=== PATIENT | female | born 1970 | race Caucasian/White ===

== ENCOUNTER 2019-09-27 11:05 | Emergency (ER) | payer MEDICARE, MEDICAID, SELFPAY ==
[2019-09-27 11:07] VITALS: BP 157/105; PULSE 104; RESP 18; O2SAT 97; BMI 21.7
--- NOTE | 2019-09-27 11:10 | ED_ITS ---
Entered by Jennifer Cervantes, acting as scribe for Rianna Schneider MD HPI - Neck Pain/Injury General: Chief Complaint: Ear Stated Complaint: NECK PAIN Time Seen by Provider: 09/27/19 11:10 Source: patient Mode of arrival: ambulatory Limitations: no limitations History of Present Illness: HPI Narrative: 49 yo female presents to ED with complaints of L ear pain and L sided neck pain. She said she woke with an ear ache yesterday and this morning woke with increased pain down the L side of her neck that radiates to the R side of her neck. She is unable to turn her head to the left. She said last week she had a lot of sinus problems so she took OTC sinus medication. complaint: neck pain and other (L ear pain) Onset (ago): day(s) (2) Place: home Radiation: right lateral Severity: severe and constant Quality: stabbing and throbbing Duration: constant Relieving factors: none Exacerbating factors: movement of neck Context: other (R ear pain and infection) Associated symptoms: Reports swollen glands; Denies headache(s) or nausea Treatments prior to arrival: none Review of Systems Const: Denies: fever or chills Eyes: Denies: change in vision ENMT: Denies: throat pain or mouth pain Card: Denies: chest pain Resp: Denies: shortness of breath GI: Denies: abdominal pain, nausea, vomiting or diarrhea : Denies: difficulty urinating Musc: Denies: back pain Skin/Breast: Denies: rash Neuro: Denies: headache or behavioral changes Psych: Denies: depression Endo: Denies: excessive urination Ba/Lymph: Denies: easy bruising All/Imm: Denies: hives PFSH ED PFSH: Statuses (acute, chronic, etc) shown below reflect problem list status as previously entered and may not be historically accurate Social History Smoking and tobacco status: current every day smoker Physical Exam Const: COMMON NORMALS: no apparent distress and healthy appearing HENMT: COMMON NORMALS: normocephalic and external nose normal HEAD & SCALP: normocephalic NOSE: external nose normal and no nasal discharge (nasal disch age) OTHER: otitis media to left ear Eye: COMMON NORMALS: PERRL PUPIL: Yes PERRL Neck/C-Spine: COMMON NORMALS: full ROM OTHER: Tenderness along left neck has pain with range of motion. Tenderness is along trapezius muscle Chest: COMMONS NORMALS: inspection of chest normal Resp: COMMON NORMALS: normal respiratory effort and clear to auscultation bilaterally AUSCULTATION: clear to auscultation bilaterally Cardio: COMMON NORMALS: regular rate and regular rhythm RATE: regular rate RHYTHM: regular rhythm GI: COMMON NORMALS: soft to palpation PALPATION: Yes soft Extremity: COMMON NORMALS: normal to inspection, full ROM and normal capillary refill Psych: COMMON NORMALS: mental status grossly normal and cooperative Skin: COMMON NORMALS: no rashes or lesions noted GENERAL SKIN EXAM: no rashes or lesions noted Course Vital Signs: Vital signs: Vital Signs Pulse Rate 104 H 09/27/19 11:07 Respiratory Rate 18 09/27/19 11:07 Blood Pressure 157/105 09/27/19 11:07 Pulse Oximetry 97 09/27/19 11:07 MDM - Neck Pain/Injury MDM Narrative: Medical decision making narrative: Patient presents with a neck sprain strain that is likely muscular. She also has an ear infection. We will place her on Naprosyn along with Robaxin and Keflex. She is to follow-up with primary care doctor in 3 to 5 days and return if worsening. Discharge Plan Discharge Patient Disposition: Home, Self-Care Clinical Impression: Neck strain Otitis media Qualifiers: Otitis media type: unspecified Chronicity: acute Qualified Code(s): H66.90 - Otitis media, unspecified, unspecified ear Condition: Stable Prescriptions: New Robaxin-750 750 mg tablet 750 mg PO Q6H Qty: 30 RF: 0 EC-Naprosyn 500 mg tablet,delayed release (DR/EC) 500 mg PO BID PRN (Reason: pain) Qty: 20 RF: 0 Keflex 500 mg capsule 500 mg PO Q6H 7 Days Qty: 28 RF: 0 No Action alprazolam 1 mg Tablet 1 mg PO BID RF: 0 mirtazapine 15 mg Tablet 15 mg PO QPM RF: 0 Cymbalta 60 mg Capsule,Delayed Release(Dr/Ec) 60 mg PO BID RF: 0 Discharge Orders: Discharge Order (Routine); Ordered 09/27/19 Ordered By: Rianna Schneider Referrals: Angie Dobbs MD [Family Provider] - 4-7 days Discharge Diet: Advance as tolerated Discharge Activity: Resume usual activity Patient Instructions: Cervical Spine Strain (ED) Discharge Date/Time: 09/27/19 11:24 Coding Level of Care Code ED Overcoiler for 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 The documentation recorded by the Helen boston Valerie R, accurately reflects the service I personally performed and the decisions made by Wyatt avendano Korby, MD Sep 27, 2019 11:05
[2019-09-27] MEDS: HYDROcodone-acetaminophen 7.5-325 mg Tablet 1 TAB PO (11:23)
== END 2019-09-27 11:24 | disposition home or self-care (01) ==
LOC: ER 11:23
PROVIDERS: Emergency Provider Emergency Medicine; Family Provider Family Medicine
DX: S16.1XXA Strain of muscle, fascia and tendon at neck level, initial encounter (principal); H66.90 Otitis media, unspecified, unspecified ear; F17.210 Nicotine dependence, cigarettes, uncomplicated; X58.XXXA Exposure to other specified factors, initial encounter
CPT/HCPCS: 99281

== ENCOUNTER 2019-09-27 17:54 | Emergency (ER) | payer MEDICARE, MEDICAID, SELFPAY ==
[2019-09-27 17:55] VITALS: RESP 16; BMI 21.7
[2019-09-27 18:06] VITALS: BP 157/99; PULSE 110; RESP 16; TEMP 36.7; O2SAT 96
[2019-09-27] MEDS: predniSONE 20 mg Tablet PO (18:18)
[2019-09-27] MEDS: ciprofloxacin 500 mg Tablet PO (18:18)
--- NOTE | 2019-10-18 02:22 | ED_ITS ---
HPI - Skin/Abscess/Foreign Bdy General: Chief complaint: Skin/Abscess/Foreign Body Stated complaint: REDNESS ON HER FACE Time Seen by Provider: 09/27/19 18:00 History of Present Illness: HPI narrative: Patient has reddened areas to her face. Onset (ago): day(s) Associated symptoms: Deny chills, fever(s), nausea or vomiting Review of Systems Narrative: Reddened areas to face Const: Denies: fever, chills or body aches Eyes: Denies: change in vision or blurry vision ENMT: Denies: throat pain or nasal congestion Card: Denies: chest pain or shortness of breath on exertion Resp: Denies: shortness of breath, productive cough or non-productive cough GI: Denies: abdominal pain, nausea or vomiting Musc: Denies: extremity pain Skin/Breast: Denies: rash Neuro: Denies: headache Psych: Denies: anxiety or depression Ba/Lymph: Denies: easy bruising PFSH ED PFSH: Social History Smoking and tobacco status: current every day smoker Physical Exam Const: COMMON NORMALS: no apparent distress, average body habitus and oriented x3 HENMT: COMMON NORMALS: normocephalic HEAD & SCALP: normal to inspection and normocephalic FACE & SINUS: normal facial exam Eye: COMMON NORMALS: conjunctivae normal GENERAL EYE: normal appearance of both eyes CONJUNCTIVA: Yes conjunctivae normal Neck/C-Spine: COMMON NORMALS: no JVD Chest: COMMONS NORMALS: inspection of chest normal Resp: COMMON NORMALS: normal respiratory effort and clear to auscultation bilaterally AUSCULTATION: clear to auscultation bilaterally Cardio: COMMON NORMALS: no JVD, regular rate and regular rhythm RATE: regular rate RHYTHM: regular rhythm GI: COMMON NORMALS: normal to inspection, nondistended, normoactive bowel sounds Extremity: COMMON NORMALS: normal to inspection and full ROM Neuro: COMMON NORMALS: oriented x3 Skin: NARRATIVE SKIN EXAM: Mild erythema to right side of face pimply in nature Course Vital Signs: Vital signs: Vital Signs Temperature 98.0 F 09/27/19 18:06 Pulse Rate 110 H 09/27/19 18:06 Respiratory Rate 16 09/27/19 18:06 Blood Pressure 157/99 09/27/19 18:06 Pulse Oximetry 96 09/27/19 18:06 Discharge Plan Discharge Patient Disposition: Home, Self-Care Clinical Impression: Hives Condition: Stable Prescriptions: New ciprofloxacin HCl 500 mg tablet 500 mg PO BID Qty: 14 RF: 0 Medrol (Jayce) 4 mg tablets,dose pack See Rx Instructions .ROUTE .COMPLEX Qty: 21 RF: 0 No Action mirtazapine 15 mg tablet 15 mg PO QPM Qty: 30 RF: 0 alprazolam 1 mg Tablet 1 mg PO BID RF: 0 Cymbalta 60 mg Capsule,Delayed Release(Dr/Ec) 60 mg PO BID RF: 0 Robaxin-750 750 mg tablet 750 mg PO Q6H Qty: 30 RF: 0 EC-Naprosyn 500 mg tablet,delayed release (DR/EC) 500 mg PO BID PRN (Reason: pain) Qty: 20 RF: 0 Flagyl 500 mg tablet 500 mg PO Q8H Qty: 30 RF: 0 Zofran 4 mg tablet 4 mg PO Q6H PRN (Reason: nausea and vomiting) Qty: 10 RF: 0 Discharge Orders: Discharge Order (Routine); Ordered 09/27/19 Ordered By: Bong Martinez Referrals: Angie Dobbs MD [Family Provider] - Discharge Diet: Usual diet Discharge Activity: Increase activity as tolerated Patient Instructions: Allergic Reaction Activity Restrictions/Additional Instructions: Follow-up with medical provider as directed. Take medications as prescribed. Return to the ER or your medical provider if condition worsens. Please read and understand discharge instructions. If any questions ask please. Stop Keflex. Discharge Date/Time: 09/27/19 18:20 Coding Level of Care Code ED Information Security for 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
== END 2019-09-27 18:20 | disposition home or self-care (01) ==
PROVIDERS: Emergency Provider Nurse Practitioner Family; Family Provider Family Medicine
DX: L50.9 Urticaria, unspecified (principal); F17.210 Nicotine dependence, cigarettes, uncomplicated
CPT/HCPCS: 99281; J7512

== ENCOUNTER 2019-10-05 03:00 | Emergency (ER) | payer MEDICARE, MEDICAID, SELFPAY ==
[2019-10-05] VITALS (18 sets, daily range): BP systolic 151–156; BP diastolic 104–119; PULSE 85–116; RESP 11–24; TEMP 36.7; O2SAT 96–97; BMI 21.7
--- NOTE | 2019-10-05 03:18 | ED_ITS ---
Entered by Yady Kaiser, acting as scribe for Bobo Mcdonald DO HPI - Abdominal Pain General: Chief Complaint: Abdominal Pain Stated Complaint: ABD PAIN Time Seen by Provider: 10/05/19 03:05 Source: patient Mode of arrival: ambulatory History of Present Illness: HPI narrative: 49 y/o female presents to the ED with complaint of abd pain and diarrhea. Pt states this started abruptly and w ruddy her from sleep. The pain starts in her LUQ/epigastric area and radiates into her left axilla and around to her back. She was recently seen here and dx with shingles. Pt states this pain is worse than the pain from the shingles. MD elicited complaint: abdominal pain Onset (ago): hour(s) Pain Consistency: constant Location: LUQ Exacerbating factors: movement Relieving factors: nothing Associated Symptoms: Reports diarrhea; Denies chills, dysuria, fever(s), hematochezia, hematuria, melena, nausea and vomiting Review of Systems Const: Denies: fever or chills Eyes: Denies: change in vision or blurry vision ENMT: Reports: facial/sinus pain; Denies: painful swallowing, swelling of lips/tongue, bleeding gums, dental pain, nose bleeds or post nasal drip Card: Denies: chest pain, palpitations, irregular heart rhythm, edema, swelling of feet/ankles, shortness of breath on exertion or shortness of breath when lying down Resp: Denies: shortness of breath, productive cough, non-productive cough or wheezing GI: Reports: abdominal pain (epigastric/ LUQ) and diarrhea; Denies: nausea, vomiting, rectal pain, blood in stool or black tarry stool : Denies: painful urination, urinary frequency, urinary urgency or blood in urine Musc: Reports: back pain; Denies: neck pain, redness or joint warmth Skin/Breast: Reports: rash (shingles - left face); Denies: itching or redness Neuro: Denies: headache, dizziness or vertigo PFSH ED PFSH: Statuses (acute, chronic, etc) shown below reflect problem list status as previously entered and may not be historically accurate Social History Smoking and tobacco status: current every day smoker Physical Exam Const: GENERAL APPEARANCE: well developed ORIENTATION/CONSCIOUSNESS: Yes oriented to person, Yes oriented to place and Yes oriented to time DONNAMT: COMMON NORMALS: normocephalic, external ears normal and external nose normal HEAD & SCALP: normocephalic; no scalp tenderness FACE & SINUS: normal facial exam NOSE: external nose normal and no nasal discharge EXTERNAL EAR: Yes external ears normal Eye: COMMON NORMALS: PERRL, EOMs intact bilaterally and conjunctivae normal EYELID: eyelids normal CONJUNCTIVA: Yes conjunctivae normal PUPIL: Yes PERRL Neck/C-Spine: COMMON NORMALS: full ROM GENERAL: No tracheal deviation Chest: CHEST: Yes tenderness (epigastric) Resp: COMMON NORMALS: clear to auscultation bilaterally EFFORT & INSPECTION: No tachypneic, No respiratory distress, No retractions, No uses accessory muscles and No tracheal deviation AUSCULTATION: clear to auscultation bilaterally, no rhonchi, no wheezes and lung sounds not diminished Cardio: COMMON NORMALS: regular rate and regular rhythm RATE: regular rate RHYTHM: regular rhythm HEART SOUNDS: no murmurs PERIPHERAL PULSES: radial pulses present GI: COMMON NORMALS: soft to palpation INSPECTION: No abdominal distension AUSCULTATION: No hyperactive bowel sounds and No hypoactive bowel sounds PALPATION: Yes soft, Yes tender (LUQ), No guarding and No rigid PERCUSSION: no dullness to percussion and no tympanic to percussion Neuro: SENSORIUM/ORIENTATION: Yes oriented to person, Yes oriented to place and Yes oriented to time Psych: APPEARANCE: Yes unkempt ACTIVITY/MOTOR BEHAVIOR: Yes fidgeting Skin: NARRATIVE SKIN EXAM: shingles (vesicular) rash to left face and neck Course ED course: 49-year-old lady who is here frequently. She complains of epigastric mainly belly pain radiating into her back. Also radiates around her left side. Her white blood cell count was elevated. Her other labs are benign. Her CT shows an intermittent fluid distention of the small bowel indicative of mild enteritis with ileus. There is no obstruction. Vital Signs: Vital signs: Vital Signs Temperature 98.1 F 10/05/19 03:16 Pulse Rate 91 10/05/19 05:05 Respiratory Rate 17 10/05/19 05:05 Blood Pressure 151/107 10/05/19 04:00 Pulse Oximetry 96 10/05/19 03:45 MDM - Abdominal Pain Lab Data: Labs: Lab Results 10/05/19 10/05/19 10/05/19 Range/Units 03:50 04:25 04:25 WBC 16.3 H (4.0-10.0) 10^3/ uL RBC 3.87 L (4.1-5.3) 10^6/u L Hgb 11.3 L (11.5-15.3) g/dL Hct 34.9 L (37.0-47.0) % MCV 90.2 (81-99) fL MCH 29.2 (28.0-34.0) pg MCHC 32.4 (30.0-36.0) g/dL RDW 15.9 H (12.1-15.1) % Plt Count 404 H (130-400) 10^3/c mm MPV 9.3 (7.4-10.4) fL Neut % (Auto) 74.7 % Lymph % (Auto) 15.2 % Meagher % (Auto) 6.5 % Eos % (Auto) 2.8 % Baso % (Auto) 0.2 % Neut # (Auto) 12.2 H (1.8-7.7) 10^3/u L Lymph # (Auto) 2.5 (0.8-4.8) 10^3/u L Meagher # (Auto) 1.1 H (0.2-0.9) 10^3/u L Eos # (Auto) 0.5 (0.0-0.8) 10^3/u L Baso # (Auto) 0.0 (0.0-0.1) 10^3/u L Nucleated RBC % (a uto) 0 % Nucleated RBCs # 0.0 /100WBC Sodium 135 L (136-145) mmol/L Potassium 4.1 (3.5-5.1) mmol/L Chloride 100 (98-107) mmol/L Carbon Dioxide 25 (22-29) mmol/L Anion Gap 14.1 (5-19) BUN 19 (6-20) mg/dL Creatinine 0.8 (0.5-0.9) mg/dL GFR Calculation 75.6 L (90-130) mL/min Glucose 107 (74-109) mg/dL Calcium 9.0 (8.5-10.5) mg/dL Total Bilirubin 0.2 (0.15-1.2) mg/dL AST 19 (0-32) U/L ALT 12 (0-33) U/L Alkaline Phosphata se 105 (35-105) IU/L C-Reactive Protein 6.2 H (0.0-4.9) mg/L Total Protein 7.4 (6.6-8.7) g/dL Albumin 3.9 (3.5-5.2) g/dL Globulin 3.5 (1.3-4.6) g/dL Lipase 44 (13-60) U/L HCG, Qual (Negative) Urine Color Yellow (Yellow) Urine Appearance Clear (CLEAR) Urine pH 5 (5-7) Ur Specific Gravit y 1.020 (1.005-1.030) Urine Protein Neg (Negative) Urine Glucose (UA) Norm (Normal) Urine Ketones Negative (Negative) Urine Occult Blood Neg (Negative) Urine Nitrate Negative (Negative) Urine Bilirubin Neg (NEGATIVE) Urine Urobilinogen Norm (Negative) mg/dL Ur Leukocyte Destiny ase Negative (Negative) Urine Opiates Scre en (Negative) ng/mL Ur Barbiturates Sc reen (Negative) ng/mL Ur Phencyclidine S crn (Negative) ng/mL Ur Amphetamines Sc reen (Negative) ng/mL U Benzodiazepines Scrn (Negative) ng/mL Urine Cocaine Scre en (Negative) ng/mL U Marijuana (THC) Screen (Negative) ng/mL 10/05/19 10/05/19 Range/Units 04:25 04:30 WBC (4.0-10.0) 10^3/ uL RBC (4.1-5.3) 10^6/u L Hgb (11.5-15.3) g/dL Hct (37.0-47.0) % MCV (81-99) fL MCH (28.0-34.0) pg MCHC (30.0-36.0) g/dL RDW (12.1-15.1) % Plt Count (130-400) 10^3/c mm MPV (7.4-10.4) fL Neut % (Auto) % Lymph % (Auto) % Meagher % (Auto) % Eos % (Auto) % Baso % (Auto) % Neut # (Auto) (1.8-7.7) 10^3/u L Lymph # (Auto) (0.8-4.8) 10^3/u L Meagher # (Auto) (0.2-0.9) 10^3/u L Eos # (Auto) (0.0-0.8) 10^3/u L Baso # (Auto) (0.0-0.1) 10^3/u L Nucleated RBC % (a uto) % Nucleated RBCs # /100WBC Sodium (136-145) mmol/L Potassium (3.5-5.1) mmol/L Chloride (98-107) mmol/L Carbon Dioxide (22-29) mmol/L Anion Gap (5-19) BUN (6-20) mg/dL Creatinine (0.5-0.9) mg/dL GFR Calculation (90-130) mL/min Glucose (74-109) mg/dL Calcium (8.5-10.5) mg/dL Total Bilirubin (0.15-1.2) mg/dL AST (0-32) U/L ALT (0-33) U/L Alkaline Phosphata se (35-105) IU/L C-Reactive Protein (0.0-4.9) mg/L Total Protein (6.6-8.7) g/dL Albumin (3.5-5.2) g/dL Globulin (1.3-4.6) g/dL Lipase (13-60) U/L HCG, Qual Negative (Negative) Urine Color (Yellow) Urine Appearance (CLEAR) Urine pH (5-7) Ur Specific Gravit y (1.005-1.030) Urine Protein (Negative) Urine Glucose (UA) (Normal) Urine Ketones (Negative) Urine Occult Blood (Negative) Urine Nitrate (Negative) Urine Bilirubin (NEGATIVE) Urine Urobilinogen (Negative) mg/dL Ur Leukocyte Destiny ase (Negative) Urine Opiates Scre en Negative (Negative) ng/mL Ur Barbiturates Sc reen Negative (Negative) ng/mL Ur Phencyclidine S crn Negative (Negative) ng/mL Ur Amphetamines Sc reen Negative (Negative) ng/mL U Benzodiazepines Scrn Negative (Negative) ng/mL Urine Cocaine Scre en Negative (Negative) ng/mL U Marijuana (THC) Screen Positive H (Negative) ng/mL Discharge Plan Discharge Patient Disposition: Home, Self-Care Clinical Impression: Enteritis Condition: Stable Prescriptions: New metronidazole [Flagyl] 500 mg tablet 500 mg PO Q8H Qty: 30 RF: 0 ondansetron HCl [Zofran] 4 mg tablet 4 mg PO Q6H PRN (Reason: nausea and vomiting) Qty: 10 RF: 0 ketorolac 10 mg tablet 10 mg PO Q6H PRN (Reason: pain) 3 Days RF: 0 No Action alprazolam 1 mg Tablet 1 mg PO BID RF: 0 mirtazapine 15 mg Tablet 15 mg PO QPM RF: 0 Cymbalta 60 mg Capsule,Delayed Release(Dr/Ec) 60 mg PO BID RF: 0 Robaxin-750 750 mg tablet 750 mg PO Q6H Qty: 30 RF: 0 EC-Naprosyn 500 mg tablet,delayed release (DR/EC) 500 mg PO BID PRN (Reason: pain) Qty: 20 RF: 0 ciprofloxacin HCl 500 mg tablet 500 mg PO BID Qty: 14 RF: 0 Medrol (Jayce) 4 mg tablets,dose pack See Rx Instructions .ROUTE .COMPLEX Qty: 21 RF: 0 Discharge Orders: Discharge Order (Routine); Ordered 10/05/19 Ordered By: Bobo Mcdonald Referrals: Angie Dobbs MD [Family Provider] - 4-7 days Discharge Diet: Advance as tolerated and Clear Liquid Discharge Activity: Increase activity as tolerated Patient Instructions: Gastroenteritis (ED) Activity Restrictions/Additional Instructions: Return for fever greater than 100 despite 3 doses of antibiotics, worsening pain despite treatment, vomiting liquids or medications despite treatment, other concerning symptoms. Stop your Naprosyn (naproxen) while taking the pain medication you were prescribed. Coding Level of Care Code ED Vitreo Retinal Surgeon for Chg Fwd The documentation recorded by the Job boston Ashley, accurately reflects the service I personally performed and the decisions made by Harry avendano Jeremy John, DO Oct 05, 2019 03:00
--- NOTE | 2019-10-05 03:43 | CTR_ITS ---
PROCEDURE INFORMATION: Exam: CT Abdomen And Pelvis With Contrast Exam date and time: 10/05/2019 4:15 AM Age: 49 years old Clinical indication: Abdominal pain; Epigastric; Prior surgery; Surgery date: 6+ months; Surgery type: Gb, pelvis; Additional info: Abd pain TECHNIQUE: Imaging protocol: Computed tomography of the abdomen and pelvis with intravenous contrast. Total DLP: 587.13 mGy-cm Radiation optimization: All CT scans at this facility use at least one of these dose optimization techniques: automated exposure control; mA and/or kV adjustment per patient size (includes targeted exams where dose is matched to clinical indication); or iterative reconstruction. Contrast material: OMNI 300; Contrast volume: 95 ml; Contrast route: IV; COMPARISON: CT abdomen pelvis w con* [id number] 04/27/2019 9:40 AM FINDINGS: Lungs: Lung bases are clear. Liver: The liver is normal. Gallbladder and bile ducts: The gallbladder is absent. There is ectasia of the common bile duct and central intrahepatic ducts. Pancreas: The pancreas is unremarkable. Spleen: The spleen is unremarkable. Adrenals: The adrenal glands are unremarkable. Kidneys and ureters: There are simple cysts in the left kidney measuring up to 16 mm diameter. No follow-up is indicated. The right kidney and ureter are unremarkable. There is no hydronephrosis. No stones. Stomach and bowel: The stomach is unremarkable. Distal small bowel is mildly diffusely fluid distended. Proximal small bowel is intermittently distended. There is no bob small-bowel dilation. No pathologic wall thickening. The colon is unremarkable. Appendix: The appendix is normal. Intraperitoneal space: There is no free air or significant intraperitoneal free fluid. Vasculature: There is mild aortic atherosclerotic disease. Lymph nodes: There is no lymphadenopathy in the retroperitoneum, mesentery, pelvis or inguinal regions. Bladder: The urinary bladder is unremarkable. Reproductive: The uterus is absent. There is no adnexal mass or large cyst. Bones/joints: There is mild lumbar degenerative disc disease. Reconstruction plates and screws in the pelvis. No acute fracture. Normal femoral acetabular alignment. Soft tissues: There is a very small midline upper abdominal ventral hernia containing fat. CT/CT abdomen pelvis w con* [id number] IMPRESSION: 1. Nonspecific intermittent fluid distention of the small bowel. Normal versus mild enteritis with ileus. No sign of obstruction. 2. Incidental findings above. COMMENT: Consistent with the [employer]'s Incidental Findings Committee white paper (J Am Marga Radiol 2018): Any incidental cystic renal lesion classified in this report as too small to characterize or simple appearing is likely a benign cyst. No follow-up imaging is recommended for these lesions per consensus recommendations based on imaging criteria. Radiation Dose CTDIVOL = (mGy): DLP = 587.13 (mGy-cm)
[2019-10-05] MEDS: iohexol 300 mg/mL 100 mL Btl IV (04:16)
[2019-10-05] MEDS: HYDROmorphone 1 mg/mL INJ 1 mL IVP ×2 (04:30→06:07)
[2019-10-05] MEDS: ketorolac 30 mg/mL INJ IVP (04:30)
[2019-10-05 04:34] LABS: Basophils % 0.2 %; Eosinophils # 0.5 10^3/uL (0.0-0.8); Eosinophils % 2.8 %; Hematocrit 34.9 % (37.0-47.0); Hemoglobin 11.3 g/dL (11.5-15.3); Lymphocytes # 2.5 10^3/uL (0.8-4.8); Lymphocytes % 15.2 %; Mean Corpuscular HGB Conc 32.4 g/dL (30.0-36.0); Mean Corpuscular Hemoglobin 29.2 pg (28.0-34.0); Mean Corpuscular Volume 90.2 fL (81-99); Mean Platelet Volume 9.3 fL (7.4-10.4); Monocytes # 1.1 10^3/uL (0.2-0.9); Monocytes % 6.5 %; Neutrophils # 12.2 10^3/uL (1.8-7.7); Neutrophils % 74.7 %; Nucleated Red Blood Cells % 0 %; Platelet Count 404 10^3/cmm (130-400); Red Blood Count 3.87 10^6/uL (4.1-5.3); Red Cell Distribution Width 15.9 % (12.1-15.1); White Blood Count 16.3 10^3/uL (4.0-10.0)
[2019-10-05 04:42] LABS: HCG, Serum Qual Negative (Negative)
[2019-10-05 04:45] LABS: Add Urine Microscopic? NO
[2019-10-05 04:47] LABS: Alanine Aminotransferase 12 U/L (0-33); Albumin Level 3.9 g/dL (3.5-5.2); Alkaline Phosphatase 105 IU/L (35-105); Anion Gap 14.1 (5-19); Aspartate Amino Transferase 19 U/L (0-32); Blood Urea Nitrogen 19 mg/dL (6-20); Carbon Dioxide 25 mmol/L (22-29); Chloride 100 mmol/L (98-107); Creatinine Clr Calc Pharmacy 78.8993; Globulin 3.5 g/dL (1.3-4.6); Glomerular Filtration Rate 75.6 mL/min (90-130); Glucose 107 mg/dL (74-109); Lipase 44 U/L (13-60); Potassium 4.1 mmol/L (3.5-5.1); Sodium 135 mmol/L (136-145); Total Bilirubin 0.2 mg/dL (0.15-1.2); Total Protein 7.4 g/dL (6.6-8.7)
[2019-10-05 04:53] LABS: Bilirubin Urine Neg (NEGATIVE); Blood Urine Neg (Negative); Glucose Urine UA Norm (Normal); Ketones Urine Negative (Negative); Leukocyte Esterase Urine Negative (Negative); Nitrate Urine Negative (Negative); Protein Urine Neg (Negative); Urine Appearance Clear (CLEAR); Urine Color Yellow (Yellow); Urobilinogen Urine Norm (Negative); pH Urine 5 (5-7)
[2019-10-05] MEDS: sodium chloride 0.9% 1,000 ML 999 ML IV (04:57)
[2019-10-05] MEDS: ondansetron 2 mg/ML SDV 2 mL 4 MG IVP (04:57)
[2019-10-05 05:12] LABS: C Reactive Protein 6.2 mg/L (0.0-4.9)
[2019-10-05 05:14] LABS: Amphetamines Screen Urine Negative (Negative); Barbiturates Screen Urine Negative (Negative); Benzodiazepines Screen Urine Negative (Negative); Cocaine Screen Urine Negative (Negative); Opiate Screen Urine Negative (Negative); PCP Screen Urine Negative (Negative); THC Screen Urine Positive (Negative)
[2019-10-05] MEDS: metroNIDAZOLE 500 MG Tablet PO (06:06)
== END 2019-10-05 06:50 | disposition home or self-care (01) ==
PROVIDERS: Emergency Provider Emergency Medicine; Family Provider Family Medicine
DX: K52.9 Noninfective gastroenteritis and colitis, unspecified (principal); F17.210 Nicotine dependence, cigarettes, uncomplicated
CPT/HCPCS: 74177; 80053; 80307; 81003; 83690; 84703; 85025; 86140; 96360; 96361; 96374; 96375; 96376; 99283; J1170; J1885; J2405; J7030; Q9967

== ENCOUNTER → 2019-11-11 13:06 | Outpatient (BNVA) | payer MEDICARE, MEDICAID, SELFPAY | PROVIDERS: Family Provider Family Medicine; Visit Provider Nurse Practitioner | DX: F12.20 Cannabis dependence, uncomplicated (principal); F43.12 Post-traumatic stress disorder, chronic; F33.41 Major depressive disorder, recurrent, in partial remission | CPT/HCPCS: 99214 ==

== ENCOUNTER 2020-01-01 20:30 | Emergency (ER) | payer MEDICARE, MEDICAID, SELFPAY ==
[2020-01-01 20:43] VITALS: BP 137/95; PULSE 114; RESP 14; TEMP 36.5; O2SAT 94; BMI 21.7
--- NOTE | 2020-01-01 22:03 | XRR_ITS ---
PROCEDURE INFORMATION: Exam: XR Left Hand Exam date and time: 01/01/2020 10:16 PM Age: 49 years old Clinical indication: Pain; Hand; Left; Additional info: Injury TECHNIQUE: Imaging protocol: XR Left hand. Views: 3 or more views. COMPARISON: CR Finger LEFT [id number] 08/20/2017 4:37 PM FINDINGS: Bones/joints: Proximal lunate subchondral degenerative change. 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 Soft tissues: Normal. XR/XR hand LT min 3V* [id number] IMPRESSION: 1. Negative for fracture or dislocation. 2. Proximal lunate subchondral degenerative change. 3. 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
--- NOTE | 2020-01-01 22:56 | W.ED.EXTPRO ---
HPI - Extremity Problem General: Chief complaint: Extremity Injury, Upper Stated complaint: l hand injury Time Seen by Provider: 01/01/20 22:56 History of Present Illness: HPI Narrative: Patient is a 49-year-old female comes in the ED with left hand pain. Patient states that she was putting in fence posts and she smashed her left hand between post and hammer right over the left thumb and index finger area. She is having pain in her left index finger and left thumb, but is still able to move both of them. Associated symptoms: Deny chest pain, fever(s) or rash Review of Systems Const: Denies: fever, chills or fatigue Eyes: Denies: change in vision or eye discomfort ENMT: Denies: throat pain, painful swallowing, nasal discharge or nasal congestion Card: Denies: chest pain, palpitations, edema, swelling of feet/ankles, shortness of breath on exertion or shortness of breath when lying down Resp: Denies: shortness of breath, productive cough or non-productive cough GI: Denies: abdominal pain, nausea, vomiting, diarrhea, constipation or blood in stool : Denies: flank pain, painful urination or blood in urine Musc: Reports: extremity pain (pain in left thumb and index finger); Denies: neck pain, back pain or extremity swelling Skin/Breast: Denies: rash or new lesion Neuro: Denies: headache, numbness in extremities or weakness in extremities PFS ED PFSH: Medical History Cannabis dependence, uncomplicated Major depressive disorder, recurrent, in partial remission Post-traumatic stress disorder, chronic Social History Smoking and tobacco status: current every day smoker cigarettes Packs smoked per day: 1 Smoking risk assessment/counseling performed?: Yes Tobacco counseling given: counseling >3 minutes Physical Exam Const: COMMON NORMALS: no apparent distress, oriented x3 and alert GENERAL APPEARANCE: cooperative HENMT: COMMON NORMALS: normocephalic HEAD & SCALP: normocephalic MOUTH: oral and palatal mucosa normal THROAT: posterior oropharynx normal and uvula midline Eye: COMMON NORMALS: PERRL PUPIL: Yes PERRL Neck/C-Spine: COMMON NORMALS: supple GENERAL: Yes normal visual inspection Resp: COMMON NORMALS: normal respiratory effort, no retractions, no use of accessory muscles and clear to auscultation bilaterally AUSCULTATION: clear to auscultation bilaterally Cardio: COMMON NORMALS: regular rate, regular rhythm, S1 normal heart sound, S2 normal heart sound, no gallops, no clicks, no murmurs and peripheral pulses 2+ throughout RATE: regular rate RHYTHM: regular rhythm HEART SOUNDS: S1 normal and S2 normal PERIPHERAL PULSES: pulses 2+ throughout GI: COMMON NORMALS: normal to inspection, nondistended, normoactive bowel sounds, soft to palpation, non-tender and no masses PALPATION: Yes soft : COMMON NORMALS: Yes no CVA tenderness BLADDER/KIDNEY EXAM: Yes no CVA tenderness Back/Pelvis: COMMON NORMALS: no CVA tenderness Extremity: COMMON NORMALS: normal capillary refill LEFT UPPER EXTREMITY: Yes hand & digits Left hand and digits: Yes inspection (unremarkable, no swelling or erythema), Yes palpation (tenderness over thumb and index finger.), Yes ROM (Full), Yes neurovascular exam (intact) and Yes tendon exam (intact) Neuro: COMMON NORMALS: oriented x3 and moves all extremities SENSORIUM/ORIENTATION: Yes alert Skin: COMMON NORMALS: no rashes or lesions noted GENERAL SKIN EXAM: no rashes or lesions noted and dry skin Course Vital Signs: Vital signs: Vital Signs Temperature 97.7 F 01/01/20 20:43 Pulse Rate 68 01/02/20 00:04 Respiratory Rate 18 01/02/20 00:04 Blood Pressure 112/82 01/02/20 00:04 Pulse Oximetry 98 01/02/20 00:04 MDM - Extremity (Nontraumatic) MDM Narrative: Medical decision making narrative: Patient is a 49-year-old female comes to the ED with left hand pain. Physical exam showed moderate to severe tenderness upon palpation of the thumb and index finger. No deformity, swelling, ecchymosis. Patient was able to move both left thumb and index finger but it did cause pain. X-ray was performed and a nondisplaced fracture of the proximal head of the second metacarpal digit was seen. Patient was put in a thumb spica splint and an orthopedic referral order was placed with case management. Patient was given a written prescription of [place] to help with the pain. I told patient that [facility] [place] should be contacting them in the next several days to set up an appointment. Patient was told to limit use of left hand and to leave splint on until evaluated by orthopedic doctor. Patient understood and agreed with plan. Imaging Data^: Xray Ortho: Attestation: I personally reviewed and interpreted this imaging study as follows: My impression: X-ray of left hand?nondisplaced fracture of the proximal head of metacarpal second digit. Radiologist's impression: [address] [address] XRay Report Signed Patient: Gladis Kraft Unit #: [id number] : 10/31/1959 Age/Sex: 60 / F ADM Date: 01/01/20 Loc: ER Room/Bed: Attending Dr: Ordering Provider/Ordering MD: Bobo Mcdonald DO Date of Service: 01/01/20 Procedure(s): XR chest 1V portable [id number] Accession Number(s): [id number] Report Number: [id number] PROCEDURE INFORMATION: Exam: XR Chest, 1 View Exam date and time: 01/01/2020 11:01 PM Age: 60 years old Clinical indication: Chest pain; Prior surgery; Surgery type: Stents, loop recorder; Additional info: Cp TECHNIQUE: Imaging protocol: XR of the chest Views: 1 view. COMPARISON: CR Chest 1 [place] [id number] 08/30/2015 11:10 PM FINDINGS: Tubes, catheters and devices: Electronic device suggestive of loop recorder is noted over the cardiac shadow. Heart size is normal. Mediastinum is unremarkable. Lungs: Unremarkable. No consolidation. Pleural space: No pneumothorax. Heart/Mediastinum: See Tubes, catheters and devices finding. Bones/joints: No acute findings. XR/XR chest 1V portable [id number] IMPRESSION: No acute findings. Dictated By: Oni Perez MD Signed By: Oni Perez MD Signed Date/Time: 01/01/202324 DD/ 23 Discharge Plan Discharge Patient Disposition: Home, Self-Care Clinical Impression: Fracture of metacarpal base of left hand, closed Qualifiers: Encounter type: initial encounter Metacarpal bone: second Fracture alignment: nondisplaced Qualified Code(s): S62.341A - Nondisplaced fracture of base of second metacarpal bone, left hand, initial encounter for closed fracture Condition: Stable Prescriptions: No Action hydroxyzine HCl 25 mg tablet 25 mg PO TID PRN (Reason: anxiety) Qty: 90 RF: 1 Cymbalta 60 mg capsule,delayed release(DR/EC) 60 mg PO BID Qty: 60 RF: 2 mirtazapine 15 mg tablet 15 mg PO QPM Qty: 30 RF: 0 Robaxin-750 750 mg tablet 750 mg PO Q6H Qty: 30 RF: 0 EC-Naprosyn 500 mg tablet,delayed release (DR/EC) 500 mg PO BID PRN (Reason: pain) Qty: 20 RF: 0 ciprofloxacin HCl 500 mg tablet 500 mg PO BID Qty: 14 RF: 0 Medrol (Jayce) 4 mg tablets,dose pack See Rx Instructions .ROUTE .COMPLEX Qty: 21 RF: 0 Flagyl 500 mg tablet 500 mg PO Q8H Qty: 30 RF: 0 Zofran 4 mg tablet 4 mg PO Q6H PRN (Reason: nausea and vomiting) Qty: 10 RF: 0 Discharge Orders: Discharge Order (Routine); Ordered 01/01/20 Ordered By: Remy Wolfe Referrals: Angie Dobbs MD [Family Provider] - Discharge Diet: Regular Discharge Activity: Limit activity as instructed Patient Instructions: Hand Fracture (ED) Activity Restrictions/Additional Instructions: [facility] [place] should be contacting you in the next several days to set up an appointment. You can apply ice to help relieve symptoms. Sending you home with a prescription for hydrocodone to use for breakout pain. Take [id number] ibuprofen 600 mg 3 times a day to help with pain. Wear splint until seen by orthopedic doctor. Limit use of left hand until evaluated by orthopedic doctor. Discharge Date/Time: 01/02/20 00:08 Coding Level of Care Code ED Steward/Stewardess Economy Class for Petrona Fwhumberto Exam Comprehensive
[2020-01-01 23:03] VITALS: PULSE 72
[2020-01-01] MEDS: HYDROcodone-acetaminophen 7.5-325 mg Tablet 1 TAB PO (23:47)
--- NOTE | 2020-01-01 23:57 | PC.NURSE ---
Pt placed in a thumb spica splint on L hand. Pt had SMCs intact prior and post splinting pt tolerated procedure well.
[2020-01-02 00:04] VITALS: BP 112/82; PULSE 68; RESP 18; O2SAT 98
--- NOTE | 2020-01-04 12:25 | DCPLANNER ---
coding manager had message to schedule a follow up appointment for patient with ortho. stadium manager called the ortho clinic, spoke with Angie, gave clinic patients information. stadium manager was told that patients information would be printed and reviewed. Clinic will call protective services case worker and patient with appointment information.
--- NOTE | 2020-01-06 14:22 | DCPLANNER ---
Patient had a follow up appointment scheduled for 01.05.20 at ortho, with Dr. Castaneda. Patient did attend the appointment.
== END 2020-01-02 00:08 | disposition home or self-care (01) ==
PROVIDERS: Emergency Provider Physician Assistant; Family Provider Family Medicine
DX: S62.341A Nondisplaced fracture of base of second metacarpal bone, left hand, initial encounter for closed fracture (principal); W23.0XXA Caught, crushed, jammed, or pinched between moving objects, initial encounter; F17.210 Nicotine dependence, cigarettes, uncomplicated
CPT/HCPCS: 12345; 73130; 99281; 99283

== ENCOUNTER 2020-01-05 15:24 | Outpatient (CLI) | payer MEDICARE, MEDICAID, SELFPAY | END 2020-01-05 15:25 | disposition home or self-care (01) | LOC: SPT 15:25 | PROVIDERS: Family Provider Family Medicine; Visit Provider Orthopaedic Surgery | DX: Z46.89 Encounter for fitting and adjustment of other specified devices (principal); S63.642D Sprain of metacarpophalangeal joint of left thumb, subsequent encounter; X58.XXXD Exposure to other specified factors, subsequent encounter | CPT/HCPCS: L3809 ==

== ENCOUNTER 2020-02-09 17:41 | Outpatient (CLI) | payer MEDICARE, MEDICAID, SELFPAY ==
--- NOTE | 2020-02-09 | XR_ITS ---
WS: [id number] Right elbow, 02/09/2020 Clinical Data: PAIN Comparison: None. Findings: No fractures or dislocations are seen. The radial head is normal. The soft tissues are unremarkable. XR/XR elbow RT min 3V* [id number] Impression: Negative right elbow.
--- NOTE | 2020-02-09 | XR_ITS ---
WS: [id number] Pelvis, AP view, 02/09/2020 Clinical Data: PAIN Comparison: AP pelvis, 11/18/2012. Findings: The patient has had a bone graft taken from the lateral aspect of the right ilium. The patient has had a complex repair of a pelvic fracture including transverse orthopedic screws acr oss both SI joints, an oblique plate at the left SI joint and 2 oblique screws in the superior pubic rami. XR/XR pelvis 1-2V* [id number] Impression: 1. Bone graft site at lateral aspect of right ilium. 2. Orthopedic repair of complex pelvic fracture.
== END 2020-02-09 17:42 | disposition home or self-care (01) ==
PROVIDERS: Family Provider Family Medicine; Visit Provider Nurse Practitioner Family
DX: R10.2 Pelvic and perineal pain (principal); M25.521 Pain in right elbow
CPT/HCPCS: 72170; 73080

== ENCOUNTER → 2020-04-20 12:56 | Outpatient (BNVA) | payer MEDICARE, MEDICAID, SELFPAY | PROVIDERS: Family Provider Family Medicine; PCP Nurse Practitioner Family; Referring Provider Nurse Practitioner Family; Visit Provider Dermatology | DX: L40.9 Psoriasis, unspecified (principal); F17.210 Nicotine dependence, cigarettes, uncomplicated | CPT/HCPCS: 99203; 99204 ==

== ENCOUNTER 2020-08-08 07:17 | Emergency (ER) | payer MEDICARE, MEDICAID, SELFPAY ==
[2020-08-08 07:20] VITALS: BP 154/99; PULSE 94; RESP 18; TEMP 37; O2SAT 96; BMI 21.7
--- NOTE | 2020-08-08 07:39 | W.ED.NAVMDI ---
HPI - Nausea/Vomiting/Diarrhea General: Chief complaint: Nausea/Vomiting/Diarrhea Stated complaint: N/V X 3 DAYS Time Seen by Provider: 08/08/20 07:32 History of Present Illness: HPI Narrative: Patient arrives via ambulance with complaint about vomiting going on since Saturday. Patient has a history of chronic vomiting related to cannabis abuse. Patient says she is out of Phenergan so she was unable to have the medication intake. Ambulance gave her IM Zofran patient denies any other problems MD elicited complaint: vomiting Pertinent past history: cyclical vomiting Onset (ago): day(s) Description of vomiting: food contents and bilious Associated nausea: Yes Associated abdominal pain: No Location of pain: None Associated symtoms: Reports nausea; Denies anxiety, change in vision, chest pain or headache(s) Review of Systems Const: Denies: fever(s), chills or body aches Eyes: Denies: change in vision or blurry vision ENMT: Denies: throat pain or nasal congestion Card: Denies: chest pain or dyspnea on exertion Resp: Denies: dyspnea, productive cough or non-productive cough GI: Reports: nausea and vomiting Musc: Denies: extremity pain Skin/Breast: Denies: rash Neuro: Denies: headache(s) Psych: Denies: anxiety or depression Ba/Lymph: Denies: easy bruising PFSH ED PFSH: Medical History (Updated 08/08/20 @ 09:30 by LISA Loera) Cannabis dependence, uncomplicated Major depressive disorder, recurrent, in partial remission Post-traumatic stress disorder, chronic Social History Smoking and tobacco status: current every day smoker cigarettes Packs smoked per day: 1 Smoking risk assessment/counseling performed?: Yes Tobacco counseling given: counseling >3 minutes Physical Exam Const: COMMON NORMALS: no acute distress, average body habitus and patient oriented x3 HENMT: COMMON NORMALS: normocephalic HEAD & SCALP: normal to inspection and normocephalic FACE & SINUS: normal facial exam Eye: COMMON NORMALS: conjunctivae normal GENERAL EYE: appearance normal, both eyes and all related structures CONJUNCTIVA: Yes conjunctivae normal Neck/C-Spine: COMMON NORMALS: no JVD Chest: COMMONS NORMALS: normal inspection of the chest Resp: COMMON NORMALS: normal respiratory effort and clear to auscultation bilaterally AUSCULTATION: clear to auscultation bilaterally Cardio: COMMON NORMALS: no JVD, regular rate and regular rhythm RATE: regular rate RHYTHM: regular rhythm GI: COMMON NORMALS: Normal to inspection, nondistended, normoactive bowel sounds present Extremity: COMMON NORMALS: normal to inspection and full ROM Neuro: COMMON NORMALS: patient oriented x3 Course Vital Signs: Vital signs: Vital Signs Temperature 98.6 F 08/08/20 07:20 Pulse Rate 94 08/08/20 07:20 Respiratory Rate 18 08/08/20 07:20 Blood Pressure 154/99 08/08/20 07:20 Pulse Oximetry 96 08/08/20 07:20 MDM - Nausea/Vomiting/Diarrhea MDM Narrative: Medical decision making narrative: On exam patient denied marijuana use for 4 years. Yes patient felt guilty about it later called me into the room said yes she has been using marijuana daily for many many years. Said she is out of her Phenergan. Would like to have something again patient is refusing all blood test. Patient is aware that marijuana use and her cyclic vomiting are related. Discharge Plan Discharge Patient Disposition: Home Clinical Impression: Cyclic vomiting syndrome, Cannabis abuse with physiological dependence Condition: Stable Prescriptions: New promethazine 12.5 mg tablet 12.5 mg PO TID PRN (Reason: nausea and vomiting) Qty: 14 RF: 0 Discontinued hydroxyzine HCl 25 mg tablet 25 mg PO TID PRN (Reason: anxiety) Qty: 90 RF: 1 ondansetron HCl [Zofran] 4 mg tablet 4 mg PO Q6H PRN (Reason: nausea and vomiting) Qty: 10 RF: 0 No Action (DME) thumb spica splint Qty: 1 RF: 0 Robaxin-750 750 mg tablet 750 mg PO Q6H RF: 0 calcium carbonate-vitamin D3 [Calcium 600 with Vitamin D3] 600 mg(1,500mg) -500 unit capsule PO RF: 0 multivitamin [Daily Multi-Vitamin] Tablet 1 tab PO DAILY RF: 0 gabapentin 100 mg capsule 100 mg PO TID RF: 0 triamcinolone acetonide 0.1 % ointment 1 applic TOPICAL BID Qty: 80 RF: 1 mometasone 0.1 % solution 1 applic TOPICAL DAILY Qty: 60 RF: 2 hydrocortisone 2.5 % ointment 1 applic TOPICAL BID Qty: 28.35 RF: 0 Cymbalta 60 mg capsule,delayed release(DR/EC) 60 mg PO BID Qty: 60 RF: 0 mirtazapine 15 mg tablet 15 mg PO QPM Qty: 30 RF: 0 EC-Naprosyn 500 mg tablet,delayed release (DR/EC) 500 mg PO BID PRN (Reason: pain) Qty: 20 RF: 0 Medrol (Jayce) 4 mg tablets,dose pack See Rx Instructions .ROUTE .COMPLEX Qty: 21 RF: 0 Discharge Orders: Discharge ED (Routine); Ordered 08/08/20 Ordered By: Ovidio Martinez Referrals: Tom Dan NP [Primary Care Provider] - Discharge Diet: Usual diet Discharge Activity: Increase activity as tolerated Patient Instructions: Cannabis Abuse (ED) Activity Restrictions/Additional Instructions: Follow-up with medical provider as directed. Take medications as prescribed. Return to the ER or your medical provider if condition worsens. Please read and understand discharge instructions. If any questions ask please. I recommend stopping smoking marijuana. Drink plenty of fluids follow-up your family medical provider if symptoms worsen. Coding Level of Care Code ED Association Executive for Petrona Fwhumberto Exam Comprehensive
[2020-08-08] MEDS: promethazine 25 mg/mL SDV 1 mL IM (08:40)
[2020-08-08 10:11] LABS: Amphetamines Screen Urine Positive (Negative); Barbiturates Screen Urine Negative (Negative); Benzodiazepines Screen Urine Negative (Negative); Cocaine Screen Urine Negative (Negative); Opiate Screen Urine Negative (Negative); PCP Screen Urine Negative (Negative); THC Screen Urine Positive (Negative)
[2020-08-08 10:17] LABS: Add Urine Microscopic? YES; Bacteria Urine 1+ /hpf; Bilirubin Urine Neg (Negative); Blood Urine 3+ (Negative); Glucose Urine UA Norm (Normal); Ketones Urine 1+ (Negative); Leukocyte Esterase Urine 1+ (Negative); Nitrate Urine Negative (Negative); Protein Urine 1+ (Negative); RBC Urine 0-4 /hpf (0-2); Squamous Epithelial Cell Urine 25-40 /hpf (0-5); Urine Appearance Cloudy (CLEAR); Urine Color Yellow (Yellow); Urobilinogen Urine 1 mg/dL (Negative); WBC Urine 0-4 /hpf (0-5); pH Urine 6 (5-7)
[2020-08-08 10:18] LABS: Add Urine Culture? No
[2020-08-08 10:39] VITALS: BP 155/105; PULSE 76; RESP 20; O2SAT 94
== END 2020-08-08 10:40 | disposition home or self-care (01) ==
PROVIDERS: Emergency Provider Nurse Practitioner Family; PCP Nurse Practitioner Family
DX: R11.15 Cyclical vomiting syndrome unrelated to migraine (principal); F12.20 Cannabis dependence, uncomplicated; F17.210 Nicotine dependence, cigarettes, uncomplicated; Z79.899 Other long term (current) drug therapy
CPT/HCPCS: 12345; 80306; 81001; 96372; 99281; 99283; J2550

== ENCOUNTER 2020-08-24 12:43 | Outpatient (CLI) | payer MEDICARE, MEDICAID, SELFPAY ==
--- NOTE | 2020-08-24 12:53 | XRR_ITS ---
PROCEDURE INFORMATION: Exam: XR Chest, 2 Views Exam date and time: 08/24/2020 1:00 PM Age: 50 years old Clinical indication: Dyspnea and shortness of breath; Chest pain; Additional info: Dyspnea on exertion/atypical chest pain TECHNIQUE: Imaging protocol: XR of the chest Views: 2 views. COMPARISON: CR Chest 1 [place] [id number] 05/12/2018 11:11 AM FINDINGS: Lungs: Unremarkable. No consolidation. Pleural space: Unremarkable. No pleural effusion. No pneumothorax. Heart/Mediastinum: Unremarkable. No cardiomegaly. Bones/joints: Unremarkable. XR/XR chest 2V* [id number] IMPRESSION: No acute findings.
== END 2020-08-24 12:44 | disposition home or self-care (01) ==
PROVIDERS: PCP Nurse Practitioner Family; Visit Provider Nurse Practitioner Family
DX: R06.00 Dyspnea, unspecified (principal); R07.89 Other chest pain
CPT/HCPCS: 71046

== ENCOUNTER 2020-12-30 12:20 | Outpatient (CLI) | payer MEDICARE, MEDICAID, SELFPAY ==
[2020-12-30 13:56] LABS: Basophils # 0.1 10^3/uL (0.0-0.1); Basophils % 1.1 %; Eosinophils # 0.3 10^3/uL (0.0-0.8); Eosinophils % 4.5 %; Hematocrit 48.4 % (37.0-47.0); Hemoglobin 15.8 g/dL (11.5-15.3); Lymphocytes # 1.9 10^3/uL (0.8-4.8); Lymphocytes % 26.4 %; Mean Corpuscular HGB Conc 32.6 g/dL (30.0-36.0); Mean Corpuscular Hemoglobin 31.2 pg (28.0-34.0); Mean Corpuscular Volume 95.5 fL (81-99); Mean Platelet Volume 9.7 fL (7.4-10.4); Monocytes # 0.6 10^3/uL (0.2-0.9); Neutrophils # 4.17 10^3/uL (1.8-7.7); Neutrophils % 58.7 %; Nucleated Red Blood Cells % 0 %; Platelet Count 331 10^3/cmm (130-400); Red Blood Count 5.07 10^6/uL (4.1-5.3); Red Cell Distribution Width 14.1 % (12.1-15.1); White Blood Count 7.1 10^3/uL (4.0-10.0)
[2020-12-30 14:28] LABS: Alanine Aminotransferase 10 U/L (0-33); Albumin Level 4.8 g/dL (3.5-5.2); Alkaline Phosphatase 114 IU/L (35-105); Anion Gap 18.2 (5-19); Aspartate Amino Transferase 17 U/L (0-32); Blood Urea Nitrogen 14 mg/dL (6-20); Calcium 9.3 mg/dL (8.5-10.5); Carbon Dioxide 23 mmol/L (22-29); Chloride 100 mmol/L (98-107); Globulin 2.4 g/dL (1.3-4.6); Glucose 95 mg/dL (65-115); Osmolality Calculated 284 mOsm/kg (285-295); Potassium 4.2 mmol/L (3.5-5.1); Sodium 137 mmol/L (136-145); Total Bilirubin 0.5 mg/dL (0.15-1.2); Total Protein 7.2 g/dL (6.6-8.7)
[2020-12-30 14:34] LABS: HIV 1 & 2 Antibody Non-Reactive (Non-Reactiv); HIV 1 & 2 Antigen Non-Reactive (Non-Reactiv)
[2020-12-30 14:50] LABS: Hepatitis A Antibody IgM Non-Reactive (Nonreactive); Hepatitis B Surface AB 158.6 (11.5-1000); Hepatitis B Surface Antigen Non-Reactive (Nonreactive); Hepatitis C Virus Antibody Non-Reactive (Nonreactive)
[2020-12-30 15:41] LABS: Hepatitis B Core AB, Total Reactive (Nonreactive)
[2021-01-02 11:42] LABS: Quantiferon Mitogen 8.99 IU/mL; Quantiferon Nil 0.02 IU/mL; Quantiferon TB Gold NEGATIVE (NEGATIVE)
== END 2020-12-30 12:21 | disposition home or self-care (01) ==
LOC: LAB 12:30
PROVIDERS: PCP Nurse Practitioner Family; Visit Provider Dermatology
DX: L40.50 Arthropathic psoriasis, unspecified (principal); Z79.899 Other long term (current) drug therapy; L40.0 Psoriasis vulgaris
CPT/HCPCS: 36415; 80053; 85025; 86480; 86705; 86706; 86709; 86803; 87340; 87806

== ENCOUNTER 2021-05-10 06:07 | Emergency (ER) | payer MEDICARE, MEDICAID, SELFPAY ==
[2021-05-10 06:08] VITALS: BP 220/110; PULSE 86; RESP 26; TEMP 36.6; O2SAT 94; BMI 24.2
--- NOTE | 2021-05-10 06:15 | W.ED.NAVMDI ---
HPI - Nausea/Vomiting/Diarrhea General: Chief complaint: Nausea/Vomiting/Diarrhea Stated complaint: N/V Time Seen by Provider: 05/10/21 06:11 History of Present Illness: HPI Narrative: 51-year-old female presents emergency room with complaint of persistent nausea and vomiting. She has a known history of hyperemesis cannabis syndrome. She previously has used Phenergan as an outpatient to manage this. Pt continues to use marijauna regularly. Pt reports she has also recently had a cough and has a known exposure to COVID. MD elicited complaint: nausea and vomiting Pertinent past history: cyclical vomiting Onset (ago): hour(s) Description of vomiting: bilious Associated nausea: Yes Associated abdominal pain: Yes Location of pain: Diffuse Pain consistency: constant Severity: severe Quality: cramping Exacerbating factors: eating, vomiting and movement Relieving factors: none Context: marijuana use Associated symtoms: Reports anxiety, bloating, fatigue, anorexia, malaise, nausea and weakness; Denies altered mental status, change in vision, chest pain, cough, diaphoresis, decreased urine output, dizziness, dysuria, epistaxis, fecal incontinence, fevers/chills, headache(s), myalgias, numbness, palpitations, rash, short of breath, syncope, tenesmus or tinnitus Review of Systems Const: Reports: fatigue and malaise; Denies: diaphoresis Eyes: Denies: change in vision ENMT: Denies: tinnitus or epistaxis Card: Denies: chest pain, palpitations or syncope Resp: Denies: dyspnea, productive cough or non-productive cough GI: Reports: nausea and bloating; Denies: fecal incontinence : Denies: dysuria Skin/Breast: Denies: rash or pruritus Neuro: Denies: headache(s) or dizziness Psych: Reports: anxiety PFSH ED PFSH: Medical History Cannabis dependence, uncomplicated High risk medication use Major depressive disorder, recurrent, in partial remission Plaque psoriasis Post-traumatic stress disorder, chronic Psoriatic arthritis Social History Smoking and tobacco status: current every day smoker cigarettes Packs smoked per day: 1 Smoking risk assessment/counseling performed?: Yes Tobacco counseling given: counseling >3 minutes Physical Exam Const: COMMON NORMALS: no acute distress EXAM LIMITATIONS: no altered mental status GENERAL APPEARANCE: cooperative and comfortable ORIENTATION/CONSCIOUSNESS: Yes awake, Yes oriented to person, Yes oriented to place and Yes oriented to time HENMT: COMMON NORMALS: normocephalic, atraumatic and hearing grossly normal bilaterally HEAD & SCALP: normocephalic and atraumatic Neck/C-Spine: COMMON NORMALS: no JVD Resp: COMMON NORMALS: normal respiratory effort, No retractions, No use of accessory muscles and clear to auscultation bilaterally AUSCULTATION: clear to auscultation bilaterally Cardio: COMMON NORMALS: no JVD, regular rate, regular rhythm and No murmurs present (Cardio) RATE: regular rate RHYTHM: regular rhythm GI: COMMON NORMALS: Soft to palpation and No hepatosplenomegaly present AUSCULTATION: Yes normoactive bowel sounds PALPATION: Yes Soft to palpation, No Tenderness to palpation present (GI), No Guarding due to palpation present (GI) and Yes No hepatosplenomegaly present Extremity: COMMON NORMALS: normal to inspection, capillary refill normal, no clubbing, cyanosis or edema, no calf tenderness and no pedal edema Neuro: SENSORIUM/ORIENTATION: Yes oriented to person, Yes oriented to place and Yes oriented to time Skin: COMMON NORMALS: no rashes or lesions noted GENERAL SKIN EXAM: no rashes or lesions noted Course Vital Signs: Vital signs: Vital Signs Temperature 97.8 F 05/10/21 06:08 Pulse Rate 86 05/10/21 06:08 Respiratory Rate 26 H 05/10/21 06:08 Blood Pressure 220/110 05/10/21 06:08 Pulse Oximetry 94 05/10/21 06:08 MDM - Nausea/Vomiting/Diarrhea MDM Narrative: Medical decision making narrative: Vomiting is stopped. Patient improved with fluids will go ahead and discharge patient home recommend that she cut back or stop her cannabis use. Use Ativan as needed for nausea Lab Data: Labs: Lab Results 05/10/21 05/10/21 05/10/21 Range/Units 06:29 06:29 06:30 WBC 13.4 H (4.0-10.0) 10^3/ uL RBC 5.30 (4.1-5.3) 10^6/u L Hgb 16.8 H (11.5-15.3) g/dL Hct 48.3 H (37.0-47.0) % MCV 91.1 (81-99) fl MCH 31.7 (28.0-34.0) pg MCHC 34.8 (30.0-36.0) g/dL RDW 14.6 (12.1-15.1) % Plt Count 437 H (130-400) 10^3/c mm MPV 11.3 H (7.4-10.4) fL Neut % (Auto) 86.6 % Lymph % (Auto) 7.8 % [place] % (Auto) 4.9 % Eos % (Auto) 0.1 % Baso % (Auto) 0.1 % Neut # (Auto) 11.59 H (1.8-7.7) 10^3/u L Lymph # (Auto) 1.1 (0.8-4.8) 10^3/u L [place] # (Auto) 0.7 (0.2-0.9) 10^3/u L Eos # (Auto) 0.0 (0.0-0.8) 10^3/u L Baso # (Auto) 0.0 (0.0-0.1) 10^3/u L Nucleated RBC % (a uto) 0 % Nucleated RBCs # 0.0 /100WBC Sodium Cancelled Potassium Cancelled Chloride Cancelled Carbon Dioxide Cancelled Anion Gap Cancelled BUN Cancelled Creatinine Cancelled GFR Calculation Cancelled Glucose Cancelled Calculated Osmolal ity Cancelled Calcium Cancelled Total Bilirubin Cancelled AST Cancelled ALT Cancelled Alkaline Phosphata se Cancelled Creatine Kinase Cancelled Total Protein Cancelled Albumin Cancelled Globulin Cancelled Lipase Cancelled SARS-CoV-2 Ag (Rap id) Negative (Negative) 05/10/21 Range/Units 09:14 WBC (4.0-10.0) 10^3/ uL RBC (4.1-5.3) 10^6/u L Hgb (11.5-15.3) g/dL Hct (37.0-47.0) % MCV (81-99) fl MCH (28.0-34.0) pg MCHC (30.0-36.0) g/dL RDW (12.1-15.1) % Plt Count (130-400) 10^3/c mm MPV (7.4-10.4) fL Neut % (Auto) % Lymph % (Auto) % [place] % (Auto) % Eos % (Auto) % Baso % (Auto) % Neut # (Auto) (1.8-7.7) 10^3/u L Lymph # (Auto) (0.8-4.8) 10^3/u L [place] # (Auto) (0.2-0.9) 10^3/u L Eos # (Auto) (0.0-0.8) 10^3/u L Baso # (Auto) (0.0-0.1) 10^3/u L Nucleated RBC % (a uto) % Nucleated RBCs # /100WBC Sodium 138 Potassium 3.2 L Chloride 97 L Carbon Dioxide 24 Anion Gap 20.2 H BUN 31 H Creatinine 1.2 H GFR Calculation 47.0 L Glucose 91 Calculated Osmolal ity 292 Calcium 8.4 L Total Bilirubin 0.4 AST 22 ALT 13 Alkaline Phosphata se 124 H Creatine Kinase 210 H Total Protein 7.7 Albumin 4.2 Globulin 3.5 Lipase 26 SARS-CoV-2 Ag (Rap id) (Negative) Discharge Plan Discharge Patient Disposition: Home Clinical Impression: Cannabinoid hyperemesis syndrome Condition: Stable Prescriptions: New Ativan 2 mg tablet 2 mg PO TID PRN (Reason: nausea and vomiting) Qty: 10 RF: 0 No Action (DME) thumb spica splint Qty: 1 RF: 0 calcium carbonate-vitamin D3 [Calcium 600 with Vitamin D3] 600 mg(1,500mg) -500 unit capsule PO RF: 0 multivitamin [Daily Multi-Vitamin] Tablet 1 tab PO DAILY RF: 0 gabapentin 100 mg capsule 100 mg PO TID RF: 0 triamcinolone acetonide 0.1 % ointment 1 applic TOPICAL BID Qty: 80 RF: 1 hydrocortisone 2.5 % ointment 1 applic TOPICAL BID Qty: 28.35 RF: 0 ketoconazole 2 % shampoo 1 applic topical .2 x weekly Qty: 120 RF: 3 tacrolimus 0.1 % ointment 1 applic topical BID Qty: 30 RF: 1 Cymbalta 60 mg capsule,delayed release(DR/EC) 60 mg PO BID Qty: 60 RF: 0 EC-Naprosyn 500 mg tablet,delayed release (DR/EC) 500 mg PO BID PRN (Reason: pain) Qty: 20 RF: 0 promethazine 12.5 mg tablet 12.5 mg PO TID PRN (Reason: nausea and vomiting) Qty: 14 RF: 0 Discharge Orders: Discharge ED (Routine); Ordered 05/10/21 Ordered By: Lc Carreno Referrals: Tom Dan NP [Primary Care Provider] - Patient Instructions: Opioid Safety Coding Level of Care Code ED Divorce Mediator for Chg Fwd Exam Comprehensive
[2021-05-10 06:31] LABS: Basophils % 0.1 %; Eosinophils % 0.1 %; Hematocrit 48.3 % (37.0-47.0); Hemoglobin 16.8 g/dL (11.5-15.3); Lymphocytes # 1.1 10^3/uL (0.8-4.8); Lymphocytes % 7.8 %; Mean Corpuscular HGB Conc 34.8 g/dL (30.0-36.0); Mean Corpuscular Hemoglobin 31.7 pg (28.0-34.0); Mean Corpuscular Volume 91.1 fl (81-99); Mean Platelet Volume 11.3 fL (7.4-10.4); Monocytes # 0.7 10^3/uL (0.2-0.9); Monocytes % 4.9 %; Neutrophils # 11.59 10^3/uL (1.8-7.7); Neutrophils % 86.6 %; Nucleated Red Blood Cells % 0 %; Platelet Count 437 10^3/cmm (130-400); Red Cell Distribution Width 14.6 % (12.1-15.1); White Blood Count 13.4 10^3/uL (4.0-10.0)
[2021-05-10] MEDS: sodium chloride 0.9% 1,000 ML 999 ML IV (06:37)
[2021-05-10] MEDS: LORazepam 2 mg/mL INJ 1 mL IVP (06:37)
[2021-05-10 07:22] LABS: SARS Covid-2 Antigen Negative (Negative)
[2021-05-10 09:48] LABS: Alanine Aminotransferase 13 U/L (0-33); Albumin Level 4.2 g/dL (3.5-5.2); Alkaline Phosphatase 124 IU/L (35-105); Anion Gap 20.2 (5-19); Aspartate Amino Transferase 22 U/L (0-32); Blood Urea Nitrogen 31 mg/dL (6-20); Calcium 8.4 mg/dL (8.5-10.5); Carbon Dioxide 24 mmol/L (22-29); Chloride 97 mmol/L (98-107); Creatine Phosphokinase 210 U/L (26-192); Creatinine Clr Calc Pharmacy 53.7469; Globulin 3.5 g/dL (1.3-4.6); Glucose 91 mg/dL (65-115); Lipase 26 U/L (13-60); Osmolality Calculated 292 mOsm/kg (285-295); Potassium 3.2 mmol/L (3.5-5.1); Sodium 138 mmol/L (136-145); Total Bilirubin 0.4 mg/dL (0.15-1.2); Total Protein 7.7 g/dL (6.6-8.7)
[2021-05-10 17:39] LABS: Coronavirus Test Green County Not Detected
== END 2021-05-10 11:00 | disposition home or self-care (01) ==
PROVIDERS: Emergency Provider Family Medicine; PCP Nurse Practitioner Family
DX: R11.2 Nausea with vomiting, unspecified (principal); F12.90 Cannabis use, unspecified, uncomplicated; F17.210 Nicotine dependence, cigarettes, uncomplicated; Z20.822 Contact with and (suspected) exposure to COVID-19
CPT/HCPCS: 36415; 80053; 82550; 83690; 85025; 87426; 87635; 96361; 96374; 99283; J2060; J7030

== ENCOUNTER 2021-07-12 15:58 | Inpatient (IN) | payer MEDICARE, MEDICAID, SELFPAY ==
[2021-07-12 16:32] VITALS: BP 153/110; PULSE 116; RESP 20; TEMP 36.6; O2SAT 94; BMI 25.8
--- NOTE | 2021-07-12 18:30 | ED_ITS ---
HPI - Abdominal Pain General: Chief Complaint: Abdominal Pain Stated Complaint: Vomiting for over 24 hrs Time Seen by Provider: 07/12/21 18:16 Source: patient Mode of arrival: ambulatory Limitations: no limitations History of Present Illness: HPI narrative: 51-year-old female who states that she has been having nausea vomiting abdominal cramping since yesterday. She states that she is having some cramps in her hands as well states that she has had vomiting like this before and had hypokalemia says she has had diffuse abdominal pain she rates a 2-3 out of 10. States that nothing is improved her vomiting and she is not able to tolerate liquids or solids. Denies any diarrhea denies any fever. Associated Symptoms: Reports nausea and vomiting; Denies chills, dysuria and fever(s) Review of Systems Const: Denies: fever(s), chills, body aches or change in appetite Eyes: Denies: blurry vision or eye discomfort ENMT: Denies: throat pain or dental pain Card: Denies: chest pain Resp: Denies: dyspnea GI: Reports: abdominal pain, nausea and vomiting : Denies: dysuria Musc: Denies: neck pain or back pain Skin/Breast: Denies: rash Neuro: Denies: headache(s) Psych: Denies: depression Ba/Lymph: Denies: easy bruising All/Imm: Denies: urticaria PFSH ED PFSH: Medical History Cannabis dependence, uncomplicated High risk medication use Major depressive disorder, recurrent, in partial remission Plaque psoriasis Post-traumatic stress disorder, chronic Psoriatic arthritis Social History Smoking and tobacco status: current every day smoker cigarettes Packs smoked per day: 1 Smoking risk assessment/counseling performed?: Yes Tobacco counseling given: counseling >3 minutes Physical Exam Const: COMMON NORMALS: no acute distress, patient oriented x3 and healthy appearing HENMT: COMMON NORMALS: normocephalic and atraumatic HEAD & SCALP: normocephalic and atraumatic Eye: COMMON NORMALS: Equal, round and reactive pupils present and EOMs intact bilaterally PUPIL: Yes Equal, round and reactive pupils present Neck/C-Spine: COMMON NORMALS: full ROM and supple Chest: COMMONS NORMALS: normal inspection of the chest and normal palpation of entire chest wall Resp: COMMON NORMALS: normal respiratory effort, No retractions, No use of accessory muscles and clear to auscultation bilaterally AUSCULTATION: clear to auscultation bilaterally Cardio: COMMON NORMALS: regular rate, regular rhythm and No murmurs present (Cardio) RATE: regular rate RHYTHM: regular rhythm GI: COMMON NORMALS: Normal to inspection, nondistended, normoactive bowel sounds present, Soft to palpation, non-tender and no masses PALPATION: Yes Soft to palpation Extremity: COMMON NORMALS: normal to inspection and full ROM Neuro: COMMON NORMALS: patient oriented x3, moves all extremities and no focal motor deficits Psych: COMMON NORMALS: mental status grossly normal, Normal thought process present and cooperative THOUGHT PROCESS: Normal thought process present Skin: COMMON NORMALS: no rashes or lesions noted and no wounds GENERAL SKIN EXAM: no rashes or lesions noted Course Vital Signs: Vital signs: Vital Signs Temperature 97.8 F 07/12/21 16:32 Pulse Rate 116 H 07/12/21 16:32 Respiratory Rate 22 H 07/12/21 20:22 Blood Pressure 153/110 07/12/21 16:32 Pulse Oximetry 94 07/12/21 16:32 MDM - Abdominal Pain MDM Narrative: Medical decision making narrative: Patient presents with vomiting diarrhea with dehydration. She does have acute kidney injury with elevated creatinine. Patient did receive a contrast for her CT as the creatinine was not yet resulted will hydrate. Patient has received 2 L of fluids spoke to hospitalist will admit and continue to hydrate she has a normal potassium does have some hyponatremia likely from dehydration as well. CT showed no acute surgical findings Lab Data: Labs: Lab Results 07/12/21 07/12/21 19:52 19:52 WBC 21.1 10^3/uL H 10 ^3/uL (4.0-10.0) RBC 5.51 10^6/uL H 10 ^6/uL (4.1-5.3) Hgb 17.8 g/dL H g/dL (11.5-15.3) Hct 49.0 % H % (37.0-47.0) MCV 88.9 fl fl (81-99) MCH 32.3 pg pg (28.0-34.0) MCHC 36.3 g/dL H g/dL (30.0-36.0) RDW 14.3 % % (12.1-15.1) Plt Count 399 10^3/cmm 10^3 /cmm (130-400) MPV 9.9 fL fL (7.4-10.4) Neut % (Auto) 71.6 % % Lymph % (Auto) 5.8 % % [place] % (Auto) 7.5 % % Eos % (Auto) 13.9 % % Baso % (Auto) 0.3 % % Neut # (Auto) 15.14 10^3/uL H 1 0^3/uL (1.8-7.7) Lymph # (Auto) 1.2 10^3/uL 10^3/ uL (0.8-4.8) [place] # (Auto) 1.6 10^3/uL H 10^ 3/uL (0.2-0.9) Eos # (Auto) 2.9 10^3/uL H 10^ 3/uL (0.0-0.8) Baso # (Auto) 0.1 10^3/uL 10^3/ uL (0.0-0.1) Nucleated RBC % (a uto) 0 % % Nucleated RBCs # 0.0 /100WBC /100W BC Sodium 125 mmol/L L mmol /L (136-145) Potassium 3.2 mmol/L L mmol /L (3.5-5.1) Chloride 69 mmol/L L mmol/ L (98-107) Carbon Dioxide 34 mmol/L H mmol/ L (22-29) Anion Gap 25.2 H (5-19) BUN 40 mg/dL H mg/dL (6-20) Creatinine 4.3 mg/dL H mg/dL (0.5-0.9) GFR Calculation 10.8 mL/min L mL/ min (90-130) Glucose 127 mg/dL H mg/dL (65-115) Calculated Osmolal ity 271 mOsm/kg L mOs m/kg (285-295) Calcium 9.8 mg/dL mg/dL (8.5-10.5) Total Bilirubin 1.0 mg/dL mg/dL (0.15-1.2) AST 59 U/L H U/L (0-32) ALT 21 U/L U/L (0-33) Alkaline Phosphata se 154 IU/L H IU/L (35-105) Total Protein 8.9 g/dL H g/dL (6.6-8.7) Albumin 4.6 g/dL g/dL (3.5-5.2) Globulin 4.3 g/dL g/dL (1.3-4.6) Lipase 19 U/L U/L (13-60) Imaging Data ^: CT Abd/Pel: Attestation: I personally reviewed and interpreted this imaging study as follows: Radiologist's impression: Equ[address] [address] [address] Scan Report Signed Patient: Rachelle Mireles Unit #: [id number] : 1970 Age/Sex: 51 / F ADM Date: 07/12/21 Loc: ER Room/Bed: Attending Dr: Ordering Provider/Ordering MD: Rianna Schneider MD Date of Service: 07/12/21 Procedure(s): CT abdomen pelvis w con* [id number] Accession Number(s): [id number] Report Number: [id number] PROCEDURE INFORMATION: Exam: CT Abdomen And Pelvis With Contrast Exam date and time: 07/12/2021 7:27 PM Age: 51 years old Clinical indication: Nausea and vomiting; Abdominal pain; Generalized; Prior surgery; Surgery type: Pelvis, hyst, gb, appy; Additional info: Abd pain TECHNIQUE: Imaging protocol: Computed tomography of the abdomen and pelvis with contrast. Total images: 223 Radiation optimization: All CT scans at this facility use at least one of these dose optimization techniques: automated exposure control; mA and/or kV adjustment per patient size (includes targeted exams where dose is matched to clinical indication); or iterative reconstruction. Contrast material: VISI 320; Contrast volume: 95 ml; Contrast route: INTRAVENOUS (IV); COMPARISON: CT abdomen pelvis w con* [id number] 10/05/2019 4:41 AM RADIATION DOSE METRICS: Total DLP (mGy-cm): 1129.07 FINDINGS: Lungs: Limited assessment of the lung bases fails to reveal evidence for active cardiopulmonary process. Liver: No visible hepatic mass. Stable very tiny simple hepatic cyst right hepatic lobe. Gallbladder and bile ducts: Status post cholecystectomy. Pancreas: Pancreas is unremarkable. No visible pancreatic ductal ectasia. Spleen: Spleen unremarkable. Adrenal glands: Mild adrenal hyperplasia period no visible adrenal nodule or mass. Kidneys and ureters: No visible hydronephrosis or perinephric fluid. No visible nephrolithiasis. Bilateral small simple renal cortical cysts stable. No follow-up recommended. Stomach and bowel: Findings raising suspicion for either infectious or inflammatory jejunitis. Associated dilated fluid-filled loops of jejunum. Potential associated moderate focal jejunal either adynamic or reactive ileus. No transition zone to suggest bowel obstruction. Stomach nondistended. Duodenum unremarkable. Ileal bowel loops appear unremarkable and of normal caliber. Colon without evidence for diverticulosis coli or diverticulitis. Appendix: The appendix is visualized and appears noninflamed. Intraperitoneal space: No visible pneumoperitoneum or intraperitoneal ascites. Vasculature: Portal vein patent. The abdominal aorta is nonaneurysmal. Mild arterial sclerotic disease. Lymph nodes: No current visible evidence of active mesenteric or retroperitoneal lymphadenopathy. Urinary bladder: The urinary bladder is decompressed. Reproductive: Status post hysterectomy. Bones/joints: No visible acute osseous abnormality. Stable screw and compression plate and screw arthrodesis fixation of the pelvis. Soft tissues: Two very small supraumbilical midline ventral hernias containing fat only stable. CT/CT abdomen pelvis w con* [id number] IMPRESSION: Findings raising suspicion for either infectious or inflammatory jejunitis as detailed in text above. Associated either adynamic or reactive ileus. Radiation Dose CTDIVOL = (mGy): DLP = 1129.07 (mGy-cm) Dictated By: Shiraz Mims Signed By: Shiraz Mims Signed Date/Time: 07/12/212115 DD/ 26 EKG Data ^: EKG 1: Attestation: I personally reviewed and interpreted this EKG as follows: EKG interpretation date: 07/12/21 EKG interpretation time: 21:31 Interpretation: nsr hr [address] or t wave abnormalities qrs 110 qtc 407 Discharge Plan Discharge Patient Disposition: Admitted As Inpatient Clinical Impression: Acute kidney injury, Acute dehydration, Vomiting, Acute hyponatremia Condition: Stable Coding Level of Care Code ED Domestic Technician for Chg Fwd Exam Comprehensive
--- NOTE | 2021-07-12 19:27 | CTR_ITS ---
PROCEDURE INFORMATION: Exam: CT Abdomen And Pelvis With Contrast Exam date and time: 07/12/2021 7:27 PM Age: 51 years old Clinical indication: Nausea and vomiting; Abdominal pain; Generalized; Prior surgery; Surgery type: Pelvis, hyst, gb, appy; Additional info: Abd pain TECHNIQUE: Imaging protocol: Computed tomography of the abdomen and pelvis with contrast. Total images: 223 Radiation optimization: All CT scans at this facility use at least one of these dose optimization techniques: automated exposure control; mA and/or kV adjustment per patient size (includes targeted exams where dose is matched to clinical indication); or iterative reconstruction. Contrast material: VISI 320; Contrast volume: 95 ml; Contrast route: INTRAVENOUS (IV); COMPARISON: CT abdomen pelvis w con* [id number] 10/05/2019 4:41 AM RADIATION DOSE METRICS: Total DLP (mGy-cm): 1129.07 FINDINGS: Lungs: Limited assessment of the lung bases fails to reveal evidence for active cardiopulmonary process. Liver: No visible hepatic mass. Stable very tiny simple hepatic cyst right hepatic lobe. Gallbladder and bile ducts: Status post cholecystectomy. Pancreas: Pancreas is unremarkable. No visible pancreatic ductal ectasia. Spleen: Spleen unremarkable. Adrenal glands: Mild adrenal hyperplasia period no visible adrenal nodule or mass. Kidneys and ureters: No visible hydronephrosis or perinephric fluid. No visible nephrolithiasis. Bilateral small simple renal cortical cysts stable. No follow-up recommended. Stomach and bowel: Findings raising suspicion for either infectious or inflammatory jejunitis. Associated dilated fluid-filled loops of jejunum. Potential associated moderate focal jejunal either adynamic or reactive ileus. No transition zone to suggest bowel obstruction. Stomach nondistended. Duodenum unremarkable. Ileal bowel loops appear unremarkable and of normal caliber. Colon without evidence for diverticulosis coli or diverticulitis. Appendix: The appendix is visualized and appears noninflamed. Intraperitoneal space: No visible pneumoperitoneum or intraperitoneal ascites. Vasculature: Portal vein patent. The abdominal aorta is nonaneurysmal. Mild arterial sclerotic disease. Lymph nodes: No current visible evidence of active mesenteric or retroperitoneal lymphadenopathy. Urinary bladder: The urinary bladder is decompressed. Reproductive: Status post hysterectomy. Bones/joints: No visible acute osseous abnormality. Stable screw and compression plate and screw arthrodesis fixation of the pelvis. Soft tissues: Two very small supraumbilical midline ventral hernias containing fat only stable. CT/CT abdomen pelvis w con* [id number] IMPRESSION: Findings raising suspicion for either infectious or inflammatory jejunitis as detailed in text above. Associated either adynamic or reactive ileus. Radiation Dose CTDIVOL = (mGy): DLP = 1129.07 (mGy-cm)
[2021-07-12] MEDS: sodium chloride 0.9% 1,000 ML 999 ML IV ×2 (19:56→23:24)
[2021-07-12 20:05] LABS: Basophils # 0.1 10^3/uL (0.0-0.1); Basophils % 0.3 %; Eosinophils # 2.9 10^3/uL (0.0-0.8); Eosinophils % 13.9 %; Hemoglobin 17.8 g/dL (11.5-15.3); Lymphocytes # 1.2 10^3/uL (0.8-4.8); Lymphocytes % 5.8 %; Mean Corpuscular HGB Conc 36.3 g/dL (30.0-36.0); Mean Corpuscular Hemoglobin 32.3 pg (28.0-34.0); Mean Corpuscular Volume 88.9 fl (81-99); Mean Platelet Volume 9.9 fL (7.4-10.4); Monocytes # 1.6 10^3/uL (0.2-0.9); Monocytes % 7.5 %; Neutrophils # 15.14 10^3/uL (1.8-7.7); Neutrophils % 71.6 %; Nucleated Red Blood Cells % 0 %; Platelet Count 399 10^3/cmm (130-400); Red Blood Count 5.51 10^6/uL (4.1-5.3); Red Cell Distribution Width 14.3 % (12.1-15.1); White Blood Count 21.1 10^3/uL (4.0-10.0)
[2021-07-12 20:22] VITALS: RESP 22
[2021-07-12] MEDS: morphine 4 mg/mL SDV 1 mL IVP ×2 (20:22→22:36)
[2021-07-12] MEDS: ondansetron 2 mg/ML SDV 2 mL 4 MG IVP ×3 (20:22→23:49)
[2021-07-12 20:37] LABS: Slide Review Slide Review Perform
[2021-07-12] MEDS: iodixanol 320 mg/mL 100mL Btl IV (20:40)
[2021-07-12 21:04] LABS: Alanine Aminotransferase 21 U/L (0-33); Albumin Level 4.6 g/dL (3.5-5.2); Alkaline Phosphatase 154 IU/L (35-105); Aspartate Amino Transferase 59 U/L (0-32); Blood Urea Nitrogen 40 mg/dL (6-20); Calcium 9.8 mg/dL (8.5-10.5); Carbon Dioxide 34 mmol/L (22-29); Chloride 69 mmol/L (98-107); Globulin 4.3 g/dL (1.3-4.6); Glomerular Filtration Rate 10.8 mL/min (90-130); Glucose 127 mg/dL (65-115); Lipase 19 U/L (13-60); Osmolality Calculated 271 mOsm/kg (285-295); Sodium 125 mmol/L (136-145); Total Protein 8.9 g/dL (6.6-8.7)
[2021-07-12 21:06] LABS: Anion Gap 25.2 (5-19); Potassium 3.2 mmol/L (3.5-5.1)
--- NOTE | 2021-07-12 21:59 | P.HP_ITS ---
Providers/Chief Complaint Primary Care Provider: Tom Dan NP Chief Complaint: Vomiting for over 24 hrs History of Present Illness Rachelle Mireles is a 51 year old female with past medical history of amphetamine and marijuana use, psoriasis who presented today to emergency room with complaints of abdominal cramps, vomiting and diarrhea. The symptoms started yesterday. The patient reports 30 episodes of vomiting mostly containing bile. She was unable to eat or drink much. Abdominal cramps are generalized. Reports 3 episodes of black tarry diarrhea. Denies any overt blood. Denies fever or chills. Denies similar episodes in the past. Denies any prior history of GI bleeding. No chest pain, shortness of breath, cough, palpitations. No runny nose or sore throat. Urine is concentrated and in decreased amount. Review of Systems General: Reports: 10 or more systems reviewed and unremarkable except in HPI and below Medications/Allergies Home Medications Medication Instructions Recorded Confirmed Last Taken Type naproxen [EC-Naprosyn] 500 mg PO BID PRN #20 tab 09/27/19 12/26/20 Unknown Rx thumb spica splint #1 ea 01/05/20 12/26/20 Unknown Rx duloxetine 60 mg capsule,delayed 60 mg PO BID #60 cap 02/15/20 12/26/20 Unknown Rx release calcium carbonate 600 mg (1,500 cap PO 04/20/20 12/26/20 Unknown History mg)-vitamin D3 500 unit capsule gabapentin 100 mg capsule 100 mg PO TID 04/20/20 12/26/20 Unknown History hydrocortisone 2.5 % topical 1 applic TOPICAL BID #28.35 gm 04/20/20 12/26/20 Unknown Rx ointment multivitamin 1 tab PO DAILY 04/20/20 12/26/20 Unknown History triamcinolone acetonide 0.1 % 1 applic TOPICAL BID #80 gm 04/20/20 12/26/20 Unknown Rx topical ointment promethazine 12.5 mg PO TID PRN #14 tab 08/08/20 12/26/20 Unknown Rx ketoconazole 2 % shampoo 1 applic TOPICAL .2 x weekly #120 09/28/20 12/26/20 Unknown Rx ml tacrolimus 0.1 % topical ointment 1 applic TOPICAL BID #30 g 09/28/20 12/26/20 Unknown Rx lorazepam [Ativan] 2 mg PO TID PRN #10 tab 05/10/21 Unknown Rx risankizumab-rzaa 150 mg SUBCUT ONCE #1 ea 05/22/21 Unknown Rx risankizumab-rzaa 150 mg/mL 150 mg SUBCUT ONCE #1 ml 06/06/21 Unknown Rx subcutaneous pen injector Allergies Allergy/AdvReac Type Severity Reaction Status Date / Time codeine Allergy ALGY-Anaphy Verified 12/26/20 14:12 laxis PFSH Acute PFSH: Medical History Cannabis dependence, uncomplicated High risk medication use Major depressive disorder, recurrent, in partial remission Plaque psoriasis Post-traumatic stress disorder, chronic Psoriatic arthritis Social History Smoking and tobacco status: current every day smoker cigarettes Packs smoked per day: 1 Smoking risk assessment/counseling performed?: Yes Tobacco counseling given: counseling >3 minutes Vitals/I&O/Wt Last Vital Signs Temp 97.8 F 07/12/21 16:32 Pulse 116 H 07/12/21 16:32 Resp 22 H 07/12/21 20:22 BP 153/110 07/12/21 16:32 Pulse Ox 94 07/12/21 16:32 Weight last 48 hrs Weight 72.575 kg Physical Exam Narrative: EXAM NARRATIVE: The patient is currently awake alert and oriented. No acute distress, but slightly anxious. Mood and affect are appropriate. Responses are adequate. Skin is warm and dry. Dry mucous membranes Eyes PERRL, extraocular muscles are intact. No icterus. Neck supple. No JVD Lungs are clear to auscultation bilaterally. No respiratory distress Heart S1, S2, regular tachycardia Abdomen is soft, nondistended, bowel sounds are present. Tender diffusely. No rebound or guarding. Extremities no edema cyanosis or calf tenderness bilaterally Neuro evaluation is nonfocal. Normal speech. Data : 07/12/21 19:52 07/12/21 19:52 Other Labs: Laboratory Results WBC 21.1 10^3/uL (4.0-10.0) H 07/12/21 19:52 RBC 5.51 10^6/uL (4.1-5.3) H 07/12/21 19:52 Hgb 17.8 g/dL (11.5-15.3) H 07/12/21 19:52 Hct 49.0 % (37.0-47.0) H 07/12/21 19:52 MCV 88.9 fl (81-99) 07/12/21 19:52 MCH 32.3 pg (28.0-34.0) 07/12/21 19:52 MCHC 36.3 g/dL (30.0-36.0) H 07/12/21 19:52 RDW 14.3 % (12.1-15.1) 07/12/21 19:52 Plt Count 399 10^3/cmm (130-400) 07/12/21 19:52 MPV 9.9 fL (7.4-10.4) 07/12/21 19:52 Neut % (Auto) 71.6 % 07/12/21 19:52 Lymph % (Auto) 5.8 % 07/12/21 19:52 [place] % (Auto) 7.5 % 07/12/21 19:52 Eos % (Auto) 13.9 % 07/12/21 19:52 Baso % (Auto) 0.3 % 07/12/21 19:52 Neut # (Auto) 15.14 10^3/uL (1.8-7.7) H 07/12/21 19:52 Lymph # (Auto) 1.2 10^3/uL (0.8-4.8) 07/12/21 19:52 [place] # (Auto) 1.6 10^3/uL (0.2-0.9) H 07/12/21 19:52 Eos # (Auto) 2.9 10^3/uL (0.0-0.8) H 07/12/21 19:52 Baso # (Auto) 0.1 10^3/uL (0.0-0.1) 07/12/21 19:52 Nucleated RBC % (auto) 0 % 07/12/21 19:52 Nucleated RBCs # 0.0 /100WBC 07/12/21 19:52 Sodium 125 mmol/L (136-145) L 07/12/21 19:52 Potassium 3.2 mmol/L (3.5-5.1) L 07/12/21 19:52 Chloride 69 mmol/L (98-107) L 07/12/21 19:52 Carbon Dioxide 34 mmol/L (22-29) H 07/12/21 19:52 Anion Gap 25.2 (5-19) H 07/12/21 19:52 BUN 40 mg/dL (6-20) H 07/12/21 19:52 Creatinine 4.3 mg/dL (0.5-0.9) H 07/12/21 19:52 GFR Calculation 10.8 mL/min (90-130) L 07/12/21 19:52 Glucose 127 mg/dL (65-115) H 07/12/21 19:52 Calculated Osmolality 271 mOsm/kg (285-295) L 07/12/21 19:52 Calcium 9.8 mg/dL (8.5-10.5) 07/12/21 19:52 Total Bilirubin 1.0 mg/dL (0.15-1.2) 07/12/21 19:52 AST 59 U/L (0-32) H 07/12/21 19:52 ALT 21 U/L (0-33) 07/12/21 19:52 Alkaline Phosphatase 154 IU/L (35-105) H 07/12/21 19:52 Total Protein 8.9 g/dL (6.6-8.7) H 07/12/21 19:52 Albumin 4.6 g/dL (3.5-5.2) 07/12/21 19:52 Globulin 4.3 g/dL (1.3-4.6) 07/12/21 19:52 Lipase 19 U/L (13-60) 07/12/21 19:52 Impressions Abdomen/Pelvis CT 07/12/21 19:27 IMPRESSION: Findings raising suspicion for either infectious or inflammatory jejunitis as detailed in text above. Associated either adynamic or reactive ileus. Radiation Dose CTDIVOL = (mGy): DLP = 1129.07 (mGy-cm) A&P Assessment and plan (1) Hypokalemia: Status: Acute (2) GI bleeding: Status: Acute (3) Anxiety: Status: Acute (4) Hypertension: Status: Acute (5) Acute kidney injury: Status: Acute (6) Acute dehydration: Status: Acute (7) Vomiting: Status: Acute (8) Acute hyponatremia: Status: Acute (9) Cannabis dependence, uncomplicated: Status: Acute Additional A&P Information 51-year-old female with past medical history of psoriasis, depression and anxi ety, marijuana and amphetamine use who is presenting with nausea, vomiting, diarrhea, abdominal cramps. The patient is found to have acute kidney injury secondary to dehydration secondary to GI loss. Upper GI bleeding is suspected. The patient also has hypokalemia. Acute kidney injury. We will continue hydration with normal saline. Will order additional labs to identify possible causes of her kidney failure. Most likely it is prerenal. She also takes NSAIDs which could contribute. CT of the abdomen did not reveal hydro-, signs of obstruction or urolithiasis if it does not improve quickly we will consider nephrology consultation. Hypokalemia. Will replace and monitor. Possible GI bleeding. We will check her fecal occult blood testing. Will monitor H&H every 6 hours. If confirmed will request GI consult. PPI twice daily for now. Leukocytosis. Most likely due to hemoconcentration and stress. We will monitor this. If it does not improve we will consider antibiotics. Hypertension. As needed labetalol. Hyponatremia most likely secondary to dehydration. CODE STATUS. She wants to be full code. The plan of care was discussed with the patient. She verbalized understanding and agreement Attestations Medical Necessity Statement*: Based on my assessment of patient's current diagnosis and plan of care I expect that the patient will spend more than 2 midnights in the hospital. Coding Level of Care Code Acute Supervisor Fleshing for 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 Diagnoses Hypokalemia E87.6 GI bleeding K92.2 Anxiety F41.9 Hypertension I10 Acute kidney injury N17.9 Acute dehydration E86.0 Vomiting R11.10 Acute hyponatremia E87.1 Cannabis dependence, uncomplicated F12.20
[2021-07-12 22:36] VITALS: RESP 23
[2021-07-12] MEDS: labetalol 5 mg/mL SDV 20mL 10 MG IVP (23:23)
[2021-07-12 23:34] VITALS: BP 172/100; PULSE 51; RESP 22; O2SAT 91
[2021-07-12] MEDS: LORazepam 2 mg Tablet PO (23:53)
[2021-07-12 23:55] LABS: Glucose Point of Care 142 mg/dL (70-110)
[2021-07-13] VITALS (8 sets, daily range): BP systolic 107–169; BP diastolic 66–119; PULSE 83–96; RESP 14–21; TEMP 36.5–37.2; O2SAT 90–95; BMI 25.8
[2021-07-13] MEDS: labetalol 5 mg/mL SDV 20mL 10 MG IVP (00:01)
[2021-07-13 00:37] LABS: Add Urine Microscopic? YES; Bilirubin Urine 1+ (Negative); Blood Urine 2+ (Negative); Glucose Urine UA Norm (Normal); Ketones Urine Negative (Negative); Leukocyte Esterase Urine 1+ (Negative); Nitrate Urine Negative (Negative); Protein Urine 3+ (Negative); Specific Gravity, Urine 1.005 (1.005-1.030); Urine Appearance Clear (CLEAR); Urine Color Yellow (Yellow); Urobilinogen Urine Norm (Negative); pH Urine 7 (5-7)
[2021-07-13 00:41] LABS: Amorphous Sediment Urine 3+ /hpf; Bacteria Urine TRACE /hpf; WBC Urine 0-4 /hpf (0-5)
[2021-07-13 00:42] LABS: Add Urine Culture? No; Hyaline Casts Urine 0-4 /lpf
[2021-07-13] MEDS: pantoprazole 40 mg SDV IVP ×3 (00:44→21:22)
[2021-07-13] MEDS: potassium chloride premix 100 ML 50 MEQ IV ×2 (00:44→07:47)
[2021-07-13] MEDS: sodium chloride 0.9% 1,000 ML 150 ML IV ×4 (00:44→21:00)
[2021-07-13 00:45] LABS: Urine Creatinine 122 mg/dL (28-217); Urine Random Sodium 21 mmol/L
[2021-07-13 00:52] LABS: Amphetamines Screen Urine Negative (Negative); Barbiturates Screen Urine Negative (Negative); Benzodiazepines Screen Urine Negative (Negative); Cocaine Screen Urine Negative (Negative); Opiate Screen Urine Positive (Negative); PCP Screen Urine Negative (Negative); THC Screen Urine Positive (Negative)
[2021-07-13] MEDS: promethazine 25 mg/mL SDV 1 mL 12.5 MG IM ×3 (01:36→18:37)
[2021-07-13] MEDS: lanolin oint 7 gm 1 APPLIC TOPICAL (01:36)
[2021-07-13 01:42] LABS: Hematocrit 43.9 % (37.0-47.0); Hemoglobin 15.6 g/dL (11.5-15.3)
[2021-07-13 02:22] LABS: Eosinophil Urine No Eosinophils Seen; Urine Eosinophil Count 0 (0-0)
[2021-07-13] MEDS: acetaminophen 325 mg Tablet 650 MG PO ×3 (02:56→20:33)
[2021-07-13 05:46] LABS: Basophils % 0.2 %; Eosinophils % 0.1 %; Hematocrit 41.8 % (37.0-47.0); Hemoglobin 14.8 g/dL (11.5-15.3); Lymphocytes # 1.5 10^3/uL (0.8-4.8); Lymphocytes % 8.1 %; Mean Corpuscular HGB Conc 35.4 g/dL (30.0-36.0); Mean Corpuscular Hemoglobin 32.3 pg (28.0-34.0); Mean Corpuscular Volume 91.3 fl (81-99); Mean Platelet Volume 10.3 fL (7.4-10.4); Monocytes # 1.8 10^3/uL (0.2-0.9); Monocytes % 9.7 %; Neutrophils # 14.76 10^3/uL (1.8-7.7); Neutrophils % 81.5 %; Nucleated Red Blood Cells % 0 %; Platelet Count 329 10^3/cmm (130-400); Red Blood Count 4.58 10^6/uL (4.1-5.3); Red Cell Distribution Width 14.2 % (12.1-15.1); White Blood Count 18.1 10^3/uL (4.0-10.0)
[2021-07-13 06:12] LABS: Alanine Aminotransferase 21 U/L (0-33); Albumin Level 3.6 g/dL (3.5-5.2); Alkaline Phosphatase 104 IU/L (35-105); Anion Gap 17.7 (5-19); Aspartate Amino Transferase 62 U/L (0-32); Blood Urea Nitrogen 37 mg/dL (6-20); Calcium 7.8 mg/dL (8.5-10.5); Carbon Dioxide 33 mmol/L (22-29); Chloride 82 mmol/L (98-107); Glomerular Filtration Rate 18.4 mL/min (90-130); Glucose 99 mg/dL (65-115); Magnesium 1.9 mg/dL (1.7-2.3); Osmolality Calculated 279 mOsm/kg (285-295); Phosphorus 4.9 mg/dL (2.5-4.5); Sodium 130 mmol/L (136-145); Total Bilirubin 0.7 mg/dL (0.15-1.2); Total Protein 6.6 g/dL (6.6-8.7)
[2021-07-13 06:17] LABS: Estmated Average Glucose 103; Hemoglobin A1C 5.2 % (4.0-6.0)
[2021-07-13 06:30] LABS: Potassium 2.7 mmol/L (3.5-5.1)
[2021-07-13 06:43] LABS: Glucose Point of Care 120 mg/dL (70-110)
--- NOTE | 2021-07-13 07:43 | P.CONIM_ITS ---
Providers/Reason For Consult Consulting Physician/Specialty*: Dr. Lai Reason for Consult*: Concern for GI bleed Attending Physician: Marco Lima Primary Care Provider: Tom Dan NP History of Present Illness History of Present Illness Chief Complaint: I was vomiting for the past 24 hours History of present illness: Ms Rachelle Mireles is a 51 year old female presents to the emergency department history of abdominal cramps, vomiting and diarrhea. Patient reports that she had bouts of hematemesis. She had it in the past and EGD was done but she does not recall what were the findings, patient was admitted to the hospital service for further resuscitation and evaluation. Patient reports history of diarrhea, nonbloody in nature, has been going on for quite some time. Patient denies history of recent travels, antibiotics, change in medications, questionable source of water, no history of sick contacts, no history of thyroid disorders. CT scan of the abdomen pelvis was done in the ER that showed; Liver: No visible hepatic mass. Stable very tiny simple hepatic cyst right hepatic lobe. Gallbladder and bile ducts: Status post cholecystectomy. Pancreas: Pancreas is unremarkable. No visible pancreatic ductal ectasia. Spleen: Spleen unremarkable. Adrenal glands: Mild adrenal hyperplasia period no visible adrenal nodule or mass. Kidneys and ureters: No visible hydronephrosis or perinephric fluid. No visible nephrolithiasis. Bilateral small simple renal cortical cysts stable. No follow-up recommended. Stomach and bowel: Findings raising suspicion for either infectious or inflammatory jejunitis. Associated dilated fluid-filled loops of jejunum. Potential associated moderate focal jejunal either adynamic or reactive ileus. No transition zone to suggest bowel obstruction. Stomach nondistended. Duodenum unremarkable. Ileal bowel loops appear unremarkable and of normal caliber. Colon without evidence for diverticulosis coli or diverticulitis. Appendix: The appendix is visualized and appears noninflamed. Intraperitoneal space: No visible pneumoperitoneum or intraperitoneal ascites. Vasculature: Portal vein patent. The abdominal aorta is nonaneurysmal. Mild arterial sclerotic disease. Lymph nodes: No current visible evidence of active mesenteric or retroperitoneal lymphadenopathy. Urinary bladder: The urinary bladder is decompressed. Reproductive: Status post hysterectomy. Bones/joints: No visible acute osseous abnormality. Stable screw and compression plate and screw arthrodesis fixation of the pelvis. Soft tissues: Two very small supraumbilical midline ventral hernias containing fat only stable. General surgery was consulted for further evaluation and potential Review of Systems General: Reports: 10 or more systems reviewed and unremarkable except in HPI and below Meds/Allergies Home Medications and Allergies Home Medications Medication Instructions Recorded Confirmed Last Taken Type thumb spica splint #1 ea 01/05/20 07/13/21 Unknown Rx duloxetine 60 mg capsule,delayed 60 mg PO BID #60 cap 02/15/20 07/13/21 Unknown Rx release multivitamin 1 tab PO DAILY 04/20/20 07/13/21 Unknown History triamcinolone acetonide 0.1 % 1 applic TOPICAL BID #80 gm 04/20/20 07/13/21 Unknown Rx topical ointment ketoconazole 2 % shampoo 1 applic TOPICAL .2 x weekly #120 09/28/20 07/13/21 Unknown Rx ml tacrolimus 0.1 % topical ointment 1 applic TOPICAL BID #30 g 09/28/20 07/13/21 Unknown Rx lorazepam [Ativan] 2 mg PO TID PRN #10 tab 05/10/21 07/13/21 Unknown Rx albuterol sulfate [Ventolin HFA] 1 - 2 puff INHALATION QID PRN 07/13/21 07/13/21 Unknown History baclofen 20 mg PO TID PRN 07/13/21 07/13/21 Unknown History hydrochlorothiazide 25 mg PO DAILY 07/13/21 07/13/21 Unknown History naproxen 500 mg PO BID 07/13/21 07/13/21 Unknown History pregabalin 100 mg PO BID 07/13/21 07/13/21 Unknown History promethazine [Promethegan] 25 mg IN Q4H PRN 07/13/21 07/13/21 Unknown History risankizumab-rzaa [Skyrizi] 150 mg SUBCUT .EVERY 12 WEEKS 07/13/21 07/13/21 Unknown History Allergies Allergy/AdvReac Type Severity Reaction Status Date / Time codeine Allergy ALGY-Anaphy Verified 07/13/21 17:03 laxis Current Medications Current Medications Generic Name Dose Route Start Last Admin Trade Name Freq PRN Reason Stop Dose Admin Acetaminophen 650 mg 07/12/21 23:30 07/13/21 02:56 Acetaminophen 325 Mg Tablet PO 650 mg Q6H PRN Administration Mild/Mod Pain Or Temp >/= 101 Sodium Chloride 1,000 mls @ 150 mls/hr 07/12/21 23:30 07/13/21 00:44 Sodium Chloride 0.9% IV 150 mls/hr .Q6H40M KATE Administration Insulin Human Lispro 0 unit 07/12/21 23:30 07/13/21 05:34 Insulin Lispro 100 Unit/1 Ml SUBCUT Not Given Q6H [facility] Protocol Lanolin 1 applic 07/13/21 01:17 07/13/21 01:36 Lanolin Oint 7 Gm TOPICAL 1 applic PRN PRN Administration DRYNESS Lorazepam 2 mg 07/12/21 23:30 07/12/21 23:53 Lorazepam 2 Mg Tablet PO 2 mg TID PRN Administration nausea and vomiting Ondansetron HCl 4 mg 07/12/21 23:30 07/12/21 23:49 Ondansetron 2 Mg/Ml Sdv 2 Ml IVP 4 mg Q6H PRN Administration vomiting, or N/V if npo Pantoprazole Sodium 40 mg 07/12/21 23:30 07/13/21 00:44 Pantoprazole 40 Mg Sdv IVP 40 mg Q12H KATE Administration Promethazine HCl 12.5 mg 07/12/21 23:30 07/13/21 01:36 Promethazine 25 Mg/Ml Sdv 1 Ml IM 12.5 mg Q6H PRN Administration NAUSEA PFSH Acute PFSH: Medical History Cannabis dependence, uncomplicated High risk medication use Major depressive disorder, recurrent, in partial remission Plaque psoriasis Post-traumatic stress disorder, chronic Psoriatic arthritis Social History Smoking and tobacco status: current every day smoker cigarettes Packs smoked per day: 1 Smoking risk assessment/counseling performed?: Yes Tobacco counseling given: counseling >3 minutes Vitals/I&O/Wt Last Vital Signs Temp 97.8 F 07/13/21 04:00 Pulse 90 07/13/21 04:00 Resp 16 07/13/21 04:00 BP 107/66 07/13/21 04:00 Pulse Ox 90 07/13/21 04:00 07/12/21 07/13/21 07/13/21 22:59 06:59 14:59 Intake Total 2600 / 2600 Balance 2600 / 2600 Weight last 48 hrs Weight 160 lb Weight 160 lb Physical Exam Const: COMMON NORMALS: no acute distress and patient oriented x3 GENERAL APPEARANCE: cooperative ORIENTATION/CONSCIOUSNESS: Yes awake, Yes oriented to person, Yes oriented to place and Yes oriented to time HENMT: COMMON NORMALS: normocephalic HEAD & SCALP: normocephalic Eye: COMMON NORMALS: Equal, round and reactive pupils present and no scleral icterus PUPIL: Yes Equal, round and reactive pupils present Lymph: LYMPHATIC: no lymphadenopathy noted Chest: COMMONS NORMALS: normal inspection of the chest Resp: COMMON NORMALS: normal respiratory effort and clear to auscultation bilaterally AUSCULTATION: clear to auscultation bilaterally Cardio: COMMON NORMALS: S1 normal heart sound present and S2 normal heart sound present; negative for No murmurs present (Cardio) HEART SOUNDS: S1 normal heart sound present and S2 normal heart sound present GI: COMMON NORMALS: Soft to palpation; negative for No hepatosplenomegaly present INSPECTION: Yes normal to inspection PALPATION: Yes Soft to palpation, No Firmness to palpation present (GI), No Tenderness to palpation present (GI), No Guarding due to palpation present (GI), No Rigid due to palpation and No No hepatosplenomegaly present Neuro: COMMON NORMALS: patient oriented x3 SENSORIUM/ORIENTATION: Yes oriented to person, Yes oriented to place and Yes oriented to time Psych: COMMON NORMALS: mental status grossly normal Skin: COMMON NORMALS: no rashes or lesions noted GENERAL SKIN EXAM: no rashes or lesions noted A&P Assessment and plan (1) GI bleeding: Plan of care; After thorough history and physical examination and reviewing the chart, plan to perform a diagnostic esophagogastroduodenoscopy with possible biopsy in the GI lab tomorrow. I discussed with the patient in detail the risk,benefits,alternatives and indications.The risk of aspiration, bleeding, soft tissue injury, perforation of the stomach/esophagus and other potential concomitant complications were explained to the patient in details,aslo the potential need for Thoracic and or Abdominal surgery to repair any complications.The patient understood this well and did agree to proceed. Rationale was carefully and clearly discussed with the patient.Appropriate informed consent have been reviewed and signed All questions have been answered and all concerns have been addressed to patient's satisfaction. Meanwhile patient can have clear liquid diet for now Status: Acute Consult Attestations Medical Necessity Statement: Per admitting service Time Spent in Patient Care: (>than 50% of time spent in counselling and/or direct pt care on unit) . Coding Level of Care Code Acute Ship'S Officer for [place] Fwd Exam Comprehensive Diagnoses GI bleeding K92.2
[2021-07-13] MEDS: LORazepam 2 mg Tablet PO ×2 (08:49→20:34)
[2021-07-13 12:09] LABS: Glucose Point of Care 94 mg/dL (70-110)
--- NOTE | 2021-07-13 12:51 | PC.PHAR ---
pt wont stay awake to verify medications-medications entered are meds that were on previous entered med list and what shows has been filled on ext med history
[2021-07-13] MEDS: lidocaine 1% 5 ML in potassium chloride premix 100 ML 25 ML IV ×2 (13:31→20:59)
[2021-07-13 14:24] LABS: Hematocrit 42.7 % (37.0-47.0); Hemoglobin 14.4 g/dL (11.5-15.3)
[2021-07-13 14:38] LABS: Blood Urea Nitrogen 35 mg/dL (6-20); Calcium 7.9 mg/dL (8.5-10.5); Carbon Dioxide 31 mmol/L (22-29); Chloride 89 mmol/L (98-107); Glomerular Filtration Rate 29.4 mL/min (90-130); Glucose 89 mg/dL (65-115); Magnesium 2.4 mg/dL (1.7-2.3); Osmolality Calculated 281 mOsm/kg (285-295); Sodium 132 mmol/L (136-145)
[2021-07-13 14:40] LABS: Anion Gap 15.1 (5-19); Potassium 3.1 mmol/L (3.5-5.1)
[2021-07-13] MEDS: morphine 4 mg/mL SDV 1 mL IVP (15:31)
[2021-07-13] MEDS: ondansetron 2 mg/ML SDV 2 mL 4 MG IVP (15:32)
[2021-07-13] MEDS: ciprofloxacin 400 MG/200 ML PREMIX 200 MG IV (15:32)
[2021-07-13 16:31] LABS: Glucose Point of Care 108 mg/dL (70-110)
[2021-07-13] MEDS: metroNIDAZOLE IV 500 MG/100 ML PREMIX 100 MG IV ×2 (17:15→23:55)
[2021-07-13 19:02] LABS: Hematocrit 38.6 % (37.0-47.0); Hemoglobin 13.2 g/dL (11.5-15.3)
--- NOTE | 2021-07-13 19:49 | P.PN_ITS ---
Subjective Subjective: Interval history: Reports epigastric abdominal pain. Vitals/I&O/Wt Last Vital Signs Temp 97.7 F 07/13/21 15:49 Pulse 87 07/13/21 15:49 Resp 18 07/13/21 15:49 BP 131/89 07/13/21 15:49 Pulse Ox 95 07/13/21 15:49 07/13/21 07/13/21 07/13/21 06:59 14:59 22:59 Intake Total 2600 / 2600 2152 / 2152 885 / 3037 Balance 2600 / 2600 2152 / 2152 885 / 3037 Weight last 48 hrs Weight 72.575 kg Weight 72.575 kg Physical Exam Const: COMMON NORMALS: no acute distress and patient oriented x3 GENERAL APPEARANCE: disheveled HENMT: COMMON NORMALS: oropharynx normal Neck/C-Spine: COMMON NORMALS: no JVD Resp: COMMON NORMALS: normal respiratory effort and clear to auscultation bilaterally AUSCULTATION: clear to auscultation bilaterally Cardio: COMMON NORMALS: no JVD, regular rhythm, S1 normal heart sound present, S2 normal heart sound present and No murmurs present (Cardio) RHYTHM: regular rhythm HEART SOUNDS: S1 normal heart sound present and S2 normal heart sound present GI: COMMON NORMALS: Normal to inspection, nondistended, normoactive bowel sounds present and Soft to palpation PALPATION: Yes Soft to palpation and Yes Tenderness to palpation present (GI) (epigastric) Extremity: COMMON NORMALS: no joint enlargement and no pedal edema Neuro: COMMON NORMALS: patient oriented x3 and moves all extremities Skin: COMMON NORMALS: no rashes or lesions noted GENERAL SKIN EXAM: no rashes or lesions noted Data : 07/13/21 18:44 07/13/21 13:47 A&P Assessment and plan (1) Hypokalemia: Additional replacement requested. Magnesium replacement quested. Recheck levels. Status: Acute (2) GI bleeding: Continue PPI IV twice daily. EGD planned for tomorrow. Monitor hemoglobin. Stop naproxen. Status: Acute (3) Anxiety: Status: Acute (4) Hypertension: Status: Acute (5) Acute kidney injury: Improving. Continue hydration. Stop naproxen. Recheck renal function. Status: Acute (6) Acute dehydration: Continue hydration. Status: Acute (7) Vomiting: Status: Acute (8) Acute hyponatremia: Status: Acute (9) Cannabis dependence, uncomplicated: Status: Acute Additional A&P Information Abdominal pain Likely gastroenteritis: Requested stool studies. Due to persistent abdominal pain, leukocytosis, empirically started Cipro and Flagyl. Leukocytosis. Hypertension. As needed labetalol. Hyponatremia improving. Most likely secondary to dehydration. Attestations Medical Necessity Statement*: Continue admission for assessment management of GI bleeding, dehydration, hyperkalemia, LEVY, persistent abdominal pain with possible enteritis. Coding Level of Care Code Acute Resident Surgeon for [facility] Fwd Diagnoses Hypokalemia E87.6 GI bleeding K92.2 Anxiety F41.9 Hypertension I10 Acute kidney injury N17.9 Acute dehydration E86.0 Vomiting R11.10 Acute hyponatremia E87.1 Cannabis dependence, uncomplicated F12.20
[2021-07-13 21:20] LABS: Glucose Point of Care 96 mg/dL (70-110)
[2021-07-13] MEDS: lidocaine 2% viscous 15 ML, aluminum-mag hydrox-simethicon 30 ML, sucralfate oral liq 1 GM PO ×2 (21:23→23:54)
[2021-07-14] VITALS (14 sets, daily range): BP systolic 129–175; BP diastolic 87–129; PULSE 18–83; RESP 17–86; TEMP 36.4–36.9; O2SAT 91–95
[2021-07-14] MEDS: ciprofloxacin 400 MG/200 ML PREMIX 200 MG IV (04:35)
[2021-07-14] MEDS: sodium chloride 0.9% 1,000 ML 150 ML IV (04:35)
[2021-07-14] MEDS: morphine 4 mg/mL SDV 1 mL 2 MG IVP (05:39)
[2021-07-14 06:17] LABS: Basophils % 0.2 %; Eosinophils # 0.1 10^3/uL (0.0-0.8); Eosinophils % 0.8 %; Hematocrit 39.4 % (37.0-47.0); Hemoglobin 12.9 g/dL (11.5-15.3); Lymphocytes # 2.1 10^3/uL (0.8-4.8); Lymphocytes % 22.8 %; Mean Corpuscular HGB Conc 32.7 g/dL (30.0-36.0); Mean Corpuscular Hemoglobin 31.3 pg (28.0-34.0); Mean Corpuscular Volume 95.6 fl (81-99); Monocytes # 0.9 10^3/uL (0.2-0.9); Monocytes % 9.9 %; Neutrophils # 6.05 10^3/uL (1.8-7.7); Neutrophils % 65.9 %; Nucleated Red Blood Cells % 0 %; Platelet Count 273 10^3/cmm (130-400); Red Blood Count 4.12 10^6/uL (4.1-5.3); Red Cell Distribution Width 14.6 % (12.1-15.1); White Blood Count 9.2 10^3/uL (4.0-10.0)
[2021-07-14 06:35] LABS: Alanine Aminotransferase 24 U/L (0-33); Albumin Level 3.2 g/dL (3.5-5.2); Alkaline Phosphatase 85 IU/L (35-105); Anion Gap 11.3 (5-19); Aspartate Amino Transferase 52 U/L (0-32); Blood Urea Nitrogen 19 mg/dL (6-20); Calcium 8.2 mg/dL (8.5-10.5); Carbon Dioxide 27 mmol/L (22-29); Chloride 98 mmol/L (98-107); Globulin 2.6 g/dL (1.3-4.6); Glucose 104 mg/dL (65-115); Magnesium 2.3 mg/dL (1.7-2.3); Osmolality Calculated 279 mOsm/kg (285-295); Potassium 3.3 mmol/L (3.5-5.1); Sodium 133 mmol/L (136-145); Total Bilirubin 0.6 mg/dL (0.15-1.2); Total Protein 5.8 g/dL (6.6-8.7)
[2021-07-14] MEDS: metroNIDAZOLE IV 500 MG/100 ML PREMIX 100 MG IV (07:56)
--- NOTE | 2021-07-14 08:42 | P.PN_ITS ---
Subjective Subjective: Interval history: Patient overall seems to be about the same continues to complain of abdominal pain but no hematemesis. Medications: Reviewed: Yes Vitals/I&O/Wt Last Vital Signs Temp 98.4 F 07/14/21 07:20 Pulse 79 07/14/21 07:20 Resp 18 07/14/21 07:20 BP 175/116 07/14/21 08:38 Pulse Ox 92 07/14/21 07:20 07/13/21 07/14/21 07/14/21 22:59 06:59 14:59 Intake Total 1705 / 3857 1355 / 5212 Output Total 200 / 200 Balance 1705 / 3857 1155 / 5012 Weight last 48 hrs Weight 160 lb Weight 160 lb Physical Exam Narrative: EXAM NARRATIVE: Patient is conscious alert oriented X3 BMI 26 Head and neck examination PERRLA no masses no cervical lymphadenopathy no jaundice Abdomen nontender nondistended soft no organomegaly guarding or rigidity/no signs of peritonitis Data : 07/14/21 05:48 07/14/21 05:48 A&P Assessment and plan (1) GI bleeding: Plan of care; After thorough history and physical examination and reviewing the chart, plan to perform a diagnostic esophagogastroduodenoscopy with possible biopsy in the GI lab today. I discussed with the patient in detail the risk,benefits,alternatives and indications.The risk of aspiration, bleeding, soft tissue injury, perforation of the stomach/esophagus and other potential concomitant complications were explained to the patient in details,aslo the potential need for Thoracic and or Abdominal surgery to repair any complications.The patient understood this well and did agree to proceed. Rationale was carefully and clearly discussed with the patient.Appropriate informed consent have been reviewed and signed All questions have been answered and all concerns have been addressed to patie nt's satisfaction. Meanwhile patient can have clear liquid diet for now Status: Acute Attestations Medical Necessity Statement*: Per admitting service Time Spent in Patient Care: (>than 50% of time spent in counselling and/or direct pt care on unit) . Coding Level of Care Code Acute [employer] Registrar for 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 Diagnoses GI bleeding K92.2
[2021-07-14] MEDS: ondansetron 2 mg/ML SDV 2 mL 4 MG IVP (09:13)
[2021-07-14] MEDS: labetalol 5 mg/mL SDV 20mL 10 MG IVP (09:14)
[2021-07-14] MEDS: sodium chloride 0.9% 1,000 ML 30 ML IV (10:39)
--- NOTE | 2021-07-14 11:31 | P.ANESASSM_ITS ---
Pre-Anesthetic Assessment Pre-Anesthetic Assessment: Height/Weight: Height 1.68 m Weight 72.575 kg Temp Pulse Resp BP Pulse Ox 97.8 F 73 18 141/97 93 07/14/21 10:28 07/14/21 10:28 07/14/21 10:28 07/14/21 10:28 07/14/21 10:28 Preop Diagnosis: GI bleed Proposed Procedure: Operation Date: 07/14/21 10:45 Proposed Procedures p EGD(Not Applicable) - Lavell Tejeda MD Familial anesthetic complications: None Was Beta Sanjuanita taken within 24 hours: N/A Was Clonidine taken within 24 hours: N/A Last intake: Intake Last Liquid Date 07/13/21 Last Liquid Time 15:30 Last Solid Date 07/12/21 Last Solid Time 06:00 Social: Social History: No alcohol and No tobacco Exam: Pre-Anes Outpt Exam: alert, oriented x 3, clear to auscultation bilaterally and regular rate & rhythm Airway: Cervical ROM: WNL MP: 3 Dentition: Full CV/HEM: CV/HEM: HTN GI: GI: GERD Comments: Gi bleed Musc/skel: Comments: psoriasis Anesthetic Plan: ASA status: 3 Anesthesia: MAC Risk of > 500 ml blood loss (7ml/kg in children): No Meds/Allergies Current Medications: Current Medications Generic Name Dose Route Start Last Admin Trade Name Freq PRN Reason Stop Dose Admin Acetaminophen 650 mg 07/12/21 23:30 07/13/21 20:33 Acetaminophen 32 5 Mg Tablet PO 650 mg Q6H PRN Administration Mild/Mod Pain Or Temp >/= 101 Sodium Chloride 1,000 mls @ 150 m ls/hr 07/12/21 23:30 07/14/21 04:35 Sodium Chloride 0.9% IV 150 mls/hr .Q6H40M KATE Administration Metronidazole 500 mg in 100 mls @ 100 mls/hr 07/13/21 16:30 07/14/21 09:18 Flagyl Iv IV Infused Q8H KATE Infusion Protocol Ciprofloxacin/Dext yanet 400 mg in 200 mls @ 200 mls/hr 07/13/21 16:00 07/14/21 05:54 Cipro IV Infused Q12H KATE Infusion Protocol Sodium Chloride 1,000 mls @ 30 ml s/hr 07/14/21 10:30 07/14/21 10:39 Sodium Chloride 0.9% IV 07/15/21 10:29 30 mls/hr .Q24H KATE Administration Insulin Human Lisp ro 0 unit 07/12/21 23:30 07/14/21 08:18 Insulin Lispro 1 00 Unit/1 Ml SUBCUT Not Given Q6H KATE Protocol Labetalol HCl 10 mg 07/12/21 23:30 07/14/21 09:14 Labetalol 5 Mg/M l Sdv 20ml IVP 10 mg Q4H PRN Administration SBP above 160 Lanolin 1 applic 07/13/21 01:17 07/13/21 01:36 Lanolin Oint 7 G m TOPICAL 1 applic PRN PRN Administration DRYNESS Lorazepam 2 mg 07/12/21 23:30 07/13/21 20:34 Lorazepam 2 Mg T ablet PO 2 mg TID PRN Administration nausea and vomiti ng Morphine Sulfate 2 mg 07/14/21 03:21 07/14/21 05:39 Morphine 4 Mg/Ml Sdv 1 Ml IVP 2 mg Q4H PRN Administration SEVERE PAIN Ondansetron HCl 4 mg 07/12/21 23:30 07/14/21 09:13 Ondansetron 2 Mg /Ml Sdv 2 Ml IVP 4 mg Q6H PRN Administration vomiting, or N/V if npo Pantoprazole Sodiu m 40 mg 07/12/21 23:30 07/13/21 21:22 Pantoprazole 40 Mg Sdv IVP 40 mg Q12H KATE Administration Promethazine HCl 12.5 mg 07/12/21 23:30 07/13/21 18:37 Promethazine 25 Mg/Ml Sdv 1 Ml IM 12.5 mg Q6H PRN Administration NAUSEA PFSH Anesthesia PFSH: Medical History Cannabis dependence, uncomplicated High risk medication use Major depressive disorder, recurrent, in partial remission Plaque psoriasis Post-traumatic stress disorder, chronic Psoriatic arthritis Social History Smoking and tobacco status: current every day smoker cigarettes Packs smoked per day: 1 Smoking risk assessment/counseling performed?: Yes Tobacco counseling given: counseling >3 minutes Data Anesthesia CBC & Chem 7: 07/14/21 05:48 07/14/21 05:48 Other Labs: Laboratory Results - last 48 hr 07/12/21 07/12/21 07/12/21 19:52 19:52 22:56 WBC 21.1 H RBC 5.51 H Hgb 17.8 H Hct 49.0 H MCV 88.9 MCH 32.3 MCHC 36.3 H RDW 14.3 Plt Count 399 MPV 9.9 Neut % (Auto) 71.6 Lymph % (Auto) 5.8 Hartley % (Auto) 7.5 Eos % (Auto) 13.9 Baso % (Auto) 0.3 Neut # (Auto) 15.14 H Lymph # (Auto) 1.2 Hartley # (Auto) 1.6 H Eos # (Auto) 2.9 H Baso # (Auto) 0.1 Nucleated RBC % (auto) 0 Nucleated RBCs # 0.0 Sodium 125 L Potassium 3.2 L Chloride 69 L Carbon Dioxide 34 H Anion Gap 25.2 H BUN 40 H Creatinine 4.3 H GFR Calculation 10.8 L Glucose 127 H POC Glucose Estimat Average Glucose Hemoglobin A1c Calculated Osmolality 271 L Calcium 9.8 Phosphorus Magnesium Total Bilirubin 1.0 AST 59 H ALT 21 Alkaline Phosphatase 154 H Total Protein 8.9 H Albumin 4.6 Globulin 4.3 Lipase 19 Urine Color Urine Appearance Urine pH Ur Specific [place] Urine Protein Urine Glucose (UA) Urine Ketones Urine Blood Urine Nitrate Urine Bilirubin Urine Urobilinogen Ur Leukocyte Esterase Urine RBC Urine WBC Ur Eosinophil Smear 0 Ur Squamous Epith Cells Amorphous Sediment Urine Bacteria Hyaline Casts Urine Eosinophils No eosinophils seen Ur Random Sodium Urine Creatinine Urine Opiates Screen Ur Barbiturates Screen Ur Phencyclidine Scrn Ur Amphetamines Screen U Benzodiazepines Scrn Urine Cocaine Screen U Marijuana (THC) Screen 07/12/21 07/12/21 07/12/21 22:56 22:56 23:52 WBC RBC Hgb Hct MCV MCH MCHC RDW Plt Count MPV Neut % (Auto) Lymph % (Auto) [place] % (Auto) Eos % (Auto) Baso % (Auto) Neut # (Auto) Lymph # (Auto) [place] # (Auto) Eos # (Auto) Baso # (Auto) Nucleated RBC % (auto) Nucleated RBCs # Sodium Potassium Chloride Carbon Dioxide Anion Gap BUN Creatinine GFR Calculation Glucose POC Glucose 142 H Estimat Average Glucose Hemoglobin A1c Calculated Osmolality Calcium Phosphorus Magnesium Total Bilirubin AST ALT Alkaline Phosphatase Total Protein Albumin Globulin Lipase Urine Color Yellow Urine Appearance Clear Urine pH 7 Ur Specific [place] 1.005 Urine Protein 3+ H Urine Glucose (UA) Norm Urine Ketones Negative Urine Blood 2+ H Urine Nitrate Negative Urine Bilirubin 1+ H Urine Urobilinogen Norm Ur Leukocyte Esterase 1+ H Urine RBC 5-10 H Urine WBC 0-4 H Ur Eosinophil Smear Ur Squamous Epith Cells 10-15 H Amorphous Sediment 3+ Urine Bacteria Trace Hyaline Casts 0-4 H Urine Eosinophils Ur Random Sodium 21 Urine Creatinine 122 Urine Opiates Screen Positive H Ur Barbiturates Screen Negative Ur Phencyclidine Scrn Negative Ur Amphetamines Screen Negative U Benzodiazepines Scrn Negative Urine Cocaine Screen Negative U Marijuana (THC) Screen Positive H 07/13/21 07/13/21 07/13/21 01:00 05:21 05:24 WBC 18.1 H RBC 4.58 Hgb 15.6 H 14.8 Hct 43.9 41.8 MCV 91.3 MCH 32.3 MCHC 35.4 RDW 14.2 Plt Count 329 MPV 10.3 Neut % (Auto) 81.5 Lymph % (Auto) 8.1 Hartley % (Auto) 9.7 Eos % (Auto) 0.1 Baso % (Auto) 0.2 Neut # (Auto) 14.76 H Lymph # (Auto) 1.5 Hartley # (Auto) 1.8 H Eos # (Auto) 0.0 Baso # (Auto) 0.0 Nucleated RBC % (auto) 0 Nucleated RBCs # 0.0 Sodium Potassium Chloride Carbon Dioxide Anion Gap BUN Creatinine GFR Calculation Glucose POC Glucose 120 H Estimat Average Glucose Hemoglobin A1c Calculated Osmolality Calcium Phosphorus Magnesium Total Bilirubin AST ALT Alkaline Phosphatase Total Protein Albumin Globulin Lipase Urine Color Urine Appearance Urine pH Ur Specific [place] Urine Protein Urine Glucose (UA) Urine Ketones Urine Blood Urine Nitrate Urine Bilirubin Urine Urobilinogen Ur Leukocyte Esterase Urine RBC Urine WBC Ur Eosinophil Smear Ur Squamous Epith Cells Amorphous Sediment Urine Bacteria Hyaline Casts Urine Eosinophils Ur Random Sodium Urine Creatinine Urine Opiates Screen Ur Barbiturates Screen Ur Phencyclidine Scrn Ur Amphetamines Screen U Benzodiazepines Scrn Urine Cocaine Screen U Marijuana (THC) Screen 07/13/21 07/13/21 07/13/21 05:24 05:24 11:56 WBC RBC Hgb Hct MCV MCH MCHC RDW Plt Count MPV Neut % (Auto) Lymph % (Auto) Hart[place] % (Auto) Eos % (Auto) Baso % (Auto) Neut # (Auto) Lymph # (Auto) [place] # (Auto) Eos # (Auto) Baso # (Auto) Nucleated RBC % (auto) Nucleated RBCs # Sodium 130 L Potassium 2.7 L* Chloride 82 L Carbon Dioxide 33 H Anion Gap 17.7 BUN 37 H Creatinine 2.7 H GFR Calculation 18.4 L Glucose 99 POC Glucose 94 Estimat Average Glucose 103 Hemoglobin A1c 5.2 Calculated Osmolality 279 L Calcium 7.8 L Phosphorus 4.9 H Magnesium 1.9 Total Bilirubin 0.7 AST 62 H ALT 21 Alkaline Phosphatase 104 Total Protein 6.6 D Albumin 3.6 Globulin 3.0 Lipase Urine Color Urine Appearance Urine pH Ur Specific [place] Urine Protein Urine Glucose (UA) Urine Ketones Urine Blood Urine Nitrate Urine Bilirubin Urine Urobilinogen Ur Leukocyte Esterase Urine RBC Urine WBC Ur Eosinophil Smear Ur Squamous Epith Cells Amorphous Sediment Urine Bacteria Hyaline Casts Urine Eosinophils Ur Random Sodium Urine Creatinine Urine Opiates Screen Ur Barbiturates Screen Ur Phencyclidine Scrn Ur Amphetamines Screen U Benzodiazepines Scrn Urine Cocaine Screen U Marijuana (THC) Screen 07/13/21 07/13/21 07/13/21 13:47 13:47 13:47 WBC RBC Hgb 14.4 Hct 42.7 MCV MCH MCHC RDW Plt Count MPV Neut % (Auto) Lymph % (Auto) [place] % (Auto) Eos % (Auto) Baso % (Auto) Neut # (Auto) Lymph # (Auto) [place] # (Auto) Eos # (Auto) Baso # (Auto) Nucleated RBC % (auto) Nucleated RBCs # Sodium 132 L Potassium 3.1 L Chloride 89 L Carbon Dioxide 31 H Anion Gap 15.1 BUN 35 H Creatinine 1.8 H GFR Calculation 29.4 L Glucose 89 POC Glucose Estimat Average Glucose Hemoglobin A1c Calculated Osmolality 281 L Calcium 7.9 L Phosphorus Magnesium 2.4 H Cancelled Total Bilirubin AST ALT Alkaline Phosphatase Total Protein Albumin Globulin Lipase Urine Color Urine Appearance Urine pH Ur Specific [place] Urine Protein Urine Glucose (UA) Urine Ketones Urine Blood Urine Nitrate Urine Bilirubin Urine Urobilinogen Ur Leukocyte Esterase Urine RBC Urine WBC Ur Eosinophil Smear Ur Squamous Epith Cells Amorphous Sediment Urine Bacteria Hyaline Casts Urine Eosinophils Ur Random Sodium Urine Creatinine Urine Opiates Screen Ur Barbiturates Screen Ur Phencyclidine Scrn Ur Amphetamines Screen U Benzodiazepines Scrn Urine Cocaine Screen U Marijuana (THC) Screen 07/13/21 07/13/21 07/13/21 16:28 18:44 21:10 WBC RBC Hgb 13.2 Hct 38.6 MCV MCH MCHC RDW Plt Count MPV Neut % (Auto) Lymph % (Auto) [place] % (Auto) Eos % (Auto) Baso % (Auto) Neut # (Auto) Lymph # (Auto) [place] # (Auto) Eos # (Auto) Baso # (Auto) Nucleated RBC % (auto) Nucleated RBCs # Sodium Potassium Chloride Carbon Dioxide Anion Gap BUN Creatinine GFR Calculation Glucose POC Glucose 108 96 Estimat Average Glucose Hemoglobin A1c Calculated Osmolality Calcium Phosphorus Magnesium Total Bilirubin AST ALT Alkaline Phosphatase Total Protein Albumin Globulin Lipase Urine Color Urine Appearance Urine pH Ur Specific [place] Urine Protein Urine Glucose (UA) Urine Ketones Urine Blood Urine Nitrate Urine Bilirubin Urine Urobilinogen Ur Leukocyte Esterase Urine RBC Urine WBC Ur Eosinophil Smear Ur Squamous Epith Cells Amorphous Sediment Urine Bacteria Hyaline Casts Urine Eosinophils Ur Random Sodium Urine Creatinine Urine Opiates Screen Ur Barbiturates Screen Ur Phencyclidine Scrn Ur Amphetamines Screen U Benzodiazepines Scrn Urine Cocaine Screen U Marijuana (THC) Screen 07/14/21 07/14/21 05:48 05:48 WBC 9.2 RBC 4.12 Hgb 12.9 Hct 39.4 MCV 95.6 MCH 31.3 MCHC 32.7 D RDW 14.6 Plt Count 273 MPV 10.0 Neut % (Auto) 65.9 Lymph % (Auto) 22.8 [place]ley % (Auto) 9.9 Eos % (Auto) 0.8 Baso % (Auto) 0.2 Neut # (Auto) 6.05 Lymph # (Auto) 2.1 [place]ley # (Auto) 0.9 Eos # (Auto) 0.1 Baso # (Auto) 0.0 Nucleated RBC % (auto) 0 Nucleated RBCs # 0.0 Sodium 133 L Potassium 3.3 L Chloride 98 Carbon Dioxide 27 Anion Gap 11.3 BUN 19 Creatinine 1.0 H GFR Calculation 58.0 L Glucose 104 POC Glucose Estimat Average Glucose Hemoglobin A1c Calculated Osmolality 279 L Calcium 8.2 L Phosphorus Magnesium 2.3 Total Bilirubin 0.6 AST 52 H ALT 24 Alkaline Phosphatase 85 Total Protein 5.8 L Albumin 3.2 L Globulin 2.6 Lipase Urine Color Urine Appearance Urine pH Ur Specific [place] Urine Protein Urine Glucose (UA) Urine Ketones Urine Blood Urine Nitrate Urine Bilirubin Urine Urobilinogen Ur Leukocyte Esterase Urine RBC Urine WBC Ur Eosinophil Smear Ur Squamous Epith Cells Amorphous Sediment Urine Bacteria Hyaline Casts Urine Eosinophils Ur Random Sodium Urine Creatinine Urine Opiates Screen Ur Barbiturates Screen Ur Phencyclidine Scrn Ur Amphetamines Screen U Benzodiazepines Scrn Urine Cocaine Screen U Marijuana (THC) Screen Cardiac Studies: No Data to Display
--- NOTE | 2021-07-14 12:34 | ANE.PACU2 ---
Inpatient post-anesthesia follow up: Airway intact: Yes Vital signs: Temperature 97.8 F Pulse Rate 73 Respiratory Rate 18 Blood Pressure 141/97 Pulse Oximetry 93 Oxygen Delivery Me thod [ Nasal Cannula Current Rate & Del murray] Oxygen Delivery Me thod Room Air Oxygen Flow Rate [ Current Rate 2 & Delivery] Oxygen Flow Rate 2 Fraction of Inspir ed Oxygen Hydration adequate: Yes Nausea and vomiting: No Pain level: 1 Mental status: Baseline
--- NOTE | 2021-07-14 14:27 | PC.CHAP ---
Pastoral Care Encounter/Spiritual Assessment Type of Contact [] Declined concrete craftsman visit [] Patient/Family/Request visit [] Outpatient visit [] Follow-up visit [] Physician referral [] Code/Alert [] Routine visit [] Staff referral [] Actively dying [] Patient sleeping [] Family support [] [] Out of room [] Palliative care [] [] Receiving care in room [] Pre-surgical visit [] Trauma [] Long length of stay [] ICU visit [] Other: Relational/Emotional Strength [] Patient feels connected with others/family/visitors/staff [] Distress [] Loneliness/isolation [] Abandonment Spirituality of Patient [] Person of Ceci [] Attends Hindu of their Ceci [] Believes in Prayer [] Reads Bible or Tenriism materials [] There are Spiritual issues to be addressed Film Critic Interventions [] Prayer [] Active listening [] Non-anxious presence [] Spiritual/emotional support [] Crisis/trauma care [] Spiritual counseling [] Bereavement support [] Provided bereavement packet [] Provided Bible/devotional materials [] Provided toy/stuffed animal, coloring book to patient or family member [] Provided Communion [] Anointing/[place] [] Salvation [] Completed spiritual assessment [] Other: Impact on Illness or Injury [] Angry [] Fearful [] Anxious [] Often cries [] Exhaustion [] Unable to work [] Unable to attend advent [] Unable to walk/stand [] Unable to read [] Unable to drive [] Unable to eat/drink [] Unable to sleep [] Unable to be with family [] Patient intubated [] Other: Summary Time spent with patient Pastoral Care Encounter/Spiritual Assessment Type of Contact [] Declined concrete craftsman visit [] Patient/Family/Request visit [] Outpatient visit [] Follow-up visit [] Physician referral [] Code/Alert [] Routine visit [] Staff referral [] Actively dying [] Patient sleeping [] Family support [] [XX] Out of room [] Palliative care [] [] Receiving care in room [] Pre-surgical visit [] Trauma [] Long length of stay [] ICU visit [] Other: Relational/Emotional Strength [] Patient feels connected with others/family/visitors/staff [] Distress [] Loneliness/isolation [] Abandonment Spirituality of Patient [] Person of Ceci [] Attends Hindu of their Ceci [] Believes in Prayer [] Reads Bible or Tenriism materials [] There are Spiritual issues to be addressed Film Critic Interventions [] Prayer [] Active listening [] Non-anxious presence [] Spiritual/emotional support [] Crisis/trauma care [] Spiritual counseling [] Bereavement support [] Provided bereavement packet [] Provided Bible/devotional materials [] Provided toy/stuffed animal, coloring book to patient or family member [] Provided Communion [] Anointing/[place] [] Salvation [] Completed spiritual assessment [] Other: Impact on Illness or Injury [] Angry [] Fearful [] Anxious [] Often cries [] Exhaustion [] Unable to work [] Unable to attend advent [] Unable to walk/stand [] Unable to read [] Unable to drive [] Unable to eat/drink [] Unable to sleep [] Unable to be with family [] Patient intubated [] Other: Summary Patient out of room for tests. Follow up later. Time spent with patient
--- NOTE | 2021-07-14 16:53 | P.DS_ITS ---
Discharge Providers Date of Admission: 07/12/21 21:58 Date of Discharge: July 14, 2021 Attending Provider at Admission: Marco Lima Attending Provider at Discharge: Carlos Corbett Primary Care Provider: Tom Dan NP Diagnoses at Discharge Discharge Diagnosis (1) GI bleeding: Status: Acute Reason for Visit Reason for Visit: Vomiting for over 24 hrs Hospital Course Hospital Course Pleasant 51-year-old lady with psoriasis and psoriatic arthritis, was admitted for assessment of management due to abdominal cramps, vomiting, diarrhea, with noted coffee-ground emesis was admitted and managed for GI bleed, with twice daily IV PPI, bowel rest, IV hydration, nausea control, initially also with dehydration, acute kidney injury, at home takes BC powder, appears was also at some point taking naproxen, reports only occasional alcohol. Normal lipase. Received treatment for pain. Due to finding suspicious for infectious inflammatory jejunitis stool studies were requested, although diarrhea has resolved. Due to persistent abdominal pain and symptoms, was started empirically on Cipro and Flagyl and will complete a short course. Underwent diagnostic EGD due to GI bleeding, with finding of duque esophagitis, moderate gastritis, moderate duodenitis. No active bleeding. He is continued on PPI and sucralfate is added. She has been tolerating clear liquid diet with resolution of nausea vomiting and diarrhea. Denies abdominal pain beyond some bloating and soreness after vomiting. This afternoon she reports she is feeling much better and requests to be discharged not wanting to stay in the hospital any longer. Discussed with her concern regarding decreasing hemoglobin, and wanting to reassess again in the morning, however, she really wants to discharge. States understands the risk, and states will seek medical attention immediately in case of any concerning symptoms. Her acute kidney injury has been resolving, creatinine is down to 1. Additionally noted hyponatremia on presentation, sodium 125, has been resolving, currently up to 133. Received replacement for hypokalemia, and is given additional replacement at discharge. Please recheck electrolyte levels, as well as renal function. Physical Exam Const: COMMON NORMALS: no acute distress and patient oriented x3 GENERAL APPEARANCE: disheveled HENMT: COMMON NORMALS: oropharynx normal Neck/C-Spine: COMMON NORMALS: no JVD Resp: COMMON NORMALS: normal respiratory effort and clear to auscultation bilaterally AUSCULTATION: clear to auscultation bilaterally Cardio: COMMON NORMALS: no JVD, regular rhythm, S1 normal heart sound present, S2 normal heart sound present and No murmurs present (Cardio) RHYTHM: regular rhythm HEART SOUNDS: S1 normal heart sound present and S2 normal heart sound present GI: COMMON NORMALS: Normal to inspection, nondistended, normoactive bowel sounds present and Soft to palpation PALPATION: Yes Soft to palpation and Yes Tenderness to palpation present (GI) (minimal epigastric) Extremity: COMMON NORMALS: no joint enlargement and no pedal edema Neuro: COMMON NORMALS: patient oriented x3 and moves all extremities Skin: COMMON NORMALS: no rashes or lesions noted GENERAL SKIN EXAM: no rashes or lesions noted Discharge Data Data Completed and Pending: Completed Studies During Hospitalization Category Date Time Status CT abdomen pelvis w con* [id number] Urge nt Cat Scan 07/12/21 19:27 Completed Pending at discharge Category Date Time Status Complete Blood Co unt w/Auto AM LABS Lab 07/15/21 04:00 Ordered Complete Blood Co unt w/Auto AM LABS Lab 07/16/21 04:00 Ordered Comprehensive Met abolic Panel AM LA BS Lab 07/15/21 04:00 Ordered Comprehensive Met abolic Panel AM LA BS Lab 07/16/21 04:00 Ordered Enteric Bacterial Panel by PCR Rout ine Lab 07/13/21 10:59 Ordered Enteric Parasite Panel by PCR Ángeli ne Lab 07/13/21 10:59 Ordered Immunochemical Fe khadijah OCB Routine Lab 07/12/21 23:30 Ordered Pathology: Surgic al [PTH] Routine Pth 07/14/21 12:33 Received Labs from last 24 hours 07/14/21 07/14/21 07/13/21 05:48 05:48 21:10 WBC 9.2 RBC 4.12 Hgb 12.9 Hct 39.4 MCV 95.6 MCH 31.3 MCHC 32.7 D RDW 14.6 Plt Count 273 MPV 10.0 Neut % (Auto) 65.9 Lymph % (Auto) 22.8 [place] % (Auto) 9.9 Eos % (Auto) 0.8 Baso % (Auto) 0.2 Neut # (Auto) 6.05 Lymph # (Auto) 2.1 [place] # (Auto) 0.9 Eos # (Auto) 0.1 Baso # (Auto) 0.0 Nucleated RBC % (a uto) 0 Nucleated RBCs # 0.0 Sodium 133 L Potassium 3.3 L Chloride 98 Carbon Dioxide 27 Anion Gap 11.3 BUN 19 Creatinine 1.0 H GFR Calculation 58.0 L Glucose 104 POC Glucose 96 Calculated Osmolal ity 279 L Calcium 8.2 L Magnesium 2.3 Total Bilirubin 0.6 AST 52 H ALT 24 Alkaline Phosphata se 85 Total Protein 5.8 L Albumin 3.2 L Globulin 2.6 07/13/21 18:44 WBC RBC Hgb 13.2 Hct 38.6 MCV MCH MCHC RDW Plt Count MPV Neut % (Auto) Lymph % (Auto) [place] % (Auto) Eos % (Auto) Baso % (Auto) Neut # (Auto) Lymph # (Auto) [place] # (Auto) Eos # (Auto) Baso # (Auto) Nucleated RBC % (a uto) Nucleated RBCs # Sodium Potassium Chloride Carbon Dioxide Anion Gap BUN Creatinine GFR Calculation Glucose POC Glucose Calculated Osmolal ity Calcium Magnesium Total Bilirubin AST ALT Alkaline Phosphata se Total Protein Albumin Globulin Vitals: Last Vital Signs Temp 98.3 F 07/14/21 15:17 Pulse 18 L 07/14/21 15:17 Resp 86 H 07/14/21 15:17 BP 167/112 07/14/21 15:17 Pulse Ox 91 07/14/21 15:17 Discharge Plan Discharge Patient Disposition: Home Condition: Stable Prescriptions: New pantoprazole 40 mg tablet,delayed release (DR/EC) 40 mg PO BID 42 Days Qty: 84 RF: 0 sucralfate 1 gram Tablet 1 g PO AC&BEDTIME 30 Days Qty: 120 RF: 0 ondansetron 4 mg tablet,disintegrating 4 mg PO Q8H PRN (Reason: nausea and vomiting) 4 Days Qty: 15 RF: 0 ciprofloxacin HCl 500 mg tablet 500 mg PO BID Qty: 8 RF: 0 Flagyl 500 mg tablet 500 mg PO Q8H 5 Days Qty: 15 RF: 0 potassium chloride 20 mEq tablet extended release 20 meq PO 5XD Qty: 5 RF: 0 Continued (DME) thumb spica splint Qty: 1 RF: 0 multivitamin [Daily Multi-Vitamin] Tablet 1 tab PO DAILY RF: 0 triamcinolone acetonide 0.1 % ointment 1 applic TOPICAL BID Qty: 80 RF: 1 ketoconazole 2 % shampoo 1 applic topical .2 x weekly Qty: 120 RF: 3 tacrolimus 0.1 % ointment 1 applic topical BID Qty: 30 RF: 1 Cymbalta 60 mg capsule,delayed release(DR/EC) 60 mg PO BID Qty: 60 RF: 0 promethazine [Promethegan] 25 mg suppository 25 mg VT Q4H PRN (Reason: Nausea And Vomiting) RF: 0 Skyrizi 150 mg/mL pen injector 150 mg SUBCUT .EVERY 12 WEEKS RF: 0 baclofen 20 mg Tablet 20 mg PO TID PRN (Reason: Muscle Spasm) RF: 0 hydrochlorothiazide 25 mg tablet 25 mg PO DAILY RF: 0 pregabalin 100 mg capsule 100 mg PO BID RF: 0 albuterol sulfate [Ventolin HFA] 90 mcg/actuation Hfa Aerosol Inhaler 1 - 2 puff INHALATION QID PRN (Reason: Shortness Of Breath) RF: 0 lorazepam [Ativan] 2 mg tablet 2 mg PO TID PRN (Reason: nausea and vomiting) Qty: 10 RF: 0 Discontinued naproxen 500 mg tablet 500 mg PO BID RF: 0 Discharge Orders: Discharge Order (Routine); Ordered 07/14/21 Ordered By: Carlos Corbett Referrals: Tom Dan NP [Primary Care Provider] - 07/18/21 11:15 am (Please follow up with your primary care provider on July 18 at 11:15 a.m. ) Discharge Diet: Advance as tolerated and Clear Liquid Patient Instructions: Ciprofloxacin (By mouth) (Cipro), Sucralfate (By mouth) (Carafate), Potassium Chloride (By mouth), Metronidazole (By mouth) (Flagyl, Flagyl 375, Flagyl ER), Ondansetron (By mouth) (Zofran, Zofran ODT, Zuplenz), Pantoprazole (By mouth) (Protonix), Gastritis (GEN), Acute Kidney Injury (GEN), Hypokalemia (GEN), Esophagitis (GEN), Duodenitis (GEN), GI Discharge Instructions Activity Restrictions/Additional Instructions: Please avoid any NSAIDs, do not take any further BC powder, please do not take naproxen. Tylenol as needed for headache is okay. Please avoid food or drink 2 hours before going to sleep. Avoid any alcohol, spicy food, coffee, mint, chocolate. Please follow-up with your primary doctor regarding biopsy results to assess for H. pylori infection. Please have your primary doctor recheck your blood count at the next appointment within 4-7 days. Discussed with your doctor regarding diffuse inflammation with duque-esophagitis, gastritis and duodenitis. Please have your primary doctor at the same time also recheck your kidney function due to acute kidney injury seen on presentation which so far has been improving. At the same time have him check your potassium and sodium level as well due to noted low potassium and sodium in the hospital. In case you notice any bleeding in the GI tract or elsewhere, dark black stools, feeling lightheaded, faint, or having any other concerning symptoms, seek medical attention immediately. Discharge Attestations Time Spent in Discharge Care*: greater than 30 min Quality Metrics Clinical Quality Measures During this hospital stay, did patient experience: None Coding Level of Care Code Acute [facility] note Diagnoses GI bleeding K92.2
--- NOTE | 2021-07-14 17:27 | PC.NURSE ---
patient verbalized understanding of discharge instructions, home medications, and follow up appointments. patient was taken via wheelchair to main entrance and left in a private vehicle.
== END 2021-07-14 16:45 | disposition home or self-care (01) | DRG 378 ==
LOC: ER 21:23 → MEDSURG 22:36
PROVIDERS: Physician Assistant; Surgery; Admitting Provider Internal Medicine; Emergency Provider Emergency Medicine; PCP Nurse Practitioner Family; Visit Provider Internal Medicine
PROC: 0DJ08ZZ Inspection of Upper Intestinal Tract, Via Natural or Artificial Opening Endoscopic (ICD-10-PCS; CPT 43235; principal; 2021-07-14 10:45)
DX: K92.2 Gastrointestinal hemorrhage, unspecified (principal); N17.9 Acute kidney failure, unspecified; E87.1 Hypo-osmolality and hyponatremia; F12.20 Cannabis dependence, uncomplicated; F15.90 Other stimulant use, unspecified, uncomplicated; F33.41 Major depressive disorder, recurrent, in partial remission; L40.0 Psoriasis vulgaris; F43.12 Post-traumatic stress disorder, chronic; L40.50 Arthropathic psoriasis, unspecified; F17.210 Nicotine dependence, cigarettes, uncomplicated; E86.0 Dehydration; F41.9 Anxiety disorder, unspecified; I10 Essential (primary) hypertension; K20.90 Esophagitis, unspecified without bleeding; K29.80 Duodenitis without bleeding; K29.70 Gastritis, unspecified, without bleeding
CPT/HCPCS: 36415; 36416; 43239; 74177; 80048; 80053; 80306; 81001; 82570; 82962; 83036; 83690; 83735; 84100; 84300; 85014; 85018; 85025; 85999; 88305; 96361; 96372; 96374; 96375; 99285; C9113; J0744; J2270; J2405; J2550; J2704; J3475; J3480; J3490; J7030; Q9967; S0030

== ENCOUNTER 2021-07-17 09:29 | Emergency (ER) | payer MEDICARE, MEDICAID, SELFPAY ==
[2021-07-17 09:52] VITALS: BP 174/116; PULSE 100; RESP 18; TEMP 36.8; O2SAT 98; BMI 25.8
--- NOTE | 2021-07-17 10:06 | XR_ITS ---
WS: [id number] Exam: XR chest 1V portable [id number] Date/Time of Exam: 07/17/2021 10:09 AM Reason For Exam: SOB Comparison 08/24/2020. Findings: The lungs are clear and fully expanded. Costophrenic angles are sharp. No infiltrates. Bronchovascula r relief appears normal. Cardiac silhouette is unremarkable. Bony elements are intact. XR/XR chest 1V portable [id number] IMPRESSION: Unremarkable chest radiograph.
--- NOTE | 2021-07-17 10:07 | W.ED.GENADLT ---
Documented by User: ANIKA Shaw 07/17/21 12:47 HPI - General Adult General: Chief complaint: Weakness Stated complaint: SHAKES/HIGH BP/DARK STOOL/BACK PAIN Time Seen by Provider: 07/17/21 09:33 Source: patient Mode of arrival: ambulatory Limitations: no limitations History of Present Illness: HPI narrative: Patient is a 51-year-old female presents to ED today with multiple complaints. She tells me she feels shaky. She states her blood pressure has been running high. She is complaining of a dark and tarry stool this morning. She states she has lower back pain. She complains of abdominal cramping. She is also stating she feels winded with minimal activity. Patient was recently admitted to the hospital for complaints of abdominal pain, nausea, vomiting, and concerns for GI bleed (there is documentation of coffee-ground emesis-she has not had any further episodes of this). EGD performed by Dr. Tejeda which showed duque esophagitis, moderate gastritis and diffuse inflammation of her duodenum but no active bleed. During that hospitalization she was noted to have acute kidney injury, hyponatremia, hypokalemia. Patient had PPI and sucrafate added to her med list. She also had some evidence of jejunitis in which she is receiving Cipro/Flagyl for. Onset (ago): day(s) Associated symptoms: Reports dyspnea; Deny chest pain, headache(s), malaise, nausea, rash, palpitations, syncope or vomiting Review of Systems Const: Denies: fever(s), chills, body aches, fatigue or malaise Eyes: Denies: change in vision or blurry vision Card: Denies: chest pain, palpitations, irregular heart rhythm, edema, lightheadedness, syncope or pre-syncope Resp: Reports: dyspnea; Denies: productive cough, non-productive cough, wheezing, hemoptysis or chest congestion GI: Reports: abdominal pain and melena; Denies: nausea, vomiting or hematemesis : Reports: flank pain and dysuria; Denies: hematuria Musc: Reports: back pain; Denies: neck pain, extremity pain, extremity swelling, joint pain or joint swelling Skin/Breast: Denies: rash Neuro: Denies: headache(s), numbness in extremities, weakness in extremities, sensory changes, difficulty walking or dizziness PFS ED PFSH: Medical History Cannabis dependence, uncomplicated High risk medication use Major depressive disorder, recurrent, in partial remission Plaque psoriasis Post-traumatic stress disorder, chronic Psoriatic arthritis Social History Smoking and tobacco status: current every day smoker cigarettes Packs smoked per day: 1 Smoking risk assessment/counseling performed?: Yes Tobacco counseling given: counseling >3 minutes Physical Exam Const: COMMON NORMALS: no acute distress, patient oriented x3, no limitations and alert GENERAL APPEARANCE: cooperative ORIENTATION/CONSCIOUSNESS: Yes awake, Yes oriented to person, Yes oriented to place and Yes oriented to time HENMT: COMMON NORMALS: normocephalic and atraumatic HEAD & SCALP: normocephalic and atraumatic Chest: COMMONS NORMALS: normal inspection of the chest and normal palpation of entire chest wall Resp: COMMON NORMALS: normal respiratory effort and clear to auscultation bilaterally AUSCULTATION: clear to auscultation bilaterally Cardio: COMMON NORMALS: regular rate and regular rhythm RATE: regular rate RHYTHM: regular rhythm GI: COMMON NORMALS: Normal to inspection, nondistended, normoactive bowel sounds present, Soft to palpation, No hepatosplenomegaly present and no masses PALPATION: Yes Soft to palpation, Yes Tenderness to palpation present (GI) (throughout lower abdomen and epigastric) and Yes No hepatosplenomegaly present RECTAL EXAM: heme positive stool Back/Pelvis: OTHER: throughout lower back Extremity: COMMON NORMALS: normal to inspection, no calf tenderness and no pedal edema Neuro: COMMON NORMALS: patient oriented x3 SENSORIUM/ORIENTATION: Yes alert, Yes oriented to person, Yes oriented to place and Yes oriented to time Skin: COMMON NORMALS: no rashes or lesions noted GENERAL SKIN EXAM: no rashes or lesions noted Course Vital Signs: Vital signs: Vital Signs Temperature 98.2 F 07/17/21 09:52 Pulse Rate 92 07/17/21 12:29 Respiratory Rate 20 H 07/17/21 12:29 Blood Pressure 180/119 07/17/21 12:29 Pulse Oximetry 96 07/17/21 12:29 MDM - General Adult MDM Narrative: Medical decision making narrative: Patient here for multiple medical complaints. She was recently admitted to the hospital secondary to acute kidney injury, hypokalemia, hyponatremia, and a GI bleed. She underwent EGD by Dr. Tejeda which showed duuqe esophagitis, gastritis, and moderate inflammation through her duodenum. She was placed on Pantoprazole and Carafate which she has been taking. She has had one dark stool since discharge. Patient is hemodynamically stable. Her hemoglobin now is higher than it was at discharge. Electrolytes are normal. Patient's creatinine is 1.0 today which is the same as her discharge. She had a mild elevation to her lipase at 86 which is nonspecific. Patient states she had some mild abdominal pain upon her last hospitalization. This is not worsened at all. CT scan on the last visit showed some possible jejunitis-she was placed on Cipro and Flagyl for this. I do not think a repeat CT scan is needed at this time as symptoms have not really changed at all. Looking at previous blood pressures patient chronically has hypertension. She takes HCTZ daily for this. She has an appointment with PCP tomorrow. Recommend she speak to them regarding this to see if any medication changes are necessary. Her CXR is normal. At this time I do not see any indication for repeat hospitalization. Recommend she continue all medications as directed and follow-up with primary care tomorrow at her appointment. Strict return to ED precautions given. Lab Data: Labs: Lab Results 07/17/21 07/17/21 07/17/21 10:37 11:04 11:04 WBC 10.6 10^3/uL H 10 ^3/uL (4.0-10.0) RBC 4.87 10^6/uL 10^6 /uL (4.1-5.3) Hgb 15.7 g/dL H g/dL (11.5-15.3) Hct 45.4 % % (37.0-47.0) MCV 93.2 fl fl (81-99) MCH 32.2 pg pg (28.0-34.0) MCHC 34.6 g/dL g/dL (30.0-36.0) RDW 13.8 % % (12.1-15.1) Plt Count 391 10^3/cmm 10^3 /cmm (130-400) MPV 9.7 fL fL (7.4-10.4) Neut % (Auto) 60.4 % % Lymph % (Auto) 25.6 % % Fergus % (Auto) 7.7 % % Eos % (Auto) 5.1 % % Baso % (Auto) 0.5 % % Neut # (Auto) 6.38 10^3/uL 10^3 /uL (1.8-7.7) Lymph # (Auto) 2.7 10^3/uL 10^3/ uL (0.8-4.8) Fergus # (Auto) 0.8 10^3/uL 10^3/ uL (0.2-0.9) Eos # (Auto) 0.5 10^3/uL 10^3/ uL (0.0-0.8) Baso # (Auto) 0.1 10^3/uL 10^3/ uL (0.0-0.1) Nucleated RBC % (a uto) 0 % % Nucleated RBCs # 0.0 /100WBC /100W BC Sodium 137 mmol/L mmol/L (136-145) Potassium 4.4 mmol/L mmol/L (3.5-5.1) Chloride 98 mmol/L mmol/L (98-107) Carbon Dioxide 27 mmol/L mmol/L (22-29) Anion Gap 16.4 (5-19) BUN 35 mg/dL H mg/dL (6-20) Creatinine 1.0 mg/dL H mg/dL (0.5-0.9) GFR Calculation 58.0 mL/min L mL/ min (90-130) Glucose 90 mg/dL mg/dL (65-115) Calculated Osmolal ity 292 mOsm/kg mOsm/ kg (285-295) Calcium 9.8 mg/dL mg/dL (8.5-10.5) Total Bilirubin 0.2 mg/dL mg/dL (0.15-1.2) AST 22 U/L U/L (0-32) ALT 21 U/L U/L (0-33) Alkaline Phosphata se 103 IU/L IU/L (35-105) Total Protein 7.9 g/dL g/dL (6.6-8.7) Albumin 4.5 g/dL g/dL (3.5-5.2) Globulin 3.4 g/dL g/dL (1.3-4.6) Lipase 86 U/L H U/L (13-60) Urine Color Yellow (Yellow) Urine Appearance Clear (CLEAR) Urine pH 7 (5-7) Ur Specific Gravit y 1.000 L (1.005-1.030) Urine Protein Neg (Negative) Urine Glucose (UA) Norm (Normal) Urine Ketones Negative (Negative) Urine Blood Neg (Negative) Urine Nitrate Negative (Negative) Urine Bilirubin Neg (Negative) Urine Urobilinogen Norm mg/dL mg/dL (Negative) Ur Leukocyte Destiny ase Negative (Negative) Imaging Data^: CXR: Radiologist's impression: [address] [address] XRay Report Signed Patient: Rachelle Mireles Unit #: [id number] : 1970 Age/Sex: 51 / F ADM Date: 07/17/21 Loc: ER Room/Bed: Attending Dr: Ordering Provider/Ordering MD: Vielka Roblero Date of Service: 07/17/21 Procedure(s): XR chest 1V portable [id number] Accession Number(s): [id number] Report Number: [id number] WS: [id number] Exam: XR chest 1V portable [id number] Date/Time of Exam: 07/17/2021 10:09 AM Reason For Exam: SOB Comparison 08/24/2020. Findings: The lungs are clear and fully expanded. Costophrenic angles are sharp. No infiltrates. Bronchovascular relief appears normal. Cardiac silhouette is unremarkable. Bony elements are intact. XR/XR chest 1V portable [id number] IMPRESSION: Unremarkable chest radiograph. Dictated By: Apollo Amezquita DO Signed By: Apollo Amezquita DO Signed Date/Time: 07/17/21 1016 DD/ 1016 Discharge Plan Discharge Patient Disposition: Home Clinical Impression: Chronic hypertension GI bleed Qualifiers: GI bleed type/associated pathology: unspecified gastrointestinal hemorrhage type Qualified Code(s): K92.2 - Gastrointestinal hemorrhage, unspecified Condition: Stable Prescriptions: No Action (DME) thumb spica splint Qty: 1 RF: 0 multivitamin [Daily Multi-Vitamin] Tablet 1 tab PO DAILY RF: 0 triamcinolone acetonide 0.1 % ointment 1 applic TOPICAL BID Qty: 80 RF: 1 ketoconazole 2 % shampoo 1 applic topical .2 x weekly Qty: 120 RF: 3 tacrolimus 0.1 % ointment 1 applic topical BID Qty: 30 RF: 1 Cymbalta 60 mg capsule,delayed release(DR/EC) 60 mg PO BID Qty: 60 RF: 0 promethazine [Promethegan] 25 mg suppository 25 mg [place] Q4H PRN (Reason: Nausea And Vomiting) RF: 0 Skyrizi 150 mg/mL pen injector 150 mg SUBCUT .EVERY 12 WEEKS RF: 0 baclofen 20 mg Tablet 20 mg PO TID PRN (Reason: Muscle Spasm) RF: 0 hydrochlorothiazide 25 mg tablet 25 mg PO DAILY RF: 0 pregabalin 100 mg capsule 100 mg PO BID RF: 0 albuterol sulfate [Ventolin HFA] 90 mcg/actuation Hfa Aerosol Inhaler 1 - 2 puff INHALATION QID PRN (Reason: Shortness Of Breath) RF: 0 pantoprazole 40 mg tablet,delayed release (DR/EC) 40 mg PO BID 42 Days Qty: 84 RF: 0 sucralfate 1 gram Tablet 1 g PO AC&BEDTIME 30 Days Qty: 120 RF: 0 ondansetron 4 mg tablet,disintegrating 4 mg PO Q8H PRN (Reason: nausea and vomiting) 4 Days Qty: 15 RF: 0 ciprofloxacin HCl 500 mg tablet 500 mg PO BID Qty: 8 RF: 0 Flagyl 500 mg tablet 500 mg PO Q8H 5 Days Qty: 15 RF: 0 potassium chloride 20 mEq tablet extended release 20 meq PO 5XD Qty: 5 RF: 0 lorazepam [Ativan] 2 mg tablet 2 mg PO TID PRN (Reason: nausea and vomiting) Qty: 10 RF: 0 Discharge Orders: Discharge ED (Routine); Ordered 07/17/21 Ordered By: Vielka Roblero Referrals: Tom Dan NP [Primary Care Provider] - Activity Restrictions/Additional Instructions: As we discussed please follow-up with your primary care provider tomorrow as scheduled. Continue a bland liquid diet and slowly advance as tolerated. You may speak to your primary care provider regarding your chronic elevations to blood pressures to see if they need to make any adjustments to your medications. As we discussed your electrolytes were normal today. Kidney functions are stable since your discharge from the hospital. UA shows no infection. You may return to the emergency department for worsening or severe abdominal or back pain, fevers, passing out episodes, worsening black/tarry stools, or any other concerns you may have. Coding Level of Care Code ED Exercise Physiologist for [place] Fwd Exam Comprehensive Documented by User: Lc Carreno DO 07/17/21 13:56 HPI - General Adult General: Chief complaint: Weakness Stated complaint: SHAKES/HIGH BP/DARK STOOL/BACK PAIN Time Seen by Provider: 07/17/21 09:33 PFSH ED PFSH: Medical History Cannabis dependence, uncomplicated High risk medication use Major depressive disorder, recurrent, in partial remission Plaque psoriasis Post-traumatic stress disorder, chronic Psoriatic arthritis Social History Smoking and tobacco status: current every day smoker cigarettes Packs smoked per day: 1 Smoking risk assessment/counseling performed?: Yes Tobacco counseling given: counseling >3 minutes Course Vital Signs: Vital signs: Vital Signs Temperature 98.2 F 07/17/21 09:52 Pulse Rate 92 07/17/21 12:29 Respiratory Rate 20 H 07/17/21 12:29 Blood Pressure 180/119 07/17/21 12:29 Pulse Oximetry 96 07/17/21 12:29 MDM - General Adult MDM Narrative: Medical decision making narrative: Chart reviewed and patient discussed with midlevel. Agree with assessment and plan. Lab Data: Labs: Lab Results 07/17/21 07/17/21 07/17/21 10:37 11:04 11:04 WBC 10.6 10^3/uL H 10 ^3/uL (4.0-10.0) RBC 4.87 10^6/uL 10^6 /uL (4.1-5.3) Hgb 15.7 g/dL H g/dL (11.5-15.3) Hct 45.4 % % (37.0-47.0) MCV 93.2 fl fl (81-99) MCH 32.2 pg pg (28.0-34.0) MCHC 34.6 g/dL g/dL (30.0-36.0) RDW 13.8 % % (12.1-15.1) Plt Count 391 10^3/cmm 10^3 /cmm (130-400) MPV 9.7 fL fL (7.4-10.4) Neut % (Auto) 60.4 % % Lymph % (Auto) 25.6 % % Fergus % (Auto) 7.7 % % Eos % (Auto) 5.1 % % Baso % (Auto) 0.5 % % Neut # (Auto) 6.38 10^3/uL 10^3 /uL (1.8-7.7) Lymph # (Auto) 2.7 10^3/uL 10^3/ uL (0.8-4.8) Fergus # (Auto) 0.8 10^3/uL 10^3/ uL (0.2-0.9) Eos # (Auto) 0.5 10^3/uL 10^3/ uL (0.0-0.8) Baso # (Auto) 0.1 10^3/uL 10^3/ uL (0.0-0.1) Nucleated RBC % (a uto) 0 % % Nucleated RBCs # 0.0 /100WBC /100W BC Sodium 137 mmol/L mmol/L (136-145) Potassium 4.4 mmol/L mmol/L (3.5-5.1) Chloride 98 mmol/L mmol/L (98-107) Carbon Dioxide 27 mmol/L mmol/L (22-29) Anion Gap 16.4 (5-19) BUN 35 mg/dL H mg/dL (6-20) Creatinine 1.0 mg/dL H mg/dL (0.5-0.9) GFR Calculation 58.0 mL/min L mL/ min (90-130) Glucose 90 mg/dL mg/dL (65-115) Calculated Osmolal ity 292 mOsm/kg mOsm/ kg (285-295) Calcium 9.8 mg/dL mg/dL (8.5-10.5) Total Bilirubin 0.2 mg/dL mg/dL (0.15-1.2) AST 22 U/L U/L (0-32) ALT 21 U/L U/L (0-33) Alkaline Phosphata se 103 IU/L IU/L (35-105) Total Protein 7.9 g/dL g/dL (6.6-8.7) Albumin 4.5 g/dL g/dL (3.5-5.2) Globulin 3.4 g/dL g/dL (1.3-4.6) Lipase 86 U/L H U/L (13-60) Urine Color Yellow (Yellow) Urine Appearance Clear (CLEAR) Urine pH 7 (5-7) Ur Specific Gravit y 1.000 L (1.005-1.030) Urine Protein Neg (Negative) Urine Glucose (UA) Norm (Normal) Urine Ketones Negative (Negative) Urine Blood Neg (Negative) Urine Nitrate Negative (Negative) Urine Bilirubin Neg (Negative) Urine Urobilinogen Norm mg/dL mg/dL (Negative) Ur Leukocyte Destiny ase Negative (Negative) Discharge Plan Discharge Patient Disposition: Home Clinical Impression: Chronic hypertension GI bleed Qualifiers: GI bleed type/associated pathology: unspecified gastrointestinal hemorrhage type Qualified Code(s): K92.2 - Gastrointestinal hemorrhage, unspecified Condition: Stable Prescriptions: No Action (DME) thumb spica splint Qty: 1 RF: 0 multivitamin [Daily Multi-Vitamin] Tablet 1 tab PO DAILY RF: 0 triamcinolone acetonide 0.1 % ointment 1 applic TOPICAL BID Qty: 80 RF: 1 ketoconazole 2 % shampoo 1 applic topical .2 x weekly Qty: 120 RF: 3 tacrolimus 0.1 % ointment 1 applic topical BID Qty: 30 RF: 1 Cymbalta 60 mg capsule,delayed release(DR/EC) 60 mg PO BID Qty: 60 RF: 0 promethazine [Promethegan] 25 mg suppository 25 mg [place] Q4H PRN (Reason: Nausea And Vomiting) RF: 0 Skyrizi 150 mg/mL pen injector 150 mg SUBCUT .EVERY 12 WEEKS RF: 0 baclofen 20 mg Tablet 20 mg PO TID PRN (Reason: Muscle Spasm) RF: 0 hydrochlorothiazide 25 mg tablet 25 mg PO DAILY RF: 0 pregabalin 100 mg capsule 100 mg PO BID RF: 0 albuterol sulfate [Ventolin HFA] 90 mcg/actuation Hfa Aerosol Inhaler 1 - 2 puff INHALATION QID PRN (Reason: Shortness Of Breath) RF: 0 pantoprazole 40 mg tablet,delayed release (DR/EC) 40 mg PO BID 42 Days Qty: 84 RF: 0 sucralfate 1 gram Tablet 1 g PO AC&BEDTIME 30 Days Qty: 120 RF: 0 ondansetron 4 mg tablet,disintegrating 4 mg PO Q8H PRN (Reason: nausea and vomiting) 4 Days Qty: 15 RF: 0 ciprofloxacin HCl 500 mg tablet 500 mg PO BID Qty: 8 RF: 0 Flagyl 500 mg tablet 500 mg PO Q8H 5 Days Qty: 15 RF: 0 potassium chloride 20 mEq tablet extended release 20 meq PO 5XD Qty: 5 RF: 0 lorazepam [Ativan] 2 mg tablet 2 mg PO TID PRN (Reason: nausea and vomiting) Qty: 10 RF: 0 Discharge Orders: Discharge ED (Routine); Ordered 07/17/21 Ordered By: Vielka Roblero Referrals: Tom Dan NP [Primary Care Provider] - Activity Restrictions/Additional Instructions: As we discussed please follow-up with your primary care provider tomorrow as scheduled. Continue a bland liquid diet and slowly advance as tolerated. You may speak to your primary care provider regarding your chronic elevations to blood pressures to see if they need to make any adjustments to your medications. As we discussed your electrolytes were normal today. Kidney functions are stable since your discharge from the hospital. UA shows no infection. You may return to the emergency department for worsening or severe abdominal or back pain, fevers, passing out episodes, worsening black/tarry stools, or any other concerns you may have. Coding Level of Care Code ED Exercise Physiologist for [place] Fwd Exam Comprehensive
[2021-07-17 11:10] VITALS: BP 175/133; PULSE 91; RESP 14; O2SAT 94
[2021-07-17 11:12] LABS: Basophils # 0.1 10^3/uL (0.0-0.1); Basophils % 0.5 %; Eosinophils # 0.5 10^3/uL (0.0-0.8); Eosinophils % 5.1 %; Hematocrit 45.4 % (37.0-47.0); Hemoglobin 15.7 g/dL (11.5-15.3); Lymphocytes # 2.7 10^3/uL (0.8-4.8); Lymphocytes % 25.6 %; Mean Corpuscular HGB Conc 34.6 g/dL (30.0-36.0); Mean Corpuscular Hemoglobin 32.2 pg (28.0-34.0); Mean Corpuscular Volume 93.2 fl (81-99); Mean Platelet Volume 9.7 fL (7.4-10.4); Monocytes # 0.8 10^3/uL (0.2-0.9); Monocytes % 7.7 %; Neutrophils # 6.38 10^3/uL (1.8-7.7); Neutrophils % 60.4 %; Nucleated Red Blood Cells % 0 %; Platelet Count 391 10^3/cmm (130-400); Red Blood Count 4.87 10^6/uL (4.1-5.3); Red Cell Distribution Width 13.8 % (12.1-15.1); White Blood Count 10.6 10^3/uL (4.0-10.0)
[2021-07-17 11:21] LABS: Add Urine Microscopic? NO; Charge for UA Resulting for Rev
[2021-07-17 11:29] LABS: Bilirubin Urine Neg (Negative); Blood Urine Neg (Negative); Glucose Urine UA Norm (Normal); Ketones Urine Negative (Negative); Leukocyte Esterase Urine Negative (Negative); Nitrate Urine Negative (Negative); Protein Urine Neg (Negative); Urine Appearance Clear (CLEAR); Urine Color Yellow (Yellow); Urobilinogen Urine Norm (Negative); pH Urine 7 (5-7)
[2021-07-17 11:30] VITALS: BP 154/104; PULSE 90; RESP 14; O2SAT 94
[2021-07-17 11:35] LABS: Alanine Aminotransferase 21 U/L (0-33); Albumin Level 4.5 g/dL (3.5-5.2); Alkaline Phosphatase 103 IU/L (35-105); Anion Gap 16.4 (5-19); Aspartate Amino Transferase 22 U/L (0-32); Blood Urea Nitrogen 35 mg/dL (6-20); Calcium 9.8 mg/dL (8.5-10.5); Carbon Dioxide 27 mmol/L (22-29); Chloride 98 mmol/L (98-107); Globulin 3.4 g/dL (1.3-4.6); Glucose 90 mg/dL (65-115); Lipase 86 U/L (13-60); Osmolality Calculated 292 mOsm/kg (285-295); Potassium 4.4 mmol/L (3.5-5.1); Sodium 137 mmol/L (136-145); Total Bilirubin 0.2 mg/dL (0.15-1.2); Total Protein 7.9 g/dL (6.6-8.7)
--- NOTE | 2021-07-17 12:02 | PC.NURSE ---
1142 verbal order to hold Lopressor until further notice by ANIKA Shaw
--- NOTE | 2021-07-17 12:25 | PC.NURSE ---
Lopressor order cancelled before discharge per ANIKA Pimentel
[2021-07-17 12:29] VITALS: BP 180/119; PULSE 92; RESP 20; O2SAT 96
== END 2021-07-17 12:29 | disposition home or self-care (01) ==
PROVIDERS: Emergency Provider Physician Assistant; PCP Nurse Practitioner Family
DX: K92.2 Gastrointestinal hemorrhage, unspecified (principal); I10 Essential (primary) hypertension; F17.210 Nicotine dependence, cigarettes, uncomplicated
CPT/HCPCS: 71045; 80053; 81003; 83690; 85025; 99283

== ENCOUNTER 2021-08-04 12:26 | Outpatient (CLI) | payer MEDICARE, MEDICAID, SELFPAY ==
--- NOTE | 2021-08-04 12:35 | XR_ITS ---
WS: [id number] Right shoulder, 3 views, 08/04/2021 Clinical Data: R SHOULDER PAIN Comparison: None. Findings: There is elevation of the right clavicle with separation of the AC joint of 2.4 cm. No fractures are seen. The shoulder joints intact. The adjacent right scapula and ribs are unremarkab le. There is a small cortical defect of the medial proximal right humerus which could be from an inju ry or surgery XR/XR shoulder RT min 2V* [id number] Impression: Separation and elevation of the right clavicle from the AC joint.
== END 2021-08-04 12:27 | disposition home or self-care (01) ==
LOC: RAD 12:28
PROVIDERS: PCP Nurse Practitioner Family; Visit Provider Nurse Practitioner Family
DX: S43.101A Unspecified dislocation of right acromioclavicular joint, initial encounter (principal); X58.XXXA Exposure to other specified factors, initial encounter
CPT/HCPCS: 73030

== ENCOUNTER 2021-08-06 13:24 | Emergency (ER) | payer MEDICARE, MEDICAID, SELFPAY ==
[2021-08-06 13:27] VITALS: BP 213/140; PULSE 97; RESP 24; TEMP 36.6; O2SAT 100; BMI 25.8
--- NOTE | 2021-08-06 13:50 | W.ED.GENADLT ---
HPI - General Adult General: Chief complaint: Abdominal Pain Stated complaint: N/V; ABD PAIN Time Seen by Provider: 08/06/21 13:32 History of Present Illness: HPI narrative: Patient is a 51-year-old female history of daily marijuana use presenting to emergency room with nausea vomiting and generalized abdominal pain x2 days. Patient tells me that 3 days ago patient has been having diarrhea. However yesterday patient has had nausea vomiting and decreased p.o. intake. Patient states that she used daily marijuana however denies increased use. Patient denies any other coingestions. Patient denies fever/chills, melena hematochezia. Onset:2 days ago Duration:2 days Location:home Severity:moderate Review of Systems Narrative: Constitutional: No fever, no chills. HEENT: No vision changes CV: No chest pain, no palpitations PULM: no cough, no dyspnea. GI: +generalized abdominal pain, +N/+V/+D. : No dysuria MSKEL: No muscle pain SKIN: No new rashes, no lesions. NEURO: No headache, no focal weakness. HEME: No visible bruises PSYCH: Normal mood PFSH ED PFSH: Medical History Anxiety Cannabis dependence, uncomplicated High risk medication use Hypertension Major depressive disorder, recurrent, in partial remission Plaque psoriasis Post-traumatic stress disorder, chronic Psoriatic arthritis Social History Smoking and tobacco status: current some day smoker (on patches sometimes 1 to 3 a day) cigarettes Packs smoked per day: 1 Smoking risk assessment/counseling performed?: Yes Tobacco counseling given: counseling >3 minutes Physical Exam Narrative: EXAM NARRATIVE: Head: Atraumatic Eyes: PERRL, conjunctiva without injection ENT: Mucous membrane Dry NECK: Supple, ROM intact LUNGS: LCTAB, no crackles/rhonchi CV: RRR ABDOMEN: Soft, no focal TTP. NO guarding rebound, guarding, rigidity. No CVA tenderness to percussion. Neg Alvarez/Neg McBurney's point tenderness, no suprabupic tenderness to palpation. EXTREMITY: Normal ROM SKIN: No rash or erythema NEURO: Awake and alert, no focal motor deficits PSYCH: Normal mood and affect Course Vital Signs: Vital signs: Vital Signs Temperature 97.9 F 08/06/21 13:27 Pulse Rate 99 08/06/21 15:06 Respiratory Rate 22 H 08/06/21 15:06 Blood Pressure 199/124 08/06/21 15:06 Pulse Oximetry 99 08/06/21 15:06 MDM - General Adult MDM Narrative: Medical decision making narrative: Patient is a 51-year-old female with a history of daily marijuana use presenting to emergency room with nausea vomiting abdominal pain since Saturday. Also has mild loose stool since . She is afebrile, appears to be dry on exam. Otherwise, patient is mild distress with vomiting. Work-up, CBC, CT CMP, lipase, UA Intervention: IVF, haloperidol, zofran, GI cocktail PO challenge On reassessment, patient is significantly improved in symptoms after IVF and Haldol. Patient was noted to have trigeminy on EKG. is noted to have percent looks leukocytosis prior. The present time, given the fact the patient proved with GI cocktail, do not suspect there is any acute intra-abdominal pathology. Patient is noted to have hypomagnesemia to 1.6. UA positive for ketones suggestive of vomiting and decreased p.o. intake. S/p magnesium oxide in the ED. No suspicion for other acute intra-abdominal pathology including SBO, biliary pathology, appendicitis, diverticulitis, or other emergent condition requiring surgery. Rx maalox/pepcid PRN dyspepsia, and zofran PRN nausea/vomiting Disposition: Discharge. Patient counseled regarding diagnostic impression, treatment plan. Patient given ED strict return precautions to return for continuation, worsening, or development of new symptoms. Instructed to f/u w/ PCP regarding symptoms today. Patient verbalized understanding. Lab Data: Labs: Lab Results 08/06/21 08/06/21 08/06/21 14:10 14:10 15:00 WBC 15.5 10^3/uL H 10 ^3/uL (4.0-10.0) RBC 4.86 10^6/uL 10^6 /uL (4.1-5.3) Hgb 15.3 g/dL g/dL (11.5-15.3) Hct 45.7 % % (37.0-47.0) MCV 94.0 fl fl (81-99) MCH 31.5 pg pg (28.0-34.0) MCHC 33.5 g/dL g/dL (30.0-36.0) RDW 14.2 % % (12.1-15.1) Plt Count 356 10^3/cmm 10^3 /cmm (130-400) MPV 11.6 fL H fL (7.4-10.4) Neut % (Auto) 88.4 % % Lymph % (Auto) 7.9 % % [place] % (Auto) 2.8 % % Eos % (Auto) 0.1 % % Baso % (Auto) 0.2 % % Neut # (Auto) 13.65 10^3/uL H 1 0^3/uL (1.8-7.7) Lymph # (Auto) 1.2 10^3/uL 10^3/ uL (0.8-4.8) [place] # (Auto) 0.4 10^3/uL 10^3/ uL (0.2-0.9) Eos # (Auto) 0.0 10^3/uL 10^3/ uL (0.0-0.8) Baso # (Auto) 0.0 10^3/uL 10^3/ uL (0.0-0.1) Nucleated RBC % (a uto) 0 % % Nucleated RBCs # 0.0 /100WBC /100W BC Sodium 133 mmol/L L mmol /L (136-145) Potassium 3.9 mmol/L mmol/L (3.5-5.1) Chloride 93 mmol/L L mmol/ L (98-107) Carbon Dioxide 19 mmol/L L mmol/ L (22-29) Anion Gap 24.9 H (5-19) BUN 18 mg/dL mg/dL (6-20) Creatinine 0.7 mg/dL mg/dL (0.5-0.9) GFR Calculation 87.5 mL/min L mL/ min (90-130) Glucose 125 mg/dL H mg/dL (65-115) Calculated Osmolal ity 279 mOsm/kg L mOs m/kg (285-295) Calcium 9.7 mg/dL mg/dL (8.5-10.5) Magnesium 1.6 mg/dL L mg/dL (1.7-2.3) Total Bilirubin 0.5 mg/dL mg/dL (0.15-1.2) AST 25 U/L U/L (0-32) ALT 16 U/L U/L (0-33) Alkaline Phosphata se 115 IU/L H IU/L (35-105) Total Protein 7.9 g/dL g/dL (6.6-8.7) Albumin 5.0 g/dL g/dL (3.5-5.2) Globulin 2.9 g/dL g/dL (1.3-4.6) Lipase 24 U/L U/L (13-60) Urine Color Yellow (Yellow) Urine Appearance Clear (CLEAR) Urine pH 6.5 (5-7) Ur Specific Gravit y 1.015 (1.005-1.030) Urine Protein 3+ H (Negative) Urine Glucose (UA) Norm (Normal) Urine Ketones 2+ H (Negative) Urine Blood 2+ H (Negative) Urine Nitrate Negative (Negative) Urine Bilirubin Neg (Negative) Urine Urobilinogen Norm mg/dL mg/dL (Negative) Ur Leukocyte Destiny ase Negative (Negative) Urine RBC 5-10 /hpf H /hpf (0-2) Urine WBC Rare /hpf /hpf (0-5) Ur Squamous Epith Cells 0-4 /hpf H /hpf (0-5) Amorphous Sediment Not Reportable Urine Bacteria Trace /hpf /hpf (NONE) Urine Mucus Trace /hpf /hpf Discharge Plan Discharge Patient Disposition: Home Clinical Impression: Abdominal pain, Nausea & vomiting Condition: Stable Prescriptions: New acetaminophen 500 mg tablet 500 mg PO Q6H PRN (Reason: pain) 5 Days Qty: 20 RF: 0 Pepcid 20 mg tablet 20 mg PO BID PRN (Reason: abdominal pain) 10 Days Qty: 20 RF: 0 Maalox Advanced 1,000-60 mg tablet,chewable 1 tab PO TID PRN (Reason: abdominal pain) 7 Days Qty: 21 RF: 0 Zofran 4 mg tablet 4 mg PO TID PRN (Reason: nausea and vomiting) 4 Days Qty: 12 RF: 0 No Action (DME) thumb spica splint Qty: 1 RF: 0 multivitamin [Daily Multi-Vitamin] Tablet 1 tab PO DAILY RF: 0 triamcinolone acetonide 0.1 % ointment 1 applic TOPICAL BID Qty: 80 RF: 1 ketoconazole 2 % shampoo 1 applic topical .2 x weekly Qty: 120 RF: 3 tacrolimus 0.1 % ointment 1 applic topical BID Qty: 30 RF: 1 Cymbalta 60 mg capsule,delayed release(DR/EC) 60 mg PO BID Qty: 60 RF: 0 promethazine [Promethegan] 25 mg suppository 25 mg [place] Q4H PRN (Reason: Nausea And Vomiting) RF: 0 Skyrizi 150 mg/mL pen injector 150 mg SUBCUT .EVERY 12 WEEKS RF: 0 baclofen 20 mg Tablet 20 mg PO TID PRN (Reason: Muscle Spasm) RF: 0 hydrochlorothiazide 25 mg tablet 25 mg PO DAILY RF: 0 pregabalin 100 mg capsule 100 mg PO BID RF: 0 albuterol sulfate [Ventolin HFA] 90 mcg/actuation Hfa Aerosol Inhaler 1 - 2 puff INHALATION QID PRN (Reason: Shortness Of Breath) RF: 0 pantoprazole 40 mg tablet,delayed release (DR/EC) 40 mg PO BID 42 Days Qty: 84 RF: 0 sucralfate 1 gram Tablet 1 g PO AC&BEDTIME 30 Days Qty: 120 RF: 0 potassium chloride 20 mEq tablet extended release 20 meq PO 5XD Qty: 5 RF: 0 lorazepam [Ativan] 2 mg tablet 2 mg PO TID PRN (Reason: nausea and vomiting) Qty: 10 RF: 0 Discharge Orders: Discharge ED (Routine); Ordered 08/06/21 Ordered By: Rivera Snider Referrals: Tom Dan RECORD PRODUCER [Primary Care Provider] - Discharge Diet: Advance as tolerated Discharge Activity: Resume usual activity Patient Instructions: Abdominal Pain (ED) Activity Restrictions/Additional Instructions: Please come back if you have any worsening abdominal pain, fever or chills, nausea or vomiting, diarrhea, blood in the stool, inability hold down liquid or solids, or any new concerning complaints. Coding Level of Care Code ED School Office Assistant for 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
[2021-08-06] MEDS: sodium chloride 0.9% 1,000 ML 999 ML IV (14:02)
[2021-08-06] MEDS: haloperidol inj 5 mg/mL INJ 1 mL IVP (14:04)
[2021-08-06] MEDS: famotidine 20 mg/2 mL INJ IVP (14:05)
--- NOTE | 2021-08-06 14:15 | PC.NURSE ---
Notified provider pt stated she had not taken her home medication for BP for 2 days
[2021-08-06] MEDS: hyDRALAzine 20 mg/mL INJ 1 mL IVP (14:25)
[2021-08-06 14:30] VITALS: BP 199/124; PULSE 99; RESP 26; O2SAT 99
[2021-08-06 14:30] LABS: Basophils % 0.2 %; Eosinophils % 0.1 %; Hematocrit 45.7 % (37.0-47.0); Hemoglobin 15.3 g/dL (11.5-15.3); Lymphocytes # 1.2 10^3/uL (0.8-4.8); Lymphocytes % 7.9 %; Mean Corpuscular HGB Conc 33.5 g/dL (30.0-36.0); Mean Corpuscular Hemoglobin 31.5 pg (28.0-34.0); Mean Platelet Volume 11.6 fL (7.4-10.4); Monocytes # 0.4 10^3/uL (0.2-0.9); Monocytes % 2.8 %; Neutrophils # 13.65 10^3/uL (1.8-7.7); Neutrophils % 88.4 %; Nucleated Red Blood Cells % 0 %; Platelet Count 356 10^3/cmm (130-400); Red Blood Count 4.86 10^6/uL (4.1-5.3); Red Cell Distribution Width 14.2 % (12.1-15.1); White Blood Count 15.5 10^3/uL (4.0-10.0)
[2021-08-06 14:42] VITALS: BP 199/124; PULSE 99; RESP 20; O2SAT 99
[2021-08-06 14:44] LABS: Alanine Aminotransferase 16 U/L (0-33); Alkaline Phosphatase 115 IU/L (35-105); Anion Gap 24.9 (5-19); Aspartate Amino Transferase 25 U/L (0-32); Blood Urea Nitrogen 18 mg/dL (6-20); Calcium 9.7 mg/dL (8.5-10.5); Carbon Dioxide 19 mmol/L (22-29); Chloride 93 mmol/L (98-107); Globulin 2.9 g/dL (1.3-4.6); Glomerular Filtration Rate 87.5 mL/min (90-130); Glucose 125 mg/dL (65-115); Lipase 24 U/L (13-60); Magnesium 1.6 mg/dL (1.7-2.3); Osmolality Calculated 279 mOsm/kg (285-295); Potassium 3.9 mmol/L (3.5-5.1); Sodium 133 mmol/L (136-145); Total Bilirubin 0.5 mg/dL (0.15-1.2); Total Protein 7.9 g/dL (6.6-8.7)
[2021-08-06 15:06] VITALS: BP 199/124; PULSE 99; RESP 22; O2SAT 99
--- NOTE | 2021-08-06 15:07 | PC.NURSE ---
Pt ambulated to bathroom with unsteady gait. Pt stated I'm so cold, that's why I'm unsteady
[2021-08-06] MEDS: ondansetron 2 mg/ML SDV 2 mL 4 MG IVP (15:12)
[2021-08-06 15:36] LABS: Add Urine Microscopic? YES; Bilirubin Urine Neg (Negative); Blood Urine 2+ (Negative); Glucose Urine UA Norm (Normal); Ketones Urine 2+ (Negative); Leukocyte Esterase Urine Negative (Negative); Nitrate Urine Negative (Negative); Protein Urine 3+ (Negative); Specific Gravity, Urine 1.015 (1.005-1.030); Urine Appearance Clear (CLEAR); Urine Color Yellow (Yellow); Urobilinogen Urine Norm (Negative); pH Urine 6.5 (5-7)
[2021-08-06 15:38] LABS: Bacteria Urine TRACE /hpf; Mucus Urine TRACE /hpf; Squamous Epithelial Cell Urine 0-4 /hpf (0-5); WBC Urine RARE /hpf (0-5)
[2021-08-06 15:39] LABS: Add Urine Culture? No
[2021-08-06 16:00] VITALS: BP 145/90; PULSE 115; RESP 18; O2SAT 97
[2021-08-06] MEDS: NIFEdipine ER (24 hr) 30 mg Tablet 60 MG PO (16:08)
--- NOTE | 2021-08-06 16:23 | PC.NURSE ---
Pt yelling I'm vomiting, no vomiting noted Pt continues to yell I need to poop Found pt in bathroom, having a BM. Notified provider of pt's c/o nausea and vomiting.
[2021-08-06] MEDS: magnesium oxide 400 mg tablet PO (16:25)
--- NOTE | 2021-08-06 16:40 | PC.NURSE ---
Attempt to discharge pt. Pt stated I cannot go home I'm sick . Notified provider
--- NOTE | 2021-08-06 17:11 | ECG_ITS ---
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 Measurements Intervals [place] Rate: 90 P: 31 IN: 120 QRS: 59 QRSD: 92 T: 67 QT: 424 QTc: 521 Interpretive Statements SINUS RHYTHM WITH FREQUENT VENTRICULAR PREMATURE COMPLEXES PROLONGED QT INTERVAL Compared to ECG 04/27/2019 09:24:46 Ventricular premature complex(es) now present ST (T wave) deviation no longer present Electronically Signed On 08-07-2021 17:11:18 OPTIMIZATION ENGINEER by Harsha Felipe M.D. [email or web address]
== END 2021-08-06 17:13 | disposition home or self-care (01) ==
PROVIDERS: Emergency Provider Emergency Medicine; PCP Nurse Practitioner Family
DX: R10.9 Unspecified abdominal pain (principal); R11.2 Nausea with vomiting, unspecified; I10 Essential (primary) hypertension; F17.210 Nicotine dependence, cigarettes, uncomplicated
CPT/HCPCS: 80053; 81001; 83690; 83735; 85025; 93005; 96361; 96374; 96375; 99284; J0360; J1630; J2405; J3490; J7030

== ENCOUNTER 2021-08-07 21:24 | Emergency (ER) | payer MEDICARE, MEDICAID, SELFPAY ==
[2021-08-07 21:28] VITALS: BP 200/137; PULSE 111; RESP 18; TEMP 37.2; O2SAT 97; BMI 25.4
--- NOTE | 2021-08-07 21:35 | ED_ITS ---
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 She denies any diarrhea. Associated nausea: Yes Associated symtoms: Reports nausea; Denies chest pain, dysuria or headache(s) Review of Systems Const: Denies: fever(s), chills, body aches or change in appetite Eyes: Denies: blurry vision or eye discomfort ENMT: Denies: throat pain or dental pain Card: Denies: chest pain Resp: Denies: dyspnea GI: Reports: abdominal pain, nausea and vomiting : Denies: dysuria Musc: Denies: neck pain or back pain Skin/Breast: Denies: rash Neuro: Denies: headache(s) Psych: Denies: depression Ba/Lymph: Denies: easy bruising All/Imm: Denies: urticaria PFSH ED PFSH: Medical History Anxiety Cannabis dependence, uncomplicated High risk medication use Hypertension Major depressive disorder, recurrent, in partial remission Plaque psoriasis Post-traumatic stress disorder, chronic Psoriatic arthritis Social History Smoking and tobacco status: current some day smoker (on patches sometimes 1 to 3 a day) cigarettes Packs smoked per day: 1 Smoking risk assessment/counseling performed?: Yes Tobacco counseling given: counseling >3 minutes Physical Exam Const: COMMON NORMALS: no acute distress, patient oriented x3 and healthy appearing HENMT: COMMON NORMALS: normocephalic and atraumatic HEAD & SCALP: normocephalic and atraumatic Eye: COMMON NORMALS: Equal, round and reactive pupils present and EOMs intact bilaterally PUPIL: Yes Equal, round and reactive pupils present Neck/C-Spine: COMMON NORMALS: full ROM and supple Chest: COMMONS NORMALS: normal inspection of the chest and normal palpation of entire chest wall Resp: COMMON NORMALS: normal respiratory effort, No retractions, No use of accessory muscles and clear to auscultation bilaterally AUSCULTATION: clear to auscultation bilaterally Cardio: COMMON NORMALS: regular rate, regular rhythm and No murmurs present (Cardio) RATE: regular rate RHYTHM: regular rhythm GI: COMMON NORMALS: Normal to inspection, nondistended, normoactive bowel sounds present, Soft to palpation, non-tender and no masses PALPATION: Yes Soft to palpation Extremity: COMMON NORMALS: normal to inspection and full ROM Neuro: COMMON NORMALS: patient oriented x3, moves all extremities and no focal motor deficits Psych: COMMON NORMALS: mental status grossly normal, Normal thought process present and cooperative THOUGHT PROCESS: Normal thought process present Skin: COMMON NORMALS: no rashes or lesions noted and no wounds GENERAL SKIN EXAM: no rashes or lesions noted Course Vital Signs: Vital signs: Vital Signs Temperature 98.9 F 08/07/21 21:28 Pulse Rate 87 08/08/21 03:13 Respiratory Rate 18 08/08/21 03:13 Blood Pressure 127/86 08/08/21 03:13 Pulse Oximetry 96 08/08/21 03:13 MDM - Nausea/Vomiting/Diarrhea MDM Narrative: Medical decision making narrative: Patient presents here with cyclic vomiting syndrome she feels much improved here after Ativan patient's blood pressure here is improved as well CT scan shows no acute findings we will place her on Reglan at home she is to follow-up with PCP and return if worsening she understands agrees to plan. Lab Data: Labs: Lab Results 08/07/21 08/07/21 08/07/21 21:55 21:55 21:55 WBC 18.5 10^3/uL H 10 ^3/uL (4.0-10.0) RBC 4.93 10^6/uL 10^6 /uL (4.1-5.3) Hgb 15.4 g/dL H g/dL (11.5-15.3) Hct 44.0 % % (37.0-47.0) MCV 89.2 fl fl (81-99) MCH 31.2 pg pg (28.0-34.0) MCHC 35.0 g/dL g/dL (30.0-36.0) RDW 13.7 % % (12.1-15.1) Plt Count 427 10^3/cmm H 10 ^3/cmm (130-400) MPV 10.4 fL fL (7.4-10.4) Neut % (Auto) 86.4 % % Lymph % (Auto) 7.0 % % [place] % (Auto) 5.6 % % Eos % (Auto) 0.1 % % Baso % (Auto) 0.2 % % Neut # (Auto) 16.04 10^3/uL H 1 0^3/uL (1.8-7.7) Lymph # (Auto) 1.3 10^3/uL 10^3/ uL (0.8-4.8) [place] # (Auto) 1.0 10^3/uL H 10^ 3/uL (0.2-0.9) Eos # (Auto) 0.0 10^3/uL 10^3/ uL (0.0-0.8) Baso # (Auto) 0.0 10^3/uL 10^3/ uL (0.0-0.1) Nucleated RBC % (a uto) 0 % % Nucleated RBCs # 0.0 /100WBC /100W BC Sodium 136 mmol/L mmol/L (136-145) Potassium 3.5 mmol/L mmol/L (3.5-5.1) Chloride 92 mmol/L L mmol/ L (98-107) Carbon Dioxide 22 mmol/L mmol/L (22-29) Anion Gap 25.5 H (5-19) BUN 17 mg/dL mg/dL (6-20) Creatinine 0.9 mg/dL mg/dL (0.5-0.9) GFR Calculation 65.5 mL/min L mL/ min (90-130) Glucose 124 mg/dL H mg/dL (65-115) Calculated Osmolal ity 285 mOsm/kg mOsm/ kg (285-295) Lactate 1.5 mmol/L mmol/L (0.5-2.2) Calcium 9.4 mg/dL mg/dL (8.5-10.5) Total Bilirubin 0.5 mg/dL mg/dL (0.15-1.2) AST 30 U/L U/L (0-32) ALT 17 U/L U/L (0-33) Alkaline Phosphata se 108 IU/L H IU/L (35-105) Total Protein 8.3 g/dL g/dL (6.6-8.7) Albumin 5.0 g/dL g/dL (3.5-5.2) Globulin 3.3 g/dL g/dL (1.3-4.6) Lipase 39 U/L U/L (13-60) Imaging Data^: CT Abd/Pel: Attestation: I personally reviewed and interpreted this imaging study as follows: Radiologist's impression: [employer] [place] [address] CT Scan Report Signed Patient: Rachelle Mireles Unit #: [id number] : 1970 Age/Sex: 51 / F ADM Date: 08/07/21 Loc: ER Room/Bed: Attending Dr: Ordering Provider/Ordering MD: Rianna Schneider MD Date of Service: 08/07/21 Procedure(s): CT abdomen pelvis w con* [id number] Accession Number(s): [id number] Report Number: [id number] PROCEDURE INFORMATION: Exam: CT Abdomen And Pelvis With Contrast Exam date and time: 08/07/2021 10:08 PM Age: 51 years old Clinical indication: Abdominal pain; Prior surgery; Surgery type: Appy, gb, hyst, pelvis; Additional info: Abd pain TECHNIQUE: Imaging protocol: Computed tomography of the abdomen and pelvis with contrast. Radiation optimization: All CT scans at this facility use at least one of these dose optimization techniques: automated exposure control; mA and/or kV adjustment per patient size (includes targeted exams where dose is matched to clinical indication); or iterative reconstruction. Contrast material: OMNI 300; Contrast volume: 95 ml; Contrast route: INTRAVENOUS (IV); COMPARISON: CT abdomen pelvis w con* [id number] 07/12/2021 8:32 PM RADIATION DOSE METRICS: Total DLP (mGy-cm): 1208.65 FINDINGS: Tubes, catheters and devices: There is fixation hardware throughout pelvis which is unchanged and appears intact. Liver: There is a subcentimeter cyst or hemangioma in the right lobe of the liver. Gallbladder and bile ducts: The patient has had a cholecystectomy. Pancreas: Normal. No ductal dilation. Spleen: Normal. No splenomegaly. Adrenal glands: There is adenomatous hyperplasia in both adrenal glands. Kidneys and ureters: There are cysts in both kidneys, measuring up to 2.0 cm on the left. Stomach and bowel: Scattered diverticula without evidence of acute diverticulitis or perforation. Loops of small bowel throughout the abdomen with thickened enhancing kahn consistent with infectious or inflammatory enteritis. Appendix: Patient has had an appendectomy. Intraperitoneal space: Unremarkable. No free air. No significant fluid collection. Vasculature: Unremarkable. No abdominal aortic aneurysm. Lymph nodes: Unremarkable. No enlarged lymph nodes. Urinary bladder: Unremarkable as visualized. Reproductive: The patient has had a hysterectomy. Bones/joints: Unremarkable. No acute fracture. Soft tissues: Unremarkable. CT/CT abdomen pelvis w con* [id number] IMPRESSION: Probable infectious or inflammatory enteritis. Bilateral renal cysts and subcentimeter cyst or hemangioma in the liver. Bilateral adenomatous hyperplasia of the adrenal glands. Other surgical changes as described above. COMMENTS: Consistent with the [employer]'s Incidental Findings Committee white paper (J Am Marga Radiol 2018): Any incidental renal lesion less than 1 cm or classified as too small to characterize, or any incidental cystic renal lesion characterized as simple-appearing, is likely benign. No follow-up imaging is recommended for these lesions per consensus recommendations based on imaging criteria. Dictated By: Bong Howell MD Signed By: Bong Howell MD Signed Date/Time: 08/07/212339 DD/ 07 Discharge Plan Discharge Patient Disposition: Home Clinical Impression: Cyclical vomiting Condition: Stable Prescriptions: New Reglan 10 mg tablet 10 mg PO Q6H PRN (Reason: nausea and vomiting) Qty: 20 RF: 0 No Action (DME) thumb spica splint Qty: 1 RF: 0 multivitamin [Daily Multi-Vitamin] Tablet 1 tab PO DAILY RF: 0 triamcinolone acetonide 0.1 % ointment 1 applic TOPICAL BID Qty: 80 RF: 1 ketoconazole 2 % shampoo 1 applic topical .2 x weekly Qty: 120 RF: 3 tacrolimus 0.1 % ointment 1 applic topical BID Qty: 30 RF: 1 Cymbalta 60 mg capsule,delayed release(DR/EC) 60 mg PO BID Qty: 60 RF: 0 promethazine [Promethegan] 25 mg suppository 25 mg [place] Q4H PRN (Reason: Nausea And Vomiting) RF: 0 Skyrizi 150 mg/mL pen injector 150 mg SUBCUT .EVERY 12 WEEKS RF: 0 baclofen 20 mg Tablet 20 mg PO TID PRN (Reason: Muscle Spasm) RF: 0 hydrochlorothiazide 25 mg tablet 25 mg PO DAILY RF: 0 pregabalin 100 mg capsule 100 mg PO BID RF: 0 albuterol sulfate [Ventolin HFA] 90 mcg/actuation Hfa Aerosol Inhaler 1 - 2 puff INHALATION QID PRN (Reason: Shortness Of Breath) RF: 0 pantoprazole 40 mg tablet,delayed release (DR/EC) 40 mg PO BID 42 Days Qty: 84 RF: 0 sucralfate 1 gram Tablet 1 g PO AC&BEDTIME 30 Days Qty: 120 RF: 0 potassium chloride 20 mEq tablet extended release 20 meq PO 5XD Qty: 5 RF: 0 acetaminophen 500 mg tablet 500 mg PO Q6H PRN (Reason: pain) 5 Days Qty: 20 RF: 0 Pepcid 20 mg tablet 20 mg PO BID PRN (Reason: abdominal pain) 10 Days Qty: 20 RF: 0 Maalox Advanced 1,000-60 mg tablet,chewable 1 tab PO TID PRN (Reason: abdominal pain) 7 Days Qty: 21 RF: 0 Zofran 4 mg tablet 4 mg PO TID PRN (Reason: nausea and vomiting) 4 Days Qty: 12 RF: 0 lorazepam [Ativan] 2 mg tablet 2 mg PO TID PRN (Reason: nausea and vomiting) Qty: 10 RF: 0 Discharge Orders: Discharge ED (Routine); Ordered 08/08/21 Ordered By: Rianna Schneider Referrals: Tom Dan NP [Primary Care Provider] - 1-3 days Discharge Diet: Advance as tolerated Discharge Activity: Resume usual activity Patient Instructions: Acute Nausea and Vomiting (ED) Coding Level of Care Code ED Pole Climber for [place] Fwd Exam Comprehensive
[2021-08-07] MEDS: sodium chloride 0.9% 1,000 ML 999 ML IV (21:51)
[2021-08-07] MEDS: metoclopramide 5 mg/mL SDV 2 mL 10 MG IVP (21:51)
[2021-08-07] MEDS: diphenhydrAMINE 50 mg/mL SDV 1mL IVP (21:51)
[2021-08-07 22:06] LABS: Basophils % 0.2 %; Eosinophils % 0.1 %; Hemoglobin 15.4 g/dL (11.5-15.3); Lymphocytes # 1.3 10^3/uL (0.8-4.8); Mean Corpuscular Hemoglobin 31.2 pg (28.0-34.0); Mean Corpuscular Volume 89.2 fl (81-99); Mean Platelet Volume 10.4 fL (7.4-10.4); Monocytes % 5.6 %; Neutrophils # 16.04 10^3/uL (1.8-7.7); Neutrophils % 86.4 %; Nucleated Red Blood Cells % 0 %; Platelet Count 427 10^3/cmm (130-400); Red Blood Count 4.93 10^6/uL (4.1-5.3); Red Cell Distribution Width 13.7 % (12.1-15.1); White Blood Count 18.5 10^3/uL (4.0-10.0)
--- NOTE | 2021-08-07 22:08 | CTR_ITS ---
PROCEDURE INFORMATION: Exam: CT Abdomen And Pelvis With Contrast Exam date and time: 08/07/2021 10:08 PM Age: 51 years old Clinical indication: Abdominal pain; Prior surgery; Surgery type: Appy, gb, hyst, pelvis; Additional info: Abd pain TECHNIQUE: Imaging protocol: Computed tomography of the abdomen and pelvis with contrast. Radiation optimization: All CT scans at this facility use at least one of these dose optimization techniques: automated exposure control; mA and/or kV adjustment per patient size (includes targeted exams where dose is matched to clinical indication); or iterative reconstruction. Contrast material: OMNI 300; Contrast volume: 95 ml; Contrast route: INTRAVENOUS (IV); COMPARISON: CT abdomen pelvis w con* [id number] 07/12/2021 8:32 PM RADIATION DOSE METRICS: Total DLP (mGy-cm): 1208.65 FINDINGS: Tubes, catheters and devices: There is fixation hardware throughout pelvis which is unchanged and appears intact. Liver: There is a subcentimeter cyst or hemangioma in the right lobe of the liver. Gallbladder and bile ducts: The patient has had a cholecystectomy. Pancreas: Normal. No ductal dilation. Spleen: Normal. No splenomegaly. Adrenal glands: There is adenomatous hyperplasia in both adrenal glands. Kidneys and ureters: There are cysts in both kidneys, measuring up to 2.0 cm on the left. Stomach and bowel: Scattered diverticula without evidence of acute diverticulitis or perforation. Loops of small bowel throughout the abdomen with thickened enhancing kahn consistent with infectious or inflammatory enteritis. Appendix: Patient has had an appendectomy. Intraperitoneal space: Unremarkable. No free air. No significant fluid collection. Vasculature: Unremarkable. No abdominal aortic aneurysm. Lymph nodes: Unremarkable. No enlarged lymph nodes. Urinary bladder: Unremarkable as visualized. Reproductive: The patient has had a hysterectomy. Bones/joints: Unremarkable. No acute fracture. Soft tissues: Unremarkable. CT/CT abdomen pelvis w con* [id number] IMPRESSION: Probable infectious or inflammatory enteritis. Bilateral renal cysts and subcentimeter cyst or hemangioma in the liver. Bilateral adenomatous hyperplasia of the adrenal glands. Other surgical changes as described above. COMMENTS: Consistent with the [employer]'s Incidental Findings Committee white paper (J Am Marga Radiol 2018): Any incidental renal lesion less than 1 cm or classified as too small to characterize, or any incidental cystic renal lesion characterized as simple-appearing, is likely benign. No follow-up imaging is recommended for these lesions per consensus recommendations based on imaging criteria.
[2021-08-07] MEDS: LORazepam 2 mg/mL INJ 1 mL IVP (22:20)
[2021-08-07 22:30] LABS: Alkaline Phosphatase 108 IU/L (35-105); Blood Urea Nitrogen 17 mg/dL (6-20); Calcium 9.4 mg/dL (8.5-10.5); Carbon Dioxide 22 mmol/L (22-29); Chloride 92 mmol/L (98-107); Globulin 3.3 g/dL (1.3-4.6); Glomerular Filtration Rate 65.5 mL/min (90-130); Glucose 124 mg/dL (65-115); Lipase 39 U/L (13-60); Osmolality Calculated 285 mOsm/kg (285-295); Sodium 136 mmol/L (136-145); Total Bilirubin 0.5 mg/dL (0.15-1.2); Total Protein 8.3 g/dL (6.6-8.7)
[2021-08-07] MEDS: iohexol 300 mg/mL 100 mL Btl IV (22:39)
[2021-08-07 22:45] LABS: Anion Gap 25.5 (5-19); Aspartate Amino Transferase 30 U/L (0-32); Potassium 3.5 mmol/L (3.5-5.1)
[2021-08-07 22:46] LABS: Alanine Aminotransferase 17 U/L (0-33)
[2021-08-07 22:47] LABS: Lactate (Lactic Acid level) 1.5 mmol/L (0.5-2.2)
[2021-08-07] MEDS: labetalol 5 mg/mL SDV 20mL 10 MG IVP (23:10)
[2021-08-07] MEDS: morphine 4 mg/mL SDV 1 mL IVP (23:14)
[2021-08-08] MEDS: haloperidol inj 5 mg/mL INJ 1 mL IVP (00:29)
[2021-08-08] MEDS: LORazepam 2 mg/mL INJ 1 mL IVP (01:19)
[2021-08-08] MEDS: sodium chloride 0.9% 1,000 ML 999 ML IV (01:19)
[2021-08-08 01:31] VITALS: BP 188/122; PULSE 94; RESP 18; O2SAT 94
[2021-08-08 01:39] VITALS: BP 70/49; PULSE 101; RESP 18; O2SAT 94
[2021-08-08 01:44] VITALS: BP 101/62; PULSE 99; RESP 16; O2SAT 94
--- NOTE | 2021-08-08 01:49 | PC.NURSE ---
0139 Pt hypotensive. Reported to MD. Fluids placed on pressure bag.
[2021-08-08 02:52] VITALS: BP 105/57; PULSE 88; RESP 18; O2SAT 96
[2021-08-08 03:13] VITALS: BP 127/86; PULSE 87; RESP 18; O2SAT 96
== END 2021-08-08 03:14 | disposition home or self-care (01) ==
PROVIDERS: Emergency Provider Emergency Medicine; PCP Nurse Practitioner Family
DX: R11.15 Cyclical vomiting syndrome unrelated to migraine (principal); I10 Essential (primary) hypertension; F17.210 Nicotine dependence, cigarettes, uncomplicated
CPT/HCPCS: 74177; 80053; 83605; 83690; 85025; 96361; 96374; 96375; 96376; 99284; J1200; J1630; J2060; J2270; J2765; J3490; J7030; Q9967

== ENCOUNTER 2021-08-18 09:07 | Outpatient (CLI) | payer MEDICARE, MEDICAID, SELFPAY ==
--- NOTE | 2021-08-18 | XR_ITS ---
WS: [id number] Right shoulder, 2 views, 08/18/2021 Clinical Data: RIGHT ACROMIOCLAVICULAR PAIN Comparison: Right shoulder, 08/04/2021. Findings: There is elevation of the right AC joint with separation of the AC joint of 2.4 cm unchanged. There is minimal osteoarthritic change of the right shoulder joint. There is a cortical defect of the proximal medial humerus unchanged. XR/XR shoulder RT min 2V* [id number] Impression: No change in elevation and separation of the right AC joint.
== END 2021-08-18 09:08 | disposition home or self-care (01) ==
PROVIDERS: PCP Nurse Practitioner Family; Visit Provider Family Medicine
DX: S43.101A Unspecified dislocation of right acromioclavicular joint, initial encounter (principal); X58.XXXA Exposure to other specified factors, initial encounter
CPT/HCPCS: 73030

== ENCOUNTER 2021-08-22 07:53 | Outpatient (CLI) | payer MEDICARE, MEDICAID, SELFPAY ==
--- NOTE | 2021-08-22 08:02 | MR_ITS ---
WS: [id number] MRI HEAD WITHOUT CONTRAST TECHNIQUE: Sagittal T1, T2 axial, T2 axial FLAIR, axial susceptibility weighted imaging, axial diffus ion weighted images, and coronal T2 images were obtained. High-resolution imaging of the IACs. Patien t refused IV contrast. CLINICAL INFORMATION: MIXED CONDUCTIVE AND SENSORINEURAL HEARING LOSS, BILATERAL COMPARISON: 2010 FINDINGS: No evidence of restricted diffusion to suggest acute ischemia. Ventricular system and basal cisterns are patent. Mild small vessel changes with mild parenchymal volume loss. 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 This is new since 2010. Normal vascular flow voids at the skull bas e. No extra axial fluid collections. Mild mucosal thickening in the mastoid air cells. Mild mucosal t hickening in the paranasal sinuses. No hemosiderin on the susceptibility weighted images. Normal opti c chiasm and pituitary infundibulum. Temporal lobes and hippocampal formations are normal. Prominent lymph nodes in the upper cervical chains nonspecific but likely reactive. Noncontrast of intracranial nerves are normal in appearance. Normal trigeminal nerve root entry zones . Normal noncontrast IACs. No CP angle mass. MR/MR iac's wo con [id number] IMPRESSION: Contrast not administered. Patient deferred IV contrast. 1. Normal noncontrast IACs. Proximal 7th and 8th cranial nerves are normal in appearance. 2. Normal trigeminal nerve root entry zones. 3. Mild mucosal thickening in the mastoid air cells. No CP angle mass. 4. Mild mucosal thickening in the paranasal sinuses. 5. 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 6. Mild small vessel changes with mild parenchymal volume loss. 7. No hemosiderin on susceptibly weighted images.
== END 2021-08-22 07:54 | disposition home or self-care (01) ==
PROVIDERS: PCP Nurse Practitioner Family; Visit Provider Specialist
DX: H90.6 Mixed conductive and sensorineural hearing loss, bilateral (principal); H93.13 Tinnitus, bilateral; I63.9 Cerebral infarction, unspecified
CPT/HCPCS: 70551

== ENCOUNTER 2021-09-04 06:08 | Observation (INO) | payer MEDICARE, MEDICAID, SELFPAY ==
[2021-09-04] VITALS (9 sets, daily range): BP systolic 107–180; BP diastolic 76–119; PULSE 93–120; RESP 14–19; TEMP 37.6; O2SAT 92–98; BMI 24.2
--- NOTE | 2021-09-04 06:13 | ED_ITS ---
HPI - Nausea/Vomiting/Diarrhea General: Chief complaint: Nausea/Vomiting/Diarrhea Stated complaint: N/V Time Seen by Provider: 09/04/21 06:13 History of Present Illness: HPI Narrative: 51 yo femle present with complaints of N/v for the last 36 hrs, Has had multiple episodes of vomitting with small streaks of blood noted. PT denies excessive ETOH intake. Reports single glass of champagne 2 days ago. MD elicited complaint: nausea and vomiting Onset (ago): hour(s) (36) Description of vomiting: bilious and blood-streaked Associated nausea: Yes Associated abdominal pain: Yes Location of pain: Diffuse Radiation: diffuse Pain consistency: constant Severity: moderate Quality: cramping Exacerbating factors: eating Relieving factors: none Associated symtoms: Reports anxiety, anorexia, malaise and nausea; Denies altered mental status, bloating, change in vision, chest pain, cough, diaphoresis, decreased urine output, dizziness, dysuria, epistaxis, fatigue, fecal incontinence, fevers/chills, headache(s), myalgias, numbness, palpitations, rash, short of breath, syncope, tenesmus, tinnitus or weakness Review of Systems Const: Reports: malaise; Denies: fatigue or diaphoresis Eyes: Denies: change in vision ENMT: Denies: tinnitus or epistaxis Card: Denies: chest pain, palpitations or syncope Resp: Denies: dyspnea, productive cough or non-productive cough GI: Reports: nausea; Denies: bloating or fecal incontinence : Denies: dysuria Skin/Breast: Denies: rash or pruritus Neuro: Denies: headache(s) or dizziness Psych: Reports: anxiety PFSH ED PFSH: Medical History Anxiety Cannabis dependence, uncomplicated High risk medication use Hypertension Major depressive disorder, recurrent, in partial remission Plaque psoriasis Post-traumatic stress disorder, chronic Psoriatic arthritis Social History Smoking and tobacco status: current some day smoker (on patches sometimes 1 to 3 a day) cigarettes Packs smoked per day: 1 Smoking risk assessment/counseling performed?: Yes Tobacco counseling given: counseling >3 minutes Physical Exam Const: EXAM LIMITATIONS: no altered mental status GENERAL APPEARANCE: cooperative and comfortable ORIENTATION/CONSCIOUSNESS: Yes awake HENMT: COMMON NORMALS: normocephalic, atraumatic and hearing grossly normal bilaterally HEAD & SCALP: normocephalic and atraumatic Resp: COMMON NORMALS: normal respiratory effort, No retractions, No use of accessory muscles and clear to auscultation bilaterally AUSCULTATION: clear to auscultation bilaterally Cardio: COMMON NORMALS: regular rhythm and No murmurs present (Cardio) RATE: tachycardic RHYTHM: regular rhythm GI: COMMON NORMALS: No hepatosplenomegaly present AUSCULTATION: Yes normoactive bowel sounds PALPATION: Yes Tenderness to palpation present (GI) (Diffuse, varies with distraction), No Guarding due to palpation present (GI) and Yes No hepatosplenomegaly present Extremity: COMMON NORMALS: normal to inspection, capillary refill normal, no clubbing, cyanosis or edema, no calf tenderness and no pedal edema Skin: COMMON NORMALS: no rashes or lesions noted GENERAL SKIN EXAM: no rashes or lesions noted Course Vital Signs: Vital signs: Vital Signs Temperature 98.5 F 09/05/21 15:29 Pulse Rate 88 09/05/21 15:29 Respiratory Rate 16 09/05/21 15:29 Blood Pressure 147/79 09/05/21 15:29 Pulse Oximetry 96 09/05/21 15:29 MDM - Nausea/Vomiting/Diarrhea MDM Narrative: Medical decision making narrative: Patient tachycardic and hypertensive on arrival. States she has not taken any of her medicines for the last 2 days. She also states she has not smoked any marijuana in the last day. She said problems with hyperemesis cannabinoid syndrome in the past. Clinically she appears to be under the influence of methamphetamines at this time. Treat blood pressure manage her nausea and vomiting. Fluid replacement. Extensive attempts made to control nausea and vomiting in the department and discharge patient home. Anion gap was closed however she persisted with nausea and vomiting. She continues to be somewhat tachycardic. Her drug screen was negative for methamphetamines and alcohol. admit her for persistent nausea vomiting, hypokalemia, acute kidney injury, tachycardia discussed with hospitalist orders written. Lab Data: Labs: Lab Results 09/04/21 09/04/21 09/04/21 06:45 06:45 09:10 WBC 20.2 10^3/uL H 10 ^3/uL (4.0-10.0) RBC 4.64 10^6/uL 10^6 /uL (4.1-5.3) Hgb 14.5 g/dL g/dL (11.5-15.3) Hct 41.5 % % (37.0-47.0) MCV 89.4 fl fl (81-99) MCH 31.3 pg pg (28.0-34.0) MCHC 34.9 g/dL g/dL (30.0-36.0) RDW 13.8 % % (12.1-15.1) Plt Count 414 10^3/cmm H 10 ^3/cmm (130-400) MPV 10.0 fL fL (7.4-10.4) Neut % (Auto) 86.9 % % Lymph % (Auto) 4.5 % % [place] % (Auto) 7.8 % % Eos % (Auto) 0.1 % % Baso % (Auto) 0.1 % % Neut # (Auto) 17.53 10^3/uL H 1 0^3/uL (1.8-7.7) Lymph # (Auto) 0.9 10^3/uL 10^3/ uL (0.8-4.8) [place] # (Auto) 1.6 10^3/uL H 10^ 3/uL (0.2-0.9) Eos # (Auto) 0.0 10^3/uL 10^3/ uL (0.0-0.8) Baso # (Auto) 0.0 10^3/uL 10^3/ uL (0.0-0.1) Nucleated RBC % (a uto) 0 % % Nucleated RBCs # 0.0 /100WBC /100W BC Sodium 129 mmol/L L mmol /L (136-145) Potassium 3.2 mmol/L L mmol /L (3.5-5.1) Chloride 76 mmol/L L mmol/ L (98-107) Carbon Dioxide 28 mmol/L mmol/L (22-29) Anion Gap 28.2 H (5-19) BUN 24 mg/dL H mg/dL (6-20) Creatinine 1.8 mg/dL H mg/dL (0.5-0.9) GFR Calculation 29.4 mL/min L mL/ min (90-130) Glucose 132 mg/dL H mg/dL (65-115) Calculated Osmolal ity 274 mOsm/kg L mOs m/kg (285-295) Calcium 9.3 mg/dL mg/dL (8.5-10.5) Total Bilirubin 0.2 mg/dL mg/dL (0.15-1.2) AST 30 U/L U/L (0-32) ALT 16 U/L U/L (0-33) Alkaline Phosphata se 110 IU/L H IU/L (35-105) Total Protein 7.9 g/dL g/dL (6.6-8.7) Albumin 4.4 g/dL g/dL (3.5-5.2) Globulin 3.5 g/dL g/dL (1.3-4.6) Urine Color Yellow (Yellow) Urine Appearance Clear (CLEAR) Urine pH 8 H (5-7) Ur Specific Gravit y 1.010 (1.005-1.030) Urine Protein Neg (Negative) Urine Glucose (UA) Norm (Normal) Urine Ketones Negative (Negative) Urine Blood 2+ H (Negative) Urine Nitrate Negative (Negative) Urine Bilirubin Neg (Negative) Prot Sulfosalicyli c Acd Positive (Negative) Urine Urobilinogen Norm mg/dL mg/dL (Negative) Ur Leukocyte Destiny ase Negative (Negative) Urine RBC 0-4 /hpf H /hpf (0-2) Urine WBC 0-4 /hpf H /hpf (0-5) Ur Squamous Epith Cells 0-4 /hpf H /hpf (0-5) Amorphous Sediment Not Reportable Urine Bacteria Trace /hpf /hpf (NONE) Urine Opiates Scre en Ur Barbiturates Sc reen Ur Phencyclidine S crn Ur Amphetamines Sc reen U Benzodiazepines Scrn Urine Cocaine Scre en U Marijuana (THC) Screen Ethyl Alcohol 09/04/21 09/04/21 09/04/21 09:10 11:11 11:11 WBC RBC Hgb Hct MCV MCH MCHC RDW Plt Count MPV Neut % (Auto) Lymph % (Auto) [place] % (Auto) Eos % (Auto) Baso % (Auto) Neut # (Auto) Lymph # (Auto) [place] # (Auto) Eos # (Auto) Baso # (Auto) Nucleated RBC % (a uto) Nucleated RBCs # Sodium 135 mmol/L L mmol /L (136-145) Potassium 2.9 mmol/L L mmol /L (3.5-5.1) Chloride 92 mmol/L L mmol/ L (98-107) Carbon Dioxide 29 mmol/L mmol/L (22-29) Anion Gap 16.9 (5-19) BUN 18 mg/dL mg/dL (6-20) Creatinine 1.2 mg/dL H mg/dL (0.5-0.9) GFR Calculation 47.0 mL/min L mL/ min (90-130) Glucose 112 mg/dL mg/dL (65-115) Calculated Osmolal ity 283 mOsm/kg L mOs m/kg (285-295) Calcium 8.0 mg/dL L mg/dL (8.5-10.5) Total Bilirubin AST ALT Alkaline Phosphata se Total Protein Albumin Globulin Urine Color Urine Appearance Urine pH Ur Specific Gravit y Urine Protein Urine Glucose (UA) Urine Ketones Urine Blood Urine Nitrate Urine Bilirubin Prot Sulfosalicyli c Acd Urine Urobilinogen Ur Leukocyte Destiny ase Urine RBC Urine WBC Ur Squamous Epith Cells Amorphous Sediment Urine Bacteria Urine Opiates Scre en Negative ng/mL ng /mL (Negative) Ur Barbiturates Sc reen Negative ng/mL ng /mL (Negative) Ur Phencyclidine S crn Negative ng/mL ng /mL (Negative) Ur Amphetamines Sc reen Negative ng/mL ng /mL (Negative) U Benzodiazepines Scrn Positive ng/mL H ng/mL (Negative) Urine Cocaine Scre en Negative ng/mL ng /mL (Negative) U Marijuana (THC) Screen Positive ng/mL H ng/mL (Negative) Ethyl Alcohol < 10 mg/dL mg/dL (0-10) Discharge Plan Discharge Patient Disposition: Admitted As Inpatient Admit Provider: Celia Mcgee Clinical Impression: Acute hypokalemia, Cannabinoid hyperemesis syndrome, Acute kidney injury Condition: Stable Coding Level of Care Code ED Business And Marketing Teacher for Chg Fwd Exam Detailed
[2021-09-04] MEDS: LORazepam 2 mg/mL INJ 1 mL IVP (06:46)
[2021-09-04] MEDS: hyDRALAzine 20 mg/mL INJ 1 mL IVP (06:49)
[2021-09-04] MEDS: amlodipine 10 mg Tablet PO (06:49)
[2021-09-04] MEDS: sodium chloride 0.9% 1,000 ML 999 ML IV ×3 (06:52→08:11)
[2021-09-04 06:54] LABS: Basophils % 0.1 %; Eosinophils % 0.1 %; Hematocrit 41.5 % (37.0-47.0); Hemoglobin 14.5 g/dL (11.5-15.3); Lymphocytes # 0.9 10^3/uL (0.8-4.8); Lymphocytes % 4.5 %; Mean Corpuscular HGB Conc 34.9 g/dL (30.0-36.0); Mean Corpuscular Hemoglobin 31.3 pg (28.0-34.0); Mean Corpuscular Volume 89.4 fl (81-99); Monocytes # 1.6 10^3/uL (0.2-0.9); Monocytes % 7.8 %; Neutrophils # 17.53 10^3/uL (1.8-7.7); Neutrophils % 86.9 %; Nucleated Red Blood Cells % 0 %; Platelet Count 414 10^3/cmm (130-400); Red Blood Count 4.64 10^6/uL (4.1-5.3); Red Cell Distribution Width 13.8 % (12.1-15.1); White Blood Count 20.2 10^3/uL (4.0-10.0)
[2021-09-04 07:14] LABS: Alanine Aminotransferase 16 U/L (0-33); Albumin Level 4.4 g/dL (3.5-5.2); Alkaline Phosphatase 110 IU/L (35-105); Aspartate Amino Transferase 30 U/L (0-32); Blood Urea Nitrogen 24 mg/dL (6-20); Calcium 9.3 mg/dL (8.5-10.5); Carbon Dioxide 28 mmol/L (22-29); Chloride 76 mmol/L (98-107); Globulin 3.5 g/dL (1.3-4.6); Glomerular Filtration Rate 29.4 mL/min (90-130); Glucose 132 mg/dL (65-115); Osmolality Calculated 274 mOsm/kg (285-295); Sodium 129 mmol/L (136-145); Total Bilirubin 0.2 mg/dL (0.15-1.2); Total Protein 7.9 g/dL (6.6-8.7)
[2021-09-04 07:18] LABS: Anion Gap 28.2 (5-19); Potassium 3.2 mmol/L (3.5-5.1)
[2021-09-04] MEDS: potassium chloride oral liq 20 mEq/15 mL UDC 60 MEQ PO (08:14)
[2021-09-04 09:33] LABS: Add Urine Microscopic? YES; Bilirubin Urine Neg (Negative); Blood Urine 2+ (Negative); Glucose Urine UA Norm (Normal); Ketones Urine Negative (Negative); Leukocyte Esterase Urine Negative (Negative); Nitrate Urine Negative (Negative); Protein Urine Neg (Negative); Sulfosalicylic Acid Urine Positive (Negative); Urine Appearance Clear (CLEAR); Urine Color Yellow (Yellow); Urobilinogen Urine Norm (Negative); pH Urine 8 (5-7)
[2021-09-04 09:34] LABS: Add Urine Culture? No; Bacteria Urine TRACE /hpf; RBC Urine 0-4 /hpf (0-2); Squamous Epithelial Cell Urine 0-4 /hpf (0-5); WBC Urine 0-4 /hpf (0-5)
--- NOTE | 2021-09-04 11:32 | ECG_ITS ---
[facility] Test Date: 2021-09-04 Pat Name: Rachelle Mireles Department: Room: Gender: Female Claim Adjuster: : 1970 Requested By: Lc Cisneros Order Number: [id number] Michael MD: Ramez Bustillos M.D. Measurements Intervals Cylinder Rate: 105 P: 60 NV: 144 QRS: 49 QRSD: 98 T: 60 QT: 282 QTc: 373 Interpretive Statements SINUS TACHYCARDIA POSSIBLE LEFT ATRIAL ENLARGEMENT [-0.1mV P-WAVE IN V1/V2] NONSPECIFIC ST & T-WAVE ABNORMALITY ABNORMAL RHYTHM ECG Compared to ECG 08/06/2021 13:32:47 T-wave abnormality now present Sinus rhythm no longer present Ventricular premature complex(es) no longer present Prolonged QT interval no longer present Electronically Signed On 09-04-2021 20:53:00 PUG MACHINE OPERATOR by Ramez Bustillos M.D. [id number]
[2021-09-04 11:38] LABS: Anion Gap 16.9 (5-19); Blood Urea Nitrogen 18 mg/dL (6-20); Carbon Dioxide 29 mmol/L (22-29); Chloride 92 mmol/L (98-107); Glucose 112 mg/dL (65-115); Osmolality Calculated 283 mOsm/kg (285-295); Sodium 135 mmol/L (136-145)
[2021-09-04 11:43] LABS: Creatinine Clr Calc Pharmacy 53.7469; Potassium 2.9 mmol/L (3.5-5.1)
[2021-09-04] MEDS: haloperidol inj 5 mg/mL INJ 1 mL 2.5 MG IVP ×2 (11:45→16:11)
--- NOTE | 2021-09-04 11:57 | CT_ITS ---
WS: [id number] CT ABDOMEN AND PELVIS WITH CONTRAST HISTORY: Abdominal pain. TECHNIQUE: Imaging performed of the abdomen and pelvis with IV contrast. Single phase imaging of the abdomen. Coronal and sagittal reformats are submitted. All CT scans at [facility] use at [address] one of these dose optimization techniques: automated exposure control; mA and/or kV adjustment per patient size (includes targeted exams where dose is matched to clinical indication); or iterative re construction. IV CONTRAST: Omnipaque 300; 95 mL IV. Oral contrast: No DLP: 1368.61 mGy.cm COMPARISON: 08/07/2021 Lower thorax: Lung bases are clear. Heart is normal size. Moderate size hiatal hernia. Mild circumfer ential thickening of the distal esophagus. Liver/biliary system: There are a few scattered low-attenuation nodules within the liver which are st able but too small to characterize due to their small size. No bile duct dilatation. Gallbladder: Status post cholecystectomy. Pancreas: Normal size pancreas and pancreatic duct. No adjacent inflammation. Spleen: Normal size spleen. No mass or infarct. Adrenal glands: Very mild hyperplasia and thickening of the RIGHT adrenal gland. There is a more nodu lar thickened appearance of both limbs of the LEFT adrenal gland which are stable. These findings hav e been stable since at least 04/27/2019. Right kidney: There are a few scattered hypodensities. No obstruction. Left kidney: Normal size kidney with a few stable cysts. No obstruction or solid mass identified. Aorta: Mild atherosclerosis with no aneurysm. Lymphadenopathy: None. Free fluid: None. GI tract: Normal appendix. GI tract obstruction. There is very mild increase fluid in the small bowel with no obstruction. No significant diverticular disease and no diverticulitis. Abdominal wall: Umbilical and supraumbilical hernias containing fat. There is some very mild strandin g in the fat associated with the umbilical hernia, similar to the prior study. Pelvis: Well-distended urinary bladder. No free fluid or adenopathy. Prior hysterectomy. Bones: Extensive hardware in the pelvis is unchanged in position. CT/CT abdomen pelvis w con* [id number] IMPRESSION: 1. No acute abdominal or pelvic abnormalities are identified. 2. Small hiatal hernia. 3. Stable bilateral adrenal hyperplasia and LEFT adrenal nodularity. 4. No GI tract obstruction. 5. Umbilical and supraumbilical hernias containing fat. Mild stranding in the omental fat at the umbilical hernia level was present on the prior study. 6. Normal appendix.
--- NOTE | 2021-09-04 11:59 | PC.PHAR ---
pt states she takes care of her own medications
[2021-09-04] MEDS: lidocaine 1% 5 ML in potassium chloride premix 100 ML 25 ML IV ×2 (12:15→15:53)
[2021-09-04] MEDS: iohexol 300 mg/mL 100 mL Btl IV (12:18)
[2021-09-04 13:15] LABS: Amphetamines Screen Urine Negative (Negative); Barbiturates Screen Urine Negative (Negative); Benzodiazepines Screen Urine Positive (Negative); Cocaine Screen Urine Negative (Negative); Opiate Screen Urine Negative (Negative); PCP Screen Urine Negative (Negative); THC Screen Urine Positive (Negative)
[2021-09-04] MEDS: LORazepam 2 mg/mL INJ 1 mL 1 MG IVP (16:11)
--- NOTE | 2021-09-04 18:05 | PM.HP ---
Providers/Chief Complaint Admitting Physician: Celia Mcgee MD Primary Care Provider: Tom Dan NP Chief Complaint: N/V History of Present Illness Rachelle Mireles is a 51 year old female with past medical history of anxiety, cannabis dependence, hypertension, major depressive disorder, PTSD who presented to the ER today with complaint of nausea vomiting for the last 36 hours. She stated to the ER doctor that she has had multiple episodes of vomiting with small streaks of blood noted. Denied any excessive alcohol intake. She did drink a single glass of champagne 2 days ago. Vomiting was bilious in nature and she is there with associated nausea. She also complained of some abdominal pain. When seen by medicine physician patient is completely asleep and unable to provide me with a history. She does answer questions from time to time but is very drowsy. She recently received Ativan. Able to answer some questions. ED course: Blood pressure 180/119, pulse ox 97, respirate 18, pulse 103. She was tachycardic and hypertensive on arrival. She stated that she had not taken any of her medications for the last 2 days. She also stated she had not smoked marijuana in the last day. She does have known problems with hyperemesis cannabinoid syndrome in the past. According to ER physician clinically it appeared that she was under the influence of methamphetamines at that time. She was given IV fluids treated for nausea vomiting. Initially WBC count 20,000, potassium low, anion gap 28. Sodium 129. She was given IV fluids and labs were repeated. Anion gap closed and sodium improved to 135. Potassium was low so she was given 60 mEq oral additionally. She was also given Ativan and Haldol. Drug screen was ordered. CT abdomen pelvis was normal. Review of Systems General: Reports: ROS unobtainable due to mental status Medications/Allergies Home Medications Medication Instructions Recorded Confirmed Last Taken Type thumb spica splint #1 ea 01/05/20 09/04/21 Unknown Rx duloxetine 60 mg capsule,delayed 60 mg PO BID #60 cap 02/15/20 09/04/21 07/12/21 Rx release multivitamin 1 tab PO DAILY 04/20/20 09/04/21 07/12/21 History albuterol sulfate [Ventolin HFA] 1 - 2 puff INHALATION QID PRN 07/13/21 09/04/21 6 Months Ago History ~01/11/21 baclofen 20 mg PO TID PRN 07/13/21 09/04/21 1 Week Ago History ~07/07/21 pregabalin 100 mg PO BID 07/13/21 09/04/21 2 Weeks Ago History ~06/30/21 promethazine [Promethegan] 25 mg HI Q4H PRN 07/13/21 09/04/21 07/12/21 History metoclopramide HCl [Reglan] 10 mg PO Q6H PRN #20 tab 08/07/21 09/04/21 Unknown Rx risankizumab-rzaa 150 mg/mL 150 mg SUBCUT .EVERY 12 WEEKS #1 ml 08/31/21 09/04/21 Unknown Rx subcutaneous pen injector amlodipine 2.5 mg PO DAILY 09/04/21 09/04/21 Unknown History ascorbic acid (vitamin C) [Vitamin 500 mg PO DAILY 09/04/21 09/04/21 Unknown History C] ibuprofen 800 mg PO TID PRN 09/04/21 09/04/21 Unknown History ketoconazole 1 applic TOPICAL .ONCE WEEKLY 09/04/21 09/04/21 Unknown History lisinopril-hydrochlorothiazide 1 tab PO DAILY 09/04/21 09/04/21 Unknown History naproxen [Naprosyn] 500 mg PO BID 09/04/21 09/04/21 Unknown History ondansetron 4 mg PO Q8H PRN 09/04/21 09/04/21 Unknown History pantoprazole 40 mg PO BID 09/04/21 09/04/21 Unknown History sucralfate See Rx Instructions .ROUTE .COMPLEX 09/04/21 09/04/21 Unknown History Allergies Allergy/AdvReac Type Severity Reaction Status Date / Time adhesive tape Allergy Intermediate rash, red Verified 09/04/21 11:59 codeine Allergy ALGY-Anaphy Verified 09/04/21 11:59 laxis paroxetine [From Paxil] Allergy Unconscious Verified 09/04/21 11:59 PFSH Acute PFSH: Medical History Anxiety Cannabis dependence, uncomplicated High risk medication use Hypertension Major depressive disorder, recurrent, in partial remission Plaque psoriasis Post-traumatic stress disorder, chronic Psoriatic arthritis Social History Smoking and tobacco status: current some day smoker (on patches sometimes 1 to 3 a day) cigarettes Packs smoked per day: 1 Smoking risk assessment/counseling performed?: Yes Tobacco counseling given: counseling >3 minutes Vitals/I&O/Wt Last Vital Signs Pulse 96 09/04/21 17:23 Resp 18 09/04/21 17:23 BP 107/96 09/04/21 17:23 Pulse Ox 94 09/04/21 17:23 09/04/21 09/04/21 09/04/21 06:59 14:59 22:59 Intake Total 1999 90.833 / 2090.833 Balance 1999 90.833 / 0.833 Weight last 48 hrs Weight 68.039 kg Physical Exam Narrative: EXAM NARRATIVE: General: Sleeping, drowsy, patient seen in bed in the MedSurg unit. HEENT: Normocephalic, atraumatic, EOMI, breathing room air Cardio: Regular rate rhythm, normal S1-S2, no murmurs Respiratory: Good bilateral air entry, no wheezes no rhonchi appreciated GI: Abdomen soft, mildly tender to palpation at epigastric region, nondistended, bowel sounds + Extremities: no edema, no cyanosis Data : 09/04/21 06:45 09/04/21 11:11 A&P Assessment and plan (1) Hypokalemia: Status: Acute (2) Acute kidney injury: Status: Acute (3) Major depressive disorder, recurrent, in partial remission: Status: Acute (4) Hyperemesis: Status: Acute (5) Marijuana abuse: Status: Acute Additional A&P Information #Nausea vomiting abdominal pain #Most likely hyperemesis due to cannabinoids #Anion gap metabolic acidosis initially which resolved after IV fluids #Major depressive disorder #Acute kidney injury ?Hypertension ?We will continue IV fluids normal saline 125 cc/h -We will replete electrolytes as needed ?We will observe patient overnight and reassess her status in the morning ?Zofran for nausea ?We will manage off of antibiotics for now since there does not seem to be a clear source of infection. WBC count elevated most likely due to stress. Will check blood cultures, stool culture (she did have few episodes of diarrhea). ?We will continue her home medications ?Continue regular diet - Recheck labs in AM. DVT prophylaxis: Lovenox Attestations Medical Necessity Statement*: observation. re-assess in AM. Coding Level of Care Code Acute Chief Radiation Therapist for [employer] Diagnoses Hypokalemia E87.6 Acute kidney injury N17.9 Major depressive disorder, recurrent, in partial remission F33.41 Hyperemesis R11.10 Marijuana abuse F12.10
[2021-09-04] MEDS: sodium chloride 0.9% 1,000 ML 75 ML IV (18:22)
[2021-09-04] MEDS: pantoprazole 40 mg SDV IVP (18:22)
[2021-09-04 18:39] LABS: Alcohol Level < 10 mg/dL (0-10)
--- NOTE | 2021-09-04 19:29 | PC.NURSE ---
Shift report received from Saray Torres RN. Patient in bed/resting. IV patent /infusing NS at 75mL/hr and potassium 25mL/hr. Bed alarm on for prevention of falls. No s/s of pain or discomfort. No needs noted at this time.
--- NOTE | 2021-09-04 19:34 | PC.NURSE ---
i reported high pulse 106 to nurse
[2021-09-04 22:59] LABS: Adenovirus Not Detected (NOT DETECT); Chlamydia Pneumoniae Not Detected (NOT DETECT); Coronavirus 229E,HKU1,NL63,OC4 Not Detected (NOT DETECT); Human Metapneumovirus Not Detected (NOT DETECT); Human Rhinovirus/Enterovirus Not Detected (NOT DETECT); Influenza A Not Detected (NOT DETECT); Influenza A H1 Not Detected (NOT DETECT); Influenza A H1-2009 Not Detected (NOT DETECT); Influenza A H3 Not Detected (NOT DETECT); Influenza B Not Detected (NOT DETECT); Mycoplasma Pneumoniae Not Detected (NOT DETECT); Parainfluenza Virus Type 1 Not Detected (NOT DETECT); Parainfluenza Virus Type 2 Not Detected (NOT DETECT); Parainfluenza Virus Type 3 Not Detected (NOT DETECT); Parainfluenza Virus Type 4 Not Detected (NOT DETECT); Respiratory Syncytial Virus A Not Detected (NOT DETECT); Respiratory Syncytial Virus B Not Detected (NOT DETECT); SARS-COV-2 Not Detected (NOT DETECT)
[2021-09-04] MEDS: sucralfate 1 gm Tablet PO (23:59)
[2021-09-05] VITALS: BP 134/64; PULSE 90; RESP 18; TEMP 37.3; O2SAT 90
--- NOTE | 2021-09-05 03:16 | PC.NURSE ---
Patient resting at this time. No s/s of pain or discomfort. No needs noted at this time.
[2021-09-05 04:00] VITALS: BP 146/74; PULSE 94; RESP 18; TEMP 36.9; O2SAT 93
[2021-09-05] MEDS: acetaminophen 325 mg Tablet 650 MG PO ×2 (06:04→11:42)
[2021-09-05 07:24] VITALS: BP 146/81; PULSE 84; RESP 16; TEMP 36.7; O2SAT 94
[2021-09-05 08:45] LABS: Lactic Sepsis W/Reflex 0.8 mmol/L (0.5-2.2)
[2021-09-05 08:48] LABS: Alanine Aminotransferase 16 U/L (0-33); Albumin Level 3.8 g/dL (3.5-5.2); Alkaline Phosphatase 91 IU/L (35-105); Anion Gap 17.6 (5-19); Aspartate Amino Transferase 33 U/L (0-32); Blood Urea Nitrogen 12 mg/dL (6-20); Calcium 8.4 mg/dL (8.5-10.5); Carbon Dioxide 23 mmol/L (22-29); Chloride 94 mmol/L (98-107); Globulin 2.5 g/dL (1.3-4.6); Glomerular Filtration Rate 87.5 mL/min (90-130); Glucose 127 mg/dL (65-115); Osmolality Calculated 273 mOsm/kg (285-295); Potassium 3.6 mmol/L (3.5-5.1); Sodium 131 mmol/L (136-145); Total Bilirubin 0.4 mg/dL (0.15-1.2); Total Protein 6.3 g/dL (6.6-8.7)
[2021-09-05 08:50] LABS: Magnesium 1.9 mg/dL (1.7-2.3)
[2021-09-05 08:57] LABS: Phosphorus 1.8 mg/dL (2.5-4.5); Thyroid Stimulating Hormone 2.42 uIU/mL (0.27-4.20)
[2021-09-05 09:08] LABS: Basophils % 0.2 %; Eosinophils % 0.1 %; Hematocrit 37.1 % (37.0-47.0); Hemoglobin 12.5 g/dL (11.5-15.3); Lymphocytes # 1.9 10^3/uL (0.8-4.8); Lymphocytes % 14.2 %; Mean Corpuscular HGB Conc 33.7 g/dL (30.0-36.0); Mean Corpuscular Hemoglobin 30.9 pg (28.0-34.0); Mean Corpuscular Volume 91.6 fl (81-99); Mean Platelet Volume 10.3 fL (7.4-10.4); Monocytes # 1.3 10^3/uL (0.2-0.9); Monocytes % 9.9 %; Neutrophils # 10.04 10^3/uL (1.8-7.7); Neutrophils % 75.2 %; Nucleated Red Blood Cells % 0 %; Platelet Count 385 10^3/cmm (130-400); Red Blood Count 4.05 10^6/uL (4.1-5.3); Red Cell Distribution Width 14.4 % (12.1-15.1); White Blood Count 13.4 10^3/uL (4.0-10.0)
[2021-09-05] MEDS: sucralfate 1 gm Tablet PO ×2 (09:26→11:42)
[2021-09-05] MEDS: ascorbic acid 500 mg Tablet PO (09:26)
[2021-09-05] MEDS: pregabalin 100 mg Capsule PO (09:26)
--- NOTE | 2021-09-05 10:58 | P.DS_ITS ---
Discharge Providers Date of Admission: 09/04/21 16:37 Date of Discharge: September 05, 2021 Attending Provider at Admission: Celia Mcgee MD Attending Provider at Discharge: Celia Mcgee MD Primary Care Provider: Tom Dan NP Diagnoses at Discharge Discharge Diagnosis (1) Hypokalemia: Status: Acute (2) Acute kidney injury: Status: Acute (3) Major depressive disorder, recurrent, in partial remission: Status: Acute (4) Hyperemesis: Status: Acute (5) Marijuana abuse: Status: Acute Reason for Visit Reason for Visit: N/V Hospital Course Hospital Course Patient was admitted for nausea vomiting and a few episodes of diarrhea. She also had anion gap metabolic acidosis on admission she was given electrolytes and IV fluids. Repeat labs improved. Since patient was hypokalemic she was admitted for observation overnight. WBC count was also high at admission which was most likely due to stress leukocytosis. Patient got Ativan and Haldol in the ER. She was positive for marijuana. 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 She did state that she used it a day prior to admission. Patient's electrolytes were repleted she was observed overnight and repeat labs this morning were unremarkable. Phosphate was low which was repleted. Patient did have a little bit of epigastric pain from the vomiting and the retching. She was discharged home on Protonix and sucralfate. Off note CAT scan of abdomen did not show any acute pathology related to her symptoms. Physical Exam Narrative: EXAM NARRATIVE: General: Awake alert and oriented x3. Is in good spirits and doing well. HEENT: Normocephalic, atraumatic, EOMI, breathing room air Cardio: Regular rate rhythm, normal S1-S2, no murmurs Respiratory: Good bilateral air entry, no wheezes no rhonchi appreciated GI: Abdomen soft, nontender to palpation, nondistended, bowel sounds +, she does state her epigastric region is a little bit sore but does not have any active pain. Extremities: no edema, no cyanosis Discharge Data Data Completed and Pending: Completed Studies During Hospitalization Category Date Time Status CT abdomen pelvis w con* [id number] Stat Cat Scan 09/04/21 11:57 Completed Pending at discharge Category Date Time Status Blood Culture Sta t Lab 09/05/21 09:56 Results Enteric Bacterial Panel by PCR Rout ine Lab 09/05/21 08:17 Uncollected Urine Culture Sta t Lab 09/05/21 08:39 Uncollected Labs from last 24 hours 09/05/21 09/05/21 09/05/21 08:12 08:12 08:12 WBC 13.4 H RBC 4.05 L Hgb 12.5 Hct 37.1 MCV 91.6 MCH 30.9 MCHC 33.7 RDW 14.4 Plt Count 385 MPV 10.3 Neut % (Auto) 75.2 Lymph % (Auto) 14.2 [place] % (Auto) 9.9 Eos % (Auto) 0.1 Baso % (Auto) 0.2 Neut # (Auto) 10.04 H Lymph # (Auto) 1.9 [place] # (Auto) 1.3 H Eos # (Auto) 0.0 Baso # (Auto) 0.0 Nucleated RBC % (a uto) 0 Nucleated RBCs # 0.0 Sodium 131 L Potassium 3.6 Chloride 94 L Carbon Dioxide 23 Anion Gap 17.6 BUN 12 Creatinine 0.7 GFR Calculation 87.5 L Glucose 127 H Calculated Osmolal ity 273 L Lactic Acid Calcium 8.4 L Phosphorus Magnesium 1.9 Total Bilirubin 0.4 AST 33 H ALT 16 Alkaline Phosphata se 91 Total Protein 6.3 L Albumin 3.8 Globulin 2.5 TSH Urine Opiates Scre en Ur Barbiturates Sc reen Ur Phencyclidine S crn Ur Amphetamines Sc reen U Benzodiazepines Scrn Urine Cocaine Scre en U Marijuana (THC) Screen Ethyl Alcohol Coronavirus 229E ( PCR) SARS-CoV-2 (PCR) 09/05/21 09/05/21 09/04/21 08:12 08:12 20:25 WBC RBC Hgb Hct MCV MCH MCHC RDW Plt Count MPV Neut % (Auto) Lymph % (Auto) [place] % (Auto) Eos % (Auto) Baso % (Auto) Neut # (Auto) Lymph # (Auto) [place] # (Auto) Eos # (Auto) Baso # (Auto) Nucleated RBC % (a uto) Nucleated RBCs # Sodium Potassium Chloride Carbon Dioxide Anion Gap BUN Creatinine GFR Calculation Glucose Calculated Osmolal ity Lactic Acid 0.8 Calcium Phosphorus 1.8 L Magnesium Total Bilirubin AST ALT Alkaline Phosphata se Total Protein Albumin Globulin TSH 2.42 Urine Opiates Scre en Ur Barbiturates Sc reen Ur Phencyclidine S crn Ur Amphetamines Sc reen U Benzodiazepines Scrn Urine Cocaine Scre en U Marijuana (THC) Screen Ethyl Alcohol Coronavirus 229E ( PCR) Not detected SARS-CoV-2 (PCR) Not detected 09/04/21 09/04/21 09/04/21 11:11 11:11 09:10 WBC RBC Hgb Hct MCV MCH MCHC RDW Plt Count MPV Neut % (Auto) Lymph % (Auto) [place] % (Auto) Eos % (Auto) Baso % (Auto) Neut # (Auto) Lymph # (Auto) [place] # (Auto) Eos # (Auto) Baso # (Auto) Nucleated RBC % (a uto) Nucleated RBCs # Sodium 135 L Potassium 2.9 L Chloride 92 L Carbon Dioxide 29 Anion Gap 16.9 BUN 18 Creatinine 1.2 H GFR Calculation 47.0 L Glucose 112 Calculated Osmolal ity 283 L Lactic Acid Calcium 8.0 L Phosphorus Magnesium Total Bilirubin AST ALT Alkaline Phosphata se Total Protein Albumin Globulin TSH Urine Opiates Scre en Negative Ur Barbiturates Sc reen Negative Ur Phencyclidine S crn Negative Ur Amphetamines Sc reen Negative U Benzodiazepines Scrn Positive H Urine Cocaine Scre en Negative U Marijuana (THC) Screen Positive H Ethyl Alcohol < 10 Coronavirus 229E ( PCR) SARS-CoV-2 (PCR) Vitals: Last Vital Signs Temp 98.1 F 09/05/21 07:24 Pulse 84 09/05/21 07:24 Resp 16 09/05/21 07:24 BP 146/81 09/05/21 07:24 Pulse Ox 94 09/05/21 07:24 Discharge Plan Discharge Patient Disposition: Home Condition: Stable Prescriptions: Continued multivitamin [Daily Multi-Vitamin] Tablet 1 tab PO DAILY RF: 0 Cymbalta 60 mg capsule,delayed release(DR/EC) 60 mg PO BID Qty: 60 RF: 0 Skyrizi 150 mg/mL pen injector 150 mg SUBCUT .EVERY 12 WEEKS Qty: 1 RF: 3 promethazine [Promethegan] 25 mg suppository 25 mg [place] Q4H PRN (Reason: Nausea And Vomiting) RF: 0 baclofen 20 mg Tablet 20 mg PO TID PRN (Reason: Muscle Spasm) RF: 0 pregabalin 100 mg capsule 100 mg PO BID RF: 0 albuterol sulfate [Ventolin HFA] 90 mcg/actuation Hfa Aerosol Inhaler 1 - 2 puff INHALATION QID PRN (Reason: Shortness Of Breath) RF: 0 metoclopramide HCl [Reglan] 10 mg tablet 10 mg PO Q6H PRN (Reason: nausea and vomiting) Qty: 20 RF: 0 ibuprofen 800 mg tablet 800 mg PO TID PRN (Reason: Pain) RF: 0 amlodipine 2.5 mg tablet 2.5 mg PO DAILY RF: 0 pantoprazole 40 mg tablet,delayed release (DR/EC) 40 mg PO BID RF: 0 lisinopril-hydrochlorothiazide 20-25 mg tablet 1 tab PO DAILY RF: 0 ondansetron 4 mg tablet,disintegrating 4 mg PO Q8H PRN (Reason: Nausea And Vomiting) RF: 0 sucralfate 1 gram tablet See Rx Instructions .ROUTE .COMPLEX RF: 0 ketoconazole 2 % shampoo 1 applic topical .ONCE WEEKLY RF: 0 Naprosyn 500 mg tablet 500 mg PO BID RF: 0 Vitamin C 500 mg Tablet 500 mg PO DAILY RF: 0 No Action (DME) thumb spica splint Qty: 1 RF: 0 Discharge Orders: Discharge Order (Routine); Ordered 09/05/21 Ordered By: Celia Mcgee Referrals: Tom Dan NP [Primary Care Provider] - 09/20/21 10:30 am Discharge Diet: Advance as tolerated Discharge Activity: Resume usual activity Patient Instructions: Hypokalemia (GEN), Acute Nausea and Vomiting (GEN), Opioid Safety Discharge Attestations Time Spent in Discharge Care*: less than 30 min Quality Metrics Clinical Quality Measures During this hospital stay, did patient experience: None Coding Level of Care Code Acute Chg FW DC note Diagnoses Hypokalemia E87.6 Acute kidney injury N17.9 Major depressive disorder, recurrent, in partial remission F33.41 Hyperemesis R11.10 Marijuana abuse F12.10
[2021-09-05 11:41] VITALS: BP 147/79; PULSE 88; RESP 16; TEMP 36.9; O2SAT 96
[2021-09-05] MEDS: phosphorus 250 mg Tablet PO (11:42)
[2021-09-05 15:29] VITALS: BP 147/79; PULSE 88; RESP 16; TEMP 36.9; O2SAT 96
== END 2021-09-05 15:30 | disposition home or self-care (01) ==
LOC: ER 06:37 → MEDSURG 20:55
PROVIDERS: Admitting Provider Internal Medicine; Emergency Provider Family Medicine; PCP Nurse Practitioner Family; Visit Provider Internal Medicine
DX: E87.6 Hypokalemia (principal); N17.9 Acute kidney failure, unspecified; F33.41 Major depressive disorder, recurrent, in partial remission; F11.10 Opioid abuse, uncomplicated; F12.10 Cannabis abuse, uncomplicated; F41.9 Anxiety disorder, unspecified; I10 Essential (primary) hypertension; F17.210 Nicotine dependence, cigarettes, uncomplicated
CPT/HCPCS: 36415; 74177; 80048; 80053; 80306; 80307; 81001; 83605; 83735; 84100; 84443; 85025; 87040; 87635; 93005; 96365; 96366; 96375; 96376; 99285; C9113; G0378; J0360; J1630; J2060; J3480; J7030; Q9967

== ENCOUNTER → 2021-09-18 08:22 | Outpatient (BNVA) | payer MEDICARE, MEDICAID, SELFPAY | PROVIDERS: PCP Nurse Practitioner Family; Visit Provider Surgery | DX: Z11.52 Encounter for screening for COVID-19 (principal) | CPT/HCPCS: 87635 ==

== ENCOUNTER → 2021-09-20 10:40 | Outpatient (BNVA) | payer MEDICARE, MEDICAID, SELFPAY | PROVIDERS: PCP Nurse Practitioner Family; Visit Provider Surgery | DX: Z20.822 Contact with and (suspected) exposure to COVID-19 (principal) | CPT/HCPCS: 87635 ==

== ENCOUNTER 2021-09-21 07:26 | Day surgery (SDC) | payer MEDICARE, MEDICAID, SELFPAY ==
[2021-09-19 12:29] VITALS: BMI 25.8
--- NOTE | 2021-09-21 07:46 | P.HP_ITS ---
Same Day Surgery H&P Indication for Procedure/HPI DATE OF PROCEDURE: September 21, 2021 CHIEF COMPLAINT/INDICATIONFOR SURGICAL PROCEDURE: colon polyps PREOP DIAGNOSIS: History of colon polyps PLANNED PROCEDURE: Operation Date: 09/21/21 09:00 Proposed Procedures p Colonoscopy 57107 Z86.010(Not Applicable) - Lavell Tejeda MD 08-03-21 this is a pleasant 51 years old female patient status post recent hospitalization for intractable nausea and vomiting and I was consulted to evaluate the patient at that time 07/13/2021 and subsequently patient undergone a diagnostic EGD by me on 07/14/2021 that showed; gastritis and duodenitis. The patient today is referred to my practice for further evaluation and consideration for surveillance colonoscopy as she does have history of polyps and last colonoscopy was about 20 years ago. No evidence of history of colon cancer. No bleeding per rectum. Interim history September 21, 2021 Patient comes today for surveillance colonoscopy ROS All systems have been reviewed negative except as per the above or per problem list Medications/Allergies* Home Medications Medication Instructions Recorded Confirmed Type multivitamin 1 tab PO DAILY 04/20/20 09/19/21 History albuterol sulfate [Ventolin HFA] 1 - 2 puff INHALATION QID PRN 07/13/21 09/19/21 History baclofen 20 mg PO TID PRN 07/13/21 09/19/21 History pregabalin 100 mg PO BID 07/13/21 09/19/21 History promethazine [Promethegan] 25 mg [place] Q4H PRN 07/13/21 09/19/21 History amlodipine 2.5 mg PO DAILY 09/04/21 09/19/21 History ascorbic acid (vitamin C) [Vitamin 500 mg PO DAILY 09/04/21 09/19/21 History C] ibuprofen 800 mg PO TID PRN 09/04/21 09/19/21 History ketoconazole 1 applic TOPICAL .ONCE WEEKLY 09/04/21 09/19/21 History lisinopril-hydrochlorothiazide 1 tab PO DAILY 09/04/21 09/19/21 History naproxen [Naprosyn] 500 mg PO BID 09/04/21 09/19/21 History ondansetron 4 mg PO Q8H PRN 09/04/21 09/19/21 History pantoprazole 40 mg PO BID 09/04/21 09/19/21 History sucralfate See Rx Instructions .ROUTE .COMPLEX 09/04/21 09/19/21 History calcium carbonate-vitamin D3 1 tab PO DAILY 09/19/21 09/19/21 History [Vitamin D3 (with calcium carb)] Allergies/Adverse Reactions Allergy/AdvReac Type Severity Reaction Status Date / Time adhesive tape Allergy Intermediate rash, red Verified 09/21/21 07:47 codeine Allergy ALGY-Anaphy Verified 09/21/21 07:47 laxis paroxetine [From Paxil] Allergy Unconscious Verified 09/21/21 07:47 Pertinent History/Comorbid Conditions* Medical History (Updated 09/07/21 @ 07:14 by Lc Carreno DO) Anxiety Cannabis dependence, uncomplicated High risk medication use Hypertension Major depressive disorder, recurrent, in partial remission Plaque psoriasis Post-traumatic stress disorder, chronic Psoriatic arthritis Social History Smoking and tobacco status: current some day smoker (on patches sometimes 1 to 3 a day) cigarettes Packs smoked per day: 1 Smoking risk assessment/counseling performed?: Yes Tobacco counseling given: counseling >3 minutes Pertinent Exam Findings alert, oriented x 3 and procedure specific exam findings (Abdominal examination nontender nondistended soft) Recommendations Surgery/Procedure today (Surveillance colonoscopy) Other Plans: Plan of care; After thorough history and physical examination and reviewing the chart, plan to perform surveillance colonoscopy. I discussed with the patient in details the risks,benefits,alternatives and indications.The risk of aspiration, bleeding, soft tissue injury, perforation of the colon and other potential concomitant complications were explained to the patient in details,also the potential need for Laproscoy/Laparotomy to repair any related complications including but not limited to colectomy and or Closotomy.The patient understood this well and did agree to proceed. Rationale was carefully and clearly discussed with the patient.Appropriate informed consent have been reviewed and signed All questions have been answered and all concerns have been addressed to patient's satisfaction. Verbal and written Instructions were given to the patient for colonoscopy prep Coding Level of Care Code Acute Correctional Treatment Specialist for 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
--- NOTE | 2021-09-21 08:25 | ANES.PREANE2 ---
Pre-Anesthetic Assessment Pre-Anesthetic Assessment: Height/Weight: Height 1.68 m Weight 72.575 kg Preop Diagnosis: History of colon polyps Proposed Procedure: Operation Date: 09/21/21 09:00 Proposed Procedures p Colonoscopy 11046 Z86.010(Not Applicable) - Lavell Tejeda MD Familial anesthetic complications: None Was Beta Sanjuanita taken within 24 hours: N/A Was Clonidine taken within 24 hours: N/A Last intake: none Social: Social History: Tobacco and No alcohol Exam: Pre-Anes Outpt Exam: alert, oriented x 3, clear to auscultation bilaterally and regular rate & rhythm Airway: MP: 2 Dentition: False CV/HEM: CV/HEM: Arrythmia (skipped beats) Anesthetic Plan: ASA status: 2 Anesthesia: MAC Risk of > 500 ml blood loss (7ml/kg in children): No PFSH Anesthesia PFSH: Medical History Anxiety Cannabis dependence, uncomplicated High risk medication use Hypertension Major depressive disorder, recurrent, in partial remission Plaque psoriasis Post-traumatic stress disorder, chronic Psoriatic arthritis Social History Smoking and tobacco status: current some day smoker (on patches sometimes 1 to 3 a day) cigarettes Packs smoked per day: 1 Smoking risk assessment/counseling performed?: Yes Tobacco counseling given: counseling >3 minutes Data Anesthesia Cardiac Studies: No Data to Display
[2021-09-21 08:41] VITALS: BP 124/91; PULSE 92; RESP 18; TEMP 36.4; O2SAT 100
[2021-09-21] MEDS: sodium chloride 0.9% 1,000 ML 30 ML IV (08:45)
[2021-09-21 09:32] VITALS: BP 80/48; PULSE 88; RESP 12; TEMP 36.1; O2SAT 96
--- NOTE | 2021-09-21 09:48 | ANE.PACU2 ---
Inpatient post-anesthesia follow up: Airway intact: Yes Vital signs: Temperature 97 F Pulse Rate 88 Respiratory Rate 12 Blood Pressure 80/48 Pulse Oximetry 96 Oxygen Delivery Me thod Room Air Oxygen Flow Rate Fraction of Inspir ed Oxygen Hydration adequate: Yes Nausea and vomiting: No Pain level: 1 Mental status: Baseline
[2021-09-21 09:49] VITALS: BP 99/71; PULSE 81; RESP 16; O2SAT 97
--- NOTE | 2021-09-21 16:22 | ANE.PACU2 ---
Inpatient post-anesthesia follow up: Airway intact: Yes Vital signs: Temperature 97 F Pulse Rate 81 Respiratory Rate 16 Blood Pressure 99/71 Pulse Oximetry 97 Oxygen Delivery Me thod Room Air Oxygen Flow Rate Fraction of Inspir ed Oxygen Hydration adequate: Yes Nausea and vomiting: No Pain level: 2 Mental status: Baseline
== END 2021-09-21 09:56 | disposition home or self-care (01) ==
PROVIDERS: PCP Nurse Practitioner Family; Visit Provider Surgery
PROC: 0DJD8ZZ Inspection of Lower Intestinal Tract, Via Natural or Artificial Opening Endoscopic (ICD-10-PCS; CPT 45378; principal; 2021-09-21 09:00)
DX: Z12.11 Encounter for screening for malignant neoplasm of colon (principal); Z86.010 Personal history of colon polyps; D12.0 Benign neoplasm of cecum; D12.5 Benign neoplasm of sigmoid colon; F41.9 Anxiety disorder, unspecified; Z79.899 Other long term (current) drug therapy; I10 Essential (primary) hypertension; F33.9 Major depressive disorder, recurrent, unspecified; F17.210 Nicotine dependence, cigarettes, uncomplicated
CPT/HCPCS: 45385; 88305; J2704; J7030

== ENCOUNTER → 2021-09-25 08:09 | Outpatient (BNVA) | payer MEDICARE, MEDICAID, SELFPAY | PROVIDERS: PCP Nurse Practitioner Family; Referring Provider Nurse Practitioner Family; Visit Provider Specialist | DX: M25.511 Pain in right shoulder (principal) | CPT/HCPCS: 73030 ==

== ENCOUNTER 2021-10-29 20:18 | Observation (INO) | payer MEDICARE, MEDICAID, SELFPAY ==
[2021-10-29 20:22] VITALS: BP 111/95; PULSE 120; RESP 20; TEMP 37.9; O2SAT 97; BMI 25.8
--- NOTE | 2021-10-29 20:34 | ED_ITS ---
HPI - Chest Pain General: Chief Complaint: Chest Pain Stated Complaint: CP, Poss GI Bleed Time Seen by Provider: 10/29/21 20:23 [facility] ED PFSH: Medical History Anxiety Cannabis dependence, uncomplicated High risk medication use Hypertension Major depressive disorder, recurrent, in partial remission Plaque psoriasis Post-traumatic stress disorder, chronic Psoriatic arthritis Social History Smoking and tobacco status: current some day smoker (on patches sometimes 1 to 3 a day) cigarettes Packs smoked per day: 1 Smoking risk assessment/counseling performed?: Yes Tobacco counseling given: counseling >3 minutes Course Vital Signs: Vital signs: Vital Signs Temperature 100.2 F H 10/29/21 20:22 Pulse Rate 120 H 10/29/21 20:22 Respiratory Rate 20 H 10/29/21 20:22 Blood Pressure 111/95 10/29/21 20:22 Pulse Oximetry 97 10/29/21 20:22 Discharge Plan Discharge Condition: Stable Prescriptions: No Action multivitamin [Daily Multi-Vitamin] Tablet 1 tab PO DAILY 0RF Cymbalta 60 mg capsule,delayed release(DR/EC) 60 mg PO BID Qty: 60 0RF Skyrizi 150 mg/mL pen injector 150 mg SUBCUT .EVERY 12 WEEKS Qty: 1 3RF lisinopril-hydrochlorothiazide 20-25 mg tablet 0.5 tab PO DAILY Qty: 45 3RF metoprolol tartrate 25 mg tablet 25 mg PO BID Qty: 180 3RF promethazine [Promethegan] 25 mg suppository 25 mg RI Q4H PRN (Reason: Nausea And Vomiting) 0RF baclofen 20 mg Tablet 20 mg PO TID PRN (Reason: Muscle Spasm) 0RF pregabalin 100 mg capsule 100 mg PO BID 0RF albuterol sulfate [Ventolin HFA] 90 mcg/actuation Hfa Aerosol Inhaler 1 - 2 puff INHALATION QID PRN (Reason: Shortness Of Breath) 0RF calcium carbonate-vitamin D3 200 mg (500 mg) -400 unit Tablet 1 tab PO DAILY 0RF metoclopramide HCl [Reglan] 10 mg tablet 10 mg PO Q6H PRN (Reason: nausea and vomiting) Qty: 20 0RF ibuprofen 800 mg tablet 800 mg PO TID PRN (Reason: Pain) 0RF Hold Instructions: Resume on 09/27/21. amlodipine 2.5 mg tablet 2.5 mg PO DAILY 0RF pantoprazole 40 mg tablet,delayed release (DR/EC) 40 mg PO BID 0RF ondansetron 4 mg tablet,disintegrating 4 mg PO Q8H PRN (Reason: Nausea And Vomiting) 0RF sucralfate 1 gram tablet See Rx Instructions .ROUTE .COMPLEX 0RF Rx Instructions: one tab po before a meal and one tab at bedtime ketoconazole 2 % shampoo 1 applic topical .ONCE WEEKLY 0RF Rx Instructions: Lather into scalp 1 time weekly. Allow to sit on scalp for 5 minutes before rinsing. naproxen [Naprosyn] 500 mg tablet 500 mg PO BID 0RF Hold Instructions: Resume on 09/27/21. ascorbic acid (vitamin C) [Vitamin C] 500 mg Tablet 500 mg PO DAILY 0RF Referrals: Tom Dan NP [Primary Care Provider] - Coding Level of Care Code ED Clinical Team Lead for 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
--- NOTE | 2021-10-29 20:35 | ED_ITS ---
HPI - General Adult General: Chief complaint: Chest Pain Stated complaint: CP, Poss GI Bleed Time Seen by Provider: 10/29/21 20:23 History of Present Illness: Patient is a 51-year-old female with history of anxiety, chronic marijuana dependence presents emergency room with complaints of fever cough generalized weakness, chest pain and vomiting blood. Patient tells me that since yesterday, she has had 5 episodes of hematemesis of blood. In addition, patient also reports dark stools. 3 days ago, patient was in contact with Covid positive person. Since this morning, patient has had fatigue, cough and generalized weakness. Patient denies any recent antiplatelet or anticoagulant use. Patient denies any history of cirrhosis. Patient has had a recent colonoscopy 2 months ago which was negative for any malignancy. +Denies nausea/vomiting, diarrhea complaints or new vaginal discharge or bleeding. Onset:2 days of hematemesis and 1 day of fever/cough/generalized weakness Duration:ongoing Location:home Severity:moderate Associated symptoms: Reports dyspnea, malaise and nausea; Deny chest pain, rash, palpitations or vomiting Review of Systems Const: Reports: fever(s), chills, fatigue, malaise and other (+generalized weakness) Eyes: Denies: change in vision ENMT: Denies: mouth pain Card: Denies: chest pain or palpitations Resp: Reports: dyspnea and non-productive cough GI: Reports: abdominal pain, nausea and other (+melena); Denies: vomiting or diarrhea : Denies: dysuria Musc: Denies: extremity pain Skin/Breast: Denies: rash or new lesions Neuro: Denies: weakness in extremities Psych: Reports: other (Normal mood) Ba/Lymph: Denies: easy bruising PFSH ED PFSH: Medical History Anxiety Cannabis dependence, uncomplicated High risk medication use Hypertension Major depressive disorder, recurrent, in partial remission Plaque psoriasis Post-traumatic stress disorder, chronic Psoriatic arthritis Social History Smoking and tobacco status: current some day smoker (on patches sometimes 1 to 3 a day) cigarettes Packs smoked per day: 1 Smoking risk assessment/counseling performed?: Yes Tobacco counseling given: counseling >3 minutes Physical Exam Const: COMMON NORMALS: alert HENMT: COMMON NORMALS: atraumatic HEAD & SCALP: atraumatic MOUTH: moist mucous membranes not abnormal Eye: COMMON NORMALS: EOMs intact bilaterally and conjunctivae normal CONJUNCTIVA: Yes conjunctivae normal Neck/C-Spine: COMMON NORMALS: full ROM and supple Resp: COMMON NORMALS: normal respiratory effort and clear to auscultation b ilaterally AUSCULTATION: clear to auscultation bilaterally Cardio: COMMON NORMALS: regular rate RATE: regular rate GI: COMMON NORMALS: Soft to palpation PALPATION: Yes Soft to palpation OTHER: +mild mid-epigastric focal TTP. NO guarding rebound, guarding, rigidity. No CVA tenderness to percussion. Neg Alvarez/Neg McBurney's point tenderness, no suprabupic tenderness to palpation. Rectal exam: hemoocult negative stool Extremity: COMMON NORMALS: full ROM Neuro: SENSORIUM/ORIENTATION: Yes alert MOTOR EXAM: No Abnormal motor strength present and Other motor observations present (no focal motor deficits) Psych: COMMON NORMALS: speech normal SPEECH: Yes normal speech MOOD & AFFECT: Yes euthymic mood Course Vital Signs: Vital signs: Vital Signs Temperature 99.1 F 10/30/21 07:16 Pulse Rate 88 10/30/21 07:16 Respiratory Rate 20 H 10/30/21 10:07 Blood Pressure 118/86 10/30/21 07:16 Pulse Oximetry 96 10/30/21 10:07 [facility] - General Adult Medical Decision Making 51-year-old female with a history of chronic marijuana use, alcohol dependence presenting to the emergency room with complaints of chest pain, cough, fevers/chills, chest pain, dark stool and hemoptysis. On exam, patient is febr ile to 100.2 and tachycardic to the 110s. Rectal exam showed brown stool that is Hemoccult negative. Observed in the emergency room patient has not had any emesis with hematemesis. Hemoglobin of 14.8 consistent with baseline. Work-up showed white count of 15.9. + Influenza positive. It is unclear what is the source of patient's hematemesis or dark stool. Given reassuring H&H, stool culture negative. No active hematemesis. Reported of 210 initially with no prior baseline. EKG showed no ST elevations. Will trend troponin. Patient status post aspirin and heparin. I have discussed the risk of starting heparin given concerns for hematemesis with Dr Tripp. However, in the in abscence of hemoocult stool, reassuring H&H, and no hematemesis, will start anticoagulation given concern for NSTEMI. Disposition: admission Lab Data : 10/30/21 10:11 10/30/21 10:11 Radiology Impressions Chest X-Ray 10/29/21 23:20 IMPRESSION: No acute abnormality demonstrated. Laboratory Results WBC 15.9 10^3/uL (4.0-10.0) H 10/29/21 20:45 RBC 4.64 10^6/uL (4.1-5.3) 10/29/21 20:45 Hgb 14.8 g/dL (11.5-15.3) 10/29/21 20:45 Hct 40.9 % (37.0-47.0) 10/29/21 20:45 MCV 88.1 fl (81-99) 10/29/21 20:45 MCH 31.9 pg (28.0-34.0) 10/29/21 20:45 MCHC 36.2 g/dL (30.0-36.0) H 10/29/21 20:45 RDW 13.5 % (12.1-15.1) 10/29/21 20:45 Plt Count 398 10^3/cmm (130-400) 10/29/21 20:45 MPV 10.6 fL (7.4-10.4) H 10/29/21 20:45 Neut % (Auto) 87.2 % 10/29/21 20:45 Lymph % (Auto) 2.3 % 10/29/21 20:45 [place] % (Auto) 9.4 % 10/29/21 20:45 Eos % (Auto) 0.1 % 10/29/21 20:45 Baso % (Auto) 0.3 % 10/29/21 20:45 Neut # (Auto) 13.88 10^3/uL (1.8-7.7) H 10/29/21 20:45 Lymph # (Auto) 0.4 10^3/uL (0.8-4.8) L 10/29/21 20:45 [place] # (Auto) 1.5 10^3/uL (0.2-0.9) H 10/29/21 20:45 Eos # (Auto) 0.0 10^3/uL (0.0-0.8) 10/29/21 20:45 Baso # (Auto) 0.0 10^3/uL (0.0-0.1) 10/29/21 20:45 Nucleated RBC % (auto) 0 % 10/29/21 20:45 Nucleated RBCs # 0.0 /100WBC 10/29/21 20:45 PT 12.30 SECONDS (12.1-14.9) 10/29/21 20:45 INR 0.89 (0.8-1.2) 10/29/21 20:45 APTT 36.3 SECONDS (23.9-36.7) 10/29/21 20:45 Sodium 126 mmol/L (136-145) L 10/29/21 20:45 Potassium 3.5 mmol/L (3.5-5.1) 10/29/21 20:45 Chloride 77 mmol/L (98-107) L 10/29/21 20:45 Carbon Dioxide 28 mmol/L (22-29) 10/29/21 20:45 Anion Gap 24.5 (5-19) H 10/29/21 20:45 BUN 38 mg/dL (6-20) H 10/29/21 20:45 Creatinine 1.5 mg/dL (0.5-0.9) H 10/29/21 20:45 GFR Calculation 36.3 mL/min (90-130) L 10/29/21 20:45 Glucose 150 mg/dL (65-115) H 10/29/21 20:45 Calculated Osmolality 274 mOsm/kg (285-295) L 10/29/21 20:45 Calcium 9.7 mg/dL (8.5-10.5) 10/29/21 20:45 Total Bilirubin 0.8 mg/dL (0.15-1.2) 10/29/21 20:45 AST 91 U/L (0-32) H 10/29/21 20:45 ALT 36 U/L (0-33) H 10/29/21 20:45 Alkaline Phosphatase 128 IU/L (35-105) H 10/29/21 20:45 Troponin T Baseline 210 ng/L (0-10) H* 10/29/21 20:45 Total Protein 9.3 g/dL (6.6-8.7) H 10/29/21 20:45 Albumin 5.2 g/dL (3.5-5.2) 10/29/21 20:45 Globulin 4.1 g/dL (1.3-4.6) 10/29/21 20:45 Lipase 25 U/L (13-60) 10/29/21 20:45 Coronavirus 229E (PCR) Not detected (NOT DETECT) 10/29/21 20:30 Influenza Type A Ag Positive (Negative) H 10/29/21 20:30 Influenza Type B Ag Negative (Negative) 10/29/21 20:30 SARS-CoV-2 (PCR) Not detected (NOT DETECT) 10/29/21 20:30 Blood Type O Positive 10/29/21 20:45 Rho(D) Type Positive 10/29/21 20:45 Antibody Screen Negative 10/29/21 20:45 Discharge Plan Discharge Patient Disposition: Admitted As Inpatient Admit Provider: Haider Tripp Clinical Impression: Influenza, Chest pain, Chills with fever, Nausea & vomiting, Elevated troponin Condition: Stable Discharge Diet: Advance as tolerated Discharge Activity: Increase activity as tolerated Coding Level of Care Code ED Director Of Curriculum And Instruction for [place] Fwd Exam Comprehensive
[2021-10-29] MEDS: acetaminophen 500 mg Tablet 1000 MG PO (20:46)
[2021-10-29] MEDS: sodium chloride 0.9% 1,000 ML 999 ML IV (20:46)
[2021-10-29] MEDS: pantoprazole 40 mg SDV 80 MG IVP (20:46)
[2021-10-29 20:55] LABS: Basophils % 0.3 %; Eosinophils % 0.1 %; Hematocrit 40.9 % (37.0-47.0); Hemoglobin 14.8 g/dL (11.5-15.3); Lymphocytes # 0.4 10^3/uL (0.8-4.8); Lymphocytes % 2.3 %; Mean Corpuscular HGB Conc 36.2 g/dL (30.0-36.0); Mean Corpuscular Hemoglobin 31.9 pg (28.0-34.0); Mean Corpuscular Volume 88.1 fl (81-99); Mean Platelet Volume 10.6 fL (7.4-10.4); Monocytes # 1.5 10^3/uL (0.2-0.9); Monocytes % 9.4 %; Neutrophils # 13.88 10^3/uL (1.8-7.7); Neutrophils % 87.2 %; Nucleated Red Blood Cells % 0 %; Platelet Count 398 10^3/cmm (130-400); Red Blood Count 4.64 10^6/uL (4.1-5.3); Red Cell Distribution Width 13.5 % (12.1-15.1); White Blood Count 15.9 10^3/uL (4.0-10.0)
[2021-10-29 20:58] LABS: Influenza A by IFA Positive (Negative); Influenza B by IFA Negative (Negative)
[2021-10-29 21:07] LABS: INR 0.89 (0.8-1.2)
[2021-10-29 21:08] LABS: Partial Thromboplastin Time 36.3 SECONDS (23.9-36.7)
[2021-10-29 21:14] LABS: Alanine Aminotransferase 36 U/L (0-33); Albumin Level 5.2 g/dL (3.5-5.2); Alkaline Phosphatase 128 IU/L (35-105); Blood Urea Nitrogen 38 mg/dL (6-20); Calcium 9.7 mg/dL (8.5-10.5); Carbon Dioxide 28 mmol/L (22-29); Chloride 77 mmol/L (98-107); Globulin 4.1 g/dL (1.3-4.6); Glomerular Filtration Rate 36.3 mL/min (90-130); Glucose 150 mg/dL (65-115); Lipase 25 U/L (13-60); Osmolality Calculated 274 mOsm/kg (285-295); Sodium 126 mmol/L (136-145); Total Bilirubin 0.8 mg/dL (0.15-1.2); Total Protein 9.3 g/dL (6.6-8.7)
[2021-10-29 21:15] LABS: Anion Gap 24.5 (5-19); Aspartate Amino Transferase 91 U/L (0-32); Potassium 3.5 mmol/L (3.5-5.1)
[2021-10-29] MEDS: famotidine 20 mg/2 mL INJ 40 MG IVP (21:27)
[2021-10-29] MEDS: ondansetron 2 mg/ML SDV 2 mL 4 MG IVP (21:27)
[2021-10-29] MEDS: lidocaine 2% viscous 15 ML, aluminum-mag hydrox-simethicon 30 ML, sucralfate oral liq 1 GM PO (21:52)
[2021-10-29 22:25] VITALS: BP 111/95; PULSE 95; RESP 18; TEMP 36.9; O2SAT 96
--- NOTE | 2021-10-29 22:35 | ECG_ITS ---
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 Measurements Intervals [place] Rate: 88 P: 50 [place]: 127 QRS: 44 QRSD: 89 T: 52 QT: 430 QTc: 522 Interpretive Statements SINUS RHYTHM MODERATE ST DEPRESSION [0.05+ mV ST DEPRESSION] PROLONGED QT INTERVAL INTERPRETATION BASED ON A DEFAULT AGE OF 40 YEARS Compared to ECG 09/04/2021 12:18:26 ST (T wave) deviation now present Prolonged QT interval persists. sinus tachycardia no longer present T-wave abnormality no longer present Electronically Signed On 10-30-2021 17:03:23 BIODIESEL ENGINE SPECIALIST by Ramez Bustillos M.D. [id number]
[2021-10-29 23:08] LABS: Troponin(5th) Baseline 210 ng/L (0-10)
--- NOTE | 2021-10-29 23:10 | ECG_ITS ---
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 Measurements Intervals [place] Rate: 119 P: -22 AL: 74 QRS: 44 QRSD: 89 T: 56 QT: 403 QTc: 568 Interpretive Statements SINUS TACHYCARDIA WITH SHORT AL INTERVAL ST DEPRESSION, CONSIDER SUBENDOCARDIAL INJURY [0.1+ mV ST DEPRESSION] Compared to ECG 09/04/2021 12:18:26 Short [place] interval now present ST (T wave) deviation now present T-wave abnormality no longer present Prolonged QTC, consider electrolyte abnormalities, drug effect/ischemia Electronically Signed On 10-30-2021 17:02:37 ALCOHOL LAW ENFORCEMENT AGENT by Ramez Bustillos M.D. [email or web address]/[id number] f
[2021-10-29] MEDS: heparin 5,000 unit/mL INJ 1 mL 4000 UNIT IVP (23:18)
[2021-10-29] MEDS: aspirin 325 mg Tablet PO (23:19)
--- NOTE | 2021-10-29 23:20 | XRR_ITS ---
PROCEDURE INFORMATION: Exam: XR Chest Exam date and time: 10/29/2021 11:20 PM Age: 51 years old Clinical indication: Pain; Chest pressure; Additional info: Eval for chest pain TECHNIQUE: Imaging protocol: XR of the chest. Views: 1 view. COMPARISON: CR XR chest 1V portable [id number] 07/17/2021 10:11 AM FINDINGS: Tubes, catheters and devices: Monitor leads project over the chest. Lungs: No significant or acute findings. No consolidation. Pleural spaces: No significant costophrenic angle blunting. No pneumothorax. Heart/Mediastinum: Heart size is normal. Bones/joints: No acute osseous abnormality. Chronic right AC joint separation. XR/XR chest 1V portable [id number] IMPRESSION: No acute abnormality demonstrated.
--- NOTE | 2021-10-29 23:20 | PC.NURSE ---
Discussed with Dr. Snider about heparin order even though pt main complaint was lower GI bleeding and hematemesis. Dr. Snider states it is fine to go ahead with heparin order
[2021-10-29 23:56] VITALS: BMI 25.7
[2021-10-30] VITALS (15 sets, daily range): BP systolic 101–131; BP diastolic 72–94; PULSE 86–103; RESP 16–24; TEMP 36.5–37.3; O2SAT 92–96
[2021-10-30 00:11] LABS: Troponin 5 2HR Delta -43.6 ABS# (0-10)
[2021-10-30 00:12] LABS: Troponin 5 2HR 166.4 ng/L (0-10)
--- NOTE | 2021-10-30 00:40 | PM.HP ---
Providers/Chief Complaint Admitting Physician: Haider Tripp Primary Care Provider: Tom Dan NP Chief Complaint: CP History of Present Illness 51-year-old female with a past medical history significant for anxiety, depression was presenting to the hospital with a 3 day history of nausea and vomiting. Patient apparently had noted to the emergency room physician that she was having hematemesis. However when I last she stated that she was actually having dark tarry stools. Recently had a colonoscopy performed 2 months prior which did not show any evidence bleeding. Multiple polyps were biopsied.Denied respiratory distress, noted subjective fever and chills. Laboratory workup on arrival showed a WBC of 15.9, hemoglobin of 14.8, hematocrit of 40.9 and a platelet count of 398. INR 0.89. Sodium 126, potassium 3.5, chloride 77, bicarb 28, BUN 38 and creatinine of 1.5. AST of 91, ALT of 36 alkaline phosphatase of 128. Initial troponin of 210. A repeat of 166. Patient was found to have influenza A positive. Chest xray did not show any evidence of acute cardiopulmonary abnormality. Review of Systems General: Reports: 10 or more systems reviewed and unremarkable except in HPI and below Medications/Allergies Home Medications Medication Instructions Recorded Confirmed Last Taken Type duloxetine 60 mg capsule,delayed 60 mg PO BID #60 cap 02/15/20 10/13/21 09/20/21 Rx release (Cymbalta) multivitamin (Daily Multi-Vitamin) 1 tab PO DAILY 04/20/20 10/13/21 09/20/21 History albuterol sulfate 90 mcg/actuation 1 - 2 puff INHALATION QID PRN 07/13/21 10/13/21 2 Weeks Ago History aerosol inhaler (Ventolin HFA) ~09/07/21 baclofen 20 mg tablet 20 mg PO TID PRN 07/13/21 10/13/21 2 Weeks Ago History ~09/07/21 pregabalin 100 mg capsule 100 mg PO BID 07/13/21 10/13/21 09/20/21 History promethazine 25 mg rectal 25 mg SC Q4H PRN 07/13/21 10/13/21 3 Weeks Ago History suppository (Promethegan) ~08/31/21 metoclopramide HCl 10 mg tablet 10 mg PO Q6H PRN #20 tab 08/07/21 10/13/2122 Rx (Reglan) risankizumab-rzaa 150 mg/mL 150 mg SUBCUT .EVERY 12 WEEKS #1 ml 08/31/21 10/13/21 2 Weeks Ago Rx subcutaneous pen injector (Doreenyrizi) ~09/07/21 amlodipine 2.5 mg tablet 2.5 mg PO DAILY 09/04/21 10/13/21 09/20/21 History ascorbic acid (vitamin C) 500 mg 500 mg PO DAILY 09/04/21 10/13/21 09/20/21 History tablet (Vitamin C) ibuprofen 800 mg tablet 800 mg PO TID PRN 09/04/21 10/13/21 2 Weeks Ago History ~09/07/21 ketoconazole 2 % shampoo 1 applic TOPICAL .ONCE WEEKLY 09/04/21 10/13/21 2 Weeks Ago History ~09/07/21 naproxen 500 mg tablet (Naprosyn) 500 mg PO BID 09/04/21 10/13/21 2 Days Ago History ~09/19/21 ondansetron 4 mg disintegrating 4 mg PO Q8H PRN 09/04/21 10/13/21 3 Weeks Ago History tablet ~08/31/21 pantoprazole 40 mg tablet,delayed 40 mg PO BID 09/04/21 10/13/21 09/20/21 History release sucralfate 1 gram tablet See Rx Instructions .ROUTE .COMPLEX 09/04/21 10/13/21 Unknown History calcium carbonate 200 mg calcium 1 tab PO DAILY 09/19/21 10/13/21 09/20/21 History (500 mg)-vitamin D3 400 unit tablet lisinopril 20 0.5 tab PO DAILY #45 tab 10/24/21 Unknown Rx mg-hydrochlorothiazide 25 mg tablet metoprolol tartrate 25 mg tablet 25 mg PO BID #180 tab 10/24/21 Unknown Rx acetaminophen 500 mg tablet 500 mg PO Q6H PRN 5 Days #20 tab 10/29/21 Unknown Rx calcium carbonate 1,000 1 tab PO TID PRN 7 Days #21 tab 10/29/21 Unknown Rx mg-simethicone 60 mg chewable tablet (Maalox Advanced) famotidine 20 mg tablet (Pepcid) 20 mg PO BID PRN 10 Days #20 tab 10/29/21 Unknown Rx ondansetron HCl 4 mg tablet 4 mg PO TID PRN 4 Days #12 tab 10/29/21 Unknown Rx (Zofran) Allergies Allergy/AdvReac Type Severity Reaction Status Date / Time adhesive tape Allergy Intermediate rash, red Verified 10/13/21 16:57 codeine Allergy ALGY-Anaphy Verified 10/13/21 16:57 laxis paroxetine [From Paxil] Allergy Unconscious Verified 10/13/21 16:57 PFSH Acute PFSH: Medical History Anxiety Cannabis dependence, uncomplicated High risk medication use Hypertension Major depressive disorder, recurrent, in partial remission Plaque psoriasis Post-traumatic stress disorder, chronic Psoriatic arthritis Social History Smoking and tobacco status: current some day smoker (on patches sometimes 1 to 3 a day) cigarettes Packs smoked per day: 1 Smoking risk assessment/counseling performed?: Yes Tobacco counseling given: counseling >3 minutes Vitals/I&O/Wt Last Vital Signs Temp 97.7 F 10/30/21 04:07 Pulse 88 10/30/21 04:07 Resp 24 H 10/30/21 04:07 BP 101/72 10/30/21 04:07 Pulse Ox 92 10/30/21 04:07 10/29/21 10/29/21 10/30/21 14:59 22:59 06:59 Intake Total 1000 / 1000 113.3 / 1113.3 Balance 1000 / 1000 113.3 / 1113.3 Weight last 48 hrs Weight 72.484 kg Weight 72.575 kg Physical Exam Const: COMMON NORMALS: no acute distress and patient oriented x3 HENMT: COMMON NORMALS: normocephalic Chest: COMMONS NORMALS: normal inspection of the chest Resp: AUSCULTATION: clear to auscultation bilaterally GI: COMMON NORMALS: Normal to inspection, nondistended, normoactive bowel sounds present : COMMON NORMALS: Yes no CVA tenderness Extremity: COMMON NORMALS: normal to inspection Neuro: COMMON NORMALS: patient oriented x3, CN's II-XII intact bilaterally, moves all extremities and no focal motor deficits Data : 10/30/21 02:12 10/29/21 20:45 Micro: Microbiology 10/29/21 21:22 Blood Culture - Preliminary Blood SPECIMEN COLLECTED 10/29/21 20:45 Blood Culture - Preliminary Blood SPECIMEN COLLECTED A&P Assessment and plan (1) Influenza: Symptoms onset > 48 hr Will hold off on tamiflu Supportive management Status: Acute (2) GI bleed: Very inconsistent history Hgb WNL - Monitor h/h Protonix 80mg IVx 1 in ER Will continue 40 mg IV BID Will keep NPO for now IVF Recent colonoscopy 2 months prior No episode of hematemasis here Status: Acute (3) Acute kidney injury: Creatinine increased to 1.5 Repeat BMP in am NS at 75 Status: Acute (4) Elevated troponin: Was given aspirin 324 mg PO x1 in ER and started on heparin drip Delta negative >40 . No further chest pain Will stop heparin given her complaint of possible GI bleed ECHO in am Consider cardiology consult Status: Acute (5) Nausea & vomiting: Likely due to viral syndrome zofran prn IVF Status: Acute Plan Verify home meds and restart in am Attestations Medical Necessity Statement*: Anticipate less than 2 midnight stay Time Spent in Patient Care: Greater than 35 minutes Coding Level of Care Code Acute Fruit Harvest Worker for Petrona Fwd Diagnoses Influenza J11.1 GI bleed K92.2 Acute kidney injury N17.9 Elevated troponin R77.8 Nausea & vomiting R11.2
--- NOTE | 2021-10-30 01:10 | ECG_ITS ---
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 Measurements Intervals [place] Rate: 80 P: 23 PA: 119 QRS: 44 QRSD: 90 T: 55 QT: 518 QTc: 600 Interpretive Statements SINUS RHYTHM WITH SHORT [place] INTERVAL MODERATE ST DEPRESSION [0.05+ mV ST DEPRESSION] PROLONGED QT INTERVAL CRITICAL TEST RESULT Compared to ECG 09/04/2021 12:18:26 Short PA interval now present ST (T wave) deviation now present Prolonged QT interval now present Sinus tachycardia no longer present T-wave abnormality no longer present Electronically Signed On 10-30-2021 17:18:18 CITY ATTORNEY by Ramez Bustillos M.D. [id number]
[2021-10-30] MEDS: heparin drip 25,000 UNIT/500 ML PREMIX 21 UNIT IV (02:13)
[2021-10-30 02:51] LABS: Troponin 5 6HR 148.1 ng/L (0-10)
[2021-10-30 03:52] LABS: Basophils % 0.1 %; Hematocrit 39.1 % (37.0-47.0); Hemoglobin 13.9 g/dL (11.5-15.3); Lymphocytes # 0.6 10^3/uL (0.8-4.8); Lymphocytes % 5.9 %; Mean Corpuscular HGB Conc 35.5 g/dL (30.0-36.0); Mean Corpuscular Volume 90.1 fl (81-99); Mean Platelet Volume 11.6 fL (7.4-10.4); Monocytes # 1.2 10^3/uL (0.2-0.9); Monocytes % 11.2 %; Neutrophils # 8.41 10^3/uL (1.8-7.7); Neutrophils % 82.2 %; Nucleated Red Blood Cells % 0 %; Platelet Count 194 10^3/cmm (130-400); Red Blood Count 4.34 10^6/uL (4.1-5.3); Red Cell Distribution Width 13.8 % (12.1-15.1); White Blood Count 10.2 10^3/uL (4.0-10.0)
[2021-10-30] MEDS: ondansetron 2 mg/ML SDV 2 mL 4 MG IVP ×3 (04:06→20:16)
[2021-10-30 04:54] LABS: Adenovirus Not Detected (NOT DETECT); Chlamydia Pneumoniae Not Detected (NOT DETECT); Coronavirus 229E,HKU1,NL63,OC4 Not Detected (NOT DETECT); Human Metapneumovirus Not Detected (NOT DETECT); Human Rhinovirus/Enterovirus Not Detected (NOT DETECT); Influenza A Detected (NOT DETECT); Influenza A H1 Not Detected (NOT DETECT); Influenza A H1-2009 Not Detected (NOT DETECT); Influenza A H3 Detected (NOT DETECT); Influenza B Not Detected (NOT DETECT); Mycoplasma Pneumoniae Not Detected (NOT DETECT); Parainfluenza Virus Type 1 Not Detected (NOT DETECT); Parainfluenza Virus Type 2 Not Detected (NOT DETECT); Parainfluenza Virus Type 3 Not Detected (NOT DETECT); Parainfluenza Virus Type 4 Not Detected (NOT DETECT); Respiratory Syncytial Virus A Not Detected (NOT DETECT); Respiratory Syncytial Virus B Not Detected (NOT DETECT); SARS-COV-2 Not Detected (NOT DETECT)
[2021-10-30 04:57] LABS: Influenza A Detected (NOT DETECT); Influenza A H1 Not Detected (NOT DETECT); Influenza A H1-2009 Not Detected (NOT DETECT); Influenza A H3 Detected (NOT DETECT); Influenza B Not Detected (NOT DETECT); Results from Genmark
--- NOTE | 2021-10-30 05:10 | ECG_ITS ---
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 Measurements Intervals [place] Rate: 96 P: 55 [place]: 118 QRS: 55 QRSD: 102 T: 61 QT: 419 QTc: 530 Interpretive Statements SINUS RHYTHM WITH SHORT [place] INTERVAL POSSIBLE LEFT ATRIAL ENLARGEMENT [-0.1mV P-WAVE IN V1/V2] MODERATE ST DEPRESSION [0.05+ mV ST DEPRESSION] PROLONGED QT INTERVAL Compared to ECG 10/30/2021 00:38:56 No significant changes Electronically Signed On 10-30-2021 17:18:34 CLUB FORMER by Ramez Bustillos M.D. [id number]
--- NOTE | 2021-10-30 05:20 | USCV_ITS ---
Rachelle Mireles Age: 51 Gender: F : 1970 Exam Date: 10/30/2021 12:31 Ordering Phys: Haider Tripp MD Technologist: Romeo Lott Exam Location: [facility] [place] Indication: ELEVATED TROPONIN BP: 131 / 94 HR: 51 Rhythm: Sinus Technical Quality: Adequate MEASUREMENTS (Male / Female) Normal Values 2D ECHO LV Diastolic Diameter PLAX 4.3 cm 4.2 - 5.9 / 3.9 - 5.3 cm LV Systolic Diameter PLAX 2.1 cm IVS Diastolic Thickness 1.2 cm 0.6 - 1.0 / 0.6 - 0.9 cm IVS Systolic Thickness 1.8 cm LVPW Diastolic Thickness 1.3 cm 0.6 - 1.0 / 0.6 - 0.9 cm LVPW Systolic Thickness 2.1 cm LVOT Diameter 2.1 cm LV Ejection Fraction 2D Teich 64.7 % LV Ejection Fraction MOD 2C 70.4 % LV Ejection Fraction 2C AL 71.3 % LA Diameter 3.2 cm Aorta at Sinotubular Diameter 2.8 cm M-MODE Aortic Annulus Diameter 3.3 cm LA Ao Ratio MM 1.1 MV E Point Septal Separation 1.2 cm DOPPLER AV Peak Velocity 144.0 cm/s LVOT Peak Velocity 106.0 cm/s AV Area Cont Eq vti 2.7 cm squared AV Area Cont Eq pk 2.5 cm squared MV Area PHT 5.0 cm squared Mitral E to A Ratio 0.8 MV E' Velocity 63.0 cm/s TR Peak Velocity 119.0 cm/s TR Peak Gradient 5.7 mmHg TV Peak E Velocity 80.0 cm/s Right Atrial Pressure 3.0 mmHg Pulmonary Artery Systolic Pressu 8.7 mmHg PV Peak Velocity 118.0 cm/s FINDINGS Left Ventricle Normal left ventricular size, systolic function and mildly increased wall thickness, with no diagnostic regional wall motion abnormalities. Left ventricular ejection fraction is estimated at 70 %. Normal diastolic function. Right Ventricle Normal right ventricular size and systolic function. Right Atrium Normal right atrial size. Left Atrium Normal left atrial size. Mitral Valve Mildly thickened mitral valve. No mitral valve stenosis. Mild- moderate mitral valve regurgitation. Aortic Valve Structurally normal trileaflet aortic valve. No aortic valve stenosis. Trace aortic valve regurgitation. Tricuspid Valve Structurally normal tricuspid valve. No tricuspid valve stenosis. Trace tricuspid valve regurgitation. Pulmonic Valve Pulmonic valve not well visualized. No pulmonary valve stenosis. No pulmonary valve regurgitation. Pericardium No pericardial effusion. Aorta Normal-sized aortic root. CONCLUSIONS 1. Normal left ventricular size, systolic function and mildly increased wall thickness, with no diagnostic regional wall motion abnormalities. Left ventricular ejection fraction is estimated at 70 %. Normal diastolic function. 2. Mild-moderate mitral valve regurgitation. 3. When compared to previous echocardiogram dated 05/06/2018, mitral regurgitation seems to have worsened. Vida Wall MD (Electronically Signed) Final Date: 30 October 2021 15:17 S
[2021-10-30] MEDS: sodium chloride 0.9% 1,000 ML 75 ML IV ×2 (05:51→20:20)
[2021-10-30] MEDS: morphine 4 mg/mL SDV 1 mL 2 MG IVP ×3 (05:52→14:33)
[2021-10-30] MEDS: pantoprazole 40 mg SDV IVP ×2 (05:52→16:33)
[2021-10-30 09:21] LABS: Add Urine Microscopic? YES; Bilirubin Urine Neg (Negative); Blood Urine 3+ (Negative); Glucose Urine UA Norm (Normal); Ketones Urine 1+ (Negative); Leukocyte Esterase Urine Negative (Negative); Nitrate Urine Negative (Negative); Protein Urine 1+ (Negative); Urine Appearance Clear (CLEAR); Urine Color Yellow (Yellow); Urobilinogen Urine Norm (Negative); pH Urine 5 (5-7)
[2021-10-30 09:22] LABS: Add Urine Culture? No; Bacteria Urine 1+ /hpf; RBC Urine 0-4 /hpf (0-2); Squamous Epithelial Cell Urine 0-4 /hpf (0-5); WBC Urine RARE /hpf (0-5)
[2021-10-30 10:18] LABS: Hematocrit 38.9 % (37.0-47.0); Hemoglobin 13.1 g/dL (11.5-15.3)
[2021-10-30 10:33] LABS: Magnesium 1.7 mg/dL (1.7-2.3)
[2021-10-30 10:39] LABS: Potassium 2.9 mmol/L (3.5-5.1)
[2021-10-30] MEDS: magnesium sulfate premix 2 GM/50 ML PIGGYBACK IV (11:29)
[2021-10-30] MEDS: potassium chloride ER 20 mEq Tablet 40 MEQ PO (11:29)
[2021-10-30] MEDS: promethazine 25 mg Supp PR (13:12)
[2021-10-30] MEDS: sucralfate 1 gm Tablet PO ×2 (16:33→20:18)
--- NOTE | 2021-10-30 16:54 | P.PN_ITS ---
Subjective Subjective: Having epigastric pain, nausea, required multiple antiemetics today, pain on swallowing, pain on deep inspiration in her chest. Coughing. Generally feeling unwell. When asked about NSAIDs reports has been taking ibuprofen for about 6 months. States due to neuropathy. Requesting something stronger for pain stating 2 mg of morphine did not help. Vitals/I&O/Wt Last Vital Signs Temp 99.1 F 10/30/21 07:16 Pulse 86 10/30/21 15:33 Resp 18 10/30/21 15:33 BP 120/88 10/30/21 15:33 Pulse Ox 93 10/30/21 15:33 10/30/21 10/30/21 10/30/21 06:59 14:59 22:59 Intake Total 151.8 / 1151.8 50 / 50 Output Total 300 / 300 50 / 350 Balance 151.8 / 1151.8 -250 / -250 -50 / -300 Weight last 48 hrs Weight 72.484 kg Weight 72.575 kg Physical Exam Const: COMMON NORMALS: patient oriented x3 GENERAL APPEARANCE: not comfortable HENMT: COMMON NORMALS: oropharynx normal Neck/C-Spine: COMMON NORMALS: no JVD Resp: COMMON NORMALS: normal respiratory effort and clear to auscultation bilaterally AUSCULTATION: clear to auscultation bilaterally Cardio: COMMON NORMALS: no JVD, regular rhythm, S1 normal heart sound present, S2 normal heart sound present and No murmurs present (Cardio) RHYTHM: regular rhythm HEART SOUNDS: S1 normal heart sound present and S2 normal heart sound present GI: COMMON NORMALS: Normal to inspection, nondistended, normoactive bowel sounds present and Soft to palpation PALPATION: Yes Soft to palpation and Yes Tenderness to palpation present (GI) Extremity: COMMON NORMALS: no joint enlargement and no pedal edema Neuro: COMMON NORMALS: patient oriented x3 and moves all extremities Skin: COMMON NORMALS: no rashes or lesions noted GENERAL SKIN EXAM: no rashes or lesions noted Data : 10/30/21 16:38 10/30/21 10:11 Micro: Microbiology 10/29/21 21:22 Blood Culture - Preliminary Blood SPECIMEN COLLECTED 10/29/21 20:45 Blood Culture - Preliminary Blood SPECIMEN COLLECTED A&P Assessment and plan (1) Nausea & vomiting: Likely gastritis secondary to NSAIDs. Discussed with her to stop ibuprofen. No recurrence of vomiting so far. Possibly also due to viral syndrome. Continue PPI, sucralfate. zofran prn IVF Status: Acute (2) Acute kidney injury: Creatinine increased to 1.5 Repeat chemistry NS at 75 Status: Acute (3) Elevated troponin: Was given aspirin 324 mg PO x1 in ER and started on heparin drip these are stopped for now due to hematemesis. Echocardiogram ordered. Follow-up. Status: Acute (4) GI bleed: History recurrent vomiting in the past. Stop ibuprofen. Hemoglobin 13 today. Recheck in the morning. Continue PPI, sucralfate. Trial of clear liquids Recent colonoscopy 2 months prior No episode of hematemasis here Status: Acute (5) Influenza: Influenza A. Continue supportive care. Isolation. Status: Acute Attestations Medical Necessity Statement*: Continue admission for assessment and management after hematemesis, possible NSTEMI, persistent nausea, epigastric pain, acute kidney injury, influenza. Coding Level of Care Code Acute Spray Foam Installer for 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 Diagnoses Influenza J11.1 GI bleed K92.2 Acute kidney injury N17.9 Elevated troponin R77.8 Nausea & vomiting R11.2
[2021-10-30 17:00] LABS: Hematocrit 38.3 % (37.0-47.0)
[2021-10-30 18:38] LABS: Potassium 2.7 mmol/L (3.5-5.1)
[2021-10-30] MEDS: morphine 4 mg/mL SDV 1 mL IVP ×2 (18:52→22:41)
[2021-10-30] MEDS: potassium chloride ER 20 mEq Tablet 80 MEQ PO (18:53)
[2021-10-30] MEDS: pregabalin 50 mg Capsule PO (20:18)
[2021-10-30] MEDS: duloxetine 60 mg Capsule PO (20:19)
[2021-10-30 22:38] LABS: Hemoglobin 12.2 g/dL (11.5-15.3)
[2021-10-30] MEDS: acetaminophen 325 mg Tablet 650 MG PO (22:40)
[2021-10-31] VITALS (16 sets, daily range): BP systolic 111–141; BP diastolic 73–112; PULSE 66–92; RESP 13–21; TEMP 36.6–37; O2SAT 94–96
[2021-10-31] MEDS: morphine 4 mg/mL SDV 1 mL IVP ×6 (02:42→22:51)
[2021-10-31 03:37] LABS: Basophils % 0.2 %; Eosinophils % 0.2 %; Hematocrit 35.6 % (37.0-47.0); Hemoglobin 11.9 g/dL (11.5-15.3); Lymphocytes # 0.9 10^3/uL (0.8-4.8); Lymphocytes % 15.1 %; Mean Corpuscular HGB Conc 33.4 g/dL (30.0-36.0); Mean Corpuscular Hemoglobin 31.9 pg (28.0-34.0); Mean Corpuscular Volume 95.4 fl (81-99); Mean Platelet Volume 10.7 fL (7.4-10.4); Monocytes # 0.7 10^3/uL (0.2-0.9); Monocytes % 11.9 %; Neutrophils % 72.3 %; Nucleated Red Blood Cells % 0 %; Platelet Count 249 10^3/cmm (130-400); Red Blood Count 3.73 10^6/uL (4.1-5.3); Red Cell Distribution Width 14.2 % (12.1-15.1); White Blood Count 5.8 10^3/uL (4.0-10.0)
[2021-10-31] MEDS: pantoprazole 40 mg SDV IVP ×2 (03:59→16:38)
[2021-10-31 04:12] LABS: Alanine Aminotransferase 31 U/L (0-33); Albumin Level 3.7 g/dL (3.5-5.2); Alkaline Phosphatase 86 IU/L (35-105); Anion Gap 12.6 (5-19); Aspartate Amino Transferase 64 U/L (0-32); Blood Urea Nitrogen 16 mg/dL (6-20); Calcium 8.5 mg/dL (8.5-10.5); Carbon Dioxide 26 mmol/L (22-29); Chloride 95 mmol/L (98-107); Globulin 2.8 g/dL (1.3-4.6); Glomerular Filtration Rate 65.5 mL/min (90-130); Glucose 131 mg/dL (65-115); Magnesium 2.3 mg/dL (1.7-2.3); Osmolality Calculated 273 mOsm/kg (285-295); Potassium 3.6 mmol/L (3.5-5.1); Sodium 130 mmol/L (136-145); Total Bilirubin 0.3 mg/dL (0.15-1.2); Total Protein 6.5 g/dL (6.6-8.7)
[2021-10-31 04:13] LABS: Procalcitonin 0.11 ng/mL (0-0.5)
--- NOTE | 2021-10-31 05:50 | PC.NURSE ---
pt rested quietly throughout shift. VSS. PRN pain med given. pt up to bedside commode independently. adequate UOP. hourly rounding done. all needs met.
[2021-10-31] MEDS: sucralfate 1 gm Tablet PO ×4 (06:45→21:03)
[2021-10-31] MEDS: duloxetine 60 mg Capsule PO ×2 (08:56→21:03)
[2021-10-31] MEDS: pregabalin 50 mg Capsule PO ×2 (08:56→21:03)
[2021-10-31] MEDS: sodium chloride 0.9% 1,000 ML 75 ML IV (09:47)
--- NOTE | 2021-10-31 10:18 | PC.NURSE ---
Patient took a shower at approximately 0830, and patient also received a bed change as well, patient was very happy and pleased.
--- NOTE | 2021-10-31 12:26 | PC.NURSE ---
Was only able to eat fruit and liquids, requesting a soft diet, throat too sore for main entree.
[2021-10-31] MEDS: ondansetron 2 mg/ML SDV 2 mL 4 MG IVP ×2 (14:03→22:51)
--- NOTE | 2021-10-31 16:19 | P.PN_ITS ---
Subjective Subjective: She is feeling slightly better. Some improvement in epigastric pain. Some improvement in pleuritic discomfort. Feels slightly stronger and more energetic. Vitals/I&O/Wt Last Vital Signs Temp 97.8 F 10/31/21 11:03 Pulse 92 10/31/21 14:00 Resp 20 H 10/31/21 14:49 BP 135/96 10/31/21 11:03 Pulse Ox 96 10/31/21 11:03 10/31/21 10/31/21 10/31/21 06:59 14:59 22:59 Intake Total 590 / 2500 2000 / 2000 Output Total 1000 / 1650 700 / 700 Balance -410 / 850 1300 / 1300 Weight last 48 hrs Weight 72.484 kg Weight 72.575 kg Physical Exam Const: COMMON NORMALS: patient oriented x3 HENMT: COMMON NORMALS: oropharynx normal Neck/C-Spine: COMMON NORMALS: no JVD Resp: COMMON NORMALS: normal respiratory effort and clear to auscultation bilaterally AUSCULTATION: clear to auscultation bilaterally Cardio: COMMON NORMALS: no JVD, regular rhythm, S1 normal heart sound present, S2 normal heart sound present and No murmurs present (Cardio) RHYTHM: regular rhythm HEART SOUNDS: S1 normal heart sound present and S2 normal heart sound present GI: COMMON NORMALS: Normal to inspection, nondistended, normoactive bowel sounds present and Soft to palpation PALPATION: Yes Soft to palpation and Yes Tenderness to palpation present (GI) Extremity: COMMON NORMALS: no joint enlargement and no pedal edema Neuro: COMMON NORMALS: patient oriented x3 and moves all extremities Skin: COMMON NORMALS: no rashes or lesions noted GENERAL SKIN EXAM: no rashes or lesions noted Data : 10/31/21 03:28 10/31/21 03:28 Micro: Microbiology 10/29/21 21:22 Blood Culture - Preliminary Blood NEGATIVE TO DATE 10/29/21 20:45 Blood Culture - Preliminary Blood NEGATIVE TO DATE A&P Assessment and plan (1) Nausea & vomiting: With improvement. Requested advancement of diet. Will trial. Continue PPI, sucralfate. Zofran as needed. De-escalate IVF. Likely gastritis secondary to NSAIDs. Discussed with her to stop ibuprofen. No recurrence of vomiting so far. Possibly also due to viral syndrome. Status: Acute (2) Acute kidney injury: Improved. Stop IVF. Trial of advancement of diet. Discontinue NSAIDs. Status: Acute (3) Elevated troponin: Was given aspirin 324 mg PO x1 in ER and started on heparin drip these are stopped for now due to hematemesis. Echocardiogram without regional wall motion normality. Chest discomfort is atypical with epigastric pain, pleuritic discomfort in the setting of GERD, NSAID induced gastritis, influenza. With risk of CAD and troponin elevation will additionally assess with stress sharon prior to discharge as we discussed. Status: Acute (4) GI bleed: History recurrent vomiting in the past. Stop ibuprofen. Hemoglobin down to 11.9, but discontinuing IV fluids with possibly dilutional component Recheck in the morning. Continue PPI, sucralfate. Trial of advancement of diet Recent colonoscopy 2 months prior No episode of hematemasis here Status: Acute (5) Influenza: Influenza A. Continue supportive care. Isolation. Status: Acute Attestations Medical Necessity Statement*: Continue admission for assessment management for possible cardiac ischemia in the setting of elevated troponin, cardiac risk. Coding Level of Care Code Acute Urban Redevelopment Specialist for 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 Diagnoses Nausea & vomiting R11.2 Acute kidney injury N17.9 Elevated troponin R77.8 GI bleed K92.2 Influenza J11.1
[2021-10-31] MEDS: amlodipine 5 mg Tablet 2.5 MG PO (16:39)
[2021-10-31] MEDS: metoprolol tartrate 25 mg Tablet PO (21:03)
[2021-11-01] VITALS (15 sets, daily range): BP systolic 127–152; BP diastolic 91–121; PULSE 62–86; RESP 13–26; TEMP 37–37.1; O2SAT 95–98
[2021-11-01] MEDS: morphine 4 mg/mL SDV 1 mL IVP ×2 (03:45→09:20)
[2021-11-01] MEDS: pantoprazole 40 mg SDV IVP (03:45)
[2021-11-01 04:02] LABS: Basophils % 0.6 %; Eosinophils # 0.1 10^3/uL (0.0-0.8); Eosinophils % 1.5 %; Hematocrit 35.9 % (37.0-47.0); Hemoglobin 11.7 g/dL (11.5-15.3); Lymphocytes # 1.6 10^3/uL (0.8-4.8); Lymphocytes % 33.3 %; Mean Corpuscular HGB Conc 32.6 g/dL (30.0-36.0); Mean Corpuscular Hemoglobin 31.3 pg (28.0-34.0); Mean Platelet Volume 10.6 fL (7.4-10.4); Monocytes # 0.6 10^3/uL (0.2-0.9); Monocytes % 12.2 %; Neutrophils # 2.47 10^3/uL (1.8-7.7); Neutrophils % 52.2 %; Nucleated Red Blood Cells % 0 %; Platelet Count 230 10^3/cmm (130-400); Red Blood Count 3.74 10^6/uL (4.1-5.3); Red Cell Distribution Width 13.9 % (12.1-15.1); White Blood Count 4.7 10^3/uL (4.0-10.0)
[2021-11-01 04:34] LABS: Alanine Aminotransferase 32 U/L (0-33); Albumin Level 3.9 g/dL (3.5-5.2); Alkaline Phosphatase 87 IU/L (35-105); Anion Gap 16.2 (5-19); Aspartate Amino Transferase 49 U/L (0-32); Blood Urea Nitrogen 8 mg/dL (6-20); Carbon Dioxide 25 mmol/L (22-29); Chloride 100 mmol/L (98-107); Globulin 2.7 g/dL (1.3-4.6); Glomerular Filtration Rate 87.5 mL/min (90-130); Glucose 101 mg/dL (65-115); Osmolality Calculated 282 mOsm/kg (285-295); Potassium 4.2 mmol/L (3.5-5.1); Sodium 137 mmol/L (136-145); Total Bilirubin 0.2 mg/dL (0.15-1.2); Total Protein 6.6 g/dL (6.6-8.7)
--- NOTE | 2021-11-01 05:37 | PC.NURSE ---
pt rested quietly throughout shift. VSS. prn pain med given. pt up to bedside commode independently. adequate UOP. pt repositioned self frequently. frequent rounding done. all needs met.
--- NOTE | 2021-11-01 07:15 | PC.NURSE ---
Patient left floor for stress test
--- NOTE | 2021-11-01 08:00 | ECG_ITS ---
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 Interpretive Statements NAME OF STUDY: LEXISCAN SESTAMIBI STRESS TEST INDICATION: Elevated Troponin PROCEDURE: At the baseline, the blood pressure was 132/97 mmHg, oxygen saturation 93% with a heart rate of 71 bpm. The electrocardiogram showed normal sinus rhythm, normal axis with normal ST and T's. The Lexiscan was infused over a period of 20 seconds. A total of 0.4 milligrams of Lexiscan was infused. The stress phase was continued for a total of 5 minutes. Heart rate at the end of the stress phase was 88 bpm, oxygen saturation 94% with a blood pressure of 139/94 mmHg. The EKG at the peak infusion revealed sinus rhythm with no significant ST-T wave changes. The study was terminated to protocol completion. Sestamibi was injected 20 seconds after the Lexiscan infusion. Blood pressure at the end of the recovery phase was 132/94 mmHg, oxygen saturation 92% with a heart rate of 78 beats per minute. CONCLUSION: 1. Normal EKG response to LexiScan infusion. 2. No LexiScan induced chest pain or cardiac arrhythmia. 3. Normal blood pressure and heart rate response. 4. Sestamibi/sestamibi perfusion scan pending; see separate report. Electronically Signed On 11-01-2021 12:30:08 SENIOR LINUX UNIX ENGINEER by Vida Wall M.D. [id number]
[2021-11-01] MEDS: ondansetron 2 mg/ML SDV 2 mL 4 MG IVP (08:06)
[2021-11-01] MEDS: regadenoson 0.4 Mg/5 ml Syringe IVP (08:06)
--- NOTE | 2021-11-01 09:15 | PC.NURSE ---
Patient back from stress test. Resting in bed. VS are stable. Patient having pain 9/10 in lower back that is chronic. 4mg Morphine was given. Nurse will reassess pain.
[2021-11-01] MEDS: pregabalin 50 mg Capsule PO (09:19)
[2021-11-01] MEDS: duloxetine 60 mg Capsule PO (09:20)
[2021-11-01] MEDS: metoprolol tartrate 25 mg Tablet PO (09:20)
[2021-11-01] MEDS: amlodipine 5 mg Tablet 2.5 MG PO (09:20)
--- NOTE | 2021-11-01 09:50 | PC.NURSE ---
Pain was re-assessed and patient reports I have no pain at all, it all went away.
[2021-11-01] MEDS: sucralfate 1 gm Tablet PO (11:15)
--- NOTE | 2021-11-01 16:19 | NMCV_ITS ---
NM scott perf SPECT r/s* [id number] Rachelle Mireles Age: 51 Gender: F : 1970 Exam Date: 11/01/2021 07:07 Ordering Phys: Carlos Corbett MD Technologist: URBAN Pinto Exam Location: [facility] Indications: CHEST PAIN STRESS TEST Please see separate stress test report in [facility] for full findings IMAGE PROTOCOL Rest/Stress 1 Lexiscan Day Radiopharmaceutical Dose (mCi) Administration Site Administered by Rest: Tc-99m 10.8 IV URBAN Ventura Sestamibi Stress:Tc-99m 32.8 IV URBAN Ventura Sestamibi Rest: 01-Nov-2021 60 Discovery 630 Stress: 01-Nov-2021 30 Discovery 630 0.4mg Lexiscan. Images obtained in supine and prone position. SPECT RESULTS Technical Quality: Excellent Raw Data Analysis: Normal Image Corrections: No attenuation or motion correction applied Summed Stress Score: 4 Summed Rest Score: 0 Summed Difference Score: 4 PERFUSION FINDINGS Small size perfusion abnormality of mild severity of basal to mid inferior and basal to mid inferolateral wall on supine stress images with improved tracer uptake on prone stress images. This likely represents sub diaphragmatic attenuation artifact. FUNCTIONAL RESULTS (calculated via Gated SPECT) Stress Image LV EF (%): 73 Stress EDV (mL):121 TID: 1 Stress ESV (mL):33 FUNCTIONAL FINDINGS: The left ventricle is normal in size. Transient Ischemia Dilatation of 1. There is normal left ventricular systolic function. The left ventricular ejection fraction is normal with a value of 73%. There is normal left ventricular wall thickening with no regional wall motion abnormality. Normal end-diastolic and end-systolic volumes. IMPRESSIONS 1. Myocardial perfusion imaging is normal. Attenuation artifact noted in basal to mid inferior and inferolateral kahn. 2. Overall left ventricular systolic function is normal without regional wall motion abnormalities. 3. The left ventricular ejection fraction is normal with a value of 73%. 4. Normal EKG response to Lexiscan infusion. Refer to separate report for details. 5. No prior similar studies to compare. Vida Wall MD (Electronically Signed) Final Date: 01 November 2021 12:31 S
--- NOTE | 2021-11-01 17:40 | PC.NURSE ---
Patient education provided. Patient educated about new medications, signs and symptoms to watch for and follow up appointments. No questions or concerns. IV removed prior to discharge. Medications sent to pharmacy. VS stable upon departure. Escorted out via wheelchair.
--- NOTE | 2021-11-01 17:44 | PC.NURSE ---
Discharge Note Patient discharged to [] via [] accompanied by []. Discharge instructions reviewed with patient and/or promotional representative. Mobile pharmacy medications and/or prescriptions provided. Belongings/home medications returned.
--- NOTE | 2021-11-01 17:45 | PC.NURSE ---
This Rn agrees with all documentation and medication administration by student nurse Aleah Monaco
--- NOTE | 2021-11-01 22:20 | PM.DCS ---
Discharge Providers Date of Admission: 10/29/21 23:17 Date of Discharge: November 01, 2021 Attending Provider at Admission: Haider Tripp Attending Provider at Discharge: Carlos Corbett Primary Care Provider: Tom Dan NP Diagnoses at Discharge Discharge Diagnosis (1) Nausea & vomiting: Status: Acute (2) Acute kidney injury: Status: Acute (3) Elevated troponin: Status: Acute (4) GI bleed: Status: Acute (5) Influenza: Status: Acute Reason for Visit Reason for Visit: CP Hospital Course Hospital Course Pleasant 51-year-old lady with history of HTN, depression, anxiety, psoriasis, psoriatic arthritis, PTSD, currently smoker, was admitted for assessment management due to multiple symptoms including nausea and vomiting, hematemesis, some dark tarry stools, recent colonoscopy performed 2 months ago, and presentation with finding of influenza A infection, which was managed symptomatically, but also with GI bleed treated with IV Protonix, sucralfate, bowel rest initially, with repeat mild decrease in hemoglobin down to 11.7, thought to be likely NSAID induced gastritis, taking NSAIDs at home, was counseled to discontinue. Will need additional follow-up upper endoscopy evaluation. On presentation also with noted elevated troponin, possible NSTEMI, initially started on aspirin, heparin drip, but these were further withheld due to the presentation with GI bleed. She initially first 2 days had malaise, but no distinct chest pain. Echocardiogram was obtained with finding of normal ejection fraction, normal diastolic function, no regional wall motion normality. Mild-moderate MVR. She did well in terms of oxygenation. Was additionally assessed by stress testing given risk factors of coronary disease and significant elevation of troponin on presentation ([id number].), With nuclear perfusion scan not revealing ischemia. LEVY on presentation, creatinine up to 1.5 resolved with withholding NSAIDs, gentle fluid challenge. She is counseled to discontinue NSAIDs. Hypokalemia replaced. Symptomatically she has been feeling much better, today eager and requesting to discharge home. Physical Exam Const: COMMON NORMALS: no acute distress and patient oriented x3 HENMT: COMMON NORMALS: oropharynx normal Neck/C-Spine: COMMON NORMALS: no JVD Resp: COMMON NORMALS: normal respiratory effort and clear to auscultation bilaterally AUSCULTATION: clear to auscultation bilaterally Cardio: COMMON NORMALS: no JVD, regular rhythm, S1 normal heart sound present, S2 normal heart sound present and No murmurs present (Cardio) RHYTHM: regular rhythm HEART SOUNDS: S1 normal heart sound present and S2 normal heart sound present GI: COMMON NORMALS: Normal to inspection, nondistended, normoactive bowel sounds present, Soft to palpation and non-tender PALPATION: Yes Soft to palpation Extremity: COMMON NORMALS: no joint enlargement and no pedal edema Neuro: COMMON NORMALS: patient oriented x3 and moves all extremities Skin: COMMON NORMALS: no rashes or lesions noted GENERAL SKIN EXAM: no rashes or lesions noted Discharge Data Studies Completed and Pending Completed Studies During Hospitalization Category Date Time Status Sestamibi Stress Test Request Routine Exams 11/01/21 08:00 Completed XR chest 1V portable [id number] Urgent Exams 10/29/21 23:20 Completed NM scott perf SPECT r/s* [id number] Routine Nuc Med 11/01/21 16:19 Completed CV. echo complete* [id number] Routine Ultrasound 10/30/21 05:20 Completed Pending at discharge Category Date Time Status Blood Culture Stat Lab 10/29/21 21:22 Results Radiology Impressions Chest X-Ray 10/29/21 23:20 IMPRESSION: No acute abnormality demonstrated. Laboratory Results WBC 4.7 10^3/uL (4.0-10.0) 11/01/21 03:50 RBC 3.74 10^6/uL (4.1-5.3) L 11/01/21 03:50 Hgb 11.7 g/dL (11.5-15.3) 11/01/21 03:50 Hct 35.9 % (37.0-47.0) L 11/01/21 03:50 MCV 96.0 fl (81-99) 11/01/21 03:50 MCH 31.3 pg (28.0-34.0) 11/01/21 03:50 MCHC 32.6 g/dL (30.0-36.0) 11/01/21 03:50 RDW 13.9 % (12.1-15.1) 11/01/21 03:50 Plt Count 230 10^3/cmm (130-400) 11/01/21 03:50 MPV 10.6 fL (7.4-10.4) H 11/01/21 03:50 Neut % (Auto) 52.2 % 11/01/21 03:50 Lymph % (Auto) 33.3 % 11/01/21 03:50 Randolph % (Auto) 12.2 % 11/01/21 03:50 Eos % (Auto) 1.5 % 11/01/21 03:50 Baso % (Auto) 0.6 % 11/01/21 03:50 Neut # (Auto) 2.47 10^3/uL (1.8-7.7) 11/01/21 03:50 Lymph # (Auto) 1.6 10^3/uL (0.8-4.8) 11/01/21 03:50 Randolph # (Auto) 0.6 10^3/uL (0.2-0.9) 11/01/21 03:50 Eos # (Auto) 0.1 10^3/uL (0.0-0.8) 11/01/21 03:50 Baso # (Auto) 0.0 10^3/uL (0.0-0.1) 11/01/21 03:50 Nucleated RBC % (auto) 0 % 11/01/21 03:50 Nucleated RBCs # 0.0 /100WBC 11/01/21 03:50 PT 12.30 SECONDS (12.1-14.9) 10/29/21 20:45 INR 0.89 (0.8-1.2) 10/29/21 20:45 APTT 36.3 SECONDS (23.9-36.7) 10/29/21 20:45 Sodium 137 mmol/L (136-145) 11/01/21 03:50 Potassium 4.2 mmol/L (3.5-5.1) 11/01/21 03:50 Chloride 100 mmol/L (98-107) 11/01/21 03:50 Carbon Dioxide 25 mmol/L (22-29) 11/01/21 03:50 Anion Gap 16.2 (5-19) 11/01/21 03:50 BUN 8 mg/dL (6-20) 11/01/21 03:50 Creatinine 0.7 mg/dL (0.5-0.9) 11/01/21 03:50 GFR Calculation 87.5 mL/min (90-130) L 11/01/21 03:50 Glucose 101 mg/dL (65-115) 11/01/21 03:50 Calculated Osmolality 282 mOsm/kg (285-295) L 11/01/21 03:50 Calcium 9.0 mg/dL (8.5-10.5) 11/01/21 03:50 Magnesium 2.3 mg/dL (1.7-2.3) 10/31/21 03:28 Total Bilirubin 0.2 mg/dL (0.15-1.2) 11/01/21 03:50 AST 49 U/L (0-32) H 11/01/21 03:50 ALT 32 U/L (0-33) 11/01/21 03:50 Alkaline Phosphatase 87 IU/L (35-105) 11/01/21 03:50 Troponin T Baseline 210 ng/L (0-10) H* 10/29/21 20:45 Troponin T 120 Minute 166.4 ng/L (0-10) H 10/29/21 23:33 Delta Troponin T -43.6 ABS# (0-10) L 10/29/21 23:33 Troponin T Hi Sens 6Hr 148.1 ng/L (0-10) H 10/30/21 02:12 Troponin T Hi Sens 6Hr Delta -61.9 ng/L (0-12) L 10/30/21 02:12 Total Protein 6.6 g/dL (6.6-8.7) 11/01/21 03:50 Albumin 3.9 g/dL (3.5-5.2) 11/01/21 03:50 Globulin 2.7 g/dL (1.3-4.6) 11/01/21 03:50 Lipase 25 U/L (13-60) 10/29/21 20:45 Procalcitonin 0.11 ng/mL (0-0.5) 10/31/21 03:28 TSH 3.10 uIU/mL (0.27-4.20) 10/31/21 03:28 Urine Color Yellow (Yellow) 10/30/21 08:40 Urine Appearance Clear (CLEAR) 10/30/21 08:40 Urine pH 5 (5-7) 10/30/21 08:40 Ur Specific [place] 1.020 (1.005-1.030) 10/30/21 08:40 Urine Protein 1+ (Negative) H 10/30/21 08:40 Urine Glucose (UA) Norm (Normal) 10/30/21 08:40 Urine Ketones 1+ (Negative) H 10/30/21 08:40 Urine Blood 3+ (Negative) H 10/30/21 08:40 Urine Nitrate Negative (Negative) 10/30/21 08:40 Urine Bilirubin Neg (Negative) 10/30/21 08:40 Urine Urobilinogen Norm mg/dL (Negative) 10/30/21 08:40 Ur Leukocyte Esterase Negative (Negative) 10/30/21 08:40 Urine RBC 0-4 /hpf (0-2) H 10/30/21 08:40 Urine WBC Rare /hpf (0-5) 10/30/21 08:40 Ur Squamous Epith Cells 0-4 /hpf (0-5) H 10/30/21 08:40 Amorphous Sediment Not Reportable 10/30/21 08:40 Urine Bacteria 1+ /hpf (NONE) H 10/30/21 08:40 Nasal Influ A H1 2009 PCR Not detected (NOT DETECT) 10/30/21 04:56 Coronavirus 229E (PCR) Not detected (NOT DETECT) 10/29/21 20:30 Influenza A (H1) PCR Not detected (NOT DETECT) 10/30/21 04:56 Influenza A (H3) PCR Detected (NOT DETECT) A 10/30/21 04:56 Influenza Type A Ag Positive (Negative) H 10/29/21 20:30 Influenza Type A (PCR) Detected (NOT DETECT) A 10/30/21 04:56 Influenza Type B Ag Negative (Negative) 10/29/21 20:30 Influenza Type B (PCR) Not detected (NOT DETECT) 10/30/21 04:56 SARS-CoV-2 (PCR) Not detected (NOT DETECT) 10/29/21 20:30 Blood Type O Positive 10/29/21 20:45 Rho(D) Type Positive 10/29/21 20:45 Antibody Screen Negative 10/29/21 20:45 Vitals Last Vital Signs Temp 98.7 F 11/01/21 11:55 Pulse 69 11/01/21 17:37 Resp 14 11/01/21 17:37 BP 140/91 11/01/21 17:37 Pulse Ox 98 11/01/21 17:37 Discharge Plan Discharge Patient Disposition: Home Condition: Stable Prescriptions: New lisinopril 20 mg tablet 20 mg PO DAILY Qty: 90 0RF sucralfate 1 gram Tablet 1 g PO AC&BEDTIME Qty: 56 0RF Continued multivitamin [Daily Multi-Vitamin] Tablet 1 tab PO DAILY 0RF Cymbalta 60 mg capsule,delayed release(DR/EC) 60 mg PO BID Qty: 60 0RF Skyrizi 150 mg/mL pen injector 150 mg SUBCUT .EVERY 12 WEEKS Qty: 1 3RF metoprolol tartrate 25 mg tablet 25 mg PO BID Qty: 180 3RF baclofen 20 mg Tablet 20 mg PO TID PRN (Reason: Muscle Spasm) 0RF pregabalin 100 mg capsule 100 mg PO BID 0RF albuterol sulfate [Ventolin HFA] 90 mcg/actuation Hfa Aerosol Inhaler 1 - 2 puff INHALATION QID PRN (Reason: Shortness Of Breath) 0RF metoclopramide HCl [Reglan] 10 mg tablet 10 mg PO Q6H PRN (Reason: nausea and vomiting) Qty: 20 0RF amlodipine 2.5 mg tablet 2.5 mg PO DAILY 0RF pantoprazole 40 mg tablet,delayed release (DR/EC) 40 mg PO BID 0RF ondansetron 4 mg tablet,disintegrating 4 mg PO Q8H PRN (Reason: Nausea And Vomiting) 0RF ketoconazole 2 % shampoo 1 applic topical .ONCE WEEKLY 0RF Rx Instructions: Lather into scalp 1 time weekly. Allow to sit on scalp for 5 minutes before rinsing. ascorbic acid (vitamin C) [Vitamin C] 500 mg Tablet 500 mg PO DAILY 0RF Vitamin D-3 with Aloe 120-1,000-10 mg-unit-mg Tablet 1 tab PO DAILY 0RF Discontinued lisinopril-hydrochlorothiazide 20-25 mg tablet 0.5 tab PO DAILY Qty: 45 3RF Hold Instructions: Resume on 11/13/21. ibuprofen 800 mg tablet 800 mg PO TID PRN (Reason: Pain) 0RF Hold Instructions: Resume on 09/27/21. naproxen [Naprosyn] 500 mg tablet 500 mg PO PRN PRN (Reason: Pain) 0RF Hold Instructions: Resume on 09/27/21. Discharge Orders: Discharge Order (Routine); Ordered 11/01/21 Ordered By: Carlos Corbett Referrals: Tom Dan, GENEVA [Primary Care Provider] - 4-7 days (Please follow up with Tom Dan on November 08 at 4:30 pm. If you have any questions please call the office at [phone]. Thank you.) Discharge Diet: Cardiac Discharge Activity: Increase activity as tolerated Patient Instructions: Lisinopril (By mouth), Sucralfate (By mouth), Gastrointestinal Bleeding (GEN), Acute Kidney Injury (GEN), Hypokalemia (GEN), Influenza (GEN), Abdominal Pain (ED), Opioid Safety Activity Restrictions/Additional Instructions: Please come back if you have any chest or worsening abdominal pain, fever or chills, nausea or vomiting, diarrhea, blood in the stool, inability hold down liquid or solids, or any new concerning complaints. Please have your primary doctor recheck your kidney function at next appointment for follow-up of resolution of acute kidney injury and low potassium. Please avoid any NSAIDs like ibuprofen, naproxen, or other similar medications to prevent additional kidney injury. Please have your primary doctor follow-up your blood counts to reassess for any worsening of anemia, and set up with your primary doctor for endoscopic evaluation to look inside the stomach and first part of small testing to exclude malignancy or other causes that may lead to GI blood loss. Discharge Attestations Time Spent in Discharge Care*: greater than 30 min Quality Metrics Clinical Quality Measures [ No reported AMI, CVA or VTE this stay] Coding Level of Care Code Acute Chg [facility] note Diagnoses Nausea & vomiting R11.2 Acute kidney injury N17.9 Elevated troponin R77.8 GI bleed K92.2 Influenza J11.1
== END 2021-11-01 17:45 | disposition home or self-care (01) ==
LOC: ER 23:14 → CSU 23:26
PROVIDERS: Admitting Provider Hospitalist; Emergency Provider Emergency Medicine; PCP Nurse Practitioner Family; Visit Provider Internal Medicine
DX: J11.1 Influenza due to unidentified influenza virus with other respiratory manifestations (principal); R11.2 Nausea with vomiting, unspecified; R77.8 Other specified abnormalities of plasma proteins; N17.9 Acute kidney failure, unspecified; K92.2 Gastrointestinal hemorrhage, unspecified; I10 Essential (primary) hypertension; F32.9 Major depressive disorder, single episode, unspecified; F41.9 Anxiety disorder, unspecified; F17.210 Nicotine dependence, cigarettes, uncomplicated; R07.89 Other chest pain; R00.0 Tachycardia, unspecified
CPT/HCPCS: 36415; 71045; 78452; 80053; 81001; 83690; 83735; 84132; 84145; 84443; 84484; 85014; 85018; 85025; 85610; 85730; 86850; 86900; 87040; 87631; 87635; 87804; 93005; 93017; 93306; 96365; 96367; 96375; 99285; A9500; C9113; G0378; J1644; J2270; J2405; J2785; J3475; J3490; J7030; J8498

== ENCOUNTER → 2021-11-10 07:55 | Outpatient (BNVA) | payer MEDICARE, MEDICAID, SELFPAY | PROVIDERS: PCP Nurse Practitioner Family; Referring Provider Nurse Practitioner Family; Visit Provider Nurse Practitioner | DX: R41.3 Other amnesia (principal); Z86.73 Personal history of transient ischemic attack (TIA), and cerebral infarction without residual deficits; F17.210 Nicotine dependence, cigarettes, uncomplicated | CPT/HCPCS: 96116; 99204 ==

== ENCOUNTER → 2021-11-20 10:55 | Outpatient (BNVA) | payer MEDICARE, MEDICAID, SELFPAY | PROVIDERS: PCP Family Medicine; Visit Provider Internal Medicine Cardiovascular Disease | DX: I63.9 Cerebral infarction, unspecified (principal); I47.2 Ventricular tachycardia | CPT/HCPCS: 93270 ==

== ENCOUNTER 2021-11-24 10:37 | Emergency (ER) | payer MEDICARE, MEDICAID, SELFPAY ==
[2021-11-24 10:46] VITALS: PULSE 81; RESP 16; TEMP 36.6; O2SAT 95; BMI 25.8
--- NOTE | 2021-11-24 10:52 | XRR_ITS ---
PROCEDURE INFORMATION: Exam: XR Left Foot Exam date and time: 11/24/2021 10:57 AM Age: 51 years old Clinical indication: Fall with blunt trauma today with pain to the left lateral foot. TECHNIQUE: Imaging protocol: XR Left foot. Views: 3 or more views. COMPARISON: CR Foot 3 views, LEFT* [id number] 12/22/2018 8:12 PM FINDINGS: Bones/joints: Hardware is noted across the 2nd, 3rd and 4th proximal interphalangeal joints. There are 3 screws across the tibiotalar and posterior subtalar articulations with associated osseous fusion. No acute fracture or hardware complication is seen. No fracture, dislocation or subluxation. Soft tissues: There is a linear foreign body within the lateral and plantar soft tissues posteriorly that measures 6.9 mm. Mild dorsal soft tissue swelling. XR/XR foot LT min 3V* [id number] IMPRESSION: 1. Linear foreign body within the lateral and plantar soft tissues posteriorly that measures 6.9 mm. 2. No acute fracture or hardware complication is seen. 3. Mild dorsal soft tissue swelling.
[2021-11-24 10:59] VITALS: BP 119/95; PULSE 83; RESP 18; TEMP 36.7; O2SAT 95
[2021-11-24 11:02] VITALS: PULSE 78
--- NOTE | 2021-11-24 11:02 | ED_ITS ---
HPI - Extremity Problem General: Chief complaint: Extremity Injury, Lower Stated complaint: Lt foot injury Time Seen by Provider: 11/24/21 10:44 History of Present Illness: Patient stepped off porch this morning twisting left foot has pain to left foot with mild swelling. Associated symptoms: Deny chest pain, fever(s) or rash Review of Systems Const: Denies: fever(s), chills or body aches Eyes: Denies: eye discomfort ENMT: Denies: throat pain Card: Denies: chest pain Resp: Denies: dyspnea GI: Denies: abdominal pain, nausea or vomiting Skin/Breast: Denies: rash Neuro: Denies: headache(s) Psych: Denies: depression or suicidal ideation PFS ED PFSH: Medical History (Updated 11/24/21 @ 11:11 by LISA Loera) Acute kidney injury Anxiety Cannabis dependence, uncomplicated CVA (cerebral vascular accident) Elevated troponin GI bleed High risk medication use Hypertension Major depressive disorder, recurrent, in partial remission Memory loss Plaque psoriasis Post-traumatic stress disorder, chronic Psoriatic arthritis Family History Other CAD (coronary artery disease) Cancer Diabetes Hypertension Lung disease Social History Smoking and tobacco status: current every day smoker cigarettes Physical Exam Const: COMMON NORMALS: no acute distress Resp: COMMON NORMALS: normal respiratory effort Extremity: NARRATIVE EXTREMITY EXAM: left ankle pain, mild swelling Course Vital Signs: Vital signs: Vital Signs Temperature 98.0 F 11/24/21 10:59 Pulse Rate 78 11/24/21 11:02 Respiratory Rate 18 11/24/21 10:59 Blood Pressure 119/95 11/24/21 10:59 Pulse Oximetry 95 11/24/21 10:59 MDM - Extremity (Nontraumatic) Medical Decision Making Left ankle sprain. Discharge Plan Discharge Patient Disposition: Home Clinical Impression: Ankle sprain Qualifiers: Encounter type: initial encounter Involved ligament of ankle: unspecified ligament Laterality: left Qualified Code(s): S93.402A - Sprain of unspecified ligament of left ankle, initial encounter Condition: Stable Prescriptions: No Action aspirin 81 mg tablet,delayed release (DR/EC) 81 mg PO DAILY Qty: 30 6RF multivitamin [Daily Multi-Vitamin] Tablet 1 tab PO DAILY 0RF Cymbalta 60 mg capsule,delayed release(DR/EC) 60 mg PO BID Qty: 60 0RF Skyrizi 150 mg/mL pen injector 150 mg SUBCUT .EVERY 12 WEEKS Qty: 1 3RF metoprolol tartrate 25 mg tablet 25 mg PO BID Qty: 180 3RF baclofen 20 mg Tablet 20 mg PO TID PRN (Reason: Muscle Spasm) 0RF pregabalin 100 mg capsule 100 mg PO BID 0RF albuterol sulfate [Ventolin HFA] 90 mcg/actuation Hfa Aerosol Inhaler 1 - 2 puff INHALATION QID PRN (Reason: Shortness Of Breath) 0RF amlodipine 2.5 mg tablet 2.5 mg PO DAILY 0RF pantoprazole 40 mg tablet,delayed release (DR/EC) 40 mg PO BID 0RF ondansetron 4 mg tablet,disintegrating 4 mg PO Q8H PRN (Reason: Nausea And Vomiting) 0RF ketoconazole 2 % shampoo 1 applic topical .ONCE WEEKLY 0RF Rx Instructions: Lather into scalp 1 time weekly. Allow to sit on scalp for 5 minutes before rinsing. ascorbic acid (vitamin C) [Vitamin C] 500 mg Tablet 500 mg PO DAILY 0RF Vitamin D-3 with Aloe 120-1,000-10 mg-unit-mg Tablet 1 tab PO DAILY 0RF sucralfate 1 gram Tablet 1 g PO AC&BEDTIME Qty: 56 0RF Discharge Orders: Discharge ED (Routine); Ordered 11/24/21 Ordered By: Ovidio Martinez Referrals: Bucky Rogers MD [Primary Care Provider] - Discharge Diet: Usual diet Discharge Activity: Resume usual activity Patient Instructions: Ankle Sprain (ED) Activity Restrictions/Additional Instructions: Ice to ankle as needed. Follow-up your primary care provider. Coding Level of Care Code ED Volunteer Services Specialist for Chg Fwd Exam Expanded Problem Focused
[2021-11-24 11:20] VITALS: BP 127/87; PULSE 76; RESP 16; O2SAT 95
[2021-11-24 11:30] VITALS: BP 127/87; PULSE 76; RESP 16; O2SAT 95
== END 2021-11-24 11:25 | disposition home or self-care (01) ==
PROVIDERS: Emergency Provider Nurse Practitioner Family; PCP Family Medicine
DX: S93.402A Sprain of unspecified ligament of left ankle, initial encounter (principal); Z79.82 Long term (current) use of aspirin; Z86.73 Personal history of transient ischemic attack (TIA), and cerebral infarction without residual deficits; I10 Essential (primary) hypertension; F17.210 Nicotine dependence, cigarettes, uncomplicated; X50.1XXA Overexertion from prolonged static or awkward postures, initial encounter
CPT/HCPCS: 73630; 99282

== ENCOUNTER 2021-12-01 22:16 | Emergency (ER) | payer MEDICARE, MEDICAID, SELFPAY ==
[2021-12-01 22:16] VITALS: BP 102/72; PULSE 71; RESP 22; TEMP 37.4; O2SAT 94; BMI 25.8
[2021-12-01 22:36] VITALS: BP 136/97; PULSE 78; RESP 22; O2SAT 100
[2021-12-01] MEDS: haloperidol inj 5 mg/mL INJ 1 mL IVP (22:49)
[2021-12-01 23:05] LABS: Basophils % 0.3 %; Eosinophils # 0.1 10^3/uL (0.0-0.8); Eosinophils % 0.6 %; Hematocrit 45.7 % (37.0-47.0); Hemoglobin 15.6 g/dL (11.5-15.3); Lymphocytes # 2.1 10^3/uL (0.8-4.8); Lymphocytes % 21.6 %; Mean Corpuscular HGB Conc 34.1 g/dL (30.0-36.0); Mean Corpuscular Hemoglobin 31.8 pg (28.0-34.0); Mean Corpuscular Volume 93.1 fl (81-99); Mean Platelet Volume 11.1 fL (7.4-10.4); Monocytes # 1.2 10^3/uL (0.2-0.9); Monocytes % 12.1 %; Neutrophils % 65.1 %; Nucleated Red Blood Cells % 0 %; Platelet Count 326 10^3/cmm (130-400); Red Blood Count 4.91 10^6/uL (4.1-5.3); Red Cell Distribution Width 14.8 % (12.1-15.1); White Blood Count 9.7 10^3/uL (4.0-10.0)
[2021-12-01] MEDS: sodium chloride 0.9% 1,000 ML 999 ML IV ×2 (23:06→23:08)
[2021-12-01 23:16] VITALS: BP 189/105; PULSE 69; RESP 22; O2SAT 95
--- NOTE | 2021-12-01 23:18 | PC.NURSE ---
pt in room yelling I want my mamma, I want something for pain Im hurting tell the doctor
[2021-12-01 23:20] LABS: Alanine Aminotransferase 27 U/L (0-33); Albumin Level 4.7 g/dL (3.5-5.2); Alkaline Phosphatase 120 IU/L (35-105); Anion Gap 16.4 (5-19); Aspartate Amino Transferase 34 U/L (0-32); Blood Urea Nitrogen 18 mg/dL (6-20); Calcium 10.2 mg/dL (8.5-10.5); Carbon Dioxide 27 mmol/L (22-29); Chloride 87 mmol/L (98-107); Globulin 2.9 g/dL (1.3-4.6); Glucose 129 mg/dL (65-115); Lipase 46 U/L (13-60); Magnesium 2.3 mg/dL (1.7-2.3); Osmolality Calculated 268 mOsm/kg (285-295); Potassium 3.4 mmol/L (3.5-5.1); Sodium 127 mmol/L (136-145); Total Bilirubin 0.3 mg/dL (0.15-1.2); Total Protein 7.6 g/dL (6.6-8.7)
--- NOTE | 2021-12-01 23:23 | XRR_ITS ---
PROCEDURE INFORMATION: Exam: XR Abdomen Exam date and time: 12/01/2021 11:28 PM Age: 51 years old Clinical indication: Nausea and vomiting; Abdominal pain; Generalized; Patient HX: C/O abd pain with n/v. TECHNIQUE: Imaging protocol: XR of the abdomen. Views: Frontal supine view of the abdomen. 1 View. COMPARISON: CT abdomen pelvis w con* [id number] 09/04/2021 12:08 PM FINDINGS: Gastrointestinal tract: Normal. No bowel dilation. Bones/joints: Surgical screws are seen bridging both the right and left sacroiliac joints. Surgical screws are also seen in the bilateral superior pubic rami. XR/XR KUB portable [id number] IMPRESSION: Negative for bowel dilation to indicate obstruction.
[2021-12-01] MEDS: ondansetron 2 mg/ML SDV 2 mL 4 MG IVP (23:26)
[2021-12-01 23:28] VITALS: RESP 22
[2021-12-01] MEDS: HYDROmorphone 1 mg/mL INJ 1 mL IVP (23:28)
[2021-12-02] VITALS (11 sets, daily range): BP systolic 98–186; BP diastolic 52–130; PULSE 63–80; RESP 14–20; O2SAT 91–98
--- NOTE | 2021-12-02 00:04 | CTR_ITS ---
PROCEDURE INFORMATION: Exam: CT Abdomen And Pelvis With Contrast Exam date and time: 12/02/2021 12:28 AM Age: 51 years old Clinical indication: Nausea and vomiting; Abdominal pain; Generalized; Prior surgery; Surgery date: 6+ months; Surgery type: Appy, gb, hyst, pelvis; Patient HX: C/O abd pain w n/v; Additional info: Abd pain, vomiting TECHNIQUE: Imaging protocol: Computed tomography of the abdomen and pelvis with contrast. Radiation optimization: All CT scans at this facility use at least one of these dose optimization techniques: automated exposure control; mA and/or kV adjustment per patient size (includes targeted exams where dose is matched to clinical indication); or iterative reconstruction. Contrast material: OMNI 300; Contrast volume: 95 ml; Contrast route: INTRAVENOUS (IV); COMPARISON: CT abdomen pelvis w con* [id number] 09/04/2021 12:08 PM RADIATION DOSE METRICS: Total DLP (mGy-cm): 1306.17 FINDINGS: Tubes, catheters and devices: Surgical hardware in the pelvis. Lungs: Bibasilar atelectasis. Liver: Normal. No mass. Gallbladder and bile ducts: Cholecystectomy. Pancreas: Normal. No ductal dilation. Spleen: Normal. No splenomegaly. Adrenal glands: Normal. No mass. Kidneys and ureters: Bilateral renal cysts, negative for follow-up advised. Stomach and bowel: Prominent fluid in the stomach and small bowel with mucosal enhancement without dilation suggestive of a gastroenteritis. Constipation. Appendix: No evidence of appendicitis. Intraperitoneal space: Unremarkable. No free air. No significant fluid collection. Vasculature: Unremarkable. No abdominal aortic aneurysm. Lymph nodes: Unremarkable. No enlarged lymph nodes. Urinary bladder: Unremarkable as visualized. Reproductive: Unremarkable as visualized. Bones/joints: Unremarkable. No acute fracture. Soft tissues: Unremarkable. CT/CT abdomen pelvis w con* [id number] IMPRESSION: 1. Prominent fluid in the stomach and small bowel with mucosal enhancement without dilation suggestive of a gastroenteritis. 2. Constipation. 3. Surgical hardware in the pelvis. 4. Bibasilar atelectasis. 5. Cholecystectomy. 6. Bilateral renal cysts, negative for follow-up advised.
--- NOTE | 2021-12-02 00:07 | W.ED.NAVMDI ---
HPI - Nausea/Vomiting/Diarrhea General: Chief complaint: Nausea/Vomiting/Diarrhea Stated complaint: abd pain n/v Time Seen by Provider: 12/01/21 22:25 Source: patient History of Present Illness: 51-year-old female with a history of gastritis and duodenitis. She may or may not also have a history of cyclical vomiting syndrome. She presents with 14 hours of abdominal pain, vomiting. She presents retching loudly and repeatedly. She denies any fever. She states she has had some loose stool as well. She says she has a son who has been sick with vomiting at home as well. She has a history of pelvic reconstruction surgery post trauma. She recently had a colonoscopy without problems. She is also recently hospitalized for acute kidney injury related to vomiting MD elicited complaint: nausea, vomiting and abdominal pain Pertinent past history: cyclical vomiting and other Onset (ago): hour(s) (14) Description of vomiting: food contents and watery Associated nausea: Yes Associated abdominal pain: Yes Location of pain: Diffuse Radiation: diffuse Pain consistency: constant Severity: severe Quality: stabbing Exacerbating factors: vomiting Relieving factors: none Associated symtoms: Reports anorexia and nausea; Denies altered mental status, chest pain, cough, diaphoresis, dizziness, fevers/chills, headache(s), rash or short of breath Review of Systems Const: Denies: fever(s), chills or diaphoresis ENMT: Denies: throat pain Card: Denies: chest pain Resp: Denies: dyspnea, productive cough or non-productive cough GI: Reports: abdominal pain, nausea, vomiting and diarrhea; Denies: hematochezia Neuro: Denies: headache(s) or dizziness PFS ED PFSH: Medical History Acute kidney injury Anxiety Cannabis dependence, uncomplicated CVA (cerebral vascular accident) Elevated troponin GI bleed High risk medication use Hypertension Major depressive disorder, recurrent, in partial remission Memory loss Plaque psoriasis Post-traumatic stress disorder, chronic Psoriatic arthritis Family History Other CAD (coronary artery disease) Cancer Diabetes Hypertension Lung disease Social History Smoking and tobacco status: current every day smoker cigarettes Physical Exam Const: EXAM LIMITATIONS: no altered mental status GENERAL APPEARANCE: cooperative and ill appearing ORIENTATION/CONSCIOUSNESS: Yes awake, Yes oriented to person, Yes oriented to place and Yes oriented to time HENMT: COMMON NORMALS: normocephalic and Normal external nose present HEAD & SCALP: normocephalic NOSE: Normal external nose present and Normal nares present Eye: COMMON NORMALS: Equal, round and reactive pupils present and EOMs intact bilaterally SCLERA: sclerae normal PUPIL: Yes Equal, round and reactive pupils present Resp: COMMON NORMALS: normal respiratory effort, No use of accessory muscles and clear to auscultation bilaterally AUSCULTATION: clear to auscultation bilaterally Cardio: COMMON NORMALS: regular rate and regular rhythm RATE: regular rate RHYTHM: regular rhythm GI: COMMON NORMALS: Normal to inspection, nondistended, normoactive bowel sounds present PALPATION: Yes Tenderness to palpation present (GI) (Diffuse) Extremity: COMMON NORMALS: normal to inspection Neuro: SENSORIUM/ORIENTATION: Yes oriented to person, Yes oriented to place and Yes oriented to time Course Vital Signs: Vital signs: Vital Signs Temperature 99.3 F 12/01/21 22:16 Pulse Rate 71 12/02/21 06:00 Respiratory Rate 18 12/02/21 06:00 Blood Pressure 121/90 12/02/21 06:00 Pulse Oximetry 93 12/02/21 06:00 MDM - Nausea/Vomiting/Diarrhea Medical Decision Making Vomiting now controlled after IV Haldol, Ativan, and Zofran. She was quite hypertensive, this was controlled with sublingual nitroglycerin. This is likely from inability to take her antihypertensives due to vomiting. She has been fluid resuscitated. Ct of the belly shows fluid filled stomach and small intestine consistent with gastroenteritis. I am sure that there is also a cannabinoid cyclic vomiting component. She has passed an oral fluid challenge here. With improvement in her symptoms, she will be allowed home. Lab Data : 12/01/21 22:35 12/01/21 22:35 Radiology Impressions KUB X-Ray 12/01/21 23:23 IMPRESSION: Negative for bowel dilation to indicate obstruction. Abdomen/Pelvis CT 12/02/21 00:04 IMPRESSION: 1. Prominent fluid in the stomach and small bowel with mucosal enhancement without dilation suggestive of a gastroenteritis. 2. Constipation. 3. Surgical hardware in the pelvis. 4. Bibasilar atelectasis. 5. Cholecystectomy. 6. Bilateral renal cysts, negative for follow-up advised. Laboratory Results WBC 9.7 10^3/uL (4.0-10.0) 12/01/21: RBC 4.91 10^6/uL (4.1-5.3) 12/01/21 22:35 Hgb 15.6 g/dL (11.5-15.3) H 12/01/21: Hct 45.7 % (37.0-47.0) 12/01/21: MCV 93.1 fl (81-99) 12/01/21: MCH 31.8 pg (28.0-34.0) 12/01/21: MCHC 34.1 g/dL (30.0-36.0) 12/01/21: RDW 14.8 % (12.1-15.1) 12/01/21: Plt Count 326 10^3/cmm (130-400) 12/01/21: MPV 11.1 fL (7.4-10.4) H 12/01/21 22:35 Neut % (Auto) 65.1 % 12/01/21: Lymph % (Auto) 21.6 % 12/01/21: [place] % (Auto) 12.1 % 12/01/21:35 Eos % (Auto) 0.6 % 12/01/21: Baso % (Auto) 0.3 % 12/01/21: Neut # (Auto) 6.30 10^3/uL (1.8-7.7) 12/01/21: Lymph # (Auto) 2.1 10^3/uL (0.8-4.8) 12/01/21: [place] # (Auto) 1.2 10^3/uL (0.2-0.9) H 12/01/21:35 Eos # (Auto) 0.1 10^3/uL (0.0-0.8) 12/01/21 22: Baso # (Auto) 0.0 10^3/uL (0.0-0.1) 04/01/22 22:35 Nucleated RBC % (auto) 0 % 12/01/21 22:35 Nucleated RBCs # 0.0 /100WBC 12/01/21 22:35 Sodium 127 mmol/L (136-145) L 12/01/21 22:35 Potassium 3.4 mmol/L (3.5-5.1) L 12/01/21 22:35 Chloride 87 mmol/L (98-107) L 12/01/21 22:35 Carbon Dioxide 27 mmol/L (22-29) 12/01/21 22:35 Anion Gap 16.4 (5-19) 12/01/21 22:35 BUN 18 mg/dL (6-20) 12/01/21 22:35 Creatinine 1.0 mg/dL (0.5-0.9) H 12/01/21 22:35 GFR Calculation 58.0 mL/min (90-130) L 12/01/21 22:35 Glucose 129 mg/dL (65-115) H 12/01/21 22:35 Calculated Osmolality 268 mOsm/kg (285-295) L 12/01/21 22:35 Calcium 10.2 mg/dL (8.5-10.5) 12/01/21 22:35 Magnesium 2.3 mg/dL (1.7-2.3) 12/01/21 22:35 Total Bilirubin 0.3 mg/dL (0.15-1.2) 12/01/21 22:35 AST 34 U/L (0-32) H 12/01/21 22:35 ALT 27 U/L (0-33) 12/01/21 22:35 Alkaline Phosphatase 120 IU/L (35-105) H 12/01/21 22:35 C-Reactive Protein 3.0 mg/L (0.0-4.9) 12/01/21 22:35 Total Protein 7.6 g/dL (6.6-8.7) 12/01/21 22:35 Albumin 4.7 g/dL (3.5-5.2) 12/01/21 22:35 Globulin 2.9 g/dL (1.3-4.6) 12/01/21 22:35 Lipase 46 U/L (13-60) 12/01/21 22:35 Urine Color Yellow (Yellow) 12/02/21 00:45 Urine Appearance Clear (CLEAR) 12/02/21 00:45 Urine pH 8 (5-7) H 12/02/21 00:45 Ur Specific [place] 1.010 (1.005-1.030) 12/02/21 00:45 Urine Protein Trace (Negative) 12/02/21 00:45 Urine Glucose (UA) Norm (Normal) 12/02/21 00:45 Urine Ketones 1+ (Negative) H 12/02/21 00:45 Urine Blood Trace (Negative) H 12/02/21 00:45 Urine Nitrate Negative (Negative) 12/02/21 00:45 Urine Bilirubin Neg (Negative) 12/02/21 00:45 Prot Sulfosalicylic Acd Negative (Negative) 12/02/21 00:45 Urine Urobilinogen Norm mg/dL (Negative) 12/02/21 00:45 Ur Leukocyte Esterase Negative (Negative) 12/02/21 00:45 Urine RBC 0-4 /hpf (0-2) H 12/02/21 00:45 Urine WBC 0-4 /hpf (0-5) H 12/02/21 00:45 Ur Squamous Epith Cells 0-4 /hpf (0-5) H 12/02/21 00:45 Amorphous Sediment Not Reportable 12/02/21 00:45 Urine Bacteria Trace /hpf (NONE) 12/02/21 00:45 Hyaline Casts 0-4 /lpf H 12/02/21 00:45 Urine Opiates Screen Positive ng/mL (Negative) H 12/02/21 00:45 Ur Barbiturates Screen Negative ng/mL (Negative) 12/02/21 00:45 Ur Phencyclidine Scrn Negative ng/mL (Negative) 12/02/21 00:45 Ur Amphetamines Screen Negative ng/mL (Negative) 12/02/21 00:45 U Benzodiazepines Scrn Negative ng/mL (Negative) 12/02/21 00:45 Urine Cocaine Screen Negative ng/mL (Negative) 12/02/21 00:45 U Marijuana (THC) Screen Positive ng/mL (Negative) H 12/02/21 00:45 Discharge Plan Discharge Patient Disposition: Home Clinical Impression: Cannabinoid hyperemesis syndrome, Gastroenteritis Condition: Stable Prescriptions: Continued ondansetron 4 mg tablet,disintegrating 4 mg PO Q8H PRN (Reason: Nausea And Vomiting) Qty: 12 0RF No Action aspirin 81 mg tablet,delayed release (DR/EC) 81 mg PO DAILY Qty: 30 6RF multivitamin [Daily Multi-Vitamin] Tablet 1 tab PO DAILY 0RF Cymbalta 60 mg capsule,delayed release(DR/EC) 60 mg PO BID Qty: 60 0RF Skyrizi 150 mg/mL pen injector 150 mg SUBCUT .EVERY 12 WEEKS Qty: 1 3RF metoprolol tartrate 25 mg tablet 25 mg PO BID Qty: 180 3RF baclofen 20 mg Tablet 20 mg PO TID PRN (Reason: Muscle Spasm) 0RF pregabalin 100 mg capsule 100 mg PO BID 0RF albuterol sulfate [Ventolin HFA] 90 mcg/actuation Hfa Aerosol Inhaler 1 - 2 puff INHALATION QID PRN (Reason: Shortness Of Breath) 0RF amlodipine 2.5 mg tablet 2.5 mg PO DAILY 0RF pantoprazole 40 mg tablet,delayed release (DR/EC) 40 mg PO BID 0RF ketoconazole 2 % shampoo 1 applic topical .ONCE WEEKLY 0RF Rx Instructions: Lather into scalp 1 time weekly. Allow to sit on scalp for 5 minutes before rinsing. ascorbic acid (vitamin C) [Vitamin C] 500 mg Tablet 500 mg PO DAILY 0RF Vitamin D-3 with Aloe 120-1,000-10 mg-unit-mg Tablet 1 tab PO DAILY 0RF sucralfate 1 gram Tablet 1 g PO AC&BEDTIME Qty: 56 0RF Discharge Orders: Discharge ED (Routine); Ordered 12/02/21 Ordered By: Bobo Mcdonald Referrals: Bucky Rogers MD [Primary Care Provider] - 4-7 days Patient Instructions: Gastroenteritis (ED), Cyclic Vomiting Syndrome (ED) Activity Restrictions/Additional Instructions: Take the nausea medication scheduled every 6 hours while awake for the first 48 hours, then as needed. Make sure to take your blood pressure medication when you get home. Return for worsening pain, fever, vomiting liquids or medications despite treatment. Coding Level of Care Code ED License Inspector for [place] Fwd Exam Detailed
[2021-12-02] MEDS: iohexol 300 mg/mL 100 mL Btl IV (00:26)
[2021-12-02] MEDS: LORazepam 2 mg/mL INJ 1 mL IVP (00:36)
[2021-12-02] MEDS: haloperidol inj 5 mg/mL INJ 1 mL 3 MG IVP (00:37)
[2021-12-02 00:58] LABS: Bilirubin Urine Neg (Negative); Blood Urine Trace (Negative); Glucose Urine UA Norm (Normal); Ketones Urine 1+ (Negative); Leukocyte Esterase Urine Negative (Negative); Nitrate Urine Negative (Negative); Protein Urine Trace (Negative); Urine Appearance Clear (CLEAR); Urine Color Yellow (Yellow); Urobilinogen Urine Norm (Negative); pH Urine 8 (5-7)
[2021-12-02 00:59] LABS: Add Urine Culture? No; Add Urine Microscopic? YES; Bacteria Urine TRACE /hpf; Hyaline Casts Urine 0-4 /lpf; RBC Urine 0-4 /hpf (0-2); Squamous Epithelial Cell Urine 0-4 /hpf (0-5); Sulfosalicylic Acid Urine Negative (Negative); WBC Urine 0-4 /hpf (0-5)
[2021-12-02 01:09] LABS: Amphetamines Screen Urine Negative (Negative); Barbiturates Screen Urine Negative (Negative); Benzodiazepines Screen Urine Negative (Negative); Cocaine Screen Urine Negative (Negative); Opiate Screen Urine Positive (Negative); PCP Screen Urine Negative (Negative); THC Screen Urine Positive (Negative)
[2021-12-02] MEDS: metoprolol tartrate 1 mg/1 mL SDV 5 mL 5 MG IVP (02:14)
[2021-12-02] MEDS: nitroglycerin 0.4 mg sublingual Tablet SUBLINGUAL ×2 (03:14→05:23)
--- NOTE | 2021-12-02 03:24 | PC.NURSE ---
report to Abdifatah COOK
== END 2021-12-02 06:00 | disposition home or self-care (01) ==
PROVIDERS: Emergency Provider Emergency Medicine; PCP Family Medicine
DX: R11.2 Nausea with vomiting, unspecified (principal); F12.20 Cannabis dependence, uncomplicated; F17.210 Nicotine dependence, cigarettes, uncomplicated; I10 Essential (primary) hypertension; K52.9 Noninfective gastroenteritis and colitis, unspecified; Z79.82 Long term (current) use of aspirin
CPT/HCPCS: 74018; 74177; 80053; 80306; 81001; 83690; 83735; 85025; 86140; 96361; 96374; 96375; 96376; 99284; J1170; J1630; J2060; J2405; J3490; J7030; Q9967

== ENCOUNTER 2021-12-13 11:26 | Outpatient (CLI) | payer MEDICARE, MEDICAID, SELFPAY ==
[2021-12-13 12:19] LABS: HIV 1 & 2 Antibody Non-Reactive (Non-Reactiv); HIV 1 & 2 Antigen Non-Reactive (Non-Reactiv)
[2021-12-13 12:35] LABS: Hepatitis B Core AB, Total Reactive (Nonreactive); Hepatitis B Surface AB 196.3 (11.5-1000); Hepatitis B Surface Antigen Non-Reactive (Nonreactive); Hepatitis C Virus Antibody Non-Reactive (Nonreactive)
[2021-12-16 13:28] LABS: Quantiferon Mitogen 9.96 IU/mL; Quantiferon Nil 0.02 IU/mL; Quantiferon TB Gold NEGATIVE (NEGATIVE)
== END 2021-12-13 11:27 | disposition home or self-care (01) ==
PROVIDERS: PCP Family Medicine; Visit Provider Dermatology
DX: L40.0 Psoriasis vulgaris (principal); L40.50 Arthropathic psoriasis, unspecified; Z79.899 Other long term (current) drug therapy
CPT/HCPCS: 86480; 86705; 86706; 86709; 86803; 87340; 87806

== ENCOUNTER 2022-01-21 03:58 | Observation (INO) | payer MEDICARE, MEDICAID, SELFPAY ==
[2022-01-21] VITALS (9 sets, daily range): BP systolic 132–163; BP diastolic 86–134; PULSE 93–117; RESP 16–24; TEMP 36.8–37.2; O2SAT 90–101; BMI 25.0; BMI 24.8
--- NOTE | 2022-01-21 03:59 | W.ED.NAVMDI ---
Documented by User: Rodolfo Grant MD 02/04/22 22:52 HPI - Nausea/Vomiting/Diarrhea General: Chief complaint: Nausea/Vomiting/Diarrhea Stated complaint: n/v/d Time Seen by Provider: 01/21/22 03:59 History of Present Illness: Ms. Mireles is a 51-year-old lady with complex past medical history including cannabinoid hyperemesis syndrome, marijuana abuse, hypertension, stroke, psychiatric disorder presenting to the emergency department due to abdominal pain. She reports onset of symptoms 2 days ago which woke her up from sleep with vomiting. She notes approximately 20 episodes of initially normal colored vomit however the past few times have had mild streaks of blood which she attributes to her throat being raw and forceful vomiting. She has noticed darker black stool than normal. Additionally she has noted generalized abdominal discomfort worse in the epigastric region. Symptoms are worse with palpation and movement however do not go away with rest. She does have a history of abdominal surgeries remotely and thinks 1 episode previously of GI bleed. No other specific changes in health, exacerbating, or alleviating factors identified. Onset (ago): day(s) Location of pain: Epigastric Pain consistency: constant Severity: moderate Quality: cramping and aching Relieving factors: none Review of Systems General: Reports: 10 or more systems reviewed and unremarkable except in HPI and below PFSH ED PFSH: Medical History Acute kidney injury Anxiety Cannabis dependence, uncomplicated CVA (cerebral vascular accident) Elevated troponin FH: cholecystectomy GI bleed High risk medication use Hypertension Major depressive disorder, recurrent, in partial remission Memory loss Plaque psoriasis Post-traumatic stress disorder, chronic Psoriatic arthritis Surgical History History of ankle surgery History of eye surgery History of hysterectomy History of pelvic surgery History of shoulder surgery History of toe surgery Family History Other CAD (coronary artery disease) Cancer Diabetes Hypertension Lung disease Social History Smoking and tobacco status: current some day smoker cigarettes Physical Exam Const: COMMON NORMALS: alert GENERAL APPEARANCE: cooperative and well developed HENMT: COMMON NORMALS: normocephalic and atraumatic HEAD & SCALP: normocephalic and atraumatic Eye: COMMON NORMALS: conjunctivae normal CONJUNCTIVA: Yes conjunctivae normal SCLERA: sclerae normal Neck/C-Spine: COMMON NORMALS: supple GENERAL: Yes trachea midline Resp: COMMON NORMALS: normal respiratory effort EFFORT & INSPECTION: Yes able to speak in complete sentences Cardio: COMMON NORMALS: regular rate and regular rhythm RATE: regular rate RHYTHM: regular rhythm GI: COMMON NORMALS: Soft to palpation PALPATION: Yes Soft to palpation, Yes Tenderness to palpation present (GI), No Guarding due to palpation present (GI) and No Rigid due to palpation PERCUSSION: normal to percussion Extremity: GENERAL: Yes normal exam except as noted and No edema Neuro: COMMON NORMALS: moves all extremities SENSORIUM/ORIENTATION: Yes alert and No Orientation impaired Psych: COMMON NORMALS: mental status grossly normal and Normal thought process present THOUGHT PROCESS: Normal thought process present Course ED course: - Patient was seen and evaluated by me at bedside - Patient placed on cardiac monitors, IV access obtained - Initial evaluation notable for exam as above - Labs personally interpreted by me - Analgesia and antiemetic ordered. Fluids ordered. - Labs notable for leukocytosis, mild hemoconcentration. Metabolic panel with evidence of dehydration - Patient care handed off to morning ED physician Dr. Schneider pending completion of ED evaluation including results of CT scan as well as reassessment of patient condition. Note: Click bubbles or prepopulated miguel in note writing are used for assistance with data collection and billing and are inherently more limited than narrative and other text portions of this note. Please use narrative for additional clinical history and defer to narrative/free test for any case of contradictory information. If information appears in only free text or click bubble it should be considered present or absent as reported. Please contact note specifications writer for clarifications of clinical information or contradictory information. MDM is a brief summary, contradictory or erroneous seeming information should be clarified and full note should be reviewed. Vital Signs: Vital signs: Vital Signs Temperature 98.9 F 01/22/22 18:29 Pulse Rate 90 01/22/22 18:29 Respiratory Rate 16 01/22/22 18:29 Blood Pressure 133/86 01/22/22 18:29 Pulse Oximetry 90 01/22/22 18:29 MDM - Nausea/Vomiting/Diarrhea Medical Decision Making 52-year-old lady with history of nausea and vomiting presenting with nausea and vomiting. Symptom treatment ordered. Labs notable for leukocytosis and dehydration. Handed off to morning ED physician pending completion of CT scan and reassessment of patient condition for disposition. Patient presents here with intractable vomiting patient given multiple meds she is continue to vomit she does have some dehydration along with leukocytosis likely from her vomiting spoke to hospitalist will admit at this time. Medical Records I reviewed the patient's medical records. Lab Data I reviewed the patient's lab results. : 01/22/22 04:59 01/22/22 04:59 Radiology Impressions Abdomen/Pelvis CT 01/21/22 05:36 IMPRESSION: Mildly patulous loops of small bowel are seen in the upper abdomen, which may reflect a mild localized ileus. COMMENTS: Consistent with the [employer]'s Incidental Findings Committee white paper (J Am Marga Radiol 2018): Any incidental renal lesion less than 1 cm or classified as too small to characterize, or any incidental cystic renal lesion characterized as simple-appearing, is likely benign. No follow-up imaging is recommended for these lesions per consensus recommendations based on imaging criteria. Chest X-Ray 01/21/22 14:00 IMPRESSION: NG tube terminates in the stomach. KUB X-Ray 01/22/22 06:00 IMPRESSION: 1. No acute abdominal process. Laboratory Results WBC 20.2 10^3/uL (4.0-10.0) H 01/21/22 04:49 RBC 4.95 10^6/uL (4.1-5.3) 01/21/22 04:49 Hgb 15.7 g/dL (11.5-15.3) H 01/21/22 04:49 Hct 44.9 % (37.0-47.0) 01/21/22 04:49 MCV 90.7 fl (81-99) 01/21/22 04:49 MCH 31.7 pg (28.0-34.0) 01/21/22 04:49 MCHC 35.0 g/dL (30.0-36.0) 01/21/22 04:49 RDW 14.7 % (12.1-15.1) 01/21/22 04:49 Plt Count 355 10^3/cmm (130-400) 01/21/22 04:49 MPV 10.9 fL (7.4-10.4) H 01/21/22 04:49 Neut % (Auto) 85.1 % 01/21/22 04:49 Lymph % (Auto) 6.4 % 01/21/22 04:49 [place] % (Auto) 7.9 % 01/21/22 04:49 Eos % (Auto) 0.0 % 01/21/22 04:49 Baso % (Auto) 0.1 % 01/21/22 04:49 Neut # (Auto) 17.18 10^3/uL (1.8-7.7) H 01/21/22 04:49 Lymph # (Auto) 1.3 10^3/uL (0.8-4.8) 01/21/22 04:49 [place] # (Auto) 1.6 10^3/uL (0.2-0.9) H 01/21/22 04:49 Eos # (Auto) 0.0 10^3/uL (0.0-0.8) 01/21/22 04:49 Baso # (Auto) 0.0 10^3/uL (0.0-0.1) 01/21/22 04:49 Nucleated RBC % (auto) 0 % 01/21/22 04:49 Nucleated RBCs # 0.0 /100WBC 01/21/22 04:49 PT 12.20 SECONDS (12.1-14.9) 01/21/22 08:05 INR 0.88 (0.8-1.2) 01/21/22 08:05 APTT 29.8 SECONDS (23.9-36.7) 01/21/22 08:05 Sodium 132 mmol/L (136-145) L 01/21/22 04:49 Potassium 4.0 mmol/L (3.5-5.1) 01/21/22 04:49 Chloride 83 mmol/L (98-107) L 01/21/22 04:49 Carbon Dioxide 31 mmol/L (22-29) H 01/21/22 04:49 Anion Gap 22.0 (5-19) H 01/21/22 04:49 BUN 21 mg/dL (6-20) H 01/21/22 04:49 Creatinine 1.5 mg/dL (0.5-0.9) H 01/21/22 04:49 GFR Calculation 36.3 mL/min (90-130) L 01/21/22 04:49 Glucose 140 mg/dL (65-115) H 01/21/22 04:49 Calculated Osmolality 279 mOsm/kg (285-295) L 01/21/22 04:49 Calcium 9.7 mg/dL (8.5-10.5) 01/21/22 04:49 Total Bilirubin 0.7 mg/dL (0.15-1.2) 01/21/22 04:49 AST 32 U/L (0-32) 01/21/22 04:49 ALT 17 U/L (0-33) 01/21/22 04:49 Alkaline Phosphatase 138 IU/L (35-105) H 01/21/22 04:49 Total Protein 9.0 g/dL (6.6-8.7) H 01/21/22 04:49 Albumin 5.3 g/dL (3.5-5.2) H 01/21/22 04:49 Globulin 3.7 g/dL (1.3-4.6) 01/21/22 04:49 Lipase 22 U/L (13-60) 01/21/22 04:49 Discharge Plan Discharge Patient Disposition: Admitted As Inpatient Admit Provider: Tania Peck Clinical Impression: Nausea and vomiting, Dehydration, Abdominal pain, Leukocytosis Condition: Stable Discharge Diet: Advance as tolerated and Clear Liquid Discharge Activity: Increase activity as tolerated Coding Level of Care Code ED Colored Leather Setter for Chg Fwd Exam Comprehensive Documented by User: Rianna Schneider MD 01/21/22 08:58 HPI - Nausea/Vomiting/Diarrhea General: Chief complaint: Nausea/Vomiting/Diarrhea Stated complaint: n/v/d Time Seen by Provider: 01/21/22 03:59 PFSH ED PFSH: Medical History Acute kidney injury Anxiety Cannabis dependence, uncomplicated CVA (cerebral vascular accident) Elevated troponin FH: cholecystectomy GI bleed High risk medication use Hypertension Major depressive disorder, recurrent, in partial remission Memory loss Plaque psoriasis Post-traumatic stress disorder, chronic Psoriatic arthritis Surgical History History of ankle surgery History of eye surgery History of hysterectomy History of pelvic surgery History of shoulder surgery History of toe surgery Family History Other CAD (coronary artery disease) Cancer Diabetes Hypertension Lung disease Social History Smoking and tobacco status: current some day smoker cigarettes Course Vital Signs: Vital signs: Vital Signs Temperature 98.9 F 01/22/22 18:29 Pulse Rate 90 01/22/22 18:29 Respiratory Rate 16 01/22/22 18:29 Blood Pressure 133/86 01/22/22 18:29 Pulse Oximetry 90 01/22/22 18:29 MDM - Nausea/Vomiting/Diarrhea Medical Decision Making Patient presents here with intractable vomiting patient given multiple meds she is continue to vomit she does have some dehydration along with leukocytosis likely from her vomiting spoke to hospitalist will admit at this time. Lab Data : 01/22/22 04:59 01/22/22 04:59 Radiology Impressions Abdomen/Pelvis CT 01/21/22 05:36 IMPRESSION: Mildly patulous loops of small bowel are seen in the upper abdomen, which may reflect a mild localized ileus. COMMENTS: Consistent with the [employer]'s Incidental Findings Committee white paper (J Am Marga Radiol 2018): Any incidental renal lesion less than 1 cm or classified as too small to characterize, or any incidental cystic renal lesion characterized as simple-appearing, is likely benign. No follow-up imaging is recommended for these lesions per consensus recommendations based on imaging criteria. Chest X-Ray 01/21/22 14:00 IMPRESSION: NG tube terminates in the stomach. KUB X-Ray 01/22/22 06:00
[2022-01-21] MEDS: ondansetron 2 mg/ML SDV 2 mL 4 MG IVP ×3 (04:53→20:30)
[2022-01-21] MEDS: haloperidol inj 5 mg/mL INJ 1 mL 2.5 MG IVP (04:53)
[2022-01-21] MEDS: morphine 4 mg/mL SDV 1 mL IVP (04:53)
[2022-01-21 05:01] LABS: Basophils % 0.1 %; Hematocrit 44.9 % (37.0-47.0); Hemoglobin 15.7 g/dL (11.5-15.3); Lymphocytes # 1.3 10^3/uL (0.8-4.8); Lymphocytes % 6.4 %; Mean Corpuscular Hemoglobin 31.7 pg (28.0-34.0); Mean Corpuscular Volume 90.7 fl (81-99); Mean Platelet Volume 10.9 fL (7.4-10.4); Monocytes # 1.6 10^3/uL (0.2-0.9); Monocytes % 7.9 %; Neutrophils # 17.18 10^3/uL (1.8-7.7); Neutrophils % 85.1 %; Nucleated Red Blood Cells % 0 %; Platelet Count 355 10^3/cmm (130-400); Red Blood Count 4.95 10^6/uL (4.1-5.3); Red Cell Distribution Width 14.7 % (12.1-15.1); White Blood Count 20.2 10^3/uL (4.0-10.0)
--- NOTE | 2022-01-21 05:14 | ECG_ITS ---
[facility] Test Date: 2022-01-21 Pat Name: Rachelle Mireles Department: Room: Gender: Female Line Assigner: : 1970 Requested By: Rodolfo Grant Order Number: [id number] Michael MD: Harsha Felipe M.D. Measurements Intervals [place] Rate: 85 P: 54 SC: 108 QRS: 45 QRSD: 95 T: 53 QT: 303 QTc: 361 Interpretive Statements SINUS RHYTHM WITH SHORT SC INTERVAL NONSPECIFIC ST & T-WAVE ABNORMALITY Compared to ECG 10/30/2021 04:55:01 T-wave abnormality now present ST (T wave) deviation no longer present Prolonged QT interval no longer present Electronically Signed On 01-21-2022 12:13:35 CDT by Harsha Felipe M.D. [id number]
[2022-01-21 05:21] LABS: Alanine Aminotransferase 17 U/L (0-33); Albumin Level 5.3 g/dL (3.5-5.2); Alkaline Phosphatase 138 IU/L (35-105); Blood Urea Nitrogen 21 mg/dL (6-20); Calcium 9.7 mg/dL (8.5-10.5); Carbon Dioxide 31 mmol/L (22-29); Chloride 83 mmol/L (98-107); Globulin 3.7 g/dL (1.3-4.6); Glomerular Filtration Rate 36.3 mL/min (90-130); Glucose 140 mg/dL (65-115); Lipase 22 U/L (13-60); Osmolality Calculated 279 mOsm/kg (285-295); Sodium 132 mmol/L (136-145); Total Bilirubin 0.7 mg/dL (0.15-1.2)
[2022-01-21 05:29] LABS: Aspartate Amino Transferase 32 U/L (0-32)
--- NOTE | 2022-01-21 05:36 | CTR_ITS ---
PROCEDURE INFORMATION: Exam: CT Abdomen And Pelvis Without Contrast Exam date and time: 01/21/2022 6:15 AM Age: 51 years old Clinical indication: Abdominal pain; Epigastric; Prior surgery; Surgery type: Gb, appy; Additional info: N/v/d, epigastric abd pain TECHNIQUE: Imaging protocol: Computed tomography of the abdomen and pelvis without contrast. Radiation optimization: All CT scans at this facility use at least one of these dose optimization techniques: automated exposure control; mA and/or kV adjustment per patient size (includes targeted exams where dose is matched to clinical indication); or iterative reconstruction. COMPARISON: CT abdomen pelvis w con* [id number] 12/02/2021 12:28 AM RADIATION DOSE METRICS: Total DLP (mGy-cm): 1087.52 FINDINGS: Liver: Normal. No mass. Gallbladder and bile ducts: Cholecystectomy. Pancreas: Normal. No ductal dilation. Spleen: Normal. No splenomegaly. Adrenal glands: Low-density thickening of the left adrenal gland. Kidneys and ureters: Left renal cysts. No hydronephrosis. Stomach and bowel: Mildly patulous loops of small bowel are seen in the upper abdomen. No discrete transition point is seen. Appendix: No evidence of appendicitis. Intraperitoneal space: Unremarkable. No free air. No significant fluid collection. Vasculature: Mild burden of atherosclerotic plaque in the abdominal aorta and branch vessels. No aneurysm. Lymph nodes: Unremarkable. No enlarged lymph nodes. Urinary bladder: Unremarkable as visualized. Reproductive: Hysterectomy. Bones/joints: Status post ORIF of remote pelvic fractures. Soft tissues: Unremarkable. CT/CT abdomen pelvis wo con [id number] IMPRESSION: Mildly patulous loops of small bowel are seen in the upper abdomen, which may reflect a mild localized ileus. COMMENTS: Consistent with the [employer]'s Incidental Findings Committee white paper (J Am Marag Radiol 2018): Any incidental renal lesion less than 1 cm or classified as too small to characterize, or any incidental cystic renal lesion characterized as simple-appearing, is likely benign. No follow-up imaging is recommended for these lesions per consensus recommendations based on imaging criteria.
[2022-01-21] MEDS: LORazepam 2 mg/mL INJ 1 mL 1 MG IVP (06:55)
[2022-01-21] MEDS: diphenhydrAMINE 50 mg/mL SDV 1mL IVP (06:55)
[2022-01-21] MEDS: metoclopramide 5 mg/mL SDV 2 mL 10 MG IVP (06:56)
[2022-01-21 08:20] LABS: INR 0.88 (0.8-1.2)
[2022-01-21 08:21] LABS: Partial Thromboplastin Time 29.8 SECONDS (23.9-36.7)
[2022-01-21] MEDS: sodium chloride 0.9% 1,000 ML 999 ML IV (08:27)
--- NOTE | 2022-01-21 08:45 | PC.NURSE ---
Notified Physician Pt started to have another episodes of dry heaves and vomiting. Hr increased ranges from 120s to 130s, ST. BP is elevated due to dry heaves. notified and have decided to cancel discharge order and keep pt in hospital for obs.
[2022-01-21] MEDS: LORazepam 2 mg/mL INJ 1 mL IVP (09:02)
--- NOTE | 2022-01-21 10:00 | PC.NURSE ---
report given to christiano cool. hand-off cares to her. informed nurse on meds given in ER and vs.
--- NOTE | 2022-01-21 10:28 | PC.NURSE ---
hr: 97 o2: 93 room air temp: 98.6 oral bp: 139/95 rr: 18
--- NOTE | 2022-01-21 10:31 | PC.NURSE ---
Transferred pt to med surg in room 273 via stretcher. belonging sent w/pt such as cellphone and t-shirt.
--- NOTE | 2022-01-21 11:47 | PM.HP ---
Providers/Chief Complaint Admitting Physician: Tania Peck MD Primary Care Provider: Bucky Rogers MD Chief Complaint: n/v/d History of Present Illness Rachelle Mireles is a 51 year old female who has extensive history of psoriatic arthritis, PTSD, hematemesis, dark stools, NSAID induced gastritis, depression, presented today with chief complaint of recurrent nausea vomiting. Patient is stating that yesterday she had [employer] food, around 4 AM she woke up with abdominal pain which was followed by recurrent episode of emesis, because of worsening of her symptoms she decided to come to the hospital for further evaluation. Patient is not endorsing recent use of antibiotics, fever, chest pain or shortness of breath. Patient is stating that she lives alone and has contacted her family regarding her hospitalization, she has previous history of recurrent emesis as well. She is endorsing to marijuana use. In the ER she was diagnosed with ileus, he has signs of dehydration with LEVY, severe leukocytosis no active signs of sepsis In the ER she received Reglan, Zofran, lorazepam and Haldol however her emesis has not improved I would request drug screen, check hemoglobin A1c, start IV fluids, I have requested NG tube placement for her ileus CT abdomen pelvis consistent with ileus. Review of Systems Const: Reports: chills, body aches and diaphoresis Eyes: Denies: change in vision ENMT: Denies: throat pain Card: Denies: chest pain Resp: Denies: dyspnea GI: Reports: abdominal pain, nausea and vomiting : Denies: flank pain Musc: Denies: neck pain Skin/Breast: Denies: rash Neuro: Denies: headache(s) Psych: Reports: anxiety and depression Endo: Denies: polyuria Ba/Lymph: Denies: easy bruising All/Imm: Denies: urticaria Medications/Allergies Home Medications Medication Instructions Recorded Confirmed Last Taken Type duloxetine 60 mg capsule,delayed 60 mg PO BID #60 cap 02/15/20 01/21/22 09/20/21 Rx release (Cymbalta) multivitamin (Daily Multi-Vitamin) 1 tab PO DAILY 04/20/20 01/21/22 09/20/21 History albuterol sulfate 90 mcg/actuation 1 - 2 puff INHALATION QID PRN 07/13/21 01/21/22 2 Weeks Ago History aerosol inhaler (Ventolin HFA) ~09/07/21 baclofen 20 mg tablet 20 mg PO TID PRN 07/13/21 01/21/22 2 Weeks Ago History ~09/07/21 amlodipine 2.5 mg tablet 2.5 mg PO DAILY 09/04/21 01/21/22 09/20/21 History ascorbic acid (vitamin C) 500 mg 500 mg PO DAILY 09/04/21 01/21/22 09/20/21 History tablet (Vitamin C) ketoconazole 2 % shampoo 1 applic TOPICAL Q7D 09/04/21 01/21/22 2 Weeks Ago History ~09/07/21 pantoprazole 40 mg tablet,delayed 40 mg PO BID 09/04/21 01/21/22 09/20/21 History release metoprolol tartrate 25 mg tablet 25 mg PO BID #180 tab 10/24/21 01/21/22 Unknown Rx aspirin 81 mg tablet,delayed 81 mg PO DAILY #30 tab 11/10/21 01/21/22 Unknown Rx release ondansetron 4 mg disintegrating 4 mg PO Q8H PRN #12 tab 12/02/21 01/21/22 Unknown Rx tablet cholecalciferol (vitamin D3) 125 5,000 unit PO DAILY 01/21/22 01/21/22 Unknown History mcg (5,000 unit) tablet (Vitamin D3) lisinopril 20 0.5 tab PO DAILY 01/21/22 01/21/22 Unknown History mg-hydrochlorothiazide 25 mg tablet pregabalin 75 mg capsule 75 mg PO BID 01/21/22 01/21/22 Unknown History risankizumab-rzaa 150 mg/mL 150 mg SUBCUT .EVERY 12 WEEKS 01/21/22 01/21/22 Unknown History subcutaneous pen injector (Skyrizi) Allergies Allergy/AdvReac Type Severity Reaction Status Date / Time adhesive tape Allergy Intermediate rash, red Verified 12/11/21 09:34 codeine Allergy ALGY-Anaphy Verified 12/11/21 09:34 laxis paroxetine [From Paxil] Allergy Unconscious Verified 12/11/21 09:34 PFSH Acute PFSH: Medical History Acute kidney injury Anxiety Cannabis dependence, uncomplicated CVA (cerebral vascular accident) Elevated troponin FH: cholecystectomy GI bleed High risk medication use Hypertension Major depressive disorder, recurrent, in partial remission Memory loss Plaque psoriasis Post-traumatic stress disorder, chronic Psoriatic arthritis Surgical History History of ankle surgery History of eye surgery History of hysterectomy History of pelvic surgery History of shoulder surgery History of toe surgery Family History Other CAD (coronary artery disease) Cancer Diabetes Hypertension Lung disease Social History Smoking and tobacco status: current some day smoker cigarettes Substance/Drug Use: current Substance/Drug use type: Marijuana Vitals/I&O/Wt Last Vital Signs Temp 98.9 F 01/21/22 08:31 Pulse 105 H 01/21/22 09:45 Resp 24 H 01/21/22 04:53 BP 132/86 01/21/22 09:45 Pulse Ox 90 01/21/22 09:45 Weight last 48 hrs Weight 69.853 kg Weight 70.307 kg Physical Exam Narrative: Patient is in distress because of abdominal pain No active emesis Clinical looks dehydrated Flat affect No active neurological deficits S1, S2 Signs of dehydration Saturating well on room air Abdomen soft to palpation no signs of guarding rigidity or peritonitis Lower extremity no edema Multiple skin tattoos Data : 01/21/22 04:49 01/21/22 04:49 A&P Assessment and plan (1) Nausea and vomiting: Status: Acute (2) Dehydration: Status: Acute (3) Abdominal pain: Status: Acute Plan Recurrent emesis History of cyclical vomiting Marijuana abuse CT abdomen pelvis consistent with ileus IV fluid hydration NG tube placement No active signs of sepsis however leukocytosis noted, it could be stress leukemoid reaction Check hemoglobin A1c level Placed NG tube to low intermittent suction Protonix 40 IV twice daily Patient endorsing dark-colored stool She does have history of NSAID induced gastritis Check H&H tomorrow his hemoglobin could be hemoconcentrated Acute on chronic kidney disease related to dehydration, hold lisinopril and hydrochlorothiazide, anticipating provement with IV fluid hydration She is full code N.p.o. DVT prophylaxis Heparin Attestations Medical Necessity Statement*: Discharge within 48 hours need treatment for ileus, signs of dehydration present, LEVY Time Spent in Patient Care: 40mins Coding Level of Care Code Acute Blocking Machine Tender for Chg Fwd Diagnoses Nausea and vomiting R11.2 Dehydration E86.0 Abdominal pain R10.9
--- NOTE | 2022-01-21 12:25 | PC.NURSE ---
hr: 103 temp: 99.5 oral o2: 91 room air rr: 18 bp: 142/97
--- NOTE | 2022-01-21 14:00 | XRR_ITS ---
PROCEDURE INFORMATION: Exam: XR Chest Exam date and time: 01/21/2022 3:07 PM Age: 51 years old Clinical indication: Device placement; Ng tube TECHNIQUE: Imaging protocol: XR of the chest. Views: 1 view. COMPARISON: CR XR chest 1V portable [id number] 10/29/2021 11:35 PM FINDINGS: Tubes, catheters and devices: NG tube terminates in the stomach. Lungs: No consolidation. Pleural spaces: No pleural effusion. No pneumothorax. Heart/Mediastinum: No cardiomegaly. Bones/joints: Visualized osseous structures are intact. XR/XR chest 1V portable [id number] IMPRESSION: NG tube terminates in the stomach.
[2022-01-21] MEDS: dextrose 5%-lactated ringers 1,000 ML 30 ML IV (14:11)
[2022-01-21] MEDS: heparin 5,000 unit/mL INJ 1 mL 5000 UNIT SUBCUT (14:14)
[2022-01-21] MEDS: morphine 4 mg/mL SDV 1 mL 2 MG IVP ×2 (15:06→20:52)
--- NOTE | 2022-01-21 15:56 | PC.NURSE ---
bp: 145/98 o2: 91 room air hr: 109 temp: 98.9 oral rr: 18
[2022-01-21] MEDS: pantoprazole 40 mg SDV IVP (17:20)
--- NOTE | 2022-01-21 22:49 | PC.NURSE ---
This RN entered patients room at this time drinking out of sink in room. Patient educated on reason why she is NPO and unable to have anything by mouth due to having an NG tube hooked up to low intermittent suction. Patient voiced understanding.
[2022-01-22] VITALS (8 sets, daily range): BP systolic 133–201; BP diastolic 86–146; PULSE 90–129; RESP 16–20; TEMP 36.8–37.4; O2SAT 90–96
[2022-01-22] MEDS: ondansetron 2 mg/ML SDV 2 mL 4 MG IVP ×3 (00:49→13:10)
[2022-01-22] MEDS: lanolin oint 7 gm 1 APPLIC TOPICAL (00:49)
[2022-01-22] MEDS: heparin 5,000 unit/mL INJ 1 mL 5000 UNIT SUBCUT ×2 (00:50→13:10)
[2022-01-22] MEDS: morphine 4 mg/mL SDV 1 mL 2 MG IVP ×4 (00:52→14:11)
[2022-01-22] MEDS: hyDRALAzine 20 mg/mL INJ 1 mL 10 MG IVP (01:10)
[2022-01-22] MEDS: phenol oral Spray 177 mL 3 SPRAY MUCOUS MEM (01:11)
[2022-01-22 01:43] LABS: Amphetamines Screen Urine Negative (Negative); Barbiturates Screen Urine Negative (Negative); Benzodiazepines Screen Urine Positive (Negative); Cocaine Screen Urine Negative (Negative); Opiate Screen Urine Positive (Negative); PCP Screen Urine Negative (Negative); THC Screen Urine Positive (Negative)
--- NOTE | 2022-01-22 02:30 | PC.NURSE ---
Patient observed drinking out of sink again at this time. Explained again to patient the importannce of remaining NPO. Patient not following instructions.
[2022-01-22] MEDS: dextrose 5%-lactated ringers 1,000 ML 30 ML IV (02:42)
[2022-01-22] MEDS: promethazine 25 mg/mL SDV 1 mL IM (04:19)
[2022-01-22 05:39] LABS: Basophils % 0.1 %; Eosinophils % 0.1 %; Hematocrit 47.3 % (37.0-47.0); Hemoglobin 15.8 g/dL (11.5-15.3); Lymphocytes # 1.2 10^3/uL (0.8-4.8); Lymphocytes % 8.9 %; Mean Corpuscular HGB Conc 33.4 g/dL (30.0-36.0); Mean Corpuscular Volume 95.7 fl (81-99); Mean Platelet Volume 10.4 fL (7.4-10.4); Monocytes % 7.8 %; Neutrophils # 10.97 10^3/uL (1.8-7.7); Neutrophils % 82.5 %; Nucleated Red Blood Cells % 0 %; Platelet Count 360 10^3/cmm (130-400); Red Blood Count 4.94 10^6/uL (4.1-5.3); White Blood Count 13.3 10^3/uL (4.0-10.0)
--- NOTE | 2022-01-22 06:00 | XR_ITS ---
WS: [id number] Exam: XR KUB portable [id number] Date/Time of Exam: 01/22/2022 5:41 AM Reason For Exam: ileus No bowel obstruction or free air. An enteric tube is in place ending in the body the stomach. Signs o f prior cholecystectomy. Hardware noted in the right and left pelvis. Surgical clip in the right lowe r quadrant of the abdomen. No sign of organ enlargement. Normal bowel gas pattern. Old pelvic fractur es. XR/XR KUB portable [id number] IMPRESSION: 1. No acute abdominal process.
[2022-01-22 06:01] LABS: Anion Gap 20.7 (5-19); Blood Urea Nitrogen 35 mg/dL (6-20); Carbon Dioxide 35 mmol/L (22-29); Chloride 79 mmol/L (98-107); Glomerular Filtration Rate 22.2 mL/min (90-130); Glucose 141 mg/dL (65-115); Magnesium 1.8 mg/dL (1.7-2.3); Osmolality Calculated 284 mOsm/kg (285-295); Sodium 132 mmol/L (136-145)
[2022-01-22 06:06] LABS: Lactate (Lactic Acid level) 1.8 mmol/L (0.5-2.2); Potassium 2.7 mmol/L (3.5-5.1)
[2022-01-22] MEDS: potassium chloride premix 100 ML 50 MEQ IV ×3 (06:27→13:12)
[2022-01-22] MEDS: pantoprazole 40 mg SDV IVP (09:25)
--- NOTE | 2022-01-22 09:38 | PC.NURSE ---
During AM assessment patient stated that she had black diarrhea overnight however there is no documentation that she had any BM's overnight, and it was not passed along in verbal report.
--- NOTE | 2022-01-22 14:37 | P.DS_ITS ---
Discharge Providers Date of Admission: 01/21/22 10:22 Date of Discharge: January 22, 2022 Attending Provider at Admission: Tania Peck MD Attending Provider at Discharge: Kendrick Perez MD Primary Care Provider: Bucky Rogers MD Diagnoses at Discharge Discharge Diagnosis (1) Nausea and vomiting: Status: Acute (2) Dehydration: Status: Acute (3) Abdominal pain: Status: Acute Reason for Visit Reason for Visit: n/v/d Hospital Course Hospital Course 51 year old female who has extensive history of psoriatic arthritis, PTSD, hematemesis, dark stools, NSAID induced gastritis, depression, presented today with chief complaint of recurrent nausea vomiting.? She was admitted for the management of: Ileus, as well as Pre renal LEVY on CKD, likely secondary to dehydration secondary to vomiting. Patient was managed conservatively with NG tube, IV hydration, Antiemetics, to which she responded well, at the time of discharge nausea vomiting was improving, She tolerated clear liquid diets. For her LEVY, she has been asked to keep herself well-hydrated, Lisinopril hydrochlorothiazide has been kept on hold on discharge. She will follow-up with her primary care physician with repeat BMP in 1 week, for evaluation of her kidney function. Overall patient has responded well to above medical management and is being discharged in stable condition to home. She will continue to follow with her primary care physician in 1 week Physical Exam Const: COMMON NORMALS: patient oriented x3 HENMT: COMMON NORMALS: normocephalic and atraumatic HEAD & SCALP: normocephalic and atraumatic Chest: COMMONS NORMALS: normal inspection of the chest and normal palpation of entire chest wall CHEST: Yes Symmetrical chest wall rise Resp: COMMON NORMALS: normal respiratory effort, No retractions, No use of accessory muscles and clear to auscultation bilaterally EFFORT & INSPECTION: Yes symmetric chest movement AUSCULTATION: clear to auscultation bilaterally Cardio: COMMON NORMALS: regular rate, regular rhythm, S1 normal heart sound present, S2 normal heart sound present, No gallops present (Cardio), No murmurs present (Cardio), No rub (Cardio) and Peripheral pulses 2+ throughout RATE: regular rate RHYTHM: regular rhythm HEART SOUNDS: S1 normal heart sound present and S2 normal heart sound present PERIPHERAL PULSES: Peripheral pulses 2+ throughout GI: COMMON NORMALS: Normal to inspection, nondistended, normoactive bowel sounds present, Soft to palpation, non-tender, No hepatosplenomegaly present and no masses AUSCULTATION: Yes normoactive bowel sounds PALPATION: Yes Soft to palpation and Yes No hepatosplenomegaly present RECTAL EXAM: deferred Extremity: COMMON NORMALS: no clubbing, cyanosis or edema and no pedal edema Neuro: COMMON NORMALS: patient oriented x3 Discharge Data Studies Completed and Pending Completed Studies During Hospitalization Category Date Time Status CT abdomen pelvis wo con [id number] Stat Cat Scan 01/21/22 05:36 Completed XR KUB portable [id number] Routine Exams 01/22/22 06:00 Completed XR chest 1V portable [id number] Routine Exams 01/21/22 14:00 Completed Pending at discharge Category Date Time Status BMP [Basic Metabolic Panel] AM LABS Lab 01/23/22 04:00 Ordered CBC Auto Diff [Complete Blood Count w/Auto] AM LABS Lab 01/23/22 04:00 Ordered Radiology Impressions Abdomen/Pelvis CT 01/21/22 05:36 IMPRESSION: Mildly patulous loops of small bowel are seen in the upper abdomen, which may reflect a mild localized ileus. COMMENTS: Consistent with the [employer]'s Incidental Findings Committee white paper (J [employer] Marga Radiol 2018): Any incidental renal lesion less than 1 cm or classified as too small to characterize, or any incidental cystic renal lesion characterized as simple-appearing, is likely benign. No follow-up imaging is recommended for these lesions per consensus recommendations based on imaging criteria. Chest X-Ray 01/21/22 14:00 IMPRESSION: NG tube terminates in the stomach. KUB X-Ray 01/22/22 06:00 IMPRESSION: 1. No acute abdominal process. Laboratory Results WBC 13.3 10^3/uL (4.0-10.0) H 01/22/22 04:59 RBC 4.94 10^6/uL (4.1-5.3) 01/22/22 04:59 Hgb 15.8 g/dL (11.5-15.3) H 01/22/22 04:59 Hct 47.3 % (37.0-47.0) H 01/22/22 04:59 MCV 95.7 fl (81-99) D 01/22/22 04:59 MCH 32.0 pg (28.0-34.0) 01/22/22 04:59 MCHC 33.4 g/dL (30.0-36.0) 01/22/22 04:59 RDW 15.0 % (12.1-15.1) 01/22/22 04:59 Plt Count 360 10^3/cmm (130-400) 01/22/22 04:59 MPV 10.4 fL (7.4-10.4) 01/22/22 04:59 Neut % (Auto) 82.5 % 01/22/22 04:59 Lymph % (Auto) 8.9 % 01/22/22 04:59 [place] % (Auto) 7.8 % 01/22/22 04:59 Eos % (Auto) 0.1 % 01/22/22 04:59 Baso % (Auto) 0.1 % 01/22/22 04:59 Neut # (Auto) 10.97 10^3/uL (1.8-7.7) H 01/22/22 04:59 Lymph # (Auto) 1.2 10^3/uL (0.8-4.8) 01/22/22 04:59 [place] # (Auto) 1.0 10^3/uL (0.2-0.9) H 01/22/22 04:59 Eos # (Auto) 0.0 10^3/uL (0.0-0.8) 01/22/22 04:59 Baso # (Auto) 0.0 10^3/uL (0.0-0.1) 01/22/22 04:59 Nucleated RBC % (auto) 0 % 01/22/22 04:59 Nucleated RBCs # 0.0 /100WBC 01/22/22 04:59 PT 12.20 SECONDS (12.1-14.9) 01/21/22 08:05 INR 0.88 (0.8-1.2) 01/21/22 08:05 APTT 29.8 SECONDS (23.9-36.7) 01/21/22 08:05 Sodium 132 mmol/L (136-145) L 01/22/22 04:59 Potassium 2.7 mmol/L (3.5-5.1) L* 01/22/22 04:59 Chloride 79 mmol/L (98-107) L 01/22/22 04:59 Carbon Dioxide 35 mmol/L (22-29) H 01/22/22 04:59 Anion Gap 20.7 (5-19) H 01/22/22 04:59 BUN 35 mg/dL (6-20) H 01/22/22 04:59 Creatinine 2.3 mg/dL (0.5-0.9) H 01/22/22 04:59 GFR Calculation 22.2 mL/min (90-130) L 01/22/22 04:59 Glucose 141 mg/dL (65-115) H 01/22/22 04:59 Calculated Osmolality 284 mOsm/kg (285-295) L 01/22/22 04:59 Lactate 1.8 mmol/L (0.5-2.2) 01/22/22 04:59 Calcium 9.0 mg/dL (8.5-10.5) 01/22/22 04:59 Magnesium 1.8 mg/dL (1.7-2.3) 01/22/22 04:59 Total Bilirubin 0.7 mg/dL (0.15-1.2) 01/21/22 04:49 AST 32 U/L (0-32) 01/21/22 04:49 ALT 17 U/L (0-33) 01/21/22 04:49 Alkaline Phosphatase 138 IU/L (35-105) H 01/21/22 04:49 Total Protein 9.0 g/dL (6.6-8.7) H 01/21/22 04:49 Albumin 5.3 g/dL (3.5-5.2) H 01/21/22 04:49 Globulin 3.7 g/dL (1.3-4.6) 01/21/22 04:49 Lipase 22 U/L (13-60) 01/21/22 04:49 Urine Opiates Screen Positive ng/mL (Negative) H 01/22/22 01:20 Ur Barbiturates Screen Negative ng/mL (Negative) 01/22/22 01:20 Ur Phencyclidine Scrn Negative ng/mL (Negative) 01/22/22 01:20 Ur Amphetamines Screen Negative ng/mL (Negative) 01/22/22 01:20 U Benzodiazepines Scrn Positive ng/mL (Negative) H 01/22/22 01:20 Urine Cocaine Screen Negative ng/mL (Negative) 01/22/22 01:20 U Marijuana (THC) Screen Positive ng/mL (Negative) H 01/22/22 01:20 Vitals Last Vital Signs Temp 98.2 F 01/22/22 11:34 Pulse 98 01/22/22 11:34 Resp 16 01/22/22 11:34 BP 155/96 01/22/22 11:34 Pulse Ox 94 01/22/22 11:34 Discharge Plan Discharge Patient Disposition: Home Condition: Stable Prescriptions: Continued aspirin 81 mg tablet,delayed release (DR/EC) 81 mg PO DAILY Qty: 30 6RF multivitamin [Daily Multi-Vitamin] Tablet 1 tab PO DAILY 0RF Cymbalta 60 mg capsule,delayed release(DR/EC) 60 mg PO BID Qty: 60 0RF metoprolol tartrate 25 mg tablet 25 mg PO BID Qty: 180 3RF baclofen 20 mg Tablet 20 mg PO TID PRN (Reason: Muscle Spasm) 0RF albuterol sulfate [Ventolin HFA] 90 mcg/actuation Hfa Aerosol Inhaler 1 - 2 puff INHALATION QID PRN (Reason: Shortness Of Breath) 0RF amlodipine 2.5 mg tablet 2.5 mg PO DAILY 0RF pantoprazole 40 mg tablet,delayed release (DR/EC) 40 mg PO BID 0RF ketoconazole 2 % shampoo 1 applic topical Q7D 0RF Rx Instructions: Lather into scalp 1 time weekly. Allow to sit on scalp for 5 minutes before rinsing. ascorbic acid (vitamin C) [Vitamin C] 500 mg Tablet 500 mg PO DAILY 0RF pregabalin 75 mg capsule 75 mg PO BID 0RF Vitamin D3 125 mcg (5,000 unit) tablet 5,000 unit PO DAILY 0RF Skyrizi 150 mg/mL pen injector 150 mg SUBCUT .EVERY 12 WEEKS 0RF ondansetron 4 mg tablet,disintegrating 4 mg PO Q8H PRN (Reason: Nausea And Vomiting) 14 Days Qty: 25 0RF Held lisinopril-hydrochlorothiazide 20-25 mg Tablet 0.5 tab PO DAILY 0RF Hold Instructions: Resume on 01/29/22. Discharge Orders: Discharge Order (Routine); Ordered 01/22/22 Ordered By: Kendrick Perez Other Ambulatory Orders: Basic Metabolic Panel (Routine) Timeframe: 1 Week Facility: [facility] - Location: Lab - Main Lab Ordered By: Kendrick Perez Referrals: Bucky Rogers MD [Primary Care Provider] - 01/30/22 3:00 pm Discharge Diet: Advance as tolerated and Clear Liquid Discharge Activity: Increase activity as tolerated Patient Instructions: Dehydration (ED), Acute Nausea and Vomiting (ED), Abdominal Pain (ED), Opioid Safety Activity Restrictions/Additional Instructions: Thank you for visiting the emergency department. You were seen and evaluated for abdominal pain, nausea, vomiting. The exact cause of your symptoms is unclear though likely related to your chronic symptoms. You were found to be dehydrated. Please ensure that you are staying hydrated. Please continue your medications. These follow-up with your primary care provider. Please return to the emergency department for worsening symptoms, inability to tolerate oral intake, or anything else that you are concerned about and feel needs emergency department evaluation. Discharge Attestations Time Spent in Discharge Care*: less than 30 min Status at Discharge: Cognitive status at discharge: cognitively intact , Behavioral status at discharge: cooperative , Functional status at discharge: independent ambulation , Overall status at discharge: patient is back to baseline Quality Metrics Clinical Quality Measures [ No reported AMI, CVA or VTE this stay] Coding Level of Care Code Acute Chg FW DC note Diagnoses Nausea and vomiting R11.2 Dehydration E86.0 Abdominal pain R10.9
--- NOTE | 2022-01-22 18:28 | PC.NURSE ---
patient verbalized understanding of discharge instructions, medications, and follow up appointments.
== END 2022-01-22 18:29 | disposition home or self-care (01) ==
LOC: ER 08:50 → MEDSURG 10:42
PROVIDERS: Emergency Medicine; Admitting Provider Internal Medicine; Emergency Provider Emergency Medicine; PCP Family Medicine; Visit Provider Internal Medicine
DX: R11.2 Nausea with vomiting, unspecified (principal); E86.0 Dehydration; E10.9 Type 1 diabetes mellitus without complications; F41.9 Anxiety disorder, unspecified; Z86.73 Personal history of transient ischemic attack (TIA), and cerebral infarction without residual deficits; I10 Essential (primary) hypertension; F17.210 Nicotine dependence, cigarettes, uncomplicated; N17.9 Acute kidney failure, unspecified
CPT/HCPCS: 36415; 51702; 71045; 74018; 74176; 80048; 80053; 80306; 83605; 83690; 83735; 85025; 85610; 85730; 93005; 96365; 96366; 96372; 96375; 96376; 99285; C9113; G0378; J0360; J1200; J1630; J1644; J2060; J2270; J2405; J2550; J2765; J3480; J7030

== ENCOUNTER 2022-02-13 03:52 | Emergency (ER) | payer MEDICARE, MEDICAID, SELFPAY ==
[2022-02-13 03:55] VITALS: BP 196/115; PULSE 60; RESP 20; TEMP 36.4; O2SAT 99; BMI 25.8
--- NOTE | 2022-02-13 03:58 | ED_ITS ---
HPI - Nausea/Vomiting/Diarrhea General: Chief complaint: Abdominal Pain Stated complaint: n/v Time Seen by Provider: 02/13/22 03:54 Source: patient and EMS Mode of arrival: EMS Limitations: no limitations History of Present Illness: 52-year-old female who has been seen here multiple times for intractable vomiting. She states she has been having vomiting over the last 6 hours and states she is not able to stop vomiting. She has vomited multiple times and feeling severely nauseous. She does have abdominal cramping she rates a 4 out of 10. Denies any fevers denies any worsening improving factors. Denies any diarrhea. Denies any blood in her vomit. Associated nausea: Yes Associated symtoms: Reports nausea; Denies chest pain, dysuria or headache(s) Review of Systems Const: Denies: fever(s), chills, body aches or change in appetite Eyes: Denies: blurry vision or eye discomfort ENMT: Denies: throat pain or dental pain Card: Denies: chest pain Resp: Denies: dyspnea GI: Reports: nausea and vomiting : Denies: dysuria Musc: Denies: neck pain or back pain Skin/Breast: Denies: rash Neuro: Denies: headache(s) Psych: Denies: depression Ba/Lymph: Denies: easy bruising All/Imm: Denies: urticaria PFSH ED PFSH: Medical History Abdominal pain Acute kidney injury Anxiety Cannabis dependence, uncomplicated CVA (cerebral vascular accident) Dehydration Elevated troponin FH: cholecystectomy GI bleed High risk medication use Hypertension Leukocytosis Major depressive disorder, recurrent, in partial remission Memory loss Nausea and vomiting Plaque psoriasis Post-traumatic stress disorder, chronic Psoriatic arthritis Surgical History History of ankle surgery History of eye surgery History of hysterectomy History of pelvic surgery History of shoulder surgery History of toe surgery Family History Other CAD (coronary artery disease) Cancer Diabetes Hypertension Lung disease Social History Smoking and tobacco status: current some day smoker cigarettes Physical Exam Const: COMMON NORMALS: patient oriented x3 and healthy appearing HENMT: COMMON NORMALS: normocephalic and atraumatic HEAD & SCALP: normocephalic and atraumatic Eye: COMMON NORMALS: Equal, round and reactive pupils present and EOMs intact bilaterally PUPIL: Yes Equal, round and reactive pupils present Neck/C-Spine: COMMON NORMALS: full ROM and supple Chest: COMMONS NORMALS: normal inspection of the chest and normal palpation of entire chest wall Resp: COMMON NORMALS: normal respiratory effort, No retractions, No use of accessory muscles and clear to auscultation bilaterally AUSCULTATION: clear to auscultation bilaterally Cardio: COMMON NORMALS: regular rate, regular rhythm and No murmurs present (Cardio) RATE: regular rate RHYTHM: regular rhythm GI: COMMON NORMALS: Normal to inspection, nondistended, normoactive bowel so unds present, Soft to palpation, non-tender and no masses PALPATION: Yes Soft to palpation Extremity: COMMON NORMALS: normal to inspection and full ROM Neuro: COMMON NORMALS: patient oriented x3, moves all extremities and no focal motor deficits Psych: COMMON NORMALS: mental status grossly normal, Normal thought process present and cooperative THOUGHT PROCESS: Normal thought process present Skin: COMMON NORMALS: no rashes or lesions noted and no wounds GENERAL SKIN EXAM: no rashes or lesions noted Course Vital Signs: Vital signs: Vital Signs Temperature 97.6 F 02/13/22 03:55 Pulse Rate 60 02/13/22 03:55 Respiratory Rate 20 H 02/13/22 03:55 Blood Pressure 196/115 02/13/22 03:55 Pulse Oximetry 99 02/13/22 03:55 MDM - Nausea/Vomiting/Diarrhea Medical Decision Making Patient presents here with vomiting she feels much improved after Reglan has been able to tolerate p.o. fluids. Her blood work here is normal she had a recent CT scan within the last month that was normal her exam is benign do not believe she needs a repeat CT scan we will prescribe her Reglan for home. Lab Data : 02/13/22 04:00 02/13/22 04:00 Laboratory Results WBC 11.6 10^3/uL (4.0-10.0) H 02/13/22 04:00 RBC 4.80 10^6/uL (4.1-5.3) 02/13/22 04:00 Hgb 15.0 g/dL (11.5-15.3) 02/13/22 04:00 Hct 42.4 % (37.0-47.0) 02/13/22 04:00 MCV 88.3 fl (81-99) 02/13/22 04:00 MCH 31.3 pg (28.0-34.0) 02/13/22 04:00 MCHC 35.4 g/dL (30.0-36.0) 02/13/22 04:00 RDW 13.7 % (12.1-15.1) 02/13/22 04:00 Plt Count 454 10^3/cmm (130-400) H 02/13/22 04:00 MPV 9.6 fL (7.4-10.4) 02/13/22 04:00 Neut % (Auto) 79.2 % 02/13/22 04:00 Lymph % (Auto) 14.8 % 02/13/22 04:00 [place] % (Auto) 5.2 % 02/13/22 04:00 Eos % (Auto) 0.2 % 02/13/22 04:00 Baso % (Auto) 0.3 % 02/13/22 04:00 Neut # (Auto) 9.19 10^3/uL (1.8-7.7) H 02/13/22 04:00 Lymph # (Auto) 1.7 10^3/uL (0.8-4.8) 02/13/22 04:00 [place] # (Auto) 0.6 10^3/uL (0.2-0.9) 02/13/22 04:00 Eos # (Auto) 0.0 10^3/uL (0.0-0.8) 02/13/22 04:00 Baso # (Auto) 0.0 10^3/uL (0.0-0.1) 02/13/22 04:00 Nucleated RBC % (auto) 0 % 02/13/22 04:00 Nucleated RBCs # 0.0 /100WBC 02/13/22 04:00 Sodium 136 mmol/L (136-145) 02/13/22 04:00 Potassium 3.4 mmol/L (3.5-5.1) L 02/13/22 04:00 Chloride 93 mmol/L (98-107) L 02/13/22 04:00 Carbon Dioxide 27 mmol/L (22-29) 02/13/22 04:00 Anion Gap 19.4 (5-19) H 02/13/22 04:00 BUN 11 mg/dL (6-20) 02/13/22 04:00 Creatinine 0.8 mg/dL (0.5-0.9) 02/13/22 04:00 GFR Calculation 74.7 mL/min (90-130) L 02/13/22 04:00 Glucose 159 mg/dL (65-115) H 02/13/22 04:00 Calculated Osmolality 285 mOsm/kg (285-295) 02/13/22 04:00 Calcium 10.0 mg/dL (8.5-10.5) 02/13/22 04:00 Total Bilirubin 0.6 mg/dL (0.15-1.2) 02/13/22 04:00 AST 21 U/L (0-32) 02/13/22 04:00 ALT 14 U/L (0-33) 02/13/22 04:00 Alkaline Phosphatase 113 IU/L (35-105) H 02/13/22 04:00 Total Protein 8.3 g/dL (6.6-8.7) 02/13/22 04:00 Albumin 4.7 g/dL (3.5-5.2) 02/13/22 04:00 Globulin 3.6 g/dL (1.3-4.6) 02/13/22 04:00 Lipase 27 U/L (13-60) 02/13/22 04:00 Discharge Plan Discharge Patient Disposition: Home Clinical Impression: Hypertension Vomiting Qualifiers: Vomiting type: unspecified Nausea presence: with nausea Qualified Code(s): R11.2 - Nausea with vomiting, unspecified Condition: Stable Prescriptions: New Reglan 10 mg tablet 10 mg PO Q6H PRN (Reason: nausea and vomiting) Qty: 20 0RF No Action aspirin 81 mg tablet,delayed release (DR/EC) 81 mg PO DAILY Qty: 30 6RF multivitamin [Daily Multi-Vitamin] Tablet 1 tab PO DAILY 0RF Cymbalta 60 mg capsule,delayed release(DR/EC) 60 mg PO BID Qty: 60 0RF metoprolol tartrate 25 mg tablet 25 mg PO BID Qty: 180 3RF baclofen 20 mg Tablet 20 mg PO TID PRN (Reason: Muscle Spasm) 0RF albuterol sulfate [Ventolin HFA] 90 mcg/actuation Hfa Aerosol Inhaler 1 - 2 puff INHALATION QID PRN (Reason: Shortness Of Breath) 0RF amlodipine 2.5 mg tablet 2.5 mg PO DAILY 0RF pantoprazole 40 mg tablet,delayed release (DR/EC) 40 mg PO BID 0RF ketoconazole 2 % shampoo 1 applic topical Q7D 0RF Rx Instructions: Lather into scalp 1 time weekly. Allow to sit on scalp for 5 minutes before rinsing. ascorbic acid (vitamin C) [Vitamin C] 500 mg Tablet 500 mg PO DAILY 0RF pregabalin 75 mg capsule 75 mg PO BID 0RF Vitamin D3 125 mcg (5,000 unit) tablet 5,000 unit PO DAILY 0RF Skyrizi 150 mg/mL pen injector 150 mg SUBCUT .EVERY 12 WEEKS 0RF lisinopril-hydrochlorothiazide 20-25 mg Tablet 0.5 tab PO DAILY 0RF Hold Instructions: Resume on 01/29/22. ondansetron 4 mg tablet,disintegrating 4 mg PO Q8H PRN (Reason: Nausea And Vomiting) 14 Days Qty: 25 0RF Discharge Orders: Discharge ED (Routine); Ordered 02/13/22 Ordered By: Rianna Schneider Referrals: Bucky Rogers MD [Primary Care Provider] - 1-3 days Discharge Diet: Advance as tolerated Discharge Activity: Resume usual activity Patient Instructions: Acute Nausea and Vomiting (ED), Hypertension (ED) Coding Level of Care Code ED Polisher Balance Screwhead for Chg Fwd Exam Comprehensive
[2022-02-13 04:07] LABS: Basophils % 0.3 %; Eosinophils % 0.2 %; Hematocrit 42.4 % (37.0-47.0); Lymphocytes # 1.7 10^3/uL (0.8-4.8); Lymphocytes % 14.8 %; Mean Corpuscular HGB Conc 35.4 g/dL (30.0-36.0); Mean Corpuscular Hemoglobin 31.3 pg (28.0-34.0); Mean Corpuscular Volume 88.3 fl (81-99); Mean Platelet Volume 9.6 fL (7.4-10.4); Monocytes # 0.6 10^3/uL (0.2-0.9); Monocytes % 5.2 %; Neutrophils # 9.19 10^3/uL (1.8-7.7); Neutrophils % 79.2 %; Nucleated Red Blood Cells % 0 %; Platelet Count 454 10^3/cmm (130-400); Red Cell Distribution Width 13.7 % (12.1-15.1); White Blood Count 11.6 10^3/uL (4.0-10.0)
[2022-02-13] MEDS: metoclopramide 5 mg/mL SDV 2 mL 10 MG IVP (04:16)
[2022-02-13] MEDS: diphenhydrAMINE 50 mg/mL SDV 1mL IVP (04:16)
[2022-02-13] MEDS: sodium chloride 0.9% 1,000 ML 999 ML IV (04:16)
[2022-02-13 04:26] LABS: Alanine Aminotransferase 14 U/L (0-33); Albumin Level 4.7 g/dL (3.5-5.2); Alkaline Phosphatase 113 IU/L (35-105); Anion Gap 19.4 (5-19); Aspartate Amino Transferase 21 U/L (0-32); Blood Urea Nitrogen 11 mg/dL (6-20); Carbon Dioxide 27 mmol/L (22-29); Chloride 93 mmol/L (98-107); Globulin 3.6 g/dL (1.3-4.6); Glomerular Filtration Rate 74.7 mL/min (90-130); Glucose 159 mg/dL (65-115); Lipase 27 U/L (13-60); Osmolality Calculated 285 mOsm/kg (285-295); Potassium 3.4 mmol/L (3.5-5.1); Sodium 136 mmol/L (136-145); Total Bilirubin 0.6 mg/dL (0.15-1.2); Total Protein 8.3 g/dL (6.6-8.7)
[2022-02-13] MEDS: LORazepam 2 mg/mL INJ 1 mL 1 MG IVP (04:45)
[2022-02-13] MEDS: hyDRALAzine 20 mg/mL INJ 1 mL 10 MG IVP (04:45)
[2022-02-13 05:14] VITALS: BP 165/85; PULSE 65; RESP 20; TEMP 36.4; O2SAT 99
== END 2022-02-13 05:17 | disposition home or self-care (01) ==
PROVIDERS: Emergency Provider Emergency Medicine; PCP Family Medicine
DX: R11.2 Nausea with vomiting, unspecified (principal); I10 Essential (primary) hypertension; F17.210 Nicotine dependence, cigarettes, uncomplicated
CPT/HCPCS: 80053; 83690; 85025; 96361; 96374; 96375; 99284; J0360; J1200; J2060; J2765; J7030

== ENCOUNTER 2022-04-09 11:42 | Observation (INO) | payer MEDICARE, MEDICAID, SELFPAY ==
[2022-04-09] VITALS (30 sets, daily range): BP systolic 132–209; BP diastolic 84–143; PULSE 86–111; RESP 16–20; TEMP 36.8–37.3; O2SAT 86–97; BMI 24.2
--- NOTE | 2022-04-09 14:53 | W.ED.GENADLT ---
HPI - General Adult General: Chief complaint: Abdominal Pain Stated complaint: N/V/ ABDOMINAL PAIN Time Seen by Provider: 04/09/22 14:09 History of Present Illness: Patient is a 52-year-old female with a history of alcohol use presenting to the emergency room with complaints of abdominal pain nausea vomiting since last night. Patient tells me last drink alcohol was yesterday night. Since then, patient has been having vomiting and diffuse abdominal pain. Denies any fever/chills, decreased p.o. intake, diarrhea melena or hematochezia. Patient has no complaints. No prior history of renal colic. Patient does not cough, runny nose sore throat, chest pain or shortness of breath. Onset:yesterday night Duration:ongoing Location:home Severity:moderate Associated symptoms: Reports nausea and vomiting; Deny chest pain, dyspnea, rash or palpitations Review of Systems Const: Denies: fever(s) or chills Eyes: Denies: change in vision ENMT: Denies: mouth pain Card: Denies: chest pain or palpitations Resp: Denies: dyspnea or non-productive cough GI: Reports: abdominal pain, nausea and vomiting; Denies: diarrhea : Denies: dysuria Musc: Denies: extremity pain Skin/Breast: Denies: rash or new lesions Neuro: Denies: weakness in extremities Psych: Reports: other (Normal mood) Ba/Lymph: Denies: easy bruising PFSH ED PFSH: Medical History Abdominal pain Acute kidney injury Anxiety Cannabis dependence, uncomplicated CVA (cerebral vascular accident) Dehydration Elevated troponin FH: cholecystectomy GI bleed High risk medication use Hypertension Leukocytosis Major depressive disorder, recurrent, in partial remission Memory loss Nausea and vomiting Plaque psoriasis Post-traumatic stress disorder, chronic Psoriatic arthritis Surgical History History of ankle surgery History of eye surgery History of hysterectomy History of pelvic surgery History of shoulder surgery History of toe surgery Family History Other CAD (coronary artery disease) Cancer Diabetes Hypertension Lung disease Social History Smoking and tobacco status: current some day smoker cigarettes Alcohol intake: current Substance/Drug Use: never Physical Exam Const: COMMON NORMALS: alert HENMT: COMMON NORMALS: atraumatic HEAD & SCALP: atraumatic MOUTH: moist mucous membranes not abnormal Eye: COMMON NORMALS: EOMs intact bilaterally and conjunctivae normal CONJUNCTIVA: Yes conjunctivae normal Neck/C-Spine: COMMON NORMALS: full ROM and supple Resp: COMMON NORMALS: normal respiratory effort and clear to auscultation bilaterally AUSCULTATION: clear to auscultation bilaterally Cardio: COMMON NORMALS: regular rate RATE: regular rate GI: COMMON NORMALS: Soft to palpation PALPATION: Yes Soft to palpation OTHER: +Moderate diffuse abd TTP. NO guarding rebound, guarding, rigidity. No CVA tenderness to percussion. Neg Alvarez/Neg McBurney's point tenderness, no suprabupic tenderness to palpation. Extremity: COMMON NORMALS: full ROM Neuro: SENSORIUM/ORIENTATION: Yes alert MOTOR EXAM: No Abnormal motor strength present and Other motor observations present (no focal motor deficits) Psych: COMMON NORMALS: speech normal SPEECH: Yes normal speech MOOD & AFFECT: Yes euthymic mood Course Vital Signs: Vital signs: Vital Signs Temperature 99.2 F 04/09/22 16:51 Pulse Rate 110 H 04/09/22 19:30 Respiratory Rate 18 04/09/22 17:35 Blood Pressure 205/130 04/09/22 19:30 Pulse Oximetry 93 04/09/22 19:30 Oxygen Delivery Me thod 04/09/22 19:30 Oxygen Flow Rate 3 04/09/22 19:30 MDM - General Adult Medical Decision Making 52-year-old female presents emergency room intractable vomiting Amanuel pain. Physical exam, patient noted to be in moderate distress. Dry mucous membrane noted. Lab work-up is largely unremarkable. Patient has a white count 13.1, sodium 129, potassium 3.3. Creatinine within normal limit. CT abdomen pelvis did not show any focal pathology. He continues can have emesis despite multiple antiemetic attempts and IVF. Patient has not been able to tolerate p.o. including GI cocktail. Patient admitted hospital for concerns of hyperemesis, dehydration and intractable vomiting. Disposition: admission Lab Data : 04/09/22 15:35 04/09/22 15:35 Radiology Impressions Abdomen/Pelvis CT 04/09/22 16:16 IMPRESSION: 1. No acute finding in the abdomen or pelvis. COMMENTS: Consistent with the [employer]'s Incidental Findings Committee white paper (J Am Marga Radiol 2018): Any incidental renal lesion less than 1 cm or classified as too small to characterize, or any incidental cystic renal lesion characterized as simple-appearing, is likely benign. No follow-up imaging is recommended for these lesions per consensus recommendations based on imaging criteria. Chest X-Ray 04/09/22 18:27 IMPRESSION: No acute findings. Laboratory Results WBC 13.1 10^3/uL (4.0-10.0) H 04/09/22 15:35 RBC 4.53 10^6/uL (4.1-5.3) 04/09/22 15:35 Hgb 14.3 g/dL (11.5-15.3) 04/09/22 15:35 Hct 40.6 % (37.0-47.0) 04/09/22 15:35 MCV 89.6 fl (81-99) 04/09/22 15:35 MCH 31.6 pg (28.0-34.0) 04/09/22 15:35 MCHC 35.2 g/dL (30.0-36.0) 04/09/22 15:35 RDW 13.6 % (12.1-15.1) 04/09/22 15:35 Plt Count 420 10^3/cmm (130-400) H 04/09/22 15:35 MPV 9.9 fL (7.4-10.4) 04/09/22 15:35 Neut % (Auto) 85.6 % 04/09/22 15:35 Lymph % (Auto) 9.0 % 04/09/22 15:35 [place] % (Auto) 4.4 % 04/09/22 15:35 Eos % (Auto) 0.2 % 04/09/22 15:35 Baso % (Auto) 0.1 % 04/09/22 15:35 Neut # (Auto) 11.23 10^3/uL (1.8-7.7) H 04/09/22 15:35 Lymph # (Auto) 1.2 10^3/uL (0.8-4.8) 04/09/22 15:35 [place] # (Auto) 0.6 10^3/uL (0.2-0.9) 04/09/22 15:35 Eos # (Auto) 0.0 10^3/uL (0.0-0.8) 04/09/22 15:35 Baso # (Auto) 0.0 10^3/uL (0.0-0.1) 04/09/22 15:35 Nucleated RBC % (auto) 0 % 04/09/22 15:35 Nucleated RBCs # 0.0 /100WBC 04/09/22 15:35 Sodium 129 mmol/L (136-145) L 04/09/22 15:35 Potassium 3.3 mmol/L (3.5-5.1) L 04/09/22 15:35 Chloride 87 mmol/L (98-107) L 04/09/22 15:35 Carbon Dioxide 25 mmol/L (22-29) 04/09/22 15:35 Anion Gap 20.3 (5-19) H 04/09/22 15:35 BUN 25 mg/dL (6-20) H 04/09/22 15:35 Creatinine 0.6 mg/dL (0.5-0.9) 04/09/22 15:35 GFR Calculation 104.2 mL/min (90-130) 04/09/22 15:35 Glucose 122 mg/dL (65-115) H 04/09/22 15:35 Calculated Osmolality 274 mOsm/kg (285-295) L 04/09/22 15:35 Calcium 10.1 mg/dL (8.5-10.5) 04/09/22 15:35 Total Bilirubin 0.6 mg/dL (0.15-1.2) 04/09/22 15:35 AST 22 U/L (0-32) 04/09/22 15:35 ALT 13 U/L (0-33) 04/09/22 15:35 Alkaline Phosphatase 126 IU/L (35-105) H 04/09/22 15:35 Total Protein 8.5 g/dL (6.6-8.7) 04/09/22 15:35 Albumin 5.1 g/dL (3.5-5.2) 04/09/22 15:35 Globulin 3.4 g/dL (1.3-4.6) 04/09/22 15:35 Lipase 24 U/L (13-60) 04/09/22 15:35 Imaging Data Other Imaging: Radiologist's impression: [facility] [address] [address] XRay Report Signed Patient: Rachelle Mireles Unit #: [id number] : 1970 Age/Sex: 52 / F ADM Date: 04/09/22 Loc: ER Room/Bed: Attending Dr: Ordering Provider/Ordering MD: Rivera Snider MD Date of Service: 04/09/22 Procedure(s): XR chest 1V portable [id number] Accession Number(s): [id number] Report Number: [id number] PROCEDURE INFORMATION: Exam: XR Chest Exam date and time: 04/09/2022 6:35 PM Age: 52 years old Clinical indication: Dyspnea TECHNIQUE: Imaging protocol: Radiologic exam of the chest. Views: 1 view. COMPARISON: CR XR chest 1V portable [id number] 01/21/2022 3:07 PM FINDINGS: Lungs: Discoid atelectasis in the right lung base. The lungs are otherwise clear. No consolidation. Pleural spaces: Unremarkable. No pleural effusion. No pneumothorax. Heart/Mediastinum: Unremarkable. No cardiomegaly. Bones/joints:? Mild thoracic curvature. XR/XR chest 1V portable [id number] IMPRESSION: No acute findings. ? Dictated By: Candelario Mcpherson Signed By: Candelario Mcpherson Signed Date/Time: 04/09/22 1856 DD/ [address] [address] [address] Scan Report Signed Patient: Rachelle Mireles Unit #: [id number] : 1970 Age/Sex: 52 / F ADM Date: 04/09/22 Loc: ER Room/Bed: Attending Dr: Ordering Provider/Ordering MD: Rivera Snider MD Date of Service: 04/09/22 Procedure(s): CT abdomen pelvis wo con [id number] Accession Number(s): [id number] Report Number: [id number] PROCEDURE INFORMATION: Exam: CT Abdomen And Pelvis Without Contrast Exam date and time: 04/09/2022 5:43 PM Age: 52 years old Clinical indication: Nausea and vomiting; Prior surgery; Surgery date: 6+ months; Surgery type: Hyst, gb, pelvic repair; Additional info: Abd pain/nausea/vomiting TECHNIQUE: Imaging protocol: Computed tomography of the abdomen and pelvis without contrast. Radiation optimization: All CT scans at this facility use at least one of these dose optimization techniques: automated exposure control; mA and/or kV adjustment per patient size (includes targeted exams where dose is matched to clinical indication); or iterative reconstruction. COMPARISON: CT abdomen pelvis wo con [id number] 01/21/2022 6:15 AM RADIATION DOSE METRICS: Total DLP (mGy-cm): 557.04 FINDINGS: Liver: Normal. No mass. Gallbladder and bile ducts: Cholecystectomy. Trace pneumobilia, most likely prior sphincterotomy. Pancreas: Normal. No ductal dilation. Spleen: Normal. No splenomegaly. Adrenal glands: Mild fullness of the adrenal glands is most likely hyperplasia.? A 1.5 cm in the left adrenal gland, Hounsfield units less than 10, is not excluded. Kidneys and ureters: Left renal cysts, Hounsfield units less than 20. The kidneys are otherwise unremarkable. No calculus or hydronephrosis. Stomach and bowel: Unremarkable. No obstruction. No mucosal thickening. Appendix: The appendix is visualized and is normal. Intraperitoneal space: Unremarkable. No free air. No significant fluid collection. Vasculature: Arterial calcifications. No aneurysm. Lymph nodes: Unremarkable. No enlarged lymph nodes. Urinary bladder: The urinary bladder is decompressed. Reproductive: The uterus and ovaries are absent. Bones/joints: Screws in the bilateral iliac bones and superior pubic rami. Metal plates and screws transversing the anterior left sacroiliac joint. Screw transversing the right sacroiliac joint. Old left sacral fracture. Old left ischial tuberosity fracture. Old right iliac bone fracture. No acute fracture identified. Soft tissues: Unremarkable. CT/CT abdomen pelvis wo con [id number] IMPRESSION: 1. No acute finding in the abdomen or pelvis. ? COMMENTS: Consistent with the [employer]'s Incidental Findings Committee white paper (J Am Marga Radiol 2018): Any incidental renal lesion less than 1 cm or classified as too small to characterize, or any incidental cystic renal lesion characterized as simple-appearing, is likely benign. No follow-up imaging is recommended for these lesions per consensus recommendations based on imaging criteria. ? Dictated By: Candelario Mcpherson Signed By: Candelario Mcpherson Signed Date/Time: 04/09/22 1825 DD/ 174 Discharge Plan Discharge Patient Disposition: Admitted As Inpatient Clinical Impression: Abdominal pain, Nausea & vomiting, Hyperemesis Condition: Stable Discharge Diet: Advance as tolerated Discharge Activity: Increase activity as tolerated Coding Level of Care Code ED Culture Media Laboratory Assistant for Chg Fwd Exam Comprehensive
[2022-04-09] MEDS: sodium chloride 0.9% 1,000 ML 999 ML IV (15:10)
[2022-04-09] MEDS: ondansetron 2 mg/ML SDV 2 mL 8 MG IVP (15:10)
[2022-04-09 15:51] LABS: Basophils % 0.1 %; Eosinophils % 0.2 %; Hematocrit 40.6 % (37.0-47.0); Hemoglobin 14.3 g/dL (11.5-15.3); Lymphocytes # 1.2 10^3/uL (0.8-4.8); Mean Corpuscular HGB Conc 35.2 g/dL (30.0-36.0); Mean Corpuscular Hemoglobin 31.6 pg (28.0-34.0); Mean Corpuscular Volume 89.6 fl (81-99); Mean Platelet Volume 9.9 fL (7.4-10.4); Monocytes # 0.6 10^3/uL (0.2-0.9); Monocytes % 4.4 %; Neutrophils # 11.23 10^3/uL (1.8-7.7); Neutrophils % 85.6 %; Nucleated Red Blood Cells % 0 %; Platelet Count 420 10^3/cmm (130-400); Red Blood Count 4.53 10^6/uL (4.1-5.3); Red Cell Distribution Width 13.6 % (12.1-15.1); White Blood Count 13.1 10^3/uL (4.0-10.0)
[2022-04-09 16:13] LABS: Alanine Aminotransferase 13 U/L (0-33); Albumin Level 5.1 g/dL (3.5-5.2); Alkaline Phosphatase 126 IU/L (35-105); Anion Gap 20.3 (5-19); Aspartate Amino Transferase 22 U/L (0-32); Blood Urea Nitrogen 25 mg/dL (6-20); Calcium 10.1 mg/dL (8.5-10.5); Carbon Dioxide 25 mmol/L (22-29); Chloride 87 mmol/L (98-107); Globulin 3.4 g/dL (1.3-4.6); Glomerular Filtration Rate 104.2 mL/min (90-130); Glucose 122 mg/dL (65-115); Lipase 24 U/L (13-60); Osmolality Calculated 274 mOsm/kg (285-295); Potassium 3.3 mmol/L (3.5-5.1); Sodium 129 mmol/L (136-145); Total Bilirubin 0.6 mg/dL (0.15-1.2); Total Protein 8.5 g/dL (6.6-8.7)
--- NOTE | 2022-04-09 16:16 | CTR_ITS ---
PROCEDURE INFORMATION: Exam: CT Abdomen And Pelvis Without Contrast Exam date and time: 04/09/2022 5:43 PM Age: 52 years old Clinical indication: Nausea and vomiting; Prior surgery; Surgery date: 6+ months; Surgery type: Hyst, gb, pelvic repair; Additional info: Abd pain/nausea/vomiting TECHNIQUE: Imaging protocol: Computed tomography of the abdomen and pelvis without contrast. Radiation optimization: All CT scans at this facility use at least one of these dose optimization techniques: automated exposure control; mA and/or kV adjustment per patient size (includes targeted exams where dose is matched to clinical indication); or iterative reconstruction. COMPARISON: CT abdomen pelvis wo con [id number] 01/21/2022 6:15 AM RADIATION DOSE METRICS: Total DLP (mGy-cm): 557.04 FINDINGS: Liver: Normal. No mass. Gallbladder and bile ducts: Cholecystectomy. Trace pneumobilia, most likely prior sphincterotomy. Pancreas: Normal. No ductal dilation. Spleen: Normal. No splenomegaly. Adrenal glands: Mild fullness of the adrenal glands is most likely hyperplasia. A 1.5 cm in the left adrenal gland, Hounsfield units less than 10, is not excluded. Kidneys and ureters: Left renal cysts, Hounsfield units less than 20. The kidneys are otherwise unremarkable. No calculus or hydronephrosis. Stomach and bowel: Unremarkable. No obstruction. No mucosal thickening. Appendix: The appendix is visualized and is normal. Intraperitoneal space: Unremarkable. No free air. No significant fluid collection. Vasculature: Arterial calcifications. No aneurysm. Lymph nodes: Unremarkable. No enlarged lymph nodes. Urinary bladder: The urinary bladder is decompressed. Reproductive: The uterus and ovaries are absent. Bones/joints: Screws in the bilateral iliac bones and superior pubic rami. Metal plates and screws transversing the anterior left sacroiliac joint. Screw transversing the right sacroiliac joint. Old left sacral fracture. Old left ischial tuberosity fracture. Old right iliac bone fracture. No acute fracture identified. Soft tissues: Unremarkable. CT/CT abdomen pelvis wo con [id number] IMPRESSION: 1. No acute finding in the abdomen or pelvis. COMMENTS: Consistent with the [employer]'s Incidental Findings Committee white paper (J Am Marga Radiol 2018): Any incidental renal lesion less than 1 cm or classified as too small to characterize, or any incidental cystic renal lesion characterized as simple-appearing, is likely benign. No follow-up imaging is recommended for these lesions per consensus recommendations based on imaging criteria.
--- NOTE | 2022-04-09 16:54 | PC.PHAR ---
pt states she takes care of her own medications-pt states the lisinopril-hctz 20-25mg 0.5 tab daily last filled 11/14/21 90d/s was dced
--- NOTE | 2022-04-09 17:07 | PC.NURSE ---
Pt loudly dry heaving
--- NOTE | 2022-04-09 17:07 | PC.NURSE ---
pt loudly dry heaving
--- NOTE | 2022-04-09 17:08 | PC.NURSE ---
Correction: not wrong patient. Pt is actively dry heaving loudly
[2022-04-09] MEDS: morphine 4 mg/mL SDV 1 mL IVP (17:35)
[2022-04-09] MEDS: ondansetron 2 mg/ML SDV 2 mL 4 MG IVP ×2 (17:36→21:22)
--- NOTE | 2022-04-09 18:27 | XRR_ITS ---
PROCEDURE INFORMATION: Exam: XR Chest Exam date and time: 04/09/2022 6:35 PM Age: 52 years old Clinical indication: Dyspnea TECHNIQUE: Imaging protocol: Radiologic exam of the chest. Views: 1 view. COMPARISON: CR XR chest 1V portable [id number] 01/21/2022 3:07 PM FINDINGS: Lungs: Discoid atelectasis in the right lung base. The lungs are otherwise clear. No consolidation. Pleural spaces: Unremarkable. No pleural effusion. No pneumothorax. Heart/Mediastinum: Unremarkable. No cardiomegaly. Bones/joints: Mild thoracic curvature. XR/XR chest 1V portable [id number] IMPRESSION: No acute findings.
[2022-04-09] MEDS: lidocaine 2% viscous 15 ML, aluminum-mag hydrox-simethicon 30 ML, sucralfate oral liq 1 GM PO (19:28)
[2022-04-09 20:29] LABS: Alcohol Level < 10 mg/dL (0-10)
--- NOTE | 2022-04-09 20:47 | PM.HP ---
Providers/Chief Complaint Admitting Physician: Umberto Kulkarni MD Primary Care Provider: Bucky Rogers MD Chief Complaint: N/V/ ABDOMINAL PAIN History of Present Illness Rachelle Mireles is a 52 year old female with a past medical history of psoriatic arthritis, PTSD, hematemesis, dark stools, NSAID induced gastritis, depression, who presents to [facility] due to diffuse abdominal pain, intractable nausea, vomiting. She tells me that for the last 24 hours she is not able to keep down any solids or liquids she has had intractable nausea, vomiting. She tells me yesterday she did have a half bottle of liquor, no history of alcohol withdrawal, no history of alcohol delirium tremens. Does report significant alcohol use, denies any drug use, does report marijuana use but last use was according to patient 2 weeks ago. She tells me that she had a bowel movement today. Denies a any history of food poisoning. She has diffuse abdominal pain, no history of cholecystectomy. No history of diarrhea. She has had a couple episodes of red-tinged vomit, no history of esophageal varices. No history of bloody or black stools currently. In the emergency room she is received multiple rounds of antiemetics, fluids, but continues to have nausea vomiting, CT scan has no acute findings, but on examination she has decreased bowel sounds, concerning for potential ileus given her electrolyte abnormalities. She recently had a hospitalization this year for similar symptoms, at that time her urine toxicology screen was positive for THC. Symptoms highly suspicious for marijuana hyperemesis syndrome, not intoxicated, alcohol levels within normal limits. No fevers, chills, no cough, no chest pain. Review of Systems Const: Denies: fever(s), chills, fatigue or malaise Eyes: Denies: change in vision Card: Denies: chest pain or palpitations Resp: Denies: dyspnea, productive cough, non-productive cough or wheezing GI: Reports: abdominal pain, nausea, vomiting and hematemesis; Denies: coffee ground emesis, diarrhea, constipation, hematochezia or melena : Denies: flank pain, dysuria or urinary frequency Musc: Denies: back pain Skin/Breast: Denies: rash Neuro: Denies: headache(s), dizziness or vertigo Endo: Denies: polyuria or polydipsia Medications/Allergies Home Medications Medication Instructions Recorded Confirmed Last Taken Type duloxetine 60 mg capsule,delayed 60 mg PO BID #60 caps 02/15/20 04/09/22 09/20/21 Rx release (Cymbalta) multivitamin (Daily Multi-Vitamin) 1 tab PO DAILY 04/20/20 04/09/22 09/20/21 History albuterol sulfate 90 mcg/actuation 1 - 2 puff inhalation QID PRN 07/13/21 04/09/22 2 Weeks Ago History aerosol inhaler (Ventolin HFA) Shortness Of Breath ~09/07/21 baclofen 20 mg tablet 20 mg PO TID PRN Muscle Spasm 07/13/21 04/09/22 2 Weeks Ago History ~09/07/21 ascorbic acid (vitamin C) 500 mg 500 mg PO QAM 09/04/21 04/09/22 09/20/21 History tablet (Vitamin C) ketoconazole 2 % shampoo 1 applic topical Q7D 09/04/21 04/09/22 2 Weeks Ago History ~09/07/21 pantoprazole 40 mg tablet,delayed 40 mg PO BID 09/04/21 04/09/22 09/20/21 History release metoprolol tartrate 25 mg tablet 25 mg PO BID #180 tabs 10/24/21 04/09/22 Unknown Rx risankizumab-rzaa 150 mg/mL 150 mg SUBCUT .EVERY 12 WEEKS 01/21/22 04/09/22 04/02/22 History subcutaneous pen injector (Sarah) ondansetron 4 mg disintegrating 4 mg PO Q8H PRN Nausea And 01/22/22 04/09/22 Unknown Rx tablet Vomiting 14 days #25 tabs metoclopramide HCl 10 mg tablet 10 mg PO Q6H PRN nausea and 02/13/22 04/09/22 Unknown Rx (Reglan) vomiting #20 tabs acetaminophen 500 mg tablet 500 mg PO Q6H PRN pain 5 days #20 04/09/22 Unknown Rx tabs amlodipine 10 mg tablet 10 mg PO BEDTIME 04/09/22 04/09/22 Unknown History aspirin 81 mg tablet,delayed 81 mg PO QAM 04/09/22 04/09/22 Unknown History release calcium carbonate 1,000 1 tab PO TID PRN abdominal pain 7 04/09/22 Unknown Rx mg-simethicone 60 mg chewable days #21 tabs tablet (Maalox Advanced) famotidine 20 mg tablet (Pepcid) 20 mg PO BID PRN abdominal pain 10 04/09/22 Unknown Rx days #20 tabs ondansetron 4 mg disintegrating 4 mg PO TID PRN nausea and 04/09/22 Unknown Rx tablet vomiting 4 days #12 tabs pregabalin 100 mg capsule 100 mg PO BID 04/09/22 04/09/22 Unknown History Allergies Allergy/AdvReac Type Severity Reaction Status Date / Time adhesive tape Allergy Intermediate rash, red Verified 04/09/22 16:50 codeine Allergy ALGY-Anaphy Verified 04/09/22 16:50 laxis paroxetine [From Paxil] Allergy Unconscious Verified 04/09/22 16:50 PFSH Acute PFSH: Medical History Abdominal pain Acute kidney injury Anxiety Cannabis dependence, uncomplicated CVA (cerebral vascular accident) Dehydration Elevated troponin FH: cholecystectomy GI bleed High risk medication use Hypertension Leukocytosis Major depressive disorder, recurrent, in partial remission Memory loss Nausea and vomiting Plaque psoriasis Post-traumatic stress disorder, chronic Psoriatic arthritis Surgical History History of ankle surgery History of eye surgery History of hysterectomy History of pelvic surgery History of shoulder surgery History of toe surgery Family History Other CAD (coronary artery disease) Cancer Diabetes Hypertension Lung disease Social History Smoking and tobacco status: current some day smoker cigarettes Alcohol intake: current Substance/Drug Use: never Vitals/I&O/Wt Last Vital Signs Temp 99.2 F 04/09/22 16:51 Pulse 110 H 04/09/22 19:30 Resp 18 04/09/22 17:35 BP 205/130 04/09/22 19:30 Pulse Ox 93 04/09/22 19:30 O2 Del Method 04/09/22 19:30 O2 Flow Rate 3 04/09/22 19:30 Weight last 48 hrs Weight 68.039 kg Physical Exam Const: COMMON NORMALS: no acute distress and patient oriented x3 HENMT: COMMON NORMALS: normocephalic HEAD & SCALP: normocephalic Eye: COMMON NORMALS: Equal, round and reactive pupils present, EOMs intact bilaterally and conjunctivae normal Neck/C-Spine: COMMON NORMALS: no JVD Resp: COMMON NORMALS: normal respiratory effort, No retractions, No use of accessory muscles and clear to auscultation bilaterally AUSCULTATION: clear to auscultation bilaterally Cardio: COMMON NORMALS: no JVD, regular rate, regular rhythm, S1 normal heart sound present and S2 normal heart sound present RATE: regular rate RHYTHM: regular rhythm HEART SOUNDS: S1 normal heart sound present and S2 normal heart sound present GI: OTHER: Abdomen abdomen soft, slightly distended, no guarding, no rebound, no rigidity, diffuse tenderness, no rebound tenderness, decreased bowel sounds Extremity: COMMON NORMALS: capillary refill normal, no clubbing, cyanosis or edema, no calf tenderness and no pedal edema Neuro: COMMON NORMALS: patient oriented x3, CN's II-XII intact bilaterally, moves all extremities and no focal motor deficits Psych: COMMON NORMALS: mental status grossly normal Data : 04/09/22 15:35 04/09/22 15:35 A&P Assessment and plan (1) Hypertensive urgency: Status: Acute (2) Intractable nausea and vomiting: Status: Acute (3) Cannabinoid hyperemesis syndrome: Status: Acute (4) Alcohol withdrawal: Status: Acute Plan Intractable nausea and vomiting -Potentially cannabinoid hyperemesis syndrome -CT scan no evidence of ileus, but on exam does have decreased bowel sounds, concern for potential ileus -Plan -N.p.o. -Banana bag, IV fluids -Zofran, Reglan, promethazine for nausea control -Magnesium, phosphorus, A1c, urine toxicology screen pending -Full code -Lovenox for DVT prophylaxis Hypokalemia, replace Alcohol withdrawal, currently not in withdrawal, but has a history of significant alcoholism -[facility] protocol Hypertensive urgency -Cannot take oral blood pressure medication due to intractable nausea and vomiting -Labetalol IV as needed -Hydralazine IV as needed Attestations Medical Necessity Statement*: Patient requires hospitalization, outpatient with observation, for intractable nausea, vomiting, potentially alcohol withdrawal, hypokalemia Coding Level of Care Code Acute 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
[2022-04-09 21:11] LABS: Creatine Phosphokinase 203 U/L (26-192); Magnesium 1.6 mg/dL (1.7-2.3); Phosphorus 3.4 mg/dL (2.5-4.5)
[2022-04-09 21:18] LABS: Procalcitonin 0.05 ng/mL (0-0.5)
[2022-04-09] MEDS: pantoprazole 40 mg SDV IVP (23:11)
[2022-04-09] MEDS: folic acid 1 MG, multivitamin inj 10 ML, thiamine 100 MG in sodium chloride 0.9% 1,000 ML 252.8 MG IV (23:14)
[2022-04-09] MEDS: enoxaparin 40 mg/0.4 mL Syringe SUBCUT (23:17)
[2022-04-09] MEDS: promethazine 25 mg/mL SDV 1 mL 12.5 MG IM (23:38)
[2022-04-09] MEDS: lidocaine 1% 5 ML in potassium chloride premix 100 ML 25 ML IV (23:43)
[2022-04-09] MEDS: morphine 4 mg/mL SDV 1 mL 2 MG IVP (23:54)
[2022-04-10] VITALS (8 sets, daily range): BP systolic 120–192; BP diastolic 78–113; PULSE 74–103; RESP 16–20; TEMP 36.8–37.5; O2SAT 93–98
[2022-04-10 00:07] LABS: Ketone (Acetest) Serum Negative (Negative)
[2022-04-10 00:20] LABS: Estmated Average Glucose 108; Hemoglobin A1C 5.4 % (4.0-6.0)
[2022-04-10 00:25] LABS: Amylase 115 U/L (28-100); Thyroid Stimulating Hormone 0.91 uIU/mL (0.27-4.20)
[2022-04-10] MEDS: metoclopramide 5 mg/mL SDV 2 mL IVP ×3 (02:56→15:18)
[2022-04-10 03:31] LABS: Amphetamines Screen Urine Negative (Negative); Barbiturates Screen Urine Negative (Negative); Benzodiazepines Screen Urine Negative (Negative); Cocaine Screen Urine Negative (Negative); Opiate Screen Urine Positive (Negative); PCP Screen Urine Negative (Negative); THC Screen Urine Positive (Negative)
[2022-04-10 03:37] LABS: Add Urine Microscopic? YES; Bacteria Urine TRACE /hpf; Bilirubin Urine Neg (Negative); Blood Urine 3+ (Negative); Glucose Urine UA Norm (Normal); Ketones Urine 1+ (Negative); Leukocyte Esterase Urine Negative (Negative); Mucus Urine TRACE /hpf; Nitrate Urine Negative (Negative); Protein Urine 3+ (Negative); RBC Urine 0-4 /hpf (0-2); Urine Appearance Clear (CLEAR); Urine Color Yellow (Yellow); Urobilinogen Urine Norm (Negative); pH Urine 6 (5-7)
[2022-04-10 03:38] LABS: Add Urine Culture? No
[2022-04-10] MEDS: morphine 4 mg/mL SDV 1 mL 2 MG IVP ×3 (04:02→13:23)
[2022-04-10] MEDS: dextrose 5%-sod chloride 0.9% 1,000 ML 125 ML IV ×2 (04:11→12:52)
[2022-04-10] MEDS: magnesium sulfate premix 4 GM/100 ML PREMIX IV (06:20)
[2022-04-10 07:21] LABS: Basophils % 0.2 %; Eosinophils % 0.1 %; Hemoglobin 15.5 g/dL (11.5-15.3); Lymphocytes # 2.7 10^3/uL (0.8-4.8); Lymphocytes % 15.4 %; Mean Corpuscular HGB Conc 34.4 g/dL (30.0-36.0); Mean Corpuscular Hemoglobin 31.1 pg (28.0-34.0); Mean Corpuscular Volume 90.4 fl (81-99); Mean Platelet Volume 10.6 fL (7.4-10.4); Monocytes # 1.7 10^3/uL (0.2-0.9); Monocytes % 9.9 %; Neutrophils # 12.87 10^3/uL (1.8-7.7); Neutrophils % 73.4 %; Nucleated Red Blood Cells % 0 %; Platelet Count 368 10^3/cmm (130-400); Red Blood Count 4.98 10^6/uL (4.1-5.3); Red Cell Distribution Width 13.8 % (12.1-15.1); White Blood Count 17.5 10^3/uL (4.0-10.0)
[2022-04-10] MEDS: multivitamin therapeutic Tablet 1 TAB PO (07:56)
[2022-04-10] MEDS: folic acid 1 mg Tablet PO (07:56)
[2022-04-10] MEDS: thiamine 100 mg Tablet PO (07:56)
[2022-04-10] MEDS: promethazine 25 mg/mL SDV 1 mL 12.5 MG IM (07:58)
[2022-04-10 09:28] LABS: Lactate (Lactic Acid level) 0.8 mmol/L (0.5-2.2)
[2022-04-10] MEDS: lidocaine 1% 5 ML in potassium chloride premix 100 ML 25 ML IV (09:32)
[2022-04-10 09:41] LABS: Alanine Aminotransferase 13 U/L (0-33); Albumin Level 4.5 g/dL (3.5-5.2); Alkaline Phosphatase 105 IU/L (35-105); Anion Gap 14.1 (5-19); Aspartate Amino Transferase 27 U/L (0-32); Blood Urea Nitrogen 22 mg/dL (6-20); Calcium 9.1 mg/dL (8.5-10.5); Carbon Dioxide 30 mmol/L (22-29); Chloride 94 mmol/L (98-107); Globulin 2.5 g/dL (1.3-4.6); Glomerular Filtration Rate 87.2 mL/min (90-130); Glucose 150 mg/dL (65-115); Magnesium 3.6 mg/dL (1.7-2.3); Osmolality Calculated 286 mOsm/kg (285-295); Phosphorus 2.4 mg/dL (2.5-4.5); Potassium 3.1 mmol/L (3.5-5.1); Sodium 135 mmol/L (136-145); Total Bilirubin 0.7 mg/dL (0.15-1.2)
--- NOTE | 2022-04-10 10:04 | PC.CHAP ---
Pastoral Care Encounter/Spiritual Assessment Type of Contact [] Declined white sourer visit [] Patient/Family/Request visit [] Outpatient visit [] Follow-up visit [] Physician referral [] Code/Alert [x] Routine visit [] Staff referral [] Actively dying [] Patient sleeping [] Family support [] [] Out of room [] Palliative care [] [x] Receiving care in room [] Pre-surgical visit [] Trauma [] Long length of stay [] ICU visit [] Other: Relational/Emotional Strength [] Patient feels connected with others/family/visitors/staff [] Distress [] Loneliness/isolation [] Abandonment Spirituality of Patient [] Person of Ceci [] Attends Yazidism of their Ceci [] Believes in Prayer [] Reads Bible or Buddhism materials [] There are Spiritual issues to be addressed Account Representative Interventions [] Prayer [] Active listening [] Non-anxious presence [] Spiritual/emotional support [] Crisis/trauma care [] Spiritual counseling [] Bereavement support [] Provided bereavement packet [] Provided Bible/devotional materials [] Provided toy/stuffed animal, coloring book to patient or family member [] Provided Communion [] Anointing/Taylor [] Salvation [] Completed spiritual assessment [] Other: Impact on Illness or Injury [] Angry [] Fearful [] Anxious [] Often cries [] Exhaustion [] Unable to work [] Unable to attend jewish [] Unable to walk/stand [] Unable to read [] Unable to drive [] Unable to eat/drink [] Unable to sleep [] Unable to be with family [] Patient intubated [] Other: Summary Time spent with patient
[2022-04-10] MEDS: pantoprazole 40 mg SDV IVP (10:26)
[2022-04-10 10:57] LABS: Reflex Lactate Order REFLEX LACTIC ORDERD
[2022-04-10 12:48] LABS: Lactic Acid level (Lactate) 5.1 mmol/L (0.5-2.2)
--- NOTE | 2022-04-10 12:56 | P.PN_ITS ---
Subjective Subjective: Patient endorses to medical marijuana No ileus No signs of enteritis or colitis I will discontinue Zosyn Noticed worsening leukocytosis which could be stress leukemoid reaction Afebrile I have advance his diet to GI soft If you tolerate diet I can discharge her later today Vitals/I&O/Wt Last Vital Signs Temp 99.3 F 04/10/22 12:00 Pulse 103 H 04/10/22 12:00 Resp 18 04/10/22 12:00 BP 151/92 04/10/22 12:00 Pulse Ox 94 04/10/22 12:00 O2 Del Method 04/10/22 12:00 O2 Flow Rate 3 04/09/22 21:30 04/09/22 04/10/22 04/10/22 22:59 06:59 14:59 Intake Total 1000 / 1000 1116.2 / 2116.2 1100 / 1100 Output Total 380 / 380 Balance 1000 / 1000 736.2 / 1736.2 1100 / 1100 Weight last 48 hrs Weight 68.039 kg Physical Exam Narrative: Awake and alert Able to walk on her own Looks dehydrated Mild nominal soreness midepigastric and otherwise no rigidity guarding or peritonitis Nonfocal neuro exam Awake and alert Currently on room air S1, S2 no signs of respiratory distress Data : 04/10/22 06:40 04/10/22 08:50 Micro: Microbiology 04/10/22 08:50 Blood Culture - Preliminary Blood SPECIMEN COLLECTED 04/10/22 08:59 Blood Culture - Preliminary Blood SPECIMEN COLLECTED A&P Assessment and plan (1) Alcohol withdrawal: Status: Acute (2) Intractable nausea and vomiting: Status: Acute (3) Hypertensive urgency: Status: Acute (4) Cyclical vomiting: Status: Acute Plan Her last medical marijuana use was 3 weeks ago No signs of ileus or enteritis Discontinue antibiotics I will let her eat, GI soft diet It could be medical marijuana related cyclical vomiting I will do Reglan scheduled for now If she tolerates diet we can discharge her later today versus tomorrow morning No signs of fever, worsening leukocytosis noted Continue IV fluids Full code DVT prophylaxis on board Conservative management Attestations Medical Necessity Statement*: Discharge later today versus tomorrow Time Spent in Patient Care: 30 Coding Level of Care Code Acute 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
[2022-04-10] MEDS: ondansetron 2 mg/ML SDV 2 mL 4 MG IVP (13:23)
[2022-04-10 13:57] LABS: INR 0.93 (0.8-1.2)
[2022-04-10] MEDS: LORazepam 2 mg Tablet PO ×2 (16:51→23:37)
[2022-04-10] MEDS: enoxaparin 40 mg/0.4 mL Syringe SUBCUT (23:37)
[2022-04-11] VITALS: BP 186/98; PULSE 96; RESP 18; TEMP 37.1; O2SAT 98
[2022-04-11] MEDS: morphine 4 mg/mL SDV 1 mL 2 MG IVP (03:25)
[2022-04-11] MEDS: metoclopramide 5 mg/mL SDV 2 mL IVP (03:25)
[2022-04-11 04:00] VITALS: BP 170/106; PULSE 98; RESP 18; TEMP 37; O2SAT 97
[2022-04-11] MEDS: dextrose 5%-sod chloride 0.9% 1,000 ML 125 ML IV (04:51)
[2022-04-11 05:50] LABS: Basophils % 0.3 %; Eosinophils # 0.1 10^3/uL (0.0-0.8); Eosinophils % 0.4 %; Hematocrit 42.5 % (37.0-47.0); Hemoglobin 13.9 g/dL (11.5-15.3); Lymphocytes # 2.6 10^3/uL (0.8-4.8); Lymphocytes % 22.6 %; Mean Corpuscular HGB Conc 32.7 g/dL (30.0-36.0); Mean Corpuscular Hemoglobin 31.1 pg (28.0-34.0); Mean Corpuscular Volume 95.1 fl (81-99); Monocytes # 1.1 10^3/uL (0.2-0.9); Monocytes % 9.3 %; Neutrophils # 7.78 10^3/uL (1.8-7.7); Neutrophils % 67.1 %; Nucleated Red Blood Cells % 0 %; Platelet Count 370 10^3/cmm (130-400); Red Blood Count 4.47 10^6/uL (4.1-5.3); Red Cell Distribution Width 13.9 % (12.1-15.1); White Blood Count 11.6 10^3/uL (4.0-10.0)
[2022-04-11 06:10] LABS: Alanine Aminotransferase 15 U/L (0-33); Albumin Level 4.3 g/dL (3.5-5.2); Alkaline Phosphatase 116 IU/L (35-105); Aspartate Amino Transferase 29 U/L (0-32); Blood Urea Nitrogen 9 mg/dL (6-20); Carbon Dioxide 24 mmol/L (22-29); Chloride 94 mmol/L (98-107); Globulin 3.4 g/dL (1.3-4.6); Glomerular Filtration Rate 87.2 mL/min (90-130); Glucose 119 mg/dL (65-115); Magnesium 2.3 mg/dL (1.7-2.3); Osmolality Calculated 278 mOsm/kg (285-295); Phosphorus 1.6 mg/dL (2.5-4.5); Sodium 134 mmol/L (136-145); Total Bilirubin 0.5 mg/dL (0.15-1.2); Total Protein 7.7 g/dL (6.6-8.7)
[2022-04-11 06:12] LABS: Anion Gap 19.8 (5-19); Potassium 3.8 mmol/L (3.5-5.1)
[2022-04-11 07:39] VITALS: BP 132/79; PULSE 96; RESP 16; TEMP 37; O2SAT 98
--- NOTE | 2022-04-11 08:13 | PM.DCS ---
Discharge Providers Date of Admission: 04/09/22 19:42 Date of Discharge: April 11, 2022 Attending Provider at Admission: Umberto Kulkarni MD Attending Provider at Discharge: Tania Peck MD Primary Care Provider: Bucky Rogers MD Diagnoses at Discharge Discharge Diagnosis (1) Alcohol withdrawal: Status: Acute (2) Intractable nausea and vomiting: Status: Acute (3) Hypertensive urgency: Status: Acute (4) Cyclical vomiting: Status: Acute Reason for Visit Reason for Visit: N/V/ ABDOMINAL PAIN Hospital Course Hospital Course 52-year-old female who was admitted for management of recurrent nausea vomiting. At the time of admission there was concern for ileus related to electrolyte imbalance. Patient does use medical marijuana. Endorses to drinking alcohol. CT scan of abdomen pelvis did not show any acute pathological findings. She did well with GI soft diet. She was able to tolerate her diet. Electrolytes were replenished. Her antibiotics were discontinued. Her lactic acidosis which was secondary to dehydration improved with IV fluid hydration. She remained hemodynamically stable and afebrile. Her cyclical vomiting is most likely related to alcohol induced gastropathy and marijuana. Her last marijuana use was about 3 weeks ago. I did food counselor patient regarding the side effects and talking with her PCP if alternatives could be used. She does not need antibiotics at the time of discharge. She does have antiemetics. Leukocytosis improved on the day of discharge. Patient was very anxious to return home as soon as possible. Physical Exam Narrative: Awake and alert Able to walk on her own Signs of dehydration improving Mild nominal soreness midepigastric and otherwise no rigidity guarding or peritonitis Nonfocal neuro exam Awake and alert Currently on room air S1, S2 no signs of respiratory distress Discharge Data Studies Completed and Pending Completed Studies During Hospitalization Category Date Time Status CT abdomen pelvis wo con [id number] Stat Cat Scan 04/09/22 16:16 Completed XR chest 1V portable [id number] Stat Exams 04/09/22 18:27 Completed Pending at discharge Category Date Time Status Blood Culture Routine Lab 04/09/22 22:24 Results Complete Blood Count w/Auto AM LABS Lab 04/12/22 04:00 Ordered Comprehensive Metabolic Panel AM LABS Lab 04/12/22 04:00 Ordered Magnesium AM LABS Lab 04/12/22 04:00 Ordered Phosphorus AM LABS Lab 04/12/22 04:00 Ordered Radiology Impressions Abdomen/Pelvis CT 04/09/22 16:16 IMPRESSION: 1. No acute finding in the abdomen or pelvis. COMMENTS: Consistent with the [employer] [place] [employer]'s Incidental Findings Committee white paper (J Am Marga Radiol 2018): Any incidental renal lesion less than 1 cm or classified as too small to characterize, or any incidental cystic renal lesion characterized as simple-appearing, is likely benign. No follow-up imaging is recommended for these lesions per consensus recommendations based on imaging criteria. Chest X-Ray 04/09/22 18:27 IMPRESSION: No acute findings. Laboratory Results WBC 11.6 10^3/uL (4.0-10.0) H 04/11/22 05:27 RBC 4.47 10^6/uL (4.1-5.3) 04/11/22 05:27 Hgb 13.9 g/dL (11.5-15.3) 04/11/22 05:27 Hct 42.5 % (37.0-47.0) 04/11/22 05:27 MCV 95.1 fl (81-99) D 04/11/22 05:27 MCH 31.1 pg (28.0-34.0) 04/11/22 05:27 MCHC 32.7 g/dL (30.0-36.0) 04/11/22 05:27 RDW 13.9 % (12.1-15.1) 04/11/22 05:27 Plt Count 370 10^3/cmm (130-400) 04/11/22 05:27 MPV 10.0 fL (7.4-10.4) 04/11/22 05:27 Neut % (Auto) 67.1 % 04/11/22 05:27 Lymph % (Auto) 22.6 % 04/11/22 05:27 [place] % (Auto) 9.3 % 04/11/22 05:27 Eos % (Auto) 0.4 % 04/11/22 05:27 Baso % (Auto) 0.3 % 04/11/22 05:27 Neut # (Auto) 7.78 10^3/uL (1.8-7.7) H 04/11/22 05:27 Lymph # (Auto) 2.6 10^3/uL (0.8-4.8) 04/11/22 05:27 [place] # (Auto) 1.1 10^3/uL (0.2-0.9) H 04/11/22 05:27 Eos # (Auto) 0.1 10^3/uL (0.0-0.8) 04/11/22 05:27 Baso # (Auto) 0.0 10^3/uL (0.0-0.1) 04/11/22 05:27 Nucleated RBC % (auto) 0 % 04/11/22 05:27 Nucleated RBCs # 0.0 /100WBC 04/11/22 05:27 PT 12.80 SECONDS (12.1-14.9) 04/10/22 08:50 INR 0.93 (0.8-1.2) 04/10/22 08:50 Sodium 134 mmol/L (136-145) L 04/11/22 05:27 Potassium 3.8 mmol/L (3.5-5.1) 04/11/22 05:27 Chloride 94 mmol/L (98-107) L 04/11/22 05:27 Carbon Dioxide 24 mmol/L (22-29) 04/11/22 05:27 Anion Gap 19.8 (5-19) H 04/11/22 05:27 BUN 9 mg/dL (6-20) 04/11/22 05:27 Creatinine 0.7 mg/dL (0.5-0.9) 04/11/22 05:27 GFR Calculation 87.2 mL/min (90-130) L 04/11/22 05:27 Glucose 119 mg/dL (65-115) H 04/11/22 05:27 Estimat Average Glucose 108 04/09/22 15:35 Hemoglobin A1c 5.4 % (4.0-6.0) 04/09/22 15:35 Calculated Osmolality 278 mOsm/kg (285-295) L 04/11/22 05:27 Lactic Acid Cancelled 04/10/22 06:40 Lactic Acid (Sepsis) 5.1 mmol/L (0.5-2.2) H* 04/10/22 12:18 Lactate 0.8 mmol/L (0.5-2.2) 04/10/22 08:50 Calcium 10.0 mg/dL (8.5-10.5) 04/11/22 05:27 Phosphorus 1.6 mg/dL (2.5-4.5) L 04/11/22 05:27 Magnesium 2.3 mg/dL (1.7-2.3) 04/11/22 05:27 Total Bilirubin 0.5 mg/dL (0.15-1.2) 04/11/22 05:27 AST 29 U/L (0-32) 04/11/22 05:27 ALT 15 U/L (0-33) 04/11/22 05:27 Alkaline Phosphatase 116 IU/L (35-105) H 04/11/22 05:27 Creatine Kinase 203 U/L (26-192) H 04/09/22 15:35 Total Protein 7.7 g/dL (6.6-8.7) 04/11/22 05:27 Albumin 4.3 g/dL (3.5-5.2) 04/11/22 05:27 Globulin 3.4 g/dL (1.3-4.6) 04/11/22 05:27 Amylase 115 U/L (28-100) H 04/09/22 15:35 Lipase 24 U/L (13-60) 04/09/22 15:35 Procalcitonin 0.05 ng/mL (0-0.5) 04/09/22 15:35 TSH 0.91 uIU/mL (0.27-4.20) 04/09/22 15:35 Urine Color Yellow (Yellow) 04/10/22 03:10 Urine Appearance Clear (CLEAR) 04/10/22 03:10 Urine pH 6 (5-7) 04/10/22 03:10 Ur Specific [place] 1.020 (1.005-1.030) 04/10/22 03:10 Urine Protein 3+ (Negative) H 04/10/22 03:10 Urine Glucose (UA) Norm (Normal) 04/10/22 03:10 Urine Ketones 1+ (Negative) H 04/10/22 03:10 Urine Blood 3+ (Negative) H 04/10/22 03:10 Urine Nitrate Negative (Negative) 04/10/22 03:10 Urine Bilirubin Neg (Negative) 04/10/22 03:10 Urine Urobilinogen Norm mg/dL (Negative) 04/10/22 03:10 Ur Leukocyte Esterase Negative (Negative) 04/10/22 03:10 Urine RBC 0-4 /hpf (0-2) H 04/10/22 03:10 Urine WBC 5-10 /hpf (0-5) H 04/10/22 03:10 Ur Squamous Epith Cells 5-10 /hpf (0-5) H 04/10/22 03:10 Amorphous Sediment Not Reportable 04/10/22 03:10 Urine Bacteria Trace /hpf (NONE) 04/10/22 03:10 Urine Mucus Trace /hpf 04/10/22 03:10 Urine Opiates Screen Positive ng/mL (Negative) H 04/10/22 03:10 Ur Barbiturates Screen Negative ng/mL (Negative) 04/10/22 03:10 Ur Phencyclidine Scrn Negative ng/mL (Negative) 04/10/22 03:10 Ur Amphetamines Screen Negative ng/mL (Negative) 04/10/22 03:10 U Benzodiazepines Scrn Negative ng/mL (Negative) 04/10/22 03:10 Urine Cocaine Screen Negative ng/mL (Negative) 04/10/22 03:10 U Marijuana (THC) Screen Positive ng/mL (Negative) H 04/10/22 03:10 Ethyl Alcohol < 10 mg/dL (0-10) 04/09/22 15:35 Serum Ketones Negative (Negative) 04/09/22 15:35 Vitals Last Vital Signs Temp 98.6 F 04/11/22 07:39 Pulse 96 04/11/22 07:39 Resp 16 04/11/22 07:39 BP 132/79 04/11/22 07:39 Pulse Ox 98 04/11/22 07:39 O2 Del Method 04/11/22 07:39 O2 Flow Rate 3 04/10/22 20:00 Discharge Plan Discharge Patient Disposition: Home Condition: Stable Prescriptions: New acetaminophen 500 mg tablet 500 mg PO Q6H PRN (Reason: pain) 5 Days Qty: 20 0RF Maalox Advanced 1,000-60 mg tablet,chewable 1 tab PO TID PRN (Reason: abdominal pain) 7 Days Qty: 21 0RF Pepcid 20 mg tablet 20 mg PO BID PRN (Reason: abdominal pain) 10 Days Qty: 20 0RF ondansetron 4 mg tablet,disintegrating 4 mg PO TID PRN (Reason: nausea and vomiting) 4 Days Qty: 12 0RF thiamine mononitrate (vit B1) 100 mg tablet 100 mg PO DAILY Qty: 30 0RF folic acid 1 mg tablet 1 mg PO DAILY Qty: 30 0RF Continued multivitamin [Daily Multi-Vitamin] Tablet 1 tab PO DAILY Cymbalta 60 mg capsule,delayed release(DR/EC) 60 mg PO BID Qty: 60 0RF metoprolol tartrate 25 mg tablet 25 mg PO BID Qty: 180 3RF baclofen 20 mg Tablet 20 mg PO TID PRN (Reason: Muscle Spasm) albuterol sulfate [Ventolin HFA] 90 mcg/actuation Hfa Aerosol Inhaler 1 - 2 puff INHALATION QID PRN (Reason: Shortness Of Breath) pantoprazole 40 mg tablet,delayed release (DR/EC) 40 mg PO BID ketoconazole 2 % shampoo 1 applic topical Q7D Rx Instructions: Lather into scalp 1 time weekly. Allow to sit on scalp for 5 minutes before rinsing. ascorbic acid (vitamin C) [Vitamin C] 500 mg Tablet 500 mg PO QAM Skyrizi 150 mg/mL pen injector 150 mg SUBCUT .EVERY 12 WEEKS ondansetron 4 mg tablet,disintegrating 4 mg PO Q8H PRN (Reason: Nausea And Vomiting) 14 Days Qty: 25 0RF metoclopramide HCl [Reglan] 10 mg tablet 10 mg PO Q6H PRN (Reason: nausea and vomiting) Qty: 20 0RF amlodipine 10 mg tablet 10 mg PO BEDTIME pregabalin 100 mg capsule 100 mg PO BID aspirin 81 mg tablet,delayed release (DR/EC) 81 mg PO QAM Discharge Orders: Discharge Order (Routine); Ordered 04/11/22 Ordered By: Tania Peck Referrals: Bucky Rogers MD [Primary Care Provider] - 04/18/22 10:30 am Discharge Diet: Advance as tolerated Discharge Activity: Increase activity as tolerated Patient Instructions: Alcohol Withdrawal, Abdominal Pain (ED), Opioid Safety Discharge Attestations Time Spent in Discharge Care*: less than 30 min Status at Discharge: Cognitive status at discharge: cognitively intact, Behavioral status at discharge: cooperative, Quality Metrics Clinical Quality Measures [ No reported AMI, CVA or VTE this stay] Coding Level of Care Code Acute Chg FW DC note Diagnoses Alcohol withdrawal F10.939 Intractable nausea and vomiting R11.2 Hypertensive urgency I16.0 Cyclical vomiting R11.15
[2022-04-11] MEDS: multivitamin therapeutic Tablet 1 TAB PO (08:46)
[2022-04-11] MEDS: thiamine 100 mg Tablet PO (08:46)
[2022-04-11] MEDS: folic acid 1 mg Tablet PO (08:46)
== END 2022-04-11 09:51 | disposition home or self-care (01) ==
LOC: ER 19:42 → MEDSURG 20:43
PROVIDERS: Admitting Provider Family Medicine; Emergency Provider Emergency Medicine; PCP Family Medicine; Visit Provider Internal Medicine
DX: F10.939 Alcohol use, unspecified with withdrawal, unspecified (principal); R11.2 Nausea with vomiting, unspecified; I16.0 Hypertensive urgency; R11.15 Cyclical vomiting syndrome unrelated to migraine; F41.9 Anxiety disorder, unspecified; Z86.73 Personal history of transient ischemic attack (TIA), and cerebral infarction without residual deficits; I10 Essential (primary) hypertension; F17.210 Nicotine dependence, cigarettes, uncomplicated
CPT/HCPCS: 36415; 71045; 74176; 80053; 80306; 80307; 81001; 82009; 82150; 82550; 83036; 83605; 83690; 83735; 84100; 84145; 84443; 85025; 85610; 87040; 96365; 96372; 96375; 96376; 99285; C9113; G0378; J1650; J2270; J2405; J2550; J2765; J3411; J3475; J3480; J3490; J7030

== ENCOUNTER 2022-05-11 01:10 | Observation (INO) | payer MEDICARE, MEDICAID, SELFPAY ==
[2022-05-11] VITALS (8 sets, daily range): BP systolic 144–188; BP diastolic 105–119; PULSE 74–100; RESP 16–20; TEMP 36.3–37.2; O2SAT 90–97; BMI 25.8
--- NOTE | 2022-05-11 01:18 | W.ED.ABDPA2 ---
HPI - Abdominal Pain General: Chief Complaint: Abdominal Pain Stated Complaint: N/V Time Seen by Provider: 05/11/22 01:11 Source: patient and EMS Mode of arrival: EMS Limitations: no limitations History of Present Illness: 52-year-old female who states she been having nausea vomiting over the last 3 days she is having some upper abdominal pain as well. She does smoke marijuana is a former alcoholic she had GI issues in the past with cyclical vomiting. She states her pain is a cramping pain rated 4 out of 10 she denies any fever denies any worsening to affect denies any diarrhea. Associated Symptoms: Reports nausea and vomiting; Denies chills, diarrhea, dysuria and fever(s) Review of Systems Const: Denies: fever(s), chills, body aches or change in appetite Eyes: Denies: blurry vision or eye discomfort ENMT: Denies: throat pain or dental pain Card: Denies: chest pain Resp: Denies: dyspnea GI: Reports: abdominal pain, nausea and vomiting; Denies: diarrhea : Denies: dysuria Musc: Denies: neck pain or back pain Skin/Breast: Denies: rash Neuro: Denies: headache(s) Psych: Denies: depression Ba/Lymph: Denies: easy bruising All/Imm: Denies: urticaria PFSH ED PFSH: Medical History Abdominal pain Abdominal pain Acute kidney injury Alcohol withdrawal Anxiety Cannabinoid hyperemesis syndrome Cannabis dependence, uncomplicated CVA (cerebral vascular accident) Cyclical vomiting Dehydration Elevated troponin FH: cholecystectomy GI bleed High risk medication use Hyperemesis Hypertension Hypertensive urgency Intractable nausea and vomiting Leukocytosis Major depressive disorder, recurrent, in partial remission Memory loss Nausea & vomiting Nausea and vomiting Plaque psoriasis Post-traumatic stress disorder, chronic Psoriatic arthritis Surgical History History of ankle surgery History of eye surgery History of hysterectomy History of pelvic surgery History of shoulder surgery History of toe surgery Family History Other CAD (coronary artery disease) Cancer Diabetes Hypertension Lung disease Social History Smoking and tobacco status: current some day smoker cigarettes Alcohol intake: current Physical Exam Const: COMMON NORMALS: no acute distress, patient oriented x3 and healthy appearing HENMT: COMMON NORMALS: normocephalic and atraumatic HEAD & SCALP: normocephalic and atraumatic Eye: COMMON NORMALS: Equal, round and reactive pupils present and EOMs intact bilaterally PUPIL: Yes Equal, round and reactive pupils present Neck/C-Spine: COMMON NORMALS: full ROM and supple Chest: COMMONS NORMALS: normal inspection of the chest and normal palpation of entire chest wall Resp: COMMON NORMALS: normal respiratory effort, No retractions, No use of accessory muscles and clear to auscultation bilaterally AUSCULTATION: clear to auscultation bilaterally Cardio: COMMON NORMALS: regular rate, regular rhythm and No murmurs present (Cardio) RATE: regular rate RHYTHM: regular rhythm GI: COMMON NORMALS: Normal to inspection, nondistended, normoactive bowel sounds present, Soft to palpation, non-tender and no masses PALPATION: Yes Soft to palpation Extremity: COMMON NORMALS: normal to inspection and full ROM Neuro: COMMON NORMALS: patient oriented x3, moves all extremities and no focal motor deficits Psych: COMMON NORMALS: mental status grossly normal, Normal thought process present and cooperative THOUGHT PROCESS: Normal thought process present Skin: COMMON NORMALS: no rashes or lesions noted and no wounds GENERAL SKIN EXAM: no rashes or lesions noted Course Vital Signs: Vital signs: Vital Signs Temperature 97.4 F L 05/11/22 01:14 Pulse Rate 92 05/11/22 01:14 Respiratory Rate 16 05/11/22 01:14 Blood Pressure 144/105 05/11/22 01:14 Pulse Oximetry 97 05/11/22 01:14 Oxygen Delivery Me thod 05/11/22 01:14 MDM - Abdominal Pain Medical Decision Making Patient presents here with vomiting she is also hyponatremic and hypokalemic likely from her vomiting she does feel improved. With with her electrolyte abnormalities will admit for observation for replacement abdominal exam here is benign. Lab Data : 05/11/22 01:23 05/11/22 02:19 Labs/Radiology: Laboratory Results WBC 14.3 10^3/uL (4.0-10.0) H 05/11/22 01:23 RBC 4.92 10^6/uL (4.1-5.3) 05/11/22 01:23 Hgb 15.2 g/dL (11.5-15.3) 05/11/22 01:23 Hct 43.7 % (37.0-47.0) 05/11/22 01:23 MCV 88.8 fl (81-99) 05/11/22 01:23 MCH 30.9 pg (28.0-34.0) 05/11/22 01:23 MCHC 34.8 g/dL (30.0-36.0) 05/11/22 01:23 RDW 12.7 % (12.1-15.1) 05/11/22 01:23 Plt Count 355 10^3/cmm (130-400) 05/11/22 01:23 MPV 10.3 fL (7.4-10.4) 05/11/22 01:23 Neut % (Auto) 75.7 % 05/11/22 01:23 Lymph % (Auto) 12.4 % 05/11/22 01:23 [place] % (Auto) 10.2 % 05/11/22 01:23 Eos % (Auto) 1.0 % 05/11/22 01:23 Baso % (Auto) 0.1 % 05/11/22 01:23 Neut # (Auto) 10.82 10^3/uL (1.8-7.7) H 05/11/22 01:23 Lymph # (Auto) 1.8 10^3/uL (0.8-4.8) 05/11/22 01:23 [place] # (Auto) 1.5 10^3/uL (0.2-0.9) H 05/11/22 01:23 Eos # (Auto) 0.2 10^3/uL (0.0-0.8) 05/11/22 01:23 Baso # (Auto) 0.0 10^3/uL (0.0-0.1) 05/11/22 01:23 Nucleated RBC % (auto) 0 % 05/11/22 01:23 Nucleated RBCs # 0.0 /100WBC 05/11/22 01:23 Sodium 122 mmol/L (136-145) L 05/11/22 02:19 Potassium 2.5 mmol/L (3.5-5.1) L* 05/11/22 02:19 Chloride 75 mmol/L (98-107) L 05/11/22 02:19 Carbon Dioxide 31 mmol/L (22-29) H 05/11/22 02:19 Anion Gap 18.5 (5-19) 05/11/22 02:19 BUN 19 mg/dL (6-20) 05/11/22 02:19 Creatinine 1.0 mg/dL (0.5-0.9) H 05/11/22 02:19 GFR Calculation 57.8 mL/min (90-130) L 05/11/22 02:19 Glucose 118 mg/dL (65-115) H 05/11/22 02:19 Calculated Osmolality 257 mOsm/kg (285-295) L 05/11/22 02:19 Calcium 9.8 mg/dL (8.5-10.5) 05/11/22 02:19 Total Bilirubin 0.6 mg/dL (0.15-1.2) 05/11/22 02:19 AST 28 U/L (0-32) 05/11/22 02:19 ALT 15 U/L (0-33) 05/11/22 02:19 Alkaline Phosphatase 129 U/L (35-105) H 05/11/22 02:19 Total Protein 8.4 g/dL (6.6-8.7) 05/11/22 02:19 Albumin 4.4 g/dL (3.5-5.2) 05/11/22 02:19 Globulin 4.0 g/dL (1.3-4.6) 05/11/22 02:19 Lipase 23 U/L (13-60) 05/11/22 02:19 Urine Color Yellow (Yellow) 05/11/22 02:36 Urine Appearance Clear (CLEAR) 05/11/22 02:36 Urine pH 7 (5-7) 05/11/22 02:36 Ur Specific [place] 1.010 (1.005-1.030) 05/11/22 02:36 Urine Protein 2+ (Negative) H 05/11/22 02:36 Urine Glucose (UA) Norm (Normal) 05/11/22 02:36 Urine Ketones 1+ (Negative) H 05/11/22 02:36 Urine Blood 2+ (Negative) H 05/11/22 02:36 Urine Nitrate Negative (Negative) 05/11/22 02:36 Urine Bilirubin Neg (Negative) 05/11/22 02:36 Urine Urobilinogen 1 mg/dL (Negative) H 05/11/22 02:36 Ur Leukocyte Esterase 1+ (Negative) H 05/11/22 02:36 Amorphous Sediment Not Reportable 05/11/22 02:36 Ethyl Alcohol < 10 mg/dL (0-10) 05/11/22 02:19 Discharge Plan Discharge Patient Disposition: Admitted As Inpatient Clinical Impression: Acute hypokalemia, Acute hyponatremia, Vomiting Condition: Stable Coding Level of Care Code ED Production Or Plant Engineer for Chg Fwd Exam Comprehensive
[2022-05-11] MEDS: metoclopramide 5 mg/mL SDV 2 mL 10 MG IVP (02:15)
[2022-05-11] MEDS: diphenhydrAMINE 50 mg/mL SDV 1mL IVP (02:15)
[2022-05-11] MEDS: sodium chloride 0.9% 1,000 ML 999 ML IV (02:15)
--- NOTE | 2022-05-11 02:28 | PC.NURSE ---
Pt. is very difficult to get I.V. access on . I successfully placed 22 gauge I.V. catheter in left hand . I.V. flushed appropriately. I was able to give patient ordered medicine. I explained to patient that she should be careful with the I.V. site , due to the difficulty of obtaining access. As the fluid bolus was going , I was going to put a hand board on patient to immobilize the site. The patient reached to bottom of bed to adjust cover and pull herself up. I noticed that the site became infiltrated. I stopped the I.V. and pulled the catheter from her hand and bandaged the area. At this time physician said to hold on I.V. until we know if it is needed.
[2022-05-11 02:31] LABS: Basophils % 0.1 %; Eosinophils # 0.2 10^3/uL (0.0-0.8); Hematocrit 43.7 % (37.0-47.0); Hemoglobin 15.2 g/dL (11.5-15.3); Lymphocytes # 1.8 10^3/uL (0.8-4.8); Lymphocytes % 12.4 %; Mean Corpuscular HGB Conc 34.8 g/dL (30.0-36.0); Mean Corpuscular Hemoglobin 30.9 pg (28.0-34.0); Mean Corpuscular Volume 88.8 fl (81-99); Mean Platelet Volume 10.3 fL (7.4-10.4); Monocytes # 1.5 10^3/uL (0.2-0.9); Monocytes % 10.2 %; Neutrophils # 10.82 10^3/uL (1.8-7.7); Neutrophils % 75.7 %; Nucleated Red Blood Cells % 0 %; Platelet Count 355 10^3/cmm (130-400); Positive M 1; Red Blood Count 4.92 10^6/uL (4.1-5.3); Red Cell Distribution Width 12.7 % (12.1-15.1); White Blood Count 14.3 10^3/uL (4.0-10.0)
[2022-05-11 02:32] LABS: Slide Review Slide Review Perform
[2022-05-11 02:43] LABS: Alanine Aminotransferase 15 U/L (0-33); Albumin Level 4.4 g/dL (3.5-5.2); Alkaline Phosphatase 129 U/L (35-105); Blood Urea Nitrogen 19 mg/dL (6-20); Calcium 9.8 mg/dL (8.5-10.5); Carbon Dioxide 31 mmol/L (22-29); Chloride 75 mmol/L (98-107); Glomerular Filtration Rate 57.8 mL/min (90-130); Glucose 118 mg/dL (65-115); Lipase 23 U/L (13-60); Osmolality Calculated 257 mOsm/kg (285-295); Sodium 122 mmol/L (136-145); Total Bilirubin 0.6 mg/dL (0.15-1.2); Total Protein 8.4 g/dL (6.6-8.7)
[2022-05-11 02:45] LABS: Alcohol Level < 10 mg/dL (0-10)
[2022-05-11 02:46] LABS: Anion Gap 18.5 (5-19)
[2022-05-11 02:47] LABS: Aspartate Amino Transferase 28 U/L (0-32)
[2022-05-11 02:51] LABS: Potassium 2.5 mmol/L (3.5-5.1)
[2022-05-11 02:51] LABS: Protein Urine 2+ (Negative); Urine Appearance Clear (CLEAR); Urine Color Yellow (Yellow); pH Urine 7 (5-7)
[2022-05-11 02:52] LABS: Add Urine Microscopic? YES; Bilirubin Urine Neg (Negative); Blood Urine 2+ (Negative); Glucose Urine UA Norm (Normal); Ketones Urine 1+ (Negative); Leukocyte Esterase Urine 1+ (Negative); Nitrate Urine Negative (Negative); Urobilinogen Urine 1 mg/dL (Negative)
[2022-05-11 03:08] LABS: Magnesium 1.9 mg/dL (1.7-2.3)
[2022-05-11] MEDS: potassium chloride ER 20 mEq Tablet 80 MEQ PO (03:10)
[2022-05-11 03:34] LABS: Add Urine Culture? No; Amorphous Sediment Urine 1+ /hpf; Bacteria Urine 1+ /hpf; Squamous Epithelial Cell Urine 15-25 /hpf (0-5)
--- NOTE | 2022-05-11 04:22 | P.HP_ITS ---
Providers/Chief Complaint Admitting Physician: Tania Peck MD Primary Care Provider: Bucky Rogers MD Chief Complaint: N/V History of Present Illness Rachelle Mireles is a 52 year old female who has been experiencing recurrent nausea vomiting since Saturday. Patient is stating the last time she smoked marijuana was Saturday and then she could not eat for next 3 days, her last meal was on Saturday, her cyclical vomiting got worse today that is what she wanted to come to the hospital for further evaluation. She has not noticed any fever, chest pain, shortness of breath however she is endorsing diarrhea and abdominal pain. In the ER he was diagnosed with dehydration, hyponatremia, hypokalemia, urinary ketones positive She is being admitted for IV fluid hydration urine sample seems contaminated Review of Systems Const: Reports: fatigue; Denies: body aches Eyes: Denies: change in vision ENMT: Denies: throat pain Card: Denies: chest pain Resp: Denies: dyspnea GI: Reports: abdominal pain, nausea, vomiting and diarrhea : Denies: flank pain Musc: Denies: neck pain Skin/Breast: Denies: rash Neuro: Denies: headache(s) Psych: Reports: anxiety Endo: Denies: polyuria Ba/Lymph: Denies: easy bruising All/Imm: Denies: urticaria Medications/Allergies Home Medications Medication Instructions Recorded Confirmed Last Taken Type duloxetine 60 mg capsule,delayed 60 mg PO BID #60 caps 02/15/20 04/09/22 09/20/21 Rx release (Cymbalta) multivitamin (Daily Multi-Vitamin) 1 tab PO DAILY 04/20/20 04/09/22 09/20/21 History albuterol sulfate 90 mcg/actuation 1 - 2 puff inhalation QID PRN 07/13/21 04/09/22 2 Weeks Ago History aerosol inhaler (Ventolin HFA) Shortness Of Breath ~09/07/21 baclofen 20 mg tablet 20 mg PO TID PRN Muscle Spasm 07/13/21 04/09/22 2 Weeks Ago History ~09/07/21 ascorbic acid (vitamin C) 500 mg 500 mg PO QAM 09/04/21 04/09/22 09/20/21 History tablet (Vitamin C) ketoconazole 2 % shampoo 1 applic topical Q7D 09/04/21 04/09/22 2 Weeks Ago History ~09/07/21 pantoprazole 40 mg tablet,delayed 40 mg PO BID 09/04/21 04/09/22 09/20/21 History release metoprolol tartrate 25 mg tablet 25 mg PO BID #180 tabs 10/24/21 04/09/22 Unknown Rx risankizumab-rzaa 150 mg/mL 150 mg SUBCUT .EVERY 12 WEEKS 01/21/22 04/09/22 04/02/22 History subcutaneous pen injector (Sarah) ondansetron 4 mg disintegrating 4 mg PO Q8H PRN Nausea And 01/22/22 04/09/22 Unknown Rx tablet Vomiting 14 days #25 tabs metoclopramide HCl 10 mg tablet 10 mg PO Q6H PRN nausea and 02/13/22 04/09/22 Unknown Rx (Reglan) vomiting #20 tabs amlodipine 10 mg tablet 10 mg PO BEDTIME 04/09/22 04/09/22 Unknown History aspirin 81 mg tablet,delayed 81 mg PO QAM 04/09/22 04/09/22 Unknown History release pregabalin 100 mg capsule 100 mg PO BID 04/09/22 04/09/22 Unknown History folic acid 1 mg tablet 1 mg PO DAILY #30 tabs 04/11/22 Unknown Rx thiamine mononitrate (vit B1) 100 100 mg PO DAILY #30 tabs 04/11/22 Unknown Rx mg tablet Allergies Allergy/AdvReac Type Severity Reaction Status Date / Time adhesive tape Allergy Intermediate rash, red Verified 04/09/22 16:50 codeine Allergy ALGY-Anaphy Verified 04/09/22 16:50 laxis paroxetine [From Paxil] Allergy Unconscious Verified 04/09/22 16:50 PFSH Acute PFSH: Medical History Abdominal pain Abdominal pain Acute kidney injury Alcohol withdrawal Anxiety Cannabinoid hyperemesis syndrome Cannabis dependence, uncomplicated CVA (cerebral vascular accident) Cyclical vomiting Dehydration Elevated troponin FH: cholecystectomy GI bleed High risk medication use Hyperemesis Hypertension Hypertensive urgency Intractable nausea and vomiting Leukocytosis Major depressive disorder, recurrent, in partial remission Memory loss Nausea & vomiting Nausea and vomiting Plaque psoriasis Post-traumatic stress disorder, chronic Psoriatic arthritis Surgical History History of ankle surgery History of eye surgery History of hysterectomy History of pelvic surgery History of shoulder surgery History of toe surgery Family History Other CAD (coronary artery disease) Cancer Diabetes Hypertension Lung disease Social History Smoking and tobacco status: current some day smoker cigarettes Alcohol intake: current Vitals/I&O/Wt Last Vital Signs Temp 97.4 F L 05/11/22 01:14 Pulse 92 05/11/22 01:14 Resp 16 05/11/22 01:14 BP 144/105 05/11/22 01:14 Pulse Ox 97 05/11/22 01:14 O2 Del Method 05/11/22 01:14 Weight last 48 hrs Weight 72.575 kg Physical Exam Narrative: Awake and alert Looks older than stated age Dehydrated Abdomen is sore Otherwise soft No abdominal distention Bowel sound present S1, S2 Tachycardia EOMI, PERRLA Nonfocal neuro exam Skin tattoos Patient appears anxious No signs of cellulitis Data : 05/11/22 01:23 05/11/22 02:19 A&P Assessment and plan (1) Vomiting: Status: Acute (2) Acute hyponatremia: Status: Acute (3) Acute hypokalemia: Status: Acute Plan Cyclical vomiting Patient is dehydrated Starvation ketosis positive She does use medical marijuana IV fluid hydration Hypokalemia: Repleted Hyponatremia related to dehydration and hypovolemia: Continue IV fluid hydration Abnormal UA we will give her a dose of ceftriaxone Patient is full code I will put her on bland diet Alternate Reglan and Zofran Obtain KUB to rule out ileus Check phosphorus and magnesium level At risk of refeeding syndrome DVT prophylaxis Lovenox Attestations Medical Necessity Statement*: Anticipating discharge within 48 hours for management of cyclical vomiting Time Spent in Patient Care: 40 Coding Level of Care Code Acute Gas Distribution Supervisor for [place] Fwd Diagnoses Vomiting R11.10 Acute hyponatremia E87.1 Acute hypokalemia E87.6
[2022-05-11 04:43] LABS: Phosphorus 3.8 mg/dL (2.5-4.5)
[2022-05-11 04:49] LABS: Procalcitonin 0.05 ng/mL (0-0.5)
[2022-05-11] MEDS: promethazine 25 mg/mL SDV 1 mL IM (04:57)
[2022-05-11] MEDS: morphine IR 15 mg Tablet PO ×3 (04:57→17:29)
[2022-05-11] MEDS: enoxaparin 40 mg/0.4 mL Syringe SUBCUT (04:57)
[2022-05-11] MEDS: sodium chlor 0.9% + KCl 20 mEq 20 MEQ/1,000 ML BAG 100 MEQ IV (04:58)
--- NOTE | 2022-05-11 06:26 | XR_ITS ---
WS: [id number] KUB, AP view, 05/11/2022 Clinical Data: Cyclical vomiting Comparison: KUB, 01/22/2022. CT abdomen pelvis, 04/09/2022. Findings: No abnormal intraabdominal masses or calcifications are seen. There is no dilatated small bowel or ev idence of obstruction. There are clips in right upper quadrant from a cholecystectomy. The orthopedic screws and plates in t he pelvis remain in the same position. There is a 1.5 cm linear foreign body in the right lower quadr ant. XR/XR KUB portable [id number] Impression: Negative KUB.
[2022-05-11 09:55] LABS: Amphetamines Screen Urine Negative (Negative); Barbiturates Screen Urine Negative (Negative); Benzodiazepines Screen Urine Negative (Negative); Cocaine Screen Urine Negative (Negative); Opiate Screen Urine Negative (Negative); PCP Screen Urine Negative (Negative); THC Screen Urine Positive (Negative)
[2022-05-11] MEDS: ondansetron 4 MG Tablet PO ×2 (10:40→15:52)
--- NOTE | 2022-05-11 11:50 | PC.CHAP ---
Pastoral Care Encounter/Spiritual Assessment Type of Contact [] Declined chlorobutadiene scrubber operator visit [] Patient/Family/Request visit [] Outpatient visit [] Follow-up visit [] Physician referral [] Code/Alert [x] Routine visit [] Staff referral [] Actively dying [] Patient sleeping [] Family support [] [] Out of room [] Palliative care [] [] Receiving care in room [] Pre-surgical visit [] Trauma [] Long length of stay [] ICU visit [] Other: Relational/Emotional Strength [] Patient feels connected with others/family/visitors/staff [] Distress [] Loneliness/isolation [] Abandonment Spirituality of Patient [] Person of Ceci [] Attends Latter Day of their Ceci [] Believes in Prayer [] Reads Bible or Catholic materials [] There are Spiritual issues to be addressed Infection Control Manager Interventions [x] Prayer [] Active listening [] Non-anxious presence [] Spiritual/emotional support [] Crisis/trauma care [] Spiritual counseling [] Bereavement support [] Provided bereavement packet [] Provided Bible/devotional materials [] Provided toy/stuffed animal, coloring book to patient or family member [] Provided Communion [] Anointing/[place] [] Salvation [xx] Completed spiritual assessment [] Other: Impact on Illness or Injury [] Angry [] Fearful [] Anxious [] Often cries [] Exhaustion [] Unable to work [] Unable to attend spiritism [] Unable to walk/stand [] Unable to read [] Unable to drive [] Unable to eat/drink [] Unable to sleep [] Unable to be with family [] Patient intubated [] Other: Summary Time spent with patient 5 min
[2022-05-11 16:41] LABS: Anion Gap 17.8 (5-19); Blood Urea Nitrogen 21 mg/dL (6-20); Calcium 9.4 mg/dL (8.5-10.5); Carbon Dioxide 30 mmol/L (22-29); Chloride 79 mmol/L (98-107); Glomerular Filtration Rate 57.8 mL/min (90-130); Glucose 115 mg/dL (65-115); Osmolality Calculated 262 mOsm/kg (285-295); Sodium 124 mmol/L (136-145)
[2022-05-11 17:26] LABS: Potassium 2.8 mmol/L (3.5-5.1)
[2022-05-11] MEDS: pregabalin 100 mg Capsule PO (17:29)
[2022-05-11] MEDS: duloxetine 60 mg Capsule PO (17:29)
[2022-05-11] MEDS: pantoprazole DR 40 mg Tablet PO (17:30)
[2022-05-11] MEDS: potassium chloride oral liq 20 mEq/15 mL UDC 40 MEQ PO (17:46)
[2022-05-11] MEDS: acetaminophen 500 mg Tablet PO (20:25)
[2022-05-11] MEDS: metoprolol tartrate 25 mg Tablet PO (20:25)
[2022-05-11] MEDS: amlodipine 10 mg Tablet PO (20:25)
[2022-05-11] MEDS: metoclopramide 10 mg Tablet PO (21:22)
[2022-05-12] VITALS (7 sets, daily range): BP systolic 119–161; BP diastolic 80–105; PULSE 63–85; RESP 16–24; TEMP 36.5–36.9; O2SAT 90–94
[2022-05-12] MEDS: baclofen 10 mg Tablet 20 MG PO (01:10)
[2022-05-12] MEDS: morphine IR 15 mg Tablet PO ×2 (01:10→09:07)
[2022-05-12 04:50] LABS: Basophils # 0.1 10^3/uL (0.0-0.1); Basophils % 0.4 %; Eosinophils # 0.2 10^3/uL (0.0-0.8); Eosinophils % 1.7 %; Hematocrit 43.9 % (37.0-47.0); Lymphocytes # 3.4 10^3/uL (0.8-4.8); Lymphocytes % 25.2 %; Mean Corpuscular HGB Conc 34.2 g/dL (30.0-36.0); Mean Corpuscular Hemoglobin 30.5 pg (28.0-34.0); Mean Corpuscular Volume 89.2 fl (81-99); Mean Platelet Volume 10.9 fL (7.4-10.4); Monocytes # 1.9 10^3/uL (0.2-0.9); Monocytes % 14.2 %; Neutrophils # 7.71 10^3/uL (1.8-7.7); Neutrophils % 57.9 %; Nucleated Red Blood Cells % 0 %; Platelet Count 338 10^3/cmm (130-400); Red Blood Count 4.92 10^6/uL (4.1-5.3); Red Cell Distribution Width 12.7 % (12.1-15.1); White Blood Count 13.3 10^3/uL (4.0-10.0)
[2022-05-12 05:20] LABS: Alanine Aminotransferase 17 U/L (0-33); Albumin Level 4.2 g/dL (3.5-5.2); Alkaline Phosphatase 117 U/L (35-105); Blood Urea Nitrogen 24 mg/dL (6-20); C Reactive Protein 4.4 mg/L (0.0-4.9); Calcium 9.5 mg/dL (8.5-10.5); Carbon Dioxide 30 mmol/L (22-29); Chloride 84 mmol/L (98-107); Globulin 2.9 g/dL (1.3-4.6); Glomerular Filtration Rate 57.8 mL/min (90-130); Glucose 103 mg/dL (65-115); Magnesium 2.1 mg/dL (1.7-2.3); Osmolality Calculated 268 mOsm/kg (285-295); Sodium 127 mmol/L (136-145); Total Bilirubin 0.4 mg/dL (0.15-1.2); Total Protein 7.1 g/dL (6.6-8.7)
[2022-05-12] MEDS: enoxaparin 40 mg/0.4 mL Syringe SUBCUT (05:40)
[2022-05-12] MEDS: aspirin 81 mg EC Tablet PO (05:40)
--- NOTE | 2022-05-12 05:54 | PC.NURSE ---
Pt laying in bed watching tv. No complaints of nausea thus far this shift. Administered Reglan once for heartburn. Pt requesting apple juice at this time. Unable to obtain IV access thus shift. Charge nurse/House Sup aware
[2022-05-12 06:01] LABS: Aspartate Amino Transferase 32 U/L (0-32)
[2022-05-12] MEDS: ondansetron 4 MG Tablet PO (08:24)
[2022-05-12] MEDS: duloxetine 60 mg Capsule PO (09:01)
[2022-05-12] MEDS: thiamine 100 mg Tablet PO (09:02)
[2022-05-12] MEDS: pregabalin 100 mg Capsule PO (09:02)
[2022-05-12] MEDS: metoprolol tartrate 25 mg Tablet PO (09:02)
[2022-05-12] MEDS: pantoprazole DR 40 mg Tablet PO (09:02)
--- NOTE | 2022-05-12 12:23 | P.DS_ITS ---
Discharge Providers Date of Admission: 05/11/22 03:00 Date of Discharge: May 12, 2022 Attending Provider at Admission: Tania Peck MD Attending Provider at Discharge: Adrian Agosto MD Primary Care Provider: Bucky Rogers MD Diagnoses at Discharge Discharge Diagnosis (1) Vomiting: Status: Acute (2) Acute hyponatremia: Status: Acute (3) Acute hypokalemia: Status: Acute Reason for Visit Reason for Visit: N/V Hospital Course Hospital Course Rachelle Mireles is a 52 year old female with past medical history of PTSD, NSAID induced gastritis, depression, cyclic vomiting syndrome who has been experiencing recurrent nausea vomiting since Saturday.? Patient is stating the last time she smoked marijuana was Saturday and then she could not eat for next 3 days, her last meal was on Saturday, her cyclical vomiting got worse today that is what she wanted to come to the hospital for further evaluation.? She has not noticed any fever, chest pain, shortness of breath however she is endorsing diarrhea and abdominal pain. She was admitted to admitted to the hospital for further evaluation and management. On admission she was found to be dehydrated and mild renal dy sfunction along with electrolyte abnormalities. Lipase was found to be within normal limits. It is believed her symptoms are most likely secondary to gastritis and cyclic vomiting induced with marijuana abuse. She was treated conservatively with IV hydration and was started on clear liquid diet along with [id number] PPIs. She responded well to the treatment and has been able to tolerate clear liquid diet for more than 24 hours. She has been discharged hemodynamically stable condition with advised to take Protonix twice daily, Carafate before meals and at bedtime. She is to continue taking multiple small meals daily for next 3 to 4 days and advance gradually to regular diet. She is to take clear liquid diet for now. Physical Exam Narrative: Awake and alert Looks older than stated age Dehydrated Abdomen is sore Otherwise soft No abdominal distention Bowel sound present S1, S2 Tachycardia EOMI, PERRLA Nonfocal neuro exam Skin tattoos Patient appears anxious No signs of cellulitis Discharge Data Studies Completed and Pending Completed Studies During Hospitalization Category Date Time Status XR KUB portable [id number] Routine Exams 05/11/22 06:26 Completed Radiology Impressions KUB X-Ray 05/11/22 06:26 Impression: Negative KUB. Laboratory Results WBC 13.3 10^3/uL (4.0-10.0) H 05/12/22 04:10 RBC 4.92 10^6/uL (4.1-5.3) 05/12/22 04:10 Hgb 15.0 g/dL (11.5-15.3) 05/12/22 04:10 Hct 43.9 % (37.0-47.0) 05/12/22 04:10 MCV 89.2 fl (81-99) 05/12/22 04:10 MCH 30.5 pg (28.0-34.0) 05/12/22 04:10 MCHC 34.2 g/dL (30.0-36.0) 05/12/22 04:10 RDW 12.7 % (12.1-15.1) 05/12/22 04:10 Plt Count 338 10^3/cmm (130-400) 05/12/22 04:10 MPV 10.9 fL (7.4-10.4) H 05/12/22 04:10 Neut % (Auto) 57.9 % 05/12/22 04:10 Lymph % (Auto) 25.2 % 05/12/22 04:10 [place] % (Auto) 14.2 % 05/12/22 04:10 Eos % (Auto) 1.7 % 05/12/22 04:10 Baso % (Auto) 0.4 % 05/12/22 04:10 Neut # (Auto) 7.71 10^3/uL (1.8-7.7) H 05/12/22 04:10 Lymph # (Auto) 3.4 10^3/uL (0.8-4.8) 05/12/22 04:10 [place] # (Auto) 1.9 10^3/uL (0.2-0.9) H 05/12/22 04:10 Eos # (Auto) 0.2 10^3/uL (0.0-0.8) 05/12/22 04:10 Baso # (Auto) 0.1 10^3/uL (0.0-0.1) 05/12/22 04:10 Nucleated RBC % (auto) 0 % 05/12/22 04:10 Nucleated RBCs # 0.0 /100WBC 05/12/22 04:10 Sodium 127 mmol/L (136-145) L 05/12/22 04:10 Potassium 4.0 mmol/L (3.5-5.1) 05/12/22 04:10 Chloride 84 mmol/L (98-107) L 05/12/22 04:10 Carbon Dioxide 30 mmol/L (22-29) H 05/12/22 04:10 Anion Gap 17.0 (5-19) 05/12/22 04:10 BUN 24 mg/dL (6-20) H 05/12/22 04:10 Creatinine 1.0 mg/dL (0.5-0.9) H 05/12/22 04:10 GFR Calculation 57.8 mL/min (90-130) L 05/12/22 04:10 Glucose 103 mg/dL (65-115) 05/12/22 04:10 Calculated Osmolality 268 mOsm/kg (285-295) L 05/12/22 04:10 Calcium 9.5 mg/dL (8.5-10.5) 05/12/22 04:10 Phosphorus 3.8 mg/dL (2.5-4.5) 05/11/22 02:19 Magnesium 2.1 mg/dL (1.7-2.3) 05/12/22 04:10 Total Bilirubin 0.4 mg/dL (0.15-1.2) 05/12/22 04:10 AST 32 U/L (0-32) 05/12/22 04:10 ALT 17 U/L (0-33) 05/12/22 04:10 Alkaline Phosphatase 117 U/L (35-105) H 05/12/22 04:10 C-Reactive Protein 4.4 mg/L (0.0-4.9) 05/12/22 04:10 Total Protein 7.1 g/dL (6.6-8.7) 05/12/22 04:10 Albumin 4.2 g/dL (3.5-5.2) 05/12/22 04:10 Globulin 2.9 g/dL (1.3-4.6) 05/12/22 04:10 Lipase 23 U/L (13-60) 05/11/22 02:19 Procalcitonin 0.05 ng/mL (0-0.5) 05/11/22 02:19 Urine Color Yellow (Yellow) 05/11/22 02:36 Urine Appearance Clear (CLEAR) 05/11/22 02:36 Urine pH 7 (5-7) 05/11/22 02:36 Ur Specific [place] 1.010 (1.005-1.030) 05/11/22 02:36 Urine Protein 2+ (Negative) H 05/11/22 02:36 Urine Glucose (UA) Norm (Normal) 05/11/22 02:36 Urine Ketones 1+ (Negative) H 05/11/22 02:36 Urine Blood 2+ (Negative) H 05/11/22 02:36 Urine Nitrate Negative (Negative) 05/11/22 02:36 Urine Bilirubin Neg (Negative) 05/11/22 02:36 Urine Urobilinogen 1 mg/dL (Negative) H 05/11/22 02:36 Ur Leukocyte Esterase 1+ (Negative) H 05/11/22 02:36 Urine RBC 10-15 /hpf (0-2) H 05/11/22 02:36 Urine WBC 5-10 /hpf (0-5) H 05/11/22 02:36 Ur Squamous Epith Cells 15-25 /hpf (0-5) H 05/11/22 02:36 Amorphous Sediment 1+ /hpf 05/11/22 02:36 Urine Bacteria 1+ /hpf (NONE) H 05/11/22 02:36 Urine Opiates Screen Negative ng/mL (Negative) 05/11/22 02:36 Ur Barbiturates Screen Negative ng/mL (Negative) 05/11/22 02:36 Ur Phencyclidine Scrn Negative ng/mL (Negative) 05/11/22 02:36 Ur Amphetamines Screen Negative ng/mL (Negative) 05/11/22 02:36 U Benzodiazepines Scrn Negative ng/mL (Negative) 05/11/22 02:36 Urine Cocaine Screen Negative ng/mL (Negative) 05/11/22 02:36 U Marijuana (THC) Screen Positive ng/mL (Negative) H 05/11/22 02:36 Ethyl Alcohol < 10 mg/dL (0-10) 05/11/22 02:19 Vitals Last Vital Signs Temp 97.7 F 05/12/22 12:00 Pulse 85 05/12/22 12:00 Resp 17 05/12/22 12:00 BP 159/105 05/12/22 12:00 Pulse Ox 91 05/12/22 12:00 O2 Del Method 05/12/22 12:00 Discharge Plan Discharge Patient Disposition: Home Condition: Stable Prescriptions: New alum-mag hydroxide-simeth [Maalox Maximum Strength] 400-400-40 mg/5 mL suspension 2.5 ml PO Q3H PRN (Reason: indigestion) Qty: 3000 0RF sucralfate [Carafate] 100 mg/mL suspension 1 g PO BID 56 Days Qty: 1120 0RF Continued multivitamin [Daily Multi-Vitamin] Tablet 1 tab PO DAILY Cymbalta 60 mg capsule,delayed release(DR/EC) 60 mg PO BID Qty: 60 0RF metoprolol tartrate 25 mg tablet 25 mg PO BID Qty: 180 3RF baclofen 20 mg Tablet 20 mg PO TID PRN (Reason: Muscle Spasm) albuterol sulfate [Ventolin HFA] 90 mcg/actuation Hfa Aerosol Inhaler 1 - 2 puff INHALATION QID PRN (Reason: Shortness Of Breath) pantoprazole 40 mg tablet,delayed release (DR/EC) 40 mg PO BID ketoconazole 2 % shampoo 1 applic topical Q7D Rx Instructions: Lather into scalp 1 time weekly. Allow to sit on scalp for 5 minutes before rinsing. ascorbic acid (vitamin C) [Vitamin C] 500 mg Tablet 500 mg PO QAM Skyrizi 150 mg/mL pen injector 150 mg SUBCUT .EVERY 12 WEEKS ondansetron 4 mg tablet,disintegrating 4 mg PO Q8H PRN (Reason: Nausea And Vomiting) 14 Days Qty: 25 0RF metoclopramide HCl [Reglan] 10 mg tablet 10 mg PO Q6H PRN (Reason: nausea and vomiting) Qty: 20 0RF amlodipine 10 mg tablet 10 mg PO BEDTIME pregabalin 100 mg capsule 100 mg PO BID aspirin 81 mg tablet,delayed release (DR/EC) 81 mg PO QAM thiamine mononitrate (vit B1) 100 mg tablet 100 mg PO DAILY Qty: 30 0RF folic acid 1 mg tablet 1 mg PO DAILY Qty: 30 0RF Discharge Orders: Discharge Order (Routine); Ordered 05/12/22 Ordered By: Adrian Agosto Referrals: Bucky Rogers MD [Primary Care Provider] - 2 weeks Discharge Diet: Advance as tolerated and Clear Liquid Discharge Activity: Resume usual activity and Increase activity as tolerated Patient Instructions: Opioid Safety Activity Restrictions/Additional Instructions: Continuing clear liquid diet for next 2 to 4 days and advance gradually to regular diet within next 2 weeks. Take multiple small meals. Please take Protonix twice daily. Take Carafate twice daily for next 4 weeks. Please try to avoid and maintain abstinence from marijuana Discharge Attestations Time Spent in Discharge Care*: greater than 30 min Specific Discharge Activities: educating patient, discussing with case management specialist/social workers/dc planners, documenting/other paperwork and evaluating patient/reviewing data Time Spent in Smoking Cessation: more than 10 minutes Status at Discharge: Cognitive status at discharge: cognitively intact , Behavioral status at discharge: cooperative , Functional status at discharge: independent ambulation , Overall status at discharge: patient is back to baseline Quality Metrics Clinical Quality Measures [ No reported AMI, CVA or VTE this stay] Coding Level of Care Code Acute Chg FW DC note Diagnoses Vomiting R11.10 Acute hyponatremia E87.1 Acute hypokalemia E87.6
[2022-05-12] MEDS: alum-mag-hydroxide-sime 30 mL UDC PO (12:27)
--- NOTE | 2022-05-12 13:29 | PC.NURSE ---
Patient educated on discharge instructions, verbalized understanding, son is to come pick her up.
== END 2022-05-12 14:00 | disposition home or self-care (01) ==
LOC: ER 03:01 → MEDSURG 03:32
PROVIDERS: Admitting Provider Internal Medicine; Emergency Provider Emergency Medicine; PCP Family Medicine; Visit Provider Student in an Organized Health Care Education/Training Program
DX: R11.10 Vomiting, unspecified (principal); E87.6 Hypokalemia; E87.1 Hypo-osmolality and hyponatremia; E86.0 Dehydration; I10 Essential (primary) hypertension; F17.210 Nicotine dependence, cigarettes, uncomplicated; Z79.82 Long term (current) use of aspirin; Z86.73 Personal history of transient ischemic attack (TIA), and cerebral infarction without residual deficits; Z88.5 Allergy status to narcotic agent; F12.10 Cannabis abuse, uncomplicated
CPT/HCPCS: 36415; 74018; 80048; 80053; 80306; 80307; 81001; 83690; 83735; 84100; 84145; 85025; 86140; 96365; 96366; 96367; 96372; 96375; 99285; G0378; J1200; J1650; J2550; J2765; J3475; J7030; J8597; Q0162

== ENCOUNTER 2022-05-15 08:40 | Outpatient (CLI) | payer MEDICARE, MEDICAID, SELFPAY ==
--- NOTE | 2022-05-15 08:44 | MM_ITS ---
WS: [id number] SCREENING DIGITAL BREAST TOMOSYNTHESIS MAMMOGRAM WITH CAD HISTORY: SCREENING COMPARISON: 07/15/2012 and 08/03/2011 Bilateral CC and MLO with tomosynthesis and synthetic mammography submitted. Computer aided detection analyzed. Breast composition: There are scattered areas of fibroglandular density. Inversion of the RIGHT nipple since 2011. There is some very mild soft tissue thickening posterior to the nipple which may all be related to the nipple inversion. No mass identified. LEFT breast is nega tive. MM/[place] [id number] IMPRESSION: BI-RADS: 0-Incomplete: Need additional imaging evaluation FOLLOW UP: Need Additional Imaging RIGHT breast: Spot compression views (CC and MLO). True ML. Ultrasound to follo w if abnormality persists. Recommend additional spot compression views of the RIGHT anterior breast and ul trasound to evaluate the nipple inversion which is new.
== END 2022-05-15 08:41 | disposition home or self-care (01) ==
LOC: RAD 08:40
PROVIDERS: PCP Family Medicine; Visit Provider Family Medicine
DX: Z12.31 Encounter for screening mammogram for malignant neoplasm of breast (principal)
CPT/HCPCS: 77063; 77067

== ENCOUNTER → 2022-05-17 13:18 | Outpatient (BNVA) | payer MEDICARE, MEDICAID, SELFPAY | PROVIDERS: PCP Family Medicine; Visit Provider Nurse Practitioner Family | DX: I96 Gangrene, not elsewhere classified (principal); L97.522 Non-pressure chronic ulcer of other part of left foot with fat layer exposed | CPT/HCPCS: 11042 ==

== ENCOUNTER → 2022-05-22 14:12 | Outpatient (BNVA) | payer MEDICARE, MEDICAID, SELFPAY | PROVIDERS: PCP Family Medicine; Visit Provider Nurse Practitioner Family | DX: I96 Gangrene, not elsewhere classified (principal); L89.892 Pressure ulcer of other site, stage 2 | CPT/HCPCS: 11042; 29445 ==

== ENCOUNTER → 2022-05-25 13:15 | Outpatient (BNVA) | payer MEDICARE, MEDICAID, SELFPAY | PROVIDERS: PCP Family Medicine; Visit Provider Surgery | DX: I96 Gangrene, not elsewhere classified (principal); L89.892 Pressure ulcer of other site, stage 2 | CPT/HCPCS: 11042; A6210 ==

== ENCOUNTER → 2022-05-29 13:49 | Outpatient (BNVA) | payer MEDICARE, MEDICAID, SELFPAY | PROVIDERS: PCP Family Medicine; Visit Provider Nurse Practitioner Family | DX: I96 Gangrene, not elsewhere classified (principal); L89.892 Pressure ulcer of other site, stage 2 | CPT/HCPCS: 11042; A6212 ==

== ENCOUNTER → 2022-06-05 09:15 | Outpatient (BNVA) | payer MEDICARE, MEDICAID, SELFPAY | PROVIDERS: PCP Family Medicine; Visit Provider Nurse Practitioner Family | DX: I96 Gangrene, not elsewhere classified (principal); L89.892 Pressure ulcer of other site, stage 2 | CPT/HCPCS: 11042 ==

== ENCOUNTER → 2022-06-12 08:52 | Outpatient (BNVA) | payer MEDICARE, MEDICAID, SELFPAY | PROVIDERS: PCP Family Medicine; Visit Provider Nurse Practitioner Family | DX: L89.892 Pressure ulcer of other site, stage 2 (principal) | CPT/HCPCS: 99212; A6219 ==

== ENCOUNTER 2022-07-09 12:27 | Outpatient (CLI) | payer MEDICARE, MEDICAID, SELFPAY ==
--- NOTE | 2022-07-09 12:35 | CT_ITS ---
WS: [id number] LDCT LUNG CANCER SCREENING TECHNIQUE: Noncontrast CT of the chest with coronal and sagittal reformatted images. CLINICAL INFORMATION: TOBACCO USE COMPARISON: None. DLP: 78.39 mGy.cm DIvol: Mean CTDIvol: 1.60 (mGy) All CT scans at [facility] use at least one of these dose optimization techniques: automat ed exposure control; mA and/or kV adjustment per patient size (includes targeted exams where dose is matched to clinical indication); or iterative reconstruction. FINDINGS:Moderate chronic emphysematous changes. No acute pulmonary infiltrates. No suspicious pulmon shakir parenchymal opacities. Normal caliber thoracic aorta. No mediastinal or hilar lymphadenopathy. No subcarinal lymphadenopathy . No axillary lymphadenopathy. Cholecystectomy clips. Adrenal glands are normal. LEFT renal cysts. Normal GE junction. CT/CT lung screening [id number] IMPRESSION: LUNG-RADS: 1-Negative FOLLOW UP: 12 Month: Continue annual screening with LDCT
== END 2022-07-09 12:28 | disposition home or self-care (01) ==
LOC: RAD 12:28
PROVIDERS: PCP Family Medicine; Visit Provider Family Medicine
DX: Z12.2 Encounter for screening for malignant neoplasm of respiratory organs (principal); Z87.891 Personal history of nicotine dependence
CPT/HCPCS: 71271

== ENCOUNTER 2022-07-09 12:27 | Outpatient (CLI) | payer MEDICARE, MEDICAID, SELFPAY ==
--- NOTE | 2022-07-09 12:45 | US_ITS ---
WS: [id number] ULTRASOUND BREAST RIGHT TECHNIQUE: Ultrasound right breast focused area of concern. CLINICAL INFORMATION: MAMMO ON 05-15 SHOWED THICKENING POSTERIOR TO R NIPPLE COMPARISON: May 15, 2022 FINDINGS: Ultrasound RIGHT breast at the [place]. RIGHT nipple inversion. No evidence of underlying cystic or so lid mass. Normal underlying parenchymal tissue. No suspicious lesions to target for biopsy. Recommend return to annual screening mammography. US/US breast RT limited* [id number] IMPRESSION: BI-RADS 2 benign FOLLOW UP: Return to annual screening mammography.
== END 2022-07-09 12:28 | disposition home or self-care (01) ==
LOC: RAD 12:28
PROVIDERS: PCP Family Medicine; Visit Provider Family Medicine
DX: R92.8 Other abnormal and inconclusive findings on diagnostic imaging of breast (principal)
CPT/HCPCS: 76642

== ENCOUNTER 2022-08-08 10:34 | Outpatient (CLI) | payer MEDICARE, MEDICAID, SELFPAY ==
--- NOTE | 2022-08-08 10:40 | MR_ITS ---
WS: [id number] MRI LEFT SHOULDER NONCONTRAST TECHNIQUE: Sagittal T2, coronal T1, T2 and proton density imaging. Axial gradient PDE imaging. CLINICAL INFORMATION: PAIN IN LEFT SHOULDER COMPARISON: None. FINDINGS: Some images degraded by motion. Moderate degenerative arthritis AC joint with mild edema. Subacromial fluid. Slight impingement on th e distal supraspinatus. Mild downsloping of the acromion. Small amount of subdeltoid fluid. Tendinopathy involving the intra-articular biceps tendon. Tendinopa thy in the distal supraspinatus. Small distal insertional tear. High-grade undersurface tear in the d istal supraspinatus deep to the acromion. No tendon retraction. Tendinopathy in the distal infraspinatus with small undersurface tear. Normal teres minor. Normal dis caroline subscapularis.Biceps tendon is intact within the bicipital groove. Glenoid labrum appears grossly intact. Moderate degenerative arthritis at the glenohumeral joint with hypertrophic spurring. MR/MR shoulder LT wo con* [id number] IMPRESSION: 1. Moderate degenerative arthritis of the AC joint with subacromial subdeltoid fluid. 2. Impingement distal supraspinatus with chronic thinning and high-grade under surface tear in the underlying supraspinatus with tendinopathy. Small insertion al tear distally. 3. Tendinopathy distal infraspinatus with tiny undersurface tear. 4. Increased signal and thickening intra-articular biceps tendon compatible wi th intra-articular biceps tendinopathy. 5. Biceps tendon intact within the bicipital groove. 6. Biceps labral anchor appears intact.
== END 2022-08-08 10:35 | disposition home or self-care (01) ==
LOC: RAD 10:34
PROVIDERS: PCP Family Medicine; Visit Provider Family Medicine
DX: M25.512 Pain in left shoulder (principal); M19.012 Primary osteoarthritis, left shoulder
CPT/HCPCS: 73221

== ENCOUNTER 2022-08-10 18:10 | Emergency (ER) | payer MEDICARE, MEDICAID, SELFPAY ==
--- NOTE | 2022-08-10 18:15 | XRR_ITS ---
PROCEDURE INFORMATION: Exam: XR Right Ankle Exam date and time: 08/10/2022 6:42 PM Age: 52 years old Clinical indication: Injury or trauma; Other: Ran into table; Fracture, pathological; Toes; Right; Closed fracture; Prior surgery; Surgery date: 6+ months; Surgery type: Ankle TECHNIQUE: Imaging protocol: Radiologic exam of the Right ankle. Views: 3 or more views. COMPARISON: CR XR knee RT 3V* [id number] 05/08/2016 3:36 PM FINDINGS: Bones/joints: Two surgical screws seen in the distal tibia without acute abnormality. Soft tissues: Normal. XR/XR ankle RT min 3V* [id number] IMPRESSION: Two surgical screws seen in the distal tibia without acute abnormality.
--- NOTE | 2022-08-10 18:15 | XRR_ITS ---
PROCEDURE INFORMATION: Exam: XR Right Foot Exam date and time: 08/10/2022 6:42 PM Age: 52 years old Clinical indication: Injury or trauma; Other: Ran into table; Fracture, pathological; Toes; Right; Closed fracture; Prior surgery; Surgery date: 6+ months; Surgery type: Ankle TECHNIQUE: Imaging protocol: Radiologic exam of the Right foot. Views: 3 or more views. COMPARISON: CR XR knee RT 3V* [id number] 05/08/2016 3:36 PM FINDINGS: Bones/joints: 5th proximal phalanx diaphyseal shaft comminuted minimally displaced fracture. Distal tibial surgical screws seen in place. Soft tissues: Normal. XR/XR foot RT min 3V* [id number] IMPRESSION: 1. 5th proximal phalanx diaphyseal shaft comminuted minimally displaced fracture. 2. Distal tibial surgical screws seen in place.
[2022-08-10 18:54] VITALS: BP 114/78; PULSE 81; RESP 14; TEMP 36.7; O2SAT 90; BMI 26.3
--- NOTE | 2022-08-10 19:29 | ED_ITS ---
HPI - Extremity Problem General: Chief complaint: Extremity Injury, Lower Stated complaint: Rt Foot Injury Time Seen by Provider: 08/10/22 19:28 History of Present Illness: 52-year-old female comes in today for injury to the right foot. Patient reports tripping at home and turning her right foot. Patient reports that her little toe seemed out of place and she adjusted to by straightening it at home. Patient makes that she might of fractured her foot. Patient does have a history of fracture to the ankle of the same lower extremity. Associated symptoms: Deny fever(s) Review of Systems Const: Denies: fever(s) Musc: Reports: extremity pain (Right foot) PFS ED PFSH: Medical History Abdominal pain Abdominal pain Acute kidney injury Alcohol withdrawal Anxiety Cannabinoid hyperemesis syndrome Cannabis dependence, uncomplicated CVA (cerebral vascular accident) Cyclical vomiting Dehydration Elevated troponin FH: cholecystectomy GI bleed High risk medication use Hyperemesis Hypertension Hypertensive urgency Intractable nausea and vomiting Leukocytosis Major depressive disorder, recurrent, in partial remission Memory loss Nausea & vomiting Nausea and vomiting Plaque psoriasis Post-traumatic stress disorder, chronic Psoriatic arthritis Surgical History History of ankle surgery History of eye surgery History of hysterectomy History of pelvic surgery History of shoulder surgery History of toe surgery Family History Other CAD (coronary artery disease) Cancer Diabetes Hypertension Lung disease Social History Smoking and tobacco status: current some day smoker cigarettes Alcohol intake: current Physical Exam Const: COMMON NORMALS: alert HENMT: COMMON NORMALS: normocephalic HEAD & SCALP: normocephalic Neck/C-Spine: COMMON NORMALS: full ROM Resp: COMMON NORMALS: normal respiratory effort Cardio: COMMON NORMALS: regular rate RATE: regular rate Extremity: RIGHT LOWER EXTREMITY: Yes foot & digits (Swelling and lateral tenderness to the right foot. Positive pulses.) Neuro: SENSORIUM/ORIENTATION: Yes alert Skin: COMMON NORMALS: turgor normal GENERAL SKIN EXAM: turgor normal Course Vital Signs: Vital signs: Vital Signs Temperature 98.1 F 08/10/22 18:54 Pulse Rate 81 08/10/22 18:54 Respiratory Rate 14 08/10/22 18:54 Blood Pressure 114/78 08/10/22 18:54 Pulse Oximetry 90 08/10/22 18:54 Oxygen Delivery Me thod 08/10/22 18:54 MDM - Extremity (Nontraumatic) Medical Decision Making 52-year-old female comes in today for injury to the right foot and lower extremity. On exam there is swelling and tenderness to the right lateral foot. Pulses are intact. No opening in skin is noted. Differential diagnosis includes contusion, sprain, fracture, dislocation. X-ray notes a comminuted fracture of the shaft of the fifth metatarsal. X-ray of the ankle is un remarkable. Reviewed exam with patient with recommendations for treatment and follow-up with podiatry. Patient reported understanding agreed to plan. Lab Data Radiology Impressions Ankle X-Ray 08/10/22 18:15 IMPRESSION: Two surgical screws seen in the distal tibia without acute abnormality. Foot X-Ray 08/10/22 18:15 IMPRESSION: 1. 5th proximal phalanx diaphyseal shaft comminuted minimally displaced fracture. 2. Distal tibial surgical screws seen in place. Discharge Plan Discharge Patient Disposition: Home Clinical Impression: Fracture of foot Qualifiers: Encounter type: initial encounter Fracture type: closed Laterality: right Qualified Code(s): S92.901A - Unspecified fracture of right foot, initial encounter for closed fracture Condition: Stable Prescriptions: New hydrocodone-acetaminophen 5-325 mg tablet 1 tab PO Q6H PRN (Reason: pain) Qty: 10 0RF No Action multivitamin [Daily Multi-Vitamin] Tablet 1 tab PO DAILY Cymbalta 60 mg capsule,delayed release(DR/EC) 60 mg PO BID Qty: 60 0RF metoprolol tartrate 25 mg tablet 25 mg PO BID Qty: 180 3RF baclofen 20 mg Tablet 20 mg PO TID PRN (Reason: Muscle Spasm) albuterol sulfate [Ventolin HFA] 90 mcg/actuation Hfa Aerosol Inhaler 1 - 2 puff INHALATION QID PRN (Reason: Shortness Of Breath) pantoprazole 40 mg tablet,delayed release (DR/EC) 40 mg PO BID ketoconazole 2 % shampoo 1 applic topical Q7D Rx Instructions: Lather into scalp 1 time weekly. Allow to sit on scalp for 5 minutes before rinsing. ascorbic acid (vitamin C) [Vitamin C] 500 mg Tablet 500 mg PO QAM Skyrizi 150 mg/mL pen injector 150 mg SUBCUT .EVERY 12 WEEKS ondansetron 4 mg tablet,disintegrating 4 mg PO Q8H PRN (Reason: Nausea And Vomiting) 14 Days Qty: 25 0RF Maalox Maximum Strength 400-400-40 mg/5 mL suspension 2.5 ml PO Q3H PRN (Reason: indigestion) Qty: 3000 0RF metoclopramide HCl [Reglan] 10 mg tablet 10 mg PO Q6H PRN (Reason: nausea and vomiting) Qty: 20 0RF amlodipine 10 mg tablet 10 mg PO BEDTIME pregabalin 100 mg capsule 100 mg PO BID aspirin 81 mg tablet,delayed release (DR/EC) 81 mg PO QAM thiamine mononitrate (vit B1) 100 mg tablet 100 mg PO DAILY Qty: 30 0RF folic acid 1 mg tablet 1 mg PO DAILY Qty: 30 0RF Discharge Orders: Discharge ED (Routine); Ordered 08/10/22 Ordered By: Ottoniel Patterson Referrals: Bucky Rogers MD [Primary Care Provider] - Discharge Diet: Usual diet Discharge Activity: Limit activity as instructed Patient Instructions: Opioid Safety, Pain Management Activity Restrictions/Additional Instructions: Home and rest. Elevate foot. Keep splint clean and dry. Use acetaminophen and ibuprofen to control pain. Use hydrocodone for severe pain. Follow-up with foot and ankle surgeon for further treatment. Return to ED for new concerns. Coding Level of Care Code ED [employer] Designer for 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
[2022-08-10] MEDS: HYDROcodone-acetaminophen 7.5-325 mg Tablet 1 TAB PO (20:06)
[2022-08-10 20:12] VITALS: BP 121/84; PULSE 84; RESP 18; O2SAT 91
--- NOTE | 2022-08-13 11:04 | DCPLANNER ---
Addendum entered by Alena Chakraborty 08/21/22 12:22: retail manager received the following message from the ortho clinic regarding follow up appointment: Declined apt due to not seeing a point in seeing another doctor for a broken toe Original Note: retail manager had message to schedule a follow up appointment for patient with podiatry. retail manager sent patients information to the front office staff at podiatry. Patients information will be printed and reviewed. Clinic will call patient with appointment information.
== END 2022-08-10 20:14 | disposition home or self-care (01) ==
PROVIDERS: Emergency Provider Nurse Practitioner Family; PCP Family Medicine
DX: S99.921A Unspecified injury of right foot, initial encounter (principal); S92.511A Displaced fracture of proximal phalanx of right lesser toe(s), initial encounter for closed fracture; Z79.82 Long term (current) use of aspirin; F17.210 Nicotine dependence, cigarettes, uncomplicated; Z86.73 Personal history of transient ischemic attack (TIA), and cerebral infarction without residual deficits; I10 Essential (primary) hypertension; W18.40XA Slipping, tripping and stumbling without falling, unspecified, initial encounter
CPT/HCPCS: 73610; 73630; 99283

== ENCOUNTER 2022-08-24 18:41 | Observation (INO) | payer MEDICARE, MEDICAID, SELFPAY ==
--- NOTE | 2022-08-24 18:45 | XRR_ITS ---
PROCEDURE INFORMATION: Exam: XR Abdomen Exam date and time: 08/24/2022 6:53 PM Age: 52 years old Clinical indication: Abdominal pain; Acute; Prior surgery; Surgery date: 6+ months; Additional info: Abd pain TECHNIQUE: Imaging protocol: Radiologic exam of the abdomen. Views: Frontal supine view of the abdomen. 1 View. COMPARISON: CR XR KUB portable [id number] 05/11/2022 6:37 AM FINDINGS: Gastrointestinal tract: Normal. No bowel dilation. Bones/joints: Intact pelvic fixation hardware noted. XR/XR KUB portable [id number] IMPRESSION: No acute findings.
[2022-08-24 18:47] VITALS: BP 146/98; PULSE 121; RESP 18; TEMP 37.6; O2SAT 97; BMI 25.8
[2022-08-24 19:05] LABS: Basophils % 0.1 %; Eosinophils % 0.2 %; Hematocrit 40.7 % (37.0-47.0); Hemoglobin 14.9 g/dL (11.5-15.3); Lymphocytes # 1.3 10^3/uL (0.8-4.8); Lymphocytes % 6.4 %; Mean Corpuscular HGB Conc 36.6 g/dL (30.0-36.0); Mean Corpuscular Volume 82.1 fl (81-99); Monocytes # 1.8 10^3/uL (0.2-0.9); Monocytes % 8.8 %; Neutrophils # 17.26 10^3/uL (1.8-7.7); Neutrophils % 83.9 %; Nucleated Red Blood Cells % 0 %; Platelet Count 417 10^3/cmm (130-400); Red Blood Count 4.96 10^6/uL (4.1-5.3); Red Cell Distribution Width 12.6 % (12.1-15.1); White Blood Count 20.6 10^3/uL (4.0-10.0)
[2022-08-24] MEDS: sodium chloride 0.9% 1,000 ML 999 ML IV ×2 (19:09→21:04)
[2022-08-24] MEDS: haloperidol inj 5 mg/mL INJ 1 mL IVP (19:20)
[2022-08-24 19:30] VITALS: PULSE 131; O2SAT 96
[2022-08-24 19:31] LABS: Lactate (Lactic Acid level) 1.7 mmol/L (0.5-2.2)
[2022-08-24 19:32] LABS: Alanine Aminotransferase 20 U/L (0-33); Albumin Level 4.9 g/dL (3.5-5.2); Alkaline Phosphatase 139 U/L (35-105); Anion Gap 26.1 (5-19); Aspartate Amino Transferase 46 U/L (0-32); Blood Urea Nitrogen 44 mg/dL (6-20); C Reactive Protein 14.9 mg/L (0.0-4.9); Calcium 10.2 mg/dL (8.5-10.5); Carbon Dioxide 33 mmol/L (22-29); Chloride 69 mmol/L (98-107); Globulin 4.3 g/dL (1.3-4.6); Glomerular Filtration Rate 11.3 mL/min (90-130); Glucose 129 mg/dL (65-115); Lipase 21 U/L (13-60); Osmolality Calculated 273 mOsm/kg (285-295); Potassium 3.1 mmol/L (3.5-5.1); Sodium 125 mmol/L (136-145); Total Bilirubin 0.7 mg/dL (0.15-1.2); Total Protein 9.2 g/dL (6.6-8.7)
--- NOTE | 2022-08-24 19:49 | CTR_ITS ---
PROCEDURE INFORMATION: Exam: CT Abdomen And Pelvis Without Contrast Exam date and time: 08/24/2022 7:59 PM Age: 52 years old Clinical indication: Vomiting; Abdominal pain; Epigastric; Prior surgery; Surgery date: 6+ months; Surgery type: Ortho pelvis, cholecystectomy; Additional info: Epigastric pain, vomiting TECHNIQUE: Imaging protocol: Computed tomography of the abdomen and pelvis without contrast. Radiation optimization: All CT scans at this facility use at least one of these dose optimization techniques: automated exposure control; mA and/or kV adjustment per patient size (includes targeted exams where dose is matched to clinical indication); or iterative reconstruction. COMPARISON: CT abdomen pelvis wo con [id number] 04/09/2022 5:43 PM RADIATION DOSE METRICS: Total DLP (mGy-cm): 695.08 FINDINGS: Liver: Normal. No mass. Gallbladder and bile ducts: Cholecystectomy. No ductal dilation. Pancreas: Normal. No ductal dilation. Spleen: Normal. No splenomegaly. Adrenal glands: Normal. No mass. Kidneys and ureters: A couple cysts noted in the left kidney measuring up to 2 cm in size. No hydronephrosis. Stomach and bowel: Circumferential wall thickening of the distal esophagus. Fluid-filled stomach and proximal bowel loops. No obstruction. No mucosal thickening. Appendix: No evidence of appendicitis. Intraperitoneal space: Unremarkable. No free air. No significant fluid collection. Vasculature: Unremarkable. No abdominal aortic aneurysm. Lymph nodes: Unremarkable. No enlarged lymph nodes. Urinary bladder: Under distended bladder. Reproductive: Hysterectomy. Bones/joints: No acute fracture. Intact pelvic fixation hardware noted. Soft tissues: Unremarkable. CT/CT abdomen pelvis con [id number] IMPRESSION: 1. Circumferential wall thickening of the distal esophagus likely reflecting reflux esophagitis. 2. Fluid-filled stomach and proximal bowel loops which may reflect a gastroenteritis. COMMENTS: Consistent with the [employer]'s Incidental Findings Committee white paper (J Am Marga Radiol 2018): Any incidental renal lesion less than 1 cm or classified as too small to characterize, or any incidental cystic renal lesion characterized as simple-appearing, is likely benign. No follow-up imaging is recommended for these lesions per consensus recommendations based on imaging criteria.
--- NOTE | 2022-08-24 20:06 | W.ED.ABDPA2 ---
HPI - Abdominal Pain General: Chief Complaint: Abdominal Pain Stated Complaint: abd pain, nausea Time Seen by Provider: 08/24/22 18:44 Source: patient History of Present Illness: 52-year-old female with a history of stroke, psoriatic arthritis, cyclic vomiting presents with epigastric pain vomiting and diarrhea for the last 3 days. She says that she has vomited multiple times, and has foamy diarrhea. She says she has had a fever although she cannot say how high pain is located in her epigastrium mainly MD elicited complaint: abdominal pain Pertinent past history: other Onset (ago): day(s) Location: Epigastric Severity: moderate Radiation: none Migration to: no migration Exacerbating factors: vomiting Relieving factors: nothing Associated Symptoms: Reports anorexia, coffee ground emesis, diarrhea and fever(s) Review of Systems Const: Reports: fever(s) Eyes: Denies: change in vision ENMT: Reports: throat pain Card: Denies: chest pain or palpitations Resp: Denies: dyspnea GI: Reports: coffee ground emesis and diarrhea Musc: Reports: back pain Skin/Breast: Reports: rash Psych: Reports: anxiety PFSH ED PFSH: Medical History Abdominal pain Abdominal pain Acute kidney injury Alcohol withdrawal Anxiety Cannabinoid hyperemesis syndrome Cannabis dependence, uncomplicated CVA (cerebral vascular accident) Cyclical vomiting Dehydration Elevated troponin FH: cholecystectomy GI bleed High risk medication use Hyperemesis Hypertension Hypertensive urgency Intractable nausea and vomiting Leukocytosis Major depressive disorder, recurrent, in partial remission Memory loss Nausea & vomiting Nausea and vomiting Plaque psoriasis Post-traumatic stress disorder, chronic Psoriatic arthritis Surgical History History of ankle surgery History of eye surgery History of hysterectomy History of pelvic surgery History of shoulder surgery History of toe surgery Family History Other CAD (coronary artery disease) Cancer Diabetes Hypertension Lung disease Social History Smoking and tobacco status: current some day smoker cigarettes Alcohol intake: current Physical Exam Const: COMMON NORMALS: alert GENERAL APPEARANCE: cooperative and ill appearing HENMT: COMMON NORMALS: normocephalic, atraumatic and Normal external nose present HEAD & SCALP: normocephalic and atraumatic NOSE: Normal external nose present THROAT: posterior oropharynx normal Eye: COMMON NORMALS: Equal, round and reactive pupils present and EOMs intact bilaterally PUPIL: Yes Equal, round and reactive pupils present Chest: CHEST: Yes Symmetrical chest wall rise Resp: COMMON NORMALS: normal respiratory effort, No use of accessory muscles and clear to auscultation bilaterally AUSCULTATION: clear to auscultation bilaterally Cardio: COMMON NORMALS: regular rate and regular rhythm RATE: regular rate RHYTHM: regular rhythm GI: COMMON NORMALS: Normal to inspection, nondistended, normoactive bowel sounds present PALPATION: Yes Tenderness to palpation present (GI) (epigastric) Extremity: COMMON NORMALS: no pedal edema Neuro: JUANY COMA SCALE: document [facility] findings [place] coma scale eye opening: Spontaneous Juany coma scale verbal response: Orientated Juany coma scale motor response: Obey commands [place] coma scale total score: 15 SENSORIUM/ORIENTATION: Yes alert Psych: COMMON NORMALS: cooperative Course Consultations: Consultation #1: [employer] Vital Signs: Vital signs: Vital Signs Temperature 99.7 F H 08/24/22 18:47 Pulse Rate 106 H 08/24/22 22:36 Respiratory Rate 18 08/24/22 22:36 Blood Pressure 173/123 08/24/22 22:36 Pulse Oximetry 96 08/24/22 22:36 Oxygen Delivery Me thod 08/24/22 18:47 MDM - Abdominal Pain Medical Decision Making 52-year-old female presenting with significant vomiting, some of which is coffee-ground in nature, diarrhea, and epigastric pain. CBC shows a leukocytosis of 21. Baseline creatinine is around 1, her creatinine tonight is 4. Her sodium is 125. She is receiving a 2 L bolus in the ER. She has had Haldol for nausea with significant improvement, although she has vomited a couple of times since the Haldol. Her potassium is 3.1, and likely will need repletion after fluid bolus. She will be admitted for acute kidney injury due to dehydration, intractable vomiting, etc. hospitalist is aware. Lab Data 08/24/22 18:55 08/24/22 18:55 Labs/Radiology: Radiology Impressions KUB X-Ray 08/24/22 18:45 IMPRESSION: No acute findings. Abdomen/Pelvis CT 08/24/22 19:49 IMPRESSION: 1. Circumferential wall thickening of the distal esophagus likely reflecting reflux esophagitis. 2. Fluid-filled stomach and proximal bowel loops which may reflect a gastroenteritis. COMMENTS: Consistent with the [employer]'s Incidental Findings Committee white paper (J Am Marga Radiol 2018): Any incidental renal lesion less than 1 cm or classified as too small to characterize, or any incidental cystic renal lesion characterized as simple-appearing, is likely benign. No follow-up imaging is recommended for these lesions per consensus recommendations based on imaging criteria. Laboratory Results WBC 20.6 10^3/uL (4.0-10.0) H 08/24/22 18:55 RBC 4.96 10^6/uL (4.1-5.3) 08/24/22 18:55 Hgb 14.9 g/dL (11.5-15.3) 08/24/22 18:55 Hct 40.7 % (37.0-47.0) 08/24/22 18:55 MCV 82.1 fl (81-99) 08/24/22 18:55 MCH 30.0 pg (28.0-34.0) 08/24/22 18:55 MCHC 36.6 g/dL (30.0-36.0) H 08/24/22 18:55 RDW 12.6 % (12.1-15.1) 08/24/22 18:55 Plt Count 417 10^3/cmm (130-400) H 08/24/22 18:55 MPV 10.0 fL (7.4-10.4) 08/24/22 18:55 Neut % (Auto) 83.9 % 08/24/22 18:55 Lymph % (Auto) 6.4 % 08/24/22 18:55 Sargent % (Auto) 8.8 % 08/24/22 18:55 Eos % (Auto) 0.2 % 08/24/22 18:55 Baso % (Auto) 0.1 % 08/24/22 18:55 Neut # (Auto) 17.26 10^3/uL (1.8-7.7) H 08/24/22 18:55 Lymph # (Auto) 1.3 10^3/uL (0.8-4.8) 08/24/22 18:55 Sargent # (Auto) 1.8 10^3/uL (0.2-0.9) H 08/24/22 18:55 Eos # (Auto) 0.0 10^3/uL (0.0-0.8) 08/24/22 18:55 Baso # (Auto) 0.0 10^3/uL (0.0-0.1) 08/24/22 18:55 Nucleated RBC % (auto) 0 % 08/24/22 18:55 Nucleated RBCs # 0.0 /100WBC 08/24/22 18:55 Sodium 125 mmol/L (136-145) L 08/24/22 18:55 Potassium 3.1 mmol/L (3.5-5.1) L 08/24/22 18:55 Chloride 69 mmol/L (98-107) L 08/24/22 18:55 Carbon Dioxide 33 mmol/L (22-29) H 08/24/22 18:55 Anion Gap 26.1 (5-19) H 08/24/22 18:55 BUN 44 mg/dL (6-20) H 08/24/22 18:55 Creatinine 4.1 mg/dL (0.5-0.9) H 08/24/22 18:55 GFR Calculation 11.3 mL/min (90-130) L 08/24/22 18:55 Glucose 129 mg/dL (65-115) H 08/24/22 18:55 Calculated Osmolality 273 mOsm/kg (285-295) L 08/24/22 18:55 Lactate 1.7 mmol/L (0.5-2.2) 08/24/22 18:55 Calcium 10.2 mg/dL (8.5-10.5) 08/24/22 18:55 Total Bilirubin 0.7 mg/dL (0.15-1.2) 08/24/22 18:55 AST 46 U/L (0-32) H 08/24/22 18:55 ALT 20 U/L (0-33) 08/24/22 18:55 Alkaline Phosphatase 139 U/L (35-105) H 08/24/22 18:55 C-Reactive Protein 14.9 mg/L (0.0-4.9) H 08/24/22 18:55 Total Protein 9.2 g/dL (6.6-8.7) H 08/24/22 18:55 Albumin 4.9 g/dL (3.5-5.2) 08/24/22 18:55 Globulin 4.3 g/dL (1.3-4.6) 08/24/22 18:55 Lipase 21 U/L (13-60) 08/24/22 18:55 Discharge Plan Discharge Condition: Stable Prescriptions: No Action multivitamin [Daily Multi-Vitamin] Tablet 1 tab PO DAILY Cymbalta 60 mg capsule,delayed release(DR/EC) 60 mg PO BID Qty: 60 0RF metoprolol tartrate 25 mg tablet 25 mg PO BID Qty: 180 3RF baclofen 20 mg Tablet 20 mg PO TID PRN (Reason: Muscle Spasm) albuterol sulfate [Ventolin HFA] 90 mcg/actuation Hfa Aerosol Inhaler 1 - 2 puff INHALATION QID PRN (Reason: Shortness Of Breath) pantoprazole 40 mg tablet,delayed release (DR/EC) 40 mg PO BID ketoconazole 2 % shampoo 1 applic topical Q7D Rx Instructions: Lather into scalp 1 time weekly. Allow to sit on scalp for 5 minutes before rinsing. ascorbic acid (vitamin C) [Vitamin C] 500 mg Tablet 500 mg PO QAM Skyrizi 150 mg/mL pen injector 150 mg SUBCUT .EVERY 12 WEEKS ondansetron 4 mg tablet,disintegrating 4 mg PO Q8H PRN (Reason: Nausea And Vomiting) 14 Days Qty: 25 0RF Maalox Maximum Strength 400-400-40 mg/5 mL suspension 2.5 ml PO Q3H PRN (Reason: indigestion) Qty: 3000 0RF metoclopramide HCl [Reglan] 10 mg tablet 10 mg PO Q6H PRN (Reason: nausea and vomiting) Qty: 20 0RF amlodipine 10 mg tablet 10 mg PO BEDTIME pregabalin 100 mg capsule 100 mg PO BID aspirin 81 mg tablet,delayed release (DR/EC) 81 mg PO QAM thiamine mononitrate (vit B1) 100 mg tablet 100 mg PO DAILY Qty: 30 0RF folic acid 1 mg tablet 1 mg PO DAILY Qty: 30 0RF hydrocodone-acetaminophen 5-325 mg tablet 1 tab PO Q6H PRN (Reason: pain) Qty: 10 0RF Coding Level of Care Code ED Medical Office Rep for [facility] Fwd Exam Comprehensive
[2022-08-24 21:00] VITALS: BP 148/74; PULSE 115; RESP 16; O2SAT 90
[2022-08-24] MEDS: pantoprazole 40 mg SDV IVP (21:04)
[2022-08-24 22:36] VITALS: BP 173/123; PULSE 106; RESP 18; O2SAT 96
--- NOTE | 2022-08-24 22:48 | PM.HP ---
Providers/Chief Complaint Primary Care Provider: Bucky Rogers MD Chief Complaint: abd pain, nausea History of Present Illness Rachelle Mireles is a 52 year old female with history of cyclical vomiting, active smoker, presented with chief complaint of nausea and vomiting. Patient is stating that she ate beans 48 hours ago, her symptoms started within 1 hour of consumption of beans. She consumed canned preserved beans. She has noticed fever 100.0, she is endorsing 20 episodes of emesis with 2 episodes of diarrhea. Because of excessive dehydration she decided to come to the hospital for further evaluation The ER she has been diagnosed with LEVY, hyponatremia, hypokalemia and dehydration. CT abdomen pelvis showing gastroenteritis. She received 2 L of IV fluid in the ER along Protonix and Haldol Review of Systems Const: Reports: fever(s), chills, body aches and fatigue Eyes: Denies: eye discomfort ENMT: Denies: throat pain Card: Denies: chest pain Resp: Denies: dyspnea or wheezing GI: Reports: abdominal pain and nausea : Denies: flank pain Musc: Denies: neck pain Skin/Breast: Denies: changing lesions Neuro: Denies: headache(s) Psych: Reports: anxiety Endo: Denies: polyuria Ba/Lymph: Denies: easy bruising All/Imm: Denies: urticaria Medications/Allergies Home Medications Medication Instructions Recorded Confirmed Last Taken Type duloxetine 60 mg capsule,delayed 60 mg PO BID #60 caps 02/15/20 05/11/22 05/06/22 08:00 Rx release (Cymbalta) multivitamin (Daily Multi-Vitamin 1 tab PO DAILY 04/20/20 05/11/22 05/06/22 08:00 History tablet) albuterol sulfate 90 mcg/actuation 1 - 2 puff inhalation QID PRN 07/13/21 05/11/22 05/06/22 08:00 History aerosol inhaler (Ventolin HFA) Shortness Of Breath baclofen 20 mg tablet 20 mg PO TID PRN Muscle Spasm 07/13/21 05/11/22 05/06/22 08:00 History ascorbic acid (vitamin C) 500 mg 500 mg PO QAM 09/04/21 05/11/22 05/06/22 08:00 History tablet (Vitamin C) ketoconazole 2 % shampoo 1 applic topical Q7D 09/04/21 05/11/22 05/06/22 08:00 History pantoprazole 40 mg tablet,delayed 40 mg PO BID 09/04/21 05/11/22 05/06/22 08:00 History release metoprolol tartrate 25 mg tablet 25 mg PO BID #180 tabs 10/24/21 05/11/22 05/06/22 08:00 Rx risankizumab-rzaa 150 mg/mL 150 mg SUBCUT .EVERY 12 WEEKS 01/21/22 05/11/22 05/06/22 08:00 History subcutaneous pen injector (Sarah) ondansetron 4 mg disintegrating 4 mg PO Q8H PRN Nausea And 01/22/22 05/11/22 05/06/22 08:00 Rx tablet Vomiting 14 days #25 tabs metoclopramide HCl 10 mg tablet 10 mg PO Q6H PRN nausea and 02/13/22 05/11/22 05/06/22 08:00 Rx (Reglan) vomiting #20 tabs amlodipine 10 mg tablet 10 mg PO BEDTIME 04/09/22 05/11/22 05/06/22 08:00 History aspirin 81 mg tablet,delayed 81 mg PO QAM 04/09/22 05/11/22 05/06/22 08:00 History release pregabalin 100 mg capsule 100 mg PO BID 04/09/22 05/11/22 05/06/22 08:00 History folic acid 1 mg tablet 1 mg PO DAILY #30 tabs 04/11/22 05/11/22 05/06/22 08:00 Rx thiamine mononitrate (vit B1) 100 100 mg PO DAILY #30 tabs 04/11/22 05/11/22 05/06/22 08:00 Rx mg tablet aluminum-mag hydroxide-simethicone 2.5 ml PO Q3H PRN indigestion 05/12/22 Unknown Rx 400 mg-400 mg-40 mg/5 mL oral susp #3,000 mL (Maalox Maximum Strength) hydrocodone 5 mg-acetaminophen 325 1 tab PO Q6H PRN pain #10 tabs 08/10/22 Unknown Rx mg tablet Allergies Allergy/AdvReac Type Severity Reaction Status Date / Time adhesive tape Allergy Intermediate rash, red Verified 04/09/22 16:50 codeine Allergy ALGY-Anaphy Verified 04/09/22 16:50 laxis paroxetine [From Paxil] Allergy Unconscious Verified 04/09/22 16:50 PFSH Acute PFSH: Medical History Abdominal pain Abdominal pain Acute kidney injury Alcohol withdrawal Anxiety Cannabinoid hyperemesis syndrome Cannabis dependence, uncomplicated CVA (cerebral vascular accident) Cyclical vomiting Dehydration Elevated troponin FH: cholecystectomy GI bleed High risk medication use Hyperemesis Hypertension Hypertensive urgency Intractable nausea and vomiting Leukocytosis Major depressive disorder, recurrent, in partial remission Memory loss Nausea & vomiting Nausea and vomiting Plaque psoriasis Post-traumatic stress disorder, chronic Psoriatic arthritis Surgical History History of ankle surgery History of eye surgery History of hysterectomy History of pelvic surgery History of shoulder surgery History of toe surgery Family History Other CAD (coronary artery disease) Cancer Diabetes Hypertension Lung disease Social History Smoking and tobacco status: current some day smoker cigarettes Alcohol intake: current Vitals/I&O/Wt Last Vital Signs Temp 99.7 F H 08/24/22 18:47 Pulse 106 H 08/24/22 22:36 Resp 18 08/24/22 22:36 BP 173/123 08/24/22 22:36 Pulse Ox 96 08/24/22 22:36 O2 Del Method 08/24/22 18:47 Weight last 48 hrs Weight 72.575 kg Physical Exam Narrative: Clinically dehydrated Awake and alert In distress because abdominal pain Actively experiencing nausea S1, S2 sinus tachycardia Currently on room air Hemodynamically stable Awake and alert Nonfocal neuro exam Clinically looks dehydrated Appropriate mood and affect Data 08/24/22 18:55 08/24/22 18:55 A&P Assessment and plan (1) LEVY (acute kidney injury): (2) Vomiting: (3) Gastroenteritis: (4) Acute hyponatremia: (5) Vomiting: (6) Memory loss: (7) Plaque psoriasis: Plan Gastroenteritis Severe dehydration LEVY Hypokalemia Hyponatremia Hypovolemic hyponatremia Start IV fluids with potassium supplementation LEVY: Anticipating following IV fluid hydration Gastroenteritis: Cyclical vomiting: Significant leukocytosis noted I will start her on Zosyn, Zofran, IV fluid Contraction alkalosis due to severe dehydration Gastroenteritis related to food poisoning, decided to add antibiotics below significant leukocytosis DVT prophylaxis Heparin [place] diet Full code Check COVID PCR, drug screen Attestations Medical Necessity Statement*: Anticipating discharge within 48 hours Time Spent in Patient Care: 40 Coding Level of Care Code Acute 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
[2022-08-24 23:09] VITALS: BP 116/86; PULSE 106; RESP 16; O2SAT 96
[2022-08-24 23:28] LABS: Procalcitonin 0.44 ng/mL (0-0.5)
[2022-08-24 23:30] VITALS: BP 149/92; PULSE 102; RESP 17; TEMP 37.1; O2SAT 90
[2022-08-25] MEDS: sodium chlor 0.9% + KCl 20 mEq 20 MEQ/1,000 ML BAG 75 MEQ IV ×2 (00:07→14:14)
[2022-08-25] MEDS: piperacillin-tazobactam 3.375 GM in sodium chloride 0.9% (plus) 50 ML IV ×2 (00:07→12:00)
[2022-08-25] MEDS: heparin 5,000 unit/mL INJ 1 mL 5000 UNIT SUBCUT ×2 (00:07→12:01)
[2022-08-25 00:10] LABS: Adenovirus Not Detected (NOT DETECT); Chlamydia Pneumoniae Not Detected (NOT DETECT); Coronavirus 229E,HKU1,NL63,OC4 Not Detected (NOT DETECT); Human Metapneumovirus Not Detected (NOT DETECT); Human Rhinovirus/Enterovirus Not Detected (NOT DETECT); Influenza A Not Detected (NOT DETECT); Influenza A H1 Not Detected (NOT DETECT); Influenza A H1-2009 Not Detected (NOT DETECT); Influenza A H3 Not Detected (NOT DETECT); Influenza B Not Detected (NOT DETECT); Mycoplasma Pneumoniae Not Detected (NOT DETECT); Parainfluenza Virus Type 1 Not Detected (NOT DETECT); Parainfluenza Virus Type 2 Not Detected (NOT DETECT); Parainfluenza Virus Type 3 Not Detected (NOT DETECT); Parainfluenza Virus Type 4 Not Detected (NOT DETECT); Respiratory Syncytial Virus A Not Detected (NOT DETECT); Respiratory Syncytial Virus B Not Detected (NOT DETECT); SARS-COV-2 Not Detected (NOT DETECT)
[2022-08-25] MEDS: ondansetron 2 mg/ML SDV 2 mL 4 MG IVP (02:16)
[2022-08-25 04:00] VITALS: BP 145/86; PULSE 91; RESP 17; TEMP 37.2; O2SAT 94
[2022-08-25 05:10] LABS: Basophils % 0.1 %; Eosinophils % 0.1 %; Hematocrit 38.4 % (37.0-47.0); Hemoglobin 13.4 g/dL (11.5-15.3); Lymphocytes # 1.2 10^3/uL (0.8-4.8); Lymphocytes % 6.5 %; Mean Corpuscular HGB Conc 34.9 g/dL (30.0-36.0); Mean Corpuscular Hemoglobin 29.8 pg (28.0-34.0); Mean Corpuscular Volume 85.5 fl (81-99); Mean Platelet Volume 10.6 fL (7.4-10.4); Monocytes % 10.8 %; Neutrophils % 81.8 %; Nucleated Red Blood Cells % 0 %; Platelet Count 327 10^3/cmm (130-400); Red Blood Count 4.49 10^6/uL (4.1-5.3); Red Cell Distribution Width 13.2 % (12.1-15.1); White Blood Count 18.4 10^3/uL (4.0-10.0)
[2022-08-25 05:29] LABS: Blood Urea Nitrogen 44 mg/dL (6-20); Carbon Dioxide 29 mmol/L (22-29); Chloride 76 mmol/L (98-107); Glomerular Filtration Rate 13.6 mL/min (90-130); Glucose 111 mg/dL (65-115); Osmolality Calculated 272 mOsm/kg (285-295); Phosphorus 4.6 mg/dL (2.5-4.5); Sodium 125 mmol/L (136-145)
[2022-08-25 07:37] VITALS: BP 159/107; PULSE 97; RESP 15; TEMP 36.7; O2SAT 98
[2022-08-25] MEDS: baclofen 10 mg Tablet 20 MG PO (07:55)
[2022-08-25] MEDS: metoprolol tartrate 25 mg Tablet PO ×2 (07:55→18:21)
[2022-08-25] MEDS: pantoprazole 40 mg SDV IVP ×2 (08:22→18:19)
[2022-08-25 08:51] VITALS: PULSE 97; RESP 16; O2SAT 97
[2022-08-25 09:45] LABS: Blood Urine 3+ (Negative); Glucose Urine UA Norm (Normal); Ketones Urine 1+ (Negative); Protein Urine 1+ (Negative); Urine Appearance Clear (CLEAR); Urine Color Straw (Yellow); pH Urine 5 (5-7)
[2022-08-25 09:46] LABS: Add Urine Culture? No; Add Urine Microscopic? YES; Amorphous Sediment Urine 1+ /hpf; Bacteria Urine 1+ /hpf; Bilirubin Urine Neg (Negative); Leukocyte Esterase Urine Negative (Negative); Mucus Urine TRACE /hpf; Nitrate Urine Negative (Negative); Urobilinogen Urine Norm (Negative)
[2022-08-25 09:48] LABS: Amphetamines Screen Urine Negative (Negative); Barbiturates Screen Urine Negative (Negative); Benzodiazepines Screen Urine Negative (Negative); Cocaine Screen Urine Negative (Negative); Opiate Screen Urine Negative (Negative); PCP Screen Urine Negative (Negative); THC Screen Urine Positive (Negative)
[2022-08-25 11:03] VITALS: BP 100/65; PULSE 71; RESP 16; TEMP 36.8; O2SAT 94
--- NOTE | 2022-08-25 13:11 | P.PN_ITS ---
Subjective Subjective: Seen this morning. No longer having vomiting or nausea. Patient is starting to feel better. She says she tolerated look okay this morning and kept it down. She would like to advance her diet and try. Denies abdominal pain at this time. Feels better. Does use marijuana and last use was 3 days ago. Does not use alcohol. Vitals/I&O/Wt Last Vital Signs Temp 98.3 F 08/25/22 11:03 Pulse 71 08/25/22 11:03 Resp 16 08/25/22 11:03 BP 100/65 08/25/22 11:03 Pulse Ox 94 08/25/22 11:03 O2 Del Method 08/25/22 11:03 08/24/22 08/25/22 08/25/22 22:59 06:59 14:59 Intake Total 50 / 50 1999 Balance 50 / 50 1999 Weight last 48 hrs Weight 70.579 kg Weight 72.575 kg Physical Exam Narrative: Clinically dehydrated Awake and alert Denies abdominal pain at this time. Denies nausea. Appears comfortable sitting up in bed. S1, S2 no longer tachycardic. Currently on room air Hemodynamically stable Awake and alert Nonfocal neuro exam Clinically looks dehydrated Appropriate mood and affect Data 08/25/22 04:12 08/25/22 04:12 A&P Assessment and plan (1) LEVY (acute kidney injury): (2) Vomiting: (3) Gastroenteritis: (4) Acute hyponatremia: (5) Vomiting: (6) Memory loss: (7) Plaque psoriasis: Plan Gastroenteritis Severe dehydration LEVY Hypokalemia Hyponatremia Hypovolemic hyponatremia Continue IV fluids at this time Recheck labs in the evening. LEVY: Anticipating following IV fluid hydration Gastroenteritis: Cyclical vomiting: Significant leukocytosis noted I will start her on Zosyn, Zofran, IV fluid Contraction alkalosis due to severe dehydration Gastroenteritis related to food poisoning, decided to add antibiotics below significant leukocytosis DVT prophylaxis Heparin Continue brat diet. 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
[2022-08-25 15:51] VITALS: BP 110/75; PULSE 84; RESP 16; TEMP 36.8; O2SAT 93
[2022-08-25 18:22] LABS: Basophils % 0.1 %; Eosinophils % 0.1 %; Hematocrit 36.5 % (37.0-47.0); Hemoglobin 12.9 g/dL (11.5-15.3); Lymphocytes # 1.3 10^3/uL (0.8-4.8); Mean Corpuscular HGB Conc 35.3 g/dL (30.0-36.0); Mean Corpuscular Hemoglobin 30.7 pg (28.0-34.0); Mean Corpuscular Volume 86.9 fl (81-99); Monocytes # 1.5 10^3/uL (0.2-0.9); Monocytes % 11.4 %; Neutrophils # 10.33 10^3/uL (1.8-7.7); Nucleated Red Blood Cells % 0 %; Platelet Count 345 10^3/cmm (130-400); Red Cell Distribution Width 13.2 % (12.1-15.1); White Blood Count 13.2 10^3/uL (4.0-10.0)
[2022-08-25 18:39] LABS: Anion Gap 12.6 (5-19); Blood Urea Nitrogen 42 mg/dL (6-20); Carbon Dioxide 34 mmol/L (22-29); Chloride 82 mmol/L (98-107); Glomerular Filtration Rate 19.2 mL/min (90-130); Glucose 124 mg/dL (65-115); Osmolality Calculated 274 mOsm/kg (285-295); Sodium 126 mmol/L (136-145)
[2022-08-25 18:43] LABS: Potassium 2.6 mmol/L (3.5-5.1)
[2022-08-25 20:00] VITALS: BP 111/74; PULSE 75; RESP 15; TEMP 38; O2SAT 93
[2022-08-25] MEDS: lidocaine 1% 5 ML in potassium chloride premix 100 ML 25 ML IV (20:24)
[2022-08-25] MEDS: amlodipine 10 mg Tablet PO (20:24)
[2022-08-25] MEDS: acetaminophen 500 mg Tablet PO (20:35)
[2022-08-26] VITALS (7 sets, daily range): BP systolic 118–159; BP diastolic 74–93; PULSE 77–90; RESP 17–18; TEMP 36.3–37.1; O2SAT 92–99
[2022-08-26] MEDS: piperacillin-tazobactam 3.375 GM in sodium chloride 0.9% (plus) 50 ML IV (00:30)
[2022-08-26] MEDS: heparin 5,000 unit/mL INJ 1 mL 5000 UNIT SUBCUT (00:32)
[2022-08-26] MEDS: sodium chlor 0.9% + KCl 20 mEq 20 MEQ/1,000 ML BAG 75 MEQ IV (03:12)
[2022-08-26 06:27] LABS: Basophils % 0.1 %; Eosinophils # 0.1 10^3/uL (0.0-0.8); Eosinophils % 0.9 %; Hematocrit 42.1 % (37.0-47.0); Lymphocytes # 1.5 10^3/uL (0.8-4.8); Lymphocytes % 13.1 %; Mean Corpuscular HGB Conc 33.3 g/dL (30.0-36.0); Mean Corpuscular Volume 90.3 fl (81-99); Mean Platelet Volume 10.5 fL (7.4-10.4); Monocytes # 1.6 10^3/uL (0.2-0.9); Monocytes % 13.5 %; Neutrophils # 8.38 10^3/uL (1.8-7.7); Neutrophils % 72.1 %; Nucleated Red Blood Cells % 0 %; Platelet Count 318 10^3/cmm (130-400); Red Blood Count 4.66 10^6/uL (4.1-5.3); Red Cell Distribution Width 13.3 % (12.1-15.1); White Blood Count 11.6 10^3/uL (4.0-10.0)
--- NOTE | 2022-08-26 06:42 | PC.NURSE ---
HEEL SHAPER gave patient apple juice and water 0540.
[2022-08-26 07:02] LABS: Blood Urea Nitrogen 30 mg/dL (6-20); Calcium 9.5 mg/dL (8.5-10.5); Carbon Dioxide 27 mmol/L (22-29); Chloride 85 mmol/L (98-107); Glomerular Filtration Rate 33.6 mL/min (90-130); Glucose 129 mg/dL (65-115); Magnesium 2.1 mg/dL (1.7-2.3); Osmolality Calculated 270 mOsm/kg (285-295); Sodium 126 mmol/L (136-145)
[2022-08-26 07:06] LABS: Anion Gap 17.3 (5-19)
[2022-08-26 07:07] LABS: Potassium 3.3 mmol/L (3.5-5.1)
[2022-08-26] MEDS: metoprolol tartrate 25 mg Tablet PO (08:20)
[2022-08-26] MEDS: scopolamine 1.5 Patch 1 PATCH TRANSDERMA (09:57)
--- NOTE | 2022-08-26 10:09 | P.PN_ITS ---
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
--- NOTE | 2022-08-26 14:01 | P.DS_ITS ---
Discharge Providers Date of Admission: 08/24/22 22:57 Date of Discharge: August 26, 2022 Attending Provider at Admission: Tania Peck MD Attending Provider at Discharge: Celia Mcgee MD Primary Care Provider: Bucky Rogers MD Diagnoses at Discharge Discharge Diagnosis (1) LEVY (acute kidney injury): Status: Acute (2) Vomiting: Status: Acute (3) Gastroenteritis: Status: Acute (4) Acute hyponatremia: Status: Acute (5) Vomiting: Status: Acute (6) Memory loss: Status: Acute (7) Plaque psoriasis: Status: Acute Reason for Visit Reason for Visit: abd pain, nausea Brief History: As per Dr. Peck Rachelle Mireles is a 52 year old female with history of cyclical vomiting, active smoker, presented with chief complaint of nausea and vomiting.? Patient is stating that she ate beans 48 hours ago, her symptoms started within 1 hour of consumption of beans.? She consumed canned preserved beans.? She has noticed fever 100.0, she is endorsing 20 episodes of emesis with 2 episodes of diarrhea.? Because of excessive dehydration she decided to come to the hospital for further evaluation The ER she has been diagnosed with LEVY, hyponatremia, hypokalemia and dehydration.? CT abdomen pelvis showing gastroenteritis. She received 2 L of IV fluid in the ER along Protonix and Haldol Hospital Course Hospital Course Patient was admitted for dehydration nausea vomiting gastroenteritis. She was placed on Zosyn. She was severely dehydrated and requiring electrolyte supplementation and IV fluids. She also had hyponatremia which is chronic for her. She does have cyclical vomiting syndrome. She uses marijuana. It could also be related to food poisoning since patient had some beans and all this started right after she had beans a few days ago. Last 24 hours she has only had 1 time vomit otherwise has been stable. She says she is well enough and would like to go home today. She is also tolerating a solid diet and kept it down. Patient was advised to recheck her BMP as an outpatient to follow-up with her primary care doctor. Sodium levels have stayed stable at 125.26. Her baseline is around 1 27-1 28. Creatinine was in the 2 range on admission and now it has trended down to 1.6. I expected to get better over the next few days. Patient was also given a scopolamine patch for nausea. She is also requesting to go home. Abdomen is nontender and is soft. No rebound tenderness present. Bowel sounds present and normal. BBC count trending down to 11.1. I have given her a course of ciprofloxacin and Flagyl for 5 days. Patient will be discharged home in stable condition. All questions answered to patient satisfaction. Patient has been a difficult IV access during hospital stay. I advised her to drink lots of Gatorade when she goes home. Physical Exam Narrative: Awake and alert Denies abdominal pain at this time. Denies nausea. Appears comfortable sitting up in bed. S1, S2 RRR Currently on room air Hemodynamically stable Awake and alert Nonfocal neuro exam Clinically looks dehydrated Appropriate mood and affect Discharge Data Studies Completed and Pending Completed Studies During Hospitalization Category Date Time Status CT abdomen pelvis wo con [id number] Stat Cat Scan 08/24/22 19:49 Completed XR KUB portable [id number] Stat Exams 08/24/22 18:45 Completed Pending at discharge Category Date Time Status Basic Metabolic Panel AM LABS Lab 08/27/22 04:00 Ordered Complete Blood Count w/Auto AM LABS Lab 08/27/22 04:00 Ordered Magnesium AM LABS Lab 08/27/22 04:00 Ordered Phosphorus AM LABS Lab 08/27/22 04:00 Ordered Radiology Impressions KUB X-Ray 08/24/22 18:45 IMPRESSION: No acute findings. Abdomen/Pelvis CT 08/24/22 19:49 IMPRESSION: 1. Circumferential wall thickening of the distal esophagus likely reflecting reflux esophagitis. 2. Fluid-filled stomach and proximal bowel loops which may reflect a gastroenteritis. COMMENTS: Consistent with the [employer]'s Incidental Findings Committee white paper (J Am Marga Radiol 2018): Any incidental renal lesion less than 1 cm or classified as too small to characterize, or any incidental cystic renal lesion characterized as simple-appearing, is likely benign. No follow-up imaging is recommended for these lesions per consensus recommendations based on imaging criteria. Laboratory Results WBC 11.6 10^3/uL (4.0-10.0) H 08/26/22 06:15 RBC 4.66 10^6/uL (4.1-5.3) 08/26/22 06:15 Hgb 14.0 g/dL (11.5-15.3) 08/26/22 06:15 Hct 42.1 % (37.0-47.0) 08/26/22 06:15 MCV 90.3 fl (81-99) 08/26/22 06:15 MCH 30.0 pg (28.0-34.0) 08/26/22 06:15 MCHC 33.3 g/dL (30.0-36.0) D 08/26/22 06:15 RDW 13.3 % (12.1-15.1) 08/26/22 06:15 Plt Count 318 10^3/cmm (130-400) 08/26/22 06:15 MPV 10.5 fL (7.4-10.4) H 08/26/22 06:15 Neut % (Auto) 72.1 % 08/26/22 06:15 Lymph % (Auto) 13.1 % 08/26/22 06:15 [place] % (Auto) 13.5 % 08/26/22 06:15 Eos % (Auto) 0.9 % 08/26/22 06:15 Baso % (Auto) 0.1 % 08/26/22 06:15 Neut # (Auto) 8.38 10^3/uL (1.8-7.7) H 08/26/22 06:15 Lymph # (Auto) 1.5 10^3/uL (0.8-4.8) 08/26/22 06:15 [place] # (Auto) 1.6 10^3/uL (0.2-0.9) H 08/26/22 06:15 Eos # (Auto) 0.1 10^3/uL (0.0-0.8) 08/26/22 06:15 Baso # (Auto) 0.0 10^3/uL (0.0-0.1) 08/26/22 06:15 Nucleated RBC % (auto) 0 % 08/26/22 06:15 Nucleated RBCs # 0.0 /100WBC 08/26/22 06:15 Sodium 126 mmol/L (136-145) L 08/26/22 06:15 Potassium 3.3 mmol/L (3.5-5.1) L 08/26/22 06:15 Chloride 85 mmol/L (98-107) L 08/26/22 06:15 Carbon Dioxide 27 mmol/L (22-29) 08/26/22 06:15 Anion Gap 17.3 (5-19) 08/26/22 06:15 BUN 30 mg/dL (6-20) H 08/26/22 06:15 Creatinine 1.6 mg/dL (0.5-0.9) H 08/26/22 06:15 GFR Calculation 33.6 mL/min (90-130) L 08/26/22 06:15 Glucose 129 mg/dL (65-115) H 08/26/22 06:15 Calculated Osmolality 270 mOsm/kg (285-295) L 08/26/22 06:15 Lactate 1.7 mmol/L (0.5-2.2) 08/24/22 18:55 Calcium 9.5 mg/dL (8.5-10.5) 08/26/22 06:15 Phosphorus 4.6 mg/dL (2.5-4.5) H 08/25/22 04:12 Magnesium 2.1 mg/dL (1.7-2.3) 08/26/22 06:15 Total Bilirubin 0.7 mg/dL (0.15-1.2) 08/24/22 18:55 AST 46 U/L (0-32) H 08/24/22 18:55 ALT 20 U/L (0-33) 08/24/22 18:55 Alkaline Phosphatase 139 U/L (35-105) H 08/24/22 18:55 C-Reactive Protein 14.9 mg/L (0.0-4.9) H 08/24/22 18:55 Total Protein 9.2 g/dL (6.6-8.7) H 08/24/22 18:55 Albumin 4.9 g/dL (3.5-5.2) 08/24/22 18:55 Globulin 4.3 g/dL (1.3-4.6) 08/24/22 18:55 Lipase 21 U/L (13-60) 08/24/22 18:55 Procalcitonin 0.44 ng/mL (0-0.5) 08/24/22 18:55 Urine Color Straw (Yellow) 08/25/22 09:25 Urine Appearance Clear (CLEAR) 08/25/22 09:25 Urine pH 5 (5-7) 08/25/22 09:25 Ur Specific [place] 1.010 (1.005-1.030) 08/25/22 09:25 Urine Protein 1+ (Negative) H 08/25/22 09:25 Urine Glucose (UA) Norm (Normal) 08/25/22 09:25 Urine Ketones 1+ (Negative) H 08/25/22 09:25 Urine Blood 3+ (Negative) H 08/25/22 09:25 Urine Nitrate Negative (Negative) 08/25/22 09:25 Urine Bilirubin Neg (Negative) 08/25/22 09:25 Urine Urobilinogen Norm mg/dL (Negative) 08/25/22 09:25 Ur Leukocyte Esterase Negative (Negative) 08/25/22 09:25 Urine RBC 5-10 /hpf (0-2) H 08/25/22 09:25 Urine WBC 5-10 /hpf (0-5) H 08/25/22 09:25 Ur Squamous Epith Cells 5-10 /hpf (0-5) H 08/25/22 09:25 Amorphous Sediment 1+ /hpf 08/25/22 09:25 Urine Bacteria 1+ /hpf (NONE) H 08/25/22 09:25 Urine Mucus Trace /hpf 08/25/22 09:25 Nasal Influ A H1 2009 PCR Not detected (NOT DETECT) 08/24/22 20:25 Urine Opiates Screen Negative ng/mL (Negative) 08/25/22 09:25 Ur Barbiturates Screen Negative ng/mL (Negative) 08/25/22 09:25 Ur Phencyclidine Scrn Negative ng/mL (Negative) 08/25/22 09:25 Ur Amphetamines Screen Negative ng/mL (Negative) 08/25/22 09:25 U Benzodiazepines Scrn Negative ng/mL (Negative) 08/25/22 09:25 Urine Cocaine Screen Negative ng/mL (Negative) 08/25/22 09:25 U Marijuana (THC) Screen Positive ng/mL (Negative) H 08/25/22 09:25 Adenovirus (PCR) Not detected (NOT DETECT) 08/24/22 20:25 C. pneumoniae DNA (PCR) Not detected (NOT DETECT) 08/24/22 20:25 Coronavirus 229E (PCR) Not detected (NOT DETECT) 08/24/22 20:25 Human Metapneumovir PCR Not detected (NOT DETECT) 08/24/22 20:25 Influenza A (H1) PCR Not detected (NOT DETECT) 08/24/22 20:25 Influenza A (H3) PCR Not detected (NOT DETECT) 08/24/22 20:25 Influenza Type A (PCR) Not detected (NOT DETECT) 08/24/22 20:25 Influenza Type B (PCR) Not detected (NOT DETECT) 08/24/22 20:25 M. pneumoniae (PCR) Not detected (NOT DETECT) 08/24/22 20:25 Parainfluenza 1 (PCR) Not detected (NOT DETECT) 08/24/22 20:25 Parainfluenza 2 (PCR) Not detected (NOT DETECT) 08/24/22 20:25 Parainfluenza 3 (PCR) Not detected (NOT DETECT) 08/24/22 20:25 Parainfluenza 4 (PCR) Not detected (NOT DETECT) 08/24/22 20:25 RSV Type A (PCR) Not detected (NOT DETECT) 08/24/22 20:25 RSV Type B (PCR) Not detected (NOT DETECT) 08/24/22 20:25 Entero/Rhino (PCR) Not detected (NOT DETECT) 08/24/22 20:25 SARS-CoV-2 (PCR) Not detected (NOT DETECT) 08/24/22 20:25 Vitals Last Vital Signs Temp 97.7 F 08/26/22 12:00 Pulse 79 08/26/22 12:00 Resp 17 08/26/22 12:00 BP 135/91 08/26/22 12:00 Pulse Ox 96 08/26/22 12:00 O2 Del Method 08/26/22 12:00 Discharge Plan Discharge Patient Disposition: Home Condition: Stable Prescriptions: New ciprofloxacin HCl 500 mg tablet 500 mg PO Q12H 5 Days Qty: 10 0RF metronidazole 500 mg tablet 500 mg PO BID 5 Days Qty: 10 0RF Continued multivitamin [Daily Multi-Vitamin] Tablet 1 tab PO DAILY Cymbalta 60 mg capsule,delayed release(DR/EC) 60 mg PO BID Qty: 60 0RF metoprolol tartrate 25 mg tablet 25 mg PO BID Qty: 180 3RF baclofen 20 mg Tablet 20 mg PO TID PRN (Reason: Muscle Spasm) albuterol sulfate [Ventolin HFA] 90 mcg/actuation Hfa Aerosol Inhaler 1 - 2 puff INHALATION QID PRN (Reason: Shortness Of Breath) pantoprazole 40 mg tablet,delayed release (DR/EC) 40 mg PO BID ketoconazole 2 % shampoo 1 applic topical Q7D Rx Instructions: Lather into scalp 1 time weekly. Allow to sit on scalp for 5 minutes before rinsing. ascorbic acid (vitamin C) [Vitamin C] 500 mg Tablet 500 mg PO QAM Skyrizi 150 mg/mL pen injector 150 mg SUBCUT .EVERY 12 WEEKS alum-mag hydroxide-simeth [Maalox Maximum Strength] 400-400-40 mg/5 mL suspension 2.5 ml PO Q3H PRN (Reason: indigestion) Qty: 3000 0RF promethazine 25 mg tablet 25 mg PO Q6H PRN (Reason: Nausea) amlodipine 10 mg tablet 10 mg PO BEDTIME pregabalin 100 mg capsule 100 mg PO BID aspirin 81 mg tablet,delayed release (DR/EC) 81 mg PO QAM thiamine mononitrate (vit B1) 100 mg tablet 100 mg PO DAILY Qty: 30 0RF folic acid 1 mg tablet 1 mg PO DAILY Qty: 30 0RF hydrocodone-acetaminophen 5-325 mg tablet 1 tab PO Q6H PRN (Reason: pain) Qty: 10 0RF Discharge Orders: Discharge Order (Routine); Ordered 08/26/22 Ordered By: Celia cMgee Other Ambulatory Orders: Basic Metabolic Panel (Routine) Timeframe: 1 Week Facility: [facility] - Location: Lab - Main Lab Ordered By: Celia Mcgee Referrals: Bucky Rogers MD [Primary Care Provider] - 4-7 days (Please call Saturday to make an appointment with your primary care provider. ) Discharge Diet: GI Soft Discharge Activity: Resume usual activity Patient Instructions: Ciprofloxacin (By mouth), Metronidazole (By mouth), Gastroenteritis (DC), Opioid Safety Activity Restrictions/Additional Instructions: Please finish your antibiotics as directed and drink lots of Gatorade when at home. Please check your labs as directed and follow-up with your primary care doctor as an outpatient. If you have worsening symptoms abdominal pain, diarrhea, naus ea, vomiting please come back to the ER. If you develop any new symptoms or Worsening of existing symptoms return to ER immediately. Please follow-up softer diet as discussed when you were seen today. Discharge Attestations Time Spent in Discharge Care*: greater than 30 min Status at Discharge: Cognitive status at discharge: cognitively intact , Behavioral status at discharge: cooperative , Quality Metrics Clinical Quality Measures [ No reported AMI, CVA or VTE this stay] Coding Level of Care Code Acute Chg FW DC note Diagnoses LEVY (acute kidney injury) N17.9 Vomiting R11.10 Gastroenteritis K52.9 Acute hyponatremia E87.1 Vomiting R11.10 Memory loss R41.3 Plaque psoriasis L40.0
--- NOTE | 2022-08-26 14:20 | PC.NURSE ---
PT given 1 cipro and 1 flagyl tablet to take tonight at home.
== END 2022-08-26 14:20 | disposition home or self-care (01) ==
LOC: ER 20:07 → MEDSURG 22:58
PROVIDERS: Admitting Provider Internal Medicine; Emergency Provider Emergency Medicine; PCP Family Medicine; Visit Provider Internal Medicine
DX: N17.9 Acute kidney failure, unspecified (principal); R11.10 Vomiting, unspecified; K52.9 Noninfective gastroenteritis and colitis, unspecified; E87.1 Hypo-osmolality and hyponatremia; R41.3 Other amnesia; L40.0 Psoriasis vulgaris; E86.0 Dehydration; F17.210 Nicotine dependence, cigarettes, uncomplicated; E87.6 Hypokalemia
CPT/HCPCS: 36415; 74018; 74176; 80048; 80053; 80306; 81001; 83605; 83690; 83735; 84100; 84145; 85025; 86140; 87486; 87581; 87633; 96361; 96365; 96366; 96367; 96372; 96375; 96376; 99285; C9113; G0378; J1630; J1644; J2405; J2543; J3411; J3480; J7030

== ENCOUNTER → 2022-08-29 08:41 | Outpatient (BNVA) | payer MEDICARE, MEDICAID, SELFPAY | PROVIDERS: PCP Family Medicine; Referring Provider Family Medicine; Visit Provider Specialist | DX: M25.512 Pain in left shoulder (principal); S49.92XA Unspecified injury of left shoulder and upper arm, initial encounter; W17.89XA Other fall from one level to another, initial encounter; M67.912 Unspecified disorder of synovium and tendon, left shoulder; M19.012 Primary osteoarthritis, left shoulder | CPT/HCPCS: 20610; 73030; 99214; J1100; J2795; J3301 ==

== ENCOUNTER 2022-11-21 15:40 | Outpatient (CLI) | payer MEDICARE, MEDICAID, SELFPAY ==
[2022-11-21 16:43] LABS: Basophils # 0.1 10^3/uL (0.0-0.1); Basophils % 0.8 %; Eosinophils # 0.4 10^3/uL (0.0-0.8); Eosinophils % 3.5 %; Hematocrit 40.5 % (37.0-47.0); Lymphocytes % 28.6 %; Mean Corpuscular HGB Conc 32.1 g/dL (30.0-36.0); Mean Corpuscular Hemoglobin 29.3 pg (28.0-34.0); Mean Corpuscular Volume 91.4 fl (81-99); Mean Platelet Volume 9.7 fL (7.4-10.4); Monocytes # 0.8 10^3/uL (0.2-0.9); Monocytes % 7.4 %; Neutrophils # 6.19 10^3/uL (1.8-7.7); Neutrophils % 59.3 %; Nucleated Red Blood Cells % 0 %; Platelet Count 455 10^3/cmm (130-400); Red Blood Count 4.43 10^6/uL (4.1-5.3); Red Cell Distribution Width 15.6 % (12.1-15.1); White Blood Count 10.4 10^3/uL (4.0-10.0)
[2022-11-21 17:24] LABS: Alanine Aminotransferase 8 U/L (0-33); Albumin Level 4.3 g/dL (3.5-5.2); Alkaline Phosphatase 106 U/L (35-105); Aspartate Amino Transferase 14 U/L (0-32); Blood Urea Nitrogen 12 mg/dL (6-20); Calcium 9.6 mg/dL (8.5-10.5); Carbon Dioxide 24 mmol/L (22-29); Chloride 106 mmol/L (98-107); Globulin 3.5 g/dL (1.3-4.6); Glomerular Filtration Rate 65.2 mL/min (90-130); Glucose 83 mg/dL (65-115); Osmolality Calculated 291 mOsm/kg (285-295); Sodium 141 mmol/L (136-145); Total Bilirubin 0.4 mg/dL (0.15-1.2); Total Protein 7.8 g/dL (6.6-8.7)
[2022-11-21 17:44] LABS: Hepatitis A Antibody IgM Non-Reactive (Nonreactive); Hepatitis B Surface AB 271.7 (11.5-1000); Hepatitis B Surface Antigen Non-Reactive (Nonreactive); Hepatitis C Virus Antibody Non-Reactive (Nonreactive)
[2022-11-21 21:19] LABS: Hepatitis B Core AB, Total Reactive (Nonreactive)
[2022-11-22 14:10] LABS: HIV 1 & 2 Antibody Non-Reactive (Non-Reactiv); HIV 1 & 2 Antigen Non-Reactive (Non-Reactiv)
[2022-11-24 13:30] LABS: Quantiferon Mitogen >10.00 IU/mL; Quantiferon Nil 0.04 IU/mL; Quantiferon Plus TB1 <0.00 IU/mL; Quantiferon Plus TB2 <0.00 IU/mL; Quantiferon TB Gold NEGATIVE (NEGATIVE)
== END 2022-11-21 15:41 | disposition home or self-care (01) ==
PROVIDERS: PCP Family Medicine; Visit Provider Dermatology
DX: L40.0 Psoriasis vulgaris (principal); Z79.899 Other long term (current) drug therapy
CPT/HCPCS: 36415; 80053; 85025; 86480; 86705; 86706; 86709; 86803; 87340; 87806

== ENCOUNTER 2022-11-22 14:35 | Outpatient (CLI) | payer MEDICARE, MEDICAID, SELFPAY ==
--- NOTE | 2022-11-22 14:49 | XR_ITS ---
WS: [id number] EXAMINATION: XR lumbar spine 2-3V* [id number] L-SPINE : 3 views REASON FOR EXAM: LOW BACK PAIN COMPARISON: 12/20/2009 ORDER DATE: 11/22/2022 2:50 PM FINDINGS: The lumbar vertebral bodies and the disc spaces are normal in width. In the lumbar vertebra, there i s no evidence of compression deformities or spondylolisthesis. XR/XR lumbar spine 2-3V* [id number] IMPRESSION: 5 lumbar-type vertebral bodies are seen with numerous threaded screws extending through the first sacral segment. No fracture or subluxation. There is a promi nent and increased anterior osteophytes anterior disc widening at the L4-5 leve l marked amount of sclerotic change in the inferior endplate of L4. These carty es have evolved since the previous study. Surgical clips seen in the right uppe r quadrant suggesting previous cholecystectomy. IMPRESSION The sclerotic change in L4 along with a widened L4-5 disc and large anterior sp ur could represent acute, acute on chronic, or chronic discitis. Recommend frederic elation with sedimentation rate and other inflammatory markers and if elevated recommend an MR study of the lumbar spine for further assessment although the n earby metal artifact may be too great to obtain diagnostic imaging and if so po ssibly well collimated CT imaging with contrast would be feasible. Mild degenerative changes in the remainder of the lumbar spine .
--- NOTE | 2022-11-22 14:49 | XR_ITS ---
WS: [id number] EXAMINATION: XR shoulder RT min 2V* [id number] REASON FOR EXAM: SHOULDER JOINT PAIN, RIGHT COMPARISON: None available. ORDER DATE: 11/22/2022 2:50 PM TECHNIQUE: 3 views of the right shoulder were obtained. X-RAY FINDINGS: The glenohumeral joint is unremarkable. There is separation at the acromioclavicular joint of approxi mately 3 cm with elevation of the distal clavicle.. Limited visualization of the adjacent hemithorax is unremarkable. XR/XR shoulder RT min 2V* [id number] IMPRESSION: Right side type III AC separation
== END 2022-11-22 14:36 | disposition home or self-care (01) ==
LOC: RAD 14:41
PROVIDERS: PCP Family Medicine; Visit Provider Nurse Practitioner Family
DX: S43.101A Unspecified dislocation of right acromioclavicular joint, initial encounter (principal); X58.XXXA Exposure to other specified factors, initial encounter
CPT/HCPCS: 72100; 73030

== ENCOUNTER 2022-12-01 22:58 | Inpatient (IN) | payer MEDICARE, MEDICAID, SELFPAY ==
[2022-12-01 23:00] VITALS: BP 165/138; PULSE 127; RESP 24; TEMP 36.2; O2SAT 95
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
[2022-12-01 23:05] VITALS: BP 165/138; PULSE 133; RESP 20; O2SAT 91
[2022-12-01 23:23] LABS: Basophils % 0.1 %; Eosinophils # 0.1 10^3/uL (0.0-0.8); Eosinophils % 0.5 %; Hematocrit 44.4 % (37.0-47.0); Hemoglobin 15.7 g/dL (11.5-15.3); Lymphocytes # 1.4 10^3/uL (0.8-4.8); Lymphocytes % 6.5 %; Mean Corpuscular HGB Conc 35.4 g/dL (30.0-36.0); Mean Corpuscular Hemoglobin 29.8 pg (28.0-34.0); Mean Corpuscular Volume 84.3 fl (81-99); Mean Platelet Volume 10.2 fL (7.4-10.4); Monocytes # 2.1 10^3/uL (0.2-0.9); Monocytes % 10.2 %; Neutrophils # 17.03 10^3/uL (1.8-7.7); Neutrophils % 81.7 %; Nucleated Red Blood Cells % 0 %; Platelet Count 424 10^3/cmm (130-400); Red Blood Count 5.27 10^6/uL (4.1-5.3); White Blood Count 20.9 10^3/uL (4.0-10.0)
[2022-12-01 23:39] LABS: HCG, Serum Qual Negative (Negative)
[2022-12-01 23:41] LABS: Troponin T (5th) Once 37 ng/L (0-10)
[2022-12-01] MEDS: diphenhydrAMINE 50 mg/mL SDV 1mL IVP (23:42)
[2022-12-01] MEDS: sodium chloride 0.9% 1,000 ML 999 ML IV (23:42)
[2022-12-01 23:44] LABS: Alanine Aminotransferase 31 U/L (0-33); Albumin Level 5.3 g/dL (3.5-5.2); Alkaline Phosphatase 141 U/L (35-105); Anion Gap 30.1 (5-19); Aspartate Amino Transferase 101 U/L (0-32); Blood Urea Nitrogen 46 mg/dL (6-20); Calcium 9.8 mg/dL (8.5-10.5); Carbon Dioxide 31 mmol/L (22-29); Chloride 66 mmol/L (98-107); Globulin 4.3 g/dL (1.3-4.6); Glomerular Filtration Rate 16.3 mL/min (90-130); Glucose 132 mg/dL (65-115); Lipase 28 U/L (13-60); Osmolality Calculated 272 mOsm/kg (285-295); Potassium 3.1 mmol/L (3.5-5.1); Sodium 124 mmol/L (136-145); Total Bilirubin 1.4 mg/dL (0.15-1.2); Total Protein 9.6 g/dL (6.6-8.7)
[2022-12-02] VITALS (68 sets, daily range): BP systolic 132–200; BP diastolic 78–152; PULSE 64–123; RESP 13–31; TEMP 36.7–36.9; O2SAT 86–99; BMI 24.2
--- NOTE | 2022-12-02 00:39 | CTR_ITS ---
PROCEDURE INFORMATION: Exam: CT Abdomen And Pelvis Without Contrast Exam date and time: 12/02/2022 12:56 AM Age: 52 years old Clinical indication: Nausea and vomiting and other: Diarrhea; Prior surgery; Surgery date: 6+ months; Surgery type: Hysterectomy; Additional info: N/v/d TECHNIQUE: Imaging protocol: Computed tomography of the abdomen and pelvis without contrast. Radiation optimization: All CT scans at this facility use at least one of these dose optimization techniques: automated exposure control; mA and/or kV adjustment per patient size (includes targeted exams where dose is matched to clinical indication); or iterative reconstruction. REPORTING DATA: Count of CT and Cardiac NM exams in prior 12 months: This patient has received 4 known CTs and 0 known cardiac nuclear medicine studies in the 12 months prior to the current study. COMPARISON: CT abdomen pelvis wo con [id number] 08/24/2022 7:59 PM RADIATION DOSE METRICS: Total DLP (mGy-cm): 418.17 FINDINGS: Lungs: The lung bases are clear. Mediastinal space: Suspect some mucosal/wall thickening involving the lower esophagus, although this might be a transient appearance. While nonspecific, the findings could represent evidence for esophagitis. Neoplasm not entirely excluded. Please correlate clinically. Diaphragm: Suspect a small hiatal hernia. Liver: Unremarkable. Gallbladder and bile ducts: Prior cholecystectomy, no significant biliary tree dilation. Pancreas: Unremarkable. Spleen: Unremarkable. Adrenal glands: Somewhat prominent adrenal glands bilaterally, left greater than right. No significant interval change. Kidneys and ureters: No hydronephrosis of either kidney. No visible renal or ureteral calculus. Two stable simple appearing cysts extending from the upper left kidney. Larger measures about 2 cm. Stomach and bowel: Several small bowel loops are fluid-filled and borderline prominent in size, but the overall appearance is not strongly suggestive of significant small bowel obstruction at this time. This appearance could be secondary to some form of gastroenteritis. Please correlate clinically. If there is clinical suspicion for small bowel obstruction, follow-up may be helpful to exclude progression. There are no CT findings to strongly suggest diverticulitis or colitis. Negative CT does not entirely exclude colitis, so follow-up may be helpful, as clinically directed. Appendix: The appendix is visualized and appears normal. Intraperitoneal space: No free intraperitoneal air, or ascites. Vasculature: No evidence for abdominal aortic aneurysm. Lymph nodes: No retroperitoneal adenopathy. Urinary bladder: No visible calculus in the urinary bladder. The bladder is almost empty, limiting other evaluation. Reproductive: Prior hysterectomy. No definite ovarian/adnexal cyst or mass by CT. Bones/joints: Moderate degenerative/arthritic changes in the lumbar spine, similar to the prior exam. Old pelvic fractures and fixation hardware again noted. Soft tissues: No significant acute finding. CT/CT abdomen pelvis wo con [id number] IMPRESSION: 1. Several small bowel loops are fluid-filled and borderline prominent in size, see above discussion. This appearance could be secondary to some form of gastroenteritis. 2. No free intraperitoneal air. 3. Normal appendix. 4. No findings to strongly suggest diverticulitis or colitis, see above. 5. Suspect a small hiatal hernia. Suspected mucosal/wall thickening involving the lower esophagus, see above discussion. 6. Other findings discussed above.
[2022-12-02] MEDS: haloperidol inj 5 mg/mL INJ 1 mL 3 MG IVP (01:05)
[2022-12-02] MEDS: sodium chloride 0.9% 1,000 ML 999 ML IV (01:09)
[2022-12-02] MEDS: potassium chloride premix 100 ML 25 MEQ IV (01:13)
--- NOTE | 2022-12-02 01:15 | ECG_ITS ---
[facility] [place] [facility] Date: 2022-12-02 Pat Name: Rachelle Mireles Department: Room: Gender: Female [employer]: : 1970 Requested By: Ottoniel Cook Order Number: [id number] Reading MD: Shiv Liang Measurements Intervals [place] Rate: 117 P: 0 TX: 0 QRS: 150 QRSD: 91 T: 130 QT: 388 QTc: 542 Interpretive Statements Baseline artifact, regular narro complex TACHYCARDIA RIGHT AXIS DEVIATION [QRS AXIS > 100] ST DEPRESSION, CONSIDER SUBENDOCARDIAL INJURY [0.1+ mV ST DEPRESSION] Compared to ECG 01/21/2022 07:50:25 Right-axis deviation now present Electronically Signed On 12-02-2022 19:05:29 CDT by Shiv Liang [email or web address]
--- NOTE | 2022-12-02 01:47 | PM.HP ---
Providers/Chief Complaint Primary Care Provider: Bucky Rogers MD Chief Complaint: N/V History of Present Illness 52-year-old female with history of LEVY, alcohol withdrawal, dehydration, cyclical vomiting syndrome, depression, hypertensive urgency, GI bleed, stroke, cannabis dependence, nausea vomiting, hyponatremia presented to the hospital with complaints of nausea vomiting for the last 2 days. Patient uses marijuana routinely. Last use was 3 days ago. She uses albuterol as needed as well. She has been using Phenergan for the last 2 days without much improvement. Does report mild left upper quadrant pain. Denies any shortness of breath, chest pain, headache at this time. Has been having diarrhea since last few days as well. Says she has vomitted so many times that her abdomen is now sore. She has epigastric pain from retching. Denies chest pain otherwise. On arrival to ER blood pressure 165/138, respiratory 20, pulse 133, temperature 97.1. Labs remarkable for WBC 20.9, hemoglobin 15.7, platelets 424, sodium 124, potassium 3.1, chloride 66,, dioxide 31, BUN 46, creatinine 3.0, AST 101, ALT 31, test negative. Patient troponin 37. Lipase was normal. Previous records indicate the patient has been admitted before for similar complaint. She does have chronic hyponatremia. Her baseline is around 1 27-1 28. Baseline creatinine is 1.1. She was treated with ciprofloxacin and Flagyl last time she was here. Patient does have a history of difficult IV access. Medications/Allergies Home Medications Medication Instructions Recorded Confirmed Last Taken Type duloxetine 60 mg capsule,delayed 60 mg PO BID #60 caps 02/15/20 11/21/22 05/06/22 08:00 Rx release (Cymbalta) multivitamin (Daily Multi-Vitamin 1 tab PO DAILY 04/20/20 11/21/22 05/06/22 08:00 History tablet) albuterol sulfate 90 mcg/actuation 1 - 2 puff inhalation QID PRN 07/13/21 11/21/22 05/06/22 08:00 History aerosol inhaler (Ventolin HFA) Shortness Of Breath baclofen 20 mg tablet 20 mg PO TID PRN Muscle Spasm 07/13/21 11/21/22 05/06/22 08:00 History ascorbic acid (vitamin C) 500 mg 500 mg PO QAM 09/04/21 11/21/22 05/06/22 08:00 History tablet (Vitamin C) ketoconazole 2 % shampoo 1 applic topical Q7D 09/04/21 11/21/22 05/06/22 08:00 History pantoprazole 40 mg tablet,delayed 40 mg PO BID 09/04/21 11/21/22 05/06/22 08:00 History release metoprolol tartrate 25 mg tablet 25 mg PO BID #180 tabs 10/24/21 11/21/22 05/06/22 08:00 Rx risankizumab-rzaa 150 mg/mL 150 mg SUBCUT .EVERY 12 WEEKS 01/21/22 11/21/22 05/06/22 08:00 History subcutaneous pen injector (Sarah) amlodipine 10 mg tablet 10 mg PO BEDTIME 04/09/22 11/21/22 05/06/22 08:00 History aspirin 81 mg tablet,delayed 81 mg PO QAM 04/09/22 11/21/22 05/06/22 08:00 History release pregabalin 100 mg capsule 100 mg PO BID 04/09/22 11/21/22 05/06/22 08:00 History folic acid 1 mg tablet 1 mg PO DAILY #30 tabs 04/11/22 11/21/22 05/06/22 08:00 Rx thiamine mononitrate (vit B1) 100 100 mg PO DAILY #30 tabs 04/11/22 11/21/22 05/06/22 08:00 Rx mg tablet aluminum-mag hydroxide-simethicone 2.5 ml PO Q3H PRN indigestion 05/12/22 11/21/22 Unknown Rx 400 mg-400 mg-40 mg/5 mL oral susp #3,000 mL (Maalox Maximum Strength) hydrocodone 5 mg-acetaminophen 325 1 tab PO Q6H PRN pain #10 tabs 08/10/22 11/21/22 Unknown Rx mg tablet promethazine 25 mg tablet 25 mg PO Q6H PRN Nausea 08/25/22 11/21/22 Unknown History risankizumab-rzaa 150 mg/mL 150 mg SUBCUT ONCE #1 mL 09/05/22 11/21/22 Unknown Rx subcutaneous pen injector (Sarah) clobetasol 0.05 % scalp solution 1 applic topical DAILY #50 mL 11/21/22 11/21/22 Unknown Rx hydrocortisone 2.5 % topical 1 applic topical BID #28.35 grams 11/21/22 11/21/22 Unknown Rx ointment pimecrolimus 1 % topical cream 1 applic topical BID #60 grams 11/21/22 11/21/22 Unknown Rx (Elidel) Allergies Allergy/AdvReac Type Severity Reaction Status Date / Time adhesive tape Allergy Intermediate rash, red Verified 11/21/22 14:50 codeine Allergy ALGY-Anaphy Verified 11/21/22 14:50 laxis paroxetine [From Paxil] Allergy Unconscious Verified 11/21/22 14:50 PFSH Acute PFSH: Medical History Abdominal pain Abdominal pain Acute kidney injury Alcohol withdrawal Anxiety Cannabinoid hyperemesis syndrome Cannabis dependence, uncomplicated CVA (cerebral vascular accident) Cyclical vomiting Dehydration Elevated troponin FH: cholecystectomy GI bleed High risk medication use Hyperemesis Hypertension Hypertensive urgency Intractable nausea and vomiting Leukocytosis Major depressive disorder, recurrent, in partial remission Memory loss Nausea & vomiting Nausea and vomiting Plaque psoriasis Post-traumatic stress disorder, chronic Psoriatic arthritis Surgical History History of ankle surgery History of eye surgery History of hysterectomy History of pelvic surgery History of shoulder surgery History of toe surgery Family History Other CAD (coronary artery disease) Cancer Diabetes Hypertension Lung disease Social History Smoking and tobacco status: current some day smoker cigarettes Alcohol intake: current Vitals/I&O/Wt Last Vital Signs Temp 97.1 F L 12/01/22 23:00 Pulse 133 H 12/01/22 23:05 Resp 20 H 12/01/22 23:05 BP 165/138 12/01/22 23:05 Pulse Ox 91 12/01/22 23:05 O2 Del Method 12/01/22 23:05 Physical Exam Narrative: General: Sedated, appears dehydrated. HEENT: Normocephalic, atraumatic, EOMI, dry oral mucosa says she is nauseous. Cardio: Regular rate rhythm, normal S1-S2 Respiratory: Clear to auscultation bilaterally, no wheezes no rhonchi GI: Abdomen soft, mild left upper quadrant tenderness present nondistended, bowel sounds + Extremities: No edema. Data 12/01/22 23:17 12/01/22 23:17 A&P Assessment and plan (1) LEVY (acute kidney injury): (2) Memory loss: (3) CVA (cerebral vascular accident): (4) Hypertension: (5) Acute hypokalemia: (6) Psoriatic arthritis: (7) Cyclical vomiting: (8) Marijuana abuse: (9) Dehydration: (10) Hyponatremia: (11) Hypokalemia: (12) Metabolic alkalosis: Plan #Gastroenteritis #Hyponatremia, sodium 124 #Hypokalemia #Leukocytosis, reactive versus infection #Severe dehydration #Acute kidney injury #Cyclical vomiting syndrome #Marijuana dependence #History of psoriasis, osteoarthritis #History of GI bleed #History of stroke ? Patient given 2 L normal saline bolus, 40 IV potassium x1, Benadryl 50x1, haloperidol 3 mg IV push x1. 2 hours, 6-hour troponin pending ? Urinalysis ordered stat ? CT abdomen pelvis without contrast ordered. Results is pending at this time ? We will request for ultrasound-guided IV by ER as patient has a history of difficult IV access at previous admissions. ? Check blood cultures, urine culture ? We will start on normal saline 75 cc/h after checking her repeat BMP. Patient received 2 L normal saline bolus. ? Goal correction sodium 6-8 in 24 hours.. ? Scopolamine patch for nausea. Will alternate between Zofran and Reglan as needed ? Patient encouraged to refrain from using marijuana ? Labs look hemoconcentrated. ? Check CBC, BMP in a.m. ? Check magnesium, phosphorus ? We will replete electrolytes as needed ? Check alcohol level, urine drug screen ? Recent hepatitis profile negative. Gold QuantiFERON TB test negative. ? Check sodium every 4 hours - Monitor for seizures, neuro check q4H -- Place bahena for accurate output - I reviewed EKg, Mild ST depression in V3,V4. I will repeat another EKG. Await 2 hour, 6 hour trop. - Check serum osm, urine osm, urine sodium. Full code Heparin SQ twice daily, SCDs for DVT prophylaxis N.p.o. except medications as tolerated. Will advance diet as nausea improves. Attestations Medical Necessity Statement*: Observation admission for management of gastroenteritis Other Coding Information Focused coding review requested Diagnoses LEVY (acute kidney injury) N17.9 Memory loss R41.3 CVA (cerebral vascular accident) I63.9 Hypertension I10 Acute hypokalemia E87.6 Psoriatic arthritis L40.50 Cyclical vomiting R11.15 Marijuana abuse F12.10 Dehydration E86.0 Hyponatremia E87.1 Hypokalemia E87.6 Metabolic alkalosis E87.3
[2022-12-02 01:50] LABS: Troponin 5 2HR 39.58 ng/L (0-10); Troponin 5 2HR Delta 2.58 ABS# (0-10)
[2022-12-02] MEDS: morphine 4 mg/mL SDV 1 mL IVP (02:12)
[2022-12-02 02:49] LABS: Anion Gap 21.4 (5-19); Blood Urea Nitrogen 47 mg/dL (6-20); Calcium 8.8 mg/dL (8.5-10.5); Carbon Dioxide 31 mmol/L (22-29); Chloride 66 mmol/L (98-107); Glomerular Filtration Rate 14.6 mL/min (90-130); Glucose 110 mg/dL (65-115); Osmolality Calculated 255 mOsm/kg (285-295)
[2022-12-02] MEDS: famotidine 20 mg/2 mL INJ IVP ×2 (03:02→15:09)
[2022-12-02] MEDS: heparin 5,000 unit/mL INJ 1 mL 5000 UNIT SUBCUT ×2 (03:02→15:09)
[2022-12-02] MEDS: sodium chloride 0.9% 1,000 ML 150 ML IV (03:03)
[2022-12-02 03:16] LABS: Potassium 2.4 mmol/L (3.5-5.1); Sodium 116 mmol/L (136-145)
[2022-12-02] MEDS: HYDROmorphone 1 mg/mL INJ 1 mL 0.5 MG IVP (03:50)
[2022-12-02] MEDS: sodium chloride 3% 500 ML 30 ML IV (03:51)
[2022-12-02] MEDS: ondansetron 2 mg/ML SDV 2 mL 4 MG IVP (03:51)
--- NOTE | 2022-12-02 04:40 | PC.NURSE ---
Physician Communication Patient's blood pressure 200/127 at 0425, additionally patient has 40 meq KCL administering at 25 ml/hr with an additional [address] Mcgee contacted and order received for 10 mg IVP hydralazine PRN Q4HR for HTN, as well as an order to administer second order of 40 meq kcl IV after first administration is competed. See MAR for details.
[2022-12-02] MEDS: scopolamine 1.5 Patch 1 PATCH TRANSDERMA (04:47)
[2022-12-02] MEDS: hyDRALAzine 20 mg/mL INJ 1 mL 10 MG IVP (04:56)
[2022-12-02] MEDS: aspirin 81 mg EC Tablet PO (05:02)
[2022-12-02 05:12] LABS: Urine Random Sodium 33 mmol/L
[2022-12-02] MEDS: lidocaine 1% 5 ML in potassium chloride premix 100 ML 25 ML IV (05:15)
[2022-12-02] MEDS: promethazine 25 mg/mL SDV 1 mL 12.5 MG IM (05:27)
[2022-12-02 05:28] LABS: Bilirubin Urine Neg (Negative); Blood Urine 3+ (Negative); Glucose Urine UA Norm (Normal); Ketones Urine 1+ (Negative); Nitrate Urine Negative (Negative); Protein Urine 3+ (Negative); Sulfosalicylic Acid Urine Positive (Negative); Urine Appearance Hazy (CLEAR); Urine Color Yellow (Yellow); Urobilinogen Urine Norm (Negative); pH Urine 8 (5-7)
[2022-12-02 05:29] LABS: Add Urine Microscopic? YES; Leukocyte Esterase Urine Negative (Negative)
[2022-12-02 05:30] LABS: Bacteria Urine 1+ /hpf; Mucus Urine 1+ /hpf; Squamous Epithelial Cell Urine 0-4 /hpf (0-5); WBC Urine 0-4 /hpf (0-5)
[2022-12-02 06:48] LABS: Troponin 5 6HR 30.19 ng/L (0-10)
[2022-12-02 06:55] LABS: Troponin 5 6HR Delta -6.81 ng/L (0-12)
[2022-12-02] MEDS: folic acid 1 mg Tablet PO (07:18)
[2022-12-02] MEDS: duloxetine 60 mg Capsule PO ×2 (07:18→17:40)
[2022-12-02] MEDS: metoprolol tartrate 25 mg Tablet PO ×2 (07:19→17:40)
[2022-12-02] MEDS: pantoprazole DR 40 mg Tablet PO ×2 (07:19→17:40)
[2022-12-02] MEDS: thiamine 100 mg Tablet PO (07:19)
[2022-12-02 08:17] LABS: Procalcitonin 0.18 ng/mL (0-0.5)
[2022-12-02 08:28] LABS: Blood Urea Nitrogen 44 mg/dL (6-20); Calcium 8.6 mg/dL (8.5-10.5); Carbon Dioxide 28 mmol/L (22-29); Chloride 78 mmol/L (98-107); Glomerular Filtration Rate 18.4 mL/min (90-130); Glucose 95 mg/dL (65-115); Osmolality Calculated 275 mOsm/kg (285-295); Sodium 127 mmol/L (136-145)
[2022-12-02 08:56] LABS: Anion Gap 23.7 (5-19)
[2022-12-02 08:58] LABS: Potassium 2.7 mmol/L (3.5-5.1)
--- NOTE | 2022-12-02 09:06 | PC.PHAR ---
Addendum entered by Elissa Rubin 12/02/22 10:33: [facility] states they last filled amlodipine 10mg qam on 06/26/22 30d/s and 2.5mg daily on 10/09/22 30d/s-[facility] states they havent filled metoprolol tartrate 37.5mg bid for the pt-pt states she is suppose to get nicoderm 7mg patches states [facility] didnt give them to her [facility] states not covered by insurance-notes are made in the pharmacy comments Original Note: pt state she takes the medications entered-waiting for [facility] pharmacy to open to verify amlodipine mg pt states takes 10mg qam ext shows 10mg daily last filled 06/26/22 30d/s ext also shows 2.5mg qam filled 07/20/23 90d/s
[2022-12-02] MEDS: lidocaine 1% 5 ML in potassium chloride premix 100 ML 26.25 ML IV (09:50)
[2022-12-02] MEDS: amlodipine 10 mg Tablet PO (09:50)
[2022-12-02] MEDS: cefTRIAXone 1,000 MG in sodium chloride 0.9% (plus) 50 ML 100 MG IV (09:51)
[2022-12-02] MEDS: morphine 4 mg/mL SDV 1 mL 1 MG IVP ×3 (09:51→20:07)
--- NOTE | 2022-12-02 12:47 | PM.PN ---
Subjective Subjective: Patient was seen this morning, she tells me that she is doing well, alert and oriented, no headache, no blurry vision, she tells me that her last alcohol drink was over a month ago, but she does report marijuana use a few days ago, she tells me that she has been using marijuana since she was 7 years old Vitals/I&O/Wt Last Vital Signs Temp 98.5 F 12/02/22 03:45 Pulse 80 12/02/22 08:30 Resp 16 12/02/22 08:30 BP 165/109 12/02/22 08:00 Pulse Ox 95 12/02/22 08:30 O2 Del Method 12/02/22 04:00 12/01/22 12/02/22 12/02/22 22:59 06:59 14:59 Intake Total 1167.5 / 1167.5 Output Total 525 / 525 700 / 700 Balance 642.5 / 642.5 -700 / -700 Weight last 48 hrs Weight 67.993 kg Physical Exam Const: COMMON NORMALS: no acute distress and patient oriented x3 Resp: COMMON NORMALS: normal respiratory effort, No retractions, No use of accessory muscles and clear to auscultation bilaterally AUSCULTATION: clear to auscultation bilaterally Cardio: COMMON NORMALS: regular rate, regular rhythm, S1 normal heart sound present and S2 normal heart sound present RATE: regular rate RHYTHM: regular rhythm HEART SOUNDS: S1 normal heart sound present and S2 normal heart sound present GI: COMMON NORMALS: Normal to inspection, nondistended, normoactive bowel sounds present and non-tender Extremity: COMMON NORMALS: no pedal edema Neuro: COMMON NORMALS: patient oriented x3 Psych: COMMON NORMALS: mental status grossly normal Urinary Catheter Management: Bahena: Cath Placed During This Visit: yes Reason for Continuing Indwelling Catheter: Accurate Measurement of Urinary Output in Critically Ill Patients Urinary Catheter Date of Insertion: 12/02/22 Urinary Catheter Time of Insertion: 04:15 Data 12/01/22 23:17 12/02/22 06:10 Micro: Microbiology 12/02/22 06:03 Blood Culture - Preliminary Blood SPECIMEN COLLECTED 12/02/22 06:10 Blood Culture - Preliminary Blood SPECIMEN COLLECTED A&P Assessment and plan (1) LEVY (acute kidney injury): (2) Memory loss: (3) CVA (cerebral vascular accident): (4) Hypertension: (5) Acute hypokalemia: (6) Psoriatic arthritis: (7) Cyclical vomiting: (8) Marijuana abuse: (9) Dehydration: (10) Hyponatremia: (11) Hypokalemia: (12) Metabolic alkalosis: (13) UTI (urinary tract infection): Plan #Gastroenteritis #Hyponatremia, sodium 124 #Hypokalemia #Leukocytosis, reactive versus infection #Severe dehydration #Acute kidney injury #Cyclical vomiting syndrome #Marijuana dependence #History of psoriasis, osteoarthritis #History of GI bleed #History of stroke ? Patient given 2 L normal saline bolus, 40 IV potassium x1, Benadryl 50x1, haloperidol 3 mg IV push x1. 2 hours, 6-hour troponin pending ? Urinalysis ordered evidence of UTI, continue Rocephin ? CT abdomen pelvis without contrast no acute findings ? Check blood cultures, urine culture ? We will start on normal saline 75 cc/h after checking her repeat BMP. Patient received 2 L normal saline bolus. ? Was a hypertonic saline, most recent serum sodium 127, will stop -Advance to clear liquid diet ? Scopolamine patch for nausea. Will alternate between Zofran and Reglan as needed ? Patient encouraged to refrain from using marijuana ? Labs look hemoconcentrated. ? Check CBC, BMP in a.m. ? Check magnesium, phosphorus ? We will replete electrolytes as needed ? Recent hepatitis profile negative. Gold QuantiFERON TB test negative. ? Check sodium every 4 hours - Monitor for seizures, neuro check q4H -- Place bahena for accurate output -Hypokalemia receiving IV replacement, - I reviewed EKg, Mild ST depression in V3,V4. I will repeat another EKG. Await 2 hour, 6 hour trop. - Check serum osm, urine osm, urine sodium. Full code Heparin SQ twice daily, SCDs for DVT prophylaxis Clear liquid diet If she clinically improves she can move to second floor, hopefully discharge in the next 24 hours Attestations Medical Necessity Statement*: Patient requires hospitalization for hyponatremia, hypokalemia Diagnoses LEVY (acute kidney injury) N17.9 Memory loss R41.3 CVA (cerebral vascular accident) I63.9 Hypertension I10 Acute hypokalemia E87.6 Psoriatic arthritis L40.50 Cyclical vomiting R11.15 Marijuana abuse F12.10 Dehydration E86.0 Hyponatremia E87.1 Hypokalemia E87.6 Metabolic alkalosis E87.3 UTI (urinary tract infection) N39.0
[2022-12-02 14:12] LABS: Alanine Aminotransferase 37 U/L (0-33); Albumin Level 4.3 g/dL (3.5-5.2); Alkaline Phosphatase 115 U/L (35-105); Anion Gap 20.7 (5-19); Aspartate Amino Transferase 105 U/L (0-32); Blood Urea Nitrogen 36 mg/dL (6-20); Calcium 8.8 mg/dL (8.5-10.5); Carbon Dioxide 27 mmol/L (22-29); Chloride 84 mmol/L (98-107); Globulin 2.9 g/dL (1.3-4.6); Glomerular Filtration Rate 20.1 mL/min (90-130); Glucose 109 mg/dL (65-115); Osmolality Calculated 275 mOsm/kg (285-295); Potassium 3.7 mmol/L (3.5-5.1); Sodium 128 mmol/L (136-145); Total Bilirubin 0.5 mg/dL (0.15-1.2)
--- NOTE | 2022-12-02 14:29 | PM.CONSULT ---
Providers/Reason For Consult Consulting Physician/Specialty*: kommana/nephrology Reason for Consult*: LEVY Hyponatremia Attending Physician: Umberto Kulkarni MD Primary Care Provider: Bucky Rogers MD History of Present Illness History of Present Illness Rachelle Mireles is a 52 year old female with past medical history of history of alcoholism, depression, hypertension, history of GI bleeds, presented to the emergency department due to nausea vomiting diarrhea. In the ER he was noted to be elevated blood pressure was 165/130 and labs were significant for first initial sodium of 124. Patient received 2 L normal saline in the ED and was started 75 cc an hour. Repeat sodium was 116 in couple of hours which likely is an error. The next repeat was 127. Patient currently is awake alert oriented in no acute distress no confusion denies any falls denies any nausea vomiting currently. Also has a creatinine of 3.3 improved to 2.5 currently On review of prior labs-patient has baseline creatinine in the range of 0.8-1.0, but had multiple episodes of LEVY's in the past Review of Systems Narrative: Negative Medications/Allergies Home Medications Medication Instructions Recorded Confirmed Last Taken Type duloxetine 60 mg capsule,delayed 60 mg PO BID #60 caps 02/15/20 12/02/22 05/06/22 08:00 Rx release (Cymbalta) albuterol sulfate 90 mcg/actuation 1 - 2 puff inhalation QID PRN 07/13/21 12/02/22 05/06/22 08:00 History aerosol inhaler (Ventolin HFA) Shortness Of Breath baclofen 20 mg tablet 20 mg PO TID PRN Muscle Spasm 07/13/21 12/02/22 05/06/22 08:00 History ascorbic acid (vitamin C) 500 mg 500 mg PO QAM 09/04/21 12/02/22 05/06/22 08:00 History tablet (Vitamin C) pantoprazole 40 mg tablet,delayed 40 mg PO BID 09/04/21 12/02/22 05/06/22 08:00 History release risankizumab-rzaa 150 mg/mL 150 mg SUBCUT .EVERY 12 WEEKS 01/21/22 12/02/22 1 Month Ago History subcutaneous pen injector (Skyrizi) ~11/01/22 pt states being zuniga amlodipine 10 mg tablet 10 mg PO QAM 04/09/22 12/02/22 05/06/22 08:00 History aspirin 81 mg tablet,delayed 81 mg PO QAM 04/09/22 12/02/22 05/06/22 08:00 History release aluminum-mag hydroxide-simethicone 2.5 ml PO Q3H PRN indigestion 05/12/22 12/02/22 Unknown Rx 400 mg-400 mg-40 mg/5 mL oral susp #3,000 mL (Maalox Maximum Strength) promethazine 25 mg tablet 25 mg PO Q6H PRN Nausea 08/25/22 12/02/22 12/01/22 History hydrocortisone 2.5 % topical 1 applic topical BID #28.35 grams 11/21/22 12/02/22 Unknown Rx ointment pimecrolimus 1 % topical cream 1 applic topical BID #60 grams 11/21/22 12/02/22 Unknown Rx (Elidel) clobetasol 0.05 % scalp solution See Rx Instructions .Route .COMPLEX 12/02/22 12/02/22 Unknown History metoprolol tartrate 37.5 mg tablet 37.5 mg PO BID 12/02/22 12/02/22 Unknown History [id number]-Ca carb-vit K 1 tab PO DAILY 12/02/22 12/02/22 Unknown History 18 mg iron-400 mcg-500 mg tablet pregabalin 75 mg capsule 75 mg PO BID 12/02/22 12/02/22 Unknown History Allergies Allergy/AdvReac Type Severity Reaction Status Date / Time adhesive tape Allergy Intermediate rash, red Verified 11/21/22 14:50 codeine Allergy ALGY-Anaphy Verified 11/21/22 14:50 laxis paroxetine [From Paxil] Allergy Unconscious Verified 11/21/22 14:50 Current Medications Generic Name Dose Route Start Last Admin Trade Name Freq PRN Reason Stop Dose Admin Amlodipine Besylate 10 mg 12/02/22 09:00 12/02/22 09:50 Amlodipine 10 Mg Tablet PO 10 mg DAILY KATE Administration Aspirin 81 mg 12/02/22 06:00 12/02/22 05:02 Aspirin 81 Mg Ec Tablet PO 81 mg QAM KATE Administration Duloxetine HCl 60 mg 12/02/22 09:00 12/02/22 07:18 Duloxetine 60 Mg Capsule PO 60 mg BID KATE Administration Famotidine 20 mg 12/02/22 02:42 12/02/22 03:02 Famotidine 20 Mg/2 Ml Inj IVP 20 mg Q12H KATE Administration Folic Acid 1 mg 12/02/22 09:00 12/02/22 07:18 Folic Acid 1 Mg Tablet PO 1 mg DAILY KATE Administration Heparin Sodium (Porcine) 5,000 unit 12/02/22 02:42 12/02/22 03:02 Heparin 5,000 Unit/Ml Inj 1 Ml SUBCUT 5,000 unit Q12H KATE Administration Hydralazine HCl 10 mg 12/02/22 04:26 12/02/22 04:56 Hydralazine 20 Mg/Ml Inj 1 Ml IVP 10 mg Q4H PRN Administration HYPERTENSION Ceftriaxone Sodium 1,000 mg/ 50 mls @ 100 mls/hr 12/02/22 09:00 12/02/22 09:51 Sodium Chloride IV 100 mls/hr Q24H KATE Administration Protocol Metoprolol Tartrate 25 mg 12/02/22 09:00 12/02/22 07:19 Metoprolol Tartrate 25 Mg Tablet PO 25 mg BID KATE Administration Morphine Sulfate 1 mg 12/02/22 08:57 12/02/22 09:51 Morphine 4 Mg/Ml Sdv 1 Ml IVP 1 mg Q4H PRN Administration SEVERE PAIN Ondansetron HCl 4 mg 12/02/22 02:42 12/02/22 03:51 Ondansetron 2 Mg/Ml Sdv 2 Ml IVP 4 mg Q8H PRN Administration vomiting, or N/V if npo Pantoprazole Sodium 40 mg 12/02/22 09:00 12/02/22 07:[address] 40 Mg Tablet PO 40 mg BID KATE Administration Promethazine HCl 12.5 mg 12/02/22 02:42 12/02/22 05:27 Promethazine 25 Mg/Ml Sdv 1 Ml IM 12.5 mg Q6H PRN Administration NAUSEA Thiamine Mononitrate 100 mg 12/02/22 09:00 12/02/22 07:19 Thiamine 100 Mg Tablet PO 100 mg DAILY KATE Administration PFSH Acute PFSH: Medical History Abdominal pain Abdominal pain Acute kidney injury Alcohol withdrawal Anxiety Cannabinoid hyperemesis syndrome Cannabis dependence, uncomplicated CVA (cerebral vascular accident) Cyclical vomiting Dehydration Elevated troponin FH: cholecystectomy GI bleed High risk medication use Hyperemesis Hypertension Hypertensive urgency Intractable nausea and vomiting Leukocytosis Major depressive disorder, recurrent, in partial remission Memory loss Nausea & vomiting Nausea and vomiting Plaque psoriasis Post-traumatic stress disorder, chronic Psoriatic arthritis Surgical History History of ankle surgery History of eye surgery History of hysterectomy History of pelvic surgery History of shoulder surgery History of toe surgery Family History Other CAD (coronary artery disease) Cancer Diabetes Hypertension Lung disease Social History Smoking and tobacco status: current some day smoker cigarettes Alcohol intake: current Vitals/I&O/Wt Last Vital Signs Temp 98.5 F 12/02/22 03:45 Pulse 80 12/02/22 08:30 Resp 16 12/02/22 08:30 BP 165/109 12/02/22 08:00 Pulse Ox 95 12/02/22 08:30 O2 Del Method 12/02/22 04:00 12/01/22 12/02/22 12/02/22 22:59 06:59 14:59 Intake Total 1167.5 / 1167.5 Output Total 525 / 525 700 / 700 Balance 642.5 / 642.5 -700 / -700 Weight last 48 hrs Weight 67.993 kg Physical Exam Narrative: Patient is awake alert no acute distress HEENT S1-S2 regular rate and rhythm per report Lungs clear to auscultation per report No pedal edema Urinary Catheter Management: Abel: Cath Placed During This Visit: yes Reason for Continuing Indwelling Catheter: Accurate Measurement of Urinary Output in Critically Ill Patients Urinary Catheter Date of Insertion: 12/02/22 Urinary Catheter Time of Insertion: 04:15 Data 12/01/22 23:17 12/02/22 12:50 Micro: Microbiology 12/02/22 06:03 Blood Culture - Preliminary Blood SPECIMEN COLLECTED 12/02/22 06:10 Blood Culture - Preliminary Blood SPECIMEN COLLECTED A&P Assessment and plan (1) Hyponatremia: (2) LEVY (acute kidney injury): Plan 1. Acute kidney injury: Baseline creatinine in the range of 0.9-1 now presented with a creatinine of 3.3 likely prerenal from nausea vomiting diarrhea. Creatinine improving to 2.5 currently. Continue to monitor avoid nephrotoxins and IV contrast studies. 2. Hyponatremia: Acute on chronic. Likely hypovolemic, urine sodium 33, urine osmolality pending, sodium is 128 currently, continue to monitor. 3. Hypokalemia: Repleted 4. History of alcoholism 5. History of marijuana use Patient evaluated using audiovisual cart. Time spent 30 minutes Consult Attestations Medical Necessity Statement: Per admitting service Coding Level of Care Code Acute Code for [facility] Diagnoses Hyponatremia E87.1 LEVY (acute kidney injury) N17.9
[2022-12-02 14:33] LABS: Total Protein 7.2 g/dL (6.6-8.7)
[2022-12-02] MEDS: sodium chloride 0.9% 1,000 ML 125 ML IV ×2 (15:10→22:48)
[2022-12-02] MEDS: potassium chloride ER 20 mEq Tablet PO (15:35)
[2022-12-02 21:05] LABS: Anion Gap 15.3 (5-19); Blood Urea Nitrogen 29 mg/dL (6-20); Calcium 8.6 mg/dL (8.5-10.5); Carbon Dioxide 28 mmol/L (22-29); Chloride 87 mmol/L (98-107); Glomerular Filtration Rate 31.3 mL/min (90-130); Glucose 93 mg/dL (65-115); Osmolality Calculated 270 mOsm/kg (285-295); Potassium 3.3 mmol/L (3.5-5.1); Sodium 127 mmol/L (136-145)
[2022-12-03] VITALS (8 sets, daily range): BP systolic 125–146; BP diastolic 76–90; PULSE 58–93; RESP 16–18; TEMP 36.3–37.1; O2SAT 94–98
[2022-12-03] MEDS: famotidine 20 mg/2 mL INJ IVP (03:02)
[2022-12-03] MEDS: heparin 5,000 unit/mL INJ 1 mL 5000 UNIT SUBCUT (03:02)
[2022-12-03] MEDS: morphine 4 mg/mL SDV 1 mL 1 MG IVP ×2 (03:16→08:17)
[2022-12-03] MEDS: sodium chloride 0.9% 1,000 ML 125 ML IV (06:02)
[2022-12-03] MEDS: aspirin 81 mg EC Tablet PO (06:02)
[2022-12-03 06:13] LABS: Basophils % 0.2 %; Eosinophils # 0.1 10^3/uL (0.0-0.8); Eosinophils % 1.5 %; Hematocrit 39.4 % (37.0-47.0); Hemoglobin 12.7 g/dL (11.5-15.3); Lymphocytes # 2.5 10^3/uL (0.8-4.8); Lymphocytes % 29.3 %; Mean Corpuscular HGB Conc 32.2 g/dL (30.0-36.0); Mean Corpuscular Hemoglobin 30.5 pg (28.0-34.0); Mean Corpuscular Volume 94.5 fl (81-99); Mean Platelet Volume 10.3 fL (7.4-10.4); Monocytes # 1.1 10^3/uL (0.2-0.9); Monocytes % 12.6 %; Neutrophils # 4.75 10^3/uL (1.8-7.7); Nucleated Red Blood Cells % 0 %; Platelet Count 300 10^3/cmm (130-400); Red Blood Count 4.17 10^6/uL (4.1-5.3); Red Cell Distribution Width 14.7 % (12.1-15.1); White Blood Count 8.5 10^3/uL (4.0-10.0)
[2022-12-03 06:34] LABS: Blood Urea Nitrogen 20 mg/dL (6-20); Calcium 8.6 mg/dL (8.5-10.5); Carbon Dioxide 24 mmol/L (22-29); Chloride 94 mmol/L (98-107); Glomerular Filtration Rate 39.2 mL/min (90-130); Glucose 89 mg/dL (65-115); Osmolality Calculated 270 mOsm/kg (285-295); Sodium 129 mmol/L (136-145)
[2022-12-03 06:35] LABS: Anion Gap 14.3 (5-19); Potassium 3.3 mmol/L (3.5-5.1)
[2022-12-03 06:47] LABS: Phosphorus 2.7 mg/dL (2.5-4.5)
[2022-12-03] MEDS: pantoprazole DR 40 mg Tablet PO (08:08)
[2022-12-03] MEDS: duloxetine 60 mg Capsule PO (08:08)
[2022-12-03] MEDS: thiamine 100 mg Tablet PO (08:09)
[2022-12-03] MEDS: amlodipine 10 mg Tablet PO (08:09)
[2022-12-03] MEDS: folic acid 1 mg Tablet PO (08:09)
[2022-12-03] MEDS: cefTRIAXone 1,000 MG in sodium chloride 0.9% (plus) 50 ML 100 MG IV (08:09)
[2022-12-03] MEDS: potassium chloride ER 20 mEq Tablet 40 MEQ PO (08:17)
--- NOTE | 2022-12-03 08:33 | P.PN_ITS ---
Subjective Subjective: No new complaints Medications: Reviewed: Yes Vitals/I&O/Wt Last Vital Signs Temp 98.2 F 12/03/22 08:00 Pulse 67 12/03/22 08:12 Resp 16 12/03/22 08:17 BP 125/76 12/03/22 08:12 Pulse Ox 94 12/03/22 08:00 O2 Del Method 12/03/22 08:00 12/02/22 12/03/22 12/03/22 22:59 06:59 14:59 Intake Total 1794.167 / 3858.982 4546.167 / 3708.334 Output Total 150 / 850 850 / 1700 Balance 1644.167 / 792.567 6140.167 / 2008.334 Weight last 48 hrs Weight 71.395 kg Weight 67.993 kg Physical Exam Narrative: Patient is awake alert no acute distress HEENT S1-S2 regular rate and rhythm per report Lungs clear to auscultation per report No pedal edema Urinary Catheter Management: Abel: Cath Placed During This Visit: yes Reason for Continuing Indwelling Catheter: Other Urinary Catheter Date of Insertion: 12/02/22 Urinary Catheter Time of Insertion: 04:15 Data 12/03/22 06:02 12/03/22 06:02 Micro: Microbiology 12/02/22 06:03 Blood Culture - Preliminary Blood NEGATIVE TO DATE 12/02/22 06:10 Blood Culture - Preliminary Blood NEGATIVE TO DATE A&P Assessment and plan (1) Hyponatremia: (2) LEVY (acute kidney injury): Plan 1. Acute kidney injury: Baseline creatinine in the range of 0.9-1 now presented with a creatinine of 3.3 likely prerenal from nausea vomiting diarrhea. Creatinine improving to 1.4 currently. Continue to monitor avoid nephrotoxins and IV contrast studies. 2. Hyponatremia: Acute on chronic. Likely hypovolemic, urine sodium 33, urine osmolality pending, sodium is 129 ( likely her baseline Na ) currently, continue to monitor. 3. Hypokalemia: Replete 4. History of alcoholism 5. History of marijuana use Patient evaluated using audiovisual cart. Time spent 30 minutes Attestations Medical Necessity Statement*: Stable from nephrology standpoint, disposition per primary team Coding Level of Care Code Acute Code for [facility] Diagnoses Hyponatremia E87.1 LEVY (acute kidney injury) N17.9
--- NOTE | 2022-12-03 10:15 | PC.CHAP ---
Pastoral Care Encounter/Spiritual Assessment Type of Contact [] Declined scale tester visit [] Patient/Family/Request visit [] Outpatient visit [] Follow-up visit [] Physician referral [] Code/Alert [] Routine visit [] Staff referral [] Actively dying [] Patient sleeping [] Family support [] [] Out of room [] Palliative care [] [x] Receiving care in room [] Pre-surgical visit [] Trauma [] Long length of stay [] ICU visit [] Other: Relational/Emotional Strength [] Patient feels connected with others/family/visitors/staff [] Distress [] Loneliness/isolation [] Abandonment Spirituality of Patient [] Person of Ceci [] Attends Caodaism of their Ceci [] Believes in Prayer [] Reads Bible or Mormon materials [] There are Spiritual issues to be addressed Dye Operator Interventions [] Prayer [] Active listening [] Non-anxious presence [] Spiritual/emotional support [] Crisis/trauma care [] Spiritual counseling [] Bereavement support [] Provided bereavement packet [] Provided Bible/devotional materials [] Provided toy/stuffed animal, coloring book to patient or family member [] Provided Communion [] Anointing/Morrow [] Salvation [] Completed spiritual assessment [] Other: Impact on Illness or Injury [] Angry [] Fearful [] Anxious [] Often cries [] Exhaustion [] Unable to work [] Unable to attend zoroastrianism [] Unable to walk/stand [] Unable to read [] Unable to drive [] Unable to eat/drink [] Unable to sleep [] Unable to be with family [] Patient intubated [] Other: Summary Time spent with patient
--- NOTE | 2022-12-03 11:36 | PM.DCS ---
Discharge Providers Date of Admission: 12/02/22 01:47 Date of Discharge: December 03, 2022 Attending Provider at Admission: Celia Mcgee MD Attending Provider at Discharge: Umberto Kulkarni MD Primary Care Provider: Bucky Rogers MD Diagnoses at Discharge Discharge Diagnosis (1) Hyponatremia: Status: Acute (2) LEVY (acute kidney injury): Status: Acute Reason for Visit Reason for Visit: N/V Hospital Course Hospital Course 52-year-old female with history of LEVY, alcohol withdrawal, dehydration, cyclical vomiting syndrome, depression, hypertensive urgency, GI bleed, stroke, cannabis dependence, nausea vomiting, hyponatremia presented to the hospital with complaints of nausea vomiting for the last 2 days.? Patient uses marijuana routinely.? Last use was 3 days ago.? She uses albuterol as needed as well.? She has been using Phenergan for the last 2 days without much improvement.? Does report mild left upper quadrant pain.? Denies any shortness of breath, chest pain, headache at this time. Has been having diarrhea since last few days as well. Says she has vomitted so many times that her abdomen is now sore. She has epigastric pain from retching. Denies chest pain otherwise. On arrival to ER blood pressure 165/138, respiratory 20, pulse 133, temperature 97.1.? Labs remarkable for WBC 20.9, hemoglobin 15.7, platelets 424, sodium 124, potassium 3.1, chloride 66,, dioxide 31, BUN 46, creatinine 3.0, AST 101, ALT 31, test negative.? Patient troponin 37.? Lipase was normal. Previous records indicate the patient has been admitted before for similar complaint.? She does have chronic hyponatremia.? Her baseline is around 1 27-1 28.? Baseline creatinine is 1.1.? She was treated with ciprofloxacin and Flagyl last time she was here.? Patient does have a history of difficult IV access. Patient was admitted to [facility] for nausea, vomiting, cyclic vomiting syndrome likely sec to marijuana use, with hyponatremia, LEVY, dehydration, received IV fluids, overall clinically improved discharged home with instructions return continue electrolytes balanced fluids, abstain from marijuana use Physical Exam Const: COMMON NORMALS: no acute distress and patient oriented x3 Resp: COMMON NORMALS: normal respiratory effort, No retractions, No use of accessory muscles and clear to auscultation bilaterally AUSCULTATION: clear to auscultation bilaterally Cardio: COMMON NORMALS: regular rate, regular rhythm, S1 normal heart sound present and S2 normal heart sound present RATE: regular rate RHYTHM: regular rhythm HEART SOUNDS: S1 normal heart sound present and S2 normal heart sound present GI: COMMON NORMALS: Normal to inspection, nondistended, normoactive bowel sounds present and non-tender Extremity: COMMON NORMALS: no pedal edema Neuro: COMMON NORMALS: patient oriented x3 Psych: COMMON NORMALS: mental status grossly normal Urinary Catheter Management: Abel: Cath Placed During This Visit: yes, but has since been removed by the nurse Reason for Continuing Indwelling Catheter: Decision to DC Catheter Urinary Catheter Date of Insertion: 12/02/22 Urinary Catheter Time of Insertion: 04:15 Date Urinary Catheter Removed: 12/03/22 Time Urinary Catheter Discontinued: 09:32 Discharge Data Studies Completed and Pending Completed Studies During Hospitalization Category Date Time Status CT abdomen pelvis wo con [id number] Stat Cat Scan 12/02/22 00:39 Completed Pending at discharge Category Date Time Status Basic Metabolic Panel AM LABS Lab 12/04/22 04:00 Ordered Basic Metabolic Panel AM LABS Lab 12/05/22 04:00 Ordered Blood Culture Routine Lab 12/02/22 06:03 Results Osmolality Serum Stat Lab 12/02/22 06:10 Received Osmolality Urine Stat Lab 12/02/22 04:10 Received Radiology Impressions Abdomen/Pelvis CT 12/02/22 00:39 IMPRESSION: 1. Several small bowel loops are fluid-filled and borderline prominent in size, see above discussion. This appearance could be secondary to some form of gastroenteritis. 2. No free intraperitoneal air. 3. Normal appendix. 4. No findings to strongly suggest diverticulitis or colitis, see above. 5. Suspect a small hiatal hernia. Suspected mucosal/wall thickening involving the lower esophagus, see above discussion. 6. Other findings discussed above. Laboratory Results WBC 8.5 10^3/uL (4.0-10.0) 12/03/22 06:02 RBC 4.17 10^6/uL (4.1-5.3) 12/03/22 06:02 Hgb 12.7 g/dL (11.5-15.3) 12/03/22 06:02 Hct 39.4 % (37.0-47.0) 12/03/22 06:02 MCV 94.5 fl (81-99) 12/03/22 06:02 MCH 30.5 pg (28.0-34.0) 12/03/22 06:02 MCHC 32.2 g/dL (30.0-36.0) 12/03/22 06:02 RDW 14.7 % (12.1-15.1) 12/03/22 06:02 Plt Count 300 10^3/cmm (130-400) 12/03/22 06:02 MPV 10.3 fL (7.4-10.4) 12/03/22 06:02 Neut % (Auto) 56.0 % 12/03/22 06:02 Lymph % (Auto) 29.3 % 12/03/22 06:02 [place] % (Auto) 12.6 % 12/03/22 06:02 Eos % (Auto) 1.5 % 12/03/22 06:02 Baso % (Auto) 0.2 % 12/03/22 06:02 Neut # (Auto) 4.75 10^3/uL (1.8-7.7) 12/03/22 06:02 Lymph # (Auto) 2.5 10^3/uL (0.8-4.8) 12/03/22 06:02 [place] # (Auto) 1.1 10^3/uL (0.2-0.9) H 12/03/22 06:02 Eos # (Auto) 0.1 10^3/uL (0.0-0.8) 12/03/22 06:02 Baso # (Auto) 0.0 10^3/uL (0.0-0.1) 12/03/22 06:02 Nucleated RBC % (auto) 0 % 12/03/22 06:02 Nucleated RBCs # 0.0 /100WBC 12/03/22 06:02 Sodium 129 mmol/L (136-145) L 12/03/22 06:02 Potassium 3.3 mmol/L (3.5-5.1) L 12/03/22 06:02 Chloride 94 mmol/L (98-107) L 12/03/22 06:02 Carbon Dioxide 24 mmol/L (22-29) 12/03/22 06:02 Anion Gap 14.3 (5-19) 12/03/22 06:02 BUN 20 mg/dL (6-20) 12/03/22 06:02 Creatinine 1.4 mg/dL (0.5-0.9) H 12/03/22 06:02 GFR Calculation 39.2 mL/min (90-130) L 12/03/22 06:02 Glucose 89 mg/dL (65-115) 12/03/22 06:02 Calculated Osmolality 270 mOsm/kg (285-295) L 12/03/22 06:02 Calcium 8.6 mg/dL (8.5-10.5) 12/03/22 06:02 Phosphorus 2.7 mg/dL (2.5-4.5) 12/03/22 06:02 Magnesium 2.0 mg/dL (1.7-2.3) 12/03/22 06:02 Total Bilirubin 0.5 mg/dL (0.15-1.2) 12/02/22 12:50 AST 105 U/L (0-32) H 12/02/22 12:50 ALT 37 U/L (0-33) H 12/02/22 12:50 Alkaline Phosphatase 115 U/L (35-105) H 12/02/22 12:50 Troponin T Gen 5 ng/L 37 ng/L (0-10) H 12/01/22 23:17 Troponin T 120 Minute 39.58 ng/L (0-10) H 12/02/22 01:05 Delta Troponin T 2.58 ABS# (0-10) 12/02/22 01:05 Troponin T Hi Sens 6Hr 30.19 ng/L (0-10) H 12/02/22 06:10 Troponin T Hi Sens 6Hr Delta -6.81 ng/L (0-12) L 12/02/22 06:10 Total Protein 7.2 g/dL (6.6-8.7) D 12/02/22 12:50 Albumin 4.3 g/dL (3.5-5.2) 12/02/22 12:50 Globulin 2.9 g/dL (1.3-4.6) 12/02/22 12:50 Lipase 28 U/L (13-60) 12/01/22 23:17 Procalcitonin 0.18 ng/mL (0-0.5) 12/02/22 06:10 TSH 1.30 uIU/mL (0.27-4.20) 12/02/22 06:10 HCG, Qual Negative (Negative) 12/01/22 23:17 Urine Color Yellow (Yellow) 12/02/22 04:10 Urine Appearance Hazy (CLEAR) A 12/02/22 04:10 Urine pH 8 (5-7) H 12/02/22 04:10 Ur Specific [place]andrew[place] 1.010 (1.005-1.030) 12/02/22 04:10 Urine Protein 3+ (Negative) H 12/02/22 04:10 Urine Glucose (UA) Norm (Normal) 12/02/22 04:10 Urine Ketones 1+ (Negative) H 12/02/22 04:10 Urine Blood 3+ (Negative) H 12/02/22 04:10 Urine Nitrate Negative (Negative) 12/02/22 04:10 Urine Bilirubin Neg (Negative) 12/02/22 04:10 Prot Sulfosalicylic Acd Positive (Negative) 12/02/22 04:10 Urine Urobilinogen Norm mg/dL (Negative) 12/02/22 04:10 Ur Leukocyte Esterase Negative (Negative) 12/02/22 04:10 Urine RBC 5-10 /hpf (0-2) H 12/02/22 04:10 Urine WBC 0-4 /hpf (0-5) H 12/02/22 04:10 Ur Squamous Epith Cells 0-4 /hpf (0-5) H 12/02/22 04:10 Amorphous Sediment Not Reportable 12/02/22 04:10 Urine Bacteria 1+ /hpf (NONE) H 12/02/22 04:10 Urine Mucus 1+ /hpf 12/02/22 04:10 Ur Random Sodium 33 mmol/L 12/02/22 04:10 Vitals Last Vital Signs Temp 98.2 F 12/03/22 08:00 Pulse 67 12/03/22 08:12 Resp 16 12/03/22 08:17 BP 125/76 12/03/22 08:12 Pulse Ox 94 12/03/22 08:00 O2 Del Method 12/03/22 08:00 Discharge Plan Discharge Patient Disposition: Home Condition: Stable Prescriptions: New folic acid 1 mg Tablet 1 mg PO DAILY 30 Days Qty: 30 0RF metoprolol tartrate 25 mg Tablet 25 mg PO BID 30 Days Qty: 60 0RF thiamine mononitrate (vit B1) [Vitamin B-1 (mononitrate)] 100 mg Tablet 100 mg PO DAILY 30 Days Qty: 30 0RF cefdinir 300 mg capsule 300 mg PO BID 2 Days Qty: 4 0RF Continued pimecrolimus [Elidel] 1 % cream 1 applic topical BID Qty: 60 1RF Rx Instructions: Apply to affected area on eyelids twice daily hydrocortisone 2.5 % ointment 1 applic topical BID Qty: 28.35 2RF Rx Instructions: Apply twice daily to affected area Cymbalta 60 mg capsule,delayed release(DR/EC) 60 mg PO BID Qty: 60 0RF baclofen 20 mg Tablet 20 mg PO TID PRN (Reason: Muscle Spasm) albuterol sulfate [Ventolin HFA] 90 mcg/actuation Hfa Aerosol Inhaler 1 - 2 puff INHALATION QID PRN (Reason: Shortness Of Breath) pantoprazole 40 mg tablet,delayed release (DR/EC) 40 mg PO BID ascorbic acid (vitamin C) [Vitamin C] 500 mg Tablet 500 mg PO QAM Skyrizi 150 mg/mL pen injector 150 mg SUBCUT .EVERY 12 WEEKS alum-mag hydroxide-simeth [Maalox Maximum Strength] 400-400-40 mg/5 mL suspension 2.5 ml PO Q3H PRN (Reason: indigestion) Qty: 3000 0RF promethazine 25 mg tablet 25 mg PO Q6H PRN (Reason: Nausea) amlodipine 10 mg tablet 10 mg PO QAM aspirin 81 mg tablet,delayed release (DR/EC) 81 mg PO QAM clobetasol 0.05 % solution See Rx Instructions .ROUTE .COMPLEX Rx Instructions: Apply a few drops to itchy areas on scalp as needed pregabalin 75 mg capsule 75 mg PO BID Women's Multivitamin 18 mg iron-400 mcg-500 mg Tablet 1 tab PO DAILY Discontinued metoprolol tartrate 37.5 mg tablet 37.5 mg PO BID Discharge Orders: Discharge Order (Routine); Ordered 12/03/22 Ordered By: Umberto Kulkarni Referrals: Bucky Rogers MD [Primary Care Provider] - 1-3 days Discharge Diet: Cardiac Discharge Activity: Resume usual activity Patient Instructions: Opioid Safety Activity Restrictions/Additional Instructions: - Please abstain from marijuana use -Please hydrate well Discharge Attestations Time Spent in Discharge Care*: greater than 30 min Status at Discharge: Cognitive status at discharge: cognitively intact, Behavioral status at discharge: cooperative, Quality Metrics Clinical Quality Measures [ No reported AMI, CVA or VTE this stay] Coding Level of Care Code 40621 Total time (in minutes) for Discharge: 40 Diagnoses Hyponatremia E87.1 LEVY (acute kidney injury) N17.9
[2022-12-03] MEDS: metoprolol tartrate 25 mg Tablet PO (11:50)
[2022-12-03 15:15] LABS: Osmolality Urine 318 mOsm/kg (50-1200)
[2022-12-04 14:44] LABS: Osmolality Serum 279 mOsm/kg (278-305)
== END 2022-12-03 12:47 | disposition home or self-care (01) | DRG 683 ==
LOC: ER 12-02 00:40 → ICU 12-02 04:19 → MEDSURG 12-02 10:05 → CSU 12-02 10:05 → ICU 12-02 16:02 → MEDSURG 12-02 16:15
PROVIDERS: Admitting Provider Internal Medicine; Emergency Provider Nurse Practitioner Family; PCP Family Medicine; Visit Provider Family Medicine
DX: N17.9 Acute kidney failure, unspecified (principal); E87.1 Hypo-osmolality and hyponatremia; E87.3 Alkalosis; Z86.73 Personal history of transient ischemic attack (TIA), and cerebral infarction without residual deficits; F12.288 Cannabis dependence with other cannabis-induced disorder; R11.15 Cyclical vomiting syndrome unrelated to migraine; E86.0 Dehydration; Z79.51 Long term (current) use of inhaled steroids; Z79.82 Long term (current) use of aspirin; I10 Essential (primary) hypertension; F32.4 Major depressive disorder, single episode, in partial remission; F43.12 Post-traumatic stress disorder, chronic; L40.50 Arthropathic psoriasis, unspecified; F17.210 Nicotine dependence, cigarettes, uncomplicated; E87.6 Hypokalemia; F10.10 Alcohol abuse, uncomplicated
CPT/HCPCS: 12345; 36415; 51702; 74176; 80048; 80053; 81001; 83690; 83735; 83930; 83935; 84100; 84145; 84300; 84443; 84484; 84703; 85025; 87040; 93005; 96365; 96366; 96372; 96375; 97161; 99285; J0360; J0696; J1170; J1200; J1630; J1644; J2270; J2405; J2550; J3480; J3490; J7030; J7131; Q3014

== ENCOUNTER → 2022-12-11 09:26 | Outpatient (BNVA) | payer MEDICARE, MEDICAID, SELFPAY | PROVIDERS: PCP Family Medicine; Referring Provider Nurse Practitioner Family; Visit Provider Physician Assistant | DX: M54.50 Low back pain, unspecified (principal) | CPT/HCPCS: 72110 ==

== ENCOUNTER 2022-12-11 10:10 | Outpatient (CLI) | payer MEDICARE, MEDICAID, SELFPAY ==
[2022-12-11 11:42] LABS: Hepatitis B Surface AB 229.4 (11.5-1000); Hepatitis B Surface Antigen Non-Reactive (Nonreactive)
[2022-12-11 12:08] LABS: Hepatitis B Core AB, Total Reactive (Nonreactive)
== END 2022-12-11 10:11 | disposition home or self-care (01) ==
LOC: LAB 10:12
PROVIDERS: PCP Family Medicine; Visit Provider Dermatology
DX: L40.0 Psoriasis vulgaris (principal); R76.8 Other specified abnormal immunological findings in serum; Z79.899 Other long term (current) drug therapy
CPT/HCPCS: 36415; 86705; 86706; 87340; 99203

== ENCOUNTER → 2022-12-13 08:52 | Outpatient (BNVA) | payer MEDICARE, MEDICAID, SELFPAY | PROVIDERS: PCP Family Medicine; Visit Provider Nurse Practitioner Family | DX: M67.911 Unspecified disorder of synovium and tendon, right shoulder (principal) | CPT/HCPCS: 20610; 99214; J1100; J2795; J3301 ==

== ENCOUNTER 2022-12-24 15:17 | Emergency (ER) | payer MEDICARE, MEDICAID, SELFPAY ==
[2022-12-24 15:23] VITALS: BP 205/125; PULSE 85; RESP 22; TEMP 36.3; O2SAT 100; BMI 25.8
--- NOTE | 2022-12-24 15:38 | XRR_ITS ---
PROCEDURE INFORMATION: Exam: XR Chest Exam date and time: 12/24/2022 4:12 PM Age: 52 years old Clinical indication: Shortness of breath; Additional info: SOB TECHNIQUE: Imaging protocol: Radiologic exam of the chest. Views: 1 view. COMPARISON: CT lung screening [id number] 07/09/2022 12:48 PM FINDINGS: Lungs: Unremarkable. No consolidation. Pleural spaces: Unremarkable. No pleural effusion. No pneumothorax. Heart/Mediastinum: Unremarkable. No cardiomegaly. Bones/joints: Unremarkable. Organs: Absent gallbladder. XR/XR chest 1V portable [id number] IMPRESSION: No acute findings.
[2022-12-24 16:57] LABS: Basophils # 0.1 10^3/uL (0.0-0.1); Basophils % 0.3 %; Eosinophils % 0.1 %; Hematocrit 39.6 % (37.0-47.0); Hemoglobin 13.5 g/dL (11.5-15.3); Lymphocytes # 1.1 10^3/uL (0.8-4.8); Lymphocytes % 6.4 %; Mean Corpuscular HGB Conc 34.1 g/dL (30.0-36.0); Mean Corpuscular Hemoglobin 30.8 pg (28.0-34.0); Mean Corpuscular Volume 90.2 fl (81-99); Mean Platelet Volume 9.2 fL (7.4-10.4); Monocytes # 0.9 10^3/uL (0.2-0.9); Neutrophils # 14.88 10^3/uL (1.8-7.7); Neutrophils % 87.4 %; Nucleated Red Blood Cells % 0 %; Platelet Count 439 10^3/cmm (130-400); Red Blood Count 4.39 10^6/uL (4.1-5.3); Red Cell Distribution Width 15.4 % (12.1-15.1)
--- NOTE | 2022-12-24 17:09 | XRR_ITS ---
PROCEDURE INFORMATION: Exam: XR Abdomen Exam date and time: 12/24/2022 5:18 PM Age: 52 years old Clinical indication: Vomiting; Prior surgery; Surgery date: 6+ months; Surgery type: Back pelvis; Additional info: Abd pain, vomiting TECHNIQUE: Imaging protocol: Radiologic exam of the abdomen. Views: Frontal supine view of the abdomen. 1 View. COMPARISON: CT abdomen pelvis con [id number] 12/02/2022 12:56 AM FINDINGS: Gastrointestinal tract: Normal. No bowel dilation. Bones/joints: Surgical hardware seen bridging the bilateral sacroiliac joints as well as in the bilateral superior pubic rami. XR/XR KUB portable [id number] IMPRESSION: 1. Negative for bowel dilation to indicate obstruction. 2. Surgical hardware seen bridging the bilateral sacroiliac joints as well as in the bilateral superior pubic rami.
[2022-12-24] MEDS: ondansetron 2 mg/ML SDV 2 mL 4 MG IVP (17:12)
[2022-12-24] MEDS: morphine 4 mg/mL SDV 1 mL 2 MG IVP (17:13)
[2022-12-24] MEDS: haloperidol inj 5 mg/mL INJ 1 mL IVP (17:13)
[2022-12-24 17:39] LABS: Alanine Aminotransferase 10 U/L (0-33); Albumin Level 4.7 g/dL (3.5-5.2); Alkaline Phosphatase 130 U/L (35-105); Anion Gap 19.3 (5-19); Aspartate Amino Transferase 14 U/L (0-32); Blood Urea Nitrogen 14 mg/dL (6-20); Calcium 9.5 mg/dL (8.5-10.5); Carbon Dioxide 20 mmol/L (22-29); Chloride 99 mmol/L (98-107); Globulin 3.4 g/dL (1.3-4.6); Glomerular Filtration Rate 87.2 mL/min (90-130); Glucose 133 mg/dL (65-115); Lipase 25 U/L (13-60); Osmolality Calculated 282 mOsm/kg (285-295); Potassium 3.3 mmol/L (3.5-5.1); Sodium 135 mmol/L (136-145); Total Bilirubin 0.5 mg/dL (0.15-1.2); Total Protein 8.1 g/dL (6.6-8.7)
--- NOTE | 2022-12-24 17:48 | W.ED.NAVMDI ---
Documented by User: Bobo Mcdonald DO 12/24/22 22:31 HPI - Nausea/Vomiting/Diarrhea General: Chief complaint: Nausea/Vomiting/Diarrhea Stated complaint: n/v/d Time Seen by Provider: 12/24/22 16:35 Source: patient and family History of Present Illness: 52-year-old female well-known to the emergency department. She has a history of chronic abdominal pain and problems with recurrent intractable nausea and vomiting, possibly related to marijuana. She presents with multiple episodes of vomiting today. She complains of severe abdominal pain. She has had some diarrhea as well. No blood in the stool. No fever. MD elicited complaint: nausea, vomiting, diarrhea and abdominal pain Pertinent past history: other Onset (ago): hour(s) Description of vomiting: watery Associated nausea: Yes Associated abdominal pain: Yes Location of pain: Diffuse Radiation: diffuse Pain consistency: constant Severity: severe Quality: stabbing and aching Relieving factors: none Associated symtoms: Reports anxiety and nausea; Denies altered mental status, chest pain, cough, fecal incontinence or fevers/chills Review of Systems Const: Denies: fever(s) or chills Card: Denies: chest pain Resp: Denies: dyspnea, productive cough or non-productive cough GI: Reports: abdominal pain, nausea and vomiting; Denies: fecal incontinence Psych: Reports: anxiety PFSH ED PFSH: Medical History Abdominal pain Abdominal pain Acute kidney injury Alcohol withdrawal Anxiety Cannabinoid hyperemesis syndrome Cannabis dependence, uncomplicated CVA (cerebral vascular accident) Cyclical vomiting Dehydration Elevated troponin FH: cholecystectomy GI bleed High risk medication use Hyperemesis Hypertension Hypertensive urgency Intractable nausea and vomiting Leukocytosis Major depressive disorder, recurrent, in partial remission Memory loss Nausea & vomiting Nausea and vomiting Plaque psoriasis Post-traumatic stress disorder, chronic Psoriatic arthritis Surgical History History of ankle surgery History of eye surgery History of hysterectomy History of pelvic surgery History of shoulder surgery History of toe surgery Family History Other CAD (coronary artery disease) Cancer Diabetes Hypertension Lung disease Social History Smoking and tobacco status: current some day smoker cigarettes Alcohol intake: current Substance/Drug Use: never Physical Exam Const: EXAM LIMITATIONS: no altered mental status GENERAL APPEARANCE: cooperative and ill appearing (mildly) HENMT: COMMON NORMALS: normocephalic HEAD & SCALP: normocephalic THROAT: posterior oropharynx normal Eye: COMMON NORMALS: Equal, round and reactive pupils present and EOMs intact bilaterally PUPIL: Yes Equal, round and reactive pupils present Neck/C-Spine: GENERAL: Yes trachea midline Chest: CHEST: Yes Symmetrical chest wall rise Resp: COMMON NORMALS: clear to auscultation bilaterally EFFORT & INSPECTION: Yes tachypneic AUSCULTATION: clear to auscultation bilaterally Cardio: COMMON NORMALS: regular rate and regular rhythm RATE: regular rate RHYTHM: regular rhythm GI: PALPATION: Yes Tenderness to palpation present (GI) (diffuse) Extremity: COMMON NORMALS: no pedal edema Neuro: JUANY COMA SCALE: document GCS findings Juany coma scale eye opening: Spontaneous Juany coma scale verbal response: Orientated Alsey coma scale motor response: Obey commands Alsey coma scale total score: 15 Course Vital Signs: Vital signs: Vital Signs Temperature 97.4 F L 12/24/22 15:23 Pulse Rate 86 12/24/22 19:59 Respiratory Rate 16 12/24/22 19:59 Blood Pressure 185/107 12/24/22 19:59 Pulse Oximetry 96 12/24/22 19:59 Oxygen Delivery Me thod Room Air 12/24/22 19:18 MDM - Nausea/Vomiting/Diarrhea Medical Decision Making Patient with a history of multiple episodes of vomiting. She complains of significant abdominal pain. White blood cell count is 17. Potassium is 3.3. Chest x-ray is nonacute. KUB is negative for obstruction. Vomiting improved after medication, but not resolved. Patient presents here with vomiting that is chronic in nature she feels much improved here white count is likely reactive does not require CT scan. She is been able tolerate p.o. she is stable for discharge she is to follow-up with PCP and return if worsening. Lab Data 12/24/22 16:47 12/24/22 16:47 Radiology Impressions Chest X-Ray 12/24/22 15:38 IMPRESSION: No acute findings. KUB X-Ray 12/24/22 17:09 IMPRESSION: 1. Negative for bowel dilation to indicate obstruction. 2. Surgical hardware seen bridging the bilateral sacroiliac joints as well as in the bilateral superior pubic rami. Laboratory Results WBC 17.0 10^3/uL (4.0-10.0) H 12/24/22 16:47 RBC 4.39 10^6/uL (4.1-5.3) 12/24/22 16:47 Hgb 13.5 g/dL (11.5-15.3) 12/24/22 16:47 Hct 39.6 % (37.0-47.0) 12/24/22 16:47 MCV 90.2 fl (81-99) 12/24/22 16:47 MCH 30.8 pg (28.0-34.0) 12/24/22 16:47 MCHC 34.1 g/dL (30.0-36.0) 12/24/22 16:47 RDW 15.4 % (12.1-15.1) H 12/24/22 16:47 Plt Count 439 10^3/cmm (130-400) H 12/24/22 16:47 MPV 9.2 fL (7.4-10.4) 12/24/22 16:47 Neut % (Auto) 87.4 % 12/24/22 16:47 Lymph % (Auto) 6.4 % 12/24/22 16:47 Jerome % (Auto) 5.0 % 12/24/22 16:47 Eos % (Auto) 0.1 % 12/24/22 16:47 Baso % (Auto) 0.3 % 12/24/22 16:47 Neut # (Auto) 14.88 10^3/uL (1.8-7.7) H 12/24/22 16:47 Lymph # (Auto) 1.1 10^3/uL (0.8-4.8) 12/24/22 16:47 Jerome # (Auto) 0.9 10^3/uL (0.2-0.9) 12/24/22 16:47 Eos # (Auto) 0.0 10^3/uL (0.0-0.8) 12/24/22 16:47 Baso # (Auto) 0.1 10^3/uL (0.0-0.1) 12/24/22 16:47 Nucleated RBC % (auto) 0 % 12/24/22 16:47 Nucleated RBCs # 0.0 /100WBC 12/24/22 16:47 Sodium 135 mmol/L (136-145) L 12/24/22 16:47 Potassium 3.3 mmol/L (3.5-5.1) L 12/24/22 16:47 Chloride 99 mmol/L (98-107) 12/24/22 16:47 Carbon Dioxide 20 mmol/L (22-29) L 12/24/22 16:47 Anion Gap 19.3 (5-19) H 12/24/22 16:47 BUN 14 mg/dL (6-20) 12/24/22 16:47 Creatinine 0.7 mg/dL (0.5-0.9) 12/24/22 16:47 GFR Calculation 87.2 mL/min (90-130) L 12/24/22 16:47 Glucose 133 mg/dL (65-115) H 12/24/22 16:47 Calculated Osmolality 282 mOsm/kg (285-295) L 12/24/22 16:47 Calcium 9.5 mg/dL (8.5-10.5) 12/24/22 16:47 Total Bilirubin 0.5 mg/dL (0.15-1.2) 12/24/22 16:47 AST 14 U/L (0-32) 12/24/22 16:47 ALT 10 U/L (0-33) 12/24/22 16:47 Alkaline Phosphatase 130 U/L (35-105) H 12/24/22 16:47 Total Protein 8.1 g/dL (6.6-8.7) 12/24/22 16:47 Albumin 4.7 g/dL (3.5-5.2) 12/24/22 16:47 Globulin 3.4 g/dL (1.3-4.6) 12/24/22 16:47 Lipase 25 U/L (13-60) 12/24/22 16:47 Discharge Plan Discharge Patient Disposition: Home Clinical Impression: Vomiting Condition: Stable Prescriptions: New ondansetron 4 mg tablet,disintegrating 4 mg PO Q6H PRN (Reason: nausea and vomiting) Qty: 14 0RF No Action triamcinolone acetonide [Kenalog] 40 mg/mL suspension 40 mg intra-articular ONCE Qty: 1 0RF dexamethasone sodium phosphate 4 mg/mL solution 4 mg intra-articular ONCE Qty: 1 0RF lidocaine (PF) 10 mg/mL (1 %) solution 10 mg intra-articular ONCE Qty: 1.5 0RF ropivacaine (PF) 5 mg/mL (0.5 %) solution 1.5 ml intra-articular ONCE Qty: 1.5 0RF pimecrolimus [Elidel] 1 % cream 1 applic topical BID Qty: 60 1RF Rx Instructions: Apply to affected area on eyelids twice daily hydrocortisone 2.5 % ointment 1 applic topical BID Qty: 28.35 2RF Rx Instructions: Apply twice daily to affected area Cymbalta 60 mg capsule,delayed release(DR/EC) 60 mg PO BID Qty: 60 0RF baclofen 20 mg Tablet 20 mg PO TID PRN (Reason: Muscle Spasm) albuterol sulfate [Ventolin HFA] 90 mcg/actuation Hfa Aerosol Inhaler 1 - 2 puff INHALATION QID PRN (Reason: Shortness Of Breath) pantoprazole 40 mg tablet,delayed release (DR/EC) 40 mg PO BID ascorbic acid (vitamin C) [Vitamin C] 500 mg Tablet 500 mg PO QAM Skyrizi 150 mg/mL pen injector 150 mg SUBCUT .EVERY 12 WEEKS Hold Instructions: Doctor's Order alum-mag hydroxide-simeth [Maalox Maximum Strength] 400-400-40 mg/5 mL suspension 2.5 ml PO Q3H PRN (Reason: indigestion) Qty: 3000 0RF promethazine 25 mg tablet 25 mg PO Q6H PRN (Reason: Nausea) amlodipine 10 mg tablet 10 mg PO QAM aspirin 81 mg tablet,delayed release (DR/EC) 81 mg PO QAM clobetasol 0.05 % solution See Rx Instructions .ROUTE .COMPLEX Rx Instructions: Apply a few drops to itchy areas on scalp as needed pregabalin 75 mg capsule 75 mg PO BID [id number]-FA-Ca carb-vit K 18 mg iron-400 mcg-500 mg Tablet 1 tab PO DAILY folic acid 1 mg Tablet 1 mg PO DAILY 30 Days Qty: 30 0RF metoprolol tartrate 25 mg Tablet 25 mg PO BID 30 Days Qty: 60 0RF Vitamin B-1 (mononitrate) 100 mg Tablet 100 mg PO DAILY 30 Days Qty: 30 0RF Discharge Orders: Discharge ED (Routine); Ordered 12/24/22 Ordered By: Rianna Schneider Referrals: Bucky Rogers MD [Primary Care Provider] - 1-3 days Discharge Diet: Advance as tolerated Discharge Activity: Resume usual activity Patient Instructions: Acute Nausea and Vomiting (ED) Coding Level of Care Code ED 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 Records Division 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 [employer] Documented by User: Rianna Schneider MD 12/24/22 19:47 HPI - Nausea/Vomiting/Diarrhea General: Chief complaint: Nausea/Vomiting/Diarrhea Stated complaint: n/v/d Time Seen by Provider: 12/24/22 16:35 PFSH ED PFSH: Medical History Abdominal pain Abdominal pain Acute kidney injury Alcohol withdrawal Anxiety Cannabinoid hyperemesis syndrome Cannabis dependence, uncomplicated CVA (cerebral vascular accident) Cyclical vomiting Dehydration Elevated troponin FH: cholecystectomy GI bleed High risk medication use Hyperemesis Hypertension Hypertensive urgency Intractable nausea and vomiting Leukocytosis Major depressive disorder, recurrent, in partial remission Memory loss Nausea & vomiting Nausea and vomiting Plaque psoriasis Post-traumatic stress disorder, chronic Psoriatic arthritis Surgical History History of ankle surgery History of eye surgery History of hysterectomy History of pelvic surgery History of shoulder surgery History of toe surgery Family History Other CAD (coronary artery disease) Cancer Diabetes Hypertension Lung disease Social History Smoking and tobacco status: current some day smoker cigarettes Alcohol intake: current Substance/Drug Use: never Course Vital Signs: Vital signs: Vital Signs Temperature 97.4 F L 12/24/22 15:23 Pulse Rate 86 12/24/22 19:59 Respiratory Rate 16 12/24/22 19:59 Blood Pressure 185/107 12/24/22 19:59 Pulse Oximetry 96 12/24/22 19:59 Oxygen Delivery Me thod Room Air 12/24/22 19:18 MDM - Nausea/Vomiting/Diarrhea Medical Decision Making Patient with a history of multiple episodes of vomiting. She complains of significant abdominal pain. White blood cell count is 17. Potassium is 3.3. Chest x-ray is nonacute. KUB is negative for obstruction. Vomiting improved after medication, but not resolved. Patient presents here with vomiting that is chronic in nature she feels much improved here white count is likely reactive does not require CT scan. She is been able tolerate p.o. she is stable for discharge she is to follow-up with PCP and return if worsening. Lab Data 12/24/22 16:47 12/24/22 16:47 Radiology Impressions Chest X-Ray 12/24/22 15:38 IMPRESSION: No acute findings. KUB X-Ray 12/24/22 17:09 IMPRESSION: 1. Negative for bowel dilation to indicate obstruction. 2. Surgical hardware seen bridging the bilateral sacroiliac joints as well as in the bilateral superior pubic rami. Laboratory Results WBC 17.0 10^3/uL (4.0-10.0) H 12/24/22 16:47 RBC 4.39 10^6/uL (4.1-5.3) 12/24/22 16:47 Hgb 13.5 g/dL (11.5-15.3) 12/24/22 16:47 Hct 39.6 % (37.0-47.0) 12/24/22 16:47 MCV 90.2 fl (81-99) 12/24/22 16:47 MCH 30.8 pg (28.0-34.0) 12/24/22 16:47 MCHC 34.1 g/dL (30.0-36.0) 12/24/22 16:47 RDW 15.4 % (12.1-15.1) H 12/24/22 16:47 Plt Count 439 10^3/cmm (130-400) H 12/24/22 16:47 MPV 9.2 fL (7.4-10.4) 12/24/22 16:47 Neut % (Auto) 87.4 % 12/24/22 16:47 Lymph % (Auto) 6.4 % 12/24/22 16:47 Jerome % (Auto) 5.0 % 12/24/22 16:47 Eos % (Auto) 0.1 % 12/24/22 16:47 Baso % (Auto) 0.3 % 12/24/22 16:47 Neut # (Auto) 14.88 10^3/uL (1.8-7.7) H 12/24/22 16:47 Lymph # (Auto) 1.1 10^3/uL (0.8-4.8) 12/24/22 16:47 Jerome # (Auto) 0.9 10^3/uL (0.2-0.9) 12/24/22 16:47 Eos # (Auto) 0.0 10^3/uL (0.0-0.8) 12/24/22 16:47 Baso # (Auto) 0.1 10^3/uL (0.0-0.1) 12/24/22 16:47 Nucleated RBC % (auto) 0 % 12/24/22 16:47 Nucleated RBCs # 0.0 /100WBC 12/24/22 16:47 Sodium 135 mmol/L (136-145) L 12/24/22 16:47 Potassium 3.3 mmol/L (3.5-5.1) L 12/24/22 16:47 Chloride 99 mmol/L (98-107) 12/24/22 16:47 Carbon Dioxide 20 mmol/L (22-29) L 12/24/22 16:47 Anion Gap 19.3 (5-19) H 12/24/22 16:47 BUN 14 mg/dL (6-20) 12/24/22 16:47 Creatinine 0.7 mg/dL (0.5-0.9) 12/24/22 16:47 GFR Calculation 87.2 mL/min (90-130) L 12/24/22 16:47 Glucose 133 mg/dL (65-115) H 12/24/22 16:47 Calculated Osmolality 282 mOsm/kg (285-295) L 12/24/22 16:47 Calcium 9.5 mg/dL (8.5-10.5) 12/24/22 16:47 Total Bilirubin 0.5 mg/dL (0.15-1.2) 12/24/22 16:47 AST 14 U/L (0-32) 12/24/22 16:47 ALT 10 U/L (0-33) 12/24/22 16:47 Alkaline Phosphatase 130 U/L (35-105) H 12/24/22 16:47 Total Protein 8.1 g/dL (6.6-8.7) 12/24/22 16:47 Albumin 4.7 g/dL (3.5-5.2) 12/24/22 16:47 Globulin 3.4 g/dL (1.3-4.6) 12/24/22 16:47 Lipase 25 U/L (13-60) 12/24/22 16:47 Discharge Plan Discharge Patient Disposition: Home Clinical Impression: Vomiting Condition: Stable Prescriptions: New ondansetron 4 mg tablet,disintegrating 4 mg PO Q6H PRN (Reason: nausea and vomiting) Qty: 14 0RF No Action triamcinolone acetonide [Kenalog] 40 mg/mL suspension 40 mg intra-articular ONCE Qty: 1 0RF dexamethasone sodium phosphate 4 mg/mL solution 4 mg intra-articular ONCE Qty: 1 0RF lidocaine (PF) 10 mg/mL (1 %) solution 10 mg intra-articular ONCE Qty: 1.5 0RF ropivacaine (PF) 5 mg/mL (0.5 %) solution 1.5 ml intra-articular ONCE Qty: 1.5 0RF pimecrolimus [Elidel] 1 % cream 1 applic topical BID Qty: 60 1RF Rx Instructions: Apply to affected area on eyelids twice daily hydrocortisone 2.5 % ointment 1 applic topical BID Qty: 28.35 2RF Rx Instructions: Apply twice daily to affected area Cymbalta 60 mg capsule,delayed release(DR/EC) 60 mg PO BID Qty: 60 0RF baclofen 20 mg Tablet 20 mg PO TID PRN (Reason: Muscle Spasm) albuterol sulfate [Ventolin HFA] 90 mcg/actuation Hfa Aerosol Inhaler 1 - 2 puff INHALATION QID PRN (Reason: Shortness Of Breath) pantoprazole 40 mg tablet,delayed release (DR/EC) 40 mg PO BID ascorbic acid (vitamin C) [Vitamin C] 500 mg Tablet 500 mg PO QAM Skyrizi 150 mg/mL pen injector 150 mg SUBCUT .EVERY 12 WEEKS Hold Instructions: Doctor's Order alum-mag hydroxide-simeth [Maalox Maximum Strength] 400-400-40 mg/5 mL suspension 2.5 ml PO Q3H PRN (Reason: indigestion) Qty: 3000 0RF promethazine 25 mg tablet 25 mg PO Q6H PRN (Reason: Nausea) amlodipine 10 mg tablet 10 mg PO QAM aspirin 81 mg tablet,delayed release (DR/EC) 81 mg PO QAM clobetasol 0.05 % solution See Rx Instructions .ROUTE .COMPLEX Rx Instructions: Apply a few drops to itchy areas on scalp as needed pregabalin 75 mg capsule 75 mg PO BID nh-ql-[id number]-FA-Ca carb-vit K 18 mg iron-400 mcg-500 mg Tablet 1 tab PO DAILY folic acid 1 mg Tablet 1 mg PO DAILY 30 Days Qty: 30 0RF metoprolol tartrate 25 mg Tablet 25 mg PO BID 30 Days Qty: 60 0RF Vitamin B-1 (mononitrate) 100 mg Tablet 100 mg PO DAILY 30 Days Qty: 30 0RF Discharge Orders: Discharge ED (Routine); Ordered 12/24/22 Ordered By: Rianna Schneider Referrals: Bucky Rogers MD [Primary Care Provider] - 1-3 days Discharge Diet: Advance as tolerated Discharge Activity: Resume usual activity Patient Instructions: Acute Nausea and Vomiting (ED) Coding Level of Care Code ED Supervisor Customer Records Division for 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
[2022-12-24] MEDS: LORazepam 2 mg/mL INJ 1 mL IVP (18:38)
[2022-12-24] MEDS: sodium chloride 0.9% 1,000 ML 999 ML IV (18:39)
[2022-12-24 19:18] VITALS: PULSE 86; O2SAT 95
[2022-12-24 19:59] VITALS: BP 185/107; PULSE 86; RESP 16; O2SAT 96
== END 2022-12-24 20:00 | disposition home or self-care (01) ==
PROVIDERS: Emergency Medicine; Emergency Provider Emergency Medicine; PCP Family Medicine
DX: R11.11 Vomiting without nausea (principal); Z79.82 Long term (current) use of aspirin; F17.210 Nicotine dependence, cigarettes, uncomplicated; Z86.73 Personal history of transient ischemic attack (TIA), and cerebral infarction without residual deficits; I10 Essential (primary) hypertension
CPT/HCPCS: 71045; 74018; 80053; 83690; 85025; 96374; 96375; 99284; J1630; J2060; J2270; J2405; J7030

== ENCOUNTER 2022-12-26 04:12 | Emergency (ER) | payer MEDICARE, MEDICAID, SELFPAY ==
[2022-12-26] VITALS (8 sets, daily range): BP systolic 140–207; BP diastolic 97–127; PULSE 99–115; RESP 16–24; TEMP 36.7; O2SAT 91–100; BMI 25.8
--- NOTE | 2022-12-26 04:23 | W.ED.NAVMDI ---
HPI - Nausea/Vomiting/Diarrhea General: Chief complaint: Nausea/Vomiting/Diarrhea Stated complaint: N/V Time Seen by Provider: 12/26/22 04:14 Source: patient and EMS Mode of arrival: EMS Limitations: no limitations History of Present Illness: 52-year-old female is very well-known to the ER has a long history of cyclical vomiting syndrome from marijuana abuse she states it started vomiting tonight at 11 she had more than 10 episodes of vomiting with severe nausea she had abdominal cramping denies any diarrhea she denies any worsening improving factors at this time. Associated nausea: Yes Associated symtoms: Reports nausea; Denies chest pain, dysuria or headache(s) Review of Systems Const: Denies: fever(s), chills, body aches or change in appetite Eyes: Denies: eye discomfort ENMT: Denies: throat pain or dental pain Card: Denies: chest pain Resp: Denies: dyspnea GI: Reports: abdominal pain, nausea and vomiting : Denies: dysuria Musc: Denies: neck pain or back pain Skin/Breast: Denies: rash Neuro: Denies: headache(s) PFSH ED PFSH: Medical History Abdominal pain Abdominal pain Acute kidney injury Alcohol withdrawal Anxiety Cannabinoid hyperemesis syndrome Cannabis dependence, uncomplicated CVA (cerebral vascular accident) Cyclical vomiting Dehydration Elevated troponin FH: cholecystectomy GI bleed High risk medication use Hyperemesis Hypertension Hypertensive urgency Intractable nausea and vomiting Leukocytosis Major depressive disorder, recurrent, in partial remission Memory loss Nausea & vomiting Nausea and vomiting Plaque psoriasis Post-traumatic stress disorder, chronic Psoriatic arthritis Surgical History History of ankle surgery History of eye surgery History of hysterectomy History of pelvic surgery History of shoulder surgery History of toe surgery Family History Other CAD (coronary artery disease) Cancer Diabetes Hypertension Lung disease Social History Smoking and tobacco status: current some day smoker cigarettes Alcohol intake: current Substance/Drug Use: never Physical Exam Const: COMMON NORMALS: no acute distress, patient oriented x3 and healthy appearing HENMT: COMMON NORMALS: normocephalic and atraumatic HEAD & SCALP: normocephalic and atraumatic Eye: COMMON NORMALS: conjunctivae normal CONJUNCTIVA: Yes conjunctivae normal Neck/C-Spine: COMMON NORMALS: full ROM and supple Chest: COMMONS NORMALS: normal inspection of the chest and normal palpation of entire chest wall Resp: COMMON NORMALS: normal respiratory effort, No retractions, No use of accessory muscles and clear to auscultation bilaterally AUSCULTATION: clear to auscultation bilaterally Cardio: COMMON NORMALS: regular rate, regular rhythm and No murmurs present (Cardio) RATE: regular rate RHYTHM: regular rhythm GI: COMMON NORMALS: Normal to inspection, nondistended, normoactive bowel sounds present, Soft to palpation, non-tender and no masses PALPATION: Yes Soft to palpation Extremity: COMMON NORMALS: normal to inspection and full ROM Neuro: COMMON NORMALS: patient oriented x3, moves all extremities and no focal motor deficits Psych: COMMON NORMALS: mental status grossly normal, Normal thought process present and cooperative THOUGHT PROCESS: Normal thought process present Skin: COMMON NORMALS: no rashes or lesions noted and no wounds GENERAL SKIN EXAM: no rashes or lesions noted Course Vital Signs: Vital signs: Vital Signs Temperature 98.1 F 12/26/22 04:13 Pulse Rate 101 H 12/26/22 05:51 Respiratory Rate 16 12/26/22 05:59 Blood Pressure 157/112 12/26/22 05:51 Pulse Oximetry 92 12/26/22 06:00 Oxygen Delivery Me thod Room Air 12/26/22 06:00 MDM - Nausea/Vomiting/Diarrhea Medical Decision Making Patient presents here with nausea vomiting with history of cyclical vomiting syndrome she feels improved here after meds was able to tolerate p.o. she does have some hypokalemia did give her potassium here she is able to tolerate that we will prescribe her potassium along with Reglan for home she is to follow-up with her PCP and return if worsening she understands agrees to plan. Lab Data 12/26/22 04:35 12/26/22 04:35 Laboratory Results WBC 16.1 10^3/uL (4.0-10.0) H 12/26/22 04:35 RBC 4.50 10^6/uL (4.1-5.3) 12/26/22 04:35 Hgb 13.7 g/dL (11.5-15.3) 12/26/22 04:35 Hct 40.5 % (37.0-47.0) 12/26/22 04:35 MCV 90.0 fl (81-99) 12/26/22 04:35 MCH 30.4 pg (28.0-34.0) 12/26/22 04:35 MCHC 33.8 g/dL (30.0-36.0) 12/26/22 04:35 RDW 15.4 % (12.1-15.1) H 12/26/22 04:35 Plt Count 442 10^3/cmm (130-400) H 12/26/22 04:35 MPV 9.5 fL (7.4-10.4) 12/26/22 04:35 Neut % (Auto) 77.8 % 12/26/22 04:35 Lymph % (Auto) 12.2 % 12/26/22 04:35 Frontier % (Auto) 9.1 % 12/26/22 04:35 Eos % (Auto) 0.2 % 12/26/22 04:35 Baso % (Auto) 0.2 % 12/26/22 04:35 Neut # (Auto) 12.50 10^3/uL (1.8-7.7) H 12/26/22 04:35 Lymph # (Auto) 2.0 10^3/uL (0.8-4.8) 12/26/22 04:35 Frontier # (Auto) 1.5 10^3/uL (0.2-0.9) H 12/26/22 04:35 Eos # (Auto) 0.0 10^3/uL (0.0-0.8) 12/26/22 04:35 Baso # (Auto) 0.0 10^3/uL (0.0-0.1) 12/26/22 04:35 Nucleated RBC % (auto) 0 % 12/26/22 04:35 Nucleated RBCs # 0.0 /100WBC 12/26/22 04:35 Sodium 135 mmol/L (136-145) L 12/26/22 04:35 Potassium 2.8 mmol/L (3.5-5.1) L* 12/26/22 04:35 Chloride 93 mmol/L (98-107) L 12/26/22 04:35 Carbon Dioxide 24 mmol/L (22-29) 12/26/22 04:35 Anion Gap 20.8 (5-19) H 12/26/22 04:35 BUN 9 mg/dL (6-20) 12/26/22 04:35 Creatinine 1.0 mg/dL (0.5-0.9) H 12/26/22 04:35 GFR Calculation 57.8 mL/min (90-130) L 12/26/22 04:35 Glucose 149 mg/dL (65-115) H 12/26/22 04:35 Calculated Osmolality 281 mOsm/kg (285-295) L 12/26/22 04:35 Calcium 9.8 mg/dL (8.5-10.5) 12/26/22 04:35 Magnesium 1.9 mg/dL (1.7-2.3) 12/26/22 04:23 Total Bilirubin 0.4 mg/dL (0.15-1.2) 12/26/22 04:35 AST 18 U/L (0-32) 12/26/22 04:35 ALT 12 U/L (0-33) 12/26/22 04:35 Alkaline Phosphatase 118 U/L (35-105) H 12/26/22 04:35 Total Protein 7.9 g/dL (6.6-8.7) 12/26/22 04:35 Albumin 4.6 g/dL (3.5-5.2) 12/26/22 04:35 Globulin 3.3 g/dL (1.3-4.6) 12/26/22 04:35 Lipase 32 U/L (13-60) 12/26/22 04:35 Discharge Plan Discharge Patient Disposition: Home Clinical Impression: Vomiting, Hypokalemia Condition: Stable Prescriptions: New Reglan 10 mg tablet 10 mg PO Q6H PRN (Reason: nausea and vomiting) Qty: 20 0RF potassium chloride 40 mEq/15 mL liquid 40 meq PO BID 5 Days Qty: 150 0RF No Action triamcinolone acetonide [Kenalog] 40 mg/mL suspension 40 mg intra-articular ONCE Qty: 1 0RF dexamethasone sodium phosphate 4 mg/mL solution 4 mg intra-articular ONCE Qty: 1 0RF lidocaine (PF) 10 mg/mL (1 %) solution 10 mg intra-articular ONCE Qty: 1.5 0RF ropivacaine (PF) 5 mg/mL (0.5 %) solution 1.5 ml intra-articular ONCE Qty: 1.5 0RF pimecrolimus [Elidel] 1 % cream 1 applic topical BID Qty: 60 1RF Rx Instructions: Apply to affected area on eyelids twice daily hydrocortisone 2.5 % ointment 1 applic topical BID Qty: 28.35 2RF Rx Instructions: Apply twice daily to affected area Cymbalta 60 mg capsule,delayed release(DR/EC) 60 mg PO BID Qty: 60 0RF baclofen 20 mg Tablet 20 mg PO TID PRN (Reason: Muscle Spasm) albuterol sulfate [Ventolin HFA] 90 mcg/actuation Hfa Aerosol Inhaler 1 - 2 puff INHALATION QID PRN (Reason: Shortness Of Breath) pantoprazole 40 mg tablet,delayed release (DR/EC) 40 mg PO BID ascorbic acid (vitamin C) [Vitamin C] 500 mg Tablet 500 mg PO QAM Skyrizi 150 mg/mL pen injector 150 mg SUBCUT .EVERY 12 WEEKS Hold Instructions: Doctor's Order alum-mag hydroxide-simeth [Maalox Maximum Strength] 400-400-40 mg/5 mL suspension 2.5 ml PO Q3H PRN (Reason: indigestion) Qty: 3000 0RF promethazine 25 mg tablet 25 mg PO Q6H PRN (Reason: Nausea) amlodipine 10 mg tablet 10 mg PO QAM aspirin 81 mg tablet,delayed release (DR/EC) 81 mg PO QAM clobetasol 0.05 % solution See Rx Instructions .ROUTE .COMPLEX Rx Instructions: Apply a few drops to itchy areas on scalp as needed pregabalin 75 mg capsule 75 mg PO BID [id number]-[id number]-FA-Ca carb-vit K 18 mg iron-400 mcg-500 mg Tablet 1 tab PO DAILY folic acid 1 mg Tablet 1 mg PO DAILY 30 Days Qty: 30 0RF metoprolol tartrate 25 mg Tablet 25 mg PO BID 30 Days Qty: 60 0RF Vitamin B-1 (mononitrate) 100 mg Tablet 100 mg PO DAILY 30 Days Qty: 30 0RF ondansetron 4 mg tablet,disintegrating 4 mg PO Q6H PRN (Reason: nausea and vomiting) Qty: 14 0RF Discharge Orders: Discharge ED (Routine); Ordered 12/26/22 Ordered By: Rianna Schneider Referrals: Bucky Rogers MD [Primary Care Provider] - 1-3 days Discharge Diet: Advance as tolerated Discharge Activity: Resume usual activity Patient Instructions: Hypokalemia (ED), Acute Nausea and Vomiting (ED) Coding Level of Care Code ED Project Scheduler for 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
[2022-12-26] MEDS: sodium chloride 0.9% 1,000 ML 999 ML IV (04:26)
[2022-12-26] MEDS: haloperidol inj 5 mg/mL INJ 1 mL IVP (04:27)
[2022-12-26] MEDS: LORazepam 2 mg/mL INJ 1 mL IVP (04:27)
[2022-12-26 04:39] LABS: Basophils % 0.2 %; Eosinophils % 0.2 %; Hematocrit 40.5 % (37.0-47.0); Hemoglobin 13.7 g/dL (11.5-15.3); Lymphocytes % 12.2 %; Mean Corpuscular HGB Conc 33.8 g/dL (30.0-36.0); Mean Corpuscular Hemoglobin 30.4 pg (28.0-34.0); Mean Platelet Volume 9.5 fL (7.4-10.4); Monocytes # 1.5 10^3/uL (0.2-0.9); Monocytes % 9.1 %; Neutrophils % 77.8 %; Nucleated Red Blood Cells % 0 %; Platelet Count 442 10^3/cmm (130-400); Red Cell Distribution Width 15.4 % (12.1-15.1); White Blood Count 16.1 10^3/uL (4.0-10.0)
[2022-12-26 04:56] LABS: Alanine Aminotransferase 12 U/L (0-33); Albumin Level 4.6 g/dL (3.5-5.2); Alkaline Phosphatase 118 U/L (35-105); Anion Gap 20.8 (5-19); Aspartate Amino Transferase 18 U/L (0-32); Blood Urea Nitrogen 9 mg/dL (6-20); Calcium 9.8 mg/dL (8.5-10.5); Carbon Dioxide 24 mmol/L (22-29); Chloride 93 mmol/L (98-107); Globulin 3.3 g/dL (1.3-4.6); Glomerular Filtration Rate 57.8 mL/min (90-130); Glucose 149 mg/dL (65-115); Lipase 32 U/L (13-60); Osmolality Calculated 281 mOsm/kg (285-295); Sodium 135 mmol/L (136-145); Total Bilirubin 0.4 mg/dL (0.15-1.2); Total Protein 7.9 g/dL (6.6-8.7)
[2022-12-26 04:59] LABS: Potassium 2.8 mmol/L (3.5-5.1)
[2022-12-26] MEDS: diphenhydrAMINE 50 mg/mL SDV 1mL IVP (05:12)
[2022-12-26] MEDS: metoclopramide 5 mg/mL SDV 2 mL 10 MG IVP (05:12)
[2022-12-26] MEDS: potassium chloride ER 20 mEq Tablet 40 MEQ PO (05:13)
[2022-12-26] MEDS: labetalol 5 mg/mL SDV 20mL 10 MG IVP (05:25)
[2022-12-26 05:26] LABS: Magnesium 1.9 mg/dL (1.7-2.3)
[2022-12-26] MEDS: morphine 4 mg/mL SDV 1 mL IM (05:59)
== END 2022-12-26 09:18 | disposition home or self-care (01) ==
PROVIDERS: Emergency Provider Emergency Medicine; PCP Family Medicine
DX: R11.11 Vomiting without nausea (principal); E87.6 Hypokalemia; Z79.82 Long term (current) use of aspirin; F17.210 Nicotine dependence, cigarettes, uncomplicated; Z86.73 Personal history of transient ischemic attack (TIA), and cerebral infarction without residual deficits; I10 Essential (primary) hypertension
CPT/HCPCS: 80053; 83690; 83735; 85025; 96361; 96372; 96374; 96375; 99284; J1200; J1630; J2060; J2270; J2765; J3490; J7030

== ENCOUNTER 2023-01-01 18:31 | Emergency (ER) | payer MEDICARE, MEDICAID, SELFPAY ==
[2023-01-01 18:45] VITALS: BP 114/74; PULSE 78; RESP 16; TEMP 36.6; O2SAT 97; BMI 25.8
--- NOTE | 2023-01-01 18:55 | XRR_ITS ---
PROCEDURE INFORMATION: Exam: XR Right Knee Exam date and time: 01/01/2023 7:11 PM Age: 52 years old Clinical indication: Injury or trauma; Fall; Blunt trauma; Right; Prior surgery; Surgery date: 6+ months; Surgery type: RT knee; Additional info: Fall and twist injury to knee TECHNIQUE: Imaging protocol: Radiologic exam of the right knee. Views: 3 views. COMPARISON: CR (LOW EXM, ) 08/10/2022 6:42 PM FINDINGS: Bones/joints: Osseous structures are intact. Negative for fracture. Sequela of prior ACL reconstruction. Moderate tricompartmental DJD of the knee. Soft tissues: Normal. XR/XR knee RT 3V* [id number] IMPRESSION: No acute findings.
--- NOTE | 2023-01-01 18:56 | W.ED.FALL ---
HPI - Fall General: Chief Complaint: Fall Stated Complaint: fall, knee pain Time Seen by Provider: 01/01/23 18:39 History of Present Illness: Patient is a 52-year-old female comes to the ED with right knee pain. Patient injured right knee just prior to arrival. Patient says she was at the laundromat and tripped on a step causing her to fall down and twisted her right knee. She says her right knee did hit the floor. She rates her pain currently 9 out of 10 and its located on the lateral aspect of the right knee. Any weightbearing or range of motion causes worsening pain. She has not had anything for pain before coming to the ED. Associated symptoms-after fall: Denies abdominal pain, chest pain, headache(s), hematuria or neck pain Review of Systems Const: Denies: fever(s), chills or fatigue Eyes: Denies: change in vision or eye discomfort ENMT: Denies: throat pain, odynophagia, nasal discharge or nasal congestion Card: Denies: chest pain, palpitations, edema, swelling of feet/ankles, dyspnea on exertion or orthopnea Resp: Denies: dyspnea, productive cough or non-productive cough GI: Denies: abdominal pain, nausea, vomiting, diarrhea, constipation or hematochezia : Denies: flank pain, dysuria or hematuria Musc: Reports: extremity pain (Right knee pain); Denies: neck pain, back pain or extremity swelling Skin/Breast: Denies: rash or new lesions Neuro: Denies: headache(s), numbness in extremities or weakness in extremities PFS ED PFSH: Medical History Abdominal pain Abdominal pain Acute kidney injury Alcohol withdrawal Anxiety Cannabinoid hyperemesis syndrome Cannabis dependence, uncomplicated CVA (cerebral vascular accident) Cyclical vomiting Dehydration Elevated troponin FH: cholecystectomy GI bleed High risk medication use Hyperemesis Hypertension Hypertensive urgency Intractable nausea and vomiting Leukocytosis Major depressive disorder, recurrent, in partial remission Memory loss Nausea & vomiting Nausea and vomiting Plaque psoriasis Post-traumatic stress disorder, chronic Psoriatic arthritis Surgical History History of ankle surgery History of eye surgery History of hysterectomy History of pelvic surgery History of shoulder surgery History of toe surgery Family History Other CAD (coronary artery disease) Cancer Diabetes Hypertension Lung disease Social History Smoking and tobacco status: current some day smoker cigarettes Alcohol intake: current Substance/Drug Use: never Physical Exam Const: COMMON NORMALS: patient oriented x3 HENMT: COMMON NORMALS: normocephalic HEAD & SCALP: normocephalic MOUTH: Normal oral and palatal mucosa present THROAT: posterior oropharynx normal and uvula midline Neck/C-Spine: COMMON NORMALS: supple GENERAL: Yes normal visual inspection Resp: COMMON NORMALS: normal respiratory effort, No retractions, No use of accessory muscles and clear to auscultation bilaterally AUSCULTATION: clear to auscultation bilaterally Cardio: COMMON NORMALS: regular rate, regular rhythm, S1 normal heart sound present, S2 normal heart sound present, No gallops present (Cardio), No clicks present (Cardio), No murmurs present (Cardio) and Peripheral pulses 2+ throughout RATE: regular rate RHYTHM: regular rhythm HEART SOUNDS: S1 normal heart sound present and S2 normal heart sound present PERIPHERAL PULSES: Peripheral pulses 2+ throughout GI: COMMON NORMALS: Normal to inspection, nondistended, normoactive bowel sounds present, Soft to palpation, non-tender and no masses PALPATION: Yes Soft to palpation : COMMON NORMALS: Yes no CVA tenderness BLADDER/KIDNEY EXAM: Yes no CVA tenderness Back/Pelvis: COMMON NORMALS: no CVA tenderness Extremity: COMMON NORMALS: normal to inspection NARRATIVE EXTREMITY EXAM: Right knee?no visible deformity noted. No erythema or warmth seen. Swelling throughout knee present. Tenderness on lateral aspect of knee. Range of motion limited due to pain. Neurovascular intact distally. Neuro: COMMON NORMALS: patient oriented x3 GAIT: Yes Normal gait present Skin: GENERAL SKIN EXAM: dry skin Course Vital Signs: Vital signs: Vital Signs Temperature 97.8 F 01/01/23 18:45 Pulse Rate 78 01/01/23 18:45 Respiratory Rate 16 01/01/23 18:45 Blood Pressure 114/74 01/01/23 18:45 Pulse Oximetry 97 01/01/23 18:45 Oxygen Delivery Me thod Room Air 01/01/23 18:45 MDM - Fall Medical Decision Making Patient is a 52-year-old female comes to the ED with fall/twisting injury to right knee. Injury occurred just prior to arrival. Vitals are stable. Right knee?no visible deformity noted. No erythema or warmth seen. Swelling throughout knee present. Tenderness on lateral aspect of knee. Range of motion limited due to pain. Neurovascular intact distally. X-ray of right knee showed no acute fractures or findings. Given patient's exam findings and how she injured it more concern for like a soft tissue injury of knee. I placed order with case management for patient to be referred to Ortho for follow-up on knee pain. She was put in a knee immobilizer and discharged home with some crutches. Return to ED precautions given. Patient understood and agreed with plan. She was discharged home with pain meds. Lab Data Radiology Impressions Knee X-Ray 01/01/23 18:55 IMPRESSION: No acute findings. Discharge Plan Discharge Patient Disposition: Home Clinical Impression: Pain in right knee Qualifiers: Chronicity: acute Qualified Code(s): M25.561 - Pain in right knee Condition: Stable Prescriptions: New meloxicam 15 mg tablet 15 mg PO DAILY PRN (Reason: pain) Qty: 30 0RF No Action triamcinolone acetonide [Kenalog] 40 mg/mL suspension 40 mg intra-articular ONCE Qty: 1 0RF dexamethasone sodium phosphate 4 mg/mL solution 4 mg intra-articular ONCE Qty: 1 0RF lidocaine (PF) 10 mg/mL (1 %) solution 10 mg intra-articular ONCE Qty: 1.5 0RF ropivacaine (PF) 5 mg/mL (0.5 %) solution 1.5 ml intra-articular ONCE Qty: 1.5 0RF pimecrolimus [Elidel] 1 % cream 1 applic topical BID Qty: 60 1RF Rx Instructions: Apply to affected area on eyelids twice daily hydrocortisone 2.5 % ointment 1 applic topical BID Qty: 28.35 2RF Rx Instructions: Apply twice daily to affected area Cymbalta 60 mg capsule,delayed release(DR/EC) 60 mg PO BID Qty: 60 0RF baclofen 20 mg Tablet 20 mg PO TID PRN (Reason: Muscle Spasm) albuterol sulfate [Ventolin HFA] 90 mcg/actuation Hfa Aerosol Inhaler 1 - 2 puff INHALATION QID PRN (Reason: Shortness Of Breath) pantoprazole 40 mg tablet,delayed release (DR/EC) 40 mg PO BID ascorbic acid (vitamin C) [Vitamin C] 500 mg Tablet 500 mg PO QAM Skyrizi 150 mg/mL pen injector 150 mg SUBCUT .EVERY 12 WEEKS Hold Instructions: Doctor's Order alum-mag hydroxide-simeth [Maalox Maximum Strength] 400-400-40 mg/5 mL suspension 2.5 ml PO Q3H PRN (Reason: indigestion) Qty: 3000 0RF promethazine 25 mg tablet 25 mg PO Q6H PRN (Reason: Nausea) Reglan 10 mg tablet 10 mg PO Q6H PRN (Reason: nausea and vomiting) Qty: 20 0RF amlodipine 10 mg tablet 10 mg PO QAM aspirin 81 mg tablet,delayed release (DR/EC) 81 mg PO QAM clobetasol 0.05 % solution See Rx Instructions .ROUTE .COMPLEX Rx Instructions: Apply a few drops to itchy areas on scalp as needed pregabalin 75 mg capsule 75 mg PO BID [id number] carb-vit K 18 mg iron-400 mcg-500 mg Tablet 1 tab PO DAILY ondansetron 4 mg tablet,disintegrating 4 mg PO Q6H PRN (Reason: nausea and vomiting) Qty: 14 0RF Discharge Orders: Discharge ED (Routine); Ordered 01/01/23 Ordered By: Remy Wolfe Referrals: Bucky Rogers MD [Primary Care Provider] - Discharge Diet: Regular Discharge Activity: Use walker/crutches as instructed Patient Instructions: Knee Pain (ED) Activity Restrictions/Additional Instructions: Follow-up with medical provider as directed. Case management to begin taking a neck several days set up an appointment with Ortho for follow-up on knee pain. Use crutches to help with ambulation and wear knee brace. Rest, ice and elevate. Take medications as prescribed. Return to the ER or your medical provider if condition worsens. Please read and understand discharge instructions. Thank you for choosing [facility] for your healthcare needs today. Please realize this is an emergency room and that we are providing you with a medical screening exam and this may not be complete and all inclusive of all the testing and or work up that you may need to determine your ailment or severity of your illness. It is very important that you follow up as instructed or that you return to the Emergency Department should you have concerns or if your condition changes or worsens in any way. Coding Level of Care Code ED Utility Operator for 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
[2023-01-01] MEDS: HYDROcodone-acetaminophen 7.5-325 mg Tablet 1 TAB PO (19:04)
--- NOTE | 2023-01-02 07:57 | DCPLANNER ---
Addendum entered by Alena Chakraborty 01/15/23 15:16: Patient had a follow up appointment scheduled with ortho - patient did not attend appointment. Addendum entered by Alena Chakraborty 01/03/23 09:49: Patient has a follow up appointment scheduled for Monday, January 09, 2023 at 10:[address] Connelly at ortho. Original Note: senior logistics manager had message to schedule a follow up appointment for patient with ortho. senior logistics manager sent patients information to the front office staff at ortho. Patients information will be printed and reviewed. Clinic will call patient with appointment information.
== END 2023-01-01 20:15 | disposition home or self-care (01) ==
PROVIDERS: Emergency Provider Physician Assistant; PCP Family Medicine
DX: M25.561 Pain in right knee (principal); Z79.82 Long term (current) use of aspirin; F17.210 Nicotine dependence, cigarettes, uncomplicated; Z86.73 Personal history of transient ischemic attack (TIA), and cerebral infarction without residual deficits; I10 Essential (primary) hypertension
CPT/HCPCS: 29530; 73562; 99283; E0114

== ENCOUNTER 2023-01-03 14:34 | Emergency (ER) | payer MEDICARE, MEDICAID, SELFPAY ==
[2023-01-03 14:53] VITALS: BP 118/82; PULSE 72; RESP 20; TEMP 36.3; O2SAT 95; BMI 25.8
== END 2023-01-03 15:21 | disposition left against medical advice (07) ==
LOC: ER 14:42
PROVIDERS: Emergency Provider Family Medicine; PCP Family Medicine
DX: Z53.21 Procedure and treatment not carried out due to patient leaving prior to being seen by health care provider (principal)
CPT/HCPCS: 73130

== ENCOUNTER → 2023-01-09 10:30 | Outpatient (BNVA) | payer MEDICARE, MEDICAID, SELFPAY | PROVIDERS: PCP Family Medicine; Visit Provider Specialist | DX: S80.01XA Contusion of right knee, initial encounter (principal); W01.0XXA Fall on same level from slipping, tripping and stumbling without subsequent striking against object, initial encounter | CPT/HCPCS: 73560; 73565 ==

== ENCOUNTER 2023-01-09 14:09 | Outpatient (CLI) | payer MEDICARE, MEDICAID, SELFPAY | END 2023-01-09 14:10 | disposition home or self-care (01) | LOC: SPT 14:10 | PROVIDERS: PCP Family Medicine; Visit Provider Specialist | DX: Z46.89 Encounter for fitting and adjustment of other specified devices (principal); S80.01XD Contusion of right knee, subsequent encounter; X58.XXXD Exposure to other specified factors, subsequent encounter | CPT/HCPCS: 97760; 99214; J1100; J2795; J3301; L1812 ==

== ENCOUNTER 2023-01-10 00:01 | Emergency (ER) | payer MEDICARE, MEDICAID, SELFPAY ==
[2023-01-10 00:03] VITALS: BP 191/131; PULSE 105; RESP 18; TEMP 37.1; O2SAT 99; BMI 25.8
--- NOTE | 2023-01-10 00:12 | ED_ITS ---
HPI - Nausea/Vomiting/Diarrhea General: Chief complaint: Nausea/Vomiting/Diarrhea Stated complaint: VOMITING Time Seen by Provider: 01/10/23 00:02 Source: patient and EMS Mode of arrival: EMS Limitations: no limitations History of Present Illness: 52-year-old female who has a long history of cyclical vomiting syndrome from marijuana abuse. She states that today she has had vomiting throughout the day with abdominal cramping. She denies any fever she denies any worsening proving factors denies any diarrhea. Associated nausea: Yes Associated symtoms: Reports nausea; Denies chest pain, dysuria or headache(s) Review of Systems Const: Denies: fever(s), chills or body aches Eyes: Denies: eye discomfort ENMT: Denies: throat pain or dental pain Card: Denies: chest pain Resp: Denies: dyspnea GI: Reports: abdominal pain, nausea and vomiting; Denies: diarrhea : Denies: dysuria Musc: Denies: neck pain or back pain Skin/Breast: Denies: rash Neuro: Denies: headache(s) PFSH ED PFSH: Medical History Abdominal pain Abdominal pain Acute kidney injury Alcohol withdrawal Anxiety Cannabinoid hyperemesis syndrome Cannabis dependence, uncomplicated CVA (cerebral vascular accident) Cyclical vomiting Dehydration Elevated troponin FH: cholecystectomy GI bleed High risk medication use Hyperemesis Hypertension Hypertensive urgency Intractable nausea and vomiting Leukocytosis Major depressive disorder, recurrent, in partial remission Memory loss Nausea & vomiting Nausea and vomiting Plaque psoriasis Post-traumatic stress disorder, chronic Psoriatic arthritis Surgical History History of ankle surgery History of eye surgery History of hysterectomy History of pelvic surgery History of shoulder surgery History of toe surgery Family History Other CAD (coronary artery disease) Cancer Diabetes Hypertension Lung disease Social History Smoking and tobacco status: current some day smoker cigarettes Alcohol intake: current Substance/Drug Use: never Physical Exam Const: COMMON NORMALS: no acute distress, patient oriented x3 and healthy ap pearing HENMT: COMMON NORMALS: normocephalic and atraumatic HEAD & SCALP: normocephalic and atraumatic Eye: COMMON NORMALS: negative for conjunctivae normal CONJUNCTIVA: No conjunctivae normal Neck/C-Spine: COMMON NORMALS: full ROM and supple Chest: COMMONS NORMALS: normal inspection of the chest and normal palpation of entire chest wall Resp: COMMON NORMALS: normal respiratory effort, No retractions, No use of accessory muscles and clear to auscultation bilaterally AUSCULTATION: clear to auscultation bilaterally Cardio: COMMON NORMALS: regular rate, regular rhythm and No murmurs present (Cardio) RATE: regular rate RHYTHM: regular rhythm GI: COMMON NORMALS: Normal to inspection, nondistended, normoactive bowel sounds present, Soft to palpation, non-tender and no masses PALPATION: Yes Soft to palpation Extremity: COMMON NORMALS: normal to inspection and full ROM Neuro: COMMON NORMALS: patient oriented x3, moves all extremities and no focal motor deficits Psych: COMMON NORMALS: mental status grossly normal, Normal thought process present and cooperative THOUGHT PROCESS: Normal thought process present Skin: COMMON NORMALS: no rashes or lesions noted and no wounds GENERAL SKIN EXAM: no rashes or lesions noted Course Vital Signs: Vital signs: Vital Signs Temperature 98.7 F 01/10/23 00:03 Pulse Rate 122 H 01/10/23 02:19 Respiratory Rate 20 H 01/10/23 02:19 Blood Pressure 163/129 01/10/23 02:19 Pulse Oximetry 92 01/10/23 02:19 Oxygen Delivery Me thod Room Air 01/10/23 00:03 MDM - Nausea/Vomiting/Diarrhea Medical Decision Making Patient presents for cyclical vomiting syndrome she feels improved here she is no longer had any vomiting she has no abdominal pain at this time blood work is normal she is stable for discharge she is to follow-up with PCP and return if worsening. Medical Records I reviewed the patient's medical records. Lab Data 01/10/23 00:25 01/10/23 00:25 Laboratory Results WBC 13.3 10^3/uL (4.0-10.0) H 01/10/23 00:25 RBC 4.38 10^6/uL (4.1-5.3) 01/10/23 00:25 Hgb 13.4 g/dL (11.5-15.3) 01/10/23 00:25 Hct 38.9 % (37.0-47.0) 01/10/23 00:25 MCV 88.8 fl (81-99) 01/10/23 00:25 MCH 30.6 pg (28.0-34.0) 01/10/23 00:25 MCHC 34.4 g/dL (30.0-36.0) 01/10/23 00:25 RDW 15.7 % (12.1-15.1) H 01/10/23 00:25 Plt Count 470 10^3/cmm (130-400) H 01/10/23 00:25 MPV 9.2 fL (7.4-10.4) 01/10/23 00:25 Neut % (Auto) 88.4 % 01/10/23 00:25 Lymph % (Auto) 6.9 % 01/10/23 00:25 [place] % (Auto) 4.0 % 01/10/23 00:25 Eos % (Auto) 0.1 % 01/10/23 00:25 Baso % (Auto) 0.2 % 01/10/23 00:25 Neut # (Auto) 11.78 10^3/uL (1.8-7.7) H 01/10/23 00:25 Lymph # (Auto) 0.9 10^3/uL (0.8-4.8) 01/10/23 00:25 [place] # (Auto) 0.5 10^3/uL (0.2-0.9) 01/10/23 00:25 Eos # (Auto) 0.0 10^3/uL (0.0-0.8) 01/10/23 00:25 Baso # (Auto) 0.0 10^3/uL (0.0-0.1) 01/10/23 00:25 Nucleated RBC % (auto) 0 % 01/10/23 00:25 Nucleated RBCs # 0.0 /100WBC 01/10/23 00:25 Sodium 135 mmol/L (136-145) L 01/10/23 00:25 Potassium 3.3 mmol/L (3.5-5.1) L 01/10/23 00:25 Chloride 96 mmol/L (98-107) L 01/10/23 00:25 Carbon Dioxide 20 mmol/L (22-29) L 01/10/23 00:25 Anion Gap 22.3 (5-19) H 01/10/23 00:25 BUN 14 mg/dL (6-20) 01/10/23 00:25 Creatinine 0.8 mg/dL (0.5-0.9) 01/10/23 00:25 GFR Calculation 74.7 mL/min (90-130) L 01/10/23 00:25 Glucose 184 mg/dL (65-115) H 01/10/23 00:25 Calculated Osmolality 285 mOsm/kg (285-295) 01/10/23 00:25 Calcium 10.3 mg/dL (8.5-10.5) 01/10/23 00:25 Total Bilirubin 0.6 mg/dL (0.15-1.2) 01/10/23 00:25 AST 17 U/L (0-32) 01/10/23 00:25 ALT 11 U/L (0-33) 01/10/23 00:25 Alkaline Phosphatase 145 U/L (35-105) H 01/10/23 00:25 Total Protein 8.1 g/dL (6.6-8.7) 01/10/23 00:25 Albumin 4.6 g/dL (3.5-5.2) 01/10/23 00:25 Globulin 3.5 g/dL (1.3-4.6) 01/10/23 00:25 Lipase 26 U/L (13-60) 01/10/23 00:25 Discharge Plan Discharge Patient Disposition: Home Clinical Impression: Cyclical vomiting Condition: Stable Prescriptions: New ondansetron 4 mg tablet,disintegrating 4 mg PO Q6H PRN (Reason: nausea and vomiting) Qty: 14 0RF No Action triamcinolone acetonide [Kenalog] 40 mg/mL suspension 40 mg intra-articular ONCE Qty: 1 0RF dexamethasone sodium phosphate 4 mg/mL solution 4 mg intra-articular ONCE Qty: 1 0RF lidocaine (PF) 10 mg/mL (1 %) solution 10 mg intra-articular ONCE Qty: 1.5 0RF ropivacaine (PF) 5 mg/mL (0.5 %) solution 1.5 ml intra-articular ONCE Qty: 1.5 0RF ibuprofen 800 mg tablet 800 mg PO Q8H PRN (Reason: pain) Qty: 15 0RF pimecrolimus [Elidel] 1 % cream 1 applic topical BID Qty: 60 1RF Rx Instructions: Apply to affected area on eyelids twice daily hydrocortisone 2.5 % ointment 1 applic topical BID Qty: 28.35 2RF Rx Instructions: Apply twice daily to affected area (DME) Hinged knee brace See Rx Instructions .Route .MEDSUPPLY Qty: 1 0RF Rx Instructions: As directed Cymbalta 60 mg capsule,delayed release(DR/EC) 60 mg PO BID Qty: 60 0RF baclofen 20 mg Tablet 20 mg PO TID PRN (Reason: Muscle Spasm) albuterol sulfate [Ventolin HFA] 90 mcg/actuation Hfa Aerosol Inhaler 1 - 2 puff INHALATION QID PRN (Reason: Shortness Of Breath) pantoprazole 40 mg tablet,delayed release (DR/EC) 40 mg PO BID ascorbic acid (vitamin C) [Vitamin C] 500 mg Tablet 500 mg PO QAM Skyrizi 150 mg/mL pen injector 150 mg SUBCUT .EVERY 12 WEEKS Hold Instructions: Doctor's Order alum-mag hydroxide-simeth [Maalox Maximum Strength] 400-400-40 mg/5 mL suspension 2.5 ml PO Q3H PRN (Reason: indigestion) Qty: 3000 0RF promethazine 25 mg tablet 25 mg PO Q6H PRN (Reason: Nausea) Reglan 10 mg tablet 10 mg PO Q6H PRN (Reason: nausea and vomiting) Qty: 20 0RF amlodipine 10 mg tablet 10 mg PO QAM aspirin 81 mg tablet,delayed release (DR/EC) 81 mg PO QAM clobetasol 0.05 % solution See Rx Instructions .ROUTE .COMPLEX Rx Instructions: Apply a few drops to itchy areas on scalp as needed pregabalin 75 mg capsule 75 mg PO BID [id number]-Ca carb-vit K 18 mg iron-400 mcg-500 mg Tablet 1 tab PO DAILY ondansetron 4 mg tablet,disintegrating 4 mg PO Q6H PRN (Reason: nausea and vomiting) Qty: 14 0RF meloxicam 15 mg tablet 15 mg PO DAILY PRN (Reason: pain) Qty: 30 0RF Discharge Orders: Discharge ED (Routine); Ordered 01/10/23 Ordered By: Rianna Schneider Referrals: Bucky Rogers MD [Primary Care Provider] - 1-3 days Discharge Diet: Advance as tolerated Discharge Activity: Resume usual activity Patient Instructions: Cyclic Vomiting Syndrome (ED) Coding Level of Care Code ED Raw Sampler for 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
[2023-01-10] MEDS: haloperidol inj 5 mg/mL INJ 1 mL IVP (00:34)
[2023-01-10 00:35] LABS: Basophils % 0.2 %; Eosinophils % 0.1 %; Hematocrit 38.9 % (37.0-47.0); Hemoglobin 13.4 g/dL (11.5-15.3); Lymphocytes # 0.9 10^3/uL (0.8-4.8); Lymphocytes % 6.9 %; Mean Corpuscular HGB Conc 34.4 g/dL (30.0-36.0); Mean Corpuscular Hemoglobin 30.6 pg (28.0-34.0); Mean Corpuscular Volume 88.8 fl (81-99); Mean Platelet Volume 9.2 fL (7.4-10.4); Monocytes # 0.5 10^3/uL (0.2-0.9); Neutrophils # 11.78 10^3/uL (1.8-7.7); Neutrophils % 88.4 %; Nucleated Red Blood Cells % 0 %; Platelet Count 470 10^3/cmm (130-400); Red Blood Count 4.38 10^6/uL (4.1-5.3); Red Cell Distribution Width 15.7 % (12.1-15.1); White Blood Count 13.3 10^3/uL (4.0-10.0)
[2023-01-10] MEDS: sodium chloride 0.9% 1,000 ML 999 ML IV (00:35)
[2023-01-10] MEDS: LORazepam 2 mg/mL INJ 1 mL IVP (00:35)
[2023-01-10] MEDS: hyDRALAzine 20 mg/mL INJ 1 mL 10 MG IVP ×2 (00:57→01:31)
--- NOTE | 2023-01-10 01:01 | ECG_ITS ---
[facility] Test Date: 2023-01-10 Pat Name: Rachelle Mireles Department: Room: Gender: Female [employer] Justice: : 1970 Requested By: Rianna Schneider Order Number: [id number] Michael MD: Damion Villalba M.D. Measurements Intervals Bulger Rate: 102 P: 44 AL: 127 QRS: 35 QRSD: 89 T: 52 QT: 364 QTc: 474 Interpretive Statements SINUS TACHYCARDIA WITH OCCASIONAL SUPRAVENTRICULAR PREMATURE COMPLEXES ABNORMAL RHYTHM ECG Compared to ECG 12/02/2022 01:05:00 Right-axis deviation no longer present ST (T wave) deviation no longer present Electronically Signed On 01-10-2023 14:00:02 CDT by Damion Villalba M.D. [id number]
[2023-01-10 01:03] LABS: Alanine Aminotransferase 11 U/L (0-33); Albumin Level 4.6 g/dL (3.5-5.2); Alkaline Phosphatase 145 U/L (35-105); Anion Gap 22.3 (5-19); Aspartate Amino Transferase 17 U/L (0-32); Blood Urea Nitrogen 14 mg/dL (6-20); Calcium 10.3 mg/dL (8.5-10.5); Carbon Dioxide 20 mmol/L (22-29); Chloride 96 mmol/L (98-107); Globulin 3.5 g/dL (1.3-4.6); Glomerular Filtration Rate 74.7 mL/min (90-130); Glucose 184 mg/dL (65-115); Lipase 26 U/L (13-60); Osmolality Calculated 285 mOsm/kg (285-295); Potassium 3.3 mmol/L (3.5-5.1); Sodium 135 mmol/L (136-145); Total Bilirubin 0.6 mg/dL (0.15-1.2); Total Protein 8.1 g/dL (6.6-8.7)
[2023-01-10] MEDS: metoclopramide 5 mg/mL SDV 2 mL 10 MG IM (01:31)
[2023-01-10] MEDS: diphenhydrAMINE 50 mg/mL SDV 1mL IM (01:31)
[2023-01-10] MEDS: morphine 4 mg/mL SDV 1 mL IM (01:31)
[2023-01-10] MEDS: LORazepam 2 mg/mL INJ 1 mL 1 MG IM (02:11)
[2023-01-10 02:19] VITALS: BP 163/129; PULSE 122; RESP 20; O2SAT 92
== END 2023-01-10 02:28 | disposition home or self-care (01) ==
PROVIDERS: Emergency Provider Emergency Medicine; PCP Family Medicine
DX: R11.15 Cyclical vomiting syndrome unrelated to migraine (principal); Z79.82 Long term (current) use of aspirin; F17.210 Nicotine dependence, cigarettes, uncomplicated; Z86.73 Personal history of transient ischemic attack (TIA), and cerebral infarction without residual deficits; I10 Essential (primary) hypertension
CPT/HCPCS: 80053; 83690; 85025; 93005; 96372; 96374; 96375; 96376; 99284; J0360; J1200; J1630; J2060; J2270; J2765; J7030

== ENCOUNTER 2023-02-01 08:41 | Outpatient (CLI) | payer MEDICARE, MEDICAID, SELFPAY ==
--- NOTE | 2023-02-01 09:30 | CTR_ITS ---
PROCEDURE INFORMATION: Exam: CT Right Lower Extremity Without Contrast, Knee Exam date and time: 02/01/2023 8:52 AM Age: 53 years old Clinical indication: Pain; Prior surgery; Surgery date: 6+ months; Surgery type: Scopes and pins; Patient HX: Patient states on 01/01/23 she was at the laundry mat and slipped on some laundry detergent and landed straight down on the right knee cap. ; Additional info: Right knee injury TECHNIQUE: Imaging protocol: CT of the right lower extremity without contrast was performed. Exam focused on the knee. Radiation optimization: All CT scans at this facility use at least one of these dose optimization techniques: automated exposure control; mA and/or kV adjustment per patient size (includes targeted exams where dose is matched to clinical indication); or iterative reconstruction. REPORTING DATA: Count of CT and Cardiac NM exams in prior 12 months: This patient has received 4 known CTs and 0 known cardiac nuclear medicine studies in the 12 months prior to the current study. COMPARISON: CR XR knees AP WB w RT lmt ORTH 01/09/2023 10:32 AM RADIATION DOSE METRICS: Total DLP (mGy-cm): 302.27 FINDINGS: Bones/joints: Postoperative tunnels in the distal femur, proximal tibia and proximal fibula are noted. Large osteophytes arise from the distal femur, proximal tibia and patella. Benign-appearing fat density is identified within the tibial tunnel associated with anterior cruciate ligament reconstruction. There is marked narrowing of this tibial tunnel at the level of the tibial plateau on series 6, image 21. No acute fracture. There are suture anchor buttons adjacent to the medial cortex of the proximal tibia and the superolateral aspect of the lateral femoral condyle. Mild medial femorotibial compartment and patellofemoral compartment narrowing is present. Moderate joint effusion. Soft tissues: Assessment of the menisci is limited by CT, there appears to be extensive medial extrusion of the medial meniscus by approximately 8 mm with an adjacent ossified body along the inferior margin of the medial meniscal body on series 3, image 56 measuring 2.5 x 0.8 cm in the axial plane by 0.9 cm superior to inferior. CT/CT knee RT wo con* [id number] IMPRESSION: 1. No evidence of acute fracture. 2. Postoperative tunnels in the distal femur and proximal tibia are noted, some of which appear to be associated with anterior cruciate ligament reconstruction. Evaluation of the anterior cruciate ligament graft is limited by CT however narrowing of the tibial tunnel at the level of the tibial plateau is noted which can result in graft impingement. Consider MRI for further evaluation as clinically indicated. 3. Extensive primary osteoarthritic changes. 4. Moderate joint effusion. 5. Medial extrusion of the medial meniscal body with the adjacent ossified body suggestive of an old fracture fragment or parameniscal ossicle.
== END 2023-02-01 08:42 | disposition home or self-care (01) ==
LOC: RAD 08:44
PROVIDERS: PCP Family Medicine; Visit Provider Specialist
DX: S80.01XA Contusion of right knee, initial encounter (principal); W01.0XXA Fall on same level from slipping, tripping and stumbling without subsequent striking against object, initial encounter; Y92.89 Other specified places as the place of occurrence of the external cause; Z98.890 Other specified postprocedural states; M17.11 Unilateral primary osteoarthritis, right knee; M25.461 Effusion, right knee
CPT/HCPCS: 73700

== ENCOUNTER → 2023-02-07 08:33 | Outpatient (BNVA) | payer MEDICARE, MEDICAID, SELFPAY | PROVIDERS: PCP Family Medicine; Visit Provider Physician Assistant | DX: M51.37 Other intervertebral disc degeneration, lumbosacral region (principal); M54.16 Radiculopathy, lumbar region | CPT/HCPCS: 99213 ==

== ENCOUNTER → 2023-02-20 14:35 | Outpatient (BNVA) | payer MEDICARE, MEDICAID, SELFPAY | PROVIDERS: PCP Family Medicine; Visit Provider Specialist | DX: S83.201A Bucket-handle tear of unspecified meniscus, current injury, left knee, initial encounter (principal); M17.11 Unilateral primary osteoarthritis, right knee; W01.0XXA Fall on same level from slipping, tripping and stumbling without subsequent striking against object, initial encounter | CPT/HCPCS: 99213 ==

== ENCOUNTER 2023-03-08 10:49 | Outpatient (CLI) | payer MEDICARE, MEDICAID, SELFPAY ==
--- NOTE | 2023-03-08 11:00 | MR_ITS ---
WS: [id number] MRI RIGHT KNEE HISTORY: knee pain/knee injury COMPARISON: CT 02/01/2023 Anterior cruciate ligament: No identifiable intact ACL. Posterior cruciate ligament: No identifiable intact PCL. Medial collateral ligament: MCL is displaced from the joint line by large marginal osteophytes. Ligam ent is thin but probably intact. Posterior lateral corner structures: Intact. Medial menisci: Extruded meniscus from the joint line. Neither anterior nor posterior horns are visua lized in their normal locations. Lateral meniscus: Small caliber menisci with abnormal signal throughout. Extensor mechanism: Distal quadriceps tendon and patellar tendons are intact. Fluid and soft tissue: Very small joint effusion. No Nichols cyst. Osseous and articular structures: Patellofemoral compartment: Moderate to severe narrowing of the patellofemoral joint space. Osteophyt es along the joint lines. No fracture or marrow edema within the patella. Medial compartment: Severe narrowing medial compartment. Complete loss of joint space and cartilage. Menisci are extruded and not identifiable as normal structures. Small amount of marrow edema in the m edial tibial plateau. Prior screw tracks are noted in the femoral metaphysis. Lateral compartment: Severe narrowing with loss of cartilage and marginal osteophytes. No fracture. MR/MR knee RT wo con* [id number] IMPRESSION: 1. No acute fractures. 2. No identifiable ACL or PCL. Prior ACL repair. 3. Severe medial and lateral joint compartment arthritis. Complete loss of the normal joint spaces and cartilage with bone upon bone and extruded menisci. 4. Moderate to severe narrowing of patellofemoral joint space. 5. Medial menisci are extruded from the joint line. No identifiable menisci. 6. Marrow edema in the medial tibial plateau.
== END 2023-03-08 10:50 | disposition home or self-care (01) ==
LOC: RAD 10:51
PROVIDERS: PCP Family Medicine; Visit Provider Specialist
DX: S83.209A Unspecified tear of unspecified meniscus, current injury, unspecified knee, initial encounter (principal); X58.XXXA Exposure to other specified factors, initial encounter; M17.11 Unilateral primary osteoarthritis, right knee
CPT/HCPCS: 73721

== ENCOUNTER → 2023-03-14 09:59 | Outpatient (BNVA) | payer MEDICARE, MEDICAID, SELFPAY | PROVIDERS: PCP Family Medicine; Visit Provider Specialist | DX: M19.011 Primary osteoarthritis, right shoulder (principal); M19.012 Primary osteoarthritis, left shoulder; M67.911 Unspecified disorder of synovium and tendon, right shoulder | CPT/HCPCS: 20610; J1100; J2795; J3301 ==

== ENCOUNTER → 2023-03-21 14:37 | Outpatient (BNVA) | payer MEDICARE, MEDICAID, SELFPAY | PROVIDERS: PCP Family Medicine; Visit Provider Student in an Organized Health Care Education/Training Program | DX: R76.8 Other specified abnormal immunological findings in serum (principal) | CPT/HCPCS: 36415; 87350; 87517; 99204 ==

== ENCOUNTER 2023-03-27 02:16 | Observation (INO) | payer MEDICARE, MEDICAID, SELFPAY ==
[2023-03-27] VITALS (17 sets, daily range): BP systolic 106–187; BP diastolic 68–117; PULSE 69–127; RESP 13–30; TEMP 36.3–37.3; O2SAT 90–97; BMI 26.6; BMI 26.2
--- NOTE | 2023-03-27 02:22 | W.ED.NAVMDI ---
HPI - Nausea/Vomiting/Diarrhea General: Chief complaint: Nausea/Vomiting/Diarrhea Stated complaint: abd pain, N/V Time Seen by Provider: 03/27/23 02:17 Source: patient and EMS Mode of arrival: EMS Limitations: no limitations History of Present Illness: 53-year-old female is well-known to ER she has had a long history of cyclical vomiting syndrome from marijuana abuse she states she been vomiting over the last 30 hours. She has had multiple episodes of vomiting along with abdominal cramping denies any worsening improving factors. She denies any diarrhea. Associated nausea: Yes Associated symtoms: Reports nausea; Denies chest pain, dysuria or headache(s) Review of Systems Const: Denies: fever(s), chills, body aches or change in appetite Eyes: Denies: eye discomfort ENMT: Denies: throat pain or dental pain Card: Denies: chest pain Resp: Denies: dyspnea GI: Reports: abdominal pain, nausea and vomiting; Denies: diarrhea : Denies: dysuria Musc: Denies: neck pain or back pain Skin/Breast: Denies: rash Neuro: Denies: headache(s) PFSH ED PFSH: Medical History Abdominal pain Abdominal pain Acute kidney injury Alcohol withdrawal Anxiety Cannabinoid hyperemesis syndrome Cannabis dependence, uncomplicated CVA (cerebral vascular accident) Cyclical vomiting Dehydration Elevated troponin FH: cholecystectomy GI bleed High risk medication use Hyperemesis Hypertension Hypertensive urgency Intractable nausea and vomiting Leukocytosis Major depressive disorder, recurrent, in partial remission Memory loss Nausea & vomiting Nausea and vomiting Plaque psoriasis Post-traumatic stress disorder, chronic Psoriatic arthritis Surgical History History of ankle surgery History of eye surgery History of hysterectomy History of pelvic surgery History of shoulder surgery History of toe surgery Family History Other CAD (coronary artery disease) Cancer Diabetes Hypertension Lung disease Social History Smoking and tobacco status: current some day smoker cigarettes Alcohol intake: current Substance/Drug Use: never Physical Exam Const: COMMON NORMALS: no acute distress, patient oriented x3 and healthy appearing HENMT: COMMON NORMALS: normocephalic and atraumatic HEAD & SCALP: normocephalic and atraumatic Eye: COMMON NORMALS: Equal, round and reactive pupils present and EOMs intact bilaterally PUPIL: Yes Equal, round and reactive pupils present Neck/C-Spine: COMMON NORMALS: full ROM and supple Chest: COMMONS NORMALS: normal inspection of the chest and normal palpation of entire chest wall Resp: COMMON NORMALS: normal respiratory effort, No retractions, No use of accessory muscles and clear to auscultation bilaterally AUSCULTATION: clear to auscultation bilaterally Cardio: COMMON NORMALS: regular rate, regular rhythm and No murmurs present (Cardio) RATE: regular rate RHYTHM: regular rhythm GI: COMMON NORMALS: Normal to inspection, nondistended, normoactive bowel sounds present, Soft to palpation, non-tender and no masses PALPATION: Yes Soft to palpation Extremity: COMMON NORMALS: normal to inspection and full ROM Neuro: COMMON NORMALS: patient oriented x3, moves all extremities and no focal motor deficits Psych: COMMON NORMALS: mental status grossly normal, Normal thought process present and cooperative THOUGHT PROCESS: Normal thought process present Skin: COMMON NORMALS: no rashes or lesions noted and no wounds GENERAL SKIN EXAM: no rashes or lesions noted Course Vital Signs: Vital signs: Vital Signs Temperature 99.1 F 03/27/23 02:19 Pulse Rate 119 H 03/27/23 04:56 Respiratory Rate 18 03/27/23 04:56 Blood Pressure 170/112 03/27/23 04:56 Pulse Oximetry 97 03/27/23 04:56 Oxygen Delivery Me thod Room Air 03/27/23 02:21 MDM - Nausea/Vomiting/Diarrhea Medical Decision Making Patient presents for cyclical vomiting syndrome patient been vomiting over the last 2 days she is hyponatremic along with acute kidney injury likely from her vomiting CT shows no acute findings spoke to hospitalist will admit at this time. Medical Records I reviewed the patient's medical records. Lab Data I reviewed the patient's lab results. 03/27/23 02:50 03/27/23 02:50 Radiology Impressions Abdomen/Pelvis CT 03/27/23 03:29 IMPRESSION: Limited noncontrast CT. Diverticulosis. Tiny fat containing ventral hernias. Renal cysts. Postsurgical change. Nonspecific nodular thickening of the left adrenal. Mild ectasia of the infrarenal abdominal aorta for which annual aortic ultrasound is suggested to follow. Laboratory Results WBC 26.9 10^3/uL (4.0-10.0) H 03/27/23 02:50 RBC 4.78 10^6/uL (4.1-5.3) 03/27/23 02:50 Hgb 14.6 g/dL (11.5-15.3) 03/27/23 02:50 Hct 40.3 % (37.0-47.0) 03/27/23 02:50 MCV 84.3 fl (81-99) 03/27/23 02:50 MCH 30.5 pg (28.0-34.0) 03/27/23 02:50 MCHC 36.2 g/dL (30.0-36.0) H 03/27/23 02:50 RDW 13.6 % (12.1-15.1) 03/27/23 02:50 Plt Count 441 10^3/cmm (130-400) H 03/27/23 02:50 MPV 9.5 fL (7.4-10.4) 03/27/23 02:50 Neut % (Auto) 86.0 % 03/27/23 02:50 Lymph % (Auto) 5.4 % 03/27/23 02:50 [place] % (Auto) 6.9 % 03/27/23 02:50 Eos % (Auto) 0.5 % 03/27/23 02:50 Baso % (Auto) 0.2 % 03/27/23 02:50 Neut # (Auto) 23.11 10^3/uL (1.8-7.7) H 03/27/23 02:50 Lymph # (Auto) 1.5 10^3/uL (0.8-4.8) 03/27/23 02:50 [place] # (Auto) 1.9 10^3/uL (0.2-0.9) H 03/27/23 02:50 Eos # (Auto) 0.1 10^3/uL (0.0-0.8) 03/27/23 02:50 Baso # (Auto) 0.1 10^3/uL (0.0-0.1) 03/27/23 02:50 Nucleated RBC % (auto) 0 % 03/27/23 02:50 Nucleated RBCs # 0.0 /100WBC 03/27/23 02:50 Sodium 125 mmol/L (136-145) L 03/27/23 02:50 Potassium 3.1 mmol/L (3.5-5.1) L 03/27/23 02:50 Chloride 68 mmol/L (98-107) L 03/27/23 02:50 Carbon Dioxide 33 mmol/L (22-29) H 03/27/23 02:50 Anion Gap 27.1 (5-19) H 03/27/23 02:50 BUN 34 mg/dL (6-20) H 03/27/23 02:50 Creatinine 3.0 mg/dL (0.5-0.9) H 03/27/23 02:50 GFR Calculation 16.2 mL/min (90-130) L 03/27/23 02:50 Glucose 151 mg/dL (65-115) H 03/27/23 02:50 Calculated Osmolality 271 mOsm/kg (285-295) L 03/27/23 02:50 Calcium 9.4 mg/dL (8.5-10.5) 03/27/23 02:50 Total Bilirubin 1.4 mg/dL (0.15-1.2) H 03/27/23 02:50 AST 50 U/L (0-32) H 03/27/23 02:50 ALT 21 U/L (0-33) 03/27/23 02:50 Alkaline Phosphatase 130 U/L (35-105) H 03/27/23 02:50 Total Protein 8.6 g/dL (6.6-8.7) 03/27/23 02:50 Albumin 4.8 g/dL (3.5-5.2) 03/27/23 02:50 Globulin 3.8 g/dL (1.3-4.6) 03/27/23 02:50 Lipase 26 U/L (13-60) 03/27/23 02:50 Discharge Plan Discharge Patient Disposition: Admitted As Inpatient Admit Provider: Adrian Agosto Clinical Impression: Cyclical vomiting, Acute kidney injury, Hyponatremia, Dehydration Condition: Stable Coding Level of Care Code ED Human Services Instructor for 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
[2023-03-27] MEDS: sodium chloride 0.9% 1,000 ML 999 ML IV (02:27)
[2023-03-27] MEDS: diphenhydrAMINE 50 mg/mL SDV 1mL IVP (02:40)
[2023-03-27] MEDS: metoclopramide 5 mg/mL SDV 2 mL 10 MG IVP (02:40)
[2023-03-27] MEDS: LORazepam 2 mg/mL INJ 1 mL IVP (02:40)
[2023-03-27 02:56] LABS: Basophils # 0.1 10^3/uL (0.0-0.1); Basophils % 0.2 %; Eosinophils # 0.1 10^3/uL (0.0-0.8); Eosinophils % 0.5 %; Hematocrit 40.3 % (37.0-47.0); Hemoglobin 14.6 g/dL (11.5-15.3); Lymphocytes # 1.5 10^3/uL (0.8-4.8); Lymphocytes % 5.4 %; Mean Corpuscular HGB Conc 36.2 g/dL (30.0-36.0); Mean Corpuscular Hemoglobin 30.5 pg (28.0-34.0); Mean Corpuscular Volume 84.3 fl (81-99); Mean Platelet Volume 9.5 fL (7.4-10.4); Monocytes # 1.9 10^3/uL (0.2-0.9); Monocytes % 6.9 %; Neutrophils # 23.11 10^3/uL (1.8-7.7); Nucleated Red Blood Cells % 0 %; Platelet Count 441 10^3/cmm (130-400); Red Blood Count 4.78 10^6/uL (4.1-5.3); Red Cell Distribution Width 13.6 % (12.1-15.1); White Blood Count 26.9 10^3/uL (4.0-10.0)
[2023-03-27 03:20] LABS: Alanine Aminotransferase 21 U/L (0-33); Albumin Level 4.8 g/dL (3.5-5.2); Alkaline Phosphatase 130 U/L (35-105); Anion Gap 27.1 (5-19); Aspartate Amino Transferase 50 U/L (0-32); Blood Urea Nitrogen 34 mg/dL (6-20); Calcium 9.4 mg/dL (8.5-10.5); Carbon Dioxide 33 mmol/L (22-29); Chloride 68 mmol/L (98-107); Globulin 3.8 g/dL (1.3-4.6); Glomerular Filtration Rate 16.2 mL/min (90-130); Glucose 151 mg/dL (65-115); Lipase 26 U/L (13-60); Osmolality Calculated 271 mOsm/kg (285-295); Potassium 3.1 mmol/L (3.5-5.1); Sodium 125 mmol/L (136-145); Total Bilirubin 1.4 mg/dL (0.15-1.2); Total Protein 8.6 g/dL (6.6-8.7)
[2023-03-27 03:26] LABS: Slide Review Slide Review Perform
--- NOTE | 2023-03-27 03:29 | CTR_ITS ---
PROCEDURE INFORMATION: Exam: CT Abdomen And Pelvis Without Contrast Exam date and time: 03/27/2023 3:39 AM Age: 53 years old Clinical indication: Abdominal pain; Generalized; Additional info: Abd pain TECHNIQUE: Imaging protocol: Computed tomography of the abdomen and pelvis without contrast. Radiation optimization: All CT scans at this facility use at least one of these dose optimization techniques: automated exposure control; mA and/or kV adjustment per patient size (includes targeted exams where dose is matched to clinical indication); or iterative reconstruction. REPORTING DATA: Count of CT and Cardiac NM exams in prior 12 months: This patient has received 5 known CTs and 0 known cardiac nuclear medicine studies in the 12 months prior to the current study. COMPARISON: CT abdomen pelvis wo con [id number] 12/02/2022 12:56 AM RADIATION DOSE METRICS: Total DLP (mGy-cm): 479.45 FINDINGS: Tubes, catheters and devices: Patient has undergone surgical fixation about the pelvis with screws and brackets. Lungs: There is minimal gravity dependent change noted at the lung bases. Liver: Normal. No mass. Gallbladder and bile ducts: Surgical clips are noted in the gallbladder fossa compatible with a prior cholecystectomy. Pancreas: Normal. No ductal dilation. Spleen: Normal. No splenomegaly. Adrenal glands: There is nodular thickening of the left adrenal. Kidneys and ureters: The kidneys are normal in overall size without evidence for hydronephrosis or nephrolithiasis. Exophytic cortical cysts are noted at the upper poles measuring up to 24 x 23 x 23 mm on the left. Stomach and bowel: Scattered sigmoid diverticula are noted. Appendix: No evidence of appendicitis. Intraperitoneal space: Unremarkable. No free air. No significant fluid collection. Vasculature: There is mild ectasia of the infrarenal abdominal aorta measuring up to 21 mm which may be followed with annual aortic ultrasound. Lymph nodes: Unremarkable. No enlarged lymph nodes. Urinary bladder: The urinary bladder is contracted. Reproductive: The gynecologic structures are reportedly surgically absent. Bones/joints: Unremarkable. No acute fracture. Soft tissues: There are tiny fat containing midline periumbilical and supraumbilical ventral hernias noted. CT/CT abdomen pelvis wo con [id number] IMPRESSION: Limited noncontrast CT. Diverticulosis. Tiny fat containing ventral hernias. Renal cysts. Postsurgical change. Nonspecific nodular thickening of the left adrenal. Mild ectasia of the infrarenal abdominal aorta for which annual aortic ultrasound is suggested to follow.
[2023-03-27] MEDS: labetalol 5 mg/mL SDV 20mL 10 MG IVP (04:37)
[2023-03-27] MEDS: haloperidol inj 5 mg/mL INJ 1 mL IVP (05:15)
--- NOTE | 2023-03-27 05:54 | P.HP_ITS ---
Providers/Chief Complaint Admitting Physician: Adrian Agosto MD Primary Care Provider: Bucky Rogers MD Chief Complaint: abd pain, N/V History of Present Illness Rachelle Mireles is a 53 year old female with past medical history of cyclic vomiting syndrome associated with cannabis dependence, GI bleed, hypertensive urgency, alcohol withdrawal present to the ER today with complaint of nausea and vomiting along with abdominal pain and few episodes of diarrhea for last 4 days. As per patient she is not able to eat or drink anything for last 4 days. Denies any sick contacts. Denies eating out. States she is not using cannabis anymore since she was told that can cause her to have nausea and vomiting. Denies any fever. Denies any changes in medications recently. In the ER patient received multiple NT emetic medications including Haldol, Ativan and 10 mg of IV Reglan along with 2 L of IV fluid bolus. Examination patient lying comfortably in bed in left lateral position, complaining of nausea but states feeling better than when she came in. Review of Systems General: Reports: 10 or more systems reviewed and unremarkable except in HPI and below Const: Denies: fever(s), chills, body aches, change in appetite, change in weight, malaise, night sweats, diaphoresis, change in sleep pattern, daytime sleepiness or snoring Eyes: Denies: change in vision, blurry vision, photophobia, eye discomfort or eye discharge ENMT: Denies: throat pain, enlarged tonsils, hoarseness, mouth pain, oral sores, dry mouth, tinnitus, nasal congestion or post nasal drip Card: Denies: chest pain, palpitations, irregular heart rhythm, edema, swelling of feet/ankles, lightheadedness, syncope, pre-syncope, dyspnea on exertion, orthopnea, leg pain with exertion or acrocyanosis Resp: Denies: dyspnea, productive cough, non-productive cough, wheezing, stridor, pain on inspiration, change in phlegm color, hemoptysis or chest congestion GI: Denies: abdominal pain, nausea, vomiting, hematemesis, coffee ground emesis, dysphagia, heartburn, diarrhea, constipation, bloating, GI cramping, change in bowel habits, pain on defecation, hematochezia or melena : Denies: flank pain, dysuria, urinary frequency, urinary urgency, urinary hesitancy, nocturia or hematuria Musc: Denies: neck pain, back pain, extremity pain, joint pain, joint swelling, joint redness, joint stiffness or limited range of motion Neuro: Denies: headache(s), numbness in extremities, weakness in extremities, sensory changes, lack of coordination, difficulty walking, frequent falls, dizziness, vertigo, confusion, Slurred speech present, difficulty communicating thoughts or seizure-like activity Psych: Denies: anxiety, depression, mood swings, panic attacks, hopelessness or irritability Endo: Denies: polyuria, polydipsia, tired all the time, cold intolerance, excessive sweating, flushing or heat intolerance Ba/Lymph: Denies: easy bruising or easy bleeding All/Imm: Denies: tongue swelling, facial swelling or acute wheezing Medications/Allergies Home Medications Medication Instructions Recorded Confirmed Last Taken Type duloxetine 60 mg capsule,delayed 60 mg PO BID #60 caps 02/15/20 03/21/23 05/06/22 08:00 Rx release (Cymbalta) albuterol sulfate 90 mcg/actuation 1 - 2 puff inhalation QID PRN 07/13/21 03/21/23 05/06/22 08:00 History aerosol inhaler (Ventolin HFA) Shortness Of Breath baclofen 20 mg tablet 20 mg PO TID PRN Muscle Spasm 07/13/21 03/21/23 05/06/22 08:00 History ascorbic acid (vitamin C) 500 mg 500 mg PO QAM 09/04/21 03/21/23 05/06/22 08:00 History tablet (Vitamin C) pantoprazole 40 mg tablet,delayed 40 mg PO BID 09/04/21 03/21/23 05/06/22 08:00 History release risankizumab-rzaa 150 mg/mL 150 mg SUBCUT .EVERY 12 WEEKS 01/21/22 03/21/23 1 Month Ago History subcutaneous pen injector (Skyrizi) ~11/01/22 pt states being zuniga amlodipine 10 mg tablet 10 mg PO QAM 04/09/22 03/21/23 05/06/22 08:00 History aspirin 81 mg tablet,delayed 81 mg PO QAM 04/09/22 03/21/23 05/06/22 08:00 History release aluminum-mag hydroxide-simethicone 2.5 ml PO Q3H PRN indigestion 05/12/22 03/21/23 Unknown Rx 400 mg-400 mg-40 mg/5 mL oral susp #3,000 mL (Maalox Maximum Strength) promethazine 25 mg tablet 25 mg PO Q6H PRN Nausea 08/25/22 03/21/23 12/01/22 History hydrocortisone 2.5 % topical 1 applic topical BID #28.35 grams 11/21/22 03/21/23 Unknown Rx ointment pimecrolimus 1 % topical cream 1 applic topical BID #60 grams 11/21/22 03/21/23 Unknown Rx (Elidel) clobetasol 0.05 % scalp solution See Rx Instructions .Route .COMPLEX 12/02/22 03/21/23 Unknown History pwmhgsas-qsv-iius-FA-Ca carb-vit K 1 tab PO DAILY 12/02/22 03/21/23 Unknown History 18 mg iron-400 mcg-500 mg tablet pregabalin 75 mg capsule 75 mg PO BID 12/02/22 03/21/23 Unknown History ondansetron 4 mg disintegrating 4 mg PO Q6H PRN nausea and 12/24/22 03/21/23 Unknown Rx tablet vomiting #14 tabs metoclopramide HCl 10 mg tablet 10 mg PO Q6H PRN nausea and 12/26/22 03/21/23 Unknown Rx (Reglan) vomiting #20 tabs meloxicam 15 mg tablet 15 mg PO DAILY PRN pain #30 tabs 01/01/23 03/21/23 Unknown Rx ibuprofen 800 mg tablet 800 mg PO Q8H PRN pain #15 tabs 01/03/23 03/21/23 Unknown Rx Hinged knee brace #1 ea 01/09/23 03/21/23 Unknown Rx ondansetron 4 mg disintegrating 4 mg PO Q6H PRN nausea and 01/10/23 03/21/23 Unknown Rx tablet vomiting #14 tabs Allergies Allergy/AdvReac Type Severity Reaction Status Date / Time adhesive tape Allergy Intermediate rash, red Verified 03/21/23 13:49 codeine Allergy ALGY-Anaphy Verified 03/21/23 13:49 laxis paroxetine [From Paxil] Allergy Unconscious Verified 03/21/23 13:49 PFSH Acute PFSH: Medical History (Updated 03/27/23 @ 06:02 by Adrian Agosto MD) Abdominal pain Abdominal pain Acute kidney injury Alcohol withdrawal Anxiety Cannabinoid hyperemesis syndrome Cannabis dependence, uncomplicated CVA (cerebral vascular accident) Cyclical vomiting Dehydration Elevated troponin FH: cholecystectomy GI bleed Hepatitis B core antibody positive High risk medication use Hyperemesis Hypertension Hypertensive urgency Intractable nausea and vomiting Leukocytosis Major depressive disorder, recurrent, in partial remission Memory loss Nausea & vomiting Nausea and vomiting Plaque psoriasis Post-traumatic stress disorder, chronic Primary osteoarthritis of right knee Psoriatic arthritis Tendinopathy of right rotator cuff Surgical History History of ankle surgery History of eye surgery History of hysterectomy History of pelvic surgery History of shoulder surgery History of toe surgery Family History Other CAD (coronary artery disease) Cancer Diabetes Hypertension Lung disease Social History Smoking and tobacco status: current some day smoker cigarettes Alcohol intake: current Substance/Drug Use: never Vitals/I&O/Wt Last Vital Signs Temp 99.1 F 03/27/23 02:19 Pulse 119 H 03/27/23 04:56 Resp 18 03/27/23 04:56 BP 170/112 03/27/23 04:56 Pulse Ox 97 03/27/23 04:56 O2 Del Method Room Air 03/27/23 02:21 Weight last 48 hrs Weight 74.843 kg Physical Exam Narrative: General: No acute distress, AO x3, dehydrated HEENT: PERRLA, pupils bilaterally equal and reactive Chest: Normal vesicular breath sounds, no added sounds, equal good air entry bilaterally CVS: S1-S2 regular, no murmurs, no tachycardia, no gallops, no rubs Abdomen: Soft, generalized tenderness or lower abdominal, no organomegaly, bowel sounds present but sluggish Neuro: No focal deficits, no facial deformity, AO x3, power 5/5 in all limbs Data 03/27/23 02:50 03/27/23 02:50 Other Labs: Radiology Impressions Abdomen/Pelvis CT 03/27/23 03:29 IMPRESSION: Limited noncontrast CT. Diverticulosis. Tiny fat containing ventral hernias. Renal cysts. Postsurgical change. Nonspecific nodular thickening of the left adrenal. Mild ectasia of the infrarenal abdominal aorta for which annual aortic ultrasound is suggested to follow. Laboratory Results WBC 26.9 10^3/uL (4.0-10.0) H 03/27/23 02:50 RBC 4.78 10^6/uL (4.1-5.3) 03/27/23 02:50 Hgb 14.6 g/dL (11.5-15.3) 03/27/23 02:50 Hct 40.3 % (37.0-47.0) 03/27/23 02:50 MCV 84.3 fl (81-99) 03/27/23 02:50 MCH 30.5 pg (28.0-34.0) 03/27/23 02:50 MCHC 36.2 g/dL (30.0-36.0) H 03/27/23 02:50 RDW 13.6 % (12.1-15.1) 03/27/23 02:50 Plt Count 441 10^3/cmm (130-400) H 03/27/23 02:50 MPV 9.5 fL (7.4-10.4) 03/27/23 02:50 Neut % (Auto) 86.0 % 03/27/23 02:50 Lymph % (Auto) 5.4 % 03/27/23 02:50 [place] % (Auto) 6.9 % 03/27/23 02:50 Eos % (Auto) 0.5 % 03/27/23 02:50 Baso % (Auto) 0.2 % 03/27/23 02:50 Neut # (Auto) 23.11 10^3/uL (1.8-7.7) H 03/27/23 02:50 Lymph # (Auto) 1.5 10^3/uL (0.8-4.8) 03/27/23 02:50 [place] # (Auto) 1.9 10^3/uL (0.2-0.9) H 03/27/23 02:50 Eos # (Auto) 0.1 10^3/uL (0.0-0.8) 03/27/23 02:50 Baso # (Auto) 0.1 10^3/uL (0.0-0.1) 03/27/23 02:50 Nucleated RBC % (auto) 0 % 03/27/23 02:50 Nucleated RBCs # 0.0 /100WBC 03/27/23 02:50 Sodium 125 mmol/L (136-145) L 03/27/23 02:50 Potassium 3.1 mmol/L (3.5-5.1) L 03/27/23 02:50 Chloride 68 mmol/L (98-107) L 03/27/23 02:50 Carbon Dioxide 33 mmol/L (22-29) H 03/27/23 02:50 Anion Gap 27.1 (5-19) H 03/27/23 02:50 BUN 34 mg/dL (6-20) H 03/27/23 02:50 Creatinine 3.0 mg/dL (0.5-0.9) H 03/27/23 02:50 GFR Calculation 16.2 mL/min (90-130) L 03/27/23 02:50 Glucose 151 mg/dL (65-115) H 03/27/23 02:50 Calculated Osmolality 271 mOsm/kg (285-295) L 03/27/23 02:50 Calcium 9.4 mg/dL (8.5-10.5) 03/27/23 02:50 Total Bilirubin 1.4 mg/dL (0.15-1.2) H 03/27/23 02:50 AST 50 U/L (0-32) H 03/27/23 02:50 ALT 21 U/L (0-33) 03/27/23 02:50 Alkaline Phosphatase 130 U/L (35-105) H 03/27/23 02:50 Total Protein 8.6 g/dL (6.6-8.7) 03/27/23 02:50 Albumin 4.8 g/dL (3.5-5.2) 03/27/23 02:50 Globulin 3.8 g/dL (1.3-4.6) 03/27/23 02:50 Lipase 26 U/L (13-60) 03/27/23 02:50 A&P Assessment and plan (1) Nausea & vomiting: Intractable nausea and vomiting. Has history of cyclic vomiting syndrome associated with cannabis. CT abdomen pelvis appreciated for no acute abnormality. IV Protonix 40 mg daily, Zofran every 6 as needed, promethazine every 6 as needed. If needed can start on Reglan. Check urine drug screen, stool studies (2) Sepsis: Ruled in with tachycardia, elevated lactate, leukocytosis, target organ dysfunction with acute kidney injury and electrode abnormalities on admission. Keep mean artery pressure over 65. Check blood cultures, lactate levels. Hold off on antibiotics for now. Leukocytosis could be secondary to extreme nausea and vomiting along with dehydration. If worsens or patient develops fever will start on antibiotics. (3) Dehydration: (4) Acute kidney injury: Baseline creatinine normal. Most likely in setting of dehydration. Multiple electrolyte normalities including hyponatremia, hypokalemia, hypochloremia. Patient having high anion gap metabolic acidosis along with metabolic alkalosis. Most likely in setting of dehydration from nausea and vomiting. Replete potassium with 80 mg IV and 40 mg oral. Start on normal saline with 20 minutes of potassium at 75 cc/h. Medical reconciliation done for nephrotoxic drugs. Repeat BMP in afternoon. Check urine lites, urine creatinine, urine eosinophils (5) Hyponatremia: Target correction of 8 mg in next 24 hours. Repeat BMP in afternoon. Fluid as above. (6) Hypokalemia: As above. (7) Hypochloremia: (8) Metabolic alkalosis: (9) High anion gap metabolic acidosis: (10) Cyclical vomiting: Plan Diarrhea: No colitis on CT abdomen pelvis. Check stool studies. Hold off on antibiotics for now. IV fluids as above. Hypertension: Goal blood pressure less than 140/90 mmHg. Continue with home dose of amlodipine 10 mg daily. Continue other oral home medications including Cymbalta, amlodipine, baclofen as needed, pregabalin. Full code Protonix OPD prophylaxis Lovenox for DVT prophylaxis Clear liquid diet Attestations Medical Necessity Statement*: Admission for more than 2 midnights for management of intractable nausea and vomiting leading to extreme dehydration, acute kidney injury, hand gap metabolic acidosis, metabolic alkalosis with multiple electrolyte abnormalities requiring IV fluids and IV correction of electrolytes Diagnoses Nausea & vomiting R11.2 Sepsis A41.9 Dehydration E86.0 Acute kidney injury N17.9 Hyponatremia E87.1 Hypokalemia E87.6 Hypochloremia E87.8 Metabolic alkalosis E87.3 High anion gap metabolic acidosis E87.29 Cyclical vomiting R11.15
[2023-03-27 06:20] LABS: Procalcitonin 0.29 ng/mL (0-0.5)
[2023-03-27] MEDS: sodium chlor 0.9% + KCl 20 mEq 20 MEQ/1,000 ML BAG 100 MEQ IV ×2 (06:38→21:28)
[2023-03-27 06:39] LABS: Iron 32 ug/dL (37-145); Percent Saturation 9.4 % (20-50); Total Iron Binding Capacity 337 mcg/dl; Unsaturated Iron Binding 305 ug/dL (112-347)
[2023-03-27] MEDS: lidocaine 1% 5 ML in potassium chloride premix 100 ML 26.25 ML IV ×2 (06:41→12:45)
[2023-03-27] MEDS: potassium chloride oral liq 20 mEq/15 mL UDC 40 MEQ PO (06:45)
[2023-03-27] MEDS: aspirin 81 mg EC Tablet PO (06:45)
[2023-03-27] MEDS: amlodipine 10 mg Tablet PO (06:45)
[2023-03-27] MEDS: enoxaparin 40 mg/0.4 mL Syringe SUBCUT (06:47)
[2023-03-27 06:54] LABS: Vitamin B12 582 pg/mL (232-1245)
[2023-03-27] MEDS: pregabalin 75 mg Capsule PO ×2 (08:37→17:13)
[2023-03-27] MEDS: duloxetine 60 mg Capsule PO ×2 (08:37→17:13)
--- NOTE | 2023-03-27 08:59 | PC.PHAR ---
PT IS OUT FOR STRESS TEST AND WILL RETURN AT 9 AM.
[2023-03-27] MEDS: pantoprazole 40 mg SDV IVP (10:13)
[2023-03-27] MEDS: promethazine 25 mg/mL SDV 1 mL 12.5 MG IM (10:14)
[2023-03-27] MEDS: morphine 4 mg/mL SDV 1 mL 2 MG IVP ×3 (11:34→19:37)
--- NOTE | 2023-03-27 11:46 | PM.MISC ---
Miscellaneous Note Note: Dehydration evident with leukocytosis, thrombocytosis Patient is not actively vomiting Patient is stating that her last marijuana was roughly 3 to 4 weeks ago she has quit doing it No active complaints other than mild abdominal discomfort Awake and alert Clinically dehydrated Nonfocal neuro exam Multiple skin tattoos GCS 15 Nonfocal neuro exam Currently on room air Continue clear liquid diet Recurrent admissions secondary to cyclical vomiting Can alternate Zofran and Reglan for now Continue Lyrica Continue DVT prophylaxis Hypovolemic hyponatremia, hypokalemia mixed combination of metabolic acidosis and alkalosis Currently she is being treated with aggressive IV fluid hydration for sepsis, sepsis will be ruled out if she remains afebrile and cultures remain negative, I do believe her tachycardia tachypnea lactic acidosis and significant leukocytosis related to dehydration Monitor kidney function she has developed LEVY related to dehydration
[2023-03-27 12:31] LABS: Lactic Sepsis W/Reflex 0.9 mmol/L (0.5-2.2)
[2023-03-27] MEDS: metoprolol tartrate 50 mg Tablet PO ×2 (12:44→21:27)
[2023-03-27] MEDS: hyDRALAzine 25 mg Tablet PO ×3 (12:44→21:28)
[2023-03-27 14:03] LABS: Alanine Aminotransferase 20 U/L (0-33); Albumin Level 4.5 g/dL (3.5-5.2); Alkaline Phosphatase 119 U/L (35-105); Anion Gap 19.4 (5-19); Aspartate Amino Transferase 52 U/L (0-32); Blood Urea Nitrogen 39 mg/dL (6-20); Carbon Dioxide 34 mmol/L (22-29); Chloride 75 mmol/L (98-107); Globulin 2.7 g/dL (1.3-4.6); Glomerular Filtration Rate 18.3 mL/min (90-130); Glucose 108 mg/dL (65-115); Osmolality Calculated 270 mOsm/kg (285-295); Potassium 3.4 mmol/L (3.5-5.1); Sodium 125 mmol/L (136-145); Total Bilirubin 0.8 mg/dL (0.15-1.2); Total Protein 7.2 g/dL (6.6-8.7)
[2023-03-27 14:05] LABS: Creatinine Clr Calc Pharmacy 24.1611
--- NOTE | 2023-03-27 14:45 | PC.NURSE ---
Midline placed without difficulty. Referred for midline due to poor peripheral access and need for IV potassium. Informed consent obtained and risks and benefits discussed with patient. Left basilic vein assessed, noted to be 4 mm, straight, and best choice for placement. Using sterile technique and MST, left basilic accessed x 1 stick. Mid arm circumference measured 10 cm from left AC 29 cm. Trimmed cath 10 cm with 1 cm external length noted. Good blood return and flushes well. Line secured with stat lock. Insertion site covered with Biopatch and TSM. Report given to bedside Christin carter.
[2023-03-27] MEDS: phenol oral Spray 177 mL 3 SPRAY MUCOUS MEM (15:36)
[2023-03-27 16:46] LABS: Amphetamines Screen Urine Negative (Negative); Barbiturates Screen Urine Negative (Negative); Benzodiazepines Screen Urine Positive (Negative); Cocaine Screen Urine Negative (Negative); Opiate Screen Urine Positive (Negative); PCP Screen Urine Negative (Negative); THC Screen Urine Positive (Negative)
[2023-03-27 16:48] LABS: Add Urine Microscopic? YES; Bilirubin Urine Neg (Negative); Blood Urine 2+ (Negative); Glucose Urine UA Norm (Normal); Ketones Urine Negative (Negative); Leukocyte Esterase Urine Negative (Negative); Nitrate Urine Negative (Negative); Protein Urine 2+ (Negative); Urine Appearance Clear (CLEAR); Urine Color Yellow (Yellow); Urobilinogen Urine Norm (Negative); pH Urine 7 (5-7)
[2023-03-27 16:49] LABS: Add Urine Culture? No; Hyaline Casts Urine 0-4 /lpf; Mucus Urine 2+ /hpf; RBC Urine 0-4 /hpf (0-2); Squamous Epithelial Cell Urine 0-4 /hpf (0-5); WBC Urine 0-4 /hpf (0-5)
[2023-03-27 16:55] LABS: Urine Creatinine 111 mg/dL (28-217); Urine Random Sodium 34 mmol/L
[2023-03-27] MEDS: lanolin oint 7 gm 1 APPLIC TOPICAL (17:12)
[2023-03-27 17:16] LABS: Eosinophil Urine No Eosinophils Seen; Urine Eosinophil Count 0 (0-0)
[2023-03-27 17:36] LABS: Alanine Aminotransferase 20 U/L (0-33); Albumin Level 4.2 g/dL (3.5-5.2); Alkaline Phosphatase 106 U/L (35-105); Aspartate Amino Transferase 49 U/L (0-32); Blood Urea Nitrogen 39 mg/dL (6-20); Carbon Dioxide 29 mmol/L (22-29); Chloride 80 mmol/L (98-107); Globulin 2.5 g/dL (1.3-4.6); Glucose 98 mg/dL (65-115); Osmolality Calculated 269 mOsm/kg (285-295); Sodium 125 mmol/L (136-145); Total Bilirubin 0.7 mg/dL (0.15-1.2); Total Protein 6.7 g/dL (6.6-8.7)
[2023-03-27 17:37] LABS: Potassium, Radom Urine 111 mmol/L; Urine Random Chloride 10 mmol/L
[2023-03-27 17:41] LABS: Anion Gap 19.7 (5-19); Potassium 3.7 mmol/L (3.5-5.1)
[2023-03-28] VITALS (7 sets, daily range): BP systolic 101–147; BP diastolic 59–93; PULSE 60–80; RESP 15–16; TEMP 36.6; O2SAT 91–95; BMI 26.2
[2023-03-28] MEDS: morphine 4 mg/mL SDV 1 mL 2 MG IVP ×2 (04:04→08:51)
[2023-03-28 05:12] LABS: Basophils % 0.1 %; Eosinophils % 0.3 %; Hemoglobin 12.3 g/dL (11.5-15.3); Lymphocytes # 1.8 10^3/uL (0.8-4.8); Lymphocytes % 16.1 %; Mean Corpuscular HGB Conc 34.2 g/dL (30.0-36.0); Mean Corpuscular Hemoglobin 30.7 pg (28.0-34.0); Mean Corpuscular Volume 89.8 fl (81-99); Mean Platelet Volume 9.7 fL (7.4-10.4); Monocytes # 1.3 10^3/uL (0.2-0.9); Monocytes % 11.8 %; Neutrophils # 7.89 10^3/uL (1.8-7.7); Neutrophils % 71.3 %; Nucleated Red Blood Cells % 0 %; Platelet Count 336 10^3/cmm (130-400); Red Blood Count 4.01 10^6/uL (4.1-5.3); Red Cell Distribution Width 14.2 % (12.1-15.1); White Blood Count 11.1 10^3/uL (4.0-10.0)
[2023-03-28 05:37] LABS: Alanine Aminotransferase 20 U/L (0-33); Alkaline Phosphatase 99 U/L (35-105); Anion Gap 17.7 (5-19); Aspartate Amino Transferase 36 U/L (0-32); Blood Urea Nitrogen 35 mg/dL (6-20); Calcium 8.7 mg/dL (8.5-10.5); Carbon Dioxide 27 mmol/L (22-29); Chloride 87 mmol/L (98-107); Globulin 2.3 g/dL (1.3-4.6); Glomerular Filtration Rate 36.1 mL/min (90-130); Glucose 104 mg/dL (65-115); Osmolality Calculated 274 mOsm/kg (285-295); Phosphorus 3.6 mg/dL (2.5-4.5); Potassium 3.7 mmol/L (3.5-5.1); Sodium 128 mmol/L (136-145); Total Bilirubin 0.4 mg/dL (0.15-1.2); Total Protein 6.3 g/dL (6.6-8.7)
[2023-03-28 05:40] LABS: Chol HDL Ratio 3.72 mg/dL (0.0-4.40); Cholesterol 294 mg/dL (0-200); HDL Cholesterol 79 mg/dL (60-100); LDL Cholesterol Calculated 181 mg/dL (50-129); LDL HDL Ratio 2.29 RATIO (0.00-3.22); Triglycerides 170 mg/dL (0-150)
[2023-03-28] MEDS: amlodipine 10 mg Tablet PO (05:47)
[2023-03-28 05:48] LABS: Folate Level 18.9 ng/mL (4.8-37.3)
[2023-03-28] MEDS: sodium chlor 0.9% + KCl 20 mEq 20 MEQ/1,000 ML BAG 100 MEQ IV (06:47)
[2023-03-28] MEDS: duloxetine 60 mg Capsule PO (08:49)
[2023-03-28] MEDS: metoprolol tartrate 50 mg Tablet PO (08:49)
[2023-03-28] MEDS: hyDRALAzine 25 mg Tablet PO (08:50)
[2023-03-28] MEDS: pregabalin 75 mg Capsule PO (08:50)
[2023-03-28] MEDS: pantoprazole 40 mg SDV IVP (08:50)
[2023-03-28] MEDS: enoxaparin 30 mg/0.3 mL Syringe SUBCUT (08:53)
--- NOTE | 2023-03-28 10:47 | PM.DCS ---
Discharge Providers Date of Admission: 03/27/23 05:09 Date of Discharge: March 28, 2023 Attending Provider at Admission: Adrian Agosto MD Attending Provider at Discharge: Tania Peck MD Primary Care Provider: Bucky Rogers MD Diagnoses at Discharge Discharge Diagnosis (1) Nausea & vomiting: Status: Acute (2) Sepsis: Status: Acute (3) Dehydration: Status: Acute (4) Acute kidney injury: Status: Acute (5) Hyponatremia: Status: Acute (6) Hypokalemia: Status: Acute (7) Hypochloremia: Status: Acute (8) Metabolic alkalosis: Status: Acute (9) High anion gap metabolic acidosis: Status: Acute (10) Cyclical vomiting: Status: Acute Reason for Visit Reason for Visit: abd pain, N/V Hospital Course Hospital Course 53 female with history of cyclical vomiting, marijuana abuse in the past, was admitted this time for management and evaluation of cyclical vomiting with dehydration, sepsis was ruled out, her tachycardia leukocytosis and high lactic acid were related to dehydration, no active source of infection identified, LEVY was due to dehydration which has improved significantly with IV fluid hydration Drug screen was requested which showed positive for opioids and marijuana however patient is stating that her last use was roughly 3 weeks ago, patient is noncompliant, and active smoker, tolerating her diet, ET abdomen pelvis did not show any acute pathological changes, she remained afebrile leukocytosis improved, creatinine trending down, patient to be discharged home, counseled on cessation of marijuana to prevent readmissions Physical Exam Narrative: Patient is edentulous Multiple skin tattoos Signs of dehydration improving Pleasant and cooperative Abdomen soft on palpation S1, S2 Nonfocal neuro exam No active emesis Doing well on room air Urinary Catheter Management: Abel: Cath Placed During This Visit: yes, but has since been removed by the nurse Reason for Continuing Indwelling Catheter: Decision to DC Catheter Urinary Catheter Date of Insertion: 03/27/23 Urinary Catheter Time of Insertion: 16:31 Date Urinary Catheter Removed: 03/27/23 Time Urinary Catheter Discontinued: 18:30 Discharge Data Studies Completed and Pending Completed Studies During Hospitalization Category Date Time Status CT abdomen pelvis wo con [id number] Stat Cat Scan 03/27/23 03:29 Completed Pending at discharge Category Date Time Status Blood Culture Stat Lab 03/27/23 11:56 Results Clostridioides Difficile PCR Routine Lab 03/27/23 06:25 Ordered Enteric Bacterial Panel by PCR Routine Lab 03/27/23 06:25 Ordered Enteric Parasite Panel by PCR Routine Lab 03/27/23 06:25 Ordered Immunochemical Fecal OCB Routine Lab 03/27/23 06:25 Ordered Lactoferrin Routine Lab 03/27/23 06:25 Ordered Radiology Impressions Abdomen/Pelvis CT 03/27/23 03:29 IMPRESSION: Limited noncontrast CT. Diverticulosis. Tiny fat containing ventral hernias. Renal cysts. Postsurgical change. Nonspecific nodular thickening of the left adrenal. Mild ectasia of the infrarenal abdominal aorta for which annual aortic ultrasound is suggested to follow. Laboratory Results WBC 11.1 10^3/uL (4.0-10.0) H 03/28/23 05:00 RBC 4.01 10^6/uL (4.1-5.3) L 03/28/23 05:00 Hgb 12.3 g/dL (11.5-15.3) 03/28/23 05:00 Hct 36.0 % (37.0-47.0) L 03/28/23 05:00 MCV 89.8 fl (81-99) D 03/28/23 05:00 MCH 30.7 pg (28.0-34.0) 03/28/23 05:00 MCHC 34.2 g/dL (30.0-36.0) D 03/28/23 05:00 RDW 14.2 % (12.1-15.1) 03/28/23 05:00 Plt Count 336 10^3/cmm (130-400) 03/28/23 05:00 MPV 9.7 fL (7.4-10.4) 03/28/23 05:00 Neut % (Auto) 71.3 % 03/28/23 05:00 Lymph % (Auto) 16.1 % 03/28/23 05:00 [place] % (Auto) 11.8 % 03/28/23 05:00 Eos % (Auto) 0.3 % 03/28/23 05:00 Baso % (Auto) 0.1 % 03/28/23 05:00 Neut # (Auto) 7.89 10^3/uL (1.8-7.7) H 03/28/23 05:00 Lymph # (Auto) 1.8 10^3/uL (0.8-4.8) 03/28/23 05:00 [place] # (Auto) 1.3 10^3/uL (0.2-0.9) H 03/28/23 05:00 Eos # (Auto) 0.0 10^3/uL (0.0-0.8) 03/28/23 05:00 Baso # (Auto) 0.0 10^3/uL (0.0-0.1) 03/28/23 05:00 Nucleated RBC % (auto) 0 % 03/28/23 05:00 Nucleated RBCs # 0.0 /100WBC 03/28/23 05:00 Sodium 128 mmol/L (136-145) L 03/28/23 05:00 Potassium 3.7 mmol/L (3.5-5.1) 03/28/23 05:00 Chloride 87 mmol/L (98-107) L 03/28/23 05:00 Carbon Dioxide 27 mmol/L (22-29) 03/28/23 05:00 Anion Gap 17.7 (5-19) 03/28/23 05:00 BUN 35 mg/dL (6-20) H 03/28/23 05:00 Creatinine 1.5 mg/dL (0.5-0.9) H 03/28/23 05:00 GFR Calculation 36.1 mL/min (90-130) L 03/28/23 05:00 Glucose 104 mg/dL (65-115) 03/28/23 05:00 Calculated Osmolality 274 mOsm/kg (285-295) L 03/28/23 05:00 Lactic Acid 0.9 mmol/L (0.5-2.2) 03/27/23 11:50 Calcium 8.7 mg/dL (8.5-10.5) 03/28/23 05:00 Phosphorus 3.6 mg/dL (2.5-4.5) 03/28/23 05:00 Magnesium 2.0 mg/dL (1.7-2.3) 03/28/23 05:00 Iron 32 ug/dL (37-145) L 03/27/23 02:50 TIBC 337 mcg/dl 03/27/23 02:50 % Saturation 9.4 % (20-50) L 03/27/23 02:50 Unsat Iron Binding 305 ug/dL (112-347) 03/27/23 02:50 Total Bilirubin 0.4 mg/dL (0.15-1.2) 03/28/23 05:00 AST 36 U/L (0-32) H 03/28/23 05:00 ALT 20 U/L (0-33) 03/28/23 05:00 Alkaline Phosphatase 99 U/L (35-105) 03/28/23 05:00 Total Protein 6.3 g/dL (6.6-8.7) L 03/28/23 05:00 Albumin 4.0 g/dL (3.5-5.2) 03/28/23 05:00 Globulin 2.3 g/dL (1.3-4.6) 03/28/23 05:00 Triglycerides 170 mg/dL (0-150) H 03/28/23 05:00 Cholesterol 294 mg/dL (0-200) H 03/28/23 05:00 LDL Cholesterol, Calc 181 mg/dL (50-129) H 03/28/23 05:00 HDL Cholesterol 79 mg/dL (60-100) 03/28/23 05:00 LDL/HDL Ratio 2.29 RATIO (0.00-3.22) 03/28/23 05:00 Cholesterol/HDL Ratio 3.72 mg/dL (0.0-4.40) 03/28/23 05:00 Lipase 26 U/L (13-60) 03/27/23 02:50 Vitamin B12 582 pg/mL (232-1245) 03/27/23 02:50 Folate 18.9 ng/mL (4.8-37.3) 03/28/23 05:00 Procalcitonin 0.29 ng/mL (0-0.5) 03/27/23 02:50 Urine Color Yellow (Yellow) 03/27/23 16:22 Urine Appearance Clear (CLEAR) 03/27/23 16:22 Urine pH 7 (5-7) 03/27/23 16:22 Ur Specific [place] 1.010 (1.005-1.030) 03/27/23 16:22 Urine Protein 2+ (Negative) H 03/27/23 16:22 Urine Glucose (UA) Norm (Normal) 03/27/23 16:22 Urine Ketones Negative (Negative) 03/27/23 16:22 Urine Blood 2+ (Negative) H 03/27/23 16:22 Urine Nitrate Negative (Negative) 03/27/23 16:22 Urine Bilirubin Neg (Negative) 03/27/23 16:22 Urine Urobilinogen Norm mg/dL (Negative) 03/27/23 16:22 Ur Leukocyte Esterase Negative (Negative) 03/27/23 16:22 Urine RBC 0-4 /hpf (0-2) H 03/27/23 16:22 Urine WBC 0-4 /hpf (0-5) H 03/27/23 16:22 Ur Eosinophil Smear 0 (0-0) 03/27/23 16:22 Ur Squamous Epith Cells 0-4 /hpf (0-5) H 03/27/23 16:22 Amorphous Sediment Not Reportable 03/27/23 16:22 Urine Bacteria None /hpf (NONE) 03/27/23 16:22 Hyaline Casts 0-4 /lpf H 03/27/23 16:22 Urine Mucus 2+ /hpf 03/27/23 16:22 Urine Eosinophils No eosinophils seen 03/27/23 16:22 Ur Random Sodium 34 mmol/L 03/27/23 16:22 Ur Random Potassium 111 mmol/L 03/27/23 16:22 Ur Random Chloride 10 mmol/L 03/27/23 16:22 Urine Creatinine 111 mg/dL (28-217) 03/27/23 16:22 Urine Opiates Screen Positive ng/mL (Negative) H 03/27/23 16:22 Ur Barbiturates Screen Negative ng/mL (Negative) 03/27/23 16:22 Ur Phencyclidine Scrn Negative ng/mL (Negative) 03/27/23 16:22 Ur Amphetamines Screen Negative ng/mL (Negative) 03/27/23 16:22 U Benzodiazepines Scrn Positive ng/mL (Negative) H 03/27/23 16:22 Urine Cocaine Screen Negative ng/mL (Negative) 03/27/23 16:22 U Marijuana (THC) Screen Positive ng/mL (Negative) H 03/27/23 16:22 Vitals Last Vital Signs Temp 97.8 F 03/28/23 08:00 Pulse 73 03/28/23 08:00 Resp 15 03/28/23 08:51 BP 120/76 03/28/23 08:00 Pulse Ox 91 03/28/23 08:00 O2 Del Method Room Air 03/28/23 08:00 Discharge Plan Discharge Patient Disposition: Home Condition: Stable Prescriptions: New metoprolol tartrate 50 mg Tablet 50 mg PO BID@0900,2100 Qty: 60 0RF amlodipine 10 mg tablet 10 mg PO DAILY Qty: 30 3RF potassium chloride 20 mEq tablet extended release 20 meq PO DAILY Qty: 3 0RF sodium chloride 1,000 mg tablet,soluble 1,000 mg PO BID Qty: 6 0RF Continued pimecrolimus [Elidel] 1 % cream 1 applic topical BID Qty: 60 1RF Rx Instructions: Apply to affected area on eyelids twice daily hydrocortisone 2.5 % ointment 1 applic topical BID Qty: 28.35 2RF Rx Instructions: Apply twice daily to affected area (DME) Hinged knee brace See Rx Instructions .Route .MEDSUPPLY Qty: 1 0RF Rx Instructions: As directed Cymbalta 60 mg capsule,delayed release(DR/EC) 60 mg PO BID Qty: 60 0RF baclofen 20 mg Tablet 20 mg PO TID PRN (Reason: Muscle Spasm) albuterol sulfate [Ventolin HFA] 90 mcg/actuation Hfa Aerosol Inhaler 1 - 2 puff INHALATION QID PRN (Reason: Shortness Of Breath) pantoprazole 40 mg tablet,delayed release (DR/EC) 40 mg PO BID ascorbic acid (vitamin C) [Vitamin C] 500 mg Tablet 500 mg PO QAM Skyrizi 150 mg/mL pen injector 150 mg SUBCUT .EVERY 12 WEEKS Hold Instructions: Doctor's Order alum-mag hydroxide-simeth [Maalox Maximum Strength] 400-400-40 mg/5 mL suspension 2.5 ml PO Q3H PRN (Reason: indigestion) Qty: 3000 0RF ondansetron 4 mg tablet,disintegrating 4 mg PO Q6H PRN (Reason: nausea and vomiting) Qty: 14 0RF amlodipine 10 mg tablet 10 mg PO QAM aspirin 81 mg tablet,delayed release (DR/EC) 81 mg PO QAM clobetasol 0.05 % solution See Rx Instructions .ROUTE .COMPLEX Rx Instructions: Apply a few drops to itchy areas on scalp as needed pregabalin 75 mg capsule 75 mg PO BID [id number] carb-vit K 18 mg iron-400 mcg-500 mg Tablet 1 tab PO DAILY promethazine 25 mg tablet 25 mg PO Q6H PRN (Reason: Nausea) Qty: 10 0RF Discharge Orders: Discharge Order (Routine); Ordered 03/28/23 Ordered By: Tania Peck Referrals: Bucky Rogers MD [Primary Care Provider] - 4-7 days Discharge Diet: GI Soft Discharge Activity: Increase activity as tolerated Patient Instructions: Opioid Safety Discharge Attestations Time Spent in Discharge Care*: greater than 30 min Status at Discharge: Cognitive status at discharge: cognitively intact, Behavioral status at discharge: cooperative, Quality Metrics Clinical Quality Measures [ No reported AMI, CVA or VTE this stay] Coding Level of Care Code Acute Code for Chg Fwd Diagnoses Nausea & vomiting R11.2 Sepsis A41.9 Dehydration E86.0 Acute kidney injury N17.9 Hyponatremia E87.1 Hypokalemia E87.6 Hypochloremia E87.8 Metabolic alkalosis E87.3 High anion gap metabolic acidosis E87.29 Cyclical vomiting R11.15
--- NOTE | 2023-03-28 11:07 | PC.CHAP ---
Pastoral Care Encounter/Spiritual Assessment Type of Contact [] Declined technical support 1 software engineer visit [] Patient/Family/Request visit [] Outpatient visit [] Follow-up visit [] Physician referral [] Code/Alert [x] Routine visit [] Staff referral [] Actively dying [] Patient sleeping [] Family support [] [] Out of room [] Palliative care [] [x] Receiving care in room [] Pre-surgical visit [] Trauma [] Long length of stay [] ICU visit [] Other: Relational/Emotional Strength [x] Patient feels connected with others/family/visitors/staff [] Distress [] Loneliness/isolation [] Abandonment Spirituality of Patient [x] Person of Ceci [] Attends Buddhism of their Ceci [x] Believes in Prayer [] Reads Bible or Nondenominational materials [] There are Spiritual issues to be addressed Rental Agent Interventions [x] Prayer [x] Active listening [x] Non-anxious presence [x] Spiritual/emotional support [] Crisis/trauma care [x] Spiritual counseling [] Bereavement support [] Provided bereavement packet [] Provided Bible/devotional materials [] Provided toy/stuffed animal, coloring book to patient or family member [] Provided Communion [] Anointing/[place] [] Salvation [x] Completed spiritual assessment [] Other: Impact on Illness or Injury [] Angry [] Fearful [] Anxious [] Often cries [] Exhaustion [] Unable to work [] Unable to attend episcopal [] Unable to walk/stand [] Unable to read [] Unable to drive [] Unable to eat/drink [] Unable to sleep [] Unable to be with family [] Patient intubated [] Other: Summary stomic has some blood issues to clear then she can go home Time spent with patient 10 mins
== END 2023-03-28 05:09 | disposition home or self-care (01) | DRG 683 ==
LOC: ER 04:56 → MEDSURG 05:33
PROVIDERS: Internal Medicine; Admitting Provider Student in an Organized Health Care Education/Training Program; Emergency Provider Emergency Medicine; PCP Family Medicine; Visit Provider Student in an Organized Health Care Education/Training Program
DX: N17.9 Acute kidney failure, unspecified (principal); E87.1 Hypo-osmolality and hyponatremia; E86.0 Dehydration; F17.210 Nicotine dependence, cigarettes, uncomplicated; Z79.51 Long term (current) use of inhaled steroids; Z79.82 Long term (current) use of aspirin; I16.0 Hypertensive urgency; F41.9 Anxiety disorder, unspecified; Z86.73 Personal history of transient ischemic attack (TIA), and cerebral infarction without residual deficits; F33.41 Major depressive disorder, recurrent, in partial remission; F43.12 Post-traumatic stress disorder, chronic; D75.839 Thrombocytosis, unspecified; E87.6 Hypokalemia; L40.50 Arthropathic psoriasis, unspecified; M17.11 Unilateral primary osteoarthritis, right knee; E87.3 Alkalosis; E87.8 Other disorders of electrolyte and fluid balance, not elsewhere classified; F11.90 Opioid use, unspecified, uncomplicated; F12.99 Cannabis use, unspecified with unspecified cannabis-induced disorder; Z98.890 Other specified postprocedural states; E87.20 Acidosis, unspecified; Z79.899 Other long term (current) drug therapy; F10.130 Alcohol abuse with withdrawal, uncomplicated
CPT/HCPCS: 36415; 36573; 51702; 74176; 80053; 80061; 80306; 81001; 82436; 82570; 82607; 82746; 83540; 83550; 83605; 83690; 83735; 84100; 84133; 84145; 84300; 85025; 85999; 87040; 94664; 96372; 96374; 96375; 99285; C1751; C9113; G0378; J1200; J1630; J1650; J2060; J2270; J2550; J2765; J3480; J3490; J7030

== ENCOUNTER → 2023-04-17 08:01 | Outpatient (BNVA) | payer MEDICARE, MEDICAID, SELFPAY | PROVIDERS: PCP Family Medicine; Visit Provider Thoracic Surgery (Cardiothoracic Vascular Surgery) | DX: I96 Gangrene, not elsewhere classified (principal); L89.892 Pressure ulcer of other site, stage 2 | CPT/HCPCS: 97597; 99213 ==

== ENCOUNTER 2023-04-22 22:49 | Emergency (ER) | payer MEDICARE, MEDICAID, SELFPAY ==
[2023-04-22 23:01] VITALS: BP 166/108; PULSE 99; RESP 18; TEMP 36.8; O2SAT 100; BMI 27.4
--- NOTE | 2023-04-22 23:48 | W.ED.NAVMDI ---
HPI - Nausea/Vomiting/Diarrhea General: Chief complaint: Nausea/Vomiting/Diarrhea Stated complaint: N/V Time Seen by Provider: 04/22/23 22:58 Source: patient and EMS Mode of arrival: EMS Limitations: no limitations History of Present Illness: 53-year-old female is very well-known to the ER has a long history of cyclical vomiting syndrome states she started vomiting roughly 4 to 5 hours ago. States she had multiple episodes along with abdominal cramping she denies any worsening proving factors. Denies any diarrhea. Denies any severe abdominal pain. Associated nausea: Yes Associated symtoms: Reports nausea; Denies chest pain, dysuria or headache(s) Review of Systems Const: Denies: fever(s) or chills ENMT: Denies: throat pain or dental pain Card: Denies: chest pain Resp: Denies: dyspnea GI: Reports: abdominal pain, nausea and vomiting; Denies: diarrhea : Denies: dysuria Musc: Denies: neck pain or back pain Skin/Breast: Denies: rash Neuro: Denies: headache(s) PFSH ED PFSH: Medical History Abdominal pain Abdominal pain Acute kidney injury Acute kidney injury Alcohol withdrawal Anxiety Cannabinoid hyperemesis syndrome Cannabis dependence, uncomplicated CVA (cerebral vascular accident) Cyclical vomiting Cyclical vomiting Dehydration Dehydration Elevated troponin FH: cholecystectomy GI bleed Hepatitis B core antibody positive High anion gap metabolic acidosis High risk medication use Hyperemesis Hypertension Hypertensive urgency Hypochloremia Hypokalemia Hyponatremia Intractable nausea and vomiting Leukocytosis Major depressive disorder, recurrent, in partial remission Memory loss Metabolic alkalosis Nausea & vomiting Nausea and vomiting Plaque psoriasis Post-traumatic stress disorder, chronic Primary osteoarthritis of right knee Psoriatic arthritis Sepsis Tendinopathy of right rotator cuff Surgical History History of ankle surgery History of eye surgery History of hysterectomy History of pelvic surgery History of shoulder surgery History of toe surgery Family History Other CAD (coronary artery disease) Cancer Diabetes Hypertension Lung disease Social History Smoking and tobacco status: current some day smoker cigarettes Alcohol intake: current Substance/Drug Use: never Physical Exam Const: COMMON NORMALS: patient oriented x3 HENMT: COMMON NORMALS: normocephalic and atraumatic HEAD & SCALP: normocephalic and atraumatic Eye: COMMON NORMALS: Equal, round and reactive pupils present and EOMs intact bilaterally PUPIL: Yes Equal, round and reactive pupils present Neck/C-Spine: COMMON NORMALS: full ROM and supple Chest: COMMONS NORMALS: normal inspection of the chest and normal palpation of entire chest wall Resp: COMMON NORMALS: normal respiratory effort, No retractions, No use of accessory muscles and clear to auscultation bilaterally AUSCULTATION: clear to auscultation bilaterally Cardio: COMMON NORMALS: regular rate, regular rhythm and No murmurs present (Cardio) RATE: regular rate RHYTHM: regular rhythm GI: COMMON NORMALS: Normal to inspection, nondistended, normoactive bowel sounds present, Soft to palpation, non-tender and no masses PALPATION: Yes Soft to palpation Extremity: COMMON NORMALS: normal to inspection and full ROM Neuro: COMMON NORMALS: patient oriented x3, moves all extremities and no focal motor deficits Psych: COMMON NORMALS: mental status grossly normal, Normal thought process present and cooperative THOUGHT PROCESS: Normal thought process present Skin: COMMON NORMALS: no rashes or lesions noted and no wounds GENERAL SKIN EXAM: no rashes or lesions noted Course Vital Signs: Vital signs: Vital Signs Temperature 98.2 F 04/22/23 23:01 Pulse Rate 110 H 04/23/23 03:05 Respiratory Rate 22 H 04/23/23 03:05 Blood Pressure 169/126 04/23/23 03:05 Pulse Oximetry 94 04/23/23 03:05 Oxygen Delivery Me thod Room Air 04/23/23 01:02 MDM - Nausea/Vomiting/Diarrhea Medical Decision Making Patient presents here with sickle vomiting she is much improved. Tolerating p.o. blood work here is normal we will prescribe her Phenergan she is stable for discharge she is follow-up with PCP and return if worsening. Medical Records I reviewed the patient's medical records. Lab Data I reviewed the patient's lab results. 04/23/23 00:18 04/23/23 01:05 Laboratory Results WBC 15.4 10^3/uL (4.0-10.0) H 04/23/23 00:18 RBC 4.56 10^6/uL (4.1-5.3) 04/23/23 00:18 Hgb 13.9 g/dL (11.5-15.3) 04/23/23 00:18 Hct 39.9 % (37.0-47.0) 04/23/23 00:18 MCV 87.5 fl (81-99) 04/23/23 00:18 MCH 30.5 pg (28.0-34.0) 04/23/23 00:18 MCHC 34.8 g/dL (30.0-36.0) 04/23/23 00:18 RDW 15.2 % (12.1-15.1) H 04/23/23 00:18 Plt Count 427 10^3/cmm (130-400) H 04/23/23 00:18 MPV 9.7 fL (7.4-10.4) 04/23/23 00:18 Neut % (Auto) 86.0 % 04/23/23 00:18 Lymph % (Auto) 7.5 % 04/23/23 00:18 [place] % (Auto) 5.7 % 04/23/23 00:18 Eos % (Auto) 0.1 % 04/23/23 00:18 Baso % (Auto) 0.1 % 04/23/23 00:18 Neut # (Auto) 13.24 10^3/uL (1.8-7.7) H 04/23/23 00:18 Lymph # (Auto) 1.2 10^3/uL (0.8-4.8) 04/23/23 00:18 [place] # (Auto) 0.9 10^3/uL (0.2-0.9) 04/23/23 00:18 Eos # (Auto) 0.0 10^3/uL (0.0-0.8) 04/23/23 00:18 Baso # (Auto) 0.0 10^3/uL (0.0-0.1) 04/23/23 00:18 Nucleated RBC % (auto) 0 % 04/23/23 00:18 Nucleated RBCs # 0.0 /100WBC 04/23/23 00:18 Sodium 136 mmol/L (136-145) 04/23/23 01:05 Potassium 3.8 mmol/L (3.5-5.1) 04/23/23 01:05 Chloride 94 mmol/L (98-107) L 04/23/23 01:05 Carbon Dioxide 24 mmol/L (22-29) 04/23/23 01:05 Anion Gap 21.8 (5-19) H 04/23/23 01:05 BUN 16 mg/dL (6-20) 04/23/23 01:05 Creatinine 0.9 mg/dL (0.5-0.9) 04/23/23 01:05 GFR Calculation 65.0 mL/min (90-130) L 04/23/23 01:05 Glucose 156 mg/dL (65-115) H 04/23/23 01:05 Calculated Osmolality 286 mOsm/kg (285-295) 04/23/23 01:05 Calcium 10.2 mg/dL (8.5-10.5) 04/23/23 01:05 Total Bilirubin 0.5 mg/dL (0.15-1.2) 04/23/23 01:05 AST 29 U/L (0-32) 04/23/23 01:05 ALT 16 U/L (0-33) 04/23/23 01:05 Alkaline Phosphatase 132 U/L (35-105) H 04/23/23 01:05 Total Protein 8.6 g/dL (6.6-8.7) 04/23/23 01:05 Albumin 5.0 g/dL (3.5-5.2) 04/23/23 01:05 Globulin 3.6 g/dL (1.3-4.6) 04/23/23 01:05 Lipase 28 U/L (13-60) 04/23/23 01:05 Discharge Plan Discharge Patient Disposition: Home Clinical Impression: Cyclical vomiting Condition: Stable Prescriptions: New promethazine 25 mg tablet 25 mg PO TID PRN (Reason: nausea and vomiting) Qty: 20 0RF No Action fluconazole 150 mg tablet 150 mg PO Q3D Qty: 2 0RF pimecrolimus [Elidel] 1 % cream 1 applic topical BID Qty: 60 1RF Rx Instructions: Apply to affected area on eyelids twice daily hydrocortisone 2.5 % ointment 1 applic topical BID Qty: 28.35 2RF Rx Instructions: Apply twice daily to affected area (DME) Hinged knee brace See Rx Instructions .Route .MEDSUPPLY Qty: 1 0RF Rx Instructions: As directed linezolid 600 mg tablet PO Cymbalta 60 mg capsule,delayed release(DR/EC) 60 mg PO BID Qty: 60 0RF baclofen 20 mg Tablet 20 mg PO TID PRN (Reason: Muscle Spasm) albuterol sulfate [Ventolin HFA] 90 mcg/actuation Hfa Aerosol Inhaler 1 - 2 puff INHALATION QID PRN (Reason: Shortness Of Breath) pantoprazole 40 mg tablet,delayed release (DR/EC) 40 mg PO BID ascorbic acid (vitamin C) [Vitamin C] 500 mg Tablet 500 mg PO QAM Skyrizi 150 mg/mL pen injector 150 mg SUBCUT .EVERY 12 WEEKS Hold Instructions: Doctor's Order alum-mag hydroxide-simeth [Maalox Maximum Strength] 400-400-40 mg/5 mL suspension 2.5 ml PO Q3H PRN (Reason: indigestion) Qty: 3000 0RF ondansetron 4 mg tablet,disintegrating 4 mg PO Q6H PRN (Reason: nausea and vomiting) Qty: 14 0RF amlodipine 10 mg tablet 10 mg PO QAM aspirin 81 mg tablet,delayed release (DR/EC) 81 mg PO QAM clobetasol 0.05 % solution See Rx Instructions .ROUTE .COMPLEX Rx Instructions: Apply a few drops to itchy areas on scalp as needed pregabalin 75 mg capsule 75 mg PO BID [id number]-Ca carb-vit K 18 mg iron-400 mcg-500 mg Tablet 1 tab PO DAILY metoprolol tartrate 50 mg Tablet 50 mg PO BID@0900,2100 Qty: 60 0RF amlodipine 10 mg tablet 10 mg PO DAILY Qty: 30 3RF sodium chloride 1,000 mg tablet,soluble 1,000 mg PO BID Qty: 6 0RF potassium chloride 20 mEq tablet extended release 20 meq PO DAILY Qty: 3 0RF promethazine 25 mg tablet 25 mg PO Q6H PRN (Reason: Nausea) Qty: 10 0RF Discharge Orders: Discharge ED (Routine); Ordered 04/23/23 Ordered By: Rianna Schneider Referrals: Bucky Rogers MD [Primary Care Provider] - Discharge Diet: Advance as tolerated Discharge Activity: Resume usual activity Patient Instructions: Acute Nausea and Vomiting (ED) Coding Level of Care Code ED Stock Unloader for 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
[2023-04-22] MEDS: haloperidol inj 5 mg/mL INJ 1 mL IVP (23:59)
[2023-04-22] MEDS: LORazepam 2 mg/mL INJ 1 mL IVP (23:59)
[2023-04-23 00:06] VITALS: BP 187/137; PULSE 107; RESP 26; O2SAT 98
[2023-04-23 00:27] LABS: Basophils % 0.1 %; Eosinophils % 0.1 %; Hematocrit 39.9 % (37.0-47.0); Hemoglobin 13.9 g/dL (11.5-15.3); Lymphocytes # 1.2 10^3/uL (0.8-4.8); Lymphocytes % 7.5 %; Mean Corpuscular HGB Conc 34.8 g/dL (30.0-36.0); Mean Corpuscular Hemoglobin 30.5 pg (28.0-34.0); Mean Corpuscular Volume 87.5 fl (81-99); Mean Platelet Volume 9.7 fL (7.4-10.4); Monocytes # 0.9 10^3/uL (0.2-0.9); Monocytes % 5.7 %; Neutrophils # 13.24 10^3/uL (1.8-7.7); Nucleated Red Blood Cells % 0 %; Platelet Count 427 10^3/cmm (130-400); Red Blood Count 4.56 10^6/uL (4.1-5.3); Red Cell Distribution Width 15.2 % (12.1-15.1); White Blood Count 15.4 10^3/uL (4.0-10.0)
[2023-04-23] MEDS: diphenhydrAMINE 50 mg/mL SDV 1mL IM (00:29)
[2023-04-23] MEDS: metoclopramide 5 mg/mL SDV 2 mL 10 MG IM (00:30)
[2023-04-23] MEDS: sodium chloride 0.9% 1,000 ML 999 ML IV (00:33)
[2023-04-23 00:35] VITALS: BP 191/110; PULSE 98; RESP 22; O2SAT 100
[2023-04-23 01:02] VITALS: BP 160/109; PULSE 95; RESP 22; O2SAT 96
[2023-04-23 01:26] LABS: Alanine Aminotransferase 16 U/L (0-33); Alkaline Phosphatase 132 U/L (35-105); Blood Urea Nitrogen 16 mg/dL (6-20); Calcium 10.2 mg/dL (8.5-10.5); Carbon Dioxide 24 mmol/L (22-29); Chloride 94 mmol/L (98-107); Globulin 3.6 g/dL (1.3-4.6); Glucose 156 mg/dL (65-115); Lipase 28 U/L (13-60); Osmolality Calculated 286 mOsm/kg (285-295); Sodium 136 mmol/L (136-145); Total Bilirubin 0.5 mg/dL (0.15-1.2); Total Protein 8.6 g/dL (6.6-8.7)
[2023-04-23 01:35] LABS: Anion Gap 21.8 (5-19); Aspartate Amino Transferase 29 U/L (0-32); Potassium 3.8 mmol/L (3.5-5.1)
[2023-04-23] MEDS: LORazepam 2 mg/mL INJ 1 mL 1 MG IVP (02:50)
[2023-04-23] MEDS: promethazine 25 mg Tablet PO (02:50)
[2023-04-23 03:05] VITALS: BP 169/126; PULSE 110; RESP 22; O2SAT 94
== END 2023-04-23 03:07 | disposition home or self-care (01) ==
PROVIDERS: Emergency Provider Emergency Medicine; PCP Family Medicine
DX: R11.15 Cyclical vomiting syndrome unrelated to migraine (principal)
CPT/HCPCS: 80053; 83690; 85025; 96374; 96375; 96376; 99284; J1200; J1630; J2060; J2765; J7030; Q0169

== ENCOUNTER → 2023-04-24 08:21 | Outpatient (BNVA) | payer MEDICARE, MEDICAID, SELFPAY | PROVIDERS: PCP Family Medicine; Visit Provider Thoracic Surgery (Cardiothoracic Vascular Surgery) | DX: I96 Gangrene, not elsewhere classified (principal); L89.892 Pressure ulcer of other site, stage 2; M17.11 Unilateral primary osteoarthritis, right knee | CPT/HCPCS: 20610; 97597; 99213; J7318 ==

== ENCOUNTER → 2023-05-01 08:18 | Outpatient (BNVA) | payer MEDICARE, MEDICAID, SELFPAY | PROVIDERS: PCP Family Medicine; Visit Provider Thoracic Surgery (Cardiothoracic Vascular Surgery) | DX: Z09 Encounter for follow-up examination after completed treatment for conditions other than malignant neoplasm (principal) | CPT/HCPCS: 99212 ==

== ENCOUNTER 2023-05-08 14:51 | Inpatient (IN) | payer MEDICARE, MEDICAID, SELFPAY ==
[2023-05-08] VITALS (9 sets, daily range): BP systolic 117–192; BP diastolic 70–116; PULSE 82–123; RESP 15–21; TEMP 36.7–37.3; O2SAT 93–100; BMI 25.8
--- NOTE | 2023-05-08 15:17 | CTR_ITS ---
PROCEDURE INFORMATION: Exam: CT Head Without Contrast Exam date and time: 05/08/2023 4:12 PM Age: 53 years old Clinical indication: Altered mental status/memory loss; Additional info: AMS TECHNIQUE: Imaging protocol: Computed tomography of the head without contrast. Radiation optimization: All CT scans at this facility use at least one of these dose optimization techniques: automated exposure control; mA and/or kV adjustment per patient size (includes targeted exams where dose is matched to clinical indication); or iterative reconstruction. REPORTING DATA: Count of CT and Cardiac NM exams in prior 12 months: This patient has received 5 known CTs and 0 known cardiac nuclear medicine studies in the 12 months prior to the current study. COMPARISON: MR mcnally's wo con [id number] 08/22/2021 8:11 AM RADIATION DOSE METRICS: Total DLP (mGy-cm): 1110 FINDINGS: Brain: There is no acute intracranial hemorrhage or abnormal extra-axial fluid collection identified. There is no intracranial mass effect or shift of midline structures. The escoto-white differentiation is preserved throughout. There is no sulcal effacement. The basilar cisterns are open. Cerebral ventricles: No hydrocephalus or ventricular effacement. Paranasal sinuses: There is partial opacification the left sphenoid sinus, bubbly appearance. Correlate clinical information regarding acute bacterial sinusitis. Mastoid air cells: There is no mastoid effusion detected. Orbital cavities: A curvilinear metallic densities are seen in the medial aspect of right orbit. Correlate with surgical history regarding nature of surgical procedure, as well as MRI compatibility. Bones/joints: No calvarial fracture or destructive osseous lesions are seen. Soft tissues: Unremarkable. CT/CT head wo con* [id number] IMPRESSION: 1. No acute intracranial pathology identified by CT. 2. Curvilinear metallic densities are seen in the medial aspect of right orbit. Correlate with surgical history regarding nature of surgical procedure, as well as MRI compatibility.
--- NOTE | 2023-05-08 15:26 | PC.PHAR ---
pt unable to verify medications-called pts son he states the pt takes care of her own medications but states he went and got the pts bag of meds and verified what he could-pts son states he found a full bottle of pepcid 20mg bid for 10 days rx filled 04/11/22,mobic 15mg daily prn rx bottle dated 01/02/23,states found a empty bottle of lyrica 75mg bid dated 02/28/23 30d/s and baclofen 20mg tid prn-pts son states he didnt see sodium chloride 1000 mg bid written on 03/28/23,linezolid 600mg q12h for 10 days dated 04/05/23 14d/s-rx written for cosentyx on 05/01/23 pts son states he is unsure if pt is getting-pts son states he thinks that is all the medications the pt takes but states the pt is the one who takes care of her own medications notes are made in the pharmacy comments
[2023-05-08 15:55] LABS: ABG PCO2 41.1 mmHg (35-45); ABG PH Result 7.53 (7.35-7.45); Alveolar-Arterial Oxygen Gradi 3.8 mmHg (5-10); Arterial Blood Gas Hematocrit 33.9 % (37-47); Base Excess ABG 10.8 mmol/L (-2.0-2.0); Blood Gas Allen Test Pos; Blood Gas Operator Identificat glc; Blood Gas Sample Site Radial, left; Blood Gas Sample Type Arterial; HCO3 ABG 34.5 mmol/L (22-26); HGB O2 Sat 93.3 % (95-100); Methemoglobin 0.6 % (0.4-1.5); Oxygen Device ROOM AIR; Oxygen Saturation ABG 94.8; PO2 ABG 69.1 mmHg (80.0-100.0); Potassium Level - ABG 2.3 mmol/L (3.5-5.0); Total Hemoglobin 11.1 g/dL (12-16)
[2023-05-08 15:56] LABS: Basophils % 0.1 %; Hematocrit 29.2 % (36-47); Lymphocytes # 0.6 10^3/uL (0.8-4.8); Lymphocytes % 3.1 %; Mean Corpuscular Hemoglobin 30.3 pg (27-33); Mean Corpuscular Volume 84.1 fl (85-98); Mean Platelet Volume 9.4 fL (7.4-10.4); Monocytes # 0.5 10^3/uL (0.2-0.9); Monocytes % 2.8 %; Neutrophils # 16.62 10^3/uL (1.8-7.7); Neutrophils % 93.2 %; Nucleated Red Blood Cells % 0 %; Platelet Count 602 10^3/cmm (157-399); Red Blood Count 3.47 10^6/uL (3.85-5.65); Red Cell Distribution Width 13.7 % (12.1-15.1); White Blood Count 17.84 10^3/uL (3.29-11.43)
[2023-05-08 16:11] LABS: Alanine Aminotransferase 20 U/L (0-33); Albumin Level 4.7 g/dL (3.5-5.2); Alkaline Phosphatase 132 U/L (35-105); Anion Gap 26.4 (5-19); Aspartate Amino Transferase 19 U/L (0-32); Blood Urea Nitrogen 62 mg/dL (6-20); Calcium 9.2 mg/dL (8.5-10.5); Carbon Dioxide 29 mmol/L (22-29); Chloride 71 mmol/L (98-107); Globulin 3.8 g/dL (1.3-4.6); Glomerular Filtration Rate 18.3 mL/min (90-130); Glucose 127 mg/dL (65-115); Lipase 60 U/L (13-60); Osmolality Calculated 277 mOsm/kg (285-295); Sodium 124 mmol/L (136-145); Total Bilirubin 0.3 mg/dL (0.15-1.2); Total Protein 8.5 g/dL (6.6-8.7)
[2023-05-08 16:17] LABS: Lactic Sepsis W/Reflex 1.1 mmol/L (0.5-2.2)
[2023-05-08 16:21] LABS: Potassium 2.4 mmol/L (3.5-5.1)
--- NOTE | 2023-05-08 16:28 | ED_ITS ---
HPI - Altered Mental Status General: Chief Complaint: Altered Mental Status Stated Complaint: AMS Time Seen by Provider: 05/08/23 14:54 PFSH ED PFSH: Medical History (Updated 04/26/23 @ 17:33 by Mely Connelly MD) Abdominal pain Abdominal pain Acute kidney injury Acute kidney injury Alcohol withdrawal Anxiety Cannabinoid hyperemesis syndrome Cannabis dependence, uncomplicated CVA (cerebral vascular accident) Cyclical vomiting Cyclical vomiting Dehydration Dehydration Elevated troponin FH: cholecystectomy GI bleed Hepatitis B core antibody positive High anion gap metabolic acidosis High risk medication use Hyperemesis Hypertension Hypertensive urgency Hypochloremia Hypokalemia Hyponatremia Intractable nausea and vomiting Leukocytosis Major depressive disorder, recurrent, in partial remission Memory loss Metabolic alkalosis Nausea & vomiting Nausea and vomiting Plaque psoriasis Post-traumatic stress disorder, chronic Primary osteoarthritis of right knee Psoriatic arthritis Sepsis Tendinopathy of right rotator cuff Surgical History History of ankle surgery History of eye surgery History of hysterectomy History of pelvic surgery History of shoulder surgery History of toe surgery Family History Other CAD (coronary artery disease) Cancer Diabetes Hypertension Lung disease Social History Smoking and tobacco status: current some day smoker cigarettes Alcohol intake: current Substance/Drug Use: never Course Vital Signs: Vital signs: Vital Signs Temperature 98.0 F 05/08/23 14:54 Pulse Rate 93 05/08/23 15:57 Respiratory Rate 18 05/08/23 14:54 Blood Pressure 192/111 05/08/23 14:54 Pulse Oximetry 98 05/08/23 15:57 Oxygen Delivery Me thod Room Air 05/08/23 15:57 MDM - Altered Mental Status Lab Data 05/08/23 15:34 05/08/23 15:34 Laboratory Results WBC 17.84 10^3/uL (3.29-11.43) H 05/08/23 15:34 RBC 3.47 10^6/uL (3.85-5.65) L 05/08/23 15:34 Hgb 10.50 g/dL (11.27-16.99) L 05/08/23 15:34 Hct 29.2 % (36-47) L 05/08/23 15:34 MCV 84.1 fl (85-98) L 05/08/23 15:34 MCH 30.3 pg (27-33) 05/08/23 15:34 MCHC 36.0 g/dL (30-55) 05/08/23 15:34 RDW 13.7 % (12.1-15.1) 05/08/23 15:34 Plt Count 602 10^3/cmm (157-399) H 05/08/23 15:34 MPV 9.4 fL (7.4-10.4) 05/08/23 15:34 Neut % (Auto) 93.2 % 05/08/23 15:34 Lymph % (Auto) 3.1 % 05/08/23 15:34 [place] % (Auto) 2.8 % 05/08/23 15:34 Eos % (Auto) 0.0 % 05/08/23 15:34 Baso % (Auto) 0.1 % 05/08/23 15:34 Neut # (Auto) 16.62 10^3/uL (1.8-7.7) H 05/08/23 15:34 Lymph # (Auto) 0.6 10^3/uL (0.8-4.8) L 05/08/23 15:34 [place] # (Auto) 0.5 10^3/uL (0.2-0.9) 05/08/23 15:34 Eos # (Auto) 0.0 10^3/uL (0.0-0.8) 05/08/23 15:34 Baso # (Auto) 0.0 10^3/uL (0.0-0.1) 05/08/23 15:34 Nucleated RBC % (auto) 0 % 05/08/23 15:34 Nucleated RBCs # 0.0 /100WBC 05/08/23 15:34 Specimen Type Arterial 05/08/23 15:44 Sample Site Radial, left 05/08/23 15:44 ABG pH 7.53 (7.35-7.45) H 05/08/23 15:44 ABG pCO2 41.1 mmHg (35-45) 05/08/23 15:44 ABG pO2 69.1 mmHg (80.0-100.0) L 05/08/23 15:44 ABG HCO3 34.5 mmol/L (22-26) H 05/08/23 15:44 ABG O2 Saturation 94.8 05/08/23 15:44 ABG Base Excess 10.8 mmol/L (-2.0-2.0) H 05/08/23 15:44 [place] Test Pos 05/08/23 15:44 A-a O2 Gradient 3.8 mmHg (5-10) L 05/08/23 15:44 Hematocrit 33.9 % (37-47) L 05/08/23 15:44 Hgb O2 Saturation 93.3 % (95-100) L 05/08/23 15:44 Carboxyhemoglobin 1.0 %THgb (0.4-20.1) 05/08/23 15:44 Methemoglobin 0.6 % (0.4-1.5) 05/08/23 15:44 Total Hemoglobin 11.1 g/dL (12-16) L 05/08/23 15:44 Sodium 128.0 mmol/L (131-143) L 05/08/23 15:44 Potassium 2.3 mmol/L (3.5-5.0) L 05/08/23 15:44 Glucose 126.0 mg/dL (70-115) H 05/08/23 15:44 Ionized Calcium 1.0 mmol/L (1.1-1.4) L 05/08/23 15:44 O2 Delivery Device Room air 05/08/23 15:44 FiO2 21.0 % 05/08/23 15:44 Senior Behavioral Scientist ID glc 05/08/23 15:44 Sodium 124 mmol/L (136-145) L 05/08/23 15:34 Potassium 2.4 mmol/L (3.5-5.1) L* 05/08/23 15:34 Chloride 71 mmol/L (98-107) L 05/08/23 15:34 Carbon Dioxide 29 mmol/L (22-29) 05/08/23 15:34 Anion Gap 26.4 (5-19) H 05/08/23 15:34 BUN 62 mg/dL (6-20) H 05/08/23 15:34 Creatinine 2.7 mg/dL (0.5-0.9) H 05/08/23 15:34 GFR Calculation 18.3 mL/min (90-130) L 05/08/23 15:34 Glucose 127 mg/dL (65-115) H 05/08/23 15:34 Calculated Osmolality 277 mOsm/kg (285-295) L 05/08/23 15:34 Lactic Acid 1.1 mmol/L (0.5-2.2) 05/08/23 15:34 Calcium 9.2 mg/dL (8.5-10.5) 05/08/23 15:34 Total Bilirubin 0.3 mg/dL (0.15-1.2) 05/08/23 15:34 AST 19 U/L (0-32) 05/08/23 15:34 ALT 20 U/L (0-33) 05/08/23 15:34 Alkaline Phosphatase 132 U/L (35-105) H 05/08/23 15:34 Total Protein 8.5 g/dL (6.6-8.7) 05/08/23 15:34 Albumin 4.7 g/dL (3.5-5.2) 05/08/23 15:34 Globulin 3.8 g/dL (1.3-4.6) 05/08/23 15:34 Lipase 60 U/L (13-60) 05/08/23 15:34 Discharge Plan Discharge Condition: Stable Prescriptions: No Action (DME) Hinged knee brace See Rx Instructions .Route .MEDSUPPLY Qty: 1 0RF Rx Instructions: As directed Cymbalta 60 mg capsule,delayed release(DR/EC) 60 mg PO BID Qty: 60 0RF Cosentyx Pen (2 Pens) 150 mg/mL pen injector 300 mg SUBCUT DIRECTED Qty: 2 4RF Rx Instructions: Start 300 mg SC q week x 5 weeks; then q 4 weeks for maintenance baclofen 20 mg Tablet 20 mg PO TID PRN (Reason: Muscle Spasm) albuterol sulfate [Ventolin HFA] 90 mcg/actuation Hfa Aerosol Inhaler 1 - 2 puff INHALATION QID PRN (Reason: Shortness Of Breath) pantoprazole 40 mg tablet,delayed release (DR/EC) 40 mg PO BID ascorbic acid (vitamin C) [Vitamin C] 500 mg Tablet 500 mg PO QAM alum-mag hydroxide-simeth [Maalox Maximum Strength] 400-400-40 mg/5 mL suspension 2.5 ml PO Q3H PRN (Reason: indigestion) Qty: 3000 0RF ondansetron 4 mg tablet,disintegrating 4 mg PO Q6H PRN (Reason: nausea and vomiting) Qty: 14 0RF aspirin 81 mg tablet,delayed release (DR/EC) 81 mg PO QAM clobetasol 0.05 % solution See Rx Instructions .ROUTE .COMPLEX Rx Instructions: Apply a few drops to itchy areas on scalp as needed pregabalin 75 mg capsule 75 mg PO BID [id number] carb-vit K 18 mg iron-400 mcg-500 mg Tablet 1 tab PO DAILY metoprolol tartrate 50 mg Tablet 50 mg PO BID@0900,2100 Qty: 60 0RF amlodipine 10 mg tablet 10 mg PO DAILY Qty: 30 3RF sodium chloride 1,000 mg tablet,soluble 1,000 mg PO BID Qty: 6 0RF promethazine 25 mg tablet 25 mg PO Q6H PRN (Reason: Nausea) Qty: 10 0RF clindamycin HCl 300 mg capsule 300 mg PO TID Rx Instructions: for 10 days (rx filled 05/03/23) Mobic 15 mg Tablet 15 mg PO DAILY PRN (Reason: Pain) tramadol 50 mg tablet 50 mg PO TID PRN (Reason: Pain) Pepcid 20 mg Tablet 20 mg PO BID Rx Instructions: for 10 days (rx filled 04/11/23 son states bottle was full) linezolid 600 mg tablet 600 mg PO Q12H Rx Instructions: for 14 days (rx filled 04/05/23) indomethacin 25 mg capsule 25 mg PO TID PRN (Reason: Pain) Elidel 1 % cream 1 applic topical BID PRN (Reason: unknown) Rx Instructions: Apply to affected area on eyelids twice daily Referrals: Bucky Rogers MD [Primary Care Provider] - Patient Instructions: Altered Mental Status (ED), Alcohol Intoxication (ED), Benzodiazepine Use Disorder (ED), Concussion (ED), Dementia (ED), Subarachnoid Hemorrhage (GEN), Hyponatremia (ED), Non-diabetic Hypoglycemia (ED), Hypoglycemia in a Person with Diabetes (ED) Coding Level of Care Code ED Sterile Preparation Technician for 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
[2023-05-08 16:57] LABS: Add Urine Microscopic? YES; Bilirubin Urine Neg (Negative); Blood Urine Trace (Negative); Glucose Urine UA 1+ (Normal); Ketones Urine Negative (Negative); Leukocyte Esterase Urine Negative (Negative); Nitrate Urine Negative (Negative); Protein Urine 1+ (Negative); Urine Appearance Clear (CLEAR); Urine Color Yellow (Yellow); Urobilinogen Urine Norm (Negative); pH Urine 5 (5-7)
[2023-05-08 16:58] LABS: Add Urine Culture? No; Amorphous Sediment Urine 2+ /hpf; Mucus Urine 1+ /hpf; RBC Urine 0-4 /hpf (0-2); Squamous Epithelial Cell Urine 0-4 /hpf (0-5); WBC Urine 0-4 /hpf (0-5)
--- NOTE | 2023-05-08 17:11 | CTR_ITS ---
PROCEDURE INFORMATION: Exam: CT Abdomen And Pelvis Without Contrast Exam date and time: 05/08/2023 5:25 PM Age: 53 years old Clinical indication: Abdominal pain; Generalized; Prior surgery; Surgery date: 6+ months; Surgery type: Jessica, pelvic TECHNIQUE: Imaging protocol: Computed tomography of the abdomen and pelvis without contrast. Radiation optimization: All CT scans at this facility use at least one of these dose optimization techniques: automated exposure control; mA and/or kV adjustment per patient size (includes targeted exams where dose is matched to clinical indication); or iterative reconstruction. REPORTING DATA: Count of CT and Cardiac NM exams in prior 12 months: This patient has received 5 known CTs and 0 known cardiac nuclear medicine studies in the 12 months prior to the current study. COMPARISON: CT abdomen pelvis wo con [id number] 03/27/2023 3:39 AM RADIATION DOSE METRICS: Total DLP (mGy-cm): 483 FINDINGS: Liver: There are no focal liver lesions identified by noncontrast CT. Gallbladder and bile ducts: Cholecystectomy. Pancreas: The pancreas is normal. Spleen: The spleen is normal. Adrenal glands: Diffusely plump adrenal glands bilaterally, unchanged in appearance. Kidneys and ureters: There is no evidence of hydronephrosis. Unchanged simple appearing left renal cortical cysts. No renal, ureteral, or bladder calculi are seen. Stomach and bowel: The stomach is normal. There is no evidence of intestinal perforation or obstruction. Appendix: Appendectomy. Intraperitoneal space: There is no free intraperitoneal air visualized. There is no evidence of free intraperitoneal or pelvic fluid. Vasculature: Infrarenal abdominal aortic ectasia, measuring 2.2 cm. No dissection demonstrated. Lymph nodes: No abnormally enlarged lymph nodes identified. Urinary bladder: Abel catheter in the bladder. Air in the bladder likely postprocedural. The bladder is nondistended. Reproductive: Hysterectomy. Bones/joints: No acute fracture visualized. Postsurgical changes of the bony pelvis. Soft tissues: Unremarkable. Other findings: No focal inflammatory process is identified. CT/CT abdomen pelvis wo con [id number] IMPRESSION: 1. No bowel obstruction, free air or focal inflammatory process identified. 2. Diffusely plump adrenal glands bilaterally, stable.
--- NOTE | 2023-05-08 17:15 | PC.NURSE ---
Nurse has made multiple attempts to talk to patient, patient refuses to answer. Pt family has stated that she has spoken a few words to them privately.
--- NOTE | 2023-05-08 17:24 | W.ED.GENADLT ---
Documented by User: Lc Carreno DO 05/09/23 08:04 HPI - General Adult General: Chief complaint: Altered Mental Status Stated complaint: AMS Time Seen by Provider: 05/08/23 14:54 Source: EMS Mode of arrival: EMS History of Present Illness: 53-year-old female presents emergency room confused disoriented. Began last night carried over into today. She is arousable and will follow commands expresses understanding of instructions and follows some she has no focal neurologic deficits. She is having some vomiting. She had a history of cyclical vomiting in the past she recently had toenails removed from her left first and second toes. Patient seen initially there is no family available for further history Onset (ago): day(s) Review of Systems General: Reports: ROS unobtainable due to mental status PFSH ED PFSH: Medical History Abdominal pain Abdominal pain Acute kidney injury Acute kidney injury Alcohol withdrawal Anxiety Cannabinoid hyperemesis syndrome Cannabis dependence, uncomplicated CVA (cerebral vascular accident) Cyclical vomiting Cyclical vomiting Dehydration Dehydration Elevated troponin FH: cholecystectomy GI bleed Hepatitis B core antibody positive High anion gap metabolic acidosis High risk medication use Hyperemesis Hypertension Hypertensive urgency Hypochloremia Hypokalemia Hyponatremia Intractable nausea and vomiting Leukocytosis Major depressive disorder, recurrent, in partial remission Memory loss Metabolic alkalosis Nausea & vomiting Nausea and vomiting Plaque psoriasis Post-traumatic stress disorder, chronic Primary osteoarthritis of right knee Psoriatic arthritis Sepsis Tendinopathy of right rotator cuff Surgical History History of ankle surgery History of eye surgery History of hysterectomy History of pelvic surgery History of shoulder surgery History of toe surgery Family History Other CAD (coronary artery disease) Cancer Diabetes Hypertension Lung disease Social History Smoking and tobacco status: current some day smoker cigarettes Alcohol intake: current Substance/Drug Use: never Physical Exam HENMT: COMMON NORMALS: normocephalic, atraumatic and hearing grossly normal bilaterally HEAD & SCALP: normocephalic and atraumatic Resp: COMMON NORMALS: normal respiratory effort, No retractions, No use of accessory muscles and clear to auscultation bilaterally AUSCULTATION: clear to auscultation bilaterally Cardio: COMMON NORMALS: regular rate, regular rhythm and No murmurs present (Cardio) RATE: regular rate RHYTHM: regular rhythm GI: COMMON NORMALS: Soft to palpation and No hepatosplenomegaly present AUSCULTATION: Yes normoactive bowel sounds PALPATION: Yes Soft to palpation, No Tenderness to palpation present (GI), No Guarding due to palpation present (GI) and Yes No hepatosplenomegaly present Extremity: COMMON NORMALS: normal to inspection, capillary refill normal, no clubbing, cyanosis or edema, no calf tenderness and no pedal edema Neuro: OTHER: No focal neurologic deficits sensation normal bilaterally to sharp touch, no facial asymmetry no asymmetry between right and left with strength or sensation. Skin: COMMON NORMALS: no rashes or lesions noted GENERAL SKIN EXAM: no rashes or lesions noted Course Vital Signs: Vital signs: Vital Signs Temperature 99.1 F 05/09/23 03:37 Pulse Rate 81 05/09/23 03:37 Respiratory Rate 16 05/09/23 03:37 Blood Pressure 165/100 05/09/23 03:37 Pulse Oximetry 97 05/09/23 03:37 Oxygen Delivery Me thod Room Air 05/08/23 23:56 Oxygen Flow Rate 2 05/08/23 17:47 MDM - General Adult Medical Decision Making Care signed out to Dr. Rouse at change of shift. See final notes for diagnosis and disposition. Patient presents to the ER with altered mental status that started yesterday and carried over into today. Patient cannot talk but chooses not to talk to most people in her room. Patient did however say a couple words to me while I was in there. Lab work was obtained which showed a white count of 17.84 sodium of 124 potassium 2.4 BUN/creatinine of 62 and 2.7. Patient was given 1 dose of Zosyn, 40 mEq potassium, 1 L normal saline, 25 of Phenergan, 4 Zofran, at that patient would benefit from inpatient mission secondary to her electrolyte abnormality and her altered mental status. was consulted who agreed to accept the patient inpatient for further evaluation and treatment. Medical Records I reviewed the patient's medical records. Lab Data 05/09/23 05:30 05/09/23 05:[address] 05/08/23 15:17 IMPRESSION: 1. No acute intracranial pathology identified by CT. 2. Curvilinear metallic densities are seen in the medial aspect of right orbit. Correlate with surgical history regarding nature of surgical procedure, as well as MRI compatibility. Abdomen/Pelvis CT 05/08/23 17:11 IMPRESSION: 1. No bowel obstruction, free air or focal inflammatory process identified. 2. Diffusely plump adrenal glands bilaterally, stable. Chest X-Ray 05/08/23 19:36 IMPRESSION: No acute cardiopulmonary disease identified. Toe X-Ray 05/08/23 20:08 IMPRESSION: 1. Arthrodesis at 1st metatarsophalangeal joint, 2nd, 3rd and 4th proximal interphalangeal joints. Anatomic alignment. 2. No radiographic findings osteomyelitis. Laboratory Results WBC 17.84 10^3/uL (3.29-11.43) H 05/08/23 15:34 RBC 3.47 10^6/uL (3.85-5.65) L 05/08/23 15:34 Hgb 10.50 g/dL (11.27-16.99) L 05/08/23 15:34 Hct 29.2 % (36-47) L 05/08/23 15:34 MCV 84.1 fl (85-98) L 05/08/23 15:34 MCH 30.3 pg (27-33) 05/08/23 15:34 MCHC 36.0 g/dL (30-55) 05/08/23 15:34 RDW 13.7 % (12.1-15.1) 05/08/23 15:34 Plt Count 602 10^3/cmm (157-399) H 05/08/23 15:34 MPV 9.4 fL (7.4-10.4) 05/08/23 15:34 Neut % (Auto) 93.2 % 05/08/23 15:34 Lymph % (Auto) 3.1 % 05/08/23 15:34 Stanly % (Auto) 2.8 % 05/08/23 15:34 Eos % (Auto) 0.0 % 05/08/23 15:34 Baso % (Auto) 0.1 % 05/08/23 15:34 Neut # (Auto) 16.62 10^3/uL (1.8-7.7) H 05/08/23 15:34 Lymph # (Auto) 0.6 10^3/uL (0.8-4.8) L 05/08/23 15:34 Stanly # (Auto) 0.5 10^3/uL (0.2-0.9) 05/08/23 15:34 Eos # (Auto) 0.0 10^3/uL (0.0-0.8) 05/08/23 15:34 Baso # (Auto) 0.0 10^3/uL (0.0-0.1) 05/08/23 15:34 Nucleated RBC % (auto) 0 % 05/08/23 15:34 Nucleated RBCs # 0.0 /100WBC 05/08/23 15:34 Specimen Type Arterial 05/08/23 15:44 Sample Site Radial, left 05/08/23 15:44 ABG pH 7.53 (7.35-7.45) H 05/08/23 15:44 ABG pCO2 41.1 mmHg (35-45) 05/08/23 15:44 ABG pO2 69.1 mmHg (80.0-100.0) L 05/08/23 15:44 ABG HCO3 34.5 mmol/L (22-26) H 05/08/23 15:44 ABG O2 Saturation 94.8 05/08/23 15:44 ABG Base Excess 10.8 mmol/L (-2.0-2.0) H 05/08/23 15:44 Mckinley Test Pos 05/08/23 15:44 A-a O2 Gradient 3.8 mmHg (5-10) L 05/08/23 15:44 Hematocrit 33.9 % (37-47) L 05/08/23 15:44 Hgb O2 Saturation 93.3 % (95-100) L 05/08/23 15:44 Carboxyhemoglobin 1.0 %THgb (0.4-20.1) 05/08/23 15:44 Methemoglobin 0.6 % (0.4-1.5) 05/08/23 15:44 Total Hemoglobin 11.1 g/dL (12-16) L 05/08/23 15:44 Sodium 128.0 mmol/L (131-143) L 05/08/23 15:44 Potassium 2.3 mmol/L (3.5-5.0) L 05/08/23 15:44 Glucose 126.0 mg/dL (70-115) H 05/08/23 15:44 Ionized Calcium 1.0 mmol/L (1.1-1.4) L 05/08/23 15:44 O2 Delivery Device Room air 05/08/23 15:44 FiO2 21.0 % 05/08/23 15:44 Stainless Steel Finisher ID [email or web address] 05/08/23 15:44 Sodium 124 mmol/L (136-145) L 05/08/23 15:34 Potassium 2.4 mmol/L (3.5-5.1) L* 05/08/23 15:34 Chloride 71 mmol/L (98-107) L 05/08/23 15:34 Carbon Dioxide 29 mmol/L (22-29) 05/08/23 15:34 Anion Gap 26.4 (5-19) H 05/08/23 15:34 BUN 62 mg/dL (6-20) H 05/08/23 15:34 Creatinine 2.7 mg/dL (0.5-0.9) H 05/08/23 15:34 GFR Calculation 18.3 mL/min (90-130) L 05/08/23 15:34 Glucose 127 mg/dL (65-115) H 05/08/23 15:34 Calculated Osmolality 277 mOsm/kg (285-295) L 05/08/23 15:34 Lactic Acid 1.1 mmol/L (0.5-2.2) 05/08/23 15:34 Calcium 9.2 mg/dL (8.5-10.5) 05/08/23 15:34 Total Bilirubin 0.3 mg/dL (0.15-1.2) 05/08/23 15:34 AST 19 U/L (0-32) 05/08/23 15:34 ALT 20 U/L (0-33) 05/08/23 15:34 Alkaline Phosphatase 132 U/L (35-105) H 05/08/23 15:34 Total Protein 8.5 g/dL (6.6-8.7) 05/08/23 15:34 Albumin 4.7 g/dL (3.5-5.2) 05/08/23 15:34 Globulin 3.8 g/dL (1.3-4.6) 05/08/23 15:34 Lipase 60 U/L (13-60) 05/08/23 15:34 Urine Color Yellow (Yellow) 05/08/23 16:34 Urine Appearance Clear (CLEAR) 05/08/23 16:34 Urine pH 5 (5-7) 05/08/23 16:34 Ur Specific Beatty 1.020 (1.005-1.030) 05/08/23 16:34 Urine Protein 1+ (Negative) H 05/08/23 16:34 Urine Glucose (UA) 1+ (Normal) H 05/08/23 16:34 Urine Ketones Negative (Negative) 05/08/23 16:34 Urine Blood Trace (Negative) H 05/08/23 16:34 Urine Nitrate Negative (Negative) 05/08/23 16:34 Urine Bilirubin Neg (Negative) 05/08/23 16:34 Urine Urobilinogen Norm mg/dL (Negative) 05/08/23 16:34 Ur Leukocyte Esterase Negative (Negative) 05/08/23 16:34 Urine RBC 0-4 /hpf (0-2) H 05/08/23 16:34 Urine WBC 0-4 /hpf (0-5) H 05/08/23 16:34 Ur Squamous Epith Cells 0-4 /hpf (0-5) H 05/08/23 16:34 Amorphous Sediment 2+ /hpf 05/08/23 16:34 Urine Bacteria None /hpf (NONE) 05/08/23 16:34 Urine Mucus 1+ /hpf 05/08/23 16:34 Coronavirus 229E (PCR) Not detected (NOT DETECT) 05/08/23 17:11 SARS-CoV-2 (PCR) Not detected (NOT DETECT) 05/08/23 17:11 Discharge Plan Discharge Patient Disposition: Admitted As Inpatient Admit Provider: Nilda Reyes Clinical Impression: Hyponatremia, Acute hypokalemia Hypertension Qualifiers: Hypertension type: unspecified Qualified Code(s): I10 - Essential (primary) hypertension Altered mental status Qualifiers: Altered mental status type: unspecified Qualified Code(s): R41.82 - Altered mental status, unspecified Condition: Stable Coding Level of Care Code ED Yield Improvement Engineer for Chg Fwd Documented by User: Mainor Rouse DO 05/08/23 19:41 HPI - General Adult General: Chief complaint: Altered Mental Status Stated complaint: AMS Time Seen by Provider: 05/08/23 14:54 PFSH ED PFSH: Medical History Abdominal pain Abdominal pain Acute kidney injury Acute kidney injury Alcohol withdrawal Anxiety Cannabinoid hyperemesis syndrome Cannabis dependence, uncomplicated CVA (cerebral vascular accident) Cyclical vomiting Cyclical vomiting Dehydration Dehydration Elevated troponin FH: cholecystectomy GI bleed Hepatitis B core antibody positive High anion gap metabolic acidosis High risk medication use Hyperemesis Hypertension Hypertensive urgency Hypochloremia Hypokalemia Hyponatremia Intractable nausea and vomiting Leukocytosis Major depressive disorder, recurrent, in partial remission Memory loss Metabolic alkalosis Nausea & vomiting Nausea and vomiting Plaque psoriasis Post-traumatic stress disorder, chronic Primary osteoarthritis of right knee Psoriatic arthritis Sepsis Tendinopathy of right rotator cuff Surgical History History of ankle surgery History of eye surgery History of hysterectomy History of pelvic surgery History of shoulder surgery History of toe surgery Family History Other CAD (coronary artery disease) Cancer Diabetes Hypertension Lung disease Social History Smoking and tobacco status: current some day smoker cigarettes Alcohol intake: current Substance/Drug Use: never Course Vital Signs: Vital signs: Vital Signs Temperature 99.1 F 05/09/23 03:37 Pulse Rate 81 05/09/23 03:37 Respiratory Rate 16 05/09/23 03:37 Blood Pressure 165/100 05/09/23 03:37 Pulse Oximetry 97 05/09/23 03:37 Oxygen Delivery Me thod Room Air 05/08/23 23:56 Oxygen Flow Rate 2 05/08/23 17:47 MDM - General Adult Medical Decision Making Patient presents to the ER with altered mental status that started yesterday and carried over into today. Patient cannot talk but chooses not to talk to most people in her room. Patient did however say a couple words to me while I was in there. Lab work was obtained which showed a white count of 17.84 sodium of 124 potassium 2.4 BUN/creatinine of 62 and 2.7. Patient was given 1 dose of Zosyn, 40 mEq potassium, 1 L normal saline, 25 of Phenergan, 4 Zofran, at that patient would benefit from inpatient mission secondary to her electrolyte abnormality and her altered mental status. was consulted who agreed to accept the patient inpatient for further evaluation and treatment. Lab Data 05/09/23 05:30 05/09/23 05:[address] 05/08/23 15:17 IMPRESSION: 1. No acute intracranial pathology identified by CT. 2. Curvilinear metallic densities are seen in the medial aspect of right orbit. Correlate with surgical history regarding nature of surgical procedure, as well as MRI compatibility. Abdomen/Pelvis CT 05/08/23 17:11 IMPRESSION: 1. No bowel obstruction, free air or focal inflammatory process identified. 2. Diffusely plump adrenal glands bilaterally, stable. Chest X-Ray 05/08/23 19:36 IMPRESSION: No acute cardiopulmonary disease identified. Toe X-Ray 05/08/23 20:08 IMPRESSION: 1. Arthrodesis at 1st metatarsophalangeal joint, 2nd, 3rd and 4th proximal interphalangeal joints. Anatomic alignment. 2. No radiographic findings osteomyelitis. Laboratory Results WBC 17.84 10^3/uL (3.29-11.43) H 05/08/23 15:34 RBC 3.47 10^6/uL (3.85-5.65) L 05/08/23 15:34 Hgb 10.50 g/dL (11.27-16.99) L 05/08/23 15:34 Hct 29.2 % (36-47) L 05/08/23 15:34 MCV 84.1 fl (85-98) L 05/08/23 15:34 MCH 30.3 pg (27-33) 05/08/23 15:34 MCHC 36.0 g/dL (30-55) 05/08/23 15:34 RDW 13.7 % (12.1-15.1) 05/08/23 15:34 Plt Count 602 10^3/cmm (157-399) H 05/08/23 15:34 MPV 9.4 fL (7.4-10.4) 05/08/23 15:34 Neut % (Auto) 93.2 % 05/08/23 15:34 Lymph % (Auto) 3.1 % 05/08/23 15:34 Stanly % (Auto) 2.8 % 05/08/23 15:34 Eos % (Auto) 0.0 % 05/08/23 15:34 Baso % (Auto) 0.1 % 05/08/23 15:34 Neut # (Auto) 16.62 10^3/uL (1.8-7.7) H 05/08/23 15:34 Lymph # (Auto) 0.6 10^3/uL (0.8-4.8) L 05/08/23 15:34 Stanly # (Auto) 0.5 10^3/uL (0.2-0.9) 05/08/23 15:34 Eos # (Auto) 0.0 10^3/uL (0.0-0.8) 05/08/23 15:34 Baso # (Auto) 0.0 10^3/uL (0.0-0.1) 05/08/23 15:34 Nucleated RBC % (auto) 0 % 05/08/23 15:34 Nucleated RBCs # 0.0 /100WBC 05/08/23 15:34 Specimen Type Arterial 05/08/23 15:44 Sample Site Radial, left 05/08/23 15:44 ABG pH 7.53 (7.35-7.45) H 05/08/23 15:44 ABG pCO2 41.1 mmHg (35-45) 05/08/23 15:44 ABG pO2 69.1 mmHg (80.0-100.0) L 05/08/23 15:44 ABG HCO3 34.5 mmol/L (22-26) H 05/08/23 15:44 ABG O2 Saturation 94.8 05/08/23 15:44 ABG Base Excess 10.8 mmol/L (-2.0-2.0) H 05/08/23 15:44 Mckinley Test Pos 05/08/23 15:44 A-a O2 Gradient 3.8 mmHg (5-10) L 05/08/23 15:44 Hematocrit 33.9 % (37-47) L 05/08/23 15:44 Hgb O2 Saturation 93.3 % (95-100) L 05/08/23 15:44 Carboxyhemoglobin 1.0 %THgb (0.4-20.1) 05/08/23 15:44 Methemoglobin 0.6 % (0.4-1.5) 05/08/23 15:44 Total Hemoglobin 11.1 g/dL (12-16) L 05/08/23 15:44 Sodium 128.0 mmol/L (131-143) L 05/08/23 15:44 Potassium 2.3 mmol/L (3.5-5.0) L 05/08/23 15:44 Glucose 126.0 mg/dL (70-115) H 05/08/23 15:44 Ionized Calcium 1.0 mmol/L (1.1-1.4) L 05/08/23 15:44 O2 Delivery Device Room air 05/08/23 15:44 FiO2 21.0 % 05/08/23 15:44 Stainless Steel Finisher ID glc 05/08/23 15:44 Sodium 124 mmol/L (136-145) L 05/08/23 15:34 Potassium 2.4 mmol/L (3.5-5.1) L* 05/08/23 15:34 Chloride 71 mmol/L (98-107) L 05/08/23 15:34 Carbon Dioxide 29 mmol/L (22-29) 05/08/23 15:34 Anion Gap 26.4 (5-19) H 05/08/23 15:34 BUN 62 mg/dL (6-20) H 05/08/23 15:34 Creatinine 2.7 mg/dL (0.5-0.9) H 05/08/23 15:34 GFR Calculation 18.3 mL/min (90-130) L 05/08/23 15:34 Glucose 127 mg/dL (65-115) H 05/08/23 15:34 Calculated Osmolality 277 mOsm/kg (285-295) L 05/08/23 15:34 Lactic Acid 1.1 mmol/L (0.5-2.2) 05/08/23 15:34 Calcium 9.2 mg/dL (8.5-10.5) 05/08/23 15:34 Total Bilirubin 0.3 mg/dL (0.15-1.2) 05/08/23 15:34 AST 19 U/L (0-32) 05/08/23 15:34 ALT 20 U/L (0-33) 05/08/23 15:34 Alkaline Phosphatase 132 U/L (35-105) H 05/08/23 15:34 Total Protein 8.5 g/dL (6.6-8.7) 05/08/23 15:34 Albumin 4.7 g/dL (3.5-5.2) 05/08/23 15:34 Globulin 3.8 g/dL (1.3-4.6) 05/08/23 15:34 Lipase 60 U/L (13-60) 05/08/23 15:34 Urine Color Yellow (Yellow) 05/08/23 16:34 Urine Appearance Clear (CLEAR) 05/08/23 16:34 Urine pH 5 (5-7) 05/08/23 16:34 Ur Specific Beatty 1.020 (1.005-1.030) 05/08/23 16:34 Urine Protein 1+ (Negative) H 05/08/23 16:34 Urine Glucose (UA) 1+ (Normal) H 05/08/23 16:34 Urine Ketones Negative (Negative) 05/08/23 16:34 Urine Blood Trace (Negative) H 05/08/23 16:34 Urine Nitrate Negative (Negative) 05/08/23 16:34 Urine Bilirubin Neg (Negative) 05/08/23 16:34 Urine Urobilinogen Norm mg/dL (Negative) 05/08/23 16:34 Ur Leukocyte Esterase Negative (Negative) 05/08/23 16:34 Urine RBC 0-4 /hpf (0-2) H 05/08/23 16:34 Urine WBC 0-4 /hpf (0-5) H 05/08/23 16:34 Ur Squamous Epith Cells 0-4 /hpf (0-5) H 05/08/23 16:34 Amorphous Sediment 2+ /hpf 05/08/23 16:34 Urine Bacteria None /hpf (NONE) 05/08/23 16:34 Urine Mucus 1+ /hpf 05/08/23 16:34 Coronavirus 229E (PCR) Not detected (NOT DETECT) 05/08/23 17:11 SARS-CoV-2 (PCR) Not detected (NOT DETECT) 05/08/23 17:11 Discharge Plan Discharge Patient Disposition: Admitted As Inpatient Admit Provider: Nilda Reyes Clinical Impression: Hyponatremia, Acute hypokalemia Hypertension Qualifiers: Hypertension type: unspecified Qualified Code(s): I10 - Essential (primary) hypertension Altered mental status Qualifiers: Altered mental status type: unspecified Qualified Code(s): R41.82 - Altered mental status, unspecified Condition: Stable Coding Level of Care Code ED Yield Improvement Engineer for 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
[2023-05-08] MEDS: hyDRALAzine 20 mg/mL INJ 1 mL IVP (17:40)
[2023-05-08] MEDS: promethazine 25 mg/mL SDV 1 mL IM (17:44)
[2023-05-08] MEDS: sodium chloride 0.9% 1,000 ML 999 ML IV (17:56)
[2023-05-08] MEDS: potassium chloride premix 100 ML 25 MEQ IV (17:57)
[2023-05-08 19:07] LABS: Adenovirus Not Detected (NOT DETECT); Chlamydia Pneumoniae Not Detected (NOT DETECT); Coronavirus 229E,HKU1,NL63,OC4 Not Detected (NOT DETECT); Human Metapneumovirus Not Detected (NOT DETECT); Human Rhinovirus/Enterovirus Not Detected (NOT DETECT); Influenza A Not Detected (NOT DETECT); Influenza A H1 Not Detected (NOT DETECT); Influenza A H1-2009 Not Detected (NOT DETECT); Influenza A H3 Not Detected (NOT DETECT); Influenza B Not Detected (NOT DETECT); Mycoplasma Pneumoniae Not Detected (NOT DETECT); Parainfluenza Virus Type 1 Not Detected (NOT DETECT); Parainfluenza Virus Type 2 Not Detected (NOT DETECT); Parainfluenza Virus Type 3 Not Detected (NOT DETECT); Parainfluenza Virus Type 4 Not Detected (NOT DETECT); Respiratory Syncytial Virus A Not Detected (NOT DETECT); Respiratory Syncytial Virus B Not Detected (NOT DETECT); SARS-COV-2 Not Detected (NOT DETECT)
[2023-05-08] MEDS: ondansetron 2 mg/ML SDV 2 mL 4 MG IVP (19:29)
--- NOTE | 2023-05-08 19:36 | XRR_ITS ---
PROCEDURE INFORMATION: Exam: XR Chest Exam date and time: 05/08/2023 7:41 PM Age: 53 years old Clinical indication: Other: AMS; Additional info: Leukocytosis TECHNIQUE: Imaging protocol: Radiologic exam of the chest. Views: 1 view. COMPARISON: CR XR chest 1V portable [id number] 12/24/2022 4:12 PM FINDINGS: Lungs: There is no pulmonary vascular congestion. There is no evidence of focal alveolar consolidation. Pleural spaces: There are no pleural effusions. There is no evidence of pneumothorax. Heart/Mediastinum: The cardiac silhouette is within normal limits. Bones/joints: No acute osseous abnormality is identified. XR/XR chest 1V portable [id number] IMPRESSION: No acute cardiopulmonary disease identified.
--- NOTE | 2023-05-08 19:58 | PC.NURSE ---
redness, warmth, and swelling noted to L big toe. Hospitalist notified.
[2023-05-08] MEDS: piperacillin-tazobactam 3.375 GM in sodium chloride 0.9% (plus) 50 ML IV (20:02)
--- NOTE | 2023-05-08 20:03 | PC.NURSE ---
pt resting in no acute distress at this time, Potassium Chloride currently running at 25 mL/hr and Zosyn infusing. pt is on color television console monitor. Family at bedside.
--- NOTE | 2023-05-08 20:08 | XRR_ITS ---
PROCEDURE INFORMATION: Exam: XR Left Toe(s) Exam date and time: 05/08/2023 8:19 PM Age: 53 years old Clinical indication: Other: R/O infection TECHNIQUE: Imaging protocol: Radiologic exam of the left toes. Views: Minimum 2 views. COMPARISON: No relevant prior studies available. FINDINGS: Bones/joints: Arthrodesis at the 1st metatarsophalangeal joint, as well as 2nd through 4th proximal interphalangeal joints. Alignment is anatomic. There are new definite radiographic findings of osteomyelitis. No acute fracture is seen. Soft tissues: Normal. XR/XR toe LT min 2V [id number] IMPRESSION: 1. Arthrodesis at 1st metatarsophalangeal joint, 2nd, 3rd and 4th proximal interphalangeal joints. Anatomic alignment. 2. No radiographic findings osteomyelitis.
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
--- NOTE | 2023-05-08 20:35 | PC.NURSE ---
per family at bedside, pts baseline is aox4. pt normally drives herself and pt lives alone. pt normally able to complete ADLs efficiently
[2023-05-08] MEDS: sodium chloride 0.9% 1,000 ML 75 ML IV (22:23)
--- NOTE | 2023-05-08 22:26 | ECG_ITS ---
[facility] Test Date: 2023-05-08 Pat Name: Rachelle Mireles Department: Room: 252 Gender: Female Radiology Orderly: : 1970 Requested By: Nilda Reyes Order Number: [id number] Michael MD: Ramez Bustillos M.D. Measurements Intervals Paulina Rate: 94 P: 0 WA: 0 QRS: 10 QRSD: 105 T: 4 QT: 315 QTc: 394 Interpretive Statements Sinus rhythm with short WA interval, frequent PACs NONSPECIFIC ST & T-WAVE ABNORMALITY ABNORMAL RHYTHM ECG Compared to ECG 01/10/2023 01:10:19 T-wave abnormality now present Sinus tachycardia no longer present Electronically Signed On 05-09-2023 21:27:50 CDT by Ramez Bustillos M.D. [id number]
[2023-05-08] MEDS: pantoprazole 40 mg SDV IVP (22:27)
[2023-05-08] MEDS: potassium chloride ER 20 mEq Tablet 40 MEQ PO (22:28)
[2023-05-08] MEDS: metoprolol tartrate 50 mg Tablet PO (22:28)
--- NOTE | 2023-05-08 22:56 | PC.NURSE ---
Patient took PO potassium and then vomited directly after. This nurse notified Dr. Reyes and explained that patient vomited and did not do well swallowing the pills, order received to dc PO potassium and do 2 more bags of IV potassium 40meq Q6H.
[2023-05-09] VITALS (7 sets, daily range): BP systolic 92–183; BP diastolic 62–100; PULSE 65–103; RESP 15–17; TEMP 36.4–37.3; O2SAT 92–99
[2023-05-09] MEDS: lidocaine 1% 5 ML in potassium chloride premix 100 ML 26.25 ML IV ×3 (00:29→15:43)
[2023-05-09] MEDS: piperacillin-tazobactam 3.375 GM in sodium chloride 0.9% (plus) 50 ML IV ×3 (02:30→17:17)
[2023-05-09 05:47] LABS: Basophils % 0.2 %; Eosinophils % 0.3 %; Hematocrit 29.5 % (36-47); Lymphocytes # 1.2 10^3/uL (0.8-4.8); Lymphocytes % 10.4 %; Mean Corpuscular HGB Conc 34.2 g/dL (30-55); Mean Corpuscular Hemoglobin 30.2 pg (27-33); Mean Corpuscular Volume 88.3 fl (85-98); Mean Platelet Volume 9.1 fL (7.4-10.4); Monocytes # 0.8 10^3/uL (0.2-0.9); Monocytes % 6.7 %; Neutrophils # 9.66 10^3/uL (1.8-7.7); Neutrophils % 81.4 %; Nucleated Red Blood Cells % 0 %; Platelet Count 538 10^3/cmm (157-399); Red Blood Count 3.34 10^6/uL (3.85-5.65); Red Cell Distribution Width 14.3 % (12.1-15.1); White Blood Count 11.87 10^3/uL (3.29-11.43)
[2023-05-09 06:11] LABS: Alanine Aminotransferase 18 U/L (0-33); Albumin Level 4.3 g/dL (3.5-5.2); Alkaline Phosphatase 115 U/L (35-105); Aspartate Amino Transferase 18 U/L (0-32); Blood Urea Nitrogen 45 mg/dL (6-20); Calcium 9.1 mg/dL (8.5-10.5); Carbon Dioxide 30 mmol/L (22-29); Chloride 87 mmol/L (98-107); Globulin 3.1 g/dL (1.3-4.6); Glomerular Filtration Rate 23.2 mL/min (90-130); Glucose 95 mg/dL (65-115); Magnesium 2.6 mg/dL (1.7-2.3); Osmolality Calculated 287 mOsm/kg (285-295); Sodium 133 mmol/L (136-145); Total Bilirubin 0.3 mg/dL (0.15-1.2); Total Protein 7.4 g/dL (6.6-8.7)
[2023-05-09] MEDS: metoprolol tartrate 50 mg Tablet PO ×2 (09:41→21:56)
[2023-05-09] MEDS: duloxetine 60 mg Capsule PO ×2 (09:41→17:17)
[2023-05-09] MEDS: pantoprazole 40 mg SDV IVP ×2 (09:41→21:38)
[2023-05-09] MEDS: pregabalin 75 mg Capsule PO (09:41)
[2023-05-09] MEDS: amlodipine 10 mg Tablet PO (09:41)
[2023-05-09] MEDS: ondansetron 2 mg/ML SDV 2 mL 4 MG IVP (09:44)
--- NOTE | 2023-05-09 10:07 | PC.CHAP ---
Pastoral Care Encounter/Spiritual Assessment Type of Contact [x] Declined stroboroma operator visit [] Patient/Family/Request visit [] Outpatient visit [] Follow-up visit [] Physician referral [] Code/Alert [] Routine visit [] Staff referral [] Actively dying [] Patient sleeping [] Family support [] [] Out of room [] Palliative care [] [] Receiving care in room [] Pre-surgical visit [] Trauma [] Long length of stay [] ICU visit [] Other: Relational/Emotional Strength [] Patient feels connected with others/family/visitors/staff [] Distress [] Loneliness/isolation [] Abandonment Spirituality of Patient [] Person of Ceci [] Attends Synagogue of their Ceci [] Believes in Prayer [] Reads Bible or Religion materials [] There are Spiritual issues to be addressed Plate Conditioner Interventions [] Prayer [] Active listening [] Non-anxious presence [] Spiritual/emotional support [] Crisis/trauma care [] Spiritual counseling [] Bereavement support [] Provided bereavement packet [] Provided Bible/devotional materials [] Provided toy/stuffed animal, coloring book to patient or family member [] Provided Communion [] Anointing/[place] [] Salvation [] Completed spiritual assessment [] Other: Impact on Illness or Injury [] Angry [] Fearful [] Anxious [] Often cries [] Exhaustion [] Unable to work [] Unable to attend caodaism [] Unable to walk/stand [] Unable to read [] Unable to drive [] Unable to eat/drink [] Unable to sleep [] Unable to be with family [] Patient intubated [] Other: Summary Declined stroboroma operator visit Time spent with patient 5 mins
[2023-05-09] MEDS: sodium chloride 0.9% 1,000 ML 75 ML IV ×2 (11:10→22:14)
--- NOTE | 2023-05-09 15:05 | P.PN_ITS ---
Subjective Subjective: Patient is alert awake oriented able to answer all my questions, however continues to have significant memory gaps. Her speech is slow and pressured. She does not appear to be at her baseline based on my assessment from seeing her in outpatient clinic previously in the past for unrelated reasons. She is no longer vomiting. Denies any pain. Denies diarrhea. Sodium is improved at 133. Potassium improved to 3.0. Urine drug screen ordered now. Review of outpatient PCP records shows that patient was diagnosed recently with osteomyelitis for which she was on linezolid, however patient unable to give me any details regarding the same. She thinks her osteomyelitis happened last year. Does not recall her medications Medications: Reviewed: Yes Vitals/I&O/Wt Last Vital Signs Temp 98.0 F 05/09/23 11:26 Pulse 65 05/09/23 11:26 Resp 15 05/09/23 11:26 BP 137/93 05/09/23 11:26 Pulse Ox 96 05/09/23 11:26 O2 Del Method Room Air 05/09/23 11:26 O2 Flow Rate 2 05/08/23 17:47 05/09/23 05/09/23 05/09/23 06:59 14:59 22:59 Intake Total 155 / 1305 1113.75 / 1113.75 Output Total 650 / 950 Balance -495 / 355 1113.75 / 1113.75 Weight last 48 hrs Weight 72.575 kg Physical Exam Narrative: General: Lying in bed, no acute distress HEENT: PERRLA, pupils bilaterally equal , mid dilated Chest: Normal vesicular breath sounds, no added sounds, equal good air entry bilaterally CVS: S1-S2 regular, no murmurs, no tachycardia, no gallops, no rubs Abdomen: Soft, nontender, no organomegaly, bowel sounds present Neuro: No focal deficits, no facial deformity, AO x3, power 5/5 in all limbs Urinary Catheter Management: Abel: Cath Placed During This Visit: yes Reason for Continuing Indwelling Catheter: Other Urinary Catheter Time of Insertion: 16:36 Data 05/09/23 05:30 05/09/23 05:30 Micro: Microbiology 05/08/23 15:42 Blood Culture - Preliminary Blood SPECIMEN COLLECTED 05/08/23 15:34 Blood Culture - Preliminary Blood SPECIMEN COLLECTED A&P Assessment and plan (1) Altered mental status: This appears to be improving though not quite at baseline yet. Suspect may be related to hyponatremia and dehydration. Continue IV fluids. CT head without acute intracranial pathology. Check urine drug screen Alcohol level not available from admission. Patient denies drinking any alcohol recently. Denies any recent change in her medications. Hold Lyrica and baclofen for now and assess for improvement in mentation. Continue duloxetine. Discontinue linezolid, it appears patient was taking this for a recent diagnosis of osteomyelitis. Review of medication shows patient is on Cymbalta as outpatient. Cannot rule out possibility of serotonin syndrome with concomitant use of linezolid and duloxetine. Blood pressure upon admission was noted to be 191/2010, possibility of PRES not excluded at this time. Currently blood pressure is better controlled after receiving amlodipine this morning Qualifiers: Altered mental status type: unspecified Qualified Code(s): R41.82 - Altered mental status, unspecified (2) Hyponatremia: Likely secondary to dehydration. Patient has a known history of cyclical vomiting, which may have contributed to her current symptoms. (3) Acute hypokalemia: Likely related to dehydration and volume loss. Repleted with IV (4) Cellulitis of great toe, left: Patient has a recently healed ulcer over the area of the left great toe. Per review of PCPs note she was recently treated at [facility] for osteomyelitis of the left toe. She is on linezolid for this. We will try to obtain records. At any rate at this point in time she is completed at least 6 weeks of antibiotics therefore we will go ahead and discontinue. X-ray taken overnight without any osteolytic destruction to suggest osteomyelitis. No gross cellulitic changes at this time. We will continue piperacillin/tazobactam for now while undergoing infectious evaluation (5) LEVY (acute kidney injury): Likely related to dehydration and volume loss Recheck creatinine with hydration with a.m. labs Attestations Medical Necessity Statement*: Iv fluids, Iv potassium replacement, trend sodium, monitor mental status Coding Level of Care Code Acute Code for Chg Fwd Moderate MDM includes number and complexity of problems actively addressed during encounter, amount and/or complexity of data reviewed/ordered and described risk of complication, morbidity or mortality of management as documented Diagnoses Altered mental status R41.82 Altered mental status type: unspecified Hyponatremia E87.1 Acute hypokalemia E87.6 Cellulitis of great toe, left L03.032 LEVY (acute kidney injury) N17.9
[2023-05-09 15:09] LABS: Amphetamines Screen Urine Negative (Negative); Barbiturates Screen Urine Negative (Negative); Benzodiazepines Screen Urine Negative (Negative); Cocaine Screen Urine Negative (Negative); Opiate Screen Urine Negative (Negative); PCP Screen Urine Negative (Negative); THC Screen Urine Positive (Negative)
[2023-05-10] MEDS: piperacillin-tazobactam 3.375 GM in sodium chloride 0.9% (plus) 50 ML IV ×2 (02:06→09:45)
[2023-05-10 03:46] VITALS: BP 100/65; PULSE 63; RESP 16; TEMP 37.2; O2SAT 94
[2023-05-10 05:22] LABS: Basophils % 0.3 %; Eosinophils # 0.4 10^3/uL (0.0-0.8); Eosinophils % 3.3 %; Lymphocytes # 2.5 10^3/uL (0.8-4.8); Lymphocytes % 22.8 %; Mean Corpuscular HGB Conc 32.8 g/dL (30-55); Mean Corpuscular Volume 91.6 fl (85-98); Mean Platelet Volume 9.4 fL (7.4-10.4); Monocytes # 0.8 10^3/uL (0.2-0.9); Monocytes % 7.4 %; Neutrophils # 7.29 10^3/uL (1.8-7.7); Neutrophils % 65.3 %; Nucleated Red Blood Cells % 0 %; Platelet Count 500 10^3/cmm (157-399); Red Blood Count 2.73 10^6/uL (3.85-5.65); White Blood Count 11.15 10^3/uL (3.29-11.43)
[2023-05-10 05:45] LABS: Alanine Aminotransferase 15 U/L (0-33); Albumin Level 3.5 g/dL (3.5-5.2); Alkaline Phosphatase 87 U/L (35-105); Anion Gap 13.7 (5-19); Aspartate Amino Transferase 13 U/L (0-32); Blood Urea Nitrogen 32 mg/dL (6-20); Calcium 8.7 mg/dL (8.5-10.5); Carbon Dioxide 27 mmol/L (22-29); Chloride 93 mmol/L (98-107); Globulin 2.4 g/dL (1.3-4.6); Glomerular Filtration Rate 31.2 mL/min (90-130); Glucose 81 mg/dL (65-115); Osmolality Calculated 276 mOsm/kg (285-295); Potassium 3.7 mmol/L (3.5-5.1); Sodium 130 mmol/L (136-145); Total Bilirubin 0.2 mg/dL (0.15-1.2); Total Protein 5.9 g/dL (6.6-8.7)
[2023-05-10 05:54] LABS: Creatinine Clr Calc Pharmacy 38.1378
[2023-05-10] MEDS: aspirin 81 mg EC Tablet PO (05:59)
[2023-05-10 08:00] VITALS: BP 122/68; PULSE 74; RESP 17; TEMP 36.6; O2SAT 93
[2023-05-10 08:31] VITALS: PULSE 70; RESP 14; O2SAT 93
[2023-05-10] MEDS: amlodipine 10 mg Tablet PO (09:42)
[2023-05-10] MEDS: pantoprazole 40 mg SDV IVP (09:43)
[2023-05-10] MEDS: duloxetine 60 mg Capsule PO (09:43)
[2023-05-10] MEDS: metoprolol tartrate 50 mg Tablet PO (09:45)
[2023-05-10 11:18] VITALS: BP 108/73; PULSE 71; RESP 16; TEMP 36.7; O2SAT 94
[2023-05-10] MEDS: sodium chloride 0.9% 1,000 ML 75 ML IV (11:48)
[2023-05-10 12:15] LABS: Iron 50 ug/dL (37-145)
[2023-05-10 12:29] LABS: Vitamin B12 1175 pg/mL (232-1245)
[2023-05-10 12:30] LABS: Folate Level < 20.0 ng/mL (4.8-37.3)
--- NOTE | 2023-05-10 14:20 | P.DS_ITS ---
Discharge Providers Date of Admission: 05/08/23 19:57 Date of Discharge: May 10, 2023 Attending Provider at Admission: Nilda Reyes MD Attending Provider at Discharge: Angelina Pedraza MD Primary Care Provider: Bucky Rogers MD Diagnoses at Discharge Discharge Diagnosis (1) Altered mental status: Status: Acute Qualifiers: Altered mental status type: unspecified Qualified Code(s): R41.82 - Altered mental status, unspecified (2) Hyponatremia: Status: Acute (3) Acute hypokalemia: Status: Acute (4) Cellulitis of great toe, left: Status: Acute (5) LEVY (acute kidney injury): Status: Acute Reason for Visit Reason for Visit: [facility] Hospital Course Hospital Course Rachelle Mireles is a 53 year old female with history of GERD depression hypertension psoriasis CVA posttraumatic stress disorder was brought in by the family for complaint of confusion and vomiting.? They found her sitting on the floor unable to get up. Earlier during course of admission she was confused, unable to have a normal conversation. She was found to have multiple electrolyte abnormalities including hyponatremia hypokalemia. CT of the head was without acute intracranial pathology. Urine drug screen was positive positive for marijuana, negative for opiates. There has been no recent changes in her medications. Patient had recently been treated for osteomyelitis at [facility] with IV vancomycin transition to oral linezolid and had been on antibiotics for about 6 weeks at this point in time. She was admitted, received IV hydration, electrolyte abnormalities were corrected. Due to concern for possible foot infection she received IV piperacillin/tazobactam and vancomycin. With these interventions her mental status continued to improve. On the day of discharge she is alert awake oriented well-hydrated and eager to return home. Her nausea has been under good control in the hospital. Possible differentials for her presentation include cyclical vomiting leading to extensive GI losses and dehydration causing mentation changes, possible polypharmacy , hyponatremia, possible press, possibly serotonin syndrome due to drug interaction between SSRIs and linezolid given that patient was hypertensive confused and delirious upon admission. Linezolid has been discontinued at discharge as patient has completed an adequate treatment course. X-ray of the foot did not currently show any evidence of osteomyelitis. She is being referred to see podiatry for maintenance foot care going forward. Patient has a history of degenerative psoriatic arthritis, history of multiple foot surgeries and recent had a wound over her foot for which she followed with wound care. An open sore which over her first metatarsal has completely healed over. I do not see any gross cellulitic changes today therefore antibiotics have been discontinued at the time of discharge. She would benefit from foot care with podiatry going forward. Incidentally hemoglobin dropped to 8.2 at the time of discharge, suspect this is dilutional related to IV hydration. No history of hematemesis or melena. Fecal occult blood testing was ordered but remains pending. She takes iron supplementation as outpatient. Recommended to repeat hemoglobin as outpatient with primary care physician in the next week to ensure stability. Physical Exam Narrative: General: No acute distress, AO x3 HEENT: PERRLA, pupils bilaterally equal and reactive, pallors not present Chest: Normal vesicular breath sounds, no added sounds, equal good air entry bilaterally CVS: S1-S2 regular, no murmurs, no tachycardia, no gallops, no rubs Abdomen: Soft, nontender, no organomegaly, bowel sounds present Neuro: No focal deficits, no facial deformity, AO x3, power 5/5 in all limbs Extremities: no signs of cellilitis on feet currently. Multiple healed scars from prior surgeries Urinary Catheter Management: Abel: Cath Placed During This Visit: yes Reason for Continuing Indwelling Catheter: Other Urinary Catheter Time of Insertion: 16:36 Discharge Data Studies Completed and Pending Completed Studies During Hospitalization Category Date Time Status CT abdomen pelvis wo con [id number] Stat Cat Scan 05/08/23 17:[address] head wo con* [id number] Stat Cat Scan 05/08/23 15:17 Completed XR chest 1V portable [id number] Stat Exams 05/08/23 19:36 Completed XR toe LT min 2V [id number] Routine Exams 05/08/23 20:08 Completed Pending at discharge Category Date Time Status Blood Culture Stat Lab 05/08/23 15:42 Results Fecal Occult Blood [Immunochemical Fecal OCB] Stat Lab 05/10/23 11:41 Uncollected Reticulocyte Production Index AM LABS Lab 05/11/23 04:00 Ordered Radiology Impressions Head CT 05/08/23 15:17 IMPRESSION: 1. No acute intracranial pathology identified by CT. 2. Curvilinear metallic densities are seen in the medial aspect of right orbit. Correlate with surgical history regarding nature of surgical procedure, as well as MRI compatibility. Abdomen/Pelvis CT 05/08/23 17:11 IMPRESSION: 1. No bowel obstruction, free air or focal inflammatory process identified. 2. Diffusely plump adrenal glands bilaterally, stable. Chest X-Ray 05/08/23 19:36 IMPRESSION: No acute cardiopulmonary disease identified. Toe X-Ray 05/08/23 20:08 IMPRESSION: 1. Arthrodesis at 1st metatarsophalangeal joint, 2nd, 3rd and 4th proximal interphalangeal joints. Anatomic alignment. 2. No radiographic findings osteomyelitis. Laboratory Results WBC 11.15 10^3/uL (3.29-11.43) 05/10/23 04:00 RBC 2.73 10^6/uL (3.85-5.65) L 05/10/23 04:00 Hgb 8.20 g/dL (11.27-16.99) L 05/10/23 04:00 Hct 25.0 % (36-47) L 05/10/23 04:00 MCV 91.6 fl (85-98) 05/10/23 04:00 MCH 30.0 pg (27-33) 05/10/23 04:00 MCHC 32.8 g/dL (30-55) 05/10/23 04:00 RDW 15.0 % (12.1-15.1) 05/10/23 04:00 Plt Count 500 10^3/cmm (157-399) H 05/10/23 04:00 MPV 9.4 fL (7.4-10.4) 05/10/23 04:00 Neut % (Auto) 65.3 % 05/10/23 04:00 Lymph % (Auto) 22.8 % 05/10/23 04:00 Emery % (Auto) 7.4 % 05/10/23 04:00 Eos % (Auto) 3.3 % 05/10/23 04:00 Baso % (Auto) 0.3 % 05/10/23 04:00 Neut # (Auto) 7.29 10^3/uL (1.8-7.7) 05/10/23 04:00 Lymph # (Auto) 2.5 10^3/uL (0.8-4.8) 05/10/23 04:00 Emery # (Auto) 0.8 10^3/uL (0.2-0.9) 05/10/23 04:00 Eos # (Auto) 0.4 10^3/uL (0.0-0.8) 05/10/23 04:00 Baso # (Auto) 0.0 10^3/uL (0.0-0.1) 05/10/23 04:00 Nucleated RBC % (auto) 0 % 05/10/23 04:00 Nucleated RBCs # 0.0 /100WBC 05/10/23 04:00 Specimen Type Arterial 05/08/23 15:44 Sample Site Radial, left 05/08/23 15:44 ABG pH 7.53 (7.35-7.45) H 05/08/23 15:44 ABG pCO2 41.1 mmHg (35-45) 05/08/23 15:44 ABG pO2 69.1 mmHg (80.0-100.0) L 05/08/23 15:44 ABG HCO3 34.5 mmol/L (22-26) H 05/08/23 15:44 ABG O2 Saturation 94.8 05/08/23 15:44 ABG Base Excess 10.8 mmol/L (-2.0-2.0) H 05/08/23 15:44 Mckinley Test Pos 05/08/23 15:44 A-a O2 Gradient 3.8 mmHg (5-10) L 05/08/23 15:44 Hematocrit 33.9 % (37-47) L 05/08/23 15:44 Hgb O2 Saturation 93.3 % (95-100) L 05/08/23 15:44 Carboxyhemoglobin 1.0 %THgb (0.4-20.1) 05/08/23 15:44 Methemoglobin 0.6 % (0.4-1.5) 05/08/23 15:44 Total Hemoglobin 11.1 g/dL (12-16) L 05/08/23 15:44 Sodium 128.0 mmol/L (131-143) L 05/08/23 15:44 Potassium 2.3 mmol/L (3.5-5.0) L 05/08/23 15:44 Glucose 126.0 mg/dL (70-115) H 05/08/23 15:44 Ionized Calcium 1.0 mmol/L (1.1-1.4) L 05/08/23 15:44 O2 Delivery Device Room air 05/08/23 15:44 FiO2 21.0 % 05/08/23 15:44 Business Continuity Management Director ID [email or web address] 05/08/23 15:44 Sodium 130 mmol/L (136-145) L 05/10/23 04:00 Potassium 3.7 mmol/L (3.5-5.1) 05/10/23 04:00 Chloride 93 mmol/L (98-107) L 05/10/23 04:00 Carbon Dioxide 27 mmol/L (22-29) 05/10/23 04:00 Anion Gap 13.7 (5-19) 05/10/23 04:00 BUN 32 mg/dL (6-20) H 05/10/23 04:00 Creatinine 1.7 mg/dL (0.5-0.9) H 05/10/23 04:00 GFR Calculation 31.2 mL/min (90-130) L 05/10/23 04:00 Glucose 81 mg/dL (65-115) 05/10/23 04:00 Calculated Osmolality 276 mOsm/kg (285-295) L 05/10/23 04:00 Lactic Acid 1.1 mmol/L (0.5-2.2) 05/08/23 15:34 Calcium 8.7 mg/dL (8.5-10.5) 05/10/23 04:00 Magnesium 2.6 mg/dL (1.7-2.3) H 05/09/23 05:30 Iron 50 ug/dL (37-145) 05/10/23 04:00 Total Bilirubin 0.2 mg/dL (0.15-1.2) 05/10/23 04:00 AST 13 U/L (0-32) 05/10/23 04:00 ALT 15 U/L (0-33) 05/10/23 04:00 Alkaline Phosphatase 87 U/L (35-105) 05/10/23 04:00 Total Protein 5.9 g/dL (6.6-8.7) L D 05/10/23 04:00 Albumin 3.5 g/dL (3.5-5.2) 05/10/23 04:00 Globulin 2.4 g/dL (1.3-4.6) 05/10/23 04:00 Lipase 60 U/L (13-60) 05/08/23 15:34 Vitamin B12 1175 pg/mL (232-1245) 05/10/23 04:00 Folate < 20.0 ng/mL (4.8-37.3) 05/10/23 04:00 Urine Color Yellow (Yellow) 05/08/23 16:34 Urine Appearance Clear (CLEAR) 05/08/23 16:34 Urine pH 5 (5-7) 05/08/23 16:34 Ur Specific [place] 1.020 (1.005-1.030) 05/08/23 16:34 Urine Protein 1+ (Negative) H 05/08/23 16:34 Urine Glucose (UA) 1+ (Normal) H 05/08/23 16:34 Urine Ketones Negative (Negative) 05/08/23 16:34 Urine Blood Trace (Negative) H 05/08/23 16:34 Urine Nitrate Negative (Negative) 05/08/23 16:34 Urine Bilirubin Neg (Negative) 05/08/23 16:34 Urine Urobilinogen Norm mg/dL (Negative) 05/08/23 16:34 Ur Leukocyte Esterase Negative (Negative) 05/08/23 16:34 Urine RBC 0-4 /hpf (0-2) H 05/08/23 16:34 Urine WBC 0-4 /hpf (0-5) H 05/08/23 16:34 Ur Squamous Epith Cells 0-4 /hpf (0-5) H 05/08/23 16:34 Amorphous Sediment 2+ /hpf 05/08/23 16:34 Urine Bacteria None /hpf (NONE) 05/08/23 16:34 Urine Mucus 1+ /hpf 05/08/23 16:34 Urine Opiates Screen Negative ng/mL (Negative) 05/08/23 16:34 Ur Barbiturates Screen Negative ng/mL (Negative) 05/08/23 16:34 Ur Phencyclidine Scrn Negative ng/mL (Negative) 05/08/23 16:34 Ur Amphetamines Screen Negative ng/mL (Negative) 05/08/23 16:34 U Benzodiazepines Scrn Negative ng/mL (Negative) 05/08/23 16:34 Urine Cocaine Screen Negative ng/mL (Negative) 05/08/23 16:34 U Marijuana (THC) Screen Positive ng/mL (Negative) H 05/08/23 16:34 Coronavirus 229E (PCR) Not detected (NOT DETECT) 05/08/23 17:11 SARS-CoV-2 (PCR) Not detected (NOT DETECT) 05/08/23 17:11 Vitals Last Vital Signs Temp 98.1 F 05/10/23 11:18 Pulse 71 05/10/23 11:18 Resp 16 05/10/23 11:18 BP 108/73 05/10/23 11:18 Pulse Ox 94 05/10/23 11:18 O2 Del Method Room Air 05/10/23 08:31 O2 Flow Rate 2 05/08/23 17:47 Discharge Plan Discharge Patient Disposition: Home Condition: Stable Prescriptions: Continued (DME) Hinged knee brace See Rx Instructions .Route .MEDSUPPLY Qty: 1 0RF Rx Instructions: As directed Cymbalta 60 mg capsule,delayed release(DR/EC) 60 mg PO BID Qty: 60 0RF Cosentyx Pen (2 Pens) 150 mg/mL pen injector 300 mg SUBCUT DIRECTED Qty: 2 4RF Rx Instructions: Start 300 mg SC q week x 5 weeks; then q 4 weeks for maintenance albuterol sulfate [Ventolin HFA] 90 mcg/actuation Hfa Aerosol Inhaler 1 - 2 puff INHALATION QID PRN (Reason: Shortness Of Breath) pantoprazole 40 mg tablet,delayed release (DR/EC) 40 mg PO BID ascorbic acid (vitamin C) [Vitamin C] 500 mg Tablet 500 mg PO QAM alum-mag hydroxide-simeth [Maalox Maximum Strength] 400-400-40 mg/5 mL suspension 2.5 ml PO Q3H PRN (Reason: indigestion) Qty: 3000 0RF ondansetron 4 mg tablet,disintegrating 4 mg PO Q6H PRN (Reason: nausea and vomiting) Qty: 14 0RF aspirin 81 mg tablet,delayed release (DR/EC) 81 mg PO QAM clobetasol 0.05 % solution See Rx Instructions .ROUTE .COMPLEX Rx Instructions: Apply a few drops to itchy areas on scalp as needed pregabalin 75 mg capsule 75 mg PO BID [id number] carb-vit K 18 mg iron-400 mcg-500 mg Tablet 1 tab PO DAILY metoprolol tartrate 50 mg Tablet 50 mg PO BID@0900,2100 Qty: 60 0RF amlodipine 10 mg tablet 10 mg PO DAILY Qty: 30 3RF sodium chloride 1,000 mg tablet,soluble 1,000 mg PO BID Qty: 6 0RF promethazine 25 mg tablet 25 mg PO Q6H PRN (Reason: Nausea) Qty: 10 0RF meloxicam 15 mg Tablet 15 mg PO DAILY PRN (Reason: Pain) tramadol 50 mg tablet 50 mg PO TID PRN (Reason: Pain) Elidel 1 % cream 1 applic topical BID PRN (Reason: unknown) Rx Instructions: Apply to affected area on eyelids twice daily Discontinued baclofen 20 mg Tablet 20 mg PO TID PRN (Reason: Muscle Spasm) clindamycin HCl 300 mg capsule 300 mg PO TID Rx Instructions: for 10 days (rx filled 05/03/23) famotidine [Pepcid] 20 mg Tablet 20 mg PO BID Rx Instructions: for 10 days (rx filled 04/11/23 son states bottle was full) linezolid 600 mg tablet 600 mg PO Q12H Rx Instructions: for 14 days (rx filled 04/05/23) indomethacin 25 mg capsule 25 mg PO TID PRN (Reason: Pain) Discharge Orders: Discharge Order (Routine); Ordered 05/10/23 Ordered By: Angelina Pedraza Referrals: Bucky Rogers MD [Primary Care Provider] - 05/13/23 11:30 am (hospital discharge follow up ) Eleuterio Cline DPM [Physician] - 7-10 days (psoriatic arthritis, h/o multiple foot surgeries with ulceration and recent osteomyelitis s/p treatment- follow up for [facility] We have notified your physician's clinic of the need for a follow-up appointment to be scheduled. If you have not heard from them within the next 2 business days, please call them directly. You may also reach out to our technical manager at [phone] and she can assist you.) Discharge Diet: Advance as tolerated Discharge Activity: Resume usual activity Patient Instructions: Cellulitis, Hypokalemia, Hyponatremia, Acute Kidney Injury (GEN), Opioid Safety Discharge Attestations Time Spent in Discharge Care*: greater than 30 min Status at Discharge: Cognitive status at discharge: cognitively intact , Behavioral status at discharge: cooperative , Quality Metrics Clinical Quality Measures [ No reported AMI, CVA or VTE this stay] Coding Level of Care Code Acute Code for Chg Fwd Diagnoses Altered mental status R41.82 Altered mental status type: unspecified Hyponatremia E87.1 Acute hypokalemia E87.6 Cellulitis of great toe, left L03.032 LEVY (acute kidney injury) N17.9
[2023-05-10 15:59] VITALS: BP 108/73; PULSE 71; RESP 16; TEMP 36.7; O2SAT 94
== END 2023-05-10 16:04 | disposition home or self-care (01) | DRG 603 ==
LOC: ER 19:41 → MEDSURG 19:57
PROVIDERS: Admitting Provider Internal Medicine; Emergency Provider Family Medicine; PCP Family Medicine; Visit Provider Student in an Organized Health Care Education/Training Program
DX: L03.032 Cellulitis of left toe (principal); E87.1 Hypo-osmolality and hyponatremia; N17.9 Acute kidney failure, unspecified; R41.82 Altered mental status, unspecified; K21.9 Gastro-esophageal reflux disease without esophagitis; F33.41 Major depressive disorder, recurrent, in partial remission; I10 Essential (primary) hypertension; L40.50 Arthropathic psoriasis, unspecified; Z86.73 Personal history of transient ischemic attack (TIA), and cerebral infarction without residual deficits; F43.12 Post-traumatic stress disorder, chronic; E87.6 Hypokalemia; F12.20 Cannabis dependence, uncomplicated; E86.0 Dehydration; Z79.51 Long term (current) use of inhaled steroids; Z79.82 Long term (current) use of aspirin; Z79.891 Long term (current) use of opiate analgesic; F41.9 Anxiety disorder, unspecified; F17.210 Nicotine dependence, cigarettes, uncomplicated
CPT/HCPCS: 36415; 36573; 36592; 36600; 51702; 70450; 71045; 73600; 73630; 73660; 74176; 77336; 77386; 80048; 80051; 80053; 80202; 80306; 81001; 81003; 82330; 82550; 82607; 82746; 82805; 83540; 83605; 83690; 83735; 84100; 84550; 85014; 85018; 85025; 85651; 86140; 87040; 87070; 87075; 87077; 87186; 87205; 87635; 88307; 88311; 93005; 96365; 96366; 96367; 96372; 96375; 96413; 96417; 99024; 99204; 99285; C9113; J0360; J0878; J1100; J1170; J1200; J2250; J2270; J2405; J2469; J2543; J2550; J2704; J3010; J3370; J3480; J3490; J7030; J7040; J7050; J9045; J9267; Q0169

== ENCOUNTER → 2023-05-13 09:49 | Outpatient (BNVA) | payer MEDICARE, MEDICAID, SELFPAY | PROVIDERS: PCP Family Medicine; Visit Provider Podiatrist Foot & Ankle Surgery | DX: L03.116 Cellulitis of left lower limb (principal); M10.9 Gout, unspecified; M96.0 Pseudarthrosis after fusion or arthrodesis; M25.572 Pain in left ankle and joints of left foot; M79.672 Pain in left foot | CPT/HCPCS: 73030; 73600; 73630; 99204 ==

== ENCOUNTER 2023-05-13 14:14 | Inpatient (IN) | payer MEDICARE, MEDICAID, SELFPAY ==
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
[2023-05-13 16:29] VITALS: BP 106/82; PULSE 89; RESP 17; TEMP 36.8; O2SAT 93
[2023-05-13 16:33] VITALS: BP 106/82; PULSE 89; RESP 17; TEMP 36.8; O2SAT 93
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
--- NOTE | 2023-05-13 17:48 | ECG_ITS ---
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 Measurements Intervals [place] Rate: 71 P: 3 SC: 128 QRS: 35 QRSD: 89 T: 18 QT: 378 QTc: 413 Interpretive Statements SINUS RHYTHM Compared to ECG 05/08/2023 22:26:34 Short SC interval no longer present T-wave abnormality no longer present Electronically Signed On 05-14-2023 9:49:09 CDT by Harsha Felipe M.D. [id number]
[2023-05-13] MEDS: HYDROcodone-acetaminophen 5-325 mg Tablet PO ×2 (17:54→21:57)
[2023-05-13] MEDS: docusate sodium 100 mg Capsule PO (17:55)
[2023-05-13] MEDS: pantoprazole DR 40 mg Tablet PO (17:55)
[2023-05-13 19:31] VITALS: BP 101/67; PULSE 83; RESP 16; TEMP 36.6; O2SAT 98
[2023-05-13] MEDS: metoprolol tartrate 25 mg Tablet PO (20:38)
[2023-05-14] VITALS (15 sets, daily range): BP systolic 85–151; BP diastolic 47–82; PULSE 64–97; RESP 14–20; TEMP 36.1–37.3; O2SAT 91–98; BMI 26.6
[2023-05-14 00:25] LABS: Lactic Sepsis W/Reflex 1.8 mmol/L (0.5-2.2)
[2023-05-14 00:26] LABS: Anion Gap 14.2 (5-19); Blood Urea Nitrogen 15 mg/dL (6-20); Calcium 8.9 mg/dL (8.5-10.5); Carbon Dioxide 21 mmol/L (22-29); Chloride 100 mmol/L (98-107); Glomerular Filtration Rate 57.6 mL/min (90-130); Glucose 103 mg/dL (65-115); Magnesium 1.8 mg/dL (1.7-2.3); Osmolality Calculated 273 mOsm/kg (285-295); Phosphorus 3.5 mg/dL (2.5-4.5); Potassium 4.2 mmol/L (3.5-5.1); Sodium 131 mmol/L (136-145)
[2023-05-14] MEDS: D5-NS 0.45% + KCL 20 mEq 20 MEQ/1,000 ML BAG 75 MEQ IV ×2 (01:11→20:11)
[2023-05-14] MEDS: piperacillin-tazobactam 3.375 GM in sodium chloride 0.9% (plus) 50 ML IV ×3 (01:14→22:56)
[2023-05-14] MEDS: HYDROcodone-acetaminophen 5-325 mg Tablet PO ×4 (02:16→22:24)
[2023-05-14] MEDS: vancomycin 1,000 MG in sodium chloride 0.9% 250 ML 250 MG IV ×2 (02:17→14:55)
[2023-05-14] MEDS: ondansetron 2 mg/ML SDV 2 mL 4 MG IVP (02:59)
[2023-05-14 05:06] LABS: Basophils # 0.1 10^3/uL (0.0-0.1); Basophils % 0.5 %; Eosinophils # 0.4 10^3/uL (0.0-0.8); Eosinophils % 3.5 %; Hematocrit 24.5 % (36-47); Lymphocytes # 2.9 10^3/uL (0.8-4.8); Lymphocytes % 27.2 %; Mean Corpuscular HGB Conc 31.4 g/dL (30-55); Mean Corpuscular Hemoglobin 30.7 pg (27-33); Mean Corpuscular Volume 97.6 fl (85-98); Mean Platelet Volume 8.9 fL (7.4-10.4); Monocytes # 1.2 10^3/uL (0.2-0.9); Monocytes % 11.5 %; Neutrophils # 5.98 10^3/uL (1.8-7.7); Neutrophils % 56.5 %; Nucleated Red Blood Cells % 0 %; Platelet Count 457 10^3/cmm (157-399); Red Blood Count 2.51 10^6/uL (3.85-5.65); Red Cell Distribution Width 16.2 % (12.1-15.1); White Blood Count 10.59 10^3/uL (3.29-11.43)
[2023-05-14 05:14] LABS: Erythrocyte Sedimentation Rate 37 mm/hr (0-15)
[2023-05-14 06:24] LABS: Anion Gap 12.7 (5-19); Blood Urea Nitrogen 13 mg/dL (6-20); C Reactive Protein 138.4 mg/L (0.0-4.9); Calcium 8.6 mg/dL (8.5-10.5); Carbon Dioxide 22 mmol/L (22-29); Chloride 106 mmol/L (98-107); Glucose 97 mg/dL (65-115); Osmolality Calculated 282 mOsm/kg (285-295); Potassium 4.7 mmol/L (3.5-5.1); Sodium 136 mmol/L (136-145)
--- NOTE | 2023-05-14 09:47 | PM.PN ---
Subjective Subjective: Patient examined. Complaining of shooting pain in her left leg Patient is n.p.o. for her intervention today We will touch base with Dr. Villareal We will request uric acid level as well Vitals/I&O/Wt Last Vital Signs Temp 97.5 F L 05/14/23 07:58 Pulse 64 05/14/23 07:58 Resp 19 H 05/14/23 07:58 BP 100/64 05/14/23 07:58 Pulse Ox 98 05/14/23 07:58 O2 Del Method Room Air 05/14/23 07:58 05/13/23 05/14/23 05/14/23 22:59 06:59 14:59 Intake Total 1080 / 1080 420 / 1500 Balance 1080 / 1080 420 / 1500 Weight last 48 hrs Weight 75.07 kg Physical Exam Narrative: Patient is awake and alert Signs of dehydration present Pleasant and cooperative Edentulous Left first metatarsal phalangeal joint is red and swollen, tender to touch, Charcot foot Awake and alert GCS 15 S1, S2 Currently on room Data 05/14/23 04:59 05/14/23 05:51 Micro: Microbiology 05/13/23 00:00 Blood Culture - Preliminary Blood SPECIMEN COLLECTED 05/13/23 18:08 Blood Culture - Preliminary Blood SPECIMEN COLLECTED A&P Assessment and plan (1) Cellulitis of toe of left foot: (2) GERD (gastroesophageal reflux disease): (3) Gout: (4) Cellulitis: (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 Villareal today Plan for intervention today We will request uric acid as well Hemoglobin 7.7 monitor closely for now, I do believe this is dilutional anemia, she is not showing signs of tachycardia active GI bleed or hypotension Patient will need a special boot as well She is full code, lives alone, does medical marijuana Currently n.p.o. Currently on D5 IV fluids broad-spectrum antibiotics, afebrile, will follow further culture from the OR Attestations Medical Necessity Statement*: Awaiting intervention Diagnoses Cellulitis of toe of left foot L03.032 GERD (gastroesophageal reflux disease) K21.9 Gout M10.9 Cellulitis L03.90 Nonunion after arthrodesis M96.0 Pain in left ankle M25.572 Pain in left foot M79.672 Plaque psoriasis L40.0 Post-traumatic stress disorder, chronic F43.12 Major depressive disorder, recurrent, in partial remission F33.41
--- NOTE | 2023-05-14 10:16 | PC.PHAR ---
pt states she takes care of her own medications-pt states she takes lyrica 75mg tid from mail order ext med history shows last filled 03/30/23 30d/s 75mg bid-pt states she just took one dose of cipro 500mg bid rx filled 05/13/23 15d/s-pt states the dced her cosentyx pen and trying to get a different one pt states she didnt take cosentyx ext med history shows filled 05/09/23-
[2023-05-14 10:30] LABS: Uric Acid 3.4 mg/dL (2.4-5.7)
--- NOTE | 2023-05-14 12:10 | W.PM.OPSUD ---
Surgery/Procedure H&P Update DATE OF PROCEDURE: May 14, 2023 DATE H&P PERFORMED: 05/13/23 CHANGES TO PREVIOUS DOCUMENTATION: No changes PLANNED PROCEDURE: Operation Date: 05/14/23 12:20 Proposed Procedures p Incision And Drainage(Left) - Blair Villareal DPM s Hardware Removal(Left) - Blair Villareal DPM
[2023-05-14] MEDS: sodium chloride 0.9% 1,000 ML 30 ML IV (12:16)
--- NOTE | 2023-05-14 12:29 | ANES.PREANE2 ---
Pre-Anesthetic Assessment Height/Weight: Height 1.68 m Weight 75.07 kg Temp Pulse Resp BP Pulse Ox O2 Del Method 99.0 F 75 17 105/63 96 Room Air 05/14/23 12:12 05/14/23 12:12 05/14/23 12:12 05/14/23 12:12 05/14/23 12:12 05/14/23 12:12 Operation Date: 05/14/23 12:20 Proposed Procedures p Incision And Drainage(Left) - Blair Villareal DPM s Hardware Removal(Left) - Blair Villareal DPM Familial anesthetic complications: none Was Beta Sanjuanita taken within 24 hours: Yes Was Clonidine taken within 24 hours: N/A Social Tobacco and No alcohol Exam alert, oriented x 3, clear to auscultation bilaterally and regular rate & rhythm Airway Submandibular: within normal limits Cervical ROM: within normal limits Mallampati: Class II Dentition: false (upper) Pulmonary Chronic Obstructive Pulmonary Disease CV/HEM Hypertension Hepatic Hepatitis (B) GI Gastroesophageal Reflux Disease Neuropsych Anxiety and Depression Anesthetic Plan ASA status: 3 Anesthesia: Choice Medications/Allergies Home Medications Medication Instructions Recorded Confirmed Last Taken Type duloxetine 60 mg capsule,delayed 60 mg PO BID #60 caps 02/15/20 05/14/23 03/25/23 Rx release (Cymbalta) albuterol sulfate 90 mcg/actuation 1 - 2 puff inhalation QID PRN 07/13/21 05/14/23 05/06/22 08:00 History aerosol inhaler (Ventolin HFA) Shortness Of Breath ascorbic acid (vitamin C) 500 mg 500 mg PO DAILY PRN unknown 09/04/21 05/14/23 03/25/23 History tablet (Vitamin C) pantoprazole 40 mg tablet,delayed 40 mg PO BID 09/04/21 05/14/23 03/25/23 History release aspirin 81 mg tablet,delayed 81 mg PO QAM 04/09/22 05/14/23 03/25/23 History release aluminum-mag hydroxide-simethicone 2.5 ml PO Q3H PRN indigestion 05/12/22 05/14/23 Unknown Rx 400 mg-400 mg-40 mg/5 mL oral susp #3,000 mL (Maalox Maximum Strength) clobetasol 0.05 % scalp solution See Rx Instructions .Route .COMPLEX 12/02/22 05/14/23 Unknown History eyderxwm-jcc-arjd-FA-Ca carb-vit K 1 tab PO QAM 12/02/22 05/14/23 Unknown History 18 mg iron-400 mcg-500 mg tablet promethazine 25 mg tablet 25 mg PO Q6H PRN Nausea #10 tabs 03/28/23 05/14/23 12/01/22 Rx pimecrolimus 1 % topical cream 1 applic topical BID PRN unknown 05/08/23 05/14/23 Unknown History (Robert) ciprofloxacin HCl 500 mg tablet 500 mg PO BID #30 tabs 05/13/23 05/14/23 05/13/23 Rx only took one dose hydrocodone 5 mg-acetaminophen 325 1 tab PO Q6H PRN pain 2 days #6 05/13/23 05/14/23 Unknown Rx mg tablet tabs amlodipine 10 mg tablet 10 mg PO QAM 05/14/23 05/14/23 Unknown History metoprolol tartrate 50 mg tablet 50 mg PO BID 05/14/23 05/14/23 Unknown History pregabalin 75 mg capsule (Lyrica) 75 mg PO TID 05/14/23 05/14/23 Unknown History Allergies Allergy/AdvReac Type Severity Reaction Status Date / Time clindamycin Allergy Severe Unconscious Verified 05/14/23 10:16 adhesive tape Allergy Intermediate rash, red Verified 05/14/23 10:16 codeine Allergy ALGY-Anaphy Verified 05/14/23 10:16 laxis paroxetine [From Paxil] Allergy Unconscious Verified 05/14/23 10:16 Current Medications Generic Name Dose Route Start Last Admin Trade Name Freq PRN Reason Stop Dose Admin Hydrocodone Bitart/Acetaminophen 1 - 2 tab 05/13/23 16:33 05/14/23 02:16 Hydrocodone-Acetaminophen 5-325 Mg Tablet PO 2 tab Q4H PRN Administration mod to sev pain 1st Docusate Sodium 100 mg 05/13/23 18:00 05/13/23 17:55 Docusate Sodium 100 Mg Capsule PO 100 mg BID KATE Administration Potassium Chloride/Dextrose/Sod Cl 20 meq in 1,000 mls @ 75 mls/hr 05/13/23 16:45 05/14/23 01:11 D5-Ns 0.45% + Kcl 20 Meq IV 75 mls/hr .[id number] KATE Administration Piperacillin Sod/Tazobactam 50 mls @ 12.5 mls/hr 05/13/23 19:00 05/14/23 06:09 Sod 3.375 gm/ Sodium Chloride IV Infused Q8H KATE Infusion Protocol Sodium Chloride 1,000 mls @ 30 mls/hr 05/14/23 12:15 05/14/23 12:16 Sodium Chloride 0.9% IV 05/15/23 12:14 30 mls/hr .Q24H KATE Administration Metoprolol Tartrate 25 mg 05/13/23 21:00 05/13/23 20:38 Metoprolol Tartrate 25 Mg Tablet PO 25 mg BID@0900,2100 KATE Administration Ondansetron HCl 4 mg 05/13/23 16:33 05/14/23 02:59 Ondansetron 2 Mg/Ml Sdv 2 Ml IVP 4 mg Q8H PRN Administration vomiting, or N/V if npo Pantoprazole Sodium 40 mg 05/13/23 18:00 05/13/23 17:[address] 40 Mg Tablet PO 40 mg BID KATE Administration Senna 17.2 mg 05/13/23 21:00 05/13/23 20:36 Sennosides 8.6 Mg Tablet PO Not Given BEDTIME KATE PFSH Anesthesia Medical History (Updated 05/13/23 @ 15:40 by Trice Escalera MD) Alcohol withdrawal Anxiety Cannabinoid hyperemesis syndrome Cannabis dependence, uncomplicated Chronic kidney disease CVA (cerebral vascular accident) incidental finding on MR done for hearing loss, located in left cerebellar region on MRI performed early 2021 Cyclical vomiting DDD (degenerative disc disease), lumbosacral Dyslipidemia Elevated troponin Frozen shoulder syndrome GERD (gastroesophageal reflux disease) GI bleed nsaid induced gastritis Hepatitis B core antibody positive Surface antibody positive, surface antigen negative, HBV DNA and hepatitis b envelope Ag negative = equals past infection. Check LFTs q 3-6 months on biologic therapy. Repeat hepatitis serology if LFTs positive. Risk of reactivation. High anion gap metabolic acidosis High risk medication use biologic agent for psoriasis History of cardiovascular stress test (~10/2021) History of colon polyps tubular adenomas History of Holter monitoring (~12/2021) Baseline sinus rhythm, 50-129 bpm with average 79 bpm, one 4 beat run asymptomatic vtach History of migraine Hypertension Ileus Intermittent palpitations Major depressive disorder, recurrent, in partial remission Memory loss Plaque psoriasis Post-traumatic stress disorder, chronic Primary osteoarthritis of right knee Psoriatic arthritis Sepsis Tendinopathy of right rotator cuff Surgical History (Updated 05/13/23 @ 16:43 by Trice Escalera MD) History of ankle surgery multiple to left ankle History of colonoscopy (~09/2021) History of eye surgery Has metal around eye orbit History of hysterectomy History of pelvic surgery History of shoulder surgery History of toe surgery multiple to left foot Family History (Updated 05/13/23 @ 13:36 by Trice Escalera MD) Mother Stroke Psychiatric illness bipolar/depression Cancer Hypertension Hyperlipidemia Heart disease Migraine Father Cancer lung Heart disease Brother Psychiatric illness depression Other CAD (coronary artery disease) Diabetes Lung disease Social History (Updated 05/13/23 @ 16:14 by Trice Escalera MD) Smoking and tobacco status: current some day smoker cigarettes [ Other cigarette details: Quarter to half pack a day] Alcohol intake: current Alcohol use comment: Occasional Substance/Drug Use: current Substance/Drug use frequency: daily Substance/Drug use type: Marijuana Data Anesthesia 05/14/23 04:59 05/14/23 05:51 Short CBC 05/14/23 Range/Units 04:59 WBC 10.59 (3.29-11.43) 10^3/uL Hgb 7.70 L (11.27-16.99) g/dL Hct 24.5 L (36-47) % MCV 97.6 (85-98) fl Plt Count 457 H (157-399) 10^3/cmm Neut % (Auto) 56.5 % Neut # (Auto) 5.98 (1.8-7.7) 10^3/uL BMP 05/13/23 05/14/23 16:33 05:51 Sodium 131 L 136 Potassium 4.2 4.7 Chloride 100 106 Carbon Dioxide 21 L 22 BUN 15 13 Creatinine 1.0 H 0.9 Glucose 103 97 Calcium 8.9 8.6 Coags 05/14/23 05/14/23 04:59 05:51 ESR 37 H C-Reactive Protein 138.4 H Microbiology 05/13/23 00:00 Blood Culture - Preliminary Blood SPECIMEN COLLECTED 05/13/23 18:08 Blood Culture - Preliminary Blood SPECIMEN COLLECTED Cardiac Studies: Echocardiogram 10/30/21 Sestamibi Stress Test (Cardiology) 11/01/21 Cardiac Event Monitor 11/20/21
[2023-05-14] MEDS: BUPivacaine 0.5% INJ 30 mL INJECTION (13:09)
--- NOTE | 2023-05-14 13:18 | W.PM.BPON ---
Date of procedure: 05/14/2023 Surgeon name: Carole GreerPYassine Direct Marketing Representative(s) name(s): No assistants Procedure(s) performed: Left foot first metatarsophalangeal joint incision and drainage, removal of orthopedic hardware with removal of nonviable bone and application of antibiotic cement spacer Description of findings: Septic first metatarsophalangeal joint, purulence of first metatarsophalangeal joint noted Estimated blood loss: 10 cc Specimen(s) removed: Proximal phalanx base left hallux sent to pathology. Cultures both aerobic and anaerobic sent to micro for ID and sensitivity Post-operative diagnosis: Left foot septic first metatarsophalangeal joint
--- NOTE | 2023-05-14 14:27 | ANE.PACU2 ---
Inpatient post-anesthesia follow up: Airway intact: Yes Vital signs: Temperature 97.5 F Pulse Rate 64 Respiratory Rate 20 Blood Pressure 103/65 Pulse Oximetry 98 Oxygen Delivery Me thod Room Air Oxygen Flow Rate Fraction of Inspir ed Oxygen Hydration adequate: Yes Nausea and vomiting: No Pain level: 2 Mental status: Baseline
--- NOTE | 2023-05-14 14:51 | PM.OP ---
Operative Report Date of procedure: May 14, 2023 Pre-op diagnosis: Left first metatarsophalangeal joint septic joint Post-op diagnosis: Same Post-op findings: Septic first metatarsophalangeal joint left foot with active purulence Procedure done: 1. Incision bone cortex left first metatarsal phalangeal joint with washout CPT 69839 2. Removal of deep implant CPT 01053 3. Implantation antibiotic spacer left first metatarsophalangeal joint Implants: Simplex P with tobramycin cement spacer Pathology: Base of proximal phalanx sent to pathology. Aerobic and anaerobic cultures of left first metatarsophalangeal joint sent to micro for ID and sensitivity Surgeon: Blair Villareal DPM Civil Engineering Project Designer: None Estimated blood loss: 10 cc No tourniquet used Complications: None Findings: See above Procedure: Patient is a 53-year-old female that has a history of left foot first metatarsophalangeal joint septic joint. Patient has had this worsening condition over the course of the past couple of weeks. The extent of infection necessitates incision and drainage with washout and application of antibiotic spacer with removal of infected hardware.. A lengthy discussion regarding the procedure, including risks and complications has been had with the patient and is noted in the recent clinic note. Written and verbal consent have been obtained. All patient questions have been answered to the patient?s satisfaction. No written or verbal guarantees have been given or implied. The patient has been NPO since midnight. The history has been reviewed and the history and physical is current. The signed consent was confirmed and placed in the patient chart. Patient imaging has been reviewed and is consistent with the diagnosis. Under mild sedation, the patient was brought into the operating room and left on the gurney in the supine position. Patient is receiving IV antibiotics [id number] on the floor. IV sedation was then performed by the anesthesiateam. A pneumatic tourniquet was then placed about the left ankle. A standard Solis block was performed to the left foot using 0.5% Marcaine plain. The operative extremity was then prepped and draped in the usual fashion. After prep, the following procedure was then performed. Attention was directed to the left foot where a 6 cm incision was made over the first metatarsophalangeal joint down to the level of bone cortex. Upon incising the area there is noted to be extravasation of purulence from the first metatarsophalangeal joint. Both aerobic and anaerobic cultures were taken at this time and sent to micro for ID and sensitivity. Dissection was carried out to expose the first metatarsophalangeal joint where 2 orthopedic joel were noted to be spanning the first metatarsophalangeal joint. These were removed without incident passed from the operative field. The head of the first metatarsal base the proximal phalanx were noted to be degenerative in nature surrounded by purulence. This supported the evidence of septic joint of left first metatarsophalangeal joint. A rongeur was used to remove devitalized tissue and bone from the area. An osteotome was used to remove the base the proximal phalanx and it was passed from the operative field to be sent to pathology. The site was then irrigated with 3 L of sterile saline. After irrigation of the area the site was inspected and it was decided that antibiotic spacer would be most appropriate at this time. Simplex P with tobramycin was fashioned into a disc and placed into the first metatarsal phalangeal joint. After placement of the cement attention was directed to closure. The incision was closed full-thickness using 3-0 Prolene in a combination of simple and horizontal mattress fashion. The incision was then dressed with Xeroform, 4 x 4 gauze, Kerlix, Colin. Patient was placed in a postop shoe. The patient tolerated the procedure and anesthesia well and without complication. The patient was transported from the operating room to the recovery room with vital signs stable and vascular status intact to all digits of the left foot. Thepatient was instructed to remain nonweightbearing to the operative extremity, to keep surgical dressing clean, dry and intact. The patient will be transferred back to the floor once anesthesia criteria is met. I will continue to round on and follow the patient in the inpatientsetting and provide recommendations to stabilize the patient for discharge. Based on the intraoperative findings patient will need PICC line with long-term IV antibiotics upon discharge from the hospital. This will be communicated to hospitalist.
[2023-05-14] MEDS: docusate sodium 100 mg Capsule PO ×2 (14:55→18:11)
[2023-05-14] MEDS: pantoprazole DR 40 mg Tablet PO ×2 (14:55→18:11)
[2023-05-14] MEDS: duloxetine 60 mg Capsule PO (14:55)
--- NOTE | 2023-05-14 15:13 | P.PN_ITS ---
Subjective Subjective: Patient is a 53-year-old female with history of left first metatarsophalangeal joint septic arthritis. Patient underwent left foot incision and drainage with washout today 05/14/2023. Vitals/I&O/Wt Last Vital Signs Temp 97.7 F 05/14/23 14:10 Pulse 88 05/14/23 14:10 Resp 18 05/14/23 14:10 BP 106/75 05/14/23 14:10 Pulse Ox 98 05/14/23 14:10 O2 Del Method Room Air 05/14/23 14:10 05/14/23 05/14/23 05/14/23 06:59 14:59 22:59 Intake Total 420 / 1500 1063.5 / 1063.5 Output Total 5 / 5 Balance 420 / 1500 1058.5 / 1058.5 Weight last 48 hrs Weight 165 lb 8 oz Physical Exam Narrative: EXAM NARRATIVE: BELOW IS A FOCUSED LOWER EXTREMITY EXAM GENERAL: A&O x 3 VASCULAR: DP/PT pulses palpable 2/4 with CFT intact, <3seconds to distal digits DERMATOLOGICAL: Left foot dressing clean, dry, intact with no strikethrough MUSCULOSKELETAL: Deferred secondary to postoperative state NEUROLOGICAL: Neurological sensation to the affected foot and ankle is present through L4-S1 dermatomes with no hyper/hypoesthesias, negative Tinel or Valleix's sign Data 05/14/23 04:59 05/14/23 05:51 Micro: Microbiology 05/13/23 00:00 Blood Culture - Preliminary Blood SPECIMEN COLLECTED 05/13/23 18:08 Blood Culture - Preliminary Blood SPECIMEN COLLECTED A&P Assessment and plan (1) Cellulitis of toe of left foot: (2) Pain in left foot: Plan LABS AND CLINICAL INFO: WBC 15.6--> 10.5 ESR 48--> 37 CRP 61.9--> 138 VSS ABX: Vanco/Zosyn Pain: Hydrocodone/APAP 5?325 PLAN: -Okay for diet per podiatry -Status post left first metatarsophalangeal joint incision and drainage with antibiotic spacer placement and hardware removal -Continue IV antibiotics and monitor cultures -Weightbearing as tolerated to left foot -Discharge plan: To be determined. Recommend patient have PICC line placed for 6 weeks IV antibiotic therapy given intraoperative findings of purulence and septic first metatarsophalangeal joint of left foot -Leave surgical dressing clean, dry, intact -Keep operative extremity elevated -Podiatry will continue to round on patient daily and provide recommendations moving towards discharge. Attestations Medical Necessity Statement*: Left foot first metatarsophalangeal joint septic arthritis that underwent incision and drainage and washout today 05/14/2023. Patient will need PICC line placement and long-term IV antibiotic therapy. Coding Level of Care Code Acute Code for [facility] Diagnoses Cellulitis of toe of left foot L03.032 Pain in left foot M79.672
--- NOTE | 2023-05-14 18:06 | PC.NURSE ---
Pt c/o pain not being controlled with 2 hydrocodone 5-325 q4h. She states The doctor told me I would have morphine This nurse expressed to the pt that she does have morphine ordered, however, her blood pressures have been running too low for me to feel comfortable giving that to her. Pt was very upset and demanded to speak to her doctor and stated Im sick of your attitude. This nurse contacted Dr. Peck about possibly changing up pain medication, however, he offered a 500mL bolus. Will administer hydrocodone again at 1800 and monitor patients BP.
[2023-05-14] MEDS: metoprolol tartrate 25 mg Tablet PO (20:10)
[2023-05-14] MEDS: sennosides 8.6 mg Tablet 17.2 MG PO (20:10)
[2023-05-15] VITALS (10 sets, daily range): BP systolic 106–132; BP diastolic 68–87; PULSE 76–94; RESP 14–20; TEMP 36.7–37.1; O2SAT 95–97
[2023-05-15] MEDS: HYDROmorphone 1 mg/mL INJ 1 mL 0.5 MG IVP ×2 (02:11→06:40)
[2023-05-15] MEDS: vancomycin 1,000 MG in sodium chloride 0.9% 250 ML 250 MG IV ×2 (02:11→15:33)
[2023-05-15] MEDS: piperacillin-tazobactam 3.375 GM in sodium chloride 0.9% (plus) 50 ML IV ×3 (06:14→23:07)
[2023-05-15 06:25] LABS: Blood Urea Nitrogen 10 mg/dL (6-20); Calcium 8.5 mg/dL (8.5-10.5); Carbon Dioxide 24 mmol/L (22-29); Chloride 106 mmol/L (98-107); Glucose 88 mg/dL (65-115); Osmolality Calculated 286 mOsm/kg (285-295); Sodium 139 mmol/L (136-145)
[2023-05-15 06:48] LABS: Basophils % 0.4 %; Eosinophils # 0.2 10^3/uL (0.0-0.8); Eosinophils % 2.9 %; Hematocrit 24.4 % (36-47); Lymphocytes # 2.1 10^3/uL (0.8-4.8); Lymphocytes % 25.1 %; Mean Corpuscular HGB Conc 31.6 g/dL (30-55); Mean Corpuscular Hemoglobin 30.4 pg (27-33); Mean Corpuscular Volume 96.4 fl (85-98); Mean Platelet Volume 9.4 fL (7.4-10.4); Monocytes % 11.7 %; Neutrophils # 4.86 10^3/uL (1.8-7.7); Neutrophils % 58.9 %; Nucleated Red Blood Cells % 0 %; Platelet Count 471 10^3/cmm (157-399); Red Blood Count 2.53 10^6/uL (3.85-5.65); Red Cell Distribution Width 16.5 % (12.1-15.1); White Blood Count 8.24 10^3/uL (3.29-11.43)
--- NOTE | 2023-05-15 09:11 | P.PN_ITS ---
Subjective Subjective: Patient had various concerns regarding her medications, I told her we are holding her blood pressure provocation, discontinue Dilaudid She is not endorsing active pain She is okay with 6 weeks of IV antibiotics with PICC line requesting home health services Vitals/I&O/Wt Last Vital Signs Temp 98.1 F 05/15/23 07:30 Pulse 85 05/15/23 07:30 Resp 20 H 05/15/23 07:30 BP 106/68 05/15/23 07:30 Pulse Ox 95 05/15/23 07:30 O2 Del Method Room Air 05/15/23 07:30 05/14/23 05/15/23 05/15/23 22:59 06:59 14:59 Intake Total 1020 / 2083.5 300 / 2383.5 1909.167 / 1909.167 Balance 1020 / 2078.5 300 / 2378.5 1909.167 / 1909.167 Weight last 48 hrs Weight 75.07 kg Physical Exam Narrative: Patient is awake and alert Signs of dehydration improving S1, S2 Currently on room air Left foot covered in dressing, mild bleeding noticed on the dressing no active drainage noted Pleasant and cooperative Abdomen soft Data 05/15/23 05:10 05/15/23 05:10 Micro: Microbiology 05/13/23 00:00 Blood Culture - Preliminary Blood NEGATIVE TO DATE 05/13/23 18:08 Blood Culture - Preliminary Blood NEGATIVE TO DATE A&P Assessment and plan (1) Post-traumatic stress disorder, chronic: (2) Major depressive disorder, recurrent, in partial remission: (3) Cellulitis: (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 Villareal Drop in hemoglobin noted, it could be dilutional, watch H&H for now Discontinue IV fluids Continue bowel regimen, discontinue Dilaudid continue IV morphine along hydrocodone tablet Holding metoprolol for low blood pressure today Full code Attestations Medical Necessity Statement*: Continue medical management Diagnoses Post-traumatic stress disorder, chronic F43.12 Major depressive disorder, recurrent, in partial remission F33.41 Cellulitis L03.90 Nonunion after arthrodesis M96.0 Pain in left ankle M25.572 Pain in left foot M79.672 Gout M10.9 Cellulitis of toe of left foot L03.032
[2023-05-15] MEDS: pantoprazole DR 40 mg Tablet PO ×2 (09:14→18:04)
[2023-05-15] MEDS: HYDROcodone-acetaminophen 5-325 mg Tablet PO ×4 (09:14→23:07)
[2023-05-15] MEDS: docusate sodium 100 mg Capsule PO ×2 (09:14→18:04)
[2023-05-15] MEDS: duloxetine 60 mg Capsule PO (09:14)
[2023-05-15] MEDS: cyclobenzaprine 10 mg Tablet 5 MG PO (11:07)
--- NOTE | 2023-05-15 14:27 | XR_ITS ---
WS: [id number] Exam: XR chest 1V portable [id number] Date/Time of Exam: 05/15/2023 2:57 PM Reason For Exam: Post PICC insertion Comparison 05/08/2023. Left-sided PICC line has been placed and appears to and in the lower one third of the SVC. The lungs are clear. Normal cardiomediastinal silhouette and regional bony elements. IMPRESSION: 1. Left-sided PICC line ending in the lower one third of the SVC. 2. No acute cardiopulmonary process.
--- NOTE | 2023-05-15 14:45 | PC.NURSE ---
Single lumen PICC placed to left basilic vein. Pt referred to PICC team for PICC insertion due to need for terminal block assembler antibiotics. Risks and benefits discussed with patient and informed consent obtained. Left arm assessed with left basilic vein measuring 7 mm, straight, and apparent best choice for placement. Using sterile technique and MST, left basilic accessed x 1 stick. Mid-arm circumference measured 10 cm from left AC 27 cm. Trimmed cath 38 cm with 0 cm external length noted. Chest xray shows tip in distal third of the SVC, in good postion for use per radiology. Line secured with stat-lock. Insertion site covered with Biopatch and TSM. Report given to bedside nurse, Jina.
[2023-05-15] MEDS: morphine 4 mg/mL SDV 1 mL IVP ×2 (15:32→21:07)
[2023-05-15 15:40] LABS: Hematocrit 22.2 % (36-47)
[2023-05-15 16:04] LABS: Vancomycin Trough 17.3 ug/mL (10-15)
--- NOTE | 2023-05-15 16:07 | PM.PN ---
Subjective Subjective: Patient seen at bedside today. Resting comfortably. Patient states that pain is well controlled. She is feeling much better. Vitals/I&O/Wt Last Vital Signs Temp 98.1 F 05/15/23 12:00 Pulse 85 05/15/23 12:00 Resp 20 H 05/15/23 15:32 BP 121/79 05/15/23 12:00 Pulse Ox 96 05/15/23 15:32 O2 Del Method Room Air 05/15/23 12:00 05/15/23 05/15/23 05/15/23 06:59 14:59 22:59 Intake Total 300 / 2383.5 2269.167 / 2269.167 Balance 300 / 2378.5 2269.167 / 2269.167 Weight last 48 hrs Weight 165 lb 8 oz Physical Exam Narrative: EXAM NARRATIVE: BELOW IS A FOCUSED LOWER EXTREMITY EXAM GENERAL: A&O x 3 VASCULAR: DP/PT pulses palpable 2/4 with CFT intact, <3seconds to distal digits DERMATOLOGICAL: Left foot dressing clean, dry, intact with mild strikethrough no active bleeding MUSCULOSKELETAL: Deferred secondary to postoperative state NEUROLOGICAL: Neurological sensation to the affected foot and ankle is present through L4-S1 dermatomes with no hyper/hypoesthesias, negative Tinel or Valleix's sign Data 05/15/23 15:15 05/15/23 05:10 Micro: Microbiology 05/14/23 12:50 Gram Stain - Final Toe - Left Big Wound Culture - Preliminary Coag positive Staphylococcus 05/13/23 00:00 Blood Culture - Preliminary Blood NEGATIVE TO DATE 05/13/23 18:08 Blood Culture - Preliminary Blood NEGATIVE TO DATE A&P Assessment and plan (1) Cellulitis of toe of left foot: (2) Pain in left foot: Plan LABS AND CLINICAL INFO: WBC 8.24 ESR 48--> 37 CRP 61.9--> 138 VSS ABX: Vanco/Zosyn Pain: Hydrocodone/APAP 5?325 Wound cultures: Coag positive staph preliminary PLAN: -Okay for diet per podiatry -Status post left first metatarsophalangeal joint incision and drainage with antibiotic spacer placement and hardware removal -Continue IV antibiotics and monitor cultures -Weightbearing as tolerated to left foot -Discharge plan: To be determined. Recommend patient have PICC line placed for 6 weeks IV antibiotic therapy given intraoperative findings of purulence and septic first metatarsophalangeal joint of left foot. Patient will follow-up with podiatry within 1 week of discharge from the hospital. -Leave surgical dressing clean, dry, intact. Podiatry will change dressing tomorrow morning 05/16/2023 -Keep operative extremity elevated -Podiatry will continue to round on patient daily and provide recommendations moving towards discharge. Attestations Medical Necessity Statement*: See hospitalist note Coding Level of Care Code Acute Code for [facility] Diagnoses Cellulitis of toe of left foot L03.032 Pain in left foot M79.672
[2023-05-15] MEDS: sennosides 8.6 mg Tablet 17.2 MG PO (19:33)
--- NOTE | 2023-05-15 19:40 | PC.NURSE ---
Patient's pain assessed and patient rated it at an 8. Two Hydrocodone pills brought to patient. Patient states I want my pain shot. Patient educated that PO pain medications are first line and that IV Morphine is for breakthrough pain. Patient became very angry with this nurse and stated I was told I could get my shot whenever I wanted.
--- NOTE | 2023-05-15 21:10 | PC.NURSE ---
Addendum entered by Nadege Rubin RN 05/16/23 05:34: Charge nurse to patient's room to educate patient as well. Original Note: When reassessing patient's pain after PRN Hydrocodone, pateint states her pain is still an 8/10. PRN Morphine offered to patient. Patient states what the hell, now I can have it,; why couldn't I just have it before, why do you want me to be in pain? Patient again educated that IV Morphine is for breakthrough pain not relieved by PO pain medication. Patient states you people don't know what you're doing, your staff already tried to kill me with that Metoprolol.
[2023-05-16] VITALS (9 sets, daily range): BP systolic 124–148; BP diastolic 72–94; PULSE 67–101; RESP 16–18; TEMP 36.7–37; O2SAT 93–96
[2023-05-16] MEDS: vancomycin 1,000 MG in sodium chloride 0.9% 250 ML 250 MG IV ×2 (02:15→14:46)
[2023-05-16] MEDS: HYDROcodone-acetaminophen 5-325 mg Tablet PO ×3 (03:22→17:49)
[2023-05-16 05:31] LABS: Basophils # 0.1 10^3/uL (0.0-0.1); Basophils % 0.8 %; Eosinophils # 0.3 10^3/uL (0.0-0.8); Eosinophils % 3.4 %; Hematocrit 22.9 % (36-47); Lymphocytes # 2.1 10^3/uL (0.8-4.8); Lymphocytes % 28.1 %; Mean Corpuscular HGB Conc 31.9 g/dL (30-55); Mean Corpuscular Hemoglobin 30.7 pg (27-33); Mean Corpuscular Volume 96.2 fl (85-98); Mean Platelet Volume 8.8 fL (7.4-10.4); Monocytes # 0.8 10^3/uL (0.2-0.9); Monocytes % 11.3 %; Neutrophils # 4.17 10^3/uL (1.8-7.7); Nucleated Red Blood Cells % 0 %; Platelet Count 450 10^3/cmm (157-399); Red Blood Count 2.38 10^6/uL (3.85-5.65); Red Cell Distribution Width 16.4 % (12.1-15.1); White Blood Count 7.44 10^3/uL (3.29-11.43)
[2023-05-16 05:52] LABS: Anion Gap 13.1 (5-19); Blood Urea Nitrogen 12 mg/dL (6-20); Calcium 8.5 mg/dL (8.5-10.5); Carbon Dioxide 23 mmol/L (22-29); Chloride 109 mmol/L (98-107); Glomerular Filtration Rate 57.6 mL/min (90-130); Glucose 95 mg/dL (65-115); Osmolality Calculated 290 mOsm/kg (285-295); Potassium 5.1 mmol/L (3.5-5.1); Sodium 140 mmol/L (136-145)
[2023-05-16] MEDS: promethazine 25 mg Tablet PO (05:55)
--- NOTE | 2023-05-16 07:18 | P.PN_ITS ---
Subjective Subjective: Patient seen at bedside this morning. Resting comfortably. Pain is well controlled. States overall she is feeling much better. Vitals/I&O/Wt Last Vital Signs Temp 98.1 F 05/16/23 03:16 Pulse 67 05/16/23 03:16 Resp 16 05/16/23 03:16 BP 125/72 05/16/23 03:16 Pulse Ox 94 05/16/23 03:16 O2 Del Method Room Air 05/16/23 03:16 05/15/23 05/16/23 05/16/23 22:59 06:59 14:59 Intake Total 1020 / 3289.167 300 / 3589.167 Balance 1020 / 3289.167 300 / 3589.167 Physical Exam Narrative: EXAM NARRATIVE: BELOW IS A FOCUSED LOWER EXTREMITY EXAM GENERAL: A&O x 3 VASCULAR: DP/PT pulses palpable 2/4 with CFT intact, <3seconds to distal digits DERMATOLOGICAL: Left foot first metatarsophalangeal joint incision well coapted with sutures intact. No evidence of dehiscence. Surrounding erythema receding. No active drainage no underlying fluctuance. No ascending cellulitis. MUSCULOSKELETAL: Tenderness of left ankle and dorsal left foot have resolved NEUROLOGICAL: Neurological sensation to the affected foot and ankle is present through L4-S1 dermatomes with no hyper/hypoesthesias, negative Tinel or Valleix's sign Data 05/16/23 05:24 05/16/23 05:24 Micro: Microbiology 05/14/23 12:50 Gram Stain - Final Toe - Left Big Anaerobic Culture - Preliminary Wound Culture - Preliminary Coag positive Staphylococcus A&P Assessment and plan (1) Cellulitis of toe of left foot: (2) Pain in left foot: Plan LABS AND CLINICAL INFO: WBC 7.4 ESR 48--> 37 CRP 61.9--> 138 VSS ABX: Vanco/Zosyn Pain: Hydrocodone/APAP 5?325 Wound cultures: Coag positive staph preliminary PLAN: -Okay for diet per podiatry -Status post left first metatarsophalangeal joint incision and drainage with antibiotic spacer placement and hardware removal -Continue IV antibiotics and monitor cultures -Weightbearing as tolerated to left foot -Discharge plan: Patient is okay to discharge home from podiatry standpoint with PICC line. Recommend 6 weeks IV antibiotic therapy. Antibiotic choice pending wound cultures. Recommend patient follow-up with podiatry within 1 week of discharge from the hospital. -Surgical dressing changed at bedside this morning consisting of Xeroform, 4 x 4 gauze, Kerlix, Colin bandage. Patient is to leave dressing clean, dry, intact until her follow-up outpatient setting. -Keep operative extremity elevated -Podiatry will continue to round on patient daily and provide recommendations moving towards discharge. Attestations Medical Necessity Statement*: See hospitalist note Coding Level of Care Code Acute Code for [facility] Diagnoses Cellulitis of toe of left foot L03.032 Pain in left foot M79.672
[2023-05-16] MEDS: docusate sodium 100 mg Capsule PO ×2 (08:22→17:49)
[2023-05-16] MEDS: piperacillin-tazobactam 3.375 GM in sodium chloride 0.9% (plus) 50 ML IV (08:22)
[2023-05-16] MEDS: pantoprazole DR 40 mg Tablet PO ×2 (08:22→17:49)
[2023-05-16] MEDS: duloxetine 60 mg Capsule PO (08:22)
[2023-05-16] MEDS: morphine 4 mg/mL SDV 1 mL IVP ×2 (08:23→12:57)
[2023-05-16] MEDS: cyclobenzaprine 10 mg Tablet 5 MG PO (08:23)
--- NOTE | 2023-05-16 09:35 | P.PN_ITS ---
Subjective Subjective: Drop in hemoglobin noted No signs of hemodynamic instability Staphylococcus most likely is MRSA We can give her 2 g of vancomycin daily for 6 weeks outpatient via PICC line At this point we do not have a physician to follow-up her antibiotics outpatient ID Dr. Pedraza versus PCP Vitals/I&O/Wt Last Vital Signs Temp 98.2 F 05/16/23 08:00 Pulse 89 05/16/23 08:00 Resp 18 05/16/23 08:23 BP 144/89 05/16/23 08:00 Pulse Ox 95 05/16/23 08:23 O2 Del Method Room Air 05/16/23 07:50 05/15/23 05/16/23 05/16/23 22:59 06:59 14:59 Intake Total 1020 / 3289.167 300 / 3589.167 240 / 240 Balance 1020 / 3289.167 300 / 3589.167 240 / 240 Physical Exam Narrative: Patient is awake and alert GCS 15 Excited to go home nonfocal neuro exam Left foot covered in dressing Abdomen soft S1, S2 Currently on room air Data 05/16/23 05:24 05/16/23 05:24 Micro: Microbiology 05/14/23 12:50 Gram Stain - Final Toe - Left Big Anaerobic Culture - Preliminary Wound Culture - Preliminary Coag positive Staphylococcus A&P Assessment and plan (1) Plaque psoriasis: (2) Hypertension: (3) Memory loss: (4) Cellulitis of toe of left foot: (5) Gout: (6) Postoperative anemia: Plan Patient will be discharged once we have outpatient good follow-up for her IV antibiotics, we will choose vancomycin 1 g every 12 hours versus 2 g daily, most likely her culture is MRSA, currently it is showing coagulase positive Staphyloc occus Afebrile Drop in hemoglobin noted Monitor closely if patient would require any blood transfusion No hemodynamic instability Discontinue IV fluids Appreciate podiatry recommendations special education case manager updated Patient is full code Attestations Medical Necessity Statement*: Discharge later today versus tomorrow Diagnoses Plaque psoriasis L40.0 Hypertension I10 Memory loss R41.3 Cellulitis of toe of left foot L03.032 Gout M10.9 Postoperative anemia D64.9
--- NOTE | 2023-05-16 10:36 | PC.SOCIAL ---
IMM Update: Pg 2 of IMM dated and reviewed with ptKris Theodore provided. Dated, initialed and placed in chart.
[2023-05-16] MEDS: sennosides 8.6 mg Tablet 17.2 MG PO (20:56)
[2023-05-16] MEDS: metoprolol tartrate 25 mg Tablet PO (20:57)
[2023-05-17] MEDS: vancomycin 1,000 MG in sodium chloride 0.9% 250 ML 250 MG IV (02:42)
--- NOTE | 2023-05-17 04:27 | PC.NURSE ---
pt has been offered pain medication multiple times throughout the night and most recently at this time pt stated I am fine, I do not need any pain medication. This nurse ensured the pt understood they were available and could have them at anytime. The pt verbalized understanding.
[2023-05-17 04:45] VITALS: BP 155/92; PULSE 73; RESP 16; TEMP 36.8; O2SAT 93
[2023-05-17 04:57] LABS: Basophils % 0.5 %; Eosinophils # 0.3 10^3/uL (0.0-0.8); Eosinophils % 3.4 %; Hematocrit 26.4 % (36-47); Lymphocytes # 1.8 10^3/uL (0.8-4.8); Lymphocytes % 22.3 %; Mean Corpuscular HGB Conc 31.4 g/dL (30-55); Mean Corpuscular Hemoglobin 29.7 pg (27-33); Mean Corpuscular Volume 94.6 fl (85-98); Mean Platelet Volume 8.7 fL (7.4-10.4); Monocytes # 0.9 10^3/uL (0.2-0.9); Monocytes % 11.3 %; Neutrophils % 62.1 %; Nucleated Red Blood Cells % 0 %; Platelet Count 569 10^3/cmm (157-399); Red Blood Count 2.79 10^6/uL (3.85-5.65); Red Cell Distribution Width 15.9 % (12.1-15.1); White Blood Count 7.89 10^3/uL (3.29-11.43)
[2023-05-17 05:23] LABS: Creatine Phosphokinase 40 U/L (26-192)
[2023-05-17 05:55] LABS: Add Urine Microscopic? NO; Charge for UA Resulting for Rev
[2023-05-17 05:57] LABS: Protein Urine Neg (Negative); Specific Gravity, Urine 1.007 (1.005-1.030); Urine Appearance Clear (CLEAR); Urine Color Light yellow (Yellow); pH Urine 5 (5-7)
[2023-05-17 05:58] LABS: Bilirubin Urine Neg (Negative); Blood Urine Neg (Negative); Glucose Urine UA Trace (Normal); Ketones Urine Negative (Negative); Leukocyte Esterase Urine Negative (Negative); Nitrate Urine Negative (Negative); Urobilinogen Urine Neg (Negative)
[2023-05-17 07:17] VITALS: BP 162/102; PULSE 81; RESP 18; TEMP 36.8; O2SAT 95
--- NOTE | 2023-05-17 07:46 | PM.PN ---
Subjective Subjective: Patient seen at bedside this morning. Resting comfortably. Pain is well controlled. Feeling overall well. States she is ready to go home. Vitals/I&O/Wt Last Vital Signs Temp 98.3 F 05/17/23 07:17 Pulse 81 05/17/23 07:17 Resp 18 05/17/23 07:17 BP 162/102 05/17/23 07:17 Pulse Ox 95 05/17/23 07:17 O2 Del Method Room Air 05/17/23 07:17 05/16/23 05/17/23 05/17/23 22:59 06:59 14:59 Intake Total 490 / 1007.5 250 / 1257.5 Balance 490 / 1007.5 250 / 1257.5 Physical Exam Narrative: EXAM NARRATIVE: BELOW IS A FOCUSED LOWER EXTREMITY EXAM GENERAL: A&O x 3 VASCULAR: DP/PT pulses palpable 2/4 with CFT intact, <3seconds to distal digits DERMATOLOGICAL: Left foot first metatarsophalangeal joint incision well coapted with sutures intact. No evidence of dehiscence. Surrounding erythema receding. No active drainage no underlying fluctuance. No ascending cellulitis. MUSCULOSKELETAL: Tenderness of left ankle and dorsal left foot have resolved NEUROLOGICAL: Neurological sensation to the affected foot and ankle is present through L4-S1 dermatomes with no hyper/hypoesthesias, negative Tinel or Valleix's sign Data 05/17/23 04:24 05/16/23 05:24 Micro: Microbiology 05/14/23 12:50 Gram Stain - Final Toe - Left Big Anaerobic Culture - Preliminary Wound Culture - Final Methicillin Resis Staph Aureus A&P Assessment and plan (1) Cellulitis of toe of left foot: (2) Pain in left foot: Plan LABS AND CLINICAL INFO: WBC 7.4 ESR 48--> 37 CRP 61.9--> 138 VSS ABX: Vanco/Zosyn Pain: Hydrocodone/APAP 5?325 Wound cultures: MRSA PLAN: -Okay for diet per podiatry -Status post left first metatarsophalangeal joint incision and drainage with antibiotic spacer placement and hardware removal -Continue IV antibiotics and monitor cultures -Weightbearing as tolerated to left foot -Discharge plan: Patient is okay to discharge home from podiatry standpoint with PICC line. Recommend 6 weeks IV antibiotic therapy. Recommend patient follow-up with podiatry within 1 week of discharge from the hospital. -Surgical dressing changed at bedside this morning consisting of Xeroform, 4 x 4 gauze, Kerlix, Colin bandage. Patient is to leave dressing clean, dry, intact until her follow-up outpatient setting. -Keep operative extremity elevated -Podiatry will continue to round on patient daily and provide recommendations moving towards discharge. Attestations Medical Necessity Statement*: See hospitalist note Coding Level of Care Code Acute Code for [facility] Diagnoses Cellulitis of toe of left foot L03.032 Pain in left foot M79.672
[2023-05-17] MEDS: HYDROcodone-acetaminophen 5-325 mg Tablet PO (07:57)
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
[2023-05-17] MEDS: docusate sodium 100 mg Capsule PO (09:06)
[2023-05-17] MEDS: metoprolol tartrate 25 mg Tablet PO (09:07)
[2023-05-17] MEDS: duloxetine 60 mg Capsule PO (09:07)
[2023-05-17] MEDS: pantoprazole DR 40 mg Tablet PO (09:09)
[2023-05-17 09:38] VITALS: PULSE 93; RESP 16; O2SAT 98
--- NOTE | 2023-05-17 10:13 | PM.DCS ---
Discharge Providers Date of Admission: 05/13/23 14:14 Date of Discharge: May 17, 2023 Attending Provider at Admission: Trice Escalera MD Attending Provider at Discharge: Tania Peck MD Primary Care Provider: Bucky Rogers MD Diagnoses at Discharge Discharge Diagnosis (1) Septic arthritis: Status: Acute (2) Hardware complicating wound infection: Status: Acute (3) Osteomyelitis: Status: Acute Reason for Visit Reason for Visit: Left foot Cellulitis Hospital Course Hospital Course 53 female who was transferred from podiatry clinic for left first MTP joint redness hyperemia and tenderness related to cellulitis versus osteomyelitis, inflammatory markers were high however no leukocytosis or fever, On 05/14 1.? Incision bone cortex left first metatarsal phalangeal joint with washout CPT 22608 2.? Removal of deep implant CPT 15069 3.? Implantation antibiotic spacer left first metatarsophalangeal joint Postoperative no complications, patient hiwot afebrile, did not show signs of sepsis, Cultures from the OR showing MRSA, she was kept on vancomycin and Zosyn initially which was transitioned to daptomycin after ID consultation, Dr. Pedraza will follow-up outpatient long-term antibiotics along PCP, Dr. Pedraza has put in orders for daptomycin dose and the duration and weekly lab work, [facility] has been set up, [place] will supply the medications With daptomycin her CPK is normal at 40 She will get CBC, creatinine and CPK levels on weekly basis daptomycin doses 8 mg/kg every 24 hours for 6 weeks Please review ID consultation note for further details Physical Exam Narrative: Awake and alert Left foot covered in dressing GCS 15 Nonfocal exam Euvolemic S1, S2 Currently on room air Discharge Data Studies Completed and Pending Completed Studies During Hospitalization Category Date Time Status CXRP [XR chest 1V portable 14039] Routine Exams 05/15/23 14:27 Completed Pathology: Surgical [PTH] Routine Pth 05/14/23 13:27 Completed Pending at discharge Category Date Time Status Anaerobic Culture Routine Lab 05/14/23 12:50 Results Blood Culture Routine Lab 05/13/23 16:33 Results Wound Culture and Gram Stain Routine Lab 05/14/23 12:50 Results Laboratory Results WBC 7.89 10^3/uL (3.29-11.43) 05/17/23 04:24 RBC 2.79 10^6/uL (3.85-5.65) L 05/17/23 04:24 Hgb 8.30 g/dL (11.27-16.99) L 05/17/23 04:24 Hct 26.4 % (36-47) L 05/17/23 04:24 MCV 94.6 fl (85-98) 05/17/23 04:24 MCH 29.7 pg (27-33) 05/17/23 04:24 MCHC 31.4 g/dL (30-55) 05/17/23 04:24 RDW 15.9 % (12.1-15.1) H 05/17/23 04:24 Plt Count 569 10^3/cmm (157-399) H 05/17/23 04:24 MPV 8.7 fL (7.4-10.4) 05/17/23 04:24 Neut % (Auto) 62.1 % 05/17/23 04:24 Lymph % (Auto) 22.3 % 05/17/23 04:24 Ocean % (Auto) 11.3 % 05/17/23 04:24 Eos % (Auto) 3.4 % 05/17/23 04:24 Baso % (Auto) 0.5 % 05/17/23 04:24 Neut # (Auto) 4.90 10^3/uL (1.8-7.7) 05/17/23 04:24 Lymph # (Auto) 1.8 10^3/uL (0.8-4.8) 05/17/23 04:24 Ocean # (Auto) 0.9 10^3/uL (0.2-0.9) 05/17/23 04:24 Eos # (Auto) 0.3 10^3/uL (0.0-0.8) 05/17/23 04:24 Baso # (Auto) 0.0 10^3/uL (0.0-0.1) 05/17/23 04:24 Nucleated RBC % (auto) 0 % 05/17/23 04:24 Nucleated RBCs # 0.0 /100WBC 05/17/23 04:24 ESR 37 mm/hr (0-15) H 05/14/23 04:59 Sodium 140 mmol/L (136-145) 05/16/23 05:24 Potassium 5.1 mmol/L (3.5-5.1) 05/16/23 05:24 Chloride 109 mmol/L (98-107) H 05/16/23 05:24 Carbon Dioxide 23 mmol/L (22-29) 05/16/23 05:24 Anion Gap 13.1 (5-19) 05/16/23 05:24 BUN 12 mg/dL (6-20) 05/16/23 05:24 Creatinine 1.0 mg/dL (0.5-0.9) H 05/16/23 05:24 GFR Calculation 57.6 mL/min (90-130) L 05/16/23 05:24 Glucose 95 mg/dL (65-115) 05/16/23 05:24 Calculated Osmolality 290 mOsm/kg (285-295) 05/16/23 05:24 Lactic Acid 1.8 mmol/L (0.5-2.2) 05/13/23 00:00 Uric Acid 3.4 mg/dL (2.4-5.7) 05/14/23 05:51 Calcium 8.5 mg/dL (8.5-10.5) 05/16/23 05:24 Phosphorus 3.5 mg/dL (2.5-4.5) 05/13/23 16:33 Magnesium 1.8 mg/dL (1.7-2.3) 05/13/23 16:33 Creatine Kinase 40 U/L (26-192) 05/17/23 04:24 C-Reactive Protein 138.4 mg/L (0.0-4.9) H 05/14/23 05:51 Urine Color Light yellow (Yellow) 05/17/23 04:24 Urine Appearance Clear (CLEAR) 05/17/23 04:24 Urine pH 5 (5-7) 05/17/23 04:24 Ur Specific Chauncey 1.007 (1.005-1.030) 05/17/23 04:24 Urine Protein Neg (Negative) 05/17/23 04:24 Urine Glucose (UA) Trace (Normal) H 05/17/23 04:24 Urine Ketones Negative (Negative) 05/17/23 04:24 Urine Blood Neg (Negative) 05/17/23 04:24 Urine Nitrate Negative (Negative) 05/17/23 04:24 Urine Bilirubin Neg (Negative) 05/17/23 04:24 Urine Urobilinogen Neg mg/dL (Negative) 05/17/23 04:24 Ur Leukocyte Esterase Negative (Negative) 05/17/23 04:24 Vancomycin Trough 17.3 ug/mL (10-15) H 05/15/23 15:10 Vitals Last Vital Signs Temp 98.3 F 05/17/23 07:17 Pulse 93 05/17/23 09:38 Resp 16 05/17/23 09:38 BP 162/102 05/17/23 07:17 Pulse Ox 98 05/17/23 09:38 O2 Del Method Room Air 05/17/23 09:38 Discharge Plan Discharge Patient Disposition: Home Condition: Stable Prescriptions: New oxycodone 5 mg tablet 5 mg PO BID PRN (Reason: pain) Qty: 20 0RF daptomycin 500 mg recon soln 500 mg IV DAILY 42 Days Qty: 10 0RF Rx Instructions: administer over 30 mins sennosides [senna] 8.6 mg Tablet 17.2 mg PO BEDTIME Qty: 30 0RF Continued hydrocodone-acetaminophen 5-325 mg tablet 1 tab PO Q6H PRN (Reason: pain) 2 Days Qty: 6 0RF Cymbalta 60 mg capsule,delayed release(DR/EC) 60 mg PO BID Qty: 60 0RF albuterol sulfate [Ventolin HFA] 90 mcg/actuation Hfa Aerosol Inhaler 1 - 2 puff INHALATION QID PRN (Reason: Shortness Of Breath) pantoprazole 40 mg tablet,delayed release (DR/EC) 40 mg PO BID ascorbic acid (vitamin C) [Vitamin C] 500 mg Tablet 500 mg PO DAILY PRN (Reason: unknown) alum-mag hydroxide-simeth [Maalox Maximum Strength] 400-400-40 mg/5 mL suspension 2.5 ml PO Q3H PRN (Reason: indigestion) Qty: 3000 0RF Lyrica 75 mg Capsule 75 mg PO TID amlodipine 10 mg tablet 10 mg PO QAM metoprolol tartrate 50 mg tablet 50 mg PO BID aspirin 81 mg tablet,delayed release (DR/EC) 81 mg PO QAM clobetasol 0.05 % solution See Rx Instructions .ROUTE .COMPLEX Rx Instructions: Apply a few drops to itchy areas on scalp as needed vt-sy-ikaz-FA-Ca carb-vit K 18 mg iron-400 mcg-500 mg Tablet 1 tab PO QAM promethazine 25 mg tablet 25 mg PO Q6H PRN (Reason: Nausea) Qty: 10 0RF pimecrolimus [Elidel] 1 % cream 1 applic topical BID PRN (Reason: unknown) Rx Instructions: Apply to affected area on eyelids twice daily Discontinued ciprofloxacin HCl 500 mg tablet 500 mg PO BID Qty: 30 0RF Rx Instructions: for 15 days (rx filled 05/13/23) Discharge Orders: Discharge Order (Routine); Ordered 05/17/23 Ordered By: Tania Peck Referrals: [facility] [Provider Group] - 06/27/23 11:00 am Bucky Rogers MD [Primary Care Provider] - 4-7 days Blair Villareal DPM [Physician] - 05/23/23 9:15 am Patient Instructions: Opioid Safety Discharge Attestations Time Spent in Discharge Care*: greater than 30 min Status at Discharge: Cognitive status at discharge: cognitively intact, Behavioral status at discharge: cooperative, Quality Metrics Clinical Quality Measures [ No reported AMI, CVA or VTE this stay] Coding Level of Care Code Acute Code for Chg Fwd Diagnoses Septic arthritis M00.9 Hardware complicating wound infection T84.7XXA Osteomyelitis M86.9
[2023-05-17] MEDS: DAPTOmycin 600 MG in sodium chloride 0.9% (100 ml) 100 ML 100 MG IV (10:35)
[2023-05-17 11:41] VITALS: PULSE 93; RESP 16; O2SAT 98
== END 2023-05-17 11:41 | disposition home health service (06) | DRG 496 ==
PROVIDERS: Podiatrist Foot & Ankle Surgery; Student in an Organized Health Care Education/Training Program; Admitting Provider Hospitalist; PCP Family Medicine; Visit Provider Internal Medicine
PROC: 0QPR04Z Removal of Internal Fixation Device from Left Toe Phalanx, Open Approach (ICD-10-PCS; principal; 2023-05-14 12:00)
PROC: 0QPR04Z Removal of Internal Fixation Device from Left Toe Phalanx, Open Approach (ICD-10-PCS; 2023-05-14 12:00)
DX: T84.69XA Infection and inflammatory reaction due to internal fixation device of other site, initial encounter (principal); D62 Acute posthemorrhagic anemia; M00.072 Staphylococcal arthritis, left ankle and foot; M86.172 Other acute osteomyelitis, left ankle and foot; Y79.8 Miscellaneous orthopedic devices associated with adverse incidents, not elsewhere classified; B95.62 Methicillin resistant Staphylococcus aureus infection as the cause of diseases classified elsewhere; L03.032 Cellulitis of left toe; Z79.891 Long term (current) use of opiate analgesic; Z79.51 Long term (current) use of inhaled steroids; Z79.82 Long term (current) use of aspirin; L40.0 Psoriasis vulgaris; Z86.19 Personal history of other infectious and parasitic diseases; F41.9 Anxiety disorder, unspecified; F12.20 Cannabis dependence, uncomplicated; I12.9 Hypertensive chronic kidney disease with stage 1 through stage 4 chronic kidney disease, or unspecified chronic kidney disease; N18.2 Chronic kidney disease, stage 2 (mild); Z86.73 Personal history of transient ischemic attack (TIA), and cerebral infarction without residual deficits; M51.37 Other intervertebral disc degeneration, lumbosacral region; E78.5 Hyperlipidemia, unspecified; F33.41 Major depressive disorder, recurrent, in partial remission; G62.9 Polyneuropathy, unspecified; G89.29 Other chronic pain; F17.210 Nicotine dependence, cigarettes, uncomplicated; F43.12 Post-traumatic stress disorder, chronic; K21.9 Gastro-esophageal reflux disease without esophagitis; E86.0 Dehydration; M10.9 Gout, unspecified
CPT/HCPCS: 36415; 36573; 36592; 71045; 73600; 73630; 80048; 80202; 81003; 82550; 83605; 83735; 84100; 84550; 85014; 85018; 85025; 85651; 86140; 87040; 87070; 87075; 87077; 87186; 87205; 88307; 88311; 93005; 99204; J0878; J1170; J2250; J2270; J2405; J2543; J2704; J3010; J3370; J3490; J7030; J7050; Q0169

== ENCOUNTER 2023-05-20 09:00 | Outpatient (CLI) | payer MEDICARE, MEDICAID, SELFPAY ==
[2023-05-20 11:44] LABS: Basophils # 0.1 10^3/uL (0.0-0.1); Basophils % 0.5 %; Eosinophils # 0.2 10^3/uL (0.0-0.8); Eosinophils % 2.2 %; Hematocrit 27.6 % (36-47); Lymphocytes # 1.9 10^3/uL (0.8-4.8); Lymphocytes % 17.8 %; Mean Corpuscular HGB Conc 32.2 g/dL (30-55); Mean Corpuscular Hemoglobin 30.3 pg (27-33); Mean Corpuscular Volume 93.9 fl (85-98); Mean Platelet Volume 8.9 fL (7.4-10.4); Monocytes # 0.8 10^3/uL (0.2-0.9); Monocytes % 7.6 %; Neutrophils # 7.74 10^3/uL (1.8-7.7); Neutrophils % 71.4 %; Nucleated Red Blood Cells % 0 %; Platelet Count 575 10^3/cmm (157-399); Red Blood Count 2.94 10^6/uL (3.85-5.65); Red Cell Distribution Width 16.4 % (12.1-15.1); White Blood Count 10.83 10^3/uL (3.29-11.43)
[2023-05-20 12:12] LABS: C Reactive Protein 4.7 mg/L (0.0-4.9); Creatine Phosphokinase 39 U/L (26-192); Glomerular Filtration Rate 74.5 mL/min (90-130)
== END 2023-05-20 09:15 | disposition home or self-care (01) ==
PROVIDERS: PCP Family Medicine; Visit Provider Student in an Organized Health Care Education/Training Program
DX: L03.032 Cellulitis of left toe (principal)
CPT/HCPCS: 82550; 82565; 85025; 86140

== ENCOUNTER → 2023-05-23 09:22 | Outpatient (BNVA) | payer MEDICARE, MEDICAID, SELFPAY | PROVIDERS: PCP Family Medicine; Visit Provider Podiatrist Foot & Ankle Surgery | DX: Z98.890 Other specified postprocedural states (principal); M79.672 Pain in left foot; M25.572 Pain in left ankle and joints of left foot; M96.0 Pseudarthrosis after fusion or arthrodesis | CPT/HCPCS: 99024; A6222 ==

== ENCOUNTER 2023-05-24 19:56 | Observation (INO) | payer MEDICARE, MEDICAID, SELFPAY ==
[2023-05-24 19:58] VITALS: BP 135/100; PULSE 105; RESP 20; TEMP 36.9; O2SAT 98; BMI 26.6
[2023-05-24 20:44] LABS: Basophils % 0.2 %; Eosinophils # 0.1 10^3/uL (0.0-0.8); Eosinophils % 0.4 %; Hematocrit 30.4 % (36-47); Lymphocytes # 1.1 10^3/uL (0.8-4.8); Lymphocytes % 8.5 %; Mean Corpuscular HGB Conc 35.5 g/dL (30-55); Mean Corpuscular Hemoglobin 30.3 pg (27-33); Mean Corpuscular Volume 85.2 fl (85-98); Mean Platelet Volume 8.7 fL (7.4-10.4); Monocytes # 0.9 10^3/uL (0.2-0.9); Monocytes % 6.7 %; Neutrophils # 11.09 10^3/uL (1.8-7.7); Neutrophils % 83.9 %; Nucleated Red Blood Cells % 0 %; Platelet Count 634 10^3/cmm (157-399); Red Blood Count 3.57 10^6/uL (3.85-5.65); Red Cell Distribution Width 15.9 % (12.1-15.1)
[2023-05-24] MEDS: sodium chloride 0.9% 1,000 ML 999 ML IV (20:45)
--- NOTE | 2023-05-24 20:56 | PC.NURSE ---
Patient stated that she could not produce urine specimen. Nurse asked if patient wanted to be straight cathed and patient stated yes. Dr Mcdonald stated that it was okay to obtain urine specimen via straight cath.
--- NOTE | 2023-05-24 21:00 | W.ED.NAVMDI ---
HPI - Nausea/Vomiting/Diarrhea General: Chief complaint: Nausea/Vomiting/Diarrhea Stated complaint: N/V Time Seen by Provider: 05/24/23 19:57 Source: patient History of Present Illness: 53-year-old female well-known to the ER service. She has been hospitalized twice this month. Once for intractable vomiting and acute kidney injury. The second time was for that of a foot infection. She has been getting IV antibiotics at home. She has been getting wound care for her chronic left foot wound. Dressing was changed yesterday at the podiatry clinic. She presents today with multiple episodes of vomiting, and abdominal pain. She has a history of cyclic vomiting. She denies fever. She denies other symptoms. She states that her antibiotic infusions have been going well. MD elicited complaint: nausea, vomiting and abdominal pain Associated nausea: Yes Associated symtoms: Reports nausea; Denies chest pain or palpitations Review of Systems Const: Denies: fever(s) Card: Denies: chest pain or palpitations Resp: Reports: dyspnea; Denies: productive cough or non-productive cough GI: Reports: abdominal pain, nausea and vomiting Skin/Breast: Denies: rash PFSH ED PFSH: Medical History Acute kidney injury Alcohol withdrawal Anxiety Cannabinoid hyperemesis syndrome Cannabis dependence, uncomplicated Cellulitis Cellulitis of toe of left foot Chronic kidney disease CVA (cerebral vascular accident) incidental finding on MR done for hearing loss, located in left cerebellar region on MRI performed early 2021 Cyclical vomiting Cyclical vomiting DDD (degenerative disc disease), lumbosacral Dyslipidemia Elevated troponin Frozen shoulder syndrome GERD (gastroesophageal reflux disease) GI bleed nsaid induced gastritis Gout Hardware complicating wound infection Hepatitis B core antibody positive Surface antibody positive, surface antigen negative, HBV DNA and hepatitis b envelope Ag negative = equals past infection. Check LFTs q 3-6 months on biologic therapy. Repeat hepatitis serology if LFTs positive. Risk of reactivation. High anion gap metabolic acidosis High risk medication use biologic agent for psoriasis History of cardiovascular stress test (~10/2021) History of colon polyps tubular adenomas History of Holter monitoring (~12/2021) Baseline sinus rhythm, 50-129 bpm with average 79 bpm, one 4 beat run asymptomatic vtach History of migraine Hypertension Ileus Intermittent palpitations Major depressive disorder, recurrent, in partial remission Memory loss Nonunion after arthrodesis Osteomyelitis Pain in left ankle Pain in left foot Plaque psoriasis Post-traumatic stress disorder, chronic Postoperative anemia Primary osteoarthritis of right knee Psoriatic arthritis Sepsis Septic arthritis Tendinopathy of right rotator cuff Surgical History History of ankle surgery multiple to left ankle History of colonoscopy (~09/2021) History of eye surgery Has metal around eye orbit History of hysterectomy History of pelvic surgery History of shoulder surgery History of toe surgery multiple to left foot Family History Mother Stroke Psychiatric illness bipolar/depression Cancer Hypertension Hyperlipidemia Heart disease Migraine Father Cancer lung Heart disease Brother Psychiatric illness depression Other CAD (coronary artery disease) Diabetes Lung disease Social History Smoking and tobacco status: current some day smoker cigarettes [ Other cigarette details: Quarter to half pack a day] Alcohol intake: current Substance/Drug Use: current Substance/Drug use frequency: daily Physical Exam Const: GENERAL APPEARANCE: cooperative, ill appearing and frail appearing HENMT: COMMON NORMALS: normocephalic, atraumatic and Normal external nose present HEAD & SCALP: normocephalic and atraumatic FACE & SINUS: normal facial exam and face symmetric NOSE: Normal external nose present Eye: COMMON NORMALS: Equal, round and reactive pupils present and EOMs intact bilaterally PUPIL: Yes Equal, round and reactive pupils present Neck/C-Spine: GENERAL: Yes trachea midline Chest: CHEST: Yes Symmetrical chest wall rise Resp: COMMON NORMALS: normal respiratory effort, No retractions, No use of accessory muscles and clear to auscultation bilaterally AUSCULTATION: clear to auscultation bilaterally Cardio: COMMON NORMALS: regular rhythm RATE: tachycardic RHYTHM: regular rhythm GI: COMMON NORMALS: Normal to inspection, nondistended, normoactive bowel sounds present PALPATION: Yes Tenderness to palpation present (GI) (diffusely) Extremity: COMMON NORMALS: no pedal edema Neuro: JUANY COMA SCALE: document GCS findings Juany coma scale eye opening: Spontaneous Juany coma scale verbal response: Orientated Juany coma scale motor response: Obey commands Juany coma scale total score: 15 SENSORY EXAM: Yes extremities (intact) Psych: COMMON NORMALS: speech normal SPEECH: Yes normal speech Skin: COMMON NORMALS: no rashes or lesions noted GENERAL SKIN EXAM: no rashes or lesions noted Course Vital Signs: Vital signs: Vital Signs Temperature 98.5 F 05/24/23 23:58 Pulse Rate 119 H 05/25/23 00:02 Respiratory Rate 16 05/25/23 00:02 Blood Pressure 185/129 05/25/23 00:02 Pulse Oximetry 97 05/25/23 00:02 Oxygen Delivery Me thod Room Air 05/24/23 23:58 MDM - Nausea/Vomiting/Diarrhea Medical Decision Making Patient is afebrile. She is mildly tachycardic. Other vital parameters are stable. Her white blood cell count is 13. She had a CT a 2 weeks ago that was negative for any acute change. She has only had oral Zofran at this point without any improvement in her nausea. She is receiving IV fluid, IV anti emetics. This lady is positive for marijuana on drug screening. She has a history of cyclical vomiting. She has a hypochloremic hypokalemic metabolic alkalosis consistent with vomiting. She will require fluid resuscitation, and emesis control. She will be observed. Hospitalist has seen the patient. Lab Data 05/24/23 20:37 05/24/23 20:37 Laboratory Results WBC 13.20 10^3/uL (3.29-11.43) H 05/24/23 20:37 RBC 3.57 10^6/uL (3.85-5.65) L 05/24/23 20:37 Hgb 10.80 g/dL (11.27-16.99) L 05/24/23 20:37 Hct 30.4 % (36-47) L 05/24/23 20:37 MCV 85.2 fl (85-98) 05/24/23 20:37 MCH 30.3 pg (27-33) 05/24/23 20:37 MCHC 35.5 g/dL (30-55) 05/24/23 20:37 RDW 15.9 % (12.1-15.1) H 05/24/23 20:37 Plt Count 634 10^3/cmm (157-399) H 05/24/23 20:37 MPV 8.7 fL (7.4-10.4) 05/24/23 20:37 Neut % (Auto) 83.9 % 05/24/23 20:37 Lymph % (Auto) 8.5 % 05/24/23 20:37 Esmeralda % (Auto) 6.7 % 05/24/23 20:37 Eos % (Auto) 0.4 % 05/24/23 20:37 Baso % (Auto) 0.2 % 05/24/23 20:37 Neut # (Auto) 11.09 10^3/uL (1.8-7.7) H 05/24/23 20:37 Lymph # (Auto) 1.1 10^3/uL (0.8-4.8) 05/24/23 20:37 Esmeralda # (Auto) 0.9 10^3/uL (0.2-0.9) 05/24/23 20:37 Eos # (Auto) 0.1 10^3/uL (0.0-0.8) 05/24/23 20:37 Baso # (Auto) 0.0 10^3/uL (0.0-0.1) 05/24/23 20:37 Nucleated RBC % (auto) 0 % 05/24/23 20:37 Nucleated RBCs # 0.0 /100WBC 05/24/23 20:37 Sodium 129 mmol/L (136-145) L 05/24/23 20:37 Potassium 3.1 mmol/L (3.5-5.1) L 05/24/23 20:37 Chloride 75 mmol/L (98-107) L 05/24/23 20:37 Carbon Dioxide 34 mmol/L (22-29) H 05/24/23 20:37 Anion Gap 23.1 (5-19) H 05/24/23 20:37 BUN 15 mg/dL (6-20) 05/24/23 20:37 Creatinine 1.3 mg/dL (0.5-0.9) H 05/24/23 20:37 GFR Calculation 42.5 mL/min (90-130) L 05/24/23 20:37 Glucose 138 mg/dL (65-115) H 05/24/23 20:37 Calculated Osmolality 271 mOsm/kg (285-295) L 05/24/23 20:37 Lactic Acid 2.0 mmol/L (0.5-2.2) 05/24/23 20:37 Calcium 10.6 mg/dL (8.5-10.5) H 05/24/23 20:37 Magnesium 1.8 mg/dL (1.7-2.3) 05/24/23 20:37 Total Bilirubin 0.6 mg/dL (0.15-1.2) 05/24/23 20:37 AST 14 U/L (0-32) 05/24/23 20:37 ALT 16 U/L (0-33) 05/24/23 20:37 Alkaline Phosphatase 140 U/L (35-105) H 05/24/23 20:37 Creatine Kinase 101 U/L (26-192) 05/24/23 20:37 C-Reactive Protein 20.8 mg/L (0.0-4.9) H 05/24/23 20:37 Total Protein 9.4 g/dL (6.6-8.7) H 05/24/23 20:37 Albumin 5.1 g/dL (3.5-5.2) 05/24/23 20:37 Globulin 4.3 g/dL (1.3-4.6) 05/24/23 20:37 Lipase 30 U/L (13-60) 05/24/23 20:37 Urine Color Yellow (Yellow) 05/24/23 20:55 Urine Appearance Clear (CLEAR) 05/24/23 20:55 Urine pH 9 (5-7) H 05/24/23 20:55 Ur Specific [place] 1.010 (1.005-1.030) 05/24/23 20:55 Urine Protein 1+ (Negative) H 05/24/23 20:55 Urine Glucose (UA) Norm (Normal) 05/24/23 20:55 Urine Ketones Negative (Negative) 05/24/23 20:55 Urine Blood Neg (Negative) 05/24/23 20:55 Urine Nitrate Negative (Negative) 05/24/23 20:55 Urine Bilirubin Neg (Negative) 05/24/23 20:55 Prot Sulfosalicylic Acd Positive (Negative) 05/24/23 20:55 Urine Urobilinogen Neg mg/dL (Negative) 05/24/23 20:55 Ur Leukocyte Esterase Negative (Negative) 05/24/23 20:55 Urine RBC None /hpf (0-2) 05/24/23 20:55 Urine WBC Rare /hpf (0-5) 05/24/23 20:55 Ur Squamous Epith Cells 0-4 /hpf (0-5) H 05/24/23 20:55 Amorphous Sediment 1+ /hpf 05/24/23 20:55 Urine Bacteria Trace /hpf (NONE) 05/24/23 20:55 Hyaline Casts 0-4 /lpf H 05/24/23 20:55 Urine Mucus 1+ /hpf 05/24/23 20:55 Urine Opiates Screen Negative ng/mL (Negative) 05/24/23 20:55 Ur Barbiturates Screen Negative ng/mL (Negative) 05/24/23 20:55 Ur Phencyclidine Scrn Negative ng/mL (Negative) 05/24/23 20:55 Ur Amphetamines Screen Negative ng/mL (Negative) 05/24/23 20:55 U Benzodiazepines Scrn Negative ng/mL (Negative) 05/24/23 20:55 Urine Cocaine Screen Negative ng/mL (Negative) 05/24/23 20:55 U Marijuana (THC) Screen Positive ng/mL (Negative) H 05/24/23 20:55 Ethyl Alcohol < 10 mg/dL (0-10) 05/24/23 20:37 No radiology studies performed this visit Discharge Plan Discharge Patient Disposition: Placed in Observation Admit Provider: Angelina Pedraza Clinical Impression: Cyclical vomiting, intractable, Hypochloremic alkalosis Condition: Stable Coding Level of Care Code ED Client Services Manager for 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
[2023-05-24 21:06] LABS: Alanine Aminotransferase 16 U/L (0-33); Albumin Level 5.1 g/dL (3.5-5.2); Alkaline Phosphatase 140 U/L (35-105); Anion Gap 23.1 (5-19); Aspartate Amino Transferase 14 U/L (0-32); Blood Urea Nitrogen 15 mg/dL (6-20); C Reactive Protein 20.8 mg/L (0.0-4.9); Calcium 10.6 mg/dL (8.5-10.5); Carbon Dioxide 34 mmol/L (22-29); Chloride 75 mmol/L (98-107); Globulin 4.3 g/dL (1.3-4.6); Glomerular Filtration Rate 42.5 mL/min (90-130); Glucose 138 mg/dL (65-115); Lipase 30 U/L (13-60); Magnesium 1.8 mg/dL (1.7-2.3); Osmolality Calculated 271 mOsm/kg (285-295); Potassium 3.1 mmol/L (3.5-5.1); Sodium 129 mmol/L (136-145); Total Bilirubin 0.6 mg/dL (0.15-1.2); Total Protein 9.4 g/dL (6.6-8.7)
[2023-05-24 21:17] LABS: Add Urine Microscopic? YES; Bilirubin Urine Neg (Negative); Blood Urine Neg (Negative); Glucose Urine UA Norm (Normal); Ketones Urine Negative (Negative); Leukocyte Esterase Urine Negative (Negative); Nitrate Urine Negative (Negative); Protein Urine 1+ (Negative); Sulfosalicylic Acid Urine Positive (Negative); Urine Appearance Clear (CLEAR); Urine Color Yellow (Yellow); Urobilinogen Urine Neg (Negative); pH Urine 9 (5-7)
[2023-05-24 21:18] LABS: Add Urine Culture? No; Amorphous Sediment Urine 1+ /hpf; Bacteria Urine TRACE /hpf; Hyaline Casts Urine 0-4 /lpf; Mucus Urine 1+ /hpf; Squamous Epithelial Cell Urine 0-4 /hpf (0-5); WBC Urine RARE /hpf (0-5)
[2023-05-24] MEDS: ondansetron 2 mg/ML SDV 2 mL 4 MG IVP (21:23)
[2023-05-24] MEDS: haloperidol inj 5 mg/mL INJ 1 mL IVP (21:23)
[2023-05-24 21:54] LABS: Alcohol Level < 10 mg/dL (0-10)
[2023-05-24] MEDS: sodium chlor 0.9% + KCl 40 mEq 40 MEQ/1,000 ML BAG 500 MEQ IV (22:00)
[2023-05-24 22:01] VITALS: BP 139/100; PULSE 94; RESP 16; O2SAT 92
[2023-05-24 22:25] LABS: Amphetamines Screen Urine Negative (Negative); Barbiturates Screen Urine Negative (Negative); Benzodiazepines Screen Urine Negative (Negative); Cocaine Screen Urine Negative (Negative); Opiate Screen Urine Negative (Negative); PCP Screen Urine Negative (Negative); THC Screen Urine Positive (Negative)
[2023-05-24 22:45] VITALS: BP 131/98; PULSE 99; O2SAT 93
[2023-05-24 23:09] LABS: Creatine Phosphokinase 101 U/L (26-192)
[2023-05-24 23:15] VITALS: BP 124/91; PULSE 104; O2SAT 91
--- NOTE | 2023-05-24 23:31 | PC.NURSE ---
Report called to [facility]. All questions and concerns addressed at time of report.
[2023-05-24] MEDS: labetalol 5 mg/mL SDV 20mL 20 MG IVP (23:37)
[2023-05-24] MEDS: amlodipine 5 mg Tablet 10 MG PO (23:37)
[2023-05-24 23:58] VITALS: BP 161/103; PULSE 93; RESP 14; TEMP 36.9; O2SAT 97
[2023-05-25] VITALS (10 sets, daily range): BP systolic 108–188; BP diastolic 72–129; PULSE 73–119; RESP 14–19; TEMP 36.6–36.9; O2SAT 92–97
--- NOTE | 2023-05-25 | PC.NURSE ---
Dr Mcdonald was notified of high BP. Orders given to admin labetalol and amlodipine. Receiving nurse on the floor informed of BP and meds given.
--- NOTE | 2023-05-25 00:01 | PC.NURSE ---
Report was called to JOEY Reilly on Med-Surg. Pt was moved to Med-Surg room 251-2 with all paperwork and belongings. Pt refused to wear a gown upon transfer to the floor but had patient ID and allergy band on.
--- NOTE | 2023-05-25 00:56 | P.HP_ITS ---
Providers/Chief Complaint Admitting Physician: Angelina Pedraza MD Primary Care Provider: Bucky Rogers MD Chief Complaint: N/V History of Present Illness Rachelle Mireles is a 53 year old female ?with history of GERD depression hypertension psoriasis CVA posttraumatic stress disorder, recent septic arthritis and osteomyelitis of the foot for which she is currently on daptom ycin. She has a longstanding history of cyclical vomiting and recurrent hospital admissions for this reason along with multiple electrolyte abnormalities. This is thought to be perhaps related to marijuana use in the past. She presents today with multiple episodes of vomiting and abdominal pain. Denies any fever at home. Denies any diarrhea. She is noted to have electrolyte abnormalities including hyponatremia, hypochloremia, and hypokalemia. Denies any chest pain dyspnea palpitations or syncope. Review of Systems General: Reports: 10 or more systems reviewed and unremarkable except in HPI and below Const: Denies: fever(s), chills or body aches Eyes: Denies: change in vision, blurry vision or photophobia ENMT: Reports: hoarseness; Denies: throat pain, enlarged tonsils, odynophagia or nasal congestion Card: Denies: chest pain, palpitations, irregular heart rhythm, edema, swelling of feet/ankles, lightheadedness, pre-syncope, dyspnea on exertion or orthopnea Resp: Denies: dyspnea, productive cough, non-productive cough, wheezing, stridor, pain on inspiration, change in phlegm color, hemoptysis or chest congestion GI: Denies: abdominal pain, nausea, vomiting, hematemesis, coffee ground emesis, dysphagia, heartburn, diarrhea, constipation, GI cramping, change in stool character, hematochezia or melena : Denies: flank pain, difficulty voiding, dysuria, urinary frequency, urinary urgency, urinary hesitancy or hematuria Musc: Denies: neck pain, back pain, extremity pain, joint swelling, joint warmth or deformity Neuro: Denies: headache(s), numbness in extremities, weakness in extremities, sensory changes, difficulty walking, frequent falls, dizziness, vertigo, behavioral changes, Slurred speech present or seizure-like activity Psych: Denies: anxiety, depression, suicidal ideation or homicidal ideation Endo: Denies: polyuria, polydipsia, tired all the time, cold intolerance or hot flashes Ba/Lymph: Denies: easy bruising or easy bleeding Medications/Allergies Home Medications Medication Instructions Recorded Confirmed Last Taken Type duloxetine 60 mg capsule,delayed 60 mg PO BID #60 caps 02/15/20 05/23/23 03/25/23 Rx release (Cymbalta) albuterol sulfate 90 mcg/actuation 1 - 2 puff inhalation QID PRN 07/13/21 05/23/23 05/06/22 08:00 History aerosol inhaler (Ventolin HFA) Shortness Of Breath ascorbic acid (vitamin C) 500 mg 500 mg PO DAILY PRN unknown 09/04/21 05/23/23 03/25/23 History tablet (Vitamin C) pantoprazole 40 mg tablet,delayed 40 mg PO BID 09/04/21 05/23/23 03/25/23 History release aspirin 81 mg tablet,delayed 81 mg PO QAM 04/09/22 05/23/23 03/25/23 History release aluminum-mag hydroxide-simethicone 2.5 ml PO Q3H PRN indigestion 05/12/22 05/23/23 Unknown Rx 400 mg-400 mg-40 mg/5 mL oral susp #3,000 mL (Maalox Maximum Strength) clobetasol 0.05 % scalp solution See Rx Instructions .Route .COMPLEX 12/02/22 05/23/23 Unknown History qrceaxca-rip-shjx-FA-Ca carb-vit K 1 tab PO QAM 12/02/22 05/23/23 Unknown History 18 mg iron-400 mcg-500 mg tablet promethazine 25 mg tablet 25 mg PO Q6H PRN Nausea #10 tabs 03/28/23 05/23/23 12/01/22 Rx pimecrolimus 1 % topical cream 1 applic topical BID PRN unknown 05/08/23 05/23/23 Unknown History (Elidel) hydrocodone 5 mg-acetaminophen 325 1 tab PO Q6H PRN pain 2 days #6 05/13/23 05/23/23 Unknown Rx mg tablet tabs amlodipine 10 mg tablet 10 mg PO QAM 05/14/23 05/23/23 Unknown History metoprolol tartrate 50 mg tablet 50 mg PO BID 05/14/23 05/23/23 Unknown History pregabalin 75 mg capsule (Lyrica) 75 mg PO TID 05/14/23 05/23/23 Unknown History daptomycin 500 mg intravenous 500 mg IV DAILY 6 weeks #10 ea 05/17/23 05/23/23 Unknown Rx solution oxycodone 5 mg tablet 5 mg PO BID PRN pain #20 tabs 05/17/23 05/23/23 Unknown Rx sennosides 8.6 mg tablet (senna) 17.2 mg PO BEDTIME #30 tabs 05/17/23 05/23/23 Unknown Rx Allergies Allergy/AdvReac Type Severity Reaction Status Date / Time clindamycin Allergy Severe Unconscious Verified 05/24/23 20:04 adhesive tape Allergy Intermediate rash, red Verified 05/24/23 20:04 codeine Allergy Unknown ALGY-Anaphy Verified 05/24/23 20:04 laxis paroxetine [From Paxil] Allergy Unconscious Verified 05/24/23 20:04 PFSH Acute PFSH: Medical History (Updated 05/25/23 @ 06:44 by Angelina Pedraza MD) Acute kidney injury Alcohol withdrawal Anxiety Cannabinoid hyperemesis syndrome Cannabis dependence, uncomplicated Cellulitis Cellulitis of toe of left foot Chronic kidney disease CVA (cerebral vascular accident) incidental finding on MR done for hearing loss, located in left cerebellar region on MRI performed early 2021 Cyclical vomiting Cyclical vomiting DDD (degenerative disc disease), lumbosacral Dyslipidemia Elevated troponin Frozen shoulder syndrome GERD (gastroesophageal reflux disease) GI bleed nsaid induced gastritis Gout Hardware complicating wound infection Hepatitis B core antibody positive Surface antibody positive, surface antigen negative, HBV DNA and hepatitis b envelope Ag negative = equals past infection. Check LFTs q 3-6 months on biologic therapy. Repeat hepatitis serology if LFTs positive. Risk of reactivation. High anion gap metabolic acidosis High risk medication use biologic agent for psoriasis History of cardiovascular stress test (~10/2021) History of colon polyps tubular adenomas History of Holter monitoring (~12/2021) Baseline sinus rhythm, 50-129 bpm with average 79 bpm, one 4 beat run asymptomatic vtach History of migraine Hypertension Ileus Intermittent palpitations Major depressive disorder, recurrent, in partial remission Memory loss Nonunion after arthrodesis Osteomyelitis Pain in left ankle Pain in left foot Plaque psoriasis Post-traumatic stress disorder, chronic Postoperative anemia Primary osteoarthritis of right knee Psoriatic arthritis Sepsis Septic arthritis Tendinopathy of right rotator cuff Surgical History History of ankle surgery multiple to left ankle History of colonoscopy (~09/2021) History of eye surgery Has metal around eye orbit History of hysterectomy History of pelvic surgery History of shoulder surgery History of toe surgery multiple to left foot Family History Mother Stroke Psychiatric illness bipolar/depression Cancer Hypertension Hyperlipidemia Heart disease Migraine Father Cancer lung Heart disease Brother Psychiatric illness depression Other CAD (coronary artery disease) Diabetes Lung disease Social History Smoking and tobacco status: current some day smoker cigarettes [ Other cigarette details: Quarter to half pack a day] Alcohol intake: current Substance/Drug Use: current Substance/Drug use frequency: daily Vitals/I&O/Wt Last Vital Signs Temp 98.5 F 05/24/23 23:58 Pulse 119 H 05/25/23 00:02 Resp 16 05/25/23 00:02 BP 185/129 05/25/23 00:02 Pulse Ox 97 05/25/23 00:02 O2 Del Method Room Air 05/24/23 23:58 05/24/23 05/24/23 05/25/23 14:59 22:59 06:59 Intake Total 1999 Balance 1999 Weight last 48 hrs Weight 74.843 kg Physical Exam Narrative: General: No acute distress, AO x3 HEENT: PERRLA, pupils bilaterally equal and reactive, pallors not present Chest: Normal vesicular breath sounds, no added sounds, equal good air entry bilaterally CVS: S1-S2 regular, no murmurs, no tachycardia, no gallops, no rubs Abdomen: Soft, nontender, no organomegaly, bowel sounds present Neuro: No focal deficits, no facial deformity, AO x3, power 5/5 in all limbs Data 05/24/23 20:37 05/25/23 04:08 A&P Assessment and plan (1) Cyclical vomiting, intractable: (2) Hypochloremic alkalosis: (3) Hyponatremia: (4) Acute kidney injury: (5) Dehydration: Plan 53-year-old lady with past medical history of cyclical vomiting presenting to the emergency room today with multiple episodes of vomiting at home today. She has evidence of dehydration, electrolyte abnormalities by way of hyponatremia, hypokalemia and hypochloremia. Suspected to be related to GI losses. Creatinine today at 1.3, increased from 0.8 at her baseline. She has a past medical history of hepatitis B with hepatitis serology consistent with past infection. LFTs today are normal range. Recent history of MTP joint septic arthritis and osteomyelitis for which she is currently on daptomycin. Admit the patient to observation Start normal saline infusion at 75 cc/h She has received supplemental K in the ER, will recheck with am labs HTN with SBP 188/107, add prn hydaralzine Zofran, reglan and prn promethazine for nausea management Continue protonix BID Attestations Medical Necessity Statement*: less than 2 midnight stay anticipated Coding Level of Care Code Acute Code for Chg Fwd Moderate MDM includes number and complexity of problems actively addressed during encounter, amount and/or complexity of data reviewed/ordered and described risk of complication, morbidity or mortality of management as documented Diagnoses Cyclical vomiting, intractable R11.15 Hypochloremic alkalosis E87.3 Hyponatremia E87.1 Acute kidney injury N17.9 Dehydration E86.0
[2023-05-25] MEDS: sodium chloride 0.9% 1,000 ML 75 ML IV (01:24)
[2023-05-25] MEDS: hyDRALAzine 20 mg/mL INJ 1 mL 10 MG IVP (01:59)
[2023-05-25] MEDS: HYDROcodone-acetaminophen 5-325 mg Tablet 1 TAB PO ×2 (02:05→09:53)
[2023-05-25] MEDS: amlodipine 10 mg Tablet PO (05:04)
[2023-05-25] MEDS: aspirin 81 mg EC Tablet PO (05:06)
[2023-05-25 05:44] LABS: Alanine Aminotransferase 13 U/L (0-33); Albumin Level 4.2 g/dL (3.5-5.2); Alkaline Phosphatase 112 U/L (35-105); Anion Gap 20.9 (5-19); Aspartate Amino Transferase 19 U/L (0-32); Blood Urea Nitrogen 12 mg/dL (6-20); Calcium 8.7 mg/dL (8.5-10.5); Carbon Dioxide 30 mmol/L (22-29); Chloride 80 mmol/L (98-107); Globulin 2.8 g/dL (1.3-4.6); Glomerular Filtration Rate 42.5 mL/min (90-130); Glucose 121 mg/dL (65-115); Magnesium 1.9 mg/dL (1.7-2.3); Osmolality Calculated 267 mOsm/kg (285-295); Sodium 128 mmol/L (136-145); Total Bilirubin 0.4 mg/dL (0.15-1.2)
[2023-05-25 05:46] LABS: Potassium 2.9 mmol/L (3.5-5.1)
[2023-05-25] MEDS: lidocaine 1% 5 ML in potassium chloride premix 100 ML 26.25 ML IV (06:06)
[2023-05-25] MEDS: pantoprazole DR 40 mg Tablet PO (09:02)
[2023-05-25] MEDS: metoprolol tartrate 50 mg Tablet PO (09:02)
[2023-05-25] MEDS: duloxetine 60 mg Capsule PO (09:02)
[2023-05-25] MEDS: pregabalin 75 mg Capsule PO ×2 (09:02→15:20)
[2023-05-25] MEDS: DAPTOmycin 500 MG in sodium chloride 0.9% (100 ml) 100 ML 100 MG IV (09:47)
--- NOTE | 2023-05-25 12:38 | PM.MISC ---
Miscellaneous Note Note: Patient is not vomiting Dr. Villareal was notified about her hospitalization Continue IV fluids Replenish electrolytes Drug screen positive for marijuana Awake and alert Signs of dehydration present Left foot covered in dressing Wound does not look infected Continue antibiotics
[2023-05-25] MEDS: oxyCODONE 5 mg IR Tab/Cap PO (15:20)
--- NOTE | 2023-05-25 17:02 | PM.DCS ---
Discharge Providers Date of Admission: 05/24/23 22:56 Date of Discharge: May 25, 2023 Attending Provider at Admission: Angelina Pedraza MD Attending Provider at Discharge: Tania Peck MD Primary Care Provider: Bucky Rogers MD Diagnoses at Discharge Discharge Diagnosis (1) Cyclical vomiting, intractable: Status: Inactive (2) Hypochloremic alkalosis: Status: Inactive (3) Hyponatremia: Status: Resolved (4) Acute kidney injury: Status: Inactive (5) Dehydration: Status: Resolved Reason for Visit Reason for Visit: N/V Hospital Course Hospital Course 53-year female who is currently getting IV daptomycin for her septic arthritis and osteomyelitis of foot presented with cyclical vomiting related electrolyte imbalance, patient was admitted overnight she was given IV fluids and electrolytes were replenished. Patient next day was wanting to go home because she was tolerating diet, her foot was examined by Dr. Villareal, no concerns were present for her dressing or wound at the time of evaluation, patient was discharged home with stable hemodynamics. She is endorsing to medical marijuana. She is not willing to quit. Physical Exam Narrative: Awake and alert She is a 48 Signs of dehydration Abdomen soft Pleasant cooperative Foot covered in dressing no drainage Discharge Data Studies Completed and Pending Pending at discharge Category Date Time Status Complete Blood Count w/Auto AM LABS Lab 05/26/23 04:00 Ordered Comprehensive Metabolic Panel AM LABS Lab 05/26/23 04:00 Ordered Magnesium AM LABS Lab 05/26/23 04:00 Ordered Laboratory Results WBC 13.20 10^3/uL (3.29-11.43) H 05/24/23 20:37 RBC 3.57 10^6/uL (3.85-5.65) L 05/24/23 20:37 Hgb 10.80 g/dL (11.27-16.99) L 05/24/23 20:37 Hct 30.4 % (36-47) L 05/24/23 20:37 MCV 85.2 fl (85-98) 05/24/23 20:37 MCH 30.3 pg (27-33) 05/24/23 20:37 MCHC 35.5 g/dL (30-55) 05/24/23 20:37 RDW 15.9 % (12.1-15.1) H 05/24/23 20:37 Plt Count 634 10^3/cmm (157-399) H 05/24/23 20:37 MPV 8.7 fL (7.4-10.4) 05/24/23 20:37 Neut % (Auto) 83.9 % 05/24/23 20:37 Lymph % (Auto) 8.5 % 05/24/23 20:37 Keith % (Auto) 6.7 % 05/24/23 20:37 Eos % (Auto) 0.4 % 05/24/23 20:37 Baso % (Auto) 0.2 % 05/24/23 20:37 Neut # (Auto) 11.09 10^3/uL (1.8-7.7) H 05/24/23 20:37 Lymph # (Auto) 1.1 10^3/uL (0.8-4.8) 05/24/23 20:37 Keith # (Auto) 0.9 10^3/uL (0.2-0.9) 05/24/23 20:37 Eos # (Auto) 0.1 10^3/uL (0.0-0.8) 05/24/23 20:37 Baso # (Auto) 0.0 10^3/uL (0.0-0.1) 05/24/23 20:37 Nucleated RBC % (auto) 0 % 05/24/23 20:37 Nucleated RBCs # 0.0 /100WBC 05/24/23 20:37 Sodium 128 mmol/L (136-145) L 05/25/23 04:08 Potassium 2.9 mmol/L (3.5-5.1) L 05/25/23 04:08 Chloride 80 mmol/L (98-107) L 05/25/23 04:08 Carbon Dioxide 30 mmol/L (22-29) H 05/25/23 04:08 Anion Gap 20.9 (5-19) H 05/25/23 04:08 BUN 12 mg/dL (6-20) 05/25/23 04:08 Creatinine 1.3 mg/dL (0.5-0.9) H 05/25/23 04:08 GFR Calculation 42.5 mL/min (90-130) L 05/25/23 04:08 Glucose 121 mg/dL (65-115) H 05/25/23 04:08 Calculated Osmolality 267 mOsm/kg (285-295) L 05/25/23 04:08 Lactic Acid 2.0 mmol/L (0.5-2.2) 05/24/23 20:37 Calcium 8.7 mg/dL (8.5-10.5) 05/25/23 04:08 Magnesium 1.9 mg/dL (1.7-2.3) 05/25/23 04:08 Total Bilirubin 0.4 mg/dL (0.15-1.2) 05/25/23 04:08 AST 19 U/L (0-32) 05/25/23 04:08 ALT 13 U/L (0-33) 05/25/23 04:08 Alkaline Phosphatase 112 U/L (35-105) H 05/25/23 04:08 Creatine Kinase 101 U/L (26-192) 05/24/23 20:37 C-Reactive Protein 20.8 mg/L (0.0-4.9) H 05/24/23 20:37 Total Protein 7.0 g/dL (6.6-8.7) D 05/25/23 04:08 Albumin 4.2 g/dL (3.5-5.2) 05/25/23 04:08 Globulin 2.8 g/dL (1.3-4.6) 05/25/23 04:08 Lipase 30 U/L (13-60) 05/24/23 20:37 Urine Color Yellow (Yellow) 05/24/23 20:55 Urine Appearance Clear (CLEAR) 05/24/23 20:55 Urine pH 9 (5-7) H 05/24/23 20:55 Ur Specific [place] 1.010 (1.005-1.030) 05/24/23 20:55 Urine Protein 1+ (Negative) H 05/24/23 20:55 Urine Glucose (UA) Norm (Normal) 05/24/23 20:55 Urine Ketones Negative (Negative) 05/24/23 20:55 Urine Blood Neg (Negative) 05/24/23 20:55 Urine Nitrate Negative (Negative) 05/24/23 20:55 Urine Bilirubin Neg (Negative) 05/24/23 20:55 Prot Sulfosalicylic Acd Positive (Negative) 05/24/23 20:55 Urine Urobilinogen Neg mg/dL (Negative) 05/24/23 20:55 Ur Leukocyte Esterase Negative (Negative) 05/24/23 20:55 Urine RBC None /hpf (0-2) 05/24/23 20:55 Urine WBC Rare /hpf (0-5) 05/24/23 20:55 Ur Squamous Epith Cells 0-4 /hpf (0-5) H 05/24/23 20:55 Amorphous Sediment 1+ /hpf 05/24/23 20:55 Urine Bacteria Trace /hpf (NONE) 05/24/23 20:55 Hyaline Casts 0-4 /lpf H 05/24/23 20:55 Urine Mucus 1+ /hpf 05/24/23 20:55 Urine Opiates Screen Negative ng/mL (Negative) 05/24/23 20:55 Ur Barbiturates Screen Negative ng/mL (Negative) 05/24/23 20:55 Ur Phencyclidine Scrn Negative ng/mL (Negative) 05/24/23 20:55 Ur Amphetamines Screen Negative ng/mL (Negative) 05/24/23 20:55 U Benzodiazepines Scrn Negative ng/mL (Negative) 05/24/23 20:55 Urine Cocaine Screen Negative ng/mL (Negative) 05/24/23 20:55 U Marijuana (THC) Screen Positive ng/mL (Negative) H 05/24/23 20:55 Ethyl Alcohol < 10 mg/dL (0-10) 05/24/23 20:37 Vitals Last Vital Signs Temp 98.3 F 05/25/23 15:53 Pulse 85 05/25/23 15:53 Resp 17 05/25/23 15:53 BP 125/72 05/25/23 15:53 Pulse Ox 93 05/25/23 15:53 O2 Del Method Room Air 05/25/23 15:53 Discharge Plan Discharge Patient Disposition: Home Condition: Stable Prescriptions: New ondansetron HCl 4 mg tablet 4 mg PO DAILY Qty: 10 0RF Continued hydrocodone-acetaminophen 5-325 mg tablet 1 tab PO Q6H PRN (Reason: pain) 2 Days Qty: 6 0RF Cymbalta 60 mg capsule,delayed release(DR/EC) 60 mg PO BID Qty: 60 0RF pantoprazole 40 mg tablet,delayed release (DR/EC) 40 mg PO BID pregabalin [Lyrica] 75 mg Capsule 75 mg PO TID amlodipine 10 mg tablet 10 mg PO QAM sennosides [senna] 8.6 mg Tablet 17.2 mg PO BEDTIME Qty: 30 0RF oxycodone 5 mg tablet 5 mg PO BID PRN (Reason: pain) Qty: 20 0RF daptomycin 500 mg recon soln 500 mg IV DAILY 42 Days Qty: 10 0RF Rx Instructions: administer over 30 mins @11:30 aspirin 81 mg tablet,delayed release (DR/EC) 81 mg PO QAM [id number] carb-vit K 18 mg iron-400 mcg-500 mg Tablet 1 tab PO QAM promethazine 25 mg tablet 25 mg PO Q6H PRN (Reason: Nausea) Qty: 10 0RF metoprolol tartrate 37.5 mg tablet 37.5 mg PO BID Discharge Orders: Discharge Order (Routine); Ordered 05/25/23 Ordered By: Tania Peck Referrals: Bucky Rogers MD [Primary Care Provider] - Discharge Diet: Cardiac and Diabetic Discharge Activity: Use walker/crutches as instructed and As per PT/OT instructions Patient Instructions: Ondansetron (By mouth), Acute Kidney Injury (DC), Opioid Safety Discharge Attestations Time Spent in Discharge Care*: less than 30 min Status at Discharge: Cognitive status at discharge: cognitively intact, Behavioral status at discharge: cooperative, Quality Metrics Clinical Quality Measures [ No reported AMI, CVA or VTE this stay] Coding Level of Care Code Acute Code for Chg Fwd Diagnoses Cyclical vomiting, intractable R11.15 Hypochloremic alkalosis E87.3 Hyponatremia E87.1 Acute kidney injury N17.9 Dehydration E86.0
== END 2023-05-25 17:55 | disposition home or self-care (01) ==
LOC: ER 21:01 → MEDSURG 23:12
PROVIDERS: Admitting Provider Student in an Organized Health Care Education/Training Program; Emergency Provider Emergency Medicine; PCP Family Medicine; Visit Provider Internal Medicine
DX: R11.15 Cyclical vomiting syndrome unrelated to migraine (principal); E87.3 Alkalosis; E87.1 Hypo-osmolality and hyponatremia; N17.9 Acute kidney failure, unspecified; E86.0 Dehydration; F12.90 Cannabis use, unspecified, uncomplicated; Z86.73 Personal history of transient ischemic attack (TIA), and cerebral infarction without residual deficits; I12.9 Hypertensive chronic kidney disease with stage 1 through stage 4 chronic kidney disease, or unspecified chronic kidney disease; N18.9 Chronic kidney disease, unspecified; F17.210 Nicotine dependence, cigarettes, uncomplicated
CPT/HCPCS: 36415; 36592; 80053; 80306; 80307; 81001; 82550; 83605; 83690; 83735; 85025; 86140; 96361; 96365; 96375; 96376; 99285; G0378; J0360; J0878; J1630; J2405; J3480; J3490; J7030

== ENCOUNTER 2023-05-27 09:00 | Outpatient (CLI) | payer MEDICARE, MEDICAID, SELFPAY ==
[2023-05-27 13:15] LABS: Basophils # 0.1 10^3/uL (0.0-0.1); Basophils % 0.8 %; Eosinophils # 0.4 10^3/uL (0.0-0.8); Eosinophils % 3.7 %; Hematocrit 26.6 % (36-47); Lymphocytes # 2.9 10^3/uL (0.8-4.8); Lymphocytes % 27.6 %; Mean Corpuscular HGB Conc 31.6 g/dL (30-55); Mean Corpuscular Hemoglobin 29.5 pg (27-33); Mean Corpuscular Volume 93.3 fl (85-98); Monocytes # 0.9 10^3/uL (0.2-0.9); Monocytes % 8.4 %; Neutrophils # 6.12 10^3/uL (1.8-7.7); Neutrophils % 58.8 %; Nucleated Red Blood Cells % 0 %; Platelet Count 619 10^3/cmm (157-399); Red Blood Count 2.85 10^6/uL (3.85-5.65); Red Cell Distribution Width 15.9 % (12.1-15.1); White Blood Count 10.39 10^3/uL (3.29-11.43)
[2023-05-27 13:35] LABS: C Reactive Protein 22.5 mg/L (0.0-4.9); Creatine Phosphokinase 158 U/L (26-192); Glomerular Filtration Rate 57.6 mL/min (90-130)
== END 2023-05-27 09:15 | disposition home or self-care (01) ==
LOC: LAB 09-03 09:59
PROVIDERS: PCP Family Medicine; Visit Provider Student in an Organized Health Care Education/Training Program
DX: L03.032 Cellulitis of left toe (principal)
CPT/HCPCS: 82550; 82565; 85025; 86140

== ENCOUNTER 2023-05-29 16:35 | Outpatient (CLI) | payer MEDICARE, MEDICAID, SELFPAY | END 2023-05-29 16:36 | disposition home or self-care (01) | LOC: SPT 05-30 10:59 | PROVIDERS: PCP Family Medicine; Visit Provider Podiatrist Foot & Ankle Surgery | DX: Z46.89 Encounter for fitting and adjustment of other specified devices (principal); S91.302D Unspecified open wound, left foot, subsequent encounter; X58.XXXD Exposure to other specified factors, subsequent encounter; Z98.890 Other specified postprocedural states; M79.672 Pain in left foot; M25.572 Pain in left ankle and joints of left foot; M96.0 Pseudarthrosis after fusion or arthrodesis | CPT/HCPCS: 99024; L4361 ==

== ENCOUNTER 2023-05-31 13:09 | Emergency (ER) | payer MEDICARE, MEDICAID, SELFPAY ==
[2023-05-31 13:19] VITALS: BP 200/125; PULSE 123; RESP 22; TEMP 36.3; O2SAT 97; BMI 25.8
[2023-05-31 14:56] VITALS: BP 190/129; PULSE 108; RESP 18; O2SAT 100
[2023-05-31 15:05] LABS: Glucose Point of Care 177 mg/dL (70-110)
--- NOTE | 2023-05-31 15:14 | W.ED.NAVMDI ---
HPI - Nausea/Vomiting/Diarrhea General: Chief complaint: Nausea/Vomiting/Diarrhea Stated complaint: N/V Time Seen by Provider: 05/31/23 14:56 Source: patient Mode of arrival: ambulatory History of Present Illness: 53-year-old female presents emergency room persistent nausea and vomiting that began this morning. She is having severe retching no hematemesis or coffee-ground emesis. She has had this multiple times in the past she does use medical marijuana on a regular basis. She denies any hematochezia or melena. MD elicited complaint: nausea and vomiting Description of vomiting: watery and bilious Associated nausea: Yes Associated abdominal pain: Yes Location of pain: Diffuse Pain consistency: constant Severity: severe Quality: cramping Exacerbating factors: none Relieving factors: none Associated symtoms: Reports anorexia, malaise and nausea; Denies altered mental status, anxiety, bloating, change in vision, chest pain, cough, diaphoresis, decreased urine output, dizziness, dysuria, epistaxis, fatigue, fecal incontinence, fevers/chills, headache(s), myalgias, numbness, palpitations, rash, short of breath, syncope, tenesmus, tinnitus or weakness Review of Systems Const: Reports: malaise; Denies: fever(s), chills, fatigue or diaphoresis Eyes: Denies: change in vision ENMT: Denies: tinnitus or epistaxis Card: Denies: chest pain, palpitations or syncope Resp: Denies: dyspnea, productive cough or non-productive cough GI: Reports: abdominal pain, nausea, vomiting and GI cramping; Denies: hematemesis, coffee ground emesis, bloating, fecal incontinence, hematochezia or melena : Denies: dysuria Skin/Breast: Denies: rash or pruritus Neuro: Denies: headache(s) or dizziness Psych: Denies: anxiety PFSH ED PFSH: Medical History Acute kidney injury Alcohol withdrawal Anxiety Cannabinoid hyperemesis syndrome Cannabis dependence, uncomplicated Cellulitis Cellulitis of toe of left foot Chronic kidney disease CVA (cerebral vascular accident) incidental finding on MR done for hearing loss, located in left cerebellar region on MRI performed early 2021 Cyclical vomiting Cyclical vomiting Cyclical vomiting, intractable DDD (degenerative disc disease), lumbosacral Dyslipidemia Elevated troponin Frozen shoulder syndrome GERD (gastroesophageal reflux disease) GI bleed nsaid induced gastritis Gout Hardware complicating wound infection Hepatitis B core antibody positive Surface antibody positive, surface antigen negative, HBV DNA and hepatitis b envelope Ag negative = equals past infection. Check LFTs q 3-6 months on biologic therapy. Repeat hepatitis serology if LFTs positive. Risk of reactivation. 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 Osteomyelitis Pain in left ankle Pain in left foot Plaque psoriasis Post-traumatic stress disorder, chronic Postoperative anemia Primary osteoarthritis of right knee Psoriatic arthritis Sepsis Septic arthritis Tendinopathy of right rotator cuff Surgical History History of ankle surgery multiple to left ankle History of colonoscopy (~09/2021) History of eye surgery Has metal around eye orbit History of hysterectomy History of pelvic surgery History of shoulder surgery History of toe surgery multiple to left foot Family History Mother Stroke Psychiatric illness bipolar/depression Cancer Hypertension Hyperlipidemia Heart disease Migraine Father Cancer lung Heart disease Brother Psychiatric illness depression Other CAD (coronary artery disease) Diabetes Lung disease Social History Smoking and tobacco status: current some day smoker cigarettes [ Other cigarette details: Quarter to half pack a day] Alcohol intake: current Substance/Drug Use: current Substance/Drug use frequency: daily Physical Exam Const: EXAM LIMITATIONS: no altered mental status GENERAL APPEARANCE: cooperative ORIENTATION/CONSCIOUSNESS: Yes awake, Yes oriented to person, Yes oriented to place and Yes oriented to time HENMT: COMMON NORMALS: normocephalic, atraumatic and hearing grossly normal bilaterally HEAD & SCALP: normocephalic and atraumatic Resp: COMMON NORMALS: normal respiratory effort, No retractions, No use of accessory muscles and clear to auscultation bilaterally AUSCULTATION: clear to auscultation bilaterally Cardio: COMMON NORMALS: regular rate, regular rhythm and No murmurs present (Cardio) RATE: regular rate RHYTHM: regular rhythm GI: COMMON NORMALS: Soft to palpation and No hepatosplenomegaly present AUSCULTATION: Yes normoactive bowel sounds PALPATION: Yes Soft to palpation, No Tenderness to palpation present (GI), No Guarding due to palpation present (GI) and Yes No hepatosplenomegaly present Extremity: COMMON NORMALS: normal to inspection, capillary refill normal, no clubbing, cyanosis or edema, no calf tenderness and no pedal edema Neuro: SENSORIUM/ORIENTATION: Yes oriented to person, Yes oriented to place and Yes oriented to time Skin: COMMON NORMALS: no rashes or lesions noted GENERAL SKIN EXAM: no rashes or lesions noted Course Vital Signs: Vital signs: Vital Signs Temperature 97.4 F L 05/31/23 13:19 Pulse Rate 106 H 05/31/23 17:00 Respiratory Rate 18 05/31/23 17:00 Blood Pressure 166/136 05/31/23 17:00 Pulse Oximetry 98 05/31/23 17:00 Oxygen Delivery Me thod Room Air 05/31/23 17:00 MDM - Nausea/Vomiting/Diarrhea Medical Decision Making Patient has relatively benign abdominal exam. Suspect this is her hyperemesis cannabinoid which she has had multiple times in the past she responded well to Haldol and Ativan for her nausea and vomiting. She is essentially symptom-free she is given IV fluids which also improved discharged home with sublingual olanzapine and buccal Ativan to use as needed encourage abstinence from marijuana. CT abdomen unremarkable Medical Records I reviewed the patient's medical records. Lab Data I reviewed the patient's lab results. 05/31/23 15:29 05/31/23 15:29 Radiology Impressions Abdomen/Pelvis CT 05/31/23 16:52 IMPRESSION: 1. Negative for acute inflammatory process in the abdomen or pelvis. 2. Emphysematous changes. 3. Hepatic steatosis. 4. Cholecystectomy. 5. Left kidney cyst, negative for follow-up advised. 6. Surgical hardware in the bilateral superior pubic rami as well as bridging the sacroiliac joints bilaterally along with surgical hardware in the left aspect the sacrum and iliac bone. Laboratory Results WBC 10.41 10^3/uL (3.29-11.43) 05/31/23 15: RBC 3.87 10^6/uL (3.85-5.65) 05/31/23 15: Hgb 11.60 g/dL (11.27-16.99) 05/31/23 15: Hct 34.3 % (36-47) L 05/31/23 15: MCV 88.6 fl (85-98) 05/31/23 15: MCH 30.0 pg (27-33) 05/31/23 15: MCHC 33.8 g/dL (30-55) 05/31/23 15: RDW 15.7 % (12.1-15.1) H 05/31/23: Plt Count 673 10^3/cmm (157-399) H 05/31/23 15: MPV 9.6 fL (7.4-10.4) 05/31/23 15: Neut % (Auto) 83.2 % 05/31/23 15: Lymph % (Auto) 8.9 % 05/31/23 15: [place] % (Auto) 4.9 % 05/31/23 15: Eos % (Auto) 1.6 % 05/31/23 15: Baso % (Auto) 0.5 % 05/31/23: Neut # (Auto) 8.66 10^3/uL (1.8-7.7) H 05/31/23 15: Lymph # (Auto) 0.9 10^3/uL (0.8-4.8) 05/31/23: [place] # (Auto) 0.5 10^3/uL (0.2-0.9) 05/31/23: Eos # (Auto) 0.2 10^3/uL (0.0-0.8) 05/31/23: Baso # (Auto) 0.1 10^3/uL (0.0-0.1) 05/31/23: Nucleated RBC % (auto) 0 % 05/31/23 15: Nucleated RBCs # 0.0 /100WBC 05/31/23 15:29 Specimen Type Arterial 05/31/23 16:06 Sample Site Brachial, right 05/31/23 16:06 ABG pH 7.70 (7.35-7.45) H* 05/31/23 16:06 ABG pCO2 21.2 mmHg (35-45) L 05/31/23 16:06 ABG pO2 71.0 mmHg (80.0-100.0) L 05/31/23 16:06 ABG HCO3 26.2 mmol/L (22-26) H 05/31/23 16:06 ABG O2 Saturation 97.4 05/31/23 16:06 ABG Base Excess 7.2 mmol/L (-2.0-2.0) H 05/31/23 16:06 Mckinley Test N/a 05/31/23 16:06 A-a O2 Gradient 6.6 mmHg (5-10) 05/31/23 16:06 Hematocrit 34.2 % (37-47) L 05/31/23 16:06 Hgb O2 Saturation 95.9 % (95-100) 05/31/23 16:06 Carboxyhemoglobin 1.2 %THgb (0.4-20.1) 05/31/23 16:06 Methemoglobin 0.4 % (0.4-1.5) 05/31/23 16:06 Total Hemoglobin 11.1 g/dL (12-16) L 05/31/23 16:06 Sodium 134.0 mmol/L (131-143) 05/31/23 16:06 Potassium 3.2 mmol/L (3.5-5.0) L 05/31/23 16:06 Glucose 153.0 mg/dL (70-115) H 05/31/23 16:06 Ionized Calcium 1.2 mmol/L (1.1-1.4) 05/31/23 16:06 O2 Delivery Device Room air 05/31/23 16:06 FiO2 21.0 % 05/31/23 16:06 Life Insurance Sales ID Amh 05/31/23 16:06 Sodium 129 mmol/L (136-145) L 05/31/23 15:29 Potassium 3.9 mmol/L (3.5-5.1) 05/31/23 15:29 Chloride 89 mmol/L (98-107) L 05/31/23 15:29 Carbon Dioxide 21 mmol/L (22-29) L 05/31/23 15:29 Anion Gap 22.9 (5-19) H 05/31/23 15:29 BUN 9 mg/dL (6-20) 05/31/23 15:29 Creatinine 1.0 mg/dL (0.5-0.9) H 05/31/23 15:29 GFR Calculation 57.6 mL/min (90-130) L 05/31/23 15:29 Glucose 151 mg/dL (65-115) H 05/31/23 15:29 POC Glucose 177 mg/dL (70-110) H 05/31/23 15:02 Calculated Osmolality 270 mOsm/kg (285-295) L 05/31/23 15:29 Calcium 10.3 mg/dL (8.5-10.5) 05/31/23 15:29 Total Bilirubin 0.3 mg/dL (0.15-1.2) 05/31/23 15:29 AST 18 U/L (0-32) 05/31/23 15:29 ALT 13 U/L (0-33) 05/31/23 15:29 Alkaline Phosphatase 165 U/L (35-105) H 05/31/23 15:29 Total Protein 8.6 g/dL (6.6-8.7) 05/31/23 15:29 Albumin 4.3 g/dL (3.5-5.2) 05/31/23 15:29 Globulin 4.3 g/dL (1.3-4.6) 05/31/23 15:29 Lipase 35 U/L (13-60) 05/31/23 15:29 Serum Ketones Negative (Negative) 05/31/23 15:29 All radiology interpretation(s) finalized by discharge Discharge Plan Discharge Patient Disposition: Home Clinical Impression: Cannabinoid hyperemesis syndrome Condition: Stable Prescriptions: New olanzapine 10 mg tablet,disintegrating 10 mg PO Q6H PRN (Reason: nausea and vomiting) Qty: 10 0RF Ativan 2 mg tablet 2 mg buccal Q6H PRN (Reason: nausea and vomiting) Qty: 10 0RF No Action (DME) CAM boot See Rx Instructions .Route .MEDSUPPLY Qty: 1 0RF Rx Instructions: As directed Cymbalta 60 mg capsule,delayed release(DR/EC) 60 mg PO BID Qty: 60 0RF pantoprazole 40 mg tablet,delayed release (DR/EC) 40 mg PO BID amlodipine 10 mg tablet 10 mg PO QAM sennosides [senna] 8.6 mg Tablet 17.2 mg PO BEDTIME Qty: 30 0RF oxycodone 5 mg tablet 5 mg PO BID PRN (Reason: pain) Qty: 20 0RF daptomycin 500 mg recon soln 500 mg IV DAILY 42 Days Qty: 10 0RF Rx Instructions: administer over 30 mins @11:30 metoprolol tartrate 50 mg tablet 50 mg PO BID pregabalin 100 mg capsule 100 mg PO BID aspirin 81 mg tablet,delayed release (DR/EC) 81 mg PO QAM promethazine 25 mg tablet 25 mg PO Q6H PRN (Reason: Nausea) Qty: 10 0RF ondansetron HCl 4 mg tablet 4 mg PO DAILY Qty: 10 0RF Discharge Orders: Discharge ED (Routine); Ordered 05/31/23 Ordered By: Lc Carreno Referrals: Bucky Rogers MD [Primary Care Provider] - Discharge Diet: Clear Liquid Discharge Activity: Increase activity as tolerated Patient Instructions: Opioid Safety, Pain Management Coding Level of Care Code ED Surgical Aides Teacher for 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
--- NOTE | 2023-05-31 15:17 | CT_ITS ---
WS: [id number] CT HEAD NONCONTRAST HISTORY: peristent N/v headache, accelerated HTN TECHNIQUE: Contiguous axial imaging performed through the brain in 2.5 mm imaging. Bone and soft tiss ue windows. Sagittal and coronal reformats reviewed. All CT scans at [facility] use at least one of these dose optimization techniques: automated exposure control; mA and/or kV adjustment per pa tient size (includes targeted exams where dose is matched to clinical indication); or iterative recon struction. DLP: 874.63 mGy.cm COMPARISON: None available. No acute intracranial hemorrhage, midline shift or mass effect. No atrophy or prior infarcts or herniation. Ventricles: Normal size with no hydrocephalus. Paranasal sinuses: As visualized are clear. Mastoid air cells: Well pneumatized. Calvarium and scalp: Skull is intact with no soft tissue edema or swelling. Metallic densities within the medial RIGHT orbit from prior repair. IMPRESSION: 1. No acute intracranial hemorrhage or edema. 2. No significant microvascular disease.
[2023-05-31] MEDS: sodium chloride 0.9% 1,000 ML 999 ML IV (15:22)
[2023-05-31] MEDS: labetalol 5 mg/mL SDV 20mL 10 MG IVP (15:22)
[2023-05-31] MEDS: hyDRALAzine 20 mg/mL INJ 1 mL IVP (15:22)
[2023-05-31 15:31] VITALS: BP 188/124
[2023-05-31 15:36] LABS: Basophils # 0.1 10^3/uL (0.0-0.1); Basophils % 0.5 %; Eosinophils # 0.2 10^3/uL (0.0-0.8); Eosinophils % 1.6 %; Hematocrit 34.3 % (36-47); Lymphocytes # 0.9 10^3/uL (0.8-4.8); Lymphocytes % 8.9 %; Mean Corpuscular HGB Conc 33.8 g/dL (30-55); Mean Corpuscular Volume 88.6 fl (85-98); Mean Platelet Volume 9.6 fL (7.4-10.4); Monocytes # 0.5 10^3/uL (0.2-0.9); Monocytes % 4.9 %; Neutrophils # 8.66 10^3/uL (1.8-7.7); Neutrophils % 83.2 %; Nucleated Red Blood Cells % 0 %; Platelet Count 673 10^3/cmm (157-399); Red Blood Count 3.87 10^6/uL (3.85-5.65); Red Cell Distribution Width 15.7 % (12.1-15.1); White Blood Count 10.41 10^3/uL (3.29-11.43)
[2023-05-31 15:48] LABS: Ketone (Acetest) Serum Negative (Negative)
[2023-05-31 15:56] LABS: Alanine Aminotransferase 13 U/L (0-33); Albumin Level 4.3 g/dL (3.5-5.2); Alkaline Phosphatase 165 U/L (35-105); Anion Gap 22.9 (5-19); Aspartate Amino Transferase 18 U/L (0-32); Blood Urea Nitrogen 9 mg/dL (6-20); Calcium 10.3 mg/dL (8.5-10.5); Carbon Dioxide 21 mmol/L (22-29); Chloride 89 mmol/L (98-107); Creatinine Clr Calc Pharmacy 64.8343; Globulin 4.3 g/dL (1.3-4.6); Glomerular Filtration Rate 57.6 mL/min (90-130); Glucose 151 mg/dL (65-115); Lipase 35 U/L (13-60); Osmolality Calculated 270 mOsm/kg (285-295); Potassium 3.9 mmol/L (3.5-5.1); Sodium 129 mmol/L (136-145); Total Bilirubin 0.3 mg/dL (0.15-1.2); Total Protein 8.6 g/dL (6.6-8.7)
[2023-05-31] MEDS: pantoprazole 40 mg SDV 80 MG IVP (16:17)
[2023-05-31] MEDS: ondansetron 2 mg/ML SDV 2 mL 4 MG IVP (16:17)
[2023-05-31 16:18] LABS: ABG PCO2 21.2 mmHg (35-45); Alveolar-Arterial Oxygen Gradi 6.6 mmHg (5-10); Arterial Blood Gas Hematocrit 34.2 % (37-47); Base Excess ABG 7.2 mmol/L (-2.0-2.0); Blood Gas Operator Identificat AMH; Blood Gas Sample Site Brachial, right; Blood Gas Sample Type Arterial; Carboxyhemoglobin 1.2 %THgb (0.4-20.1); HCO3 ABG 26.2 mmol/L (22-26); HGB O2 Sat 95.9 % (95-100); Ionized Calcium Level - ABG 1.2 mmol/L (1.1-1.4); Methemoglobin 0.4 % (0.4-1.5); Oxygen Device ROOM AIR; Oxygen Saturation ABG 97.4; Potassium Level - ABG 3.2 mmol/L (3.5-5.0); Total Hemoglobin 11.1 g/dL (12-16)
[2023-05-31] MEDS: LORazepam 2 mg/mL INJ 1 mL IVP (16:32)
--- NOTE | 2023-05-31 16:52 | CTR_ITS ---
PROCEDURE INFORMATION: Exam: CT Abdomen And Pelvis Without Contrast Exam date and time: 05/31/2023 5:08 PM Age: 53 years old Clinical indication: Abdominal pain; Generalized; Prior surgery; Surgery date: 6+ months; Surgery type: Gb, pelvis TECHNIQUE: Imaging protocol: Computed tomography of the abdomen and pelvis without contrast. Radiation optimization: All CT scans at this facility use at least one of these dose optimization techniques: automated exposure control; mA and/or kV adjustment per patient size (includes targeted exams where dose is matched to clinical indication); or iterative reconstruction. REPORTING DATA: Count of CT and Cardiac NM exams in prior 12 months: This patient has received 7 known CTs and 0 known cardiac nuclear medicine studies in the 12 months prior to the current study. COMPARISON: CT abdomen pelvis wo con [id number] 05/08/2023 5:25 PM RADIATION DOSE METRICS: Total DLP (mGy-cm): 572.33 FINDINGS: Lungs: Emphysematous changes. Liver: Hepatic steatosis. Gallbladder and bile ducts: Cholecystectomy. Pancreas: Normal. No ductal dilation. Spleen: Normal. No splenomegaly. Adrenal glands: Normal. No mass. Kidneys and ureters: Left kidney cyst, negative for follow-up advised. Stomach and bowel: Unremarkable. No obstruction. No mucosal thickening. Appendix: No evidence of appendicitis. Intraperitoneal space: Unremarkable. No free air. No significant fluid collection. Vasculature: Unremarkable. No abdominal aortic aneurysm. Lymph nodes: Unremarkable. No enlarged lymph nodes. Urinary bladder: Unremarkable as visualized. Reproductive: Unremarkable as visualized. Bones/joints: Surgical hardware in the bilateral superior pubic rami as well as bridging the sacroiliac joints bilaterally along with surgical hardware in the left aspect the sacrum and iliac bone. Soft tissues: Unremarkable. CT/CT abdomen pelvis wo con [id number] IMPRESSION: 1. Negative for acute inflammatory process in the abdomen or pelvis. 2. Emphysematous changes. 3. Hepatic steatosis. 4. Cholecystectomy. 5. Left kidney cyst, negative for follow-up advised. 6. Surgical hardware in the bilateral superior pubic rami as well as bridging the sacroiliac joints bilaterally along with surgical hardware in the left aspect the sacrum and iliac bone.
[2023-05-31] MEDS: haloperidol inj 5 mg/mL INJ 1 mL 2.5 MG IVP (16:55)
[2023-05-31 17:00] VITALS: BP 166/136; PULSE 106; RESP 18; O2SAT 98
== END 2023-05-31 18:12 | disposition home or self-care (01) ==
PROVIDERS: Emergency Provider Family Medicine; PCP Family Medicine
DX: R11.2 Nausea with vomiting, unspecified (principal); F12.90 Cannabis use, unspecified, uncomplicated; Z79.82 Long term (current) use of aspirin; Z90.49 Acquired absence of other specified parts of digestive tract; F17.210 Nicotine dependence, cigarettes, uncomplicated; Z86.73 Personal history of transient ischemic attack (TIA), and cerebral infarction without residual deficits; I12.9 Hypertensive chronic kidney disease with stage 1 through stage 4 chronic kidney disease, or unspecified chronic kidney disease; N18.9 Chronic kidney disease, unspecified; E78.5 Hyperlipidemia, unspecified; Z86.19 Personal history of other infectious and parasitic diseases
CPT/HCPCS: 36415; 36416; 36600; 70450; 74176; 80051; 80053; 82009; 82330; 82805; 82962; 83690; 85025; 96374; 96375; 99285; C9113; J0360; J1630; J2060; J2405; J3490; J7030

== ENCOUNTER 2023-06-03 15:00 | Outpatient (CLI) | payer MEDICARE, MEDICAID, SELFPAY ==
[2023-06-03 14:06] LABS: Basophils % 0.2 %; Eosinophils # 0.7 10^3/uL (0.0-0.8); Eosinophils % 3.6 %; Hematocrit 25.5 % (36-47); Lymphocytes # 1.9 10^3/uL (0.8-4.8); Lymphocytes % 9.8 %; Mean Corpuscular HGB Conc 32.9 g/dL (30-55); Mean Corpuscular Hemoglobin 30.2 pg (27-33); Mean Corpuscular Volume 91.7 fl (85-98); Mean Platelet Volume 9.1 fL (7.4-10.4); Monocytes # 1.1 10^3/uL (0.2-0.9); Monocytes % 5.6 %; Neutrophils # 15.21 10^3/uL (1.8-7.7); Neutrophils % 80.1 %; Nucleated Red Blood Cells % 0 %; Platelet Count 575 10^3/cmm (157-399); Red Blood Count 2.78 10^6/uL (3.85-5.65); Red Cell Distribution Width 15.7 % (12.1-15.1); White Blood Count 19.01 10^3/uL (3.29-11.43)
[2023-06-03 14:52] LABS: Creatine Phosphokinase 99 U/L (26-192); Glomerular Filtration Rate 51.6 mL/min (90-130)
== END 2023-06-03 15:01 | disposition home or self-care (01) ==
LOC: LAB 10-21 15:08
PROVIDERS: PCP Family Medicine; Visit Provider Student in an Organized Health Care Education/Training Program
DX: L03.032 Cellulitis of left toe (principal)
CPT/HCPCS: 82550; 82565; 85025; 86140

== ENCOUNTER → 2023-06-05 13:03 | Outpatient (BNVA) | payer MEDICARE, MEDICAID, SELFPAY | PROVIDERS: PCP Family Medicine; Visit Provider Podiatrist Foot & Ankle Surgery | DX: M96.0 Pseudarthrosis after fusion or arthrodesis; L97.522 Non-pressure chronic ulcer of other part of left foot with fat layer exposed | CPT/HCPCS: 11042 ==

== ENCOUNTER 2023-06-10 15:27 | Outpatient (CLI) | payer MEDICARE, MEDICAID, SELFPAY ==
[2023-06-10 15:57] LABS: Basophils # 0.1 10^3/uL (0.0-0.1); Basophils % 0.5 %; Eosinophils # 2.2 10^3/uL (0.0-0.8); Eosinophils % 14.4 %; Hematocrit 25.6 % (36-47); Lymphocytes # 3.2 10^3/uL (0.8-4.8); Lymphocytes % 20.6 %; Mean Corpuscular HGB Conc 31.6 g/dL (30-55); Mean Corpuscular Hemoglobin 29.3 pg (27-33); Mean Corpuscular Volume 92.8 fl (85-98); Mean Platelet Volume 9.4 fL (7.4-10.4); Monocytes # 0.7 10^3/uL (0.2-0.9); Monocytes % 4.4 %; Neutrophils # 9.04 10^3/uL (1.8-7.7); Neutrophils % 58.8 %; Nucleated Red Blood Cells % 0 %; Platelet Count 660 10^3/cmm (157-399); Red Blood Count 2.76 10^6/uL (3.85-5.65); Red Cell Distribution Width 15.9 % (12.1-15.1)
[2023-06-10 16:07] LABS: C Reactive Protein 68.7 mg/L (0.0-4.9); Creatine Phosphokinase 65 U/L (26-192); Glomerular Filtration Rate 51.6 mL/min (90-130)
== END 2023-06-10 15:28 | disposition home or self-care (01) ==
LOC: LAB 15:30
PROVIDERS: PCP Family Medicine; Visit Provider Student in an Organized Health Care Education/Training Program
DX: L03.032 Cellulitis of left toe (principal)
CPT/HCPCS: 82550; 82565; 85025; 86140

== ENCOUNTER 2023-06-13 03:26 | Emergency (ER) | payer MEDICARE, MEDICAID, SELFPAY ==
[2023-06-13] VITALS (7 sets, daily range): BP systolic 182–199; BP diastolic 112–127; PULSE 92–113; RESP 15–25; TEMP 36.7; O2SAT 98–100; BMI 25.8
--- NOTE | 2023-06-13 03:40 | ED_ITS ---
HPI - Nausea/Vomiting/Diarrhea General: Chief complaint: Nausea/Vomiting/Diarrhea Stated complaint: nausea Time Seen by Provider: 06/13/23 03:33 History of Present Illness: Patient presents to the ER with nausea vomiting diarrhea abdominal pain for the last 8 hours. Patient currently has a PICC line for a nonhealing sore in her right foot. This is being followed by podiatry. Review of the chart showed patient has a history of cannabinoid hyperemesis. Patient had a abdomen pelvis CT on 05/31. Review of Systems General: Reports: 10 or more systems reviewed and unremarkable except in HPI and below PFSH ED PFSH: Medical History Acute kidney injury Alcohol withdrawal Anxiety Cannabinoid hyperemesis syndrome Cannabis dependence, uncomplicated Cellulitis Cellulitis of toe of left foot Chronic kidney disease CVA (cerebral vascular accident) incidental finding on MR done for hearing loss, located in left cerebellar region on MRI performed early 2021 Cyclical vomiting Cyclical vomiting Cyclical vomiting, intractable DDD (degenerative disc disease), lumbosacral Dyslipidemia Elevated troponin Frozen shoulder syndrome GERD (gastroesophageal reflux disease) GI bleed nsaid induced gastritis Gout Hardware complicating wound infection Hepatitis B core antibody positive Surface antibody positive, surface antigen negative, HBV DNA and hepatitis b envelope Ag negative = equals past infection. Check LFTs q 3-6 months on biologic therapy. Repeat hepatitis serology if LFTs positive. Risk of reactivation. 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 Osteomyelitis Pain in left ankle Pain in left foot Plaque psoriasis Post-traumatic stress disorder, chronic Postoperative anemia Primary osteoarthritis of right knee Psoriatic arthritis Sepsis Septic arthritis Tendinopathy of right rotator cuff Surgical History History of ankle surgery multiple to left ankle History of colonoscopy (~09/2021) History of eye surgery Has metal around eye orbit History of hysterectomy History of pelvic surgery History of shoulder surgery History of toe surgery multiple to left foot Family History Mother Stroke Psychiatric illness bipolar/depression Cancer Hypertension Hyperlipidemia Heart disease Migraines Father Cancer lung Heart disease Brother Psychiatric illness depression Other CAD (coronary artery disease) Diabetes Lung disease Social History Smoking and tobacco/nicotine status: current some day tobacco/nicotine user cigarettes [ Other cigarette details: Quarter to half pack a day] Alcohol intake: current Substance/Drug Use: current Substance/Drug use frequency: daily Physical Exam Const: COMMON NORMALS: no acute distress, average body habitus, patient oriented x3, no limitations, healthy appearing, alert and well nourished HENMT: COMMON NORMALS: normocephalic, atraumatic, hearing grossly normal bilaterally, external ears normal, Normal external nose present, moist oral mucous membranes and oropharynx normal HEAD & SCALP: normocephalic and atraumatic NOSE: Normal external nose present EXTERNAL EAR: Yes external ears normal Neck/C-Spine: COMMON NORMALS: no JVD Chest: COMMONS NORMALS: normal inspection of the chest and normal palpation of entire chest wall Resp: COMMON NORMALS: normal respiratory effort, No retractions, No use of accessory muscles and clear to auscultation bilaterally AUSCULTATION: clear to auscultation bilaterally Cardio: COMMON NORMALS: no JVD, regular rate, regular rhythm, S1 normal heart sound present, S2 normal heart sound present, No gallops present (Cardio), No clicks present (Cardio), No murmurs present (Cardio) and No rub (Cardio) RATE: regular rate RHYTHM: regular rhythm HEART SOUNDS: S1 normal heart sound present and S2 normal heart sound present GI: COMMON NORMALS: Normal to inspection, nondistended, normoactive bowel sounds present, Soft to palpation, No hepatosplenomegaly present and no masses; negative for non-tender (Mild tender to palpation over epigastric region and right upper quadrant) PALPATION: Yes Soft to palpation and Yes No hepatosplenomegaly present : COMMON NORMALS: Yes no CVA tenderness BLADDER/KIDNEY EXAM: Yes no CVA tenderness Back/Pelvis: COMMON NORMALS: no CVA tenderness Neuro: COMMON NORMALS: patient oriented x3 SENSORIUM/ORIENTATION: Yes alert Course Vital Signs: Vital signs: Vital Signs Temperature 98.1 F 10/12/23 03:29 Pulse Rate 113 H 06/13/23 05:30 Respiratory Rate 18 06/13/23 05:30 Blood Pressure 199/121 06/13/23 05:30 Pulse Oximetry 98 06/13/23 05:30 Oxygen Delivery Me thod Room Air 06/13/23 05:21 MDM - Nausea/Vomiting/Diarrhea Medical Decision Making Presents to the ER with nausea vomiting diarrhea and abdominal pain. Patient is currently has a PICC line for a nonhealing wound on her foot. She is on daptomycin. Lab work was obtained her white count is elevated but improving at 15, hemoglobin was improved at 9.5, potassium was mildly low at 3.2. Patient was given Toradol 30 mg, Zofran 4 mg, 1 L bolus of normal saline, hydralazine 20 mg, Haldol 5 mg and lorazepam 1 mg. Blood pressure marginally improved, was nausea and vomiting improved. Patient will be discharged home to follow-up with her family practice physician. Differential Diagnosis Likely gastroenteritis and drug-induced nausea and vomiting; Unlikely traveler's diarrhea, food poisoning, clostridium difficile infection or dehydration Medical Records I reviewed the patient's medical records. Lab Data I reviewed the patient's lab results. 06/13/23 03:55 06/13/23 03:55 Laboratory Results WBC 15.15 10^3/uL (3.29-11.43) H 06/13/23 03:55 RBC 3.25 10^6/uL (3.85-5.65) L 06/13/23 03:55 Hgb 9.50 g/dL (11.27-16.99) L 06/13/23 03:55 Hct 28.3 % (36-47) L 06/13/23 03:55 MCV 87.1 fl (85-98) 06/13/23 03:55 MCH 29.2 pg (27-33) 06/13/23 03:55 MCHC 33.6 g/dL (30-55) 06/13/23 03:55 RDW 15.3 % (12.1-15.1) H 06/13/23 03:55 Plt Count 760 10^3/cmm (157-399) H 06/13/23 03:55 MPV 9.4 fL (7.4-10.4) 06/13/23 03:55 Neut % (Auto) 89.2 % 06/13/23 03:55 Lymph % (Auto) 7.1 % 06/13/23 03:55 [place] % (Auto) 2.1 % 06/13/23 03:55 Eos % (Auto) 0.2 % 06/13/23 03:55 Baso % (Auto) 0.4 % 06/13/23 03:55 Neut # (Auto) 13.51 10^3/uL (1.8-7.7) H 06/13/23 03:55 Lymph # (Auto) 1.1 10^3/uL (0.8-4.8) 06/13/23 03:55 [place] # (Auto) 0.3 10^3/uL (0.2-0.9) 06/13/23 03:55 Eos # (Auto) 0.0 10^3/uL (0.0-0.8) 06/13/23 03:55 Baso # (Auto) 0.1 10^3/uL (0.0-0.1) 06/13/23 03:55 Nucleated RBC % (auto) 0 % 06/13/23 03:55 Nucleated RBCs # 0.0 /100WBC 06/13/23 03:55 Sodium 131 mmol/L (136-145) L 06/13/23 03:55 Potassium 3.2 mmol/L (3.5-5.1) L 06/13/23 03:55 Chloride 92 mmol/L (98-107) L 06/13/23 03:55 Carbon Dioxide 23 mmol/L (22-29) 06/13/23 03:55 Anion Gap 19.2 (5-19) H 06/13/23 03:55 BUN 12 mg/dL (6-20) 06/13/23 03:55 Creatinine 0.8 mg/dL (0.5-0.9) 06/13/23 03:55 GFR Calculation 74.5 mL/min (90-130) L 06/13/23 03:55 Glucose 163 mg/dL (65-115) H 06/13/23 03:55 Calculated Osmolality 275 mOsm/kg (285-295) L 06/13/23 03:55 Calcium 9.9 mg/dL (8.5-10.5) 06/13/23 03:55 Total Bilirubin 0.2 mg/dL (0.15-1.2) 06/13/23 03:55 AST 15 U/L (0-32) 06/13/23 03:55 ALT 18 U/L (0-33) 06/13/23 03:55 Alkaline Phosphatase 173 U/L (35-105) H 06/13/23 03:55 Total Protein 8.3 g/dL (6.6-8.7) 06/13/23 03:55 Albumin 4.0 g/dL (3.5-5.2) 06/13/23 03:55 Globulin 4.3 g/dL (1.3-4.6) 06/13/23 03:55 Lipase 40 U/L (13-60) 06/13/23 03:55 Urine Color Yellow (Yellow) 06/13/23 04:46 Urine Appearance Sl hazy (CLEAR) A 06/13/23 04:46 Urine pH 8 (5-7) H 06/13/23 04:46 Ur Specific [place] 1.015 (1.005-1.030) 06/13/23 04:46 Urine Protein 1+ (Negative) H 06/13/23 04:46 Urine Glucose (UA) 1+ (Normal) H 06/13/23 04:46 Urine Ketones 1+ (Negative) H 06/13/23 04:46 Urine Blood Neg (Negative) 06/13/23 04:46 Urine Nitrate Negative (Negative) 06/13/23 04:46 Urine Bilirubin Neg (Negative) 06/13/23 04:46 Prot Sulfosalicylic Acd Positive (Negative) 06/13/23 04:46 Urine Urobilinogen Neg mg/dL (Negative) 06/13/23 04:46 Ur Leukocyte Esterase Negative (Negative) 06/13/23 04:46 Urine RBC None /hpf (0-2) 06/13/23 04:46 Urine WBC None /hpf (0-5) 06/13/23 04:46 Ur Squamous Epith Cells None /hpf (0-5) 06/13/23 04:46 Ur Transition Epith Cell 0-4 /hpf 06/13/23 04:46 Amorphous Sediment Not Reportable 06/13/23 04:46 Urine Bacteria Trace /hpf (NONE) 06/13/23 04:46 Urine Mucus 2+ /hpf 06/13/23 04:46 No radiology studies performed this visit Discharge Plan Discharge Patient Disposition: Home Clinical Impression: Gastroenteritis Hypertension Qualifiers: Hypertension type: unspecified Qualified Code(s): I10 - Essential (primary) hypertension Condition: Stable Prescriptions: No Action (DME) CAM boot See Rx Instructions .Route .MEDSUPPLY Qty: 1 0RF Rx Instructions: As directed Cymbalta 60 mg capsule,delayed release(DR/EC) 60 mg PO BID Qty: 60 0RF pantoprazole 40 mg tablet,delayed release (DR/EC) 40 mg PO BID amlodipine 10 mg tablet 10 mg PO QAM sennosides [senna] 8.6 mg Tablet 17.2 mg PO BEDTIME Qty: 30 0RF oxycodone 5 mg tablet 5 mg PO BID PRN (Reason: pain) Qty: 20 0RF daptomycin 500 mg recon soln 500 mg IV DAILY 42 Days Qty: 10 0RF Rx Instructions: administer over 30 mins @11:30 metoprolol tartrate 50 mg tablet 50 mg PO BID pregabalin 100 mg capsule 100 mg PO BID olanzapine 10 mg tablet,disintegrating 10 mg PO Q6H PRN (Reason: nausea and vomiting) Qty: 10 0RF Ativan 2 mg tablet 2 mg buccal Q6H PRN (Reason: nausea and vomiting) Qty: 10 0RF aspirin 81 mg tablet,delayed release (DR/EC) 81 mg PO QAM promethazine 25 mg tablet 25 mg PO Q6H PRN (Reason: Nausea) Qty: 10 0RF ondansetron HCl 4 mg tablet 4 mg PO DAILY Qty: 10 0RF Discharge Orders: Discharge ED (Routine); Ordered 06/13/23 Ordered By: Mainor Rouse Referrals: Bucky Rogers MD [Primary Care Provider] - 7-10 days Patient Instructions: Gastroenteritis (ED), Hypertension (ED) Activity Restrictions/Additional Instructions: Continue taking all your home meds as directed. Please continue to push fluids as to not get dehydrated. Please keep a blood pressure log and take it with you to your next appointment with your family doctor in the next 7 days or sooner. Coding Level of Care Code ED Cryogenic Transport Driver for Petrona Smipson
[2023-06-13] MEDS: ondansetron 2 mg/ML SDV 2 mL 4 MG IVP (03:53)
[2023-06-13] MEDS: hyDRALAzine 20 mg/mL INJ 1 mL IVP (03:53)
[2023-06-13] MEDS: ketorolac 30 mg/mL INJ IVP (03:53)
[2023-06-13] MEDS: sodium chloride 0.9% 1,000 ML 999 ML IV (03:53)
[2023-06-13 04:05] LABS: Basophils # 0.1 10^3/uL (0.0-0.1); Basophils % 0.4 %; Eosinophils % 0.2 %; Hematocrit 28.3 % (36-47); Lymphocytes # 1.1 10^3/uL (0.8-4.8); Lymphocytes % 7.1 %; Mean Corpuscular HGB Conc 33.6 g/dL (30-55); Mean Corpuscular Hemoglobin 29.2 pg (27-33); Mean Corpuscular Volume 87.1 fl (85-98); Mean Platelet Volume 9.4 fL (7.4-10.4); Monocytes # 0.3 10^3/uL (0.2-0.9); Monocytes % 2.1 %; Neutrophils # 13.51 10^3/uL (1.8-7.7); Neutrophils % 89.2 %; Nucleated Red Blood Cells % 0 %; Platelet Count 760 10^3/cmm (157-399); Red Blood Count 3.25 10^6/uL (3.85-5.65); Red Cell Distribution Width 15.3 % (12.1-15.1); White Blood Count 15.15 10^3/uL (3.29-11.43)
[2023-06-13 04:25] LABS: Alanine Aminotransferase 18 U/L (0-33); Alkaline Phosphatase 173 U/L (35-105); Anion Gap 19.2 (5-19); Aspartate Amino Transferase 15 U/L (0-32); Blood Urea Nitrogen 12 mg/dL (6-20); Calcium 9.9 mg/dL (8.5-10.5); Carbon Dioxide 23 mmol/L (22-29); Chloride 92 mmol/L (98-107); Globulin 4.3 g/dL (1.3-4.6); Glomerular Filtration Rate 74.5 mL/min (90-130); Glucose 163 mg/dL (65-115); Lipase 40 U/L (13-60); Osmolality Calculated 275 mOsm/kg (285-295); Potassium 3.2 mmol/L (3.5-5.1); Sodium 131 mmol/L (136-145); Total Bilirubin 0.2 mg/dL (0.15-1.2); Total Protein 8.3 g/dL (6.6-8.7)
[2023-06-13] MEDS: LORazepam 2 mg/mL INJ 1 mL 1 MG IVP (05:01)
[2023-06-13] MEDS: haloperidol inj 5 mg/mL INJ 1 mL IVP (05:01)
[2023-06-13 05:03] LABS: Add Urine Microscopic? YES; Bilirubin Urine Neg (Negative); Blood Urine Neg (Negative); Glucose Urine UA 1+ (Normal); Ketones Urine 1+ (Negative); Leukocyte Esterase Urine Negative (Negative); Nitrate Urine Negative (Negative); Protein Urine 1+ (Negative); Specific Gravity, Urine 1.015 (1.005-1.030); Sulfosalicylic Acid Urine Positive (Negative); Urine Appearance SL Hazy (CLEAR); Urine Color Yellow (Yellow); Urobilinogen Urine Neg (Negative); pH Urine 8 (5-7)
[2023-06-13 05:04] LABS: Add Urine Culture? No; Bacteria Urine TRACE /hpf; Mucus Urine 2+ /hpf; Transitional Epi Cells Urine 0-4 /hpf
--- NOTE | 2023-06-13 05:27 | PC.NURSE ---
Dr Rouse notified of patient's BP prior to dc. Order for clonidine was put in.
[2023-06-13] MEDS: cloNIDine 0.1 mg Tablet 0.2 MG PO (05:29)
== END 2023-06-13 05:35 | disposition home or self-care (01) ==
PROVIDERS: Emergency Provider Emergency Medicine; PCP Family Medicine
DX: K52.9 Noninfective gastroenteritis and colitis, unspecified (principal); Z79.82 Long term (current) use of aspirin; F17.210 Nicotine dependence, cigarettes, uncomplicated; I12.9 Hypertensive chronic kidney disease with stage 1 through stage 4 chronic kidney disease, or unspecified chronic kidney disease; N18.9 Chronic kidney disease, unspecified; Z86.73 Personal history of transient ischemic attack (TIA), and cerebral infarction without residual deficits; E78.5 Hyperlipidemia, unspecified; Z86.19 Personal history of other infectious and parasitic diseases
CPT/HCPCS: 80053; 81001; 83690; 85025; 96374; 96375; 99284; J0360; J1630; J1885; J2060; J2405; J7030

== ENCOUNTER 2023-06-18 12:15 | Outpatient (CLI) | payer MEDICARE, MEDICAID, SELFPAY ==
[2023-06-18 13:13] LABS: Basophils # 0.1 10^3/uL (0.0-0.1); Basophils % 1.1 %; Eosinophils # 2.1 10^3/uL (0.0-0.8); Eosinophils % 20.1 %; Hematocrit 27.9 % (36-47); Lymphocytes # 2.9 10^3/uL (0.8-4.8); Lymphocytes % 27.9 %; Mean Corpuscular HGB Conc 31.2 g/dL (30-55); Mean Corpuscular Hemoglobin 28.7 pg (27-33); Mean Corpuscular Volume 92.1 fl (85-98); Mean Platelet Volume 8.9 fL (7.4-10.4); Monocytes % 9.6 %; Neutrophils # 4.24 10^3/uL (1.8-7.7); Neutrophils % 40.8 %; Nucleated Red Blood Cells % 0 %; Platelet Count 673 10^3/cmm (157-399); Red Blood Count 3.03 10^6/uL (3.85-5.65); Red Cell Distribution Width 15.6 % (12.1-15.1); White Blood Count 10.37 10^3/uL (3.29-11.43)
[2023-06-18 13:43] LABS: Ferritin 86 ng/mL (15-150); Iron 79 ug/dL (37-145); Percent Saturation 30.8 % (20-50); Total Iron Binding Capacity 256 mcg/dl; Unsaturated Iron Binding 177 ug/dL (112-347); Vitamin B12 488 pg/mL (232-1245)
[2023-06-18 13:47] LABS: Folate Level 14.7 ng/mL (4.8-37.3)
[2023-06-18 14:39] LABS: Reticulocyte % 2.2 % (0.5-2.0)
== END 2023-06-18 12:16 | disposition home or self-care (01) ==
LOC: LAB 12:18
PROVIDERS: PCP Family Medicine; Visit Provider Family Medicine
DX: D64.9 Anemia, unspecified (principal)
CPT/HCPCS: 82607; 82728; 82746; 83540; 83550; 85025; 85045

== ENCOUNTER 2023-06-24 15:33 | Outpatient (CLI) | payer MEDICARE, MEDICAID, SELFPAY ==
[2023-06-24 15:44] LABS: Basophils # 0.1 10^3/uL (0.0-0.1); Basophils % 0.6 %; Eosinophils # 1.2 10^3/uL (0.0-0.8); Eosinophils % 10.7 %; Hematocrit 27.1 % (36-47); Lymphocytes # 2.8 10^3/uL (0.8-4.8); Lymphocytes % 24.1 %; Mean Corpuscular Hemoglobin 28.8 pg (27-33); Mean Corpuscular Volume 92.8 fl (85-98); Mean Platelet Volume 9.2 fL (7.4-10.4); Monocytes # 0.8 10^3/uL (0.2-0.9); Monocytes % 6.9 %; Neutrophils # 6.51 10^3/uL (1.8-7.7); Neutrophils % 57.2 %; Nucleated Red Blood Cells % 0 %; Platelet Count 637 10^3/cmm (157-399); Red Blood Count 2.92 10^6/uL (3.85-5.65)
[2023-06-24 16:26] LABS: C Reactive Protein 12.9 mg/L (0.0-4.9); Creatine Phosphokinase 78 U/L (26-192); Glomerular Filtration Rate 57.6 mL/min (90-130)
== END 2023-06-24 15:34 | disposition home or self-care (01) ==
LOC: LAB 15:34
PROVIDERS: PCP Family Medicine; Visit Provider Student in an Organized Health Care Education/Training Program
DX: L03.032 Cellulitis of left toe (principal)
CPT/HCPCS: 82550; 82565; 85025; 86140

== ENCOUNTER → 2023-06-26 15:06 | Outpatient (BNVA) | payer MEDICARE, MEDICAID, SELFPAY | PROVIDERS: PCP Family Medicine; Visit Provider Podiatrist Foot & Ankle Surgery | DX: M79.672 Pain in left foot (principal); M25.572 Pain in left ankle and joints of left foot; M96.0 Pseudarthrosis after fusion or arthrodesis; L97.522 Non-pressure chronic ulcer of other part of left foot with fat layer exposed | CPT/HCPCS: 99024 ==

== ENCOUNTER → 2023-07-11 10:46 | Outpatient (BNVA) | payer MEDICARE, MEDICAID, SELFPAY | PROVIDERS: PCP Family Medicine; Visit Provider Student in an Organized Health Care Education/Training Program | DX: T84.7XXA Infection and inflammatory reaction due to other internal orthopedic prosthetic devices, implants and grafts, initial encounter (principal); M00.9 Pyogenic arthritis, unspecified; X58.XXXA Exposure to other specified factors, initial encounter | CPT/HCPCS: 99213 ==

== ENCOUNTER → 2023-07-17 13:26 | Outpatient (BNVA) | payer MEDICARE, MEDICAID, SELFPAY | PROVIDERS: PCP Family Medicine; Visit Provider Podiatrist Foot & Ankle Surgery | DX: Z98.890 Other specified postprocedural states (principal); M25.572 Pain in left ankle and joints of left foot; M96.0 Pseudarthrosis after fusion or arthrodesis; L97.522 Non-pressure chronic ulcer of other part of left foot with fat layer exposed | CPT/HCPCS: 99024 ==

== ENCOUNTER → 2023-07-22 08:00 | Outpatient (BNVA) | payer MEDICARE, MEDICAID, SELFPAY | PROVIDERS: PCP Family Medicine; Visit Provider Specialist | DX: M19.012 Primary osteoarthritis, left shoulder (principal); M19.011 Primary osteoarthritis, right shoulder; M67.912 Unspecified disorder of synovium and tendon, left shoulder | CPT/HCPCS: 99213 ==

== ENCOUNTER 2023-08-20 05:35 | Inpatient (IN) | payer MEDICARE, MEDICAID, SELFPAY ==
[2023-08-20] VITALS (15 sets, daily range): BP systolic 89–155; BP diastolic 73–102; PULSE 96–135; RESP 18–35; TEMP 36.8–37; O2SAT 91–98; BMI 29.0; BMI 26.6
--- NOTE | 2023-08-20 05:46 | XRR_ITS ---
PROCEDURE INFORMATION: Exam: XR Left Foot Exam date and time: 08/20/2023 6:11 AM Age: 53 years old Clinical indication: Injury or trauma; Other: Hit big toe; Blunt trauma; Toes; Left; Prior surgery; Surgery date: 6+ months; Surgery type: Lt foot TECHNIQUE: Imaging protocol: Radiologic exam of the left foot. Views: 3 or more views. COMPARISON: CR (LOW EXM, ) 05/08/2023 8:19 PM FINDINGS: Bones/joints: Fusion of the 2nd through 4th toes. Arthroplasty of the great toe. Ankle fusion. No definite acute osseous, joint, or soft tissue abnormality. Soft tissues: Normal. XR/XR foot LT min 3V* [id number] IMPRESSION: Extensive postoperative findings.
--- NOTE | 2023-08-20 06:05 | W.ED.FALL ---
HPI - Fall General: Chief Complaint: ER Hold Stated Complaint: foot pain Time Seen by Provider: 08/20/23 05:36 Source: patient Mode of arrival: ambulatory History of Present Illness: 53-year-old female presents emergency room with complaint of left great toe pain. She states she slipped in the bathtub and hit her toe.. She has previously had surgery in May of this year and the left great toe had initially had some hardware in place this hardware was removed because of signs of infection culture was done grew out MRSA and she was on IV antibiotics via PICC line for an extended period of time. Dr. Henry from podiatry had cared for at that time. No recent fever sweats or chills pain began after she slipped and hit her left great toe while in the bathroom in the bathtub. She denies any other injuries. On arrival here patient has erratic behavior and is tachycardic. She has not taken any of her morning medications particularly her metoprolol. Fall from: standing Fall witnessed: no Place fall occurred: home Loss of consciousness: None Prolonged down time: no Symptoms prior to fall: none Context: tripped/slipped Associated symptoms-after fall: Denies abdominal pain, chest pain, confusion, difficulty walking, headache(s), hematuria, lightheadedness, neck pain, numbness, short of breath, vertigo or weakness Review of Systems Const: Denies: fever(s) or chills Card: Denies: chest pain or lightheadedness Resp: Denies: dyspnea GI: Denies: abdominal pain : Denies: hematuria Musc: Denies: neck pain Skin/Breast: Denies: rash Neuro: Denies: headache(s), difficulty walking, vertigo or confusion PFS ED PFSH: Medical History Hypochloremic alkalosis Cyclical vomiting, intractable Osteomyelitis Hardware complicating wound infection Septic arthritis Postoperative anemia History of cardiovascular stress test (~10/2021) History of Holter monitoring (~12/2021) Baseline sinus rhythm, 50-129 bpm with average 79 bpm, one 4 beat run asymptomatic vtach Dyslipidemia Chronic kidney disease Cellulitis of toe of left foot GERD (gastroesophageal reflux disease) History of migraine Gout Cellulitis Nonunion after arthrodesis Pain in left ankle Pain in left foot Sepsis High anion gap metabolic acidosis Acute kidney injury Cyclical vomiting Hepatitis B core antibody positive Surface antibody positive, surface antigen negative, HBV DNA and hepatitis b envelope Ag negative = equals past infection. Check LFTs q 3-6 months on biologic therapy. Repeat hepatitis serology if LFTs positive. Risk of reactivation. Primary osteoarthritis of right knee Tendinopathy of right rotator cuff DDD (degenerative disc disease), lumbosacral Cyclical vomiting Alcohol withdrawal Ileus Memory loss CVA (cerebral vascular accident) incidental finding on MR done for hearing loss, located in left cerebellar region on MRI performed early 2021 Elevated troponin GI bleed nsaid induced gastritis Intermittent palpitations Frozen shoulder syndrome Cannabinoid hyperemesis syndrome History of colon polyps tubular adenomas Hypertension Anxiety Plaque psoriasis High risk medication use biologic agent for psoriasis Psoriatic arthritis Major depressive disorder, recurrent, in partial remission Post-traumatic stress disorder, chronic Cannabis dependence, uncomplicated Surgical History History of colonoscopy (~09/2021) History of hysterectomy History of ankle surgery multiple to left ankle History of shoulder surgery History of pelvic surgery History of eye surgery Has metal around eye orbit History of toe surgery multiple to left foot Family History Mother Stroke Psychiatric illness bipolar/depression Cancer Hypertension Hyperlipidemia Heart disease Migraines Father Cancer lung Heart disease Brother Psychiatric illness depression Other CAD (coronary artery disease) Diabetes Lung disease Social History Smoking and tobacco/nicotine status: current some day tobacco/nicotine user cigarettes [ Other cigarette details: Quarter to half pack a day] Alcohol intake: current Substance/Drug Use: current Substance/Drug use frequency: daily Physical Exam Const: GENERAL APPEARANCE: anxious ORIENTATION/CONSCIOUSNESS: Yes awake HENMT: COMMON NORMALS: normocephalic, atraumatic and hearing grossly normal bilaterally HEAD & SCALP: normocephalic and atraumatic Resp: COMMON NORMALS: normal respiratory effort, No retractions, No use of accessory muscles and clear to auscultation bilaterally AUSCULTATION: clear to auscultation bilaterally Cardio: COMMON NORMALS: regular rhythm and No murmurs present (Cardio) RATE: tachycardic RHYTHM: regular rhythm GI: COMMON NORMALS: Soft to palpation and No hepatosplenomegaly present AUSCULTATION: Yes normoactive bowel sounds PALPATION: Yes Soft to palpation, No Tenderness to palpation present (GI), No Guarding due to palpation present (GI) and Yes No hepatosplenomegaly present Extremity: COMMON NORMALS: normal to inspection, capillary refill normal, no clubbing, cyanosis or edema, no calf tenderness and no pedal edema OTHER: Hypertrophic arthritic changes at the left first MP joint small overlying abrasion very superficial. Hallux valgus does not appear to be significantly acutely deformed or suggestive of fracture. No ecchymosis. Skin: COMMON NORMALS: no rashes or lesions noted GENERAL SKIN EXAM: no rashes or lesions noted Course Vital Signs: Vital signs: Vital Signs Temperature 98.6 F 08/20/23 05:42 Pulse Rate 108 H 08/20/23 10:50 Respiratory Rate 26 H 08/20/23 10:50 Blood Pressure 110/90 08/20/23 10:50 Pulse Oximetry 94 08/20/23 10:50 Oxygen Delivery Me thod Room Air 08/20/23 10:50 MDM - Fall Medical Decision Making Initially patient complained of left MP joint discomfort with allow me to touch it later she also complained of left ankle pain x-rays did not show any acute a lot of chronic changes. This was a long delay in getting labs due to difficulty with access. Patient labs eventually did go back she has severe leuk with cytosis and signs of sepsis. She initially arrived we did give her Toradol for pain she was tachycardic as well we gave her some fluids as well as a small dose of IV metoprolol and her regular morning oral metoprolol. She had some transient hypotension which rebounded. Her blood pressure stayed under good control. Lactic acid is elevated. She is also in acute kidney injury. Mild hyponatremia as well. Discussed Dr. Way previously had taken care of her foot. We cannot find any other source of infection to account for the leukocytosis. Urine is still pending today. Discussed with Dr. Becerra will admit to the ICU for sepsis she will require further evaluation blood cultures have been initiated PICC line is placed because of severe difficult IV access and concerned that she would need long-term antibiotics if her toe was reinfected. Dr. Henry is seen the patient in the emergency room as well as Dr. Gtz orders written Medical Records I reviewed the patient's medical records. Lab Data I reviewed the patient's lab results. 08/20/23 08:50 08/20/23 09:15 Radiology Impressions Foot X-Ray 08/20/23 05:46 IMPRESSION: Extensive postoperative findings. Laboratory Results WBC 20.49 10^3/uL (3.29-11.43) H 08/20/23 08:50 RBC 5.64 10^6/uL (3.85-5.65) 08/20/23 08:50 Hgb 15.70 g/dL (11.27-16.99) 08/20/23 08:50 Hct 44.0 % (36-47) 08/20/23 08:50 MCV 78.0 fl (85-98) L 08/20/23 08:50 MCH 27.8 pg (27-33) 08/20/23 08:50 MCHC 35.7 g/dL (30-55) 08/20/23 08:50 RDW 16.5 % (12.1-15.1) H 08/20/23 08:50 Plt Count 446 10^3/cmm (157-399) H 08/20/23 08:50 MPV 9.4 fL (7.4-10.4) 08/20/23 08:50 Neut % (Auto) 86.1 % 08/20/23 08:50 Lymph % (Auto) 5.5 % 08/20/23 08:50 [place] % (Auto) 6.9 % 08/20/23 08:50 Eos % (Auto) 0.1 % 08/20/23 08:50 Baso % (Auto) 0.3 % 08/20/23 08:50 Neut # (Auto) 17.63 10^3/uL (1.8-7.7) H 08/20/23 08:50 Lymph # (Auto) 1.1 10^3/uL (0.8-4.8) 08/20/23 08:50 [place] # (Auto) 1.4 10^3/uL (0.2-0.9) H 08/20/23 08:50 Eos # (Auto) 0.0 10^3/uL (0.0-0.8) 08/20/23 08:50 Baso # (Auto) 0.1 10^3/uL (0.0-0.1) 08/20/23 08:50 Nucleated RBC % (auto) 0 % 08/20/23 08:50 Nucleated RBCs # 0.0 /100WBC 08/20/23 08:50 ESR 42 mm/hr (0-15) H 08/20/23 09:15 PT 12.10 SECONDS (12.1-14.9) 08/20/23 09:15 INR 0.87 (0.8-1.2) 08/20/23 09:15 APTT 20.7 SECONDS (23.9-36.7) L 08/20/23 09:15 Specimen Type Arterial 08/20/23 10:12 Sample Site Radial, left 08/20/23 10:12 ABG pH 7.81 (7.35-7.45) H* 08/20/23 10:12 ABG pCO2 22.6 mmHg (35-45) L 08/20/23 10:12 ABG pO2 78.1 mmHg (80.0-100.0) L 08/20/23 10:12 ABG PO2/FiO2 Ratio 0 08/20/23 10:12 ABG HCO3 36.2 mmol/L (22-26) H 08/20/23 10:12 ABG O2 Saturation 96.8 08/20/23 10:12 ABG Base Excess 18.6 mmol/L (-2.0-2.0) H 08/20/23 10:12 [place] Test Pos 08/20/23 10:12 A-a O2 Gradient 5.7 mmHg (5-10) 08/20/23 10:12 Hematocrit 48.6 % (37-47) H 08/20/23 10:12 Hgb O2 Saturation 96.0 % (95-100) 08/20/23 10:12 Carboxyhemoglobin 0.5 %THgb (0.4-20.1) 08/20/23 10:12 Methemoglobin 0.3 % (0.4-1.5) L 08/20/23 10:12 Total Hemoglobin 15.9 g/dL (12-16) 08/20/23 10:12 Sodium 129.0 mmol/L (131-143) L 08/20/23 10:12 Potassium 3.3 mmol/L (3.5-5.0) L 08/20/23 10:12 Glucose 151.0 mg/dL (70-115) H 08/20/23 10:12 Ionized Calcium 1.0 mmol/L (1.1-1.4) L 08/20/23 10:12 O2 Delivery Device Room air 08/20/23 10:12 FiO2 21.0 % 08/20/23 10:12 Trimming Machine Operator ID [place] 08/20/23 10:12 Sodium 129 mmol/L (136-145) L 08/20/23 09:15 Potassium 3.3 mmol/L (3.5-5.1) L 08/20/23 09:15 Chloride 69 mmol/L (98-107) L 08/20/23 09:15 Carbon Dioxide 34 mmol/L (22-29) H 08/20/23 09:15 Anion Gap 29.3 (5-19) H 08/20/23 09:15 BUN 40 mg/dL (6-20) H 08/20/23 09:15 Creatinine 4.1 mg/dL (0.5-0.9) H 08/20/23 09:15 GFR Calculation 11.3 mL/min (90-130) L 08/20/23 09:15 Glucose 134 mg/dL (65-115) H 08/20/23 09:15 Calculated Osmolality 280 mOsm/kg (285-295) L 08/20/23 09:15 Lactic Acid 3.7 mmol/L (0.5-2.2) H 08/20/23 09:15 Calcium 10.9 mg/dL (8.5-10.5) H 08/20/23 09:15 Total Bilirubin 1.0 mg/dL (0.15-1.2) 08/20/23 09:15 AST 92 U/L (0-32) H 08/20/23 09:15 ALT 32 U/L (0-33) 08/20/23 09:15 Alkaline Phosphatase 175 U/L (35-105) H 08/20/23 09:15 C-Reactive Protein 14.5 mg/L (0.0-4.9) H 08/20/23 09:15 Total Protein 9.0 g/dL (6.6-8.7) H 08/20/23 09:15 Albumin 5.4 g/dL (3.5-5.2) H 08/20/23 09:15 Globulin 3.6 g/dL (1.3-4.6) 08/20/23 09:15 Salicylates < 0.3 mg/dL (3-10) L 08/20/23 09:15 Urine Opiates Screen Negative ng/mL (Negative) 08/20/23 09:40 Acetaminophen 7.7 ug/mL (10-30) L 08/20/23 09:15 Ur Barbiturates Screen Negative ng/mL (Negative) 08/20/23 09:40 Ur Phencyclidine Scrn Negative ng/mL (Negative) 08/20/23 09:40 Ur Amphetamines Screen Negative ng/mL (Negative) 08/20/23 09:40 U Benzodiazepines Scrn Negative ng/mL (Negative) 08/20/23 09:40 Urine Cocaine Screen Negative ng/mL (Negative) 08/20/23 09:40 U Marijuana (THC) Screen Positive ng/mL (Negative) H 08/20/23 09:40 Ethyl Alcohol < 10 mg/dL (0-10) 08/20/23 09:15 All radiology interpretation(s) finalized by discharge Discharge Plan Discharge Patient Disposition: Admitted As Inpatient Admit Provider: Howie Gtz Clinical Impression: Sepsis, PA (psoriatic arthritis), Septic joint, High risk medication use Condition: Stable Coding Level of Care Code ED Dyer Helper for 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
[2023-08-20] MEDS: ketorolac 30 mg/mL INJ 60 MG IM (06:07)
[2023-08-20] MEDS: metoprolol tartrate 50 mg Tablet PO (06:10)
[2023-08-20] MEDS: metoprolol tartrate 1 mg/1 mL SDV 5 mL 2.5 MG IVP (06:14)
--- NOTE | 2023-08-20 06:19 | ECG_ITS ---
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 Measurements Intervals Kermit Rate: 132 P: 63 DC: 102 QRS: 46 QRSD: 90 T: 64 QT: 361 QTc: 536 Interpretive Statements SINUS TACHYCARDIA WITH SHORT DC INTERVAL MODERATE ST DEPRESSION [0.05+ mV ST DEPRESSION] Compared to ECG 05/13/2023 17:48:26 Short DC interval now present ST (T wave) deviation now present Sinus rhythm no longer present Electronically Signed On 08-20-2023 14:40:22 BEARING RING ASSEMBLER by Damion Villalba M.D. [id number]
[2023-08-20] MEDS: acetaminophen 325 mg Tablet 650 MG PO (08:26)
[2023-08-20 09:02] LABS: Basophils # 0.1 10^3/uL (0.0-0.1); Basophils % 0.3 %; Eosinophils % 0.1 %; Lymphocytes # 1.1 10^3/uL (0.8-4.8); Lymphocytes % 5.5 %; Mean Corpuscular HGB Conc 35.7 g/dL (30-55); Mean Corpuscular Hemoglobin 27.8 pg (27-33); Mean Platelet Volume 9.4 fL (7.4-10.4); Monocytes # 1.4 10^3/uL (0.2-0.9); Monocytes % 6.9 %; Neutrophils # 17.63 10^3/uL (1.8-7.7); Neutrophils % 86.1 %; Nucleated Red Blood Cells % 0 %; Platelet Count 446 10^3/cmm (157-399); Red Blood Count 5.64 10^6/uL (3.85-5.65); Red Cell Distribution Width 16.5 % (12.1-15.1); White Blood Count 20.49 10^3/uL (3.29-11.43)
[2023-08-20 09:32] LABS: Erythrocyte Sedimentation Rate 42 mm/hr (0-15)
[2023-08-20 09:39] LABS: Lactic Sepsis W/Reflex 3.7 mmol/L (0.5-2.2)
[2023-08-20 09:40] LABS: Alanine Aminotransferase 32 U/L (0-33); Albumin Level 5.4 g/dL (3.5-5.2); Alkaline Phosphatase 175 U/L (35-105); Anion Gap 29.3 (5-19); Aspartate Amino Transferase 92 U/L (0-32); Blood Urea Nitrogen 40 mg/dL (6-20); C Reactive Protein 14.5 mg/L (0.0-4.9); Calcium 10.9 mg/dL (8.5-10.5); Carbon Dioxide 34 mmol/L (22-29); Chloride 69 mmol/L (98-107); Globulin 3.6 g/dL (1.3-4.6); Glomerular Filtration Rate 11.3 mL/min (90-130); Glucose 134 mg/dL (65-115); Osmolality Calculated 280 mOsm/kg (285-295); Potassium 3.3 mmol/L (3.5-5.1); Sodium 129 mmol/L (136-145)
--- NOTE | 2023-08-20 09:40 | XR_ITS ---
WS: [id number] Portable AP supine chest, 08/20/2023 Clinical Data: post picc placement Comparison: Portable chest, 05/15/2023 Findings: The right PICC line enters the right subclavian vein and ends in the superior vena cava. Th ere is no pneumothorax. There are monitor leads on the chest wall. Impression: Satisfactory placement of right PICC line.
[2023-08-20 09:49] LABS: Alcohol Level < 10 mg/dL (0-10)
[2023-08-20 09:57] LABS: Partial Thromboplastin Time 20.7 SECONDS (23.9-36.7)
[2023-08-20 10:07] LABS: INR 0.87 (0.8-1.2)
[2023-08-20 10:23] LABS: ABG PCO2 22.6 mmHg (35-45); Alveolar-Arterial Oxygen Gradi 5.7 mmHg (5-10); Arterial Blood Gas Hematocrit 48.6 % (37-47); Base Excess ABG 18.6 mmol/L (-2.0-2.0); Blood Gas Allen Test Pos; Blood Gas Sample Type Arterial; Carboxyhemoglobin 0.5 %THgb (0.4-20.1); HCO3 ABG 36.2 mmol/L (22-26); Methemoglobin 0.3 % (0.4-1.5); Oxygen Saturation ABG 96.8; PO2 ABG 78.1 mmHg (80.0-100.0); Potassium Level - ABG 3.3 mmol/L (3.5-5.0); Total Hemoglobin 15.9 g/dL (12-16)
[2023-08-20 10:24] LABS: Blood Gas Operator Identificat MONRO; Blood Gas Sample Site Radial, left; Oxygen Device ROOM AIR; PO2 FiO2 Ratio Arterial Blood 0
[2023-08-20] MEDS: ondansetron 2 mg/ML SDV 2 mL 4 MG IVP ×3 (10:25→17:56)
[2023-08-20] MEDS: morphine 4 mg/mL SDV 1 mL IM (10:25)
--- NOTE | 2023-08-20 10:26 | PC.NURSE ---
Triple lumen PICC placed to right basilic vein. Referred to vascular access nurse for PICC placement do to inability to get IV access. Anticipated need for antibiotics for suspected infection. Pt has had PICC lines placed in the past for recurrent foot infection and well known to vascular access nurse. Risks and benefits discussed and informed consent obtained from patient. Right arm assessed with right basilic vein measuring 5.2 mm, straight, and apparent best choice for placement. Using sterile technique and MST, right basilic vein accessed x 1 stick. Mid-arm circumference measured 10 cm from right AC 27 cm. Trimmed cath 37 cm with 1 cm external length noted. CXR shows tip in SVC, in good position for use per radiologist. Line secured with stat-lock. Insertion site covered with Biopatch and TSM. Pt to be admitted to floor.
[2023-08-20 10:28] LABS: Amphetamines Screen Urine Negative (Negative); Barbiturates Screen Urine Negative (Negative); Benzodiazepines Screen Urine Negative (Negative); Cocaine Screen Urine Negative (Negative); Opiate Screen Urine Negative (Negative); PCP Screen Urine Negative (Negative); THC Screen Urine Positive (Negative)
[2023-08-20 10:29] LABS: ABG PH Result 7.81 (7.35-7.45)
[2023-08-20] MEDS: vancomycin 1,000 MG in sodium chloride 0.9% 250 ML 250 MG IV (10:32)
[2023-08-20] MEDS: sodium chloride 0.9% 1,000 ML 999 ML IV (10:32)
[2023-08-20 10:56] LABS: Acetaminophen 7.7 ug/mL (10-30); Salicylate < 0.3 mg/dL (3-10)
[2023-08-20 11:08] LABS: Reflex Lactate Order REFLEX LACTIC ORDERD
--- NOTE | 2023-08-20 11:20 | P.HP_ITS ---
Providers/Chief Complaint 2 Admitting Physician: Howie Gtz MD Primary Care Provider: Bcuky Rogers MD Chief Complaint: foot pain History of Present Illness Rachelle Mireles is a 53 year old female with history of osteomyelitis of the left foot on chronic suppression presenting to the emergency department with complaints of foot pain since yesterday. She is felt febrile. She states she had a temperature of 100 ?F. She has had repetitive vomiting. Occasionally which she reports she has had a loose stool. Some dark material when she vomits. Denies any shortness of breath. Has not had any chest discomfort. Reports a little bit of abdominal pain, in her epigastric area and perhaps some on the right side. History is difficult, and he seems very anxious during the encounter. She reports she recently had an injection of secukinumab for her psoriasis last week. Review of Systems 2 General: Reports: 10 or more systems reviewed and unremarkable except in HPI and below Card: Denies: chest pain Resp: Denies: dyspnea GI: Reports: abdominal pain, nausea and vomiting; Denies: hematochezia or melena Medications/Allergies Home Medications Medication Instructions Recorded Confirmed Last Taken Type duloxetine 60 mg capsule,delayed 60 mg PO BID #60 caps 02/15/20 08/20/23 08/19/23 Rx release (Cymbalta) pantoprazole 40 mg tablet,delayed 40 mg PO BID 09/04/21 08/20/23 08/19/23 History release aspirin 81 mg tablet,delayed 81 mg PO QAM 04/09/22 08/20/23 08/19/23 History release promethazine 25 mg tablet 25 mg PO Q6H PRN Nausea #10 tabs 03/28/23 08/20/23 12/01/22 Rx amlodipine 10 mg tablet 10 mg PO QAM 05/14/23 08/20/23 08/19/23 History sennosides 8.6 mg tablet (senna) 17.2 mg (2 x 8.6 mg) PO BEDTIME 05/17/23 08/20/23 08/19/23 Rx #30 tabs ondansetron HCl 4 mg tablet 4 mg PO DAILY #10 tabs 05/25/23 08/20/23 Unknown Rx CAM boot #1 ea 05/29/23 08/20/23 Unknown Rx pregabalin 100 mg capsule 100 mg PO BID 05/31/23 08/20/23 Unknown History doxycycline hyclate 100 mg capsule 100 mg PO BID 3 months #180 caps 07/11/23 08/20/23 08/19/23 Rx ferrous fumarate 89 mg (29 mg 89 mg PO DAILY 07/11/23 08/20/23 08/19/23 History iron) tablet fluconazole 150 mg tablet 150 mg PO Q3D PRN vaginal yeast 07/11/23 08/20/23 Unknown Rx infection 2 doses #30 tabs secukinumab 150 mg/mL subcutaneous 300 mg (2 mL) SUBCUT DIRECTED 08/07/23 08/20/23 Unknown Rx pen injector (Cosentyx Pen 300 #2 mL mg/2 Pens () atorvastatin 40 mg tablet 40 mg PO DAILY 08/20/23 08/20/23 Unknown History lidocaine 5 % topical patch 1 patch topical DAILY 08/20/23 08/20/23 Unknown History metoprolol tartrate 37.5 mg tablet 37.5 mg PO BID 08/20/23 08/20/23 Unknown History nicotine 7 mg/24 hr daily 1 patch topical .COMPLEX 08/20/23 08/20/23 Unknown History transdermal patch (Nicoderm CQ) Allergies Allergy/AdvReac Type Severity Reaction Status Date / Time clindamycin Allergy Severe Unconscious Verified 07/22/23 08:20 adhesive tape Allergy Intermediate rash, red Verified 07/22/23 08:20 codeine Allergy Unknown ALGY-Anaphy Verified 07/22/23 08:20 laxis paroxetine [From Paxil] Allergy Unconscious Verified 07/22/23 08:20 PFSH Acute 2 PFSH: Medical History (Updated 08/20/23 @ 11:34 by Howie Gtz MD) Acute kidney injury Hypochloremic alkalosis Cyclical vomiting, intractable Osteomyelitis Hardware complicating wound infection Septic arthritis Postoperative anemia History of cardiovascular stress test (~10/2021) History of Holter monitoring (~12/2021) Baseline sinus rhythm, 50-129 bpm with average 79 bpm, one 4 beat run asymptomatic vtach Dyslipidemia Chronic kidney disease Cellulitis of toe of left foot GERD (gastroesophageal reflux disease) History of migraine Gout Cellulitis Nonunion after arthrodesis Pain in left ankle Pain in left foot Sepsis High anion gap metabolic acidosis Cyclical vomiting Hepatitis B core antibody positive Surface antibody positive, surface antigen negative, HBV DNA and hepatitis b envelope Ag negative = equals past infection. Check LFTs q 3-6 months on biologic therapy. Repeat hepatitis serology if LFTs positive. Risk of reactivation. Primary osteoarthritis of right knee Tendinopathy of right rotator cuff DDD (degenerative disc disease), lumbosacral Cyclical vomiting Alcohol withdrawal Ileus Memory loss CVA (cerebral vascular accident) incidental finding on MR done for hearing loss, located in left cerebellar region on MRI performed early 2021 Elevated troponin GI bleed nsaid induced gastritis Intermittent palpitations Frozen shoulder syndrome Cannabinoid hyperemesis syndrome History of colon polyps tubular adenomas Hypertension Anxiety Plaque psoriasis High risk medication use biologic agent for psoriasis Psoriatic arthritis Major depressive disorder, recurrent, in partial remission Post-traumatic stress disorder, chronic Cannabis dependence, uncomplicated Surgical History History of colonoscopy (~09/2021) History of hysterectomy History of ankle surgery multiple to left ankle History of shoulder surgery History of pelvic surgery History of eye surgery Has metal around eye orbit History of toe surgery multiple to left foot Family History Mother Stroke Psychiatric illness bipolar/depression Cancer Hypertension Hyperlipidemia Heart disease Migraines Father Cancer lung Heart disease Brother Psychiatric illness depression Other CAD (coronary artery disease) Diabetes Lung disease Social History Smoking and tobacco/nicotine status: current some day tobacco/nicotine user cigarettes [ Other cigarette details: Quarter to half pack a day] Alcohol intake: current Substance/Drug Use: current Substance/Drug use frequency: daily Vitals/I&O/Wt Last Vital Signs Temp 98.6 F 08/20/23 05:42 Pulse 108 H 08/20/23 10:50 Resp 26 H 08/20/23 10:50 BP 110/90 08/20/23 10:50 Pulse Ox 94 08/20/23 10:50 O2 Del Method Room Air 08/20/23 10:50 Weight last 48 hrs Weight 81.647 kg Physical Exam 2 Narrative: General exam is anxious and hyperventilating female, reporting left foot pain HEENT: Atraumatic and normocephalic. Oropharynx clear. Neck is supple no lymphadenopathy thyromegaly Cardiovascular slightly tachycardic, regular, no murmur Lungs clear no wheezing or crackles Abdomen is soft. Slight tenderness in the epigastric area. Some tenderness on the right side as well exam is deferred Extremities no cyanosis clubbing. Some edema and joint swelling noted left great toe, MCP joint Sepsis: Is patient septic: Yes Focused sepsis exam performed: Yes Date exam was performed: 08/20/23 Time exam was performed: 11:00 Data 08/20/23 08:50 08/20/23 09:15 Other Labs: Foot x-ray which I reviewed demonstrates the postoperative findings. I have trouble interpreting it past this. Radiology reading is in agreement Chest x-ray which I reviewed no infiltrate, PICC line noted EKG demonstrates heart rate of 130, sinus, normal axis, nonspecific ST-T wave changes. ESR 42 INR normal ABG demonstrates pH 7.8, pCO2 of 23, pO2 of 78 on room air LFTs slight elevation at AST of 92, alk phos 175. Bilirubin and ALT are normal Calcium 10.9, lactic acid 3.7, albumin 5.4, CRP 14.5, total protein 9.0, urine drug screen positive for marijuana. Alcohol and salicylates negative Blood cultures were drawn Micro: Microbiology 08/20/23 07:20 Blood Culture - Preliminary Blood SPECIMEN COLLECTED 08/20/23 07:03 Blood Culture - Preliminary Blood SPECIMEN COLLECTED A&P Assessment and plan (1) Sepsis: Concern of sepsis. Patient with tachycardia, elevated lactic acid, leukocytosis, possible source left great foot with history of chronic osteo. She also has some evidence of endorgan dysfunction with acute kidney injury. She had was hypotensive in the emergency department, and it is hard to know if this was related to sepsis or pain medication. IV antibiotics consisting of vancomycin, Zosyn currently Blood cultures were obtained Podiatry consultation MRI of left ankle and foot without contrast Secondary to complaints of abdominal pain, vomiting will obtain CT abdomen pelvis without contrast Check urinalysis PICC line has been placed. (2) Acute kidney injury: Place Abel CT abdomen pelvis without contrast Hydrate CBC, CMP tomorrow Check CK (3) Foot pain: Concern of chronic osteomyelitis, chronic suppression with doxycycline. Recently got mab drug for psoriasis Await MRI, blood cultures Plan History of psoriasis. Hold mab drug. Concern of sepsis. Multiple other medical problems as outlined in past medical history Full code Heparin for DVT prophylaxis Attestations 2 Medical Necessity Statement*: Will need greater than 2 midnight stay for evaluation and treatment of sepsis with concern of infection left foot, in this patient with acute kidney injury. Diagnoses Sepsis A41.9 Acute kidney injury N17.9 Foot pain M79.673 Time Spent (min) 75
[2023-08-20 11:55] LABS: Urine Appearance SL Hazy (CLEAR); Urine Color Yellow (Yellow)
[2023-08-20 11:56] LABS: Bilirubin Urine Neg (Negative); Blood Urine 3+ (Negative); Glucose Urine UA Norm (Normal); Ketones Urine 1+ (Negative); Leukocyte Esterase Urine Negative (Negative); Nitrate Urine Negative (Negative); Protein Urine 3+ (Negative); Urobilinogen Urine Norm (Negative); pH Urine 8 (5-7)
[2023-08-20 11:58] LABS: Sulfosalicylic Acid Urine Positive (Negative)
[2023-08-20 12:01] LABS: Add Urine Culture? No; Amorphous Sediment Urine TRACE /hpf; Bacteria Urine TRACE /hpf; Fine Granular Casts Urine 0-4 /lpf; Mucus Urine 2+ /hpf; RBC Urine 0-4 /hpf (0-2); Squamous Epithelial Cell Urine 0-4 /hpf (0-5); WBC Urine 0-4 /hpf (0-5)
[2023-08-20 12:10] LABS: Uric Acid 11.2 mg/dL (2.4-5.7)
--- NOTE | 2023-08-20 12:46 | CT_ITS ---
WS: [id number] CT ABDOMEN PELVIS TECHNIQUE: Noncontrast CT of the abdomen and pelvis with coronal and sagittal reformatted images. CLINICAL INFORMATION: abdominal pain, vomiting COMPARISON: CT abdomen pelvis 05/31/2023 DLP: 481.[address] scans at [facility] use at least one of these dose optimization techniques: automated e xposure control; mA and/or kV adjustment per patient size (includes targeted exams where dose is matc hed to clinical indication); or iterative reconstruction. FINDINGS: Subsegmental atelectasis RIGHT lower lobe. Cholecystectomy clips. Small esophageal hiatal hernia. Mil d thickening of the LEFT greater than RIGHT adrenal glands. Noncontrast pancreas appears normal. Norm al caliber abdominal aorta. Aortic calcification. Incidental simple LEFT renal cysts. No hydronephros is in either kidney. Abel catheter. Few sigmoid diverticuli. No evidence of acute diverticulitis. Normal appendix in the RIGHT lower quadrant. No evidence of acute appendicitis. Bilateral sacroiliac screw fixation. Superio r pubic rami fixation screws. Plate and screw fixation of the LEFT iliac. IMPRESSION: 1. Prior cholecystectomy. 2. Small esophageal hiatal hernia. 3. Incidental simple LEFT renal cysts. 4. Sigmoid diverticulosis. No evidence of acute diverticulitis. 5. Abel catheter in place. 6. Postoperative changes involving the bony pelvis. 7. Tiny fat-containing umbilical and epigastric hernias unchanged.
--- NOTE | 2023-08-20 12:47 | MR_ITS ---
WS: [id number] MRI LEFT FOOT WITHOUT CONTRAST. COMPARISON: Radiograph 08/20/2023 Multiplanar, multisequence imaging is performed without contrast. There is extensive hardware in the ankle and foot. Prior arthrodesis at the tibiocalcaneal joint spac e. There are multiple screws bridging the joint. There is a small amount of increased T2 signal in th e calcaneus which could be artifact. Additional arthrodesis of the first metatarsal phalangeal joint. Fusion across the second, third and fourth PIP joints. Loss of the normal arch of the foot. There is significant loss of the normal tibiotalar joint space a nd subtalar joint space. Small amount of marrow edema within the navicular. Marrow edema in the distal third of the first metatarsal and in the proximal first phalanx. Marrow ed jad can be related to osteomyelitis or recent arthrodesis or trauma. There is no fluid collection. IMPRESSION: 1. Extensive arthrodesis at the tibiocalcaneal joint space with loss of the normal subtalar joint. 2. Arthrodesis hardware at the first metatarsophalangeal joint. There is associated edema within the distal third of the metatarsal and the proximal first phalanx. This can be seen with osteomyelitis, p osttraumatic or recent surgery or debridement. No focal fluid collections. 3. Prior arthrodesis involving the PIP joints of the second, third and fourth toes.
[2023-08-20 12:49] LABS: Lactic Acid level (Lactate) 2.1 mmol/L (0.5-2.2)
[2023-08-20] MEDS: sodium chloride 0.9% 2,449.41 ML 2449.41 ML IV (12:59)
--- NOTE | 2023-08-20 13:03 | USCV_ITS ---
Rachelle Mireles Age: 53 Gender: F : 1970 Exam Date: 08/20/2023 15:11 Ordering Phys: Howie Gtz MD Technologist: [place] [facility] [place]: lt leg pain HISTORY: Lower extremity pain. PROCEDURES: The venous duplex Doppler examination of both lower extremities was performed in the standard fashion. The following venous structures were evaluated: common femoral vein, profunda vein, proximal portion of the greater saphenous vein, superficial femoral vein, and the popliteal vein. FINDINGS: Normal 2-D Doppler and augmentation and compressibility throughout the lower extremity venous structures. Additional imaging through the proximal calf veins also reveals no thrombus. Limited evaluation of the greater saphenous vein is patent with no thrombus. CONCLUSIONS No evidence of right lower extremity DVT. No evidence of left lower extremity DVT. Luis Mckeon MD (Electronically Signed) Final Date: 20 August 2023 16:19 S
[2023-08-20] MEDS: pantoprazole 40 mg SDV IVP (13:16)
[2023-08-20] MEDS: heparin 5,000 unit/mL INJ 1 mL 5000 UNIT SUBCUT (13:16)
[2023-08-20 13:22] LABS: Magnesium 2.1 mg/dL (1.7-2.3)
--- NOTE | 2023-08-20 13:34 | PC.PHAR ---
Pharmacokinetic dosing service Date: 08/20/23 Time: 1334 Objective: Patient: Rachelle Mireles Floor: ED-7 Age: 53 yo Serum creatinine: 4.1 mg/dL Height: 66.0 Inches Weight (kg): 81.647 Diagnosis: Relevant medical/social history: Cultures and sensitivities: Other labs: Assessment: IBW (kg): 59.30 Dosing wt(kg): 81.647 Estimated Creatinine clearance (ml/min): 14.5 CRCL method: Cockcroft and Gault using ibw(default). Drug selected: Vancomycin Loading dose (mg): 0 Vd (liters): 73.5 (factor used: 0.9 L/kg) Kevin (hr-1): 0.016 Half life (hrs): 43.32 Recommended dose: 1250 mg Interval: 48 hrs Infusion time (hrs): 1.5 Predicted peak (mcg/mL): 31.3 Predicted trough (mcg/mL): 14.87 Total body weight is being used for vancomycin dosing. Renal function is stable [ ] /unstable [ ] Recommendations: Give Vancomycin 1250 mg q 48 hrs with an expected Cpeak of 31.3 mcg/ml and an expected Ctrough of 14.87 mcg/ml Renal dosing of other antibiotics (review renal dosing of other medications and list guidelines here): Thank you for the consult, will continue to follow. Signature: Jimena Dai [facility]
[2023-08-20 13:37] LABS: Creatine Phosphokinase 3128 U/L (26-192)
--- NOTE | 2023-08-20 13:43 | PC.NURSE ---
this nurse notified Dr. Gtz of CK lab result. pt is off floor currently for CT scan and MRI.
[2023-08-20] MEDS: morphine 4 mg/mL SDV 1 mL 2 MG IVP ×3 (14:15→22:06)
--- OUTSIDE RECORDS SUMMARY | 2023-08-20 14:31 | XMS_ITS | Patient Health Record ---
Author Name Unknown Organization [facility] Address [address] [place] [address] Care Team Providers Care Body Welder Name Role Phone Bucky Rogers MD Primary Care Provider Compa Hall Unavailable [phone] REASON FOR REFERRAL No Information SOCIAL HISTORY Sex Assigned At : Social History Observation Description Sex Assigned At Unknown PROBLEMS Problem Type ICD Code Onset Dates Problem Status W/U Status Risk SNOMED Code Notes Problem Rash (782.1) 04/25/20 18 Problem resolved confirmed Rash (463590917) [facility] [place]-985 911- Problem Lymph node mass (785.6) 04/25/20 18 Problem resolved confirmed Lymphadenopathy (28145635) [id number] 911- Problem Other abnormal findings on blood examination (790.99) 05/14/20 18 Problem resolved confirmed Disorder of hematopoietic system (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) [id number] 911- Problem 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; other (V58.69) 04/25/20 18 Problem resolved confirmed Long-term drug therapy (536547568) [id number] 911- Problem Urinary tract infection (595.0) 04/25/20 18 Problem resolved confirmed Urinary tract infection (23425687) [id number] 911- Problem Cardiac murmur (785.2) 04/25/20 18 Problem resolved confirmed Heart murmur (14324651) [id number] 911- Problem Contact with or exposure to communicable diseases, unspecified (V01.9) 04/25/20 18 Problem resolved confirmed Exposure to communicable disease (918159832) [id number] 911- Problem Periumbilical abdominal mass (789.35) 04/25/20 18 Problem resolved confirmed [facility] [place]-985 911- PLAN OF TREATMENT No Information Insurance Providers Payer Name Payer Address Payer Phone Subscriber Number Group Number Insured Name Patient Relationship to Insured Coverage Start Date Coverage End Date [facility] [employer] [address] [address] [place] [address] [id number] Rachelle Mireles Self - patient is the insured [place] Medicaid [address] [place] [address] [id number] Rachelle Mireles Self - patient is the insured
--- NOTE | 2023-08-20 15:47 | P.CONIM_ITS ---
Providers/Reason For Consult 2 Consulting Physician/Specialty*: Dr. Blair Villareal, Sandrine.P.M./podiatry Reason for Consult*: Left foot osteomyelitis Attending Physician: Howie Gtz MD Primary Care Provider: Bucky Rogers MD History of Present Illness History of Present Illness Rachelle Mireles is a 53 year old female who has history of chronic osteomyelitis to the left first metatarsophalangeal joint. Patient had failed metatarsophalangeal joint fusion with infected hardware done at outside facility. Patient underwent subsequent hardware removal washout with resection of first metatarsal phalangeal joint antibiotic joint spacer placement on 05/14/2023. Patient has been doing great since the placement of the antibiotic spacer. She had been on doxycycline long-term to help keep residual infection at bay. However, last night 08/19/2023, patient states that she stubbed her toe in the bathtub. Since then she has had excruciating pain to the left foot first metatarsophalangeal joint. She also endorses fever, chills, nausea, vomiting. She states that her left foot is excruciatingly painful. Workup in the ER she was found to meet criteria for sepsis. Podiatry was consulted to evaluate and provide further recommendations. Review of Systems 2 General: Reports: 10 or more systems reviewed and unremarkable except in HPI and below Const: Denies: fever(s), chills, body aches or change in appetite Eyes: Denies: change in vision or blurry vision Card: Denies: chest pain, palpitations or irregular heart rhythm Resp: Denies: dyspnea GI: Denies: abdominal pain, nausea, vomiting or diarrhea Musc: Reports: joint stiffness Skin/Breast: Reports: non-healing lesions and lesions Neuro: Reports: numbness in extremities Medications/Allergies Home Medications Medication Instructions Recorded Confirmed Last Taken Type duloxetine 60 mg capsule,delayed 60 mg PO BID #60 caps 02/15/20 08/20/23 08/19/23 Rx release (Cymbalta) pantoprazole 40 mg tablet,delayed 40 mg PO BID 09/04/21 08/20/23 08/19/23 History release aspirin 81 mg tablet,delayed 81 mg PO QAM 04/09/22 08/20/23 08/19/23 History release promethazine 25 mg tablet 25 mg PO Q6H PRN Nausea #10 tabs 03/28/23 08/20/23 12/01/22 Rx amlodipine 10 mg tablet 10 mg PO QAM 05/14/23 08/20/23 08/19/23 History sennosides 8.6 mg tablet (senna) 17.2 mg (2 x 8.6 mg) PO BEDTIME 05/17/23 08/20/23 08/19/23 Rx #30 tabs ondansetron HCl 4 mg tablet 4 mg PO DAILY #10 tabs 05/25/23 08/20/23 Unknown Rx CAM boot #1 ea 05/29/23 08/20/23 Unknown Rx pregabalin 100 mg capsule 100 mg PO BID 05/31/23 08/20/23 Unknown History doxycycline hyclate 100 mg capsule 100 mg PO BID 3 months #180 caps 07/11/23 08/20/23 08/19/23 Rx ferrous fumarate 89 mg (29 mg 89 mg PO DAILY 07/11/23 08/20/23 08/19/23 History iron) tablet fluconazole 150 mg tablet 150 mg PO Q3D PRN vaginal yeast 07/11/23 08/20/23 Unknown Rx infection 2 doses #30 tabs secukinumab 150 mg/mL subcutaneous 300 mg (2 mL) SUBCUT DIRECTED 08/07/23 08/20/23 Unknown Rx pen injector (Cosentyx Pen 300 #2 mL mg/2 Pens () atorvastatin 40 mg tablet 40 mg PO DAILY 08/20/23 08/20/23 Unknown History lidocaine 5 % topical patch 1 patch topical DAILY 08/20/23 08/20/23 Unknown History metoprolol tartrate 37.5 mg tablet 37.5 mg PO BID 08/20/23 08/20/23 Unknown History nicotine 7 mg/24 hr daily 1 patch topical .COMPLEX 08/20/23 08/20/23 Unknown History transdermal patch (Nicoderm CQ) Allergies Allergy/AdvReac Type Severity Reaction Status Date / Time clindamycin Allergy Severe Unconscious Verified 07/22/23 08:20 adhesive tape Allergy Intermediate rash, red Verified 07/22/23 08:20 codeine Allergy Unknown ALGY-Anaphy Verified 07/22/23 08:20 laxis paroxetine [From Paxil] Allergy Unconscious Verified 07/22/23 08:20 Current Medications Generic Name Dose Route Start Last Admin Trade Name Freq PRN Reason Stop Dose Admin Heparin Sodium (Porcine) 5,000 unit 08/20/23 13:00 08/20/23 13:16 Heparin 5,000 Unit/Ml Inj 1 Ml SUBCUT 5,000 unit Q12H KATE Administration Morphine Sulfate 2 mg 08/20/23 10:41 08/20/23 14:15 Morphine 4 Mg/Ml Sdv 1 Ml IVP 2 mg Q4H PRN Administration SEVERE PAIN Ondansetron HCl 4 mg 08/20/23 10:41 08/20/23 13:16 Ondansetron 2 Mg/Ml Sdv 2 Ml IVP 4 mg Q6H PRN Administration NAUSEA AND VOMITING Pantoprazole Sodium 40 mg 08/20/23 13:00 08/20/23 13:16 Pantoprazole 40 Mg Sdv IVP 40 mg Q12H KATE Administration PFSH Acute 2 PFSH: Medical History (Updated 08/20/23 @ 15:52 by Blair Villareal DPM) Acute kidney injury Hypochloremic alkalosis Cyclical vomiting, intractable Osteomyelitis Hardware complicating wound infection Septic arthritis Postoperative anemia History of cardiovascular stress test (~10/2021) History of Holter monitoring (~12/2021) Baseline sinus rhythm, 50-129 bpm with average 79 bpm, one 4 beat run asymptomatic vtach Dyslipidemia Chronic kidney disease Cellulitis of toe of left foot GERD (gastroesophageal reflux disease) History of migraine Gout Cellulitis Nonunion after arthrodesis Pain in left ankle Pain in left foot Sepsis High anion gap metabolic acidosis Cyclical vomiting Hepatitis B core antibody positive Surface antibody positive, surface antigen negative, HBV DNA and hepatitis b envelope Ag negative = equals past infection. Check LFTs q 3-6 months on biologic therapy. Repeat hepatitis serology if LFTs positive. Risk of reactivation. Primary osteoarthritis of right knee Tendinopathy of right rotator cuff DDD (degenerative disc disease), lumbosacral Cyclical vomiting Alcohol withdrawal Ileus Memory loss CVA (cerebral vascular accident) incidental finding on MR done for hearing loss, located in left cerebellar region on MRI performed early 2021 Elevated troponin GI bleed nsaid induced gastritis Intermittent palpitations Frozen shoulder syndrome Cannabinoid hyperemesis syndrome History of colon polyps tubular adenomas Hypertension Anxiety Plaque psoriasis High risk medication use biologic agent for psoriasis Psoriatic arthritis Major depressive disorder, recurrent, in partial remission Post-traumatic stress disorder, chronic Cannabis dependence, uncomplicated Surgical History History of colonoscopy (~09/2021) History of hysterectomy History of ankle surgery multiple to left ankle History of shoulder surgery History of pelvic surgery History of eye surgery Has metal around eye orbit History of toe surgery multiple to left foot Family History Mother Stroke Psychiatric illness bipolar/depression Cancer Hypertension Hyperlipidemia Heart disease Migraines Father Cancer lung Heart disease Brother Psychiatric illness depression Other CAD (coronary artery disease) Diabetes Lung disease Social History Smoking and tobacco/nicotine status: current some day tobacco/nicotine user cigarettes [ Other cigarette details: Quarter to half pack a day] Alcohol intake: current Substance/Drug Use: current Substance/Drug use frequency: daily Vitals/I&O/Wt Last Vital Signs Temp 98.6 F 08/20/23 05:42 Pulse 101 H 08/20/23 12:54 Resp 35 H 08/20/23 14:46 BP 155/102 08/20/23 13:15 Pulse Ox 93 08/20/23 12:54 O2 Del Method Room Air 08/20/23 12:54 08/20/23 08/20/23 08/20/23 06:59 14:59 22:59 Intake Total 1250 / 1250 Balance 1250 / 1250 Weight last 48 hrs Weight 180 lb Physical Exam 2 Narrative: BELOW IS A FOCUSED LOWER EXTREMITY EXAM GENERAL: A&O x 3 VASCULAR: DP/PT pulses palpable 2/4 with CFT intact, <3seconds to distal digits DERMATOLOGICAL: Skin turgor and temperature is within normal limits. No interdigital maceration noted. Left first metatarsophalangeal joint is enlarged and mildly erythematous with dorsal excoriations. No underlying fluctuance. No proximal streaking MUSCULOSKELETAL: Pain with palpation of left first metatarsophalangeal joint. No pain with calf squeeze NEUROLOGICAL: Neurological sensation to the affected foot and ankle is present through L4-S1 dermatomes with no hyper/hypoesthesias, negative Tinel or Valleix's sign IMAGING: Three-view x-rays of the left foot taken in the emergency department show erosive changes of the first metatarsophalangeal joint consistent with osteomyelitis. Antibiotic spacer in place. MRI of the left foot shows reactive changes to the first metatarsal and proximal phalanx consistent with osteomyelitis. No accumulation of soft tissue abscess. Urinary Catheter Management: Abel: Cath Placed During This Visit: yes Reason for Continuing Indwelling Catheter: Accurate Measurement of Urinary Output in Critically Ill Patients Urinary Catheter Date of Insertion: 08/20/23 Urinary Catheter Time of Insertion: 11:30 Data 08/20/23 08:50 08/20/23 09:15 Micro: Microbiology 08/20/23 07:20 Blood Culture - Preliminary Blood SPECIMEN COLLECTED 08/20/23 07:03 Blood Culture - Preliminary Blood SPECIMEN COLLECTED A&P Assessment and plan (1) Sepsis: (2) Left hallux osteomyelitis: Plan -Left foot first metatarsal osteomyelitis and base of proximal phalanx osteomyelitis -Labs and vitals reviewed -WBC 20.49 -ESR 42 -CRP 14.5 -HR 101 -RR 35 -Tmax 98.6 -Cultures pending -Abx Vanco/Zosyn -Diet: N.p.o. at midnight for procedure 08/21/2023 -Plan for left foot partial first ray resection tomorrow 08/21/2023. Discussion regarding surgery was had with patient at bedside. Options available to the patient were presented to her. She wishes to proceed with partial first ray resection of the left foot -Pain Mgmt: Per hospitalist -Weight bearing: Weightbearing as tolerated to left lower extremity -Continue current Abx therapy until ID and Sensitivity results -Trend labs -Discharge plan: To be determined -Podiatry will continue to round on patient daily and provide recommendations Coding Level of Care Code Acute Code for [facility] Diagnoses Sepsis A41.9 Left hallux osteomyelitis M86.9
[2023-08-20] MEDS: piperacillin-tazobactam 3.375 GM in sodium chloride 0.9% (plus) 50 ML IV ×2 (16:19→21:54)
[2023-08-20] MEDS: sodium chloride 0.9% 1,000 ML 125 ML IV (16:41)
[2023-08-20 16:47] LABS: Anion Gap 21.7 (5-19); Blood Urea Nitrogen 50 mg/dL (6-20); Calcium 8.5 mg/dL (8.5-10.5); Carbon Dioxide 29 mmol/L (22-29); Chloride 81 mmol/L (98-107); Glucose 113 mg/dL (65-115); Osmolality Calculated 282 mOsm/kg (285-295); Sodium 129 mmol/L (136-145)
[2023-08-20 16:59] LABS: Potassium 2.7 mmol/L (3.5-5.1)
[2023-08-20] MEDS: potassium phosphate (mEq K) 40 MEQ in sodium chloride 0.9% (100 ml) 100 ML 27.27 MEQ IV (17:51)
[2023-08-20] MEDS: pregabalin 100 mg Capsule PO (17:53)
--- NOTE | 2023-08-20 18:39 | PC.NURSE ---
Patient had some emesis in blue bag. Approximately 100-200 mls mostly dinner. Patient drank 2 cartons of milk which did not set well. Zofran and pain med given.
[2023-08-20] MEDS: metoprolol tartrate 25 mg Tablet PO (21:43)
[2023-08-20] MEDS: sennosides 8.6 mg Tablet 17.2 MG PO (21:43)
[2023-08-21] VITALS (18 sets, daily range): BP systolic 96–138; BP diastolic 59–84; PULSE 72–95; RESP 15–20; TEMP 36.1–37.1; O2SAT 90–99; BMI 26.5
[2023-08-21] MEDS: heparin 5,000 unit/mL INJ 1 mL 5000 UNIT SUBCUT ×2 (00:27→13:52)
[2023-08-21] MEDS: sodium chloride 0.9% 1,000 ML 125 ML IV ×3 (00:27→21:55)
[2023-08-21] MEDS: pantoprazole 40 mg SDV IVP ×2 (00:31→13:52)
[2023-08-21] MEDS: ondansetron 2 mg/ML SDV 2 mL 4 MG IVP ×2 (00:31→06:40)
[2023-08-21] MEDS: morphine 4 mg/mL SDV 1 mL 2 MG IVP ×4 (02:49→22:49)
[2023-08-21] MEDS: metoclopramide 5 mg/mL SDV 2 mL IVP (03:37)
[2023-08-21 06:20] LABS: Basophils # 0.1 10^3/uL (0.0-0.1); Basophils % 0.5 %; Eosinophils % 10.6 %; Hematocrit 35.1 % (36-47); Lymphocytes # 1.2 10^3/uL (0.8-4.8); Lymphocytes % 6.4 %; Mean Corpuscular Hemoglobin 27.8 pg (27-33); Mean Platelet Volume 9.9 fL (7.4-10.4); Monocytes # 1.3 10^3/uL (0.2-0.9); Monocytes % 7.1 %; Neutrophils # 14.24 10^3/uL (1.8-7.7); Neutrophils % 74.9 %; Nucleated Red Blood Cells % 0 %; Platelet Count 288 10^3/cmm (157-399); Red Blood Count 4.18 10^6/uL (3.85-5.65); Red Cell Distribution Width 17.2 % (12.1-15.1)
[2023-08-21] MEDS: piperacillin-tazobactam 3.375 GM in sodium chloride 0.9% (plus) 50 ML IV ×3 (06:23→22:00)
[2023-08-21 06:51] LABS: Alanine Aminotransferase 45 U/L (0-33); Albumin Level 3.8 g/dL (3.5-5.2); Alkaline Phosphatase 112 U/L (35-105); Blood Urea Nitrogen 43 mg/dL (6-20); Calcium 7.5 mg/dL (8.5-10.5); Carbon Dioxide 29 mmol/L (22-29); Chloride 87 mmol/L (98-107); Globulin 2.4 g/dL (1.3-4.6); Glomerular Filtration Rate 13.6 mL/min (90-130); Glucose 108 mg/dL (65-115); Magnesium 1.9 mg/dL (1.7-2.3); Osmolality Calculated 285 mOsm/kg (285-295); Sodium 132 mmol/L (136-145); Total Bilirubin 0.5 mg/dL (0.15-1.2); Total Protein 6.2 g/dL (6.6-8.7)
[2023-08-21 06:52] LABS: Anion Gap 20.1 (5-19); Aspartate Amino Transferase 110 U/L (0-32); Potassium 4.1 mmol/L (3.5-5.1)
[2023-08-21 07:09] LABS: Creatine Phosphokinase 3159 U/L (26-192)
[2023-08-21] MEDS: metoprolol tartrate 25 mg Tablet PO ×2 (08:19→20:29)
--- NOTE | 2023-08-21 09:42 | PC.NURSE ---
Patient went to surgery at 0936. Sodium Chloride was infused. Did not start a new bag due to going to surgery.
[2023-08-21] MEDS: sodium chloride 0.9% 1,000 ML 30 ML IV (10:16)
--- NOTE | 2023-08-21 10:29 | W.PM.OPSUD ---
Surgery/Procedure H&P Update DATE OF PROCEDURE: August 21, 2023 DATE H&P PERFORMED: 08/21/23 H&P UPDATE INFORMATION: I have reviewed H&P completed within last 30 days, I have examined patient prior to procedure, No changes to prior documentation and H&P is in [facility] EMR on date indicated PLANNED PROCEDURE: Operation Date: 08/21/23 09:55 Proposed Procedures p Ray Resection Partial Ray Resection(Left) - Blair Villareal DPM
[2023-08-21] MEDS: BUPivacaine 0.5% INJ 30 mL INJECTION (10:58)
--- NOTE | 2023-08-21 11:38 | PM.OP ---
Operative Report Date of procedure: August 21, 2023 Pre-op diagnosis: Osteomyelitis left hallux Post-op diagnosis: Same Post-op findings: Left remaining first metatarsal bone appeared healthy and viable in nature. No evidence of infection or necrosis. Soft tissue surrounding metatarsal appeared healthy and viable in nature. No appreciable abscess noted Procedure done: Partial first ray resection left foot CPT 85783 Specimens removed/disposition: Left hallux send pathology as surgical specimen. Cultures aerobic and anaerobic sent to [place] for ID and sensitivity Surgeon: Blair Villareal DPM Estimated blood loss: 5 cc 24 minutes Complications: None Findings: See above Procedure: Patient is a 53-year-old female that has a history of left first metatarsal and left hallux osteomyelitis. The patient has had the aforementioned chief complaint for some time. Conservative treatment measures have been attempted including first metatarsal phalangeal joint resection with antibiotic spacer. Patient presented to the emergency department with suspected flareup of osteomyelitis of left first metatarsophalangeal joint. The extent of which requires surgical intervention. A lengthy discussion regarding the procedure, including risks and complications has been had with the patient and is noted in the recent clinic note. Written and verbal consent have been obtained. All patient questions have been answered to the patient?s satisfaction. No written or verbal guarantees have been given or implied. The patient has been NPO since midnight. The history has been reviewed and the history and physical is current. The signed consent was confirmed and placed in the patient chart. Patient imaging has been reviewed and is consistent with the diagnosis. Under mild sedation, the patient was brought into the operating room and left on the gurney in the supine position. Patient is receiving IV antibiotics [id number] on the floor. IV sedation was then performed by the anesthesiateam. A pneumatic tourniquet was then placed about the left ankle. The operative extremity was then prepped and draped in the usual fashion. The extremity was then elevated and exsanguinated before the tourniquet was inflated to 250 mmHg. After inflation, the following procedure was then performed. Attention was directed to the left hallux where a tennis racquet incision was made surrounding the first metatarsal phalangeal joint. Full-thickness incision was made using a #15 blade down to the level of bone. Dissection was carried out to expose the first metatarsophalangeal joint which had antibiotic spacer intact. No evidence of abscess was visualized. Overall the tissues appeared reasonably healthy. The metatarsal and the base the proximal phalanx showed erosive changes and discoloration consistent with osteomyelitis. Sagittal bone saw was used to make an osteotomy through the first metatarsal proximal to the area of necrotic bone. Dissection was carried out to remove the partial first ray of the left foot in its entirety from the left foot. This was passed from the operative field as surgical specimen. Cultures both aerobic and anaerobic were taken at this point. These were sent to micro for ID and sensitivity. The remaining tissues were noted to be healthy and viable. No further bone infection was visualized. The remaining bone was normal in coloration and solid with palpation. The site was then irrigated with copious months of sterile saline before attention was directed to closure. Skin was closed with 2-0 Prolene in simple interrupted fashion. The tourniquet was let down and good hyperemic response was noted to all remaining digits of the left foot. The incision site was dressed with Xeroform, 4 x 4 gauze, ABD, Kerlix, Colin bandage. The patient was placed in a postoperative shoe. The patient tolerated the procedure and anesthesia well and without complication. The patient was transported from the operating room to the recovery room with vital signs stable and vascular status intact to all remaining digits of the left foot. Thepatient was instructed to remain minimally weightbearing for transfers only in postoperative shoe to the operative extremity, to keep surgical dressing clean, dry and intact. The patient will be transferred back to the floor once anesthesia criteria is met. I will continue to round on and follow the patient in the inpatientsetting and provide recommendations to stabilize the patient for discharge. -- Based on intraoperative findings I do not believe that a PICC line is warranted as the remaining tissue and bone appeared healthy and viable without evidence of abscess or necrosis. Patient will be able to be discharged home on oral antibiotics once deemed medically stable from hospitalist standpoint
--- NOTE | 2023-08-21 12:49 | P.PN_ITS ---
Subjective 2 Subjective: Patient reports she feels better today. Podiatry has decided to remove her great toe today. She reports pain is in proving. Medications: Reviewed: Yes Vitals/I&O/Wt Last Vital Signs Temp 97 F L 08/21/23 11:37 Pulse 72 08/21/23 11:49 Resp 16 08/21/23 11:49 BP 96/77 08/21/23 11:49 Pulse Ox 92 08/21/23 11:49 O2 Del Method Room Air 08/21/23 11:49 08/20/23 08/21/23 08/21/23 22:59 06:59 14:59 Intake Total 3567.9206 / 4817.9206 1020.833 / 5838.7536 1000 / 1000 Output Total 100 / 100 950 / 1050 5 / 5 Balance 3467.9206 / 4717.9206 70.833 / 4788.7536 995 / 995 Weight last 48 hrs Weight 74.644 kg Weight 74.644 kg Weight 74.843 kg Weight 81.647 kg Physical Exam 2 Narrative: General exam appears more calm and comfortable Neck is supple no lymphadenopathy thyromegaly Cardiovascular slightly tachycardic, regular, no murmur Lungs clear no wheezing or crackles Abdomen is soft. No significant tenderness today Extremities no cyanosis clubbing. Some edema and joint swelling noted left great toe, MCP joint Urinary Catheter Management: Abel: Cath Placed During This Visit: yes Reason for Continuing Indwelling Catheter: Other Urinary Catheter Date of Insertion: 08/20/23 Urinary Catheter Time of Insertion: 11:30 Data 08/21/23 06:03 08/21/23 06:03 Micro: Microbiology 08/20/23 07:20 Blood Culture - Preliminary Blood NEGATIVE TO DATE 08/20/23 07:03 Blood Culture - Preliminary Blood NEGATIVE TO DATE A&P Assessment and plan (1) Sepsis: Concern of sepsis. Patient with tachycardia, elevated lactic acid, leukocytosis, possible source left great foot with history of chronic osteo. She also has some evidence of endorgan dysfunction with acute kidney injury. She had was hypotensive in the emergency department, and it is hard to know if this was related to sepsis or pain medication. Continue IV antibiotics consisting of vancomycin, Zosyn currently Blood cultures were obtained, results pending Podiatry consultation appreciated MRI of left ankle and foot without contrast reviewed by podiatry, plans for surgery on left foot today Secondary to complaints of abdominal pain, vomiting will obtain CT abdomen pelvis without contrast. This did not demonstrate any significant abnormality Urinalysis without evidence of UTI PICC line has been placed. White blood cell count improving (2) Acute kidney injury: Place Abel CT abdomen pelvis without contrast without obstruction Continue hydration CBC, CMP tomorrow CK consistent with rhabdomyolysis Slow improvement of kidney function is noted (3) Foot pain: Concern of chronic osteomyelitis, chronic suppression with doxycycline. Podiatry has evaluated, plan for surgery today Plan History of psoriasis. Hold mab drug. Concern of sepsis. Multiple other medical problems as outlined in past medical history Full code Heparin for DVT prophylaxis Attestations 2 Medical Necessity Statement*: Needs continued hospitalization secondary to acute kidney injury. She has rhabdomyolysis. She is still seriously ill, and needs close monitoring with daily lab work and fluid and electrolyte management. Diagnoses Sepsis A41.9 Acute kidney injury N17.9 Foot pain M79.673 Time Spent (min) 35
--- NOTE | 2023-08-21 13:33 | P.ANESASSM_ITS ---
Pre-Anesthetic Assessment Height/Weight: Height 1.68 m Weight 74.644 kg Temp Pulse Resp BP Pulse Ox O2 Del Method 97 F L 72 16 96/77 92 Room Air 08/21/23 11:37 08/21/23 11:49 08/21/23 11:49 08/21/23 11:49 08/21/23 11:49 08/21/23 11:49 Operation Date: 08/21/23 09:55 Proposed Procedures p Ray Resection Partial Ray Resection(Left) - Blair Villareal DPM Familial anesthetic complications: none Was Beta Sanjuanita taken within 24 hours: Yes Was Clonidine taken within 24 hours: N/A Last intake: Intake Last Liquid Date 08/20/23 Last Liquid Time 00:00 Last Solid Date 08/20/23 Last Solid Time 18:00 Social Tobacco and No alcohol Exam alert, oriented x 3 and regular rate & rhythm Airway Submandibular: within normal limits Cervical ROM: within normal limits Mallampati: Class II Dentition: false (upper) Pulmonary Chronic Obstructive Pulmonary Disease CV/HEM Anemia and Hypertension Hepatic Hepatitis (B) GI Gastroesophageal Reflux Disease Metabolic Hyper[place] [facility] [place] Lower Back Pain and Osteoarthritis/DJD Neuropsych Neuropathy Anesthetic Plan ASA status: 3 Anesthesia: Choice Medications/Allergies Home Medications Medication Instructions Recorded Confirmed Last Taken Type duloxetine 60 mg capsule,delayed 60 mg PO BID #60 caps 02/15/20 08/20/23 08/19/23 Rx release (Cymbalta) pantoprazole 40 mg tablet,delayed 40 mg PO BID 09/04/21 08/20/23 08/19/23 History release aspirin 81 mg tablet,delayed 81 mg PO QAM 04/09/22 08/20/23 08/19/23 History release promethazine 25 mg tablet 25 mg PO Q6H PRN Nausea #10 tabs 03/28/23 08/20/23 12/01/22 Rx amlodipine 10 mg tablet 10 mg PO QAM 05/14/23 08/20/23 08/19/23 History sennosides 8.6 mg tablet (senna) 17.2 mg (2 x 8.6 mg) PO BEDTIME 05/17/23 08/20/23 08/19/23 Rx #30 tabs ondansetron HCl 4 mg tablet 4 mg PO DAILY #10 tabs 05/25/23 08/20/23 Unknown Rx CAM boot #1 ea 05/29/23 08/20/23 Unknown Rx pregabalin 100 mg capsule 100 mg PO BID 05/31/23 08/20/23 Unknown History doxycycline hyclate 100 mg capsule 100 mg PO BID 3 months #180 caps 07/11/23 08/20/23 08/19/23 Rx ferrous fumarate 89 mg (29 mg 89 mg PO DAILY 07/11/23 08/20/23 08/19/23 History iron) tablet fluconazole 150 mg tablet 150 mg PO Q3D PRN vaginal yeast 07/11/23 08/20/23 Unknown Rx infection 2 doses #30 tabs secukinumab 150 mg/mL subcutaneous 300 mg (2 mL) SUBCUT DIRECTED 08/07/23 08/20/23 Unknown Rx pen injector (Cosentyx Pen 300 #2 mL mg/2 Pens () atorvastatin 40 mg tablet 40 mg PO DAILY 08/20/23 08/20/23 Unknown History lidocaine 5 % topical patch 1 patch topical DAILY 08/20/23 08/20/23 Unknown History metoprolol tartrate 37.5 mg tablet 37.5 mg PO BID 08/20/23 08/20/23 Unknown History nicotine 7 mg/24 hr daily 1 patch topical .COMPLEX 08/20/23 08/20/23 Unknown History transdermal patch (Nicoderm CQ) Allergies Allergy/AdvReac Type Severity Reaction Status Date / Time clindamycin Allergy Severe Unconscious Verified 07/22/23 08:20 adhesive tape Allergy Intermediate rash, red Verified 07/22/23 08:20 codeine Allergy Unknown ALGY-Anaphy Verified 07/22/23 08:20 laxis paroxetine [From Paxil] Allergy Unconscious Verified 07/22/23 08:20 Current Medications Generic Name Dose Route Start Last Admin Trade Name Freq PRN Reason Stop Dose Admin Aspirin 81 mg 08/21/23 06:00 08/21/23 06:22 Aspirin 81 Mg Ec Tablet PO Not Given QAM KATE Heparin Sodium (Porcine) 5,000 unit 08/20/23 13:00 08/21/23 00:27 Heparin 5,000 Unit/Ml Inj 1 Ml SUBCUT 5,000 unit Q12H KATE Administration Sodium Chloride 1,000 mls @ 125 mls/hr 08/20/23 10:41 08/21/23 09:40 Sodium Chloride 0.9% IV Infused .Q8H KATE Infusion Piperacillin Sod/Tazobactam 50 mls @ 12.5 mls/hr 08/20/23 14:00 08/21/23 06:23 Sod 3.375 gm/ Sodium Chloride IV 12.5 mls/hr Q8H KATE Administration Protocol Metoprolol Tartrate 25 mg 08/20/23 21:00 08/21/23 08:19 Metoprolol Tartrate 25 Mg Tablet PO 25 mg BID@0900,2100 KATE Administration Morphine Sulfate 2 mg 08/20/23 10:41 08/21/23 02:49 Morphine 4 Mg/Ml Sdv 1 Ml IVP 2 mg Q4H PRN Administration SEVERE PAIN Ondansetron HCl 4 mg 08/20/23 10:41 08/21/23 06:40 Ondansetron 2 Mg/Ml Sdv 2 Ml IVP 4 mg Q6H PRN Administration NAUSEA AND VOMITING Pantoprazole Sodium 40 mg 08/20/23 13:00 08/21/23 00:31 Pantoprazole 40 Mg Sdv IVP 40 mg Q12H KATE Administration Pregabalin 100 mg 08/20/23 18:00 08/21/23 13:31 Pregabalin 100 Mg Capsule PO Not Given BID KATE Senna 17.2 mg 08/20/23 21:00 08/20/23 21:43 Sennosides 8.6 Mg Tablet PO 17.2 mg BEDTIME KATE Administration [facility] Anest[facility] Medical History (Updated 08/20/23 @ 15:52 by Blair Villareal DPM) Acute kidney injury Hypochloremic alkalosis Cyclical vomiting, intractable Osteomyelitis Hardware complicating wound infection Septic arthritis Postoperative anemia History of cardiovascular stress test (~10/2021) History of Holter monitoring (~12/2021) Baseline sinus rhythm, 50-129 bpm with average 79 bpm, one 4 beat run asymptomatic vtach Dyslipidemia Chronic kidney disease Cellulitis of toe of left foot GERD (gastroesophageal reflux disease) History of migraine Gout Cellulitis Nonunion after arthrodesis Pain in left ankle Pain in left foot Sepsis High anion gap metabolic acidosis Cyclical vomiting Hepatitis B core antibody positive Surface antibody positive, surface antigen negative, HBV DNA and hepatitis b envelope Ag negative = equals past infection. Check LFTs q 3-6 months on biologic therapy. Repeat hepatitis serology if LFTs positive. Risk of reactivation. Primary osteoarthritis of right knee Tendinopathy of right rotator cuff DDD (degenerative disc disease), lumbosacral Cyclical vomiting Alcohol withdrawal Ileus Memory loss CVA (cerebral vascular accident) incidental finding on MR done for hearing loss, located in left cerebellar region on MRI performed early 2021 Elevated troponin GI bleed nsaid induced gastritis Intermittent palpitations Frozen shoulder syndrome Cannabinoid hyperemesis syndrome History of colon polyps tubular adenomas Hypertension Anxiety Plaque psoriasis High risk medication use biologic agent for psoriasis Psoriatic arthritis Major depressive disorder, recurrent, in partial remission Post-traumatic stress disorder, chronic Cannabis dependence, uncomplicated Surgical History History of colonoscopy (~09/2021) History of hysterectomy History of ankle surgery multiple to left ankle History of shoulder surgery History of pelvic surgery History of eye surgery Has metal around eye orbit History of toe surgery multiple to left foot Family History Mother Stroke Psychiatric illness bipolar/depression Cancer Hypertension Hyperlipidemia Heart disease Migraines Father Cancer lung Heart disease Brother Psychiatric illness depression Other CAD (coronary artery disease) Diabetes Lung disease Social History Smoking and tobacco/nicotine status: current some day tobacco/nicotine user cigarettes [ Other cigarette details: Quarter to half pack a day] Alcohol intake: current Substance/Drug Use: current Substance/Drug use frequency: daily Data Anesthesia 08/21/23 06:03 08/21/23 06:03 Short CBC 08/20/23 08/21/23 Range/Units 08:50 06:03 WBC 20.49 H 19.00 H (3.29-11.43) 10^3/uL Hgb 15.70 11.60 (11.27-16.99) g/dL Hct 44.0 35.1 L (36-47) % MCV 78.0 L 84.0 L D (85-98) fl Plt Count 446 H 288 D (157-399) 10^3/cmm Neut % (Auto) 86.1 74.9 % Neut # (Auto) 17.63 H 14.24 H (1.8-7.7) 10^3/uL BMP 08/20/23 08/20/23 08/20/23 08:50 09:15 16:04 Sodium Cancelled 129 L 129 L Potassium Cancelled 3.3 L 2.7 L* Chloride Cancelled 69 L 81 L Carbon Dioxide Cancelled 34 H 29 BUN Cancelled 40 H 50 H Creatinine Cancelled 4.1 H 4.2 H Glucose Cancelled 134 H 113 Calcium Cancelled 10.9 H 8.5 08/21/23 06:03 Sodium 132 L Potassium 4.1 Chloride 87 L Carbon Dioxide 29 BUN 43 H Creatinine 3.5 H Glucose 108 Calcium 7.5 L Cardiac Enzymes 08/20/23 08/21/23 Range/Units 09:15 06:03 Creatine Kinase 3128 H* 3159 H* (26-192) U/L Liver Function 08/20/23 08/20/23 08/21/23 Range/Units 08:50 09:15 06:03 Total Bilirubin Cancelled 1.0 0.5 AST Cancelled 92 H 110 H ALT Cancelled 32 45 H Alkaline Phosphatase Cancelled 175 H 112 H Albumin Cancelled 5.4 H 3.8 Urine 08/20/23 Range/Units 09:40 Urine Color Yellow (Yellow) Urine Appearance Sl hazy A (CLEAR) Urine pH 8 H (5-7) Ur Specific Turrell 1.010 (1.005-1.030) Urine Protein 3+ H (Negative) Urine Glucose (UA) Norm (Normal) Urine Ketones 1+ H (Negative) Urine Nitrate Negative (Negative) Urine Bilirubin Neg (Negative) Ur Leukocyte Esterase Negative (Negative) Urine RBC 0-4 H (0-2) /hpf Urine WBC 0-4 H (0-5) /hpf Coags 08/20/23 09:15 ESR 42 H PT 12.10 INR 0.87 APTT 20.7 L C-Reactive Protein 14.5 H ABG 08/20/23 10:12 Specimen Type Arterial Sample Site Radial, left ABG pH 7.81 H* ABG pCO2 22.6 L ABG pO2 78.1 L ABG PO2/FiO2 Ratio 0 ABG HCO3 36.2 H ABG O2 Saturation 96.8 ABG Base Excess 18.6 H A-a O2 Gradient 5.7 O2 Delivery Device Room air FiO2 21.0 Microbiology 08/20/23 07:20 Blood Culture - Preliminary Blood NEGATIVE TO DATE 08/20/23 07:03 Blood Culture - Preliminary Blood NEGATIVE TO DATE Cardiac Studies: 2 Echocardiogram 10/30/21 Sestamibi Stress Test (Cardiology) 11/01 Cardiac Event Monitor 11/20/21
--- NOTE | 2023-08-21 13:35 | ANE.PACU2 ---
Inpatient post-anesthesia follow up: Airway intact: Yes Vital signs: Temperature 97 F Pulse Rate 72 Respiratory Rate 16 Blood Pressure 96/77 Pulse Oximetry 92 Oxygen Delivery Me thod Room Air Oxygen Flow Rate Fraction of Inspir ed Oxygen Hydration adequate: Yes Nausea and vomiting: No Pain level: 2 Mental status: Baseline
[2023-08-21] MEDS: pregabalin 100 mg Capsule PO (17:35)
[2023-08-22] MEDS: pantoprazole 40 mg SDV IVP ×2 (01:14→12:27)
[2023-08-22] MEDS: heparin 5,000 unit/mL INJ 1 mL 5000 UNIT SUBCUT (01:14)
[2023-08-22] MEDS: ondansetron 2 mg/ML SDV 2 mL 4 MG IVP (03:49)
[2023-08-22] MEDS: morphine 4 mg/mL SDV 1 mL 2 MG IVP ×3 (03:49→12:41)
[2023-08-22 03:55] VITALS: BP 154/96; PULSE 77; RESP 15; TEMP 36.6; O2SAT 93
[2023-08-22] MEDS: piperacillin-tazobactam 3.375 GM in sodium chloride 0.9% (plus) 50 ML IV (05:28)
[2023-08-22] MEDS: sodium chloride 0.9% 1,000 ML 125 ML IV (05:29)
[2023-08-22] MEDS: aspirin 81 mg EC Tablet PO (05:30)
[2023-08-22 05:46] LABS: Basophils % 0.2 %; Eosinophils # 0.1 10^3/uL (0.0-0.8); Eosinophils % 0.8 %; Hematocrit 29.5 % (36-47); Lymphocytes # 1.8 10^3/uL (0.8-4.8); Lymphocytes % 13.8 %; Mean Corpuscular HGB Conc 32.5 g/dL (30-55); Mean Corpuscular Hemoglobin 27.9 pg (27-33); Mean Corpuscular Volume 85.8 fl (85-98); Mean Platelet Volume 9.8 fL (7.4-10.4); Monocytes # 1.1 10^3/uL (0.2-0.9); Monocytes % 8.6 %; Neutrophils # 9.69 10^3/uL (1.8-7.7); Neutrophils % 76.2 %; Nucleated Red Blood Cells % 0 %; Platelet Count 241 10^3/cmm (157-399); Red Blood Count 3.44 10^6/uL (3.85-5.65); Red Cell Distribution Width 17.2 % (12.1-15.1); White Blood Count 12.71 10^3/uL (3.29-11.43)
[2023-08-22 06:10] LABS: Alanine Aminotransferase 34 U/L (0-33); Albumin Level 3.2 g/dL (3.5-5.2); Alkaline Phosphatase 82 U/L (35-105); Aspartate Amino Transferase 51 U/L (0-32); Blood Urea Nitrogen 22 mg/dL (6-20); Calcium 7.8 mg/dL (8.5-10.5); Carbon Dioxide 28 mmol/L (22-29); Chloride 100 mmol/L (98-107); Creatinine Clr Calc Pharmacy 33.5266; Glomerular Filtration Rate 25.9 mL/min (90-130); Glucose 100 mg/dL (65-115); Osmolality Calculated 291 mOsm/kg (285-295); Sodium 139 mmol/L (136-145); Total Bilirubin 0.2 mg/dL (0.15-1.2); Total Protein 5.2 g/dL (6.6-8.7)
[2023-08-22 06:18] LABS: Anion Gap 14.4 (5-19); Potassium 3.4 mmol/L (3.5-5.1)
[2023-08-22 06:20] LABS: Creatine Phosphokinase 1000 U/L (26-192)
[2023-08-22 07:08] VITALS: BP 121/82; PULSE 79; RESP 17; O2SAT 91
--- NOTE | 2023-08-22 07:35 | P.PN_ITS ---
Subjective 2 Subjective: Patient seen at bedside this morning. States that she has had intense pain overnight at the amputation site. She states that her pain medication that she is receiving takes the edge off of it. Vitals/I&O/Wt Last Vital Signs Temp 97.9 F 08/22/23 03:55 Pulse 79 08/22/23 07:08 Resp 17 08/22/23 07:08 BP 121/82 08/22/23 07:08 Pulse Ox 91 08/22/23 07:08 O2 Del Method Room Air 08/22/23 07:08 08/21/23 08/22/23 08/22/23 22:59 06:59 14:59 Intake Total 3050 / 4100 995.833 / 5095.833 Output Total 1800 / 1805 1100 / 2905 Balance 1250 / 2295 -104.167 / 2190.833 Weight last 48 hrs Weight 172 lb 3 oz Weight 164 lb 9 oz Weight 164 lb 9 oz Weight 165 lb Physical Exam 2 Narrative: BELOW IS A FOCUSED LOWER EXTREMITY EXAM GENERAL: A&O x 3 VASCULAR: DP/PT pulses palpable 2/4 with CFT intact, <3seconds to distal digits DERMATOLOGICAL: Surgical dressing intact to left foot with no strikethrough noted MUSCULOSKELETAL: No pain with calf squeeze NEUROLOGICAL: Neurological sensation to the affected foot and ankle is present through L4-S1 dermatomes with no hyper/hypoesthesias, negative Tinel or Valleix's sign Urinary Catheter Management: Abel: Cath Placed During This Visit: yes Reason for Continuing Indwelling Catheter: Required Immobilization for Trauma or Surgery or Anesthesia Urinary Catheter Date of Insertion: 08/20/23 Urinary Catheter Time of Insertion: 11:30 Data 08/22/23 05:36 08/22/23 05:36 Micro: Microbiology 08/21/23 11:00 Gram Stain - Final Toe - #1 08/20/23 07:20 Blood Culture - Preliminary Blood NEGATIVE TO DATE 08/20/23 07:03 Blood Culture - Preliminary Blood NEGATIVE TO DATE A&P Assessment and plan (1) Sepsis: (2) Left hallux osteomyelitis: Plan -Left foot first metatarsal osteomyelitis and base of proximal phalanx osteomyelitis--status post left foot partial first ray resection (08/21/2023) -Labs and vitals reviewed -WBC 20.4--> 12.7 -ESR 42 -CRP 14.5 VSS -Cultures pending -Abx Vanco/Zosyn -Diet: Okay for diet from podiatry standpoint -Status post left foot partial first ray resection. No further surgical intervention by podiatry during this admission. -Pain Mgmt: Per hospitalist -Weight bearing: Weightbearing as tolerated to left lower extremity in postop shoe -Continue current Abx therapy until ID and Sensitivity results -Trend labs -Discharge plan: Patient is okay to discharge home from podiatry standpoint once pain is controlled and patient is deemed medically stable. Recommend discharge with oral antibiotics. Based on intraoperative findings, PICC line is not necessary in regards to the infection of the foot. Patient has been on doxycycline since last admission as [facility] showed MRSA sensitive to tetracyclines. We can adjust antibiotic therapy in the outpatient setting once [facility] report results from intraoperative culture swabs. Patient is okay to weight-bear as tolerated in postop shoe. Recommend close follow-up in the outpatient setting with Dr. Villareal. Recommend follow-up within 1 week of discharge -Podiatry will continue to round on patient daily and provide recommendations Attestations 2 Medical Necessity Statement*: Left foot osteomyelitis that required subsequent partial first ray amputation of the left foot. Plan is to get postoperative pain under control prior to discharge. Coding Level of Care Code Acute Code for [facility] Diagnoses Sepsis A41.9 Left hallux osteomyelitis M86.9
[2023-08-22 07:54] VITALS: RESP 18; O2SAT 95
[2023-08-22] MEDS: pregabalin 100 mg Capsule PO (07:55)
[2023-08-22] MEDS: metoprolol tartrate 25 mg Tablet PO (07:55)
[2023-08-22] MEDS: duloxetine 60 mg Capsule PO (08:45)
[2023-08-22] MEDS: potassium chloride ER 20 mEq Tablet 40 MEQ PO (08:45)
[2023-08-22] MEDS: HYDROcodone-acetaminophen 5-325 mg Tablet 1 TAB PO ×2 (08:52→12:52)
--- NOTE | 2023-08-22 11:00 | PC.NURSE ---
Patient voided 250 at this time. Abel catheter was removed this morning.
[2023-08-22] MEDS: vancomycin 1,250 MG/250 ML PIGGYBACK 250 MG IV (11:08)
[2023-08-22 11:40] VITALS: BP 132/88; PULSE 90; RESP 16; TEMP 36.9; O2SAT 91
--- NOTE | 2023-08-22 12:03 | P.DS_ITS ---
Discharge Providers Date of Admission: 08/20/23 10:13 Date of Discharge: August 22, 2023 Attending Provider at Admission: Howie Gtz MD Attending Provider at Discharge: Howie Gtz MD Primary Care Provider: Bucky Rogers MD Diagnoses at Discharge Discharge Diagnosis (1) Sepsis: Status: Acute (2) Left hallux osteomyelitis: Status: Acute Reason for Visit Reason for Visit: foot pain Hospital Course Hospital Course Rachelle is a 53-year-old white female with history of osteomyelitis of left foot on chronic suppression who presented to the emergency department with complaints of foot pain, temperature of 100, repetitive vomiting. There was concern she was septic. She had recently received an injection of secukinumab for her psoriasis as well. She was placed on broad-spectrum antibiotics, hydrated. She was found to have acute kidney injury. There was no evidence of obstruction. CK was elevated consistent with rhabdo. During her hospital stay her kidney f unction improved significantly. She had no fevers. Blood cultures were negative. Podiatry followed her and removed her toe, great toe on the left side, with hopes that she would not need any chronic antibiotic suppression in the future. By the time of discharge patient had no evidence of vomiting, white count was nearly normal, creatinine 2.0 improved from 4.2, and CK markedly improved. She was told to encourage fluids, follow surgery's instructions, not receive any more secukinumab currently, finish antibiotics as prescribed. She was given opportunity ask questions, and agreed with the plan. Risks and benefits of pain medication discussed Physical Exam Narrative: General exam no distress Neck is supple Cardiovascular regular rate and rhythm Lungs clear Abdomen is soft Extremities no cyanosis clubbing or edema, dressing noted Urinary Catheter Management: Abel: Cath Placed During This Visit: yes, but has since been removed by the nurse Reason for Continuing Indwelling Catheter: Decision to DC Catheter Urinary Catheter Date of Insertion: 08/20/23 Urinary Catheter Time of Insertion: 11:30 Date Urinary Catheter Removed: 08/22/23 Time Urinary Catheter Discontinued: 09:45 Discharge Data Studies Completed and Pending Completed Studies During Hospitalization Category Date Time Status CT abdomen pelvis wo con [id number] Routine Cat Scan 08/20/23 12:46 Completed CXRP [XR chest 1V portable [id number]] Stat Exams 08/20/23 09:40 Completed XR foot LT min 3V* [id number] Stat Exams 08/20/23 05:46 Completed MR foot LT wo con* [id number] Routine MRI 08/20/23 12:47 [place] [id number] Routine Ultrasound 08/20/23 13:03 Completed Pending at discharge Category Date Time Status Anaerobic Culture Routine Lab 08/21/23 11:00 Results Blood Culture Stat Lab 08/20/23 07:20 Results Wound Culture and Gram Stain Routine Lab 08/21/23 11:00 Results Pathology: Surgical [PTH] Routine Pth 08/21/23 11:54 Received Radiology Impressions Foot X-Ray 08/20/23 05:46 IMPRESSION: Extensive postoperative findings. Laboratory Results WBC 12.71 10^3/uL (3.29-11.43) H 08/22/23 05:36 RBC 3.44 10^6/uL (3.85-5.65) L 08/22/23 05:36 Hgb 9.60 g/dL (11.27-16.99) L 08/22/23 05:36 Hct 29.5 % (36-47) L 08/22/23 05:36 MCV 85.8 fl (85-98) 08/22/23 05:36 MCH 27.9 pg (27-33) 08/22/23 05:36 MCHC 32.5 g/dL (30-55) 08/22/23 05:36 RDW 17.2 % (12.1-15.1) H 08/22/23 05:36 Plt Count 241 10^3/cmm (157-399) 08/22/23 05:36 MPV 9.8 fL (7.4-10.4) 08/22/23 05:36 Neut % (Auto) 76.2 % 08/22/23 05:36 Lymph % (Auto) 13.8 % 08/22/23 05:36 [place] % (Auto) 8.6 % 08/22/23 05:36 Eos % (Auto) 0.8 % 08/22/23 05:36 Baso % (Auto) 0.2 % 08/22/23 05:36 Neut # (Auto) 9.69 10^3/uL (1.8-7.7) H 08/22/23 05:36 Lymph # (Auto) 1.8 10^3/uL (0.8-4.8) 08/22/23 05:36 [place] # (Auto) 1.1 10^3/uL (0.2-0.9) H 08/22/23 05:36 Eos # (Auto) 0.1 10^3/uL (0.0-0.8) 08/22/23 05:36 Baso # (Auto) 0.0 10^3/uL (0.0-0.1) 08/22/23 05:36 Nucleated RBC % (auto) 0 % 08/22/23 05:36 Nucleated RBCs # 0.0 /100WBC 08/22/23 05:36 ESR 42 mm/hr (0-15) H 08/20/23 09:15 PT 12.10 SECONDS (12.1-14.9) 08/20/23 09:15 INR 0.87 (0.8-1.2) 08/20/23 09:15 APTT 20.7 SECONDS (23.9-36.7) L 08/20/23 09:15 Specimen Type Arterial 08/20/23 10:12 Sample Site Radial, left 08/20/23 10:12 ABG pH 7.81 (7.35-7.45) H* 08/20/23 10:12 ABG pCO2 22.6 mmHg (35-45) L 08/20/23 10:12 ABG pO2 78.1 mmHg (80.0-100.0) L 08/20/23 10:12 ABG PO2/FiO2 Ratio 0 08/20/23 10:12 ABG HCO3 36.2 mmol/L (22-26) H 08/20/23 10:12 ABG O2 Saturation 96.8 08/20/23 10:12 ABG Base Excess 18.6 mmol/L (-2.0-2.0) H 08/20/23 10:12 [place] Test Pos 08/20/23 10:12 A-a O2 Gradient 5.7 mmHg (5-10) 08/20/23 10:12 Hematocrit 48.6 % (37-47) H 08/20/23 10:12 Hgb O2 Saturation 96.0 % (95-100) 08/20/23 10:12 Carboxyhemoglobin 0.5 %THgb (0.4-20.1) 08/20/23 10:12 Methemoglobin 0.3 % (0.4-1.5) L 08/20/23 10:12 Total Hemoglobin 15.9 g/dL (12-16) 08/20/23 10:12 Sodium 129.0 mmol/L (131-143) L 08/20/23 10:12 Potassium 3.3 mmol/L (3.5-5.0) L 08/20/23 10:12 Glucose 151.0 mg/dL (70-115) H 08/20/23 10:12 Ionized Calcium 1.0 mmol/L (1.1-1.4) L 08/20/23 10:12 O2 Delivery Device Room air 08/20/23 10:12 FiO2 21.0 % 08/20/23 10:12 Supervisor Sh[employer] Spl[employer] ID [place] 08/20/23 10:12 Sodium 139 mmol/L (136-145) 08/22/23 05:36 Potassium 3.4 mmol/L (3.5-5.1) L 08/22/23 05:36 Chloride 100 mmol/L (98-107) 08/22/23 05:36 Carbon Dioxide 28 mmol/L (22-29) 08/22/23 05:36 Anion Gap 14.4 (5-19) 08/22/23 05:36 BUN 22 mg/dL (6-20) H 08/22/23 05:36 Creatinine 2.0 mg/dL (0.5-0.9) H 08/22/23 05:36 GFR Calculation 25.9 mL/min (90-130) L 08/22/23 05:36 Glucose 100 mg/dL (65-115) 08/22/23 05:36 Calculated Osmolality 291 mOsm/kg (285-295) 08/22/23 05:36 Lactic Acid 3.7 mmol/L (0.5-2.2) H 08/20/23 09:15 Lactic Acid (Sepsis) 2.1 mmol/L (0.5-2.2) 08/20/23 12:25 Uric Acid 11.2 mg/dL (2.4-5.7) H 08/20/23 09:15 Calcium 7.8 mg/dL (8.5-10.5) L 08/22/23 05:36 Magnesium 1.9 mg/dL (1.7-2.3) 08/21/23 06:03 Total Bilirubin 0.2 mg/dL (0.15-1.2) 08/22/23 05:36 AST 51 U/L (0-32) H 08/22/23 05:36 ALT 34 U/L (0-33) H 08/22/23 05:36 Alkaline Phosphatase 82 U/L (35-105) 08/22/23 05:36 Creatine Kinase 1000 U/L (26-192) H* 08/22/23 05:36 C-Reactive Protein 14.5 mg/L (0.0-4.9) H 08/20/23 09:15 Total Protein 5.2 g/dL (6.6-8.7) L 08/22/23 05:36 Albumin 3.2 g/dL (3.5-5.2) L 08/22/23 05:36 Globulin 2.0 g/dL (1.3-4.6) 08/22/23 05:36 TSH 1.50 uIU/mL (0.27-4.20) 08/20/23 09:15 Urine Color Yellow (Yellow) 08/20/23 09:40 Urine Appearance Sl hazy (CLEAR) A 08/20/23 09:40 Urine pH 8 (5-7) H 08/20/23 09:40 Ur Specific [place] 1.010 (1.005-1.030) 08/20/23 09:40 Urine Protein 3+ (Negative) H 08/20/23 09:40 Urine Glucose (UA) Norm (Normal) 08/20/23 09:40 Urine Ketones 1+ (Negative) H 08/20/23 09:40 Urine Blood 3+ (Negative) H 08/20/23 09:40 Urine Nitrate Negative (Negative) 08/20/23 09:40 Urine Bilirubin Neg (Negative) 08/20/23 09:40 Prot Sulfosalicylic Acd Positive (Negative) 08/20/23 09:40 Urine Urobilinogen Norm mg/dL (Negative) 08/20/23 09:40 Ur Leukocyte Esterase Negative (Negative) 08/20/23 09:40 Urine RBC 0-4 /hpf (0-2) H 08/20/23 09:40 Urine WBC 0-4 /hpf (0-5) H 08/20/23 09:40 Ur Squamous Epith Cells 0-4 /hpf (0-5) H 08/20/23 09:40 Amorphous Sediment Trace /hpf 08/20/23 09:40 Urine Bacteria Trace /hpf (NONE) 08/20/23 09:40 Hyaline Casts 5-10 /lpf H 08/20/23 09:40 Fine Granular Casts 0-4 /lpf H 08/20/23 09:40 Urine Mucus 2+ /hpf 08/20/23 09:40 Salicylates < 0.3 mg/dL (3-10) L 08/20/23 09:15 Urine Opiates Screen Negative ng/mL (Negative) 08/20/23 09:40 Acetaminophen 7.7 ug/mL (10-30) L 08/20/23 09:15 Ur Barbiturates Screen Negative ng/mL (Negative) 08/20/23 09:40 Ur Phencyclidine Scrn Negative ng/mL (Negative) 08/20/23 09:40 Ur Amphetamines Screen Negative ng/mL (Negative) 08/20/23 09:40 U Benzodiazepines Scrn Negative ng/mL (Negative) 08/20/23 09:40 Urine Cocaine Screen Negative ng/mL (Negative) 08/20/23 09:40 U Marijuana (THC) Screen Positive ng/mL (Negative) H 08/20/23 09:40 Ethyl Alcohol < 10 mg/dL (0-10) 08/20/23 09:15 Vitals Last Vital Signs Temp 98.5 F 08/22/23 11:40 Pulse 90 08/22/23 11:40 Resp 16 08/22/23 11:40 BP 132/88 08/22/23 11:40 Pulse Ox 91 08/22/23 11:40 O2 Del Method Room Air 08/22/23 11:40 Discharge Plan Discharge Patient Disposition: Home Condition: Stable Prescriptions: New hydrocodone-acetaminophen 5-325 mg Tablet 1 tab PO Q4H PRN (Reason: Moderate Pain) Qty: 20 0RF amoxicillin-pot clavulanate 875-125 mg tablet 1 tab PO BID Qty: 14 0RF Continued (DME) CAM boot See Rx Instructions .Route .MEDSUPPLY Qty: 1 0RF Rx Instructions: As directed ferrous fumarate 89 mg (29 mg iron) tablet 89 mg PO DAILY doxycycline hyclate 100 mg capsule 100 mg PO BID 90 Days Qty: 180 5RF fluconazole 150 mg tablet 150 mg PO Q3D PRN (Reason: vaginal yeast infection) Qty: 30 0RF Rx Instructions: take one tablet at start of symptoms, repeat at day 3. Cymbalta 60 mg capsule,delayed release(DR/EC) 60 mg PO BID Qty: 60 0RF Cosentyx Pen (2 Pens) 150 mg/mL pen injector 300 mg SUBCUT DIRECTED Qty: 2 4RF Rx Instructions: Start 300 mg SC q week x 5 weeks; then q 4 weeks for maintenance pantoprazole 40 mg tablet,delayed release (DR/EC) 40 mg PO BID amlodipine 10 mg tablet 10 mg PO QAM sennosides [senna] 8.6 mg Tablet 17.2 mg PO BEDTIME Qty: 30 0RF pregabalin 100 mg capsule 100 mg PO BID atorvastatin 40 mg tablet 40 mg PO DAILY lidocaine 5 % adhesive patch,medicated 1 patch topical DAILY Nicoderm CQ 7 mg/24 hr patch 24 hour 1 patch topical .COMPLEX Rx Instructions: Apply one patch a day for at least 6 weeks. Start after 2 weeks on 14 mg patch. metoprolol tartrate 37.5 mg tablet 37.5 mg PO BID aspirin 81 mg tablet,delayed release (DR/EC) 81 mg PO QAM promethazine 25 mg tablet 25 mg PO Q6H PRN (Reason: Nausea) Qty: 10 0RF ondansetron HCl 4 mg tablet 4 mg PO DAILY Qty: 10 0RF Discharge Orders: Discharge Order (Routine); Ordered 08/22/23 Ordered By: Howie Gtz Referrals: Bucky Rogers MD [Primary Care Provider] - 4-7 days (BMP on follow-up, recheck kidney function) Blair Villareal DPM [Physician] - 7-10 days Discharge Diet: Usual diet Discharge Activity: Increase activity as tolerated Patient Instructions: Opioid Safety Activity Restrictions/Additional Instructions: Postoperative instructions per podiatry Follow up with podiatry per their instructions See primary care provider 3 to 5 days Use pain medication sparingly Return for any fever Augmentin doxycycline for at least the next week, podiatry will direct if this is needed in the future. Remove PICC line prior to discharge Avoid all anti-inflammatories BMP on follow-up with your primary care provider to check your kidney function do not take any more secukinumab until Checking with dermatology, and reviewing with primary to make sure no infection is present. Discharge Attestations Time Spent in Discharge Care*: greater than 30 min Status at Discharge: Cognitive status at discharge: cognitively intact , Behavioral status at discharge: cooperative , Quality Metrics Clinical Quality Measures [ No reported AMI, CVA or VTE this stay] Coding Level of Care Code 57733 Total time (in minutes) for Discharge: 36 Diagnoses Sepsis A41.9 Left hallux osteomyelitis M86.9
[2023-08-22 12:41] VITALS: RESP 18; O2SAT 95
--- NOTE | 2023-08-22 12:50 | PC.NURSE ---
PICC Line removed intact. Pressure held for 10 minutes. No bleeding noted. Patient tolerated well.
[2023-08-22 13:00] VITALS: RESP 18; TEMP 36.7; O2SAT 95
--- NOTE | 2023-08-22 13:00 | PC.NURSE ---
Patient is A&Ox3. Respirations even an non-labored on room air. Reviewed discharge with patient who verbalized understanding of how to take medications and of follow up appointments. Patient wheel chaired to private car
== END 2023-08-22 13:00 | disposition home or self-care (01) | DRG 475 ==
LOC: ER 06:10 → ER IP 11:14 → MEDSURG 14:29
PROVIDERS: Podiatrist Foot & Ankle Surgery; Admitting Provider Internal Medicine; Emergency Provider Family Medicine; PCP Family Medicine; Visit Provider Internal Medicine
PROC: 0Y6N0Z9 Detachment at Left Foot, Partial 1st Ray, Open Approach (ICD-10-PCS; CPT 28810; principal; 2023-08-21 09:45)
DX: M86.672 Other chronic osteomyelitis, left ankle and foot (principal); E87.20 Acidosis, unspecified; M62.82 Rhabdomyolysis; N17.9 Acute kidney failure, unspecified; L40.0 Psoriasis vulgaris; E78.5 Hyperlipidemia, unspecified; N18.9 Chronic kidney disease, unspecified; I12.9 Hypertensive chronic kidney disease with stage 1 through stage 4 chronic kidney disease, or unspecified chronic kidney disease; K21.9 Gastro-esophageal reflux disease without esophagitis; M10.9 Gout, unspecified; L40.50 Arthropathic psoriasis, unspecified; F33.41 Major depressive disorder, recurrent, in partial remission; F43.12 Post-traumatic stress disorder, chronic; F12.20 Cannabis dependence, uncomplicated; F17.210 Nicotine dependence, cigarettes, uncomplicated; Z86.73 Personal history of transient ischemic attack (TIA), and cerebral infarction without residual deficits; Z79.82 Long term (current) use of aspirin; Z79.2 Long term (current) use of antibiotics
CPT/HCPCS: 36415; 36573; 36592; 51702; 71045; 73630; 73718; 74176; 80048; 80051; 80053; 80306; 80307; 81001; 82330; 82550; 82805; 83605; 83735; 84443; 84550; 85025; 85610; 85651; 85730; 86140; 87040; 87070; 87075; 87205; 88307; 88311; 93005; 93970; 96365; 96372; 96375; 99285; C1751; C9113; J1100; J1644; J1885; J2001; J2250; J2270; J2371; J2405; J2543; J2704; J2765; J3370; J3490; J7030; J7050

== ENCOUNTER 2023-08-29 15:17 | Outpatient (CLI) | payer MEDICARE, MEDICAID, SELFPAY | END 2023-08-29 15:18 | disposition home or self-care (01) | LOC: SPT 15:18 | PROVIDERS: PCP Family Medicine; Visit Provider Podiatrist Foot & Ankle Surgery | DX: Z47.89 Encounter for other orthopedic aftercare (principal); Z98.890 Other specified postprocedural states; L97.522 Non-pressure chronic ulcer of other part of left foot with fat layer exposed | CPT/HCPCS: 97760; 99024; L4361 ==

== ENCOUNTER → 2023-09-04 13:57 | Outpatient (BNVA) | payer MEDICARE, MEDICAID, SELFPAY | PROVIDERS: PCP Family Medicine; Visit Provider Podiatrist Foot & Ankle Surgery | DX: Z98.890 Other specified postprocedural states (principal); L97.522 Non-pressure chronic ulcer of other part of left foot with fat layer exposed | CPT/HCPCS: 99024 ==

== ENCOUNTER 2023-09-13 11:40 | Outpatient (CLI) | payer MEDICARE, MEDICAID, SELFPAY ==
--- NOTE | 2023-09-13 11:51 | MM_ITS ---
WS: [id number] BILATERAL 3D TOMOSYNTHESIS DIGITAL SCREENING MAMMOGRAPHY WITH CAD CLINICAL INFORMATION: SCREENING HISTORY: Screening mammogram. Chronic RIGHT breast lumps COMPARISON: 05/15/2022 TECHNIQUE: Bilateral CC and MLO views. FINDINGS: The breasts are composed of heterogeneous fibroglandular density tissue, which can limit the detectio n of small underlying mass lesions. No suspicious mass, asymmetry, calcifications, or architectural d istortion. No evidence of malignancy. Chronic RIGHT nipple inversion stable since 2011. Nipple and kovacs bareolar soft tissue previously evaluated with ultrasound 2021 and was unremarkable. IMPRESSION: MM/[place] [id number] BI-RADS: 2-Benign FOLLOW UP: 1 Year Follow-up Recommend return to annual screening mammography.
== END 2023-09-13 11:41 | disposition home or self-care (01) ==
LOC: RAD 11:41
PROVIDERS: PCP Family Medicine; Visit Provider Family Medicine
DX: Z12.31 Encounter for screening mammogram for malignant neoplasm of breast (principal)
CPT/HCPCS: 77063; 77067

== ENCOUNTER → 2023-10-03 14:37 | Outpatient (BNVA) | payer MEDICARE, MEDICAID, SELFPAY | PROVIDERS: PCP Family Medicine; Visit Provider Podiatrist Foot & Ankle Surgery | DX: Z98.890 Other specified postprocedural states (principal); L97.522 Non-pressure chronic ulcer of other part of left foot with fat layer exposed | CPT/HCPCS: 99024 ==

== ENCOUNTER → 2023-10-16 14:08 | Outpatient (BNVA) | payer MEDICARE, MEDICAID, SELFPAY | PROVIDERS: PCP Family Medicine; Visit Provider Dermatology | DX: L40.0 Psoriasis vulgaris (principal); L20.89 Other atopic dermatitis | CPT/HCPCS: 99214 ==

== ENCOUNTER → 2023-12-03 09:26 | Outpatient (BNVA) | payer MEDICARE, MEDICAID, SELFPAY | PROVIDERS: PCP Family Medicine; Referring Provider Family Medicine; Visit Provider Surgery | DX: Z12.11 Encounter for screening for malignant neoplasm of colon (principal) | CPT/HCPCS: 99024; 99214 ==

== ENCOUNTER 2023-12-08 13:26 | Inpatient (IN) | payer MEDICARE, MEDICAID, SELFPAY ==
[2023-12-08] VITALS (7 sets, daily range): BP systolic 144–182; BP diastolic 103–120; PULSE 85–111; RESP 17–20; TEMP 36.3–37.2; O2SAT 92–99; BMI 25.8
--- NOTE | 2023-12-08 13:37 | CTR_ITS ---
PROCEDURE INFORMATION: Exam: CT Abdomen And Pelvis Without Contrast Exam date and time: 12/08/2023 3:28 PM Age: 53 years old Clinical indication: Abdominal pain; Epigastric; Additional info: Upper abdominal pain, hematemesis TECHNIQUE: Imaging protocol: Computed tomography of the abdomen and pelvis without contrast. Radiation optimization: All CT scans at this facility use at least one of these dose optimization techniques: automated exposure control; mA and/or kV adjustment per patient size (includes targeted exams where dose is matched to clinical indication); or iterative reconstruction. COMPARISON: CT abdomen pelvis wo con [id number] 08/20/2023 1:38 PM RADIATION DOSE METRICS: Total DLP (mGy-cm): 484.1 FINDINGS: Esophagus: There is distal esophageal wall thickening, consistent with mild esophagitis. Liver: Normal. No mass. Gallbladder and bile ducts: There has been a cholecystectomy. Pancreas: Normal. No ductal dilation. Spleen: Normal. No splenomegaly. Adrenal glands: Normal. No mass. Kidneys and ureters: Bilateral renal cysts.No hydronephrosis or nephrolithiasis. Ureters are normal. Stomach and bowel: Unremarkable. No obstruction. No mucosal thickening. Prominent mesenteric lymph nodes are noted, along with prominent small loops of bowel, which may indicate enteritis. Appendix: No evidence of appendicitis. Intraperitoneal space: Unremarkable. No free air. No significant fluid collection. Vasculature: Unremarkable. No abdominal aortic aneurysm. Lymph nodes: Unremarkable. No enlarged lymph nodes. Urinary bladder: Unremarkable as visualized. Reproductive: Unremarkable as visualized. Bones/joints: Stable bilateral sacroiliac and superior pubic rami fixation and screws. Soft tissues: Unremarkable. CT/CT abdomen pelvis wo con [id number] IMPRESSION: 1. Distal esophageal wall thickening which can be seen with esophagitis. 2. No evidence of pancreatitis. 3. Prominent mesenteric lymph nodes are noted, along with prominent small loops of bowel, which may indicate enteritis. COMMENTS: Consistent with the [employer]'s Incidental Findings Committee white paper (J Am Marga Radiol 2018): Any incidental renal lesion less than 1 cm or classified as too small to characterize, or any incidental cystic renal lesion characterized as simple-appearing, is likely benign. No follow-up imaging is recommended for these lesions per consensus recommendations based on imaging criteria.
--- NOTE | 2023-12-08 13:39 | ED_ITS ---
HPI - Nausea/Vomiting/Diarrhea 2 General: Chief complaint: Nausea/Vomiting/Diarrhea Stated complaint: N/V Time Seen by Provider: 12/08/23 13:29 Source: patient and EMS Mode of arrival: EMS Limitations: no limitations History of Present Illness: Patient is a 53-year-old female with an extensive past medical history here via EMS for evaluation of abdominal pain nausea and vomiting. Patient tells me 2 days ago she ate [employer] meal and afterwards developed bubble gut . When asked to elaborate she tells me she felt like she had an intense amount of air in her abdomen. Patient states by that evening she was vomiting. She states vomiting persisted all day yesterday and into today. She states she has not been able to hold down her home medications. EMS states when they arrived they noted bloody emesis in the basin next to patient. Patient tells me she has a history of gastric ulcers that were diagnosed years ago. She states she supposed to be taking Protonix daily. Denies alcohol use. No fevers. She is a habitual marijuana user. History of cyclical vomiting syndrome. MD elicited complaint: nausea, vomiting and abdominal pain Pertinent past history: cyclical vomiting and other (gastric ulcers) Onset (ago): day(s) Description of vomiting: bloody Associated nausea: Yes Associated abdominal pain: Yes Location of pain: Epigastric Pain consistency: constant Severity: severe Quality: sharp Exacerbating factors: eating Relieving factors: none Associated symtoms: Reports nausea; Denies change in vision, chest pain, dizziness, dysuria, fatigue, headache(s), malaise, palpitations or syncope Review of Systems 2 Const: Denies: fever(s), chills, body aches, fatigue or malaise Eyes: Denies: change in vision or blurry vision Card: Denies: chest pain, palpitations, irregular heart rhythm, lightheadedness, syncope or dyspnea on exertion Resp: Denies: dyspnea, productive cough or pain on inspiration GI: Reports: abdominal pain, nausea, vomiting and hematemesis; Denies: heartburn, diarrhea or change in bowel habits : Denies: flank pain or dysuria Musc: Denies: neck pain, back pain, extremity pain, extremity swelling or joint pain Skin/Breast: Denies: rash Neuro: Denies: headache(s), numbness in extremities, weakness in extremities, sensory changes or dizziness [facility] ED 2 PFSH: Medical History Acute kidney injury Hypochloremic alkalosis Cyclical vomiting, intractable Osteomyelitis Hardware complicating wound infection Septic arthritis Postoperative anemia History of cardiovascular stress test (~10/2021) History of Holter monitoring (~12/2021) Baseline sinus rhythm, 50-129 bpm with average 79 bpm, one 4 beat run asymptomatic vtach Dyslipidemia Chronic kidney disease Cellulitis of toe of left foot GERD (gastroesophageal reflux disease) History of migraine Gout Cellulitis Nonunion after arthrodesis Pain in left ankle Pain in left foot Sepsis High anion gap metabolic acidosis Cyclical vomiting Hepatitis B core antibody positive Surface antibody positive, surface antigen negative, HBV DNA and hepatitis b envelope Ag negative = equals past infection. Check LFTs q 3-6 months on biologic therapy. Repeat hepatitis serology if LFTs positive. Risk of reactivation. Primary osteoarthritis of right knee Tendinopathy of right rotator cuff DDD (degenerative disc disease), lumbosacral Cyclical vomiting Alcohol withdrawal Ileus Memory loss CVA (cerebral vascular accident) incidental finding on MR done for hearing loss, located in left cerebellar region on MRI performed early 2021 Elevated troponin GI bleed nsaid induced gastritis Intermittent palpitations Frozen shoulder syndrome Cannabinoid hyperemesis syndrome History of colon polyps tubular adenomas Hypertension Anxiety Plaque psoriasis High risk medication use biologic agent for psoriasis Psoriatic arthritis Major depressive disorder, recurrent, in partial remission Post-traumatic stress disorder, chronic Cannabis dependence, uncomplicated Surgical History History of colonoscopy (~09/2021) History of hysterectomy History of ankle surgery multiple to left ankle History of shoulder surgery History of pelvic surgery History of eye surgery Has metal around eye orbit History of toe surgery multiple to left foot Family History Mother Stroke Psychiatric illness bipolar/depression Cancer Hypertension Hyperlipidemia Heart disease Migraines Father Cancer lung Heart disease Brother Psychiatric illness depression Other CAD (coronary artery disease) Diabetes Lung disease Social History Smoking and tobacco/nicotine status: current some day tobacco/nicotine user cigarettes [ Other cigarette details: Quarter to half pack a day] Alcohol intake: current Substance/Drug Use: current Substance/Drug use frequency: daily Physical Exam 2 Const: COMMON NORMALS: patient oriented x3, no limitations and alert G ENERAL APPEARANCE: disheveled and appears older than stated age O RIENTATION/CONSCIOUSNESS: Yes awake, Yes oriented to person, Yes oriented to place and Yes oriented to time HENMT: COMMON NORMALS: normocephalic and atraumatic HEAD & SCALP: normal to inspection, normocephalic and atraumatic Eye: COMMON NORMALS: no scleral icterus Resp: COMMON NORMALS: normal respiratory effort and clear to auscultation bilaterally AUSCULTATION: clear to auscultation bilaterally Cardio: COMMON NORMALS: regular rhythm RATE: tachycardic RHYTHM: regular rhythm GI: COMMON NORMALS: Normal to inspection, nondistended, normoactive bowel sounds present, Soft to palpation, No hepatosplenomegaly present and no masses INSPECTION: Yes normal to inspection AUSCULTATION: Yes normoactive bowel sounds PALPATION: Yes Soft to palpation, Yes Tenderness to palpation present (GI) (throughout upper abdomen; mainly epigastric), No Guarding due to palpation present (GI), No Rigid due to palpation and Yes No hepatosplenomegaly present : COMMON NORMALS: Yes no CVA tenderness BLADDER/KIDNEY EXAM: Yes no CVA tenderness Back/Pelvis: COMMON NORMALS: no CVA tenderness Extremity: GENERAL: Yes normal exam except as noted Neuro: JUANY COMA SCALE: document GCS findings Juany coma scale eye opening: Spontaneous [place] coma scale verbal response: Orientated [place] coma scale motor response: Obey commands Juany coma scale total score: 15 COMMON NORMALS: patient oriented x3, moves all extremities, no focal motor deficits and no sensory deficits noted SENSORIUM/ORIENTATION: Yes alert, Yes oriented to person, Yes oriented to place and Yes oriented to time Skin: COMMON NORMALS: no rashes or lesions noted GENERAL SKIN EXAM: no rashes or lesions noted Course 2 Vital Signs: Vital signs: Vital Signs Temperature 98.9 F 12/08/23 13:29 Pulse Rate 88 12/08/23 15:58 Respiratory Rate 18 12/08/23 15:58 Blood Pressure 148/109 12/08/23 15:58 Pulse Oximetry 98 12/08/23 15:58 Oxygen Delivery Me thod Nasal Cannula 12/08/23 15:58 Oxygen Flow Rate 2 12/08/23 15:58 MDM - Nausea/Vomiting/Diarrhea Medical Decision Making Patient patient is a 53-year-old female with multiple comorbidities here for complaints of intractable nausea and vomiting and abdominal pain over the past 2 days or so. She arrives extremely hypertensive and tachycardic. She has not been able to hold down her home blood pressure medications. On her labs white count is 16.6. She is significantly hypokalemic with a potassium of 2.7. Her mag is normal. She has an elevated gap, acute kidney injury, lactic is 3.1. She clinically appears ill. She will require hospitalization. Have spoken to Dr. Pedraza who will admit. Dr. Schneider aware of patient and agrees with need for admission. He will place admit orders. Lab Data 12/08/23 14:01 12/08/23 14:01 Laboratory Results WBC 16.61 10^3/uL (3.29-11.43) H 12/08/23 14:01 RBC 4.80 10^6/uL (3.85-5.65) 12/08/23 14:01 Hgb 14.20 g/dL (11.27-16.99) 12/08/23 14:01 Hct 41.0 % (36-47) 12/08/23 14:01 MCV 85.4 fl (85-98) 12/08/23 14:01 MCH 29.6 pg (27-33) 12/08/23 14:01 MCHC 34.6 g/dL (30-55) 12/08/23 14:01 RDW 16.5 % (12.1-15.1) H 12/08/23 14:01 Plt Count 436 10^3/cmm (157-399) H 12/08/23 14:01 MPV 9.8 fL (7.4-10.4) 12/08/23 14:01 Neut % (Auto) 80.2 % 12/08/23 14:01 Lymph % (Auto) 9.6 % 12/08/23 14:01 [place] % (Auto) 9.0 % 12/08/23 14:01 Eos % (Auto) 0.4 % 12/08/23 14:01 Baso % (Auto) 0.2 % 12/08/23 14:01 Neut # (Auto) 13.32 10^3/uL (1.8-7.7) H 12/08/23 14:01 Lymph # (Auto) 1.6 10^3/uL (0.8-4.8) 12/08/23 14:01 [place] # (Auto) 1.5 10^3/uL (0.2-0.9) H 12/08/23 14:01 Eos # (Auto) 0.1 10^3/uL (0.0-0.8) 12/08/23 14:01 Baso # (Auto) 0.0 10^3/uL (0.0-0.1) 12/08/23 14:01 Nucleated RBC % (auto) 0 % 12/08/23 14:01 Nucleated RBCs # 0.0 /100WBC 12/08/23 14:01 Sodium 136 mmol/L (136-145) 12/08/23 14:01 Potassium 2.7 mmol/L (3.5-5.1) L* 12/08/23 14:01 Chloride 88 mmol/L (98-107) L 12/08/23 14:01 Carbon Dioxide 27 mmol/L (22-29) 12/08/23 14:01 Anion Gap 23.7 (5-19) H 12/08/23 14:01 BUN 22 mg/dL (6-20) H 12/08/23 14:01 Creatinine 2.1 mg/dL (0.5-0.9) H 12/08/23 14:01 GFR Calculation 24.5 mL/min (90-130) L 12/08/23 14:01 Glucose 168 mg/dL (65-115) H 12/08/23 14:01 Calculated Osmolality 289 mOsm/kg (285-295) 12/08/23 14:01 Lactic Acid 3.1 mmol/L (0.5-2.2) H 12/08/23 14:01 Calcium 10.5 mg/dL (8.5-10.5) 12/08/23 14:01 Magnesium 1.8 mg/dL (1.7-2.3) 12/08/23 14:01 Total Bilirubin 0.4 mg/dL (0.15-1.2) 12/08/23 14:01 AST 33 U/L (0-32) H 12/08/23 14:01 ALT 29 U/L (0-33) 12/08/23 14:01 Alkaline Phosphatase 146 U/L (35-105) H 12/08/23 14:01 Total Protein 8.8 g/dL (6.6-8.7) H 12/08/23 14:01 Albumin 4.8 g/dL (3.5-5.2) 12/08/23 14:01 Globulin 4.0 g/dL (1.3-4.6) 12/08/23 14:01 Lipase 32 U/L (13-60) 12/08/23 14:01 Urine Color Yellow (Yellow) 12/08/23 14:54 Urine Appearance Hazy (CLEAR) A 12/08/23 14:54 Urine pH 5 (5-7) 12/08/23 14:54 Ur Specific [place] 1.020 (1.005-1.030) 12/08/23 14:54 Urine Protein 3+ (Negative) H 12/08/23 14:54 Urine Glucose (UA) Trace (Normal) H 12/08/23 14:54 Urine Ketones 1+ (Negative) H 12/08/23 14:54 Urine Blood 3+ (Negative) H 12/08/23 14:54 Urine Nitrate Negative (Negative) 12/08/23 14:54 Urine Bilirubin 1+ (Negative) H 12/08/23 14:54 Urine Urobilinogen Norm mg/dL (Negative) 12/08/23 14:54 Ur Leukocyte Esterase Negative (Negative) 12/08/23 14:54 Urine RBC 5-10 /hpf (0-2) H 12/08/23 14:54 Urine WBC 5-10 /hpf (0-5) H 12/08/23 14:54 Ur Squamous Epith Cells 0-4 /hpf (0-5) H 12/08/23 14:54 Calcium Oxalate Crystal Rare /hpf 12/08/23 14:54 Amorphous Sediment Not Reportable 12/08/23 14:54 Urine Bacteria 2+ /hpf (NONE) H 12/08/23 14:54 Hyaline Casts 5-10 /lpf H 12/08/23 14:54 Coarse Granular Casts 10-15 /lpf H 12/08/23 14:54 Urine Mucus Trace /hpf 12/08/23 14:54 XR interpretation done by ED provider, pending radiology final review Discharge Plan Discharge Patient Disposition: Placed in Observation Clinical Impression: Cyclical vomiting, intractable, Acute hypokalemia, Acute kidney injury Condition: Stable Prescriptions: No Action ferrous fumarate 89 mg (29 mg iron) tablet 89 mg PO DAILY doxycycline hyclate 100 mg capsule 100 mg PO BID 90 Days Qty: 180 5RF red yeast rice 600 mg capsule 600 mg PO DAILY Rx Instructions: give with meal/snack glucosamine HCl 500 mg tablet 500 mg PO DAILY Rx Instructions: administer with a meal multivitamin Tablet 1 tab PO DAILY Cymbalta 60 mg capsule,delayed release(DR/EC) 60 mg PO BID Qty: 60 0RF Cosentyx Pen (2 Pens) 150 mg/mL pen injector 300 mg SUBCUT DIRECTED Qty: 2 4RF Rx Instructions: Start 300 mg SC q week x 5 weeks; then q 4 weeks for maintenance pantoprazole 40 mg tablet,delayed release (DR/EC) 40 mg PO BID amlodipine 10 mg tablet 10 mg PO QAM sennosides [senna] 8.6 mg Tablet 17.2 mg PO BEDTIME Qty: 30 0RF pregabalin 100 mg capsule 100 mg PO BID atorvastatin 40 mg tablet 40 mg PO DAILY lidocaine 5 % adhesive patch,medicated 1 patch topical DAILY metoprolol tartrate 37.5 mg tablet 37.5 mg PO BID aspirin 81 mg tablet,delayed release (DR/EC) 81 mg PO QAM promethazine 25 mg tablet 25 mg PO Q6H PRN (Reason: Nausea) Qty: 10 0RF Referrals: Bucky Rogers MD [Primary Care Provider] - Coding Level of Care Code ED Chucker for 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
[2023-12-08] MEDS: sodium chloride 0.9% 1,000 ML 999 ML IV ×2 (14:01→15:47)
[2023-12-08] MEDS: morphine 4 mg/mL SDV 1 mL IVP (14:04)
[2023-12-08] MEDS: pantoprazole 40 mg SDV IVP ×2 (14:05→19:13)
[2023-12-08 14:06] LABS: Basophils % 0.2 %; Eosinophils # 0.1 10^3/uL (0.0-0.8); Eosinophils % 0.4 %; Lymphocytes # 1.6 10^3/uL (0.8-4.8); Lymphocytes % 9.6 %; Mean Corpuscular HGB Conc 34.6 g/dL (30-55); Mean Corpuscular Hemoglobin 29.6 pg (27-33); Mean Corpuscular Volume 85.4 fl (85-98); Mean Platelet Volume 9.8 fL (7.4-10.4); Monocytes # 1.5 10^3/uL (0.2-0.9); Neutrophils # 13.32 10^3/uL (1.8-7.7); Neutrophils % 80.2 %; Nucleated Red Blood Cells % 0 %; Platelet Count 436 10^3/cmm (157-399); Red Cell Distribution Width 16.5 % (12.1-15.1); White Blood Count 16.61 10^3/uL (3.29-11.43)
[2023-12-08] MEDS: metoprolol tartrate 1 mg/1 mL SDV 5 mL 5 MG IVP (14:06)
[2023-12-08] MEDS: ondansetron 2 mg/ML SDV 2 mL 4 MG IVP (14:06)
--- NOTE | 2023-12-08 14:08 | PC.PHAR ---
pt unable to verify meds- pts denise morales verified medications over the phone
[2023-12-08 14:22] LABS: Alanine Aminotransferase 29 U/L (0-33); Albumin Level 4.8 g/dL (3.5-5.2); Alkaline Phosphatase 146 U/L (35-105); Anion Gap 23.7 (5-19); Aspartate Amino Transferase 33 U/L (0-32); Blood Urea Nitrogen 22 mg/dL (6-20); Calcium 10.5 mg/dL (8.5-10.5); Carbon Dioxide 27 mmol/L (22-29); Chloride 88 mmol/L (98-107); Glomerular Filtration Rate 24.5 mL/min (90-130); Glucose 168 mg/dL (65-115); Lipase 32 U/L (13-60); Osmolality Calculated 289 mOsm/kg (285-295); Sodium 136 mmol/L (136-145); Total Bilirubin 0.4 mg/dL (0.15-1.2); Total Protein 8.8 g/dL (6.6-8.7)
[2023-12-08 14:45] LABS: Lactic Sepsis W/Reflex 3.1 mmol/L (0.5-2.2)
[2023-12-08 14:46] LABS: Creatinine Clr Calc Pharmacy 30.8735; Potassium 2.7 mmol/L (3.5-5.1)
--- NOTE | 2023-12-08 15:09 | ECG_ITS ---
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 Measurements Intervals [place] Rate: 90 P: 47 MI: 143 QRS: 34 QRSD: 96 T: 40 QT: 400 QTc: 490 Interpretive Statements SINUS RHYTHM MODERATE ST DEPRESSION [0.05+ mV ST DEPRESSION] Compared to ECG 08/20/2023 06:19:14 Sinus tachycardia no longer present Short MI interval no longer present ST (T wave) deviation still present Electronically Signed On 12-09-2023 13:22:24 CDT by Harsha Felipe M.D. [id number]
[2023-12-08 15:11] LABS: Magnesium 1.8 mg/dL (1.7-2.3)
[2023-12-08 15:17] LABS: Urine Appearance Hazy (CLEAR); Urine Color Yellow (Yellow); pH Urine 5 (5-7)
[2023-12-08 15:18] LABS: Add Urine Microscopic? YES; Bilirubin Urine 1+ (Negative); Blood Urine 3+ (Negative); Glucose Urine UA Trace (Normal); Ketones Urine 1+ (Negative); Leukocyte Esterase Urine Negative (Negative); Nitrate Urine Negative (Negative); Protein Urine 3+ (Negative); Urobilinogen Urine Norm (Negative)
[2023-12-08 15:19] LABS: Bacteria Urine 2+ /hpf; Squamous Epithelial Cell Urine 0-4 /hpf (0-5)
[2023-12-08 15:20] LABS: Mucus Urine TRACE /hpf
[2023-12-08 15:21] LABS: Add Urine Culture? Yes; Calcium Oxalate Crystals Urine RARE /hpf
[2023-12-08] MEDS: potassium chloride ER 20 mEq Tablet 40 MEQ PO (15:42)
[2023-12-08] MEDS: lidocaine 1% 5 ML in potassium chloride premix 100 ML 52.5 ML IV (15:47)
[2023-12-08 16:21] LABS: Reflex Lactate Order REFLEX LACTIC ORDERD
--- NOTE | 2023-12-08 16:56 | XRR_ITS ---
PROCEDURE INFORMATION: Exam: XR Chest Exam date and time: 12/08/2023 5:04 PM Age: 53 years old Clinical indication: Other: Weakness; Additional info: Vomiting, weakness TECHNIQUE: Imaging protocol: Radiologic exam of the chest. Views: 1 view. COMPARISON: CR XR chest 1V portable [id number] 08/20/2023 11:01 AM FINDINGS: Lungs: Subtle hypodensities along the left lung, which may represent lung nodules versus prominent vasculature en face. Pleural spaces: Unremarkable. No pleural effusion. No pneumothorax. Heart/Mediastinum: Unremarkable. No cardiomegaly. Bones/joints: Unremarkable. XR/XR chest 1V portable [id number] IMPRESSION: Subtle hyperdensities along the left lung, which may represent lung nodules versus prominent vasculature en face.
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
[2023-12-08 17:52] LABS: Lactic Acid level (Lactate) 0.8 mmol/L (0.5-2.2)
[2023-12-08] MEDS: D5-NS 0.45% + KCL 20 mEq 20 MEQ/1,000 ML BAG 100 MEQ IV (19:14)
[2023-12-08] MEDS: sucralfate 1 gm Tablet PO (20:51)
[2023-12-08] MEDS: labetalol 5 mg/mL SDV 20mL 10 MG IVP (20:51)
[2023-12-09] VITALS (9 sets, daily range): BP systolic 121–177; BP diastolic 79–118; PULSE 71–124; RESP 16–20; TEMP 36.4–37.6; O2SAT 92–98
[2023-12-09 02:22] LABS: Basophils % 0.2 %; Eosinophils % 0.1 %; Hematocrit 35.7 % (36-47); Lymphocytes # 1.4 10^3/uL (0.8-4.8); Lymphocytes % 9.9 %; Mean Corpuscular HGB Conc 33.9 g/dL (30-55); Mean Corpuscular Hemoglobin 29.7 pg (27-33); Mean Corpuscular Volume 87.7 fl (85-98); Mean Platelet Volume 10.2 fL (7.4-10.4); Monocytes # 1.3 10^3/uL (0.2-0.9); Monocytes % 9.1 %; Neutrophils # 11.48 10^3/uL (1.8-7.7); Neutrophils % 80.1 %; Nucleated Red Blood Cells % 0 %; Platelet Count 366 10^3/cmm (157-399); Red Blood Count 4.07 10^6/uL (3.85-5.65); Red Cell Distribution Width 17.1 % (12.1-15.1); White Blood Count 14.33 10^3/uL (3.29-11.43)
[2023-12-09 02:32] LABS: Alanine Aminotransferase 23 U/L (0-33); Alkaline Phosphatase 121 U/L (35-105); Anion Gap 17.3 (5-19); Aspartate Amino Transferase 27 U/L (0-32); Blood Urea Nitrogen 20 mg/dL (6-20); Carbon Dioxide 27 mmol/L (22-29); Chloride 94 mmol/L (98-107); Creatinine Clr Calc Pharmacy 43.2229; Globulin 3.2 g/dL (1.3-4.6); Glomerular Filtration Rate 36.1 mL/min (90-130); Glucose 136 mg/dL (65-115); Osmolality Calculated 285 mOsm/kg (285-295); Potassium 3.3 mmol/L (3.5-5.1); Sodium 135 mmol/L (136-145); Total Bilirubin 0.5 mg/dL (0.15-1.2); Total Protein 7.2 g/dL (6.6-8.7)
[2023-12-09 02:33] LABS: Lactic Sepsis W/Reflex 0.9 mmol/L (0.5-2.2)
[2023-12-09] MEDS: D5-NS 0.45% + KCL 20 mEq 20 MEQ/1,000 ML BAG 100 MEQ IV ×2 (05:07→22:31)
[2023-12-09 08:40] LABS: Creatine Phosphokinase 276 U/L (26-192)
[2023-12-09] MEDS: doxycycline 100 mg Tablet PO ×2 (08:55→17:38)
[2023-12-09] MEDS: metoprolol tartrate 25 mg Tablet 37.5 MG PO ×2 (08:55→17:37)
[2023-12-09] MEDS: pregabalin 100 mg Capsule PO ×2 (08:55→17:38)
[2023-12-09] MEDS: duloxetine 60 mg Capsule PO ×2 (08:56→17:38)
--- NOTE | 2023-12-09 10:18 | PC.NURSE ---
US guided IV to left forearm. Referred to vascular access nurse for US guided IV due to poor access. This patient well known to vascular access nurse. Has had multiple PICC lines in the past due to poor access. IV placed without difficulty at this time. Dr. Quinn updated on current access and pt history of vascular access needs in the past.
--- NOTE | 2023-12-09 10:20 | PC.CHAP ---
Pastoral Care Encounter/Spiritual Assessment Type of Contact [] Declined portfolio manager visit [] Patient/Family/Request visit [] Outpatient visit [] Follow-up visit [] Physician referral [] Code/Alert [X] Routine visit [] Staff referral [] Actively dying [] Patient sleeping [] Family support [] [] Out of room [] Palliative care [] [X] Receiving care in room [] Pre-surgical visit [] Trauma [] Long length of stay [] ICU visit [] Other: Relational/Emotional Strength [] Patient feels connected with others/family/visitors/staff [] Distress [] Loneliness/isolation [] Abandonment Spirituality of Patient [] Person of Ceci [] Attends Rastafarian of their Ceci [] Believes in Prayer [] Reads Bible or Bahai materials [] There are Spiritual issues to be addressed Belly Dump Driver Interventions [X] Prayer [] Active listening [] Non-anxious presence [] Spiritual/emotional support [] Crisis/trauma care [] Spiritual counseling [] Bereavement support [] Provided bereavement packet [] Provided Bible/devotional materials [] Provided toy/stuffed animal, coloring book to patient or family member [] Provided Communion [] Anointing/[place] [] Salvation [] Completed spiritual assessment [] Other: Impact on Illness or Injury [] Angry [] Fearful [] Anxious [] Often cries [] Exhaustion [] Unable to work [] Unable to attend advent [] Unable to walk/stand [] Unable to read [] Unable to drive [] Unable to eat/drink [] Unable to sleep [] Unable to be with family [] Patient intubated [] Other: Summary Time spent with patient
[2023-12-09] MEDS: ondansetron 2 mg/ML SDV 2 mL 4 MG IVP (10:27)
[2023-12-09] MEDS: sucralfate 1 gm Tablet PO ×3 (11:23→20:16)
--- NOTE | 2023-12-09 11:25 | P.PN_ITS ---
Subjective 2 Subjective: Patient seen at bedside this morning. States that she has had intense pain overnight at the amputation site. She states that her pain medication that she is receiving takes the edge off of it. overnight has pulled multiple lines. 4th attempt infiltrated this AM. desires midline pt visibly nauseous and has one non-bloody emesis this AM. states she is having mod-sever abd pain. visibly uncomfortable. Vitals/I&O/Wt Last Vital Signs Temp 98.7 F 12/09/23 07:19 Pulse 113 H 12/09/23 07:19 Resp 18 12/09/23 07:19 BP 177/114 12/09/23 07:19 Pulse Ox 96 12/09/23 07:19 O2 Del Method Room Air 12/09/23 07:19 O2 Flow Rate 2 12/08/23 15:58 12/08/23 12/09/23 12/09/23 22:59 06:59 14:59 Intake Total 2585 / 2585 988.333 / 3573.333 Balance 2585 / 2585 988.333 / 3573.333 Weight last 48 hrs Weight 170 lb 12.8 oz Weight 160 lb Weight 160 lb Physical Exam 2 Narrative: General: AOx3, moderate acute distress psych: appropriate mood and affect. anxious. Oropharynx: adentulous. Neck: FROM, no lymphadenopathy, no tracheal deviation, non tender, thyroid gland normal w/o mass. supple Chest: atraumatic, symmetrical CVD: sinus tachycardia, normal S1 and S2, no M/R/G. 2+ pulse x 4 extremities Lungs: clear lung sounds in all miguel, no rhonchi, wheezing, rales. Abdomen: mod-severe epigastric discomfort, ND, soft, NABS. No hepatosplenomegaly, no mass. umbilicus midline w/o herniation Urinary Catheter Management: Abel: Cath Placed During This Visit: yes, but has since been removed by the nurse Reason for Continuing Indwelling Catheter: Decision to DC Catheter Urinary Catheter Date of Insertion: 08/20/23 Urinary Catheter Time of Insertion: 11:30 Date Urinary Catheter Removed: 08/22/23 Time Urinary Catheter Discontinued: 09:45 Data 12/09/23 01:34 12/09/23 01:34 Micro: Microbiology 12/08/23 14:54 Urine Culture - Preliminary Urine,Clean Catch A&P Assessment and plan (1) Enteritis: (2) Cyclical vomiting, intractable: (3) Acute kidney injury: (4) Acute hypokalemia: (5) Esophagitis: (6) Dehydration: Plan 53F with PMH as above, present with persistent nausea, vomiting with CT showing enteritis and distal esophageal thickening c/f esophagitis. GI losses resulting in dehydration, hypokalemia and LEVY Enteritis -multile IV lines infilltrated/pulled. difficult to give fluids. will get midline placement -lactic acid 276 -likely viral -to have colonoscopy and EGD outpatient -IV zofran and sucralfate HAGMA -improving LEVY on CKD -improving. Cr improved from 2.1 to 1.5 (12/09/23) electrolyte derangement -K levels improved from 2.7 to 3.3 (12/09/23). continue IVF with K Plan -will do midline placement -IVF D5NS with added KCL -continue K repleation IV given esophagitis -protonix 40mg iv q12h -sucralfate 1gm po q12h -prn zofran and reglan for symptomatic management -Blood cultures given leukocytosis, may be related to dehydration however given past h/o recurrent bacteremias, will evaluate -hold off abx for now and monitor. appears to be improving -DVT prophylaxis SCD's. hold lovenox given repored rectal bleeding. nicole monitor -FULL CODE Attestations 2 Medical Necessity Statement*: will require 2 overnight stays for enteritis requiring IV treatment Coding Level of Care Code Acute Code for [facility] Fwd Diagnoses Enteritis K52.9 Cyclical vomiting, intractable R11.15 Acute kidney injury N17.9 Acute hypokalemia E87.6 Esophagitis K20.90 Dehydration E86.0
[2023-12-09] MEDS: metoclopramide 5 mg/mL SDV 2 mL IVP (16:06)
[2023-12-09] MEDS: acetaminophen 325 mg Tablet 650 MG PO (16:07)
--- NOTE | 2023-12-09 16:08 | PICC.NOTE ---
Midline placed to left basilic vein. Referred to vascular access nurse for midline placement due to poor access and previous US guided IV infiltration. Risks and benefits discussed and informed consent obtained from patient. Left arm assessed with left basilic vein measuring 6 mm, straight, and apparent best choice for placement. Using sterile technique and MST, left basilic vein accessed x 1 stick. Mid-arm circumference measured 10 cm from left AC 28 cm. Trimmed cath 9 cm with 0 cm external length noted. Line secured with stat-lock. Insertion site covered with Biopatch and TSM. Report given to bedside nurseChristin.
[2023-12-09] MEDS: pantoprazole 40 mg SDV IVP (17:37)
[2023-12-10] VITALS: BP 121/78; PULSE 73; RESP 18; TEMP 36.7; O2SAT 92
[2023-12-10 04:00] VITALS: BP 131/83; PULSE 64; RESP 19; TEMP 36.9; O2SAT 95
[2023-12-10 05:50] LABS: Basophils # 0.1 10^3/uL (0.0-0.1); Basophils % 0.5 %; Eosinophils # 0.1 10^3/uL (0.0-0.8); Hematocrit 33.8 % (36-47); Lymphocytes # 3.1 10^3/uL (0.8-4.8); Lymphocytes % 32.8 %; Mean Corpuscular HGB Conc 33.1 g/dL (30-55); Mean Corpuscular Hemoglobin 30.1 pg (27-33); Mean Corpuscular Volume 90.9 fl (85-98); Mean Platelet Volume 9.4 fL (7.4-10.4); Monocytes # 1.1 10^3/uL (0.2-0.9); Monocytes % 11.2 %; Neutrophils # 5.16 10^3/uL (1.8-7.7); Neutrophils % 54.1 %; Nucleated Red Blood Cells % 0 %; Platelet Count 303 10^3/cmm (157-399); Red Blood Count 3.72 10^6/uL (3.85-5.65); Red Cell Distribution Width 17.2 % (12.1-15.1); White Blood Count 9.55 10^3/uL (3.29-11.43)
[2023-12-10 06:00] VITALS: PULSE 69
[2023-12-10] MEDS: sucralfate 1 gm Tablet PO ×2 (06:02→10:31)
[2023-12-10] MEDS: pantoprazole 40 mg SDV IVP (06:02)
[2023-12-10] MEDS: amlodipine 10 mg Tablet PO (06:02)
[2023-12-10 06:16] LABS: Alanine Aminotransferase 19 U/L (0-33); Albumin Level 3.5 g/dL (3.5-5.2); Alkaline Phosphatase 99 U/L (35-105); Anion Gap 13.8 (5-19); Aspartate Amino Transferase 22 U/L (0-32); Blood Urea Nitrogen 9 mg/dL (6-20); Calcium 8.7 mg/dL (8.5-10.5); Carbon Dioxide 26 mmol/L (22-29); Chloride 99 mmol/L (98-107); Globulin 2.5 g/dL (1.3-4.6); Glucose 104 mg/dL (65-115); Magnesium 1.9 mg/dL (1.7-2.3); Osmolality Calculated 279 mOsm/kg (285-295); Potassium 3.8 mmol/L (3.5-5.1); Sodium 135 mmol/L (136-145); Total Bilirubin 0.4 mg/dL (0.15-1.2)
[2023-12-10 07:43] VITALS: BP 146/98; PULSE 80; RESP 17; O2SAT 91
[2023-12-10] MEDS: metoprolol tartrate 25 mg Tablet 37.5 MG PO (08:20)
[2023-12-10] MEDS: pregabalin 100 mg Capsule PO (08:20)
[2023-12-10] MEDS: doxycycline 100 mg Tablet PO (08:20)
[2023-12-10] MEDS: duloxetine 60 mg Capsule PO (08:20)
[2023-12-10 08:21] LABS: Creatine Phosphokinase 186 U/L (26-192)
[2023-12-10] MEDS: D5-NS 0.45% + KCL 20 mEq 20 MEQ/1,000 ML BAG 100 MEQ IV (08:21)
--- NOTE | 2023-12-10 08:59 | PC.CHAP ---
Pastoral Care Encounter/Spiritual Assessment Type of Contact [] Declined shotgun shell loading machine operator visit [] Patient/Family/Request visit [] Outpatient visit [] Follow-up visit [] Physician referral [] Code/Alert [] Routine visit [] Staff referral [] Actively dying [] Patient sleeping [] Family support [] [] Out of room [] Palliative care [] [x] Receiving care in room [] Pre-surgical visit [] Trauma [] Long length of stay [] ICU visit [] Other: Relational/Emotional Strength [] Patient feels connected with others/family/visitors/staff [] Distress [] Loneliness/isolation [] Abandonment Spirituality of Patient [] Person of Ceci [] Attends Baptism of their Ceci [] Believes in Prayer [] Reads Bible or Catholic materials [] There are Spiritual issues to be addressed Strategic Alliances Manager Interventions [] Prayer [] Active listening [] Non-anxious presence [] Spiritual/emotional support [] Crisis/trauma care [] Spiritual counseling [] Bereavement support [] Provided bereavement packet [] Provided Bible/devotional materials [] Provided toy/stuffed animal, coloring book to patient or family member [] Provided Communion [] Anointing/[place] [] Salvation [] Completed spiritual assessment [] Other: Impact on Illness or Injury [] Angry [] Fearful [] Anxious [] Often cries [] Exhaustion [] Unable to work [] Unable to attend jew [] Unable to walk/stand [] Unable to read [] Unable to drive [] Unable to eat/drink [] Unable to sleep [] Unable to be with family [] Patient intubated [] Other: Summary Time spent with patient
--- NOTE | 2023-12-10 09:29 | P.PN_ITS ---
Subjective 2 Subjective: Patient seen at bedside this morning. States that she has had intense pain overnight at the amputation site. She states that her pain medication that she is receiving takes the edge off of it. overnight has pulled multiple lines. 4th attempt infiltrated this AM. desires midline pt visibly nauseous and has one non-bloody emesis this AM. states she is having mod-sever abd pain. visibly uncomfortable. Vitals/I&O/Wt Last Vital Signs Temp 98.5 F 12/10/23 04:00 Pulse 80 12/10/23 07:43 Resp 17 12/10/23 07:43 BP 146/98 12/10/23 07:43 Pulse Ox 91 12/10/23 07:43 O2 Del Method Room Air 12/10/23 07:43 O2 Flow Rate 2 12/08/23 15:58 12/09/23 12/10/23 12/10/23 22:59 06:59 14:59 Intake Total 2381.667 / 2670.000 600 / 3270.000 983.333 / 983.333 Output Total 200 / 200 Balance 2181.667 / 2470.000 600 / 3070.000 983.333 / 983.333 Weight last 48 hrs Weight 172 lb 11.2 oz Weight 170 lb 12.8 oz Weight 160 lb Weight 160 lb Physical Exam 2 Narrative: General: AOx3, moderate acute distress psych: appropriate mood and affect. anxious. Oropharynx: adentulous. Neck: FROM, no lymphadenopathy, no tracheal deviation, non tender, thyroid gland normal w/o mass. supple Chest: atraumatic, symmetrical CVD: sinus tachycardia, normal S1 and S2, no M/R/G. 2+ pulse x 4 extremities Lungs: clear lung sounds in all miguel, no rhonchi, wheezing, rales. Abdomen: mod-severe epigastric discomfort, ND, soft, NABS. No hepatosplenomegaly, no mass. umbilicus midline w/o herniation Data 12/10/23 05:43 12/10/23 05:43 Micro: Microbiology 12/09/23 20:18 Occult Blood (FIT) - Final Stool 12/09/23 11:50 Blood Culture - Preliminary Blood SPECIMEN COLLECTED 12/09/23 11:40 Blood Culture - Preliminary Blood SPECIMEN COLLECTED 12/08/23 14:54 Urine Culture - Preliminary Urine,Clean Catch A&P Assessment and plan (1) Enteritis: (2) Cyclical vomiting, intractable: (3) Acute kidney injury: (4) Acute hypokalemia: (5) Esophagitis: (6) Dehydration: Plan 53F with PMH as above, present with persistent nausea, vomiting with CT showing enteritis and distal esophageal thickening c/f esophagitis. GI losses resulting in dehydration, hypokalemia and LEVY Enteritis -midline placement -lactic acid 276 -likely viral -to have colonoscopy and EGD outpatient -IV zofran and sucralfate -leukocytosis resolved this AM HAGMA -improving LEVY on CKD -improving. Cr improved from 2.1 to 1.5 (12/08) to 0.9 (12/10/23) -continue fluids electrolyte derangement -K levels improved from 2.7 to 3.3 (12/09/23) to 3.8 (12/09) -will continue KCL for now until tolerating PO intake Plan -will do midline placement -IVF D5NS with added KCL -continue K repleation IV given esophagitis -protonix 40mg iv q12h -sucralfate 1gm po q12h -prn zofran and reglan for symptomatic management -leukocytosis resolved, Bcx still pending as hx of bacteremia -FULL CODE -FOBT negative but complaining of hemoptysis. continue SCD's for now Attestations 2 Medical Necessity Statement*: will require 2 overnight stays for IV treatment for enteritis Coding Level of Care Code Acute Code for g Fwd Diagnoses Enteritis K52.9 Cyclical vomiting, intractable R11.15 Acute kidney injury N17.9 Acute hypokalemia E87.6 Esophagitis K20.90 Dehydration E86.0
[2023-12-10 11:23] VITALS: BP 124/92; PULSE 72; RESP 16; TEMP 36.9; O2SAT 94
--- NOTE | 2023-12-10 13:35 | PM.DCS ---
Discharge Providers Date of Admission: 12/09/23 11:45 Date of Discharge: December 10, 2023 Attending Provider at Admission: Angelina Pedraza MD Attending Provider at Discharge: Jaleel Quinn MD Primary Care Provider: Bucky Rogers MD Diagnoses at Discharge Discharge Diagnosis (1) Enteritis: Status: Acute (2) Cyclical vomiting, intractable: Status: Acute (3) Acute kidney injury: Status: Acute (4) Acute hypokalemia: Status: Acute (5) Esophagitis: Status: Acute (6) Dehydration: Status: Resolved Reason for Visit Reason for Visit: N/V Hospital Course Hospital Course 53yo F with Hx of longstanding history of Cyclical vomiting, 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 CT abdomen showed lower esophageal thickening and enteritis. Hypokalemia, leukocytosis and HAGMa likely from dehydration. Supportive management with IVF, KCL, Zofran and protonix started; however, there was significant issues with attaining vascular access. Pt ripped out 3 IV?s during her first night and 1 IV infiltrated. We then placed a midline so she could attain medication. After 24hrs on medication her hypokalemia resolved, leukocytosis resolved, LEVY resolved, and nausea resolved. Pt tolerated liquid and soft diet w/o difficulty. At time of discharge she felt back to baseline. Pt has scheduled colonoscopy as outpatient Physical Exam Narrative: General: AOx3, moderate acute distress psych: appropriate mood and affect. anxious. Oropharynx: adentulous. Neck: FROM, no lymphadenopathy, no tracheal deviation, non tender, thyroid gland normal w/o mass. supple Chest: atraumatic, symmetrical CVD: sinus tachycardia, normal S1 and S2, no M/R/G. 2+ pulse x 4 extremities Lungs: clear lung sounds in all miguel, no rhonchi, wheezing, rales. Abdomen: mod-severe epigastric discomfort, ND, soft, NABS. No hepatosplenomegaly, no mass. umbilicus midline w/o herniation Urinary Catheter Management: Abel: Cath Placed During This Visit: yes, but has since been removed by the nurse Reason for Continuing Indwelling Catheter: Decision to DC Catheter Urinary Catheter Date of Insertion: 08/20/23 Urinary Catheter Time of Insertion: 11:30 Date Urinary Catheter Removed: 08/22/23 Time Urinary Catheter Discontinued: 09:45 Discharge Data Studies Completed and Pending Completed Studies During Hospitalization Category Date Time Status CT abdomen pelvis wo con [id number] Stat Cat Scan 12/08/23 13:37 Completed XR chest 1V portable [id number] Stat Exams 12/08/23 16:56 Completed Pending at discharge Category Date Time Status Blood Culture Routine Lab 12/09/23 11:50 Results CBC Auto Diff [Complete Blood Count w/Auto] AM LABS Lab 12/11/23 04:00 Ordered CBC Auto Diff [Complete Blood Count w/Auto] AM LABS Lab 12/11/23 04:00 Ordered CBC Auto Diff [Complete Blood Count w/Auto] AM LABS Lab 12/12/23 04:00 Ordered CMP [Comprehensive Metabolic Panel] AM LABS Lab 12/11/23 04:00 Ordered CMP [Comprehensive Metabolic Panel] AM LABS Lab 12/11/23 04:00 Ordered CMP [Comprehensive Metabolic Panel] AM LABS Lab 12/12/23 04:00 Ordered Radiology Impressions Abdomen/Pelvis CT 12/08/23 13:37 IMPRESSION: 1. Distal esophageal wall thickening which can be seen with esophagitis. 2. No evidence of pancreatitis. 3. Prominent mesenteric lymph nodes are noted, along with prominent small loops of bowel, which may indicate enteritis. COMMENTS: Consistent with the [employer]'s Incidental Findings Committee white paper (J Am Marga Radiol 2018): Any incidental renal lesion less than 1 cm or classified as too small to characterize, or any incidental cystic renal lesion characterized as simple-appearing, is likely benign. No follow-up imaging is recommended for these lesions per consensus recommendations based on imaging criteria. Chest X-Ray 12/08/23 16:56 IMPRESSION: Subtle hyperdensities along the left lung, which may represent lung nodules versus prominent vasculature en face. Laboratory Results WBC 9.55 10^3/uL (3.29-11.43) 12/10/23 05:43 RBC 3.72 10^6/uL (3.85-5.65) L 12/10/23 05:43 Hgb 11.20 g/dL (11.27-16.99) L 12/10/23 05:43 Hct 33.8 % (36-47) L 12/10/23 05:43 MCV 90.9 fl (85-98) 12/10/23 05:43 MCH 30.1 pg (27-33) 12/10/23 05:43 MCHC 33.1 g/dL (30-55) 12/10/23 05:43 RDW 17.2 % (12.1-15.1) H 12/10/23 05:43 Plt Count 303 10^3/cmm (157-399) 12/10/23 05:43 MPV 9.4 fL (7.4-10.4) 12/10/23 05:43 Neut % (Auto) 54.1 % 12/10/23 05:43 Lymph % (Auto) 32.8 % 12/10/23 05:43 [place] % (Auto) 11.2 % 12/10/23 05:43 Eos % (Auto) 1.0 % 12/10/23 05:43 Baso % (Auto) 0.5 % 12/10/23 05:43 Neut # (Auto) 5.16 10^3/uL (1.8-7.7) 12/10/23 05:43 Lymph # (Auto) 3.1 10^3/uL (0.8-4.8) 12/10/23 05:43 [place] # (Auto) 1.1 10^3/uL (0.2-0.9) H 12/10/23 05:43 Eos # (Auto) 0.1 10^3/uL (0.0-0.8) 12/10/23 05:43 Baso # (Auto) 0.1 10^3/uL (0.0-0.1) 12/10/23 05:43 Nucleated RBC % (auto) 0 % 12/10/23 05:43 Nucleated RBCs # 0.0 /100WBC 12/10/23 05:43 Sodium 135 mmol/L (136-145) L 12/10/23 05:43 Potassium 3.8 mmol/L (3.5-5.1) 12/10/23 05:43 Chloride 99 mmol/L (98-107) 12/10/23 05:43 Carbon Dioxide 26 mmol/L (22-29) 12/10/23 05:43 Anion Gap 13.8 (5-19) 12/10/23 05:43 BUN 9 mg/dL (6-20) 12/10/23 05:43 Creatinine 0.9 mg/dL (0.5-0.9) 12/10/23 05:43 GFR Calculation 65.0 mL/min (90-130) L 12/10/23 05:43 Glucose 104 mg/dL (65-115) 12/10/23 05:43 Calculated Osmolality 279 mOsm/kg (285-295) L 12/10/23 05:43 Lactic Acid 0.9 mmol/L (0.5-2.2) 12/09/23 01:34 Lactic Acid (Sepsis) 0.8 mmol/L (0.5-2.2) 12/08/23 17:11 Calcium 8.7 mg/dL (8.5-10.5) 12/10/23 05:43 Magnesium 1.9 mg/dL (1.7-2.3) 12/10/23 05:43 Total Bilirubin 0.4 mg/dL (0.15-1.2) 12/10/23 05:43 AST 22 U/L (0-32) 12/10/23 05:43 ALT 19 U/L (0-33) 12/10/23 05:43 Alkaline Phosphatase 99 U/L (35-105) 12/10/23 05:43 Creatine Kinase 186 U/L (26-192) 12/10/23 05:43 CK-MM (CK-3) Cancelled 12/10/23 05:43 CK-MB (CK-2) Cancelled 12/10/23 05:43 CK-BB (CK-1) Cancelled 12/10/23 05:43 Creatine Kinase Interp Cancelled 12/10/23 05:43 Total Protein 6.0 g/dL (6.6-8.7) L 12/10/23 05:43 Albumin 3.5 g/dL (3.5-5.2) 12/10/23 05:43 Globulin 2.5 g/dL (1.3-4.6) 12/10/23 05:43 Lipase 32 U/L (13-60) 12/08/23 14:01 Urine Color Yellow (Yellow) 12/08/23 14:54 Urine Appearance Hazy (CLEAR) A 12/08/23 14:54 Urine pH 5 (5-7) 12/08/23 14:54 Ur Specific [place] 1.020 (1.005-1.030) 12/08/23 14:54 Urine Protein 3+ (Negative) H 12/08/23 14:54 Urine Glucose (UA) Trace (Normal) H 12/08/23 14:54 Urine Ketones 1+ (Negative) H 12/08/23 14:54 Urine Blood 3+ (Negative) H 12/08/23 14:54 Urine Nitrate Negative (Negative) 12/08/23 14:54 Urine Bilirubin 1+ (Negative) H 12/08/23 14:54 Urine Urobilinogen Norm mg/dL (Negative) 12/08/23 14:54 Ur Leukocyte Esterase Negative (Negative) 12/08/23 14:54 Urine RBC 5-10 /hpf (0-2) H 12/08/23 14:54 Urine WBC 5-10 /hpf (0-5) H 12/08/23 14:54 Ur Squamous Epith Cells 0-4 /hpf (0-5) H 12/08/23 14:54 Calcium Oxalate Crystal Rare /hpf 12/08/23 14:54 Amorphous Sediment Not Reportable 12/08/23 14:54 Urine Bacteria 2+ /hpf (NONE) H 12/08/23 14:54 Hyaline Casts 5-10 /lpf H 12/08/23 14:54 Coarse Granular Casts 10-15 /lpf H 12/08/23 14:54 Urine Mucus Trace /hpf 12/08/23 14:54 Vitals Last Vital Signs Temp 98.5 F 12/10/23 11:23 Pulse 72 12/10/23 11:23 Resp 16 12/10/23 11:23 BP 124/92 12/10/23 11:23 Pulse Ox 94 12/10/23 11:23 O2 Del Method Room Air 12/10/23 11:23 O2 Flow Rate 2 12/08/23 15:58 Discharge Plan Discharge Patient Disposition: Home Condition: Stable Prescriptions: New sucralfate 1 gram Tablet 1 g PO BID Qty: 60 0RF Continued ferrous fumarate 89 mg (29 mg iron) tablet 89 mg PO DAILY doxycycline hyclate 100 mg capsule 100 mg PO BID 90 Days Qty: 180 5RF red yeast rice 600 mg capsule 600 mg PO DAILY Rx Instructions: give with meal/snack glucosamine HCl 500 mg tablet 500 mg PO DAILY Rx Instructions: administer with a meal multivitamin Tablet 1 tab PO DAILY Cymbalta 60 mg capsule,delayed release(DR/EC) 60 mg PO BID Qty: 60 0RF Cosentyx Pen (2 Pens) 150 mg/mL pen injector 300 mg SUBCUT DIRECTED Qty: 2 4RF Rx Instructions: Start 300 mg SC q week x 5 weeks; then q 4 weeks for maintenance pantoprazole 40 mg tablet,delayed release (DR/EC) 40 mg PO BID amlodipine 10 mg tablet 10 mg PO QAM sennosides [senna] 8.6 mg Tablet 17.2 mg PO BEDTIME Qty: 30 0RF pregabalin 100 mg capsule 100 mg PO BID atorvastatin 40 mg tablet 40 mg PO DAILY lidocaine 5 % adhesive patch,medicated 1 patch topical DAILY metoprolol tartrate 37.5 mg tablet 37.5 mg PO BID aspirin 81 mg tablet,delayed release (DR/EC) 81 mg PO QAM promethazine 25 mg tablet 25 mg PO Q6H PRN (Reason: Nausea) Qty: 10 0RF Discharge Orders: Discharge Order (Routine); Ordered 12/10/23 Ordered By: Jaleel Quinn Referrals: Bucky Rogers MD [Primary Care Provider] - 12/17/23 1:30 pm Discharge Diet: Advance as tolerated Discharge Activity: Resume usual activity Patient Instructions: Opioid Safety Discharge Attestations Time Spent in Discharge Care*: less than 30 min Status at Discharge: Cognitive status at discharge: cognitively intact, Behavioral status at discharge: cooperative, Quality Metrics Clinical Quality Measures [ No reported AMI, CVA or VTE this stay] Coding Level of Care Code 47276 Diagnoses Enteritis K52.9 Cyclical vomiting, intractable R11.15 Acute kidney injury N17.9 Acute hypokalemia E87.6 Esophagitis K20.90 Dehydration E86.0
--- NOTE | 2023-12-10 13:53 | PC.NURSE ---
D/C pending ride home.
== END 2023-12-10 15:27 | disposition home or self-care (01) | DRG 392 ==
LOC: ER 16:34 → MEDSURG 18:33
PROVIDERS: Admitting Provider Student in an Organized Health Care Education/Training Program; Emergency Provider Physician Assistant; PCP Family Medicine; Visit Provider Family Medicine
DX: K52.9 Noninfective gastroenteritis and colitis, unspecified (principal); N17.9 Acute kidney failure, unspecified; L40.9 Psoriasis, unspecified; E78.5 Hyperlipidemia, unspecified; N18.9 Chronic kidney disease, unspecified; I12.9 Hypertensive chronic kidney disease with stage 1 through stage 4 chronic kidney disease, or unspecified chronic kidney disease; K21.9 Gastro-esophageal reflux disease without esophagitis; M10.9 Gout, unspecified; F41.9 Anxiety disorder, unspecified; F33.41 Major depressive disorder, recurrent, in partial remission; F43.12 Post-traumatic stress disorder, chronic; F12.20 Cannabis dependence, uncomplicated; E86.0 Dehydration; K20.90 Esophagitis, unspecified without bleeding; E87.6 Hypokalemia; F17.210 Nicotine dependence, cigarettes, uncomplicated; Z79.82 Long term (current) use of aspirin; Z89.422 Acquired absence of other left toe(s); Z86.14 Personal history of Methicillin resistant Staphylococcus aureus infection; Z86.19 Personal history of other infectious and parasitic diseases; Z86.73 Personal history of transient ischemic attack (TIA), and cerebral infarction without residual deficits; Z86.010 Personal history of colon polyps
CPT/HCPCS: 36415; 36569; 36573; 51701; 71045; 74176; 80053; 81001; 82274; 82550; 83605; 83690; 83735; 85025; 87040; 87086; 93005; 96365; 96375; 99285; C1751; C9113; G0378; J2270; J2405; J2765; J3480; J3490; J7030

== ENCOUNTER 2023-12-27 12:07 | Emergency (ER) | payer MEDICARE, MEDICAID, SELFPAY ==
[2023-12-27 12:12] VITALS: BP 188/104; PULSE 83; RESP 22; TEMP 37; O2SAT 100
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
[2023-12-27] MEDS: ondansetron 2 mg/ML SDV 2 mL 8 MG IVP (12:31)
[2023-12-27] MEDS: sodium chloride 0.9% 1,000 ML 999 ML IV (12:31)
[2023-12-27] MEDS: diphenhydrAMINE 50 mg/mL SDV 1mL IVP (12:40)
[2023-12-27] MEDS: prochlorperazine 10 mg/2 mL Inj IVP (12:40)
[2023-12-27 12:44] LABS: Basophils % 0.2 %; Hematocrit 42.6 % (36-47); Lymphocytes # 0.7 10^3/uL (0.8-4.8); Lymphocytes % 5.9 %; Mean Corpuscular Hemoglobin 29.5 pg (27-33); Mean Corpuscular Volume 86.8 fl (85-98); Monocytes # 0.3 10^3/uL (0.2-0.9); Monocytes % 2.4 %; Neutrophils # 11.22 10^3/uL (1.8-7.7); Neutrophils % 91.2 %; Nucleated Red Blood Cells % 0 %; Platelet Count 489 10^3/cmm (157-399); Red Blood Count 4.91 10^6/uL (3.85-5.65); Red Cell Distribution Width 16.2 % (12.1-15.1)
[2023-12-27 13:07] LABS: Alanine Aminotransferase 14 U/L (0-33); Albumin Level 4.9 g/dL (3.5-5.2); Alkaline Phosphatase 150 U/L (35-105); Anion Gap 22.5 (5-19); Aspartate Amino Transferase 20 U/L (0-32); Blood Urea Nitrogen 20 mg/dL (6-20); Calcium 10.1 mg/dL (8.5-10.5); Carbon Dioxide 22 mmol/L (22-29); Chloride 96 mmol/L (98-107); Globulin 3.7 g/dL (1.3-4.6); Glomerular Filtration Rate 57.6 mL/min (90-130); Glucose 153 mg/dL (65-115); Lipase 32 U/L (13-60); Osmolality Calculated 290 mOsm/kg (285-295); Potassium 3.5 mmol/L (3.5-5.1); Sodium 137 mmol/L (136-145); Total Bilirubin 0.5 mg/dL (0.15-1.2); Total Protein 8.6 g/dL (6.6-8.7)
[2023-12-27 13:08] LABS: Alcohol Level < 10 mg/dL (0-10); Creatinine Clr Calc Pharmacy 64.8343
[2023-12-27 13:42] VITALS: PULSE 98; O2SAT 100
[2023-12-27 14:00] VITALS: BP 182/103
[2023-12-27] MEDS: LORazepam 2 mg/mL INJ 10 mL MDV 1 MG IV (14:00)
[2023-12-27] MEDS: haloperidol inj 5 mg/mL INJ 1 mL IVP (14:02)
[2023-12-27] MEDS: promethazine 25 mg/mL SDV 1 mL IM (14:03)
[2023-12-27 14:12] LABS: Bilirubin Urine Neg (Negative); Blood Urine Trace (Negative); Glucose Urine UA Norm (Normal); Ketones Urine 2+ (Negative); Leukocyte Esterase Urine Negative (Negative); Nitrate Urine Negative (Negative); Protein Urine 2+ (Negative); Specific Gravity, Urine 1.015 (1.005-1.030); Urine Appearance Clear (CLEAR); Urine Color Yellow (Yellow); Urobilinogen Urine Norm (Negative); pH Urine 5 (5-7)
[2023-12-27 14:14] LABS: Add Urine Culture? No; Fine Granular Casts Urine RARE /lpf; RBC Urine 0-4 /hpf (0-2)
[2023-12-27 14:17] LABS: Amphetamines Screen Urine Negative (Negative); Barbiturates Screen Urine Negative (Negative); Benzodiazepines Screen Urine Negative (Negative); Cocaine Screen Urine Negative (Negative); Opiate Screen Urine Negative (Negative); PCP Screen Urine Negative (Negative); THC Screen Urine Positive (Negative)
[2023-12-27 15:16] VITALS: PULSE 100; O2SAT 98
== END 2023-12-27 15:16 | disposition home or self-care (01) ==
PROVIDERS: Emergency Provider Emergency Medicine; PCP Family Medicine
DX: R11.2 Nausea with vomiting, unspecified (principal); F12.90 Cannabis use, unspecified, uncomplicated; E86.0 Dehydration; Z79.82 Long term (current) use of aspirin; F17.210 Nicotine dependence, cigarettes, uncomplicated; Z86.73 Personal history of transient ischemic attack (TIA), and cerebral infarction without residual deficits; I12.9 Hypertensive chronic kidney disease with stage 1 through stage 4 chronic kidney disease, or unspecified chronic kidney disease; N18.9 Chronic kidney disease, unspecified; E78.5 Hyperlipidemia, unspecified; Z86.19 Personal history of other infectious and parasitic diseases
CPT/HCPCS: 80053; 80306; 80307; 81001; 83690; 85025; 96372; 96374; 96375; 99284; J0780; J1200; J1630; J2060; J2405; J2550; J7030

== ENCOUNTER 2023-12-29 22:23 | Inpatient (IN) | payer MEDICARE, MEDICAID, SELFPAY ==
[2023-12-29 22:25] VITALS: BP 125/105; PULSE 121; RESP 20; TEMP 37.4; O2SAT 96; BMI 26.6
--- NOTE | 2023-12-29 22:32 | W.ED.ABDPA2 ---
Documented by User: LISA Belle 12/29/23 23:41 HPI - Abdominal Pain General: Chief Complaint: Abdominal Pain Stated Complaint: abd pain Time Seen by Provider: 12/29/23 22:27 History of Present Illness: 53-year-old female comes in today for complaints of abdominal pain and nausea and vomiting since Saturday. Patient reports feeling fatigue at this time. Patient was seen 2 days ago and was treated for cyclic vomiting syndrome at that time. Patient denies any recent use of marijuana. Patient did report on Saturday that she had used that day. Patient told us that she had only used 3 weeks ago. At this time patient appears in mild to moderate pain. Patient has some dry heaves. Skin is warm and dry. Patient reports cramping in the hands. PFSH ED PFSH: Medical History Acute kidney injury Hypochloremic alkalosis Cyclical vomiting, intractable Osteomyelitis Hardware complicating wound infection Septic arthritis Postoperative anemia History of cardiovascular stress test (~10/2021) History of Holter monitoring (~12/2021) Baseline sinus rhythm, 50-129 bpm with average 79 bpm, one 4 beat run asymptomatic vtach Dyslipidemia Chronic kidney disease Cellulitis of toe of left foot GERD (gastroesophageal reflux disease) History of migraine Gout Cellulitis Nonunion after arthrodesis Pain in left ankle Pain in left foot Sepsis High anion gap metabolic acidosis Cyclical vomiting Hepatitis B core antibody positive Surface antibody positive, surface antigen negative, HBV DNA and hepatitis b envelope Ag negative = equals past infection. Check LFTs q 3-6 months on biologic therapy. Repeat hepatitis serology if LFTs positive. Risk of reactivation. Primary osteoarthritis of right knee Tendinopathy of right rotator cuff DDD (degenerative disc disease), lumbosacral Cyclical vomiting Alcohol withdrawal Ileus Memory loss CVA (cerebral vascular accident) incidental finding on MR done for hearing loss, located in left cerebellar region on MRI performed early 2021 Elevated troponin GI bleed nsaid induced gastritis Intermittent palpitations Frozen shoulder syndrome Cannabinoid hyperemesis syndrome History of colon polyps tubular adenomas Hypertension Anxiety Plaque psoriasis High risk medication use biologic agent for psoriasis Psoriatic arthritis Major depressive disorder, recurrent, in partial remission Post-traumatic stress disorder, chronic Cannabis dependence, uncomplicated Surgical History History of colonoscopy (~09/2021) History of hysterectomy History of ankle surgery multiple to left ankle History of shoulder surgery History of pelvic surgery History of eye surgery Has metal around eye orbit History of toe surgery multiple to left foot Family History Mother Stroke Psychiatric illness bipolar/depression Cancer Hypertension Hyperlipidemia Heart disease Migraines Father Cancer lung Heart disease Brother Psychiatric illness depression Other CAD (coronary artery disease) Diabetes Lung disease Social History Smoking and tobacco/nicotine status: current some day tobacco/nicotine user cigarettes [ Other cigarette details: Quarter to half pack a day] Alcohol intake: current Substance/Drug Use: current Substance/Drug use frequency: daily Physical Exam Const: COMMON NORMALS: alert HENMT: COMMON NORMALS: normocephalic HEAD & SCALP: normocephalic Neck/C-Spine: COMMON NORMALS: full ROM Resp: COMMON NORMALS: normal respiratory effort Cardio: COMMON NORMALS: regular rate RATE: regular rate Back/Pelvis: COMMON NORMALS: thoracic and lumbar spine normal to inspection Neuro: SENSORIUM/ORIENTATION: Yes alert Skin: COMMON NORMALS: turgor normal GENERAL SKIN EXAM: turgor normal Course Vital Signs: Vital signs: Vital Signs Temperature 99.6 F 12/30/23 04:12 Pulse Rate 90 12/30/23 04:12 Respiratory Rate 19 H 12/30/23 04:12 Blood Pressure 152/93 12/30/23 04:12 Pulse Oximetry 95 12/30/23 04:12 Oxygen Delivery Me thod Room Air 12/30/23 01:17 MDM - Abdominal Pain Medical Decision Making Patient comes in today for nausea and vomiting for 2 to 3 days. Patient was seen 2 days ago in the ER but has had persistent symptoms. Patient had tried oral medications at home but continues to have persistent discomfort and pain. Patient also reports inability to hold fluids down. Patient is also get muscle cramps. Differential diagnosis includes not limited to LEVY, hypokalemia, dehydration, cyclic vomiting syndrome, malingering. CBC noted a white blood cell count of 14,000, CMP noted a anion gap of 23, potassium 2.6, sodium 126, creatinine 2.8. Talked with patient about replacing potassium and fluids and sending her home patient preferred to be admitted to make sure that she was well before going home. We will admit patient for fluid replacement, potassium replacement, and labs monitoring. Dr. Peck agreed to plan of admission. Dr. Mcdonald consulted for orders and agreed with plan. Lab Data 12/29/23 22:58 12/29/23 22:58 Labs/Radiology: Radiology Impressions Abdomen/Pelvis CT 12/29/23 22:34 IMPRESSION: 1. Evidence of small hiatal hernia with wall thickening and/or thickening distal esophageal wall. 2. Stomach appears partly filled with fluid, gas. Gas and fluid of mildly dilated proximal small bowel, duodenum, jejunum. Mild fluid, gas, stool of colon. Mild wall, mucosal thickening portions small bowel, stomach, colon, versus lack distension. Correlate for nonspecific ileus/enteritis. Partial small bowel obstruction not completely excluded. Follow-up suggested. 3. Please see body of report for additional findings. COMMENTS: Consistent with the [employer]'s Incidental Findings Committee white paper (J Am Marga Radiol 2018): Any incidental renal lesion less than 1 cm or classified as too small to characterize, or any incidental cystic renal lesion characterized as simple-appearing, is likely benign. No follow-up imaging is recommended for these lesions per consensus recommendations based on imaging criteria. Laboratory Results WBC 14.21 10^3/uL (3.29-11.43) H 12/29/23 22:58 RBC 4.91 10^6/uL (3.85-5.65) 12/29/23 22:58 Hgb 14.60 g/dL (11.27-16.99) 12/29/23 22:58 Hct 41.0 % (36-47) 12/29/23 22:58 MCV 83.5 fl (85-98) L 12/29/23 22:58 MCH 29.7 pg (27-33) 12/29/23 22:58 MCHC 35.6 g/dL (30-55) 12/29/23 22:58 RDW 15.2 % (12.1-15.1) H 12/29/23 22:58 Plt Count 427 10^3/cmm (157-399) H 12/29/23 22:58 MPV 10.0 fL (7.4-10.4) 12/29/23 22:58 Neut % (Auto) 68.8 % 12/29/23 22:58 Lymph % (Auto) 17.0 % 12/29/23 22:58 Kimble % (Auto) 13.1 % 12/29/23 22:58 Eos % (Auto) 0.5 % 12/29/23 22:58 Baso % (Auto) 0.2 % 12/29/23 22:58 Neut # (Auto) 9.78 10^3/uL (1.8-7.7) H 12/29/23 22:58 Lymph # (Auto) 2.4 10^3/uL (0.8-4.8) 12/29/23 22:58 Kimble # (Auto) 1.9 10^3/uL (0.2-0.9) H 12/29/23 22:58 Eos # (Auto) 0.1 10^3/uL (0.0-0.8) 12/29/23 22:58 Baso # (Auto) 0.0 10^3/uL (0.0-0.1) 12/29/23 22:58 Nucleated RBC % (auto) 0 % 12/29/23 22:58 Nucleated RBCs # 0.0 /100WBC 12/29/23 22:58 Sodium 126 mmol/L (136-145) L 12/29/23 22:58 Potassium 2.6 mmol/L (3.5-5.1) L* 12/29/23 22:58 Chloride 77 mmol/L (98-107) L 12/29/23 22:58 Carbon Dioxide 28 mmol/L (22-29) 12/29/23 22:58 Anion Gap 23.6 (5-19) H 12/29/23 22:58 BUN 31 mg/dL (6-20) H 12/29/23 22:58 Creatinine 2.8 mg/dL (0.5-0.9) H 12/29/23 22:58 GFR Calculation 17.5 mL/min (90-130) L 12/29/23 22:58 Glucose 130 mg/dL (65-115) H 12/29/23 22:58 Calculated Osmolality 270 mOsm/kg (285-295) L 12/29/23 22:58 Calcium 10.0 mg/dL (8.5-10.5) 12/29/23 22:58 Magnesium 1.8 mg/dL (1.7-2.3) 12/29/23 22:58 Total Bilirubin 0.7 mg/dL (0.15-1.2) 12/29/23 22:58 AST 41 U/L (0-32) H 12/29/23 22:58 ALT 22 U/L (0-33) 12/29/23 22:58 Alkaline Phosphatase 138 U/L (35-105) H 12/29/23 22:58 Total Protein 8.9 g/dL (6.6-8.7) H 12/29/23 22:58 Albumin 4.8 g/dL (3.5-5.2) 12/29/23 22:58 Globulin 4.1 g/dL (1.3-4.6) 12/29/23 22:58 XR interpretation done by ED provider, pending radiology final review Discharge Plan Discharge Patient Disposition: Admitted As Inpatient Admit Provider: Tania Peck Clinical Impression: LEVY (acute kidney injury), Hypokalemia Condition: Stable Coding Level of Care Code ED Marketing Performance Analyst for Chg Fwd Documented by User: Bboo Mcdonald DO 12/30/23 04:22 HPI - Abdominal Pain General: Chief Complaint: Abdominal Pain Stated Complaint: abd pain Time Seen by Provider: 12/29/23 22:27 [facility] ED PFSH: Medical History Acute kidney injury Hypochloremic alkalosis Cyclical vomiting, intractable Osteomyelitis Hardware complicating wound infection Septic arthritis Postoperative anemia History of cardiovascular stress test (~10/2021) History of Holter monitoring (~12/2021) Baseline sinus rhythm, 50-129 bpm with average 79 bpm, one 4 beat run asymptomatic vtach Dyslipidemia Chronic kidney disease Cellulitis of toe of left foot GERD (gastroesophageal reflux disease) History of migraine Gout Cellulitis Nonunion after arthrodesis Pain in left ankle Pain in left foot Sepsis High anion gap metabolic acidosis Cyclical vomiting Hepatitis B core antibody positive Surface antibody positive, surface antigen negative, HBV DNA and hepatitis b envelope Ag negative = equals past infection. Check LFTs q 3-6 months on biologic therapy. Repeat hepatitis serology if LFTs positive. Risk of reactivation. Primary osteoarthritis of right knee Tendinopathy of right rotator cuff DDD (degenerative disc disease), lumbosacral Cyclical vomiting Alcohol withdrawal Ileus Memory loss CVA (cerebral vascular accident) incidental finding on MR done for hearing loss, located in left cerebellar region on MRI performed early 2021 Elevated troponin GI bleed nsaid induced gastritis Intermittent palpitations Frozen shoulder syndrome Cannabinoid hyperemesis syndrome History of colon polyps tubular adenomas Hypertension Anxiety Plaque psoriasis High risk medication use biologic agent for psoriasis Psoriatic arthritis Major depressive disorder, recurrent, in partial remission Post-traumatic stress disorder, chronic Cannabis dependence, uncomplicated Surgical History History of colonoscopy (~09/2021) History of hysterectomy History of ankle surgery multiple to left ankle History of shoulder surgery History of pelvic surgery History of eye surgery Has metal around eye orbit History of toe surgery multiple to left foot Family History Mother Stroke Psychiatric illness bipolar/depression Cancer Hypertension Hyperlipidemia Heart disease Migraines Father Cancer lung Heart disease Brother Psychiatric illness depression Other CAD (coronary artery disease) Diabetes Lung disease Social History Smoking and tobacco/nicotine status: current some day tobacco/nicotine user cigarettes [ Other cigarette details: Quarter to half pack a day] Alcohol intake: current Substance/Drug Use: current Substance/Drug use frequency: daily Course Vital Signs: Vital signs: Vital Signs Temperature 99.6 F 12/30/23 04:12 Pulse Rate 90 12/30/23 04:12 Respiratory Rate 19 H 12/30/23 04:12 Blood Pressure 152/93 12/30/23 04:12 Pulse Oximetry 95 12/30/23 04:12 Oxygen Delivery Me thod Room Air 12/30/23 01:17 MDM - Abdominal Pain Medical Decision Making Patient comes in today for nausea and vomiting for 2 to 3 days. Patient was seen 2 days ago in the ER but has had persistent symptoms. Patient had tried oral medications at home but continues to have persistent discomfort and pain. Patient also reports inability to hold fluids down. Patient is also get muscle cramps. Differential diagnosis includes not limited to LEVY, hypokalemia, dehydration, cyclic vomiting syndrome, malingering. CBC noted a white blood cell count of 14,000, CMP noted a anion gap of 23, potassium 2.6, sodium 126, creatinine 2.8. Talked with patient about replacing potassium and fluids and sending her home patient preferred to be admitted to make sure that she was well before going home. We will admit patient for fluid replacement, potassium replacement, and labs monitoring. Dr. Peck agreed to plan of admission. Dr. Mcdonald consulted for orders and agreed with plan. This patient was originally seen by LISA Ray.? I agree with his history, evaluation, and treatment. Lab Data 12/29/23 22:58 12/29/23 22:58 Labs/Radiology: Radiology Impressions Abdomen/Pelvis CT 12/29/23 22:34 IMPRESSION: 1. Evidence of small hiatal hernia with wall thickening and/or thickening distal esophageal wall. 2. Stomach appears partly filled with fluid, gas. Gas and fluid of mildly dilated proximal small bowel, duodenum, jejunum. Mild fluid, gas, stool of colon. Mild wall, mucosal thickening portions small bowel, stomach, colon, versus lack distension. Correlate for nonspecific ileus/enteritis. Partial small bowel obstruction not completely excluded. Follow-up suggested. 3. Please see body of report for additional findings. COMMENTS: Consistent with the [employer]'s Incidental Findings Committee white paper (J Am Marga Radiol 2018): Any incidental renal lesion less than 1 cm or classified as too small to characterize, or any incidental cystic renal lesion characterized as simple-appearing, is likely benign. No follow-up imaging is recommended for these lesions per consensus recommendations based on imaging criteria. Laboratory Results WBC 14.21 10^3/uL (3.29-11.43) H 12/29/23 22:58 RBC 4.91 10^6/uL (3.85-5.65) 12/29/23 22:58 Hgb 14.60 g/dL (11.27-16.99) 12/29/23 22:58 Hct 41.0 % (36-47) 12/29/23 22:58 MCV 83.5 fl (85-98) L 12/29/23 22:58 MCH 29.7 pg (27-33) 12/29/23 22:58 MCHC 35.6 g/dL (30-55) 12/29/23 22:58 RDW 15.2 % (12.1-15.1) H 12/29/23 22:58 Plt Count 427 10^3/cmm (157-399) H 12/29/23 22:58 MPV 10.0 fL (7.4-10.4) 12/29/23 22:58 Neut % (Auto) 68.8 % 12/29/23 22:58 Lymph % (Auto) 17.0 % 12/29/23 22:58 Kimble % (Auto) 13.1 % 12/29/23 22:58 Eos % (Auto) 0.5 % 12/29/23 22:58 Baso % (Auto) 0.2 % 12/29/23 22:58 Neut # (Auto) 9.78 10^3/uL (1.8-7.7) H 12/29/23 22:58 Lymph # (Auto) 2.4 10^3/uL (0.8-4.8) 12/29/23 22:58 Kimble # (Auto) 1.9 10^3/uL (0.2-0.9) H 12/29/23 22:58 Eos # (Auto) 0.1 10^3/uL (0.0-0.8) 12/29/23 22:58 Baso # (Auto) 0.0 10^3/uL (0.0-0.1) 12/29/23 22:58 Nucleated RBC % (auto) 0 % 12/29/23 22:58 Nucleated RBCs # 0.0 /100WBC 12/29/23 22:58 Sodium 126 mmol/L (136-145) L 12/29/23 22:58 Potassium 2.6 mmol/L (3.5-5.1) L* 12/29/23 22:58 Chloride 77 mmol/L (98-107) L 12/29/23 22:58 Carbon Dioxide 28 mmol/L (22-29) 12/29/23 22:58 Anion Gap 23.6 (5-19) H 12/29/23 22:58 BUN 31 mg/dL (6-20) H 12/29/23 22:58 Creatinine 2.8 mg/dL (0.5-0.9) H 12/29/23 22:58 GFR Calculation 17.5 mL/min (90-130) L 12/29/23 22:58 Glucose 130 mg/dL (65-115) H 12/29/23 22:58 Calculated Osmolality 270 mOsm/kg (285-295) L 12/29/23 22:58 Calcium 10.0 mg/dL (8.5-10.5) 12/29/23 22:58 Magnesium 1.8 mg/dL (1.7-2.3) 12/29/23 22:58 Total Bilirubin 0.7 mg/dL (0.15-1.2) 12/29/23 22:58 AST 41 U/L (0-32) H 12/29/23 22:58 ALT 22 U/L (0-33) 12/29/23 22:58 Alkaline Phosphatase 138 U/L (35-105) H 12/29/23 22:58 Total Protein 8.9 g/dL (6.6-8.7) H 12/29/23 22:58 Albumin 4.8 g/dL (3.5-5.2) 12/29/23 22:58 Globulin 4.1 g/dL (1.3-4.6) 12/29/23 22:58 Discharge Plan Discharge Patient Disposition: Admitted As Inpatient Admit Provider: Tania Peck Clinical Impression: LEVY (acute kidney injury), Hypokalemia Condition: Stable Coding Level of Care Code ED Marketing Performance Analyst for 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
--- NOTE | 2023-12-29 22:34 | CTR_ITS ---
PROCEDURE INFORMATION: Exam: CT Abdomen And Pelvis With Contrast Exam date and time: 12/29/2023 11:23 PM Age: 53 years old Clinical indication: Nausea and vomiting; Abdominal pain; Prior surgery; Surgery date: 6+ months; Surgery type: Gb. Hysterectomy. Pelvic fixation. ; Additional info: Abd pain TECHNIQUE: Imaging protocol: Computed tomography of the abdomen and pelvis with contrast. Radiation optimization: All CT scans at this facility use at least one of these dose optimization techniques: automated exposure control; mA and/or kV adjustment per patient size (includes targeted exams where dose is matched to clinical indication); or iterative reconstruction. Contrast material: OMNI 350; Contrast volume: 100 ml; Contrast route: INTRAVENOUS (IV); COMPARISON: CT abdomen pelvis wo con [id number] 12/08/2023 3:28 PM RADIATION DOSE METRICS: Total DLP (mGy-cm): 429.85 FINDINGS: Lungs: Slight probable atelectasis and/or fibrosis posterior lung bases bilaterally. Diaphragm: Evidence of small hiatal hernia with wall thickening and/or thickening distal esophageal wall. Liver: Liver unremarkable. Gallbladder and bile ducts: Clips project gallbladder fossa. No marked bile duct dilatation seen. Pancreas: Pancreas unremarkable. Spleen: Spleen appears small, unremarkable. . Adrenal glands: Fullness adrenals, left greater than right, possibly hyperplasia, similar to 12/08/2023 Kidneys and ureters: Kidneys show evidence of enhancement bilaterally. Stomach and bowel: Stomach appears partly filled with fluid, gas. Gas and fluid of mildly dilated proximal small bowel, duodenum, jejunum. Mild fluid, gas, stool of colon. Mild wall, mucosal thickening portions small bowel, stomach, colon, versus lack distension. Appendix: No acute appendicitis seen. Intraperitoneal space: No free intraperitoneal air and no free abdominal or pelvic fluid collection seen. Vasculature: Atherosclerotic disease. Focal bulge abdominal aorta measured at about 2.2 cm diameter infrarenal. Lymph nodes: Scattered small lymph nodes, nonspecific. Previously indicated mesenteric lymph nodes appear diminished, less prominent currently compared 12/08/2023. Urinary bladder: Urinary bladder appears mostly empty. No calcific stone seen of visualized ureters bilaterally, nor urinary bladder. No dilation seen of visualized portions renal collecting systems, renal pelvis, ureters bilaterally. No marked perinephric stranding seen. 2.7 cm exophytic cyst left kidney. Additional hypodensities of kidneys bilaterally, too small to accurately characterize. Reproductive: Uterus not identified. History provided indicates hysterectomy. Bones/joints: Prior internal fixation pelvis bilaterally. Degenerative changes spine. Soft tissues: Stable appearance anterior abdominal wall midline, paramidline. CT/CT abdomen pelvis w con* [id number] IMPRESSION: 1. Evidence of small hiatal hernia with wall thickening and/or thickening distal esophageal wall. 2. Stomach appears partly filled with fluid, gas. Gas and fluid of mildly dilated proximal small bowel, duodenum, jejunum. Mild fluid, gas, stool of colon. Mild wall, mucosal thickening portions small bowel, stomach, colon, versus lack distension. Correlate for nonspecific ileus/enteritis. Partial small bowel obstruction not completely excluded. Follow-up suggested. 3. Please see body of report for additional findings. COMMENTS: Consistent with the [employer]'s Incidental Findings Committee white paper (J Am Marga Radiol 2018): Any incidental renal lesion less than 1 cm or classified as too small to characterize, or any incidental cystic renal lesion characterized as simple-appearing, is likely benign. No follow-up imaging is recommended for these lesions per consensus recommendations based on imaging criteria.
[2023-12-29 23:02] VITALS: BP 149/109; PULSE 110; RESP 22; O2SAT 92
[2023-12-29] MEDS: ondansetron 2 mg/ML SDV 2 mL 4 MG IVP (23:02)
[2023-12-29] MEDS: pantoprazole 40 mg SDV IVP (23:02)
[2023-12-29] MEDS: midazolam 1 mg/mL INJ 2 mL IVP (23:02)
[2023-12-29 23:03] LABS: Basophils % 0.2 %; Eosinophils # 0.1 10^3/uL (0.0-0.8); Eosinophils % 0.5 %; Lymphocytes # 2.4 10^3/uL (0.8-4.8); Mean Corpuscular HGB Conc 35.6 g/dL (30-55); Mean Corpuscular Hemoglobin 29.7 pg (27-33); Mean Corpuscular Volume 83.5 fl (85-98); Monocytes # 1.9 10^3/uL (0.2-0.9); Monocytes % 13.1 %; Neutrophils # 9.78 10^3/uL (1.8-7.7); Neutrophils % 68.8 %; Nucleated Red Blood Cells % 0 %; Platelet Count 427 10^3/cmm (157-399); Red Blood Count 4.91 10^6/uL (3.85-5.65); Red Cell Distribution Width 15.2 % (12.1-15.1); White Blood Count 14.21 10^3/uL (3.29-11.43)
[2023-12-29 23:21] LABS: Alanine Aminotransferase 22 U/L (0-33); Albumin Level 4.8 g/dL (3.5-5.2); Alkaline Phosphatase 138 U/L (35-105); Anion Gap 23.6 (5-19); Aspartate Amino Transferase 41 U/L (0-32); Blood Urea Nitrogen 31 mg/dL (6-20); Carbon Dioxide 28 mmol/L (22-29); Chloride 77 mmol/L (98-107); Creatinine Clr Calc Pharmacy 23.4802; Globulin 4.1 g/dL (1.3-4.6); Glomerular Filtration Rate 17.5 mL/min (90-130); Glucose 130 mg/dL (65-115); Osmolality Calculated 270 mOsm/kg (285-295); Sodium 126 mmol/L (136-145); Total Bilirubin 0.7 mg/dL (0.15-1.2); Total Protein 8.9 g/dL (6.6-8.7)
[2023-12-29 23:24] LABS: Potassium 2.6 mmol/L (3.5-5.1)
[2023-12-29] MEDS: iohexol 350 mg/mL 500 mL Btl (per mL) IV (23:24)
[2023-12-29] MEDS: lactated ringers 1,000 ML 999 ML IV (23:31)
[2023-12-29 23:32] VITALS: BP 164/118; PULSE 109; RESP 16; O2SAT 96
[2023-12-29 23:43] LABS: Magnesium 1.8 mg/dL (1.7-2.3)
[2023-12-30] VITALS (15 sets, daily range): BP systolic 118–188; BP diastolic 72–122; PULSE 63–94; RESP 16–20; TEMP 36.6–37.7; O2SAT 94–98
[2023-12-30] MEDS: morphine 4 mg/mL SDV 1 mL IVP (00:08)
[2023-12-30 00:12] LABS: Amphetamines Screen Urine Negative (Negative); Barbiturates Screen Urine Negative (Negative); Benzodiazepines Screen Urine Positive (Negative); Cocaine Screen Urine Negative (Negative); Opiate Screen Urine Negative (Negative); PCP Screen Urine Negative (Negative); THC Screen Urine Positive (Negative)
[2023-12-30 00:14] LABS: Add Urine Microscopic? YES; Amorphous Sediment Urine TRACE /hpf; Bacteria Urine 1+ /hpf; Bilirubin Urine 1+ (Negative); Blood Urine 3+ (Negative); Calcium Oxalate Crystals Urine 0-4 /hpf; Fine Granular Casts Urine 0-4 /lpf; Glucose Urine UA Norm (Normal); Hyaline Casts Urine 0-4 /lpf; Ketones Urine 1+ (Negative); Leukocyte Esterase Urine Trace (Negative); Mucus Urine TRACE /hpf; Nitrate Urine Negative (Negative); Protein Urine 3+ (Negative); Specific Gravity, Urine 1.005 (1.005-1.030); Squamous Epithelial Cell Urine 0-4 /hpf (0-5); Urine Appearance Hazy (CLEAR); Urine Color Yellow (Yellow); Urobilinogen Urine 1 mg/dL (Negative); pH Urine 7 (5-7)
[2023-12-30] MEDS: metoprolol tartrate 1 mg/1 mL SDV 5 mL 5 MG IVP (00:22)
[2023-12-30] MEDS: sodium chlor 0.9% + KCl 40 mEq 40 MEQ/1,000 ML BAG 100 MEQ IV (01:24)
[2023-12-30] MEDS: hyDRALAzine 20 mg/mL INJ 1 mL 5 MG IVP (03:17)
[2023-12-30] MEDS: HYDROmorphone 1 mg/mL INJ 1 mL 0.400000000000000022 MG IVP (04:10)
--- NOTE | 2023-12-30 06:21 | P.HP_ITS ---
Providers/Chief Complaint 2 Admitting Physician: Tania Peck MD Primary Care Provider: Bucky Rogers MD Chief Complaint: abd pain History of Present Illness Rachelle Mireles is a 53 year old female who present to the hospital for recurrent nausea vomiting episodes. Patient is stating that she does use marijuana, she is struggling with intractable nausea and vomiting, she is extremely dehydrated endorsing fatigue lethargy and weakness. In the ER she was diagnosed with severe hypokalemia, hyponatremia, acute on chronic kidney disease, hospital service has been requested to admit the patient for severe dehydration and electrolyte imbalance, drug screen positive for benzodiazepines and marijuana. CT abdomen pelvis consistent with enteritis. Review of Systems 2 Const: Denies: fever(s) Eyes: Denies: change in vision ENMT: Denies: throat pain Card: Denies: chest pain Resp: Denies: dyspnea GI: Reports: abdominal pain, nausea and vomiting : Denies: flank pain Medications/Allergies Home Medications Medication Instructions Recorded Confirmed Last Taken Type duloxetine 60 mg capsule,delayed 60 mg PO BID #60 caps 02/15/20 12/30/23 12/26/23 07:00 Rx release (Cymbalta) pantoprazole 40 mg tablet,delayed 40 mg PO BID 09/04/21 12/30/23 12/26/23 07:00 History release aspirin 81 mg tablet,delayed 81 mg PO QPM 04/09/22 12/30/23 12/26/23 07:00 History release promethazine 25 mg tablet 25 mg PO Q6H PRN Nausea #10 tabs 03/28/23 12/30/23 12/29/23 18:00 Rx amlodipine 10 mg tablet 10 mg PO QAM 05/14/23 12/30/23 12/26/23 07:00 History pregabalin 100 mg capsule 100 mg PO BID 05/31/23 12/30/23 12/26/23 07:00 History doxycycline hyclate 100 mg capsule 100 mg PO BID 3 months #180 caps 07/11/23 12/30/23 12/26/23 07:00 Rx ferrous fumarate 89 mg (29 mg 89 mg PO DAILY 07/11/23 12/30/23 12/26/23 History iron) tablet atorvastatin 40 mg tablet 40 mg PO QPM 08/20/23 12/30/23 12/26/23 History lidocaine 5 % topical patch 1 patch topical DAILY PRN Pain 08/20/23 12/30/23 12/05/23 07:00 History metoprolol tartrate 37.5 mg tablet 37.5 mg PO BID 08/20/23 12/30/23 12/26/23 07:00 History secukinumab 150 mg/mL subcutaneous 300 mg (2 mL) SUBCUT DIRECTED 09/30/23 12/30/23 12/04/23 09:00 Rx pen injector (Cosentyx Pen 300 #2 mL mg/2 Pens () glucosamine HCl 500 mg tablet 500 mg PO DAILY 12/03/23 12/30/23 12/26/23 07:00 History multivitamin 1 tab PO DAILY 12/03/23 12/30/23 12/26/23 07:00 History red yeast rice 600 mg capsule 300 mg PO BID 12/03/23 12/30/23 12/26/23 07:00 History ondansetron 8 mg disintegrating 8 mg PO .q6 PRN nausea and 12/27/23 12/30/23 12/05/23 18:00 Rx tablet vomiting #14 tabs sennosides 8.6 mg tablet (senna) 17.2 mg PO BEDTIME PRN Constipation 12/30/23 12/30/23 12/11/23 History Allergies Allergy/AdvReac Type Severity Reaction Status Date / Time clindamycin Allergy Severe Unconscious Verified 12/29/23 22:32 adhesive tape Allergy Intermediate rash, red Verified 12/29/23 22:32 codeine Allergy Unknown ALGY-Anaphy Verified 12/29/23 22:32 laxis paroxetine [From Paxil] Allergy Unconscious Verified 12/29/23 22:32 PFSH Acute 2 PFSH: Medical History Acute kidney injury Hypochloremic alkalosis Cyclical vomiting, intractable Osteomyelitis Hardware complicating wound infection Septic arthritis Postoperative anemia History of cardiovascular stress test (~10/2021) History of Holter monitoring (~12/2021) Baseline sinus rhythm, 50-129 bpm with average 79 bpm, one 4 beat run asymptomatic vtach Dyslipidemia Chronic kidney disease Cellulitis of toe of left foot GERD (gastroesophageal reflux disease) History of migraine Gout Cellulitis Nonunion after arthrodesis Pain in left ankle Pain in left foot Sepsis High anion gap metabolic acidosis Cyclical vomiting Hepatitis B core antibody positive Surface antibody positive, surface antigen negative, HBV DNA and hepatitis b envelope Ag negative = equals past infection. Check LFTs q 3-6 months on biologic therapy. Repeat hepatitis serology if LFTs positive. Risk of reactivation. Primary osteoarthritis of right knee Tendinopathy of right rotator cuff DDD (degenerative disc disease), lumbosacral Cyclical vomiting Alcohol withdrawal Ileus Memory loss CVA (cerebral vascular accident) incidental finding on MR done for hearing loss, located in left cerebellar region on MRI performed early 2021 Elevated troponin GI bleed nsaid induced gastritis Intermittent palpitations Frozen shoulder syndrome Cannabinoid hyperemesis syndrome History of colon polyps tubular adenomas Hypertension Anxiety Plaque psoriasis High risk medication use biologic agent for psoriasis Psoriatic arthritis Major depressive disorder, recurrent, in partial remission Post-traumatic stress disorder, chronic Cannabis dependence, uncomplicated Surgical History (Updated 12/30/23 @ 06:24 by Tania Peck MD) Hx of knee surgery bilateral Hx laparoscopic cholecystectomy History of colonoscopy (~09/2021) History of hysterectomy History of ankle surgery multiple to left ankle History of shoulder surgery History of pelvic surgery History of eye surgery Has metal around eye orbit History of toe surgery multiple to left foot Family History Mother Stroke Psychiatric illness bipolar/depression Cancer Hypertension Hyperlipidemia Heart disease Migraines Father Cancer lung Heart disease Brother Psychiatric illness depression Other CAD (coronary artery disease) Diabetes Lung disease Social History Smoking and tobacco/nicotine status: current some day tobacco/nicotine user cigarettes [ Other cigarette details: Quarter to half pack a day] Alcohol intake: current Substance/Drug Use: current Substance/Drug use frequency: daily Vitals/I&O/Wt Last Vital Signs Temp 99.6 F 12/30/23 04:12 Pulse 90 12/30/23 04:12 Resp 19 H 12/30/23 04:12 BP 152/93 12/30/23 04:12 Pulse Ox 95 12/30/23 04:12 O2 Del Method Room Air 12/30/23 01:17 12/29/23 12/29/23 12/30/23 14:59 22:59 06:59 Intake Total 1041.667 / 1041.667 Balance 1041.667 / 1041.667 Weight last 48 hrs Weight 50.893 kg Weight 68.039 kg Weight 74.843 kg Physical Exam 2 Narrative: Hemodynamically stable Dehydration Appears anxious GCS 15 Nonfocal neuroexam Pleasant cooperative S1, S2 Currently on room air Data 12/29/23 22:58 12/29/23 22:58 A&P Assessment and plan (1) Marijuana abuse: (2) Cannabinoid hyperemesis syndrome: (3) Intermittent palpitations: (4) Hepatitis B core antibody positive: (5) LEVY (acute kidney injury): (6) Dehydration: (7) Hypokalemia: Plan Enteritis Recurrent nausea vomiting Marijuana abuse Monitor for signs of partial SBO CT abdomen pelvis findings consistent with enteritis Start Zosyn I will keep her on IV fluids along with potassium supplementation Severe hypokalemia replenish with IV K rider Check magnesium and phosphorus I will keep patient on brat diet Drug screen reviewed Will keep patient on opioids as well for normal discomfort DVT prophylaxis heparin Acute on chronic kidney disease related dehydration: Anticipating, with IV fluid hydration Full code Attestations 2 Medical Necessity Statement*: Considering enteritis, severe hypokalemia, recurrent nausea vomiting patient will need IV antibiotics, likely more than 2 days in the hospital Diagnoses Marijuana abuse F12.10 Cannabinoid hyperemesis syndrome R11.2; F12.90 Intermittent palpitations R00.2 Hepatitis B core antibody positive R76.8 LEVY (acute kidney injury) N17.9 Dehydration E86.0 Hypokalemia E87.6
[2023-12-30] MEDS: piperacillin-tazobactam 3.375 GM in sodium chloride 0.9% (plus) 50 ML IV (07:20)
[2023-12-30] MEDS: heparin 5,000 unit/mL INJ 1 mL 5000 UNIT SUBCUT ×2 (07:21→18:39)
[2023-12-30] MEDS: metoprolol tartrate 25 mg Tablet 37.5 MG PO ×2 (08:30→18:38)
[2023-12-30] MEDS: pantoprazole 40 mg SDV IVP ×2 (08:30→18:38)
[2023-12-30] MEDS: morphine 4 mg/mL SDV 1 mL 2 MG IVP ×3 (08:31→20:37)
--- NOTE | 2023-12-30 09:14 | PC.CHAP ---
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 [] Patient/Family/Request visit [] Outpatient visit [] Follow-up visit [] Physician referral [] Code/Alert [x] Routine visit [] Staff referral [] Actively dying [] Patient sleeping [] Family support [] [] Out of room [] Palliative care [] [] Receiving care in room [] Pre-surgical visit [] Trauma [] Long length of stay [] ICU visit [] Other: Relational/Emotional Strength [] Patient feels connected with others/family/visitors/staff [] Distress [] Loneliness/isolation [] Abandonment Spirituality of Patient [x] Person of Ceci [] Attends Taoist of their Ceci [x] Believes in Prayer [] Reads Bible or Methodist materials [] There are Spiritual issues to be addressed [employer] Interventions [x] Prayer [x] Active listening [] Non-anxious presence [] Spiritual/emotional support [] Crisis/trauma care [] Spiritual counseling [] Bereavement support [] Provided bereavement packet [] Provided Bible/devotional materials [] Provided toy/stuffed animal, coloring book to patient or family member [] Provided Communion [] Anointing/[place] [] Salvation [x] Completed spiritual assessment [] Other: Impact on Illness or Injury [] Angry [] Fearful [] Anxious [] Often cries [] Exhaustion [] Unable to work [] Unable to attend orthodoxy [] Unable to walk/stand [] Unable to read [] Unable to drive [] Unable to eat/drink [] Unable to sleep [] Unable to be with family [] Patient intubated [] Other: Summary Time spent with patient 5 min
[2023-12-30] MEDS: amoxicillin-clav 875-125 mg Tablet 1 TAB PO (18:38)
[2023-12-30] MEDS: atorvastatin 40 mg Tablet PO (18:38)
[2023-12-31 02:45] VITALS: RESP 18; O2SAT 95
[2023-12-31] MEDS: HYDROmorphone 1 mg/mL INJ 1 mL 0.400000000000000022 MG IVP (02:45)
[2023-12-31 03:43] VITALS: BP 118/77; PULSE 63; RESP 17; TEMP 36.7; O2SAT 97
[2023-12-31] MEDS: amlodipine 10 mg Tablet PO (05:28)
[2023-12-31] MEDS: heparin 5,000 unit/mL INJ 1 mL 5000 UNIT SUBCUT (05:30)
[2023-12-31 05:56] LABS: Basophils # 0.1 10^3/uL (0.0-0.1); Basophils % 0.8 %; Eosinophils # 0.2 10^3/uL (0.0-0.8); Eosinophils % 2.4 %; Hematocrit 40.1 % (36-47); Lymphocytes # 3.5 10^3/uL (0.8-4.8); Lymphocytes % 35.9 %; Mean Corpuscular HGB Conc 33.7 g/dL (30-55); Mean Corpuscular Hemoglobin 29.9 pg (27-33); Mean Corpuscular Volume 88.7 fl (85-98); Mean Platelet Volume 10.2 fL (7.4-10.4); Monocytes % 10.2 %; Neutrophils % 50.3 %; Nucleated Red Blood Cells % 0 %; Platelet Count 407 10^3/cmm (157-399); Red Blood Count 4.52 10^6/uL (3.85-5.65); Red Cell Distribution Width 15.7 % (12.1-15.1); White Blood Count 9.74 10^3/uL (3.29-11.43)
[2023-12-31 06:13] LABS: Anion Gap 15.7 (5-19); Blood Urea Nitrogen 23 mg/dL (6-20); Calcium 9.8 mg/dL (8.5-10.5); Carbon Dioxide 33 mmol/L (22-29); Chloride 87 mmol/L (98-107); Glomerular Filtration Rate 36.1 mL/min (90-130); Glucose 104 mg/dL (65-115); Magnesium 2.2 mg/dL (1.7-2.3); Osmolality Calculated 280 mOsm/kg (285-295); Phosphorus 3.5 mg/dL (2.5-4.5); Sodium 133 mmol/L (136-145)
[2023-12-31 06:16] LABS: Potassium 2.7 mmol/L (3.5-5.1)
[2023-12-31] MEDS: potassium chloride ER 20 mEq Tablet 40 MEQ PO ×2 (06:56→09:15)
--- NOTE | 2023-12-31 07:10 | PM.DCS ---
Discharge Providers Date of Admission: 12/29/23 23:43 Date of Discharge: December 31, 2023 Attending Provider at Admission: Tania Peck MD Attending Provider at Discharge: Tania Peck MD Primary Care Provider: Bucky Rogers MD Diagnoses at Discharge Discharge Diagnosis (1) Marijuana abuse: Status: Acute (2) Cannabinoid hyperemesis syndrome: Status: Acute (3) Intermittent palpitations: Status: Chronic (4) Hepatitis B core antibody positive: Status: Chronic Permanent problem details: Surface antibody positive, surface antigen negative, HBV DNA and hepatitis b envelope Ag negative = equals past infection. Check LFTs q 3-6 months on biologic therapy. Repeat hepatitis serology if LFTs positive. Risk of reactivation. (5) LEVY (acute kidney injury): Status: Acute (6) Dehydration: Status: Acute (7) Hypokalemia: Status: Acute Reason for Visit Reason for Visit: abd pain Hospital Course Hospital Course 53-year female who was admitted for management of severe hypokalemia, acute kidney injury and dehydration. She was diagnosed with enteritis and received Zosyn, she was given IV fluids with potassium supplementation however her IV infiltrated had to change antibiotics to Augmentin and give her p.o. potassium, her creatinine is improving however potassium is still low, she is not experiencing any cardiac arrhythmia QT prolongation or severe muscle weakness. She is willing to go home and stay consistent and compliant with her potassium supplementation along magnesium. Patient is stating that she does use medical marijuana and gets cyclical vomiting. Physical Exam Narrative: Nonfocal neuroexam GCS 15 Signs of dehydration improving currently Hemodynamic stable Pleasant and cooperative Discharge Data Studies Completed and Pending Completed Studies During Hospitalization Category Date Time Status CT abdomen pelvis w con* [id number] Stat Cat Scan 12/29/23 22:34 Completed Radiology Impressions Abdomen/Pelvis CT 12/29/23 22:34 IMPRESSION: 1. Evidence of small hiatal hernia with wall thickening and/or thickening distal esophageal wall. 2. Stomach appears partly filled with fluid, gas. Gas and fluid of mildly dilated proximal small bowel, duodenum, jejunum. Mild fluid, gas, stool of colon. Mild wall, mucosal thickening portions small bowel, stomach, colon, versus lack distension. Correlate for nonspecific ileus/enteritis. Partial small bowel obstruction not completely excluded. Follow-up suggested. 3. Please see body of report for additional findings. COMMENTS: Consistent with the [employer]'s Incidental Findings Committee white paper (J Am Marga Radiol 2018): Any incidental renal lesion less than 1 cm or classified as too small to characterize, or any incidental cystic renal lesion characterized as simple-appearing, is likely benign. No follow-up imaging is recommended for these lesions per consensus recommendations based on imaging criteria. Laboratory Results WBC 9.74 10^3/uL (3.29-11.43) 12/31/23 05:29 RBC 4.52 10^6/uL (3.85-5.65) 12/31/23 05:29 Hgb 13.50 g/dL (11.27-16.99) 12/31/23 05:29 Hct 40.1 % (36-47) 12/31/23 05:29 MCV 88.7 fl (85-98) 12/31/23 05:29 MCH 29.9 pg (27-33) 12/31/23 05:29 MCHC 33.7 g/dL (30-55) 12/31/23 05:29 RDW 15.7 % (12.1-15.1) H 12/31/23 05:29 Plt Count 407 10^3/cmm (157-399) H 12/31/23 05:29 MPV 10.2 fL (7.4-10.4) 12/31/23 05:29 Neut % (Auto) 50.3 % 12/31/23 05:29 Lymph % (Auto) 35.9 % 12/31/23 05:29 [place] % (Auto) 10.2 % 12/31/23 05:29 Eos % (Auto) 2.4 % 12/31/23 05:29 Baso % (Auto) 0.8 % 12/31/23 05:29 Neut # (Auto) 4.90 10^3/uL (1.8-7.7) 12/31/23 05:29 Lymph # (Auto) 3.5 10^3/uL (0.8-4.8) 12/31/23 05:29 [place] # (Auto) 1.0 10^3/uL (0.2-0.9) H 12/31/23 05:29 Eos # (Auto) 0.2 10^3/uL (0.0-0.8) 12/31/23 05:29 Baso # (Auto) 0.1 10^3/uL (0.0-0.1) 12/31/23 05:29 Nucleated RBC % (auto) 0 % 12/31/23 05:29 Nucleated RBCs # 0.0 /100WBC 12/31/23 05:29 Sodium 133 mmol/L (136-145) L 12/31/23 05:29 Potassium 2.7 mmol/L (3.5-5.1) L* 12/31/23 05:29 Chloride 87 mmol/L (98-107) L 12/31/23 05:29 Carbon Dioxide 33 mmol/L (22-29) H 12/31/23 05:29 Anion Gap 15.7 (5-19) 12/31/23 05:29 BUN 23 mg/dL (6-20) H 12/31/23 05:29 Creatinine 1.5 mg/dL (0.5-0.9) H 12/31/23 05:29 GFR Calculation 36.1 mL/min (90-130) L 12/31/23 05:29 Glucose 104 mg/dL (65-115) 12/31/23 05:29 Calculated Osmolality 280 mOsm/kg (285-295) L 12/31/23 05:29 Calcium 9.8 mg/dL (8.5-10.5) 12/31/23 05:29 Phosphorus 3.5 mg/dL (2.5-4.5) 12/31/23 05:29 Magnesium 2.2 mg/dL (1.7-2.3) 12/31/23 05:29 Total Bilirubin 0.7 mg/dL (0.15-1.2) 12/29/23 22:58 AST 41 U/L (0-32) H 12/29/23 22:58 ALT 22 U/L (0-33) 12/29/23 22:58 Alkaline Phosphatase 138 U/L (35-105) H 12/29/23 22:58 Total Protein 8.9 g/dL (6.6-8.7) H 12/29/23 22:58 Albumin 4.8 g/dL (3.5-5.2) 12/29/23 22:58 Globulin 4.1 g/dL (1.3-4.6) 12/29/23 22:58 Urine Color Yellow (Yellow) 12/29/23 23:49 Urine Appearance Hazy (CLEAR) A 12/29/23 23:49 Urine pH 7 (5-7) 12/29/23 23:49 Ur Specific [place] 1.005 (1.005-1.030) 12/29/23 23:49 Urine Protein 3+ (Negative) H 12/29/23 23:49 Urine Glucose (UA) Norm (Normal) 12/29/23 23:49 Urine Ketones 1+ (Negative) H 12/29/23 23:49 Urine Blood 3+ (Negative) H 12/29/23 23:49 Urine Nitrate Negative (Negative) 12/29/23 23:49 Urine Bilirubin 1+ (Negative) H 12/29/23 23:49 Urine Urobilinogen 1 mg/dL (Negative) H 12/29/23 23:49 Ur Leukocyte Esterase Trace (Negative) H 12/29/23 23:49 Urine RBC 5-10 /hpf (0-2) H 12/29/23 23:49 Urine WBC 5-10 /hpf (0-5) H 12/29/23 23:49 Ur Squamous Epith Cells 0-4 /hpf (0-5) H 12/29/23 23:49 Calcium Oxalate Crystal 0-4 /hpf H 12/29/23 23:49 Amorphous Sediment Trace /hpf 12/29/23 23:49 Urine Bacteria 1+ /hpf (NONE) H 12/29/23 23:49 Hyaline Casts 0-4 /lpf H 12/29/23 23:49 Fine Granular Casts 0-4 /lpf H 12/29/23 23:49 Coarse Granular Casts 5-10 /lpf H 12/29/23 23:49 Urine Mucus Trace /hpf 12/29/23 23:49 Urine Opiates Screen Negative ng/mL (Negative) 12/29/23 23:49 Ur Barbiturates Screen Negative ng/mL (Negative) 12/29/23 23:49 Ur Phencyclidine Scrn Negative ng/mL (Negative) 12/29/23 23:49 Ur Amphetamines Screen Negative ng/mL (Negative) 12/29/23 23:49 U Benzodiazepines Scrn Positive ng/mL (Negative) H 12/29/23 23:49 Urine Cocaine Screen Negative ng/mL (Negative) 04/28/24 23:49 U Marijuana (THC) Screen Positive ng/mL (Negative) H 12/29/23 23:49 Vitals Last Vital Signs Temp 98.0 F 12/31/23 03:43 Pulse 63 12/31/23 03:43 Resp 17 12/31/23 03:43 BP 118/77 12/31/23 03:43 Pulse Ox 97 12/31/23 03:43 O2 Del Method Room Air 12/30/23 15:47 Discharge Plan Discharge Patient Disposition: Home Condition: Stable Prescriptions: New potassium chloride [Klor-Con M20] 20 mEq Tablet,Er Particles/Crystals 40 meq PO DAILY Qty: 12 0RF amoxicillin-pot clavulanate 875-125 mg Tablet 1 tab PO BID Qty: 6 0RF magnesium 200 mg tablet 200 mg PO DAILY Qty: 10 0RF Continued ferrous fumarate 89 mg (29 mg iron) tablet 89 mg PO DAILY red yeast rice 600 mg capsule 300 mg PO BID Rx Instructions: give with meal/snack glucosamine HCl 500 mg tablet 500 mg PO DAILY Rx Instructions: administer with a meal multivitamin Tablet 1 tab PO DAILY Cymbalta 60 mg capsule,delayed release(DR/EC) 60 mg PO BID Qty: 60 0RF Cosentyx Pen (2 Pens) 150 mg/mL pen injector 300 mg SUBCUT DIRECTED Qty: 2 4RF Rx Instructions: Start 300 mg SC q week x 5 weeks; then q 4 weeks for maintenance pantoprazole 40 mg tablet,delayed release (DR/EC) 40 mg PO BID amlodipine 10 mg tablet 10 mg PO QAM pregabalin 100 mg capsule 100 mg PO BID atorvastatin 40 mg tablet 40 mg PO QPM lidocaine 5 % adhesive patch,medicated 1 patch topical DAILY PRN (Reason: Pain) metoprolol tartrate 37.5 mg tablet 37.5 mg PO BID senna 8.6 mg tablet 17.2 mg PO BEDTIME PRN (Reason: Constipation) aspirin 81 mg tablet,delayed release (DR/EC) 81 mg PO QPM promethazine 25 mg tablet 25 mg PO Q6H PRN (Reason: Nausea) Qty: 10 0RF ondansetron 8 mg tablet,disintegrating 8 mg PO .q6 PRN (Reason: nausea and vomiting) Qty: 14 0RF Discontinued doxycycline hyclate 100 mg capsule 100 mg PO BID 90 Days Qty: 180 5RF Discharge Orders: Discharge Order (Routine); Ordered 12/31/23 Ordered By: Tania Peck Referrals: Bucky Rogers MD [Primary Care Provider] - 01/02/24 8:30 am Patient Instructions: Opioid Safety Discharge Attestations Time Spent in Discharge Care*: less than 30 min Status at Discharge: Cognitive status at discharge: cognitively intact, Behavioral status at discharge: cooperative, Quality Metrics Clinical Quality Measures [ No reported AMI, CVA or VTE this stay] Coding Level of Care Code Acute Code for Chg Fwd Diagnoses Marijuana abuse F12.10 Cannabinoid hyperemesis syndrome R11.2; F12.90 Intermittent palpitations R00.2 Hepatitis B core antibody positive R76.8 LEVY (acute kidney injury) N17.9 Dehydration E86.0 Hypokalemia E87.6
[2023-12-31 07:50] VITALS: BP 133/90; PULSE 69; RESP 17; TEMP 36.9; O2SAT 95
[2023-12-31 08:51] VITALS: PULSE 80; RESP 16; O2SAT 97
[2023-12-31] MEDS: pantoprazole 40 mg SDV IVP (09:14)
[2023-12-31] MEDS: metoprolol tartrate 25 mg Tablet 37.5 MG PO (09:15)
[2023-12-31] MEDS: amoxicillin-clav 875-125 mg Tablet 1 TAB PO (09:15)
[2023-12-31 10:53] VITALS: PULSE 80; RESP 16; O2SAT 97
== END 2023-12-31 10:55 | disposition home or self-care (01) | DRG 683 ==
LOC: ER 23:37 → MEDSURG 23:51
PROVIDERS: Admitting Provider Internal Medicine; Emergency Provider Nurse Practitioner Family; PCP Family Medicine; Visit Provider Internal Medicine
DX: N17.9 Acute kidney failure, unspecified (principal); E87.1 Hypo-osmolality and hyponatremia; E87.6 Hypokalemia; K52.9 Noninfective gastroenteritis and colitis, unspecified; Z72.0 Tobacco use; R82.5 Elevated urine levels of drugs, medicaments and biological substances; E86.0 Dehydration; F12.10 Cannabis abuse, uncomplicated; Z86.19 Personal history of other infectious and parasitic diseases; K21.9 Gastro-esophageal reflux disease without esophagitis; I12.9 Hypertensive chronic kidney disease with stage 1 through stage 4 chronic kidney disease, or unspecified chronic kidney disease; N18.9 Chronic kidney disease, unspecified
CPT/HCPCS: 36415; 74177; 80048; 80053; 80306; 80307; 81001; 81003; 83690; 83735; 84100; 85025; 96365; 96372; 96374; 96375; 99284; 99285; C9113; J0360; J0780; J1170; J1200; J1630; J1644; J2060; J2250; J2270; J2405; J2543; J2550; J3480; J3490; J7030; J7120; J7121; Q9967

== ENCOUNTER 2024-02-18 09:42 | Day surgery (SDC) | payer MEDICARE, MEDICAID, SELFPAY ==
[2024-02-18 09:59] VITALS: BP 130/104; PULSE 91; RESP 18; TEMP 36.6; O2SAT 97
--- NOTE | 2024-02-18 09:59 | W.PM.OPSFHP ---
Same Day Surgery H&P Indication for Procedure/HPI DATE OF PROCEDURE: February 18, 2024 CHIEF COMPLAINT/INDICATIONFOR SURGICAL PROCEDURE: need for screening colonoscopy PREOP DIAGNOSIS: need for screening colonoscopy PLANNED PROCEDURE: Operation Date: 02/18/24 11:25 Proposed Procedures p Colonoscopy 95805, Z12.11(Not Applicable) - Blair Lanier MD Medications/Allergies* Home Medications Medication Instructions Recorded Confirmed Type pantoprazole 40 mg tablet,delayed 40 mg PO BID 09/04/21 02/18/24 History release aspirin 81 mg tablet,delayed 81 mg PO QPM 04/09/22 02/18/24 History release amlodipine 10 mg tablet 10 mg PO QAM 05/14/23 02/18/24 History pregabalin 100 mg capsule 100 mg PO BID 05/31/23 02/18/24 History ferrous fumarate 89 mg (29 mg 89 mg PO DAILY 07/11/23 02/18/24 History iron) tablet lidocaine 5 % topical patch 1 patch topical DAILY PRN Pain 08/20/23 02/13/24 History metoprolol tartrate 37.5 mg tablet 37.5 mg PO BID 08/20/23 02/18/24 History glucosamine HCl 500 mg tablet 500 mg PO DAILY 12/03/23 02/18/24 History multivitamin 1 tab PO DAILY 12/03/23 02/18/24 History red yeast rice 600 mg capsule 300 mg PO BID 12/03/23 02/13/24 History sennosides 8.6 mg tablet (senna) 17.2 mg PO BEDTIME PRN Constipation 12/30/23 02/13/24 History Allergies/Adverse Reactions Allergy/AdvReac Type Severity Reaction Status Date / Time clindamycin Allergy Severe Unconscious Verified 12/29/23 22:32 adhesive tape Allergy Intermediate rash, red Verified 12/29/23 22:32 codeine Allergy Unknown ALGY-Anaphy Verified 12/29/23 22:32 laxis paroxetine [From Paxil] Allergy Unconscious Verified 12/29/23 22:32 Pertinent History/Comorbid Conditions* Medical History (Updated 01/01/24 @ 00:01 by GENARO Dave) Hypokalemia LEVY (acute kidney injury) Dehydration Cannabinoid hyperemesis syndrome Marijuana abuse Acute kidney injury Hypochloremic alkalosis Cyclical vomiting, intractable Osteomyelitis Hardware complicating wound infection Septic arthritis Postoperative anemia History of cardiovascular stress test (~10/2021) History of Holter monitoring (~12/2021) Baseline sinus rhythm, 50-129 bpm with average 79 bpm, one 4 beat run asymptomatic vtach Dyslipidemia Chronic kidney disease Cellulitis of toe of left foot GERD (gastroesophageal reflux disease) History of migraine Gout Cellulitis Nonunion after arthrodesis Pain in left ankle Pain in left foot Sepsis High anion gap metabolic acidosis Cyclical vomiting Hepatitis B core antibody positive Surface antibody positive, surface antigen negative, HBV DNA and hepatitis b envelope Ag negative = equals past infection. Check LFTs q 3-6 months on biologic therapy. Repeat hepatitis serology if LFTs positive. Risk of reactivation. Primary osteoarthritis of right knee Tendinopathy of right rotator cuff DDD (degenerative disc disease), lumbosacral Cyclical vomiting Alcohol withdrawal Ileus Memory loss CVA (cerebral vascular accident) incidental finding on MR done for hearing loss, located in left cerebellar region on MRI performed early 2021 Elevated troponin GI bleed nsaid induced gastritis Intermittent palpitations Frozen shoulder syndrome Cannabinoid hyperemesis syndrome History of colon polyps tubular adenomas Hypertension Anxiety Plaque psoriasis High risk medication use biologic agent for psoriasis Psoriatic arthritis Major depressive disorder, recurrent, in partial remission Post-traumatic stress disorder, chronic Cannabis dependence, uncomplicated Surgical History (Updated 12/30/23 @ 06:24 by Tania Peck MD) Hx of knee surgery bilateral Hx laparoscopic cholecystectomy History of colonoscopy (~09/2021) History of hysterectomy History of ankle surgery multiple to left ankle History of shoulder surgery History of pelvic surgery History of eye surgery Has metal around eye orbit History of toe surgery multiple to left foot Family History (Updated 05/13/23 @ 13:36 by Trice Escalera MD) Diabetes CAD (coronary artery disease) Heart disease Mother Father Migraines Mother Hyperlipidemia Mother Psychiatric illness Mother bipolar/depression Brother depression Lung disease Cancer Mother Father lung Hypertension Mother Stroke Mother Social History Smoking and tobacco/nicotine status: current some day tobacco/nicotine user cigarettes [ Other cigarette details: Quarter to half pack a day] Alcohol intake: current Substance/Drug Use: current Substance/Drug use frequency: daily Pertinent Exam Findings alert, oriented x 3, clear to auscultation bilaterally and regular rate & rhythm Recommendations Surgery/Procedure today Coding Level of Care Code Acute Code for Chg Fwd
[2024-02-18] MEDS: sodium chloride 0.9% 1,000 ML 30 ML IV (10:05)
--- NOTE | 2024-02-18 10:25 | ANES.PREANE2 ---
Pre-Anesthetic Assessment Height/Weight: Height 1.68 m Temp Pulse Resp BP Pulse Ox O2 Del Method 97.9 F 91 18 130/104 97 Room Air 02/18/24 09:59 02/18/24 09:59 02/18/24 09:59 02/18/24 09:59 02/18/24 09:59 02/18/24 09:59 Preop Diagnosis: need for screening colonoscopy Operation Date: 02/18/24 11:25 Proposed Procedures p Colonoscopy 97463, Z12.11(Not Applicable) - Blair Lanier MD Familial anesthetic complications: None Was Beta Sanjuanita taken within 24 hours: Yes Was Clonidine taken within 24 hours: N/A Last intake: Intake Last Liquid Date 02/17/24 Last Liquid Time 23:30 Last Solid Date 02/16/24 Last Solid Time 18:00 Social Tobacco and No alcohol 0.5, daily marijuana pack(s) per day Exam alert, oriented x 3, clear to auscultation bilaterally and regular rate & rhythm Airway Submandibular: within normal limits Cervical ROM: within normal limits Mallampati: Class III Comments: Comments: Upper dentures History/ROS No significant history except as noted and No significant complaints Pulmonary Chronic Obstructive Pulmonary Disease and Exertional Dyspnea CV/HEM Anemia and Hypertension CONCLUSIONS 1. Normal left ventricular size, systolic function and mildly increased wall thickness, with no diagnostic regional wall motion abnormalities. Left ventricular ejection fraction is estimated at 70 %. Normal diastolic function. 2. Mild-moderate mitral valve regurgitation. 3. When compared to previous echocardiogram dated 05/06/2018, mitral regurgitation seems to have worsened. None reported Hepatic None reported GI Gastroesophageal Reflux Disease (None this morning, controlled with meds) and Peptic Ulcer Disease Metabolic None reported Musc/skel Lower Back Pain Neuropsych Anxiety, Depression and Neuropathy Anesthetic Plan ASA status: 3 Anesthesia: Anesthesia Evaluation, General and MAC Risk of > 500 ml blood loss (7ml/kg in children): No Medications/Allergies Home Medications Medication Instructions Recorded Confirmed Last Taken Type duloxetine 60 mg capsule,delayed 60 mg PO BID #60 caps 02/15/20 02/18/24 02/17/24 Rx release (Cymbalta) pantoprazole 40 mg tablet,delayed 40 mg PO BID 09/04/21 02/18/24 02/17/24 History release aspirin 81 mg tablet,delayed 81 mg PO QPM 04/09/22 02/18/24 02/16/24 History release promethazine 25 mg tablet 25 mg PO Q6H PRN Nausea #10 tabs 03/28/23 02/18/24 12/29/23 18:00 Rx amlodipine 10 mg tablet 10 mg PO QAM 05/14/23 02/18/24 02/18/24 History pregabalin 100 mg capsule 100 mg PO BID 05/31/23 02/18/24 02/06/24 History ferrous fumarate 89 mg (29 mg 89 mg PO DAILY 07/11/23 02/18/24 02/17/24 History iron) tablet lidocaine 5 % topical patch 1 patch topical DAILY PRN Pain 08/20/23 02/13/24 12/05/23 07:00 History metoprolol tartrate 37.5 mg tablet 37.5 mg PO BID 08/20/23 02/18/24 02/18/24 History secukinumab 150 mg/mL subcutaneous 300 mg (2 mL) SUBCUT DIRECTED 09/30/23 02/13/24 02/10/24 Rx pen injector (Cosentyx Pen 300 #2 mL mg/2 Pens () glucosamine HCl 500 mg tablet 500 mg PO DAILY 12/03/23 02/18/24 02/17/24 History multivitamin 1 tab PO DAILY 12/03/23 02/18/24 02/17/24 History red yeast rice 600 mg capsule 300 mg PO BID 12/03/23 02/13/24 02/13/24 History ondansetron 8 mg disintegrating 8 mg PO .q6 PRN nausea and 12/27/23 02/18/24 12/05/23 18:00 Rx tablet vomiting #14 tabs sennosides 8.6 mg tablet (senna) 17.2 mg PO BEDTIME PRN Constipation 12/30/23 02/13/24 12/11/23 History potassium chloride 20 mEq 40 meq (2 x 20 mEq) PO DAILY #12 12/31/23 02/18/24 02/17/24 Rx tablet,extended tabs release(part/cryst) (Klor-Con M) Allergies Allergy/AdvReac Type Severity Reaction Status Date / Time clindamycin Allergy Severe Unconscious Verified 12/29/23 22:32 adhesive tape Allergy Intermediate rash, red Verified 04/28/24 22:32 codeine Allergy Unknown ALGY-Anaphy Verified 12/29/23 22:32 laxis paroxetine [From Paxil] Allergy Unconscious Verified 12/29/23 22:32 Current Medications Generic Name Dose Route Start Last Admin Trade Name Mo PRN Reason Stop Dose Admin Sodium Chloride 1,000 mls @ 30 mls/hr 02/18/24 10:00 02/18/24 10:05 Sodium Chloride 0.9% IV 30 mls/hr .Q24H KATE Administration PFSH Anesthesia Medical History (Updated 01/01/24 @ 00:01 by GENARO Dave) Hypokalemia LEVY (acute kidney injury) Dehydration Cannabinoid hyperemesis syndrome Marijuana abuse Acute kidney injury Hypochloremic alkalosis Cyclical vomiting, intractable Osteomyelitis Hardware complicating wound infection Septic arthritis Postoperative anemia History of cardiovascular stress test (~10/2021) History of Holter monitoring (~12/2021) Baseline sinus rhythm, 50-129 bpm with average 79 bpm, one 4 beat run asymptomatic vtach Dyslipidemia Chronic kidney disease Cellulitis of toe of left foot GERD (gastroesophageal reflux disease) History of migraine Gout Cellulitis Nonunion after arthrodesis Pain in left ankle Pain in left foot Sepsis High anion gap metabolic acidosis Cyclical vomiting Hepatitis B core antibody positive Surface antibody positive, surface antigen negative, HBV DNA and hepatitis b envelope Ag negative = equals past infection. Check LFTs q 3-6 months on biologic therapy. Repeat hepatitis serology if LFTs positive. Risk of reactivation. Primary osteoarthritis of right knee Tendinopathy of right rotator cuff DDD (degenerative disc disease), lumbosacral Cyclical vomiting Alcohol withdrawal Ileus Memory loss CVA (cerebral vascular accident) incidental finding on MR done for hearing loss, located in left cerebellar region on MRI performed early 2021 Elevated troponin GI bleed nsaid induced gastritis Intermittent palpitations Frozen shoulder syndrome Cannabinoid hyperemesis syndrome History of colon polyps tubular adenomas Hypertension Anxiety Plaque psoriasis High risk medication use biologic agent for psoriasis Psoriatic arthritis Major depressive disorder, recurrent, in partial remission Post-traumatic stress disorder, chronic Cannabis dependence, uncomplicated Surgical History (Updated 12/30/23 @ 06:24 by Tania Peck MD) Hx of knee surgery bilateral Hx laparoscopic cholecystectomy History of colonoscopy (~09/2021) History of hysterectomy History of ankle surgery multiple to left ankle History of shoulder surgery History of pelvic surgery History of eye surgery Has metal around eye orbit History of toe surgery multiple to left foot Family History Mother Stroke Psychiatric illness bipolar/depression Cancer Hypertension Hyperlipidemia Heart disease Migraines Father Cancer lung Heart disease Brother Psychiatric illness depression Other CAD (coronary artery disease) Diabetes Lung disease Social History Smoking and tobacco/nicotine status: current some day tobacco/nicotine user cigarettes [ Other cigarette details: Quarter to half pack a day] Alcohol intake: current Substance/Drug Use: current Substance/Drug use frequency: daily Data Anesthesia Cardiac Studies: Echocardiogram 10/30/21 Sestamibi Stress Test (Cardiology) 11/01/21 Cardiac Event Monitor 11/20/21
[2024-02-18 11:25] LABS: Blood Urea Nitrogen 15 mg/dL (6-20); Calcium 9.3 mg/dL (8.5-10.5); Carbon Dioxide 22 mmol/L (22-29); Chloride 105 mmol/L (98-107); Glomerular Filtration Rate 74.2 mL/min (90-130); Glucose 106 mg/dL (65-115); Osmolality Calculated 289 mOsm/kg (285-295); Sodium 139 mmol/L (136-145)
[2024-02-18 11:28] LABS: Anion Gap 16.5 (5-19); Potassium 4.5 mmol/L (3.5-5.1)
[2024-02-18 12:34] VITALS: BP 103/74; PULSE 71; RESP 18; TEMP 36.2; O2SAT 93
[2024-02-18 12:44] VITALS: BP 115/82; PULSE 70; RESP 18; TEMP 36.2; O2SAT 100
--- NOTE | 2024-02-18 12:55 | ANE.PACU2 ---
Inpatient post-anesthesia follow up: Airway intact: Yes Vital signs: Temperature 97.1 F Pulse Rate 70 Respiratory Rate 18 Blood Pressure 115/82 Pulse Oximetry 100 Oxygen Delivery Me thod Room Air Oxygen Flow Rate Fraction of Inspir ed Oxygen Hydration adequate: Yes Nausea and vomiting: No Pain level: 1 Mental status: Baseline
== END 2024-02-18 12:54 | disposition home or self-care (01) ==
PROVIDERS: Anesthesiology; PCP Family Medicine; Visit Provider Surgery
PROC: 0DJD8ZZ Inspection of Lower Intestinal Tract, Via Natural or Artificial Opening Endoscopic (ICD-10-PCS; CPT 45378; principal; 2024-02-18 11:25)
DX: Z12.11 Encounter for screening for malignant neoplasm of colon (principal); K57.30 Diverticulosis of large intestine without perforation or abscess without bleeding; D12.0 Benign neoplasm of cecum; D12.4 Benign neoplasm of descending colon; D12.5 Benign neoplasm of sigmoid colon; D12.3 Benign neoplasm of transverse colon; D12.8 Benign neoplasm of rectum; Z79.82 Long term (current) use of aspirin; E78.5 Hyperlipidemia, unspecified; I12.9 Hypertensive chronic kidney disease with stage 1 through stage 4 chronic kidney disease, or unspecified chronic kidney disease; N18.9 Chronic kidney disease, unspecified; K21.9 Gastro-esophageal reflux disease without esophagitis; Z86.73 Personal history of transient ischemic attack (TIA), and cerebral infarction without residual deficits; F17.210 Nicotine dependence, cigarettes, uncomplicated
CPT/HCPCS: 36415; 45380; 45385; 80048; 88305; J2704; J7030

== ENCOUNTER 2024-02-25 03:47 | Inpatient (IN) | payer MEDICARE, MEDICAID, SELFPAY ==
[2024-02-25] VITALS (15 sets, daily range): BP systolic 124–210; BP diastolic 85–181; PULSE 81–146; RESP 15–25; TEMP 36.6–37.2; O2SAT 90–99; BMI 26.6
--- NOTE | 2024-02-25 03:59 | W.ED.NAVMDI ---
Documented by User: Mainor Rouse DO 02/25/24 05:17 HPI - Nausea/Vomiting/Diarrhea General: Chief complaint: Nausea/Vomiting/Diarrhea Stated complaint: N/V Time Seen by Provider: 02/25/24 03:51 History of Present Illness: Patient presents to the ER by EMS with complaints of nausea and vomiting x 3 days. Patient says she thinks she ate some bad steak. She is only 1 that ate the steak. Only when it has been sick. Patient does states she has a mild abdominal pain is worse when she vomits. Review of Systems General: Reports: 10 or more systems reviewed and unremarkable except in HPI and below PFSH ED PFSH: Medical History Hypokalemia LEVY (acute kidney injury) Dehydration Cannabinoid hyperemesis syndrome Marijuana abuse Acute kidney injury Hypochloremic alkalosis Cyclical vomiting, intractable Osteomyelitis Hardware complicating wound infection Septic arthritis Postoperative anemia History of cardiovascular stress test (~10/2021) History of Holter monitoring (~12/2021) Baseline sinus rhythm, 50-129 bpm with average 79 bpm, one 4 beat run asymptomatic vtach Dyslipidemia Chronic kidney disease Cellulitis of toe of left foot GERD (gastroesophageal reflux disease) History of migraine Gout Cellulitis Nonunion after arthrodesis Pain in left ankle Pain in left foot Sepsis High anion gap metabolic acidosis Cyclical vomiting Hepatitis B core antibody positive Surface antibody positive, surface antigen negative, HBV DNA and hepatitis b envelope Ag negative = equals past infection. Check LFTs q 3-6 months on biologic therapy. Repeat hepatitis serology if LFTs positive. Risk of reactivation. Primary osteoarthritis of right knee Tendinopathy of right rotator cuff DDD (degenerative disc disease), lumbosacral Cyclical vomiting Alcohol withdrawal Ileus Memory loss CVA (cerebral vascular accident) incidental finding on MR done for hearing loss, located in left cerebellar region on MRI performed early 2021 Elevated troponin GI bleed nsaid induced gastritis Intermittent palpitations Frozen shoulder syndrome Cannabinoid hyperemesis syndrome History of colon polyps tubular adenomas Hypertension Anxiety Plaque psoriasis High risk medication use biologic agent for psoriasis Psoriatic arthritis Major depressive disorder, recurrent, in partial remission Post-traumatic stress disorder, chronic Cannabis dependence, uncomplicated Surgical History Hx of knee surgery bilateral Hx laparoscopic cholecystectomy History of colonoscopy (~09/2021) History of hysterectomy History of ankle surgery multiple to left ankle History of shoulder surgery History of pelvic surgery History of eye surgery Has metal around eye orbit History of toe surgery multiple to left foot Family History Mother Stroke Psychiatric illness bipolar/depression Cancer Hypertension Hyperlipidemia Heart disease Migraines Father Cancer lung Heart disease Brother Psychiatric illness depression Other CAD (coronary artery disease) Diabetes Lung disease Social History Smoking and tobacco/nicotine status: current some day tobacco/nicotine user cigarettes [ Other cigarette details: Quarter to half pack a day] Alcohol intake: current Substance/Drug Use: current Substance/Drug use frequency: daily Physical Exam Const: COMMON NORMALS: no acute distress, average body habitus, patient oriented x3, no limitations, healthy appearing, alert and well nourished HENMT: COMMON NORMALS: normocephalic, atraumatic, hearing grossly normal bilaterally, external ears normal, Normal external nose present and moist oral mucous membranes HEAD & SCALP: normocephalic and atraumatic NOSE: Normal external nose present EXTERNAL EAR: Yes external ears normal Neck/C-Spine: COMMON NORMALS: no JVD Chest: COMMONS NORMALS: normal inspection of the chest and normal palpation of entire chest wall Resp: COMMON NORMALS: normal respiratory effort, No retractions, No use of accessory muscles and clear to auscultation bilaterally AUSCULTATION: clear to auscultation bilaterally Cardio: COMMON NORMALS: no JVD, regular rhythm, S1 normal heart sound present, S2 normal heart sound present, No gallops present (Cardio), No clicks present (Cardio), No murmurs present (Cardio) and No rub (Cardio); negative for regular rate (Tachycardic) RATE: abnormal rate (Tachycardic) RHYTHM: regular rhythm HEART SOUNDS: S1 normal heart sound present and S2 normal heart sound present GI: COMMON NORMALS: Normal to inspection, nondistended, normoactive bowel sounds present, Soft to palpation, No hepatosplenomegaly present and no masses; negative for non-tender (Minimally diffusely tender) PALPATION: Yes Soft to palpation and Yes No hepatosplenomegaly present Neuro: COMMON NORMALS: patient oriented x3 SENSORIUM/ORIENTATION: Yes alert Course Vital Signs: Vital signs: Vital Signs Temperature 98.5 F 02/25/24 03:49 Pulse Rate 90 02/25/24 07:54 Respiratory Rate 20 H 02/25/24 08:11 Blood Pressure 181/118 02/25/24 07:54 Pulse Oximetry 90 02/25/24 07:54 Oxygen Delivery Me thod Room Air 02/25/24 04:00 MDM - Nausea/Vomiting/Diarrhea Differential Diagnosis Likely food poisoning, gastroenteritis and dehydration; Unlikely traveler's diarrhea, clostridium difficile infection or drug-induced nausea and vomiting Medical Records I reviewed the patient's medical records. Lab Data I reviewed the patient's lab results. 02/25/24 04:04 02/25/24 04:04 Radiology Impressions Abdomen/Pelvis CT 02/25/24 05:40 IMPRESSION: No acute abnormality detected within the abdomen or pelvis. COMMENTS: Consistent with the [employer]'s Incidental Findings Committee white paper (J Am Marga Radiol 2018): Any incidental renal lesion less than 1 cm or classified as too small to characterize, or any incidental cystic renal lesion characterized as simple-appearing, is likely benign. No follow-up imaging is recommended for these lesions per consensus recommendations based on imaging criteria. Laboratory Results WBC 14.83 10^3/uL (3.29-11.43) H 02/25/24 04:04 RBC 5.06 10^6/uL (3.85-5.65) 02/25/24 04:04 Hgb 15.40 g/dL (11.27-16.99) 02/25/24 04:04 Hct 41.5 % (36-47) 02/25/24 04:04 MCV 82.0 fl (85-98) L 02/25/24 04:04 MCH 30.4 pg (27-33) 02/25/24 04:04 MCHC 37.1 g/dL (30-55) 02/25/24 04:04 RDW 13.2 % (12.1-15.1) 02/25/24 04:04 Plt Count 495 10^3/cmm (157-399) H 02/25/24 04:04 MPV 9.4 fL (7.4-10.4) 02/25/24 04:04 Neut % (Auto) 80.9 % 02/25/24 04:04 Lymph % (Auto) 6.4 % 02/25/24 04:04 [place] % (Auto) 12.1 % 02/25/24 04:04 Eos % (Auto) 0.1 % 02/25/24 04:04 Baso % (Auto) 0.2 % 02/25/24 04:04 Neut # (Auto) 11.99 10^3/uL (1.8-7.7) H 02/25/24 04:04 Lymph # (Auto) 1.0 10^3/uL (0.8-4.8) 02/25/24 04:04 [place] # (Auto) 1.8 10^3/uL (0.2-0.9) H 02/25/24 04:04 Eos # (Auto) 0.0 10^3/uL (0.0-0.8) 02/25/24 04:04 Baso # (Auto) 0.0 10^3/uL (0.0-0.1) 02/25/24 04:04 Nucleated RBC % (auto) 0 % 02/25/24 04:04 Nucleated RBCs # 0.0 /100WBC 02/25/24 04:04 Sodium 123 mmol/L (136-145) L 02/25/24 04:04 Potassium 3.2 mmol/L (3.5-5.1) L 02/25/24 04:04 Chloride 71 mmol/L (98-107) L 02/25/24 04:04 Carbon Dioxide 23 mmol/L (22-29) 02/25/24 04:04 Anion Gap 32.2 (5-19) H 02/25/24 04:04 BUN 46 mg/dL (6-20) H 02/25/24 04:04 Creatinine 3.6 mg/dL (0.5-0.9) H 02/25/24 04:04 GFR Calculation 13.1 mL/min (90-130) L 02/25/24 04:04 Glucose 150 mg/dL (65-115) H 02/25/24 04:04 Calculated Osmolality 271 mOsm/kg (285-295) L 02/25/24 04:04 Lactic Acid 4.3 mmol/L (0.5-2.2) H* 02/25/24 04:04 Calcium 9.8 mg/dL (8.5-10.5) 02/25/24 04:04 Phosphorus 3.0 mg/dL (2.5-4.5) 02/25/24 04:04 Magnesium 1.5 mg/dL (1.7-2.3) L 02/25/24 04:04 Total Bilirubin 0.5 mg/dL (0.15-1.2) 02/25/24 04:04 AST 53 U/L (0-32) H 02/25/24 04:04 ALT 25 U/L (0-33) 02/25/24 04:04 Alkaline Phosphatase 132 U/L (35-105) H 02/25/24 04:04 Total Protein 8.9 g/dL (6.6-8.7) H 02/25/24 04:04 Albumin 4.7 g/dL (3.5-5.2) 02/25/24 04:04 Globulin 4.2 g/dL (1.3-4.6) 02/25/24 04:04 Lipase 21 U/L (13-60) 02/25/24 04:04 Urine Color Yellow (Yellow) 02/25/24 07:24 Urine Appearance Cloudy (CLEAR) A 02/25/24 07:24 Urine pH 5 (5-7) 02/25/24 07:24 Ur Specific [place] 1.015 (1.005-1.030) 02/25/24 07:24 Urine Protein 3+ (Negative) H 02/25/24 07:24 Urine Glucose (UA) Norm (Normal) 02/25/24 07:24 Urine Ketones 1+ (Negative) H 02/25/24 07:24 Urine Blood 3+ (Negative) H 02/25/24 07:24 Urine Nitrate Negative (Negative) 02/25/24 07:24 Urine Bilirubin 2+ (Negative) H 02/25/24 07:24 Urine Urobilinogen Neg mg/dL (Negative) 02/25/24 07:24 Ur Leukocyte Esterase Trace (Negative) H 02/25/24 07:24 Urine RBC 5-10 /hpf (0-2) H 02/25/24 07:24 Urine WBC 5-10 /hpf (0-5) H 02/25/24 07:24 Ur Squamous Epith Cells 15-25 /hpf (0-5) H 02/25/24 07:24 Calcium Oxalate Crystal 5-10 /hpf H 02/25/24 07:24 Amorphous Sediment 1+ /hpf 02/25/24 07:24 Urine Bacteria 3+ /hpf (NONE) H 02/25/24 07:24 Hyaline Casts 0-4 /lpf H 02/25/24 07:24 Coarse Granular Casts 40-55 /lpf H 02/25/24 07:24 Urine Mucus Trace /hpf 02/25/24 07:24 Urine Opiates Screen Positive ng/mL (Negative) H 02/25/24 07:24 Ur Barbiturates Screen Negative ng/mL (Negative) 02/25/24 07:24 Ur Phencyclidine Scrn Negative ng/mL (Negative) 02/25/24 07:24 Ur Amphetamines Screen Negative ng/mL (Negative) 02/25/24 07:24 U Benzodiazepines Scrn Negative ng/mL (Negative) 02/25/24 07:24 Urine Cocaine Screen Negative ng/mL (Negative) 02/25/24 07:24 U Marijuana (THC) Screen Positive ng/mL (Negative) H 02/25/24 07:24 Serum Ketones Negative (Negative) 02/25/24 04:04 All radiology interpretation(s) finalized by discharge Discharge Plan Discharge Patient Disposition: Admitted As Inpatient Clinical Impression: Cyclical vomiting, intractable, Hyponatremia, Acute on chronic renal insufficiency Condition: Stable Coding Level of Care Code ED Finishing Area Operator for Chg Fwd Documented by User: Luna Estrada MD 02/25/24 08:57 HPI - Nausea/Vomiting/Diarrhea General: Chief complaint: Nausea/Vomiting/Diarrhea Stated complaint: N/V Time Seen by Provider: 02/25/24 03:51 PFSH ED PFSH: Medical History Hypokalemia LEVY (acute kidney injury) Dehydration Cannabinoid hyperemesis syndrome Marijuana abuse Acute kidney injury Hypochloremic alkalosis Cyclical vomiting, intractable Osteomyelitis Hardware complicating wound infection Septic arthritis Postoperative anemia History of cardiovascular stress test (~10/2021) History of Holter monitoring (~12/2021) Baseline sinus rhythm, 50-129 bpm with average 79 bpm, one 4 beat run asymptomatic vtach Dyslipidemia Chronic kidney disease Cellulitis of toe of left foot GERD (gastroesophageal reflux disease) History of migraine Gout Cellulitis Nonunion after arthrodesis Pain in left ankle Pain in left foot Sepsis High anion gap metabolic acidosis Cyclical vomiting Hepatitis B core antibody positive Surface antibody positive, surface antigen negative, HBV DNA and hepatitis b envelope Ag negative = equals past infection. Check LFTs q 3-6 months on biologic therapy. Repeat hepatitis serology if LFTs positive. Risk of reactivation. Primary osteoarthritis of right knee Tendinopathy of right rotator cuff DDD (degenerative disc disease), lumbosacral Cyclical vomiting Alcohol withdrawal Ileus Memory loss CVA (cerebral vascular accident) incidental finding on MR done for hearing loss, located in left cerebellar region on MRI performed early 2021 Elevated troponin GI bleed nsaid induced gastritis Intermittent palpitations Frozen shoulder syndrome Cannabinoid hyperemesis syndrome History of colon polyps tubular adenomas Hypertension Anxiety Plaque psoriasis High risk medication use biologic agent for psoriasis Psoriatic arthritis Major depressive disorder, recurrent, in partial remission Post-traumatic stress disorder, chronic Cannabis dependence, uncomplicated Surgical History Hx of knee surgery bilateral Hx laparoscopic cholecystectomy History of colonoscopy (~09/2021) History of hysterectomy History of ankle surgery multiple to left ankle History of shoulder surgery History of pelvic surgery History of eye surgery Has metal around eye orbit History of toe surgery multiple to left foot Family History Mother Stroke Psychiatric illness bipolar/depression Cancer Hypertension Hyperlipidemia Heart disease Migraines Father Cancer lung Heart disease Brother Psychiatric illness depression Other CAD (coronary artery disease) Diabetes Lung disease Social History Smoking and tobacco/nicotine status: current some day tobacco/nicotine user cigarettes [ Other cigarette details: Quarter to half pack a day] Alcohol intake: current Substance/Drug Use: current Substance/Drug use frequency: daily Course Vital Signs: Vital signs: Vital Signs Temperature 98.5 F 02/25/24 03:49 Pulse Rate 90 02/25/24 07:54 Respiratory Rate 20 H 02/25/24 08:11 Blood Pressure 181/118 02/25/24 07:54 Pulse Oximetry 90 02/25/24 07:54 Oxygen Delivery Me thod Room Air 02/25/24 04:00 MDM - Nausea/Vomiting/Diarrhea Medical Decision Making Patient care was transitioned to tx at 6 AM this morning. She was pending lab work, UA and a CT read. Lab Review: Laboratory results were reviewed and interpreted by myself the emergency room physician. Patient has some leukocytosis. Hemoglobin stable at 15.4. She has some acute on chronic renal insufficiency with a BUN of 46 and creatinine of 3.6. Apparently when she has these episodes she goes into renal failure. Her sodium is low at 123. CT of the abdomen pelvis without contrast: No acute process was seen. This was reviewed and interpreted by myself the emergency room physician. I also reviewed the radiology report. I reviewed the patient's medical record. Reexamination: Patient has continued to dry heave/gag and cough. She has received multiple medications and tells me that the only thing that ever really helps her get better is Demerol. She has no focal motor deficits. No increased work of breathing. Heart rate has come down with fluids. Consultation: I spoke with the hospitalist on-call, Dr. Peck who accepts the patient for admission. Assessment and plan: Cyclic vomiting Acute on chronic renal insufficiency Hyponatremia Urinary tract infection -Patient has received for vomiting and abdominal pain 1. 4 mg IV Zofran 2. Phenergan 25 mg IM 3. 10 mg Compazine, 50 mg Benadryl IV. 4. 1 mg IV Dilaudid. 5. 10 mg IV Haldol 6. 2 mg IV Dilaudid 8 mg IV Zofran ?Patient has received 2 L normal saline bolus ? Patient was given IV Rocephin for possible urinary tract infection -I discussed the patient with the hospitalist on-call who is admitting the patient. - Discussed findings and plan with patient. Answered any questions. - All laboratory values were reviewed and interpreted personally by myself, the ER physician - All imaging was reviewed and interpreted personally by myself, the ER physician. - Evaluation and treatment of this problem were appropriate in the emergency setting Lab Data 02/25/24 04:04 02/25/24 04:04 Radiology Impressions Abdomen/Pelvis CT 02/25/24 05:40 IMPRESSION: No acute abnormality detected within the abdomen or pelvis. COMMENTS: Consistent with the [place] [employer]'s Incidental Findings Committee white paper (J Am Marga Radiol 2018): Any incidental renal lesion less than 1 cm or classified as too small to characterize, or any incidental cystic renal lesion characterized as simple-appearing, is likely benign. No follow-up imaging is recommended for these lesions per consensus recommendations based on imaging criteria. Laboratory Results WBC 14.83 10^3/uL (3.29-11.43) H 02/25/24 04:04 RBC 5.06 10^6/uL (3.85-5.65) 02/25/24 04:04 Hgb 15.40 g/dL (11.27-16.99) 02/25/24 04:04 Hct 41.5 % (36-47) 02/25/24 04:04 MCV 82.0 fl (85-98) L 02/25/24 04:04 MCH 30.4 pg (27-33) 02/25/24 04:04 MCHC 37.1 g/dL (30-55) 02/25/24 04:04 RDW 13.2 % (12.1-15.1) 02/25/24 04:04 Plt Count 495 10^3/cmm (157-399) H 02/25/24 04:04 MPV 9.4 fL (7.4-10.4) 02/25/24 04:04 Neut % (Auto) 80.9 % 02/25/24 04:04 Lymph % (Auto) 6.4 % 02/25/24 04:04 [place] % (Auto) 12.1 % 02/25/24 04:04 Eos % (Auto) 0.1 % 02/25/24 04:04 Baso % (Auto) 0.2 % 02/25/24 04:04 Neut # (Auto) 11.99 10^3/uL (1.8-7.7) H 02/25/24 04:04 Lymph # (Auto) 1.0 10^3/uL (0.8-4.8) 02/25/24 04:04 [place] # (Auto) 1.8 10^3/uL (0.2-0.9) H 02/25/24 04:04 Eos # (Auto) 0.0 10^3/uL (0.0-0.8) 02/25/24 04:04 Baso # (Auto) 0.0 10^3/uL (0.0-0.1) 02/25/24 04:04 Nucleated RBC % (auto) 0 % 02/25/24 04:04 Nucleated RBCs # 0.0 /100WBC 02/25/24 04:04 Sodium 123 mmol/L (136-145) L 02/25/24 04:04 Potassium 3.2 mmol/L (3.5-5.1) L 02/25/24 04:04 Chloride 71 mmol/L (98-107) L 02/25/24 04:04 Carbon Dioxide 23 mmol/L (22-29) 02/25/24 04:04 Anion Gap 32.2 (5-19) H 02/25/24 04:04 BUN 46 mg/dL (6-20) H 02/25/24 04:04 Creatinine 3.6 mg/dL (0.5-0.9) H 02/25/24 04:04 GFR Calculation 13.1 mL/min (90-130) L 02/25/24 04:04 Glucose 150 mg/dL (65-115) H 02/25/24 04:04 Calculated Osmolality 271 mOsm/kg (285-295) L 02/25/24 04:04 Lactic Acid 4.3 mmol/L (0.5-2.2) H* 02/25/24 04:04 Calcium 9.8 mg/dL (8.5-10.5) 02/25/24 04:04 Phosphorus 3.0 mg/dL (2.5-4.5) 02/25/24 04:04 Magnesium 1.5 mg/dL (1.7-2.3) L 02/25/24 04:04 Total Bilirubin 0.5 mg/dL (0.15-1.2) 02/25/24 04:04 AST 53 U/L (0-32) H 02/25/24 04:04 ALT 25 U/L (0-33) 02/25/24 04:04 Alkaline Phosphatase 132 U/L (35-105) H 02/25/24 04:04 Total Protein 8.9 g/dL (6.6-8.7) H 02/25/24 04:04 Albumin 4.7 g/dL (3.5-5.2) 02/25/24 04:04 Globulin 4.2 g/dL (1.3-4.6) 02/25/24 04:04 Lipase 21 U/L (13-60) 02/25/24 04:04 Urine Color Yellow (Yellow) 02/25/24 07:24 Urine Appearance Cloudy (CLEAR) A 02/25/24 07:24 Urine pH 5 (5-7) 02/25/24 07:24 Ur Specific [place] 1.015 (1.005-1.030) 02/25/24 07:24 Urine Protein 3+ (Negative) H 02/25/24 07:24 Urine Glucose (UA) Norm (Normal) 02/25/24 07:24 Urine Ketones 1+ (Negative) H 02/25/24 07:24 Urine Blood 3+ (Negative) H 02/25/24 07:24 Urine Nitrate Negative (Negative) 02/25/24 07:24 Urine Bilirubin 2+ (Negative) H 02/25/24 07:24 Urine Urobilinogen Neg mg/dL (Negative) 02/25/24 07:24 Ur Leukocyte Esterase Trace (Negative) H 02/25/24 07:24 Urine RBC 5-10 /hpf (0-2) H 02/25/24 07:24 Urine WBC 5-10 /hpf (0-5) H 02/25/24 07:24 Ur Squamous Epith Cells 15-25 /hpf (0-5) H 02/25/24 07:24 Calcium Oxalate Crystal 5-10 /hpf H 02/25/24 07:24 Amorphous Sediment 1+ /hpf 02/25/24 07:24 Urine Bacteria 3+ /hpf (NONE) H 02/25/24 07:24 Hyaline Casts 0-4 /lpf H 02/25/24 07:24 Coarse Granular Casts 40-55 /lpf H 02/25/24 07:24 Urine Mucus Trace /hpf 02/25/24 07:24 Urine Opiates Screen Positive ng/mL (Negative) H 02/25/24 07:24 Ur Barbiturates Screen Negative ng/mL (Negative) 02/25/24 07:24 Ur Phencyclidine Scrn Negative ng/mL (Negative) 02/25/24 07:24 Ur Amphetamines Screen Negative ng/mL (Negative) 02/25/24 07:24 U Benzodiazepines Scrn Negative ng/mL (Negative) 02/25/24 07:24 Urine Cocaine Screen Negative ng/mL (Negative) 02/25/24 07:24 U Marijuana (THC) Screen Positive ng/mL (Negative) H 02/25/24 07:24 Serum Ketones Negative (Negative) 02/25/24 04:04 Discharge Plan Discharge Patient Disposition: Admitted As Inpatient Clinical Impression: Cyclical vomiting, intractable, Hyponatremia, Acute on chronic renal insufficiency Condition: Stable Coding Level of Care Code ED Finishing Area Operator for 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
[2024-02-25] MEDS: ondansetron 2 mg/ML SDV 2 mL 4 MG IVP ×2 (04:03→20:35)
[2024-02-25] MEDS: sodium chloride 0.9% 1,000 ML 999 ML IV (04:04)
[2024-02-25 04:10] LABS: Basophils % 0.2 %; Eosinophils % 0.1 %; Hematocrit 41.5 % (36-47); Lymphocytes % 6.4 %; Mean Corpuscular HGB Conc 37.1 g/dL (30-55); Mean Corpuscular Hemoglobin 30.4 pg (27-33); Mean Platelet Volume 9.4 fL (7.4-10.4); Monocytes # 1.8 10^3/uL (0.2-0.9); Monocytes % 12.1 %; Neutrophils # 11.99 10^3/uL (1.8-7.7); Neutrophils % 80.9 %; Nucleated Red Blood Cells % 0 %; Platelet Count 495 10^3/cmm (157-399); Red Blood Count 5.06 10^6/uL (3.85-5.65); Red Cell Distribution Width 13.2 % (12.1-15.1); White Blood Count 14.83 10^3/uL (3.29-11.43)
[2024-02-25] MEDS: promethazine 25 mg/mL SDV 1 mL IM (04:26)
[2024-02-25] MEDS: ketorolac 30 mg/mL INJ 15 MG IVP (04:26)
[2024-02-25 04:32] LABS: Alanine Aminotransferase 25 U/L (0-33); Albumin Level 4.7 g/dL (3.5-5.2); Alkaline Phosphatase 132 U/L (35-105); Anion Gap 32.2 (5-19); Aspartate Amino Transferase 53 U/L (0-32); Blood Urea Nitrogen 46 mg/dL (6-20); Calcium 9.8 mg/dL (8.5-10.5); Carbon Dioxide 23 mmol/L (22-29); Chloride 71 mmol/L (98-107); Globulin 4.2 g/dL (1.3-4.6); Glomerular Filtration Rate 13.1 mL/min (90-130); Glucose 150 mg/dL (65-115); Lipase 21 U/L (13-60); Magnesium 1.5 mg/dL (1.7-2.3); Osmolality Calculated 271 mOsm/kg (285-295); Potassium 3.2 mmol/L (3.5-5.1); Sodium 123 mmol/L (136-145); Total Bilirubin 0.5 mg/dL (0.15-1.2); Total Protein 8.9 g/dL (6.6-8.7)
[2024-02-25 05:27] LABS: Ketone (Acetest) Serum Negative (Negative)
[2024-02-25 05:38] LABS: Lactic Sepsis W/Reflex 4.3 mmol/L (0.5-2.2)
--- NOTE | 2024-02-25 05:40 | CTR_ITS ---
PROCEDURE INFORMATION: Exam: CT Abdomen And Pelvis Without Contrast Exam date and time: 02/25/2024 5:58 AM Age: 54 years old Clinical indication: Nausea and vomiting; abdominal pain. Renal failure (acute versus chronic not reported) Prior surgery; Surgery date: 6+ months; Surgery type: Hyst, gb, pelvic TECHNIQUE: Imaging protocol: Computed tomography of the abdomen and pelvis without contrast. Radiation optimization: All CT scans at this facility use at least one of these dose optimization techniques: automated exposure control; mA and/or kV adjustment per patient size (includes targeted exams where dose is matched to clinical indication); or iterative reconstruction. COMPARISON: CT abdomen pelvis w con* [id number] 12/29/2023 11:23 PM RADIATION DOSE METRICS: Total DLP (mGy-cm): 409.5 FINDINGS: Liver: No acute abnormality or suspicious hepatic mass. Gallbladder and biliary ducts: Status post cholecystectomy. No significant biliary duct dilation. Pancreas: No acute abnormality or obvious pancreatic duct dilation. Spleen: Normal size; no suspicious masses. Adrenal glands: Irow-fnuatbl-ignm-right adrenal enlargement compatible with hyperplasia, similar to prior exams. Kidneys and ureters: A few simple renal cysts are present, the largest measuring 2.7 cm projecting off the lateral cortex of left kidney. No hydronephrosis involving either kidney. No obvious urinary tract calculus. Stomach and bowel: No evidence of gastric outlet obstruction or bowel obstruction. Appendix: No evidence of appendicitis. Intraperitoneal space: Anterior intraperitoneal fat near the umbilicus shows minimal stranding, unchanged from prior exams. Approximately 4.8 cm above the umbilicus is a tiny midline ventral hernia containing only fat. Vasculature: Aortoiliac atherosclerotic calcifications are present without aneurysmal dilation. Lymph nodes: No enlarged lymph nodes. Urinary bladder: Urinary bladder is empty. Reproductive: Status post hysterectomy. Bones/joints: No obvious acute osseous abnormality. Prior bilateral pelvic internal fixation similar to previous exam. Chronic lumbar spine degenerative changes without obvious central canal stenosis. Soft tissues: See Intraperitoneal space finding. CT/CT abdomen pelvis wo con [id number] IMPRESSION: No acute abnormality detected within the abdomen or pelvis. COMMENTS: Consistent with the [employer] [employer]'s Incidental Findings Committee white paper (J Am Marga Radiol 2018): Any incidental renal lesion less than 1 cm or classified as too small to characterize, or any incidental cystic renal lesion characterized as simple-appearing, is likely benign. No follow-up imaging is recommended for these lesions per consensus recommendations based on imaging criteria.
[2024-02-25] MEDS: HYDROmorphone 1 mg/mL INJ 1 mL IVP (06:29)
[2024-02-25] MEDS: diphenhydrAMINE 50 mg/mL SDV 1mL IVP (06:30)
[2024-02-25] MEDS: prochlorperazine 10 mg/2 mL Inj IVP (06:30)
[2024-02-25 07:08] LABS: Reflex Lactate Order REFLEX LACTIC ORDERD
[2024-02-25] MEDS: haloperidol inj 5 mg/mL INJ 1 mL 10 MG IVP (07:11)
[2024-02-25] MEDS: sodium chloride 0.9% 2,245.29 ML 2245.29 ML IV (07:11)
[2024-02-25 07:40] LABS: Add Urine Microscopic? YES; Bilirubin Urine 2+ (Negative); Blood Urine 3+ (Negative); Glucose Urine UA Norm (Normal); Ketones Urine 1+ (Negative); Leukocyte Esterase Urine Trace (Negative); Nitrate Urine Negative (Negative); Protein Urine 3+ (Negative); Specific Gravity, Urine 1.015 (1.005-1.030); Urine Appearance Cloudy (CLEAR); Urine Color Yellow (Yellow); Urobilinogen Urine Neg (Negative); pH Urine 5 (5-7)
[2024-02-25 07:41] LABS: Amphetamines Screen Urine Negative (Negative); Barbiturates Screen Urine Negative (Negative); Benzodiazepines Screen Urine Negative (Negative); Cocaine Screen Urine Negative (Negative); Opiate Screen Urine Positive (Negative); PCP Screen Urine Negative (Negative); THC Screen Urine Positive (Negative)
[2024-02-25 07:43] LABS: Bacteria Urine 3+ /hpf; Squamous Epithelial Cell Urine 15-25 /hpf (0-5)
[2024-02-25 07:44] LABS: Amorphous Sediment Urine 1+ /hpf; Mucus Urine TRACE /hpf
[2024-02-25 07:45] LABS: Coarse Granular Casts Urine 40-55 /lpf; Hyaline Casts Urine 0-4 /lpf
[2024-02-25 07:46] LABS: Add Urine Culture? No
[2024-02-25] MEDS: ondansetron 2 mg/ML SDV 2 mL 8 MG IVP (08:10)
[2024-02-25] MEDS: HYDROmorphone 1 mg/mL INJ 1 mL 2 MG IVP (08:11)
[2024-02-25] MEDS: cefTRIAXone 1,000 MG in sodium chloride 0.9% (plus) 50 ML 100 MG IV (08:11)
[2024-02-25] MEDS: hyDRALAzine 20 mg/mL INJ 1 mL 10 MG IVP (11:00)
--- NOTE | 2024-02-25 11:34 | P.HP_ITS ---
Providers/Chief Complaint 2 Admitting Physician: Tania Peck MD Primary Care Provider: Bucky Rogers MD Chief Complaint: N/V History of Present Illness Rachelle Mireles is a 54 year old female with history of cyclical vomiting, uses marijuana, recurrent admission to the hospital related to dehydration, electrolyte abnormality and hypotension, presented today with chief complaint of recurrent nausea and vomiting, patient has not noticed any fever but in the ER she has been diagnosed with severe dehydration with electrolyte abnormality, tachycardia, hypertension, LEVY, lactic acidosis improved with IV fluid hydration she also has white count of 14,000, CT abdomen pelvis unremarkable, Review of Systems 2 Const: Reports: chills and malaise Eyes: Denies: change in vision ENMT: Denies: throat pain Card: Denies: chest pain Resp: Reports: dyspnea GI: Reports: nausea and vomiting : Denies: flank pain Musc: Reports: back pain Medications/Allergies Home Medications Medication Instructions Recorded Confirmed Last Taken Type duloxetine 60 mg capsule,delayed 60 mg PO BID #60 caps 02/15/20 02/25/24 02/22/24 Rx release (Cymbalta) pantoprazole 40 mg tablet,delayed 40 mg PO BID 09/04/21 02/25/24 02/22/24 History release aspirin 81 mg tablet,delayed 81 mg PO QPM 04/09/22 02/25/24 02/22/24 History release amlodipine 10 mg tablet 10 mg PO QAM 05/14/23 02/25/24 02/22/24 History ferrous fumarate 89 mg (29 mg 89 mg PO DAILY 07/11/23 02/25/24 02/22/24 History iron) tablet lidocaine 5 % topical patch 1 patch topical DAILY PRN Pain 08/20/23 02/25/24 12/05/23 07:00 History metoprolol tartrate 37.5 mg tablet 37.5 mg PO BID 08/20/23 02/25/24 02/22/24 History secukinumab 150 mg/mL subcutaneous 300 mg (2 mL) SUBCUT DIRECTED 09/30/23 02/25/24 02/22/24 Rx pen injector (Cosentyx Pen 300 #2 mL mg/2 Pens () glucosamine HCl 500 mg tablet 500 mg PO DAILY 12/03/23 02/25/24 02/22/24 History multivitamin 1 tab PO DAILY 12/03/23 02/25/24 02/22/24 History red yeast rice 600 mg capsule 300 mg PO BID 12/03/23 02/25/24 02/22/24 History ondansetron 8 mg disintegrating 8 mg PO .q6 PRN nausea and 12/27/23 02/25/24 02/22/24 Rx tablet vomiting #14 tabs sennosides 8.6 mg tablet (senna) 17.2 mg PO BEDTIME PRN Constipation 12/30/23 02/25/24 02/22/24 History potassium chloride 20 mEq 40 meq (2 x 20 mEq) PO DAILY #12 12/31/23 02/25/24 02/22/24 Rx tablet,extended tabs release(part/cryst) (Klor-Con M) doxycycline hyclate 100 mg capsule 100 mg PO BID 02/25/24 02/25/24 02/22/24 History Allergies Allergy/AdvReac Type Severity Reaction Status Date / Time clindamycin Allergy Severe Unconscious Verified 12/29/23 22:32 adhesive tape Allergy Intermediate rash, red Verified 12/29/23 22:32 codeine Allergy Unknown ALGY-Anaphy Verified 12/29/23 22:32 laxis paroxetine [From Paxil] Allergy Unconscious Verified 12/29/23 22:32 PFSH Acute 2 PFSH: Medical History (Updated 02/25/24 @ 11:43 by Tania Peck MD) Sepsis Dehydration Hypokalemia LEVY (acute kidney injury) Cannabinoid hyperemesis syndrome Marijuana abuse Acute kidney injury Hypochloremic alkalosis Cyclical vomiting, intractable Osteomyelitis Hardware complicating wound infection Septic arthritis Postoperative anemia History of cardiovascular stress test (~10/2021) History of Holter monitoring (~12/2021) Baseline sinus rhythm, 50-129 bpm with average 79 bpm, one 4 beat run asymptomatic vtach Dyslipidemia Chronic kidney disease Cellulitis of toe of left foot GERD (gastroesophageal reflux disease) History of migraine Gout Cellulitis Nonunion after arthrodesis Pain in left ankle Pain in left foot High anion gap metabolic acidosis Cyclical vomiting Hepatitis B core antibody positive Surface antibody positive, surface antigen negative, HBV DNA and hepatitis b envelope Ag negative = equals past infection. Check LFTs q 3-6 months on biologic therapy. Repeat hepatitis serology if LFTs positive. Risk of reactivation. Primary osteoarthritis of right knee Tendinopathy of right rotator cuff DDD (degenerative disc disease), lumbosacral Cyclical vomiting Alcohol withdrawal Ileus Memory loss CVA (cerebral vascular accident) incidental finding on MR done for hearing loss, located in left cerebellar region on MRI performed early 2021 Elevated troponin GI bleed nsaid induced gastritis Intermittent palpitations Frozen shoulder syndrome Cannabinoid hyperemesis syndrome History of colon polyps tubular adenomas Hypertension Anxiety Plaque psoriasis High risk medication use biologic agent for psoriasis Psoriatic arthritis Major depressive disorder, recurrent, in partial remission Post-traumatic stress disorder, chronic Cannabis dependence, uncomplicated Surgical History Hx of knee surgery bilateral Hx laparoscopic cholecystectomy History of colonoscopy (~09/2021) History of hysterectomy History of ankle surgery multiple to left ankle History of shoulder surgery History of pelvic surgery History of eye surgery Has metal around eye orbit History of toe surgery multiple to left foot Family History Mother Stroke Psychiatric illness bipolar/depression Cancer Hypertension Hyperlipidemia Heart disease Migraines Father Cancer lung Heart disease Brother Psychiatric illness depression Other CAD (coronary artery disease) Diabetes Lung disease Social History Smoking and tobacco/nicotine status: current some day tobacco/nicotine user cigarettes [ Other cigarette details: Quarter to half pack a day] Alcohol intake: current Substance/Drug Use: current Substance/Drug use frequency: daily Vitals/I&O/Wt Last Vital Signs Temp 98.5 F 02/25/24 03:49 Pulse 110 H 02/25/24 09:07 Resp 18 02/25/24 11:12 BP 167/123 02/25/24 11:12 Pulse Ox 98 02/25/24 11:12 O2 Del Method Nasal Cannula 02/25/24 09:07 O2 Flow Rate 2 02/25/24 09:07 02/24/24 02/25/24 02/25/24 22:59 06:59 14:59 Intake Total 3295.29 / 3295.29 Balance 3295.29 / 3295.29 Weight last 48 hrs Weight 74.843 kg Weight 74.843 kg Physical Exam 2 Narrative: Patient awake and alert Also the meningitis No sign of stroke Tachycardia Dehydration Currently on 2 L Hypertensive Abdomen soft Muscle mass loss Awake and alert Nonfocal neuroexam S1, S2 sinus tachycardia Data 02/25/24 04:04 02/25/24 04:04 A&P Assessment and plan (1) Hyponatremia: (2) Cyclical vomiting, intractable: (3) Acute on chronic renal insufficiency: (4) Metabolic acidosis: (5) UTI (urinary tract infection): (6) Sepsis: Plan UTI with sepsis Sepsis coronary met with tachypnea tachycardia high lactic acid, endorgan damage and leukocytosis Patient has received ceftriaxone in the ER request blood culture, urine culture Continue ceftriaxone Qsofa 1 Dehydration Metabolic acidosis related to lactic acidemia Lactic acidosis improved with IV fluid hydration CT abdomen pelvis unremarkable Dehydration likely related to cyclical vomiting Continue IV fluids Hypovolemic hyponatremia. Sodium 123, Continue IV fluid hydration Drug screen positive for marijuana and opioids Sinus tachycardia likely related to dehydration Acute on chronic kidney disease with metabolic acidosis History of cyclical vomiting Abnormal UA but not a good sample Hypomagnesemia: Replenished Concern for refeeding syndrome check phosphorus and magnesium I may add gastroparesis gastric emptying study by tomorrow Attestations 2 Medical Necessity Statement*: More than 2 midnights anticipated for management of sepsis, severe electrolyte abnormality, concern for refeeding syndrome This cannot be managed outpatient patient will be admitted as an inpatient for now with sepsis LEVY electrolyte abnormality Diagnoses Hyponatremia E87.1 Cyclical vomiting, intractable R11.15 Acute on chronic renal insufficiency N28.9; N18.9 Metabolic acidosis E87.20 UTI (urinary tract infection) N39.0 Sepsis A41.9
[2024-02-25] MEDS: acetaminophen 500 mg Tablet PO ×2 (12:50→20:35)
[2024-02-25] MEDS: sodium chloride 0.9% 1,000 ML 100 ML IV (12:50)
[2024-02-25] MEDS: heparin 5,000 unit/mL INJ 1 mL 5000 UNIT SUBCUT (12:50)
[2024-02-25] MEDS: metoclopramide 5 mg/mL SDV 2 mL IVP (12:56)
[2024-02-25 13:45] LABS: Procalcitonin 0.48 ng/mL (0-0.5)
[2024-02-25] MEDS: hyDRALAzine 20 mg/mL INJ 1 mL 5 MG IVP (15:10)
[2024-02-25] MEDS: metoprolol tartrate 25 mg Tablet 37.5 MG PO (17:04)
[2024-02-25] MEDS: pantoprazole DR 40 mg Tablet PO (17:04)
[2024-02-26] VITALS (8 sets, daily range): BP systolic 99–143; BP diastolic 65–92; PULSE 77–95; RESP 16–20; TEMP 37–37.1; O2SAT 92–98
[2024-02-26] MEDS: heparin 5,000 unit/mL INJ 1 mL 5000 UNIT SUBCUT ×2 (00:04→23:23)
[2024-02-26] MEDS: metoclopramide 5 mg/mL SDV 2 mL IVP (02:32)
[2024-02-26 05:51] LABS: Basophils % 0.4 %; Eosinophils % 0.2 %; Hematocrit 39.9 % (36-47); Lymphocytes # 0.9 10^3/uL (0.8-4.8); Lymphocytes % 8.8 %; Mean Corpuscular HGB Conc 34.6 g/dL (30-55); Mean Corpuscular Hemoglobin 30.3 pg (27-33); Mean Corpuscular Volume 87.5 fl (85-98); Mean Platelet Volume 9.6 fL (7.4-10.4); Monocytes # 1.4 10^3/uL (0.2-0.9); Monocytes % 13.1 %; Neutrophils # 8.17 10^3/uL (1.8-7.7); Neutrophils % 77.2 %; Nucleated Red Blood Cells % 0 %; Platelet Count 421 10^3/cmm (157-399); Red Blood Count 4.56 10^6/uL (3.85-5.65); Red Cell Distribution Width 13.9 % (12.1-15.1); White Blood Count 10.57 10^3/uL (3.29-11.43)
[2024-02-26 06:17] LABS: C Reactive Protein 73.6 mg/L (0.0-4.9); Magnesium 1.8 mg/dL (1.7-2.3); Phosphorus 2.6 mg/dL (2.5-4.5)
[2024-02-26 06:25] LABS: Anion Gap 18.4 (5-19); Blood Urea Nitrogen 30 mg/dL (6-20); Calcium 8.5 mg/dL (8.5-10.5); Carbon Dioxide 26 mmol/L (22-29); Chloride 83 mmol/L (98-107); Glomerular Filtration Rate 31.1 mL/min (90-130); Glucose 111 mg/dL (65-115); Osmolality Calculated 267 mOsm/kg (285-295); Sodium 125 mmol/L (136-145)
[2024-02-26 06:37] LABS: Potassium 2.4 mmol/L (3.5-5.1)
[2024-02-26] MEDS: metoprolol tartrate 25 mg Tablet 37.5 MG PO ×2 (08:04→18:20)
[2024-02-26] MEDS: lidocaine 1% 5 ML in potassium chloride premix 100 ML 26.25 ML IV ×2 (08:04→13:07)
[2024-02-26] MEDS: pantoprazole DR 40 mg Tablet PO ×2 (08:04→18:20)
[2024-02-26] MEDS: sodium chloride 0.9% 1,000 ML 100 ML IV ×2 (08:05→18:21)
--- NOTE | 2024-02-26 11:14 | P.PN_ITS ---
Subjective 2 Subjective: Sepsis related to UTI: Improving Hypokalemia being replenished with IV Difficult peripheral IV access Will try to get an ultrasound guided peripheral IV Patient required midline and PICC line in the past 4125 potassium 2.4 creatinine 1.7 Vitals/I&O/Wt Last Vital Signs Temp 98.8 F 02/26/24 06:59 Pulse 92 02/26/24 08:16 Resp 16 02/26/24 08:16 BP 143/87 02/26/24 06:59 Pulse Ox 96 02/26/24 08:16 O2 Del Method Room Air 02/26/24 08:16 O2 Flow Rate 2 02/25/24 09:07 02/25/24 02/26/24 02/26/24 22:59 06:59 14:59 Intake Total 2200 / 5615.29 0 / 5615.29 12.25 / 12.25 Balance 2200 / 5615.29 0 / 5615.29 12. / 12. Weight last 48 hrs Weight 73.539 kg Weight 74.843 kg Weight 74.843 kg Physical Exam 2 Narrative: Signs of dehydration improving Patient has glossitis Nonfocal neuroexam GCS 15 Abdomen soft No active emesis Pleasant cooperative Awake and alert S1, S2 Data 02/26/24 05:27 02/26/24 05:27 Micro: Microbiology 02/25/24 12:40 Blood Culture - Preliminary Blood SPECIMEN COLLECTED 02/25/24 12:20 Blood Culture - Preliminary Blood SPECIMEN COLLECTED A&P Assessment and plan (1) High risk medication use: (2) Hyponatremia: (3) Cyclical vomiting, intractable: (4) Acute on chronic renal insufficiency: (5) Metabolic acidosis: (6) Dehydration: (7) UTI (urinary tract infection): (8) Sepsis: Plan Sepsis related to UTI: Improving Afebrile Cultures negative Continue antibiotic Hypokalemia: 80 mEq K rider IV Significant dehydration Continue IV fluid hydration Obtaining IV access LEVY: Creatinine improving with IV fluid hydration No signs of encephalopathy Normotensive Patient doses of medical marijuana Patient does not want gastric pacemaker she most likely has gastroparesis, requesting gastric emptying study today She is full code DVT prophylaxis on board Attestations 2 Medical Necessity Statement*: Continue medical management Diagnoses High risk medication use Z79.899 Hyponatremia E87.1 Cyclical vomiting, intractable R11.15 Acute on chronic renal insufficiency N28.9; N18.9 Metabolic acidosis E87.20 Dehydration E86.0 UTI (urinary tract infection) N39.0 Sepsis A41.9
--- NOTE | 2024-02-26 11:45 | NM_ITS ---
WS: [id number] NUCLEAR MEDICINE GASTRIC STUDY CLINICAL INFORMATION: Cyclical vomiting TECHNIQUE: Following oral ingestion of cooked egg mixed with 1.03 mCi technetium 99m sulfur colloid, anterior images of the stomach were obtained over the course of 90 minutes. Activity curve was perfor med over the course of 90 minutes with linear regression analysis. COMPARISON: None. FINDINGS: Oral ingestion of cooked egg mixture technetium labeled sulfur colloid T1 half gastric emptying 52.0 minutes 41% emptying at 20 months 43% emptying at 30 minutes 49% emptying at 45 minutes 53% emptying at 58 minutes TN/[place] [id number] IMPRESSION: 1. Somewhat rapid gastric emptying with T1 half 52 minutes within normal limit s (normal 45 to 110 minutes) 2. No other suspicious findings. *Normal median T1 half 90 minutes for solid egg meal (45-110 minutes). Delayed gastric retention is defined as 90% retained at 1 hour, 60% at 2 hour s, 30% at 3 hours, and 10% at 4 hours (normal percent gastric retention is 37-9 0% at 1 hour, 30-60% at 2 hours, and 0-10% at 4 hours).
[2024-02-26] MEDS: acetaminophen 500 mg Tablet PO (14:44)
[2024-02-26] MEDS: sodium chloride 1 gm Tablet PO ×2 (14:45→18:20)
[2024-02-26] MEDS: ondansetron 2 mg/ML SDV 2 mL 4 MG IVP (20:22)
[2024-02-26] MEDS: morphine 4 mg/mL SDV 1 mL 2 MG IVP (20:22)
[2024-02-26] MEDS: cefTRIAXone 1,000 MG in sodium chloride 0.9% (plus) 50 ML 100 MG IV (20:32)
[2024-02-27] VITALS: BP 152/100; PULSE 76; RESP 20; TEMP 36.7; O2SAT 94
[2024-02-27] MEDS: acetaminophen 500 mg Tablet PO (00:28)
[2024-02-27 02:28] VITALS: RESP 16
[2024-02-27] MEDS: morphine 4 mg/mL SDV 1 mL 2 MG IVP ×2 (02:28→08:44)
[2024-02-27 04:00] VITALS: BP 137/93; PULSE 53; RESP 18; TEMP 36.5; O2SAT 96
[2024-02-27 04:24] VITALS: BMI 25.9
[2024-02-27] MEDS: sodium chloride 0.9% 1,000 ML 100 ML IV (04:31)
[2024-02-27 05:56] LABS: Basophils % 0.2 %; Eosinophils # 0.1 10^3/uL (0.0-0.8); Eosinophils % 0.7 %; Hematocrit 38.2 % (36-47); Lymphocytes # 2.7 10^3/uL (0.8-4.8); Lymphocytes % 27.3 %; Mean Corpuscular HGB Conc 33.2 g/dL (30-55); Mean Corpuscular Hemoglobin 30.4 pg (27-33); Mean Corpuscular Volume 91.4 fl (85-98); Mean Platelet Volume 9.7 fL (7.4-10.4); Monocytes # 1.2 10^3/uL (0.2-0.9); Monocytes % 11.8 %; Neutrophils # 5.84 10^3/uL (1.8-7.7); Neutrophils % 59.5 %; Nucleated Red Blood Cells % 0 %; Platelet Count 396 10^3/cmm (157-399); Red Blood Count 4.18 10^6/uL (3.85-5.65); Red Cell Distribution Width 14.1 % (12.1-15.1); White Blood Count 9.82 10^3/uL (3.29-11.43)
[2024-02-27] MEDS: amlodipine 10 mg Tablet PO (06:04)
[2024-02-27 06:27] LABS: Anion Gap 15.9 (5-19); Blood Urea Nitrogen 13 mg/dL (6-20); Calcium 8.6 mg/dL (8.5-10.5); Carbon Dioxide 21 mmol/L (22-29); Chloride 99 mmol/L (98-107); Glomerular Filtration Rate 51.4 mL/min (90-130); Glucose 91 mg/dL (65-115); Osmolality Calculated 276 mOsm/kg (285-295); Sodium 133 mmol/L (136-145)
[2024-02-27 06:30] LABS: Potassium 2.9 mmol/L (3.5-5.1)
[2024-02-27 08:00] VITALS: BP 155/87; PULSE 76; RESP 20; TEMP 36.5; O2SAT 94
[2024-02-27 08:44] VITALS: RESP 16
[2024-02-27] MEDS: pantoprazole DR 40 mg Tablet PO (08:44)
[2024-02-27] MEDS: metoprolol tartrate 25 mg Tablet 37.5 MG PO (08:44)
[2024-02-27] MEDS: potassium chloride ER 20 mEq Tablet 40 MEQ PO (08:44)
[2024-02-27] MEDS: sodium chloride 1 gm Tablet PO (08:44)
--- NOTE | 2024-02-27 09:34 | P.DS_ITS ---
Discharge Providers Date of Admission: 02/25/24 10:04 Date of Discharge: February 27, 2024 Attending Provider at Admission: Tania Peck MD Attending Provider at Discharge: Tania Peck MD Primary Care Provider: Bucky Rogers MD Diagnoses at Discharge Discharge Diagnosis (1) High risk medication use: Status: Chronic Permanent problem details: biologic agent for psoriasis (2) Hyponatremia: Status: Acute (3) Cyclical vomiting, intractable: Status: Acute (4) Acute on chronic renal insufficiency: Status: Acute (5) Metabolic acidosis: Status: Acute (6) Dehydration: Status: Acute (7) UTI (urinary tract infection): Status: Acute (8) Sepsis: Status: Acute Reason for Visit Reason for Visit: N/V Hospital Course Hospital Course 54-year-old female who was admitted for management elevation of sepsis related to UTI and severe electrolyte abnormality related to recurrent nausea vomiting, patient was given IV fluids with replenishment of electrolytes, gastric emptying study was done during this hospitalization which showed no signs of gastroparesis, patient is stating that 2014 she had a stent placed for gastric outlet obstruction and since then she has felt much better. She is still using medical marijuana which I do think is the culprit to cause cyclical vomiting. She does have potassium supplements at home, I have asked patient to keep taking potassium at least for 1 week regularly. She is hemodynamically stable, no fever cultures negative to date. I will dis charge home with stable hemodynamics Physical Exam Narrative: Awake and alert Euvolemic GCS 15 Walking on her own Pleasant cooperative Nonfocal neuroexam Discharge Data Studies Completed and Pending Completed Studies During Hospitalization Category Date Time Status CT abdomen pelvis wo con [id number] Stat Cat Scan 02/25/24 05:40 [place] [id number] Routine Nuc Med 02/26/24 11:45 Completed Pending at discharge Category Date Time Status Blood Culture Stat Lab 02/25/24 12:40 Results Urine Culture Stat Lab 02/25/24 07:24 Received Radiology Impressions Abdomen/Pelvis CT 02/25/24 05:40 IMPRESSION: No acute abnormality detected within the abdomen or pelvis. COMMENTS: Consistent with the [employer]'s Incidental Findings Committee white paper (J Am Marga Radiol 2018): Any incidental renal lesion less than 1 cm or classified as too small to characterize, or any incidental cystic renal lesion characterized as simple-appearing, is likely benign. No follow-up imaging is recommended for these lesions per consensus recommendations based on imaging criteria. Gastric Emptying Nuclear Medicine 02/26/24 11:45 IMPRESSION: 1. Somewhat rapid gastric emptying with T1 half 52 minutes within normal limits (normal 45 to 110 minutes) 2. No other suspicious findings. *Normal median T1 half 90 minutes for solid egg meal (45-110 minutes). Delayed gastric retention is defined as 90% retained at 1 hour, 60% at 2 hours, 30% at 3 hours, and 10% at 4 hours (normal percent gastric retention is 37-90% at 1 hour, 30-60% at 2 hours, and 0-10% at 4 hours). Laboratory Results WBC 9.82 10^3/uL (3.29-11.43) 02/27/24 05:37 RBC 4.18 10^6/uL (3.85-5.65) 02/27/24 05:37 Hgb 12.70 g/dL (11.27-16.99) 02/27/24 05:37 Hct 38.2 % (36-47) 02/27/24 05:37 MCV 91.4 fl (85-98) 02/27/24 05:37 MCH 30.4 pg (27-33) 02/27/24 05:37 MCHC 33.2 g/dL (30-55) 02/27/24 05:37 RDW 14.1 % (12.1-15.1) 02/27/24 05:37 Plt Count 396 10^3/cmm (157-399) 02/27/24 05:37 MPV 9.7 fL (7.4-10.4) 02/27/24 05:37 Neut % (Auto) 59.5 % 02/27/24 05:37 Lymph % (Auto) 27.3 % 02/27/24 05:37 [place] % (Auto) 11.8 % 02/27/24 05:37 Eos % (Auto) 0.7 % 02/27/24 05:37 Baso % (Auto) 0.2 % 02/27/24 05:37 Neut # (Auto) 5.84 10^3/uL (1.8-7.7) 02/27/24 05:37 Lymph # (Auto) 2.7 10^3/uL (0.8-4.8) 02/27/24 05:37 [place] # (Auto) 1.2 10^3/uL (0.2-0.9) H 02/27/24 05:37 Eos # (Auto) 0.1 10^3/uL (0.0-0.8) 02/27/24 05:37 Baso # (Auto) 0.0 10^3/uL (0.0-0.1) 02/27/24 05:37 Nucleated RBC % (auto) 0 % 02/27/24 05:37 Nucleated RBCs # 0.0 /100WBC 02/27/24 05:37 Sodium 133 mmol/L (136-145) L 02/27/24 05:37 Potassium 2.9 mmol/L (3.5-5.1) L 02/27/24 05:37 Chloride 99 mmol/L (98-107) 02/27/24 05:37 Carbon Dioxide 21 mmol/L (22-29) L 02/27/24 05:37 Anion Gap 15.9 (5-19) 02/27/24 05:37 BUN 13 mg/dL (6-20) 02/27/24 05:37 Creatinine 1.1 mg/dL (0.5-0.9) H 02/27/24 05:37 GFR Calculation 51.4 mL/min (90-130) L 02/27/24 05:37 Glucose 91 mg/dL (65-115) 02/27/24 05:37 Calculated Osmolality 276 mOsm/kg (285-295) L 02/27/24 05:37 Lactic Acid 4.3 mmol/L (0.5-2.2) H* 02/25/24 04:04 Lactic Acid (Sepsis) 1.0 mmol/L (0.5-2.2) 02/25/24 08:25 Calcium 8.6 mg/dL (8.5-10.5) 02/27/24 05:37 Phosphorus 2.6 mg/dL (2.5-4.5) 02/26/24 05:27 Magnesium 1.8 mg/dL (1.7-2.3) 02/26/24 05:27 Total Bilirubin 0.5 mg/dL (0.15-1.2) 02/25/24 04:04 AST 53 U/L (0-32) H 02/25/24 04:04 ALT 25 U/L (0-33) 02/25/24 04:04 Alkaline Phosphatase 132 U/L (35-105) H 02/25/24 04:04 C-Reactive Protein 73.6 mg/L (0.0-4.9) H 02/26/24 05:27 Total Protein 8.9 g/dL (6.6-8.7) H 02/25/24 04:04 Albumin 4.7 g/dL (3.5-5.2) 02/25/24 04:04 Globulin 4.2 g/dL (1.3-4.6) 02/25/24 04:04 Lipase 21 U/L (13-60) 02/25/24 04:04 Procalcitonin 0.48 ng/mL (0-0.5) 02/25/24 12:20 Urine Color Yellow (Yellow) 02/25/24 07:24 Urine Appearance Cloudy (CLEAR) A 02/25/24 07:24 Urine pH 5 (5-7) 02/25/24 07:24 Ur Specific [place] 1.015 (1.005-1.030) 02/25/24 07:24 Urine Protein 3+ (Negative) H 02/25/24 07:24 Urine Glucose (UA) Norm (Normal) 02/25/24 07:24 Urine Ketones 1+ (Negative) H 02/25/24 07:24 Urine Blood 3+ (Negative) H 02/25/24 07:24 Urine Nitrate Negative (Negative) 02/25/24 07:24 Urine Bilirubin 2+ (Negative) H 02/25/24 07:24 Urine Urobilinogen Neg mg/dL (Negative) 02/25/24 07:24 Ur Leukocyte Esterase Trace (Negative) H 02/25/24 07:24 Urine RBC 5-10 /hpf (0-2) H 02/25/24 07:24 Urine WBC 5-10 /hpf (0-5) H 02/25/24 07:24 Ur Squamous Epith Cells 15-25 /hpf (0-5) H 02/25/24 07:24 Calcium Oxalate Crystal 5-10 /hpf H 02/25/24 07:24 Amorphous Sediment 1+ /hpf 02/25/24 07:24 Urine Bacteria 3+ /hpf (NONE) H 02/25/24 07:24 Hyaline Casts 0-4 /lpf H 02/25/24 07:24 Coarse Granular Casts 40-55 /lpf H 02/25/24 07:24 Urine Mucus Trace /hpf 02/25/24 07:24 Urine Opiates Screen Positive ng/mL (Negative) H 02/25/24 07:24 Ur Barbiturates Screen Negative ng/mL (Negative) 02/25/24 07:24 Ur Phencyclidine Scrn Negative ng/mL (Negative) 02/25/24 07:24 Ur Amphetamines Screen Negative ng/mL (Negative) 02/25/24 07:24 U Benzodiazepines Scrn Negative ng/mL (Negative) 02/25/24 07:24 Urine Cocaine Screen Negative ng/mL (Negative) 02/25/24 07:24 U Marijuana (THC) Screen Positive ng/mL (Negative) H 02/25/24 07:24 Serum Ketones Negative (Negative) 02/25/24 04:04 Vitals Last Vital Signs Temp 97.7 F 02/27/24 04:00 Pulse 53 L 02/27/24 04:00 Resp 16 02/27/24 08:44 BP 137/93 02/27/24 04:00 Pulse Ox 96 02/27/24 04:00 O2 Del Method Room Air 02/27/24 04:00 O2 Flow Rate 2 02/25/24 09:07 Discharge Plan Discharge Patient Disposition: Home Condition: Stable Prescriptions: New ondansetron HCl 4 mg tablet 4 mg PO DAILY Qty: 14 0RF cefpodoxime 200 mg tablet 200 mg PO BID Qty: 10 0RF Rx Instructions: must administer with a meal/food Continued ferrous fumarate 89 mg (29 mg iron) tablet 89 mg PO DAILY red yeast rice 600 mg capsule 300 mg PO BID Rx Instructions: give with meal/snack glucosamine HCl 500 mg tablet 500 mg PO DAILY Rx Instructions: administer with a meal multivitamin Tablet 1 tab PO DAILY Cymbalta 60 mg capsule,delayed release(DR/EC) 60 mg PO BID Qty: 60 0RF Cosentyx Pen (2 Pens) 150 mg/mL pen injector 300 mg SUBCUT DIRECTED Qty: 2 4RF Rx Instructions: Start 300 mg SC q week x 5 weeks; then q 4 weeks for maintenance pantoprazole 40 mg tablet,delayed release (DR/EC) 40 mg PO BID amlodipine 10 mg tablet 10 mg PO QAM lidocaine 5 % adhesive patch,medicated 1 patch topical DAILY PRN (Reason: Pain) metoprolol tartrate 37.5 mg tablet 37.5 mg PO BID sennosides [senna] 8.6 mg tablet 17.2 mg PO BEDTIME PRN (Reason: Constipation) potassium chloride [Klor-Con M20] 20 mEq Tablet,Er Particles/Crystals 40 meq PO DAILY Qty: 12 0RF doxycycline hyclate 100 mg capsule 100 mg PO BID aspirin 81 mg tablet,delayed release (DR/EC) 81 mg PO QPM ondansetron 8 mg tablet,disintegrating 8 mg PO .q6 PRN (Reason: nausea and vomiting) Qty: 14 0RF Discharge Orders: Discharge Order (Routine); Ordered 02/27/24 Ordered By: Tania Peck Referrals: Bucky Rogers MD [Primary Care Provider] - Discharge Diet: Regular Discharge Activity: Increase activity as tolerated Patient Instructions: Opioid Safety Discharge Attestations Time Spent in Discharge Care*: greater than 30 min Status at Discharge: Cognitive status at discharge: cognitively intact , Behavioral status at discharge: cooperative , Quality Metrics Clinical Quality Measures [ No reported AMI, CVA or VTE this stay] Coding Level of Care Code Acute Code for Chg Fwd Diagnoses High risk medication use Z79.899 Hyponatremia E87.1 Cyclical vomiting, intractable R11.15 Acute on chronic renal insufficiency N28.9; N18.9 Metabolic acidosis E87.20 Dehydration E86.0 UTI (urinary tract infection) N39.0 Sepsis A41.9
--- NOTE | 2024-02-27 11:41 | PC.NURSE ---
Patient signed discharge paperwork at 1137. Patient is awaiting ride in room.
[2024-02-27 12:05] VITALS: RESP 16
[2024-02-27 13:06] LABS: Acinetobacter baumannii Not Detected (NOT DETECT); Bacteroides fragilis Not Detected (NOT DETECT); Citrobacter Not Detected (NOT DETECT); Cronobacter sakazakii Not Detected (NOT DETECT); Enterobacter cloacae complex Not Detected (NOT DETECT); Enterobacter non cloacae Not Detected (NOT DETECT); Fusobacterium necrophorum Not Detected (NOT DETECT); Fusobacterium nucleatum Not Detected (NOT DETECT); Haemophilus influenzae Not Detected (NOT DETECT); Klebsiella pneumoniae group Not Detected (NOT DETECT); Morganella morganii Not Detected (NOT DETECT); Neisseria meningitidis Not Detected (NOT DETECT); Pan Candida Not Detected (NOT DETECT); Pan Gram-Positive Not Detected (NOT DETECT); Proteus mirabilis Not Detected (NOT DETECT); Pseudomonas aeruginosa Not Detected (NOT DETECT); Salmonella Not Detected (NOT DETECT); Serratia Not Detected (NOT DETECT); Serratia marcescens Not Detected (NOT DETECT); Stenotrophomonas maltophilia Not Detected (NOT DETECT)
== END 2024-02-27 12:00 | disposition home or self-care (01) | DRG 690 ==
LOC: ER 08:37 → MEDSURG 10:04
PROVIDERS: Emergency Medicine; Admitting Provider Internal Medicine; Emergency Provider Emergency Medicine; PCP Family Medicine; Visit Provider Internal Medicine
DX: N39.0 Urinary tract infection, site not specified (principal); E87.1 Hypo-osmolality and hyponatremia; N17.9 Acute kidney failure, unspecified; E87.20 Acidosis, unspecified; R11.15 Cyclical vomiting syndrome unrelated to migraine; N18.9 Chronic kidney disease, unspecified; E86.0 Dehydration; F17.210 Nicotine dependence, cigarettes, uncomplicated; I12.9 Hypertensive chronic kidney disease with stage 1 through stage 4 chronic kidney disease, or unspecified chronic kidney disease; Z79.82 Long term (current) use of aspirin; R00.0 Tachycardia, unspecified; E87.6 Hypokalemia; E83.42 Hypomagnesemia; F12.10 Cannabis abuse, uncomplicated; K21.9 Gastro-esophageal reflux disease without esophagitis
CPT/HCPCS: 36415; 51701; 74176; 78264; 80048; 80053; 80306; 81001; 82009; 83605; 83690; 83735; 84100; 84145; 85025; 86140; 87040; 87086; 96365; 96372; 96375; 96376; 99285; A9541; J0360; J0696; J0780; J1170; J1200; J1630; J1644; J1885; J2270; J2405; J2550; J2765; J3480; J7030

== ENCOUNTER → 2024-03-10 13:55 | Outpatient (BNVA) | payer MEDICARE, MEDICAID, SELFPAY | PROVIDERS: PCP Family Medicine; Visit Provider Nurse Practitioner | DX: M17.0 Bilateral primary osteoarthritis of knee | CPT/HCPCS: 73560; 73565 ==

== ENCOUNTER → 2024-03-11 13:23 | Outpatient (BNVA) | payer MEDICARE, MEDICAID, SELFPAY | PROVIDERS: PCP Family Medicine; Visit Provider Surgery | DX: Z09 Encounter for follow-up examination after completed treatment for conditions other than malignant neoplasm (principal) | CPT/HCPCS: 99213 ==

== ENCOUNTER 2024-03-19 08:43 | Outpatient (CLI) | payer MEDICARE, MEDICAID, SELFPAY ==
--- NOTE | 2024-03-19 09:00 | CT_ITS ---
WS: [id number] CT RIGHT KNEE, NONCONTRAST [facility] TECHNIQUE: Noncontrast CT of the RIGHT knee to include the RIGHT hip and ankle. CLINICAL INFORMATION: M17.11 - Unilateral primary osteoarthritis, right knee COMPARISON: None. DLP: 984.[address] scans at [facility] use at least one of these dose optimization techniques: automated e xposure control; mA and/or kV adjustment per patient size (includes targeted exams where dose is matc hed to clinical indication); or iterative reconstruction. FINDINGS: Advanced tricompartment arthritis RIGHT knee with hypertrophic changes along the joint line . Hypertrophic patella. Moderate suprapatellar effusion. Previous screw removal distal RIGHT tibial p julia. Screw fixation across the sacroiliac joints. Screw fixation superior pubic rami. Plate and screw fixa tion LEFT sacrum. Screw fixation LEFT tibial plafond. CT/CT knee RT [facility] [id number] IMPRESSION: Images obtained for preoperative purposes.
== END 2024-03-19 08:44 | disposition home or self-care (01) ==
LOC: RAD 08:44
PROVIDERS: PCP Family Medicine; Visit Provider Nurse Practitioner
DX: Z01.818 Encounter for other preprocedural examination (principal); M17.11 Unilateral primary osteoarthritis, right knee; M79.4 Hypertrophy of (infrapatellar) fat pad
CPT/HCPCS: 36415; 73700; 80053; 81003; 85025; 99214

== ENCOUNTER 2024-03-24 11:09 | Observation (INO) | payer MEDICARE, MEDICAID, SELFPAY ==
[2024-03-24] VITALS (19 sets, daily range): BP systolic 98–158; BP diastolic 67–104; PULSE 56–87; RESP 16–21; TEMP 36.3–36.9; O2SAT 91–100; BMI 25.8
--- NOTE | 2024-03-24 06:30 | ANES.PREANE2 ---
Pre-Anesthetic Assessment Height/Weight: Height 1.68 m Weight 72.575 kg Temp Pulse Resp BP Pulse Ox O2 Del Method 97.4 F L 72 18 143/104 97 Room Air 03/24/24 06:14 03/24/24 06:14 03/24/24 06:14 03/24/24 06:14 03/24/24 06:14 03/24/24 06:15 Operation Date: 03/24/24 07:00 Proposed Procedures p Ismael Robot Total Knee Arthroplasty(Right) - Mely Connelly MD Familial anesthetic complications: Woke up during knee and foot surgery, patient states those in OR spoke to her during it and she was able to see the environment, so sounds like MAC cases Was Beta Sanjuanita taken within 24 hours: N/A Was Clonidine taken within 24 hours: N/A Last intake: Intake Last Liquid Date 03/23/24 Last Liquid Time 22:00 Last Solid Date 03/23/24 Last Solid Time 17:00 Social Tobacco Exam alert, oriented x 3, clear to auscultation bilaterally and regular rate & rhythm Airway Mallampati: Class II Dentition: false CV/HEM EKG 12/08/[address] DEPRESSION [0.05+ mV ST DEPRESSION] Compared to ECG 08/20/2023 06:19:14 Sinus tachycardia no longer present Short IL interval no longer present ST (T wave) deviation still present CARDIAC EVENT MONITOR 11/20/21 1. Baseline rhythm is sinus rhythm. Heart rate ranging from 50-129, average 79 bpm. 2. One 4 beats long run of V tachycardia was asymptomatic. 3. No episodes of atrial fibrillation. 4. No patient symptoms mentioned. SESTAMIBI STRESS TEST 11/01/21 1. Normal EKG response to LexiScan infusion. 2. No LexiScan induced chest pain or cardiac arrhythmia. 3. Normal blood pressure and heart rate response. MYOCARDIAL PERFUSION SCAN 11/01/21 1. Myocardial perfusion imaging is normal. Attenuation artifact noted in basal to mid inferior and inferolateral kahn. 2. Overall left ventricular systolic function is normal without regional wall motion abnormalities. 3. The left ventricular ejection fraction is normal with a value of 73%. 4. Normal EKG response to Lexiscan infusion. Refer to separate report for details. 5. No prior similar studies to compare. ECHO 10/30/21 1. Normal left ventricular size, systolic function and mildly increased wall thickness, with no diagnostic regional wall motion abnormalities. Left ventricular ejection fraction is estimated at 70 %. Normal diastolic function. 2. Mild-moderate mitral valve regurgitation. 3. When compared to previous echocardiogram dated 05/06/2018, mitral regurgitation seems to have worsened. Chronic Renal Insufficiency GI Gastroesophageal Reflux Disease Metabolic Hyperlipidemia Neuropsych Cerebrovascular Accident Anesthetic Plan ASA status: 3 Anesthesia: Regional (specify below) Risk of > 500 ml blood loss (7ml/kg in children): No Medications/Allergies Home Medications Medication Instructions Recorded Confirmed Last Taken Type duloxetine 60 mg capsule,delayed 60 mg PO BID #60 caps 02/15/20 03/24/24 03/24/24 Rx release (Cymbalta) pantoprazole 40 mg tablet,delayed 40 mg PO BID 09/04/21 03/24/24 03/24/24 History release aspirin 81 mg tablet,delayed 81 mg PO QPM 04/09/22 03/23/24 03/20/24 History release amlodipine 10 mg tablet 10 mg PO QAM 05/14/23 03/24/24 03/24/24 History metoprolol tartrate 37.5 mg tablet 37.5 mg PO BID 08/20/23 03/24/24 03/24/24 History secukinumab 150 mg/mL subcutaneous 300 mg (2 mL) SUBCUT DIRECTED 09/30/23 03/23/24 03/02/24 Rx pen injector (Cosentyx Pen 300 #2 mL mg/2 Pens () glucosamine HCl 500 mg tablet 500 mg PO DAILY 12/03/23 03/23/24 03/23/24 History multivitamin 1 tab PO DAILY 12/03/23 03/24/24 03/24/24 History red yeast rice 600 mg capsule 300 mg PO BID 12/03/23 03/23/24 03/23/24 History potassium chloride 20 mEq 40 meq (2 x 20 mEq) PO DAILY #12 12/31/23 03/23/24 03/19/24 Rx tablet,extended tabs release(part/cryst) (Klor-Con M) doxycycline hyclate 100 mg capsule 100 mg PO BID 02/25/24 03/23/24 03/23/24 History ondansetron HCl 4 mg tablet 4 mg PO DAILY #14 tabs 06/27/24 07/22/24 Unknown Rx Allergies Allergy/AdvReac Type Severity Reaction Status Date / Time clindamycin Allergy Severe Unconscious Verified 03/20/24 09:39 adhesive tape Allergy Intermediate rash, red Verified 03/20/24 09:39 codeine Allergy Unknown ALGY-Anaphy Verified 03/20/24 09:39 laxis paroxetine [From Paxil] Allergy Unconscious Verified 03/20/24 09:39 [facility] Anesthesia Medical History Primary osteoarthritis of left knee UTI (urinary tract infection) Metabolic acidosis Acute on chronic renal insufficiency Hyponatremia Cyclical vomiting, intractable Sepsis Dehydration Hypokalemia LEVY (acute kidney injury) Cannabinoid hyperemesis syndrome Marijuana abuse Acute kidney injury Hypochloremic alkalosis Cyclical vomiting, intractable Osteomyelitis Hardware complicating wound infection Septic arthritis Postoperative anemia History of cardiovascular stress test (~10/2021) History of Holter monitoring (~12/2021) Baseline sinus rhythm, 50-129 bpm with average 79 bpm, one 4 beat run asymptomatic vtach Dyslipidemia Chronic kidney disease Cellulitis of toe of left foot GERD (gastroesophageal reflux disease) History of migraine Gout Cellulitis Nonunion after arthrodesis Pain in left ankle Pain in left foot High anion gap metabolic acidosis Cyclical vomiting Hepatitis B core antibody positive Surface antibody positive, surface antigen negative, HBV DNA and hepatitis b envelope Ag negative = equals past infection. Check LFTs q 3-6 months on biologic therapy. Repeat hepatitis serology if LFTs positive. Risk of reactivation. Primary osteoarthritis of right knee Tendinopathy of right rotator cuff DDD (degenerative disc disease), lumbosacral Cyclical vomiting Alcohol withdrawal Ileus Memory loss CVA (cerebral vascular accident) incidental finding on MR done for hearing loss, located in left cerebellar region on MRI performed early 2021 Elevated troponin GI bleed nsaid induced gastritis Intermittent palpitations Frozen shoulder syndrome Cannabinoid hyperemesis syndrome History of colon polyps tubular adenomas Hypertension Anxiety Plaque psoriasis High risk medication use biologic agent for psoriasis Psoriatic arthritis Major depressive disorder, recurrent, in partial remission Post-traumatic stress disorder, chronic Cannabis dependence, uncomplicated Surgical History Hx of knee surgery bilateral Hx laparoscopic cholecystectomy History of colonoscopy (~09/2021) History of hysterectomy History of ankle surgery multiple to left ankle History of shoulder surgery History of pelvic surgery History of eye surgery Has metal around eye orbit History of toe surgery multiple to left foot Family History Mother Stroke Psychiatric illness bipolar/depression Cancer Hypertension Hyperlipidemia Heart disease Migraines Father Cancer lung Heart disease Brother Psychiatric illness depression Other CAD (coronary artery disease) Diabetes Lung disease Social History (Updated 03/23/24 @ 13:05 by Audelia Serna RN) Smoking and tobacco/nicotine status: current every day tobacco/nicotine user cigarettes [ Other cigarette details: Quarter to half pack a day] Alcohol intake: current Substance/Drug Use: current Substance/Drug use frequency: daily Data Anesthesia Cardiac Studies: Echocardiogram 10/30/21 Sestamibi Stress Test (Cardiology) 11/01/21 Cardiac Event Monitor 11/20/21
[2024-03-24] MEDS: acetaminophen 1,000 MG/100 ML PIGGYBACK 400 MG IV ×2 (06:32→17:06)
[2024-03-24] MEDS: sodium chloride 0.9% 1,000 ML 30 ML IV (06:32)
[2024-03-24] MEDS: CELEcoxib 200 mg Capsule 400 MG PO (06:32)
[2024-03-24] MEDS: gabapentin 300 mg Capsule PO (06:32)
--- NOTE | 2024-03-24 06:56 | W.PM.OPSUD ---
Surgery/Procedure H&P Update DATE OF PROCEDURE: March 24, 2024 DATE H&P PERFORMED: 03/10/24 H&P UPDATE INFORMATION: I have reviewed H&P completed within last 30 days, I have examined patient prior to procedure, No changes to prior documentation and H&P is in [facility] EMR on date indicated PLANNED PROCEDURE: Operation Date: 03/24/24 07:00 Proposed Procedures p Ismael Robot Total Knee Arthroplasty(Right) - Mely Connelly MD Related Problem List Diagnoses (1) Primary osteoarthritis of right knee:
--- NOTE | 2024-03-24 06:59 | ANES.PROC ---
Anesthesia Procedures Procedure/Date: 03/24/24 Nerve Block ^: Nerve Block 1: Main Anesthesia: spinal anesthesia block Time Out Performed: Yes Consent: requested by attending/covering physician, from patient, from other, risks and benefits reviewed and patient agrees to proceed Nerve block location: adductor canal (R) Anesthesia monitors applied: pulse oximetry, EKG, BP cuff and oxygen Nerve block position: supine Anesthetic Used: bupivacaine 0.5% (30 ml) and with decadron (4 mg) Ultrasound used to: recognize landmarks and visualize and ID femerol nerve Nerve Stimulator Used?: No Interscalene/Femoral BLK: 4 stimuplex 21 g needle used for position and inplane approach, visualize local anesthetic spread and no vascular puncture identified Injection: neg aspiration of heme Patient Tolerated Procedure: well and no complications Complications: none
[2024-03-24] MEDS: ceFAZolin 2,000 mg SDV 2000 MG IVP ×2 (08:04→16:48)
[2024-03-24] MEDS: tranexamic acid 1,000 mg/10mL SDV 1000 MG IV (08:11)
[2024-03-24] MEDS: ceFAZolin 1,000 mg SDV 2000 MG IRRIGATION (08:49)
[2024-03-24] MEDS: BUPivacaine 0.5% INJ 30 mL XX (08:53)
[2024-03-24] MEDS: BUPivacaine liposome 13.3 mg/mL SDV 20 mL 266 MG XX (08:53)
[2024-03-24] MEDS: vancomycin 1,000 MG SDV 1000 MG XX (08:56)
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
--- NOTE | 2024-03-24 11:38 | XR_ITS ---
WS: [id number] XR knee RT 3V* [id number] REASON FOR EXAM: Status post right total knee arthroplasty FINDINGS: Total right knee arthroplasty. Components of the prosthesis are intact and in proper position and alignment. No focal bony abnormality. Immediately expected postoperative soft tissue changes. XR/XR knee RT 3V* [id number] IMPRESSION: Immediately postoperative total right knee arthroplasty without abnormality.
[2024-03-24] MEDS: ondansetron 2 mg/ML SDV 2 mL 4 MG IVP (11:45)
--- NOTE | 2024-03-24 12:05 | ANE.PACU2 ---
Inpatient post-anesthesia follow up: Airway intact: Yes Vital signs: Temperature 97.6 F Pulse Rate 56 Respiratory Rate 20 Blood Pressure 124/76 Pulse Oximetry 92 Oxygen Delivery Me thod Room Air Oxygen Flow Rate 8 Fraction of Inspir ed Oxygen Hydration adequate: Yes Nausea and vomiting: No Pain level: 1 Mental status: Baseline
[2024-03-24] MEDS: CELEcoxib 200 mg Capsule PO (12:30)
[2024-03-24] MEDS: chlorhexidine gluconate 0.12% Btl 473 mL 30 ML MUCOUS MEM ×2 (12:31→20:12)
[2024-03-24] MEDS: oxyCODONE 5 mg IR Tab/Cap PO ×3 (14:12→23:01)
[2024-03-24] MEDS: water for injection-sterile 20 ML 240 ML (16:48)
[2024-03-24] MEDS: calcium carbonate 500 mg Chew Tablet 1000 MG PO (18:03)
[2024-03-24] MEDS: duloxetine 60 mg Capsule PO (18:05)
[2024-03-24] MEDS: mupirocin oint 22 gm 1 APPLIC NASAL (18:05)
[2024-03-24] MEDS: iron polysaccharide complex 150 mg Capsule PO (18:05)
[2024-03-24] MEDS: pantoprazole DR 40 mg Tablet PO (18:05)
[2024-03-24] MEDS: sennosides-docusate Tablet 2 TAB PO (18:05)
[2024-03-25] VITALS (11 sets, daily range): BP systolic 92–121; BP diastolic 58–76; PULSE 67–77; RESP 16–18; TEMP 36.9–37.1; O2SAT 95–97
[2024-03-25] MEDS: acetaminophen 1,000 MG/100 ML PIGGYBACK 400 MG IV (00:12)
[2024-03-25] MEDS: CELEcoxib 200 mg Capsule PO ×2 (00:13→12:15)
[2024-03-25] MEDS: ceFAZolin 2,000 mg SDV 2000 MG IVP ×2 (00:13→08:13)
[2024-03-25] MEDS: oxyCODONE 5 mg IR Tab/Cap PO ×3 (03:11→12:16)
[2024-03-25] MEDS: ondansetron 2 mg/ML SDV 2 mL 4 MG IVP (05:32)
[2024-03-25] MEDS: amlodipine 10 mg Tablet PO (05:33)
[2024-03-25 06:30] LABS: Basophils % 0.3 %; Eosinophils # 0.1 10^3/uL (0.0-0.8); Eosinophils % 0.9 %; Hematocrit 25.1 % (36-47); Lymphocytes # 2.7 10^3/uL (0.8-4.8); Lymphocytes % 25.2 %; Mean Corpuscular HGB Conc 32.7 g/dL (30-55); Mean Corpuscular Hemoglobin 31.3 pg (27-33); Mean Corpuscular Volume 95.8 fl (85-98); Mean Platelet Volume 9.2 fL (7.4-10.4); Monocytes # 1.4 10^3/uL (0.2-0.9); Monocytes % 13.1 %; Neutrophils # 6.38 10^3/uL (1.8-7.7); Neutrophils % 60.1 %; Nucleated Red Blood Cells % 0 %; Platelet Count 313 10^3/cmm (157-399); Red Blood Count 2.62 10^6/uL (3.85-5.65); Red Cell Distribution Width 16.1 % (12.1-15.1); White Blood Count 10.62 10^3/uL (3.29-11.43)
[2024-03-25 06:45] LABS: Blood Urea Nitrogen 27 mg/dL (6-20); Calcium 8.2 mg/dL (8.5-10.5); Carbon Dioxide 22 mmol/L (22-29); Chloride 103 mmol/L (98-107); Creatinine Clr Calc Pharmacy 61.2403; Glomerular Filtration Rate 51.4 mL/min (90-130); Glucose 103 mg/dL (65-115); Osmolality Calculated 285 mOsm/kg (285-295); Sodium 135 mmol/L (136-145)
[2024-03-25] MEDS: cholecalciferol (vitamin D3) 1,000 unit Tablet 1000 UNIT PO (08:12)
[2024-03-25] MEDS: pantoprazole DR 40 mg Tablet PO (08:12)
[2024-03-25] MEDS: duloxetine 60 mg Capsule PO (08:12)
[2024-03-25] MEDS: sennosides-docusate Tablet 2 TAB PO (08:12)
[2024-03-25] MEDS: calcium carbonate 500 mg Chew Tablet 1000 MG PO (08:12)
[2024-03-25] MEDS: aspirin 325 mg EC Tablet PO (08:12)
[2024-03-25] MEDS: potassium chloride ER 20 mEq Tablet 40 MEQ PO (08:12)
[2024-03-25] MEDS: mupirocin oint 22 gm 1 APPLIC NASAL (08:13)
[2024-03-25] MEDS: multivitamin therapeutic Tablet 1 TAB PO (08:13)
[2024-03-25] MEDS: chlorhexidine gluconate 0.12% Btl 473 mL 30 ML MUCOUS MEM (08:13)
[2024-03-25] MEDS: iron polysaccharide complex 150 mg Capsule PO (08:13)
[2024-03-25] MEDS: metoprolol tartrate 25 mg Tablet 37.5 MG PO (09:56)
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
--- NOTE | 2024-03-25 15:41 | PC.NURSE ---
Discussed all discharge instructions with patient. Follow up appointments, medications, and instucted patient over and over not to prop a pillow under knee. Patient had been instructed several times this am already and explained again why no pillow under the knee. Patient verbalized understanding. Medications were delivered to bedside.
== END 2024-03-25 14:45 | disposition home health service (06) ==
LOC: MEDSURG 11:11
PROVIDERS: Admitting Provider Specialist; PCP Family Medicine; Visit Provider Specialist
PROC: 8E0Y0CZ Robotic Assisted Procedure of Lower Extremity, Open Approach (ICD-10-PCS; CPT 27447; principal; 2024-03-24 07:00)
DX: M17.11 Unilateral primary osteoarthritis, right knee (principal); M21.161 Varus deformity, not elsewhere classified, right knee; K21.9 Gastro-esophageal reflux disease without esophagitis; E78.5 Hyperlipidemia, unspecified; Z86.73 Personal history of transient ischemic attack (TIA), and cerebral infarction without residual deficits; Z79.82 Long term (current) use of aspirin; N18.9 Chronic kidney disease, unspecified; F17.210 Nicotine dependence, cigarettes, uncomplicated
CPT/HCPCS: 20985; 27447; 36415; 51702; 73562; 80048; 85025; 97110; 97116; 97161; 97165; C1776; C9290; G0378; J0131; J0690; J1100; J1170; J1200; J2250; J2405; J2704; J2795; J3010; J3370; J3490; J7030

== ENCOUNTER 2024-03-30 14:35 | Emergency (ER) | payer MEDICARE, MEDICAID, SELFPAY ==
[2024-03-30] VITALS (11 sets, daily range): BP systolic 135–188; BP diastolic 86–119; PULSE 1–126; RESP 18–24; TEMP 36.9–37.4; O2SAT 91–100; BMI 25.8
--- NOTE | 2024-03-30 14:51 | ED_ITS ---
HPI - Nausea/Vomiting/Diarrhea 2 General: Chief complaint: Nausea/Vomiting/Diarrhea Stated complaint: n/v, rt knee pain Time Seen by Provider: 03/30/24 14:40 Source: patient and EMS Mode of arrival: EMS Limitations: no limitations History of Present Illness: 54-year-old female is very well-known to the ER has a history of cyclical vomiting syndrome patient states she had vomiting last 2 days has not been able to tolerate anything p.o. she had a recent right knee replacement last week states she has not been able to take her pain meds and is having some pain in that knee denies any fever denies any abdominal pain she denies any worse improving factors. Associated nausea: Yes Associated symtoms: Reports nausea; Denies chest pain or headache(s) Review of Systems 2 Const: Denies: fever(s), chills, body aches or change in appetite ENMT: Denies: throat pain or dental pain Card: Denies: chest pain Resp: Denies: dyspnea GI: Reports: nausea and vomiting; Denies: abdominal pain or diarrhea Musc: Reports: extremity pain; Denies: neck pain or back pain Skin/Breast: Denies: rash Neuro: Denies: headache(s) PFSH ED 2 PFSH: Medical History Primary osteoarthritis of left knee UTI (urinary tract infection) Metabolic acidosis Acute on chronic renal insufficiency Hyponatremia Cyclical vomiting, intractable Sepsis Dehydration Hypokalemia LEVY (acute kidney injury) Cannabinoid hyperemesis syndrome Marijuana abuse Acute kidney injury Hypochloremic alkalosis Cyclical vomiting, intractable Osteomyelitis Hardware complicating wound infection Septic arthritis Postoperative anemia History of cardiovascular stress test (~10/2021) History of Holter monitoring (~12/2021) Baseline sinus rhythm, 50-129 bpm with average 79 bpm, one 4 beat run asymptomatic vtach Dyslipidemia Chronic kidney disease Cellulitis of toe of left foot GERD (gastroesophageal reflux disease) History of migraine Gout Cellulitis Nonunion after arthrodesis Pain in left ankle Pain in left foot High anion gap metabolic acidosis Cyclical vomiting Hepatitis B core antibody positive Surface antibody positive, surface antigen negative, HBV DNA and hepatitis b envelope Ag negative = equals past infection. Check LFTs q 3-6 months on biologic therapy. Repeat hepatitis serology if LFTs positive. Risk of reactivation. Primary osteoarthritis of right knee Tendinopathy of right rotator cuff DDD (degenerative disc disease), lumbosacral Cyclical vomiting Alcohol withdrawal Ileus Memory loss CVA (cerebral vascular accident) incidental finding on MR done for hearing loss, located in left cerebellar region on MRI performed early 2021 Elevated troponin GI bleed nsaid induced gastritis Intermittent palpitations Frozen shoulder syndrome Cannabinoid hyperemesis syndrome History of colon polyps tubular adenomas Hypertension Anxiety Plaque psoriasis High risk medication use biologic agent for psoriasis Psoriatic arthritis Major depressive disorder, recurrent, in partial remission Post-traumatic stress disorder, chronic Cannabis dependence, uncomplicated Surgical History Hx of knee surgery bilateral Hx laparoscopic cholecystectomy History of colonoscopy (~09/2021) History of hysterectomy History of ankle surgery multiple to left ankle History of shoulder surgery History of pelvic surgery History of eye surgery Has metal around eye orbit History of toe surgery multiple to left foot Family History Mother Stroke Psychiatric illness bipolar/depression Cancer Hypertension Hyperlipidemia Heart disease Migraines Father Cancer lung Heart disease Brother Psychiatric illness depression Other CAD (coronary artery disease) Diabetes Lung disease Social History (Updated 03/23/24 @ 13:05 by Audelia Serna RN) Smoking and tobacco/nicotine status: current every day tobacco/nicotine user cigarettes [ Other cigarette details: Quarter to half pack a day] Alcohol intake: current Substance/Drug Use: current Substance/Drug use frequency: daily Physical Exam 2 Const: COMMON NORMALS: patient oriented x3 HENMT: COMMON NORMALS: normocephalic and atraumatic HEAD & SCALP: n ormocephalic and atraumatic Eye: COMMON NORMALS: Equal, round and reactive pupils present and EOMs intact bilaterally PUPIL: Yes Equal, round and reactive pupils present Neck/C-Spine: COMMON NORMALS: full ROM and supple Chest: COMMONS NORMALS: normal inspection of the chest Resp: COMMON NORMALS: normal respiratory effort, No retractions, No use of accessory muscles and clear to auscultation bilaterally AUSCULTATION: clear to auscultation bilaterally Cardio: COMMON NORMALS: regular rhythm and No murmurs present (Cardio) R ATE: tachycardic RHYTHM: regular rhythm GI: COMMON NORMALS: Normal to inspection, nondistended, normoactive bowel sounds present, Soft to palpation, non-tender and no masses PALPATION: Yes Soft to palpation Extremity: COMMON NORMALS: normal to inspection and full ROM NARRATIVE EXTREMITY EXAM: Incision to right knee is clean dry and intact no erythema Neuro: COMMON NORMALS: patient oriented x3, moves all extremities and no focal motor deficits Psych: COMMON NORMALS: mental status grossly normal, Normal thought process present and cooperative THOUGHT PROCESS: Normal thought process present Skin: COMMON NORMALS: no rashes or lesions noted and no wounds GENERAL SKIN EXAM: no rashes or lesions noted Course 2 Vital Signs: Vital signs: Vital Signs Temperature 98.5 F 03/30/24 17:28 Pulse Rate 99 03/30/24 19:15 Respiratory Rate 18 03/30/24 18:02 Blood Pressure 153/97 03/30/24 19:15 Pulse Oximetry 96 03/30/24 19:15 Oxygen Delivery Me thod Room Air 03/30/24 18:56 MDM - Nausea/Vomiting/Diarrhea Medical Decision Making Patient presents here with nausea and vomiting she has history of cyclical vomiting syndrome she felt much improved here has been able to tolerate p.o. and have an elevated white count likely reactive from her vomiting she has no signs of postop infection she stable for discharge follow-up with PCP return if worsening Medical Records I reviewed the patient's medical records. Lab Data I reviewed the patient's lab results. 03/30/24 15:12 03/30/24 15:12 Radiology Impressions Chest X-Ray 03/30/24 15:41 IMPRESSION: No acute findings. Laboratory Results WBC 16.18 10^3/uL (3.29-11.43) H 03/30/24 15:12 RBC 3.18 10^6/uL (3.85-5.65) L 03/30/24 15:12 Hgb 9.80 g/dL (11.27-16.99) L 03/30/24 15:12 Hct 28.3 % (36-47) L 03/30/24 15:12 MCV 89.0 fl (85-98) 03/30/24 15:12 MCH 30.8 pg (27-33) 03/30/24 15:12 MCHC 34.6 g/dL (30-55) 03/30/24 15:12 RDW 15.1 % (12.1-15.1) 03/30/24 15:12 Plt Count 566 10^3/cmm (157-399) H 03/30/24 15:12 MPV 9.5 fL (7.4-10.4) 03/30/24 15:12 Neut % (Auto) 83.1 % 03/30/24 15:12 Lymph % (Auto) 7.4 % 03/30/24 15:12 [place] % (Auto) 9.0 % 03/30/24 15:12 Eos % (Auto) 0.0 % 03/30/24 15:12 Baso % (Auto) 0.1 % 03/30/24 15:12 Neut # (Auto) 13.44 10^3/uL (1.8-7.7) H 03/30/24 15:12 Lymph # (Auto) 1.2 10^3/uL (0.8-4.8) 03/30/24 15:12 [place] # (Auto) 1.5 10^3/uL (0.2-0.9) H 03/30/24 15:12 Eos # (Auto) 0.0 10^3/uL (0.0-0.8) 03/30/24 15:12 Baso # (Auto) 0.0 10^3/uL (0.0-0.1) 03/30/24 15:12 Nucleated RBC % (auto) 0 % 03/30/24 15:12 Nucleated RBCs # 0.0 /100WBC 03/30/24 15:12 Sodium 129 mmol/L (136-145) L 03/30/24 15:12 Potassium 2.9 mmol/L (3.5-5.1) L 03/30/24 15:12 Chloride 84 mmol/L (98-107) L 03/30/24 15:12 Carbon Dioxide 25 mmol/L (22-29) 03/30/24 15:12 Anion Gap 22.9 (5-19) H 03/30/24 15:12 BUN 20 mg/dL (6-20) 03/30/24 15:12 Creatinine 1.3 mg/dL (0.5-0.9) H 03/30/24 15:12 GFR Calculation 42.4 mL/min (90-130) L 03/30/24 15:12 Glucose 163 mg/dL (65-115) H 03/30/24 15:12 Calculated Osmolality 274 mOsm/kg (285-295) L 03/30/24 15:12 Lactic Acid 1.9 mmol/L (0.5-2.2) 03/30/24 15:13 Calcium 9.4 mg/dL (8.5-10.5) 03/30/24 15:12 Total Bilirubin 0.7 mg/dL (0.15-1.2) 03/30/24 15:12 AST 22 U/L (0-32) 03/30/24 15:12 ALT 9 U/L (0-33) 03/30/24 15:12 Alkaline Phosphatase 113 U/L (35-105) H 03/30/24 15:12 Total Protein 7.7 g/dL (6.6-8.7) 03/30/24 15:12 Albumin 4.1 g/dL (3.5-5.2) 03/30/24 15:12 Globulin 3.6 g/dL (1.3-4.6) 03/30/24 15:12 Lipase 16 U/L (13-60) 03/30/24 15:12 Urine Color Yellow (Yellow) 03/30/24 17:20 Urine Appearance Clear (CLEAR) 03/30/24 17:20 Urine pH 7 (5-7) 03/30/24 17:20 Ur Specific [place] 1.005 (1.005-1.030) 03/30/24 17:20 Urine Protein 1+ (Negative) H 03/30/24 17:20 Urine Glucose (UA) Norm (Normal) 03/30/24 17:20 Urine Ketones 1+ (Negative) H 03/30/24 17:20 Urine Blood 2+ (Negative) H 03/30/24 17:20 Urine Nitrate Negative (Negative) 03/30/24 17:20 Urine Bilirubin Neg (Negative) 03/30/24 17:20 Urine Urobilinogen Norm mg/dL (Negative) 03/30/24 17:20 Ur Leukocyte Esterase Trace (Negative) H 03/30/24 17:20 Urine RBC 0-4 /hpf (0-2) H 03/30/24 17:20 Urine WBC 0-4 /hpf (0-5) H 03/30/24 17:20 Ur Squamous Epith Cells 0-4 /hpf (0-5) H 03/30/24 17:20 Amorphous Sediment Not Reportable 03/30/24 17:20 Urine Bacteria Trace /hpf (NONE) 03/30/24 17:20 All radiology interpretation(s) finalized by discharge Discharge Plan Discharge Patient Disposition: Home Clinical Impression: Vomiting Condition: Stable Prescriptions: New Reglan 10 mg tablet 10 mg PO Q6H PRN (Reason: nausea and vomiting) Qty: 20 0RF Reglan 10 mg tablet 10 mg PO Q6H PRN (Reason: nausea and vomiting) Qty: 20 0RF No Action red yeast rice 600 mg capsule 300 mg PO BID Rx Instructions: give with meal/snack glucosamine HCl 500 mg tablet 500 mg PO DAILY Rx Instructions: administer with a meal multivitamin Tablet 1 tab PO DAILY Cymbalta 60 mg capsule,delayed release(DR/EC) 60 mg PO BID Qty: 60 0RF Cosentyx Pen (2 Pens) 150 mg/mL pen injector 300 mg SUBCUT DIRECTED Qty: 2 4RF Rx Instructions: Start 300 mg SC q week x 5 weeks; then q 4 weeks for maintenance pantoprazole 40 mg tablet,delayed release (DR/EC) 40 mg PO BID amlodipine 10 mg tablet 10 mg PO QAM metoprolol tartrate 37.5 mg tablet 37.5 mg PO BID potassium chloride [Klor-Con M20] 20 mEq Tablet,Er Particles/Crystals 40 meq PO DAILY Qty: 12 0RF doxycycline hyclate 100 mg capsule 100 mg PO BID ondansetron HCl 4 mg tablet 4 mg PO DAILY Qty: 14 0RF aspirin 81 mg tablet,delayed release (DR/EC) 81 mg PO QPM acetaminophen 500 mg Tablet 1,000 mg PO Q8H PRN (Reason: Mild Pain Or Increase Temp) 15 Days Qty: 0 0RF aspirin 325 mg Tablet,Delayed Release (Dr/Ec) 325 mg PO DAILY 30 Days Qty: 0 0RF celecoxib 200 mg Capsule 200 mg PO 1XD 30 Days Qty: 30 0RF oxycodone 5 mg Tablet 5 - 10 mg PO Q4H PRN (Reason: Moderate To Severe Pain) 7 Days Qty: 40 0RF Discharge Orders: Discharge ED (Routine); Ordered 03/30/24 Ordered By: Rianna Schneider Referrals: Bucky Rogers MD [Primary Care Provider] - 4-7 days Discharge Diet: Advance as tolerated Discharge Activity: Resume usual activity Patient Instructions: Acute Nausea and Vomiting (ED) Coding Level of Care Code ED Rn Lab for 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
--- NOTE | 2024-03-30 15:21 | PC.NURSE ---
this nurse assessed for iv, unable to find good access. rn maame going to attempt with us iv.
[2024-03-30 15:36] LABS: Basophils % 0.1 %; Hematocrit 28.3 % (36-47); Lymphocytes # 1.2 10^3/uL (0.8-4.8); Lymphocytes % 7.4 %; Mean Corpuscular HGB Conc 34.6 g/dL (30-55); Mean Corpuscular Hemoglobin 30.8 pg (27-33); Mean Platelet Volume 9.5 fL (7.4-10.4); Monocytes # 1.5 10^3/uL (0.2-0.9); Neutrophils # 13.44 10^3/uL (1.8-7.7); Neutrophils % 83.1 %; Nucleated Red Blood Cells % 0 %; Platelet Count 566 10^3/cmm (157-399); Red Blood Count 3.18 10^6/uL (3.85-5.65); Red Cell Distribution Width 15.1 % (12.1-15.1); White Blood Count 16.18 10^3/uL (3.29-11.43)
[2024-03-30] MEDS: sodium chloride 0.9% 1,000 ML 999 ML IV (15:41)
--- NOTE | 2024-03-30 15:41 | XRR_ITS ---
PROCEDURE INFORMATION: Exam: XR Chest Exam date and time: 03/30/2024 3:50 PM Age: 54 years old Clinical indication: Other: Vomiting TECHNIQUE: Imaging protocol: Radiologic exam of the chest. Views: 1 view. COMPARISON: CR XR chest 1V portable [id number] 12/08/2023 5:04 PM FINDINGS: Lungs: Unremarkable. No consolidation. Pleural spaces: Unremarkable. No pleural effusion. No pneumothorax. Heart/Mediastinum: Unremarkable. No cardiomegaly. Bones/joints: Visualized osseous structures are intact. XR/XR chest 1V portable [id number] IMPRESSION: No acute findings.
[2024-03-30] MEDS: morphine 4 mg/mL SDV 1 mL IVP (15:42)
[2024-03-30] MEDS: metoclopramide 5 mg/mL SDV 2 mL 10 MG IVP (15:43)
[2024-03-30] MEDS: diphenhydrAMINE 50 mg/mL SDV 1mL IVP (15:47)
[2024-03-30] MEDS: acetaminophen 325 mg Tablet 650 MG PO (15:53)
[2024-03-30 15:54] LABS: Alanine Aminotransferase 9 U/L (0-33); Albumin Level 4.1 g/dL (3.5-5.2); Alkaline Phosphatase 113 U/L (35-105); Aspartate Amino Transferase 22 U/L (0-32); Blood Urea Nitrogen 20 mg/dL (6-20); Calcium 9.4 mg/dL (8.5-10.5); Carbon Dioxide 25 mmol/L (22-29); Chloride 84 mmol/L (98-107); Creatinine Clr Calc Pharmacy 49.2858; Globulin 3.6 g/dL (1.3-4.6); Glomerular Filtration Rate 42.4 mL/min (90-130); Glucose 163 mg/dL (65-115); Lipase 16 U/L (13-60); Osmolality Calculated 274 mOsm/kg (285-295); Sodium 129 mmol/L (136-145); Total Bilirubin 0.7 mg/dL (0.15-1.2); Total Protein 7.7 g/dL (6.6-8.7)
[2024-03-30 15:57] LABS: Anion Gap 22.9 (5-19)
[2024-03-30 15:58] LABS: Potassium 2.9 mmol/L (3.5-5.1)
[2024-03-30 16:25] LABS: Lactic Sepsis W/Reflex 1.9 mmol/L (0.5-2.2)
[2024-03-30] MEDS: labetalol 5 mg/mL SDV 20mL 10 MG IVP (17:01)
[2024-03-30] MEDS: haloperidol inj 5 mg/mL INJ 1 mL IVP (17:31)
[2024-03-30 17:55] LABS: Add Urine Microscopic? YES; Bilirubin Urine Neg (Negative); Blood Urine 2+ (Negative); Glucose Urine UA Norm (Normal); Ketones Urine 1+ (Negative); Leukocyte Esterase Urine Trace (Negative); Nitrate Urine Negative (Negative); Protein Urine 1+ (Negative); RBC Urine 0-4 /hpf (0-2); Specific Gravity, Urine 1.005 (1.005-1.030); Squamous Epithelial Cell Urine 0-4 /hpf (0-5); Urine Appearance Clear (CLEAR); Urine Color Yellow (Yellow); Urobilinogen Urine Norm (Negative); WBC Urine 0-4 /hpf (0-5); pH Urine 7 (5-7)
[2024-03-30 17:56] LABS: Add Urine Culture? No; Bacteria Urine TRACE /hpf
[2024-03-30] MEDS: LORazepam 2 mg/mL INJ 1 mL 1 MG IVP (18:51)
== END 2024-03-30 19:17 | disposition home or self-care (01) ==
PROVIDERS: Emergency Provider Emergency Medicine; PCP Family Medicine
DX: R11.11 Vomiting without nausea (principal); Z79.82 Long term (current) use of aspirin; F17.210 Nicotine dependence, cigarettes, uncomplicated; I12.9 Hypertensive chronic kidney disease with stage 1 through stage 4 chronic kidney disease, or unspecified chronic kidney disease; N18.9 Chronic kidney disease, unspecified; E78.5 Hyperlipidemia, unspecified; Z86.19 Personal history of other infectious and parasitic diseases; Z86.73 Personal history of transient ischemic attack (TIA), and cerebral infarction without residual deficits
CPT/HCPCS: 36415; 71045; 80053; 81001; 83605; 83690; 85025; 96361; 96374; 96375; 99284; J1200; J1630; J2060; J2270; J2765; J3490; J7030

== ENCOUNTER → 2024-04-13 10:20 | Outpatient (BNVA) | payer MEDICARE, MEDICAID, SELFPAY | PROVIDERS: PCP Family Medicine; Visit Provider Nurse Practitioner | DX: Z96.651 Presence of right artificial knee joint (principal) | CPT/HCPCS: 73560; 73565; 99024 ==

== ENCOUNTER → 2024-04-15 14:49 | Outpatient (BNVA) | payer MEDICARE, MEDICAID, SELFPAY | PROVIDERS: PCP Family Medicine; Visit Provider Nurse Practitioner Family | DX: Z01.89 Encounter for other specified special examinations (principal) | CPT/HCPCS: 36415; 86480; 86705; 86706; 86709; 86803; 87340; 87806 ==

== ENCOUNTER 2024-09-02 14:24 | Emergency (ER) | payer MEDICARE, MEDICAID, SELFPAY ==
[2024-09-02 15:37] VITALS: BP 131/81; PULSE 65; RESP 16; TEMP 36.4; O2SAT 100; BMI 27.4
[2024-09-02 16:31] VITALS: BP 131/81; PULSE 77; RESP 16; O2SAT 99
--- NOTE | 2024-09-02 22:03 | ED_ITS ---
HPI - Ear Problem General: Chief complaint: Ear Stated complaint: rt ear pain Time Seen by Provider: 09/02/24 15:33 Source: patient Mode of arrival: ambulatory Limitations: no limitations History of Present Illness: Patient is a 54-year-old female presenting to the emergency department with ongoing right ear pain that is been bothering her for few days now. She initially went to urgent care was prescribed Bactrim and steroids for otitis media, states pain has not gotten better and she is starting have drainage of the right ear. Denies any hearing changes, high fevers, mastoid pain or redness, or other symptoms. MD Complaint: ear pain and ear discharge Location: right ear Duration: constant Severity: moderate Relieving factors: nothing Exacerbating factors: nothing Discharge from ear: yes - clear Associated symptoms: Reports ear or mastoid pain; Denies fever(s), headache(s) or neck pain Treatment prior to arrival: other (Oral antibiotics) Related Data Home Medications Medication Instructions Recorded Confirmed pantoprazole 40 mg tablet,delayed 40 mg PO BID 09/04/21 08/29/24 release aspirin 81 mg tablet,delayed 81 mg PO QPM 04/09/22 08/29/24 release amlodipine 10 mg tablet 10 mg PO QAM 05/14/23 08/29/24 metoprolol tartrate 37.5 mg tablet 37.5 mg PO BID 08/20/23 08/29/24 glucosamine HCl 500 mg tablet 500 mg PO DAILY 12/03/23 08/29/24 multivitamin 1 tab PO DAILY 12/03/23 08/29/24 red yeast rice 600 mg capsule 300 mg PO BID 12/03/23 08/29/24 Previous Rx's Medication Instructions Recorded duloxetine 60 mg capsule,delayed 60 mg PO BID #60 caps 02/15/20 release (Cymbalta) secukinumab 150 mg/mL subcutaneous 300 mg (2 mL) SUBCUT DIRECTED 09/30/23 pen injector (Cosentyx Pen 300 #2 mL mg/2 Pens () potassium chloride 20 mEq 40 meq (2 x 20 mEq) PO DAILY #12 12/31/23 tablet,extended tabs release(part/cryst) (Klor-Con M) ondansetron HCl 4 mg tablet 4 mg PO DAILY #14 tabs 02/27/24 prednisone 20 mg tablet 40 mg (2 x 20 mg) PO DAILY 3 days 08/29/24 #6 tabs sulfamethoxazole 800 1 tab PO BID #14 tabs 08/29/24 mg-trimethoprim 160 mg tablet (Bactrim DS) ciprofloxacin 0.3 %-dexamethasone 4 drp otic (ear) BID 7 days #7.5 mL 09/02/24 0.1 % ear drops,suspension Allergies Allergy/AdvReac Type Severity Reaction Status Date / Time clindamycin Allergy Severe Unconscious Verified 08/29/24 12:41 adhesive tape Allergy Intermediate rash, red Verified 08/29/24 12:41 codeine Allergy Unknown ALGY-Anaphy Verified 08/29/24 12:41 laxis paroxetine [From Paxil] Allergy Unconscious Verified 08/29/24 12:41 Review of Systems General: Reports: 10 or more systems reviewed and unremarkable except in HPI and below Const: Denies: fever(s), chills or fatigue Eyes: Denies: change in vision ENMT: Reports: ear or mastoid pain and ear discharge; Denies: throat pain or nasal discharge Card: Denies: chest pain, palpitations, swelling of feet/ankles or lightheadedness Resp: Denies: dyspnea, productive cough or wheezing GI: Denies: abdominal pain, nausea, vomiting, diarrhea or constipation : Denies: flank pain, difficulty voiding, dysuria or urinary frequency Musc: Denies: neck pain, back pain or joint pain Skin/Breast: Denies: rash Neuro: Denies: headache(s), numbness in extremities or weakness in extremities PFSH ED PFSH: Medical History Primary osteoarthritis of left knee UTI (urinary tract infection) Metabolic acidosis Acute on chronic renal insufficiency Hyponatremia Cyclical vomiting, intractable Sepsis Dehydration Hypokalemia LEVY (acute kidney injury) Cannabinoid hyperemesis syndrome Marijuana abuse Acute kidney injury Hypochloremic alkalosis Cyclical vomiting, intractable Osteomyelitis Hardware complicating wound infection Septic arthritis Postoperative anemia History of cardiovascular stress test (~10/2021) History of Holter monitoring (~12/2021) Baseline sinus rhythm, 50-129 bpm with average 79 bpm, one 4 beat run asymptomatic vtach Dyslipidemia Chronic kidney disease Cellulitis of toe of left foot GERD (gastroesophageal reflux disease) History of migraine Gout Cellulitis Nonunion after arthrodesis Pain in left ankle Pain in left foot High anion gap metabolic acidosis Cyclical vomiting Hepatitis B core antibody positive Surface antibody positive, surface antigen negative, HBV DNA and hepatitis b envelope Ag negative = equals past infection. Check LFTs q 3-6 months on biologic therapy. Repeat hepatitis serology if LFTs positive. Risk of reactivation. Primary osteoarthritis of right knee Tendinopathy of right rotator cuff DDD (degenerative disc disease), lumbosacral Cyclical vomiting Alcohol withdrawal Ileus Memory loss CVA (cerebral vascular accident) incidental finding on MR done for hearing loss, located in left cerebellar region on MRI performed early 2021 Elevated troponin GI bleed nsaid induced gastritis Intermittent palpitations Frozen shoulder syndrome Cannabinoid hyperemesis syndrome History of colon polyps tubular adenomas Hypertension Anxiety Plaque psoriasis High risk medication use biologic agent for psoriasis Psoriatic arthritis Major depressive disorder, recurrent, in partial remission Post-traumatic stress disorder, chronic Cannabis dependence, uncomplicated Surgical History Hx of knee surgery bilateral Hx laparoscopic cholecystectomy History of colonoscopy (~09/2021) History of hysterectomy History of ankle surgery multiple to left ankle History of shoulder surgery History of pelvic surgery History of eye surgery Has metal around eye orbit History of toe surgery multiple to left foot Family History Mother Stroke Psychiatric illness bipolar/depression Cancer Hypertension Hyperlipidemia Heart disease Migraines Father Cancer lung Heart disease Brother Psychiatric illness depression Other CAD (coronary artery disease) Diabetes Lung disease Social History Smoking and tobacco/nicotine status: current every day tobacco/nicotine user cigarettes [ Other cigarette details: Quarter to half pack a day] Alcohol intake: current Substance/Drug Use: current Substance/Drug use frequency: daily Physical Exam Const: COMMON NORMALS: no acute distress and healthy appearing GENERAL APPEARANCE: cooperative, comfortable and well developed HENMT: COMMON NORMALS: normocephalic, atraumatic, hearing grossly normal bilaterally, external ears normal, Normal external nose present and Normal nasal mucous membranes and turbinates present HEAD & SCALP: normal to inspection, normocephalic and atraumatic FACE & SINUS: normal facial exam and sinuses nontender NOSE: Normal external nose present, Normal nares present, No nasal polyps present and Normal nasal mucous membranes and turbinates present EXTERNAL EAR: Yes external ears normal and Yes mastoids normal EXTERNAL AUDITORY CANAL: Abnormal EAC present EAC laterality: right Details: erythema and otic discharge TYMPANIC MEMBRANE: TM abnormal TM laterality: right Details: erythematous OTHER: No mastoid bone tenderness or redness Eye: COMMON NORMALS: EOMs intact bilaterally, conjunctivae normal and normal visual miguel by confrontation GENERAL EYE: appearance normal, both eyes and all related structures CONJUNCTIVA: Yes conjunctivae normal Neck/C-Spine: COMMON NORMALS: full ROM, no lymphadenopathy, supple and no meningeal signs GENERAL: Yes normal visual inspection Chest: COMMONS NORMALS: normal inspection of the chest Resp: COMMON NORMALS: normal respiratory effort and clear to auscultation bilaterally EFFORT & INSPECTION: Yes able to speak in complete sentences AUSCULTATION: clear to auscultation bilaterally Cardio: COMMON NORMALS: regular rate, regular rhythm, S1 normal heart sound present and S2 normal heart sound present RATE: regular rate RHYTHM: regular rhythm HEART SOUNDS: S1 normal heart sound present, S2 normal heart sound present, no gallops, no murmurs and no rubs Extremity: COMMON NORMALS: normal to inspection, full ROM and capillary refill normal Neuro: MENINGEAL SIGNS: Yes no meningeal signs Skin: COMMON NORMALS: no rashes or lesions noted GENERAL SKIN EXAM: no rashes or lesions noted Course Vital Signs: Vital signs: Vital Signs Temperature 97.6 F 09/02/24 15:37 Pulse Rate 77 09/02/24 16:31 Respiratory Rate 16 09/02/24 16:31 Blood Pressure 131/81 09/02/24 16:31 Pulse Oximetry 99 09/02/24 16:31 Oxygen Delivery Me thod Room Air 09/02/24 15:37 MDM - Ear Medical Decision Making Physical exam shows clinical signs of otitis externa, there was discharge and redness of the external auditory canal on the right side, tympanic membrane was red but did not appear significant and most likely is improving. Due to the external nature, will treat with Ciprodex. There were no clinical signs or symptoms of mastoiditis, however did instruct patient to return with any signs of this, she agrees and will continue finishing out her Bactrim and prednisone. No radiology studies performed this visit Discharge Plan Discharge Patient Disposition: Home Clinical Impression: Otitis externa Condition: Stable Prescriptions: New ciprofloxacin-dexamethasone 0.3-0.1 % drops,suspension 4 drp otic (ear) BID 7 Days Qty: 7.5 0RF No Action red yeast rice 600 mg capsule 300 mg PO BID Rx Instructions: give with meal/snack glucosamine HCl 500 mg tablet 500 mg PO DAILY Rx Instructions: administer with a meal multivitamin Tablet 1 tab PO DAILY sulfamethoxazole-trimethoprim [Bactrim DS] 800-160 mg tablet 1 tab PO BID Qty: 14 0RF prednisone 20 mg tablet 40 mg PO DAILY 3 Days Qty: 6 0RF Cymbalta 60 mg capsule,delayed release(DR/EC) 60 mg PO BID Qty: 60 0RF Cosentyx Pen (2 Pens) 150 mg/mL pen injector 300 mg SUBCUT DIRECTED Qty: 2 4RF Rx Instructions: Start 300 mg SC q week x 5 weeks; then q 4 weeks for maintenance pantoprazole 40 mg tablet,delayed release (DR/EC) 40 mg PO BID amlodipine 10 mg tablet 10 mg PO QAM metoprolol tartrate 37.5 mg tablet 37.5 mg PO BID potassium chloride [Klor-Con M20] 20 mEq Tablet,Er Particles/Crystals 40 meq PO DAILY Qty: 12 0RF ondansetron HCl 4 mg tablet 4 mg PO DAILY Qty: 14 0RF aspirin 81 mg tablet,delayed release (DR/EC) 81 mg PO QPM Discharge Orders: Discharge ED (Routine); Ordered 09/02/24 Ordered By: Blair Wyatt Referrals: Bucky Rogers MD [Primary Care Provider] - Patient Instructions: Otitis Externa - Adult, Ear Infection (ED) Activity Restrictions/Additional Instructions: Please take Ciprodex as prescribed. Tylenol and ibuprofen for pain. If you d evelop any high fevers, worsening pain or redness behind your right ear, or other concerning symptoms please return to the emergency department for further evaluation as we discussed. You may continue finishing out your prescription for Bactrim. Coding Level of Care Code ED Office Engineer for 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
== END 2024-09-02 16:31 | disposition home or self-care (01) ==
PROVIDERS: Emergency Provider Physician Assistant; PCP Family Medicine
DX: H60.91 Unspecified otitis externa, right ear (principal); Z79.82 Long term (current) use of aspirin; F17.210 Nicotine dependence, cigarettes, uncomplicated; Z86.73 Personal history of transient ischemic attack (TIA), and cerebral infarction without residual deficits; E78.5 Hyperlipidemia, unspecified
CPT/HCPCS: 99283

== ENCOUNTER → 2024-09-10 13:14 | Outpatient (BNVA) | payer MEDICARE, MEDICAID, SELFPAY | PROVIDERS: PCP Family Medicine; Visit Provider Dermatology | DX: L40.0 Psoriasis vulgaris (principal) | CPT/HCPCS: 99214 ==

== ENCOUNTER 2024-10-03 01:36 | Emergency (ER) | payer MEDICARE, MEDICAID, SELFPAY ==
[2024-10-03] VITALS (25 sets, daily range): BP systolic 123–200; BP diastolic 85–140; PULSE 67–95; RESP 18; TEMP 36.4; O2SAT 90–100; BMI 22.6
--- NOTE | 2024-10-03 01:43 | W.ED.AMS ---
HPI - Altered Mental Status General: Chief Complaint: Altered Mental Status Stated Complaint: AMS Time Seen by Provider: 10/03/24 01:47 History of Present Illness: Patient is to the ER by EMS with altered mental status. Last known well was about 2 days ago. Patient's son from home and found her altered. After some hesitation patient can answer some questions appropriately however it appears she is confused and does not answer all questions appropriately. She also becomes more sedate in between questions if not stimulated. He says in the past she has been like this before and her potassium has been low. She has been admitted for acute hypokalemia. Patient does have a history of marijuana and alcohol abuse. Related Data Home Medications Medication Instructions Recorded Confirmed pantoprazole 40 mg tablet,delayed 40 mg PO BID 09/04/21 08/29/24 release aspirin 81 mg tablet,delayed 81 mg PO QPM 04/09/22 08/29/24 release amlodipine 10 mg tablet 10 mg PO QAM 05/14/23 08/29/24 metoprolol tartrate 37.5 mg tablet 37.5 mg PO BID 08/20/23 08/29/24 glucosamine HCl 500 mg tablet 500 mg PO DAILY 12/03/23 08/29/24 multivitamin 1 tab PO DAILY 12/03/23 08/29/24 red yeast rice 600 mg capsule 300 mg PO BID 12/03/23 08/29/24 Previous Rx's Medication Instructions Recorded duloxetine 60 mg capsule,delayed 60 mg PO BID #60 caps 02/15/20 release (Cymbalta) secukinumab 150 mg/mL subcutaneous 300 mg (2 mL) SUBCUT DIRECTED 09/30/23 pen injector (Cosentyx Pen 300 #2 mL mg/2 Pens () potassium chloride 20 mEq 40 meq (2 x 20 mEq) PO DAILY #12 12/31/23 tablet,extended tabs release(part/cryst) (Klor-Con M) ondansetron HCl 4 mg tablet 4 mg PO DAILY #14 tabs 02/27/24 prednisone 20 mg tablet 40 mg (2 x 20 mg) PO DAILY 3 days 08/29/24 #6 tabs sulfamethoxazole 800 1 tab PO BID #14 tabs 08/29/24 mg-trimethoprim 160 mg tablet (Bactrim DS) potassium chloride 20 mEq 20 meq PO DAILY #7 tabs 10/03/24 tablet,extended release Allergies Allergy/AdvReac Type Severity Reaction Status Date / Time clindamycin Allergy Severe Unconscious Verified 08/29/24 12:41 adhesive tape Allergy Intermediate rash, red Verified 08/29/24 12:41 codeine Allergy Unknown ALGY-Anaphy Verified 08/29/24 12:41 laxis paroxetine [From Paxil] Allergy Unconscious Verified 08/29/24 12:41 Review of Systems General: Reports: 10 or more systems reviewed and unremarkable except in HPI and below PFSH ED PFSH: Medical History Primary osteoarthritis of left knee UTI (urinary tract infection) Metabolic acidosis Acute on chronic renal insufficiency Hyponatremia Cyclical vomiting, intractable Sepsis Dehydration Hypokalemia LEVY (acute kidney injury) Cannabinoid hyperemesis syndrome Marijuana abuse Acute kidney injury Hypochloremic alkalosis Cyclical vomiting, intractable Osteomyelitis Hardware complicating wound infection Septic arthritis Postoperative anemia History of cardiovascular stress test (~10/2021) History of Holter monitoring (~12/2021) Baseline sinus rhythm, 50-129 bpm with average 79 bpm, one 4 beat run asymptomatic vtach Dyslipidemia Chronic kidney disease Cellulitis of toe of left foot GERD (gastroesophageal reflux disease) History of migraine Gout Cellulitis Nonunion after arthrodesis Pain in left ankle Pain in left foot High anion gap metabolic acidosis Cyclical vomiting Hepatitis B core antibody positive Surface antibody positive, surface antigen negative, HBV DNA and hepatitis b envelope Ag negative = equals past infection. Check LFTs q 3-6 months on biologic therapy. Repeat hepatitis serology if LFTs positive. Risk of reactivation. Primary osteoarthritis of right knee Tendinopathy of right rotator cuff DDD (degenerative disc disease), lumbosacral Cyclical vomiting Alcohol withdrawal Ileus Memory loss CVA (cerebral vascular accident) incidental finding on MR done for hearing loss, located in left cerebellar region on MRI performed early 2021 Elevated troponin GI bleed nsaid induced gastritis Intermittent palpitations Frozen shoulder syndrome Cannabinoid hyperemesis syndrome History of colon polyps tubular adenomas Hypertension Anxiety Plaque psoriasis High risk medication use biologic agent for psoriasis Psoriatic arthritis Major depressive disorder, recurrent, in partial remission Post-traumatic stress disorder, chronic Cannabis dependence, uncomplicated Surgical History Hx of knee surgery bilateral Hx laparoscopic cholecystectomy History of colonoscopy (~09/2021) History of hysterectomy History of ankle surgery multiple to left ankle History of shoulder surgery History of pelvic surgery History of eye surgery Has metal around eye orbit History of toe surgery multiple to left foot Family History Mother Stroke Psychiatric illness bipolar/depression Cancer Hypertension Hyperlipidemia Heart disease Migraines Father Cancer lung Heart disease Brother Psychiatric illness depression Other CAD (coronary artery disease) Diabetes Lung disease Social History Smoking and tobacco/nicotine status: former use of tobacco/nicotine Alcohol intake: current Substance/Drug Use: current Substance/Drug use frequency: daily Physical Exam Const: COMMON NORMALS: no acute distress, average body habitus, healthy appearing, alert and well nourished HENMT: COMMON NORMALS: normocephalic, atraumatic, hearing grossly normal bilaterally, external ears normal, Normal external nose present and moist oral mucous membranes HEAD & SCALP: normocephalic and atraumatic NOSE: Normal external nose present EXTERNAL EAR: Yes external ears normal Neck/C-Spine: COMMON NORMALS: no JVD Chest: COMMONS NORMALS: normal inspection of the chest and normal palpation of entire chest wall Resp: COMMON NORMALS: normal respiratory effort, No retractions, No use of accessory muscles and clear to auscultation bilaterally AUSCULTATION: clear to auscultation bilaterally Cardio: COMMON NORMALS: no JVD, regular rate, regular rhythm, S1 normal heart sound present, S2 normal heart sound present, No gallops present (Cardio), No clicks present (Cardio) and No murmurs present (Cardio) RATE: regular rate RHYTHM: regular rhythm HEART SOUNDS: S1 normal heart sound present and S2 normal heart sound present GI: COMMON NORMALS: Normal to inspection, nondistended, normoactive bowel sounds present, Soft to palpation, non-tender, No hepatosplenomegaly present and no masses PALPATION: Yes Soft to palpation and Yes No hepatosplenomegaly present Neuro: SENSORIUM/ORIENTATION: Yes alert Course Vital Signs: Vital signs: Vital Signs Temperature 97.5 F L 10/03/24 01:40 Pulse Rate 75 10/03/24 04:00 Respiratory Rate 18 10/03/24 01:40 Blood Pressure 135/85 10/03/24 05:15 Pulse Oximetry 90 10/03/24 05:15 Oxygen Delivery Me thod Room Air 10/03/24 01:40 MDM - Altered Mental Status Medical Decision Making Lab work revealed potassium 3.2, influenza A positive, EtOH negative, otherwise unremarkable during her stay patient did wake up and would talk and answer questions we decided to be not very social and mean and hateful. Patient be discharged home. Medical Records I reviewed the patient's medical records. Lab Data I reviewed the patient's lab results. 10/03/24 02:03 10/03/24 02:03 Laboratory Results WBC 9.50 10^3/uL (3.29-11.43) 10/03/24 02:03 RBC 4.71 10^6/uL (3.85-5.65) 10/03/24 02:03 Hgb 14.20 g/dL (11.27-16.99) 10/03/24 02:03 Hct 43.0 % (36-47) 10/03/24 02:03 MCV 91.3 fl (85-98) 10/03/24 02:03 MCH 30.1 pg (27-33) 10/03/24 02:03 MCHC 33.0 g/dL (30-55) 10/03/24 02:03 RDW 14.3 % (12.1-15.1) 10/03/24 02:03 Plt Count 377 10^3/cmm (157-399) 10/03/24 02:03 MPV 9.6 fL (7.4-10.4) 10/03/24 02:03 Neut % (Auto) 87.5 % 10/03/24 02:03 Lymph % (Auto) 8.1 % 10/03/24 02:03 Clay % (Auto) 3.9 % 10/03/24 02:03 Eos % (Auto) 0.1 % 10/03/24 02:03 Baso % (Auto) 0.1 % 10/03/24 02:03 Neut # (Auto) 8.31 10^3/uL (1.8-7.7) H 10/03/24 02:03 Lymph # (Auto) 0.8 10^3/uL (0.8-4.8) 10/03/24 02:03 Clay # (Auto) 0.4 10^3/uL (0.2-0.9) 10/03/24 02:03 Eos # (Auto) 0.0 10^3/uL (0.0-0.8) 10/03/24 02:03 Baso # (Auto) 0.0 10^3/uL (0.0-0.1) 10/03/24 02:03 Nucleated RBC % (auto) 0 % 10/03/24 02:03 Nucleated RBCs # 0.0 /100WBC 10/03/24 02:03 Sodium 133 mmol/L (136-145) L 10/03/24 02:03 Potassium 3.2 mmol/L (3.5-5.1) L 10/03/24 02:03 Chloride 94 mmol/L (98-107) L 10/03/24 02:03 Carbon Dioxide 21 mmol/L (22-29) L 10/03/24 02:03 Anion Gap 21.2 (5-19) H 10/03/24 02:03 BUN 11 mg/dL (6-20) 10/03/24 02:03 Creatinine 0.6 mg/dL (0.5-0.9) 10/03/24 02:03 GFR Calculation 103.4 mL/min (90-130) 10/03/24 02:03 Glucose 158 mg/dL (65-115) H 10/03/24 02:03 Calculated Osmolality 279 mOsm/kg (285-295) L 10/03/24 02:03 Lactic Acid 1.3 mmol/L (0.5-2.2) 10/03/24 02:03 Calcium 9.9 mg/dL (8.5-10.5) 10/03/24 02:03 Magnesium 1.9 mg/dL (1.7-2.3) 10/03/24 02:03 Total Bilirubin 0.2 mg/dL (0.15-1.2) 10/03/24 02:03 AST 32 U/L (0-32) 10/03/24 02:03 ALT 23 U/L (0-33) 10/03/24 02:03 Alkaline Phosphatase 153 U/L (35-105) H 10/03/24 02:03 Total Protein 8.6 g/dL (6.6-8.7) 10/03/24 02:03 Albumin 4.8 g/dL (3.5-5.2) 10/03/24 02:03 Globulin 3.8 g/dL (1.3-4.6) 10/03/24 02:03 Procalcitonin 0.05 ng/mL (0-0.5) 10/03/24 02:03 Ethyl Alcohol < 10 mg/dL (0-10) 10/03/24 02:03 Coronavirus (PCR) Negative (Negative) 10/03/24 04:08 Influenza A (PCR) Positive (Negative) 10/03/24 04:08 Influenza Type B (PCR) Negative (Negative) 10/03/24 04:08 RSV (PCR) Negative (Negative) 10/03/24 04:08 All radiology interpretation(s) finalized by discharge Discharge Plan Discharge Patient Disposition: Home Clinical Impression: Influenza A, Acute hypokalemia Condition: Stable Prescriptions: New potassium chloride 20 mEq tablet extended release 20 meq PO DAILY Qty: 7 0RF No Action red yeast rice 600 mg capsule 300 mg PO BID Rx Instructions: give with meal/snack glucosamine HCl 500 mg tablet 500 mg PO DAILY Rx Instructions: administer with a meal multivitamin Tablet 1 tab PO DAILY sulfamethoxazole-trimethoprim [Bactrim DS] 800-160 mg tablet 1 tab PO BID Qty: 14 0RF prednisone 20 mg tablet 40 mg PO DAILY 3 Days Qty: 6 0RF Cymbalta 60 mg capsule,delayed release(DR/EC) 60 mg PO BID Qty: 60 0RF Cosentyx Pen (2 Pens) 150 mg/mL pen injector 300 mg SUBCUT DIRECTED Qty: 2 4RF Rx Instructions: Start 300 mg SC q week x 5 weeks; then q 4 weeks for maintenance pantoprazole 40 mg tablet,delayed release (DR/EC) 40 mg PO BID amlodipine 10 mg tablet 10 mg PO QAM metoprolol tartrate 37.5 mg tablet 37.5 mg PO BID potassium chloride [Klor-Con M20] 20 mEq Tablet,Er Particles/Crystals 40 meq PO DAILY Qty: 12 0RF ondansetron HCl 4 mg tablet 4 mg PO DAILY Qty: 14 0RF aspirin 81 mg tablet,delayed release (DR/EC) 81 mg PO QPM Discharge Orders: Discharge ED (Routine); Ordered 10/03/24 Ordered By: Mainor Rouse Referrals: Bucky Rogers MD [Primary Care Provider] - 1 week Patient Instructions: Influenza (ED), Hypokalemia Activity Restrictions/Additional Instructions: Thank you for choosing [facility] for your healthcare needs today. Please realize that you were seen in the emergency department and that we are providing you with an emergency medical screening exam and this may not be a complete and all exclusive of all testing and/or medical workup we may need to determine your element or severity of your illness. It is very important that you follow-up as instructed with your primary care provider or specialist for the additional evaluation and to discuss your medical treatment plan. You may return to the emergency department should you have concerns or if your condition changes or worsens in any way. Coding Level of Care Code ED Licensed Physical Therapist Assistant for 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
[2024-10-03 02:10] LABS: Basophils % 0.1 %; Eosinophils % 0.1 %; Lymphocytes # 0.8 10^3/uL (0.8-4.8); Lymphocytes % 8.1 %; Mean Corpuscular Hemoglobin 30.1 pg (27-33); Mean Corpuscular Volume 91.3 fl (85-98); Mean Platelet Volume 9.6 fL (7.4-10.4); Monocytes # 0.4 10^3/uL (0.2-0.9); Monocytes % 3.9 %; Neutrophils # 8.31 10^3/uL (1.8-7.7); Neutrophils % 87.5 %; Nucleated Red Blood Cells % 0 %; Platelet Count 377 10^3/cmm (157-399); Red Blood Count 4.71 10^6/uL (3.85-5.65); Red Cell Distribution Width 14.3 % (12.1-15.1)
[2024-10-03 02:31] LABS: Alanine Aminotransferase 23 U/L (0-33); Albumin Level 4.8 g/dL (3.5-5.2); Alkaline Phosphatase 153 U/L (35-105); Anion Gap 21.2 (5-19); Aspartate Amino Transferase 32 U/L (0-32); Blood Urea Nitrogen 11 mg/dL (6-20); Calcium 9.9 mg/dL (8.5-10.5); Carbon Dioxide 21 mmol/L (22-29); Chloride 94 mmol/L (98-107); Creatinine Clr Calc Pharmacy 100.7884; Globulin 3.8 g/dL (1.3-4.6); Glomerular Filtration Rate 103.4 mL/min (90-130); Glucose 158 mg/dL (65-115); Lactic Sepsis W/Reflex 1.3 mmol/L (0.5-2.2); Magnesium 1.9 mg/dL (1.7-2.3); Osmolality Calculated 279 mOsm/kg (285-295); Potassium 3.2 mmol/L (3.5-5.1); Sodium 133 mmol/L (136-145); Total Bilirubin 0.2 mg/dL (0.15-1.2); Total Protein 8.6 g/dL (6.6-8.7)
[2024-10-03 02:38] LABS: Procalcitonin 0.05 ng/mL (0-0.5)
[2024-10-03 02:43] LABS: Alcohol Level < 10 mg/dL (0-10)
--- NOTE | 2024-10-03 03:00 | PC.NURSE ---
Patient refusing bedside commode to give urine sample. Patient also refusing a straight cath. Dr. Rouse notified with no new orders.
[2024-10-03] MEDS: ketorolac 60 mg/2 mL INJ IM (03:31)
[2024-10-03] MEDS: LORazepam 2 mg/mL INJ 1 mL 1 MG IM (03:32)
[2024-10-03 05:38] LABS: Covid PCR NEGATIVE (Negative); Influenza A POSITIVE (Negative); Influenza B NEGATIVE (Negative); Respiratory Syncytial Virus Ce NEGATIVE (Negative)
[2024-10-03] MEDS: cloNIDine 0.1 mg Tablet 0.2 MG PO (05:58)
--- NOTE | 2024-10-03 07:01 | PC.NURSE ---
0650: Patient states I'm not leaving, I am sick . Dr. Rider notified and medications order for nausea per OCT.
[2024-10-03] MEDS: prochlorperazine 10 mg/2 mL Inj IM (07:03)
--- NOTE | 2024-10-03 07:09 | PC.NURSE ---
0558: 0.[address] Rouse notified with no new orders.
--- NOTE | 2024-10-03 07:12 | PC.NURSE ---
Patient is yelling in room and tells this nurse that she does not want to leave and go home. Security called. Patient able to stand and sit in wheelchair without assistance. Patient wheeled out to ER lobby by RN and security.
== END 2024-10-03 07:15 | disposition home or self-care (01) ==
PROVIDERS: Emergency Medicine; Emergency Provider Emergency Medicine; PCP Family Medicine
DX: J10.1 Influenza due to other identified influenza virus with other respiratory manifestations (principal); Z11.52 Encounter for screening for COVID-19; E87.6 Hypokalemia; Z79.82 Long term (current) use of aspirin; Z87.891 Personal history of nicotine dependence; Z86.73 Personal history of transient ischemic attack (TIA), and cerebral infarction without residual deficits; E78.5 Hyperlipidemia, unspecified
CPT/HCPCS: 36415; 80053; 80307; 83605; 83735; 84145; 85025; 87040; 87637; 96372; 99284; J0780; J1885; J2060

== ENCOUNTER 2024-10-04 12:54 | Emergency (ER) | payer MEDICARE, MEDICAID, SELFPAY ==
[2024-10-04 13:04] VITALS: BP 198/124; PULSE 92; RESP 19; TEMP 36.7; O2SAT 94
--- NOTE | 2024-10-04 13:13 | W.ED.NAVMDI ---
HPI - Nausea/Vomiting/Diarrhea General: Chief complaint: Nausea/Vomiting/Diarrhea Stated complaint: AMS Time Seen by Provider: 10/04/24 12:57 History of Present Illness: 54-year-old female with a history of cyclic vomiting, cannabinoid hyperemesis syndrome, alcohol abuse, hypertension and anxiety who presents emergency room by ambulance with report of altered mental status. Apparently she would not speak to anyone. Upon arrival here she does speak to me. 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 I asked her if she is doing any drugs and she says no. I asked her when she last did and she says 2 days ago. No obvious focal motor deficits. She may have some nausea so I gave some meds for that. She was here yesterday and had a full workup and was discharged and when she was discharged she refused to leave and security had to have her escorted out. Related Data Home Medications Medication Instructions Recorded Confirmed pantoprazole 40 mg tablet,delayed 40 mg PO BID 09/04/21 08/29/24 release aspirin 81 mg tablet,delayed 81 mg PO QPM 04/09/22 08/29/24 release amlodipine 10 mg tablet 10 mg PO QAM 05/14/23 08/29/24 metoprolol tartrate 37.5 mg tablet 37.5 mg PO BID 08/20/23 08/29/24 glucosamine HCl 500 mg tablet 500 mg PO DAILY 12/03/23 08/29/24 multivitamin 1 tab PO DAILY 12/03/23 08/29/24 red yeast rice 600 mg capsule 300 mg PO BID 12/03/23 08/29/24 Previous Rx's Medication Instructions Recorded duloxetine 60 mg capsule,delayed 60 mg PO BID #60 caps 02/15/20 release (Cymbalta) secukinumab 150 mg/mL subcutaneous 300 mg (2 mL) SUBCUT DIRECTED 09/30/23 pen injector (Cosentyx Pen 300 #2 mL mg/2 Pens () potassium chloride 20 mEq 40 meq (2 x 20 mEq) PO DAILY #12 12/31/23 tablet,extended tabs release(part/cryst) (Klor-Con M) ondansetron HCl 4 mg tablet 4 mg PO DAILY #14 tabs 02/27/24 prednisone 20 mg tablet 40 mg (2 x 20 mg) PO DAILY 3 days 08/29/24 #6 tabs sulfamethoxazole 800 1 tab PO BID #14 tabs 08/29/24 mg-trimethoprim 160 mg tablet (Bactrim DS) potassium chloride 20 mEq 20 meq PO DAILY #7 tabs 10/03/24 tablet,extended release Allergies Allergy/AdvReac Type Severity Reaction Status Date / Time clindamycin Allergy Severe Unconscious Verified 08/29/24 12:41 adhesive tape Allergy Intermediate rash, red Verified 08/29/24 12:41 codeine Allergy Unknown ALGY-Anaphy Verified 08/29/24 12:41 laxis paroxetine [From Paxil] Allergy Unconscious Verified 08/29/24 12:41 Review of Systems Narrative: Constitutional symptoms: Negative except as documented in HPI. Skin symptoms: Negative except as documented in HPI. Eye symptoms: Negative except as documented in HPI. ENMT symptoms: Negative except as documented in HPI. Respiratory symptoms: Negative except as documented in HPI. Cardiovascular symptoms: Negative except as documented in HPI. Gastrointestinal symptoms: Negative except as documented in HPI. Genitourinary symptoms: Negative except as documented in HPI. Musculoskeletal symptoms: Negative except as documented in HPI. Neurologic symptoms: Negative except as documented in HPI. Psychiatric symptoms: Negative except as documented in HPI. Endocrine symptoms: Negative except as documented in HPI. PFSH ED PFSH: Medical History Primary osteoarthritis of left knee UTI (urinary tract infection) Metabolic acidosis Acute on chronic renal insufficiency Hyponatremia Cyclical vomiting, intractable Sepsis Dehydration Hypokalemia LEVY (acute kidney injury) Cannabinoid hyperemesis syndrome Marijuana abuse Acute kidney injury Hypochloremic alkalosis Cyclical vomiting, intractable Osteomyelitis Hardware complicating wound infection Septic arthritis Postoperative anemia History of cardiovascular stress test (~10/2021) History of Holter monitoring (~12/2021) Baseline sinus rhythm, 50-129 bpm with average 79 bpm, one 4 beat run asymptomatic vtach Dyslipidemia Chronic kidney disease Cellulitis of toe of left foot GERD (gastroesophageal reflux disease) History of migraine Gout Cellulitis Nonunion after arthrodesis Pain in left ankle Pain in left foot High anion gap metabolic acidosis Cyclical vomiting Hepatitis B core antibody positive Surface antibody positive, surface antigen negative, HBV DNA and hepatitis b envelope Ag negative = equals past infection. Check LFTs q 3-6 months on biologic therapy. Repeat hepatitis serology if LFTs positive. Risk of reactivation. Primary osteoarthritis of right knee Tendinopathy of right rotator cuff DDD (degenerative disc disease), lumbosacral Cyclical vomiting Alcohol withdrawal Ileus Memory loss CVA (cerebral vascular accident) incidental finding on MR done for hearing loss, located in left cerebellar region on MRI performed early 2021 Elevated troponin GI bleed nsaid induced gastritis Intermittent palpitations Frozen shoulder syndrome Cannabinoid hyperemesis syndrome History of colon polyps tubular adenomas Hypertension Anxiety Plaque psoriasis High risk medication use biologic agent for psoriasis Psoriatic arthritis Major depressive disorder, recurrent, in partial remission Post-traumatic stress disorder, chronic Cannabis dependence, uncomplicated Surgical History Hx of knee surgery bilateral Hx laparoscopic cholecystectomy History of colonoscopy (~09/2021) History of hysterectomy History of ankle surgery multiple to left ankle History of shoulder surgery History of pelvic surgery History of eye surgery Has metal around eye orbit History of toe surgery multiple to left foot Family History Mother Stroke Psychiatric illness bipolar/depression Cancer Hypertension Hyperlipidemia Heart disease Migraines Father Cancer lung Heart disease Brother Psychiatric illness depression Other CAD (coronary artery disease) Diabetes Lung disease Social History Smoking and tobacco/nicotine status: former use of tobacco/nicotine Alcohol intake: current Substance/Drug Use: current Substance/Drug use frequency: daily Physical Exam Narrative: EXAM NARRATIVE: General: Alert, no acute distress. Skin: Warm, dry. Excoriations and bruising over her arms. Head: Normocephalic, atraumatic. Neck: Supple, trachea midline. Eye: Extraocular movements are intact. Ears, nose, mouth and throat: mucosa moist. Cardiovascular: Regular, Normal peripheral perfusion. Respiratory: Lungs are clear to auscultation, respirations are non-labored, breath sounds are equal, Symmetrical chest wall expansion. Gastrointestinal: Soft, Nontender, Non distended Musculoskeletal: Normal ROM, no deformity. Neurological: Alert, No focal neurological deficit observed. Psychiatric: Patient has sudden blurts of speech, movement disorder Course Vital Signs: Vital signs: Vital Signs Temperature 98.1 F 10/04/24 13:04 Pulse Rate 92 10/04/24 13:04 Respiratory Rate 19 H 10/04/24 13:04 Blood Pressure 198/124 10/04/24 13:04 Pulse Oximetry 94 10/04/24 13:04 Oxygen Delivery Me thod Room Air 10/04/24 13:04 MDM - Nausea/Vomiting/Diarrhea Medical Decision Making Assessment and plan: Feared complaint without diagnosis Cyclic vomiting ? Jose in the emergency room - Discharged home - Discussed plan with patient. Answered any questions. - Evaluation and treatment of this problem were appropriate in the emergency setting. No radiology studies performed this visit Discharge Plan Discharge Patient Disposition: Home Clinical Impression: Feared complaint without diagnosis Condition: Stable Prescriptions: No Action red yeast rice 600 mg capsule 300 mg PO BID Rx Instructions: give with meal/snack glucosamine HCl 500 mg tablet 500 mg PO DAILY Rx Instructions: administer with a meal multivitamin Tablet 1 tab PO DAILY sulfamethoxazole-trimethoprim [Bactrim DS] 800-160 mg tablet 1 tab PO BID Qty: 14 0RF prednisone 20 mg tablet 40 mg PO DAILY 3 Days Qty: 6 0RF Cymbalta 60 mg capsule,delayed release(DR/EC) 60 mg PO BID Qty: 60 0RF Cosentyx Pen (2 Pens) 150 mg/mL pen injector 300 mg SUBCUT DIRECTED Qty: 2 4RF Rx Instructions: Start 300 mg SC q week x 5 weeks; then q 4 weeks for maintenance pantoprazole 40 mg tablet,delayed release (DR/EC) 40 mg PO BID amlodipine 10 mg tablet 10 mg PO QAM metoprolol tartrate 37.5 mg tablet 37.5 mg PO BID potassium chloride [Klor-Con M20] 20 mEq Tablet,Er Particles/Crystals 40 meq PO DAILY Qty: 12 0RF ondansetron HCl 4 mg tablet 4 mg PO DAILY Qty: 14 0RF potassium chloride 20 mEq tablet extended release 20 meq PO DAILY Qty: 7 0RF aspirin 81 mg tablet,delayed release (DR/EC) 81 mg PO QPM Discharge Orders: Discharge ED (Routine); Ordered 10/04/24 Ordered By: Luna Estrada Referrals: Bucky Rogers MD [Primary Care Provider] - Discharge Diet: Usual diet Discharge Activity: Increase activity as tolerated Patient Instructions: Opioid Safety, Pain Management Activity Restrictions/Additional Instructions: Thank you for choosing [facility] for your healthcare needs today. Please realize this is an emergency room and that we are providing you with a medical screening exam and this may not be complete and all inclusive of all the testing and or work up that you may need to determine your ailment or severity of your illness. You have been screened and evaluated and felt safe for discharge. Health conditions do change or evolve sometimes and as such it is important that you follow up with your Primary Doctor to be re checked, 3-5 days is a general good time frame for follow up. You are always welcome to return to the ED for re assessment if your symptoms are worsening or you have new concerns Coding Level of Care Code ED Mortgage Underwriter for 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
[2024-10-04] MEDS: prochlorperazine 10 mg/2 mL Inj IVP (13:18)
[2024-10-04] MEDS: diphenhydrAMINE 50 mg/mL SDV 1mL 25 MG IVP (13:18)
[2024-10-04 13:30] VITALS: BP 154/108; PULSE 91; RESP 24; O2SAT 95
[2024-10-04 14:30] VITALS: BP 138/103; PULSE 86; O2SAT 93
[2024-10-04 14:45] VITALS: BP 138/103; PULSE 86; O2SAT 93
== END 2024-10-04 14:50 | disposition home or self-care (01) ==
PROVIDERS: Emergency Provider Emergency Medicine; PCP Family Medicine
DX: Z03.89 Encounter for observation for other suspected diseases and conditions ruled out (principal); Z79.82 Long term (current) use of aspirin; Z87.891 Personal history of nicotine dependence; Z86.73 Personal history of transient ischemic attack (TIA), and cerebral infarction without residual deficits; I12.9 Hypertensive chronic kidney disease with stage 1 through stage 4 chronic kidney disease, or unspecified chronic kidney disease; N18.9 Chronic kidney disease, unspecified; E78.5 Hyperlipidemia, unspecified
CPT/HCPCS: 96374; 96375; 99284; J0780; J1200

== ENCOUNTER 2024-10-05 10:00 | Inpatient (IN) | payer MEDICARE, MEDICAID, SELFPAY ==
[2024-10-05] VITALS (12 sets, daily range): BP systolic 110–202; BP diastolic 68–139; PULSE 71–113; RESP 16–18; TEMP 36.4–36.6; O2SAT 91–96; BMI 24.2
--- NOTE | 2024-10-05 13:49 | W.ED.GENADLT ---
HPI - General Adult General: Chief complaint: Nausea/Vomiting/Diarrhea Stated complaint: flu like symptoms Time Seen by Provider: 10/05/24 13:08 Source: patient and EMS Mode of arrival: EMS Limitations: no limitations History of Present Illness: Patient is a 54-year-old female well known to the ED and who has a plethora of listed medical problems (has over 40 listed in her PMH) here at the ED today at again via EMS for medical evaluation. This makes patient's third visit in 3 days for similar complaints. She tells me she is having nausea and vomiting. She has been retching and dry heaving throughout her stay in the waiting room as well as in her room prior to my examination. She has not produced any emesis. She was witnessed to be sticking her fingers down her throat and attempts to make herself vomit. She was initially seen here on 10/03 where she was positive for influenza A. She reports muscle cramps and states she feels like this when her potassium is low. Reports history of hypertension-states she did not take her meds today. Onset (ago): day(s) Relieving factors: none Exacerbating factors: none Associated symptoms: Reports nausea and vomiting (dry heaving); Deny chest pain, dyspnea, headache(s) or rash Treatments prior to arrival: none Related Data Home Medications Medication Instructions Recorded Confirmed pantoprazole 40 mg tablet,delayed 40 mg PO BID 09/04/21 10/05/24 release aspirin 81 mg tablet,delayed 81 mg PO QPM 04/09/22 10/05/24 release amlodipine 10 mg tablet 10 mg PO QAM 05/14/23 10/05/24 metoprolol tartrate 37.5 mg tablet 37.5 mg PO BID 08/20/23 10/05/24 red yeast rice 600 mg capsule 300 mg PO BID 12/03/23 10/05/24 atorvastatin 40 mg tablet 40 mg PO QPM 10/05/24 10/05/24 clobetasol 0.05 % scalp solution See Rx Instructions .Route .COMPLEX 10/05/24 10/05/24 clobetasol 0.05 % topical ointment See Rx Instructions .Route .COMPLEX 10/05/24 10/05/24 Previous Rx's Medication Instructions Recorded duloxetine 60 mg capsule,delayed 60 mg PO BID #60 caps 06/15/20 release (Cymbalta) secukinumab 150 mg/mL subcutaneous 300 mg (2 mL) SUBCUT DIRECTED 09/30/23 pen injector (Cosentyx Pen 300 #2 mL mg/2 Pens () potassium chloride 20 mEq 20 meq PO DAILY #7 tabs 10/03/24 tablet,extended release Allergies Allergy/AdvReac Type Severity Reaction Status Date / Time clindamycin Allergy Severe Unconscious Verified 08/29/24 12:41 adhesive tape Allergy Intermediate rash, red Verified 08/29/24 12:41 codeine Allergy Unknown ALGY-Anaphy Verified 08/29/24 12:41 laxis paroxetine [From Paxil] Allergy Unconscious Verified 08/29/24 12:41 Review of Systems Const: Reports: fever(s), chills and body aches ENMT: Denies: throat pain, odynophagia, ear or mastoid pain, nasal discharge, nasal congestion or sinus pain Card: Denies: chest pain Resp: Denies: dyspnea GI: Reports: nausea and vomiting (dry heaving); Denies: abdominal pain or diarrhea : Denies: flank pain, difficulty voiding, dysuria, urinary frequency, urinary urgency or urinary hesitancy Musc: Reports: muscle cramps; Denies: neck pain, back pain, extremity pain, extremity swelling, joint pain or joint swelling Skin/Breast: Denies: rash Neuro: Denies: headache(s), numbness in extremities, weakness in extremities or sensory changes PFS ED PFSH: Medical History Primary osteoarthritis of left knee UTI (urinary tract infection) Metabolic acidosis Acute on chronic renal insufficiency Hyponatremia Cyclical vomiting, intractable Sepsis Dehydration Hypokalemia LEVY (acute kidney injury) Cannabinoid hyperemesis syndrome Marijuana abuse Acute kidney injury Hypochloremic alkalosis Cyclical vomiting, intractable Osteomyelitis Hardware complicating wound infection Septic arthritis Postoperative anemia History of cardiovascular stress test (~10/2021) History of Holter monitoring (~12/2021) Baseline sinus rhythm, 50-129 bpm with average 79 bpm, one 4 beat run asymptomatic vtach Dyslipidemia Chronic kidney disease Cellulitis of toe of left foot GERD (gastroesophageal reflux disease) History of migraine Gout Cellulitis Nonunion after arthrodesis Pain in left ankle Pain in left foot High anion gap metabolic acidosis Cyclical vomiting Hepatitis B core antibody positive Surface antibody positive, surface antigen negative, HBV DNA and hepatitis b envelope Ag negative = equals past infection. Check LFTs q 3-6 months on biologic therapy. Repeat hepatitis serology if LFTs positive. Risk of reactivation. Primary osteoarthritis of right knee Tendinopathy of right rotator cuff DDD (degenerative disc disease), lumbosacral Cyclical vomiting Alcohol withdrawal Ileus Memory loss CVA (cerebral vascular accident) incidental finding on MR done for hearing loss, located in left cerebellar region on MRI performed early 2021 Elevated troponin GI bleed nsaid induced gastritis Intermittent palpitations Frozen shoulder syndrome Cannabinoid hyperemesis syndrome History of colon polyps tubular adenomas Hypertension Anxiety Plaque psoriasis High risk medication use biologic agent for psoriasis Psoriatic arthritis Major depressive disorder, recurrent, in partial remission Post-traumatic stress disorder, chronic Cannabis dependence, uncomplicated Surgical History Hx of knee surgery bilateral Hx laparoscopic cholecystectomy History of colonoscopy (~09/2021) History of hysterectomy History of ankle surgery multiple to left ankle History of shoulder surgery History of pelvic surgery History of eye surgery Has metal around eye orbit History of toe surgery multiple to left foot Family History Mother Stroke Psychiatric illness bipolar/depression Cancer Hypertension Hyperlipidemia Heart disease Migraines Father Cancer lung Heart disease Brother Psychiatric illness depression Other CAD (coronary artery disease) Diabetes Lung disease Social History Smoking and tobacco/nicotine status: former use of tobacco/nicotine Alcohol intake: current Substance/Drug Use: current Substance/Drug use frequency: daily Physical Exam Const: COMMON NORMALS: patient oriented x3, no limitations, alert and well nourished GENERAL APPEARANCE: disheveled and appears older than stated age ORIENTATION/CONSCIOUSNESS: Yes awake, Yes oriented to person, Yes oriented to place and Yes oriented to time HENMT: COMMON NORMALS: normocephalic and atraumatic HEAD & SCALP: normal to inspection, normocephalic and atraumatic FACE & SINUS: normal facial exam Eye: COMMON NORMALS: no scleral icterus Neck/C-Spine: COMMON NORMALS: full ROM, no lymphadenopathy, supple and no meningeal signs Chest: COMMONS NORMALS: normal inspection of the chest Resp: COMMON NORMALS: normal respiratory effort and clear to auscultation bilaterally AUSCULTATION: clear to auscultation bilaterally Cardio: COMMON NORMALS: regular rate and regular rhythm RATE: regular rate RHYTHM: regular rhythm GI: COMMON NORMALS: Normal to inspection, nondistended, normoactive bowel sounds present, Soft to palpation, non-tender, No hepatosplenomegaly present and no masses PALPATION: Yes Soft to palpation and Yes No hepatosplenomegaly present : COMMON NORMALS: Yes no CVA tenderness BLADDER/KIDNEY EXAM: Yes no CVA tenderness Back/Pelvis: COMMON NORMALS: no CVA tenderness and thoracic and lumbar spine normal to inspection Extremity: COMMON NORMALS: normal to inspection GENERAL: Yes normal exam except as noted Neuro: JUANY COMA SCALE: document GCS findings Juany coma scale eye opening: Spontaneous [place] coma scale verbal response: Orientated Juany coma scale motor response: Obey commands [place] coma scale total score: 15 COMMON NORMALS: patient oriented x3, moves all extremities, no focal motor deficits and no sensory deficits noted SENSORIUM/ORIENTATION: Yes alert, Yes oriented to person, Yes oriented to place and Yes oriented to time MENINGEAL SIGNS: Yes no meningeal signs Skin: COMMON NORMALS: no rashes or lesions noted NARRATIVE SKIN EXAM: scattered bruises to extremities at various stages of healing GENERAL SKIN EXAM: no rashes or lesions noted Course Consultations: Consultation #1: Dr. Wagner-recommends repeating BMP to confirm abnormal creatinine and obtaining non-contrast CT abdomen/pelvis Vital Signs: Vital signs: Vital Signs Temperature 97.6 F 10/05/24 10:09 Pulse Rate 92 10/05/24 16:12 Respiratory Rate 16 10/05/24 16:12 Blood Pressure 146/93 10/05/24 16:12 Pulse Oximetry 93 10/05/24 16:12 Oxygen Delivery Me thod Room Air 10/05/24 13:28 [facility] - General Adult Medical Decision Making Patient is a 54-year-old female well-known here to our emergency department here on her third visit in 3 days for continued nausea and vomiting, muscle weakness and cramps. She was diagnosed with influenza A 48 hours ago. She arrives hypertensive and tachycardic. She has not taken her blood pressure medications this morning. Blood work showing a white count of 13.8. This is most likely secondary to her vomiting. Her chemistry shows acute kidney injury with a creatinine of 5.3. This was 0.62 days ago. Mild hypokalemia. She has a gap of 30.3. Nonspecific mild elevations to her LFTs. She does have a normal tbili and lipase. Patient CPK is 3688. Patient will be admitted to hospital services for IV antibiotics. LEVY most likely related to hypovolemia/fluid loss from vomiting in addition to rhabdomyolysis/viral myositis. Will obtain CT abdomen/pelvis prior to admission to rule out post-renal obstruction. Hospitalist also requesting repeat chemistry for confirmation of abnormal labs. Medical Records I reviewed the patient's medical records. Lab Data I reviewed the patient's lab results. 10/05/24 14:01 10/05/24 15:52 Radiology Impressions Chest X-Ray 10/05/24 14:06 IMPRESSION: Questionable bronchitis lower lung zones. Negative for pneumonia. Abdomen/Pelvis CT 10/05/24 15:23 IMPRESSION: 1. No acute findings within the abdomen or pelvis. 2. Stable nonemergent findings as above. Laboratory Results WBC 13.81 10^3/uL (3.29-11.43) H 10/05/24 14:01 RBC 4.63 10^6/uL (3.85-5.65) 10/05/24 14:01 Hgb 14.00 g/dL (11.27-16.99) 10/05/24 14:01 Hct 39.7 % (36-47) 10/05/24 14:01 MCV 85.7 fl (85-98) 10/05/24 14:01 MCH 30.2 pg (27-33) 10/05/24 14:01 MCHC 35.3 g/dL (30-55) 10/05/24 14:01 RDW 13.8 % (12.1-15.1) 10/05/24 14:01 Plt Count 396 10^3/cmm (157-399) 10/05/24 14:01 MPV 10.5 fL (7.4-10.4) H 10/05/24 14:01 Neut % (Auto) 79.3 % 10/05/24 14:01 Lymph % (Auto) 10.1 % 10/05/24 14:01 Morris % (Auto) 10.1 % 10/05/24 14:01 Eos % (Auto) 0.0 % 10/05/24 14:01 Baso % (Auto) 0.1 % 10/05/24 14:01 Neut # (Auto) 10.95 10^3/uL (1.8-7.7) H 10/05/24 14:01 Lymph # (Auto) 1.4 10^3/uL (0.8-4.8) 10/05/24 14:01 Morris # (Auto) 1.4 10^3/uL (0.2-0.9) H 10/05/24 14:01 Eos # (Auto) 0.0 10^3/uL (0.0-0.8) 10/05/24 14:01 Baso # (Auto) 0.0 10^3/uL (0.0-0.1) 10/05/24 14:01 Nucleated RBC % (auto) 0 % 10/05/24 14:01 Nucleated RBCs # 0.0 /100WBC 10/05/24 14:01 Sodium 133 mmol/L (136-145) L 10/05/24 15:52 Potassium 3.4 mmol/L (3.5-5.1) L 10/05/24 15:52 Chloride 88 mmol/L (98-107) L 10/05/24 15:52 Carbon Dioxide 24 mmol/L (22-29) 10/05/24 15:52 Anion Gap 24.4 (5-19) H 10/05/24 15:52 BUN 64 mg/dL (6-20) H 10/05/24 15:52 Creatinine 4.8 mg/dL (0.5-0.9) H 10/05/24 15:52 GFR Calculation 9.4 mL/min (90-130) L 10/05/24 15:52 Glucose 117 mg/dL (65-115) H 10/05/24 15:52 Calculated Osmolality 295 mOsm/kg (285-295) 10/05/24 15:52 Lactic Acid 1.3 mmol/L (0.5-2.2) 10/05/24 14:01 Calcium 8.4 mg/dL (8.5-10.5) L 10/05/24 15:52 Total Bilirubin 0.5 mg/dL (0.15-1.2) 10/05/24 14:01 AST 92 U/L (0-32) H 10/05/24 14:01 ALT 49 U/L (0-33) H 10/05/24 14:01 Alkaline Phosphatase 137 U/L (35-105) H 10/05/24 14:01 Creatine Kinase 3688 U/L (26-192) H* 10/05/24 14:01 Total Protein 8.0 g/dL (6.6-8.7) 10/05/24 14:01 Albumin 4.9 g/dL (3.5-5.2) 10/05/24 14:01 Globulin 3.1 g/dL (1.3-4.6) 10/05/24 14:01 Lipase 46 U/L (13-60) 10/05/24 14:01 Salicylates < 0.3 mg/dL (3-10) L 10/05/24 14:01 Ethyl Alcohol < 10 mg/dL (0-10) 10/05/24 14:01 All radiology interpretation(s) finalized by discharge Discharge Plan Discharge Patient Disposition: Admitted As Inpatient Clinical Impression: Influenza A, LEVY (acute kidney injury), Viral myositis, Acute renal failure due to rhabdomyolysis Condition: Stable Coding Level of Care Code ED Product Management Analyst for 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
--- NOTE | 2024-10-05 14:06 | XRR_ITS ---
PROCEDURE INFORMATION: Exam: XR Chest Exam date and time: 10/05/2024 2:09 PM Age: 54 years old Clinical indication: Pain; Angina pectoris; N/v/d. . Flu like symptoms; Additional info: Chest pain TECHNIQUE: Imaging protocol: Radiologic exam of the chest. Views: 1 view. COMPARISON: CR XR chest 1V portable [id number] 03/30/2024 3:50 PM FINDINGS: Lungs: There are mildly accentuated indistinct bronchial markings lower lung zones on the current study the may in part be secondary to active airway disease (bronchitis). Lung miguel are otherwise clear. No infiltrates detected. Pleural spaces: Unremarkable. No pleural effusion. No pneumothorax. Heart/Mediastinum: Unremarkable. No cardiomegaly. Bones/joints: No acute bony abnormalities detected. XR/XR chest 1V portable [id number] IMPRESSION: Questionable bronchitis lower lung zones. Negative for pneumonia.
[2024-10-05 14:16] LABS: Basophils % 0.1 %; Hematocrit 39.7 % (36-47); Lymphocytes # 1.4 10^3/uL (0.8-4.8); Lymphocytes % 10.1 %; Mean Corpuscular HGB Conc 35.3 g/dL (30-55); Mean Corpuscular Hemoglobin 30.2 pg (27-33); Mean Corpuscular Volume 85.7 fl (85-98); Mean Platelet Volume 10.5 fL (7.4-10.4); Monocytes # 1.4 10^3/uL (0.2-0.9); Monocytes % 10.1 %; Neutrophils # 10.95 10^3/uL (1.8-7.7); Neutrophils % 79.3 %; Nucleated Red Blood Cells % 0 %; Platelet Count 396 10^3/cmm (157-399); Red Blood Count 4.63 10^6/uL (3.85-5.65); Red Cell Distribution Width 13.8 % (12.1-15.1); White Blood Count 13.81 10^3/uL (3.29-11.43)
[2024-10-05] MEDS: metoprolol tartrate 1 mg/1 mL SDV 5 mL 5 MG IVP (14:18)
[2024-10-05] MEDS: ondansetron 2 mg/ML SDV 2 mL 4 MG IVP ×2 (14:18→22:34)
[2024-10-05 14:36] LABS: Alanine Aminotransferase 49 U/L (0-33); Albumin Level 4.9 g/dL (3.5-5.2); Alkaline Phosphatase 137 U/L (35-105); Anion Gap 30.3 (5-19); Aspartate Amino Transferase 92 U/L (0-32); Blood Urea Nitrogen 67 mg/dL (6-20); Calcium 9.4 mg/dL (8.5-10.5); Carbon Dioxide 21 mmol/L (22-29); Chloride 83 mmol/L (98-107); Creatinine Clr Calc Pharmacy 11.7495; Globulin 3.1 g/dL (1.3-4.6); Glomerular Filtration Rate 8.4 mL/min (90-130); Glucose 142 mg/dL (65-115); Lipase 46 U/L (13-60); Osmolality Calculated 294 mOsm/kg (285-295); Potassium 3.3 mmol/L (3.5-5.1); Sodium 131 mmol/L (136-145); Total Bilirubin 0.5 mg/dL (0.15-1.2)
[2024-10-05] MEDS: promethazine 25 mg/mL SDV 1 mL 50 MG IM (14:37)
[2024-10-05] MEDS: amlodipine 10 mg Tablet PO (14:39)
[2024-10-05] MEDS: metoprolol tartrate 25 mg Tablet PO (14:39)
[2024-10-05 14:51] LABS: Creatine Phosphokinase 3688 U/L (26-192)
[2024-10-05] MEDS: sodium chloride 0.9% 1,000 ML 999 ML IV ×2 (15:01)
[2024-10-05 15:07] LABS: Alcohol Level < 10 mg/dL (0-10); Salicylate < 0.3 mg/dL (3-10)
--- NOTE | 2024-10-05 15:23 | CTR_ITS ---
PROCEDURE INFORMATION: Exam: CT Abdomen And Pelvis Without Contrast Exam date and time: 10/05/2024 4:17 PM Age: 54 years old Clinical indication: Nausea and vomiting; Prior surgery; Surgery date: 6+ months; Surgery type: Hysterectomy; Additional info: Edward, n/v TECHNIQUE: Imaging protocol: Computed tomography of the abdomen and pelvis without contrast. Radiation optimization: All CT scans at this facility use at least one of these dose optimization techniques: automated exposure control; mA and/or kV adjustment per patient size (includes targeted exams where dose is matched to clinical indication); or iterative reconstruction. COMPARISON: CT abdomen pelvis wo con [id number] 02/25/2024 5:58 AM RADIATION DOSE METRICS: Total DLP (mGy-cm): 429.57 FINDINGS: Limitations: Study is technically limited due to motion artifact. Lungs: Scattered linear atelectasis posteriorly at the lung bases which are otherwise clear. Liver: Normal. No mass. Gallbladder and biliary ducts: Gallbladder has been removed. Bile ducts are not appreciably dilated. Pancreas: Unremarkable. Main pancreatic duct is not significantly dilated. Spleen: Normal. No splenomegaly. Adrenal glands: There is a enlargement involving the limbs of the adrenal glands more pronounced on the left unchanged consistent with benign adrenal hyperplasia. Kidneys and ureters: Two left renal cysts redemonstrated unchanged. Right kidney is unremarkable. Stomach and bowel: Unremarkable. No obstruction. No mucosal thickening. Appendix: No evidence of acute appendicitis. Intraperitoneal space: Unremarkable. No free air. No significant fluid collection. Vasculature: Scattered atherosclerotic changes of the abdominal aorta and iliac vessels. No aortic aneurysm. Lymph nodes: Unremarkable. No enlarged lymph nodes. Urinary bladder: Unremarkable as visualized. Reproductive: Uterus has been removed. Bones/joints: There are multilevel degenerative endplate changes lower thoracic and lower lumbar spine redemonstrated. There are syndesmotic screws placed across the sacroiliac joints unchanged creating metallic artifact. Soft tissues: There are 2 small fat containing midline abdominal wall hernias redemonstrated 1 of which is just deep to the umbilicus with the other situated 2 cm more superiorly with mild indistinct internal fat stranding unchanged blurred by motion artifact that may part be due to chronic fat necrosis. CT/CT abdomen pelvis wo con [id number] IMPRESSION: 1. No acute findings within the abdomen or pelvis. 2. Stable nonemergent findings as above.
[2024-10-05] MEDS: hyDRALAzine 20 mg/mL INJ 1 mL IVP (15:41)
--- NOTE | 2024-10-05 15:41 | PC.PHAR ---
Pt states no longer takes multivitamin or glucosamine. Pt states has not had any medications in 3 days. Med rec was not done when she was here on Saturday.
[2024-10-05 15:50] LABS: Lactic Sepsis W/Reflex 1.3 mmol/L (0.5-2.2)
[2024-10-05 16:34] LABS: Blood Urea Nitrogen 64 mg/dL (6-20); Calcium 8.4 mg/dL (8.5-10.5); Carbon Dioxide 24 mmol/L (22-29); Chloride 88 mmol/L (98-107); Creatinine Clr Calc Pharmacy 12.9734; Glomerular Filtration Rate 9.4 mL/min (90-130); Glucose 117 mg/dL (65-115); Osmolality Calculated 295 mOsm/kg (285-295); Sodium 133 mmol/L (136-145)
[2024-10-05 16:38] LABS: Anion Gap 24.4 (5-19); Potassium 3.4 mmol/L (3.5-5.1)
[2024-10-05] MEDS: LORazepam 2 mg/mL INJ 1 mL 1 MG IVP (17:50)
[2024-10-05 18:16] LABS: Bilirubin Urine Negative (Negative); Blood Urine 2+ (Negative); Glucose Urine UA Negative (Normal); Ketones Urine Trace (Negative); Leukocyte Esterase Urine Negative (Negative); Nitrate Urine Negative (Negative); Protein Urine 3+ (Negative); Specific Gravity, Urine 1.014 (1.005-1.030); Urine Appearance Cloudy (CLEAR); Urine Color Yellow (Yellow)
[2024-10-05 18:18] LABS: Add Urine Microscopic? YES; Bacteria Urine None Seen /hpf; Hyaline Casts Urine 19.43 /lpf; RBC Urine 0-2 /hpf (0-2); Squamous Epithelial Cell Urine 0-5 /hpf (0-5)
[2024-10-05 18:22] LABS: Amphetamines Screen Urine Negative (Negative); Barbiturates Screen Urine Negative (Negative); Benzodiazepines Screen Urine Negative (Negative); Cocaine Screen Urine Negative (Negative); Opiate Screen Urine Negative (Negative); PCP Screen Urine Negative (Negative); THC Screen Urine Positive (Negative)
[2024-10-05 18:27] LABS: UA Slide Review UA Slide Review Perf
[2024-10-05 18:29] LABS: Add Urine Culture? No
[2024-10-05] MEDS: metoprolol tartrate 25 mg Tablet 37.5 MG PO (18:39)
[2024-10-05] MEDS: duloxetine 60 mg Capsule PO (18:39)
[2024-10-05] MEDS: pantoprazole 40 mg SDV IVP (18:39)
[2024-10-05] MEDS: sodium chloride 0.9% 1,000 ML 75 ML IV (18:39)
[2024-10-05] MEDS: atorvastatin 40 mg Tablet PO (18:40)
[2024-10-05] MEDS: docusate sodium 100 mg Capsule PO (18:40)
[2024-10-05] MEDS: aspirin 81 mg EC Tablet PO (18:41)
[2024-10-05] MEDS: heparin 5,000 unit/mL INJ 1 mL 5000 UNIT SUBCUT (18:44)
--- NOTE | 2024-10-05 18:53 | P.HP_ITS ---
Providers/Chief Complaint 2 Admitting Physician: Adrian Agosto MD Primary Care Provider: Bucky Rogers MD Chief Complaint: flu like symptoms History of Present Illness Rachelle Mireles is a 54 year old female with past medical history of hypertension, cyclic vomiting, uses marijuana came to the ER today with concerns for nausea and vomiting, myalgias. This is her third visit in the last 3 days with similar complaints. She was tested positive for influenza A on 10/03. Patient denies any difficulty in breathing but does complain of cough. In the ER patient was found to be having nausea with episodes of dry heaving. She states she is not able to maintain oral hydration. She was seen a few times trying to induce vomiting while being in the ER. She also complains of diarrhea for last 2 days with last episode today morning. Blood work done in the ER showed leukocytosis up to 13,000, LEVY with creatinine of 4.8, BUN of 64, sodium of 133 with chloride of 88 with CPK of more than 3000, transaminitis Review of Systems 2 General: Reports: 10 or more systems reviewed and unremarkable except in HPI and below Const: Denies: fever(s), chills, body aches, change in appetite, change in weight, malaise, night sweats, diaphoresis, change in sleep pattern, daytime sleepiness or snoring Eyes: Denies: change in vision, blurry vision, photophobia, eye discomfort or eye discharge ENMT: Denies: throat pain, enlarged tonsils, hoarseness, mouth pain, oral sores, dry mouth, tinnitus, nasal congestion or post nasal drip Card: Denies: chest pain, palpitations, irregular heart rhythm, edema, swelling of feet/ankles, lightheadedness, syncope, pre-syncope, dyspnea on exertion, orthopnea, leg pain with exertion or acrocyanosis Resp: Denies: dyspnea, productive cough, non-productive cough, wheezing, stridor, pain on inspiration, change in phlegm color, hemoptysis or chest congestion GI: Denies: abdominal pain, nausea, vomiting, hematemesis, coffee ground emesis, dysphagia, heartburn, diarrhea, constipation, bloating, GI cramping, change in bowel habits, pain on defecation, hematochezia or melena : Denies: flank pain, dysuria, urinary frequency, urinary urgency, urinary hesitancy, nocturia or hematuria Musc: Denies: neck pain, back pain, extremity pain, joint pain, joint swelling, joint redness, joint stiffness or limited range of motion Neuro: Denies: headache(s), numbness in extremities, weakness in extremities, sensory changes, lack of coordination, difficulty walking, frequent falls, dizziness, vertigo, confusion, Slurred speech present, difficulty communicating thoughts or seizure-like activity Psych: Denies: anxiety, depression, mood swings, panic attacks, hopelessness or irritability Endo: Denies: polyuria, polydipsia, tired all the time, cold intolerance, excessive sweating, flushing or heat intolerance Ba/Lymph: Denies: easy bruising or easy bleeding All/Imm: Denies: tongue swelling, facial swelling or acute wheezing Medications/Allergies Home Medications Medication Instructions Recorded Confirmed Last Taken Type duloxetine 60 mg capsule,delayed 60 mg PO BID #60 caps 02/15/20 10/05/24 10/02/24 Rx release (Cymbalta) pantoprazole 40 mg tablet,delayed 40 mg PO BID 09/04/21 10/05/24 10/02/24 History release aspirin 81 mg tablet,delayed 81 mg PO QPM 04/09/22 10/05/24 10/02/24 History release amlodipine 10 mg tablet 10 mg PO QAM 05/14/23 10/05/24 10/02/24 History metoprolol tartrate 37.5 mg tablet 37.5 mg PO BID 08/20/23 10/05/24 10/02/24 History secukinumab 150 mg/mL subcutaneous 300 mg (2 mL) SUBCUT DIRECTED 09/30/23 10/05/24 09/03/24 Rx pen injector (Cosentyx Pen 300 #2 mL mg/2 Pens () red yeast rice 600 mg capsule 300 mg PO BID 12/03/23 10/05/24 10/02/24 History potassium chloride 20 mEq 20 meq PO DAILY #7 tabs 10/03/24 10/05/24 Unknown Rx tablet,extended release atorvastatin 40 mg tablet 40 mg PO QPM 10/05/24 10/05/24 10/02/24 History clobetasol 0.05 % scalp solution See Rx Instructions .Route .COMPLEX 10/05/24 10/05/24 10/02/24 History clobetasol 0.05 % topical ointment See Rx Instructions .Route .COMPLEX 10/05/24 10/05/24 10/02/24 History Allergies Allergy/AdvReac Type Severity Reaction Status Date / Time clindamycin Allergy Severe Unconscious Verified 08/29/24 12:41 adhesive tape Allergy Intermediate rash, red Verified 08/29/24 12:41 codeine Allergy Unknown ALGY-Anaphy Verified 08/29/24 12:41 laxis paroxetine [From Paxil] Allergy Unconscious Verified 08/29/24 12:41 PFSH Acute 2 PFSH: Medical History (Updated 10/05/24 @ 19:38 by Adrian Agosto MD) Dehydration Hyponatremia Primary osteoarthritis of left knee UTI (urinary tract infection) Metabolic acidosis Acute on chronic renal insufficiency Cyclical vomiting, intractable Sepsis Hypokalemia LEVY (acute kidney injury) Cannabinoid hyperemesis syndrome Marijuana abuse Acute kidney injury Hypochloremic alkalosis Cyclical vomiting, intractable Osteomyelitis Hardware complicating wound infection Septic arthritis Postoperative anemia History of cardiovascular stress test (~10/2021) History of Holter monitoring (~12/2021) Baseline sinus rhythm, 50-129 bpm with average 79 bpm, one 4 beat run asymptomatic vtach Dyslipidemia Chronic kidney disease Cellulitis of toe of left foot GERD (gastroesophageal reflux disease) History of migraine Gout Cellulitis Nonunion after arthrodesis Pain in left ankle Pain in left foot High anion gap metabolic acidosis Cyclical vomiting Hepatitis B core antibody positive Surface antibody positive, surface antigen negative, HBV DNA and hepatitis b envelope Ag negative = equals past infection. Check LFTs q 3-6 months on biologic therapy. Repeat hepatitis serology if LFTs positive. Risk of reactivation. Primary osteoarthritis of right knee Tendinopathy of right rotator cuff DDD (degenerative disc disease), lumbosacral Cyclical vomiting Alcohol withdrawal Ileus Memory loss CVA (cerebral vascular accident) incidental finding on MR done for hearing loss, located in left cerebellar region on MRI performed early 2021 Elevated troponin GI bleed nsaid induced gastritis Intermittent palpitations Frozen shoulder syndrome Cannabinoid hyperemesis syndrome History of colon polyps tubular adenomas Hypertension Anxiety Plaque psoriasis High risk medication use biologic agent for psoriasis Psoriatic arthritis Major depressive disorder, recurrent, in partial remission Post-traumatic stress disorder, chronic Cannabis dependence, uncomplicated Surgical History Hx of knee surgery bilateral Hx laparoscopic cholecystectomy History of colonoscopy (~09/2021) History of hysterectomy History of ankle surgery multiple to left ankle History of shoulder surgery History of pelvic surgery History of eye surgery Has metal around eye orbit History of toe surgery multiple to left foot Family History Mother Stroke Psychiatric illness bipolar/depression Cancer Hypertension Hyperlipidemia Heart disease Migraines Father Cancer lung Heart disease Brother Psychiatric illness depression Other CAD (coronary artery disease) Diabetes Lung disease Social History Smoking and tobacco/nicotine status: former use of tobacco/nicotine Alcohol intake: current Substance/Drug Use: current Substance/Drug use frequency: daily Vitals/I&O/Wt Last Vital Signs Temp 97.6 F 10/05/24 10:09 Pulse 95 10/05/24 17:16 Resp 16 10/05/24 17:16 BP 144/99 10/05/24 17:16 Pulse Ox 92 10/05/24 17:16 O2 Del Method Room Air 10/05/24 13:28 10/05/24 10/05/24 10/05/24 06:59 14:59 22:59 Intake Total 1999 Balance 1999 Weight last 48 hrs Weight 68.039 kg Physical Exam 2 Narrative: General: AO x3, dehydrated, in distress because of myalgia, multiple bruises present on bilateral arms, right knee HEENT: PERRLA, pupils bilaterally equal and reactive Chest: Normal vesicular breath sounds, no added sounds, equal good air entry bilaterally CVS: S1-S2 regular, no murmurs, no tachycardia, no gallops, no rubs Abdomen: Soft, nontender, no organomegaly, bowel sounds present Neuro: No focal deficits, no facial deformity, AO x3, power 5/5 in all limbs Urinary Catheter Management: Abel: Cath Placed During This Visit: yes Urinary Catheter Date of Insertion: 10/05/24 Urinary Catheter Time of Insertion: 18:06 Data 10/05/24 14:01 10/05/24 15:52 A&P Assessment and plan (1) Nausea & vomiting: Patient has history of cyclic vomiting. Chronic marijuana user. Most likely aggravated with influenza. Clear liquid diet Zofran every 6 hour as needed, Phenergan every 8-12 hours as needed. Protonix IV twice daily. (2) LEVY (acute kidney injury): Most likely in setting of dehydration from poor oral intake. Getting worsened with rhabdomyolysis. CT abdomen pelvis negative for obstructive nephropathy. Abel catheterization for strict input output charting. IV fluids with normal saline at 75 cc/h. Monitor BMP daily for now. Check urine lites, urine creatinine, urine eosinophils. Associated with mild metabolic acidosis, hyponatremia and hypokalemia. (3) Acute hypokalemia: Replace with 40 mg orally. Monitor daily. (4) Influenza A: Complaining of difficulty in breathing. Remains on room air. Does have concerns for viral myositis with rhabdomyolysis. Supportive treatment. Tamiflu 30 mg oral daily as per creatinine clearance. Prednisone 40 mg oral daily. DuoNeb as needed every 6 hours. (5) Hyponatremia: IV fluid as above. Monitor daily. (6) Rhabdomyolysis: Monitor daily. (7) Viral myositis: (8) Dehydration: Plan Patient does have history of MRSA infection with infection of the joint and hardware in the past. Check blood culture. Hold off on IV antibiotics for now. Complaining of diarrhea: Most likely viral gastroenteritis. Check stool studies to rule out C. difficile. Hypertension: Goal blood pressure less than 140/90 mmHg. Continue with home dose of amlodipine, metoprolol. Restart other home medications including baby aspirin, duloxetine. Hold off on statin given rhabdomyolysis. Attestations 2 Medical Necessity Statement*: Admission for more than 2 midnights for management of acute kidney injury, rhabdomyolysis in setting of influenza A with concerns of viral myositis, hyponatremia, hypokalemia, nausea and vomiting leading to poor oral intake Diagnoses Nausea & vomiting R11.2 LEVY (acute kidney injury) N17.9 Acute hypokalemia E87.6 Influenza A J10.1 Hyponatremia E87.1 Rhabdomyolysis M62.82 Viral myositis M60.009; B97.89 Dehydration E86.0
[2024-10-05 19:23] LABS: Potassium, Radom Urine 43 mmol/L; Urine Random Chloride 22 mmol/L; Urine Random Sodium 37 mmol/L
[2024-10-05] MEDS: predniSONE 20 mg Tablet 40 MG PO (19:23)
[2024-10-05] MEDS: promethazine 25 mg/mL SDV 1 mL 12.5 MG IM (19:23)
[2024-10-05] MEDS: oseltamivir phosphate 30 mg Capsule PO (19:23)
[2024-10-05 19:47] LABS: Urine Creatinine 146 mg/dL (28-217)
[2024-10-05 20:32] LABS: Estmated Average Glucose 117; Hemoglobin A1C 5.7 % (4.0-6.0)
[2024-10-05 20:49] LABS: Procalcitonin 0.23 ng/mL (0-0.5)
[2024-10-05 20:50] LABS: Iron 73 ug/dL (37-145); Lactic Sepsis W/Reflex 1.7 mmol/L (0.5-2.2); Total Iron Binding Capacity 270 mcg/dl; Unsaturated Iron Binding 197 ug/dL (112-347)
--- NOTE | 2024-10-05 22:46 | PC.NURSE ---
Upon entering room pt began uncovering herself to show this nurse multiple bruises and scabs. Pt then requested medication for nausea. Pt watched closely as this nurse administered IV zofran. This nurse then completed further physical assessment and admission questions. As this nurse left the room, the patient asked What about my nausea medicine? You didn't give it to me. This nurse reminded the patient that IV zofran had been administered. Pt then asked Did I show you the bruises and stuff on my legs? Nurse reminded pt that she had.
[2024-10-05 23:55] LABS: Thyroid Stimulating Hormone 0.36 uIU/mL (0.27-4.20); Vitamin B12 1190 pg/mL (232-1245)
[2024-10-06] VITALS (9 sets, daily range): BP systolic 120–129; BP diastolic 66–87; PULSE 70–92; RESP 16–18; TEMP 36.4–37; O2SAT 90–96
[2024-10-06] MEDS: amlodipine 10 mg Tablet PO (06:40)
[2024-10-06] MEDS: pantoprazole 40 mg SDV IVP ×2 (06:41→17:47)
[2024-10-06] MEDS: heparin 5,000 unit/mL INJ 1 mL 5000 UNIT SUBCUT ×2 (06:42→17:49)
[2024-10-06] MEDS: predniSONE 20 mg Tablet 40 MG PO (09:03)
[2024-10-06] MEDS: duloxetine 60 mg Capsule PO ×2 (09:03→17:48)
[2024-10-06] MEDS: metoprolol tartrate 25 mg Tablet 37.5 MG PO ×2 (09:03→17:49)
[2024-10-06] MEDS: sodium chloride 0.9% 1,000 ML 75 ML IV ×2 (09:04→21:17)
[2024-10-06] MEDS: oseltamivir phosphate 30 mg Capsule PO (09:04)
[2024-10-06] MEDS: morphine 4 mg/mL SDV 1 mL 2 MG IVP ×2 (09:08→17:48)
--- NOTE | 2024-10-06 10:12 | PC.CHAP ---
Pastoral Care Encounter/Spiritual Assessment Type of Contact [] Declined warehouser visit [] Patient/Family/Request visit [] Outpatient visit [] Follow-up visit [] Physician referral [] Code/Alert [] Routine visit [] Staff referral [] Actively dying [] Patient sleeping [] Family support [] [] Out of room [] Palliative care [] [] Receiving care in room [] Pre-surgical visit [] Trauma [] Long length of stay [] ICU visit [x] Other:Contact precautions. No visit. Relational/Emotional Strength [] Patient feels connected with others/family/visitors/staff [] Distress [] Loneliness/isolation [] Abandonment Spirituality of Patient [] Person of Ceci [] Attends Caodaism of their Ceci [] Believes in Prayer [] Reads Bible or Presybeterian materials [] There are Spiritual issues to be addressed Windmill Technician Interventions [] Prayer [] Active listening [] Non-anxious presence [] Spiritual/emotional support [] Crisis/trauma care [] Spiritual counseling [] Bereavement support [] Provided bereavement packet [] Provided Bible/devotional materials [] Provided toy/stuffed animal, coloring book to patient or family member [] Provided Communion [] Anointing/[place] [] Salvation [] Completed spiritual assessment [] Other: Impact on Illness or Injury [] Angry [] Fearful [] Anxious [] Often cries [] Exhaustion [] Unable to work [] Unable to attend mormon [] Unable to walk/stand [] Unable to read [] Unable to drive [] Unable to eat/drink [] Unable to sleep [] Unable to be with family [] Patient intubated [] Other: Summary Time spent with patient
[2024-10-06 12:21] LABS: Alanine Aminotransferase 41 U/L (0-33); Albumin Level 3.5 g/dL (3.5-5.2); Alkaline Phosphatase 103 U/L (35-105); Aspartate Amino Transferase 74 U/L (0-32); Blood Urea Nitrogen 48 mg/dL (6-20); Calcium 8.3 mg/dL (8.5-10.5); Carbon Dioxide 18 mmol/L (22-29); Chloride 95 mmol/L (98-107); Creatinine Clr Calc Pharmacy 31.1362; Globulin 2.9 g/dL (1.3-4.6); Glomerular Filtration Rate 25.8 mL/min (90-130); Glucose 97 mg/dL (65-115); Osmolality Calculated 283 mOsm/kg (285-295); Sodium 130 mmol/L (136-145); Total Bilirubin 0.4 mg/dL (0.15-1.2); Total Protein 6.4 g/dL (6.6-8.7)
[2024-10-06 12:45] LABS: Chol HDL Ratio 4.48 mg/dL (0.0-4.40); Cholesterol 188 mg/dL (0-200); HDL Cholesterol 42 mg/dL (60-100); LDL Cholesterol Calculated 96 mg/dL (50-129); LDL HDL Ratio 2.29 RATIO (0.00-3.22); Triglycerides 249 mg/dL (0-150)
[2024-10-06 12:52] LABS: Procalcitonin 0.15 ng/mL (0-0.5)
[2024-10-06 13:09] LABS: Folate Level > 20.0 ng/mL (4.8-37.3)
[2024-10-06 13:57] LABS: Basophils % 0.1 %; Eosinophils % 0.1 %; Hematocrit 35.2 % (36-47); Lymphocytes # 0.7 10^3/uL (0.8-4.8); Lymphocytes % 6.1 %; Mean Corpuscular HGB Conc 33.8 g/dL (30-55); Mean Corpuscular Hemoglobin 30.3 pg (27-33); Mean Corpuscular Volume 89.6 fl (85-98); Mean Platelet Volume 10.3 fL (7.4-10.4); Monocytes # 0.3 10^3/uL (0.2-0.9); Monocytes % 3.1 %; Neutrophils # 9.78 10^3/uL (1.8-7.7); Neutrophils % 90.1 %; Nucleated Red Blood Cells % 0 %; Platelet Count 324 10^3/cmm (157-399); Red Blood Count 3.93 10^6/uL (3.85-5.65); White Blood Count 10.85 10^3/uL (3.29-11.43)
--- NOTE | 2024-10-06 17:00 | USCV_ITS ---
Chi Rachelle Age: 54 Gender: F : 1970 Exam Date: 10/06/2024 18:44 Ordering Phys: Adrian Agosto MD Technologist: CHRIS Exam Location: [facility] [place] Indication: possible infective endocarditis history of HTN, influenza A isolation as of 10/03/2024, N+V BP: 120 / 76 HR: 67 Rhythm: Sinus Technical Quality: Adequate MEASUREMENTS (Male / Female) Normal Values 2D ECHO LV Diastolic Diameter PLAX 4.2 cm 4.2 - 5.9 / 3.9 - 5.3 cm IVS Diastolic Thickness 1.2 cm 0.6 - 1.0 / 0.6 - 0.9 cm IVS Systolic Thickness 1.7 cm LVPW Diastolic Thickness 1.1 cm 0.6 - 1.0 / 0.6 - 0.9 cm LVPW Systolic Thickness 1.7 cm LVOT Diameter 1.9 cm LV Ejection Fraction 2D Teich 69.2 % LV Ejection Fraction MOD 4C 57.2 % LV Ejection Fraction MOD 2C 52.7 % LV Ejection Fraction 2C AL 49.7 % LA Diameter 3.9 cm LA Sys Volume AL 69.1 cm cubed LA Sys Volume Index AL 38.6 cm cubed/m squared Aorta at Sinotubular Diameter 2.8 cm IVC Diameter 1.2 cm M-MODE LA Ao Ratio MM 1.4 AV Cusp Separation MM 1.5 cm DOPPLER AV Peak Velocity 182.0 cm/s LVOT Peak Velocity 131.0 cm/s AV Area Cont Eq vti 2.5 cm squared AV Area Cont Eq pk 2.1 cm squared MV Peak Velocity 132.0 cm/s MV Area PHT 3.1 cm squared Mitral E to A Ratio 0.8 TV Peak E Velocity 60.0 cm/s PV Peak Velocity 95.0 cm/s FINDINGS Left Ventricle Left ventricle is normal in size. LV systolic function is normal with EF 55-60%. No regional wall motion abnormalities. Grade 1 diastolic dysfunction. Right Ventricle Normal in size and function Right Atrium Normal in size Left Atrium Normal in size Mitral Valve Structurally normal mitral valve. Mild mitral regurgitation. Aortic Valve Aortic valve is thickened. No significant stenosis or regurgitation. Tricuspid Valve Mild tricuspid regurgitation. Insufficient TR jet to calculate RVSP. Pulmonic Valve Not well visualized Pericardium Normal Aorta Normal in size IVC Appears to be normal CONCLUSIONS LV systolic function is normal with EF of 55-60% Grade 1 diastolic dysfunction Mild mitral regurgitation Mild tricuspid regurgitation Aortic valve is thickened. Harsha Felipe MD (Electronically Signed) Final Date: 07 October 2024 09:51 S
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
--- NOTE | 2024-10-06 17:06 | PHA.VACGOAL ---
Vancomycin Goal - Goal Vancomycin Goal:: 10-15 mg/L Vancomycin Indication:: Other - Therapy Day of therpy:: Day []of [] . Actual body weight (kg): 150 lb - Data Labs: WBC 10.85 10^3/uL (3.29-11.43) 10/06/24 13:32 Corrected WBC Cancelled 10/06/24 11:52 RBC 3.93 10^6/uL (3.85-5.65) 10/06/24 13:32 Hgb 11.90 g/dL (11.27-16.99) 10/06/24 13:32 Hct 35.2 % (36-47) L 10/06/24 13:32 MCV 89.6 fl (85-98) 10/06/24 13:32 MCH 30.3 pg (27-33) 10/06/24 13:32 MCHC 33.8 g/dL (30-55) 10/06/24 13:32 RDW 14.0 % (12.1-15.1) 10/06/24 13:32 Sodium 130 mmol/L (136-145) L 10/06/24 11:52 Potassium 3.0 mmol/L (3.5-5.1) L 10/06/24 11:52 Chloride 95 mmol/L (98-107) L 10/06/24 11:52 Carbon Dioxide 18 mmol/L (22-29) L 10/06/24 11:52 Anion Gap 20.0 (5-19) H 10/06/24 11:52 BUN 48 mg/dL (6-20) H 10/06/24 11:52 Creatinine 2.0 mg/dL (0.5-0.9) H 10/06/24 11:52 GFR Calculation 25.8 mL/min (90-130) L 10/06/24 11:52 Last dialysis session:: N/A Treatment plan:: new consult Regimen:: MAINTENANCE DOSE OF 1000 MG Q24H PER DOSING PROTOCOL Follow up:: WILL CONTINUE TO MONITOR AND FOLLOW UP DAILY
[2024-10-06] MEDS: potassium chloride ER 20 mEq Tablet 80 MEQ PO (17:48)
[2024-10-06] MEDS: aspirin 81 mg EC Tablet PO (17:49)
[2024-10-06] MEDS: VANCOMYCIN ADD-Vantage 1,000 MG in 0.9% NaCl ADD-Vantage 250 ML 250 MG IV (18:00)
[2024-10-06 20:22] LABS: Blood Urea Nitrogen 39 mg/dL (6-20); Calcium 8.2 mg/dL (8.5-10.5); Carbon Dioxide 20 mmol/L (22-29); Chloride 99 mmol/L (98-107); Creatinine Clr Calc Pharmacy 38.9202; Glomerular Filtration Rate 33.3 mL/min (90-130); Glucose 136 mg/dL (65-115); Osmolality Calculated 289 mOsm/kg (285-295); Sodium 134 mmol/L (136-145)
[2024-10-06 21:00] LABS: Anion Gap 18.2 (5-19); Potassium 3.2 mmol/L (3.5-5.1)
[2024-10-07] VITALS (7 sets, daily range): BP systolic 122–152; BP diastolic 83–92; PULSE 79–94; RESP 16–20; TEMP 36.6–36.9; O2SAT 90–97
[2024-10-07] MEDS: heparin 5,000 unit/mL INJ 1 mL 5000 UNIT SUBCUT ×2 (05:51→17:53)
[2024-10-07] MEDS: pantoprazole 40 mg SDV IVP ×2 (05:51→17:52)
[2024-10-07] MEDS: amlodipine 10 mg Tablet PO (05:51)
[2024-10-07 06:09] LABS: Basophils % 0.1 %; Eosinophils % 0.2 %; Hematocrit 33.5 % (36-47); Lymphocytes % 15.1 %; Mean Corpuscular HGB Conc 33.7 g/dL (30-55); Mean Corpuscular Hemoglobin 31.2 pg (27-33); Mean Corpuscular Volume 92.5 fl (85-98); Monocytes # 1.4 10^3/uL (0.2-0.9); Monocytes % 10.9 %; Neutrophils # 9.46 10^3/uL (1.8-7.7); Nucleated Red Blood Cells % 0 %; Platelet Count 313 10^3/cmm (157-399); Red Blood Count 3.62 10^6/uL (3.85-5.65); Red Cell Distribution Width 14.5 % (12.1-15.1); White Blood Count 12.95 10^3/uL (3.29-11.43)
[2024-10-07 06:30] LABS: Alanine Aminotransferase 33 U/L (0-33); Albumin Level 3.4 g/dL (3.5-5.2); Alkaline Phosphatase 90 U/L (35-105); Anion Gap 15.2 (5-19); Aspartate Amino Transferase 48 U/L (0-32); Blood Urea Nitrogen 33 mg/dL (6-20); Calcium 8.4 mg/dL (8.5-10.5); Carbon Dioxide 21 mmol/L (22-29); Chloride 105 mmol/L (98-107); Creatinine Clr Calc Pharmacy 44.4802; Globulin 2.6 g/dL (1.3-4.6); Glomerular Filtration Rate 38.9 mL/min (90-130); Glucose 101 mg/dL (65-115); Magnesium 1.8 mg/dL (1.7-2.3); Osmolality Calculated 293 mOsm/kg (285-295); Phosphorus 1.1 mg/dL (2.5-4.5); Potassium 3.2 mmol/L (3.5-5.1); Sodium 138 mmol/L (136-145); Total Bilirubin 0.3 mg/dL (0.15-1.2)
[2024-10-07 06:46] LABS: Creatine Phosphokinase 828 U/L (26-192)
[2024-10-07] MEDS: metoprolol tartrate 25 mg Tablet 37.5 MG PO ×2 (08:41→17:52)
[2024-10-07] MEDS: predniSONE 20 mg Tablet 40 MG PO (08:41)
[2024-10-07] MEDS: duloxetine 60 mg Capsule PO ×2 (08:41→17:52)
[2024-10-07] MEDS: oseltamivir phosphate 30 mg Capsule PO ×2 (08:41→17:53)
[2024-10-07] MEDS: sodium chloride 0.9% 1,000 ML 75 ML IV (11:05)
--- NOTE | 2024-10-07 12:10 | PC.SOCIAL ---
IMM Update pg 2 of IMM Updated and reviewed w/ patient. Copy provided and copy dated, initialed and placed in chart.
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
--- NOTE | 2024-10-07 14:29 | XR_ITS ---
WS: [id number] Portable AP upright chest, 10/07/2024 Clinical Data: Flu positive, possible pneumonia Comparison: Portable chest, 10/05/2024 Findings: No nodules, masses or effusions are seen. The heart is normal. The pulmonary vascularity is not increased. No pneumonia or pneumothorax is seen. The aortic arch shows mild tortuosity as does the descending thoracic aorta. XR/XR chest 1V portable [id number] Impression: Atherosclerosis.
[2024-10-07] MEDS: cefTRIAXone 1,000 mg SDV 1000 MG IVP (15:11)
[2024-10-07] MEDS: potassium chloride ER 20 mEq Tablet 40 MEQ PO (15:12)
[2024-10-07] MEDS: VANCOMYCIN ADD-Vantage 1,000 MG in 0.9% NaCl ADD-Vantage 250 ML 250 MG IV (17:52)
[2024-10-07] MEDS: aspirin 81 mg EC Tablet PO (17:53)
[2024-10-08] VITALS (7 sets, daily range): BP systolic 132–165; BP diastolic 88–100; PULSE 71–85; RESP 16–18; TEMP 36.6–37.1; O2SAT 92–98
[2024-10-08] MEDS: sodium chloride 0.9% 1,000 ML 75 ML IV (00:33)
[2024-10-08 02:45] LABS: Basophils % 0.1 %; Eosinophils % 0.4 %; Hematocrit 34.8 % (36-47); Lymphocytes # 2.4 10^3/uL (0.8-4.8); Lymphocytes % 23.3 %; Mean Corpuscular Hemoglobin 30.5 pg (27-33); Mean Corpuscular Volume 92.3 fl (85-98); Mean Platelet Volume 10.5 fL (7.4-10.4); Monocytes # 1.1 10^3/uL (0.2-0.9); Monocytes % 10.4 %; Neutrophils # 6.73 10^3/uL (1.8-7.7); Neutrophils % 64.6 %; Nucleated Red Blood Cells % 0 %; Platelet Count 321 10^3/cmm (157-399); Red Blood Count 3.77 10^6/uL (3.85-5.65); Red Cell Distribution Width 14.5 % (12.1-15.1)
[2024-10-08 03:06] LABS: Alanine Aminotransferase 29 U/L (0-33); Albumin Level 3.5 g/dL (3.5-5.2); Alkaline Phosphatase 89 U/L (35-105); Anion Gap 14.6 (5-19); Aspartate Amino Transferase 36 U/L (0-32); Blood Urea Nitrogen 26 mg/dL (6-20); Calcium 8.7 mg/dL (8.5-10.5); Carbon Dioxide 23 mmol/L (22-29); Chloride 107 mmol/L (98-107); Creatinine Clr Calc Pharmacy 62.2723; Globulin 2.8 g/dL (1.3-4.6); Glomerular Filtration Rate 57.4 mL/min (90-130); Glucose 95 mg/dL (65-115); Magnesium 1.5 mg/dL (1.7-2.3); Osmolality Calculated 297 mOsm/kg (285-295); Phosphorus 1.3 mg/dL (2.5-4.5); Potassium 3.6 mmol/L (3.5-5.1); Sodium 141 mmol/L (136-145); Total Bilirubin 0.2 mg/dL (0.15-1.2); Total Protein 6.3 g/dL (6.6-8.7)
[2024-10-08] MEDS: amlodipine 10 mg Tablet PO (06:11)
[2024-10-08] MEDS: heparin 5,000 unit/mL INJ 1 mL 5000 UNIT SUBCUT ×2 (06:11→17:03)
[2024-10-08] MEDS: duloxetine 60 mg Capsule PO ×2 (08:25→17:03)
[2024-10-08] MEDS: predniSONE 20 mg Tablet 40 MG PO (08:25)
[2024-10-08] MEDS: oseltamivir phosphate 30 mg Capsule PO (08:25)
[2024-10-08] MEDS: metoprolol tartrate 25 mg Tablet 37.5 MG PO ×2 (08:25→17:02)
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
[2024-10-08] MEDS: cefTRIAXone 1,000 mg SDV 1000 MG IVP (15:48)
[2024-10-08] MEDS: VANCOMYCIN ADD-Vantage 750 MG in 0.9% NaCl ADD-Vantage 250 ML 250 MG IV (15:52)
[2024-10-08] MEDS: pantoprazole 40 mg SDV IVP (17:01)
[2024-10-08] MEDS: aspirin 81 mg EC Tablet PO (17:03)
[2024-10-08] MEDS: oseltamivir phosphate 75 mg Capsule PO (17:13)
[2024-10-09] VITALS: BP 123/78; PULSE 81; RESP 18; TEMP 36.8; O2SAT 94
[2024-10-09] MEDS: VANCOMYCIN ADD-Vantage 750 MG in 0.9% NaCl ADD-Vantage 250 ML 250 MG IV (03:14)
[2024-10-09 04:00] VITALS: BP 149/91; PULSE 73; RESP 17; TEMP 36.8; O2SAT 93
[2024-10-09 08:00] VITALS: BP 146/99; PULSE 61; RESP 16; TEMP 36.7; O2SAT 96
[2024-10-09] MEDS: duloxetine 60 mg Capsule PO (08:16)
[2024-10-09] MEDS: metoprolol tartrate 25 mg Tablet 37.5 MG PO (08:17)
[2024-10-09] MEDS: predniSONE 20 mg Tablet 40 MG PO (08:17)
[2024-10-09] MEDS: pantoprazole 40 mg SDV IVP (08:18)
[2024-10-09] MEDS: amlodipine 10 mg Tablet PO (08:18)
[2024-10-09] MEDS: oseltamivir phosphate 75 mg Capsule PO (08:18)
[2024-10-09] MEDS: heparin 5,000 unit/mL INJ 1 mL 5000 UNIT SUBCUT (08:26)
[2024-10-09 10:58] VITALS: PULSE 79; RESP 18; O2SAT 97
--- NOTE | 2024-10-09 11:00 | P.PN_ITS ---
Subjective 2 Subjective: ID progress note no acute interim events Medications: Reviewed: Yes Vitals/I&O/Wt Last Vital Signs Temp 98.0 F 10/09/24 12:45 Pulse 72 10/09/24 12:45 Resp 16 10/09/24 12:45 BP 134/89 10/09/24 12:45 Pulse Ox 94 10/09/24 12:45 O2 Del Method Room Air 10/09/24 11:21 10/09/24 10/09/24 10/10/24 14:59 22:59 06:59 Intake Total 240 / 240 Balance 240 / 240 Weight last 48 hrs Weight 70.562 kg Weight 70.562 kg Weight 70.562 kg Physical Exam 2 Narrative: General: No acute distress, AO x3 HEENT: PERRLA, pupils bilaterally equal and reactive, pallors not present Chest: Normal vesicular breath sounds, no added sounds, equal good air entry bilaterally CVS: S1-S2 regular, no murmurs, no tachycardia, no gallops, no rubs Abdomen: Soft, nontender, no organomegaly, bowel sounds present Neuro: No focal deficits, no facial deformity, AO x3, power 5/5 in all limbs Urinary Catheter Management: Abel: Cath Placed During This Visit: yes, but has since been removed by the nurse Reason for Continuing Indwelling Catheter: Accurate Measurement of Urinary Output in Critically Ill Patients Urinary Catheter Date of Insertion: 10/05/24 Urinary Catheter Time of Insertion: 18:06 Date Urinary Catheter Removed: 10/08/24 Time Urinary Catheter Discontinued: 13:07 Data 10/08/24 02:12 10/08/24 02:12 Micro: Microbiology 10/05/24 21:00 Blood Culture - Preliminary Blood Staphylococcus hominis 10/07/24 13:00 Gram Stain - Final Sputum - Expectorated Sputum Sputum Culture - Final A&P Assessment and plan (1) Bacteremia due to Staphylococcus: 54-year-old lady with multiple comorbidities as listed above presenting to the hospital with nausea vomiting, recently influenza positive, dehydration and acute kidney injury. She is getting definitive management for these issues. Infectious disease service consulted when incidentally 1 out of 4 blood culture resulted positive for Staphylococcus species from October 05, 2024. Isolate has been reported as MecA positive based on PCR, without further information on susceptibility testing. Mec A positive Staphylococcus isolates may be airport representative of either Staph aureus or coagulase-negative Staphylococcus. Without a coagulase test (lab unable to do this at this present time) or further identification from biochemical testing, it is not possible to know which of the 2 isolates were dealing with here. Will await final identification from microbiology lab. If isolate is finally identified to be coag negative Staphylococcus, would favor this to be a contaminant especially in the absence of any other obvious signs or symptoms of infection at this time. If isolate is identified to be Staph aureus, will need terminal operations supervisor iv abx tteatment to the tune of 4-6 weeks with extensive source evaluation. prt blood cx from 10/07 thus far negative to date 10/09/24 : Blood cx identified as 09/05 CoNS- staph hominis- likely contaminant. Patient asymptomatic. No further abx indicated at this time. PDMP PDMP Reviewed: Not Reviewed Attestations 2 Medical Necessity Statement*: per admitting Coding Level of Care Code Acute Code for [facility] Diagnoses Bacteremia due to Staphylococcus R78.81; B95.8
[2024-10-09 11:21] VITALS: BP 134/89; PULSE 72; RESP 16; TEMP 36.7; O2SAT 94
--- NOTE | 2024-10-09 11:43 | PC.NURSE ---
Patient stopped at the nurses station and stated, I am being discharged after lab work so I am going out to smoke. Explained to the patient that she should not leave the floor with her IV in her arm and that this is a smoke free facility including the parking lot. Patient states, I am not going to smoke in the building but I am also not going to argue with you about the parking lot. Patient took the stares down stairs and security called.
--- NOTE | 2024-10-09 11:49 | PM.DCS ---
Discharge Providers Date of Admission: 10/05/24 17:41 Date of Discharge: October 09, 2024 Attending Provider at Admission: Adrian Agosto MD Attending Provider at Discharge: Adrian Aogsto MD Consults: ID: Dr. Pedraza Primary Care Provider: Bucky Rogers MD Diagnoses at Discharge Discharge Diagnosis (1) Bacteremia due to Staphylococcus: Status: Acute (2) Hyponatremia: Status: Acute (3) Nausea & vomiting: Status: Acute (4) LEVY (acute kidney injury): Status: Acute (5) Acute renal failure due to rhabdomyolysis: Status: Acute (6) Acute hypokalemia: Status: Acute (7) Dehydration: Status: Acute (8) Influenza A: Status: Acute (9) Viral myositis: Status: Acute (10) MRSA (methicillin resistant staph aureus) culture positive: Status: Acute Reason for Visit Reason for Visit: flu like symptoms Hospital Course Hospital Course Rachelle Mireles is a 54 year old female with past medical history of hypertension, cyclic vomiting, uses marijuana came to the ER today with concerns for nausea and vomiting, myalgias. This is her third visit in the last 3 days with similar complaints. She was tested positive for influenza A on 10/03. Patient denies any difficulty in breathing but does complain of cough. In the ER patient was found to be having nausea with episodes of dry heaving. She states she is not able to maintain oral hydration. She was seen a few times trying to induce vomiting while being in the ER. She also complains of diarrhea for last 2 days with last episode today morning. Blood work done in the ER showed leukocytosis up to 13,000, LEVY with creatinine of 4.8, BUN of 64, sodium of 133 with chloride of 88 with CPK of more than 3000, transaminitis Patient was admitted to the hospital further evaluation management. She was started on IV hydration along with treatment for influenza A with Tamiflu. She responded well to the treatment and her kidney functions have consistently improved. Her nausea and vomiting has resolved. Her blood cultures from admission 1 out of 4 bottles was positive for Staphylococcus. At first it was read as MRSA on molecular testing but later on identification came back as Staphylococcus hominis. Given her past history of MRSA bacteremia, multiple hardware implants in body ID was consulted. Repeat blood cultures are so far negative. She has been discharged home on continuation of her home meds, oral steroids for 2 more days with advised to maintain oral hydration off antibiotics. She is to follow-up with a primary care provider within next 2 weeks for repeat BMP. Physical Exam Narrative: General: AO x3, in no acute distress HEENT: PERRLA, pupils bilaterally equal and reactive Chest: Normal vesicular breath sounds, no added sounds, equal good air entry bilaterally CVS: S1-S2 regular, no murmurs, no tachycardia, no gallops, no rubs Abdomen: Soft, nontender, no organomegaly, bowel sounds present Neuro: No focal deficits, no facial deformity, AO x3, power 5/5 in all limbs Urinary Catheter Management: Abel: Cath Placed During This Visit: yes, but has since been removed by the nurse Reason for Continuing Indwelling Catheter: Accurate Measurement of Urinary Output in Critically Ill Patients Urinary Catheter Date of Insertion: 10/05/24 Urinary Catheter Time of Insertion: 18:06 Date Urinary Catheter Removed: 10/08/24 Time Urinary Catheter Discontinued: 13:07 Discharge Data Studies Completed and Pending Completed Studies During Hospitalization Category Date Time Status CT abdomen pelvis wo con [id number] Stat Cat Scan 10/05/24 15:23 Completed XR chest 1V portable [id number] Routine Exams 10/07/24 14:29 Completed XR chest 1V portable [id number] Urgent Exams 10/05/24 14:06 Completed CV. echo complete* [id number] Routine Ultrasound 10/06/24 17:00 Completed Pending at discharge Category Date Time Status Blood Culture AM LABS Lab 10/07/24 05:50 Results Blood Culture Stat Lab 10/05/24 21:10 Results C.Diff PCR (Lab) Routine Lab 10/05/24 19:05 Ordered Complete Blood Count w/Auto Stat Lab 10/09/24 11:05 Ordered Comprehensive Metabolic Panel Routine Lab 10/09/24 11:05 Ordered Lactoferrin Routine Lab 10/05/24 19:05 Ordered OVA and Parasites, Conc and PE Routine Lab 10/05/24 19:05 Ordered Salmonella / Shigella / Campy Routine Lab 10/05/24 19:05 Ordered Vancomycin Trough Routine Lab 10/09/24 15:00 Ordered Radiology Impressions Abdomen/Pelvis CT 10/05/24 15:23 IMPRESSION: 1. No acute findings within the abdomen or pelvis. 2. Stable nonemergent findings as above. Chest X-Ray 10/07/24 14:29 Impression: Atherosclerosis. Microbiology 10/05/24 21:00 Blood Blood Culture - Preliminary Staphylococcus hominis 10/07/24 13:00 Sputum - Expectorated Sputum Gram Stain - Final 10/07/24 13:00 Sputum - Expectorated Sputum Sputum Culture - Final 10/07/24 05:50 Blood Blood Culture - Preliminary NEGATIVE TO DATE 10/07/24 05:45 Blood Blood Culture - Preliminary NEGATIVE TO DATE 10/05/24 21:10 Blood Blood Culture - Preliminary NEGATIVE TO DATE 10/05/24 18:02 Urine Kidney Bacterial Antigens - Final Laboratory Results WBC 10.40 10^3/uL (3.29-11.43) 10/08/24 02:12 Corrected WBC Cancelled 10/06/24 11:52 RBC 3.77 10^6/uL (3.85-5.65) L 10/08/24 02:12 Hgb 11.50 g/dL (11.27-16.99) 10/08/24 02:12 Hct 34.8 % (36-47) L 10/08/24 02:12 MCV 92.3 fl (85-98) 10/08/24 02:12 MCH 30.5 pg (27-33) 10/08/24 02:12 MCHC 33.0 g/dL (30-55) 10/08/24 02:12 RDW 14.5 % (12.1-15.1) 10/08/24 02:12 Plt Count 321 10^3/cmm (157-399) 10/08/24 02:12 MPV 10.5 fL (7.4-10.4) H 10/08/24 02:12 Gran % Cancelled 10/06/24 11:52 Neut % (Auto) 64.6 % 10/08/24 02:12 Lymph % (Auto) 23.3 % 10/08/24 02:12 [place] % (Auto) 10.4 % 10/08/24 02:12 Eos % (Auto) 0.4 % 10/08/24 02:12 Baso % (Auto) 0.1 % 10/08/24 02:12 Neut # (Auto) 6.73 10^3/uL (1.8-7.7) 10/08/24 02:12 Lymph # (Auto) 2.4 10^3/uL (0.8-4.8) 10/08/24 02:12 [place] # (Auto) 1.1 10^3/uL (0.2-0.9) H 10/08/24 02:12 Eos # (Auto) 0.0 10^3/uL (0.0-0.8) 10/08/24 02:12 Baso # (Auto) 0.0 10^3/uL (0.0-0.1) 10/08/24 02:12 Absolute Gran (auto) Cancelled 10/06/24 11:52 Nucleated RBC % (auto) 0 % 10/08/24 02:12 Nucleated RBCs # 0.0 /100WBC 10/08/24 02:12 Sodium 141 mmol/L (136-145) 10/08/24 02:12 Potassium 3.6 mmol/L (3.5-5.1) 10/08/24 02:12 Chloride 107 mmol/L (98-107) 10/08/24 02:12 Carbon Dioxide 23 mmol/L (22-29) 10/08/24 02:12 Anion Gap 14.6 (5-19) 10/08/24 02:12 BUN 26 mg/dL (6-20) H 10/08/24 02:12 Creatinine 1.0 mg/dL (0.5-0.9) H 10/08/24 02:12 GFR Calculation 57.4 mL/min (90-130) L 10/08/24 02:12 Glucose 95 mg/dL (65-115) 10/08/24 02:12 Estimat Average Glucose 117 10/05/24 19:46 Hemoglobin A1c 5.7 % (4.0-6.0) 10/05/24 19:46 Calculated Osmolality 297 mOsm/kg (285-295) H 10/08/24 02:12 Lactic Acid 1.7 mmol/L (0.5-2.2) 10/05/24 19:46 Calcium 8.7 mg/dL (8.5-10.5) 10/08/24 02:12 Phosphorus 1.3 mg/dL (2.5-4.5) L 10/08/24 02:12 Magnesium 1.5 mg/dL (1.7-2.3) L 10/08/24 02:12 Iron 73 ug/dL (37-145) 10/05/24 19:46 TIBC 270 mcg/dl 10/05/24 19:46 % Saturation 27.0 % (20-50) 10/05/24 19:46 Unsat Iron Binding 197 ug/dL (112-347) 10/05/24 19:46 Total Bilirubin 0.2 mg/dL (0.15-1.2) 10/08/24 02:12 AST 36 U/L (0-32) H 10/08/24 02:12 ALT 29 U/L (0-33) 10/08/24 02:12 Alkaline Phosphatase 89 U/L (35-105) 10/08/24 02:12 Creatine Kinase 828 U/L (26-192) H* 10/07/24 05:50 Total Protein 6.3 g/dL (6.6-8.7) L 10/08/24 02:12 Albumin 3.5 g/dL (3.5-5.2) 10/08/24 02:12 Globulin 2.8 g/dL (1.3-4.6) 10/08/24 02:12 Triglycerides 249 mg/dL (0-150) H 10/06/24 11:58 Cholesterol 188 mg/dL (0-200) 10/06/24 11:58 LDL Cholesterol, Calc 96 mg/dL (50-129) 10/06/24 11:58 HDL Cholesterol 42 mg/dL (60-100) L 10/06/24 11:58 LDL/HDL Ratio 2.29 RATIO (0.00-3.22) 10/06/24 11:58 Cholesterol/HDL Ratio 4.48 mg/dL (0.0-4.40) H 10/06/24 11:58 Lipase 46 U/L (13-60) 10/05/24 14:01 Vitamin B12 1190 pg/mL (232-1245) 10/05/24 19:46 Folate > 20.0 ng/mL (4.8-37.3) 10/05/24 14:07 Procalcitonin 0.15 ng/mL (0-0.5) 10/06/24 11:58 TSH 0.36 uIU/mL (0.27-4.20) 10/05/24 19:46 Urine Color Yellow (Yellow) 10/05/24 18:02 Urine Appearance Cloudy (CLEAR) A 10/05/24 18:02 Urine pH 5.0 (5-7) 10/05/24 18:02 Ur Specific [place] 1.014 (1.005-1.030) 10/05/24 18:02 Urine Protein 3+ (Negative) A 10/05/24 18:02 Urine Glucose (UA) Negative (Normal) 10/05/24 18:02 Urine Ketones Trace (Negative) 10/05/24 18:02 Urine Blood 2+ (Negative) A 10/05/24 18:02 Urine Nitrate Negative (Negative) 10/05/24 18:02 Urine Bilirubin Negative (Negative) 10/05/24 18:02 Urine Urobilinogen 1.0 mg/dL (Negative) 10/05/24 18:02 Ur Leukocyte Esterase Negative (Negative) 10/05/24 18:02 Urine RBC 0-2 /hpf (0-2) 10/05/24 18:02 Urine WBC 6-10 /hpf (0-5) 10/05/24 18:02 Ur Squamous Epith Cells 0-5 /hpf (0-5) 10/05/24 18:02 Amorphous Sediment Not Reportable 10/05/24 18:02 Urine Bacteria None seen /hpf (NONE) 10/05/24 18:02 Hyaline Casts 19.43 /lpf 10/05/24 18:02 Coarse Granular Casts 5-10 /lpf H 10/05/24 18:02 Ur Random Sodium 37 mmol/L 10/05/24 18:02 Ur Random Potassium 43 mmol/L 10/05/24 18:02 Ur Random Chloride 22 mmol/L 10/05/24 18:02 Urine Creatinine 146 mg/dL (28-217) 10/05/24 18:02 Salicylates < 0.3 mg/dL (3-10) L 10/05/24 14:01 Urine Opiates Screen Negative ng/mL (Negative) 10/05/24 18:02 Ur Barbiturates Screen Negative ng/mL (Negative) 10/05/24 18:02 Ur Phencyclidine Scrn Negative ng/mL (Negative) 10/05/24 18:02 Ur Amphetamines Screen Negative ng/mL (Negative) 10/05/24 18:02 U Benzodiazepines Scrn Negative ng/mL (Negative) 10/05/24 18:02 Urine Cocaine Screen Negative ng/mL (Negative) 10/05/24 18:02 U Marijuana (THC) Screen Positive ng/mL (Negative) H 10/05/24 18:02 Ethyl Alcohol < 10 mg/dL (0-10) 10/05/24 14:01 Vitals Last Vital Signs Temp 98.0 F 10/09/24 11:21 Pulse 72 10/09/24 11:21 Resp 16 10/09/24 11:21 BP 134/89 10/09/24 11:21 Pulse Ox 94 10/09/24 11:21 O2 Del Method Room Air 10/09/24 11:21 Discharge Plan Discharge Patient Disposition: Home Condition: Stable Prescriptions: New prednisone 20 mg Tablet 40 mg PO DAILY Qty: 4 0RF Continued red yeast rice 600 mg capsule 300 mg PO BID Rx Instructions: give with meal/snack Cymbalta 60 mg capsule,delayed release(DR/EC) 60 mg PO BID Qty: 60 0RF Cosentyx Pen (2 Pens) 150 mg/mL pen injector 300 mg SUBCUT DIRECTED Qty: 2 4RF Rx Instructions: Start 300 mg SC q week x 5 weeks; then q 4 weeks for maintenance pantoprazole 40 mg tablet,delayed release (DR/EC) 40 mg PO BID amlodipine 10 mg tablet 10 mg PO QAM metoprolol tartrate 37.5 mg tablet 37.5 mg PO BID potassium chloride 20 mEq tablet extended release 20 meq PO DAILY Qty: 7 0RF aspirin 81 mg tablet,delayed release (DR/EC) 81 mg PO QPM atorvastatin 40 mg tablet 40 mg PO QPM clobetasol 0.05 % ointment See Rx Instructions .ROUTE .COMPLEX Rx Instructions: APPLY TO RASH TWICE DAILY ON TRUNK AND EXTREMITIES NO MORE THAN 2 WEEKS PER MONTH NEEDED. clobetasol 0.05 % solution See Rx Instructions .ROUTE .COMPLEX Rx Instructions: topically Discharge Orders: Discharge Order (Routine); Ordered 10/09/24 Ordered By: Adrian Agosto Referrals: Bucky Rogers MD [Primary Care Provider] - 10/19/24 1:30 pm Discharge Diet: Cardiac Discharge Activity: Resume usual activity and Increase activity as tolerated Patient Instructions: Opioid Safety Discharge Attestations Time Spent in Discharge Care*: greater than 30 min Specific Discharge Activities: educating patient, discussing with pcp/other providers, discussing with nurse outreach case manager/social workers/dc planners, documenting/other paperwork and evaluating patient/reviewing data Status at Discharge: Cognitive status at discharge: cognitively intact, Behavioral status at discharge: cooperative, can be uncooperative and independent in ADL's, Functional status at discharge: independent ambulation, Overall status at discharge: patient is back to baseline Quality Metrics Clinical Quality Measures [ No reported AMI, CVA or VTE this stay] Coding Level of Care Code 19428 Total time (in minutes) for Discharge: 60 Diagnoses Bacteremia due to Staphylococcus R78.81; B95.8 Hyponatremia E87.1 Nausea & vomiting R11.2 LEVY (acute kidney injury) N17.9 Acute renal failure due to rhabdomyolysis N17.9; M62.82 Acute hypokalemia E87.6 Dehydration E86.0 Influenza A J10.1 Viral myositis M60.009; B97.89 MRSA (methicillin resistant staph aureus) culture positive Z22.322
--- NOTE | 2024-10-09 11:50 | PC.NURSE ---
Dr. Espinal notified of patient leaving the floor. Patient returned to the floor at this time.
--- NOTE | 2024-10-09 12:02 | PC.SOCIAL ---
IMM Update pg 2 of IMM Updated and reviewed w/ patient. Copy provided and copy dated, initialed and placed in chart.
--- NOTE | 2024-10-09 12:44 | PC.NURSE ---
Discharge Note Patient discharged to home via private vehicle accompanied by self. Discharge instructions reviewed with patient and/or internet sales representative. Mobile pharmacy medications and/or prescriptions provided. Belongings/home medications returned.
[2024-10-09 12:45] VITALS: BP 134/89; PULSE 72; RESP 16; TEMP 36.7; O2SAT 94
== END 2024-10-09 12:46 | disposition home or self-care (01) | DRG 194 ==
LOC: ER 17:21 → ER IP 17:42 → MEDSURG 17:49
PROVIDERS: Admitting Provider Student in an Organized Health Care Education/Training Program; Emergency Provider Physician Assistant; PCP Family Medicine; Visit Provider Student in an Organized Health Care Education/Training Program
DX: J10.1 Influenza due to other identified influenza virus with other respiratory manifestations (principal); E87.1 Hypo-osmolality and hyponatremia; N17.9 Acute kidney failure, unspecified; M62.82 Rhabdomyolysis; E87.6 Hypokalemia; E86.0 Dehydration; M60.80 Other myositis, unspecified site; F12.20 Cannabis dependence, uncomplicated; Z79.82 Long term (current) use of aspirin; Z87.440 Personal history of urinary (tract) infections; R11.2 Nausea with vomiting, unspecified; I12.9 Hypertensive chronic kidney disease with stage 1 through stage 4 chronic kidney disease, or unspecified chronic kidney disease; K21.9 Gastro-esophageal reflux disease without esophagitis; M10.9 Gout, unspecified; Z98.1 Arthrodesis status; Z86.19 Personal history of other infectious and parasitic diseases; Z96.651 Presence of right artificial knee joint; L40.9 Psoriasis, unspecified; A08.4 Viral intestinal infection, unspecified; Z87.891 Personal history of nicotine dependence; F43.12 Post-traumatic stress disorder, chronic; F33.41 Major depressive disorder, recurrent, in partial remission
CPT/HCPCS: 36415; 51702; 71045; 74176; 80048; 80053; 80061; 80306; 80307; 81001; 82436; 82550; 82570; 82607; 82746; 83036; 83540; 83550; 83605; 83690; 83735; 84100; 84133; 84145; 84300; 84443; 85025; 86403; 87040; 87070; 87077; 87150; 87186; 87205; 87637; 93306; 94664; 96372; 96374; 96375; 99284; 99285; J0360; J0696; J0780; J1200; J1644; J1885; J2060; J2270; J2405; J2470; J2550; J3370; J3490; J7030; J7050; J7512

== ENCOUNTER → 2024-11-05 14:39 | Outpatient (BNVA) | payer MEDICARE, MEDICAID, SELFPAY | PROVIDERS: PCP Family Medicine; Visit Provider Orthopaedic Surgery | DX: M54.50 Low back pain, unspecified (principal) | CPT/HCPCS: 72110; 99204 ==

== ENCOUNTER 2024-11-11 12:47 | Outpatient (CLI) | payer MEDICARE, MEDICAID, SELFPAY ==
--- NOTE | 2024-11-11 12:56 | CT_ITS ---
WS: [id number] LDCT LUNG CANCER SCREENING TECHNIQUE: Noncontrast CT of the chest with coronal and sagittal reformatted images. CLINICAL INFORMATION: F17.210 Nicotine dependence, cigarettes, uncomplicated COMPARISON: 2021 DLP: 55.61 mGy.cm DIvol: Mean CTDIvol: 1.00 (mGy) All CT scans at [facility] use at least one of these dose optimization techniques: automated exposure control; mA and/or kV adjustment per patient size (includes targeted exams where dose is matched to clinical indication); or iterative reconstruction. FINDINGS: Advanced chronic emphysematous changes. A few scattered micronodules. Slight bibasilar atelectasis. Normal caliber thoracic aorta. No mediastinal or hilar lymphadenopathy. No axillary lymphadenopathy. Cholecystectomy clips. Normal GE junction. Prominent breast tissue along the RIGHT axillary tail. Mammography is pending. Adrenal glands are normal. Partially visualized LEFT renal cysts. Mild thoracic curve. CT/CT lung screening [id number] IMPRESSION: LUNG-RADS: 1-Negative FOLLOW UP: 12 Month: Continue annual screening with LDCT
--- NOTE | 2024-11-11 12:59 | MM_ITS ---
WS: [id number] BILATERAL 3D TOMOSYNTHESIS DIGITAL SCREENING MAMMOGRAPHY WITH CAD CLINICAL INFORMATION: SCREENING HISTORY: Screening mammogram. No current complaints. COMPARISON: 2023 TECHNIQUE: Bilateral CC and MLO views. FINDINGS: The breasts are composed of heterogeneous fibroglandular density tissue, which can limit the detection of small underlying mass lesions. No suspicious mass, asymmetry, calcifications, or architectural distortion. No evidence of malignancy. MM/MM scr tomosynthesis [id number] IMPRESSION: DENSITY: The breasts are heterogeneously dense, which may obscure small masses. BI-RADS: 1 - Negative FOLLOW UP: 1 Year Follow-up Recommend return to annual screening mammography.
== END 2024-11-11 12:48 | disposition home or self-care (01) ==
PROVIDERS: PCP Family Medicine; Visit Provider Family Medicine
DX: Z12.31 Encounter for screening mammogram for malignant neoplasm of breast (principal); Z12.2 Encounter for screening for malignant neoplasm of respiratory organs; F17.210 Nicotine dependence, cigarettes, uncomplicated; R92.333 Mammographic heterogeneous density, bilateral breasts; J43.9 Emphysema, unspecified; R91.8 Other nonspecific abnormal finding of lung field; Z90.49 Acquired absence of other specified parts of digestive tract; N28.1 Cyst of kidney, acquired; M43.8X4 Other specified deforming dorsopathies, thoracic region
CPT/HCPCS: 71271; 77063; 77067

== ENCOUNTER 2024-11-18 12:38 | Outpatient (CLI) | payer MEDICARE, MEDICAID, SELFPAY ==
--- NOTE | 2024-11-18 13:00 | MR_ITS ---
WS: [id number] MRI LUMBAR SPINE NONCONTRAST TECHNIQUE: Sagittal T1, T2 and STIR imaging. Axial T1 and T2 imaging. CLINICAL INFORMATION: low back pain COMPARISON: MRI 2012 FINDINGS: L5 is transitional and sacralized with a rudimentary disc space. Counting performed from the craniocervical junction and is concordant with 2012 numbering convention. Interval postoperative changes sacroiliac screw fixation. This results in susceptibility artifact and degrades some images Clumping of the cauda equina nerve roots at L3-L5 compatible with arachnoiditis L1-L2: Mild annular bulging. Narrowing of the RIGHT greater than LEFT subarticular recess. Mild RIGHT foraminal narrowing. Mild facet arthropathy. L2-L3: Mild annular bulging. Slight impingement subarticular recess bilaterally. Mild facet arthropathy. Mild RIGHT greater than LEFT foraminal narrowing. Small bilateral foraminal protrusions with slight contact of the exiting L2 nerve roots L3-L4: Mild disc bulging. Arachnoiditis with clumping of the cauda equina nerve rootlets. Small bilateral foraminal protrusions with contact of the exiting L3 nerve roots. Mild bilateral foraminal narrowing. Mild facet arthropathy. L4-L5: Mild annular bulging. Narrowing of the RIGHT greater than LEFT subarticular recess. Severe RIGHT foraminal narrowing with impingement on the exiting RIGHT L4 nerve root. RIGHT foraminal protrusion. LEFT foramen is patent. Mild facet arthropathy. Clumping of the cauda equina nerve rootlets. L5-S1: L5 is transitional and sacralized. Visualized pelvic bony structures: Normal. Paravertebral soft tissues: Normal. LEFT renal cysts. MR/MR lumbar spine wo con* [id number] IMPRESSION: 1. Clumping of the cauda equina nerve roots with peripheral displacement at L3 -L5 compatible with arachnoiditis 2. Small amount of facet synovitis at L3-L4 and at L4-5 likely degenerative or inflammatory 3. Severe RIGHT L4-5 foraminal narrowing with impingement on the exiting RIGHT L4 nerve root with RIGHT foraminal protrusion. 4. Narrowing of the RIGHT L1-2 and bilateral L2-L3 subarticular recess. 5. Small RIGHT foraminal protrusion at L2-3 impinges the exiting RIGHT L2 nerv e root. 6. Small bilateral foraminal protrusions L3-4 with small annular fissures with impingement on the RIGHT greater than LEFT L3 nerve roots.
== END 2024-11-18 12:39 | disposition home or self-care (01) ==
LOC: RAD 12:41
PROVIDERS: PCP Family Medicine; Visit Provider Orthopaedic Surgery
DX: M48.061 Spinal stenosis, lumbar region without neurogenic claudication (principal); R93.7 Abnormal findings on diagnostic imaging of other parts of musculoskeletal system; M65.88 Other synovitis and tenosynovitis, other site; M51.26 Other intervertebral disc displacement, lumbar region; M43.27 Fusion of spine, lumbosacral region; Z98.890 Other specified postprocedural states; M51.369 Other intervertebral disc degeneration, lumbar region without mention of lumbar back pain or lower extremity pain; M47.896 Other spondylosis, lumbar region; G03.9 Meningitis, unspecified; N28.1 Cyst of kidney, acquired
CPT/HCPCS: 72148

== ENCOUNTER → 2024-11-24 13:06 | Outpatient (BNVA) | payer MEDICARE, MEDICAID, SELFPAY | PROVIDERS: PCP Family Medicine; Visit Provider Dermatology | DX: L40.0 Psoriasis vulgaris (principal); F42.4 Excoriation (skin-picking) disorder; L40.8 Other psoriasis | CPT/HCPCS: 99214 ==

== ENCOUNTER → 2024-11-25 14:16 | Outpatient (BNVA) | payer MEDICARE, MEDICAID, SELFPAY | PROVIDERS: PCP Family Medicine; Visit Provider Podiatrist Foot & Ankle Surgery | DX: L60.8 Other nail disorders (principal); Z98.890 Other specified postprocedural states; L97.522 Non-pressure chronic ulcer of other part of left foot with fat layer exposed; M20.41 Other hammer toe(s) (acquired), right foot; M20.42 Other hammer toe(s) (acquired), left foot | CPT/HCPCS: 99213 ==

== ENCOUNTER → 2024-11-26 14:52 | Outpatient (BNVA) | payer MEDICARE, MEDICAID, SELFPAY | PROVIDERS: PCP Family Medicine; Visit Provider Orthopaedic Surgery | DX: M48.062 Spinal stenosis, lumbar region with neurogenic claudication (principal); Z01.818 Encounter for other preprocedural examination; Z09 Encounter for follow-up examination after completed treatment for conditions other than malignant neoplasm | CPT/HCPCS: 36415; 80053; 81001; 85025; 99214 ==

== ENCOUNTER 2024-12-02 08:48 | Day surgery (SDC) | payer MEDICARE, MEDICAID, SELFPAY ==
[2024-12-02] VITALS (10 sets, daily range): BP systolic 96–123; BP diastolic 2–96; PULSE 72–84; RESP 12–21; TEMP 36.3–36.9; O2SAT 94–100; BMI 25.8
--- NOTE | 2024-12-02 09:02 | ANES.PREANE2 ---
Pre-Anesthetic Assessment Height/Weight: Height 1.68 m Preop Diagnosis: Lumbar stenosis with neurogenic claudication Operation Date: 12/02/24 10:20 Proposed Procedures p Lumbar Spine Decompression(Not Applicable) - Primo Brock, DO Familial anesthetic complications: NOne Was Beta Sanjuanita taken within 24 hours: N/A Was Clonidine taken within 24 hours: N/A Last intake: None Social Tobacco and No alcohol Exam alert, oriented x 3, clear to auscultation bilaterally and regular rate & rhythm CV/HEM EKG 12/08/[address] DEPRESSION [0.05+ mV ST DEPRESSION] Compared to ECG 08/20/2023 06:19:14 Sinus tachycardia no longer present Short AR interval no longer present ST (T wave) deviation still present CARDIAC EVENT MONITOR 11/20/21 1. Baseline rhythm is sinus rhythm. Heart rate ranging from 50-129, average 79 bpm. 2. One 4 beats long run of V tachycardia was asymptomatic. 3. No episodes of atrial fibrillation. 4. No patient symptoms mentioned. SESTAMIBI STRESS TEST 11/01/21 1. Normal EKG response to LexiScan infusion. 2. No LexiScan induced chest pain or cardiac arrhythmia. 3. Normal blood pressure and heart rate response. MYOCARDIAL PERFUSION SCAN 11/01/21 1. Myocardial perfusion imaging is normal. Attenuation artifact noted in basal to mid inferior and inferolateral kahn. 2. Overall left ventricular systolic function is normal without regional wall motion abnormalities. 3. The left ventricular ejection fraction is normal with a value of 73%. 4. Normal EKG response to Lexiscan infusion. Refer to separate report for details. 5. No prior similar studies to compare. ECHO 10/30/21 1. Normal left ventricular size, systolic function and mildly increased wall thickness, with no diagnostic regional wall motion abnormalities. Left ventricular ejection fraction is estimated at 70 %. Normal diastolic function. 2. Mild-moderate mitral valve regurgitation. 3. When compared to previous echocardiogram dated 05/06/2018, mitral regurgitation seems to have worsened. Neuropsych Cerebrovascular Accident Anesthetic Plan ASA status: 3 Anesthesia: General Risk of > 500 ml blood loss (7ml/kg in children): No Medications/Allergies Home Medications ?Medication ?Instructions ?Recorded ?Confirmed ?Last Taken ?Type duloxetine 60 mg capsule,delayed 60 mg PO BID #60 caps 02/15/20 12/01/24 12/01/24 Rx release (Cymbalta) pantoprazole 40 mg tablet,delayed 40 mg PO BID 09/04/21 12/01/24 12/01/24 History release aspirin 81 mg tablet,delayed 81 mg PO QPM 04/09/22 12/01/24 11/30/24 History release amlodipine 10 mg tablet 10 mg PO QAM 05/14/23 12/01/24 12/01/24 History metoprolol tartrate 37.5 mg tablet 37.5 mg PO BID 08/20/23 12/01/24 12/02/24 07:00 History atorvastatin 40 mg tablet 40 mg PO QPM 10/05/24 12/01/24 12/01/24 History clobetasol 0.05 % scalp solution See Rx Instructions .Route 10/05/24 12/01/24 12/01/24 History .COMPLEX PRN psoriasis clobetasol 0.05 % topical ointment See Rx Instructions .Route 10/05/24 12/01/24 12/01/24 History .COMPLEX PRN Rash hydrocodone 5 mg-acetaminophen 325 1 tab PO Q8H PRN pain 7 days #21 11/27/24 12/01/24 12/01/24 Rx mg tablet tabs [id number] C-Mn 500 1 cap PO BID 12/01/24 12/01/24 12/01/24 History mg-400 mg capsule ustekinumab 45 mg/0.5 mL 45 mg SUBCUT DIRECTED 12/01/24 12/01/24 11/13/24 History subcutaneous syringe (Stelara) Allergies Allergy/AdvReac Type Severity Reaction Status Date / Time clindamycin Allergy Severe Unconscious Verified 11/25/24 14:57 adhesive tape Allergy Intermediate rash, red Verified 11/25/24 14:57 codeine Allergy Unknown ALGY-Anaphy Verified 11/25/24 14:57 laxis paroxetine (From Paxil) Allergy Unconscious Verified 11/25/24 14:57 [facility] Anesthesia Medical History MRSA (methicillin resistant staph aureus) culture positive Dehydration Hyponatremia Primary osteoarthritis of left knee UTI (urinary tract infection) Metabolic acidosis Acute on chronic renal insufficiency Cyclical vomiting, intractable Sepsis Hypokalemia LEVY (acute kidney injury) Cannabinoid hyperemesis syndrome Marijuana abuse Acute kidney injury Hypochloremic alkalosis Cyclical vomiting, intractable Osteomyelitis Hardware complicating wound infection Septic arthritis Postoperative anemia History of cardiovascular stress test (~10/2021) History of Holter monitoring (~12/2021) Baseline sinus rhythm, 50-129 bpm with average 79 bpm, one 4 beat run asymptomatic vtach Dyslipidemia Chronic kidney disease Cellulitis of toe of left foot GERD (gastroesophageal reflux disease) History of migraine Gout Cellulitis Nonunion after arthrodesis Pain in left ankle Pain in left foot High anion gap metabolic acidosis Cyclical vomiting Hepatitis B core antibody positive Surface antibody positive, surface antigen negative, HBV DNA and hepatitis b envelope Ag negative = equals past infection. Check LFTs q 3-6 months on biologic therapy. Repeat hepatitis serology if LFTs positive. Risk of reactivation. Primary osteoarthritis of right knee Tendinopathy of right rotator cuff DDD (degenerative disc disease), lumbosacral Cyclical vomiting Alcohol withdrawal Ileus Memory loss CVA (cerebral vascular accident) incidental finding on MR done for hearing loss, located in left cerebellar region on MRI performed early 2021 Elevated troponin GI bleed nsaid induced gastritis Intermittent palpitations Frozen shoulder syndrome Cannabinoid hyperemesis syndrome History of colon polyps tubular adenomas Hypertension Anxiety Plaque psoriasis High risk medication use biologic agent for psoriasis Psoriatic arthritis Major depressive disorder, recurrent, in partial remission Post-traumatic stress disorder, chronic Cannabis dependence, uncomplicated Surgical History Hx of knee surgery bilateral Hx laparoscopic cholecystectomy History of colonoscopy (~09/2021) History of hysterectomy History of ankle surgery multiple to left ankle History of shoulder surgery History of pelvic surgery History of eye surgery Has metal around eye orbit History of toe surgery multiple to left foot Family History Mother Stroke Psychiatric illness bipolar/depression Cancer Hypertension Hyperlipidemia Heart disease Migraines Father Cancer lung Heart disease Brother Psychiatric illness depression Other CAD (coronary artery disease) Diabetes Lung disease Social History Smoking and tobacco/nicotine status: unknown if used tobacco/nicotine Alcohol intake: current Substance/Drug Use: current Substance/Drug use frequency: daily Data Anesthesia Cardiac Studies: Echocardiogram 10/06/24 Sestamibi Stress Test (Cardiology) 11/01/21 Cardiac Event Monitor 11/20/21
[2024-12-02] MEDS: sodium chloride 0.9% 1,000 ML 30 ML IV (09:08)
--- NOTE | 2024-12-02 09:16 | W.PM.OPSUD ---
Surgery/Procedure H&P Update DATE OF PROCEDURE: December 02, 2024 DATE H&P PERFORMED: 11/26/24 H&P UPDATE INFORMATION: I have reviewed H&P completed within last 30 days, I have examined patient prior to procedure and No changes to prior documentation PREOP DIAGNOSIS: Lumbar stenosis with neurogenic claudication PLANNED PROCEDURE: Operation Date: 12/02/24 10:20 Proposed Procedures p Lumbar Spine Decompression(Not Applicable) - Primo Brock DO
[2024-12-02] MEDS: VANCOMYCIN ADD-Vantage 1,000 MG in 0.9% NaCl ADD-Vantage 250 ML 250 MG IV (09:19)
[2024-12-02] MEDS: lidocaine-epi 1% 20 mL INJ 10 ML INJECTION (10:37)
--- NOTE | 2024-12-02 11:28 | PM.OP ---
Operative Report Date of procedure: December 02, 2024 Pre-op diagnosis: Lumbar stenosis neurogenic claudication Post-op diagnosis: same Procedure done: L4/5 laminectomy with partial facetectomy Surgeon: Primo Brock DO Estimated blood loss (mL): 5 Procedure: L4/5 laminectomy with partial facetectomy Patient is brought to the operative suite. After undergoing anesthesia they are placed in the prone position. All areas of impingement are well padded. Patient is then prepped and draped in the normal sterile fashion. A skin incision is made over the L4/5 level. This is confirmed under c-arm guidance. A series of dilators are passed and the tubular retractor is docked on the L4 lamina. A bovie is used to clear the soft tissue off the lamina and the L 4/5 facet joint. A high speed alli is then used to perform the laminectomy and take down the medial aspect of the L 4/5 facet joint. A kerrison rongeure was then used to take down the remaining lamina and smooth the edge of the laminectomy up to the point where the ligamentum flavum attaches. Attention was then brought to the medial aspect of the facet joint. The remaining medial aspect of the superior and inferior aspect of the facet joint were taken down with the kerrison from the pedicle of L4 to L 5. The facet joint had significant hypertrophy. Attention was then brought to the Ligamentum Flavum. The ligament was taken down from the lamina of L4 to L5 and out medially to the remaining facet joint. The ligament was thick. The dura was then exposed. The dura was in good repair. The L4 nerve was then traced with a curette out the L4/5 foramen and found to be adequately decompressed. The L5 nerve was traced with a curette around the L5 pedicle. The lateral recess was opened with a kerrison helping to further decompress the L5 nerve. Wound is then irrigated copiously with saline and surgiflo is used to stop any bleeding. The tubular retractor is removed and the wound is closed with vicryl and monocryl suture. Glue is then used to protect the wound. A sterile dressing is then placed. Patient was then placed in the supine position and transferred to the PACU in stable condition.
[2024-12-02] MEDS: HYDROcodone-acetaminophen 5-325 mg Tablet 2 TAB PO (11:42)
--- NOTE | 2024-12-02 12:10 | ANE.PACU2 ---
Inpatient post-anesthesia follow up: Airway intact: Yes Vital signs: Temperature 97.4 F Pulse Rate 75 Respiratory Rate 18 Blood Pressure 119/82 Pulse Oximetry 99 Oxygen Delivery Me thod Room Air Oxygen Flow Rate 8 Fraction of Inspir ed Oxygen Hydration adequate: Yes Nausea and vomiting: No Pain level: 1 Mental status: Baseline
--- NOTE | 2024-12-02 13:03 | XR_ITS ---
WS: [id number] XR lumbar spine 1V [id number] REASON FOR EXAM: OR PIC, DECOMPRESSION FINDINGS: Surgical device overlies the right L5-S1 XR/XR lumbar spine 1V [id number] IMPRESSION: Lumbar level localization and surgery as above.
== END 2024-12-02 12:09 | disposition home or self-care (01) ==
PROVIDERS: PCP Family Medicine; Visit Provider Orthopaedic Surgery
PROC: (CPT 63005; principal; 2024-12-02 10:10)
DX: M48.062 Spinal stenosis, lumbar region with neurogenic claudication (principal); E78.5 Hyperlipidemia, unspecified; N18.9 Chronic kidney disease, unspecified; I12.9 Hypertensive chronic kidney disease with stage 1 through stage 4 chronic kidney disease, or unspecified chronic kidney disease; F17.210 Nicotine dependence, cigarettes, uncomplicated; Z86.73 Personal history of transient ischemic attack (TIA), and cerebral infarction without residual deficits; Z79.899 Other long term (current) drug therapy; Z79.82 Long term (current) use of aspirin; Z88.5 Allergy status to narcotic agent; Z88.8 Allergy status to other drugs, medicaments and biological substances; Z91.09 Other allergy status, other than to drugs and biological substances; Z86.14 Personal history of Methicillin resistant Staphylococcus aureus infection
CPT/HCPCS: 63047; 72020; 76000; J1100; J2003; J2250; J2371; J2704; J3010; J3370; J3490; J7030; J7050; J9999

== ENCOUNTER → 2024-12-15 14:39 | Outpatient (BNVA) | payer MEDICARE, MEDICAID, SELFPAY | PROVIDERS: PCP Family Medicine; Visit Provider Orthopaedic Surgery | DX: Z98.890 Other specified postprocedural states (principal) | CPT/HCPCS: 99024 ==

== ENCOUNTER → 2024-12-30 12:58 | Outpatient (BNVA) | payer MEDICARE, MEDICAID, SELFPAY | PROVIDERS: PCP Family Medicine; Visit Provider Podiatrist Foot & Ankle Surgery | DX: M20.41 Other hammer toe(s) (acquired), right foot (principal); M20.42 Other hammer toe(s) (acquired), left foot; L60.3 Nail dystrophy; G62.9 Polyneuropathy, unspecified | CPT/HCPCS: 99214 ==

== ENCOUNTER 2025-01-10 23:25 | Observation (INO) | payer MEDICARE, MEDICAID, SELFPAY ==
[2025-01-10 23:33] VITALS: BP 108/74; PULSE 82; RESP 22; TEMP 36.9; O2SAT 98
[2025-01-11] VITALS (8 sets, daily range): BP systolic 133–185; BP diastolic 87–123; PULSE 72–112; RESP 14–20; TEMP 36.5; O2SAT 92–100
[2025-01-11 01:55] LABS: Basophils % 0.2 %; Eosinophils % 0.2 %; Hematocrit 41.6 % (36-47); Lymphocytes # 1.2 10^3/uL (0.8-4.8); Lymphocytes % 7.1 %; Mean Corpuscular HGB Conc 35.8 g/dL (30-55); Mean Corpuscular Hemoglobin 30.3 pg (27-33); Mean Corpuscular Volume 84.6 fl (85-98); Mean Platelet Volume 9.7 fL (7.4-10.4); Monocytes # 1.3 10^3/uL (0.2-0.9); Monocytes % 8.1 %; Neutrophils % 83.8 %; Nucleated Red Blood Cells % 0 %; Platelet Count 453 10^3/cmm (157-399); Red Blood Count 4.92 10^6/uL (3.85-5.65); Red Cell Distribution Width 14.3 % (12.1-15.1); White Blood Count 16.25 10^3/uL (3.29-11.43)
[2025-01-11 02:16] LABS: Alanine Aminotransferase 29 U/L (0-33); Albumin Level 4.7 g/dL (3.5-5.2); Alkaline Phosphatase 169 U/L (35-105); Anion Gap 29.2 (5-19); Aspartate Amino Transferase 79 U/L (0-32); Blood Urea Nitrogen 27 mg/dL (6-20); Calcium 9.9 mg/dL (8.5-10.5); Carbon Dioxide 27 mmol/L (22-29); Chloride 77 mmol/L (98-107); Creatinine Clr Calc Pharmacy 21.0573; Globulin 4.3 g/dL (1.3-4.6); Glomerular Filtration Rate 16.1 mL/min (90-130); Glucose 136 mg/dL (65-115); Osmolality Calculated 277 mOsm/kg (285-295); Potassium 3.2 mmol/L (3.5-5.1); Sodium 130 mmol/L (136-145)
--- NOTE | 2025-01-11 03:18 | CTR_ITS ---
PROCEDURE INFORMATION: Exam: CT Abdomen And Pelvis Without Contrast Exam date and time: 01/11/2025 3:26 AM Age: 54 years old Clinical indication: Nausea and vomiting; Abdominal pain; Generalized; Prior surgery; Surgery date: 6+ months; Surgery type: Gb. Hysterectomy. Pelvic fixation/screws; Diffuse abd pain with n/v TECHNIQUE: Imaging protocol: Computed tomography of the abdomen and pelvis without contrast. Radiation optimization: All CT scans at this facility use at least one of these dose optimization techniques: automated exposure control; mA and/or kV adjustment per patient size (includes targeted exams where dose is matched to clinical indication); or iterative reconstruction. COMPARISON: CT abdomen pelvis wo con [id number] 10/05/2024 4:17 PM RADIATION DOSE METRICS: Total DLP (mGy-cm): 393.78 FINDINGS: Liver: Normal. No mass. Gallbladder and biliary ducts: Cholecystectomy. Pancreas: Normal. No ductal dilation. Spleen: Normal. No splenomegaly. Adrenal glands: Fullness left adrenal. As before, this is compatible with hyperplasia. Kidneys and ureters: Normal. No hydronephrosis. Stomach and bowel: Unremarkable. No obstruction. No mucosal thickening. Appendix: No evidence of appendicitis. Intraperitoneal space: Unremarkable. No free air. No significant fluid collection. Vasculature: Unremarkable. No abdominal aortic aneurysm. Lymph nodes: Unremarkable. No enlarged lymph nodes. Urinary bladder: Unremarkable as visualized. Reproductive: Unremarkable as visualized. Bones/joints: Unremarkable. No acute fracture. Soft tissues: Unchanged small fat containing midline abdominal hernias. Other findings: Postsurgical change pelvis. CT/CT abdomen pelvis con [id number] IMPRESSION: No acute findings.
[2025-01-11] MEDS: ondansetron 2 mg/ML SDV 2 mL 4 MG IVP ×2 (03:46→08:55)
[2025-01-11] MEDS: ketorolac 30 mg/mL INJ IVP (03:48)
[2025-01-11] MEDS: haloperidol inj 5 mg/mL INJ 1 mL IVP (03:49)
[2025-01-11] MEDS: sodium chlor 0.9% + KCl 40 mEq 40 MEQ/1,000 ML BAG 250 MEQ IV (04:07)
--- NOTE | 2025-01-11 04:11 | ED_ITS ---
HPI - Abdominal Pain 2 General: Chief Complaint: Abdominal Pain Stated Complaint: N/V Time Seen by Provider: 01/11/25 03:15 History of Present Illness: 54-year-old female [facility] She presents with abdominal pain vomiting and diarrhea. She says she has had this for 2 days. She has vomited up liquids. She says she has been running fever. She says a burrito that was bad started her symptoms. She has been seen multiple times in the past for intractable vomiting and diarrhea with acute kidney injury associated with that. Related Data Home Medications ?Medication ?Instructions ?Recorded ?Confirmed pantoprazole 40 mg tablet,delayed 40 mg PO BID 2 01/11/25 release aspirin 81 mg tablet,delayed 81 mg PO QPM 04/09/2208/26 release amlodipine 10 mg tablet 10 mg PO QAM 05/14/23 metoprolol tartrate 37.5 mg tablet 37.5 mg PO BID 08/0201/11/25 atorvastatin 40 mg tablet 40 mg PO QPM 10/05/24 ustekinumab 45 mg/0.5 mL 45 mg SUBCUT DIRECTED 09/2601/11/25 subcutaneous syringe (Stelara) Previous Rx's ?Medication ?Instructions ?Recorded duloxetine 60 mg capsule,delayed 60 mg PO BID #60 caps 02/15/20 release (Cymbalta) pregabalin 25 mg capsule (Lyrica) 25 mg PO DAILY #14 c aps 12/30/24 Allergies Allergy/AdvReac Type Severity Reaction Status Date / Time clindamycin Allergy Severe Unconscious Verified 12/30/24 13:02 adhesive tape Allergy Intermediate rash, red Verified 12/30/24 13:02 codeine Allergy Unknown ALGY-Anaphy Verified 12/30/24 13:02 laxis paroxetine (From Paxil) Allergy Unconscious Verified 12/30/24 13:02 [facility] ED 2 [facility]: Medical History (Updated 01/11/25 @ 05:22 by Remy Salinas MD) Hypokalemia MRSA (methicillin resistant staph aureus) culture positive Dehydration Hyponatremia Primary osteoarthritis of left knee UTI (urinary tract infection) Metabolic acidosis Acute on chronic renal insufficiency Cyclical vomiting, intractable Sepsis LEVY (acute kidney injury) Cannabinoid hyperemesis syndrome Marijuana abuse Acute kidney injury Hypochloremic alkalosis Cyclical vomiting, intractable Osteomyelitis Hardware complicating wound infection Septic arthritis Postoperative anemia History of cardiovascular stress test (~10/2021) History of Holter monitoring (~12/2021) Baseline sinus rhythm, 50-129 bpm with average 79 bpm, one 4 beat run asymptomatic vtach Dyslipidemia Chronic kidney disease Cellulitis of toe of left foot GERD (gastroesophageal reflux disease) History of migraine Gout Cellulitis Nonunion after arthrodesis Pain in left ankle Pain in left foot High anion gap metabolic acidosis Cyclical vomiting Hepatitis B core antibody positive Surface antibody positive, surface antigen negative, HBV DNA and hepatitis b envelope Ag negative = equals past infection. Check LFTs q 3-6 months on biologic therapy. Repeat hepatitis serology if LFTs positive. Risk of reactivation. Primary osteoarthritis of right knee Tendinopathy of right rotator cuff DDD (degenerative disc disease), lumbosacral Cyclical vomiting Alcohol withdrawal Ileus Memory loss CVA (cerebral vascular accident) incidental finding on MR done for hearing loss, located in left cerebellar region on MRI performed early 2021 Elevated troponin GI bleed nsaid induced gastritis Intermittent palpitations Frozen shoulder syndrome Cannabinoid hyperemesis syndrome History of colon polyps tubular adenomas Hypertension Anxiety Plaque psoriasis High risk medication use biologic agent for psoriasis Psoriatic arthritis Major depressive disorder, recurrent, in partial remission Post-traumatic stress disorder, chronic Cannabis dependence, uncomplicated Surgical History Hx of knee surgery bilateral Hx laparoscopic cholecystectomy History of colonoscopy (~09/2021) History of hysterectomy History of ankle surgery multiple to left ankle History of shoulder surgery History of pelvic surgery History of eye surgery Has metal around eye orbit History of toe surgery multiple to left foot Family History Mother Stroke Psychiatric illness bipolar/depression Cancer Hypertension Hyperlipidemia Heart disease Migraines Father Cancer lung Heart disease Brother Psychiatric illness depression Other CAD (coronary artery disease) Diabetes Lung disease Social History Smoking and tobacco/nicotine status: current every day tobacco/nicotine user cigarettes [ Other cigarette details: Quarter to half pack a day] Alcohol intake: current Substance/Drug Use: current Substance/Drug use frequency: daily Physical Exam 2 Const: GENERAL APPEARANCE: cooperative, in distress (in pain), anxious and ill appearing (Mildly); not frail appearing HENMT: COMMON NORMALS: normocephalic, atraumatic and Normal external nose present HEAD & SCALP: normocephalic and atraumatic FACE & SINUS: normal facial exam and face symmetric NOSE: Normal external nose present Eye: COMMON NORMALS: Equal, round and reactive pupils present and EOMs intact bilaterally PUPIL: Yes Equal, round and reactive pupils present Neck/C-Spine: GENERAL: Yes trachea midline Chest: CHEST: Yes Symmetrical chest wall rise Resp: COMMON NORMALS: normal respiratory effort, No retractions, No use of accessory muscles and clear to auscultation bilaterally AUSCULTATION: clear to auscultation bilaterally Cardio: COMMON NORMALS: regular rate and regular rhythm RATE: regular rate RHYTHM: regular rhythm GI: COMMON NORMALS: Normal to inspection, nondistended, normoactive bowel sounds present PALPATION: Yes Tenderness to palpation present (GI) (Diffusely) Extremity: COMMON NORMALS: no pedal edema Neuro: JUANY COMA SCALE: document GCS findings Morton coma scale eye opening: Spontaneous Juany coma scale verbal response: Orientated Morton coma scale motor response: Obey commands Juany coma scale total score: 15 S ENSORY EXAM: Yes extremities (intact) Psych: COMMON NORMALS: speech normal SPEECH: Yes normal speech Skin: COMMON NORMALS: no rashes or lesions noted GENERAL SKIN EXAM: no rashes or lesions noted Course 2 Vital Signs: Vital signs: Vital Signs Temperature 99.1 F 01/12/25 11:58 Pulse Rate 170 H 01/12/25 11:58 Respiratory Rate 15 01/12/25 11:58 Blood Pressure 156/86 01/12/25 11:58 Pulse Oximetry 93 01/12/25 11:58 Oxygen Delivery Me thod Room Air 01/12/25 11:35 MDM - Abdominal Pain Medical Decision Making Patient is slightly tachycardic, other vitals are normal. White blood cell count is 16 with 84% neutrophils. Potassium is 3.2. Creatinine is up to 3.0 with a BUN of 27. She is given potassium with IV fluids. CT is pending. Haldol, Toradol, Zofran for pain and nausea. CT scan is negative for acute findings. Nevertheless, she will require admission for acute kidney injury with dehydration, intractable vomiting, and mild Rhabdomyolysis. Hospitals will see the patient. Lab Data 01/12/25 06:01 01/12/25 06:01 Labs/Radiology: Radiology Impressions Abdomen/Pelvis CT 01/11/25 03:18 IMPRESSION: No acute findings. Laboratory Results WBC 16.25 10^3/uL (3.29-11.43) H 01/11/25 01:30 RBC 4.92 10^6/uL (3.85-5.65) 01/11/25 01:30 Hgb 14.90 g/dL (11.27-16.99) 01/11/25 01:30 Hct 41.6 % (36-47) 01/11/25 01:30 MCV 84.6 fl (85-98) L 01/11/25 01:30 MCH 30.3 pg (27-33) 01/11/25 01:30 MCHC 35.8 g/dL (30-55) 01/11/25 01:30 RDW 14.3 % (12.1-15.1) 01/11/25 01:30 Plt Count 453 10^3/cmm (157-399) H 01/11/25 01:30 MPV 9.7 fL (7.4-10.4) 01/11/25 01:30 Neut % (Auto) 83.8 % 01/11/25 01:30 Lymph % (Auto) 7.1 % 01/11/25 01:30 Frio % (Auto) 8.1 % 01/11/25 01:30 Eos % (Auto) 0.2 % 01/11/25 01:30 Baso % (Auto) 0.2 % 01/11/25 01:30 Neut # (Auto) 13.60 10^3/uL (1.8-7.7) H 01/11/25 01:30 Lymph # (Auto) 1.2 10^3/uL (0.8-4.8) 01/11/25 01:30 Frio # (Auto) 1.3 10^3/uL (0.2-0.9) H 01/11/25 01:30 Eos # (Auto) 0.0 10^3/uL (0.0-0.8) 01/11/25 01:30 Baso # (Auto) 0.0 10^3/uL (0.0-0.1) 01/11/25 01:30 Nucleated RBC % (auto) 0 % 01/11/25 01:30 Nucleated RBCs # 0.0 /100WBC 01/11/25 01:30 Sodium 130 mmol/L (136-145) L 01/11/25 01:30 Potassium 3.2 mmol/L (3.5-5.1) L 01/11/25 01:30 Chloride 77 mmol/L (98-107) L 01/11/25 01:30 Carbon Dioxide 27 mmol/L (22-29) 01/11/25 01:30 Anion Gap 29.2 (5-19) H 01/11/25 01:30 BUN 27 mg/dL (6-20) H 01/11/25 01:30 Creatinine 3.0 mg/dL (0.5-0.9) H 01/11/25 01:30 GFR Calculation 16.1 mL/min (90-130) L 01/11/25 01:30 Glucose 136 mg/dL (65-115) H 01/11/25 01:30 Calculated Osmolality 277 mOsm/kg (285-295) L 01/11/25 01:30 Calcium 9.9 mg/dL (8.5-10.5) 01/11/25 01:30 Total Bilirubin 1.0 mg/dL (0.15-1.2) 01/11/25 01:30 AST 79 U/L (0-32) H 01/11/25 01:30 ALT 29 U/L (0-33) 01/11/25 01:30 Alkaline Phosphatase 169 U/L (35-105) H 01/11/25 01:30 Creatine Kinase 1821 U/L (26-192) H* 01/11/25 01:30 C-Reactive Protein 22.4 mg/L (0.0-4.9) H 01/11/25 01:30 Total Protein 9.0 g/dL (6.6-8.7) H 01/11/25 01:30 Albumin 4.7 g/dL (3.5-5.2) 01/11/25 01:30 Globulin 4.3 g/dL (1.3-4.6) 01/11/25 01:30 Procalcitonin 0.48 ng/mL (0-0.5) 01/11/25 01:30 All radiology interpretation(s) finalized by discharge Discharge Plan Discharge Patient Disposition: Placed in Observation Admit Provider: Remy Salinas Clinical Impression: LEVY (acute kidney injury) Coding Level of Care Code ED Consultant Education for 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
[2025-01-11 04:46] LABS: Creatine Phosphokinase 1821 U/L (26-192)
--- NOTE | 2025-01-11 05:00 | PM.HP ---
Providers/Chief Complaint Primary Care Provider: uBcky Rogers MD Chief Complaint: N/V History of Present Illness Rachelle Mireles is a 54 year old female with a past medical history significant for multiple comorbidities including neuropathy, MRSA bacteremia, rhabdomyolysis, recurrent acute kidney injury, cyclic vomiting, and other pathologies who presents emergency department with intractable nausea and vomiting. She reports onset yesterday. She states that she cannot hold anything down. She attributes her symptoms to eating a bad burrito that her friend made. Reports eating worsens symptoms. Denies other alleviating or aggravating factors. Endorses associated subjective fevers and chills. Denies chest pain, palpitations, or new neurological complaints. In the emergency department, patient was found to have acute kidney injury. CT of abdomen pelvis was negative for acute findings. Review of Systems Narrative: A complete review of systems was obtained and is negative except as stated in HPI. Medications/Allergies Home Medications ?Medication ?Instructions ?Recorded ?Confirmed ?Last Taken ?Type duloxetine 60 mg capsule,delayed 60 mg PO BID #60 caps 02/15/20 12/30/24 12/01/24 Rx release (Cymbalta) pantoprazole 40 mg tablet,delayed 40 mg PO BID 09/04/21 12/30/24 12/01/24 History release aspirin 81 mg tablet,delayed 81 mg PO QPM 04/09/22 12/30/24 11/30/24 History release Held on 12/02/24. Instructions: Resume on 12/04/24. amlodipine 10 mg tablet 10 mg PO QAM 05/14/23 12/30/24 12/01/24 History metoprolol tartrate 37.5 mg tablet 37.5 mg PO BID 08/20/23 12/30/24 12/02/24 07:00 History atorvastatin 40 mg tablet 40 mg PO QPM 10/05/24 12/30/24 12/01/24 History clobetasol 0.05 % scalp solution See Rx Instructions .Route 10/05/24 12/30/24 12/01/24 History .COMPLEX PRN psoriasis clobetasol 0.05 % topical ointment See Rx Instructions .Route 10/05/24 12/30/24 12/01/24 History .COMPLEX PRN Rash [id number] C-Mn 500 1 cap PO BID 12/01/24 12/30/2412/01/25 History mg-400 mg capsule ustekinumab 45 mg/0.5 mL 45 mg SUBCUT DIRECTED 12/01/24 12/30/24 11/13/24 History subcutaneous syringe (Stelara) hydrocodone 5 mg-acetaminophen 325 1 tab PO Q8H PRN pain 7 days #21 12/15/24 12/30/24 Unknown Rx mg tablet tabs pregabalin 25 mg capsule (Lyrica) 25 mg PO DAILY #14 caps 12/30/24 12/30/24 Unknown Rx Allergies Allergy/AdvReac Type Severity Reaction Status Date / Time clindamycin Allergy Severe Unconscious Verified 12/30/24 13:02 adhesive tape Allergy Intermediate rash, red Verified 12/30/24 13:02 codeine Allergy Unknown ALGY-Anaphy Verified 12/30/24 13:02 laxis paroxetine (From Paxil) Allergy Unconscious Verified 12/30/24 13:02 PFSH Acute PFSH: Medical History (Updated 01/11/25 @ 05:22 by Remy Salinas MD) Hypokalemia MRSA (methicillin resistant staph aureus) culture positive Dehydration Hyponatremia Primary osteoarthritis of left knee UTI (urinary tract infection) Metabolic acidosis Acute on chronic renal insufficiency Cyclical vomiting, intractable Sepsis LEVY (acute kidney injury) Cannabinoid hyperemesis syndrome Marijuana abuse Acute kidney injury Hypochloremic alkalosis Cyclical vomiting, intractable Osteomyelitis Hardware complicating wound infection Septic arthritis Postoperative anemia History of cardiovascular stress test (~10/2021) History of Holter monitoring (~12/2021) Baseline sinus rhythm, 50-129 bpm with average 79 bpm, one 4 beat run asymptomatic vtach Dyslipidemia Chronic kidney disease Cellulitis of toe of left foot GERD (gastroesophageal reflux disease) History of migraine Gout Cellulitis Nonunion after arthrodesis Pain in left ankle Pain in left foot High anion gap metabolic acidosis Cyclical vomiting Hepatitis B core antibody positive Surface antibody positive, surface antigen negative, HBV DNA and hepatitis b envelope Ag negative = equals past infection. Check LFTs q 3-6 months on biologic therapy. Repeat hepatitis serology if LFTs positive. Risk of reactivation. Primary osteoarthritis of right knee Tendinopathy of right rotator cuff DDD (degenerative disc disease), lumbosacral Cyclical vomiting Alcohol withdrawal Ileus Memory loss CVA (cerebral vascular accident) incidental finding on MR done for hearing loss, located in left cerebellar region on MRI performed early 2021 Elevated troponin GI bleed nsaid induced gastritis Intermittent palpitations Frozen shoulder syndrome Cannabinoid hyperemesis syndrome History of colon polyps tubular adenomas Hypertension Anxiety Plaque psoriasis High risk medication use biologic agent for psoriasis Psoriatic arthritis Major depressive disorder, recurrent, in partial remission Post-traumatic stress disorder, chronic Cannabis dependence, uncomplicated Surgical History Hx of knee surgery bilateral Hx laparoscopic cholecystectomy History of colonoscopy (~09/2021) History of hysterectomy History of ankle surgery multiple to left ankle History of shoulder surgery History of pelvic surgery History of eye surgery Has metal around eye orbit History of toe surgery multiple to left foot Family History Mother Stroke Psychiatric illness bipolar/depression Cancer Hypertension Hyperlipidemia Heart disease Migraines Father Cancer lung Heart disease Brother Psychiatric illness depression Other CAD (coronary artery disease) Diabetes Lung disease Social History Smoking and tobacco/nicotine status: current every day tobacco/nicotine user cigarettes [ Other cigarette details: Quarter to half pack a day] Alcohol intake: current Substance/Drug Use: current Substance/Drug use frequency: daily Vitals/I&O/Wt Last Vital Signs Temp 98.4 F 01/10/25 23:33 Pulse 112 H 01/11/25 02:59 Resp 20 H 01/11/25 02:59 BP 133/87 01/11/25 02:59 Pulse Ox 97 01/11/25 02:59 O2 Del Method Room Air 01/11/25 02:59 Weight last 48 hrs Weight 70.307 kg Physical Exam Narrative: General: Patient is awake. Appears ill. Head: Normocephalic. Atraumatic. EOM intact. Dry mucous membranes. Neck: No JVD. Cardiovascular: RRR. No gallops. No murmurs. Lungs: Clear to auscultation, no use of accessory muscles, no crackles or wheezes. Skin: No jaundice. No rashes. Abdomen: Normal bowel sounds, abdomen soft and nontender. Genito Urinary: Genital exam not performed since complaints not related. Rectal: Rectal exam not performed since no symptoms indicated blood loss. Extremities: No cyanosis or clubbing. Musculoskeletal:No swollen or erythematous joints. Neurological: Moves all 4 extremities. No myoclonus. Data 01/11/25 01:30 01/11/25 01:30 A&P Assessment and plan (1) Leukocytosis: (2) Thrombocytosis: (3) Hyponatremia: (4) Hypokalemia: (5) Dehydration: (6) Acute kidney injury: (7) Elevated CK: Plan Intractable nausea and vomiting Acute kidney injury Rhabdomyolysis Transaminitis likely secondary to rhabdomyolysis Hypovolemic hyponatremia - CT abdomen/pelvis negative for acute pathology - IV antiemetics as needed - Start IV fluids - IV PPI - Trend labs - Follow-up urinary drug screen Leukocytosis - Suspect stress-induced - Check inflammatory markers Hypokalemia - Replacing with IV potassium containing fluids - Telemetry monitoring - Trend labs Hypertension - Continue metoprolol Hyperlipidemia - Continue statin Neuropathy - Hold pregabalin due to LEVY DVT prophylaxis: Heparin CODE STATUS: Full code PDMP PDMP Reviewed: Not Reviewed Attestations Medical Necessity Statement*: Patient presents with intractable nausea and vomiting, found to have acute kidney injury multiple other metabolic derangements with expected hospitalization not to cross 2 midnights for IV antiemetics, IV fluids, serial labs and supportive care. Coding Level of Care Code Acute Code for Chg Fwd Diagnoses Leukocytosis D72.829 Thrombocytosis D75.839 Hyponatremia E87.1 Hypokalemia E87.6 Dehydration E86.0 Acute kidney injury N17.9 Elevated CK R74.8
[2025-01-11 05:45] LABS: C Reactive Protein 22.4 mg/L (0.0-4.9)
[2025-01-11 05:52] LABS: Procalcitonin 0.48 ng/mL (0-0.5)
[2025-01-11] MEDS: fentaNYL 50 mcg/mL INJ 2mL IVP (06:23)
[2025-01-11] MEDS: sodium chlor 0.9% + KCl 40 mEq 40 MEQ/1,000 ML BAG 100 MEQ IV ×2 (10:22→20:39)
[2025-01-11] MEDS: pantoprazole 40 mg SDV IVP ×2 (10:22→20:39)
[2025-01-11] MEDS: duloxetine 60 mg Capsule PO ×2 (10:22→18:51)
[2025-01-11] MEDS: metoprolol tartrate 25 mg Tablet 37.5 MG PO ×2 (10:22→18:51)
[2025-01-11 11:14] LABS: Bilirubin Urine Negative (Negative); Blood Urine 3+ (Negative); Glucose Urine UA Negative (Normal); Ketones Urine 1+ (Negative); Leukocyte Esterase Urine Trace (Negative); Nitrate Urine Negative (Negative); Protein Urine 3+ (Negative); Specific Gravity, Urine 1.014 (1.005-1.030); Urine Appearance Cloudy (CLEAR); Urine Color Yellow (Yellow); pH Urine 7.5 (5-7)
[2025-01-11 11:16] LABS: Add Urine Microscopic? YES; Bacteria Urine None Seen /hpf; Hyaline Casts Urine 37.23 /lpf
[2025-01-11 11:21] LABS: Amphetamines Screen Urine Negative (Negative); Barbiturates Screen Urine Negative (Negative); Benzodiazepines Screen Urine Negative (Negative); Cocaine Screen Urine Negative (Negative); Opiate Screen Urine Negative (Negative); PCP Screen Urine Negative (Negative); THC Screen Urine Positive (Negative)
[2025-01-11 11:27] LABS: UA Slide Review UA Slide Review Perf
--- NOTE | 2025-01-11 16:11 | DCPLANNER ---
spoke to [facility] and [facility], they do not have beds available. [facility] states a possibly 2+ day hold, [facility] said they may have late PM openings. [facility] said they had beds and would have Dr. Carl call to speak with Dr. Corbett, after talking [facility] declined all 3 ER holds unless they had condition changes and needed a higher level of care
--- NOTE | 2025-01-11 18:01 | P.PN_ITS ---
Subjective 2 Subjective: Still persistent nausea, dry heaving, unable to tolerate any oral intake. Vitals/I&O/Wt Last Vital Signs Temp 98.4 F 01/10/25 23:33 Pulse 72 01/11/25 16:23 Resp 18 01/11/25 06:23 BP 171/112 01/11/25 16:23 Pulse Ox 93 01/11/25 16:23 O2 Del Method Room Air 01/11/25 16:23 01/11/25 01/11/25 01/11/25 06:59 14:59 22:59 Intake Total 1000 / 1000 Balance 1000 / 1000 Weight last 48 hrs Weight 70.307 kg Physical Exam 2 Const: COMMON NORMALS: patient oriented x3 and alert GENERAL APPEARANCE: c ooperative ORIENTATION/CONSCIOUSNESS: Yes awake HENMT: COMMON NORMALS: oropharynx normal Neck/C-Spine: COMMON NORMALS: no JVD Resp: COMMON NORMALS: normal respiratory effort and clear to auscultation bilaterally AUSCULTATION: clear to auscultation bilaterally Cardio: COMMON NORMALS: no JVD, regular rhythm, S1 normal heart sound present, S2 normal heart sound present and No murmurs present (Cardio) RHYTHM: regular rhythm HEART SOUNDS: S1 normal heart sound present and S2 normal heart sound present GI: COMMON NORMALS: Normal to inspection, nondistended, normoactive bowel sounds present, Soft to palpation and non-tender PALPATION: Yes Soft to palpation Extremity: COMMON NORMALS: no joint enlargement and no pedal edema Neuro: COMMON NORMALS: patient oriented x3 and moves all extremities S ENSORIUM/ORIENTATION: Yes alert Skin: COMMON NORMALS: no rashes or lesions noted GENERAL SKIN EXAM: no rashes or lesions noted Data 01/11/25 01:30 01/11/25 01:30 A&P Assessment and plan (1) Leukocytosis: (2) Thrombocytosis: (3) Hyponatremia: (4) Hypokalemia: (5) Dehydration: (6) Acute kidney injury: (7) Elevated CK: Plan Intractable nausea and vomiting: Add Reglan, monitor for risk of extraparametal effects. Continue Zofran as needed. Continue IV fluid hydration as still has not been tolerating any p.o. intake. Monitor for risk of fluid overload. Having concomitant diarrhea, requested C. difficile with concomitant leukocytosis, LEVY, stool studies for Salmonella, Shigella, Campylobacter. Acute kidney injury: Receiving fluid challenge, repeat chemistry requested. Repeat CK. Rhabdomyolysis Transaminitis likely secondary to rhabdomyolysis Hypovolemic hyponatremia - CT abdomen/pelvis negative for acute pathology -Continue IV PPI - Trend labs - Reviewed urinary drug screen Leukocytosis: Reviewed CBC. Repeat. CRP reviewed, elevated at 22.4. - Suspect stress-induced Hypokalemia: Repeat chemistry requested. Check magnesium. - Replacing with IV potassium containing fluids - Telemetry monitoring - Trend labs Hypertension: - Continue metoprolol - And hydralazine IV as needed Hyperlipidemia - Continue statin Neuropathy - Hold pregabalin due to LEVY DVT prophylaxis: Heparin CODE STATUS: Full code PDMP PDMP Reviewed: Not Reviewed Attestations 2 Medical Necessity Statement*: Continue hospitalization for intractable nausea and vomiting complicated by LEVY, rhabdomyolysis. and High MDM includes described risk of complication, morbidity or mortality of management as documented Diagnoses Leukocytosis D72.829 Thrombocytosis D75.839 Hyponatremia E87.1 Hypokalemia E87.6 Dehydration E86.0 Acute kidney injury N17.9 Elevated CK R74.8
[2025-01-11] MEDS: atorvastatin 40 mg Tablet PO (18:51)
[2025-01-11] MEDS: aspirin 81 mg EC Tablet PO (18:51)
[2025-01-12 00:01] VITALS: BP 118/74; PULSE 78; RESP 16; TEMP 36.5; O2SAT 92
[2025-01-12 03:27] VITALS: BP 116/72; PULSE 82; RESP 17; TEMP 36.6; O2SAT 92
[2025-01-12] MEDS: sodium chlor 0.9% + KCl 40 mEq 40 MEQ/1,000 ML BAG 100 MEQ IV (06:05)
[2025-01-12 06:35] LABS: Basophils % 0.3 %; Eosinophils # 0.1 10^3/uL (0.0-0.8); Eosinophils % 0.7 %; Hematocrit 37.6 % (36-47); Lymphocytes # 1.3 10^3/uL (0.8-4.8); Lymphocytes % 11.4 %; Mean Corpuscular Hemoglobin 30.9 pg (27-33); Mean Corpuscular Volume 90.8 fl (85-98); Mean Platelet Volume 9.5 fL (7.4-10.4); Monocytes # 1.3 10^3/uL (0.2-0.9); Monocytes % 10.9 %; Neutrophils # 8.73 10^3/uL (1.8-7.7); Neutrophils % 76.3 %; Nucleated Red Blood Cells % 0 %; Platelet Count 368 10^3/cmm (157-399); Red Blood Count 4.14 10^6/uL (3.85-5.65); Red Cell Distribution Width 14.6 % (12.1-15.1); White Blood Count 11.44 10^3/uL (3.29-11.43)
[2025-01-12 06:52] LABS: Alanine Aminotransferase 33 U/L (0-33); Albumin Level 3.9 g/dL (3.5-5.2); Alkaline Phosphatase 117 U/L (35-105); Anion Gap 16.2 (5-19); Aspartate Amino Transferase 64 U/L (0-32); Blood Urea Nitrogen 20 mg/dL (6-20); Calcium 8.7 mg/dL (8.5-10.5); Carbon Dioxide 25 mmol/L (22-29); Chloride 92 mmol/L (98-107); Creatinine Clr Calc Pharmacy 39.1451; Glomerular Filtration Rate 33.3 mL/min (90-130); Glucose 100 mg/dL (65-115); Osmolality Calculated 273 mOsm/kg (285-295); Potassium 3.2 mmol/L (3.5-5.1); Sodium 130 mmol/L (136-145); Total Bilirubin 0.5 mg/dL (0.15-1.2); Total Protein 6.9 g/dL (6.6-8.7)
[2025-01-12 07:09] LABS: Creatine Phosphokinase 1267 U/L (26-192)
[2025-01-12 07:34] VITALS: BP 146/100; PULSE 83; RESP 16; TEMP 36.7; O2SAT 96
[2025-01-12] MEDS: pantoprazole 40 mg SDV IVP (08:09)
[2025-01-12] MEDS: metoprolol tartrate 25 mg Tablet 37.5 MG PO (08:09)
[2025-01-12] MEDS: duloxetine 60 mg Capsule PO (08:10)
[2025-01-12 09:48] LABS: C.Diff PCR (Lab) NEGATIVE (Negative)
--- NOTE | 2025-01-12 10:55 | P.DS_ITS ---
Discharge Providers Date of Admission: 01/11/25 08:10 Date of Discharge: January 12, 2025 Attending Provider at Admission: Remy Salinas MD Attending Provider at Discharge: Carlos Corbett Primary Care Provider: Bucky Rogers MD Diagnoses at Discharge Discharge Diagnosis (1) Leukocytosis: Status: Acute (2) Thrombocytosis: Status: Acute (3) Hyponatremia: Status: Acute (4) Hypokalemia: Status: Acute (5) Dehydration: Status: Acute (6) Acute kidney injury: Status: Acute (7) Elevated CK: Status: Acute Reason for Visit Reason for Visit: N/V Brief History: Rachelle Mireles is a 54 year old female with a past medical history significant for multiple comorbidities including neuropathy, MRSA bacteremia, rhabdomyolysis, recurrent acute kidney injury, cyclic vomiting, and other pathologies who presents emergency department with intractable nausea and vomiting. She reports onset yesterday. She states that she cannot hold anything down. She attributes her symptoms to eating a bad burrito that her friend made. Reports eating worsens symptoms. Denies other alleviating or aggravating factors. Endorses associated subjective fevers and chills. Denies chest pain, palpitations, or new neurological complaints. In the emergency department, patient was found to have acute kidney injury. CT of abdomen pelvis was negative for acute findings. Hospital Course Hospital Course She was hospitalized and placed on bowel rest, received IV hydration, antiemetics, IV PPI, potassium replacement. Stool studies were requested but her diarrhea had resolved. Rhabdomyolysis showing improvement. On reassessment LEVY improving with creatinine down from 3 to 1.6. She is feeling significantly better today. Tolerating trial of clear liquid diet this morning. Feels ready to return home. Please reassess for recovery from gastroenteritis. Reassess renal function and potassium level. Physical Exam Narrative: Accompanied by a visitor. Const: COMMON NORMALS: patient oriented x3 and alert GENERAL APPEARANCE: cooperative ORIENTATION/CONSCIOUSNESS: Yes awake HENMT: COMMON NORMALS: oropharynx normal Neck/C-Spine: COMMON NORMALS: no JVD Resp: COMMON NORMALS: normal respiratory effort and clear to auscultation bilaterally AUSCULTATION: clear to auscultation bilaterally Cardio: COMMON NORMALS: no JVD, regular rhythm, S1 normal heart sound present, S2 normal heart sound present and No murmurs present (Cardio) RHYTHM: regular rhythm HEART SOUNDS: S1 normal heart sound present and S2 normal heart sound present GI: COMMON NORMALS: Normal to inspection, nondistended, normoactive bowel sounds present, Soft to palpation and non-tender PALPATION: Yes Soft to palpation Extremity: COMMON NORMALS: no joint enlargement and no pedal edema Neuro: COMMON NORMALS: patient oriented x3 and moves all extremities SENSORIUM/ORIENTATION: Yes alert Skin: COMMON NORMALS: no rashes or lesions noted GENERAL SKIN EXAM: no rashes or lesions noted Discharge Data Studies Completed and Pending Completed Studies During Hospitalization Category Date Time Status CT abdomen pelvis wo con 08402 Urgent Cat Scan 01/11/25 03:18 Completed Pending at discharge Category Date Time Status Stool Culture - Enteric [Salmonella / Shigella / Campy] Lab 01/11/25 07:26 Received Routine Radiology Impressions Abdomen/Pelvis CT 01/11/25 03:18 IMPRESSION: No acute findings. Laboratory Results WBC 11.44 10^3/uL (3.29-11.43) H 01/12/25 06:01 RBC 4.14 10^6/uL (3.85-5.65) 01/12/25 06:01 Hgb 12.80 g/dL (11.27-16.99) 01/12/25 06:01 Hct 37.6 % (36-47) 01/12/25 06:01 MCV 90.8 fl (85-98) 01/12/25 06:01 MCH 30.9 pg (27-33) 01/12/25 06:01 MCHC 34.0 g/dL (30-55) D 01/12/25 06:01 RDW 14.6 % (12.1-15.1) 01/12/25 06:01 Plt Count 368 10^3/cmm (157-399) 01/12/25 06:01 MPV 9.5 fL (7.4-10.4) 01/12/25 06:01 Neut % (Auto) 76.3 % 01/12/25 06:01 Lymph % (Auto) 11.4 % 01/12/25 06:01 [place] % (Auto) 10.9 % 01/12/25 06:01 Eos % (Auto) 0.7 % 01/12/25 06:01 Baso % (Auto) 0.3 % 01/12/25 06:01 Neut # (Auto) 8.73 10^3/uL (1.8-7.7) H 01/12/25 06:01 Lymph # (Auto) 1.3 10^3/uL (0.8-4.8) 01/12/25 06:01 [place] # (Auto) 1.3 10^3/uL (0.2-0.9) H 01/12/25 06:01 Eos # (Auto) 0.1 10^3/uL (0.0-0.8) 01/12/25 06:01 Baso # (Auto) 0.0 10^3/uL (0.0-0.1) 01/12/25 06:01 Nucleated RBC % (auto) 0 % 01/12/25 06:01 Nucleated RBCs # 0.0 /100WBC 01/12/25 06:01 Sodium 130 mmol/L (136-145) L 01/12/25 06:01 Potassium 3.2 mmol/L (3.5-5.1) L 01/12/25 06:01 Chloride 92 mmol/L (98-107) L 01/12/25 06:01 Carbon Dioxide 25 mmol/L (22-29) 01/12/25 06:01 Anion Gap 16.2 (5-19) 01/12/25 06:01 BUN 20 mg/dL (6-20) 01/12/25 06:01 Creatinine 1.6 mg/dL (0.5-0.9) H 01/12/25 06:01 GFR Calculation 33.3 mL/min (90-130) L 01/12/25 06:01 Glucose 100 mg/dL (65-115) 01/12/25 06:01 Calculated Osmolality 273 mOsm/kg (285-295) L 01/12/25 06:01 Calcium 8.7 mg/dL (8.5-10.5) 01/12/25 06:01 Magnesium 2.0 mg/dL (1.7-2.3) 01/12/25 06:01 Total Bilirubin 0.5 mg/dL (0.15-1.2) 01/12/25 06:01 AST 64 U/L (0-32) H 01/12/25 06:01 ALT 33 U/L (0-33) 01/12/25 06:01 Alkaline Phosphatase 117 U/L (35-105) H 01/12/25 06:01 Creatine Kinase 1267 U/L (26-192) H* 01/12/25 06:01 C-Reactive Protein 22.4 mg/L (0.0-4.9) H 01/11/25 01:30 Total Protein 6.9 g/dL (6.6-8.7) 01/12/25 06:01 Albumin 3.9 g/dL (3.5-5.2) 01/12/25 06:01 Globulin 3.0 g/dL (1.3-4.6) 01/12/25 06:01 Procalcitonin 0.48 ng/mL (0-0.5) 01/11/25 01:30 Urine Color Yellow (Yellow) 01/11/25 11:05 Urine Appearance Cloudy (CLEAR) A 01/11/25 11:05 Urine pH 7.5 (5-7) 01/11/25 11:05 Ur Specific [place] 1.014 (1.005-1.030) 01/11/25 11:05 Urine Protein 3+ (Negative) A 01/11/25 11:05 Urine Glucose (UA) Negative (Normal) 01/11/25 11:05 Urine Ketones 1+ (Negative) H 01/11/25 11:05 Urine Blood 3+ (Negative) A 01/11/25 11:05 Urine Nitrate Negative (Negative) 01/11/25 11:05 Urine Bilirubin Negative (Negative) 01/11/25 11:05 Urine Urobilinogen 1.0 mg/dL (Negative) 01/11/25 11:05 Ur Leukocyte Esterase Trace (Negative) A 01/11/25 11:05 Urine RBC 3-5 /hpf (0-2) 01/11/25 11:05 Urine WBC 6-10 /hpf (0-5) 01/11/25 11:05 Ur Squamous Epith Cells 11-20 /hpf (0-5) H 01/11/25 11:05 Amorphous Sediment Not Reportable 01/11/25 11:05 Urine Bacteria None seen /hpf (NONE) 01/11/25 11:05 Hyaline Casts 37.23 /lpf 01/11/25 11:05 Urine Opiates Screen Negative ng/mL (Negative) 01/11/25 11:05 Ur Barbiturates Screen Negative ng/mL (Negative) 01/11/25 11:05 Ur Phencyclidine Scrn Negative ng/mL (Negative) 01/11/25 11:05 Ur Amphetamines Screen Negative ng/mL (Negative) 01/11/25 11:05 U Benzodiazepines Scrn Negative ng/mL (Negative) 01/11/25 11:05 Urine Cocaine Screen Negative ng/mL (Negative) 01/11/25 11:05 U Marijuana (THC) Screen Positive ng/mL (Negative) H 01/11/25 11:05 C. difficile (PCR) Negative (Negative) 01/12/25 07:26 Vitals Last Vital Signs Temp 98.1 F 01/12/25 07:34 Pulse 83 01/12/25 07:34 Resp 16 01/12/25 07:34 BP 146/100 01/12/25 07:34 Pulse Ox 96 01/12/25 07:34 O2 Del Method Room Air 01/12/25 07:34 Discharge Plan Discharge Patient Disposition: Home Condition: Stable Prescriptions: Continued pregabalin [Lyrica] 25 mg capsule 25 mg PO DAILY Qty: 14 0RF Cymbalta 60 mg capsule,delayed release(DR/EC) 60 mg PO BID Qty: 60 0RF pantoprazole 40 mg tablet,delayed release (DR/EC) 40 mg PO BID amlodipine 10 mg tablet 10 mg PO QAM metoprolol tartrate 37.5 mg tablet 37.5 mg PO BID Stelara 45 mg/0.5 mL Syringe 45 mg SUBCUT DIRECTED Rx Instructions: pt states that after this dose next dose will be in 3months aspirin 81 mg tablet,delayed release (DR/EC) 81 mg PO QPM atorvastatin 40 mg tablet 40 mg PO QPM Discharge Orders: Discharge Order (Routine); Ordered 01/12/25 Ordered By: Carlos Corbett Referrals: Bucky Rogers MD [Primary Care Provider, Family Practice] - 01/18/25 1:30 pm Patient Instructions: Potassium Content of Foods List (GEN), Opioid Safety Activity Restrictions/Additional Instructions: Please follow-up with your primary doctor for reassessment of kidney function after acute kidney injury and reassessment after gastroenteritis. Please have your primary doctor reassess your potassium after low potassium. Include potassium rich foods. Discharge Attestations Time Spent in Discharge Care*: greater than 30 min Status at Discharge: Cognitive status at discharge: cognitively intact , Behavioral status at discharge: cooperative, can be uncooperative and independent in ADL's , Quality Metrics Clinical Quality Measures [ No reported AMI, CVA or VTE this stay] Coding Level of Care Code 15936 Total time (in minutes) for Discharge: 35 Diagnoses Leukocytosis D72.829 Thrombocytosis D75.839 Hyponatremia E87.1 Hypokalemia E87.6 Dehydration E86.0 Acute kidney injury N17.9 Elevated CK R74.8
[2025-01-12 11:35] VITALS: BP 156/86; PULSE 70; RESP 15; TEMP 37.3; O2SAT 93
--- NOTE | 2025-01-12 11:45 | PC.CHAP ---
Pastoral Care Encounter/Spiritual Assessment Type of Contact [] Declined crime lab analyst visit [] Patient/Family/Request visit [] Outpatient visit [] Follow-up visit [] Physician referral [] Code/Alert [x] Routine visit [] Staff referral [] Actively dying [] Patient sleeping [] Family support [] [] Out of room [] Palliative care [] [] Receiving care in room [] Pre-surgical visit [] Trauma [] Long length of stay [] ICU visit [] Other: Relational/Emotional Strength [x] Patient feels connected with others/family/visitors/staff [] Distress [] Loneliness/isolation [] Abandonment Spirituality of Patient [x] Person of Ceci [x] Attends Anglican of their Ceci [x] Believes in Prayer [x] Reads Bible or Baptism materials [] There are Spiritual issues to be addressed [employer] [employer] Operator Interventions [x] Prayer [x] Active listening [x] Non-anxious presence [x] Spiritual/emotional support [] Crisis/trauma care [] Spiritual counseling [] Bereavement support [] Provided bereavement packet [] Provided Bible/devotional materials [] Provided toy/stuffed animal, coloring book to patient or family member [] Provided Communion [] Anointing/[place] [] Salvation [x] Completed spiritual assessment [] Other: Impact on Illness or Injury [] Angry [] Fearful [] Anxious [] Often cries [] Exhaustion [] Unable to work [] Unable to attend confucianism [] Unable to walk/stand [] Unable to read [] Unable to drive [] Unable to eat/drink [] Unable to sleep [] Unable to be with family [] Patient intubated [] Other: Summary Time spent with patient 5 min
[2025-01-12 11:58] VITALS: BP 156/86; PULSE 170; RESP 15; TEMP 37.3; O2SAT 93
== END 2025-01-12 12:00 | disposition home or self-care (01) ==
LOC: ER 01-11 05:14 → ER IP 01-11 07:12 → MEDSURG 01-11 17:57
PROVIDERS: Admitting Provider Internal Medicine; Emergency Provider Emergency Medicine; PCP Family Medicine; Visit Provider Internal Medicine
DX: D72.829 Elevated white blood cell count, unspecified (principal); D75.839 Thrombocytosis, unspecified; E87.1 Hypo-osmolality and hyponatremia; E87.6 Hypokalemia; E86.0 Dehydration; N17.9 Acute kidney failure, unspecified; R74.8 Abnormal levels of other serum enzymes; Z79.82 Long term (current) use of aspirin; K21.9 Gastro-esophageal reflux disease without esophagitis; G62.9 Polyneuropathy, unspecified; Z86.14 Personal history of Methicillin resistant Staphylococcus aureus infection; M62.82 Rhabdomyolysis; R11.15 Cyclical vomiting syndrome unrelated to migraine; I10 Essential (primary) hypertension; Z82.49 Family history of ischemic heart disease and other diseases of the circulatory system; F17.210 Nicotine dependence, cigarettes, uncomplicated
CPT/HCPCS: 36415; 74176; 80053; 80306; 81001; 82550; 83735; 84145; 85025; 86140; 87045; 87427; 87449; 87493; 96365; 96375; 96376; 99285; G0378; J1630; J1885; J2405; J2470; J3010; J9999

== ENCOUNTER → 2025-02-17 13:03 | Outpatient (BNVA) | payer MEDICARE, MEDICAID, SELFPAY | PROVIDERS: PCP Family Medicine; Visit Provider Podiatrist Foot & Ankle Surgery | DX: M20.41 Other hammer toe(s) (acquired), right foot (principal); M20.42 Other hammer toe(s) (acquired), left foot; L60.3 Nail dystrophy; G62.9 Polyneuropathy, unspecified | CPT/HCPCS: 99214 ==

== ENCOUNTER → 2025-04-14 12:46 | Outpatient (BNVA) | payer MEDICARE, MEDICAID, SELFPAY | PROVIDERS: PCP Family Medicine; Visit Provider Podiatrist Foot & Ankle Surgery | DX: M20.41 Other hammer toe(s) (acquired), right foot (principal); M20.42 Other hammer toe(s) (acquired), left foot; L60.3 Nail dystrophy; G62.9 Polyneuropathy, unspecified | CPT/HCPCS: 99214 ==

== ENCOUNTER → 2025-04-28 15:52 | Outpatient (BNVA) | payer MEDICARE, MEDICAID, SELFPAY | PROVIDERS: PCP Family Medicine; Visit Provider Nurse Practitioner Family | DX: L40.0 Psoriasis vulgaris (principal); L40.8 Other psoriasis | CPT/HCPCS: 99214 ==

== ENCOUNTER 2025-05-10 05:53 | Day surgery (SDC) | payer OTHER, MEDICAID, SELFPAY ==
--- NOTE | 2025-05-10 06:03 | ANES.PREANE2 ---
Pre-Anesthetic Assessment Height/Weight: Height 5 ft 6 in Operation Date: 05/10/25 07:00 Proposed Procedures p Partial Amputation LEFT Second Toe(Left) - Blair Villareal DPM Anesthetic Plan ASA status: 3 Anesthesia: General Other: No prior issues with anesthesia N.p.o. since yesterday evening History of hypertension on amlodipine and metoprolol GERD, controlled with Protonix Prior echo 2021 showing EF of 70% with no RWMA Prior CVA Chronic hyponatremia BMP ordered Plan for MAC anesthesia with local via surgeon Medications/Allergies Home Medications ?Medication ?Instructions ?Recorded ?Confirmed ?Last Taken ?Type duloxetine 60 mg capsule,delayed 60 mg PO BID #60 caps 02/15/20 05/10/25 05/10/25 Rx release (Cymbalta) pantoprazole 40 mg tablet,delayed 40 mg PO BID 09/04/21 05/10/25 05/10/25 History release aspirin 81 mg tablet,delayed 81 mg PO QPM 04/09/22 05/06/25 01/10/25 History release amlodipine 10 mg tablet 10 mg PO QAM 05/14/23 05/10/25 05/10/25 History metoprolol tartrate 37.5 mg tablet 37.5 mg PO BID 08/20/23 05/10/25 05/10/25 History atorvastatin 40 mg tablet 80 mg PO QPM 10/05/24 05/06/25 05/05/25 History ustekinumab 45 mg/0.5 mL 45 mg SUBCUT DIRECTED 12/01/24 05/06/25 11/13/24 History subcutaneous syringe (Stelara) silver sulfadiazine 1 % topical 1 applic topical BID #20 grams 02/03/25 04/14/25 Unknown Rx cream (Silvadene) pregabalin 25 mg capsule (Lyrica) 25 mg PO DAILY #14 caps 04/14/25 05/10/25 05/10/25 Rx ibuprofen 800 mg tablet 800 mg PO TID PRN pain 1 month #90 04/20/25 05/06/25 Unknown Rx tabs Allergies Allergy/AdvReac Type Severity Reaction Status Date / Time clindamycin Allergy Severe Unconscious Verified 04/14/25 12:52 adhesive tape Allergy Intermediate rash, red Verified 04/14/25 12:52 codeine Allergy Unknown ALGY-Anaphy Verified 04/14/25 12:52 laxis paroxetine (From Paxil) Allergy Unconscious Verified 04/14/25 12:52 [facility] Anesthesia Medical History Hypokalemia MRSA (methicillin resistant staph aureus) culture positive Dehydration Hyponatremia Primary osteoarthritis of left knee UTI (urinary tract infection) Metabolic acidosis Acute on chronic renal insufficiency Cyclical vomiting, intractable Sepsis LEVY (acute kidney injury) Cannabinoid hyperemesis syndrome Marijuana abuse Acute kidney injury Hypochloremic alkalosis Cyclical vomiting, intractable Osteomyelitis Hardware complicating wound infection Septic arthritis Postoperative anemia History of cardiovascular stress test (~10/2021) History of Holter monitoring (~12/2021) Baseline sinus rhythm, 50-129 bpm with average 79 bpm, one 4 beat run asymptomatic vtach Dyslipidemia Chronic kidney disease Cellulitis of toe of left foot GERD (gastroesophageal reflux disease) History of migraine Gout Cellulitis Nonunion after arthrodesis Pain in left ankle Pain in left foot High anion gap metabolic acidosis Cyclical vomiting Hepatitis B core antibody positive Surface antibody positive, surface antigen negative, HBV DNA and hepatitis b envelope Ag negative = equals past infection. Check LFTs q 3-6 months on biologic therapy. Repeat hepatitis serology if LFTs positive. Risk of reactivation. Primary osteoarthritis of right knee Tendinopathy of right rotator cuff DDD (degenerative disc disease), lumbosacral Cyclical vomiting Alcohol withdrawal Ileus Memory loss CVA (cerebral vascular accident) incidental finding on MR done for hearing loss, located in left cerebellar region on MRI performed early 2021 Elevated troponin GI bleed nsaid induced gastritis Intermittent palpitations Frozen shoulder syndrome Cannabinoid hyperemesis syndrome History of colon polyps tubular adenomas Hypertension Anxiety Plaque psoriasis High risk medication use biologic agent for psoriasis Psoriatic arthritis Major depressive disorder, recurrent, in partial remission Post-traumatic stress disorder, chronic Cannabis dependence, uncomplicated Surgical History Hx of knee surgery bilateral Hx laparoscopic cholecystectomy History of colonoscopy (~09/2021) History of hysterectomy History of ankle surgery multiple to left ankle History of shoulder surgery History of pelvic surgery History of eye surgery Has metal around eye orbit History of toe surgery multiple to left foot Family History Mother Stroke Psychiatric illness bipolar/depression Cancer Hypertension Hyperlipidemia Heart disease Migraines Father Cancer lung Heart disease Brother Psychiatric illness depression Other CAD (coronary artery disease) Diabetes Lung disease Social History Smoking and tobacco/nicotine status: current every day tobacco/nicotine user cigarettes [ Other cigarette details: Quarter to half pack a day] Alcohol intake: current Substance/Drug Use: current Substance/Drug use frequency: daily Data Anesthesia Cardiac Studies: Echocardiogram 10/06/24 Sestamibi Stress Test (Cardiology) 11/01/21 Cardiac Event Monitor 11/20/21
[2025-05-10 06:13] VITALS: BP 152/108; PULSE 74; RESP 18; TEMP 36.5; O2SAT 99; BMI 25.0
--- NOTE | 2025-05-10 07:00 | W.PM.OPSUD ---
Surgery/Procedure H&P Update DATE OF PROCEDURE: May 10, 2025 DATE H&P PERFORMED: 04/14/25 H&P UPDATE INFORMATION: I have reviewed H&P completed within last 30 days, I have examined patient prior to procedure, No changes to prior documentation, H&P is in [facility] EMR on date indicated and Risks and benefits of the procedure reviewed PREOP DIAGNOSIS: Hammertoe left foot PLANNED PROCEDURE: Operation Date: 05/10/25 07:00 Proposed Procedures p Partial Amputation LEFT Second Toe(Left) - Blair Villareal DPM
[2025-05-10 07:32] LABS: Anion Gap 17.6 (5-19); Blood Urea Nitrogen 15 mg/dL (6-20); Calcium 9.6 mg/dL (8.5-10.5); Carbon Dioxide 24 mmol/L (22-29); Chloride 103 mmol/L (98-107); Creatinine Clr Calc Pharmacy 78.0249; Glucose 85 mg/dL (65-115); Osmolality Calculated 290 mOsm/kg (285-295); Potassium 4.6 mmol/L (3.5-5.1); Sodium 140 mmol/L (136-145)
[2025-05-10] MEDS: ceFAZolin 2,000 mg SDV 2000 MG IVP (07:42)
--- NOTE | 2025-05-10 07:47 | PM.OP ---
Operative Report Date of procedure: May 10, 2025 Surgeon: Blair Villareal DPM Procedure: Date of procedure: 05/10/2025 Pre-op diagnosis: Left foot second toe mallet toe Post-op diagnosis: Same Post-op findings: Rigid DIPJ left foot second toe Procedure done: Partial amputation left second digit CPT 34999 Implants: None Specimens removed: Distal phalanx left second toe Surgeon: Dr. Blair Villareal DPM [employer] Supervisor: Maria Esther Estimated blood loss: 1 cc Tourniquet time: 12 minutes Complications: None Patient is a 55-year-old female that has a history of left foot second digit painful mallet toe. The patient has had the aforementioned chief complaint for some time. Conservative treatment measures have been attempted and the patient has opted for surgical intervention at this time. A lengthy discussion regarding the procedure, including risks and complications has been had with the patient and is noted in the recent clinic note. Written and verbal consent have been obtained. All patient questions have been answered to the patient?s satisfaction. No written or verbal guarantees have been given or implied. The patient has been NPO since midnight. The history has been reviewed and the history and physical is current. The signed consent was confirmed and placed in the patient chart. Patient imaging has been reviewed and is consistent with the diagnosis. Under mild sedation, the patient was brought into the operating room and placed on the table in the supine position. IV antibiotics were given by the anesthesia team as preoperative surgical prophylaxis. MAC sedation was then performed by the anesthesiateam. A local field block was then performed using 0.5% Marcaine plain. A pneumatic tourniquet was then placed about the left ankle. The operative extremity was then prepped and draped in the usual fashion. The extremity was then elevated and exsanguinated before the tourniquet was inflated to 250 mmHg. After inflation, the following procedure was then performed. Attention was directed to the left foot second digit where a rigid DIPJ contracture was noted at the second digit. #15 blade was used to make a fishmouth incision at the level of the distal interphalangeal joint. This was carried down to the level of the distal interphalangeal joint where medial and lateral collateral ligaments were excised. Distal aspect of the second insert was passed from the operative field to be sent as specimen. Site was irrigated with sterile saline before attention was directed to closure. 4-0 nylon was then used to reapproximate incision edges. After closure the tourniquet was let down and good hyperemic response was noted to all digits of the left foot. Incision site was then dressed with Xeroform, 4 x 4 gauze, Kerlix, Colin bandage. The patient tolerated the procedure and anesthesia well and without complication. The patient was transported from the operating room to the recovery room with vital signs stable and vascular status intact to all digits of the left foot. The patient was given both written and verbal instructions to remain weightbearing as tolerated to the operative extremity, to keep dressings/splint clean, dry and intact and to take pain medication as directed. The patient will follow-up in the outpatient setting at their scheduled appointment. The patient was discharged with my personal number and was instructed to call if any questions or issues should arise. They were discharged home once anesthesia criteria was met.
[2025-05-10] MEDS: BUPivacaine 0.5% INJ 30 mL 10 ML INJECTION (07:57)
--- NOTE | 2025-05-10 08:15 | P.BOP_ITS ---
Date of procedure: 05/10/25 Surgeon name: Dr. Blair Villareal DPM Enrollment Nurse(s) name(s): Maria Esther Procedure(s) performed: Partial digit amputation left foot 2nd toe Description of findings: Rigid hammertoe left 2nd toe Estimated blood loss: 1cc Tourniquet time: 12 minutes Specimen(s) removed: distal phalanx left 2nd toe Post-operative diagnosis: rigid hammertoe
[2025-05-10 08:16] VITALS: BP 99/69; PULSE 68; RESP 16; TEMP 36.3; O2SAT 98
[2025-05-10 08:21] VITALS: BP 95/68; PULSE 73; RESP 16; O2SAT 96
[2025-05-10 08:26] VITALS: BP 112/74; PULSE 72; RESP 16; O2SAT 96
[2025-05-10 08:31] VITALS: BP 117/83; PULSE 72; RESP 16; O2SAT 96
[2025-05-10 08:42] VITALS: BP 119/79; PULSE 66; RESP 17; TEMP 36.3; O2SAT 97
--- NOTE | 2025-05-10 09:05 | ANE.PACU2 ---
Inpatient post-anesthesia follow up: Airway intact: Yes Vital signs: Temperature 97.4 F Pulse Rate 66 Respiratory Rate 17 Blood Pressure 119/79 Pulse Oximetry 97 Oxygen Delivery Me thod Room Air Oxygen Flow Rate Fraction of Inspir ed Oxygen Hydration adequate: Yes Nausea and vomiting: No Pain level: 1 Mental status: Baseline
== END 2025-05-10 09:10 | disposition home or self-care (01) ==
PROVIDERS: PCP Family Medicine; Visit Provider Podiatrist Foot & Ankle Surgery
PROC: (CPT 28825; principal; 2025-05-10 07:00)
DX: M20.5X2 Other deformities of toe(s) (acquired), left foot (principal); K21.9 Gastro-esophageal reflux disease without esophagitis; Z86.14 Personal history of Methicillin resistant Staphylococcus aureus infection; E87.1 Hypo-osmolality and hyponatremia; N17.9 Acute kidney failure, unspecified; F12.90 Cannabis use, unspecified, uncomplicated; E78.5 Hyperlipidemia, unspecified; I12.9 Hypertensive chronic kidney disease with stage 1 through stage 4 chronic kidney disease, or unspecified chronic kidney disease; N18.9 Chronic kidney disease, unspecified; Z86.73 Personal history of transient ischemic attack (TIA), and cerebral infarction without residual deficits; F41.9 Anxiety disorder, unspecified; F32.9 Major depressive disorder, single episode, unspecified; F43.12 Post-traumatic stress disorder, chronic; F17.210 Nicotine dependence, cigarettes, uncomplicated
CPT/HCPCS: 28825; 36415; 80048; 88305; 88311; J0690; J2250; J2405; J2704; J3010; J3490; J7030; J9999

== ENCOUNTER 2025-05-19 13:03 | Outpatient (CLI) | payer OTHER, MEDICAID, SELFPAY ==
--- NOTE | 2025-05-19 13:13 | US_ITS ---
WS: [id number] ULTRASOUND SOFT TISSUES LEFT neck HISTORY: Palpable nodule LEFT neck. COMPARISON: None available. TECHNIQUE: 2-D and color Doppler imaging is submitted. Palpable nodule on the LEFT neck corresponds to a hypoechoic nodule measuring 0.2 x 1.0 x 1.1 cm. This is probably a small lymph node. No pathologically enlarged nodes or additional mass. US/US soft tissue/extremity [id number] IMPRESSION: Superficial nodule along the LEFT neck is probably a very small lymph node.
== END 2025-05-19 13:04 | disposition home or self-care (01) ==
LOC: RAD 13:04
PROVIDERS: PCP Family Medicine; Visit Provider Family Medicine
DX: R59.0 Localized enlarged lymph nodes (principal)
CPT/HCPCS: 76882

== ENCOUNTER → 2025-05-26 15:11 | Outpatient (BNVA) | payer OTHER, MEDICAID, SELFPAY | PROVIDERS: PCP Family Medicine; Visit Provider Podiatrist Foot & Ankle Surgery | DX: M20.41 Other hammer toe(s) (acquired), right foot (principal); M20.42 Other hammer toe(s) (acquired), left foot; L60.3 Nail dystrophy; G62.9 Polyneuropathy, unspecified | CPT/HCPCS: 99213 ==

== ENCOUNTER → 2025-06-21 13:56 | Outpatient (BNVA) | payer OTHER, MEDICAID, SELFPAY | PROVIDERS: PCP Family Medicine; Visit Provider Podiatrist Foot & Ankle Surgery | DX: M20.41 Other hammer toe(s) (acquired), right foot (principal); M20.42 Other hammer toe(s) (acquired), left foot; L60.3 Nail dystrophy; G62.9 Polyneuropathy, unspecified | CPT/HCPCS: 99213 ==

== ENCOUNTER 2025-08-29 23:49 | Observation (INO) | payer MEDICARE, MEDICAID, SELFPAY ==
--- OUTSIDE RECORDS SUMMARY | 2024-06-27 03:00 | XMS_ITS ---
Author Organization [facility] Address [address] [place] [address] Care Team Providers Care General Manager Name Role Phone Bucky Rogers MD Primary Care Provider Compa Hall Unavailable [phone] Migration, Provider Unavailable Unavailable REASON FOR VISIT EMR-Juan Encounters Encounter Location Date Provider Diagnosis Migrated_Facility 0 0 06/27/2024 Provider Migration Plan Of Treatment Medication Medication Name Sig Start Date Stop Date Notes Lyrica 150 MG Capsule 1 Tablet Three times a Day Oral 1012/201707/05/2018 Progress Notes * Rachelle SCHAEFER LDOB: 8 (55 yo F)Acc No.[id number]:06/27/2024 Patient: Rachelle CONNOR :1970 A ge:54 Y S ex:Female Address:[address] [place] [id number] * Refills Stop Lyrica Capsule, 150 MG, Oral, 1 Tablet Three times a Day Subjective: * Chief Complaints: * E MR-Juan * * Date:
--- OUTSIDE RECORDS SUMMARY | 2024-06-27 03:00 | XMS_ITS ---
Author Organization [facility] Address [address] [place] [address] Care Team Providers Care Certified Court/Medical Interpreter Name Role Phone Bucky Rogers MD Primary Care Provider Compa Hall Unavailable [phone] Migration, Provider Unavailable Unavailable REASON FOR VISIT EMR-Juan Encounters Encounter Location Date Provider Diagnosis Migrated_Facility 0 0 06/27/2024 Provider Migration Plan Of Treatment Medication Medication Name Sig Start Date Stop Date Notes Lyrica 150 MG Capsule 1 Tablet Three times a Day Oral 1012/201707/05/2018 Progress Notes * Rachelle SCHAEFER LDOB: 8 (55 yo F)Acc No.[id number]:06/27/2024 Patient: Rachelle CONNOR :1970 A ge:54 Y S ex:Female Address:[address] [place] [id number] * Refills Stop Lyrica Capsule, 150 MG, Oral, 1 Tablet Three times a Day Subjective: * Chief Complaints: * E MR-Juan * * Date:
--- OUTSIDE RECORDS SUMMARY | 2024-06-28 03:00 | XMS_ITS ---
Author Organization [facility] Address [address] [place] [address] Care Team Providers Care Horse Show Judge Name Role Phone Bucky Rogers MD Primary Care Provider Unavaila Compa Estevez Unavailable [phone] Migration, Provider Unavailable Unavailable Allergies Allergen (clinical drug ingredient) Drug/Non Drug Allergy documented on EMR Reaction Allergy Type Onset Date Status valproate Depakote Black out Drug Allergy Active paroxetine Paxil Breathing issues and black outs Drug Allergy Active codeine Codeine Trouble breathing Drug Allergy Active Latex Latex Blisters and sores Allergy Active REASON FOR VISIT EMR-Juan Medications Medication SIG (Take, Route, Frequency, Duration) Notes Start Date End Date Status Vitamin D *[facility]* Active Lovenox *[facility]* Active Social History Social History Additional Details Category Social Info Options Details Migrated Social History Migrated Social History Alcoholic beverages? - No, Currently on disability? - Yes, Drug or substance abuse? - No, exposure to toxins/poisonous substances at work - No, Involved in any legal proceedings or lawsuits? - No, Marital Status - single, Nonprescription drug use? - No, Participation in detoxification or rehabilitation - Yes, Smoking - No, Smoking status (MU) - Former smoker, Working currently? - No Encounters Encounter Location Date Provider Diagnosis Migrated_Facility 0 0 06/28/2024 Provider Migration Plan Of Treatment No Information Progress Notes * Rachelle SCHAEFER LDOB: [birth year] (55 yo F)Acc No.[id number]:06/28/2024 Patient: Rachelle CONNOR :1970 A ge:54 Y S ex:Female Address:[address] , [place] [address] Subjective: * Chief Complaints: * E Xenia * Medical History: Arthritis, A sthma, C ancer, C onstipation, D epression, H igh blood pressure, K idney infection, M igraines, S tomach ulcer, S welling of multiple joints, * Surgical History: Ankle surgery Biceps tendon repair Collar Bone surgery Eye surgery Knee Surgery Pelvic surgery * Family History: M igrated Family History: : Cancer, c hronic pain, D iabetes, D rug addiction, f ibromyalgia, H eart disease, p sychiatric problems, T uberculosis, v ascular disease.? * Social History: M igrated Social History: M igrated Social History: Alcoholic beverages? - No, C urrently on disability? - Yes, D rug or substance abuse? - No, e xposure to toxins/poisonous substances at work - No, I nvolved in any legal proceedings or lawsuits? - No, M arital Status - single, N onprescription drug use? - No, P articipation in detoxification or rehabilitation - Yes, S moking - No, S moking status (MU) - Former smoker, W orking currently? - No. * Medications: T akingLovenox , Notes to Pharmacist: *Pick strength-form from [facility] for eRX*Vitamin D , Notes to Pharmacist: *Pick strength-form from [facility] for eRX*Taking Lovenox , Notes to Pharmacist: *Pick strength-form from [facility] for eRX*Taking Vitamin D , Notes to Pharmacist: *Pick strength-form from [facility] for eRX* * Allergies: C odeine: Trouble breathing - AllergyLatex: Blisters and sores - AllergyDepakote: Black out - AllergyPaxil: Breathing issues and black outs - Allergy * * Date:
--- OUTSIDE RECORDS SUMMARY | 2024-06-28 03:00 | XMS_ITS ---
Author Organization [facility] Address [address] [place] [address] Care Team Providers Care Network Cabler Name Role Phone Bucky Rogers MD Primary Care Provider Unavaila Compa sEtevez Unavailable [phone] Migration, Provider Unavailable Unavailable Allergies Allergen (clinical [...] Status Vitamin D [facility]* Active Lovenox *[facility]* Active Social History Social History [...] Rachelle SCHAEFER LDOB: [birth year] (55 yo F)Acc No.[id number]:06/28/2024 Patient: Rachelle CONNOR :1970 A ge:54 Y S ex:Female Address:[address] , [place] [address] Subjective: * Chief Complaints: * E Xenia [...]
[2025-08-29 23:36] VITALS: BP 130/94; PULSE 116; RESP 19; TEMP 37.3; O2SAT 99; BMI 24.2
[2025-08-29 23:53] VITALS: BP 130/94; RESP 18; O2SAT 98
[2025-08-30] VITALS (21 sets, daily range): BP systolic 111–188; BP diastolic 65–130; PULSE 67–100; RESP 17–19; TEMP 36.8–38; O2SAT 90–97; BMI 24.4
[2025-08-30] LABS: Hematocrit 40.0 % (36-47); Hemoglobin 14.30 g/dL (11.27-16.99); Mean Corpuscular HGB Conc 35.8 g/dL (30-55); Mean Corpuscular Hemoglobin 30.8 pg (27-33); Mean Corpuscular Volume 86.0 fl (85-98); Nucleated Red Blood Cells % 0 %; Platelet Count 452 10^3/cmm (157-399); Red Blood Count 4.65 10^6/uL (3.85-5.65); White Blood Count 18.87 10^3/uL (3.29-11.43)
--- OUTSIDE RECORDS SUMMARY | 2025-08-30 00:02 | XMS_ITS | Encounter Summary ---
Author Organization [facility] Address [address] [place] [address] Care Team Providers Care Wrestling Coach Name Role Phone Tom Dan NP Primary Care Provider [phone] Encounter Details Date Type Department Care Team (Latest Contact Info) Description 08/09/1999 Outpatient Historical [facility] Family Medicine [place] [address] [phone] Paola Dwyer NO ADDRESS ON FILE Headache(784.0) (Primary Dx); Nonallopathic lesion of abdomen and other sites, not elsewhere classified; Nonallopathic lesion of rib cage, not elsewhere classified Social History Tobacco Use Types Packs/Day Years Used Date Smoking Tobacco: Never Assessed Comments Unknown Sex and Gender Information Value Date Recorded Sex Assigned at Not on file Legal Sex Female 4:22 AM HEART SPECIALIST Gender Identity Not on file Sexual Orientation Not on file documented as of this encounter Plan of Treatment Not on file documented as of this encounter Visit Diagnoses Diagnosis Headache(784.0)- Primary Headache Nonallopathic lesion of abdomen and other sites, not elsewhere classified Nonallopathic lesion of rib cage, not elsewhere classified documented in this encounter Care Teams Wrestling Coach Relationship Specialty Start Date End Date Tom Dan NP [address] [place] [phone] PCP - General NURSE PRACTITIONER 08/16/12 documented as of this encounter
--- OUTSIDE RECORDS SUMMARY | 2025-08-30 00:02 | XMS_ITS | Encounter Summary ---
Author Organization [facility] Address [address] [place] [address] Care Team Providers Care Creative Designer Name Role Phone Tom Dan WINCH DRIVER Primary Care Provider [phone] Encounter Details Date Type Department Care Team (Late st Contact Info) Description 10/12/2007 Emergency [facility] Emergency Department [address] [place] [phone] Ed, Physician NO ADDRESS ON FILE Social History Tobacco Use Types Packs/Day Years Used Date Smoking Tobacco: Never Assessed Comments Unknown Sex and Gender Information Value Date Recorded Sex Assigned at Not on file Legal Sex Female 4:22 AM FLOOR PERSON Gender Identity Not on file Sexual Orientation Not on file documented as of this encounter Plan of Treatment Not on file documented as of this encounter Visit Diagnoses Not on filedocumented in this encounter Care Teams Creative Designer Relationship Specialty Start Date End Date Tom Dan NP [address] [place] [phone] PCP - General NURSE PRACTITIONER 08/16/12 documented as of this encounter
--- OUTSIDE RECORDS SUMMARY | 2025-08-30 00:02 | XMS_ITS | Encounter Summary ---
Author Organization [employer] [facility] Address [address] [place] [address] Care Team Providers Care Paper Cup Machine Tender Name Role Phone Tom Dan NP Primary Care Provider [phone] Encounter Details Date Type Department Care Team (Late st Contact Info) Description 01/07/2003 Inpatient Historical [facility] [place], Loc [place] MD NO ADDRESS ON FILE PERSISTENT VOMITING (Primary Dx) Social History Tobacco Use Types Packs/Day Years Used Date Smoking Tobacco: Never Assessed Comments Unknown Sex and Gender Information Value Date Recorded Sex Assigned at Not on file Legal Sex Female 4:22 AM BORDER PATROL OFFICER Gender Identity Not on file Sexual Orientation Not on file documented as of this encounter Plan of Treatment Not on file documented as of this encounter Visit Diagnoses Diagnosis Persistent vomiting- Primary documented in this encounter Care Teams Paper Cup Machine Tender Relationship Specialty Start Date End Date Tom Dan NP [address] [place] [phone] PCP - General NURSE PRACTITIONER 08/16/12 documented as of this encounter
--- OUTSIDE RECORDS SUMMARY | 2025-08-30 00:02 | XMS_ITS | Clinical Summary ---
Author Organization [facility] Address [address] [place] [address] Care Team Providers Care Microfilm Processor Name Role Phone Tom Dan ROOF TRUSS DETAILER Primary Care Provider [phone] Allergies Active Allergy Reactions Criticality Noted Date Comments Adhesive Tape-Silicones Other (See Comments) 08/16/2012 Plastic tapes leaves whelps Codeine Anaphylaxis High 03/28/2010 Fentanyl Rash Low 08/16/2012 Midazolam Rash Low 08/16/2012 Medications promethazine (PHENERGAN) 25 mg Oral tabletIndicatio ns:Back pain Take 25 mg by mouth every 6 hours as needed. Active gabapentin (NEURONTIN) 800 mg Oral tablet Take 800 mg by mouth 3 times daily. Active multivitamins with minerals (MULTIPLE VITAMIN-MINERAL S) Oral Tab Take 1 Tab by mouth daily. Active CALCIUM CARBONATE (CALCIUM 300 ORAL) Take 500 mg by mouth 3 times daily. Active DULoxetine (CYMBALTA) 60 mg Oral CpDR Take 60 mg by mouth daily. Active hydroCHLOROthia zide 25 mg tablet Take 25 mg by mouth daily. 05/06/2020 Active oxyCODONE-aceta minophen (Percocet) 5-325 mg tabletIndicatio ns:Rupture of ulnar collateral ligament of left thumb, subsequent encounter Take 1 Tablet by mouth every 4 hours as needed for Pain. Max Daily Amount: 6 Tablets 30 Tablet 06/07/2020 Active Active Problems Problem Noted Date Diagnosed Date Abdominal pain 08/17/2012 Esophagitis 08/17/2012 Acute upper GI hemorrhage 08/16/2012 Chronic vomiting 08/16/2012 Hematemesis 08/16/2012 Back pain 11/07/2009 Immunizations Immunization Administration Dates Next Due (PNEUMOVAX 23)(50 YRS UP) PN EUMOCOCCAL POLYSACCHARIDE (PPV23) 0.5 ML, IM 06/02/2010 (TDVAX)(7 YRS UP) TETANUS AN D DIPHTHERIA TOXOIDS, ADSORBED (2 LF OF TETANUS TOXOID AND 2 LF OF DIPHTHERIA TOXOID), 0.5ML (PF), IM 08/16/1999 Influenza Seasonal Unspecified Formulation IM Influenza Vaccine Split 3+ Yrs PF IM 08/17/2012 Family History Medical History Relation Name Comments Cancer Mother Heart Disease Mother Relation Name Status Comments Mother Social History Tobacco Use Types Packs/Day Years Used Date Smoking Tobacco: Former Cigarettes 0.3 30 1 10/30/1981 - 08/29/2012 Smokeless Tobacco: Never Tobacco Cessation:Ready to Q uit: Yes; Counseling Given: Yes Alcohol Use Standard Drinks/Week Comments No 0 (1 standard drink = 0.6 oz pur e alcohol) Comments No Sex and Gender Information Value Date Recorded Sex Assigned at Not on file Legal Sex Female 4:22 AM PRINTED CIRCUIT BOARD PANELS TRIMMER Gender Identity Not on file Sexual Orientation Not on file Occupation Industry Job Start Date Job End Date Not on file Not on file Not on file Not on file Last Filed Vital Signs Vital Sign Reading Time Taken Comments Blood Pressure 142/70 06/15/2020 3:24 PM CDT Pulse 75 06/15/2020 3:24 PM CDT Temperature 37.1 C (98.8 F) 06/07/2020 2:20 PM CDT Respiratory Rate 16 06/07/2020 2:50 PM CDT Oxygen Saturation 92% 06/07/2020 2:50 PM CDT Inhaled Oxygen Concentration - - Weight 64.9 kg (143 lb) 06/15/2020 3:24 PM CDT Height 167.6 cm (5' 6 ) 06/15/2020 3:24 PM CDT Body Mass Index 23.08 06/15/2020 3:24 PM CDT Plan of Treatment Health Maintenance Due Date Last Done Comments HEPATITIS B VACCINES (1 of 3 - 19+ 3-dose series) 01/28/1987 HPV/Cotest (21-29) 01/28/1989 CERVICAL CANCER SCREENING 01/28/1998 HPV/Cotest (30-65) 01/28/1998 PAP SMEAR 01/28/1998 DTAP/TDAP/TD VACCINES (1 - Tdap) 08/17/1999 08/16/19 99 BREAST CANCER SCREENING 2008 COLORECTAL SCREENING 01/28/2013 Colorectal Cancer Screening 01/28/2013 FIT-DNA Q 3 years 01/28/2013 FIT/FOBT Q 1 year 01/28/2013 Flex Sig/CT Colonography Q 5 years 01/28/2013 ZOSTER VACCINE (1 of 2) 01/28/2018 INFLUENZA VACCINE (#1) 2025 08/17/2012, 1996 Medical Devices Implanted Type Area Family Development Specialist Device Identifier Shelf Expiration Date Model / Serial / Lot Hand/Wrist Internal Brace Sys Ar-[id number] - Sna Implanted:Qty: 1 on 06/07/2020 by Bucky Perez MD at [facility] [place] Left: Finger [employer] 04/01/2025 AR-8978-CP / NA / [id number] Insurance MEDICARE PART A AND B MEDICAID [place] Advance Directives For more information, please contact: [phone] * Full Code (Latest Code Status on File) Date Activated Date Inactivated Comments 08/16/2012 12:05 PM 08/17/2012 4:50 PM Care Teams Microfilm Processor Relationship Specialty Start Date End Date Tom Dan NP [address] [place] [address] PCP - General NURSE PRACTITIONER 08/16/12
--- OUTSIDE RECORDS SUMMARY | 2025-08-30 00:02 | XMS_ITS | Patient Health Record ---
Author Organization [facility] Address [address] [place] [address] Care Team Providers Care Body Trimmer Upholsterer Name Role Phone Bucky Rogers MD Primary Care Provider Conniea Compa Estevez Unavailable [phone] Reason For Referral No Information Medications Medication SIG (Take, Route, Frequency, Duration) Notes Start Date End Date Status Vitamin D *[facility] Active Lovenox *[facility]* Active Social History Social [...] - Former smoker, Working currently? 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) drug use; other (V58.69) 04/25/20 18 Problem resolved confirmed [id number]- Problem Urinary tract infection (69390427) Urinary tract infection (595.0) 04/25/20 18 Problem resolved confirmed [id number]- Problem Heart murmur (42596107) Cardiac murmur (785.2) 04/25/20 18 Problem resolved confirmed [id number]- Problem Exposure to communicable disease (456129482) Contact with or exposure to communicable diseases, unspecified (V01.9) 04/25/20 18 Problem resolved confirmed [id number]- Problem Periumbilical abdominal mass (789.35) 04/25/20 18 Problem resolved confirmed [id number] 911- Plan Of Treatment No Information Insurance Providers Payer Name Payer Address Payer Phone Subscriber Number Group Number Insured Name Patient Relationship to Insured Coverage Start Date Coverage End Date [facility] [address] [address] [place] [address] [id number] Rachelle Mireles Self - patient is the insured [place] Medicaid [address] [place] [address] [id number] Rachelle Mireles Self - patient is the insured Medical (General) History Surgical History Surgery Date(Month/Year) Ankle surgery Biceps tendon repair Collar Bone surgery Eye surgery Knee Surgery Pelvic surgery
--- OUTSIDE RECORDS SUMMARY | 2025-08-30 00:03 | XMS_ITS | Encounter Summary ---
Author Organization [facility] Address [address] [place]order[place]: Epic Prelude ADT [place] [address] Care Team Providers Care Grinder Operator Surface Tool Name Role Phone Tom Dan NP Primary Care Provider [phone] Encounter Details Date Type Department Care Team (Latest Contact Info) Description 04/19/1994 Emergency GravesFidencio MD [address] [address] Social History Tobacco Use Types Packs/Day Years Used Date Smoking Tobacco: Never Assessed Comments Unknown Sex and Gender Information Value Date Recorded Sex Assigned at Not on file Legal Sex Female 4:22 AM GEOSPATIAL TECHNOLOGIST Gender Identity Not on file Sexual Orientation Not on file documented as of this encounter Plan of Treatment Not on file documented as of this encounter Visit Diagnoses Not on filedocumented in this encounter Care Teams Grinder Operator Surface Tool Relationship Specialty Start Date End Date Tom Dan NP [address] [place] [phone] PCP - General NURSE PRACTITIONER 08/16/12 documented as of this encounter
--- OUTSIDE RECORDS SUMMARY | 2025-08-30 00:03 | XMS_ITS | Encounter Summary ---
Author Organization [employer] [facility] Address [address] [place] [address] Care Team Providers Care Senior Front End Web Developer Name Role Phone Tom Dan NP Primary Care Provider [phone] Encounter Details Date Type Department Care Team (Latest Contact Info) Description 02/06/2002 Outpatient Historical HIS [facility] Jorge Cope MD HEMATEMESIS (Primary Dx) Social History Tobacco Use Types Packs/Day Years Used Date Smoking Tobacco: Never Assessed Comments Unknown Sex and Gender Information Value Date Recorded Sex Assigned at Not on file Legal Sex Female 4:22 AM MATERIALS SCHEDULER Gender Identity Not on file Sexual Orientation Not on file documented as of this encounter Plan of Treatment Not on file documented as of this encounter Visit Diagnoses Diagnosis Hematemesis- Primary documented in this encounter Care Teams Senior Front End Web Developer Relationship Specialty Start Date End Date Tom Dan NP [address] [place] [phone] PCP - General NURSE PRACTITIONER 08/16/12 documented as of this encounter
--- OUTSIDE RECORDS SUMMARY | 2025-08-30 00:03 | XMS_ITS | Clinical Summary ---
Author Organization [employer] [facility] [employer] Address [address] [place] [address] Care Team Providers Care Shear Operator Automatic Name Role Phone Ni Tom Todd BEAN Primary Care Provider [phone] Allergies Active Allergy Reactions Criticality Noted Date Comments Adhesive Tape-Silicones Other (See Comments) 08/16/2012 Plastic tapes leaves whelps Codeine Anaphylaxis High 03/28/2010 Fentanyl Rash Low 08/16/2012 Midazolam Rash Low 08/16/2012 Medications gabapentin (NEURONTIN) 800 mg Oral tablet Take 800 mg by mouth 3 times daily. Active HYDROcodone-amina taminophen (NORCO) 7.5-325 mg Oral Tab Take 1 Tab by mouth every 4 hours as needed. Active SUMAtriptan (IMITREX) 50 mg Oral tablet Take 50 mg by mouth every 2 hours as needed. may repeat in 2 hours; max dose 200mg in 24 hours Active topiramate (TOPAMAX) 100 mg Oral tablet Take 100 mg by mouth 2 times daily. Active ranitidine (ZANTAC) 150 mg Oral tablet Take 150 mg by mouth 2 times daily. Active ondansetron (ZOFRAN ODT) [address] 4 mg under tongue every 8 hours as needed. Active mirtazapine (REMERON) 45 mg Oral tablet Take 45 mg by mouth daily at bedtime. Active loratadine (CLARITIN REDITABS) [address] 10 mg inside cheek daily. Active diazepam (VALIUM) 10 mg Oral tablet Take 10 mg by mouth every 8 hours as needed. Active FLUoxetine (PROZAC) 40 mg Oral capsule Take 40 mg by mouth daily. Active fluticasone (FLONASE) 50 mcg/spray Both Nostril SpSn Administer 2 Sprays in each nostril daily. Active conjugated estrogens (PREMARIN) 0.625 mg/gram Vaginal vaginal cream Insert vaginally daily at bedtime. Active albuterol (PROAIR HFA) 90 mcg/Actuation Inhalation HFAA Take 1 Puff by inhalation one time only. Active multivitamin (DAILY-ANTONIETTA) Oral tablet Take 1 Tab by mouth daily. Active oxyCODONE-aceta minophen (PERCOCET) 5-325 mg tabletIndicatio ns:Rupture of ulnar collateral ligament of left thumb, subsequent encounter Take 1 Tablet by mouth every 4 hours as needed for Pain. Max Daily Amount: 6 Tablets 30 Tablet 0 0 Active hydroCHLOROthia zide 25 mg tablet Take 25 mg by mouth daily. 0 Active Active Problems Problem Noted Date Diagnosed [...] Used Date Smoking Tobacco: Former Cigarettes 0.3 Q uit: 08/29/2012 Smokeless Tobacco: Never Alcohol Use Standard Drinks/Week Comments No 0 (1 standard drink = 0.6 oz pur e alcohol) Comments Unknown Sex and Gender Information Value Date Recorded Sex Assigned at Not on file Legal Sex Female 3:07 PM BRIGHT CUTTER Gender Identity Not on file Sexual Orientation [...] 16 06/07/2020 2:50 PM CDT Oxygen Saturation 99% 03/04/2012 2:49 PM CDT Inhaled Oxygen Concentration - - [...] 08/17/2012, 1996 Medical Devices Implanted Type Area Enroute Controller Device Identifier Shelf Expiration Date Model / Serial / Lot Hand/Wrist Internal Brace Sys Ar-8978-Cp - Sna Implanted:Qty: 1 on 06/07/2020 by Bucky Perez MD [place] Left: Finger [employer] 04/01/2025 AR-8978-CP / NA / [id number] Insurance MEDICARE PART A AND B MEDICAID [place] Advance Directives For more information, please contact: [phone] * Full Code (Latest Code Status on File) Date Activated Date Inactivated Comments 03/04/2012 12:26 PM 03/04/2012 6:14 PM Care Teams Shear Operator Automatic Relationship Specialty Start Date End Date Tom Dan NP [address] [place] [phone] PCP - General NURSE PRACTITIONER 08/16/12
--- OUTSIDE RECORDS SUMMARY | 2025-08-30 00:03 | XMS_ITS | Encounter Summary ---
Author Organization [facility] Address [address] Cordero: Epic Prelude ADT [place] [address] Care Team Providers Care Smelter Charger Name Role Phone Tom Dan NP Primary Care Provider [phone] Encounter Details Date Type Department Care Team (Late st Contact Info) Description 04/30/2002 Inpatient Historical Richard Lauren S, DO [address] [place] [address] Social History Tobacco Use Types Packs/Day Years Used Date Smoking Tobacco: Never Assessed Comments Unknown Sex and Gender Information Value Date Recorded Sex Assigned at Not on file Legal Sex Female 4:22 AM SEMICONDUCTOR EQUIPMENT TECHNICIAN Gender Identity Not on file Sexual Orientation Not on file documented as of this encounter Plan of Treatment Not on file documented as of this encounter Visit Diagnoses Not on filedocumented in this encounter Care Teams Smelter Charger Relationship Specialty Start Date End Date Tom Dan NP [address] [place] [address] PCP - General NURSE PRACTITIONER 08/16/12 documented as of this encounter
--- OUTSIDE RECORDS SUMMARY | 2025-08-30 00:03 | XMS_ITS | Encounter Summary ---
Author Organization [facility] Address [address] [place] [address] Care Team Providers Care Orientation & Mobility Specialist Name Role Phone Tom Dan NP Primary Care Provider [phone] Encounter Details Date Type Department Care Team (Latest Contact Info) Description 02/17/2002 Outpatient Historical [facility] [place] [address] [phone] Jorge Cope MD HEMATEMESIS (Primary Dx) Social History Tobacco Use Types Packs/Day Years Used Date Smoking Tobacco: Never Assessed Comments Unknown Sex and Gender Information Value Date Recorded Sex Assigned at Not on file Legal Sex Female 4:22 AM EAR NOSE AND THROAT SPECIALIST Gender Identity Not on file Sexual Orientation Not on file documented as of this encounter Plan of Treatment Not on file documented as of this encounter Visit Diagnoses Diagnosis Hematemesis- Primary documented in this encounter Care Teams Orientation & Mobility Specialist Relationship Specialty Start Date End Date Tom Dan NP [address] [place] [phone] PCP - General NURSE PRACTITIONER 08/16/12 documented as of this encounter
--- OUTSIDE RECORDS SUMMARY | 2025-08-30 00:03 | XMS_ITS | Encounter Summary ---
Author Organization [facility] Address [address] [place]: Epic Prelude ADT [place] [address] Care Team Providers Care Plate Glass Grinder Name Role Phone Tom Dan NP Primary Care Provider Encounter Details Date Type Department Care Team (Late st Contact Info) Description 10/11/1991 Outpatient Historical Social History Tobacco Use Types Packs/Day Years Used Date Smoking Tobacco: Never Assessed Comments Unknown Sex and Gender Information Value Date Recorded Sex Assigned at Not on file Legal Sex Female 4:22 AM SIGN LETTERER Gender Identity Not on file Sexual Orientation Not on file documented as of this encounter Plan of Treatment Not on file documented as of this encounter Visit Diagnoses Not on filedocumented in this encounter Care Teams Plate Glass Grinder Relationship Specialty Start Date End Date Tom Dan NP [address] [place] [phone] PCP - General NURSE PRACTITIONER 08/16/12 documented as of this encounter
--- OUTSIDE RECORDS SUMMARY | 2025-08-30 00:03 | XMS_ITS | Encounter Summary ---
Author Organization [facility] Address [address] Attn: Epic Prelude ADT [place] [address] Care Team Providers Care Frontload Driver Name Role Phone Tom Dan NP Primary Care Provider [phone] Encounter Details Date Type Department Care Team (Latest Contact Info) Description 08/20/1994 Emergency Fidencio Anne MD [address] [place] [phone] Social History Tobacco Use Types Packs/Day Years Used Date Smoking Tobacco: Never Assessed Comments Unknown Sex and Gender Information Value Date Recorded Sex Assigned at Not on file Legal Sex Female 4:22 AM PRIVATE SECRETARY Gender Identity Not on file Sexual Orientation Not on file documented as of this encounter Plan of Treatment Not on file documented as of this encounter Visit Diagnoses Not on filedocumented in this encounter Care Teams Frontload Driver Relationship Specialty Start Date End Date Tom Dan NP [address] [place] [phone] PCP - General NURSE PRACTITIONER 08/16/12 documented as of this encounter
--- OUTSIDE RECORDS SUMMARY | 2025-08-30 00:03 | XMS_ITS | Encounter Summary ---
Author Organization [facility] Address [address] Attn: Epic Prelude ADT [place] [address] Care Team Providers Care Dater Assembler Name Role Phone Tom Dan RATTLESNAKE FARMER Primary Care Provider [phone] Encounter Details Date Type Department Care Team (Late st Contact Info) Description 04/11/1989 Outpatient Historical Social History Tobacco Use Types Packs/Day Years Used Date Smoking Tobacco: Never Assessed Comments Unknown Sex and Gender Information Value Date Recorded Sex Assigned at Not on file Legal Sex Female 4:22 AM FLOUR BLENDER HELPER Gender Identity Not on file Sexual Orientation Not on file documented as of this encounter Plan of Treatment Not on file documented as of this encounter Visit Diagnoses Not on filedocumented in this encounter Care Teams Dater Assembler Relationship Specialty Start Date End Date Tom Dan NP [address] [place] [phone] PCP - General NURSE PRACTITIONER 08/16/12 documented as of this encounter
--- NOTE | 2025-08-30 00:07 | W.ED.NAVMDI ---
Documented by User: ANIKA Shaw 08/30/25 02:49 HPI - Nausea/Vomiting/Diarrhea General: Chief complaint: Nausea/Vomiting/Diarrhea Stated complaint: ABD PAIN Source: patient Mode of arrival: EMS Limitations: no limitations History of Present Illness: Patient is a 54 year old female with a past medical history significant for multiple comorbidities including neuropathy, MRSA bacteremia, rhabdomyolysis, recurrent acute kidney injury, cyclic vomiting, and a plethora of other pathologies (over 40 conditions listed on her HPI) who presents emergency department with intractable nausea and vomiting. Patient states nausea and vomiting started around [place] after drinking two peach shooters . She states since then she has not been able to hold anything down. She is complaining of abdominal pain. No diarrhea. Patient has been seen and admitted here several times for similar symptoms due to LEVY/rhabdomyolysis. Denies hematemesis. MD elicited complaint: nausea, vomiting and abdominal pain Onset (ago): day(s) Associated nausea: Yes Associated abdominal pain: Yes Location of pain: Epigastric Pain consistency: constant Severity: moderate Exacerbating factors: eating Relieving factors: none Associated symtoms: Reports nausea; Denies chest pain, dizziness, dysuria, fatigue, headache(s) or malaise Related Data Home Medications ?Medication ?Instructions ?Recorded ?Confirmed pantoprazole 40 mg tablet,delayed 40 mg PO BID 09/04/21 06/21/25 release aspirin 81 mg tablet,delayed 81 mg PO QPM 04/09/22 06/21/25 release amlodipine 10 mg tablet 10 mg PO QAM 05/14/23 06/21/25 metoprolol tartrate 37.5 mg tablet 37.5 mg PO BID 08/20/23 06/21/25 atorvastatin 40 mg tablet 80 mg PO QPM 10/05/24 06/21/25 ustekinumab 45 mg/0.5 mL 45 mg SUBCUT DIRECTED 12/01/24 06/21/25 subcutaneous syringe (Stelara) Previous Rx's ?Medication ?Instructions ?Recorded duloxetine 60 mg capsule,delayed 60 mg PO BID #60 caps 02/15/20 release (Cymbalta) silver sulfadiazine 1 % topical 1 applic topical BID #20 grams 02/03/25 cream (Silvadene) ibuprofen 800 mg tablet 800 mg PO TID PRN pain 1 month #90 04/20/25 tabs hydrocodone 5 mg-acetaminophen 325 1 tab PO Q6H PRN pain 4 days #16 05/10/25 mg tablet tabs tramadol 50 mg tablet 50 mg PO Q6H PRN pain #16 tabs 05/10/25 pregabalin 25 mg capsule (Lyrica) 25 mg PO DAILY #14 caps 05/14/25 cephalexin 500 mg capsule 500 mg PO TID #21 caps 05/26/25 Allergies Allergy/AdvReac Type Severity Reaction Status Date / Time clindamycin Allergy Severe Unconscious Verified 06/21/25 11:50 adhesive tape Allergy Intermediate rash, red Verified 06/21/25 11:50 codeine Allergy Unknown ALGY-Anaphy Verified 06/21/25 11:50 laxis paroxetine (From Paxil) Allergy Unconscious Verified 06/21/25 11:50 Review of Systems Const: Denies: fever(s), chills, body aches, fatigue or malaise Card: Denies: chest pain Resp: Denies: dyspnea GI: Reports: abdominal pain, nausea and vomiting; Denies: hematemesis or diarrhea : Denies: flank pain, dysuria or hematuria Musc: Denies: neck pain or back pain Skin/Breast: Denies: rash Neuro: Denies: headache(s), numbness in extremities, weakness in extremities, sensory changes or dizziness PFSH ED PFSH: Medical History Hypokalemia MRSA (methicillin resistant staph aureus) culture positive Dehydration Hyponatremia Primary osteoarthritis of left knee UTI (urinary tract infection) Metabolic acidosis Acute on chronic renal insufficiency Cyclical vomiting, intractable Sepsis LEVY (acute kidney injury) Cannabinoid hyperemesis syndrome Marijuana abuse Acute kidney injury Hypochloremic alkalosis Cyclical vomiting, intractable Osteomyelitis Hardware complicating wound infection Septic arthritis Postoperative anemia History of cardiovascular stress test (~10/2021) History of Holter monitoring (~12/2021) Baseline sinus rhythm, 50-129 bpm with average 79 bpm, one 4 beat run asymptomatic vtach Dyslipidemia Chronic kidney disease Cellulitis of toe of left foot GERD (gastroesophageal reflux disease) History of migraine Gout Cellulitis Nonunion after arthrodesis Pain in left ankle Pain in left foot High anion gap metabolic acidosis Cyclical vomiting Hepatitis B core antibody positive Surface antibody positive, surface antigen negative, HBV DNA and hepatitis b envelope Ag negative = equals past infection. Check LFTs q 3-6 months on biologic therapy. Repeat hepatitis serology if LFTs positive. Risk of reactivation. Primary osteoarthritis of right knee Tendinopathy of right rotator cuff DDD (degenerative disc disease), lumbosacral Cyclical vomiting Alcohol withdrawal Ileus Memory loss CVA (cerebral vascular accident) incidental finding on MR done for hearing loss, located in left cerebellar region on MRI performed early 2021 Elevated troponin GI bleed nsaid induced gastritis Intermittent palpitations Frozen shoulder syndrome Cannabinoid hyperemesis syndrome History of colon polyps tubular adenomas Hypertension Anxiety Plaque psoriasis High risk medication use biologic agent for psoriasis Psoriatic arthritis Major depressive disorder, recurrent, in partial remission Post-traumatic stress disorder, chronic Cannabis dependence, uncomplicated Surgical History Hx of knee surgery bilateral Hx laparoscopic cholecystectomy History of colonoscopy (~09/2021) History of hysterectomy History of ankle surgery multiple to left ankle History of shoulder surgery History of pelvic surgery History of eye surgery Has metal around eye orbit History of toe surgery multiple to left foot Family History Mother Stroke Psychiatric illness bipolar/depression Cancer Hypertension Hyperlipidemia Heart disease Migraines Father Cancer lung Heart disease Brother Psychiatric illness depression Other CAD (coronary artery disease) Diabetes Lung disease Social History Smoking and tobacco/nicotine status: current every day tobacco/nicotine user cigarettes [ Other cigarette details: Quarter to half pack a day] Alcohol intake: current Substance/Drug Use: current Substance/Drug use frequency: daily Physical Exam Const: COMMON NORMALS: average body habitus, patient oriented x3, no limitations, alert and well nourished GENERAL APPEARANCE: cooperative ORIENTATION/CONSCIOUSNESS: Yes awake, Yes oriented to person, Yes oriented to place and Yes oriented to time OTHER: chronically ill appearing, nauseous HENMT: COMMON NORMALS: normocephalic and atraumatic HEAD & SCALP: normal to inspection, normocephalic and atraumatic Eye: GENERAL EYE: appearance normal, both eyes and all related structures Neck/C-Spine: COMMON NORMALS: full ROM and no lymphadenopathy GENERAL: Yes normal visual inspection Resp: COMMON NORMALS: normal respiratory effort and clear to auscultation bilaterally AUSCULTATION: clear to auscultation bilaterally Cardio: COMMON NORMALS: regular rate and regular rhythm RATE: regular rate RHYTHM: regular rhythm GI: COMMON NORMALS: Normal to inspection, nondistended, normoactive bowel sounds present, Soft to palpation, No hepatosplenomegaly present and no masses INSPECTION: Yes normal to inspection AUSCULTATION: Yes normoactive bowel sounds PALPATION: Yes Soft to palpation, Yes Tenderness to palpation present (GI) (epigastric), No Guarding due to palpation present (GI), No Rigid due to palpation and Yes No hepatosplenomegaly present : COMMON NORMALS: Yes no CVA tenderness BLADDER/KIDNEY EXAM: Yes no CVA tenderness Back/Pelvis: COMMON NORMALS: no CVA tenderness, thoracic and lumbar spine normal to inspection and no thoracic nor lumbar tenderness Extremity: GENERAL: Yes normal exam except as noted Neuro: JUANY COMA SCALE: document GCS findings Juany coma scale eye opening: Spontaneous [place] coma scale verbal response: Orientated [place] coma scale motor response: Obey commands [place] coma scale total score: 15 COMMON NORMALS: patient oriented x3, moves all extremities, no focal motor deficits and no sensory deficits noted SENSORIUM/ORIENTATION: Yes alert, Yes oriented to person, Yes oriented to place and Yes oriented to time Skin: COMMON NORMALS: no rashes or lesions noted GENERAL SKIN EXAM: no rashes or lesions noted Course Consultations: Consultation #1: Dr. Garcia-accepts to obs Vital Signs: Vital signs: Vital Signs Temperature 99.1 F 08/29/25 23:36 Pulse Rate 88 08/30/25 04:02 Respiratory Rate 18 08/30/25 04:02 Blood Pressure 138/98 08/30/25 04:02 Pulse Oximetry 92 08/30/25 04:02 Oxygen Delivery Me thod Room Air 08/29/25 23:36 MDM - Nausea/Vomiting/Diarrhea Medical Decision Making Patient is a 55-year-old female here for nausea and vomiting. She has a longstanding history of cyclic vomiting syndrome/intractable nausea and vomiting and has been admitted here to the hospital several times. She did arrive tachycardic and mildly tachypneic and was actively dry heaving. She was complaining of upper abdominal pain. Her CT scan is unremarkable. She was given IV antiemetics including Reglan, Zofran as well as a GI cocktail and Protonix. She was found to be hypokalemic with a potassium of 2.7. IV potassium and fluids had been started but IV was lost. She is refusing PO potassium. She does have a white count of 18.87-this could be stress from vomiting over the past several days. Chemistry showing acute on chronic hyponatremia, hypokalemia, elevated gap at 25.7. LEVY with a creatinine of 1.7. Her lactic is normal. CPK mildly elevated at 356. Spoke to Dr. Haque who feels she probably will require admission. I spoke to hospitalist, Dr. Garcia who nicole admit. Medical Records I reviewed the patient's medical records. Lab Data I reviewed the patient's lab results. 08/29/25 23:53 08/29/25 23:53 Radiology Impressions Abdomen/Pelvis CT 08/30/25 00:36 IMPRESSION: 1. No acute abdominal pathologic process identified. 2. Minimal uncomplicated colonic diverticulosis. 3. Moderate age-appropriate degenerative spinal changes. Other chronic, posttraumatic and nonacute findings as described above. Laboratory Results WBC 18.87 10^3/uL (3.29-11.43) H 08/29/25 23:53 RBC 4.65 10^6/uL (3.85-5.65) 08/29/25 23:53 Hgb 14.30 g/dL (11.27-16.99) 08/29/25 23:53 Hct 40.0 % (36-47) 08/29/25 23:53 MCV 86.0 fl (85-98) 08/29/25 23:53 MCH 30.8 pg (27-33) 08/29/25 23:53 MCHC 35.8 g/dL (30-55) 08/29/25 23:53 RDW 13.2 % (12.1-15.1) 08/29/25 23:53 Plt Count 452 10^3/cmm (157-399) H 08/29/25 23:53 MPV 9.4 fL (7.4-10.4) 08/29/25 23:53 Neut % (Auto) 84.4 % 08/29/25 23:53 Lymph % (Auto) 8.2 % 08/29/25 23:53 [place] % (Auto) 6.5 % 08/29/25 23:53 Eos % (Auto) 0.1 % 08/29/25 23:53 Baso % (Auto) 0.2 % 08/29/25 23:53 Neut # (Auto) 15.93 10^3/uL (1.8-7.7) H 08/29/25 23:53 Lymph # (Auto) 1.6 10^3/uL (0.8-4.8) 08/29/25 23:53 [place] # (Auto) 1.2 10^3/uL (0.2-0.9) H 08/29/25 23:53 Eos # (Auto) 0.0 10^3/uL (0.0-0.8) 08/29/25 23:53 Baso # (Auto) 0.0 10^3/uL (0.0-0.1) 08/29/25 23:53 Nucleated RBC % (auto) 0 % 08/29/25 23:53 Nucleated RBCs # 0.0 /100WBC 08/29/25 23:53 Sodium 129 mmol/L (136-145) L 08/29/25 23:53 Potassium 2.7 mmol/L (3.5-5.1) L* 08/29/25 23:53 Chloride 81 mmol/L (98-107) L 08/29/25 23:53 Carbon Dioxide 25 mmol/L (22-29) 08/29/25 23:53 Anion Gap 25.7 (5-19) H 08/29/25 23:53 BUN 17 mg/dL (6-20) 08/29/25 23:53 Creatinine 1.7 mg/dL (0.5-0.9) H 08/29/25 23:53 GFR Calculation 31.0 mL/min (90-130) L 08/29/25 23:53 Glucose 166 mg/dL (65-115) H 08/29/25 23:53 Calculated Osmolality 273 mOsm/kg (285-295) L 08/29/25 23:53 Lactic Acid 1.9 mmol/L (0.5-2.2) 08/29/25 23:53 Calcium 10.7 mg/dL (8.5-10.5) H 08/29/25 23:53 Magnesium 1.9 mg/dL (1.7-2.3) 08/29/25 23:53 Total Bilirubin 1.0 mg/dL (0.15-1.2) 08/29/25 23:53 AST 29 U/L (0-32) 08/29/25 23:53 ALT 21 U/L (0-33) 08/29/25 23:53 Alkaline Phosphatase 138 U/L (35-105) H 08/29/25 23:53 Creatine Kinase 356 U/L (26-192) H* 08/29/25 23:53 Total Protein 9.2 g/dL (6.6-8.7) H 08/29/25 23:53 Albumin 5.2 g/dL (3.5-5.2) 08/29/25 23:53 Globulin 4.0 g/dL (1.3-4.6) 08/29/25 23:53 Lipase 32 U/L (13-60) 08/29/25 23:53 All radiology interpretation(s) finalized by discharge Discharge Plan Discharge Patient Disposition: Placed in Observation Clinical Impression: Intractable nausea and vomiting, Acute hypokalemia, LEVY (acute kidney injury) Coding Level of Care Code ED Trucksmith for Chg Fwd Documented by User: Marta Haque MD 08/30/25 04:09 HPI - Nausea/Vomiting/Diarrhea General: Chief complaint: Nausea/Vomiting/Diarrhea Stated complaint: ABD PAIN Related Data Home Medications ?Medication ?Instructions ?Recorded ?Confirmed pantoprazole 40 mg tablet,delayed 40 mg PO BID 09/04/21 06/21/25 release aspirin 81 mg tablet,delayed 81 mg PO QPM 04/09/22 06/21/25 release amlodipine 10 mg tablet 10 mg PO QAM 05/14/23 06/21/25 metoprolol tartrate 37.5 mg tablet 37.5 mg PO BID 08/20/23 06/21/25 atorvastatin 40 mg tablet 80 mg PO QPM 10/05/24 06/21/25 ustekinumab 45 mg/0.5 mL 45 mg SUBCUT DIRECTED 12/01/24 06/21/25 subcutaneous syringe (Stelara) Previous Rx's ?Medication ?Instructions ?Recorded duloxetine 60 mg capsule,delayed 60 mg PO BID #60 caps 02/15/20 release (Cymbalta) silver sulfadiazine 1 % topical 1 applic topical BID #20 grams 02/03/25 cream (Silvadene) ibuprofen 800 mg tablet 800 mg PO TID PRN pain 1 month #90 04/20/25 tabs hydrocodone 5 mg-acetaminophen 325 1 tab PO Q6H PRN pain 4 days #16 05/10/25 mg tablet tabs tramadol 50 mg tablet 50 mg PO Q6H PRN pain #16 tabs 05/10/25 pregabalin 25 mg capsule (Lyrica) 25 mg PO DAILY #14 caps 05/14/25 cephalexin 500 mg capsule 500 mg PO TID #21 caps 05/26/25 Allergies Allergy/AdvReac Type Severity Reaction Status Date / Time clindamycin Allergy Severe Unconscious Verified 06/21/25 11:50 adhesive tape Allergy Intermediate rash, red Verified 06/21/25 11:50 codeine Allergy Unknown ALGY-Anaphy Verified 06/21/25 11:50 laxis paroxetine (From Paxil) Allergy Unconscious Verified 06/21/25 11:50 [facility] ED PFSH: Medical History Hypokalemia MRSA (methicillin resistant staph aureus) culture positive Dehydration Hyponatremia Primary osteoarthritis of left knee UTI (urinary tract infection) Metabolic acidosis Acute on chronic renal insufficiency Cyclical vomiting, intractable Sepsis LEVY (acute kidney injury) Cannabinoid hyperemesis syndrome Marijuana abuse Acute kidney injury Hypochloremic alkalosis Cyclical vomiting, intractable Osteomyelitis Hardware complicating wound infection Septic arthritis Postoperative anemia History of cardiovascular stress test (~10/2021) History of Holter monitoring (~12/2021) Baseline sinus rhythm, 50-129 bpm with average 79 bpm, one 4 beat run asymptomatic vtach Dyslipidemia Chronic kidney disease Cellulitis of toe of left foot GERD (gastroesophageal reflux disease) History of migraine Gout Cellulitis Nonunion after arthrodesis Pain in left ankle Pain in left foot High anion gap metabolic acidosis Cyclical vomiting Hepatitis B core antibody positive Surface antibody positive, surface antigen negative, HBV DNA and hepatitis b envelope Ag negative = equals past infection. Check LFTs q 3-6 months on biologic therapy. Repeat hepatitis serology if LFTs positive. Risk of reactivation. Primary osteoarthritis of right knee Tendinopathy of right rotator cuff DDD (degenerative disc disease), lumbosacral Cyclical vomiting Alcohol withdrawal Ileus Memory loss CVA (cerebral vascular accident) incidental finding on MR done for hearing loss, located in left cerebellar region on MRI performed early 2021 Elevated troponin GI bleed nsaid induced gastritis Intermittent palpitations Frozen shoulder syndrome Cannabinoid hyperemesis syndrome History of colon polyps tubular adenomas Hypertension Anxiety Plaque psoriasis High risk medication use biologic agent for psoriasis Psoriatic arthritis Major depressive disorder, recurrent, in partial remission Post-traumatic stress disorder, chronic Cannabis dependence, uncomplicated Surgical History Hx of knee surgery bilateral Hx laparoscopic cholecystectomy History of colonoscopy (~09/2021) History of hysterectomy History of ankle surgery multiple to left ankle History of shoulder surgery History of pelvic surgery History of eye surgery Has metal around eye orbit History of toe surgery multiple to left foot Family History Mother Stroke Psychiatric illness bipolar/depression Cancer Hypertension Hyperlipidemia Heart disease Migraines Father Cancer lung Heart disease Brother Psychiatric illness depression Other CAD (coronary artery disease) Diabetes Lung disease Social History Smoking and tobacco/nicotine status: current every day tobacco/nicotine user cigarettes [ Other cigarette details: Quarter to half pack a day] Alcohol intake: current Substance/Drug Use: current Substance/Drug use frequency: daily Physical Exam Neuro: JUANY COMA SCALE: document GCS findings [place] coma scale total score: 15 Course Vital Signs: Vital signs: Vital Signs Temperature 99.1 F 08/29/25 23:36 Pulse Rate 88 08/30/25 04:02 Respiratory Rate 18 08/30/25 04:02 Blood Pressure 138/98 08/30/25 04:02 Pulse Oximetry 92 08/30/25 04:02 Oxygen Delivery Me thod Room Air 08/29/25 23:36 MDM - Nausea/Vomiting/Diarrhea Medical Decision Making Patient is a 55-year-old female here for nausea and vomiting. She has a longstanding history of cyclic vomiting syndrome/intractable nausea and vomiting and has been admitted here to the hospital several times. She did arrive tachycardic and mildly tachypneic and was actively dry heaving. She was complaining of upper abdominal pain. Her CT scan is unremarkable. She was given IV antiemetics including Reglan, Zofran as well as a GI cocktail and Protonix. She was found to be hypokalemic with a potassium of 2.7. IV potassium and fluids had been started but IV was lost. She is refusing PO potassium. She does have a white count of 18.87-this could be stress from vomiting over the past several days. Chemistry showing acute on chronic hyponatremia, hypokalemia, elevated gap at 25.7. LEVY with a creatinine of 1.7. Her lactic is normal. CPK mildly elevated at 356. Spoke to Dr. Haque who feels she probably will require admission. I spoke to hospitalist, Dr. Garica who nicole admit. ATTENDING PHYSICIAN ATTESTATION: I, Marta Haque MD, have discussed this patient with Vielka DONALDSON, reviewed labwork, imaging, and agree with the plan of care as hereby documented by PERRY. I did not independently interview or examine this patient. Lab Data 08/29/25 23:53 08/29/25 23:53 Radiology Impressions Abdomen/Pelvis CT 08/30/25 00:36 IMPRESSION: 1. No acute abdominal pathologic process identified. 2. Minimal uncomplicated colonic diverticulosis. 3. Moderate age-appropriate degenerative spinal changes. Other chronic, posttraumatic and nonacute findings as described above. Laboratory Results WBC 18.87 10^3/uL (3.29-11.43) H 08/29/25 23:53 RBC 4.65 10^6/uL (3.85-5.65) 08/29/25 23:53 Hgb 14.30 g/dL (11.27-16.99) 08/29/25 23:53 Hct 40.0 % (36-47) 08/29/25 23:53 MCV 86.0 fl (85-98) 08/29/25 23:53 MCH 30.8 pg (27-33) 08/29/25 23:53 MCHC 35.8 g/dL (30-55) 08/29/25 23:53 RDW 13.2 % (12.1-15.1) 08/29/25 23:53 Plt Count 452 10^3/cmm (157-399) H 08/29/25 23:53 MPV 9.4 fL (7.4-10.4) 08/29/25 23:53 Neut % (Auto) 84.4 % 08/29/25 23:53 Lymph % (Auto) 8.2 % 08/29/25 23:53 [place] % (Auto) 6.5 % 08/29/25 23:53 Eos % (Auto) 0.1 % 08/29/25 23:53 Baso % (Auto) 0.2 % 08/29/25 23:53 Neut # (Auto) 15.93 10^3/uL (1.8-7.7) H 08/29/25 23:53 Lymph # (Auto) 1.6 10^3/uL (0.8-4.8) 08/29/25 23:53 [place] # (Auto) 1.2 10^3/uL (0.2-0.9) H 08/29/25 23:53 Eos # (Auto) 0.0 10^3/uL (0.0-0.8) 08/29/25 23:53 Baso # (Auto) 0.0 10^3/uL (0.0-0.1) 08/29/25 23:53 Nucleated RBC % (auto) 0 % 08/29/25 23:53 Nucleated RBCs # 0.0 /100WBC 08/29/25 23:53 Sodium 129 mmol/L (136-145) L 08/29/25 23:53 Potassium 2.7 mmol/L (3.5-5.1) L* 08/29/25 23:53 Chloride 81 mmol/L (98-107) L 08/29/25 23:53 Carbon Dioxide 25 mmol/L (22-29) 08/29/25 23:53 Anion Gap 25.7 (5-19) H 08/29/25 23:53 BUN 17 mg/dL (6-20) 08/29/25 23:53 Creatinine 1.7 mg/dL (0.5-0.9) H 08/29/25 23:53 GFR Calculation 31.0 mL/min (90-130) L 08/29/25 23:53 Glucose 166 mg/dL (65-115) H 08/29/25 23:53 Calculated Osmolality 273 mOsm/kg (285-295) L 08/29/25 23:53 Lactic Acid 1.9 mmol/L (0.5-2.2) 08/29/25 23:53 Calcium 10.7 mg/dL (8.5-10.5) H 08/29/25 23:53 Magnesium 1.9 mg/dL (1.7-2.3) 08/29/25 23:53 Total Bilirubin 1.0 mg/dL (0.15-1.2) 08/29/25 23:53 AST 29 U/L (0-32) 08/29/25 23:53 ALT 21 U/L (0-33) 08/29/25 23:53 Alkaline Phosphatase 138 U/L (35-105) H 08/29/25 23:53 Creatine Kinase 356 U/L (26-192) H* 08/29/25 23:53 Total Protein 9.2 g/dL (6.6-8.7) H 08/29/25 23:53 Albumin 5.2 g/dL (3.5-5.2) 08/29/25 23:53 Globulin 4.0 g/dL (1.3-4.6) 08/29/25 23:53 Lipase 32 U/L (13-60) 08/29/25 23:53 Discharge Plan Discharge Patient Disposition: Placed in Observation Clinical Impression: Intractable nausea and vomiting, Acute hypokalemia, LEVY (acute kidney injury) Coding Level of Care Code ED Trucksmith for 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
[2025-08-30] MEDS: ondansetron 2 mg/ML SDV 2 mL 4 MG IVP ×2 (00:09→10:59)
[2025-08-30 00:21] LABS: Alanine Aminotransferase 21 U/L (0-33); Albumin Level 5.2 g/dL (3.5-5.2); Alkaline Phosphatase 138 U/L (35-105); Anion Gap 25.7 (5-19); Aspartate Amino Transferase 29 U/L (0-32); Blood Urea Nitrogen 17 mg/dL (6-20); Calcium 10.7 mg/dL (8.5-10.5); Carbon Dioxide 25 mmol/L (22-29); Chloride 81 mmol/L (98-107); Globulin 4.0 g/dL (1.3-4.6); Glucose 166 mg/dL (65-115); Lipase 32 U/L (13-60); Osmolality Calculated 273 mOsm/kg (285-295); Sodium 129 mmol/L (136-145); Total Protein 9.2 g/dL (6.6-8.7)
[2025-08-30 00:23] LABS: Lactic Sepsis W/Reflex 1.9 mmol/L (0.5-2.2)
[2025-08-30] MEDS: lidocaine 2% viscous 15 ML, aluminum-mag hydrox-simethicon 30 ML, sucralfate oral liq 1 GM PO (00:25)
[2025-08-30] MEDS: metoclopramide 5 mg/mL SDV 2 mL 10 MG IVP (00:26)
[2025-08-30] MEDS: morphine 4 mg/mL SDV 1 mL IVP (00:28)
[2025-08-30 00:30] LABS: Potassium 2.7 mmol/L (3.5-5.1)
--- NOTE | 2025-08-30 00:32 | ECG_ITS ---
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
--- NOTE | 2025-08-30 00:36 | CTR_ITS ---
PROCEDURE INFORMATION: Exam: CT Abdomen And Pelvis Without Contrast Exam date and time: 08/30/2025 1:12 AM Age: 55 years old Clinical indication: Pain and abnormal findings; Abnormal lab test; Abnormal kidney function lab tests and elevated wbc; Nausea and vomiting; Abdominal pain; Generalized; Prior surgery; Surgery date: 6+ months; Surgery type: Gb. Hysterectomy. Sacroplevic fixaion; Diffuse abd pain with n/v. Leukocytosis with velma. ; Additional info: Abdominal pain, n/v TECHNIQUE: Imaging protocol: Computed tomography of the abdomen and pelvis without contrast. Total images: 2 Radiation optimization: All CT scans at this facility use at least one of these dose optimization techniques: automated exposure control; mA and/or kV adjustment per patient size (includes targeted exams where dose is matched to clinical indication); or iterative reconstruction. COMPARISON: 1. CT abdomen pelvis wo con [id number] 01/11/2025 3:[address] abdomen pelvis wo con [id number] 10/05/2024 4:17 PM RADIATION DOSE METRICS: Total DLP (mGy-cm): 481.76 FINDINGS: Lungs: Insofar as lung bases are included within the field of view, no acute pathologic pulmonary process appreciated. Medial lingula demonstrates a small thin-walled pulmonary airspace 1.7 cm diameter not significantly changed compared with prior study. Heart: Normal heart size. No pericardial fluid collection or pathologic thickening. Diaphragm: Small hiatal hernia. Small hiatal hernia. Liver: Liver diffusely increased fat content/fatty infiltration. No focal highly suspicious hepatic lesions identified; subtle or isoattenuating/isointense lesions may be obscured. Gallbladder and biliary ducts: Cholecystectomy accounts for surgical clips in gallbladder fossa. No biliary tree dilation or retained stones appreciated. Pancreas: Pancreas of normal thickness and contour demonstrating no pathologic pancreatic duct dilatation. Spleen: Spleen normal in size and contour. No focal splenic mass identified. Adrenal glands: Once again, bilateral adrenal glands are enlarged and multilobulated (LEFT greater than RIGHT) without suspicious features; likely benign adenomatous hyperplasia. Kidneys and ureters: Likely benign right renal cyst(s) are present, requiring no further evaluation, measuring as large as 3.5 cm diameter and 2.2 cm diameter respectively. Stomach and bowel: No pathologic bowel distension or bowel wall thickening. Moderate burden of colonic stool without distension. Few scattered diverticuli throughout the nondistended colon without acute diverticulitis. Appendix: Normal appendix. Intraperitoneal space: Unremarkable. No free air. No significant fluid collection. Retroperitoneal space: Incidental retroperitoneal pelvic phleboliths. Vasculature: Scattered atherosclerotic vascular calcifications. No evidence of acute vascular pathology. Lymph nodes: Unremarkable. No enlarged lymph nodes. Urinary bladder: Bladder suboptimal distension limits evaluation likely accounting for uniform bladder wall thickening, unremarkable as visualized. Reproductive: Prior hysterectomy; vaginal cuff normal. No adnexal cysts or masses are identified. Bones/joints: Postoperative bilateral sacroiliac joint stabilization with transsacral hardware. Postoperative bilateral iliopubic ramus stabilization with trans-iliopubic fixation. Pubic symphysis moderate degenerative changes (osteitis pubis). Moderate generalized degenerative changes of the vertebral column, including multilevel osteophytes, degenerative disc height loss, and facet arthrosis, consistent with patient age. No intrinsic osseous abnormality identified. L5-S1 vacuum disc phenomenon and advanced degenerative facet arthrosis. Chronically fragmented left ischial tuberosity compatible with the chronic sequelae of remote prior joint tendon partial or full-thickness traumatic injury. LCDCP screw hardware crosses the left sacroiliac joint. 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 Soft tissues: Soft tissues are normal as visualized, demonstrating no masses or swelling/induration. Generalized mild bony proliferative enthesopathy of multiple tendon and ligament insertions, nonspecific. CT/CT abdomen pelvis wo con [id number] IMPRESSION: 1. No acute abdominal pathologic process identified. 2. Minimal uncomplicated colonic diverticulosis. 3. Moderate age-appropriate degenerative spinal changes. Other chronic, posttraumatic and nonacute findings as described above.
[2025-08-30] MEDS: potassium chloride oral liq 20 mEq/15 mL UDC 40 MEQ PO (00:38)
[2025-08-30 00:48] LABS: Magnesium 1.9 mg/dL (1.7-2.3)
[2025-08-30] MEDS: pantoprazole 40 mg SDV IVP (01:06)
--- NOTE | 2025-08-30 01:49 | PC.NURSE ---
Patient IV bothering her and swelling noted above site. nurse went into room at 0109 and noticed the swelling and removed line. patient requires ultrasound IV need to obtain access to restart potassium
--- NOTE | 2025-08-30 01:55 | PC.NURSE ---
nurse scanned potassium and went to start it but patient was vomiting. pushed medications for nausea and then patient began complaining of pain in arm accessed to be swollen removed and potassium pump was turned off. assessment reversed in computer will be started once ultrasound IV is obtained
[2025-08-30] MEDS: promethazine 25 mg/mL SDV 1 mL IM (02:03)
[2025-08-30] MEDS: lidocaine 1% 5 ML in potassium chloride premix 100 ML 52.5 ML IV (03:07)
--- NOTE | 2025-08-30 04:24 | PC.NURSE ---
Attempted to take patient to bathroom she could not urinate
--- NOTE | 2025-08-30 04:29 | PC.NURSE ---
patient push called light asking for nausea medication i spoke to dr. french who said she would review her chart and then enter an order
[2025-08-30] MEDS: LORazepam 2 mg/mL INJ 1 mL IVP (04:46)
--- NOTE | 2025-08-30 05:06 | PM.HP ---
Providers/Chief Complaint Admitting Physician: Gordon Garcia MD Primary Care Provider: Bucky Rogers MD Chief Complaint: ABD PAIN History of Present Illness Rachelle Mireles is a 55 year old female with a history significan for hypertension who presents with complaints of nausea and vomiting. She states the nause and vomiting have been present since Ethel. She says she has been having 4 vomiting episodes per day since onset. She reports red steak in the emesis but denies any fevers, ill contacts, or diarrhea. Previously had chest pain but this is resolved during my encounter. No recent odd foods. Medications/Allergies Home Medications ?Medication ?Instructions ?Recorded ?Confirmed ?Last Taken ?Type duloxetine 60 mg capsule,delayed 60 mg PO BID #60 caps 02/15/20 06/21/25 05/10/25 Rx release (Cymbalta) pantoprazole 40 mg tablet,delayed 40 mg PO BID 09/04/21 06/21/25 05/10/25 History release aspirin 81 mg tablet,delayed 81 mg PO QPM 04/09/22 06/21/25 01/10/25 History release amlodipine 10 mg tablet 10 mg PO QAM 05/14/23 06/21/25 05/10/25 History metoprolol tartrate 37.5 mg tablet 37.5 mg PO BID 08/20/23 06/21/25 05/10/25 History atorvastatin 40 mg tablet 80 mg PO QPM 10/05/24 06/21/25 05/05/25 History ustekinumab 45 mg/0.5 mL 45 mg SUBCUT DIRECTED 12/01/24 06/21/25 11/13/24 History subcutaneous syringe (Stelara) silver sulfadiazine 1 % topical 1 applic topical BID #20 grams 02/03/25 06/21/25 Unknown Rx cream (Silvadene) ibuprofen 800 mg tablet 800 mg PO TID PRN pain 1 month #90 04/20/25 06/21/25 Unknown Rx tabs hydrocodone 5 mg-acetaminophen 325 1 tab PO Q6H PRN pain 4 days #16 05/10/25 06/21/25 Unknown Rx mg tablet tabs tramadol 50 mg tablet 50 mg PO Q6H PRN pain #16 tabs 05/10/25 06/21/25 Unknown Rx pregabalin 25 mg capsule (Lyrica) 25 mg PO DAILY #14 caps 05/14/25 06/21/25 Unknown Rx cephalexin 500 mg capsule 500 mg PO TID #21 caps 05/26/25 06/21/25 Unknown Rx Allergies Allergy/AdvReac Type Severity Reaction Status Date / Time clindamycin Allergy Severe Unconscious Verified 06/21/25 11:50 adhesive tape Allergy Intermediate rash, red Verified 06/21/25 11:50 codeine Allergy Unknown ALGY-Anaphy Verified 06/21/25 11:50 laxis paroxetine (From Paxil) Allergy Unconscious Verified 06/21/25 11:50 PFSH Acute PFSH: Medical History (Updated 08/30/25 @ 02:49 by ANIKA Shaw) Hypokalemia MRSA (methicillin resistant staph aureus) culture positive Dehydration Hyponatremia Primary osteoarthritis of left knee UTI (urinary tract infection) Metabolic acidosis Acute on chronic renal insufficiency Cyclical vomiting, intractable Sepsis LEVY (acute kidney injury) Cannabinoid hyperemesis syndrome Marijuana abuse Acute kidney injury Hypochloremic alkalosis Cyclical vomiting, intractable Osteomyelitis Hardware complicating wound infection Septic arthritis Postoperative anemia History of cardiovascular stress test (~10/2021) History of Holter monitoring (~12/2021) Baseline sinus rhythm, 50-129 bpm with average 79 bpm, one 4 beat run asymptomatic vtach Dyslipidemia Chronic kidney disease Cellulitis of toe of left foot GERD (gastroesophageal reflux disease) History of migraine Gout Cellulitis Nonunion after arthrodesis Pain in left ankle Pain in left foot High anion gap metabolic acidosis Cyclical vomiting Hepatitis B core antibody positive Surface antibody positive, surface antigen negative, HBV DNA and hepatitis b envelope Ag negative = equals past infection. Check LFTs q 3-6 months on biologic therapy. Repeat hepatitis serology if LFTs positive. Risk of reactivation. Primary osteoarthritis of right knee Tendinopathy of right rotator cuff DDD (degenerative disc disease), lumbosacral Cyclical vomiting Alcohol withdrawal Ileus Memory loss CVA (cerebral vascular accident) incidental finding on MR done for hearing loss, located in left cerebellar region on MRI performed early 2021 Elevated troponin GI bleed nsaid induced gastritis Intermittent palpitations Frozen shoulder syndrome Cannabinoid hyperemesis syndrome History of colon polyps tubular adenomas Hypertension Anxiety Plaque psoriasis High risk medication use biologic agent for psoriasis Psoriatic arthritis Major depressive disorder, recurrent, in partial remission Post-traumatic stress disorder, chronic Cannabis dependence, uncomplicated Surgical History Hx of knee surgery bilateral Hx laparoscopic cholecystectomy History of colonoscopy (~09/2021) History of hysterectomy History of ankle surgery multiple to left ankle History of shoulder surgery History of pelvic surgery History of eye surgery Has metal around eye orbit History of toe surgery multiple to left foot Family History Mother Stroke Psychiatric illness bipolar/depression Cancer Hypertension Hyperlipidemia Heart disease Migraines Father Cancer lung Heart disease Brother Psychiatric illness depression Other CAD (coronary artery disease) Diabetes Lung disease Social History Smoking and tobacco/nicotine status: current every day tobacco/nicotine user cigarettes [ Other cigarette details: Quarter to half pack a day] Alcohol intake: current Substance/Drug Use: current Substance/Drug use frequency: daily Vitals/I&O/Wt Last Vital Signs Temp 99.1 F 08/29/25 23:36 Pulse 95 08/30/25 04:49 Resp 18 08/30/25 04:49 BP 168/125 08/30/25 04:49 Pulse Ox 95 08/30/25 04:49 O2 Del Method Room Air 08/30/25 04:49 Weight last 48 hrs Weight 68.039 kg Physical Exam Narrative: Accompanied by a visitor. Const: COMMON NORMALS: patient oriented x3 and alert GENERAL APPEARANCE: cooperative ORIENTATION/CONSCIOUSNESS: Yes awake HENMT: COMMON NORMALS: oropharynx normal Neck/C-Spine: COMMON NORMALS: no JVD Resp: COMMON NORMALS: normal respiratory effort and clear to auscultation bilaterally AUSCULTATION: clear to auscultation bilaterally Cardio: COMMON NORMALS: no JVD, regular rhythm, S1 normal heart sound present, S2 normal heart sound present and No murmurs present (Cardio) RHYTHM: regular rhythm HEART SOUNDS: S1 normal heart sound present and S2 normal heart sound present GI: COMMON NORMALS: Normal to inspection, nondistended, normoactive bowel sounds present, Soft to palpation and non-tender PALPATION: Yes Soft to palpation Extremity: COMMON NORMALS: no joint enlargement and no pedal edema Neuro: COMMON NORMALS: patient oriented x3 and moves all extremities SENSORIUM/ORIENTATION: Yes alert Skin: COMMON NORMALS: no rashes or lesions noted GENERAL SKIN EXAM: no rashes or lesions noted Data 08/29/25 23:53 08/29/25 23:53 A&P Assessment and plan 1. Intractable nausea and vomiting: - Supportive care with antiemetics and IVF 2. LEVY (acute kidney injury): - Continuous IVF 3. Acute hypokalemia: - Replete as needed PDMP PDMP Reviewed: Not Reviewed Attestations Medical Necessity Statement*: Patient anticipated to require greater than [facility] Coding Level of Care Code Acute Code for Chg Fwd Diagnoses Intractable nausea and vomiting R11.2 LEVY (acute kidney injury) N17.9 Acute hypokalemia E87.6
[2025-08-30] MEDS: heparin 5,000 unit/mL INJ 1 mL 5000 UNIT SUBCUT ×2 (06:30→21:43)
--- NOTE | 2025-08-30 08:59 | PC.PHAR ---
Patient states last meds taken were 08/26/25 . Patient is due for he Stegeyma todays 08/30/25 . Patient states she wont be getting it due to being sick.
[2025-08-30 11:39] LABS: Potassium 2.7 mmol/L (3.5-5.1)
[2025-08-30] MEDS: sodium chlor 0.9% + KCl 40 mEq 40 MEQ/1,000 ML BAG 100 MEQ IV ×2 (13:10→21:43)
[2025-08-30 20:15] LABS: Glucose Urine UA Negative (Normal); Nitrate Urine Negative (Negative); Specific Gravity, Urine 1.025 (1.005-1.030)
[2025-08-30 20:20] LABS: Add Urine Microscopic? YES
[2025-08-30 20:21] LABS: PCP Screen Urine Negative (Negative)
[2025-08-30 20:54] LABS: UA Slide Review UA Slide Review Perf
[2025-08-31] VITALS: BP 159/102; PULSE 74; TEMP 36.9; O2SAT 98
[2025-08-31 04:00] VITALS: BP 136/93; PULSE 81; RESP 17; TEMP 36.6; O2SAT 97
[2025-08-31] MEDS: ondansetron 2 mg/ML SDV 2 mL 4 MG IVP (04:50)
[2025-08-31] MEDS: heparin 5,000 unit/mL INJ 1 mL 5000 UNIT SUBCUT (04:51)
[2025-08-31 07:18] LABS: Anion Gap 16.0 (5-19); Carbon Dioxide 24 mmol/L (22-29); Chloride 98 mmol/L (98-107); Potassium 5.0 mmol/L (3.5-5.1); Sodium 133 mmol/L (136-145)
[2025-08-31 07:19] LABS: Blood Urea Nitrogen 19 mg/dL (6-20); Calcium 8.8 mg/dL (8.5-10.5); Glucose 93 mg/dL (65-115); Osmolality Calculated 278 mOsm/kg (285-295)
[2025-08-31 07:20] LABS: Hematocrit 37.5 % (36-47); Hemoglobin 12.40 g/dL (11.27-16.99); Mean Corpuscular HGB Conc 33.1 g/dL (30-55); Mean Corpuscular Hemoglobin 31.0 pg (27-33); Mean Corpuscular Volume 93.8 fl (85-98); Nucleated Red Blood Cells % 0 %; Platelet Count 356 10^3/cmm (157-399); Red Blood Count 4.00 10^6/uL (3.85-5.65); White Blood Count 11.98 10^3/uL (3.29-11.43)
[2025-08-31] MEDS: sodium chlor 0.9% + KCl 40 mEq 40 MEQ/1,000 ML BAG 100 MEQ IV (07:54)
[2025-08-31 08:00] VITALS: BP 142/91; PULSE 68; RESP 17; TEMP 36.5; O2SAT 96
[2025-08-31 08:19] LABS: Magnesium 2.1 mg/dL (1.7-2.3)
--- NOTE | 2025-08-31 09:51 | PC.CHAP ---
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 apprentice visit [] Patient/Family/Request visit [] Outpatient visit [] Follow-up visit [] Physician referral [] Code/Alert [x] Routine visit [] Staff referral [] Actively dying [] Patient sleeping [] Family support [] [] Out of room [] Palliative care [] [] Receiving care in room [] Pre-surgical visit [] Trauma [] Long length of stay [] ICU visit [] Other: Relational/Emotional Strength [x] Patient feels connected with others/family/visitors/staff [] Distress [] Loneliness/isolation [] Abandonment Spirituality of Patient [x] Person of Ceci [] Attends Rastafari of their Ceci [x] Believes in Prayer [] Reads Bible or Adventism materials [] There are Spiritual issues to be addressed Disk Grinder Interventions [x] Prayer [x] Active listening [] Non-anxious presence [x] Spiritual/emotional support [] Crisis/trauma care [] Spiritual counseling [] Bereavement support [] Provided bereavement packet [] Provided Bible/devotional materials [] Provided toy/stuffed animal, coloring book to patient or family member [] Provided Communion [] Anointing/Kimberly [] Salvation [x] Completed spiritual assessment [] Other: Impact on Illness or Injury [] Angry [] Fearful [] Anxious [] Often cries [] Exhaustion [] Unable to work [] Unable to attend cheondoism [] Unable to walk/stand [] Unable to read [] Unable to drive [] Unable to eat/drink [] Unable to sleep [] Unable to be with family [] Patient intubated [] Other: Summary Time spent with patient 5 min
[2025-08-31 11:38] VITALS: BP 132/85; PULSE 66; RESP 17; TEMP 36.4; O2SAT 96
--- NOTE | 2025-08-31 13:00 | PM.DCS ---
Discharge Providers Date of Admission: 08/30/25 03:14 Date of Discharge: August 31, 2025 Attending Provider at Admission: Gordon Garcia MD Attending Provider at Discharge: Delia De Anda NP Primary Care Provider: Bucky Rogers MD Diagnoses at Discharge Discharge Diagnosis 1. Intractable nausea and vomitin. LEVY (acute kidney injury): 3. Acute hypokalemia: Reason for Visit Reason for Visit: ABD PAIN Brief History: Admission: Rachelle Mireles is a 55 year old female with a history significan for hypertension who presents with complaints of nausea and vomiting. She states the nause and vomiting have been present since Ethel. She says she has been having 4 vomiting episodes per day since onset. She reports red steak in the emesis but denies any fevers, ill contacts, or diarrhea. Previously had chest pain but this is resolved during my encounter. No recent odd foods. Hospital Course Hospital Course 1. Intractable nausea and vomiting: - Supportive care with antiemetics and IVF 2. LEVY (acute kidney injury): - Continuous IVF 3. Acute hypokalemia: - Replete as needed Discharge: Patient requested discharge home, much improved with no abdominal pain. Potassium within normal limits, improved creatinine at baseline. Patient discharges with as needed antiemetic and potassium x 1 week, advised to follow-up with primary care provider in 1 to 3 days. Patient states no nausea, vomiting, or diarrhea at time of discharge. All questions and concerns addressed with the patient prior to discharge. Physical Exam Const: COMMON NORMALS: patient oriented x3 and alert GENERAL APPEARANCE: cooperative ORIENTATION/CONSCIOUSNESS: Yes awake HENMT: COMMON NORMALS: oropharynx normal Neck/C-Spine: COMMON NORMALS: no JVD Resp: COMMON NORMALS: normal respiratory effort and clear to auscultation bilaterally AUSCULTATION: clear to auscultation bilaterally Cardio: COMMON NORMALS: no JVD, regular rhythm, S1 normal heart sound present, S2 normal heart sound present and No murmurs present (Cardio) RHYTHM: regular rhythm HEART SOUNDS: S1 normal heart sound present and S2 normal heart sound present GI: COMMON NORMALS: Normal to inspection, nondistended, normoactive bowel sounds present, Soft to palpation and non-tender PALPATION: Yes Soft to palpation Extremity: COMMON NORMALS: no joint enlargement and no pedal edema Neuro: COMMON NORMALS: patient oriented x3 and moves all extremities SENSORIUM/ORIENTATION: Yes alert Skin: COMMON NORMALS: no rashes or lesions noted GENERAL SKIN EXAM: no rashes or lesions noted Discharge Data Studies Completed and Pending Completed Studies During Hospitalization Category Date Time Status CT abdomen pelvis wo con [id number] Stat Cat Scan 08/30/25 00:36 Completed Radiology Impressions Abdomen/Pelvis CT 08/30/25 00:36 IMPRESSION: 1. No acute abdominal pathologic process identified. 2. Minimal uncomplicated colonic diverticulosis. 3. Moderate age-appropriate degenerative spinal changes. Other chronic, posttraumatic and nonacute findings as described above. Laboratory Results WBC 11.98 10^3/uL (3.29-11.43) H 08/31/25 06:19 RBC 4.00 10^6/uL (3.85-5.65) 08/31/25 06:19 Hgb 12.40 g/dL (11.27-16.99) 08/31/25 06:19 Hct 37.5 % (36-47) 08/31/25 06:19 MCV 93.8 fl (85-98) 08/31/25 06:19 MCH 31.0 pg (27-33) 08/31/25 06:19 MCHC 33.1 g/dL (30-55) 08/31/25 06:19 RDW 14.1 % (12.1-15.1) 08/31/25 06:19 Plt Count 356 10^3/cmm (157-399) 08/31/25 06:19 MPV 9.9 fL (7.4-10.4) 08/31/25 06:19 Neut % (Auto) 58.5 % 08/31/25 06:19 Lymph % (Auto) 27.9 % 08/31/25 06:19 Johnston % (Auto) 11.6 % 08/31/25 06:19 Eos % (Auto) 1.1 % 08/31/25 06:19 Baso % (Auto) 0.5 % 08/31/25 06:19 Neut # (Auto) 7.01 10^3/uL (1.8-7.7) 08/31/25 06:19 Lymph # (Auto) 3.3 10^3/uL (0.8-4.8) 08/31/25 06:19 Johnston # (Auto) 1.4 10^3/uL (0.2-0.9) H 08/31/25 06:19 Eos # (Auto) 0.1 10^3/uL (0.0-0.8) 08/31/25 06:19 Baso # (Auto) 0.1 10^3/uL (0.0-0.1) 08/31/25 06:19 Nucleated RBC % (auto) 0 % 08/31/25 06:19 Nucleated RBCs # 0.0 /100WBC 08/31/25 06:19 Sodium 133 mmol/L (136-145) L 08/31/25 06:19 Potassium 5.0 mmol/L (3.5-5.1) 08/31/25 06:19 Chloride 98 mmol/L (98-107) 08/31/25 06:19 Carbon Dioxide 24 mmol/L (22-29) 08/31/25 06:19 Anion Gap 16.0 (5-19) 08/31/25 06:19 BUN 19 mg/dL (6-20) 08/31/25 06:19 Creatinine 1.3 mg/dL (0.5-0.9) H 08/31/25 06:19 GFR Calculation 42.2 mL/min (90-130) L 08/31/25 06:19 Glucose 93 mg/dL (65-115) 08/31/25 06:19 Calculated Osmolality 278 mOsm/kg (285-295) L 08/31/25 06:19 Lactic Acid 1.9 mmol/L (0.5-2.2) 08/29/25 23:53 Calcium 8.8 mg/dL (8.5-10.5) 08/31/25 06:19 Magnesium 2.1 mg/dL (1.7-2.3) 08/31/25 06:19 Total Bilirubin 1.0 mg/dL (0.15-1.2) 08/29/25 23:53 AST 29 U/L (0-32) 08/29/25 23:53 ALT 21 U/L (0-33) 08/29/25 23:53 Alkaline Phosphatase 138 U/L (35-105) H 08/29/25 23:53 Creatine Kinase 356 U/L (26-192) H* 08/29/25 23:53 Total Protein 9.2 g/dL (6.6-8.7) H 08/29/25 23:53 Albumin 5.2 g/dL (3.5-5.2) 08/29/25 23:53 Globulin 4.0 g/dL (1.3-4.6) 08/29/25 23:53 Lipase 32 U/L (13-60) 08/29/25 23:53 Urine Color Yellow (Yellow) 08/30/25 19:57 Urine Appearance Cloudy (CLEAR) A 08/30/25 19:57 Urine pH 5.0 (5-7) 08/30/25 19:57 Ur Specific [place] 1.025 (1.005-1.030) 08/30/25 19:57 Urine Protein 2+ (Negative) A 08/30/25 19:57 Urine Glucose (UA) Negative (Normal) 08/30/25 19:57 Urine Ketones Trace (Negative) 08/30/25 19:57 Urine Blood Trace (Negative) A 08/30/25 19:57 Urine Nitrate Negative (Negative) 08/30/25 19:57 Urine Bilirubin Negative (Negative) 08/30/25 19:57 Urine Urobilinogen 1.0 mg/dL (Negative) 08/30/25 19:57 Ur Leukocyte Esterase Negative (Negative) 08/30/25 19:57 Urine RBC 0-2 /hpf (0-2) 08/30/25 19:57 Urine WBC 0-5 /hpf (0-5) 08/30/25 19:57 Ur Squamous Epith Cells 11-20 /hpf (0-5) H 08/30/25 19:57 Urine Bacteria 1+ /hpf (NONE) H 08/30/25 19:57 Hyaline Casts 50.89 /lpf 08/30/25 19:57 Fine Granular Casts 0-4 /lpf H 08/30/25 19:57 Urine Opiates Screen Positive ng/mL (Negative) H 08/30/25 19:57 Ur Barbiturates Screen Negative ng/mL (Negative) 08/30/25 19:57 Ur Phencyclidine Scrn Negative ng/mL (Negative) 08/30/25 19:57 Ur Amphetamines Screen Negative ng/mL (Negative) 08/30/25 19:57 U Benzodiazepines Scrn Positive ng/mL (Negative) H 08/30/25 19:57 Urine Cocaine Screen Negative ng/mL (Negative) 08/30/25 19:57 U Marijuana (THC) Screen Positive ng/mL (Negative) H 08/30/25 19:57 Vitals Last Vital Signs Temp 97.6 F 08/31/25 11:38 Pulse 66 08/31/25 11:38 Resp 17 08/31/25 11:38 BP 132/85 08/31/25 11:38 Pulse Ox 96 08/31/25 11:38 O2 Del Method Room Air 08/31/25 11:38 Discharge Plan Discharge Patient Disposition: Home Condition: Stable Prescriptions: New potassium chloride 8 mEq capsule, extended release 8 meq PO DAILY Qty: 7 0RF promethazine 12.5 mg tablet 12.5 mg PO TID PRN (Reason: nausea and vomiting) Qty: 14 0RF Rx Instructions: 3 doses during day; last dose no later than 4 hr before bedtime Continued ibuprofen 800 mg tablet 800 mg PO TID PRN (Reason: pain) 30 Days Qty: 90 0RF hydrocodone-acetaminophen 5-325 mg tablet 1 tab PO Q6H PRN (Reason: pain) 4 Days Qty: 16 0RF pantoprazole 40 mg tablet,delayed release (DR/EC) 40 mg PO BID amlodipine 10 mg tablet 10 mg PO QAM metoprolol tartrate 37.5 mg tablet 37.5 mg PO BID atorvastatin 80 mg tablet 80 mg PO DAILY duloxetine 60 mg capsule,delayed release(DR/EC) 60 mg PO BID Steqeyma 45 mg/0.5 mL syringe 45 mg SUBCUT Q3M aspirin 81 mg tablet,delayed release (DR/EC) 81 mg PO QPM atorvastatin 40 mg tablet 80 mg PO QPM Discharge Order = DC NOW: Discharge Order (Routine); Ordered 08/31/25 Ordered By: Delia De Anda Referrals: Bucky Rogers MD [Primary Care Provider, [facility]] - 09/03/25 8:45 am Discharge Diet: Usual diet Discharge Activity: Resume usual activity Patient Instructions: Promethazine (By mouth), Potassium Chloride (By mouth), Hypokalemia (GEN), Opioid Safety, Patient Portal & [facility] Instructions Discharge Attestations Time Spent in Discharge Care*: greater than 30 min Status at Discharge: Cognitive status at discharge: cognitively intact, Behavioral status at discharge: cooperative, can be uncooperative and independent in ADL's, Quality Metrics Clinical Quality Measures [ No reported AMI, CVA or VTE this stay] Coding Level of Care Code 82781 Diagnoses Intractable nausea and vomiting R11.2 LEVY (acute kidney injury) N17.9 Acute hypokalemia E87.6
[2025-08-31 14:24] VITALS: BP 132/85; PULSE 66; RESP 17; TEMP 36.4; O2SAT 96
--- OUTSIDE RECORDS SUMMARY | 2025-09-06 14:42 | XMS_ITS | Encounter Summary ---
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
--- OUTSIDE RECORDS SUMMARY | 2025-09-06 14:42 | XMS_ITS | Encounter Summary ---
Author Organization [facility] Address [address] 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
--- OUTSIDE RECORDS SUMMARY | 2025-09-06 14:42 | XMS_ITS | Encounter Summary ---
Author Organization [facility] Address [address] 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
--- OUTSIDE RECORDS SUMMARY | 2025-09-06 14:42 | XMS_ITS | Encounter Summary ---
Author Organization [facility] Address [address] 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
--- OUTSIDE RECORDS SUMMARY | 2025-09-06 14:42 | XMS_ITS | Encounter Summary ---
Author Organization [facility] Address [address] Attn: Epic Prelude ADT [place] [address] Care Team Providers Care Injection Molding Machine Offbearer Name Role Phone Tom Dan NP Primary Care Provider [phone] Encounter Details Date Type Department Care Team (Latest Contact Info) Description 08/20/1994 Emergency Fidencio Anne MD [address] [place] [phone] Social History Tobacco Use Types Packs/Day Years Used Date Smoking Tobacco: Never Assessed Comments Unknown Sex and Gender Information Value Date Recorded Sex Assigned at Not on file 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
--- OUTSIDE RECORDS SUMMARY | 2025-09-06 14:42 | XMS_ITS | Clinical Summary ---
Author Organization [facility] Address [address] [place] [address] Care Team Providers Care Patient Safety Sitter Name Role Phone Tom Dan GAS SPECIALIST Primary Care Provider [phone] Allergies Active Allergy Reactions Criticality Noted Date [...] on file Legal Sex Female 4:22 AM NUMERICAL CONTROL MACHINE MACHINIST Gender Identity Not on file Sexual Orientation [...] 08/17/2012, 1996 Medical Devices Implanted Type Area Solicitor Patent Device Identifier Shelf Expiration Date Model / Serial / Lot Hand/Wrist Internal Brace Sys [id number] - Sna Implanted:Qty: 1 on 06/07/2020 by Bucky Perez MD at [facility] [place] Left: Finger [employer] 04/01/2025 AR-8978-CP / NA / [id number] Insurance MEDICARE PART A AND B MEDICAID [place] Advance Directives For more information, please contact: [phone] * Full Code (Latest Code Status on File) Date Activated Date Inactivated Comments 08/16/2012 12:05 PM 08/17/2012 4:50 PM Care Teams Patient Safety Sitter Relationship Specialty Start Date End Date Tom Dan NP [address] [place] [phone] PCP - General NURSE PRACTITIONER 08/16/12
--- OUTSIDE RECORDS SUMMARY | 2025-09-06 14:42 | XMS_ITS | Encounter Summary ---
Author Organization [facility] Address [address] 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
--- OUTSIDE RECORDS SUMMARY | 2025-09-06 14:42 | XMS_ITS | Encounter Summary ---
Author Organization [facility] Address [address] [place] [address] Care Team Providers Care Pheresis Nurse Name Role Phone Tom Dan NP Primary Care Provider [phone] Encounter Details Date Type Department Care Team (Latest Contact Info) Description 02/17/2002 Outpatient Historical [facility] [place] [address] [phone] Jorge Cope MD HEMATEMESIS (Primary Dx) Social History Tobacco Use Types Packs/Day Years Used Date Smoking Tobacco: Never Assessed Comments Unknown Sex and Gender Information Value Date Recorded Sex Assigned at Not on file Legal Sex Female 4:22 AM ED SPECIAL EDUCATION TEACHER Gender Identity Not on file Sexual Orientation Not on file documented as of this encounter Plan of Treatment Not on file documented as of this encounter Visit Diagnoses Diagnosis Hematemesis- Primary documented in this encounter Care Teams Pheresis Nurse Relationship Specialty Start Date End Date Tom Dan NP [address] [place] [phone] PCP - General NURSE PRACTITIONER 08/16/12 documented as of this encounter
--- OUTSIDE RECORDS SUMMARY | 2025-09-06 14:42 | XMS_ITS | Patient Health Record ---
Author Organization [facility] Address [address] [place] [address] Care Team Providers Care Unix Systems Administrator Name Role Phone Bucky Rogers MD Primary Care Provider Conniea Compa Estevez Unavailable [phone] Reason For Referral No Information Medications Medication SIG (Take, Route, Frequency, Duration) Notes Start Date End Date Status Vitamin D *[facility]* Active Lovenox *[facility]f or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) Other abnormal findings on blood examination (790.99) 05/14/20 18 Problem resolved confirmed [id number]- Problem Long-term drug therapy (156275831) Patient visit for shelter (current) drug use; other (V58.69) 04/25/20 18 Problem resolved confirmed [id number]- Problem Urinary tract infection (01979455) Urinary tract infection (595.0) 04/25/20 18 Problem resolved confirmed [id number]- Problem Heart murmur (61737221) Cardiac murmur (785.2) 04/25/20 18 Problem resolved confirmed [id number]- Problem Exposure to communicable disease (794326783) Contact with or exposure to communicable diseases, unspecified (V01.9) 04/25/20 18 Problem resolved confirmed [id number]- Problem Periumbilical abdominal mass (789.35) 04/25/20 18 Problem resolved confirmed [id number] 911- Plan Of Treatment No Information Insurance Providers Payer Name Payer Address Payer Phone Subscriber Number Group Number Insured Name Patient Relationship to Insured Coverage Start Date Coverage End Date [facility] Commercial [address] [phone] [id number] Rachelle Mireles Self - patient is the insured [place] Medicaid [address] [place] [address] [id number] Rachelle Mireles Self - patient is the insured Medical (General) History Surgical History Surgery Date(Month/Year) Ankle surgery Biceps tendon repair Collar Bone surgery Eye surgery Knee Surgery Pelvic surgery
--- OUTSIDE RECORDS SUMMARY | 2025-09-06 14:42 | XMS_ITS | Encounter Summary ---
Author Organization [facility] Address [address] [place] [address] Care Team Providers Care Assistant Finance Director Name Role Phone Tom Dan NP Primary Care Provider [phone] Encounter Details Date Type Department Care Team (Latest Contact Info) Description 08/09/1999 Outpatient Historical [facility] [place] [address] [phone] Paola Dwyer NO ADDRESS ON FILE Headache(784.0) (Primary Dx); Nonallopathic lesion of abdomen and other sites, not elsewhere classified; Nonallopathic lesion of rib cage, not elsewhere classified Social History Tobacco Use Types Packs/Day Years Used Date Smoking Tobacco: Never Assessed Comments Unknown Sex and Gender Information Value Date Recorded Sex Assigned at Not on file Legal Sex Female 4:22 AM TEAR DOWN MATCHER Gender Identity Not on file Sexual Orientation Not on file documented as of this encounter Plan of Treatment Not on file documented as of this encounter Visit Diagnoses Diagnosis Headache(784.0)- Primary Headache Nonallopathic lesion of abdomen and other sites, not elsewhere classified Nonallopathic lesion of rib cage, not elsewhere classified documented in this encounter Care Teams Assistant Finance Director Relationship Specialty Start Date End Date Tom Dan NP [address] [place] [phone] PCP - General NURSE PRACTITIONER 08/16/12 documented as of this encounter
--- OUTSIDE RECORDS SUMMARY | 2025-09-06 14:42 | XMS_ITS | Encounter Summary ---
Author Organization [facility] Address [address] [place] [address] Care Team Providers Care Accounts Receivable Accountant Name Role Phone Tom Dan CONSTRUCTION PROJECT ASSISTANT Primary Care Provider [phone] Encounter Details Date Type Department Care Team (Late st Contact Info) Description 10/12/2007 Emergency [facility] Emergency Department [address] 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
--- OUTSIDE RECORDS SUMMARY | 2025-09-06 14:42 | XMS_ITS | Encounter Summary ---
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
--- OUTSIDE RECORDS SUMMARY | 2025-09-06 14:42 | XMS_ITS | Clinical Summary ---
Author Organization [facility] Address [address] [place] [address] Care Team Providers Care Banquet Attendant Name Role Phone Ni Tom Todd BEAN Primary Care Provider [phone] Allergies Active Allergy Reactions Criticality Noted Date [...] on file Legal Sex Female 3:07 PM MENTAL HEALTH CLINICIAN Gender Identity Not on file Sexual Orientation [...] 08/17/2012, 1996 Medical Devices Implanted Type Area Retail Brand Ambassador Device Identifier Shelf Expiration Date Model / Serial / Lot Hand/Wrist Internal Brace Sys [id number]-[id number] - Sna Implanted:Qty: 1 on 06/07/2020 by Bucky Perez MD [place] Left: Finger [employer] 04/01/2025 AR-8978-CP / NA / [id number] Insurance MEDICARE PART A AND B MEDICAID [place] Advance Directives For more information, please contact: [phone] * Full Code (Latest Code Status on File) Date Activated Date Inactivated Comments 03/04/2012 12:26 PM 03/04/2012 6:14 PM Care Teams Banquet Attendant Relationship Specialty Start Date End Date Tom Dan NP [address] [place] [phone] PCP - General NURSE PRACTITIONER 08/16/12
== END 2025-08-31 14:25 | disposition home or self-care (01) ==
LOC: ER 08-30 04:01 → ER IP 08-30 07:18 → MEDSURG 08-31 13:00 → ER IP 09-06 13:40 → MEDSURG 09-06 13:40
PROVIDERS: Admitting Provider Family Medicine; Emergency Provider Physician Assistant; PCP Family Medicine; Visit Provider Registered Nurse
DX: R11.2 Nausea with vomiting, unspecified (principal); N17.9 Acute kidney failure, unspecified; E87.6 Hypokalemia; I12.9 Hypertensive chronic kidney disease with stage 1 through stage 4 chronic kidney disease, or unspecified chronic kidney disease; N18.9 Chronic kidney disease, unspecified; Z79.82 Long term (current) use of aspirin; K21.9 Gastro-esophageal reflux disease without esophagitis; Z79.891 Long term (current) use of opiate analgesic; Z86.14 Personal history of Methicillin resistant Staphylococcus aureus infection; Z86.73 Personal history of transient ischemic attack (TIA), and cerebral infarction without residual deficits; F41.9 Anxiety disorder, unspecified; F33.41 Major depressive disorder, recurrent, in partial remission; F43.12 Post-traumatic stress disorder, chronic; F17.210 Nicotine dependence, cigarettes, uncomplicated; Z80.1 Family history of malignant neoplasm of trachea, bronchus and lung; Z80.9 Family history of malignant neoplasm, unspecified; Z82.49 Family history of ischemic heart disease and other diseases of the circulatory system
CPT/HCPCS: 36415; 74176; 80048; 80053; 80306; 81001; 82550; 83605; 83690; 83735; 84132; 85025; 93005; 96365; 96366; 96372; 96375; 99285; G0378; J0780; J1644; J2060; J2270; J2405; J2470; J2550; J2765; J3480; J7030; J9999